=== PATIENT | male | born 1940 | race Caucasian/White ===

== ENCOUNTER → 2016-09-28 | Outpatient (CLI) | payer BC ==
[~2016-09-28] MED LIST: ACLI1AER3 INH; AFRINWC; ALBINS/ INH; ALBU0.08 INH; ALBUAER19 INH; AMIO200T PO; AMOX875T PO; APIX1TAB3 PO; ARFO15NE INH; ASPEC81 PO; ASPI81TA28 PO; BRVIN INH; CEPH500C PO; CHOL1TAB42 PO; CHOL200010 PO; DXY100 PO; ESCI10TA17 PO; ESCI5TAB PO; FEXO1TAB46 PO; FLM4 PO; FURO-85 PO; GFNSR600 PO; GLC/500 PO; GLIM1TAB2 PO; GLUCTAB18 PO; HYDR-5688 PO; LEVO75TA5 PO; MCRK20 PO; MGNO400 PO; MOME6000 NAE; MRLP17X PO; MULTTAB5 PO; NSNN50 NAE; OMEP20TA PO; OXGN; OXYC1TAB3 PO; PHEN-1042 PO; PLMINSR25 INH; POLY1POW2 PO; POTTAB2 PO; PRD20 PO; PRED-301 PO; PRED10TA PO; PRVHFAIN INH; SIMV80TA2 PO; SYN75 PO; TAMS0.4C38 PO
--- NOTE | 2016-09-28 15:55 | DIAGNOSTIC IMAGING REPORT ---
TWO VIEW CHEST CLINICAL HISTORY: Cough. Dyspnea. FINDINGS: PA and lateral chest radiographs are compared to study dated 12/09/2015 and correlated with chest CT dated 12/01/2015. The PA view is degraded by patient rotation. The heart is enlarged and there is atherosclerotic calcification of the thoracic aorta. The pulmonary vasculature is noncongested. Mild chronic interstitial thickening and scarring at the right lung base are similar to previous. There is a small right pleural effusion. The lungs and pleural spaces are otherwise clear. There is no pneumothorax. The skeletal structures are osteopenic. Degenerative change is noted throughout the thoracic spine. IMPRESSION: 1. Cardiomegaly without radiographic evidence of congestive failure. 2. A small right pleural effusion with chronic change at the right lung base is similar to previous. 3. There is no airspace consolidation typical for pneumonia. Electronically signed by: Fausto Donovan M.D. 09/28/2016 3:53 PM Dictated Date/Time: 09/28/2016 3:51 PM
== END | disposition home or self-care (01) ==
LOC: C.RAD 15:13
PROVIDERS: ATTEND Internal Medicine Pulmonary Disease
DX: R05 Cough (principal)

== ENCOUNTER 2016-09-29 14:11 | Inpatient (IN) | payer BC, OTHER ==
[2016-09-29] VITALS (11 sets, daily range): BP systolic 120–133; BP diastolic 51–70; PULSE 74–87; TEMP 36.5–37; O2SAT 94–99; Ht 182.9 cm; Wt 83.6 kg
[~2016-09-29] VITALS: Ht 182.9 cm; Wt 83.6 kg
[~2016-09-29 14:11] MED LIST changes: -ALBINS/ INH; -ARFO15NE INH; -ASPEC81 PO; -ASPI81TA28 PO; -CEPH500C PO; -CHOL200010 PO; -DXY100 PO; -ESCI10TA17 PO; -FEXO1TAB46 PO; -FLM4 PO; -FURO-85 PO; -GFNSR600 PO; -GLC/500 PO; -HYDR-5688 PO; -LEVO75TA5 PO; -MCRK20 PO; -MGNO400 PO; -MOME6000 NAE; -MULTTAB5 PO; -OMEP20TA PO; -OXGN; -POLY1POW2 PO; -POTTAB2 PO; -PRD20 PO; -PRED-301 PO; -PRVHFAIN INH; -SIMV80TA2 PO; -SYN75 PO
[2016-09-29 15:46] LABS: INR 1.1 (0.9-1.1); PROTHROMBIN TIME (PATIENT) 11.3 SECONDS (9.0-12.0)
[2016-09-29] MEDS ORDERED: ARFO15NE INH (16:00)
[2016-09-29] MEDS ORDERED: ALBINS/ INH (16:00)
[2016-09-29] MEDS ORDERED: CHOL200010 PO (16:00)
[2016-09-29] MEDS ORDERED: POLY1POW2 PO (16:00)
[2016-09-29] MEDS ORDERED: MOME6000 NAE (16:00)
[2016-09-29] MEDS ORDERED: PRVHFAIN INH (16:00)
[2016-09-29] MEDS ORDERED: MULTTAB5 PO (16:41)
[2016-09-29] MEDS ORDERED: FEXO1TAB46 PO (16:41)
[2016-09-29] MEDS ORDERED: GLC/500 PO (16:49)
[2016-09-29] MEDS ORDERED: OMEP20TA PO (16:53)
[2016-09-29] MEDS ORDERED: FURO-85 PO (17:02)
[2016-09-29] MEDS ORDERED: ONDANSETRON INJ 2 MG/ML 2 ML VIAL IV PRN (17:15)
[2016-09-29] MEDS ORDERED: POLYETHYLENE (MIRALAX) 17 GM PACK PO PRN (17:15)
[2016-09-29] MEDS ORDERED: ALBUTEROL 0.083% NEBU SOLN 3 ML VIAL INH PRN (17:15)
[2016-09-29] MEDS ORDERED: BUDESONIDE 0.25 MG/2 ML VIAL (PULMICORT) INH PRN (17:15)
[2016-09-29] MEDS ORDERED: ALBUTEROL HFA 8 GM INHALER INH PRN (17:15)
[2016-09-29] MEDS ORDERED: DEXTROSE 50% 50 ML SYR IV PRN (17:15)
[2016-09-29] MEDS ORDERED: GLUCOSE 40% GEL 15 GM TUBE PO PRN (17:15)
[2016-09-29] MEDS ORDERED: MAGNESIUM HYDROXIDE SUSP 30 ML UDC PO PRN (17:15)
[2016-09-29] MEDS ORDERED: GLUCAGON FOR INJ 1 MG VIAL SQ PRN (17:15)
[2016-09-29] MEDS ORDERED: FUROSEMIDE 20 MG TAB PO PRN (17:15)
[2016-09-29] MEDS ORDERED: ACETAMINOPHEN 325 MG TAB PO PRN (17:15)
[2016-09-29] MEDS ORDERED: FLUTICASONE PROPIONATE NA SPR 16 GM BTL NAE PRN (17:15)
[2016-09-29] MEDS ORDERED: GLUCOSE 10 TABS/TUBE PO PRN (17:15)
[2016-09-29] MEDS ORDERED: FEXOFENADINE HCL 180 MG TAB PO PRN (17:15)
[2016-09-29] MEDS ORDERED: SIMV80TA2 PO (17:32)
--- NOTE | 2016-09-29 18:50 | History and Physical ---
History & Physical Date & Time of Service: Sep 29, 2016 at 18:47 Chief Complaint: Abnormal Labs Primary Care Physician: Artis Gunderson M.D. History of Present Illness Source: patient, family 76 y/o M with PMH of COPD, DM, atrial fibrillation, renal colic here after he was advised to go to the ER by his Arabic Linguist's office after his hgb was found to be 6.4 from lab work they ordered this morning. He states that he has been feeling "weak and fuzzy" for several weeks now with increased tiredness. He also felt lightheaded on several occasions about the same time. He however denied any chest pain, palpitations, he does have SOB and has a baseline h/o COPD . He denies any N/V/abdominal pain/BRBPR/melena/ hematuria. He takes eliquis for atrial fibrillation and last dose was this morning. He had a colonoscopy about an year or more ago at which time he had 10 polyps removed. He also has a h/o kidney stones but denied any hematuria. He has had diarrhea for couple weeks which was non bloody and is now resolved. Has a h/o heartburn and uses omeprazole. Past Medical/Surgical History Medical Problems: (1) Bronchitis Status: Chronic (2) Diabetes Status: Chronic (3) Heart disease Status: Chronic (4) Heart murmur Status: Chronic (5) Pneumonia Status: Chronic Family History FHx: cancer FHx: heart disease FHx: lung disease Social History Smoking Status: Never Smoker Drug Use: none Marital Status: Occupational Status: retired Immunizations History of Influenza Vaccine: Yes Influenza Vaccine Date: Sep 01, 2013 History of Tetanus Vaccine?: uptd History of Pneumococcal: Yes Pneumococcal Date: Sep 02, 2012 History of Hepatitis B Vaccine: No Multi-Drug Resistant Organisms History of MDRO: No Allergies Coded Allergies: Quinolones (Verified Allergy, Severe, ANAPHYLAXIS, 01/01/16) LISTED UNDER MD ORDERS, PT. VERIFIED ANAPHYLAXIS Formoterol (Verified Allergy, Intermediate, RASH, 01/01/16) LISTED UNDER MD ORDERS, PT. VERIFIED RASH ALLERGY Sulfa Antibiotics (Verified Allergy, Intermediate, severe red rash, ) Moxifloxacin (Verified Allergy, Unknown, swelling, 01/01/16) Ofloxacin (Verified Allergy, Unknown, unknown, 01/01/16) Home Medications Scheduled Aclidinium [place] (Tudorza Pressair), 1 PUFF INH BID Apixaban (Eliquis), 5 MG PO BID Arformoterol Tartrate (Brovana), 15 MCG INH BID Cholecalciferol (Vitamin D), 2,000 INTER.UNIT PO DAILY Escitalopram Oxalate (Lexapro), 2.5 MG PO HS Glimepiride (Glimepiride), 1 MG PO QAM Glucosamine-Chondroitin (Osteo Bi-Flex Regular Str), 1 TAB PO BID Metformin Hcl (Glucophage), 1,000 MG PO BID Multiple Vitamins W/ Minerals (Centrum), 1 TABLET PO QAM Omeprazole (Omeprazole), 20 MG PO QAM Prednisone Tab (Prednisone), 10 MG PO QAM Simvastatin (Zocor), 80 MG PO HS Scheduled PRN Albuterol (Ventolin Hfa), 2 PUFFS INH QID PRN for Shortness of Breath Albuterol Sulf (Proventil 0.083% 2.5MG/3ML), 2.5 MG INH Q4H PRN for SOB/Wheezing Budesonide (Pulmicort Respules 0.25MG/2ML), 2 ML INH BID PRN for Shortness of Breath Fexofenadine Hcl (Marilee), 180 MG PO DAILY PRN for Allergy Symptoms Furosemide (Lasix), 20 MG PO BID PRN for Fluid Retention/Swelling Mometasone Furoate (Nasal) (Mometasone Furoate), 2 SPRAYS VERONICA DAILY PRN for Nasal Congestion Oxymetazoline Hcl (Afrin 0.05% Nasal [place]), 1 SPRAY NA BID PRN for Nasal Congestion Polyethylene Glycol 3350 (Bulk (Polyethylene Glycol 3350), 17 GM PO DAILY PRN for Constipation Review of Systems Constitutional: + weakness, No chills, No fever Eyes: No worsening of vision ENT: + hearing loss Respiratory: + shortness of breath, No cough, No sputum Cardiovascular: No chest pain, No palpitations Abdomen: + diarrhea, No GI bleeding, No nausea, No pain, No vomiting Genitourinary - Male: No dysuria, No hematuria Psychiatric: No depression symptoms Endocrine: + fatigue Physical Exam Vital Signs Date Time Temp Pulse Resp B/P Pulse Ox O2 Delivery O2 Flow Rate FiO2 09/29/16 18:19 36.8 79 18 121/60 98 Room Air 09/29/16 18:18 80 23 98 09/29/16 18:13 121/60 09/29/16 17:58 121/60 09/29/16 17:48 82 18 99 09/29/16 17:43 37.0 84 18 121/60 98 09/29/16 17:43 128/59 09/29/16 17:28 124/60 09/29/16 17:27 36.9 80 16 124/60 99 09/29/16 17:18 83 25 98 09/29/16 17:13 36.8 82 18 120/51 94 09/29/16 17:13 126/56 09/29/16 17:11 84 22 99 09/29/16 17:10 120/51 09/29/16 16:41 84 26 99 09/29/16 16:11 81 20 97 09/29/16 15:41 81 19 96 09/29/16 15:29 138/64 09/29/16 15:21 81 09/29/16 15:11 81 17 100 09/29/16 15:05 83 22 138/64 100 Room Air 09/29/16 15:05 100 Room Air 09/29/16 15:04 138/64 09/29/16 14:18 36.5 85 16 114/63 100 Room Air General Appearance: WD/WN, no apparent distress Head: normocephalic Eyes: normal inspection ENT: normal ENT inspection, hearing grossly normal Neck: supple Respiratory/Chest: chest non-tender, no respiratory distress, no accessory muscle use Cardiovascular: regular rate, rhythm Abdomen/GI: normal bowel sounds, non tender, soft Extremities/Musculoskelatal: + pedal edema Neurologic/Psych: alert, normal mood/affect, oriented x 3 Skin: + pallor Diagnostics Laboratory Results Results Past 24 Hours Test 09/29/16 15:16 Range/Units Prothrombin Time 11.3 9.0-12.0 SECONDS Prothromb Time International Ratio 1.1 0.9-1.1 Activated Partial Thromboplast Time 24.7 21.0-31.0 SECONDS Partial Thromboplastin Ratio 1.0 Troponin I 0.016 0-0.045 ng/ml EKG Normal sinus rhythm Nonspecific ST and T wave abnormality Abnormal ECG When compared with ECG of 02-JAN-2016 09:27, No significant change Impression Assessment and Plan 76 y/o M with PMH of COPD, DM, atrial fibrillation, renal colic here with an abnormal Hemoglobin of 6.4 Acute blood loss anemia: likely GI bleed Hgb at 6.1, last hgb 01/02 was 11.5 - Hemoccult positive - NPO - Protonix 40 mg BID to cover any upper GI bleeding - GI consult - Stop eliquis - Troponin was 0.0116 - PRBC transfusion 2 units - Monitor H&H - Lasix 20 mg BID PRN Atrial fibrillation: - Rate control medication was stopped by wheel alignment technician per patint - hold eliquis COPD: stable - Continue Ventolin q6h and prednisone 10 mg daily - Proventil, Brovana, Pulmicort PRN T2DM: - Stop Metformin and Glimepiride - ISS Hyperlipidemia: Zocor 80 mg full code DVT prophylaxis: SCDS Hold chemical AC Dispo; Tele, transfusion in progress Level of Care Telemetry Resuscitation Status FULL RESUSCITATION VTE Prophylaxis VTE Risk Assessment Done? Y/N: Yes Risk Level: Moderate Given or contraindicated: SCD's Reviewed: Pt Seen/Exam by Me, EMS, RN Notes, HO Notes, Prior Records, Labs, RAD , EKG History Resident Physician Supervision Note: I was present with Dr. lentz during the history and exam. I discussed the case with the resident and agree with the findings and plan as documented in the note. Any exceptions or clarifications are listed here: 76 y/o M with PMH of COPD, DM, atrial fibrillation, renal colic here with an abnormal Hemoglobin of 6.4 Documented By: Maxim Silver Constitutional: denies: chills Respiratory: negative: cough Cardiovascular: denies chest pain Gastrointestinal/Abdominal: negative: abdominal pain Genitourinary: negative discharge Musculoskeletal: negative: back pain Neurological/Psych: negative: anxiety Hematologic/Lymphatic: negative: anemia General Appearance: WD/WN, no apparent distress Eye Exam: bilateral eye normal inspection Ears, Nose, Throat: hearing grossly normal, pharynx normal Neck: non-tender, supple Respiratory: lungs clear, normal breath sounds Cardiovascular: regular rate, rhythm, no edema Gastrointestinal: normal bowel sounds, soft Extremities: normal inspection, no calf tenderness Neurologic/Psychiatric: alert, oriented x 3 Skin Characteristics: normal color Assessment/Plan 76 y/o M with PMH of COPD, DM, atrial fibrillation, renal colic here with an abnormal Hemoglobin of 6.4 Acute blood loss anemia: likely GI bleed Hgb at 6.1, last hgb 01/02 was 11.5 Hemoccult positive NPO start Protonix 40 mg BID to cover any upper GI bleeding GI consult hold eliquis Troponin was 0.0116 PRBC transfusion 2 units Monitor H&H Lasix 20 mg BID PRN Atrial fibrillation: Rate control medication was stopped by wheel alignment technician per patint hold eliquis COPD: chronic, stable Continue Ventolin q6h and prednisone 10 mg daily Proventil, Brovana, Pulmicort PRN T2DM: Stop Metformin and Glimepiride ISS Hyperlipidemia: Zocor 80 mg full code DVT prophylaxis: SCDs Dispo; Tele case discussed with Dr Lentz PGY 1 time spent 45 min
[2016-09-29 19:01] LABS: HEMATOCRIT 20.2 % (42-52)
[2016-09-29] MEDS: ARFORMOTEROL TART 15MCG/2ML VIAL INH SCH (19:33)
[2016-09-29] MEDS: ALBUTEROL 0.083% NEBU SOLN 3 ML VIAL INH SCH (19:34)
[2016-09-29] MEDS: PANTOprazole INJ 40 MG in SYRINGE 0 ML IV SCH (21:35)
[2016-09-29] MEDS: SODIUM CHLORIDE 0.9% 1000ML 1,000 ML IV SCH (21:36)
[2016-09-29] MEDS: SIMVASTATIN 80 MG TAB PO SCH (22:05)
[2016-09-29] MEDS: INSULIN ASPART 100 UNITS/ML 3 ML PEN SC SCH (22:05)
[2016-09-29] MEDS: ESCITALOPRAM OXALATE 10 MG TAB PO SCH (22:05)
--- NOTE | 2016-09-29 22:16 | EMERGENCY ROOM VISIT NOTE ---
History Report prepared by Triston: Mckayla Mota Under the Supervision of: Dr. Epi Choe M.D. First contact with patient: 14:45 Chief Complaint: ABNORMAL LABS Stated Complaint: ABNORMAL LABS History of Present Illness The patient is a 76 year old male who presents to the Emergency Room with complaints of worsening weakness. He had blood work ordered by Dr. Castellon's office this morning, and was called early this afternoon by Ana Barragan PA-C , and told he was highly anemic. The patient states he takes daily Eliquis for a history of atrial fibrillation. He last took the Eliquis this morning. He states he feels "fuzzy and weak". His reports he has been unsteady on his feet for the past few weeks. The patient denies any recent fevers or chest pain. He is slightly short of breath, but notes this is chronic due to his history of COPD and reports Ana Barragan started him on a Prednisone taper. He admits to some recent dark stools, but denies the stool being black. His states he had diarrhea about 2 weeks ago, but it has resolved. The patient also denies any headaches, nosebleeds, hematuria or rectal bleeding. 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 A total of 10 systems reviewed and were otherwise negative. Past Medical & Surgical Medical Problems: (1) Anemia (2) Bronchitis (3) Diabetes (4) Heart disease (5) Heart murmur (6) kidney colic, nish kiendy stones (7) Pneumonia Family History FHx: cancer FHx: heart disease FHx: lung disease Social History Smoking Status: Never Smoker Alcohol Use: occasionally Drug Use: none Marital Status: Housing Status: lives with significant other Occupation Status: retired Current/Historical Medications Scheduled Aclidinium [place] (Tudorza Pressair), 1 PUFF INH BID Apixaban (Eliquis), 5 MG PO BID Arformoterol Tartrate (Brovana), 15 MCG INH BID Cholecalciferol (Vitamin D), 2,000 INTER.UNIT PO DAILY Escitalopram Oxalate (Lexapro), 2.5 MG PO HS Glimepiride (Glimepiride), 1 MG PO QAM Glucosamine-Chondroitin (Osteo Bi-Flex Regular Str), 1 TAB PO BID Metformin Hcl (Glucophage), 1,000 MG PO BID Multiple Vitamins W/ Minerals (Centrum), 1 TABLET PO QAM Omeprazole (Omeprazole), 20 MG PO QAM Prednisone Tab (Prednisone), 10 MG PO QAM Simvastatin (Zocor), 80 MG PO HS Scheduled PRN Albuterol (Ventolin Hfa), 2 PUFFS INH QID PRN for Shortness of Breath Albuterol Sulf (Proventil 0.083% 2.5MG/3ML), 2.5 MG INH Q4H PRN for SOB/Wheezing Budesonide (Pulmicort Respules 0.25MG/2ML), 2 ML INH BID PRN for Shortness of Breath Fexofenadine Hcl (Marilee), 180 MG PO DAILY PRN for Allergy Symptoms Furosemide (Lasix), 20 MG PO BID PRN for Fluid Retention/Swelling Mometasone Furoate (Nasal) (Mometasone Furoate), 2 SPRAYS VERONICA DAILY PRN for Nasal Congestion Oxymetazoline Hcl (Afrin 0.05% Nasal [place]), 1 SPRAY NA BID PRN for Nasal Congestion Polyethylene Glycol 3350 (Bulk (Polyethylene Glycol 3350), 17 GM PO DAILY PRN for Constipation Allergies Coded Allergies: Quinolones (Verified Allergy, Severe, ANAPHYLAXIS, 01/01/16) LISTED UNDER MD ORDERS, PT. VERIFIED ANAPHYLAXIS Formoterol (Verified Allergy, Intermediate, RASH, 01/01/16) LISTED UNDER MD ORDERS, PT. VERIFIED RASH ALLERGY Sulfa Antibiotics (Verified Allergy, Intermediate, severe red rash, ) Moxifloxacin (Verified Allergy, Unknown, swelling, 01/01/16) Ofloxacin (Verified Allergy, Unknown, unknown, 01/01/16) Physical Exam Vital Signs Date Time Temp Pulse Resp B/P Pulse Ox O2 Delivery O2 Flow Rate FiO2 09/29/16 17:11 84 22 99 09/29/16 17:10 120/51 09/29/16 16:41 84 26 99 09/29/16 16:11 81 20 97 09/29/16 15:41 81 19 96 09/29/16 15:29 138/64 09/29/16 15:21 81 09/29/16 15:11 81 17 100 09/29/16 15:05 83 22 138/64 100 Room Air 09/29/16 15:05 100 Room Air 09/29/16 15:04 138/64 09/29/16 14:18 36.5 85 16 114/63 100 Room Air Physical Exam Constitutional: Vital signs reviewed. Eyes: Pupils are equal round reactive to light. Conjunctiva are noninjected. ENT: Pharynx is clear without erythema or exudate. Mucous membranes are moist. Neck supple without meningeal signs. Respiratory: Clear to auscultation bilaterally. Breath sounds are equal bilaterally. Cardiovascular: Regular rate and rhythm. No rubs or gallops. GI: Soft, nondistended and nontender. Bowel sounds are present. Rectal: Guaiac positive brown stool, no gross blood. Musculoskeletal: No peripheral edema. No lower extremity tenderness. No CVA tenderness. Integumentary: No cyanosis. Neurological: The patient is awake and alert. No focal deficits. Psychiatric: Normal affect. Medical Decision & Procedures Laboratory Results 09/29/16 15:16 Test 09/29/16 15:16 Prothrombin Time 11.3 SECONDS (9.0-12.0) Prothromb Time International Ratio 1.1 (0.9-1.1) Activated Partial Thromboplast Time 24.7 SECONDS (21.0-31.0) Partial Thromboplastin Ratio 1.0 Troponin I 0.016 ng/ml (0-0.045) Laboratory results as reviewed by me. Medications Administered Medications (Trade) Dose Ordered Sig/[facility] Route Start Time Stop Time Status Last Admin Dose Admin Sodium Chloride (Nss 1000ml) 1,000 ml @ 50 mls/hr Q20H IV 09/29/16 17:06 10/29/16 17:05 09/29/16 21:36 50 MLS/HR ECG Indication: weakness Rate (beats per minute): 80 Rhythm: sinus rhythm Findings: 1st degree AV block, no ectopy, other (Limited due to baseline artifact) ED Course 1447: The patient was evaluated in room B10. A complete history and physical exam was performed. 1617: I discussed the patients case with Dr. Silver, [facility] Hospitalist. The patient will be further evaluated. 1655: I reevaluated the patient. He states the hospitalist has already evaluated him. He has no current complaints and is waiting on blood to come up from the blood bank. Medical Decision This is a 76-year-old male who presents with generalized weakness and shortness of breath with severe anemia. I did perform a limited focused review of portions of the patient's old chart on the electronic medical record. The patient had blood work at 1100 this morning and his Hemoglobin was 6.4. A previous Hemoglobin from December 2015 was 11.5. I did evaluate the patient as noted above. The patient is presenting with generalized weakness and shortness of breath. He had a hemoglobin today which was 6.4. He is on a Eliquis for atrial fibrillation and is guaiac positive with brown stool no gross blood on examination. IV access was established. The patient was placed on a continuous rn cardiac. I did order and personally review the patient's 12-lead EKG as described above. I did order and review the patient's blood work as noted in the electronic medical record. He is severely anemic. I did obtain verbal and written consent for blood transfusion. I did order a transfusion of 2 units packed RBCs. I did discuss the case with the hospitalist and special education case manager. The patient was admitted to the hospital. Consults Time Called: 1613 Consulting Physician: Dr. Silver [facility] Hospitalist Returned Call: 1617 I discussed the patients case with Dr. Silver [facility] Hospitalist. The patient will be further evaluated. Impression Primary Impression: Acute GI bleeding Additional Impressions: Symptomatic anemia Anticoagulated Critical Care I have personally spent greater than 30 minutes of critical care time in the direct management of this patient. This includes bedside care, interpretation of diagnostic studies, and testing, discussion with consultants, patient, and family members, and other required patient management activities. This 30 minutes is in excess of all separately billable procedures. Scribe Attestation The scribe's documentation has been prepared under my direct and personally reviewed by me in its entirety. I confirm that the note above accurately reflects all work, treatment, procedures, and medical decision making performed by me. Departure Information Dispostion Being Evaluated By Hospitalist Referrals Artis Gunderson M.D. (PCP) Patient Instructions [facility] Problem Qualifiers
[2016-09-29] MEDS ORDERED: NURSING VERBAL MED ORDER ONE (23:45)
[2016-09-29] MEDS ORDERED: NovoLOG PER UNIT CHARGE SC STA (23:48)
[2016-09-30] VITALS (16 sets, daily range): BP systolic 104–150; BP diastolic 62–73; PULSE 56–77; TEMP 36.4–36.8; O2SAT 95–98
[2016-09-30] MEDS: ALBUTEROL 0.083% NEBU SOLN 3 ML VIAL INH SCH ×4 (01:47→19:48)
[2016-09-30 01:48] LABS: HEMATOCRIT 24.2 % (42-52)
[2016-09-30] MEDS: ARFORMOTEROL TART 15MCG/2ML VIAL INH SCH ×2 (07:29→19:48)
[2016-09-30] MEDS: PANTOprazole INJ 40 MG in SYRINGE 0 ML IV SCH ×2 (08:08→20:37)
[2016-09-30] MEDS: INSULIN ASPART 100 UNITS/ML 3 ML PEN SC SCH ×4 (08:10→20:48)
[2016-09-30 08:43] LABS: HEMATOCRIT 27.8 % (42-52)
[2016-09-30 09:27] LABS: BUN/CREATININE RATIO 16.8 (10-20); CALCIUM 8.3 mg/dl (8.5-10.1); POTASSIUM 3.6 mmol/L (3.5-5.1)
[2016-09-30] MEDS: SODIUM CHLORIDE 0.9% 1000ML 1,000 ML IV SCH ×2 (13:11→22:16)
--- NOTE | 2016-09-30 13:33 | GASTROINTESTINAL CONSULTATION ---
DATE OF CONSULTATION: 09/30/2016 DATE OF CONSULTATION: 09/30/2016. ATTENDING PHYSICIAN: Dr. Platt. CONSULTING PHYSICIAN: Dr. Brooke. REASON FOR CONSULTATION: Anemia and heme positive stool. HISTORY OF PRESENT ILLNESS: Mr. Gibson is a 76-year-old male who I have seen previously and performed an upper endoscopy on 05/07/2012 at which time he was noted to have gastritis, hiatal hernia, and nonobstructing Schatzki's ring which was disrupted with cold forceps. He did have biopsies performed at that time which showed mild nonspecific chronic active esophagitis as well as chronic gastritis but no evidence of H. pylori. He also underwent a colonoscopy on 07/29/2015, at which time he was noted to have 10 sessile polyps removed in the rectum, sigmoid colon, transverse colon, ascending colon and cecum as well as some nonbleeding internal hemorrhoids. Pathology from his colonoscopy showed multiple tubular adenomas and a serrated adenoma and he had no other findings. He presented to the Department of Emergency Medicine on 09/29/2016 after he was noted to have a low hemoglobin from outpatient laboratory studies at his surgical coder's office where he was noted to have a hemoglobin of 6.4. He was advised by his pulmonary doctor to present to the ER. Upon arrival to the ER, he did have heme positive stool noted and was transfused with 3 units of packed red blood cells with good response to today's level of H\T\H of 8.8 and 27.8 . The patient states that he is feeling much better. He has not noted any bright red blood per rectum or hematemesis, though he has had dark stools. His , who accompanies him to this hospitalization, states that he has had some diarrhea as well as some general abdominal pain in the midepigastric region over the last month or so for which he has taken some Pepto-Bismol and states that of course his stools have been black from that. The patient states that his epigastric pain has been mild, rated as 3-4/10 in intensity, intermittent, occurring 4-5 times per week, nonradiating with no alleviating or exacerbating factors. Since his arrival to the ER, he was placed on Protonix 40 mg IV b.i.d. As an outpatient it should be noted that he does take Eliquis therapy 5 mg p.o. b.i.d. He denies any further complaints at this time including fevers, chills, nausea, vomiting, hematemesis, melena, hematochezia, chest pain, palpitations, shortness of breath, cough, dysuria, hematuria, arthralgia, myalgias, numbness or tingling in his extremities, skin rash or recent weight loss. He states that overall he is feeling improved. PAST MEDICAL HISTORY: Includes bronchitis, diabetes, pneumonia, history of atrial fibrillation, COPD, colon polyps, gastritis, GERD. PAST SURGICAL HISTORY: None. ALLERGIES: QUINOLONES, FORMOTEROL, SULFA ANTIBIOTICS, AVELOX, OFLOXACIN. MEDICATIONS AT PRESENT: Include prednisone 10 mg p.o. q.a.m., Lexapro 2.5 mg p.o. at bedtime, Zocor 80 mg p.o. at bedtime, Protonix 40 mg IV b.i.d., Ventolin 2.5 mg via nebulizer q. 6 hours p.r.n., Brovana 15 mcg via nebulizer twice daily p.r.n., milk of magnesia 30 mL p.o. q. 12 p.r.n. constipation, Zofran 4 mg IV q. 6 p.r.n. nausea, MiraLax 17 grams p.o. daily p.r.n. constipation, Ventolin inhaler p.r.n., budesonide Respules via nebulizer b.i.d. p.r.n. shortness of breath, Marilee 8180 mg p.o. daily, Lasix 20 mg p.o. b.i.d. p.r.n. fluid retention. SOCIAL HISTORY: He is accompanied by his to this visit. No tobacco, alcohol or illicit drug use. FAMILY HISTORY: Negative for GI malignancy or inflammatory bowel disease. REVIEW OF SYSTEMS: Negative x12 system review other than pertinent positives listed in the HPI. PHYSICAL EXAMINATION: VITAL SIGNS: Today include a temp of 36.7, pulse 77, respirations 16, blood pressure 124/69, pulse ox 96% on room air. GENERAL EXAMINATION: He is awake, cooperative in no acute distress. HEAD: Normocephalic, atraumatic. EYES: Pupils equally round. Extraocular muscles are intact. EARS, NOSE, THROAT: External evaluation of ears and nose are normal. Oropharynx is clear. NECK: Soft and supple. There is no JVD or lymphadenopathy. CHEST: Clear to auscultation bilaterally. CARDIOVASCULAR SYSTEM: Regular rate and rhythm. ABDOMEN: Soft, nontender, nondistended. Positive bowel sounds. There is no hepatosplenomegaly or stigmata of chronic liver disease. EXTREMITIES: No clubbing, cyanosis, or edema. LABORATORY STUDIES: From today include an H\T\H of 8.8 and 27.8. His sodium is 143, potassium 3.6, chloride 109, bicarbonate 23, BUN 17, creatinine 1.0, blood glucose 165, calcium 8.3, total bilirubin 0.3, AST 7, ALT 22, alkaline phosphatase of 51. IMPRESSION: This is a 76-year-old male with acute blood loss anemia with heme positive stool. He is having no overt GI bleeding at this time and has had an appropriate response to 3 units of packed red blood cells in transfusion. PLAN: At the present time, Mr. Gibson does not wish to undergo an invasive test such as an EGD or colonoscopy. I informed him that this may delay his diagnosis, though he states that he would rather not unless it is absolutely necessary. I informed him that we will keep him on Protonix 40 mg IV b.i.d. I also told him that if he has any overt GI bleeding I would strongly recommend that he undergo both an EGD and colonoscopy for further evaluation of his symptoms though at present he would like to see if his numbers improve with conservative measures. I will follow his clinical course and make further recommendations as needed. Once again, thank you for allowing me to participate in the care of this patient. If you have any further questions, please do not hesitate in contacting me.
--- NOTE | 2016-09-30 16:39 | Family Medicine Progress Note ---
Progress Note Date of Service Sep 30, 2016. Subjective no concerns no rectal bleeding Constitutional: No fever Respiratory: No shortness of breath Cardiovascular: No chest pain Objective Physical Exam General Appearance: no apparent distress Respiratory/Chest: lungs clear, no respiratory distress Cardiovascular: regular rate, rhythm Neurologic/Psychiatric: alert, oriented x 3 Skin: warm/dry Assessment and Plan 76 y/o M with PMH of COPD, DM, atrial fibrillation, renal colic here with an abnormal Hemoglobin of 6.4 Acute blood loss anemia with Hemoccult positive: likely GI bleed last hgb 01/02 was 11.5 - Protonix 40 mg BID to cover any upper GI bleeding - Holding eliquis - s/p PRBC transfusion 2 units - GI consulted - input appreciated - Patient declining endoscopy at this time - to have clears. - Monitor H&H Atrial fibrillation: - Rate control medication was stopped by auger operator per patint - hold eliquis COPD: stable - Continue Ventolin q6h and prednisone 10 mg daily - Proventil, Brovana, Pulmicort PRN T2DM: - Holding Metformin and Glimepiride - ISS Hyperlipidemia: Zocor 80 mg full code DVT prophylaxis: SCDS Hold chemical AC
[2016-09-30] MEDS: ESCITALOPRAM OXALATE 10 MG TAB PO SCH (20:37)
[2016-09-30] MEDS: SIMVASTATIN 80 MG TAB PO SCH (20:37)
[2016-10-01] VITALS (13 sets, daily range): BP systolic 119–152; BP diastolic 67–81; PULSE 57–80; TEMP 36.6–36.7; O2SAT 94–97
[2016-10-01] MEDS: ALBUTEROL 0.083% NEBU SOLN 3 ML VIAL INH SCH ×4 (02:06→19:43)
[2016-10-01] MEDS: INSULIN ASPART 100 UNITS/ML 3 ML PEN SC SCH ×4 (07:00→22:14)
[2016-10-01] MEDS: ARFORMOTEROL TART 15MCG/2ML VIAL INH SCH ×2 (07:02→19:43)
[2016-10-01] MEDS: PANTOprazole INJ 40 MG in SYRINGE 0 ML IV SCH ×2 (07:46→22:12)
[2016-10-01] MEDS: SODIUM CHLORIDE 0.9% 1000ML 1,000 ML IV SCH (07:46)
[2016-10-01 09:25] LABS: BASO % 0.2 %; BASO ABS # 0.02 K/uL (0-0.2); COMPLETE YES; EOS % 1.4 %; HEMATOCRIT 29.3 % (42-52); IG% 0.7 %; LYMPH % 13.4 %; LYMPH ABS # 1.65 K/uL (1.2-3.4); MEAN CELL VOLUME 82.8 fL (80-100); MEAN CORPUSCULAR HGB CONC 31.4 g/dl (32-36); MEAN PLATELET VOLUME 9.8 fL (7.4-10.4); MONO % 8.7 %; NEUT % 75.6 %; PLATELET COUNT 238 K/uL (130-400); RED BLOOD COUNT 3.54 M/uL (4.7-6.1); WHITE BLOOD COUNT 12.29 K/uL (4.8-10.8)
[2016-10-01 10:04] LABS: CALCIUM 8.2 mg/dl (8.5-10.1); CREATININE 0.97 mg/dl (0.60-1.40); POTASSIUM 3.3 mmol/L (3.5-5.1)
--- NOTE | 2016-10-01 13:56 | PROGRESS NOTE ---
DATE: 10/01/2016 GASTROINTESTINAL PROGRESS NOTE SEX: Male. RACE: . I had the pleasure of seeing Maninder Gibson at his bedside today. He states that he is feeling better today. He denies any fevers, chills, nausea, vomiting, hematemesis, melena or hematochezia. His H\T\H this morning was stable at 9.2 and 29.3 and he has had no overt GI bleeding per the patient or nursing staff. He is tolerating p.o. intake at this time. He denies any further complaints. PHYSICAL EXAMINATION: VITAL SIGNS: Temp 36.6, pulse 60, respirations 16, blood pressure 119/70, pulse ox 95% on room air. GENERAL: He is alert, oriented x3, cooperative, chronic ill appearing, in no acute distress. ABDOMEN: Soft, nontender, nondistended. Positive bowel sounds. There is no hepatosplenomegaly or stigmata of chronic liver disease. EXTREMITIES: No clubbing, cyanosis, or edema. LABORATORY STUDIES: Include a white blood cell count of 12.29, hemoglobin 9.2, hematocrit 29.3 and a platelet count of 238. IMPRESSION: This is a 76-year-old male with acute blood loss anemia, heme positive stool, but no overt gastrointestinal bleeding at present with stable hemoglobin. PLAN: At the present time, I would recommend that the patient undergo an upper endoscopy to rule out upper GI bleeding. He has agreed to this. We will continue him on Protonix 40 mg IV b.i.d. We will keep him n.p.o. after midnight, perform an EGD tomorrow and make further recommendations at that time. Once again, thanks for allowing me to participate in the care of this patient. If you have any further questions, please do not hesitate in contacting me.
--- NOTE | 2016-10-01 16:46 | Progress Note ---
Subjective Date of Service: Oct 01, 2016. Subjective no new concerns Problem List Medical Problems: (1) Acute GI bleeding Status: Acute (2) Anticoagulated Status: Acute (3) Calculus of right kidney Status: Acute (4) Hydronephrosis with urinary obstruction due to renal calculus Status: Acute (5) Renal colic Status: Acute (6) Right flank pain Status: Acute (7) Right flank pain Status: Acute (8) Symptomatic anemia Status: Acute Review of Systems Constitutional: No fever Respiratory: No shortness of breath Cardiac: No chest pain Abdomen: No GI bleeding, No pain Objective Vital Signs Date Time Temp Pulse Resp B/P Pulse Ox O2 Delivery O2 Flow Rate FiO2 10/01/16 16:00 Room Air 10/01/16 14:59 36.7 72 19 127/73 97 Room Air 10/01/16 14:02 80 16 96 Room Air 10/01/16 12:30 36.6 76 20 152/81 97 Room Air 10/01/16 12:00 95 Room Air 10/01/16 08:00 95 Room Air 10/01/16 07:25 36.6 60 16 119/70 95 Room Air 10/01/16 07:03 77 16 96 Room Air 10/01/16 04:00 Room Air 10/01/16 03:33 36.6 63 16 131/67 95 Room Air 10/01/16 02:06 57 16 97 Room Air 09/30/16 23:59 Room Air 09/30/16 23:54 36.5 56 18 104/66 97 Room Air 09/30/16 20:00 Room Air 09/30/16 19:49 60 16 96 Room Air 09/30/16 19:40 36.5 60 18 123/73 98 Room Air Physical Exam General Appearance: no apparent distress Respiratory/Chest: lungs clear, no respiratory distress Cardiovascular: regular rate, rhythm Abdomen: normal bowel sounds, non tender, soft Neurologic/Psychiatric: alert, oriented x 3 Skin: warm/dry Laboratory Results Last 24 Hours Test 09/30/16 20:27 10/01/16 06:55 10/01/16 09:03 10/01/16 11:16 Bedside Glucose 235 mg/dl 128 mg/dl 198 mg/dl White Blood Count 12.29 K/uL Red Blood Count 3.54 M/uL Hemoglobin 9.2 g/dL Hematocrit 29.3 % Mean Corpuscular Volume 82.8 fL Mean Corpuscular Hemoglobin 26.0 pg Mean Corpuscular Hemoglobin Concent 31.4 g/dl Platelet Count 238 K/uL Mean Platelet Volume 9.8 fL Neutrophils (%) (Auto) 75.6 % Lymphocytes (%) (Auto) 13.4 % Monocytes (%) (Auto) 8.7 % Eosinophils (%) (Auto) 1.4 % Basophils (%) (Auto) 0.2 % Neutrophils # (Auto) 9.29 K/uL Lymphocytes # (Auto) 1.65 K/uL Monocytes # (Auto) 1.07 K/uL Eosinophils # (Auto) 0.17 K/uL Basophils # (Auto) 0.02 K/uL RDW Standard Deviation 48.3 fL RDW Coefficient of Variation 16.0 % Immature Granulocyte % (Auto) 0.7 % Immature Granulocyte # (Auto) 0.09 K/uL Sodium Level 143 mmol/L Potassium Level 3.3 mmol/L Chloride Level 109 mmol/L Carbon Dioxide Level 21 mmol/L Anion Gap 13.0 mmol/L Blood Urea Nitrogen 13 mg/dl Creatinine 0.97 mg/dl Est Creatinine Clear Calc Drug Dose 68.9 ml/min Estimated GFR () 86.3 Estimated GFR (Non- 74.5 BUN/Creatinine Ratio 13.0 Random Glucose 220 mg/dl Calcium Level 8.2 mg/dl Test 10/01/16 15:38 Bedside Glucose 254 mg/dl Assessment and Plan 76 y/o M with PMH of COPD, DM, atrial fibrillation, renal colic here with an abnormal Hemoglobin of 6.4 Acute blood loss anemia with Hemoccult positive: likely GI bleed last hgb 01/02 was 11.5 - Protonix 40 mg BID to cover any upper GI bleeding - Holding eliquis - s/p PRBC transfusion 2 units - GI consulted - input appreciated - for EGD in am - clear diet. - H&H stable P Atrial fibrillation: currently in sinus - Rate control medication was stopped by can maker per patint - hold eliquis COPD: stable - Continue Ventolin q6h and prednisone 10 mg daily - Proventil, Brovana, Pulmicort PRN T2DM: - Holding Metformin and Glimepiride - ISS Hyperlipidemia: Zocor 80 mg full code DVT prophylaxis: SCDS Hold chemical AC
[2016-10-01] MEDS: ESCITALOPRAM OXALATE 10 MG TAB PO SCH (22:13)
[2016-10-01] MEDS: SIMVASTATIN 80 MG TAB PO SCH (22:13)
[2016-10-02] VITALS (9 sets, daily range): BP systolic 115–144; BP diastolic 61–73; PULSE 65–74; TEMP 36.5–37.1; O2SAT 92–97
[2016-10-02] MEDS: ALBUTEROL 0.083% NEBU SOLN 3 ML VIAL INH SCH ×4 (02:13→19:12)
[2016-10-02] MEDS: SODIUM CHLORIDE 0.9% 1000ML 1,000 ML IV SCH (05:06)
[2016-10-02 06:28] LABS: BASO % 0.2 %; BASO ABS # 0.02 K/uL (0-0.2); COMPLETE YES; EOS % 1.9 %; HEMATOCRIT 28.8 % (42-52); IG% 0.6 %; LYMPH % 15.5 %; LYMPH ABS # 1.88 K/uL (1.2-3.4); MEAN CELL VOLUME 81.8 fL (80-100); MEAN CORPUSCULAR HEMOGLOBIN 26.4 pg (25-34); MEAN CORPUSCULAR HGB CONC 32.3 g/dl (32-36); MEAN PLATELET VOLUME 9.7 fL (7.4-10.4); NEUT % 70.8 %; PLATELET COUNT 228 K/uL (130-400); RED BLOOD COUNT 3.52 M/uL (4.7-6.1); WHITE BLOOD COUNT 12.16 K/uL (4.8-10.8)
[2016-10-02] MEDS: INSULIN ASPART 100 UNITS/ML 3 ML PEN SC SCH ×4 (07:00→20:46)
[2016-10-02] MEDS: ARFORMOTEROL TART 15MCG/2ML VIAL INH SCH ×2 (07:14→19:13)
[2016-10-02 07:48] LABS: BUN/CREATININE RATIO 11.1 (10-20); CALCIUM 7.8 mg/dl (8.5-10.1); CREATININE 0.83 mg/dl (0.60-1.40); POTASSIUM 3.5 mmol/L (3.5-5.1)
[2016-10-02] MEDS: PANTOprazole INJ 40 MG in SYRINGE 0 ML IV SCH ×2 (09:43→20:47)
--- NOTE | 2016-10-02 10:17 | Family Medicine Progress Note ---
Progress Note Date of Service Oct 02, 2016. Subjective Pt evaluation today including: conversation w/ patient, physical exam, chart review, lab review, review of studies, review of inpatient medication list Voiding: no voiding problems Mr Gibson has now had three units of PRBCs and feels much better after this. He is currently NPO awaiting EGD this morning. He denies any chest pain, dizziness or shortness of breath. He feels back to his usual self and looking forward to eating after the EGD. No BM since admission, denies nausea, vomiting , abdominal pain, constipation or diarrhea. All Other Systems: Reviewed and Negative Medications Current Inpatient Medications Medications (Trade) Dose Ordered Sig/Clair Route Start Time Stop Time Status Last Admin Dose Admin Sodium Chloride (Nss 1000ml) 1,000 ml @ 50 mls/hr Q20H IV 09/29/16 17:06 10/29/16 17:05 10/02/16 05:06 50 MLS/HR Acetaminophen (Tylenol Tab) 650 mg Q4H PRN PO 09/29/16 17:15 10/29/16 17:14 Magnesium Hydroxide (Milk Of Magnesia Susp) 30 ml Q12H PRN PO 09/29/16 17:15 10/29/16 17:14 Ondansetron HCl (Zofran Inj) 4 mg Q6H PRN IV 09/29/16 17:15 10/29/16 17:14 Polyethylene (Miralax Powder Packet) 17 gm DAILY PRN PO 09/29/16 17:15 10/29/16 17:14 Albuterol (Ventolin Hfa Inhaler) 2 puffs QID PRN INH 09/29/16 17:15 10/29/16 17:14 Arformoterol Tartrate (Brovana 15MCG/ 2ML Neb Soln) 15 mcg BIDR INH 09/29/16 20:00 10/29/16 20:59 10/02/16 07:14 15 MCG Budesonide (Pulmicort Respules 0.25MG/ 2ML Neb Soln) 0.5 mg BID PRN INH 09/29/16 17:15 10/29/16 17:14 Escitalopram Oxalate (Lexapro Tab) 2.5 mg HS PO 09/29/16 21:00 10/29/16 20:59 10/01/16 22:13 2.5 MG Fexofenadine HCl (Marilee Tab) 180 mg DAILY PRN PO 09/29/16 17:15 10/29/16 17:14 Furosemide (Lasix Tab) 20 mg BID17 PRN PO 09/29/16 17:15 10/29/16 17:14 Prednisone (PredniSONE TAB) 10 mg QAM PO 09/30/16 09:00 10/30/16 08:59 10/01/16 07:46 10 MG Simvastatin (Zocor Tab) 80 mg HS PO 09/29/16 21:00 10/29/16 20:59 10/01/16 22:13 80 MG Miscellaneous Information (Order Awaiting Action) 1 ea QS N/A 09/30/16 00:00 10/30/16 00:00 Fluticasone Propionate (Flonase Nasal Clay) 2 sprays DAILY PRN VERONICA 09/29/16 17:15 10/29/16 17:14 Insulin Aspart (novoLOG ASPART) SLIDING SCALE If C... ACHS SC 09/29/16 21:00 10/29/16 20:59 10/01/16 22:14 3 UNITS Glucose (Glucose 40% Gel) 15-30 GRAMS 15 GRAMS... UD PRN PO 09/29/16 17:15 10/29/16 17:14 Glucose (Glucose Chew Tab) 4-8 Tablets 4 Tabl... UD PRN PO 09/29/16 17:15 10/29/16 17:14 Dextrose (Dextrose 50% 50ML Syringe) 25-50ML OF 50% DW IV FOR... UD PRN IV 09/29/16 17:15 10/29/16 17:14 Glucagon 1 mg 1 mg UD PRN SQ 09/29/16 17:15 10/29/16 17:14 Pantoprazole Sodium/Syringe (Protonix Inj/ Syringe) 10 ml @ 5 mls/min DAILY@ IV 09/29/16 21:00 10/29/16 20:59 10/02/16 09:43 5 MLS/MIN Albuterol Sulfate (Ventolin 0.083% 2.5MG/3ML Neb) 2.5 mg Q6R INH 09/29/16 21:00 10/29/16 20:59 10/01/16 14:02 2.5 MG Objective Vital Signs Date Time Temp Pulse Resp B/P Pulse Ox O2 Delivery O2 Flow Rate FiO2 10/02/16 08:00 Room Air 10/02/16 07:14 73 16 92 Room Air 10/02/16 04:31 36.5 65 18 115/61 97 Room Air 10/02/16 04:00 Room Air 10/01/16 23:59 Room Air 10/01/16 23:26 36.7 60 18 130/71 97 Room Air 10/01/16 20:00 95 Room Air 10/01/16 19:44 61 16 94 Room Air 10/01/16 19:23 36.6 62 20 122/71 96 Room Air 10/01/16 16:00 Room Air 10/01/16 14:59 36.7 72 19 127/73 97 Room Air 10/01/16 14:02 80 16 96 Room Air 10/01/16 12:30 36.6 76 20 152/81 97 Room Air 10/01/16 12:00 95 Room Air Physical Exam General Appearance: WD/WN, no apparent distress Eyes: normal inspection, PERRL, EOMI ENT: normal ENT inspection (external), hearing grossly normal, pharynx normal Neck: supple, no JVD Respiratory/Chest: chest non-tender, lungs clear, normal breath sounds, no respiratory distress, no accessory muscle use Cardiovascular: regular rate, rhythm, no murmur Abdomen: normal bowel sounds, non tender, soft Laboratory Results 10/02/16 06:02 Red Blood Count 3.52, Mean Corpuscular Volume 81.8, Mean Corpuscular Hemoglobin 26.4, Mean Corpuscular Hemoglobin Concent 32.3, Mean Platelet Volume 9.7, Neutrophils (%) (Auto) 70.8, Lymphocytes (%) (Auto) 15.5, Monocytes (%) (Auto) 11.0, Eosinophils (%) (Auto) 1.9, Basophils (%) (Auto) 0.2, Neutrophils # (Auto ) 8.62, Lymphocytes # (Auto) 1.88, Monocytes # (Auto) 1.34, Eosinophils # (Auto ) 0.23, Basophils # (Auto) 0.02 10/02/16 06:02 Test 10/02/16 06:02 10/02/16 06:40 White Blood Count 12.16 K/uL (4.8-10.8) Red Blood Count 3.52 M/uL (4.7-6.1) Hemoglobin 9.3 g/dL (14.0-18.0) Hematocrit 28.8 % (42-52) Mean Corpuscular Volume 81.8 fL (80-100) Mean Corpuscular Hemoglobin 26.4 pg (25-34) Mean Corpuscular Hemoglobin Concent 32.3 g/dl (32-36) Platelet Count 228 K/uL (130-400) Mean Platelet Volume 9.7 fL (7.4-10.4) Neutrophils (%) (Auto) 70.8 % Lymphocytes (%) (Auto) 15.5 % Monocytes (%) (Auto) 11.0 % Eosinophils (%) (Auto) 1.9 % Basophils (%) (Auto) 0.2 % Neutrophils # (Auto) 8.62 K/uL (1.4-6.5) Lymphocytes # (Auto) 1.88 K/uL (1.2-3.4) Monocytes # (Auto) 1.34 K/uL (0.11-0.59) Eosinophils # (Auto) 0.23 K/uL (0-0.5) Basophils # (Auto) 0.02 K/uL (0-0.2) RDW Standard Deviation 47.2 fL (36.4-46.3) RDW Coefficient of Variation 15.9 % (11.5-14.5) Immature Granulocyte % (Auto) 0.6 % Immature Granulocyte # (Auto) 0.07 K/uL (0.00-0.02) Anion Gap 10.0 mmol/L (3-11) Est Creatinine Clear Calc Drug Dose 80.5 ml/min Estimated GFR () 97.7 Estimated GFR (Non- 84.3 BUN/Creatinine Ratio 11.1 (10-20) Calcium Level 7.8 mg/dl (8.5-10.1) Bedside Glucose 104 mg/dl (70-99) Assessment and Plan 76 y/o M with PMHx of COPD, DM, atrial fibrillation, nephrolithiasis, hypothyroidism, hyperlipidemia, sleep apnea admitted after lab work for chest tightness (though to be due to COPD exacerbation) showed Hgb 6.4. Acute blood loss anemia - Hemoccult positive: likely GI bleed. Last O/P hgb was 11.5 - s/p x3 PRBCs - Protonix 40 mg BID for cover UGI bleed - Holding eliquis - s/p PRBC transfusion 2 units - H&H stable - Awaiting EGD - Colonoscopy Jul 2015 - multiple polyps removed; multiple tubular adenomas and a serrated adenoma Paroxysmal Atrial Flutter: - 1 episode converted with amiodarone stopped by Dr Escudero in February 2016. Currently in sinus rhythm - hold eliquis due to GI bleed COPD: stable - Continue Ventolin q6h and prednisone 10 mg daily (chronic use) - Proventil, Brovana, Pulmicort PRN T2DM: - Holding Metformin and Glimepiride - ISS aim 140-180, correction 40, carb ratio 10:1 - 12 units 10/01. Hyperlipidemia: Zocor 80 mg Sleep apnea - non compliant with CPAP Hypothyroidism - Levothyroxine 100 mcg started while on amiodarone. Recent TSH 09/29/16 0.402. Will decrease to 75 mcg since he is no longer on amiodarone so suspect he will need decreasing doses. Code - Full VTE prophylaxis - chemical contraindicated due to suspected GI bleed. SCDs + TEDs Disposition - Continued inpatient stay due to awaiting EGD +/- colonoscopy Attending Attestation: Pt seen/examined, chart reviewed, care plan d/w PGY2 Dr. Tarik Lindquist. I agree w/ the pleitez components of his documentation with the following exceptions - none. No complaints during my visit. I saw him post-EGD and he tolerated clear liquids w/o difficulty. Has mild wheezing but this is at baseline. No sob. No BRBPR or melena. VSS, afebrile gen - NAD heart - RRR, s1, s2 lungs - very mild end-exp wheeze b/l; no rales; decreased bs throughout abd - soft, NT, ND, BS+ ext - no edema Hb 9.3 Cr 0.8 Na 146 A/P: 1. acute blood loss anemia; negative EGD today (ie no source for bleeding); thus - colonoscopy in AM; prep tonight 2. h/o a. fib - remains in NSR; anticoagulation stopped 2nd to #1. 3. GI bleeding - colonoscopy in AM. H/H stable suggesting bleed has stopped. 4. COPD - stable in room air. 5. T2DM - controlled. Jemma AUGUSTIN MD Resident Tracking Resident Involvement: Resident Care Provided Care Provided: Adult Hospital Medicine
[2016-10-02] MEDS ORDERED: EpHEDrine SULFATE INJ 50 MG/ML AMP IV PRN (15:15)
[2016-10-02] MEDS ORDERED: ATROPINE SULFATE 0.1 MG/ML 5ML SYR IV PRN (15:15)
--- NOTE | 2016-10-02 15:37 | GI REPORT ---
Procedure Date: 10/02/2016 3:10 PM Procedure: Upper GI endoscopy Indications: Acute post hemorrhagic anemia Medicines: Monitored Anesthesia Care Complications: No immediate complications. Estimated Blood Loss: Estimated blood loss: none. Procedure: Pre-Anesthesia Assessment: - Prior to the procedure, a History and Physical was performed, and patient medications and allergies were reviewed. The patient's tolerance of previous anesthesia was also reviewed. The risks and benefits of the procedure and the sedation options and risks were discussed with the patient. All questions were answered, and informed consent was obtained. Prior Anticoagulants: The patient has taken Eliquis (apixaban), last dose was 3 days prior to procedure. ASA Grade Assessment: IV - A patient with severe systemic disease that is a constant threat to life. After reviewing the risks and benefits, the patient was deemed in satisfactory condition to undergo the procedure. After obtaining informed consent, the endoscope was passed under direct vision. Throughout the procedure, the patient's blood pressure, pulse, and oxygen saturations were monitored continuously. The scope was introduced through the mouth, and advanced to the second part of duodenum. The upper GI endoscopy was accomplished without difficulty. The patient tolerated the procedure well. Findings: The esophagus was normal. A small hiatus hernia was present. The examined duodenum was normal. Impression: - Normal esophagus. - Small hiatus hernia. - Normal examined duodenum. - No specimens collected. Recommendation: - Resume previous diet. - Continue present medications. - [facility] patient [facility] care. Melquiades Brooke DO 10/02/2016 3:36:24 PM This report has been signed electronically. Note Initiated On: 10/02/2016 3:10 PM I attest to the content of the Intraoperative Record and orders documented therein, exceptions below
[2016-10-02] MEDS ORDERED: LIDOCAINE HCL 2% 2 ML VIAL (20MG/ML) ONE (15:42)
[2016-10-02] MEDS ORDERED: ETOMIDATE 2 MG/ML 20 ML VIAL IV ONE (15:42)
[2016-10-02] MEDS ORDERED: PROPOFOL IV EMULSION 10 MG/ML 20 ML VIAL IV ONE (15:42)
--- NOTE | 2016-10-02 15:57 | Anesthesiology Progress Note ---
Anesthesia Post Op Note Date & Time Oct 02, 2016 at 15:57 Vital Signs Pain Intensity: 0.0 Vital Signs Past 12 Hours Date Time Temp Pulse Resp B/P Pulse Ox O2 Delivery O2 Flow Rate FiO2 10/02/16 15:55 67 20 125/58 97 Room Air 10/02/16 15:37 71 20 138/62 96 Room Air 10/02/16 14:33 36.7 75 20 144/61 96 Room Air 10/02/16 14:15 74 16 94 Room Air 10/02/16 14:14 36.8 68 18 144/73 97 Room Air 0.0 10/02/16 12:00 Room Air 10/02/16 11:27 36.8 68 18 144/73 97 Room Air 10/02/16 08:00 Room Air 10/02/16 07:14 73 16 92 Room Air 10/02/16 04:31 36.5 65 18 115/61 97 Room Air 10/02/16 04:00 Room Air Notes Mental Status: alert / awake / arousable, participated in evaluation Pt Amnestic to Procedure: Yes Nausea / Vomiting: adequately controlled Pain: adequately controlled Airway Patency, RR, SpO2: stable & adequate BP & HR: stable & adequate Hydration State: stable & adequate Anesthetic Complications: no major complications apparent
[2016-10-02] MEDS: ESCITALOPRAM OXALATE 10 MG TAB PO SCH (19:16)
[2016-10-02] MEDS: SIMVASTATIN 80 MG TAB PO SCH (19:16)
[2016-10-02] MEDS ORDERED: LAVAGE SOLUTION 4000ML PO SCH (22:00)
[2016-10-02 22:41] LABS: HEMATOCRIT 31.9 % (42-52)
[2016-10-03] VITALS (13 sets, daily range): BP systolic 119–151; BP diastolic 58–80; PULSE 61–79; TEMP 36.6–37.1; O2SAT 91–98
[2016-10-03] MEDS: SODIUM CHLORIDE 0.9% 1000ML 1,000 ML IV SCH ×2 (01:04→20:43)
[2016-10-03] MEDS: ALBUTEROL 0.083% NEBU SOLN 3 ML VIAL INH SCH ×4 (02:15→20:14)
[2016-10-03] MEDS: LEVOTHYROXINE 75 MCG TAB PO SCH (05:20)
[2016-10-03] MEDS: ARFORMOTEROL TART 15MCG/2ML VIAL INH SCH ×2 (07:11→20:14)
[2016-10-03] MEDS: INSULIN ASPART 100 UNITS/ML 3 ML PEN SC SCH ×4 (07:35→20:42)
[2016-10-03] MEDS: PANTOprazole INJ 40 MG in SYRINGE 0 ML IV SCH ×2 (07:37→20:37)
[2016-10-03 07:50] LABS: BASO % 0.4 %; BASO ABS # 0.03 K/uL (0-0.2); COMPLETE YES; EOS % 3.8 %; HEMATOCRIT 30.6 % (42-52); IG% 0.8 %; LYMPH ABS # 1.24 K/uL (1.2-3.4); MEAN CELL VOLUME 83.4 fL (80-100); MEAN CORPUSCULAR HEMOGLOBIN 25.9 pg (25-34); MEAN PLATELET VOLUME 9.9 fL (7.4-10.4); MONO % 12.1 %; NEUT % 67.9 %; PLATELET COUNT 232 K/uL (130-400); RED BLOOD COUNT 3.67 M/uL (4.7-6.1); WHITE BLOOD COUNT 8.24 K/uL (4.8-10.8)
[2016-10-03 08:16] LABS: BUN/CREATININE RATIO 6.4 (10-20); CALCIUM 7.7 mg/dl (8.5-10.1); CREATININE 0.78 mg/dl (0.60-1.40); MAGNESIUM 2.3 mg/dl (1.8-2.4); POTASSIUM 3.1 mmol/L (3.5-5.1)
[2016-10-03 08:17] LABS: PHOSPHORUS 2.3 mg/dl (2.5-4.9)
[2016-10-03] MEDS ORDERED: ONDANSETRON INJ 2 MG/ML 2 ML VIAL ONE (12:59)
[2016-10-03] MEDS ORDERED: MIDAZOLAM HCL 1 MG/ML 2ML VIAL ONE (12:59)
--- NOTE | 2016-10-03 13:35 | GI REPORT ---
Procedure Date: 10/03/2016 1:02 PM Procedure: Colonoscopy Indications: Iron deficiency anemia secondary to chronic blood loss Medicines: Monitored Anesthesia Care Complications: No immediate complications. Estimated Blood Loss: Estimated blood loss: none. Procedure: Pre-Anesthesia Assessment: - Prior to the procedure, a History and Physical was performed, and patient medications and allergies were reviewed. The patient's tolerance of previous anesthesia was also reviewed. The risks and benefits of the procedure and the sedation options and risks were discussed with the patient. All questions were answered, and informed consent was obtained. Prior Anticoagulants: The patient has taken Eliquis (apixaban), last dose was 4 days prior to procedure. ASA Grade Assessment: III - A patient with severe systemic disease. After reviewing the risks and benefits, the patient was deemed in satisfactory condition to undergo the procedure. After I obtained informed consent, the scope was passed under direct vision. Throughout the procedure, the patient's blood pressure, pulse, and oxygen saturations were monitored continuously. The scope was introduced through the anus and advanced to the terminal ileum. The colonoscopy was performed without difficulty. The patient tolerated the procedure well. The quality of the bowel preparation was good. The terminal ileum, ileocecal valve, appendiceal orifice, and rectum were photographed. Findings: Multiple small-mouthed diverticula were found in the sigmoid colon. Non-bleeding internal hemorrhoids were found during retroflexion. The hemorrhoids were small. Impression: - Diverticulosis in the sigmoid colon. - Non-bleeding internal hemorrhoids. - No specimens collected. Recommendation: - [facility] to [facility] care. - Advance diet as tolerated. - Continue present medications. - No recommendation at this time regarding repeat colonoscopy due to age and no polyps on today's exam. Melquiades Brooke DO 10/03/2016 1:35:06 PM This report has been signed electronically. Note Initiated On: 10/03/2016 1:02 PM I attest to the content of the Intraoperative Record and orders documented therein, exceptions below
--- NOTE | 2016-10-03 13:55 | Anesthesiology Progress Note ---
Anesthesia Post Op Note Date & Time Oct 03, 2016 at 13:56 Vital Signs Pain Intensity: 0.0 Vital Signs Past 12 Hours Date Time Temp Pulse Resp B/P Pulse Ox O2 Delivery O2 Flow Rate FiO2 10/03/16 13:48 63 18 136/96 95 Room Air 0.0 10/03/16 13:33 65 18 123/60 94 Room Air 0.0 10/03/16 13:18 37.1 68 16 111/53 95 Room Air 0.0 10/03/16 12:36 37.1 66 20 148/73 94 Room Air 10/03/16 12:08 Room Air 10/03/16 11:35 36.9 67 18 138/75 94 Room Air 10/03/16 07:46 Room Air 10/03/16 07:38 37.1 72 18 124/66 91 Room Air 10/03/16 07:11 70 18 91 Room Air 10/03/16 04:00 Room Air 10/03/16 03:54 36.9 66 18 147/77 96 Room Air 10/03/16 02:15 72 18 94 Room Air Notes Mental Status: alert / awake / arousable, participated in evaluation Pt Amnestic to Procedure: Yes Nausea / Vomiting: adequately controlled Pain: adequately controlled Airway Patency, RR, SpO2: stable & adequate BP & HR: stable & adequate Hydration State: stable & adequate Anesthetic Complications: no major complications apparent
[2016-10-03] MEDS ORDERED: POTASSIUM PHOS 3 MMOL/1 ML INFUSION IV STA (17:20)
--- NOTE | 2016-10-03 17:23 | Family Medicine Progress Note ---
Progress Note Date of Service Oct 03, 2016. Subjective Pt evaluation today including: conversation w/ patient, physical exam, chart review, lab review, review of studies, review of inpatient medication list Voiding: no voiding problems Mr Gibson feels well. No current issues except he did not like the bowel prep. No chest pain or shortness of breath. BM with bowel prep without any back stool or GI bleeding. All Other Systems: Reviewed and Negative Medications Current Inpatient Medications Medications (Trade) Dose Ordered Sig/Clair Route Start Time Stop Time Status Last Admin Dose Admin Sodium Chloride (Nss 1000ml) 1,000 ml @ 50 mls/hr Q20H IV 09/29/16 17:06 10/29/16 17:05 10/03/16 01:04 50 MLS/HR Acetaminophen (Tylenol Tab) 650 mg Q4H PRN PO 09/29/16 17:15 10/29/16 17:14 10/02/16 17:25 650 MG Magnesium Hydroxide (Milk Of Magnesia Susp) 30 ml Q12H PRN PO 09/29/16 17:15 10/29/16 17:14 Ondansetron HCl (Zofran Inj) 4 mg Q6H PRN IV 09/29/16 17:15 10/29/16 17:14 Polyethylene (Miralax Powder Packet) 17 gm DAILY PRN PO 09/29/16 17:15 10/29/16 17:14 Albuterol (Ventolin Hfa Inhaler) 2 puffs QID PRN INH 09/29/16 17:15 10/29/16 17:14 Arformoterol Tartrate (Brovana 15MCG/ 2ML Neb Soln) 15 mcg BIDR INH 09/29/16 20:00 10/29/16 20:59 10/03/16 07:11 15 MCG Budesonide (Pulmicort Respules 0.25MG/ 2ML Neb Soln) 0.5 mg BID PRN INH 09/29/16 17:15 10/29/16 17:14 Fexofenadine HCl (Marilee Tab) 180 mg DAILY PRN PO 09/29/16 17:15 10/29/16 17:14 Furosemide (Lasix Tab) 20 mg BID17 PRN PO 09/29/16 17:15 10/29/16 17:14 Prednisone (PredniSONE TAB) 10 mg QAM PO 09/30/16 09:00 10/30/16 08:59 10/03/16 07:38 10 MG Simvastatin (Zocor Tab) 80 mg HS PO 09/29/16 21:00 10/29/16 20:59 10/02/16 19:16 80 MG Miscellaneous Information (Order Awaiting Action) 1 ea QS N/A 09/30/16 00:00 10/30/16 00:00 Fluticasone Propionate (Flonase Nasal [place]) 2 sprays DAILY PRN VERONICA 09/29/16 17:15 10/29/16 17:14 Insulin Aspart (novoLOG ASPART) SLIDING SCALE If C... ACHS SC 09/29/16 21:00 10/29/16 20:59 10/01/16 22:14 3 UNITS Glucose (Glucose 40% Gel) 15-30 GRAMS 15 GRAMS... UD PRN PO 09/29/16 17:15 10/29/16 17:14 Glucose (Glucose Chew Tab) 4-8 Tablets 4 Tabl... UD PRN PO 09/29/16 17:15 10/29/16 17:14 Dextrose (Dextrose 50% 50ML Syringe) 25-50ML OF 50% DW IV FOR... UD PRN IV 09/29/16 17:15 10/29/16 17:14 Glucagon 1 mg 1 mg UD PRN SQ 09/29/16 17:15 10/29/16 17:14 Pantoprazole Sodium/Syringe (Protonix Inj/ Syringe) 10 ml @ 5 mls/min DAILY@,21 IV 09/29/16 21:00 10/29/16 20:59 10/03/16 07:37 5 MLS/MIN Albuterol Sulfate (Ventolin 0.083% 2.5MG/3ML Neb) 2.5 mg Q6R INH 09/29/16 21:00 10/29/16 20:59 10/03/16 14:14 2.5 MG Escitalopram Oxalate (Lexapro Tab) 5 mg HS PO 10/03/16 21:00 11/02/16 20:59 Levothyroxine Sodium (Synthroid Tab) 75 mcg DAILYBB PO 10/03/16 06:00 11/02/16 05:59 Objective Vital Signs Date Time Temp Pulse Resp B/P Pulse Ox O2 Delivery O2 Flow Rate FiO2 10/03/16 15:42 Room Air 10/03/16 15:34 36.7 79 18 119/58 96 Room Air 10/03/16 14:18 36.6 65 18 128/70 98 10/03/16 14:14 64 18 94 Room Air 10/03/16 13:48 63 18 136/96 95 Room Air 0.0 10/03/16 13:33 65 18 123/60 94 Room Air 0.0 10/03/16 13:18 37.1 68 16 111/53 95 Room Air 0.0 10/03/16 12:36 37.1 66 20 148/73 94 Room Air 10/03/16 12:08 Room Air 10/03/16 11:35 36.9 67 18 138/75 94 Room Air 10/03/16 07:46 Room Air 10/03/16 07:38 37.1 72 18 124/66 91 Room Air 10/03/16 07:11 70 18 91 Room Air 10/03/16 04:00 Room Air 10/03/16 03:54 36.9 66 18 147/77 96 Room Air 10/03/16 02:15 72 18 94 Room Air 10/03/16 00:00 36.8 65 18 151/80 96 Room Air 10/03/16 00:00 Room Air 10/02/16 20:56 37.0 66 18 131/62 95 Room Air 0.0 10/02/16 20:00 Room Air 10/02/16 19:33 37.0 66 18 131/62 95 Room Air 10/02/16 19:13 71 16 93 Room Air Physical Exam General Appearance: WD/WN, no apparent distress Eyes: normal inspection, PERRL, EOMI Neck: supple, no JVD Respiratory/Chest: chest non-tender, lungs clear, normal breath sounds, no respiratory distress, no accessory muscle use Cardiovascular: regular rate, rhythm, no murmur Abdomen: normal bowel sounds, non tender, soft Extremities: no pedal edema, no calf tenderness Neurologic/Psychiatric: no motor/sensory deficits, alert, normal mood/affect, oriented x 3 Skin: normal color, warm/dry, no rash Laboratory Results 10/03/16 07:29 Red Blood Count 3.67, Mean Corpuscular Volume 83.4, Mean Corpuscular Hemoglobin 25.9, Mean Corpuscular Hemoglobin Concent 31.0, Mean Platelet Volume 9.9, Neutrophils (%) (Auto) 67.9, Lymphocytes (%) (Auto) 15.0, Monocytes (%) (Auto) 12.1, Eosinophils (%) (Auto) 3.8, Basophils (%) (Auto) 0.4, Neutrophils # (Auto ) 5.59, Lymphocytes # (Auto) 1.24, Monocytes # (Auto) 1.00, Eosinophils # (Auto ) 0.31, Basophils # (Auto) 0.03 10/03/16 07:29 Test 10/03/16 07:29 10/03/16 16:23 White Blood Count 8.24 K/uL (4.8-10.8) Red Blood Count 3.67 M/uL (4.7-6.1) Hemoglobin 9.5 g/dL (14.0-18.0) Hematocrit 30.6 % (42-52) Mean Corpuscular Volume 83.4 fL (80-100) Mean Corpuscular Hemoglobin 25.9 pg (25-34) Mean Corpuscular Hemoglobin Concent 31.0 g/dl (32-36) Platelet Count 232 K/uL (130-400) Mean Platelet Volume 9.9 fL (7.4-10.4) Neutrophils (%) (Auto) 67.9 % Lymphocytes (%) (Auto) 15.0 % Monocytes (%) (Auto) 12.1 % Eosinophils (%) (Auto) 3.8 % Basophils (%) (Auto) 0.4 % Neutrophils # (Auto) 5.59 K/uL (1.4-6.5) Lymphocytes # (Auto) 1.24 K/uL (1.2-3.4) Monocytes # (Auto) 1.00 K/uL (0.11-0.59) Eosinophils # (Auto) 0.31 K/uL (0-0.5) Basophils # (Auto) 0.03 K/uL (0-0.2) RDW Standard Deviation 48.3 fL (36.4-46.3) RDW Coefficient of Variation 15.8 % (11.5-14.5) Immature Granulocyte % (Auto) 0.8 % Immature Granulocyte # (Auto) 0.07 K/uL (0.00-0.02) Anion Gap 11.0 mmol/L (3-11) Est Creatinine Clear Calc Drug Dose 85.7 ml/min Estimated GFR () 100.2 Estimated GFR (Non- 86.5 BUN/Creatinine Ratio 6.4 (10-20) Calcium Level 7.7 mg/dl (8.5-10.1) Phosphorus Level 2.3 mg/dl (2.5-4.9) Magnesium Level 2.3 mg/dl (1.8-2.4) Bedside Glucose 257 mg/dl (70-99) Assessment and Plan 76 y/o M with PMHx of COPD, DM, atrial fibrillation, nephrolithiasis, hypothyroidism, hyperlipidemia, sleep apnea admitted after lab work for chest tightness (though to be due to COPD exacerbation) showed Hgb 6.4. Acute blood loss anemia - Hemoccult positive: likely GI bleed. Last O/P hgb was 11.5 - s/p x3 PRBCs - Protonix 40 mg BID for cover UGI bleed - Holding eliquis - H&H stable - EGD - small hiatal hernia otherwise normal - Colonoscopy: Multiple small mouthed diverticula in sigmoid, Small Non bleeding internal hemorrhoids - will advance diet tonight. aim home tomorrow. Paroxysmal Atrial Flutter: - 1 episode converted with amiodarone stopped by Dr Escudero in February 2016. Currently in sinus rhythm - hold eliquis due to GI bleed. Follow up with Dr Hwang as O/P will need earlier appointment COPD: stable - Continue Ventolin q6h and prednisone 10 mg daily (chronic use) - Proventil, Brovana, Pulmicort PRN T2DM: - Holding Metformin and Glimepiride - ISS aim 140-180, correction 40, carb ratio 10:1 - 12 units 10/01. Hyperlipidemia: Zocor 80 mg Sleep apnea - non compliant with CPAP Hypothyroidism - Levothyroxine 100 mcg started while on amiodarone. Recent TSH 09/29/16 0.402. Will decrease to 75 mcg since he is no longer on amiodarone so suspect he will need decreasing doses. Code - Full VTE prophylaxis - chemical contraindicated due to suspected GI bleed. SCDs + TEDs Disposition - Continued inpatient to advance diet and check H&H stable in morning. Aim home tomorrow. Resident Physician Supervision Note: I was present with PGY2 Dr. Tarik Lindquist during the history and exam. I discussed the case with the resident and agree with the findings and plan as documented in the note. Any exceptions or clarifications are listed here: none. No issues overnight. Tele stable. Underwent uneventful colonoscopy; had diverticulosis and hemorrhoids but otherwise no signs of bleeding. Feels good. Denies dyspnea. VSS gen - nad abd - soft, NT, ND, BS+, no HSM A/P: acute blood loss anemia in setting of chronic anticoagulation - anemia improved s/p PRBCs and stable H/H since with no evidence of recurrent bleeding. Agree with continuing to hold anticoagulation. Since no bleeding source was found could consider outpatient capsule endoscopy. Will need fe supplementation after discharge. Agree w/ watching overnight and if H/H stable and eating well can d/c home tomorrow. Documented By: Tarik Garcia MD Resident Tracking Resident Involvement: Resident Care Provided Care Provided: Adult Hospital Medicine
[2016-10-03] MEDS ORDERED: POTASSIUM PHOSPHATE INJ 15 MMOL in SODIUM CHLORIDE 0.9% 250ML 250 ML IV ONE (18:30)
[2016-10-03] MEDS: SIMVASTATIN 80 MG TAB PO SCH (20:38)
[2016-10-03] MEDS ORDERED: ESCITALOPRAM OXALATE 10 MG TAB PO SCH (21:00)
[2016-10-04] MEDS: ALBUTEROL 0.083% NEBU SOLN 3 ML VIAL INH SCH ×4 (01:45→19:08)
[2016-10-04 01:46] VITALS: PULSE 72; O2SAT 96
[2016-10-04] MEDS: LEVOTHYROXINE 75 MCG TAB PO SCH (06:57)
[2016-10-04 07:38] VITALS: BP 108/61; PULSE 64; TEMP 36.5; O2SAT 95
[2016-10-04 07:49] VITALS: PULSE 63; O2SAT 97
[2016-10-04] MEDS: ARFORMOTEROL TART 15MCG/2ML VIAL INH SCH ×2 (07:49→19:08)
[2016-10-04] MEDS: PANTOprazole INJ 40 MG in SYRINGE 0 ML IV SCH (08:02)
[2016-10-04 09:06] LABS: HEMATOCRIT 29.6 % (42-52)
--- NOTE | 2016-10-04 09:11 | PROGRESS NOTE ---
DATE: 10/04/2016 SEX: Male. RACE: . I had the pleasure of seeing Maninder Gibson at his bedside this morning. He was feeling much better today. He states that he has not had any overt GI bleeding. He denies any fevers, chills, nausea, vomiting, hematemesis, melena, hematochezia or other complaints. He states that he is eating well and states that he did not have a bowel movement overnight. He denies any further complaints. PHYSICAL EXAMINATION: VITAL SIGNS: Temp 36.5, pulse 63, respirations 16, blood pressure 108/61, pulse ox 97% on room air. GENERAL: He is awake, cooperative, chronic ill appearing, in no acute distress. HEAD: Normocephalic, atraumatic. EYES: Pupils equally round. Extraocular muscles are intact. ENT: External evaluation of ears and nose are normal. Oropharynx is clear. NECK: Soft and supple. CHEST: Clear to auscultation bilaterally. CARDIOVASCULAR SYSTEM: Regular rate and rhythm. ABDOMEN: Soft, nontender, nondistended. Positive bowel sounds. EXTREMITIES: No clubbing or cyanosis. There is slight edema of the right upper extremity in the hand. IMPRESSION: A 76-year-old male who presented with acute blood loss anemia, heme positive stool, who required transfusions of 3 units of packed red blood cells and has had an appropriate response status post EGD and colonoscopy with no source of gastrointestinal bleeding. PLAN: At the present time, I would recommend that the patient be continued on Protonix, so I would switch it to 40 mg p.o. daily at present. I would recommend that he be continued on MiraLax 17 grams p.o. daily p.r.n. constipation, resumption of the patient's anticoagulation will need to be determined by the primary care team, as well as cardiology, based on the patient's risk of thromboembolic event weighed against his risk of rebleeding. I will follow his clinical course and make further recommendations as needed. Once again, thanks for allowing me to participate in the care of this patient. If you have any further questions, please do not hesitate in contacting me.
[2016-10-04 09:50] LABS: BUN/CREATININE RATIO 7.7 (10-20); CALCIUM 7.5 mg/dl (8.5-10.1); CREATININE 0.95 mg/dl (0.60-1.40); PHOSPHORUS 1.9 mg/dl (2.5-4.9); POTASSIUM 3.2 mmol/L (3.5-5.1)
[2016-10-04] MEDS ORDERED: POTASSIUM PHOS 3 MMOL/1 ML INFUSION IV STA (09:52)
[2016-10-04] MEDS: INSULIN ASPART 100 UNITS/ML 3 ML PEN SC SCH ×3 (10:01→18:05)
[2016-10-04] MEDS ORDERED: POTASSIUM PHOSPHATE INJ 21 MMOL in SODIUM CHLORIDE 0.9% 500ML 500 ML IV SCH (10:30)
[2016-10-04] MEDS ORDERED: ESCI5TAB PO (10:36)
[2016-10-04] MEDS ORDERED: POTASSIUM CHLORIDE 10 MEQ TABCR PO ONE (13:30)
[2016-10-04] MEDS ORDERED: FUROSEMIDE INJ 20 MG in SYRINGE 0 ML IV ONE ×2 (14:00→16:15)
[2016-10-04 15:05] VITALS: BP 109/65; PULSE 66; TEMP 36.8; O2SAT 97
[2016-10-04] MEDS ORDERED: SYN75 PO (16:08)
[2016-10-04] MEDS ORDERED: FURO-85 PO (16:11)
[2016-10-04] MEDS ORDERED: POTTAB2 PO (16:18)
[2016-10-04] MEDS ORDERED: MCRK20 PO (16:18)
--- NOTE | 2016-10-04 16:29 | Discharge Instructions ---
Discharge Instructions Admission Reason for Admission: Anemia (Tarik Lindquist MD) Discharge Discharge Diagnosis / Problem: Anemia secondary to GI bleeding (Tarik Lindquist MD) Discharge Goals Goal(s): Improve disease control (Tarik Lindquist MD) Activity Recommendations Activity Limitations: resume your previous activity . (Tarik Lindquist MD) Instructions / Follow-Up Instructions / Follow-Up You were diagnosed with anemia secondary to a GI bleed (small amounts of blood were found on stool sample in ER). You were transfused with 3 units of blood and your anemia has been stable since then. You were evaluated by GI and underwent EGD and colonoscopy which did not show a cause for the bleeding. Your eliquis was stopped as this likely contributed towards you bleeding and you were in sinus rhythm throughout your admission (only one previous documented episode of atrial flutter with spontaneous conversion. Your total body was elevated on discharge therefore you should take your dose of Lasix twice a day until follow up with Dr Gunderson. You had a low phosphate level on the day of discharge so replacement tablets have been prescribed which you should take until lab results on 10/06/16. Please have you blood test as per script for hemoglobin, basic metabolic panel and phosphate level on 10/06/16 - these results will be sent to your PCP. Follow up with Dr. Gunderson on SundayOctober 11 at 10:30 am Follow up with Mitzi Leon PA-C and [facility] on SundayOctober 17 at 4:00 pm for discussion on restarting eliquis or whether to stay off of this. (Tarik Lindquist MD) Current Hospital Diet Patient's current hospital diet: AHA Diet (Heart Healthy), Diabetes Type 2 Diet (Tarik Lindquist MD) Discharge Diet Recommended Diet: AHA Diet (Heart Healthy), Diabetes Type 2 Diet (Tarik Lindquist MD) Pending Studies Studies pending at discharge: no (Tarik Lindquist MD) Laboratory Results Hemoglobin A1c Test 09/29/16 11:00 Range/Units Estimated Average Glucose 174 mg/dl Hemoglobin A1c 7.7 H 4.5-5.6 % (Tarik Lindquist MD) Medical Emergencies . Who to Call and When: Medical Emergencies: If at any time you feel your situation is an emergency, please call 911 immediately. . (Tarik Lindquist MD) Non-Emergent Contact Non-Emergency issues call your: Primary Care Provider . (Tarik Lindquist MD) . "Provider Documentation" section prepared by Tarik Lindquist. (Tarik Lindquist MD) Attending Attestation: Pt seen & examined with PGY2 Dr. Tarik Lindquist on the day of discharge and I agree with his discharge instructions as outlined. Tarik Garcia MD (Tarik Garcia MD) VTE Core Measure Inpt VTE Proph given/why not?: SCD's, Contraindicated (GI bleed) (Tarik Lindquist MD)
[2016-10-04 17:52] VITALS: BP 109/65; PULSE 66; TEMP 36.8; O2SAT 97
--- NOTE | 2016-10-04 18:10 | Discharge Summary ---
Discharge Summary Admission Date: Sep 29, 2016 at 17:11 Discharge Date: Oct 04, 2016 Discharge Disposition: Home Principal Diagnosis: Anemia secondary to GI bleed exacerbated by Eliquis Problems/Secondary Diagnoses: Hypokalemia Hypophosphatemia Immunizations: Have You Had Influenza Vaccine: Yes Influenza Vaccine Date: Sep 01, 2013 History of Tetanus Vaccine?: uptd History of Pneumococcal: Yes Pneumococcal Date: Sep 02, 2012 History of Hepatitis B Vaccine: No Procedures: EGD Colonoscopy Consultations: Gastroenterology (Dr Brooke) (Tarik Lindquist MD) Problems/Secondary Diagnoses: acute blood loss anemia, GI in origin, exact cause not found hypothyroidism COPD T2DM chronic prednisone dependency history of paroxysmal a. fib Procedures: PRBCs x 3 units (Tarik Garcia MD) Medication Reconciliation New Medications: Levothyroxine Sodium (Synthroid) 75 Mcg Tab 75 MCG PO DAILYBB for 30 Days, TAB Pot Phosphate Monobasic W/ Sod (Phospha 250 Neutral) 1 Tab Tab 1 TAB PO QID for 5 Days, TAB Take until lab test results on 10/06/16. Further dosing to be determined by your primary care provider. Changed Medications: Escitalopram Oxalate (Lexapro) 5 Mg Tab 5 MG PO HS for 30 Days, TAB (Changed from: 2.5 MG) Furosemide (Lasix) 20 Mg Tab 20 MG PO BID PRN for Fluid Retention/Swelling for 30 Days, #60 TAB (Medication details modified) Take twice a day for the next three days then as directed by your primary care doctor. Take @ 8:00am and 13:00 Continued Medications: Aclidinium [place] (Tudorza Pressair) 400 Mcg/Act Aer 1 PUFF INH BID Albuterol (Ventolin Hfa) 60 Puffs/5400 Mcg Aers 2 PUFFS INH QID PRN for Shortness of Breath Albuterol Sulf (Proventil 0.083% 2.5MG/3ML) 2.5 Mg/3 Ml Nebu 2.5 MG INH Q4H PRN for SOB/Wheezing, EA Arformoterol Tartrate (Brovana) 15 Mcg/2 Ml Neb 15 MCG INH BID, INHALER Budesonide (Pulmicort Respules 0.25MG/2ML) 0.25 Mg/2 Ml Nebu 2 ML INH BID PRN for Shortness of Breath, EA Cholecalciferol (Vitamin D) 2,000 Unit Cap 2000 INTER.UNIT PO DAILY Fexofenadine Hcl (Marilee) 180 Mg Tab 180 MG PO DAILY PRN for Allergy Symptoms, TAB Glimepiride (Glimepiride) 1 Mg Tab 1 MG PO QAM Glucosamine-Chondroitin (Osteo Bi-Flex Regular Str) 1 Tab Tab 1 TAB PO BID Metformin Hcl (Glucophage) 500 Mg Tab 1000 MG PO BID, TAB Mometasone Furoate (Nasal) (Mometasone Furoate) 50 Mcg/Act Spr 2 SPRAYS VERONICA DAILY PRN for Nasal Congestion Multiple Vitamins W/ Minerals (Centrum) 1 Tab Tab 1 TABLET PO QAM Omeprazole (Omeprazole) 20 Mg Tab 20 MG PO QAM Oxymetazoline Hcl (Afrin 0.05% Nasal [place]) 1 Btl [place] 1 SPRAY NA BID PRN for Nasal Congestion, BTL Polyethylene Glycol 3350 (Bulk (Polyethylene Glycol 3350) 1 Pow Pow 17 GM PO DAILY PRN for Constipation, GM Prednisone Tab (Prednisone) 10 Mg Tab 10 MG PO QAM, TAB Simvastatin (Zocor) 80 Mg Tab 80 MG PO HS, TAB Discontinued Medications: Apixaban (Eliquis) 5 Mg Tab 5 MG PO BID Discharge Exam Feels his feet and hands have become more swollen. No shortness of breath, chest or abdominal pain. Eating and drinking well. Keen to go home. Physical Exam: General Appearance: WD/WN, no apparent distress Respiratory/Chest: chest non-tender, lungs clear, normal breath sounds, no respiratory distress, no accessory muscle use Cardiovascular: regular rate, rhythm, no murmur Abdomen / GI: normal bowel sounds, non tender, soft Extremities: + pedal edema (2+ to mid shins) Neurologic/Psychiatric: alert, normal mood/affect, oriented x 3 Skin: normal color (no cyanosis), warm/dry, no rash (Tarik Lindquist MD) Hospital Course Mr Gibson was admitted from his PCP office due to lo Hgb. He was diagnosed with anemia secondary to a GI bleed (small amounts of blood were found on stool sample in ER). He received 3 units of blood and Hbg has been stable since then. He was seen by GI and underwent EGD and colonoscopy which did not show a cause for the bleeding. His eliquis was stopped (takes for x1 previous episode of atrial flutter that spontaneous converted) and has been in sinus rhythm throughout admission. Due to IV fluids and blood transfusion his total body weight increased during admission and he had some increased pitting edema in his extremities.He was given IV 40 mg lasix on day of discharge and recommended to double his usual dose of lasix to 20mg BID until follow up with Dr Gunderson. Low phosphate level on the day of discharge so replacement tablets have been prescribed recommended to take until repeat labs are done on 10/06/16. He is to have a repeat H&H, BMP and phophate on 10/06/16 - these results will be sent to his PCP. Total Time Spent: Less than 30 minutes This includes examination of the patient, discharge planning, medication reconciliation, and communication with other providers. (Tarik Lindquist MD) Resident Physician Supervision Note: I was present with PGY2 Dr. Tarik Lindquist during the discharge history and exam. I discussed the case with the resident and agree with the findings and plan as documented in this discharge summary Any exceptions or clarifications are listed here: none. 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 The patient had had melena stools prior to presentation. Following admission he received 3 units of PRBCs with no evidence of recurrent bleeding. Discharge hemoglobin was bout 9.5. He was seen in consult by Dr. Melquiades Brooke, [facility], and underwent EGD and colonoscopy without a specific etiology for his presumed acute blood loss anemia from GI bleeding. In light of the severity of the anemia and GI bleeding it was advised that he discontinue his eliquis. Discharge exam: gen - NAD neck - no JVD heart - RRR, s1, s2 lungs - CTA b/l abd - soft, NT, ND, BS+, no HSM ext - 1-2+ edema, pulses 2+ b/l He will need close follow-up with his PCP for CBC surveillance as well as GI follow-up. If he is discovered to have ongoing bleeding could consider outpatient capsule endoscopy. Lastly, he was advised to take lasix twice a day for 3 days to help with peripheral edema that developed in the setting of multiple PRBCs. Documented By: Tarik Garcia MD Total Time Spent: Greater than 30 minutes (Tarik Garcia MD) Discharge Instructions Please refer to the electronic Patient Visit Report (Discharge Instructions) for additional information. (Tarik Lindquist MD) Follow-Up Follow up with Dr. Gunderson on SundayOctober 11 at 10:30 am to assess fluid balance ?reduce lasix back down to once/day and manage electrolyte abnormalities. Follow up with Mitzi Leon PA-C and [facility] on SundayOctober 17 at 4:00 pm for discussion on restarting eliquis or whether to stay off of this. (Tarik Lindquist MD) Additional Copies To Artis Gunderson M.D.; Artis Hwang MD
[2016-10-04 18:52] LABS: BUN/CREATININE RATIO 10.5 (10-20); CALCIUM 8.1 mg/dl (8.5-10.1); CREATININE 1.1 mg/dl (0.60-1.40); PHOSPHORUS 2.8 mg/dl (2.5-4.9)
[2016-10-04 18:53] LABS: POTASSIUM 4.4 mmol/L (3.5-5.1)
[2016-10-04 19:08] VITALS: PULSE 65; O2SAT 95
[2016-10-05] MEDS ORDERED: PANTOprazole SOD 40 MG TAB PO SCH (08:00)
[2016-10-05] MEDS ORDERED: POTASSIUM CHLORIDE 20 MEQ TABCR PO SCH (08:00)
[2016-10-05] MEDS ORDERED: POT PHOSPHATE MONOBASIC W/ SOD TAB PO SCH (09:00)
[2016-12-07] MEDS ORDERED: PRED10TA PO (06:21)
[2016-12-16] MEDS ORDERED: PRED10TA PO ×2 (10:33→12:24)
[2016-12-16] MEDS ORDERED: ASPEC81 PO (10:33)
[2017-02-01] MEDS ORDERED: LEVO75TA5 PO (08:47)
[2017-02-01] MEDS ORDERED: ASPI81TA28 PO (08:47)
== END 2016-10-04 19:42 | disposition home or self-care (01) | DRG 811 ==
LOC: ENRESERVDT → ENRESERVTM → CANRESERV → C.EDB 14:13 → C.2T 17:11 → C.MS4W 10-03 20:25
PROVIDERS: ADMIT Family Medicine; ATTEND Internal Medicine
PROC: 0DJ08ZZ Inspection of Upper Intestinal Tract, Via Natural or Artificial Opening Endoscopic (ICD-10-PCS; principal; 2016-10-02 14:27)
PROC: 0DJD8ZZ Inspection of Lower Intestinal Tract, Via Natural or Artificial Opening Endoscopic (ICD-10-PCS; 2016-10-03)
DX: D62 Acute posthemorrhagic anemia (principal); K57.31 Diverticulosis of large intestine without perforation or abscess with bleeding; I48.92 Unspecified atrial flutter; I48.91 Unspecified atrial fibrillation; E11.9 Type 2 diabetes mellitus without complications; N20.0 Calculus of kidney; G47.30 Sleep apnea, unspecified; Z91.19 Patient's noncompliance with other medical treatment and regimen; E03.9 Hypothyroidism, unspecified; E78.5 Hyperlipidemia, unspecified; K21.9 Gastro-esophageal reflux disease without esophagitis; K44.9 Diaphragmatic hernia without obstruction or gangrene; K64.8 Other hemorrhoids; Z80.9 Family history of malignant neoplasm, unspecified; Z82.49 Family history of ischemic heart disease and other diseases of the circulatory system; J44.9 Chronic obstructive pulmonary disease, unspecified; C61 Malignant neoplasm of prostate; R06.00 Dyspnea, unspecified; R05 Cough; G47.19 Other hypersomnia

== ENCOUNTER → 2016-09-29 | Outpatient (CLI) | payer BC ==
[2016-09-29 12:48] LABS: MEAN CORPUSCULAR HEMOGLOBIN 25.6 pg (25-34); MEAN CORPUSCULAR HGB CONC 30.5 g/dl (32-36); MEAN PLATELET VOLUME 10.4 fL (7.4-10.4); PLATELET COUNT 258 K/uL (130-400); WHITE BLOOD COUNT 11.03 K/uL (4.8-10.8)
[2016-09-29 12:53] LABS: BLOOD UREA NITROGEN 16 mg/dl (7-18); BUN/CREATININE RATIO 16.3 (10-20); CALCIUM 9.1 mg/dl (8.5-10.1); CARBON DIOXIDE 23 mmol/L (21-32); CHLORIDE 108 mmol/L (98-107); GLUCOSE 271 mg/dl (70-99); POTASSIUM 3.5 mmol/L (3.5-5.1); SODIUM 143 mmol/L (136-145)
[2016-09-29 13:04] LABS: PROSTATE SPECIFIC ANTIGEN < 0.010 ng/ml (0.000-4.000); THYROID STIMULATING HORMONE 0.402 uIu/ml (0.300-4.500)
[2016-09-29 13:13] LABS: ESTIMATED AVERAGE GLUCOSE 174 mg/dl; HA1C FLAG Normal (Normal)
[2016-09-29 14:01] LABS: INFLUENZA A PCR Neg for Influ A (NEG); INFLUENZA B PCR Neg for Influ B (NEG)
== END | disposition home or self-care (01) ==
LOC: C.LAB 10:58
PROVIDERS: ATTEND Internal Medicine Pulmonary Disease
DX: E03.9 Hypothyroidism, unspecified (principal); E11.9 Type 2 diabetes mellitus without complications; C61 Malignant neoplasm of prostate; D64.9 Anemia, unspecified; R06.00 Dyspnea, unspecified; R05 Cough; G47.19 Other hypersomnia

== ENCOUNTER → 2016-10-06 | Outpatient (CLI) | payer BC ==
[~2016-10-06] MED LIST changes: +ALBINS/ INH; -ALBU0.08 INH; -ALBUAER19 INH; -AMIO200T PO; -AMOX875T PO; -APIX1TAB3 PO; +ARFO15NE INH; +ASPEC81 PO; +ASPI81TA28 PO; -BRVIN INH; +CEPH500C PO; +CHOL200010 PO; +DXY100 PO; +ESCI10TA17 PO; +FEXO1TAB46 PO; +FLM4 PO; +FURO-85 PO; +GFNSR600 PO; +GLC/500 PO; +HYDR-5688 PO; +LEVO75TA5 PO; +MGNO400 PO; +MOME6000 NAE; -MRLP17X PO; +MULTTAB5 PO; -NSNN50 NAE; +OMEP20TA PO; +OXGN; -OXYC1TAB3 PO; -PHEN-1042 PO; +POLY1POW2 PO; +POTTAB2 PO; +PRD20 PO; +PRED-301 PO; +PRVHFAIN INH; +SIMV80TA2 PO; +SYN75 PO; -TAMS0.4C38 PO
[2016-10-06 11:54] LABS: HEMATOCRIT 32.4 % (42-52)
[2016-10-06 12:21] LABS: BLOOD UREA NITROGEN 11 mg/dl (7-18); BUN/CREATININE RATIO 10.9 (10-20); CARBON DIOXIDE 25 mmol/L (21-32); CHLORIDE 107 mmol/L (98-107); GLUCOSE 136 mg/dl (70-99); POTASSIUM 3.8 mmol/L (3.5-5.1); SODIUM 143 mmol/L (136-145)
[2016-10-06 12:22] LABS: PHOSPHORUS 2.3 mg/dl (2.5-4.9)
== END | disposition home or self-care (01) ==
LOC: C.LAB 11:03
PROVIDERS: ATTEND Internal Medicine
DX: D64.9 Anemia, unspecified (principal); E87.6 Hypokalemia; E83.39 Other disorders of phosphorus metabolism

== ENCOUNTER → 2016-10-16 | Outpatient (CLI) | payer BC ==
[2016-10-16 14:42] LABS: BASO % 0.4 %; BASO ABS # 0.05 K/uL (0-0.2); EOS % 1.4 %; IG% 1.6 %; LYMPH % 17.2 %; LYMPH ABS # 2.39 K/uL (1.2-3.4); MEAN CELL VOLUME 81.2 fL (80-100); MEAN CORPUSCULAR HEMOGLOBIN 25.1 pg (25-34); MEAN CORPUSCULAR HGB CONC 30.9 g/dl (32-36); MEAN PLATELET VOLUME 10.1 fL (7.4-10.4); MONO % 9.5 %; NEUT % 69.9 %; PLATELET COUNT 488 K/uL (130-400); RED BLOOD COUNT 4.31 M/uL (4.7-6.1); WHITE BLOOD COUNT 13.86 K/uL (4.8-10.8)
[2016-10-16 15:13] LABS: FERRITIN 12.9 ng/ml (8.0-388.0)
[2016-10-16 15:24] LABS: COMPLETE YES; OVALOCYTES 1+; SCHISTOCYTES 1+
--- NOTE | 2016-10-20 11:16 | CODING QUERY MEDICAL NECESSITY ---
SUPPORTING DIAGNOSIS NEEDED A supporting diagnosis is required for the test/procedure performed on this patient in order for us to be reimbursed by the patient's insurance. Please provide a supporting diagnosis for the following test/procedure listed below next to the test name along with your signature. *If there is no additional diagnosis for this patient that would support the following test/procedure please document that below next to the test/procedure. Test(s)/Procedure(s) that require a supporting diagnosis: DOS 10/16 * Vitamin B12 DIAGNOSIS: * Folic Acid DIAGNOSIS: Provider Signature: Date: Thank you Yoko Elizalde Health Information Management Once completed, please kindly fax back to [phone] For questions please call [phone]
== END | disposition home or self-care (01) ==
LOC: C.LAB 12:42
PROVIDERS: ATTEND Internal Medicine
DX: K92.2 Gastrointestinal hemorrhage, unspecified (principal); D64.9 Anemia, unspecified

== ENCOUNTER → 2016-11-09 | Outpatient (CLI) | payer BC ==
[~2016-11-09] MED LIST changes: +AMOX875T PO; +MAGN400T6 PO; +NYSS5 PO
[2016-11-09 17:32] LABS: BASO % 0.3 %; BASO ABS # 0.04 K/uL (0-0.2); COMPLETE YES; EOS % 3.3 %; HEMATOCRIT 33.9 % (42-52); IG% 1.3 %; LYMPH % 16.8 %; MEAN CELL VOLUME 81.7 fL (80-100); MEAN CORPUSCULAR HEMOGLOBIN 24.8 pg (25-34); MEAN CORPUSCULAR HGB CONC 30.4 g/dl (32-36); MEAN PLATELET VOLUME 10.3 fL (7.4-10.4); NEUT % 70.3 %; PLATELET COUNT 257 K/uL (130-400); RED BLOOD COUNT 4.15 M/uL (4.7-6.1); WHITE BLOOD COUNT 11.88 K/uL (4.8-10.8)
== END | disposition home or self-care (01) ==
LOC: C.LABBFT 14:20
PROVIDERS: ATTEND Internal Medicine
DX: D64.9 Anemia, unspecified (principal)

== ENCOUNTER → 2016-11-30 | Outpatient (CLI) | payer BC ==
--- NOTE | 2016-12-01 06:55 | PAP/PSG TECHNICIAN REPORT ---
[facility] Business And Financial Counsel Polysomnogram Report Study name: None Report date: 12/01/2016 Study date: 11/30/2016 Referring Physician: Ana Arce PA-C, PA-C Name: ALAYNA GIBSON Interpreting Physician: Abner Pavon M.D. Date of : 1940 Business And Financial Counsel: Jared Gillis RPS. Sex: Male Age: 76 StudyType: PSG PAP Weight: 190 lbs Height: 76 years, Height 6' 0" BMI: 25.77 Medications: ALBUTEROL SULFATE, BROVANA, TUDORZA PRESSAIR, VENTOLIN HFA 108 (90) BASE, PREDISONE 10 MG, OXYGEN 1.5 LPM, ESCITALOPRAM OXALATE 10 MG, GLIMEPIRIDE 1 MG, METFORMIN HCL 500 MG, OMEPRAZOLE 20 MG, FUROSEMIDE 20 MG, SIMVASTATIN 80 MG, LEVOTHYROXINE SODIUM 75 MCG Patient History PATIENT HAD A SLEEP STUDY DONE IN 2010 AND WA POSITIVE FOR LEONARD. HE HAS BEEN WEARING CPAP SINCE THEN. HE IS BACK TODAY FOR AN UPDATE ON HIS PRESSURE. RM 5 Parameters Monitored NPSG: E1-M2, E2-M1, Fp1-M2, Fp2-M1, F3-M2, F4-M2, F4-M1, C3-M2, C4-M2, C4-M1, O1-M2, O2-M2, O2-M1, T3-M2, T4-M1, P3-M2, P4-M1, CHIN1, CHIN2, HR, EKG, Legs, PFLOW, SNOR, FLOW, CFLOW, Tidal Volume, THOR, ABDO, SpO2, PLTH, CPRESS, ETCO2 Wave, ETCO2, pH Sleep Architecture Sleep Stages Time at Lights Off 10:07:13 PM STAGES Time (min.) TST (%) Time at Lights On 5:30:43 AM Wake 160.5 -- Total Recording Time (TRT) 444.00 min. N1 22.5 8 Total Sleep Period (TSP) 385.5 min. N2 206.5 73 Total Sleep Time (TST) 283.0min. N3 22.5 8 Awake Time 161.0 min. REM 31.5 11 Wake after Sleep Onset 103.0 min. Sleep Efficiency (SE) 64 % Sleep Onset Latency (JONEL) 57.5 min. Number of Stage 1 Shifts None Awakenings 29 Stage Changes 103 Number of REM periods 7 REM 31.5 11 REM Latency 155.0 min. NREM 251.5 89 Body Position Analysis Supine Right Left Side Prone Vertical Total Sleep Time (min.) 443.5 0.0 0.0 0.00 0.0 0.0 Total Sleep Time (%) 100% 0% 0% 0 0% N/A% Total Sleep Time REM (min.) 31.5 0.0 0.0 None 0.0 0.0 Total Sleep Time NREM (min.) 251.5 0.0 0.0 None 0.0 0.0 Intermittent Wake (min.) 160.5 0.0 0.0 None 0.0 0.0 Total Sleep Period (%) 100% None None None None None Arousals Myoclonus (PLM) * Events Count Index Events Count Index Spontaneous 48 10 Events Awake (PLMW) 67 25.0 Respiratory 9 2.8 Events Asleep w/ Arousal (PLMA) 14 3.0 PLM 14 3 Events Asleep w/o Arousal (PLMS) 438 92.9 Snoring 3 1 Total Asleep 452 95.8 Total 74 16 Total 519 70 Respiratory Analysis * CA OA MA CH H RERA Total Count 0 11 0 0 22 8 33 Index 0.0 2.3 0.0 0 4.7 2 8.7 Mean Duration 0.0 21.4 0.0 0.00 19.2 16.9 19.3 Longest Duration 0.0 39.0 0.0 0.00 0.0 18.5 39.0 Respiratory Event Summary Total Supine ~Supine Right Left Prone REM NREM Apneas Count 11 11 N/A N/A N/A N/A 5 6 Index 2.3 2 N/A N/A N/A N/A 10 1 Hypopneas (4% Desat) Count 22 22 N/A N/A N/A N/A 4 18 Index 4.7 4.7 N/A N/A N/A N/A 7.6 4.3 Apneas & All Hypopneas Count 33 33 N/A N/A N/A N/A 9 24 Index 7.0 7 N/A N/A N/A N/A 17.1 5.7 Respiratory Events (Traveling Secretary+All Hyp+RERA) Count 33 41 N/A N/A N/A N/A 9 24 Index 8.7 9 N/A N/A N/A N/A 21.0 7.2 Respiratory Related Arousal Count 9 41 N/A N/A N/A N/A 3 10 Index 2.8 3 N/A N/A N/A N/A 6 2 Snoring Analysis Supine Right Left Prone REM NREM Total Snore duration 3.1 min Snores count 63 N/A N/A N/A 12 51 63 Snore mean duration 3.0 Sec Snores index 13 N/A N/A N/A 22.9 12.2 13.4 TST with snoring (%) 1.1% Desaturation Event Summary: Minimum %SpO2 Event Count Mean/Min/Max Duration(sec.) Desaturation Index % Time In Bed > 90 38 38.0 / 17.5 / 60.0 5.2 98.7 86 - 90 1 26.8 / 26.8 / 26.8 10.2 1.3 81 - 85 0 N/A 0.0 0.0 76 - 80 0 N/A 0.0 0.0 71 - 75 0 N/A 0.0 0.0 66 - 70 0 N/A 0.0 0.0 61 - 65 0 N/A 0.0 0.0 56 - 60 0 N/A 0.0 0.0 51 - 55 0 N/A 0.0 0.0 < 50 0 N/A 0.0 0.0 Total REM NREM Awake <50% 0.0 min. 0.0 min. 0.0 min. 0.0 min. 51 - 60% 0.0 min. 0.0 min. 0.0 min. 0.0 min. 61 - 70% 0.0 min. 0.0 min. 0.0 min. 0.0 min. 71 - 80% 0.0 min. 0.0 min. 0.0 min. 0.0 min. 81 - 90% 6.0 min. 0.9 min. 1.5 min. 3.6 min. 91 - 100% 437.5 min. 30.6 min. 250.0 min. 156.9 min. Average 93 94 93 93 Minimum SpO2 85 86 87 85 Desaturation Event Index 5.1 13.3 5.2 3.4 # Desat. Events below 89% 7 4 2 1 Time(%) with Saturation below 89% 0.4 0.1 0.0 0.3 Time(min.) with Saturation below 89% 1.7 0.3 0.2 1.1 Time (mins) REM (mins) NREM (mins) % of TST SpO2 Below 90% 10 4 N6 0.4 SpO2 Below 88% 3 0 0 0 Heart Rate Analysis Min (bpm) Max (bpm) Average (bpm) Awake 56 74 63 NREM 56 73 62 REM 59 69 64 Overall 56 73 62 Supplemental O2 Values Minimum O2 level: None Value Start Time End Time Business And Financial Counsel Comments Mr. Gibson slept in the supine position. PVC's noted. Leg movements noted. No bruxism noted. CPAP was initiated at +4 CMH2O and up-titrated to an level of +12 CMH2O. The patient brought in his own CPAP mask that was used during titration Mr. Gibson awoke to use the restroom 1 time during the night. Mr. Gibson stated I did not sleep as well as I do when I am in my own bed. The final report will be interpreted and signed by a sleep physician. The completed physician report will then be placed in the patient medical record. Therapy Event: Therapy (cm H20) 4 6 7 8 9 10 11 12 Total Time at Pressure (min.) 79.9 104.8 37.4 11.3 5.9 53.1 125.9 25.2 TST at Pressure (min.) 22.4 92.3 24.4 10.8 4.9 51.6 55.9 20.7 # Periods 1 1 1 1 1 1 1 1 Sleep Onset (min.) 57.5 0.0 0.0 0.0 0.0 0.0 0.0 0.0 REM Onset (min.) N/A N/A 27.8 0.0 0.0 0.0 N/A 12.7 Sleep Efficiency % 28 88 65 95 83 97 44 82 Wakefulness (%) 71.9 11.9 34.8 4.4 17.0 2.8 55.6 17.8 Wakefulness (min.) 57.5 12.5 13.0 0.5 1.0 1.5 70.0 4.5 NREM 1 (%) 5.0 4.3 6.7 0.0 0.0 6.6 4.0 11.9 NREM 1 (min.) 4.0 4.5 2.5 0.0 0.0 3.5 5.0 3.0 NREM 2 (%) 23.1 82.8 38.2 0.0 0.0 61.0 37.0 31.7 NREM 2 (min.) 18.4 86.8 14.3 0.0 0.0 32.4 46.6 8.0 NREM 3 (%) 0.0 1.0 0.0 0.0 0.0 29.2 3.4 6.9 NREM 3 (min.) 0.0 1.0 0.0 0.0 0.0 15.5 4.3 1.7 REM (%) 0.0 0.0 20.3 95.6 83.0 0.4 0.0 31.7 REM (min.) 0.0 0.0 7.6 10.8 4.9 0.2 0.0 8.0 # Arousals 8 21 13 1 1 14 10 6 Arousal Index 21.4 13.7 32.0 5.6 12.3 16.3 10.7 17.4 # Snore 7 4 11 6 0 19 10 6 Snore Index 18.7 2.6 27.1 33.3 0.0 22.1 10.7 17.4 AHI 2.7 3.3 7.4 22.2 24.6 8.1 6.4 14.5 AHI Supine 2.7 3.3 7.4 22.2 24.6 8.1 6.4 14.5 AHI Non-Supine N/A N/A N/A N/A N/A N/A N/A N/A NREM AHI 2.7 3.3 7.1 N/A N/A 8.2 6.4 14.1 REM AHI N/A N/A 7.9 22.2 24.6 0.0 N/A 15.0 RDI 2.7 3.3 12.3 22.2 36.9 12.8 7.5 14.5 # Obstructive 0 0 1 2 1 0 2 5 # Central Ap 0 0 0 0 0 0 0 0 # Mixed 0 0 0 0 0 0 0 0 # Hypopneas 1 5 2 2 1 7 4 0 RERAS 0 0 2 0 1 4 1 0 Total Respiratory Events 1 5 5 4 3 11 7 5 Time Below SpO2 89.00% (min.) 0.0 0.1 0.0 0.0 0.3 0.0 0.0 0.1 Mean NREM SpO2 (%) 93 93 93 N/A N/A 93 93 93 Mean REM SpO2 (%) N/A N/A 93 94 94 93 N/A 94 Mean Sleep SpO2 (%) 93 93 93 94 94 93 93 93 Min NREM SpO2 (%) 91 88 89 N/A N/A 90 91 87 Min REM SpO2 (%) N/A N/A 90 89 86 93 N/A 90 Position Supine (min.) 22.4 92.3 24.4 10.8 4.9 51.6 55.9 20.7 Position Non-supine (min.) 0.0 0.0 0.0 0.0 0.0 0.0 0.0 0.0 LM Index Sleep 139.1 179.4 100.9 61.1 49.2 25.6 26.8 60.8 LM Index NREM 139.1 179.4 92.9 N/A N/A 25.7 26.8 51.8 LM Index REM N/A N/A 118.5 61.1 49.2 0.0 N/A 75.0 Mean Heart Rate (bpm) 67 65 64 65 63 60 59 62 Min Heart Rate (bpm) 63 60 60 60 61 56 56 56
--- NOTE | 2016-12-01 16:20 | POLYSOMNOGRAPH REPORT ---
CLINICAL DATA: This 76-year-old male with BMI of 25.8 referred by Ana Arce PA-C, for an updated CPAP titration study. The patient had a sleep study done in 2010, positive for sleep apnea and has been wearing CPAP since. His pressure is unknown, but his last titration study showed that his CPAP pressure was 10 cm of water pressure. SLEEP ARCHITECTURE: Total sleep period was 385.5 minutes. Total sleep time was 283 minutes divided between 251.5 minutes of non-REM sleep and 31.5 minutes of REM sleep. Sleep onset latency was delayed at 57.5 minutes. REM latency was 155 minutes. Sleep efficiency was reduced at 64%. Wake after sleep onset was 103 minutes. Sleep consisted of stage N1 of 8%, N2 of 73%, N3 of 8%, REM 11%. AROUSAL DATA: 74 arousals were recorded for an index of 16 per hour, 48 were spontaneous arousals. PLM DATA: Markedly elevated limb movements during sleep were noted. There were 452 limb movements during sleep noted for an index of 95.8 per hour with arousal index of 3 per hour. RESPIRATORY DATA: The AHI was 7. There were 11 obstructive apneic episodes. The longest duration of apnea was 39 seconds. There were 22 hypopneic episodes. The mean duration of hypopnea was 19.2 seconds. OXIMETRY DATA: Mild nocturnal hypoxemia was seen. Oxygen fiorella was 86% during REM. The mean saturation was 93%. Time below 88% was 3 minutes. EKG: Heart ranged from 56-73 beats per minute. PVCs were noted. PRIVATE MORTGAGE BANKER SAFE'S COMMENTS: The patient slept supine. He brought his own CPAP mask which was utilized. He was started at 4 cm of water pressure and was titrated incrementally up to 12 cm of water pressure. His best AHI was achieved at 11 cm water pressure where he slept for 55.9 minutes with an AHI of 6.4. At 12 cm water pressure, he actually had an AHI of 14.5 over a period of 20.7 minutes. IMPRESSION: Obstructive sleep apnea/hypopnea improved with CPAP. The best water pressure setting appeared to be 11 cm of water pressure, although the patient did have snoring in spite of that pressure level which the crime lab technician attempted to correct with an increased CPAP pressure. However, he ran out of time and could not complete the total titration. RECOMMENDATIONS: The patient could be set at 11 cm of water pressure and followed with compliance and effectiveness data. Another option would be to try auto CPAP for 6 weeks with download of compliance and effectiveness data before setting a final fixed pressure. Clinical correlation is needed. MTDD
== END | disposition home or self-care (01) ==
LOC: C.NEUR 21:00
PROVIDERS: ATTEND Physician Assistant
DX: G47.30 Sleep apnea, unspecified (principal); J45.909 Unspecified asthma, uncomplicated; R10.9 Unspecified abdominal pain; T78.40XA Allergy, unspecified, initial encounter; X58.XXXA Exposure to other specified factors, initial encounter

== ENCOUNTER 2016-12-12 05:24 | Inpatient (IN) | payer BC, OTHER ==
[~2016-12-12] VITALS: Ht 182.9 cm; Wt 81.8 kg
[2016-12-12] VITALS (11 sets, daily range): BP systolic 107–138; BP diastolic 62–72; PULSE 76–98; TEMP 36.4–37.1; O2SAT 90–94; BMI 24.7
[~2016-12-12 05:24] MED LIST changes: -AMOX875T PO; -ASPEC81 PO; -ASPI81TA28 PO; -CEPH500C PO; -CHOL1TAB42 PO; -DXY100 PO; -ESCI10TA17 PO; -FLM4 PO; -GFNSR600 PO; -HYDR-5688 PO; -LEVO75TA5 PO; -MAGN400T6 PO; -MGNO400 PO; -NYSS5 PO; -OXGN; -PRD20 PO; -PRED-301 PO
[2016-12-12] MEDS ORDERED: METHYLPREDNISOLONE 125 MG VIAL IV STA (05:36)
--- NOTE | 2016-12-12 05:40 | EMERGENCY ROOM VISIT NOTE ---
History Report prepared by Triston: Bobby Carrasco Under the Supervision of: Dr. Heidi East D.O. First contact with patient: 05:25 Chief Complaint: SHORTNESS OF BREATH Stated Complaint: SHORT OF BREATH History of Present Illness The patient is a 76 year old male with a history of COPD who presents to the Emergency Room with complaints of worsening shortness of breath since last night. Per nursing staff, the patient has had several days of coughing that produces white sputum. His temperature was 100 at home. His chest feels heavy. The patient decided to come to the ED this morning because of his persistent symptoms. He was prescribed oxygen for his COPD but has not had it set up yet. The patient's wears oxygen and he tried using it but was still feeling short of breath. The patient also tried using his nebulizers and inhalers without relief. The patient has history of pneumonia years ago. He follows up with Dr. Gunderson. He smoked many years ago but does not believe that it is the primary cause of his COPD. Source of History: patient, nursing staff Onset: last night Position: other (respiratory) Quality: other (shortness of breath) Timing: worsening Associated Symptoms: + chest pain, + cough, + fevers Review of Systems See HPI for pertinent positives & negatives. A total of 10 systems reviewed and were otherwise negative. Past Medical & Surgical Medical Problems: (1) Anemia (2) Bronchitis (3) Diabetes (4) Heart disease (5) Heart murmur (6) kidney colic, nish kiendy stones (7) Pneumonia Family History FHx: cancer FHx: heart disease FHx: lung disease Social History Smoking Status: Never Smoker Alcohol Use: occasionally Drug Use: none Marital Status: Housing Status: lives with significant other Occupation Status: retired Current/Historical Medications Scheduled Aclidinium [place] (Tudorza Pressair), 1 PUFF INH BID Arformoterol Tartrate (Brovana), 15 MCG INH BID Cholecalciferol (Vitamin D), 5,000 UNIT PO DAILY Escitalopram (Lexapro), 10 MG PO DAILY Furosemide (Lasix), 20 MG PO DAILY Glimepiride (Glimepiride), 1 MG PO QAM Glucosamine-Chondroitin (Osteo Bi-Flex Regular Str), 1 TAB PO BID Levothyroxine Sodium (Synthroid), 75 MCG PO DAILYBB Metformin Hcl (Glucophage), 1,000 MG PO BID Mometasone Furoate (Nasal) (Mometasone Furoate), 2 SPRAYS VERONICA DAILY Multiple Vitamins W/ Minerals (Centrum), 1 TABLET PO QAM Omeprazole (Omeprazole), 20 MG PO QAM Oxygen (Oxygen), 1.5 LITER NA HS Prednisone (Prednisone), PO UD Prednisone Tab (Prednisone), 10 MG PO DAILY Simvastatin (Zocor), 80 MG PO HS Scheduled PRN Albuterol (Ventolin Hfa), 2 PUFFS INH QID PRN for Shortness of Breath Albuterol Sulf (Proventil 0.083% 2.5MG/3ML), 2.5 MG INH Q4H PRN for SOB/Wheezing Furosemide (Lasix), 20 MG PO DAILY PRN for FLUID Oxymetazoline Hcl (Afrin 0.05% Nasal [place]), 1 SPRAY NA BID PRN for Nasal Congestion Allergies Coded Allergies: Quinolones (Verified Allergy, Severe, ANAPHYLAXIS, 12/12/16) LISTED UNDER MD ORDERS, PT. VERIFIED ANAPHYLAXIS Formoterol (Verified Allergy, Intermediate, RASH, 12/12/16) LISTED UNDER MD ORDERS, PT. VERIFIED RASH ALLERGY Sulfa Antibiotics (Verified Allergy, Intermediate, severe red rash, ) Metoprolol (Verified Allergy, Unknown, RASH, 12/12/16) Moxifloxacin (Verified Allergy, Unknown, swelling, 12/12/16) Ofloxacin (Verified Allergy, Unknown, unknown, 12/12/16) Physical Exam Vital Signs Date Time Temp Pulse Resp B/P Pulse Ox O2 Delivery O2 Flow Rate FiO2 12/12/16 05:54 87 18 90 Room Air 12/12/16 05:42 Room Air 12/12/16 05:34 36.8 90 14 148/75 93 Room Air 12/12/16 05:34 87 12/12/16 05:34 93 Room Air Physical Exam HEENT: Head - normocephalic and atraumatic Pupils are equal, round, and reactive to light. Extraocular eye muscles are intact, and sclera are anicteric. Nose - moist nasal mucosa without discharge. Mouth - moist buccal mucosa. Oropharynx is nonerythematous and there is no tonsillar exudate or edema noted. Neck: Supple; no JVD, nuchal rigidity, cervical lymphadenopathy. Heart: Regular rate and rhythm. There is a normal S1 and S2 with a 3/6 systolic ejection murmur. Lungs: Diffuse inspiratory and expiratory wheezes. Abdomen: Soft, completely nontender, nondistended, with good bowel sounds. There are no palpable pulsatile masses or hepatosplenomegaly. There is no guarding, rigidity, or rebound noted. Extremities: No evidence of cyanosis, or clubbing. Trace pedal edema bilaterally. There are easily palpable peripheral pulses. Skin: hot and dry with good turgor and no rashes. Medical Decision & Procedures ER Provider Diagnostic Interpretation: X-ray results as stated below per interpretation by me. Chest One View Portable: Cardiomegaly. Chronic interstitial changes. Slight right-sided pleural effusion. Laboratory Results 12/12/16 05:44 Red Blood Count 4.14, Mean Corpuscular Volume 82.4, Mean Corpuscular Hemoglobin 25.1, Mean Corpuscular Hemoglobin Concent 30.5, Mean Platelet Volume 9.3, Neutrophils (%) (Auto) 69.2, Lymphocytes (%) (Auto) 12.1, Monocytes (%) (Auto) 13.0, Eosinophils (%) (Auto) 4.5, Basophils (%) (Auto) 0.5, Neutrophils # (Auto ) 5.90, Lymphocytes # (Auto) 1.03, Monocytes # (Auto) 1.11, Eosinophils # (Auto ) 0.38, Basophils # (Auto) 0.04 12/12/16 05:44 Test 12/12/16 05:44 12/12/16 05:59 White Blood Count 8.52 K/uL (4.8-10.8) Red Blood Count 4.14 M/uL (4.7-6.1) Hemoglobin 10.4 g/dL (14.0-18.0) Hematocrit 34.1 % (42-52) Mean Corpuscular Volume 82.4 fL (80-100) Mean Corpuscular Hemoglobin 25.1 pg (25-34) Mean Corpuscular Hemoglobin Concent 30.5 g/dl (32-36) Platelet Count 292 K/uL (130-400) Mean Platelet Volume 9.3 fL (7.4-10.4) Neutrophils (%) (Auto) 69.2 % Lymphocytes (%) (Auto) 12.1 % Monocytes (%) (Auto) 13.0 % Eosinophils (%) (Auto) 4.5 % Basophils (%) (Auto) 0.5 % Neutrophils # (Auto) 5.90 K/uL (1.4-6.5) Lymphocytes # (Auto) 1.03 K/uL (1.2-3.4) Monocytes # (Auto) 1.11 K/uL (0.11-0.59) Eosinophils # (Auto) 0.38 K/uL (0-0.5) Basophils # (Auto) 0.04 K/uL (0-0.2) RDW Standard Deviation 60.1 fL (36.4-46.3) RDW Coefficient of Variation 19.7 % (11.5-14.5) Immature Granulocyte % (Auto) 0.7 % Immature Granulocyte # (Auto) 0.06 K/uL (0.00-0.02) Prothrombin Time 10.8 SECONDS (9.0-12.0) Prothromb Time International Ratio 1.0 (0.9-1.1) Activated Partial Thromboplast Time 27.2 SECONDS (21.0-31.0) Partial Thromboplastin Ratio 1.0 Anion Gap 6.0 mmol/L (3-11) Est Creatinine Clear Calc Drug Dose 84.6 ml/min Estimated GFR () 99.7 Estimated GFR (Non- 86.0 BUN/Creatinine Ratio 12.1 (10-20) Calcium Level 9.0 mg/dl (8.5-10.1) Total Bilirubin 0.3 mg/dl (0.2-1) Aspartate Amino Transf (AST/SGOT) 11 U/L (15-37) Alanine Aminotransferase (ALT/SGPT) 24 U/L (12-78) Alkaline Phosphatase 56 U/L (45-117) Total Creatine Kinase 169 U/L (39-308) Creatine Kinase MB 2.1 ng/ml (0.5-3.6) Creatine Kinase MB Ratio 1.2 (0-3.0) Troponin I 0.047 ng/ml (0-0.045) Pro-B-Type Natriuretic Peptide 316 pg/ml (0-1800) Total Protein 6.8 gm/dl (6.4-8.2) Albumin 3.6 gm/dl (3.4-5.0) Globulin 3.2 gm/dl (2.5-4.0) Albumin/Globulin Ratio 1.1 (0.9-2) Bedside Lactic Acid Venous 2.25 mmol/L (0.90-1.70) Laboratory results per my review. Medications Administered Medications (Trade) Dose Ordered Sig/Clair Route Start Time Stop Time Status Last Admin Dose Admin Albuterol/ Ipratropium (Duoneb) 12 ml ONE ONCE INH 12/12/16 05:45 12/12/16 05:46 DC 12/12/16 05:53 12 ML Methylprednisolone Sodium Succinate (Solu-Medrol IV) 125 mg NOW STAT IV 12/12/16 05:36 12/12/16 05:37 DC 12/12/16 05:47 125 MG Procedure Medications administered include Solu-Medrol IV, DuoNeb INH. ECG Indication: SOB/dyspnea Rate (beats per minute): 87 Rhythm: normal sinus Findings: no acute ischemic change, no ectopy ED Course 0530: Past medical records reviewed. The patient was evaluated in room B6. A complete history and physical exam was performed. A septic protocol was performed. A twelve-lead EKG was obtained as described above. A portable chest x-ray was obtained. 0536: Solu-Medrol 125 mg IV. 0545: DuoNeb 12 ml INH -hour-long. 0630: Dr. Houser [facility] at change of shift. 0645: The patient is continuing his hour-long nebulizer treatment. I reviewed the laboratory studies, x-ray, and EKG with the patient. Medical Decision The patient is a 76 year old male who presents to the ED with shortness of breath. Differential diagnosis includes COPD exacerbation, pneumonia, bronchitis , CHF, cardiac ischemia. Laboratory interpretation: white count 8.2, hemoglobin 10.4 which is about baseline for him, normal renal function, glucose 138, coags normal, lactic acid 2.2, LFTs normal, troponin 0.047. The patient has been prescribed oxygen a couple weeks ago but has not yet had set up. He has developed a significant her doctor cough of white sputum, increasing shortness of breath, and chest tightness over the past 2-3 days. The patient could not tolerate the exertional. As of breath anymore and called 911. There is no leukocytosis or fever. There is no obvious focal infiltrate on chest x-ray. It seems that the patient is having an acute exacerbation of his COPD. Impression Primary Impression: COPD exacerbation Additional Impression: Chest tightness Scribe Attestation The scribe's documentation has been prepared under my direction and personally reviewed by me in its entirety. I confirm that the note above accurately reflects all work, treatment, procedures, and medical decision making performed by me. Departure Information Dispostion Being Evaluated By Hospitalist Referrals Artis Gunderson M.D. (PCP) Patient Instructions My [facility] Problem Qualifiers
[2016-12-12] MEDS ORDERED: ALBUT/IPRATROP 3MG/0.5MG NEB 3 ML VIAL INH ONE (05:45)
[2016-12-12 06:05] LABS: BASO % 0.5 %; BASO ABS # 0.04 K/uL (0-0.2); COMPLETE YES; EOS % 4.5 %; HEMATOCRIT 34.1 % (42-52); IG% 0.7 %; LYMPH % 12.1 %; LYMPH ABS # 1.03 K/uL (1.2-3.4); MEAN CELL VOLUME 82.4 fL (80-100); MEAN CORPUSCULAR HEMOGLOBIN 25.1 pg (25-34); MEAN CORPUSCULAR HGB CONC 30.5 g/dl (32-36); MEAN PLATELET VOLUME 9.3 fL (7.4-10.4); NEUT % 69.2 %; PLATELET COUNT 292 K/uL (130-400); RED BLOOD COUNT 4.14 M/uL (4.7-6.1); WHITE BLOOD COUNT 8.52 K/uL (4.8-10.8)
[2016-12-12] MEDS ORDERED: ESCI10TA17 PO (06:13)
[2016-12-12] MEDS ORDERED: FURO-85 PO (06:13)
[2016-12-12] MEDS ORDERED: MOME6000 NAE (06:16)
[2016-12-12 06:17] LABS: BUN/CREATININE RATIO 12.1 (10-20); CREATININE 0.79 mg/dl (0.60-1.40); POTASSIUM 3.8 mmol/L (3.5-5.1)
[2016-12-12] MEDS ORDERED: OXGN (06:18)
[2016-12-12] MEDS ORDERED: CHOL1TAB42 PO (06:18)
[2016-12-12] MEDS ORDERED: PRED10TA PO (06:21)
[2016-12-12 06:32] LABS: PROTHROMBIN TIME (PATIENT) 10.8 SECONDS (9.0-12.0)
[2016-12-12 06:34] LABS: ALB/GLOB RATIO 1.1 (0.9-2); CKMB/CK RATIO 1.2 (0-3.0)
--- NOTE | 2016-12-12 07:23 | DIAGNOSTIC IMAGING REPORT ---
CHEST ONE VIEW PORTABLE HISTORY: Short of breath. COMPARISON: Chest 09/28/2016. FINDINGS: Stable blunting of the right lateral costophrenic sulcus and bone loss within the right hemithorax. The heart remains borderline enlarged. The left lung is clear. No pneumothorax. Small scarlike density at the right lung base. No evidence for pulmonary edema. IMPRESSION: No significant change compared to the prior study. Stable blunting of the right lateral costophrenic sulcus and mild volume loss within the right hemithorax. Electronically signed by: Sandor Murdock M.D. 12/12/2016 7:21 AM Dictated Date/Time: 12/12/2016 7:20 AM
--- NOTE | 2016-12-12 07:39 | History and Physical ---
History & Physical Date & Time of Service: Dec 12, 2016 at 07:39 Chief Complaint: Short Of Breath Primary Care Physician: Artis Gunderson M.D. History of Present Illness Source: patient, family This is a 76 yo M with PMHx of COPD, environmental allergies, heart disease with HTN, hyperlipidemia, chronic diastolic CHF with EF >70% in 2015, aortic stenosis, hypothyroidism, depression who presents to the ED this morning with increased shortness of breath. Pt is here with his , Swathi. Pt reports his breathing seemed to worsen last evening but that this has been worsening for a few days now. He reports a feeling of heaviness in the chest, but denies acute pain. He reports a cough which is productive of white sputum. He has been using OTC decongestants for environmental allergies and pollen. He see's Constantine Noriega PA-C with pulmonary medicine, and was supposed to have supplemental O2 delivered to their home, however it has not been. He is supposed to wear 1.5 L at night per 's report. has her own O2 at home, so placed him on 1.5L last evening but did not improve his sx. The patient has been using his inhalers as directed, and then also used his albuterol inhaler for shortness of breath last night. He denies any fever, sweats, chills, or sick contacts. He reports occasional lightheadedness and dizziness when he stands up. In the ED a CXR was obtained showing stable blunting of the right lateral costophrenic sulcus and mild volume loss within the right hemithorax. EKG was reviewed and is without any ST wave depression or signs of ischemia. Trop-I is slightly increased at 0.047. There is no leukocytosis or left shift. POC lactic acid was 2.45. Hgb is 10.4, and PLT= 292 Past Medical/Surgical History Medical Problems: (1) Bronchitis Status: Chronic (2) Diabetes Status: Chronic (3) Heart disease Status: Chronic (4) Heart murmur Status: Chronic (5) Pneumonia Status: Chronic Family History FHx: cancer FHx: heart disease FHx: lung disease Social History Smoking Status: Former Smoker Smokeless Tobacco Use: No Alcohol Use: none Drug Use: none Marital Status: Housing status: lives with family Occupational Status: retired Immunizations History of Influenza Vaccine: Yes Influenza Vaccine Date: Sep 01, 2013 History of Tetanus Vaccine?: uptd History of Pneumococcal: Yes Pneumococcal Date: Sep 02, 2012 History of Hepatitis B Vaccine: No Multi-Drug Resistant Organisms History of MDRO: No Allergies Coded Allergies: Quinolones (Verified Allergy, Severe, ANAPHYLAXIS, 12/12/16) LISTED UNDER MD ORDERS, PT. VERIFIED ANAPHYLAXIS Formoterol (Verified Allergy, Intermediate, RASH, 12/12/16) LISTED UNDER MD ORDERS, PT. VERIFIED RASH ALLERGY Sulfa Antibiotics (Verified Allergy, Intermediate, severe red rash, ) Metoprolol (Verified Allergy, Unknown, RASH, 12/12/16) Moxifloxacin (Verified Allergy, Unknown, swelling, 12/12/16) Ofloxacin (Verified Allergy, Unknown, unknown, 12/12/16) Home Medications Scheduled Aclidinium [place] (Tudorza Pressair), 1 PUFF INH BID Arformoterol Tartrate (Brovana), 15 MCG INH BID Cholecalciferol (Vitamin D), 5,000 UNIT PO DAILY Escitalopram (Lexapro), 10 MG PO DAILY Furosemide (Lasix), 20 MG PO DAILY Glimepiride (Glimepiride), 1 MG PO QAM Glucosamine-Chondroitin (Osteo Bi-Flex Regular Str), 1 TAB PO BID Levothyroxine Sodium (Synthroid), 75 MCG PO DAILYBB Metformin Hcl (Glucophage), 1,000 MG PO BID Mometasone Furoate (Nasal) (Mometasone Furoate), 2 SPRAYS VERONICA DAILY Multiple Vitamins W/ Minerals (Centrum), 1 TABLET PO QAM Omeprazole (Omeprazole), 20 MG PO QAM Oxygen (Oxygen), 1.5 LITER NA HS Prednisone (Prednisone), PO UD Prednisone Tab (Prednisone), 10 MG PO DAILY Simvastatin (Zocor), 80 MG PO HS Scheduled PRN Albuterol (Ventolin Hfa), 2 PUFFS INH QID PRN for Shortness of Breath Albuterol Sulf (Proventil 0.083% 2.5MG/3ML), 2.5 MG INH Q4H PRN for SOB/Wheezing Furosemide (Lasix), 20 MG PO DAILY PRN for FLUID Oxymetazoline Hcl (Afrin 0.05% Nasal [place]), 1 SPRAY NA BID PRN for Nasal Congestion Review of Systems Constitutional: No chills, No fatigue, No fever, No weight loss Eyes: No diplopia, No redness ENT: No sore throat, No trouble swallowing Respiratory: + cough, + dyspnea at rest, + dyspnea on exertion, + shortness of breath, + sputum (white) Cardiovascular: No chest pain, No palpitations Abdomen: No constipation, No diarrhea, No nausea, No pain, No vomiting Musculoskeletal: No calf pain, No joint pain, No swelling Genitourinary - Male: No dysuria, No hematuria Neurologic: No balance problems (walks without assistance), No numbness/ tingling Endocrine: No fatigue Integumentary: No itch, No rash Allergic / Immunologic: + environmental allergies, + seasonal allergies Physical Exam Vital Signs Date Time Temp Pulse Resp B/P Pulse Ox O2 Delivery O2 Flow Rate FiO2 12/12/16 06:42 111 20 90/65 97 Nebulizer 12/12/16 05:54 87 18 90 Room Air 12/12/16 05:42 Room Air 12/12/16 05:34 36.8 90 14 148/75 93 Room Air 12/12/16 05:34 87 12/12/16 05:34 93 Room Air General Appearance: WD/WN, no apparent distress Head: normocephalic, atraumatic Eyes: PERRL, EOMI ENT: pharynx normal, + pertinent finding (hard of hearing) Neck: supple, + JVD (mild) Respiratory/Chest: chest non-tender, no respiratory distress, no accessory muscle use, + pertinent finding (on 2 L O2 via NC, + coarse breath sounds, + expiratory wheezing throughout, slightly diminished at the right base.) Cardiovascular: + tachycardia, + systolic murmur (+ trill, Grade IV/V) Abdomen/GI: normal bowel sounds, non tender, soft, no organomegaly Back: normal inspection Extremities/Musculoskelatal: no calf tenderness, no pedal edema, normal range of motion Neurologic/Psych: alert, normal mood/affect, oriented x 3 Skin: normal color, warm/dry Diagnostics Laboratory Results Results Past 24 Hours Test 12/12/16 05:31 12/12/16 05:44 12/12/16 05:59 Range/Units Creatine Kinase MB Ratio 1.2 0-3.0 White Blood Count 8.52 4.8-10.8 K/uL Red Blood Count 4.14 4.7-6.1 M/uL Hemoglobin 10.4 14.0-18.0 g/dL Hematocrit 34.1 42-52 % Mean Corpuscular Volume 82.4 80-100 fL Mean Corpuscular Hemoglobin 25.1 25-34 pg Mean Corpuscular Hemoglobin Concent 30.5 32-36 g/dl Platelet Count 292 130-400 K/uL Mean Platelet Volume 9.3 7.4-10.4 fL Neutrophils (%) (Auto) 69.2 % Lymphocytes (%) (Auto) 12.1 % Monocytes (%) (Auto) 13.0 % Eosinophils (%) (Auto) 4.5 % Basophils (%) (Auto) 0.5 % Neutrophils # (Auto) 5.90 1.4-6.5 K/uL Lymphocytes # (Auto) 1.03 1.2-3.4 K/uL Monocytes # (Auto) 1.11 0.11-0.59 K/uL Eosinophils # (Auto) 0.38 0-0.5 K/uL Basophils # (Auto) 0.04 0-0.2 K/uL RDW Standard Deviation 60.1 36.4-46.3 fL RDW Coefficient of Variation 19.7 11.5-14.5 % Immature Granulocyte % (Auto) 0.7 % Immature Granulocyte # (Auto) 0.06 0.00-0.02 K/uL Prothrombin Time 10.8 9.0-12.0 SECONDS Prothromb Time International Ratio 1.0 0.9-1.1 Activated Partial Thromboplast Time 27.2 21.0-31.0 SECONDS Partial Thromboplastin Ratio 1.0 Sodium Level 145 136-145 mmol/L Potassium Level 3.8 3.5-5.1 mmol/L Chloride Level 110 98-107 mmol/L Carbon Dioxide Level 29 21-32 mmol/L Anion Gap 6.0 3-11 mmol/L Blood Urea Nitrogen 10 7-18 mg/dl Creatinine 0.79 0.60-1.40 mg/dl Est Creatinine Clear Calc Drug Dose 84.6 ml/min Estimated GFR () 99.7 Estimated GFR (Non- 86.0 BUN/Creatinine Ratio 12.1 10-20 Random Glucose 138 70-99 mg/dl Calcium Level 9.0 8.5-10.1 mg/dl Total Bilirubin 0.3 0.2-1 mg/dl Aspartate Amino Transf (AST/SGOT) 11 15-37 U/L Alanine Aminotransferase (ALT/SGPT) 24 12-78 U/L Alkaline Phosphatase 56 45-117 U/L Total Creatine Kinase 169 39-308 U/L Creatine Kinase MB 2.1 0.5-3.6 ng/ml Troponin I 0.047 0-0.045 ng/ml Pro-B-Type Natriuretic Peptide 316 0-1800 pg/ml Total Protein 6.8 6.4-8.2 gm/dl Albumin 3.6 3.4-5.0 gm/dl Globulin 3.2 2.5-4.0 gm/dl Albumin/Globulin Ratio 1.1 0.9-2 Bedside Lactic Acid Venous 2.25 0.90-1.70 mmol/L Microbiology Results 12/12/16 Blood Culture, Received Pending 12/12/16 Blood Culture, Received Pending Diagnostic Radiology CHEST ONE VIEW PORTABLE HISTORY: Short of breath. COMPARISON: Chest 09/28/2016. FINDINGS: Stable blunting of the right lateral costophrenic sulcus and bone loss within the right hemithorax. The heart remains borderline enlarged. The left lung is clear. No pneumothorax. Small scarlike density at the right lung base. No evidence for pulmonary edema. IMPRESSION: No significant change compared to the prior study. Stable blunting of the right lateral costophrenic sulcus and mild volume loss within the right hemithorax. Electronically signed by: Sandor Murdock M.D. 12/12/2016 7:21 AM Dictated Date/Time: 12/12/2016 7:20 AM The status of this report is Signed. EKG Vent. rate 87 BPM [place] interval 184 ms QRS duration 72 ms QT/QTc 348/418 ms P-R-T axes * [address] wave inversions or signs of ischemia Impression Assessment and Plan This is a 76 yo M with PMHx of COPD, environmental allergies, heart disease with HTN, hyperlipidemia, chronic diastolic CHF with EF >70% in 2014, aortic stenosis, hypothyroidism, depression who presents to the ED this morning with increased shortness of breath. COPD exacerbation - Will admit to med/surg - Administered Solumedrol 125 in the ED, will continue on 40 mg Q8H for now and titrate down tomorrow. Hold home chronic prednisone 10 mg, can do a slow taper off this to wean once stable - Cont Duonebs QID and Q2H prn shortness of breath - Continue on home inhalers Tudorza and Brovana - Pt supposed to wear 1.5 L O2 via NC QHS - CXR reviewed showing blunting at the right costophrenic angle, volume loss in the right hemithorax, no acute pulmonary edema, no infiltrate - Follows with Constantine Noriega as an outpatient - will need f/u with him Elevated Troponin - Mild, only 0.046, will trend with CKMB x 2 more sets to rule out myocardial involvement - Likely demand ischemia with tachycardia secondary to worsening shortness of breath - EKG was reviewed and does not show ST wave inversions or signs of ischemia Chronic diastolic CHF - Last Echo obtained in 2014 showing left ventricular hypertrophy and EF >70%. - Continue on daily Lasix 20 mg for now. No pedal edema, but has mild JVD. Hypothyroidism - Cont levothyroxine 75 mcg daily Depression - Cont lexapro 10 mg daily Hyperlipidemia - Cont simvastatin 80 mg QHS DM - Hold glimepiride for now - ISS with accuchecks achs - Check HA1C DVT ppx: Teds, SCDs, lovenox 40 mg subq CODE STATUS: FULL CODE Disposition: From home, lives with , likely can discharge in 1-2 days pending response to steroids, PT/OT to eval Level of Care Med/Surg Advanced Directives Existing Advance Directive: No Existing Living Will: No Existing Power of [employer] School Principal: No Existing Health Care Proxy: No Resuscitation Status FULL RESUSCITATION VTE Prophylaxis VTE Risk Assessment Done? Y/N: Yes Risk Level: Low Given or contraindicated: Enoxaparin (Lovenox)SQ, T.E.D. Stockings, SCD's
[2016-12-12] MEDS ORDERED: ALBUTEROL 0.083% NEBU SOLN 3 ML VIAL INH PRN (08:00)
[2016-12-12] MEDS ORDERED: ACETAMINOPHEN 325 MG TAB PO PRN (08:00)
[2016-12-12] MEDS ORDERED: ONDANSETRON INJ 2 MG/ML 2 ML VIAL IV PRN (08:00)
[2016-12-12] MEDS ORDERED: GLUCAGON FOR INJ 1 MG VIAL SQ PRN (08:00)
[2016-12-12] MEDS ORDERED: OXYMETAZOLINE HCL 0.05% NA SPR 15 ML BTL PRN (08:00)
[2016-12-12] MEDS ORDERED: GLUCOSE 10 TABS/TUBE PO PRN (08:00)
[2016-12-12] MEDS ORDERED: NON-FORMULARY MEDICATION (Glucosamine-Chondroitin (Osteo Bi-Flex Regular Str) 1 TAB) PO SCH (09:00)
[2016-12-12] MEDS ORDERED: POLYETHYLENE (MIRALAX) 17 GM PACK PO PRN (09:30)
[2016-12-12] MEDS ORDERED: GLUCOSE 40% GEL 15 GM TUBE PO PRN (09:30)
[2016-12-12] MEDS ORDERED: DEXTROSE 50% 50 ML SYR IV PRN (09:30)
[2016-12-12] MEDS: CHOLECALCIFEROL 1000 INTER.UNIT TAB PO SCH (09:40)
[2016-12-12] MEDS: PANTOprazole SOD 40 MG TAB PO SCH (09:40)
[2016-12-12] MEDS: ESCITALOPRAM OXALATE 10 MG TAB PO SCH (09:40)
[2016-12-12] MEDS: FUROSEMIDE 20 MG TAB PO SCH (09:40)
[2016-12-12] MEDS: ENOXAPARIN 40 MG/0.4 ML SYR SQ SCH (09:41)
[2016-12-12] MEDS ORDERED: NURSING VERBAL MED ORDER ONE (12:45)
[2016-12-12] MEDS ORDERED: INSULIN ASPART 100 UNITS/ML 3 ML PEN SC SCH (13:00)
[2016-12-12] MEDS: METHYLPREDNISOLONE IV 40 MG in SYRINGE 0 ML IV SCH ×2 (14:32→22:29)
[2016-12-12] MEDS: ALBUT/IPRATROP 3MG/0.5MG NEB 3 ML VIAL INH SCH ×2 (15:55→19:41)
[2016-12-12] MEDS: INSULIN ASPART 100 UNITS/ML 3 ML PEN SC SCH ×2 (18:28→21:04)
--- NOTE | 2016-12-12 18:34 | Pulmonary Consultation ---
History General Date of Service: Dec 12, 2016. Stated Complaint: Copd Exacerbation 76-year-old male admitted to [facility] with a week worth of progressive SOB and white sputum which became significantly worse last night requiring ED evaluation. The patient also noted chest heaviness associated with his SOB which resolved after a nebulizer treatment. He denies: pleurisy, fever, chills , night sweats, weight loss, sinusitis, FITZGERALD or hemoptysis He has a PmHx significant for: Atrial fibrillation/flutter (diagnosed 03/2015), life threating GI while on Eliquis, DM type 2, obstructive sleep apnea (10cm H20 ), prostate cancer (diagnosed 09/1999 status post prostatectomy), ACOS, former tobacco use, h/o H. pylori infection, hyperlipidemia, anemia, rheumatic fever and chronic right sided pleural effusion. He is on chronic prednisone 10mg daily. Work-Up: EKG: NSR with 1st degree AV block H/H: 10/34 BUN/Cr: 10/0.79 Troponin I: 0.047-0.056 BNP: 316 CXR: stable when compared to 09/28/2016 Previous CTA 12/01/2015 CT abd 12/29/2015 Microbiology Hx: 1. BAL (12/26/13) Priscila Glabrata 2. Right Pleural Effusion (11/30/15) a. Cryptococcus Neoformans HPI The patient is a 76 year old male who presents to [facility] with complaints of Copd Exacerbation. The patient's primary care provider is Artis Gunderson M.D.. 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 pylori) infection prostate cancer Hydroureteronephrosis Hyperlipidemia Hypophosphatemia Hypothyroidism Internal hemorrhoids Kidney stone on left side emt intermediate current use of systemic steroids Nocturnal hypoxia Osteopenia S/P thoracentesis Sleep apnea TR (tricuspid regurgitation) ActiveProblems_10_twCiteListControlEnd PastMedicalHistory_10_ twCiteListControlStart History of closed fracture rheumatic fever syncope Pleural effusion, right Past Medical History: A Fib, arthritis, asthma, cancer - prostate, COPD, coronary artery disease, depression, diabetes, GERD, high cholesterol, hypothyroidism, kidney stones, myocardial infarction, other Past Surgical History: 1. Bronchoscopy 2. Cataract Surgery 3. Colonoscopy: 4. EGD: 5. Capsule Endoscopy: 6. Cystoscopy With Insertion Of Ureteral Stent 7. Prostate Surgery 8. Rotator Cuff Repair 9. Thoracentesis Past Surgical History: colonoscopy, lithotripsy, other Family History FHx: cancer FHx: heart disease FHx: lung disease 1. Family history of Skin Cancer 2. Family history of Ovarian Cancer 3. Denied: Family history of Colon Cancer 4. Family history of Heart Disease 5. Denied: Family history of Prostate Cancer 6. Family history of Stroke Syndrome Social History Alcohol Use (History) Denied: History of Drug Use Denied: History of Home Environment Domestic Violence Denied: History of Housing Without Smoke Detectors Marital History - Currently Retired From Work Uses Safety Equipment Seatbelts Hx Tobacco Use In Past Year?: No Smoking Status: Former Smoker Alcohol: never Drug Use: none Marital status: Housing status: lives with family Occupational Status: retired Immunizations History of Influenza Vaccine: Yes Influenza Vaccine Date: Sep 01, 2013 History of Tetanus Vaccine?: uptd History of Pneumococcal: Yes Pneumococcal Date: Sep 02, 2012 History of Hepatitis B Vaccine: No Date Of Other Immunizations: Sep 02, 2012 History of MDRO History of MDRO: No Allergies Coded Allergies: Quinolones (Verified Allergy, Severe, ANAPHYLAXIS, 12/12/16) LISTED UNDER MD ORDERS, PT. VERIFIED ANAPHYLAXIS Formoterol (Verified Allergy, Intermediate, RASH, 12/12/16) LISTED UNDER MD ORDERS, PT. VERIFIED RASH ALLERGY Metoprolol (Verified Allergy, Intermediate, RASH, 12/12/16) Sulfa Antibiotics (Verified Allergy, Intermediate, severe red rash, ) Moxifloxacin (Verified Allergy, Unknown, swelling, 12/12/16) Ofloxacin (Verified Allergy, Unknown, unknown, 12/12/16) Current Medications Reported Home Medications Medications Dose Route/Sig Max Daily Dose Days Date Category Dose Instructions Prednisone 10 Mg Tab PO UD 12/12/16 Reported TAKE 4 TABLETS DAILY FOR 2 DAYS,THEN 3 FOR 2,2 FOR 2,1 FOR 2 THEN DISCONTINUE Prednisone 10 Mg Tab 10 Mg PO DAILY 12/12/16 Reported Oxygen Gas 1.5 Liter NA HS 12/12/16 Reported Vitamin D (Cholecalciferol) 5,000 Unit Tab 5,000 Unit PO DAILY 12/12/16 Reported Mometasone Furoate (Mometasone Furoate (Nasal)) 50 Mcg/Act Spr 2 Sprays VERONICA DAILY 12/12/16 Reported Lasix (Furosemide) 20 Mg Tab 20 Mg PO DAILY PRN 12/12/16 Reported Lasix (Furosemide) 20 Mg Tab 20 Mg PO DAILY 12/12/16 Reported Lexapro (Escitalopram Oxalate) 10 Mg Tab 10 Mg PO DAILY 12/12/16 Reported Synthroid (Levothyroxine Sodium) 75 Mcg Tab 75 Mcg PO DAILYBB 30 10/04/16 Rx Brovana (Arformoterol Tartrate) 15 Mcg/2 Ml Neb 15 Mcg INH BID 09/29/16 Reported Ventolin Hfa (Albuterol) 60 Puffs/5400 Mcg Aers 2 Puffs INH QID PRN 09/29/16 Reported Proventil 0.083% 2.5MG/3ML (Albuterol Sulf) 2.5 Mg/3 Ml Nebu 2.5 Mg INH Q4H PRN 09/29/16 Reported Afrin 0.05% Nasal [place] (Oxymetazoline Hcl) 1 Btl [place] 1 [place] NA BID PRN 03/11/15 Reported Glimepiride 1 Mg Tab 1 Mg PO QAM 04/17/14 Reported Tudorza Pressair (Aclidinium [place]) 400 Mcg/Act Aer 1 Puff INH BID 12/26/13 Reported Osteo Bi-Flex Regular Str (Glucosamine-Chondroitin) 1 Tab Tab 1 Tab PO BID 12/26/13 Reported Zocor (Simvastatin) 80 Mg Tab 80 Mg PO HS 12/01/12 Reported Omeprazole 20 Mg Tab 20 Mg PO QAM 12/01/12 Reported Glucophage (Metformin Hcl) 500 Mg Tab 1,000 Mg PO BID 12/01/12 Reported Centrum (Multiple Vitamins W/ Minerals) 1 Tab Tab 1 Tablet PO QAM 12/01/12 Reported Physical Physical Exam Vital Signs: Date Time Temp Pulse Resp B/P Pulse Ox O2 Delivery O2 Flow Rate FiO2 12/12/16 15:55 89 18 91 Room Air 12/12/16 15:41 36.4 79 18 126/65 94 Nasal Cannula 1.0 12/12/16 10:35 91 Room Air 12/12/16 09:05 37.1 98 20 107/62 91 Room Air 120/63 12/12/16 08:42 102 18 137/59 91 12/12/16 08:00 91 Room Air 12/12/16 07:50 106 18 137/63 91 Room Air 12/12/16 07:10 89 Room Air 12/12/16 06:42 111 20 90/65 97 Nebulizer 12/12/16 05:54 87 18 90 Room Air 12/12/16 05:42 Room Air 12/12/16 05:34 36.8 90 14 148/75 93 Room Air 12/12/16 05:34 87 12/12/16 05:34 93 Room Air General Appearance: NO APPARENT DISTRESS Head: NORMOCEPHALIC, ATRAUMATIC Eyes: PERRLA, NO DISCHARGE, EOMI, SCLERAE NORMAL ENT: NORMAL EAR EXAM, NORMAL NASAL EXAM, NORMAL MOUTH EXAM, NORMAL THROAT EXAM , NORMAL DENTAL EXAM Neck: NORMAL RANGE OF MOTION, NO TENDERNESS, TRACHEA MIDLINE, NO STRIDOR Respiratory: other (rhochi with decreased breath sounds greatest in the right annel-thorax) Cardiovasular: REGULAR RATE/RHYTHM, NORMAL S1S2, NO M/G/R, NO MURMUR Abdomen: NON TENDER, NORMAL BOWEL SOUNDS, NO REBOUND, NO MASSES, NO GUARDING, NO ORGANOMEGALY, NORMAL RECTAL EXAM Genitourinary - Male: EXTERNAL GENITALIA NORMAL Back: NORMAL INSPECTION, NO MIDLINE TENDERNESS, NO CVA TENDERNESS, NO PARAVERTEBRAL TTP Upper Extremities: NO EDEMA, NO DEFORMITY, NORMAL ROM Lower Extremities: NO EDEMA, NO DEFORMITY, NORMAL ROM Pulses: carotid (R) (2+), carotid (L) (2+), posterior tibial (R), posterior tibial (L) (2+) Neuro: ALERT, ORIENTED x 3, NORMAL MOTOR EXAM, NORMAL SENSATION, NORMAL CEREBELLAR EXAM, NORMAL SPEECH Reflexes: biceps (R) (2+), bicpes (L) (2+), achilles (R) (1+), achilles (L) (1+ ) Babinski Testing: right (downgoing), left (downgoing) Psychiatric: NORMAL AFFECT, NO SUICIDAL IDEATION Diagnostics Labs Results Past 24 Hours Test 12/12/16 05:31 12/12/16 05:44 12/12/16 05:59 12/12/16 11:08 Range/Units Creatine Kinase MB Ratio 1.2 0-3.0 White Blood Count 8.52 4.8-10.8 K/uL Red Blood Count 4.14 4.7-6.1 M/uL Hemoglobin 10.4 14.0-18.0 g/dL Hematocrit 34.1 42-52 % Mean Corpuscular Volume 82.4 80-100 fL Mean Corpuscular Hemoglobin 25.1 25-34 pg Mean Corpuscular Hemoglobin Concent 30.5 32-36 g/dl Platelet Count 292 130-400 K/uL Mean Platelet Volume 9.3 7.4-10.4 fL Neutrophils (%) (Auto) 69.2 % Lymphocytes (%) (Auto) 12.1 % Monocytes (%) (Auto) 13.0 % Eosinophils (%) (Auto) 4.5 % Basophils (%) (Auto) 0.5 % Neutrophils # (Auto) 5.90 1.4-6.5 K/uL Lymphocytes # (Auto) 1.03 1.2-3.4 K/uL Monocytes # (Auto) 1.11 0.11-0.59 K/uL Eosinophils # (Auto) 0.38 0-0.5 K/uL Basophils # (Auto) 0.04 0-0.2 K/uL RDW Standard Deviation 60.1 36.4-46.3 fL RDW Coefficient of Variation 19.7 11.5-14.5 % Immature Granulocyte % (Auto) 0.7 % Immature Granulocyte # (Auto) 0.06 0.00-0.02 K/uL Prothrombin Time 10.8 9.0-12.0 SECONDS Prothromb Time International Ratio 1.0 0.9-1.1 Activated Partial Thromboplast Time 27.2 21.0-31.0 SECONDS Partial Thromboplastin Ratio 1.0 Sodium Level 145 136-145 mmol/L Potassium Level 3.8 3.5-5.1 mmol/L Chloride Level 110 98-107 mmol/L Carbon Dioxide Level 29 21-32 mmol/L Anion Gap 6.0 3-11 mmol/L Blood Urea Nitrogen 10 7-18 mg/dl Creatinine 0.79 0.60-1.40 mg/dl Est Creatinine Clear Calc Drug Dose 84.6 ml/min Estimated GFR () 99.7 Estimated GFR (Non- 86.0 BUN/Creatinine Ratio 12.1 10-20 Random Glucose 138 70-99 mg/dl Calcium Level 9.0 8.5-10.1 mg/dl Total Bilirubin 0.3 0.2-1 mg/dl Aspartate Amino Transf (AST/SGOT) 11 15-37 U/L Alanine Aminotransferase (ALT/SGPT) 24 12-78 U/L Alkaline Phosphatase 56 45-117 U/L Total Creatine Kinase 169 39-308 U/L Creatine Kinase MB 2.1 0.5-3.6 ng/ml Troponin I 0.047 0-0.045 ng/ml Pro-B-Type Natriuretic Peptide 316 0-1800 pg/ml Total Protein 6.8 6.4-8.2 gm/dl Albumin 3.6 3.4-5.0 gm/dl Globulin 3.2 2.5-4.0 gm/dl Albumin/Globulin Ratio 1.1 0.9-2 Bedside Lactic Acid Venous 2.25 0.90-1.70 mmol/L Bedside Glucose 355 70-99 mg/dl Test 12/12/16 12:00 12/12/16 12:19 12/12/16 16:23 Range/Units Creatine Kinase MB Ratio 0-3.0 Creatine Kinase MB 2.0 0.5-3.6 ng/ml Troponin I 0.056 0-0.045 ng/ml Bedside Glucose 328 70-99 mg/dl Microbiology Results 12/12/16 Blood Culture, Received Pending 12/12/16 Blood Culture, Received Pending Diagnostic Radiology CXR: stable when compared to 09/28/2016 EKG EKG: NSR with 1st degree AV block Impression Assessment and Plan 76 y/o male admitted for COPD exacerbation 1) COPD: Patient is noted to have COPD with steroid dependence with his last FEV1: 38% from PFT's 02/07/2012. I agree at this time with the IV steroids but we can hold the prednisone at this time. I also agree with continuing his Brovana and nebulizers. Suggest we hold off on Daliresp at this time and continue O2 support to maintain SaO2 > 88% or notable SOB. 2) Pleural Effusion: Patient had a right sided thoracentesis performed 2015 which grew out Cryptococcus Neoformans. 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 At this time I suggest we consult ID, send for Crypto antigen titers, obtain an HIV study and repeat a HRCT of the thorax as previous imaging show and collapse of the right lower lobe sub-segments with an associated loculated pleural effusion.
--- NOTE | 2016-12-12 19:33 | DIAGNOSTIC IMAGING REPORT ---
CT OF THE CHEST WITHOUT IV CONTRAST CLINICAL HISTORY: Loculated pleural effusion. COPD exacerbation. COMPARISON STUDY: Chest CT December 01, 2015 and chest radiograph performed earlier today. CT DOSE: 340.12 mGy.cm TECHNIQUE: Axial images of the chest were obtained without IV contrast. Images were reviewed in the axial, sagittal, and coronal planes. IV contrast was not administered for this examination. FINDINGS: No enlarged thoracic lymph nodes are present. The heart is moderately enlarged. There is no pericardial effusion. There is a small amount of mucus or debris within the trachea. Lungs are suboptimally assessed due to respiratory motion. A small right pleural effusion has decreased in size since exam of December 01, 2015. There is mild right lower lobe volume loss. Linear opacities favor atelectasis. There is no consolidation to suggest pneumonia. There is no pneumothorax. Bony thorax and upper abdomen are unremarkable. IMPRESSION: 1. Near complete resolution of the right pleural effusion since CT of December 01, 2015. 2. Mild right lower lobe volume loss. Linear opacities suggest atelectasis. No consolidation to suggest pneumonia. 3. Small amount of mucus within the trachea. 4. Moderate cardiomegaly. Electronically signed by: Cesar Faye M.D. 12/12/2016 7:30 PM Dictated Date/Time: 12/12/2016 7:25 PM
[2016-12-12] MEDS: ARFORMOTEROL TART 15MCG/2ML VIAL INH SCH (19:41)
[2016-12-12] MEDS: SIMVASTATIN 80 MG TAB PO SCH (21:03)
[2016-12-13] VITALS (13 sets, daily range): BP systolic 119–145; BP diastolic 60–76; PULSE 70–85; TEMP 36.4–36.8; O2SAT 90–96
[2016-12-13] MEDS: ALBUT/IPRATROP 3MG/0.5MG NEB 3 ML VIAL INH SCH ×5 (05:00→20:05)
[2016-12-13] MEDS: METHYLPREDNISOLONE IV 40 MG in SYRINGE 0 ML IV SCH ×2 (05:19→17:51)
[2016-12-13] MEDS: LEVOTHYROXINE 75 MCG TAB PO SCH (05:19)
[2016-12-13 05:35] LABS: COMPLETE YES; HEMATOCRIT 32.7 % (42-52); IG% 0.5 %; LYMPH % 9.2 %; LYMPH ABS # 1.01 K/uL (1.2-3.4); MEAN CELL VOLUME 81.1 fL (80-100); MEAN CORPUSCULAR HEMOGLOBIN 24.6 pg (25-34); MEAN CORPUSCULAR HGB CONC 30.3 g/dl (32-36); MEAN PLATELET VOLUME 9.5 fL (7.4-10.4); MONO % 6.1 %; NEUT % 84.2 %; PLATELET COUNT 282 K/uL (130-400); RED BLOOD COUNT 4.03 M/uL (4.7-6.1); WHITE BLOOD COUNT 11.02 K/uL (4.8-10.8)
--- NOTE | 2016-12-13 05:48 | Progress Note ---
Progress Note Date of Service Dec 13, 2016. Progress Note Phoned regarding single positive blood culture for gram positive cocci. Uncertain if chains or clusters Possible that with single positive culture, it is likely contaminant. Second blood culture is pending at this time. Will schedule for Vancomycin IV, though if second culture is negative this can likely be stopped. Will sign out to day team.
[2016-12-13] MEDS ORDERED: VANCOMYCIN INJ 2,000 MG in SODIUM CHLORIDE 0.9% 500ML 500 ML IV ONE (06:00)
[2016-12-13] MEDS ORDERED: VANCOMYCIN CONSULT ACTIVE PRN (06:00)
[2016-12-13 06:25] LABS: BUN/CREATININE RATIO 19.8 (10-20); CALCIUM 9.2 mg/dl (8.5-10.1); CREATININE 0.89 mg/dl (0.60-1.40); POTASSIUM 4.4 mmol/L (3.5-5.1)
[2016-12-13 06:26] LABS: ESTIMATED AVERAGE GLUCOSE 166 mg/dl; HA1C FLAG Normal (Normal)
[2016-12-13] MEDS: ARFORMOTEROL TART 15MCG/2ML VIAL INH SCH ×2 (07:22→20:00)
--- NOTE | 2016-12-13 08:07 | Hospitalist Progress Note ---
Hospitalist Progress Note Date of Service Dec 13, 2016. Subjective Pt evaluation today including: conversation w/ patient Pain: None PO Intake: Good Voiding: no voiding problems The patient was seen and examined this morning. Pt reports his breathing is a little better today. He had a coughing fit this morning which was rough, and reports bringing up more white sputum. He admits to still feeling the heaviness in his chest, but denies pain or radiation. He was up walking in the room today and does not feel as short of breath with exertion. Overnight he wore 1.5 L O2 via NC, currently is not wearing O2. He denies fever, sweats and chills. Constitutional: No chills, No fever, No sweats Eyes: No diplopia, No redness ENT: No nasal symptoms, No sore throat, No trouble swallowing Respiratory: + cough, + dyspnea on exertion, + sputum, + wheezing, No dyspnea at rest Cardiovascular: No chest pain, No orthopnea, No palpitations Abdomen: No constipation, No diarrhea, No nausea, No pain, No vomiting Musculoskeletal: No joint pain, No muscle pain, No swelling Neurologic: No balance problems, No weakness Endo: No fatigue Skin: No itch, No rash Objective Vital Signs Date Time Temp Pulse Resp B/P Pulse Ox O2 Delivery O2 Flow Rate FiO2 12/13/16 07:09 36.6 71 20 119/60 95 Nasal Cannula 2.0 12/13/16 05:00 73 20 94 Nasal Cannula 2.0 12/13/16 04:41 36.7 70 20 126/67 92 Nasal Cannula 2.0 12/13/16 04:00 Nasal Cannula 2.0 12/13/16 00:00 Nasal Cannula 2.0 12/12/16 23:25 36.6 76 18 116/63 94 3.0 12/12/16 20:00 91 Nasal Cannula 2.0 12/12/16 19:55 36.9 85 20 138/72 92 Nasal Cannula 2.0 12/12/16 19:41 92 20 91 Room Air 12/12/16 16:00 91 Nasal Cannula 2.0 12/12/16 15:55 89 18 91 Room Air 12/12/16 15:41 36.4 79 18 126/65 94 Nasal Cannula 1.0 12/12/16 10:35 91 Room Air 12/12/16 09:05 37.1 98 20 107/62 91 Room Air 120/63 12/12/16 08:42 102 18 137/59 91 12/12/16 08:00 91 Room Air Physical Exam Notes: General Appearance: WD/WN, no apparent distress Head: normocephalic, atraumatic Eyes: PERRL, EOMI ENT: pharynx normal, + pertinent finding (slightly hard of hearing) Neck: supple, + JVD (mild) Respiratory/Chest: chest non-tender, no respiratory distress, no accessory muscle use, + pertinent finding (on room air, + expiratory wheeze on the right, slightly diminished at the right base.) Cardiovascular: + tachycardia, + systolic murmur (+ thrill, Grade IV/V) Abdomen/GI: normal bowel sounds, non tender, soft, no organomegaly Back: normal inspection Extremities/Musculoskelatal: no calf tenderness, no pedal edema, normal range of motion Neurologic/Psych: alert, normal mood/affect, oriented x 3 Skin: normal color, warm/dry Laboratory Results Last 24 Hours Test 12/12/16 11:08 12/12/16 12:00 12/12/16 12:19 12/12/16 16:23 Bedside Glucose 355 mg/dl 328 mg/dl Creatine Kinase MB Ratio Creatine Kinase MB 2.0 ng/ml Troponin I 0.056 ng/ml Test 12/12/16 20:00 12/12/16 20:10 12/12/16 20:22 12/13/16 05:11 Creatine Kinase MB Ratio Creatine Kinase MB 2.6 ng/ml Troponin I 0.087 ng/ml Bedside Glucose 298 mg/dl White Blood Count 11.02 K/uL Red Blood Count 4.03 M/uL Hemoglobin 9.9 g/dL Hematocrit 32.7 % Mean Corpuscular Volume 81.1 fL Mean Corpuscular Hemoglobin 24.6 pg Mean Corpuscular Hemoglobin Concent 30.3 g/dl Platelet Count 282 K/uL Mean Platelet Volume 9.5 fL Neutrophils (%) (Auto) 84.2 % Lymphocytes (%) (Auto) 9.2 % Monocytes (%) (Auto) 6.1 % Eosinophils (%) (Auto) 0.0 % Basophils (%) (Auto) 0.0 % Neutrophils # (Auto) 9.28 K/uL Lymphocytes # (Auto) 1.01 K/uL Monocytes # (Auto) 0.67 K/uL Eosinophils # (Auto) 0.00 K/uL Basophils # (Auto) 0.00 K/uL RDW Standard Deviation 57.9 fL RDW Coefficient of Variation 19.3 % Immature Granulocyte % (Auto) 0.5 % Immature Granulocyte # (Auto) 0.06 K/uL Sodium Level 139 mmol/L Potassium Level 4.4 mmol/L Chloride Level 105 mmol/L Carbon Dioxide Level 27 mmol/L Anion Gap 7.0 mmol/L Blood Urea Nitrogen 18 mg/dl Creatinine 0.89 mg/dl Est Creatinine Clear Calc Drug Dose 75.1 ml/min Estimated GFR () 94.9 Estimated GFR (Non- 81.9 BUN/Creatinine Ratio 19.8 Random Glucose 245 mg/dl Estimated Average Glucose 166 mg/dl Hemoglobin A1c 7.4 % Calcium Level 9.2 mg/dl Immunoglobulin G 619.0 mg/dL Immunoglobulin A 116.0 mg/dL Immunoglobulin M 112.0 mg/dL Assessment and Plan This is a 76 yo M with PMHx of COPD, environmental allergies, heart disease with HTN, hyperlipidemia, chronic diastolic CHF with EF >70% in 2014, aortic stenosis, hypothyroidism, depression who presents to the ED this morning with increased shortness of breath. COPD exacerbation - Will decrease Solumedrol to 40 mg Q12H. - Hold home chronic prednisone 10 mg, can do a slow taper off this to wean once stable - Duonebs QID and Q2H prn shortness of breath - Continue on home inhalers Tudorza and Brovana - Pt supposed to wear 1.5 L O2 via NC QHS - CXR reviewed showing blunting at the right costophrenic angle, volume loss in the right hemithorax, no acute pulmonary edema, no infiltrate - Pulm on board- appreciate recs; hx of right sided thoracentesis performed 07/2016 which grew out Cryptococcus Neoformans. 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 - Continue Vanc for now - ID consulted and labs ordered; follow Crypto antigen titers, obtain an HIV study and repeat a HRCT of the thorax as previous imaging show and collapse of the right lower lobe sub-segments with an associated loculated pleural effusion. Elevated Troponin - Trop increased from 0.046 --> 0.087 on the third set, will ask cardiology to see with hx of diastolic CHF although he is uncompensated - Question if demand ischemia with tachycardia secondary to worsening shortness of breath - Will repeat EKG this morning - Repeat 2D echo Chronic diastolic CHF - Last Echo obtained in 2014 showing left ventricular hypertrophy and EF >70%. - will order repeat - Continue on daily Lasix 20 mg for now. No pedal edema, but has mild JVD. Hypothyroidism - Cont levothyroxine 75 mcg daily Depression - Cont lexapro 10 mg daily Hyperlipidemia - Cont simvastatin 80 mg QHS DM - Hold glimepiride for now - ISS with accuchecks achs - Check HA1C DVT ppx: Teds, SCDs, lovenox 40 mg subq CODE STATUS: FULL CODE Disposition: From home, lives with
[2016-12-13] MEDS: INSULIN ASPART 100 UNITS/ML 3 ML PEN SC SCH ×4 (08:56→21:04)
[2016-12-13] MEDS: CHOLECALCIFEROL 1000 INTER.UNIT TAB PO SCH (08:58)
[2016-12-13] MEDS: FUROSEMIDE 20 MG TAB PO SCH (08:58)
[2016-12-13] MEDS: ESCITALOPRAM OXALATE 10 MG TAB PO SCH (08:59)
[2016-12-13] MEDS: PANTOprazole SOD 40 MG TAB PO SCH (08:59)
[2016-12-13] MEDS: ENOXAPARIN 40 MG/0.4 ML SYR SQ SCH (09:01)
--- NOTE | 2016-12-13 10:24 | Medical Consult ---
Consultation Date of Consultation: Dec 13, 2016. Attending Physician: David Villatoro MD, PhD Reason for Consultation: + Crypto in pleural fluid History of Present Illness Patient is a 76-year-old male who presented to the emergency department with complaints of worsening shortness of breath the night prior to admission. The patient has had multiple days of coughing with white sputum production and low- grade fever at home. He states that he had been having some heaviness of his chest following coughing episodes. The patient does have history of COPD and has had thoracentesis and BAL in the past. Last year, the patient had thoracentesis completed at which time cryptococcus neoformans grew from the patient's pleural fluid. He does also have history of Priscila glabrata growing from pleural fluid as well. He does not remember receiving treatment at time , but has been relatively well since that time. He states that he otherwise has not been experiencing fever, sweats, chills, or night sweats at home up until his current episode. Since admission, the patient did have blood cultures drawn, and 1 blood culture is growing gram-positive cocci. The other blood culture is pending. The patient did also have a chest CT since admission. He is noted to have near complete resolution of his right pleural effusion since November of 2015. Mild right lower lobe volume loss and a linear opacities suggesting atelectasis was noted, and no consolidation to suggest pneumonia was seen on exam. The patient's white blood cell count today was 11.02. His creatinine was 0.89. The patient is also on chronic prednisone therapy due to his COPD. I did discuss this patient with Dr. Mendez and Dr. Zimmer. Past Medical/Surgical History Medical Problems: (1) Acute GI bleeding Status: Acute (2) Anticoagulated Status: Acute (3) Calculus of right kidney Status: Acute (4) Chest tightness Status: Acute (5) COPD exacerbation Status: Acute (6) Hydronephrosis with urinary obstruction due to renal calculus Status: Acute (7) Renal colic Status: Acute (8) Right flank pain Status: Acute (9) Right flank pain Status: Acute (10) Symptomatic anemia Status: Acute Medical Problems: (1) Anemia (2) Bronchitis (3) Diabetes (4) Heart disease (5) Heart murmur (6) kidney colic, nish kiendy stones (7) Pneumonia Family History FHx: cancer FHx: heart disease FHx: lung disease Noncontributory Social History Smoking Status: Former Smoker Smokeless Tobacco Use: No Alcohol Use: none Drug Use: none Marital Status: Housing Status: lives with significant other Occupation Status: retired Allergies Coded Allergies: Quinolones (Verified Allergy, Severe, ANAPHYLAXIS, 12/12/16) LISTED UNDER MD ORDERS, PT. VERIFIED ANAPHYLAXIS Formoterol (Verified Allergy, Intermediate, RASH, 12/12/16) LISTED UNDER MD ORDERS, PT. VERIFIED RASH ALLERGY Metoprolol (Verified Allergy, Intermediate, RASH, 12/12/16) Sulfa Antibiotics (Verified Allergy, Intermediate, severe red rash, ) Moxifloxacin (Verified Allergy, Unknown, swelling, 12/12/16) Ofloxacin (Verified Allergy, Unknown, unknown, 12/12/16) Home Medications Reported Home Medications Medications Dose Route/Sig Max Daily Dose Days Date Category Dose Instructions Prednisone 10 Mg Tab PO UD 12/12/16 Reported TAKE 4 TABLETS DAILY FOR 2 DAYS,THEN 3 FOR 2,2 FOR 2,1 FOR 2 THEN DISCONTINUE Prednisone 10 Mg Tab 10 Mg PO DAILY 12/12/16 Reported Oxygen Gas 1.5 Liter NA HS 12/12/16 Reported Vitamin D (Cholecalciferol) 5,000 Unit Tab 5,000 Unit PO DAILY 12/12/16 Reported Mometasone Furoate (Mometasone Furoate (Nasal)) 50 Mcg/Act Spr 2 Sprays VERONICA DAILY 12/12/16 Reported Lasix (Furosemide) 20 Mg Tab 20 Mg PO DAILY PRN 12/12/16 Reported Lasix (Furosemide) 20 Mg Tab 20 Mg PO DAILY 12/12/16 Reported Lexapro (Escitalopram Oxalate) 10 Mg Tab 10 Mg PO DAILY 12/12/16 Reported Synthroid (Levothyroxine Sodium) 75 Mcg Tab 75 Mcg PO DAILYBB 30 10/04/16 Rx Brovana (Arformoterol Tartrate) 15 Mcg/2 Ml Neb 15 Mcg INH BID 09/29/16 Reported Ventolin Hfa (Albuterol) 60 Puffs/5400 Mcg Aers 2 Puffs INH QID PRN 09/29/16 Reported Proventil 0.083% 2.5MG/3ML (Albuterol Sulf) 2.5 Mg/3 Ml Nebu 2.5 Mg INH Q4H PRN 09/29/16 Reported Afrin 0.05% Nasal [place] (Oxymetazoline Hcl) 1 Btl [place] 1 [place] NA BID PRN 03/11/15 Reported Glimepiride 1 Mg Tab 1 Mg PO QAM 04/17/14 Reported Tudorza Pressair (Aclidinium [place]) 400 Mcg/Act Aer 1 Puff INH BID 12/26/13 Reported Osteo Bi-Flex Regular Str (Glucosamine-Chondroitin) 1 Tab Tab 1 Tab PO BID 12/26/13 Reported Zocor (Simvastatin) 80 Mg Tab 80 Mg PO HS 12/01/12 Reported Omeprazole 20 Mg Tab 20 Mg PO QAM 12/01/12 Reported Glucophage (Metformin Hcl) 500 Mg Tab 1,000 Mg PO BID 12/01/12 Reported Centrum (Multiple Vitamins W/ Minerals) 1 Tab Tab 1 Tablet PO QAM 12/01/12 Reported Current Inpatient Medications Current Inpatient Medications Medications (Trade) Dose Ordered Sig/Clair Route Start Time Stop Time Status Last Admin Dose Admin Enoxaparin Sodium (Lovenox Inj) 40 mg QAM SQ 12/12/16 09:00 01/11/17 08:59 12/13/16 09:01 40 MG Acetaminophen (Tylenol Tab) 650 mg Q4H PRN PO 12/12/16 08:00 01/11/17 07:59 Polyethylene (Miralax Powder Packet) 17 gm DAILY PRN PO 12/12/16 09:30 01/11/17 09:29 Ondansetron HCl (Zofran Inj) 4 mg Q6H PRN IV 12/12/16 08:00 01/11/17 07:59 Insulin Aspart (novoLOG ASPART) SLIDING SCALE G... ACHS SC 12/12/16 11:00 01/11/17 10:59 Future hold 12/13/16 08:56 11 UNITS Glucose (Glucose Chew Tab) 4-8 Tablets 4 Tabl... UD PRN PO 12/12/16 08:00 01/11/17 07:59 Glucagon (Glucagon Inj) 1 mg UD PRN SQ 12/12/16 08:00 01/11/17 07:59 Albuterol Sulfate (Ventolin 0.083% 2.5MG/3ML Neb) 2.5 mg Q4H PRN INH 12/12/16 08:00 01/11/17 07:59 Arformoterol Tartrate (Brovana 15MCG/ 2ML Neb Soln) 15 mcg BIDR INH 12/12/16 09:00 01/11/17 08:59 12/13/16 07:22 15 MCG Escitalopram Oxalate (Lexapro Tab) 10 mg DAILY PO 12/12/16 09:00 01/11/17 08:59 12/13/16 08:59 10 MG Furosemide (Lasix Tab) 20 mg DAILY PO 12/12/16 09:00 01/11/17 08:59 12/13/16 08:58 20 MG Levothyroxine Sodium (Synthroid Tab) 75 mcg DAILYBB PO 12/13/16 06:30 01/12/17 06:59 12/13/16 05:19 75 MCG Oxymetazoline HCl (Afrin 0.05% Nasal [place]) 1 sprays BID PRN NA 12/12/16 08:00 01/11/17 07:59 Prednisone (PredniSONE TAB) 10 mg DAILY PO 12/12/16 09:00 01/11/17 08:59 12/13/16 08:59 10 MG Simvastatin (Zocor Tab) 80 mg HS PO 12/12/16 21:00 01/11/17 20:59 12/12/16 21:03 80 MG Pantoprazole Sodium (Protonix Tab) 40 mg QAM PO 12/12/16 09:00 01/11/17 08:59 12/13/16 08:59 40 MG Cholecalciferol (Vitamin D Tab) 5,000 inter.unit QAM PO 12/12/16 09:00 01/11/17 08:59 12/13/16 08:58 5,000 INTER.UNIT Albuterol/ Ipratropium (Duoneb) 3 ml QIDR INH 12/12/16 12:00 01/11/17 11:59 12/13/16 05:00 3 ML Glucose (Glucose 40% Gel) 15-30 GRAMS 15 GRAMS... UD PRN PO 12/12/16 09:30 01/11/17 09:29 Dextrose (Dextrose 50% 50ML Syringe) 25-50ML OF 50% DW IV FOR... UD PRN IV 12/12/16 09:30 01/11/17 09:29 Vancomycin HCl 1 ea 1 ea UD PRN N/A 12/13/16 06:00 01/12/17 05:59 Methylprednisolone Sodium Succinate/ Syringe (Solu-Medrol IV/ Syringe) 0.64 ml @ 1.5 mls/min Q12H IV 12/13/16 18:00 01/12/17 17:59 Review of Systems Constitutional: + fatigue, No chills, No fever, No sweats Eyes: No worsening of vision ENT: No hearing loss Respiratory: + cough, + dyspnea on exertion, + shortness of breath Cardiovascular: No chest pain Abdomen: + diarrhea (on and off- semi-chronic), No nausea, No pain Musculoskeletal: No joint pain Genitourinary - Male: No dysuria, No hematuria, No urinary frequency, No urinary urgency Integumentary: No itch, No rash Physical Exam Date Time Temp Pulse Resp B/P Pulse Ox O2 Delivery O2 Flow Rate FiO2 12/13/16 07:22 76 20 96 Nasal Cannula 2.0 12/13/16 07:09 36.6 71 20 119/60 95 Nasal Cannula 2.0 12/13/16 05:00 73 20 94 Nasal Cannula 2.0 12/13/16 04:41 36.7 70 20 126/67 92 Nasal Cannula 2.0 12/13/16 04:00 Nasal Cannula 2.0 12/13/16 00:00 Nasal Cannula 2.0 12/12/16 23:25 36.6 76 18 116/63 94 3.0 12/12/16 20:00 91 Nasal Cannula 2.0 12/12/16 19:55 36.9 85 20 138/72 92 Nasal Cannula 2.0 12/12/16 19:41 92 20 91 Room Air 12/12/16 16:00 91 Nasal Cannula 2.0 12/12/16 15:55 89 18 91 Room Air 12/12/16 15:41 36.4 79 18 126/65 94 Nasal Cannula 1.0 12/12/16 10:35 91 Room Air General Appearance: WD/WN, no apparent distress Head: normocephalic, atraumatic Eyes: normal inspection, sclerae normal ENT: hearing grossly normal Neck: supple, trachea midline Respiratory/Chest: chest non-tender, no respiratory distress, no accessory muscle use, + rhonchi (right lower lobe), + wheezing (mild throughout ) Cardiovascular: regular rate, rhythm Abdomen/GI: normal bowel sounds, non tender, soft Back: normal inspection Extremities/Musculoskelatal: normal inspection Neurologic/Psych: alert, normal mood/affect Skin: normal color, warm/dry, no rash Laboratory Results Item Value Date Time Blood Culture - Preliminary Resulted 12/12/16 0544 Blood Gram Positive Cocci Blood Culture Received 12/12/16 0542 Blood Pending Last 24 Hours Test 12/12/16 11:08 12/12/16 12:00 12/12/16 12:19 12/12/16 16:23 Bedside Glucose 355 mg/dl 328 mg/dl Creatine Kinase MB Ratio Creatine Kinase MB 2.0 ng/ml Troponin I 0.056 ng/ml Test 12/12/16 20:00 12/12/16 20:10 12/12/16 20:22 12/13/16 05:11 Creatine Kinase MB Ratio Creatine Kinase MB 2.6 ng/ml Troponin I 0.087 ng/ml Bedside Glucose 298 mg/dl White Blood Count 11.02 K/uL Red Blood Count 4.03 M/uL Hemoglobin 9.9 g/dL Hematocrit 32.7 % Mean Corpuscular Volume 81.1 fL Mean Corpuscular Hemoglobin 24.6 pg Mean Corpuscular Hemoglobin Concent 30.3 g/dl Platelet Count 282 K/uL Mean Platelet Volume 9.5 fL Neutrophils (%) (Auto) 84.2 % Lymphocytes (%) (Auto) 9.2 % Monocytes (%) (Auto) 6.1 % Eosinophils (%) (Auto) 0.0 % Basophils (%) (Auto) 0.0 % Neutrophils # (Auto) 9.28 K/uL Lymphocytes # (Auto) 1.01 K/uL Monocytes # (Auto) 0.67 K/uL Eosinophils # (Auto) 0.00 K/uL Basophils # (Auto) 0.00 K/uL RDW Standard Deviation 57.9 fL RDW Coefficient of Variation 19.3 % Immature Granulocyte % (Auto) 0.5 % Immature Granulocyte # (Auto) 0.06 K/uL Sodium Level 139 mmol/L Potassium Level 4.4 mmol/L Chloride Level 105 mmol/L Carbon Dioxide Level 27 mmol/L Anion Gap 7.0 mmol/L Blood Urea Nitrogen 18 mg/dl Creatinine 0.89 mg/dl Est Creatinine Clear Calc Drug Dose 75.1 ml/min Estimated GFR () 94.9 Estimated GFR (Non- 81.9 BUN/Creatinine Ratio 19.8 Random Glucose 245 mg/dl Estimated Average Glucose 166 mg/dl Hemoglobin A1c 7.4 % Calcium Level 9.2 mg/dl Immunoglobulin G 619.0 mg/dL Immunoglobulin A 116.0 mg/dL Immunoglobulin M 112.0 mg/dL Test 12/13/16 07:33 Bedside Glucose 257 mg/dl Assessment & Plan Patient with 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 He did previously have multiple thoracentesis/BAL from which he's grown Cryptococcus (11/2015) and Priscila Glabrata. I discussed this case with both Dr. Zimmer and Dr. Mendez. Will order Serum Cryptococcal Ag, fungal blood culture and HIV screen. Would recommend holding treatment/further invasive testing pending this test and treating his likely COPD flare otherwise. We will follow. PROVIDER ADDENDUM: Patient examined and reviewed with Ms. Lopez. Agree with above assessment.
--- NOTE | 2016-12-13 13:36 | CARDIOLOGY CONSULTATION ---
DATE OF CONSULTATION: 12/13/2016 REFERRING PHYSICIAN: Leah Vásquez PA-C. CHIEF COMPLAINT: Chest pain. HISTORY OF PRESENT ILLNESS: Mr. Maninder Gibson is a 76-year-old gentleman with a history of suspected coronary artery disease and atrial flutter who presented to [facility] on the 12 of December with symptoms of progressive worsening shortness of breath. The patient and his stated that over several days, his breathing had become worse and eventually he sought medical attention. The patient had tried standard remedies at home including use of his 's supplemental oxygen without notable relief. During this period of time and in the initial portion of his hospitalization, he did complain of some chest tightness or congestion as he described it. That appeared to improve with use of breathing treatments and coughing. At the time of the interview, the patient claims to be feeling well with an improvement in his breathing but still an element of dyspnea. He denies any chest discomfort currently. Generally speaking, the patient is an active individual, is able to perform routine activities around the house without limiting dyspnea. He denies symptoms of orthopnea. He is able to perform activities outside of the home, but occasionally is limited by dyspnea such as would occur with ambulating around grocery store. He is not currently using supplemental oxygen but was discovered on polysomnography to desaturate at night and is currently awaiting the arrival of supplemental oxygen for use at nighttime. PAST MEDICAL HISTORY: Significant for: 1. Atrial flutter. He had an episode in 2014, which resolved with use of amiodarone. He has not had a clinical recurrence. 2. Presumed coronary artery disease. The patient did have elevations in cardiac biomarkers at the time of his admission for atrial flutter, but subsequent stress echocardiography did not reveal any abnormalities and generally speaking, he does not have symptoms of chest discomfort. 3. Chronic obstructive pulmonary disease. 4. Diastolic dysfunction. 5. Reactive airway disease. 6. Nephrolithiasis. 7. Cataracts. 8. Chronic sinusitis. 9. Depression. 10. Diabetes mellitus. 11. Diverticulosis. 12. Esophageal reflux disease. 13. History of gastrointestinal hemorrhage of unclear source. The patient was on Eliquis at that time. 14. Hyperlipidemia. 15. Hypothyroidism. 16. Obstructive sleep apnea. PAST SURGICAL HISTORY: Significant for cataracts, cystoscopy, prostate surgery for prostate cancer, rotator cuff repair. FAMILY HISTORY: Significant for heart disease, but what does not sound like premature coronary disease. SOCIAL HISTORY: Includes the history of alcohol use but never tobacco abuse. OUTPATIENT MEDICATIONS: Included albuterol, Brovana, escitalopram, furosemide, glimepiride, metformin, omeprazole, prednisone, simvastatin. MEDICAL ALLERGIES: INCLUDE FORMOTEROL, METOPROLOL, MOXIFLOXACIN, OTHER QUINOLONES WELL SULFA ANTIBIOTICS. REVIEW OF SYSTEMS: A complete 10-system review of systems was performed and the pertinent positives are noted in the history of present illness, the remainder being negative. He states that generally speaking, he does not have chest pain. He has not had any significant reflux lately or difficulty with eating. He does have abdominal pain which waxes and wanes in severity, it may be related to coughing quite a bit. He has not had any hematemesis or melena. His bowel habits have remained stable. He states occasionally he will have swelling in his lower extremities but recently that has not been a problem. He has not noticed any significant edema. He has occasional dizziness when changing position from lying down or sitting to standing, which is transient in nature and not changed recently. He has not suffered a syncopal episode. He has not noticed any sense of palpitations. PHYSICAL EXAMINATION: GENERAL: He was alert and oriented. His mood and affect appeared normal. He answered all questions appropriately. CURRENT VITAL SIGNS: Include a blood pressure 129/66 with a pulse of 85. HEENT: Sclerae are anicteric. Pupils were equal, reactive to light and accommodation. Extraocular movements were intact. Palpation of submandibular region did not reveal any significant lymphadenopathy. The carotids are palpable bilaterally. I do not appreciate any bruits on auscultation. I did not appreciate any jugular venous distention. Thyroid is not enlarged. LUNGS: Auscultation of both lung art reveal distant breath sounds with poor excursion and some decreased breath sounds in the right base. He did have some expiratory wheezing on exam as well. He had normal respiratory effort however without the use of accessory muscles. CARDIAC: Revealed him to be in a regular rhythm. He had very soft systolic ejection murmur but S1, S2 were otherwise normal. The PMI was not markedly displaced on palpation. ABDOMEN: Protuberant but nontender on palpation. EXTREMITIES: He had palpable radial pulses bilaterally that were equal in intensity. I do not appreciate any cyanosis or clubbing. Evaluation of lower extremities did not reveal any significant peripheral edema. I did not appreciate any rashes on exam today. LABORATORY STUDIES: Obtained today include sodium 139, potassium of 4.4, BUN was 18, creatinine was 0.89. White count was 11.0, hemoglobin was 9.9, platelet count was 282. The patient underwent a CT scan of the chest yesterday which revealed right lower lobe volume loss but no evidence of pneumonia. Single view chest x-ray obtained at the time of admission, which revealed blunting of the right costophrenic angle and volume loss in the right hemithorax. I reviewed the source images of the patient's EKGs which revealed a sinus rhythm with occasional atrial ectopy and some minor nonspecific ST and T-wave changes, essentially unchanged from prior. Reviewed the patient's telemetry. I have reviewed his old stress echocardiogram report and last echocardiogram report, which is 2014. ASSESSMENT AND PLAN: 1. Elevated cardiac biomarkers: The elevation of the patient's biomarkers is quite small and given his degree of respiratory difficulty, likely with an element of hypoxia over the past several days, not entirely unfounded. I do not believe he has suffered recent acute coronary syndrome to explain his decompensation, nor was his chest pain consistent with acute coronary syndrome as it tended to improve with coughing and use of bronchodilators. There has been a suspicion that he harbors an element of fixed coronary artery disease, although his stress echocardiogram in 2015 was entirely normal. He does not generally endorse symptoms of chest discomfort with ambulation or activity. Currently, I think we can treat him conservatively and not perform any additional stress testing or certainly angiography. I think maintenance of good oxygenation, "stable hemoglobin" and potentially a daily aspirin would be all that is required. Aspirin use may be contraindicated, given his history of gastrointestinal hemorrhage on apixaban in the absence of a defined source for his bleeding. 2. Diastolic heart failure. The patient's N-terminal proBNP was normal at the time of admission, suggesting that his decompensation was not cardiac mediated. An echocardiogram has been ordered for today and dysfunction can be reassessed. In the past, he has had normal systolic function and once again, I doubt that this played a role in his current symptoms or recent decompensation. 3. Atrial flutter. The patient had an episode of atrial flutter 2 years ago. This is likely related to his underlying lung disease. He has not had a clinical recurrence and has not been anticoagulated due to a history of gastrointestinal hemorrhage. At this point, it would seem reasonable to omit any additional anticoagulation in the absence of a documented arrhythmia. At that time, he could be considered for more definitive therapy of atrial flutter such as catheter based treatment. FINAL RECOMMENDATIONS: 1. No additional cardiac testing. 2. Review currently ordered echocardiogram for any notable changes. 3. Consider daily low dose aspirin therapy for cardiac prophylaxis, provided this is not contraindicated due to his history of gastrointestinal hemorrhage.
--- NOTE | 2016-12-13 18:12 | ECHOCARDIOGRAM REPORT ---
*NOTICE TO RECEIVING LIBERTARIAN AGENCY This information is strictly Confidential and protected under [place] law. [place] law prohibits you from making any further disclosure of this information unless further disclosure is expressly permitted by the written consent of the person to whom it pertains or is authorized by law. A general authorization for the release of medical or other information is not sufficient for this purpose. Hospital accepts no responsibility if the information is made available to any other person, INCLUDING THE PATIENT. Interpretation Summary * Name: ALAYNA LATHAM Study Date: 12/13/2016 02:15 PM BP: 119/60 mmHg * Patient Location: [facility]\S\N280\S\1 HR: 74 * : 1940 (M/d/yyyy) Gender: Male Height: 72 in * Age: 76 yrs Ethnicity: CA Weight: 180 lb * Ordering Physician: Laquita Vásquez * Performed By: Danii Carlson RDCS * * Reason For Study: Congestive heart failure * BSA: 2.0 m2 * Normal biventricular systolic function. * Mild concentric left ventricular hypertrophy. * Left ventricular diastolic dysfunction. * Normal chamber dimensions. * Trace mitral,tricuspid, and aortic regurgitation. * Borderline aortic root dilatation. * Compared to an echo of 11/16/2014 there has been no significant interval change. * -- Conclusions -- * Aortic valve sclerosis moderate, without significant aortic valvular stenosis. Procedure Details * A complete two-dimensional transthoracic echocardiogram was performed (2D, M-mode, Doppler and color flow Doppler). * The study was technically limited. * The study was technically difficult. Left Ventricle * The left ventricle is normal in size. * There is mild concentric left ventricular hypertrophy. * Ejection Fraction = 65-70%. * Left ventricular systolic function is normal. * A full diastolic examination was done with clinical findings of Class I diastolic dysfunction. * The left ventricular wall motion is normal. Right Ventricle * The right ventricle is normal in size and function. Atria * The left atrial size is normal. * Right atrial size is normal. * No ASD detected; PFO is not assessed. Mitral Valve * There is mild mitral annular calcification. * There is no mitral valve stenosis. * There is trace mitral regurgitation. Tricuspid Valve * The tricuspid valve is not well visualized. * There is no tricuspid stenosis. * There is trace tricuspid regurgitation. * Right ventricular systolic pressure is normal. Aortic Valve * The aortic valve is not well visualized. * Aortic valve sclerosis moderate, without significant aortic valvular stenosis. * Trace aortic regurgitation. Pulmonic Valve * The pulmonic valve is not well visualized. * The pulmonary valve is inadequately visualized, but the Doppler data is adequate for interpretation. * There is no pulmonic valvular stenosis. * There is no significant pulmonary regurgitation. Great Vessels * Borderline aortic root dilatation. Pericardium/Pleural * There is no pericardial effusion. Great Vessels * Normal inferior vena cava diameter and respiratory variation suggests normal central venous pressure. MMode 2D Measurements and Calculations IVSd 1.2 cm LVIDd 4.6 cm LVIDs 2.9 cm LVPWd 1.2 cm IVS/LVPW 0.98 FS 35.7 % EDV(Teich) 95.9 ml ESV(Teich) 33.3 ml EF(Teich) 65.3 % EDV(cubed) 95.5 ml ESV(cubed) 25.4 ml EF(cubed) 73.4 % LV mass(C)d 196.9 grams LV mass(C)dI 96.6 grams/m\S\2 CO(Teich) 5.8 l/min CI(Teich) 2.8 l/min/m\S\2 SV(Teich) 62.6 ml SI(Teich) 30.7 ml/m\S\2 CO(cubed) 6.5 l/min CI(cubed) 3.2 l/min/m\S\2 SV(cubed) 70.1 ml SI(cubed) 34.4 ml/m\S\2 Ao root diam 4.0 cm Ao root area 12.6 cm\S\2 ACS 1.8 cm LA dimension 3.5 cm asc Aorta Diam 3.3 cm LA/Ao 0.86 LVAd ap4 28.0 cm\S\2 LVLd ap4 8.4 cm EDV(MOD-sp4) 78.8 ml LVAs ap4 12.9 cm\S\2 LVLs ap4 6.4 cm ESV(MOD-sp4) 23.1 ml EF(MOD-sp4) 70.7 % LVAd ap2 25.8 cm\S\2 LVLd ap2 8.4 cm EDV(MOD-sp2) 66.4 ml LVAs ap2 12.8 cm\S\2 LVLs ap2 6.5 cm ESV(MOD-sp2) 21.7 ml EF(MOD-sp2) 67.3 % CO(MOD-sp4) 5.1 l/min CI(MOD-sp4) 2.5 l/min/m\S\2 SV(MOD-sp4) 55.7 ml SI(MOD-sp4) 27.3 ml/m\S\2 CO(MOD-sp2) 4.1 l/min CI(MOD-sp2) 2.0 l/min/m\S\2 SV(MOD-sp2) 44.7 ml SI(MOD-sp2) 21.9 ml/m\S\2 Doppler Measurements and Calculations MV E max yadira 94.8 cm/sec MV A max yadira 100.8 cm/sec MV E/A 0.94 MV dec time 0.22 sec Ao V2 max 165.8 cm/sec Ao max PG 11.0 mmHg Ao max PG (full) 2.6 mmHg LV V1 max PG 8.3 mmHg LV V1 max 144.5 cm/sec MR max yadira 554.4 cm/sec MR max PG 122.9 mmHg MR mean yadira 377.3 cm/sec MR mean PG 74.0 mmHg MR VTI 116.9 cm PA V2 max 81.7 cm/sec PA max PG 2.7 mmHg PA acc slope 631.3 cm/sec\S\2 PA acc time 0.15 sec TR max yadira 146.0 cm/sec PA pr(Accel) 12.5 mmHg
--- NOTE | 2016-12-13 18:18 | Pharmacy Progress Note ---
Pharmacy Antibiotic Consult Date of Service: Dec 13, 2016. Pharmacy Dosing Scope Pharmacy is consulted to initiate vancomycin IV dosing therapy, order appropriate labs and adjust drug dose/frequency. Subjective The patient is a 76 year old male admitted on Dec 12, 2016 at 08:02 with possible sepsis, rt pleural effusion. Objective Height (Feet): 6 Height (Inches): 0.00 Weight (Kilograms): 81.900 Lab Results (24hrs): Laboratory Tests Test 12/13/16 05:11 BUN/Creatinine Ratio 19.8 Blood Urea Nitrogen 18 mg/dl Creatinine 0.89 mg/dl White Blood Count 11.02 K/uL Red Blood Count 4.03 M/uL Hemoglobin 9.9 g/dL Hematocrit 32.7 % Mean Corpuscular Volume 81.1 fL Mean Corpuscular Hemoglobin 24.6 pg Mean Corpuscular Hemoglobin Concent 30.3 g/dl Platelet Count 282 K/uL Mean Platelet Volume 9.5 fL Neutrophils (%) (Auto) 84.2 % Lymphocytes (%) (Auto) 9.2 % Monocytes (%) (Auto) 6.1 % Eosinophils (%) (Auto) 0.0 % Basophils (%) (Auto) 0.0 % Neutrophils # (Auto) 9.28 K/uL Lymphocytes # (Auto) 1.01 K/uL Monocytes # (Auto) 0.67 K/uL Eosinophils # (Auto) 0.00 K/uL Basophils # (Auto) 0.00 K/uL Micro Results: Gm pos cocci in one of 2 bc's, 2nd cx pending. Assessment & Plan Vancomycin: Loading dose: 2000 mg IV X 1 dose (~25mg/kg) then: 1200 mg IV every 12 hours. Goal peak level estimate: between 35 - 40 mcg/mL. Goal trough level estimate: between 15 - 20 mcg/mL. Trough level has been ordered for: 12/15 prior to 0600 dose. Pharmacy will continue to follow and will adjust dose/frequency as necessary. Thank you
--- NOTE | 2016-12-13 19:37 | PROGRESS NOTE ---
DATE: 12/13/2016 PROBLEM LIST: Includes: 1. COPD with exacerbation. 2. Small pleural effusion. 3. Dyspnea. SUBJECTIVE: The patient reports that his breathing still is pretty difficult. He states that he is having some increased cough and wheezing. States that his cough is more of a dry nonproductive cough. His voice is hoarse as well. He states that this all started prior to admission. He states that he is feeling a little bit better than he was when he first came into the hospital but he is still having some difficulty. He denies any painful respirations at this time. He denies any fever or chills, no night sweats. He denies any abdominal pain, no nausea or vomiting, no indigestion or heartburn. OBJECTIVE: GENERAL: The patient is a 76-year-old male lying in bed, very hoarse voice. Able to complete sentences without significant shortness of breath. Does not appear in any acute distress. He is alert and oriented x3. Mood is good. Affect is good. HEENT: Normocephalic, atraumatic. Pupils equal, round and reactive to light and accommodation. Extraocular movements are intact. [place] moist gingival and buccal mucosa. NECK: Supple. There is no mass. No adenopathy. No bruit. CHEST: The patient has expiratory wheeze bilaterally. He does have some coarse, almost rhonchorous breath sounds in the right lower lobe. CARDIOVASCULAR: Regular rate and rhythm. No murmurs, gallops or rubs. ABDOMEN: Soft, nontender. Bowel sounds are present. No guarding, rigidity or organomegaly. EXTREMITIES: No erythema or edema. NEUROLOGIC: Cranial nerves II-XII are intact. No focal deficit noted. LABORATORY DATA: Shows white count 11,000, H\T\H 9.9 and 32.7, platelet count 282,000. BUN 18, creatinine 0.89. HIV antigen negative. The patient does have a preliminary positive blood culture, 1 out of 2 showing gram-positive cocci. No sensitivities as of yet. CAT scan of his chest is showing improvement, although not complete resolution of right pleural effusion. Compared to CAT scan of 12/01/2015, it is showing some right lower lobe volume loss suggestive of atelectasis, small amount of mucus within the trachea. IMPRESSION: A 76-year-old male with severe chronic obstructive pulmonary disease which is chronic steroid dependent. At this time, he is having an exacerbation. At this point, awaiting on the blood culture results to come back before we change any antibiotic treatment. The patient currently is on vancomycin, and once cultures come back, we can refine treatment plan for him. Did discuss the case with Dr. 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 Dr. Mendez has contemplated doing thoracentesis to get a sample of the fluid to see if anything continues to grow out. At this point, he is to continue aggressive pulmonary toilet. He is to continue with steroid, continue vancomycin. We will continue to follow the patient through hospitalization. We will further discuss with Dr. Mendez regarding possible thoracentesis. I was able to perform bedside US of the thorax and saw no signs of pleural effusion. I suggest we perform out patient bronchoscopy with Tbbx. SELVIND
[2016-12-13] MEDS: VANCOMYCIN INJ 1,200 MG in SODIUM CHLORIDE 0.9% 250ML 250 ML IV SCH (19:45)
[2016-12-13] MEDS: SIMVASTATIN 80 MG TAB PO SCH (21:04)
[2016-12-13] MEDS ORDERED: BENZONATATE 100MG CAP PO ONE (22:26)
[2016-12-13] MEDS ORDERED: COUGH DROP (SUGAR FREE) LOZ 24 LOZ/1 BOX PO PRN (22:30)
[2016-12-13] MEDS ORDERED: NURSING VERBAL MED ORDER ONE (22:30)
[2016-12-14] VITALS (9 sets, daily range): BP systolic 120–154; BP diastolic 68–78; PULSE 68–80; TEMP 36.4–36.7; O2SAT 90–99; Ht 182.9 cm; Wt 81.8 kg
[2016-12-14] MEDS: ALBUT/IPRATROP 3MG/0.5MG NEB 3 ML VIAL INH SCH ×4 (04:04→19:13)
[2016-12-14] MEDS: VANCOMYCIN INJ 1,200 MG in SODIUM CHLORIDE 0.9% 250ML 250 ML IV SCH ×2 (05:29→17:26)
[2016-12-14] MEDS: METHYLPREDNISOLONE IV 40 MG in SYRINGE 0 ML IV SCH ×2 (05:32→17:26)
[2016-12-14] MEDS: LEVOTHYROXINE 75 MCG TAB PO SCH (05:32)
[2016-12-14 06:22] LABS: CALCIUM 8.9 mg/dl (8.5-10.1); CREATININE 0.78 mg/dl (0.60-1.40); POTASSIUM 4.2 mmol/L (3.5-5.1)
[2016-12-14 06:24] LABS: BASO % 0.1 %; BASO ABS # 0.01 K/uL (0-0.2); COMPLETE YES; HEMATOCRIT 29.7 % (42-52); IG% 0.3 %; LYMPH % 3.8 %; LYMPH ABS # 0.49 K/uL (1.2-3.4); MEAN CELL VOLUME 80.5 fL (80-100); MEAN CORPUSCULAR HEMOGLOBIN 25.2 pg (25-34); MEAN CORPUSCULAR HGB CONC 31.3 g/dl (32-36); MONO % 6.7 %; NEUT % 89.1 %; PLATELET COUNT 285 K/uL (130-400); RED BLOOD COUNT 3.69 M/uL (4.7-6.1); WHITE BLOOD COUNT 13.03 K/uL (4.8-10.8)
[2016-12-14] MEDS: ARFORMOTEROL TART 15MCG/2ML VIAL INH SCH ×2 (07:17→19:13)
--- NOTE | 2016-12-14 07:58 | Hospitalist Progress Note ---
Hospitalist Progress Note Date of Service Dec 14, 2016. Subjective Pt evaluation today including: conversation w/ patient Pain: None PO Intake: Good Voiding: no voiding problems The patient was seen and examined this morning. Pt reports doing well this morning. His is present at bedside. Breathing is same as yesterday, still has a cough which is nonproductive. He does not feel short of breath with exertion, and slept well overnight with 1.5 L O2 via NC. He denies any fevers, chills, sweats, chest tightness or chest pain. Plan for Dr. Mendez to see the patient today and discuss possible bronchoscopy/thoracentesis. All the and the patient's concerns and questions were answered. Additional Comments: 10 point review of systems reviewed and otherwise negative. Objective Vital Signs Date Time Temp Pulse Resp B/P Pulse Ox O2 Delivery O2 Flow Rate FiO2 12/14/16 07:17 36.4 70 18 129/78 93 Room Air 12/14/16 04:29 36.7 72 20 131/73 92 Room Air 12/14/16 04:04 74 16 90 Room Air 12/14/16 04:00 Room Air 12/14/16 00:00 Room Air 12/13/16 23:17 36.4 78 18 137/70 93 Room Air 12/13/16 20:05 78 16 94 Room Air 12/13/16 20:03 36.8 70 18 134/76 94 Room Air 12/13/16 20:00 Room Air 12/13/16 16:00 Room Air 12/13/16 15:48 75 91 12/13/16 15:41 78 16 94 Room Air 12/13/16 15:24 36.8 73 18 127/61 95 Room Air 12/13/16 12:00 Room Air 12/13/16 11:38 36.6 85 22 129/66 90 Room Air 12/13/16 10:45 74 16 93 Room Air 12/13/16 08:00 Room Air 95 Physical Exam General Appearance: WD/WN, no apparent distress, + pertinent finding Eyes: PERRL (abdominal), EOMI ENT: hearing grossly normal, pharynx normal Neck: supple, no JVD Respiratory/Chest: chest non-tender, + pertinent finding (on room air, expiratory wheezing throughout, prolonged expiratory phase. slightly diminished breath sounds at the right base. ) Cardiovascular: regular rate, rhythm, no murmur, + systolic murmur (+ thrill grade IV/V) Abdomen: normal bowel sounds, non tender, soft Extremities: non-tender, no pedal edema, no calf tenderness Neurologic/Psychiatric: alert, normal mood/affect, oriented x 3 Skin: normal color, warm/dry Laboratory Results Last 24 Hours Test 12/13/16 11:22 12/13/16 11:36 12/13/16 16:37 12/13/16 20:21 HIV (1&2) Ab and P24 Ag, 4th Gener NEG Bedside Glucose 306 mg/dl 301 mg/dl 267 mg/dl Test 12/14/16 05:28 12/14/16 07:37 White Blood Count 13.03 K/uL Red Blood Count 3.69 M/uL Hemoglobin 9.3 g/dL Hematocrit 29.7 % Mean Corpuscular Volume 80.5 fL Mean Corpuscular Hemoglobin 25.2 pg Mean Corpuscular Hemoglobin Concent 31.3 g/dl Platelet Count 285 K/uL Mean Platelet Volume 10.0 fL Neutrophils (%) (Auto) 89.1 % Lymphocytes (%) (Auto) 3.8 % Monocytes (%) (Auto) 6.7 % Eosinophils (%) (Auto) 0.0 % Basophils (%) (Auto) 0.1 % Neutrophils # (Auto) 11.62 K/uL Lymphocytes # (Auto) 0.49 K/uL Monocytes # (Auto) 0.87 K/uL Eosinophils # (Auto) 0.00 K/uL Basophils # (Auto) 0.01 K/uL RDW Standard Deviation 57.3 fL RDW Coefficient of Variation 19.3 % Immature Granulocyte % (Auto) 0.3 % Immature Granulocyte # (Auto) 0.04 K/uL Sodium Level 139 mmol/L Potassium Level 4.2 mmol/L Chloride Level 107 mmol/L Carbon Dioxide Level 27 mmol/L Anion Gap 5.0 mmol/L Blood Urea Nitrogen 21 mg/dl Creatinine 0.78 mg/dl Est Creatinine Clear Calc Drug Dose 85.7 ml/min Estimated GFR () 100.2 Estimated GFR (Non- 86.5 BUN/Creatinine Ratio 27.0 Random Glucose 271 mg/dl Calcium Level 8.9 mg/dl Bedside Glucose 276 mg/dl Assessment and Plan This is a 76 yo M with PMHx of COPD, environmental allergies, heart disease with HTN, hyperlipidemia, chronic diastolic CHF with EF >70% in 2014, aortic stenosis, hypothyroidism, depression who presents to the ED this morning with increased shortness of breath. COPD exacerbation - Pulm on board- appreciate recs; hx of right sided thoracentesis performed 07/2016 which grew out Cryptococcus Neoformans. 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 - Cryptococcocus is negative 12/14 - Will switch to oral prednisone 40 mg, titrate down by 5 mg every 3 days until down to chronic prednisone 10 mg. Plan was discussed with the DK Murphy. Plan to have Dr. Mendez the see the patient and discuss a thoracentesis and bronchoscopy. - Duonebs QID and Q2H prn shortness of breath - Continue on home inhalers Tudorza and Brovana - Pt supposed to wear 1.5 L O2 via NC QHS - a script is on the chart for discharge. - Continue Vanc for now, first set of blood culture is negative, second set drawn today. Will d/c vanc once second set neg. Elevated Troponin - Trop increased from 0.046 --> 0.087 on the third set- cardiology did not feel this was an acute ischemic event despite history of CHF, likely secondary to hypoxia - 2D echo Normal biventricular systolic function. * Mild concentric left ventricular hypertrophy. * Left ventricular diastolic dysfunction. * Normal chamber dimensions. * Trace mitral,tricuspid, and aortic regurgitation. * Borderline aortic root dilatation. * Compared to an echo of 11/16/2014 there has been no significant interval change. * -- Conclusions -- * Aortic valve sclerosis moderate, without significant aortic valvular stenosis Chronic diastolic CHF - Last Echo obtained in 2014 showing left ventricular hypertrophy and EF >70%. - will order repeat - Continue on daily Lasix 20 mg for now. No pedal edema, but has mild JVD. Hypothyroidism - Cont levothyroxine 75 mcg daily Depression - Cont lexapro 10 mg daily Hyperlipidemia - Cont simvastatin 80 mg QHS DM - Hold glimepiride for now - ISS with accuchecks achs - Check HA1C DVT ppx: Teds, SCDs, lovenox 40 mg subq CODE STATUS: FULL CODE Disposition: From home, lives with , discharge when medically stable
[2016-12-14] MEDS: ESCITALOPRAM OXALATE 10 MG TAB PO SCH (08:17)
[2016-12-14] MEDS: ENOXAPARIN 40 MG/0.4 ML SYR SQ SCH (08:17)
[2016-12-14] MEDS: PANTOprazole SOD 40 MG TAB PO SCH (08:17)
[2016-12-14] MEDS: CHOLECALCIFEROL 1000 INTER.UNIT TAB PO SCH (08:17)
[2016-12-14] MEDS: ASPIRIN 81 MG ECTAB PO SCH (08:18)
[2016-12-14] MEDS: BENZONATATE 100MG CAP PO SCH ×3 (08:18→21:03)
[2016-12-14] MEDS: FUROSEMIDE 20 MG TAB PO SCH (08:18)
[2016-12-14] MEDS: INSULIN ASPART 100 UNITS/ML 3 ML PEN SC SCH ×4 (08:23→21:08)
--- NOTE | 2016-12-14 10:32 | Infectious Disease Progress Nt ---
Progress Note Date of Service Dec 14, 2016. Subjective Pt evaluation today including: conversation w/ patient, physical exam, chart review, lab review, review of studies, conversation w/ home planning consultant salesperson (Dr. Mendez), review of inpatient medication list Patient continues to feel SOB this monring and is experiencing cough on and off. He denies N/V/D, fever, sweats or chills over night. Cryptococcal antigen was negative. Fungal smear is pending. Blood cultures growing GPC in 1/2 cultures pending identification. WBC count this morning was 13.03. I discussed patient with Dr. Mendez- he feels that he may try to aspirate patient's pleural effusion. All Other Systems: Reviewed and Negative Medications Current Inpatient Medications Medications (Trade) Dose Ordered Sig/[place] Route Start Time Stop Time Status Last Admin Dose Admin Enoxaparin Sodium (Lovenox Inj) 40 mg QAM SQ 12/12/16 09:00 01/11/17 08:59 12/14/16 08:17 40 MG Acetaminophen (Tylenol Tab) 650 mg Q4H PRN PO 12/12/16 08:00 01/11/17 07:59 Polyethylene (Miralax Powder Packet) 17 gm DAILY PRN PO 12/12/16 09:30 01/11/17 09:29 Ondansetron HCl (Zofran Inj) 4 mg Q6H PRN IV 12/12/16 08:00 01/11/17 07:59 Insulin Aspart (novoLOG ASPART) SLIDING SCALE G... ACHS SC 12/12/16 11:00 01/11/17 10:59 Future hold 12/14/16 08:23 8 UNITS Glucose (Glucose Chew Tab) 4-8 Tablets 4 Tabl... UD PRN PO 12/12/16 08:00 01/11/17 07:59 Glucagon (Glucagon Inj) 1 mg UD PRN SQ 12/12/16 08:00 01/11/17 07:59 Albuterol Sulfate (Ventolin 0.083% 2.5MG/3ML Neb) 2.5 mg Q4H PRN INH 12/12/16 08:00 01/11/17 07:59 Arformoterol Tartrate (Brovana 15MCG/ 2ML Neb Soln) 15 mcg BIDR INH 12/12/16 09:00 01/11/17 08:59 12/14/16 07:17 15 MCG Escitalopram Oxalate (Lexapro Tab) 10 mg DAILY PO 12/12/16 09:00 01/11/17 08:59 12/14/16 08:17 10 MG Furosemide (Lasix Tab) 20 mg DAILY PO 12/12/16 09:00 01/11/17 08:59 12/14/16 08:18 20 MG Levothyroxine Sodium (Synthroid Tab) 75 mcg DAILYBB PO 12/13/16 06:30 01/12/17 06:59 12/14/16 05:32 75 MCG Oxymetazoline HCl (Afrin 0.05% Nasal [place]) 1 sprays BID PRN NA 12/12/16 08:00 01/11/17 07:59 Simvastatin (Zocor Tab) 80 mg HS PO 12/12/16 21:00 01/11/17 20:59 12/13/16 21:04 80 MG Pantoprazole Sodium (Protonix Tab) 40 mg QAM PO 12/12/16 09:00 01/11/17 08:59 12/14/16 08:17 40 MG Cholecalciferol (Vitamin D Tab) 5,000 inter.unit QAM PO 12/12/16 09:00 01/11/17 08:59 12/14/16 08:17 5,000 INTER.UNIT Albuterol/ Ipratropium (Duoneb) 3 ml QIDR INH 12/12/16 12:00 01/11/17 11:59 12/14/16 04:04 3 ML Glucose (Glucose 40% Gel) 15-30 GRAMS 15 GRAMS... UD PRN PO 12/12/16 09:30 01/11/17 09:29 Dextrose (Dextrose 50% 50ML Syringe) 25-50ML OF 50% DW IV FOR... UD PRN IV 12/12/16 09:30 01/11/17 09:29 Vancomycin HCl 1 ea 1 ea UD PRN N/A 12/13/16 06:00 01/12/17 05:59 Methylprednisolone Sodium Succinate/ Syringe (Solu-Medrol IV/ Syringe) 0.64 ml @ 1.5 mls/min Q12H IV 12/13/16 18:00 01/12/17 17:59 12/14/16 05:32 1.5 MLS/MIN Aspirin 81 mg 81 mg QAM PO 12/14/16 09:00 01/13/17 08:59 12/14/16 08:18 81 MG Vancomycin HCl/ Sodium Chloride (Vancomycin Inj/ Nss 250ml) 274 ml @ 125 mls/hr Q12H IV 12/13/16 18:00 12/27/16 17:59 12/14/16 05:29 125 MLS/HR Menthol (Nice Margaret) 1 margaret PRN PRN PO 12/13/16 22:30 01/12/17 22:29 Benzonatate (Tessalon Perles Cap) 100 mg TID PO 12/14/16 09:00 01/13/17 08:59 12/14/16 08:18 100 MG Objective Vital Signs Date Time Temp Pulse Resp B/P Pulse Ox O2 Delivery O2 Flow Rate FiO2 12/14/16 08:00 Room Air 12/14/16 07:19 80 16 94 Room Air 12/14/16 07:17 36.4 70 18 129/78 93 Room Air 12/14/16 04:29 36.7 72 20 131/73 92 Room Air 12/14/16 04:04 74 16 90 Room Air 12/14/16 04:00 Room Air 12/14/16 00:00 Room Air 12/13/16 23:17 36.4 78 18 137/70 93 Room Air 12/13/16 20:05 78 16 94 Room Air 12/13/16 20:03 36.8 70 18 134/76 94 Room Air 12/13/16 20:00 Room Air 12/13/16 16:00 Room Air 12/13/16 15:48 75 91 12/13/16 15:41 78 16 94 Room Air 12/13/16 15:24 36.8 73 18 127/61 95 Room Air 12/13/16 12:00 Room Air 12/13/16 11:38 36.6 85 22 129/66 90 Room Air 12/13/16 10:45 74 16 93 Room Air Physical Exam General Appearance: WD/WN, no apparent distress Eyes: normal inspection, sclerae normal ENT: hearing grossly normal Neck: supple, trachea midline Respiratory/Chest: chest non-tender, + rhonchi (right lower lobe), + wheezing ( mild throughout lungs- slightly improved) Cardiovascular: regular rate, rhythm, no murmur Abdomen: normal bowel sounds, non tender, soft Neurologic/Psychiatric: alert, normal mood/affect Skin: normal color, warm/dry, no rash Laboratory Results Item Value Date Time Fungal Smear Received 12/13/16 1122 Blood Pending Cryptococcal Antigen - Final Complete 12/13/16 1122 Blood NO CRYPTOCOCCAL ANTIGEN DETECTED Blood Culture - Preliminary Resulted 12/12/16 0544 Blood Gram Positive Cocci Blood Culture Received 12/12/16 0542 Blood Pending Fungal Smear - Final Resulted 12/13/16 1122 Blood Blood Culture - Preliminary Resulted 12/12/16 0542 Blood NO GROWTH TO DATE. Blood Culture - Preliminary Resulted 12/12/16 0544 Blood Gram Positive Cocci Last 24 Hours Test 12/13/16 11:22 12/13/16 11:36 12/13/16 16:37 12/13/16 20:21 HIV (1&2) Ab and P24 Ag, 4th Gener NEG Bedside Glucose 306 mg/dl 301 mg/dl 267 mg/dl Test 12/14/16 05:28 12/14/16 07:37 12/14/16 09:49 White Blood Count 13.03 K/uL Red Blood Count 3.69 M/uL Hemoglobin 9.3 g/dL Hematocrit 29.7 % Mean Corpuscular Volume 80.5 fL Mean Corpuscular Hemoglobin 25.2 pg Mean Corpuscular Hemoglobin Concent 31.3 g/dl Platelet Count 285 K/uL Mean Platelet Volume 10.0 fL Neutrophils (%) (Auto) 89.1 % Lymphocytes (%) (Auto) 3.8 % Monocytes (%) (Auto) 6.7 % Eosinophils (%) (Auto) 0.0 % Basophils (%) (Auto) 0.1 % Neutrophils # (Auto) 11.62 K/uL Lymphocytes # (Auto) 0.49 K/uL Monocytes # (Auto) 0.87 K/uL Eosinophils # (Auto) 0.00 K/uL Basophils # (Auto) 0.01 K/uL RDW Standard Deviation 57.3 fL RDW Coefficient of Variation 19.3 % Immature Granulocyte % (Auto) 0.3 % Immature Granulocyte # (Auto) 0.04 K/uL Sodium Level 139 mmol/L Potassium Level 4.2 mmol/L Chloride Level 107 mmol/L Carbon Dioxide Level 27 mmol/L Anion Gap 5.0 mmol/L Blood Urea Nitrogen 21 mg/dl Creatinine 0.78 mg/dl Est Creatinine Clear Calc Drug Dose 85.7 ml/min Estimated GFR () 100.2 Estimated GFR (Non- 86.5 BUN/Creatinine Ratio 27.0 Random Glucose 271 mg/dl Calcium Level 8.9 mg/dl Bedside Glucose 276 mg/dl Assessment and Plan Patient with 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 He did previously have Cryptococcus (11/2015) and Priscila Glabrata grow from thoracentesis/BAL. Cryptococcal Ag was negative, therefore do not feel that this patient needs treatment currently for Cryptococcus from last year. HIV screen was negative. Continue supportive care for COPD exacerbation. Will also continue Vancomycin pending blood cultures. Likely GPC in 1/2 bottles in contaminant, but will repeat blood cultures as well. We will follow. PROVIDER ADDENDUM: Pt. reviewed with Ms. Lopez. Agree with above assessment.
--- NOTE | 2016-12-14 12:51 | PROGRESS NOTE ---
DATE: 12/14/2016 PROBLEM LIST: Includes: 1. COPD exacerbation. 2. Small pleural effusion. 3. Dyspnea. SUBJECTIVE: The patient reports that he is about the same or slightly better. He states that he is still coughing quite a bit. He still does have some wheezing. He does not feel as short of breath as he was previously. He and his state that he was out walking on the floor without difficulty. He has no chest discomfort at this time. No chest heaviness or tightness. He has no chest pain or painful respiration. No GI symptoms. No nausea or vomiting, no indigestion or heartburn. He is not having any difficulty with his bowels. No difficulty with voiding. No swelling in his extremities. OBJECTIVE: GENERAL: The patient is a 76-year-old male sitting at bedside, eating lunch when I evaluated him. He is alert and oriented x3. Mood is good. Affect is good. VITAL SIGNS: Temp is 36.7, pulse 68, respiration 18, blood pressure is 124/70, pulse ox 93% on room air. HEENT: Normocephalic, atraumatic. Pupils equal, round, react to light and accommodation. Extraocular movements are intact. [place] moist gingival and buccal mucosa. NECK: Supple. No mass. No adenopathy. No bruit. CHEST: Diminished. He does have expiratory wheeze. No rale or rhonchi noted. CARDIOVASCULAR: Regular rate and rhythm. No murmurs, gallops or rubs. ABDOMEN: Soft, nontender. No guarding, rigidity or organomegaly. EXTREMITIES: No erythema or edema. NEUROLOGIC: Cranial nerves II-XII intact. No focal deficit noted. LABORATORY DATA: Shows white count 13,000, H\T\H 9.3 and 29.7, platelet count 285,000. BUN 21, creatinine 0.78. Blood cultures, 1 of 2 positive. Cryptococcal antigen is negative. Fungal smear is negative to this point. No new imaging data. IMPRESSION: This is a 76-year-old male with chronic obstructive pulmonary disease, who presented with exacerbation. There was some question of possible cryptococcal infection from thoracentesis done in 2016. To this point, cryptococcal antigen has been negative. He did have 1 of 2 positive blood cultures. Infectious disease is following this and re-ordered repeat blood cultures to be done. At this point, the patient is stable, just slightly improving. He is on appropriate steroid and antibiotic at this time. Actually, depending on what the repeat blood cultures show, may need to or be able to consider discontinuing antibiotic. He is on aggressive pulmonary toilet. The patient may benefit from bronchoscopic evaluation with bronchoalveolar lavage. We will discuss this with Dr. Mendez in regard to repeating thoracentesis, I will leave that decision up to Dr. Mendez, and we will discuss with him. Otherwise, we will continue to follow through hospitalization. Patient reviewed and plan agreed with. MARIA DOLORES
[2016-12-14] MEDS: SIMVASTATIN 80 MG TAB PO SCH (21:03)
[2016-12-15] VITALS (11 sets, daily range): BP systolic 117–156; BP diastolic 68–103; PULSE 57–74; TEMP 36.6–37; O2SAT 91–100
[2016-12-15] MEDS: METHYLPREDNISOLONE IV 40 MG in SYRINGE 0 ML IV SCH ×2 (05:27→17:43)
[2016-12-15] MEDS: VANCOMYCIN INJ 1,200 MG in SODIUM CHLORIDE 0.9% 250ML 250 ML IV SCH ×2 (05:28→15:48)
[2016-12-15] MEDS: LEVOTHYROXINE 75 MCG TAB PO SCH (05:28)
[2016-12-15 05:30] LABS: BASO % 0.1 %; BASO ABS # 0.01 K/uL (0-0.2); COMPLETE YES; HEMATOCRIT 30.7 % (42-52); IG% 0.5 %; LYMPH % 5.7 %; LYMPH ABS # 0.74 K/uL (1.2-3.4); MEAN CORPUSCULAR HEMOGLOBIN 25.3 pg (25-34); MEAN CORPUSCULAR HGB CONC 31.3 g/dl (32-36); MEAN PLATELET VOLUME 9.5 fL (7.4-10.4); MONO % 7.8 %; NEUT % 85.9 %; PLATELET COUNT 280 K/uL (130-400); RED BLOOD COUNT 3.79 M/uL (4.7-6.1); WHITE BLOOD COUNT 13.03 K/uL (4.8-10.8)
[2016-12-15] MEDS ORDERED: VANCOMYCIN TROUGH SCH (05:30)
[2016-12-15 05:59] LABS: CREATININE 0.99 mg/dl (0.60-1.40)
[2016-12-15] MEDS: ALBUT/IPRATROP 3MG/0.5MG NEB 3 ML VIAL INH SCH ×4 (07:33→19:18)
[2016-12-15] MEDS: ARFORMOTEROL TART 15MCG/2ML VIAL INH SCH ×2 (07:33→19:17)
--- NOTE | 2016-12-15 07:52 | Hospitalist Progress Note ---
Hospitalist Progress Note Date of Service Dec 15, 2016. Subjective Pt evaluation today including: conversation w/ patient, conversation w/ family , physical exam, chart review, lab review, review of studies, conversation w/ technical marketing consultant Pain: none PO Intake: Good Voiding: no voiding problems The patient was seen and examined this morning. is present at bedside. Pt reports he "had a rough night last night", states had some similar chest heaviness. He was not wearing oxygen overnight last night. Pt reports he still has a dry cough, and that with exertion he still feels short of breath. The patient does report improvement in his breathing status. Constitutional: No chills, No fatigue, No fever, No sweats Eyes: No diplopia, No redness ENT: No dental problems, No sore throat, No trouble swallowing Respiratory: + cough, + dyspnea on exertion, No dyspnea at rest, No hemoptysis, No sputum Cardiovascular: No chest pain, No palpitations Abdomen: No constipation, No diarrhea, No nausea, No pain, No vomiting Musculoskeletal: No joint pain, No swelling Male : No dysuria Neurologic: No balance problems, No numbness/tingling, No weakness Psychiatric: No anxiety, No insomnia Endo: No fatigue Skin: No itch, No rash Objective Vital Signs Date Time Temp Pulse Resp B/P Pulse Ox O2 Delivery O2 Flow Rate FiO2 12/15/16 07:33 70 16 95 Room Air 12/15/16 07:10 36.7 65 20 135/82 91 12/15/16 04:00 Room Air 12/15/16 04:00 36.6 57 18 117/68 91 Room Air 12/15/16 00:10 36.7 59 18 131/78 94 Room Air 12/15/16 00:00 Room Air 12/14/16 20:10 Room Air 12/14/16 19:58 36.7 69 18 154/77 99 Room Air 12/14/16 19:14 70 16 95 Room Air 12/14/16 16:20 Room Air 12/14/16 15:12 36.6 76 18 120/68 94 Room Air 12/14/16 12:28 68 16 93 Room Air 12/14/16 12:00 Room Air 12/14/16 11:30 36.7 68 18 124/70 93 12/14/16 08:00 Room Air Physical Exam Notes: General Appearance: WD/WN, no apparent distress Eyes: PERRL, EOMI ENT: hearing grossly normal, pharynx normal Neck: supple, no JVD Respiratory/Chest: chest non-tender, + pertinent finding (on room air, expiratory wheezing at the end of breath sound, improved from yesterday, prolonged expiratory phase. slightly diminished breath sounds at the right base. ) Cardiovascular: regular rate, rhythm, no murmur, + systolic murmur (+ thrill grade IV/V) Abdomen: normal bowel sounds, non tender, soft Extremities: non-tender, no pedal edema, no calf tenderness Neurologic/Psychiatric: alert, normal mood/affect, oriented x 3 Skin: normal color, warm/dry Laboratory Results Last 24 Hours Test 12/14/16 11:23 12/14/16 11:41 12/14/16 16:19 12/14/16 20:13 Procalcitonin < 0.05 ng/ml Bedside Glucose 337 mg/dl 285 mg/dl 230 mg/dl Test 12/15/16 05:15 12/15/16 07:36 White Blood Count 13.03 K/uL Red Blood Count 3.79 M/uL Hemoglobin 9.6 g/dL Hematocrit 30.7 % Mean Corpuscular Volume 81.0 fL Mean Corpuscular Hemoglobin 25.3 pg Mean Corpuscular Hemoglobin Concent 31.3 g/dl Platelet Count 280 K/uL Mean Platelet Volume 9.5 fL Neutrophils (%) (Auto) 85.9 % Lymphocytes (%) (Auto) 5.7 % Monocytes (%) (Auto) 7.8 % Eosinophils (%) (Auto) 0.0 % Basophils (%) (Auto) 0.1 % Neutrophils # (Auto) 11.21 K/uL Lymphocytes # (Auto) 0.74 K/uL Monocytes # (Auto) 1.01 K/uL Eosinophils # (Auto) 0.00 K/uL Basophils # (Auto) 0.01 K/uL RDW Standard Deviation 57.7 fL RDW Coefficient of Variation 19.2 % Immature Granulocyte % (Auto) 0.5 % Immature Granulocyte # (Auto) 0.06 K/uL Creatinine 0.99 mg/dl Est Creatinine Clear Calc Drug Dose 67.5 ml/min Estimated GFR () 84.2 Estimated GFR (Non- 72.6 Vancomycin Level Trough 11.4 mcg/ml Bedside Glucose 253 mg/dl Assessment and Plan This is a 76 yo M with PMHx of COPD, environmental allergies, heart disease with HTN, hyperlipidemia, chronic diastolic CHF with EF >70% in 2014, aortic stenosis, hypothyroidism, depression who presents to the ED this morning with increased shortness of breath. COPD exacerbation - Pulm on board- appreciate recs; hx of right sided thoracentesis performed 07/2016 which grew out Cryptococcus Neoformans. 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 - Cryptococcocus is negative 12/14 - Give one last day of IV solumedrol tonight. Will switch to oral prednisone 40 mg tomorrow morning- titrate down by 5 mg every 3 days until down to chronic prednisone 10 mg. Plan was discussed with the Constantine Noriega PA-C. No plans for thoracentesis here. Dr. Mendez may consider outpatient bronch, but not needed inpatient. - Duonebs QID and Q2H prn shortness of breath - Continue on home inhalers Tudorza and Brovana - Pt supposed to wear 1.5 L O2 via NC QHS - a script is on the chart for discharge. - Continue Vanc for now, first set of blood culture is negative, second set drawn12/14 - await results. - Will d/c vanc once second set neg. Elevated Troponin - Trop increased from 0.046 --> 0.087 on the third set- cardiology did not feel this was an acute ischemic event despite history of CHF, likely secondary to hypoxia - 2D echo Normal biventricular systolic function. * Mild concentric left ventricular hypertrophy. * Left ventricular diastolic dysfunction. * Normal chamber dimensions. * Trace mitral,tricuspid, and aortic regurgitation. * Borderline aortic root dilatation. * Compared to an echo of 11/16/2014 there has been no significant interval change. * -- Conclusions -- * Aortic valve sclerosis moderate, without significant aortic valvular stenosis Chronic diastolic CHF - Last Echo obtained in 2014 showing left ventricular hypertrophy and EF >70%. - repeat as above - Continue on daily Lasix 20 mg for now. No pedal edema, but has mild JVD. Hypothyroidism - Cont levothyroxine 75 mcg daily Depression - Cont lexapro 10 mg daily Hyperlipidemia - Cont simvastatin 80 mg QHS DM - Hold glimepiride for now - ISS with accuchecks achs - Check HA1C DVT ppx: Teds, SCDs, lovenox 40 mg subq CODE STATUS: FULL CODE Disposition: From home, lives with , Move off tele today, likely discharge tomorrow after BCx results back
[2016-12-15] MEDS: INSULIN ASPART 100 UNITS/ML 3 ML PEN SC SCH ×4 (08:25→21:00)
[2016-12-15] MEDS: ESCITALOPRAM OXALATE 10 MG TAB PO SCH (08:26)
[2016-12-15] MEDS: CHOLECALCIFEROL 1000 INTER.UNIT TAB PO SCH (08:26)
[2016-12-15] MEDS: ASPIRIN 81 MG ECTAB PO SCH (08:26)
[2016-12-15] MEDS: PANTOprazole SOD 40 MG TAB PO SCH (08:27)
[2016-12-15] MEDS: FUROSEMIDE 20 MG TAB PO SCH (08:27)
[2016-12-15] MEDS: BENZONATATE 100MG CAP PO SCH ×3 (08:27→20:56)
[2016-12-15] MEDS: ENOXAPARIN 40 MG/0.4 ML SYR SQ SCH (08:27)
[2016-12-15] MEDS ORDERED: PHARMACY GLYCEMIC MGMT CONSULT PRN (12:00)
[2016-12-15] MEDS ORDERED: INSULIN GLARGINE SOLOSTAR 100 UNITS/ML 3 ML PEN SC ONE (12:30)
--- NOTE | 2016-12-15 12:30 | Pharmacy Progress Note ---
Pharmacy Antibiotic Prog Note Date of Service Dec 15, 2016. Subjective The patient is currently receiving Vancomycin 1,200mg (~15mg/kg) IV every 12 hours. The patient is currently on day # 3 of Vancomycin IV therapy. Objective Height (Feet): 6 Height (Inches): 0.00 Weight (Kilograms): 81.800 Levels: Item Value Date Time Vancomycin Level Trough 11.4 mcg/ml 12/15/16 0515 Micro Results: Item Value Date Time Blood Culture - Preliminary Resulted 12/12/16 0542 Blood NO GROWTH TO DATE. Blood Culture - Preliminary Resulted 12/12/16 0544 Blood Coag Neg Staph Not Lugd[place]ensis Cryptococcal Antigen - Final Complete 12/13/16 1122 Blood NO CRYPTOCOCCAL ANTIGEN DETECTED Fungal Smear - Final Resulted 12/13/16 1122 Blood Blood Culture Received 12/14/16 1020 Blood Pending Blood Culture Received 12/14/16 1033 Blood Pending Assessment & Plan 76yo male receiving IV Vancomycin for possible sepsis. Coag negative staph positive culture in 1 or 2 initial blood cultures. Likely contaminant per ID. Repeat blood cultures pending. May consider d/c vancomycin if repeat blood cultures negative. PLAN: May consider d/c vancomycin if repeat blood cultures negative. Until then , * Vancomycin trough level sub-therapeutic today at 11.4mcg/dl. Goal trough level is 15-20mcg/dl for bacteremia. * Based on calculated PK current dosing is adequate but likely we have not reached steady state with vancomycin. * Will continue current dosing but move up next dose to maintain therapeutic levels. * Continue Vancomycin 1,200mg IV Q12hrs but start next dose 10hrs after last dose and then continue Q12hrs dosing * Repeat/re-check vancomycin trough level 12/17/16 @ 0400 (prior to 4th dose of new dosing schedule) Pharmacy will continue to follow and will adjust dose/frequency as necessary. Thank you
--- NOTE | 2016-12-15 14:06 | Infectious Disease Progress Nt ---
Progress Note Date of Service Dec 15, 2016. Subjective Pt evaluation today including: conversation w/ patient, conversation w/ family (), physical exam, chart review, lab review, review of studies, review of inpatient medication list Patient's white blood cell count this morning was 13.03. His creatinine was stable at 0.99. Initial blood cultures are growing coag-negative staph in 1/2 bottles. Fungal cultures pending. Repeat blood cultures are also pending. Patient continues on IV vancomycin and is tolerating this well. He continues to have shortness of breath, dry cough, and wheezing. He has not had repeat chest x-ray. His is with him today. All Other Systems: Reviewed and Negative Medications Current Inpatient Medications Medications (Trade) Dose Ordered Sig/Clair Route Start Time Stop Time Status Last Admin Dose Admin Enoxaparin Sodium (Lovenox Inj) 40 mg QAM SQ 12/12/16 09:00 01/11/17 08:59 12/15/16 08:27 40 MG Acetaminophen (Tylenol Tab) 650 mg Q4H PRN PO 12/12/16 08:00 01/11/17 07:59 Polyethylene (Miralax Powder Packet) 17 gm DAILY PRN PO 12/12/16 09:30 01/11/17 09:29 Ondansetron HCl (Zofran Inj) 4 mg Q6H PRN IV 12/12/16 08:00 01/11/17 07:59 Insulin Aspart (novoLOG ASPART) SLIDING SCALE G... ACHS SC 12/12/16 11:00 01/11/17 10:59 Future hold 12/15/16 12:47 16 UNITS Glucose (Glucose Chew Tab) 4-8 Tablets 4 Tabl... UD PRN PO 12/12/16 08:00 01/11/17 07:59 Glucagon (Glucagon Inj) 1 mg UD PRN SQ 12/12/16 08:00 01/11/17 07:59 Albuterol Sulfate (Ventolin 0.083% 2.5MG/3ML Neb) 2.5 mg Q4H PRN INH 12/12/16 08:00 01/11/17 07:59 Arformoterol Tartrate (Brovana 15MCG/ 2ML Neb Soln) 15 mcg BIDR INH 4/25/17 09:00 01/11/17 08:59 12/15/16 07:33 15 MCG Escitalopram Oxalate (Lexapro Tab) 10 mg DAILY PO 12/12/16 09:00 01/11/17 08:59 12/15/16 08:26 10 MG Furosemide (Lasix Tab) 20 mg DAILY PO 12/12/16 09:00 01/11/17 08:59 12/15/16 08:27 20 MG Levothyroxine Sodium (Synthroid Tab) 75 mcg DAILYBB PO 12/13/16 06:30 01/12/17 06:59 12/15/16 05:28 75 MCG Oxymetazoline HCl (Afrin 0.05% Nasal [place]) 1 sprays BID PRN NA 12/12/16 08:00 01/11/17 07:59 Simvastatin (Zocor Tab) 80 mg HS PO 12/12/16 21:00 01/11/17 20:59 12/14/16 21:03 80 MG Pantoprazole Sodium (Protonix Tab) 40 mg QAM PO 12/12/16 09:00 01/11/17 08:59 12/15/16 08:27 40 MG Cholecalciferol (Vitamin D Tab) 5,000 inter.unit QAM PO 12/12/16 09:00 01/11/17 08:59 12/15/16 08:26 5,000 INTER.UNIT Albuterol/ Ipratropium (Duoneb) 3 ml QIDR INH 12/12/16 12:00 01/11/17 11:59 12/15/16 11:18 3 ML Glucose (Glucose 40% Gel) 15-30 GRAMS 15 GRAMS... UD PRN PO 12/12/16 09:30 01/11/17 09:29 Dextrose (Dextrose 50% 50ML Syringe) 25-50ML OF 50% DW IV FOR... UD PRN IV 12/12/16 09:30 01/11/17 09:29 Vancomycin HCl 1 ea 1 ea UD PRN N/A 12/13/16 06:00 01/12/17 05:59 Methylprednisolone Sodium Succinate/ Syringe (Solu-Medrol IV/ Syringe) 0.64 ml @ 1.5 mls/min Q12H IV 12/13/16 18:00 12/15/16 22:00 12/15/16 05:27 1.5 MLS/MIN Aspirin (Ecotrin Tab) 81 mg QAM PO 12/14/16 09:00 01/13/17 08:59 12/15/16 08:26 81 MG Menthol (Nice Margaret) 1 margaret PRN PRN PO 12/13/16 22:30 01/12/17 22:29 Benzonatate (Tessalon Perles Cap) 100 mg TID PO 12/14/16 09:00 01/13/17 08:59 12/15/16 13:16 100 MG Prednisone (PredniSONE TAB) 40 mg DAILY PO 12/16/16 09:00 01/15/17 08:59 Miscellaneous Information 1 ea 1 ea UD PRN N/A 12/15/16 12:00 01/14/17 11:59 Vancomycin HCl/ Sodium Chloride (Vancomycin Inj/ Nss 250ml) 274 ml @ 125 mls/hr Q12H IV 12/15/16 16:00 12/26/16 15:59 Insulin Aspart (novoLOG ASPART) SLIDING SCALE G... TODAY@0200 MN 12/16/16 02:00 12/16/16 02:01 Objective Vital Signs Date Time Temp Pulse Resp B/P Pulse Ox O2 Delivery O2 Flow Rate FiO2 12/15/16 11:34 37.0 74 16 127/72 100 12/15/16 11:18 70 16 95 Room Air 12/15/16 08:00 Room Air 12/15/16 07:33 70 16 95 Room Air 12/15/16 07:10 36.7 65 20 135/82 91 12/15/16 04:00 Room Air 12/15/16 04:00 36.6 57 18 117/68 91 Room Air 12/15/16 00:10 36.7 59 18 131/78 94 Room Air 12/15/16 00:00 Room Air 12/14/16 20:10 Room Air 12/14/16 19:58 36.7 69 18 154/77 99 Room Air 12/14/16 19:14 70 16 95 Room Air 12/14/16 16:20 Room Air 12/14/16 15:12 36.6 76 18 120/68 94 Room Air Physical Exam General Appearance: WD/WN, no apparent distress Eyes: normal inspection, sclerae normal ENT: hearing grossly normal Neck: supple, trachea midline Respiratory/Chest: no respiratory distress, no accessory muscle use, + wheezing (throughout bilateral lungs, worse on right especially right lower) Cardiovascular: regular rate, rhythm Abdomen: normal bowel sounds, non tender, soft Extremities: normal range of motion Neurologic/Psychiatric: alert, normal mood/affect Skin: normal color, warm/dry, no rash Laboratory Results RUN DATE: 12/14/16 [facility] LAB PAGE 1 RUN TIME: 1114 Specimen Inquiry PATIENT: ALAYNA LATHAM LOC: [facility] # : [id number] AGE/SX: 76/M ROOM: [facility] REG : 12/12/[address]: David Villatoro MD, PhD : 1940 BED: 1 DIS : STATUS: ADM IN TLOC: SPEC #: [id number] TOBIAS: 12/12/1644 STATUS: RES REQ #: [id number] RECD: 12/12/1659 [facility] DR: Heidi East D.O. SOURCE: BLOOD ENTR: 12/12/16-[address] [facility] [address]: Artis Gunderson M.D. [facility] [place]: ORDERED: BLOOD CULTURE Procedure Result Verified Site BLD CULT Preliminary 12/14/16-4972 Organism 1 COAG NEG STAPH NOT LUGDUNENSIS SENS NO SENSITIVITY TO FOLLOW One set of two positive. Isolation does not necessarily mean infection. No susceptibility tests performed. Contact microbiology laboratory [phone]) if further studies are indicated. Phoned Positive Blood Culture Gram Stain Report to FELIX CHAND on 12/13/16 At 0534 By [facility]. [facility] Item Value Date Time Blood Culture Received 12/14/16 1033 Blood Pending Blood Culture Received 12/14/16 1020 Blood Pending Fungal Smear - Final Resulted 12/13/16 1122 Blood Cryptococcal Antigen - Final Complete 12/13/16 1122 Blood NO CRYPTOCOCCAL ANTIGEN DETECTED Blood Culture - Preliminary Resulted 12/12/16 0544 Blood Coag Neg Staph Not Lugdunensis Blood Culture - Preliminary Resulted 12/12/16 0542 Blood NO GROWTH TO DATE. Last 24 Hours Test 12/14/16 16:19 12/14/16 20:13 12/15/16 05:15 12/15/16 07:36 Bedside Glucose 285 mg/dl 230 mg/dl 253 mg/dl White Blood Count 13.03 K/uL Red Blood Count 3.79 M/uL Hemoglobin 9.6 g/dL Hematocrit 30.7 % Mean Corpuscular Volume 81.0 fL Mean Corpuscular Hemoglobin 25.3 pg Mean Corpuscular Hemoglobin Concent 31.3 g/dl Platelet Count 280 K/uL Mean Platelet Volume 9.5 fL Neutrophils (%) (Auto) 85.9 % Lymphocytes (%) (Auto) 5.7 % Monocytes (%) (Auto) 7.8 % Eosinophils (%) (Auto) 0.0 % Basophils (%) (Auto) 0.1 % Neutrophils # (Auto) 11.21 K/uL Lymphocytes # (Auto) 0.74 K/uL Monocytes # (Auto) 1.01 K/uL Eosinophils # (Auto) 0.00 K/uL Basophils # (Auto) 0.01 K/uL RDW Standard Deviation 57.7 fL RDW Coefficient of Variation 19.2 % Immature Granulocyte % (Auto) 0.5 % Immature Granulocyte # (Auto) 0.06 K/uL Creatinine 0.99 mg/dl Est Creatinine Clear Calc Drug Dose 67.5 ml/min Estimated GFR () 84.2 Estimated GFR (Non- 72.6 Vancomycin Level Trough 11.4 mcg/ml Test 12/15/16 11:35 Bedside Glucose 329 mg/dl Assessment and Plan Patient with 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 He did previously have Cryptococcus (11/2015) and Priscila Glabrata grow from thoracentesis/BAL. Cryptococcal Ag was negative, therefore do not feel that this patient needs treatment currently for Cryptococcus from last year. HIV screen was negative. Continue supportive care for COPD exacerbation. Will also continue Vancomycin pending blood cultures. Feel that the coag-negative staph in 1/2 bottles on initial culture is likely contamination, but recommend continuing IV vancomycin pending repeat cultures. Once repeat cultures negative, likely this patient can be discontinued off of antibiotic therapy. PROVIDER ADDENDUM: Patient reviewed with Ms. Lopez. Agree with above assessment.
--- NOTE | 2016-12-15 14:32 | Pharmacy Progress Note ---
Glycemic Control Intl Consult Date of Service Dec 15, 2016. Scope Glycemic Pharmacist consulted by Dr Villatoro on 12/15/2016 for glycemic control and to write orders per [facility] inpatient glycemic control protocol Objective Weight (Kilograms): 81.800 Accuchecks BSG (last 24hrs): Test 12/14/16 16:19 12/14/16 20:13 12/15/16 07:36 12/15/16 11:35 Bedside Glucose 285 mg/dl (70-99) 230 mg/dl (70-99) 253 mg/dl (70-99) 329 mg/dl (70-99) Laboratory Data (last 24hrs) Test 12/15/16 05:15 Creatinine 0.99 mg/dl White Blood Count 13.03 K/uL Red Blood Count 3.79 M/uL Hemoglobin 9.6 g/dL Hematocrit 30.7 % Mean Corpuscular Volume 81.0 fL Mean Corpuscular Hemoglobin 25.3 pg Mean Corpuscular Hemoglobin Concent 31.3 g/dl Platelet Count 280 K/uL Mean Platelet Volume 9.5 fL Neutrophils (%) (Auto) 85.9 % Lymphocytes (%) (Auto) 5.7 % Monocytes (%) (Auto) 7.8 % Eosinophils (%) (Auto) 0.0 % Basophils (%) (Auto) 0.1 % Neutrophils # (Auto) 11.21 K/uL Lymphocytes # (Auto) 0.74 K/uL Monocytes # (Auto) 1.01 K/uL Eosinophils # (Auto) 0.00 K/uL Basophils # (Auto) 0.01 K/uL HbA1c Test 12/13/16 05:11 Hemoglobin A1c 7.4 % (4.5-5.6) H Recent Pertinent Medications Outpatient Anti-diabetic Regimen: * Glimepiride 1 mg po daily plus metformin 1000 mg PO BID The patient is currently receiving: * Correctional Insulin: Novolog Correction per scale ACHS Goal Range: Low 120 mg/dL - High 160 mg/dL Correction Factor: 20 mg/dL/unit * Prandial insulin: Per carb ratio of 1 unit per 8 grams CHO consumed Risk Factors for Insulin Resistance: * Steroids: methylprednisolone 40 mg IV z00soson since 12/13/2016; changing to prednisone 40 mg PO daily on 12/16/2016 * Infection: COPD exacerbation * Diet: type 2 heart healthy diet Assessment & Plan ASSESSMENT: * ADA & AACE recommend a goal blood sugar range 140-180 mg/dl for the majority of critically ill & non-critically ill patients. However, more stringent targets may be selected in individual cases. * Mr Gibson was admitted on 12/12/16 with a COPD exacerbation and was started on correctional insulin along with Solu-Medrol 40 mg IV q12 hours. The correctional insulin was tightened on 12/13/2016. HOWEVER, the patient's blood sugars have ranged from 253-329 while in the hospital. This is attributed to the Solu-Medrol. No basal insulin was given. The patient required 46 units of Novolog on 12/13 and 37 units on 12/14. * The patient's control as an outpatient was reasonable with an A1C of 7.4% therefore tighter blood sugar control is warranted. Since the patient's blood sugars have been elevated for so long, a one time dose of Lantus will be given and the need for additional Lantus will be evaluated tomorrow. The same correctional insulin will be continued due to the elevated blood sugars. The need for loosening the correctional factor and carbohydrate ratio will be evaluated at a later time. I know this will be necessary as steroids are tapered. PLAN FOR INPATIENT GLYCEMIC CONTROL: * Holding outpatient oral diabetes medications * Basal insulin with LANTUS 15 units x 1 * Correctional Insulin with NOVOLOG per scale ACHS * Goal Range: Low 140 mg/dL - High 180 mg/dL * Correction Factor: 20 mg/dL/unit * Nutritional / Prandial insulin per carb ratio of 1 unit per 8 grams CHO consumed * Please note that the plan above was derived based on current level of insulin resistance and hospital stress. These recommendations are appropriate for inpatient admission only. Plan of care upon discharge will need to be reassessed to avoid potential outpatient hypo/hyperglycemia. Thank you.
[2016-12-15] MEDS: SIMVASTATIN 80 MG TAB PO SCH (20:56)
[2016-12-16] VITALS (8 sets, daily range): BP systolic 122–134; BP diastolic 67–72; PULSE 58–84; TEMP 36.4–37; O2SAT 91–95
[2016-12-16] MEDS ORDERED: INSULIN ASPART 100 UNITS/ML 3 ML PEN SC SCH (02:00)
[2016-12-16] MEDS: VANCOMYCIN INJ 1,200 MG in SODIUM CHLORIDE 0.9% 250ML 250 ML IV SCH (04:06)
[2016-12-16] MEDS: LEVOTHYROXINE 75 MCG TAB PO SCH (06:27)
[2016-12-16] MEDS: FUROSEMIDE 20 MG TAB PO SCH (07:51)
[2016-12-16] MEDS: ASPIRIN 81 MG ECTAB PO SCH (07:51)
[2016-12-16] MEDS: ESCITALOPRAM OXALATE 10 MG TAB PO SCH (07:52)
[2016-12-16] MEDS: CHOLECALCIFEROL 1000 INTER.UNIT TAB PO SCH (07:52)
[2016-12-16] MEDS: BENZONATATE 100MG CAP PO SCH (07:52)
[2016-12-16] MEDS: PANTOprazole SOD 40 MG TAB PO SCH (07:52)
[2016-12-16] MEDS: ENOXAPARIN 40 MG/0.4 ML SYR SQ SCH (07:52)
[2016-12-16 07:54] LABS: CREATININE 0.88 mg/dl (0.60-1.40)
[2016-12-16] MEDS: ALBUT/IPRATROP 3MG/0.5MG NEB 3 ML VIAL INH SCH ×2 (08:02→11:20)
[2016-12-16] MEDS: ARFORMOTEROL TART 15MCG/2ML VIAL INH SCH (08:02)
[2016-12-16] MEDS: INSULIN ASPART 100 UNITS/ML 3 ML PEN SC SCH ×2 (08:52→12:15)
[2016-12-16] MEDS ORDERED: INSULIN HUMAN NPH SC SCH (10:30)
[2016-12-16] MEDS ORDERED: PRED10TA PO ×2 (10:33→12:24)
[2016-12-16] MEDS ORDERED: ASPEC81 PO (10:33)
--- NOTE | 2016-12-16 12:18 | Discharge Instructions ---
Discharge Instructions Date of Service Dec 16, 2016. Admission Reason for Admission: Copd Exacerbation Discharge Discharge Diagnosis / Problem: COPD exacerbation Discharge Goals Goal(s): Decrease discomfort, Improve function, Increase independence, Improve disease control, Improve nutritional status, Learn about illness, Diagnostic testing, Therapeutic intervention, Prevent Disease Progression, Specific goals Activity Recommendations Activity Limitations: resume your previous activity . Instructions / Follow-Up Instructions / Follow-Up you have COPD exacerbation we are give you oral prednisone 40 mg tomorrow morning- titrate down by 5 mg every 3 days until down to chronic prednisone 10 mg. you need to follow up with Dr. Mendez , he may consider outpatient bronch, you may have blood infection, and Blood culture positive, 1/2 tube, which is possible contamination you need to call pcp if have any questions of concerns, go to Ed if have fever - you need to follow up with your primary care physician in 1 week, - take medication as instructed, never overdose or any misuse, or take with alcohol, because misuse of medicine may cause organ damage or , call your primary care physician if have questions of medicaitons. - call your primary care physician OR go to local emergency room if has any fever/chill, chest pain, shortness of breathing, nausea/vomiting/abdominal pain , facial droop/slurry speech/local weakness, or if has any questions. - fall precaution - diet as instructed - you need to follow up with your subspecialist - you should understand that it is important to follow up the above instruction , and "not following the above instruction" may cause delayed or missed care of your medical conditions which may cause permanent organ damage and even . Current Hospital Diet Patient's current hospital diet: AHA Diet (Heart Healthy), Diabetes Type 2 Diet Discharge Diet Recommended Diet: Diabetes Type 2 Diet Procedures Procedures Performed: Echo Pending Studies Studies pending at discharge: no Laboratory Results Hemoglobin A1c Test 12/13/16 05:11 Range/Units Estimated Average Glucose 166 mg/dl Hemoglobin A1c 7.4 H 4.5-5.6 % Medical Emergencies . Who to Call and When: Medical Emergencies: If at any time you feel your situation is an emergency, please call 911 immediately. . Non-Emergent Contact Non-Emergency issues call your: Primary Care Provider, Anhydrous Ammonia Production Supervisor . . "Provider Documentation" section prepared by David Villatoro. . VTE Core Measure Inpt VTE Proph given/why not?: Enoxaparin (Lovenox)SQ, TMalinda. Luann, SCD's
--- NOTE | 2016-12-16 12:33 | Discharge Summary ---
Discharge Summary Date of Service Dec 16, 2016. 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 Immunizations: Have You Had Influenza Vaccine: Yes Influenza Vaccine Date: Sep 01, 2013 History of Tetanus Vaccine?: uptd History of Pneumococcal: Yes Pneumococcal Date: Sep 02, 2012 History of Hepatitis B Vaccine: No Procedures: Pulmonology consult Medication Reconciliation New Medications: Prednisone Tab (Prednisone) 10 Mg Tab 10 MG PO DAILY for 18 Days, #53 TAB 10mg/tab, 4 tab po daily for 3 days then 3 and half tab po daily for 3 days then 3 tab po daily for 3 days then 2 and half tab po daily for 3 days then 2 tab po daily for 3 days the 1 and hald tap po daily for 3 days the 1 tab po daily , Aspirin (Aspirin EC Low Dose) 81 Mg Ectab 81 MG PO QAM for 30 Days Continued Medications: Aclidinium [place] (Tudorza Pressair) 400 Mcg/Act Aer 1 PUFF INH BID Albuterol (Ventolin Hfa) 60 Puffs/5400 Mcg Aers 2 PUFFS INH QID PRN for Shortness of Breath Albuterol Sulf (Proventil 0.083% 2.5MG/3ML) 2.5 Mg/3 Ml Nebu 2.5 MG INH Q4H PRN for SOB/Wheezing, EA Arformoterol Tartrate (Brovana) 15 Mcg/2 Ml Neb 15 MCG INH BID, INHALER Cholecalciferol (Vitamin D) 5,000 Unit Tab 5000 UNIT PO DAILY Escitalopram (Lexapro) 10 Mg Tab 10 MG PO DAILY Furosemide (Lasix) 20 Mg Tab 20 MG PO DAILY, 5 Refills Furosemide (Lasix) 20 Mg Tab 20 MG PO DAILY PRN for FLUID, 3 Refills Glimepiride (Glimepiride) 1 Mg Tab 1 MG PO QAM Glucosamine-Chondroitin (Osteo Bi-Flex Regular Str) 1 Tab Tab 1 TAB PO BID Levothyroxine Sodium (Synthroid) 75 Mcg Tab 75 MCG PO DAILYBB for 30 Days, TAB Metformin Hcl (Glucophage) 500 Mg Tab 1000 MG PO BID, TAB Mometasone Furoate (Nasal) (Mometasone Furoate) 50 Mcg/Act Spr 2 SPRAYS VERONICA DAILY Multiple Vitamins W/ Minerals (Centrum) 1 Tab Tab 1 TABLET PO QAM Omeprazole (Omeprazole) 20 Mg Tab 20 MG PO QAM Oxygen (Oxygen) Gas 1.5 LITER NA HS Oxymetazoline Hcl (Afrin 0.05% Nasal [place]) 1 Btl [place] 1 SPRAY NA BID PRN for Nasal Congestion, BTL Prednisone Tab (Prednisone) 10 Mg Tab 10 MG PO DAILY Simvastatin (Zocor) 80 Mg Tab 80 MG PO HS, TAB Discharge Exam Doing well, up and walk, no difficulty breathing, failed two-step, he to home O2 when amputation and when sleep per recommend of cinema operator Review of Systems: Constitutional: No chills, No fatigue, No fever, No problem reported, No sweats, No weakness, No weight loss Eyes: No diplopia, No discharge, No eye pain, No problem reported, No redness, No worsening of vision ENT: No dental problems, No hearing loss, No nasal symptoms, No problem reported, No sore throat, No tinnitus, No trouble swallowing, No unusual epistaxis Respiratory: + cough, + wheezing (mild) Cardiovascular: No PND, No chest pain, No claudication, No edema, No orthopnea, No palpitations, No problem reported Abdomen: No GI bleeding, No constipation, No diarrhea, No nausea, No pain, No problem reported, No vomiting Musculoskeletal: No calf pain, No joint pain, No muscle pain, No problem reported, No swelling Genitourinary - Male: No dysuria, No hematuria, No impotence, No lesions, No penile discharge, No problem reported, No urinary frequency, No urinary hesitancy, No urinary incontinence, No urinary retention, No urinary urgency Neurologic: No balance problems, No memory loss, No numbness/tingling, No paralysis, No problem reported, No vertigo, No weakness Psychiatric: No anhedonism, No anxiety, No depression symptoms, No insomnia , No problem reported, No substance abuse Endocrine: No excessive thirst, No excessive urination, No fatigue, No problem reported Hematologic / Lymphatic: No abnormal bleeding/bruising, No clotting problems , No night sweats, No problem reported, No swollen lymph nodes Integumentary: No bleeding, No color change, No itch, No new/changing skin lesions, No problem reported, No rash Physical Exam: General Appearance: WD/WN, no apparent distress Eyes: normal inspection, PERRL ENT: normal ENT inspection, hearing grossly normal Neck: supple, no adenopathy, thyroid normal, no JVD Respiratory/Chest: chest non-tender, no respiratory distress, no accessory muscle use, + decreased breath sounds, + wheezing (occasional) Cardiovascular: regular rate, rhythm, no edema, no gallop, no JVD Abdomen / GI: normal bowel sounds, non tender, soft, no organomegaly, no pulsatile mass, normal rectal exam, occult blood negative Extremities: normal inspection, no calf tenderness, normal capillary refill , no pedal edema, normal range of motion Neurologic/Psychiatric: enrollment representative II-XII nml as tested, no motor/sensory deficits , alert, normal mood/affect, normal reflexes, oriented x 3 Skin: normal color, warm/dry, no rash Hospital Course 76 yo M admitted because of increased shortness of breath. COPD exacerbation - Pulm on board- appreciate recs; hx of right sided thoracentesis performed 07/2016 which grew out Cryptococcus Neoformans. 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 - Cryptococcocus is negative 12/14 switch to oral prednisone 40 mg tomorrow morning- titrate down by 5 mg every 3 days until down to chronic prednisone [address] Mendez may consider outpatient bronch, but not needed as inpatient. Two-step exercise shows patient need NC O2 2 LPM when ambulation and when sleep Blood culture positive, 1/2 tube, which is possible contamination - Continue Vanc for now, first set of blood culture is negative, second set drawn12/14,2 /2 tubes, and after 48 hours has no growth. - Will d/c vanc I told patient and , if has any signs of infection, such as fever and significant tired, need to call PCP Elevated Troponin cardiology did not feel this was an acute ischemic event despite history of CHF , likely secondary to hypoxia - 2D echo Normal biventricular systolic function. * Mild concentric left ventricular hypertrophy. * Left ventricular diastolic dysfunction. * Normal chamber dimensions. * Trace mitral,tricuspid, and aortic regurgitation. * Borderline aortic root dilatation. * Compared to an echo of 11/16/2014 there has been no significant interval change. * -- Conclusions -- * Aortic valve sclerosis moderate, without significant aortic valvular stenosis Chronic diastolic CHF Hypothyroidis Depression Hyperlipidemia The above condition stable continue current medication DM with blood glucose increased, likely from the Solu-Medrol/ steroid, will continue sliding scale pharmacy to management of blood glucose DVT ppx: Teds, SCDs, lovenox 40 mg subq CODE STATUS: FULL CODE Disposition: From home, lives with , Move off tele today, likely discharge after BCx results back in tomorrow Instructions / Follow-Up you have COPD exacerbation we are give you oral prednisone 40 mg tomorrow morning- titrate down by 5 mg every 3 days until down to chronic prednisone 10 mg. you need to follow up with Dr. Mendez , he may consider outpatient bronch, you may have blood infection, and Blood culture positive, 1/2 tube, which is possible contamination you need to call pcp if have any questions of concerns, go to Ed if have fever you need 2 LPM, of NC O2 when ambulation , and 2LPM when in sleep. - you need to follow up with your primary care physician in 1 week, - take medication as instructed, never overdose or any misuse, or take with alcohol, because misuse of medicine may cause organ damage or , call your primary care physician if have questions of medicaitons. - call your primary care physician OR go to local emergency room if has any fever/chill, chest pain, shortness of breathing, nausea/vomiting/abdominal pain , facial droop/slurry speech/local weakness, or if has any questions. - fall precaution - diet as instructed - you need to follow up with your subspecialist - you should understand that it is important to follow up the above instruction , and "not following the above instruction" may cause delayed or missed care of your medical conditions which may cause permanent organ damage and even . Total Time Spent: Greater than 30 minutes This includes examination of the patient, discharge planning, medication reconciliation, and communication with other providers. Discharge Instructions Please refer to the electronic Patient Visit Report (Discharge Instructions) for additional information. Additional Copies To Artis Gunderson M.D.; Epi Mendez MD
[2016-12-17] MEDS ORDERED: VANCOMYCIN TROUGH SCH (03:30)
[2017-02-01] MEDS ORDERED: LEVO75TA5 PO (08:47)
[2017-02-01] MEDS ORDERED: ASPI81TA28 PO (08:47)
[2017-06-17] MEDS ORDERED: LEVO75TA5 PO (05:45)
[2017-06-17] MEDS ORDERED: MAGN400T6 PO (05:46)
[2017-06-17] MEDS ORDERED: PRED10TA PO ×2 (05:51→05:55)
[2017-06-17] MEDS ORDERED: AMOX875T PO (05:58)
[2017-06-22] MEDS ORDERED: PRED10TA PO (16:41)
[2017-06-22] MEDS ORDERED: GFNSR600 PO (16:41)
[2017-06-22] MEDS ORDERED: NYSS5 PO (16:41)
== END 2016-12-16 12:47 | disposition home or self-care (01) | DRG 191 ==
LOC: ENRESERVDT → ENRESERVTM → EDBD 05:24 → C.EDB 05:25 → C.MS2W 08:02 → C.MED 13:52
PROVIDERS: ADMIT Hospitalist; ATTEND Hospitalist
DX: J44.1 Chronic obstructive pulmonary disease with (acute) exacerbation (principal); I24.8 Other forms of acute ischemic heart disease; I50.32 Chronic diastolic (congestive) heart failure; I11.0 Hypertensive heart disease with heart failure; E03.9 Hypothyroidism, unspecified; E78.5 Hyperlipidemia, unspecified; F32.9 Major depressive disorder, single episode, unspecified; E11.9 Type 2 diabetes mellitus without complications; Z79.52 Long term (current) use of systemic steroids; Z79.84 Long term (current) use of oral hypoglycemic drugs; Z79.899 Other long term (current) drug therapy

== ENCOUNTER → 2017-01-04 | Outpatient (CLI) | payer BC ==
[~2017-01-04] MED LIST changes: +AMOX875T PO; +ASPEC81 PO; +ASPI81TA28 PO; +CEPH500C PO; +CHOL1TAB42 PO; -CHOL200010 PO; +DXY100 PO; +ESCI10TA17 PO; -ESCI5TAB PO; -FEXO1TAB46 PO; +FLM4 PO; +GFNSR600 PO; +HYDR-5688 PO; +LEVO75TA5 PO; +MAGN400T6 PO; +MGNO400 PO; +NYSS5 PO; +OXGN; -PLMINSR25 INH; -POLY1POW2 PO; -POTTAB2 PO; +PRD20 PO; +PRED-301 PO
[2017-01-04 12:23] LABS: HEMATOCRIT 22.3 % (42-52)
== END | disposition home or self-care (01) ==
LOC: C.LABSPEC 11:33
PROVIDERS: ATTEND Physician Assistant Medical
DX: Z00.00 Encounter for general adult medical examination without abnormal findings (principal); D64.9 Anemia, unspecified; I95.1 Orthostatic hypotension

== ENCOUNTER → 2017-01-04 | Outpatient (CLI) | payer BC ==
[2017-01-04 13:17] LABS: HEMATOCRIT 23.6 % (42-52)
== END | disposition home or self-care (01) ==
LOC: C.LAB1850 12:43
PROVIDERS: ATTEND Physician Assistant Medical
DX: Z00.00 Encounter for general adult medical examination without abnormal findings (principal); D64.9 Anemia, unspecified

== ENCOUNTER → 2017-01-09 | Outpatient (CLI) | payer BC ==
[2017-01-09 12:59] LABS: ALB/GLOB RATIO 1.1 (0.9-2); ALKALINE PHOSPHATASE 59 U/L (45-117); ALT/SGPT 28 U/L (12-78); AST/SGOT 8 U/L (15-37); BLOOD UREA NITROGEN 12 mg/dl (7-18); CALCIUM 8.7 mg/dl (8.5-10.1); CARBON DIOXIDE 27 mmol/L (21-32); CHLORIDE 109 mmol/L (98-107); CREATININE 0.73 mg/dl (0.60-1.40); GLUCOSE 145 mg/dl (70-99); POTASSIUM 3.8 mmol/L (3.5-5.1); SODIUM 144 mmol/L (136-145)
[2017-01-09 13:30] LABS: BASO % 0.4 %; BASO ABS # 0.04 K/uL (0-0.2); COMPLETE YES; EOS % 2.3 %; HEMATOCRIT 30.5 % (42-52); IG% 1.6 %; LYMPH % 12.4 %; LYMPH ABS # 1.21 K/uL (1.2-3.4); MEAN CORPUSCULAR HEMOGLOBIN 25.9 pg (25-34); MEAN CORPUSCULAR HGB CONC 30.5 g/dl (32-36); MEAN PLATELET VOLUME 10.2 fL (7.4-10.4); MONO % 11.7 %; NEUT % 71.6 %; PLATELET COUNT 258 K/uL (130-400); RED BLOOD COUNT 3.59 M/uL (4.7-6.1); WHITE BLOOD COUNT 9.75 K/uL (4.8-10.8)
[2017-01-09 13:42] LABS: PARTIAL THROMBOPLASTIN RATIO 0.9; PROTHROMBIN TIME (PATIENT) 10.2 SECONDS (9.0-12.0)
== END | disposition home or self-care (01) ==
LOC: C.LAB 11:42
PROVIDERS: ATTEND Physician Assistant
DX: R05 Cough (principal)

== ENCOUNTER → 2017-01-19 | Outpatient (CLI) | payer BC, OTHER ==
[2017-01-19 16:05] LABS: BASO % 0.6 %; BASO ABS # 0.07 K/uL (0-0.2); EOS % 2.6 %; HEMATOCRIT 28.5 % (42-52); IG% 3.9 %; LYMPH % 11.8 %; LYMPH ABS # 1.27 K/uL (1.2-3.4); MEAN CELL VOLUME 84.3 fL (80-100); MEAN CORPUSCULAR HEMOGLOBIN 25.4 pg (25-34); MEAN PLATELET VOLUME 9.4 fL (7.4-10.4); NEUT % 66.1 %; PLATELET COUNT 369 K/uL (130-400); RED BLOOD COUNT 3.38 M/uL (4.7-6.1); WHITE BLOOD COUNT 10.79 K/uL (4.8-10.8)
[2017-01-19 16:25] LABS: TOTAL IRON BINDING CAPACITY 325 mcg/dl (250-450)
[2017-01-19 16:32] LABS: COMPLETE YES; HYPOCHROMIA PRESENT; MEAN CORPUSCULAR HGB CONC 30.2 g/dl (32-36); POLYCHROMASIA 1+
== END | disposition home or self-care (01) ==
LOC: C.LAB 15:41
PROVIDERS: ATTEND Physician Assistant
DX: J44.9 Chronic obstructive pulmonary disease, unspecified (principal)

== ENCOUNTER → 2017-03-12 | Outpatient (CLI) | payer BC ==
[~2017-03-12] MED LIST changes: -AMOX875T PO; -ASPEC81 PO; -MAGN400T6 PO; -NYSS5 PO
[2017-03-12 13:43] LABS: HEMATOCRIT 24.7 % (42-52); MEAN CELL VOLUME 81.5 fL (80-100); MEAN CORPUSCULAR HEMOGLOBIN 23.4 pg (25-34); MEAN CORPUSCULAR HGB CONC 28.7 g/dl (32-36); MEAN PLATELET VOLUME 9.8 fL (7.4-10.4); PLATELET COUNT 226 K/uL (130-400); RED BLOOD COUNT 3.03 M/uL (4.7-6.1); WHITE BLOOD COUNT 12.04 K/uL (4.8-10.8)
== END | disposition home or self-care (01) ==
LOC: C.LAB1850 12:14
PROVIDERS: ATTEND Internal Medicine Interventional Cardiology
DX: D64.9 Anemia, unspecified (principal)

== ENCOUNTER 2017-03-15 21:07 | Emergency (ER) | payer BC ==
[~2017-03-15] VITALS: Ht 182.9 cm; Wt 84.3 kg
[~2017-03-15 21:07] MED LIST changes: -CEPH500C PO; -DXY100 PO; -FLM4 PO; -GFNSR600 PO; -HYDR-5688 PO; -LEVO75TA5 PO; -MGNO400 PO; -PRD20 PO; -PRED-301 PO
[2017-03-15 21:19] VITALS: TEMP 36.4; Ht 182.9 cm; Wt 84.3 kg
[2017-03-15] MEDS ORDERED: MoRPHine SULFATE 4 MG/ML 1 ML CARP\\VIAL IV STA (22:00)
[2017-03-15] MEDS ORDERED: ONDANSETRON INJ 2 MG/ML 2 ML VIAL IV STA (22:00)
[2017-03-15 22:37] LABS: BASO % 0.2 %; BASO ABS # 0.03 K/uL (0-0.2); EOS % 0.2 %; HEMATOCRIT 32.3 % (42-52); LYMPH % 6.9 %; LYMPH ABS # 1.01 K/uL (1.2-3.4); MEAN CELL VOLUME 84.8 fL (80-100); MEAN CORPUSCULAR HEMOGLOBIN 24.9 pg (25-34); MEAN CORPUSCULAR HGB CONC 29.4 g/dl (32-36); MEAN PLATELET VOLUME 10.3 fL (7.4-10.4); MONO % 8.2 %; NEUT % 82.5 %; PLATELET COUNT 344 K/uL (130-400); RED BLOOD COUNT 3.81 M/uL (4.7-6.1)
[2017-03-15 22:55] LABS: BUN/CREATININE RATIO 14.3 (10-20); CALCIUM 9.1 mg/dl (8.5-10.1); CREATININE 1.2 mg/dl (0.60-1.40); POTASSIUM 4.4 mmol/L (3.5-5.1)
[2017-03-15 23:02] LABS: ANISOCYTOSIS PRESENT; COMPLETE YES; ECHINOCYTES 1+; POLYCHROMASIA 1+
--- NOTE | 2017-03-16 00:13 | EMERGENCY ROOM VISIT NOTE ---
History Report prepared by Triston: Ryan oCrtes Under the Supervision of: Dr. Trev Blanco D.O. First contact with patient: 21:54 Chief Complaint: FLANK PAIN Stated Complaint: PAIN IN LOWER BACK History of Present Illness The patient is a 77 year old male who presents to the Emergency Room with complaints of improving left flank pain beginning a few hours ago. He also complains of left sided abdominal pain. He rates his pain as a 7/10. The patient has a history of a known kidney stone. He denies any vomiting, or fevers. The patient notes that he is anemic and has been receiving blood transfusions. It is unknown from where he is losing the blood. He is unsure if he has had black or bloody stools. The patient's most recent blood transfusion was yesterday, and the previous was the day before that. Source of History: patient Onset: a few hours ago Position: other (left flank) Symptom Intensity: 7/10 Timing: other (improving) Associated Symptoms: + abdominal pain (left side), No fevers, No vomiting Review of Systems See HPI for pertinent positives and negatives. A total of ten systems were reviewed and were otherwise negative. Past Medical & Surgical Medical Problems: (1) Anemia (2) Bronchitis (3) Diabetes (4) Heart disease (5) Heart murmur (6) kidney colic, nish kiendy stones (7) Pneumonia Family History FHx: cancer FHx: heart disease FHx: lung disease Social History Smoking Status: Never Smoker Alcohol Use: occasionally Drug Use: none Marital Status: Housing Status: lives with significant other Occupation Status: retired Current/Historical Medications Scheduled Aclidinium [place] (Tudorza Pressair), 1 PUFF INH BID Arformoterol Tartrate (Brovana), 15 MCG INH BID Aspirin (Aspirin Ec), 81 MG PO DAILY Cholecalciferol (Vitamin D), 5,000 UNIT PO DAILY Escitalopram (Lexapro), 10 MG PO DAILY Glimepiride (Glimepiride), 1 MG PO QAM Glucosamine-Chondroitin (Osteo Bi-Flex Regular Str), 1 TAB PO BID Home O2 Therapy (Oxygen), 1.5 LITER NA HS Levothyroxine Sodium (Synthroid), 75 MCG PO DAILYBB Metformin Hcl (Glucophage), 1,000 MG PO BID Multiple Vitamins W/ Minerals (Centrum), 1 TABLET PO QAM Omeprazole (Omeprazole), 20 MG PO QAM Prednisone Tab (Prednisone), 10 MG PO DAILY Simvastatin (Zocor), 80 MG PO HS Scheduled PRN Albuterol (Ventolin Hfa), 2 PUFFS INH QID PRN for Shortness of Breath Albuterol Sulf (Proventil 0.083% 2.5MG/3ML), 2.5 MG INH Q4H PRN for SOB/Wheezing Furosemide (Lasix), 20 MG PO DAILY PRN for FLUID Mometasone Furoate (Nasal) (Mometasone Furoate), 2 SPRAYS VERONICA DAILY PRN for Nasal Congestion Oxymetazoline Hcl (Afrin 0.05% Nasal [place]), 1 SPRAY NA BID PRN for Nasal Congestion Allergies Coded Allergies: Quinolones (Verified Allergy, Severe, ANAPHYLAXIS, 03/14/17) LISTED UNDER MD ORDERS, PT. VERIFIED ANAPHYLAXIS Formoterol (Verified Allergy, Intermediate, RASH, 03/14/17) LISTED UNDER MD ORDERS, PT. VERIFIED RASH ALLERGY Metoprolol (Verified Allergy, Intermediate, RASH, 03/14/17) Sulfa Antibiotics (Verified Allergy, Intermediate, severe red rash, ) Moxifloxacin (Verified Allergy, Unknown, swelling, 03/14/17) Ofloxacin (Verified Allergy, Unknown, unknown, 03/14/17) Physical Exam Vital Signs Date Time Temp Pulse Resp B/P (MAP) Pulse Ox O2 Delivery O2 Flow Rate FiO2 03/16/17 00:07 72 14 96 03/16/17 00:01 121/63 03/15/17 23:52 75 17 95 03/15/17 23:37 77 15 95 03/15/17 23:34 131/62 03/15/17 23:24 71 03/15/17 23:20 73 18 120/65 97 Room Air 03/15/17 23:20 120/65 03/15/17 21:19 36.4 84 18 141/75 96 Room Air Physical Exam GENERAL: Awake, alert, well-appearing, in no distress HENT: Normocephalic, atraumatic. Oropharynx unremarkable. EYES: Normal conjunctiva. Sclera non-icteric. NECK: Supple. No nuchal rigidity. FROM. No JVD. RESPIRATORY: Clear to auscultation. CARDIAC: Regular rate, normal rhythm. Extremities warm and well perfused. Pulses equal. ABDOMEN: Soft, non-distended. No tenderness to palpation. No rebound or guarding. No masses. RECTAL: Deferred. MUSCULOSKELETAL: Chest examination reveals no tenderness. The back is symmetrical on inspection without obvious abnormality. Mild left CVA tenderness. No joint edema. LOWER EXTREMITIES: Calves are equal size bilaterally and non-tender. No edema. No discoloration. NEURO: Normal sensorium. No sensory or motor deficits noted. SKIN: No rash or jaundice noted. Medical Decision & Procedures ER Provider Diagnostic Interpretation: CT results per statrad and my review. CT ABDOMEN & PELVIS: Comparison: CT abdomen and pelvis 12/29/15. 9 x 6 cm obstructing calculus in the proximal left ureter causing mild left hydronephrosis. Punctate nonobstructing bilateral renal calculi. Left renal cyst. No evidence of bowel obstruction. Appendix is normal. No free air. Prostate is surgically absent. Slightly decreased trace right pleural effusion. Cardiomegaly. Laboratory Results 03/15/17 22:15 Red Blood Count 3.81, Mean Corpuscular Volume 84.8, Mean Corpuscular Hemoglobin 24.9, Mean Corpuscular Hemoglobin Concent 29.4, Mean Platelet Volume 10.3, Neutrophils (%) (Auto) 82.5, Lymphocytes (%) (Auto) 6.9, Monocytes (%) (Auto) 8.2, Eosinophils (%) (Auto) 0.2, Basophils (%) (Auto) 0.2, Neutrophils # (Auto) 12.14, Lymphocytes # (Auto) 1.01, Monocytes # (Auto) 1.20, Eosinophils # (Auto) 0.03, Basophils # (Auto) 0.03 03/15/17 22:15 Test 03/15/17 22:15 White Blood Count 14.70 K/uL (4.8-10.8) Red Blood Count 3.81 M/uL (4.7-6.1) Hemoglobin 9.5 g/dL (14.0-18.0) Hematocrit 32.3 % (42-52) Mean Corpuscular Volume 84.8 fL (80-100) Mean Corpuscular Hemoglobin 24.9 pg (25-34) Mean Corpuscular Hemoglobin Concent 29.4 g/dl (32-36) Platelet Count 344 K/uL (130-400) Mean Platelet Volume 10.3 fL (7.4-10.4) Neutrophils (%) (Auto) 82.5 % Lymphocytes (%) (Auto) 6.9 % Monocytes (%) (Auto) 8.2 % Eosinophils (%) (Auto) 0.2 % Basophils (%) (Auto) 0.2 % Neutrophils # (Auto) 12.14 K/uL (1.4-6.5) Lymphocytes # (Auto) 1.01 K/uL (1.2-3.4) Monocytes # (Auto) 1.20 K/uL (0.11-0.59) Eosinophils # (Auto) 0.03 K/uL (0-0.5) Basophils # (Auto) 0.03 K/uL (0-0.2) RDW Standard Deviation 61.0 fL (36.4-46.3) RDW Coefficient of Variation 20.6 % (11.5-14.5) Immature Granulocyte % (Auto) 2.0 % Immature Granulocyte # (Auto) 0.29 K/uL (0.00-0.02) Nucleated RBC Absolute Count (auto) 0.04 K/uL (0-0) Nucleated Red Blood Cells % 0.3 % Polychromasia 1+ Anisocytosis PRESENT Echinocytes 1+ Anion Gap 10.0 mmol/L (3-11) Est Creatinine Clear Calc Drug Dose 54.8 ml/min Estimated GFR () 66.3 Estimated GFR (Non- 57.2 BUN/Creatinine Ratio 14.3 (10-20) Calcium Level 9.1 mg/dl (8.5-10.1) Laboratory results reviewed by me Medications Administered Medications (Trade) Dose Ordered Sig/Clair Route Start Time Stop Time Status Last Admin Dose Admin Morphine Sulfate (MoRPHine SULFATE INJ) 4 mg NOW STAT IV 03/15/17 22:00 03/15/17 22:03 DC 03/15/17 22:27 4 MG Ondansetron HCl (Zofran Inj) 4 mg NOW STAT IV 03/15/17 22:00 03/15/17 22:03 DC 03/15/17 22:27 4 MG ED Course 2154: The patient was evaluated in room B12B. A complete history and physical exam was performed. 0: Ordered Zofran Inj 4 mg IV, Morphine Sulfate 4 mg IV. 0014: I reevaluated the patient. Discussed results and discharge instructions: he verbalized understanding and agreement. The patient is ready for discharge. Medical Decision Differential diagnosis: Etiologies such as renal colic, appendicitis, diverticulitis, mesenteric ischemia, aortic pathology, infections, inflammatory bowel disease, PUD, biliary pathology, UTI, as well as others were entertained. Repeat examination resting in no distress will place patient on pain medicine and antibiotics and have the patient follow up with urology this week. Impression Primary Impression: Ureterolithiasis Scribe Attestation The scribe's documentation has been prepared under my direction and personally reviewed by me in its entirety. I confirm that the note above accurately reflects all work, treatment, procedures, and medical decision making performed by me. Departure Information Dispostion Home / Self-Care Prescriptions Cephalexin Monohydrate (Keflex) 500 Mg Cap 500 MG PO QID, #28 CAP Prov: Trev Blanco, DO 03/16/17 Hydrocodone/Acetaminophen 5MG/325MG ([place] 5MG/325MG) Tab 1 TABLET PO Q6 Y for Pain for 5 Days, #14 TAB Prov: Trev Blanco, DO 03/16/17 Referrals Artis Gunderson M.D. (PCP) Kita Anne MD Patient Instructions Kidney Stones - [facility], My [facility]
[2017-03-16] MEDS ORDERED: HYDR-5688 PO (00:35)
[2017-03-16] MEDS ORDERED: CEPH500C PO (00:35)
[2017-03-16 01:09] VITALS: BP 122/66; PULSE 70; O2SAT 97
[2017-03-16 01:32] LABS: MANUAL MICROSCOPIC REQUIRED? NO; REVIEW REQ? NO; URINE APPEARANCE CLEAR (CLEAR); URINE BILIRUBIN NEG (NEG); URINE COLOR YELLOW; URINE EPITHELIAL CELL AUTO >30 /lpf (0-5); URINE NITRITE NEG (NEG); URINE SPECIFIC GRAVITY 1.028 (1.000-1.030); UROBILINOGEN NEG (NEG)
--- NOTE | 2017-03-16 06:53 | DIAGNOSTIC IMAGING REPORT ---
CT OF THE ABDOMEN AND PELVIS WITHOUT CONTRAST CLINICAL HISTORY: Lower back pain. Abdominal pain. COMPARISON STUDY: CT of the abdomen and pelvis December 29, 2015 and KUB February 15, 2016. TECHNIQUE: Axial images of the abdomen and pelvis were obtained without IV contrast. Images were reviewed in the axial, sagittal, and coronal planes. A dose lowering technique was utilized adhering to the principles of ALARA. FINDINGS: Note is made of a 1 x 0.8 cm proximal left ureteral calculus that results in moderate left hydronephrosis. There are additional punctate bilateral renal calculi. There are no additional ureteral calculi. A 1.6 cm left renal lesion is suboptimally assessed on this unenhanced exam but measures near water attenuation likely reflects a cyst. The prostate is surgically absent. There is no lymphadenopathy within the abdomen or the pelvis. A small right pleural effusion with pleural thickening is unchanged since exam of December 12, 2016. Cardiomegaly is unchanged. Evaluation of the abdomen and pelvis is suboptimal on this unenhanced exam. The liver, spleen, adrenal glands and pancreas are unremarkable. There is no evidence for a bowel obstruction. Fat-containing left inguinal hernia is present. IMPRESSION: 1. 1 x 0.8 cm proximal left ureteral calculus that results in moderate left hydronephrosis. 2. Punctate bilateral nephrolithiasis. Electronically signed by: Cesar Faye M.D. 03/16/2017 6:52 AM Dictated Date/Time: 03/16/2017 6:46 AM
== END 2017-03-16 01:10 | disposition home or self-care (01) ==
LOC: C.EDB 21:08
DX: N20.1 Calculus of ureter (principal); E11.9 Type 2 diabetes mellitus without complications; D64.9 Anemia, unspecified; I51.9 Heart disease, unspecified; Z87.442 Personal history of urinary calculi; Z79.82 Long term (current) use of aspirin; Z79.84 Long term (current) use of oral hypoglycemic drugs; Z79.899 Other long term (current) drug therapy; Z88.2 Allergy status to sulfonamides; Z88.8 Allergy status to other drugs, medicaments and biological substances; Z80.9 Family history of malignant neoplasm, unspecified; Z82.49 Family history of ischemic heart disease and other diseases of the circulatory system

== ENCOUNTER → 2017-03-19 | Day surgery (SDC) | payer BC ==
[~2017-03-19] VITALS: Ht 182.9 cm; Wt 81.8 kg
[~2017-03-19] MED LIST changes: +CEPH500C PO; +DXY100 PO; +EpHEDrine SULFATE 50MG/5ML SYR ONE; +FLM4 PO; +GFNSR600 PO; +HYDR-5688 PO; +LIDOCAINE HCL 2% 2 ML VIAL (20MG/ML) ONE; +MGNO400 PO; +PRD20 PO; +PRED-301 PO; +PROPOFOL IV EMULSION 10 MG/ML 20 ML VIAL IV ONE
[2017-03-19 12:12] VITALS: Ht 182.9 cm; Wt 81.8 kg
--- NOTE | 2017-03-19 12:28 | Endo History and Physical ---
History & Physical Date of Service: Mar 19, 2017. Chief Complaint: Anemia Referring Physician: Dr. Gunderson History of Present Illness 77 yo CM who presents for EGD and colonoscopy secondary to anemia. Past Medical History Atrial Fibrillation, Diabetes, Asthma, Gastrointestinal Disorder, Reflux, Cancer , High Cholesterol, Sleep Apnea, Heart Disease, Chronic Steroid Use Past Surgical History Hx Cardiac Surgery: No Hx Internal Defibrillator: No Hx Pacemaker: No Hx Abdominal Surgery: No Hx of Implantable Prosthesis: No Hx Post-Op Nausea and Vomiting: No Hx Cancer Surgery: Yes (PROSTATE CANCER) Hx Thoracic Surgery: No Hx Orthopedic: Yes (RIGHT SHOULDER) Hx Urinary Tract Surgery: No Family History None Social History Smoking Status: Former Smoker Hx Substance Use: No Hx Alcohol Use: No Allergies Coded Allergies: Quinolones (Verified Allergy, Severe, ANAPHYLAXIS, 03/19/17) LISTED UNDER MD ORDERS, PT. VERIFIED ANAPHYLAXIS Formoterol (Verified Allergy, Intermediate, RASH, 03/19/17) LISTED UNDER MD ORDERS, PT. VERIFIED RASH ALLERGY Metoprolol (Verified Allergy, Intermediate, RASH, 03/19/17) Sulfa Antibiotics (Verified Allergy, Intermediate, severe red rash, ) Moxifloxacin (Verified Allergy, Unknown, swelling, 03/19/17) Ofloxacin (Verified Allergy, Unknown, unknown, 03/19/17) Current Medications Reported Home Medications Medications Dose Route/Sig Max Daily Dose Days Date Category Keflex (Cephalexin Monohydrate) 500 Mg Cap 500 Mg PO QID 03/16/17 Rx Aspirin Ec (Aspirin) 81 Mg Tab 81 Mg PO DAILY 02/01/17 Reported Prednisone 10 Mg Tab 10 Mg PO DAILY 12/12/16 Reported Oxygen Gas 1.5 Liter NA HS 12/12/16 Reported Vitamin D (Cholecalciferol) 5,000 Unit Tab 5,000 Unit PO DAILY 12/12/16 Reported Mometasone Furoate (Mometasone Furoate (Nasal)) 50 Mcg/Act Spr 2 Sprays VERONICA DAILY PRN 12/12/16 Reported Lasix (Furosemide) 20 Mg Tab 20 Mg PO DAILY PRN 12/12/16 Reported Lexapro (Escitalopram Oxalate) 10 Mg Tab 10 Mg PO DAILY 12/12/16 Reported Synthroid (Levothyroxine Sodium) 75 Mcg Tab 75 Mcg PO DAILYBB 30 10/04/16 Rx Brovana (Arformoterol Tartrate) 15 Mcg/2 Ml Neb 15 Mcg INH BID 09/29/16 Reported Ventolin Hfa (Albuterol) 60 Puffs/5400 Mcg Aers 2 Puffs INH QID PRN 09/29/16 Reported Proventil 0.083% 2.5MG/3ML (Albuterol Sulf) 2.5 Mg/3 Ml Nebu 2.5 Mg INH Q4H PRN 09/29/16 Reported Afrin 0.05% Nasal [place] (Oxymetazoline Hcl) 1 Btl [place] 1 [place] NA BID PRN 03/11/15 Reported Glimepiride 1 Mg Tab 1 Mg PO QAM 04/17/14 Reported Tudorza Pressair (Aclidinium [place]) 400 Mcg/Act Aer 1 Puff INH BID 12/26/13 Reported Osteo Bi-Flex Regular Str (Glucosamine-Chondroitin) 1 Tab Tab 1 Tab PO BID 12/26/13 Reported Zocor (Simvastatin) 80 Mg Tab 80 Mg PO HS 12/01/12 Reported Omeprazole 20 Mg Tab 20 Mg PO QAM 12/01/12 Reported Glucophage (Metformin Hcl) 500 Mg Tab 1,000 Mg PO BID 12/01/12 Reported Centrum (Multiple Vitamins W/ Minerals) 1 Tab Tab 1 Tablet PO QAM 12/01/12 Reported Vital Signs Weight (Kilograms): 81.82 Height (Feet): 6 Date Time Temp Pulse Resp B/P (MAP) Pulse Ox O2 Delivery O2 Flow Rate FiO2 03/19/17 12:10 36.3 77 22 141/73 (95) 98 Room Air Physical Exam General Appearance: WD/WN, no apparent distress Respiratory/Chest: Auscultation: breath sounds normal Cardiovascular: Heart Auscultation: RRR Abdomen: Bowel Sounds: normal Inspection & Palpation: soft, non-distended, no tenderness, guarding & rebound Assessment and Plan Assessment: 77 yo CM who presents for EGD and colonoscopy secondary to anemia. Plan: Proceed with EGD and colonoscopy.
--- NOTE | 2017-03-19 13:16 | GI REPORT ---
Procedure Date: 03/19/2017 12:18 PM Procedure: Upper GI endoscopy Indications: Iron deficiency anemia Medicines: Monitored Anesthesia Care Complications: No immediate complications. Estimated Blood Loss: Estimated blood loss: none. Procedure: Pre-Anesthesia Assessment: - Prior to the procedure, a History and Physical was performed, and patient medications and allergies were reviewed. The patient's tolerance of previous anesthesia was also reviewed. The risks and benefits of the procedure and the sedation options and risks were discussed with the patient. All questions were answered, and informed consent was obtained. Prior Anticoagulants: The patient has taken aspirin, last dose was 1 day prior to procedure. ASA Grade Assessment: IV - A patient with severe systemic disease that is a constant threat to life. After reviewing the risks and benefits, the patient was deemed in satisfactory condition to undergo the procedure. After obtaining informed consent, the endoscope was passed under direct vision. Throughout the procedure, the patient's blood pressure, pulse, and oxygen saturations were monitored continuously. The scope was introduced through the mouth, and advanced to the second part of duodenum. The upper GI endoscopy was accomplished without difficulty. The patient tolerated the procedure well. Findings: The esophagus was normal. A small hiatus hernia was present. The examined duodenum was normal. Impression: - Normal esophagus. - Small hiatus hernia. - Normal examined duodenum. - No specimens collected. - No findings on this exam to explain patient's symptoms. Recommendation: - Resume previous diet. - Continue present medications. - Return to primary care physician as previously scheduled. Melquiades Brooke DO 03/19/2017 1:16:28 PM This report has been signed electronically. Note Initiated On: 03/19/2017 12:18 PM I attest to the content of the Intraoperative Record and orders documented therein, exceptions below
--- NOTE | 2017-03-19 13:18 | GI REPORT ---
Procedure Date: 03/19/2017 12:18 PM Procedure: Colonoscopy Indications: Iron deficiency anemia Medicines: Monitored Anesthesia Care Complications: No immediate complications. Estimated Blood Loss: Estimated blood loss: none. Procedure: Pre-Anesthesia Assessment: - Prior to the procedure, a History and Physical was performed, and patient medications and allergies were reviewed. The patient's tolerance of previous anesthesia was also reviewed. The risks and benefits of the procedure and the sedation options and risks were discussed with the patient. All questions were answered, and informed consent was obtained. Prior Anticoagulants: The patient has taken aspirin, last dose was 1 day prior to procedure. ASA Grade Assessment: IV - A patient with severe systemic disease that is a constant threat to life. After reviewing the risks and benefits, the patient was deemed in satisfactory condition to undergo the procedure. After I obtained informed consent, the scope was passed under direct vision. Throughout the procedure, the patient's blood pressure, pulse, and oxygen saturations were monitored continuously. The On-site loaner was introduced through the anus and advanced to the terminal ileum. The colonoscopy was performed without difficulty. The patient tolerated the procedure well. The quality of the bowel preparation was good. The terminal ileum, ileocecal valve, appendiceal orifice, and rectum were photographed. Findings: A 5 mm polyp was found in the transverse colon. The polyp was sessile. The polyp was removed with a hot snare. Resection and retrieval were complete. Multiple small-mouthed diverticula were found in the sigmoid colon. Non-bleeding internal hemorrhoids were found during retroflexion. The hemorrhoids were small. Impression: - One 5 mm polyp in the transverse colon, removed with a hot snare. Resected and retrieved. - Diverticulosis in the sigmoid colon. - Non-bleeding internal hemorrhoids. - No findings on this exam to explain patient's anemia. Recommendation: - Repeat colonoscopy for surveillance based on pathology results. - Return to primary care physician as previously scheduled. Melquiades Brooke, DO 03/19/2017 1:18:18 PM This report has been signed electronically. Note Initiated On: 03/19/2017 12:18 PM I attest to the content of the Intraoperative Record and orders documented therein, exceptions below
--- NOTE | 2017-03-19 13:19 | Discharge Instructions ---
Endoscopy Patient Instructions Date / Procedure(s) Performed Mar 19, 2017. Colonoscopy, EGD Allergy Information Coded Allergies: Quinolones (Verified Allergy, Severe, ANAPHYLAXIS, 03/19/17) LISTED UNDER MD ORDERS, PT. VERIFIED ANAPHYLAXIS Formoterol (Verified Allergy, Intermediate, RASH, 03/19/17) LISTED UNDER MD ORDERS, PT. VERIFIED RASH ALLERGY Metoprolol (Verified Allergy, Intermediate, RASH, 03/19/17) Sulfa Antibiotics (Verified Allergy, Intermediate, severe red rash, ) Moxifloxacin (Verified Allergy, Unknown, swelling, 03/19/17) Ofloxacin (Verified Allergy, Unknown, unknown, 03/19/17) Discharge Date / Findings Mar 19, 2017. EGD: Hiatal hernia Colonoscopy: Colon polyp, Diverticulosis, Internal hemorrhoids Medication Instructions Stopped Medication(s): ASPIRIN LAST DOSE 03/18/17 OK to resume all medications today as prescribed Reported Home Medications Medications Dose Route/Sig Max Daily Dose Days Date Category Keflex (Cephalexin Monohydrate) 500 Mg Cap 500 Mg PO QID 03/16/17 Rx Aspirin Ec (Aspirin) 81 Mg Tab 81 Mg PO DAILY 02/01/17 Reported Prednisone 10 Mg Tab 10 Mg PO DAILY 12/12/16 Reported Oxygen Gas 1.5 Liter NA HS 12/12/16 Reported Vitamin D (Cholecalciferol) 5,000 Unit Tab 5,000 Unit PO DAILY 12/12/16 Reported Mometasone Furoate (Mometasone Furoate (Nasal)) 50 Mcg/Act Spr 2 Sprays VERONICA DAILY PRN 12/12/16 Reported Lasix (Furosemide) 20 Mg Tab 20 Mg PO DAILY PRN 12/12/16 Reported Lexapro (Escitalopram Oxalate) 10 Mg Tab 10 Mg PO DAILY 12/12/16 Reported Synthroid (Levothyroxine Sodium) 75 Mcg Tab 75 Mcg PO DAILYBB 30 10/04/16 Rx Brovana (Arformoterol Tartrate) 15 Mcg/2 Ml Neb 15 Mcg INH BID 09/29/16 Reported Ventolin Hfa (Albuterol) 60 Puffs/5400 Mcg Aers 2 Puffs INH QID PRN 09/29/16 Reported Proventil 0.083% 2.5MG/3ML (Albuterol Sulf) 2.5 Mg/3 Ml Nebu 2.5 Mg INH Q4H PRN 09/29/16 Reported Afrin 0.05% Nasal [place] (Oxymetazoline Hcl) 1 Btl [place] 1 [place] NA BID PRN 03/11/15 Reported Glimepiride 1 Mg Tab 1 Mg PO QAM 04/17/14 Reported Tudorza Pressair (Aclidinium [place]) 400 Mcg/Act Aer 1 Puff INH BID 12/26/13 Reported Osteo Bi-Flex Regular Str (Glucosamine-Chondroitin) 1 Tab Tab 1 Tab PO BID 12/26/13 Reported Zocor (Simvastatin) 80 Mg Tab 80 Mg PO HS 12/01/12 Reported Omeprazole 20 Mg Tab 20 Mg PO QAM 12/01/12 Reported Glucophage (Metformin Hcl) 500 Mg Tab 1,000 Mg PO BID 12/01/12 Reported Centrum (Multiple Vitamins W/ Minerals) 1 Tab Tab 1 Tablet PO QAM 12/01/12 Reported Provider Instructions Activity Restrictions - No exercising or heavy lifting for 24 hours. - Do not drink alcohol the day of the procedure. - Do not drive a car or operate machinery until the day after the procedure. - Do not make any important decisions or sign important papers in 24 hours after the procedure. Following Day: - Return to full activity which may include returning to work/school. Diet Start your diet with liquids and light foods (jello, soup, juice, toast). Then eat your usual diet if not nauseated. Treatment For Common After Affects For mild abdominal pain, bloating, or excessive gas: - Rest - Eat lightly - Lie on right side Follow-Up Information Follow-up with DR. NAVA as scheduled Anesthesia Information What You Should Know You have had a procedure that required some medicine to reduce anxiety and discomfort. This treatment is called moderate sedation. After receiving the treatment, you may be sleepy, but you will be able to breathe on your own. The effects of the treatment may last for several hours. Follow these instructions along with Activity/Diet recommendations noted above: * Do NOT do anything where dizziness or clumsiness would be dangerous. * Rest quietly at home today, then you can be up and about tomorrow. * Have a responsible person stay with you the rest of today. * You may have had an I.V. today. If so, you may take the dressing off later today. Recommendations Call your doctor if: * Trouble breathing * Continuous vomiting for more than 24 hours * Temperature above 101 degrees * Severe abdominal pain or bloating * Pain not relieved by pain medicine ordered * There is increased drainage or redness from any incision * A large amount of rectal bleeding greater than 2-3 tablespoons. (If you had a polyp/s removed or have hemorrhoids, a small amount of blood - from the rectum is to be expected.) * You have any unanswered questions or concerns. IN THE EVENT OF A SERIOUS EMERGENCY, GO TO THE NEAREST EMERGENCY ROOM Your discharge instructions were prepared by provider Melquiades Brooke. Patient Instructions Signature Page Maninder Gibson Patient (or Guardian) Signature/Date: I have read and understand the instructions given to me by my caregivers. Caregiver/RN/Doctor Signature/Date: The above-named patient and/or guardian has received patient instructions on this date. + Original Patient Signature Page (only) stays with chart. Please make copy for patient.
[2017-03-19 13:46] VITALS: BP 142/72; PULSE 68; O2SAT 98
--- NOTE | 2017-03-19 13:47 | Anesthesiology Progress Note ---
Anesthesia Post Op Note Date & Time Mar 19, 2017 at 13:46 Vital Signs Pain Intensity: 0 Vital Signs Past 12 Hours Date Time Temp Pulse Resp B/P (MAP) Pulse Ox O2 Delivery O2 Flow Rate FiO2 03/19/17 13:23 78 25 122/66 (84) 98 Room Air 03/19/17 13:08 78 16 117/60 (79) 98 Room Air 03/19/17 12:10 36.3 77 22 141/73 (95) 98 Room Air Notes Mental Status: alert / awake / arousable, participated in evaluation Pt Amnestic to Procedure: Yes Nausea / Vomiting: adequately controlled Pain: adequately controlled Airway Patency, RR, SpO2: stable & adequate BP & HR: stable & adequate Hydration State: stable & adequate Anesthetic Complications: no major complications apparent
== END | disposition home or self-care (01) ==
LOC: C.GI 11:39
PROVIDERS: ATTEND Internal Medicine
DX: D50.9 Iron deficiency anemia, unspecified (principal); D12.3 Benign neoplasm of transverse colon; K57.30 Diverticulosis of large intestine without perforation or abscess without bleeding; K44.9 Diaphragmatic hernia without obstruction or gangrene; K64.8 Other hemorrhoids; I48.91 Unspecified atrial fibrillation; E11.9 Type 2 diabetes mellitus without complications; J44.9 Chronic obstructive pulmonary disease, unspecified; K21.9 Gastro-esophageal reflux disease without esophagitis; E78.00 Pure hypercholesterolemia, unspecified; G47.30 Sleep apnea, unspecified; Z79.52 Long term (current) use of systemic steroids; Z85.46 Personal history of malignant neoplasm of prostate; Z87.891 Personal history of nicotine dependence; Z79.82 Long term (current) use of aspirin; Z79.84 Long term (current) use of oral hypoglycemic drugs; Z95.0 Presence of cardiac pacemaker; E03.9 Hypothyroidism, unspecified

== ENCOUNTER → 2017-03-23 | Outpatient (CLI) | payer BC ==
[~2017-03-23] MED LIST changes: -EpHEDrine SULFATE 50MG/5ML SYR ONE; -LIDOCAINE HCL 2% 2 ML VIAL (20MG/ML) ONE; -PROPOFOL IV EMULSION 10 MG/ML 20 ML VIAL IV ONE
== END | disposition home or self-care (01) ==
LOC: C.LABSPEC 16:31
PROVIDERS: ATTEND Urology
DX: N20.0 Calculus of kidney (principal)

== ENCOUNTER → 2017-03-26 | Outpatient (CLI) | payer BC ==
[~2017-03-26] MED LIST changes: -HYDR-5688 PO
--- NOTE | 2017-03-26 13:50 | DIAGNOSTIC IMAGING REPORT ---
KUB CLINICAL HISTORY: N20.1 Ureteric [id number] COMPARISON STUDY: KUB dated 02/07/2016, CT scan dated 03/15/2017 FINDINGS: There is no pathologic bowel dilatation. No renal calculi are visualized. There are multiple surgical clips within the pelvis, likely secondary to a prior lymph node dissection. There is a 9 x 5 mm calcification projected over the left L4 transverse process. This is consistent with a proximal left ureteral calculus. IMPRESSION: 9 x 5 mm proximal left ureteral calculus at the L4 level Electronically signed by: Rodger Robison M.D. 03/26/2017 1:48 PM Dictated Date/Time: 03/26/2017 1:43 PM
== END | disposition home or self-care (01) ==
LOC: C.RAD 13:25
PROVIDERS: ATTEND Urology
DX: N20.1 Calculus of ureter (principal)

== ENCOUNTER → 2017-03-27 | Outpatient (CLI) | payer BC ==
[2017-03-27 12:40] LABS: INR 0.9 (0.9-1.1); PROTHROMBIN TIME (PATIENT) 10.1 SECONDS (9.0-12.0)
[2017-03-27 14:52] LABS: ALKALINE PHOSPHATASE 59 U/L (45-117); ALT/SGPT 23 U/L (12-78); AST/SGOT 11 U/L (15-37)
== END | disposition home or self-care (01) ==
LOC: C.LAB 09:50
PROVIDERS: ATTEND Urology
DX: N20.0 Calculus of kidney (principal)

== ENCOUNTER → 2017-03-28 | Outpatient (CLI) | payer BC ==
--- NOTE | 2017-03-28 12:18 | DIAGNOSTIC IMAGING REPORT ---
CHEST 2 VIEWS ROUTINE CLINICAL HISTORY: PNEUMONIA dyspnea COMPARISON STUDY: 12/12/2016 FINDINGS: Mild stable cardiomegaly. Stable blunting right lateral calcific angle. Lungs otherwise appear clear. IMPRESSION: Chronic change. No acute process. The above report was generated using voice recognition software. It may contain grammatical, syntax or spelling errors. Electronically signed by: Trae Lucas M.D. 03/28/2017 12:17 PM Dictated Date/Time: 03/28/2017 12:14 PM
== END | disposition home or self-care (01) ==
LOC: C.RAD1850 11:57
PROVIDERS: ATTEND Physician Assistant
DX: J18.9 Pneumonia, unspecified organism (principal)

== ENCOUNTER 2017-04-04 11:14 | Inpatient (IN) | payer BC, OTHER ==
[~2017-04-04] VITALS: Ht 182.9 cm; Wt 80.9 kg
[~2017-04-04 11:14] MED LIST changes: -DXY100 PO; -FLM4 PO; -GFNSR600 PO; -MGNO400 PO; -PRD20 PO; -PRED-301 PO
[2017-04-04] MEDS ORDERED: METHYLPREDNISOLONE 125 MG VIAL IV STA (11:38)
[2017-04-04] MEDS ORDERED: SODIUM CHLORIDE 0.9% 500ML 500 ML IV STA (11:38)
[2017-04-04] MEDS ORDERED: ALBUT/IPRATROP 3MG/0.5MG NEB 3 ML VIAL INH ONE (11:45)
--- NOTE | 2017-04-04 11:49 | EMERGENCY ROOM VISIT NOTE ---
History Report prepared by Triston: Megan Rosado Under the Supervision of: Dr. Chaka Houser M.D. First contact with patient: 11:29 Chief Complaint: SHORTNESS OF BREATH Stated Complaint: SOB,COUGHING Nursing Triage Summary: Cough, short of breath on exertion. Heavinesss in the chest. Pt being treated for pneumonia with no improvement. Had a fever last evening. History of Present Illness The patient is a 77 year old male who presents to the Emergency Room with complaints of worsening shortness of breath beginning 1 week ago. Exertion exacerbates his shortness of breath. The patient also has a cough and heaviness in his chest. The patient reports using an inhaler and that he has had 5 blood transfusions in the past. Source of History: patient Onset: 1 week ago Position: other (global) Quality: other (shortness of breath) Timing: worsening Associated Symptoms: + cough, + chest pain (heaviness in chest) Review of Systems See HPI for pertinent positives & negatives. A total of 10 systems reviewed and were otherwise negative. Past Medical & Surgical Medical Problems: (1) Acute on chronic diastolic (congestive) heart failure (2) Anemia (3) Bronchitis (4) Diabetes (5) Heart disease (6) Heart murmur (7) kidney colic, nish kiendy stones (8) Pneumonia Family History FHx: cancer FHx: heart disease FHx: lung disease Social History Smoking Status: Never Smoker Alcohol Use: occasionally Drug Use: none Marital Status: Housing Status: lives with significant other Occupation Status: retired Current/Historical Medications Scheduled Aclidinium Star (Tudorza Pressair), 1 PUFF INH BID Arformoterol Tartrate (Brovana), 15 MCG INH BID Aspirin (Aspirin Ec), 81 MG PO DAILY Cephalexin Monohydrate (Keflex), 500 MG PO QID Cholecalciferol (Vitamin D), 5,000 UNIT PO DAILY Escitalopram (Lexapro), 10 MG PO DAILY Glimepiride (Glimepiride), 1 MG PO QAM Glucosamine-Chondroitin (Osteo Bi-Flex Regular Str), 1 TAB PO BID Home O2 Therapy (Oxygen), 1.5 LITER NA HS Levothyroxine Sodium (Synthroid), 75 MCG PO DAILYBB Metformin Hcl (Glucophage), 1,000 MG PO BID Multiple Vitamins W/ Minerals (Centrum), 1 TABLET PO QAM Omeprazole (Omeprazole), 20 MG PO QAM Prednisone Tab (Prednisone), 10 MG PO DAILY Simvastatin (Zocor), 80 MG PO HS Scheduled PRN Albuterol (Ventolin Hfa), 2 PUFFS INH QID PRN for Shortness of Breath Albuterol Sulf (Proventil 0.083% 2.5MG/3ML), 2.5 MG INH Q4H PRN for SOB/Wheezing Furosemide (Lasix), 20 MG PO DAILY PRN for FLUID Mometasone Furoate (Nasal) (Mometasone Furoate), 2 SPRAYS VERONICA DAILY PRN for Nasal Congestion Oxymetazoline Hcl (Afrin 0.05% Nasal Robbins), 1 SPRAY NA BID PRN for Nasal Congestion Allergies Coded Allergies: Quinolones (Verified Allergy, Severe, ANAPHYLAXIS, 04/04/17) LISTED UNDER MD ORDERS, PT. VERIFIED ANAPHYLAXIS Formoterol (Verified Allergy, Intermediate, RASH, 04/04/17) LISTED UNDER MD ORDERS, PT. VERIFIED RASH ALLERGY Metoprolol (Verified Allergy, Intermediate, RASH, 04/04/17) Sulfa Antibiotics (Verified Allergy, Intermediate, severe red rash, ) Moxifloxacin (Verified Allergy, Unknown, swelling, 04/04/17) Ofloxacin (Verified Allergy, Unknown, unknown, 04/04/17) Physical Exam Vital Signs Date Time Temp Pulse Resp B/P (MAP) Pulse Ox O2 Delivery O2 Flow Rate FiO2 04/04/17 15:39 95 18 126/71 95 Nasal Cannula 2.0 04/04/17 14:29 94 Nasal Cannula 2.0 04/04/17 14:28 87 Room Air 04/04/17 14:11 89 04/04/17 14:11 101 16 125/63 94 Room Air 04/04/17 13:15 88 12 140/58 100 Nebulizer 8.0 04/04/17 12:27 67 14 98 Room Air 04/04/17 12:15 67 12 131/79 96 Room Air 04/04/17 12:14 96 Room Air 04/04/17 11:28 76 04/04/17 11:26 75 18 159/79 96 Room Air 04/04/17 11:19 94 Room Air 04/04/17 11:16 36.4 82 22 166/68 94 Room Air Physical Exam GENERAL: Patient is a healthy-appearing well-nourished male HEAD: Normocephalic atraumatic EYES: Ocular movements intact pupils equal and react to light OROPHARYNX mucous membranes are moist no exudates present no erythema or edema present NECK: Supple no nuchal rigidity CHEST: Good equal expansion LUNGS: Diffuse wheezing all lung art CARDIAC: Normal S1 and S2 ABDOMEN: Soft nontender no guarding BACK: No CVA tenderness EXTREMITIES: No pain upon palpation normal muscle strength in all groups no clubbing cyanosis or edema NEURO: Patient is following commands and answering questions appropriately. Alert and oriented x3 Cranial Nerves 2-12 grossly intact Medical Decision & Procedures ER Provider Diagnostic Interpretation: X-ray results as stated below per interpretation by me and the radiologist: CHEST ONE VIEW PORTABLE CLINICAL HISTORY: 77 years-old Male presenting with Pt c/o SOB. TECHNIQUE: Portable upright AP view of the chest was obtained. COMPARISON: 03/28/2017. FINDINGS: Atherosclerosis of aortic arch. Enlarged cardiac silhouette, unchanged. Minimal opacity at the right lung base with associated blunting of the lateral costophrenic angle. Osseous structures normal. Upper abdomen normal. IMPRESSION: 1. Stable appearance of minimal right basilar opacity, likely atelectasis or scarring, with associated small pleural effusion or pleural thickening. 2. Cardiomegaly. No south pulmonary edema. Electronically signed by: Timothy Barry M.D. 04/04/2017 12:44 PM Dictated Date/Time: 04/04/2017 12:42 PM Radiology results as stated below per my review and radiologist interpretation: (CHEST FOR PE) ANGIO WITH CT DOSE: 343.37 mGy.cm HISTORY: Chest pain dyspnea TECHNIQUE: Multiaxial CT images of the chest were performed following the intravenous administration of contrast to evaluate the pulmonary arteries. Maximal intensity projection images were also obtained. A dose lowering technique was utilized adhering to the principles of ALARA. COMPARISON STUDY: None. FINDINGS: There is a normal caliber thoracic aorta with no evidence for dissection. There is no evidence for pulmonary embolus. No pleural effusions. No pneumothorax. The liver and spleen are unremarkable. No mediastinal or hilar lymphadenopathy. The central airways are patent. The lungs are clear. Mild peribronchial thickening. Mild dependent basilar atelectasis. IMPRESSION: No evidence for pulmonary embolus. Mild dependent basilar atelectasis. Mild peribronchial thickening throughout both hemithoraces. Trace pleural fluid right base The above report was generated using voice recognition software. It may contain grammatical, syntax or spelling errors. Electronically signed by: Trae Lucas M.D. 04/04/2017 2:07 PM Dictated Date/Time: 04/04/2017 2:00 PM Laboratory Results 04/04/17 11:55 Red Blood Count 3.88, Mean Corpuscular Volume 86.9, Mean Corpuscular Hemoglobin 26.3, Mean Corpuscular Hemoglobin Concent 30.3, Mean Platelet Volume 9.9, Neutrophils (%) (Auto) 79.7, Lymphocytes (%) (Auto) 8.9, Monocytes (%) (Auto) 6.4, Eosinophils (%) (Auto) 0.3, Basophils (%) (Auto) 0.2, Neutrophils # (Auto) 10.36, Lymphocytes # (Auto) 1.16, Monocytes # (Auto) 0.83, Eosinophils # (Auto) 0.04, Basophils # (Auto) 0.02 Test 04/04/17 00:00 04/04/17 11:55 04/04/17 12:03 04/04/17 12:06 Urine Color YELLOW Urine Appearance CLEAR (CLEAR) Urine pH 5.0 (4.5-7.5) Urine Specific [place] > 1.045 (1.000-1.030) Urine Protein NEG (NEG) Urine Glucose (UA) 3+ (NEG) Urine Ketones 1+ (NEG) Urine Occult Blood 2+ (NEG) Urine Nitrite NEG (NEG) Urine Bilirubin NEG (NEG) Urine Urobilinogen NEG (NEG) Urine Leukocyte Esterase NEG (NEG) Urine WBC (Auto) 10-30 /hpf (0-5) Urine RBC (Auto) >30 /hpf (0-4) Urine Hyaline Casts (Auto) 1-5 /lpf (0-5) Urine Epithelial Cells (Auto) 5-10 /lpf (0-5) Urine Bacteria (Auto) NEG (NEG) White Blood Count 13.00 K/uL (4.8-10.8) Red Blood Count 3.88 M/uL (4.7-6.1) Hemoglobin 10.2 g/dL (14.0-18.0) Hematocrit 33.7 % (42-52) Mean Corpuscular Volume 86.9 fL (80-100) Mean Corpuscular Hemoglobin 26.3 pg (25-34) Mean Corpuscular Hemoglobin Concent 30.3 g/dl (32-36) Platelet Count 273 K/uL (130-400) Mean Platelet Volume 9.9 fL (7.4-10.4) Neutrophils (%) (Auto) 79.7 % Lymphocytes (%) (Auto) 8.9 % Monocytes (%) (Auto) 6.4 % Eosinophils (%) (Auto) 0.3 % Basophils (%) (Auto) 0.2 % Neutrophils # (Auto) 10.36 K/uL (1.4-6.5) Lymphocytes # (Auto) 1.16 K/uL (1.2-3.4) Monocytes # (Auto) 0.83 K/uL (0.11-0.59) Eosinophils # (Auto) 0.04 K/uL (0-0.5) Basophils # (Auto) 0.02 K/uL (0-0.2) RDW Standard Deviation 68.7 fL (36.4-46.3) RDW Coefficient of Variation 21.8 % (11.5-14.5) Immature Granulocyte % (Auto) 4.5 % Immature Granulocyte # (Auto) 0.59 K/uL (0.00-0.02) Nucleated RBC Absolute Count (auto) 0.04 K/uL (0-0) Nucleated Red Blood Cells % 0.3 % Polychromasia 1+ Anisocytosis PRESENT Total Bilirubin 0.3 mg/dl (0.2-1) Aspartate Amino Transf (AST/SGOT) 7 U/L (15-37) Alanine Aminotransferase (ALT/SGPT) 24 U/L (12-78) Alkaline Phosphatase 70 U/L (45-117) Total Protein 6.5 gm/dl (6.4-8.2) Albumin 3.1 gm/dl (3.4-5.0) Globulin 3.4 gm/dl (2.5-4.0) Albumin/Globulin Ratio 0.9 (0.9-2) Bedside D-Dimer > 450 ng/mlFEU (0-450) Bedside Hemoglobin 11.2 g/dl (14.0-18.0) Bedside Hematocrit 33 % (42-52) Bedside Sodium 139 mEq/L (135-144) Bedside Potassium 3.8 mEq/L (3.3-5.0) Bedside Chloride 102 mEq/L (101-112) Bedside Total CO2 24 mEq/l (24-31) Bedside Blood Urea Nitrogen 13 mg/dl (7-18) Bedside Creatinine 0.7 mg/dl (0.6-1.3) Bedside Glucose (other) 236 mg/dl (70-99) Bedside Ionized Calcium (Juan Carlos) 1.29 mmol/l (1.12-1.32) Test 04/04/17 12:18 Influenza Type A Antigen Neg for Influ A (NEG) Influenza Type B Antigen Neg for Influ B (NEG) Labs reviewed by ED physician. Medications Administered Medications (Trade) Dose Ordered Sig/Clair Route Start Time Stop Time Status Last Admin Dose Admin Methylprednisolone Sodium Succinate (Solu-Medrol IV) 60 mg NOW STAT IV 04/04/17 11:38 04/04/17 11:42 DC 04/04/17 12:13 60 MG Albuterol/ Ipratropium (Duoneb) 12 ml ONE ONCE INH 04/04/17 11:45 04/04/17 11:46 DC 04/04/17 12:26 12 ML Sodium Chloride 500 ml @ 999 mls/hr Q31M STAT IV 04/04/17 11:38 04/04/17 12:08 DC 04/04/17 12:13 999 MLS/HR Piperacillin Sod/ Tazobactam Sod (Zosyn Iv) 4.5 gm NOW STAT IV 04/04/17 14:12 04/04/17 14:17 DC 04/04/17 14:57 4.5 GM Doxycycline Hyclate 100 mg/ Dextrose 110 ml @ 50 mls/hr NOW STAT IV 04/04/17 14:12 04/04/17 16:23 DC 04/04/17 15:36 50 MLS/HR Vancomycin HCl (Vancomycin 1gm/ 270ml Nss) 1 gm NOW STAT IV 04/04/17 14:12 04/04/17 14:17 DC 04/04/17 15:36 1 GM ECG Indication: SOB/dyspnea Rate (beats per minute): 79 Rhythm: normal sinus Findings: no acute ischemic change, no ectopy ED Course 1144: Past medical records reviewed. The patient was evaluated in room C7. A complete history and physical examination was performed. 1138: Ordered Sodium Chloride 500 ml @ 999 mls/hr IV, Methylprednisolone Sodium Succinate 60 mg IV. 1145: Ordered Duoneb 12 ml INH. 1230: The patient's D-dimer is 563. 1412: Ordered Vancomycin HCl 1 gm IV, Doxycycline Hyclate 100 mg/Dextrose 110 ml @ 50 mls/hr IV, Zosyn Iv 4.5 gm IV. 1422: Upon reexamination the patient is resting. I discussed results and treatment plan with the patient. him verbalizes agreement and understanding. I spoke with Dr. Garcia from the [facility]. The patient will be evaluated for further management. Medical Decision Differential diagnosis: Etiologies such as infections, reactive airway disease, pneumonia, pneumothorax , COPD, CHF, cardiac ischemia, pulmonary embolism, musculoskeletal, gastrointestinal, as well as others were entertained. This is a 77-year-old male who presents emergency department complaining of upper respiratory like infection that has been ongoing for the past several days. Upon arrival to the emergency department the patient has recently finished a course of prednisone and antibiotics without improvement. He also does have an elevation in his white blood count cell count. For this reason the patient was pancultured inserted on antibiotics. He was given an hour-long breathing treatment as he is diffusely wheezing. I did discuss the case with the hospitalist service who agreed to admit the patient. Patient and are in agreement with the treatment plan. Medication Reconcilliation Current Medication List: was personally reviewed by me Blood Pressure Screening Patient's blood pressure: Elevated blood pressure Blood pressure disposition: Referred to PCP Consults Time Called: 1400 Consulting Physician: Dr. Garcia-[facility] Returned Call: [phone] Upon reexamination the patient is resting. I discussed results and treatment plan with the patient. him verbalizes agreement and understanding. I spoke with Dr. Garcia from the [facility]. The patient will be evaluated for further management. Impression Primary Impression: Bronchitis Scribe Attestation The scribe's documentation has been prepared under my direction and personally reviewed by me in its entirety. I confirm that the note above accurately reflects all work, treatment, procedures, and medical decision making performed by me. Departure Information Dispostion Being Evaluated By Hospitalist Referrals Artis Gunderson M.D. (PCP) Patient Instructions My [facility]
[2017-04-04 12:17] LABS: ISTAT CREATININE 0.7 mg/dl (0.6-1.3); ISTAT HEMOGLOBIN 11.2 g/dl (14.0-18.0); ISTAT IONIZED CALCIUM 1.29 mmol/l (1.12-1.32)
[2017-04-04 12:18] LABS: HEMATOCRIT 33.7 % (42-52); MEAN CELL VOLUME 86.9 fL (80-100); MEAN CORPUSCULAR HEMOGLOBIN 26.3 pg (25-34); MEAN CORPUSCULAR HGB CONC 30.3 g/dl (32-36); MEAN PLATELET VOLUME 9.9 fL (7.4-10.4); PLATELET COUNT 273 K/uL (130-400); RED BLOOD COUNT 3.88 M/uL (4.7-6.1)
[2017-04-04 12:27] VITALS: PULSE 67; O2SAT 98
[2017-04-04] MEDS ORDERED: OPTIRAY 320 IV PRN (12:30)
[2017-04-04 12:35] LABS: ANISOCYTOSIS PRESENT; BASO % 0.2 %; BASO ABS # 0.02 K/uL (0-0.2); COMPLETE YES; EOS % 0.3 %; IG% 4.5 %; LYMPH % 8.9 %; LYMPH ABS # 1.16 K/uL (1.2-3.4); MONO % 6.4 %; NEUT % 79.7 %; POLYCHROMASIA 1+
[2017-04-04 12:37] LABS: BUN/CREATININE RATIO 16.8 (10-20); CALCIUM 9.5 mg/dl (8.5-10.1); CREATININE 0.81 mg/dl (0.60-1.40); POTASSIUM 3.8 mmol/L (3.5-5.1)
[2017-04-04 12:39] LABS: ALB/GLOB RATIO 0.9 (0.9-2)
--- NOTE | 2017-04-04 12:46 | DIAGNOSTIC IMAGING REPORT ---
CHEST ONE VIEW PORTABLE CLINICAL HISTORY: 77 years-old Male presenting with Pt c/o SOB. TECHNIQUE: Portable upright AP view of the chest was obtained. COMPARISON: 03/28/2017. FINDINGS: Atherosclerosis of aortic arch. Enlarged cardiac silhouette, unchanged. Minimal opacity at the right lung base with associated blunting of the lateral costophrenic angle. Osseous structures normal. Upper abdomen normal. IMPRESSION: 1. Stable appearance of minimal right basilar opacity, likely atelectasis or scarring, with associated small pleural effusion or pleural thickening. 2. Cardiomegaly. No south pulmonary edema. Electronically signed by: Timothy Barry M.D. 04/04/2017 12:44 PM Dictated Date/Time: 04/04/2017 12:42 PM
--- NOTE | 2017-04-04 14:09 | DIAGNOSTIC IMAGING REPORT ---
(CHEST FOR PE) ANGIO WITH CT DOSE: 343.37 mGy.cm HISTORY: Chest pain dyspnea TECHNIQUE: Multiaxial CT images of the chest were performed following the intravenous administration of contrast to evaluate the pulmonary arteries. Maximal intensity projection images were also obtained. A dose lowering technique was utilized adhering to the principles of ALARA. COMPARISON STUDY: None. FINDINGS: There is a normal caliber thoracic aorta with no evidence for dissection. There is no evidence for pulmonary embolus. No pleural effusions. No pneumothorax. The liver and spleen are unremarkable. No mediastinal or hilar lymphadenopathy. The central airways are patent. The lungs are clear. Mild peribronchial thickening. Mild dependent basilar atelectasis. IMPRESSION: No evidence for pulmonary embolus. Mild dependent basilar atelectasis. Mild peribronchial thickening throughout both hemithoraces. Trace pleural fluid right base The above report was generated using voice recognition software. It may contain grammatical, syntax or spelling errors. Electronically signed by: Trae Lucas M.D. 04/04/2017 2:07 PM Dictated Date/Time: 04/04/2017 2:00 PM
[2017-04-04] MEDS ORDERED: DOXYCYCLINE IV 100 MG in DEXTROSE 5% 100ML 100 ML IV STA (14:12)
[2017-04-04] MEDS ORDERED: PIPERACILLIN/TAZOBACTAM 4.5 GM/100ML D5W IV STA (14:12)
[2017-04-04] MEDS ORDERED: VANCOMYCIN 1GM/270ML NSS IV STA (14:12)
--- NOTE | 2017-04-04 15:52 | Medical Student: [facility] ---
Med Student History & Physical Date & Time of Service: Apr 04, 2017 at 15:46 Chief Complaint: Sob,Coughing Primary Care Physician: Artis Gunderson M.D. History of Present Illness Source: patient, spouse Maninder Gibson is a 77 year old man with a history of COPD, Stage I diastolic heart failure, Type II DM presenting with cough and shortness of breath. He has been experiencing worsening shortness of breath over the past 1-2 weeks, as well as a cough that won't go away. The shortness of breath is worse when he "tries to do too much" and he sleeps propped up with 2 pillows at home. His cough is constant, but denies coughing anything up, no blood, nothing green yellow clear or brown. He also complains of a "heaviness" in his chest. EKG revealed only premature contractions but he denies palpitations. He was being seen at the Pulmonology office at the [facility], when they decided he appeared too ill, hadn't gotten better from his visit the week before, and they referred him to the ED. He denies headache, dizziness, chest pain, palpitations , abdominal pain, nausea, vomiting, numbness, tingling, weakness, or depressive symptoms. Past Medical/Surgical History Medical Problems: (1) Acute GI bleeding Status: Acute (2) Anticoagulated Status: Acute (3) Bronchitis Status: Acute (4) Calculus of right kidney Status: Acute (5) Chest tightness Status: Acute (6) Hydronephrosis with urinary obstruction due to renal calculus Status: Acute (7) Renal colic Status: Acute (8) Right flank pain Status: Acute (9) Right flank pain Status: Acute (10) Symptomatic anemia Status: Acute (11) Ureterolithiasis Status: Acute Family History Father: no pertinent history ( of "old age") Mother: heart disease, cancer, no pertinent history ( in 80s) Sibling(s): cancer Social History Smoking Status: Never Smoker Smokeless Tobacco Use: No Alcohol Use: none Drug Use: none Marital Status: Housing status: lives with family Occupational Status: retired Immunizations History of Influenza Vaccine: Yes Influenza Vaccine Date: Sep 01, 2013 History of Tetanus Vaccine?: uptd History of Pneumococcal: Yes Pneumococcal Date: Sep 02, 2012 History of Hepatitis B Vaccine: No Allergies Coded Allergies: Quinolones (Verified Allergy, Severe, ANAPHYLAXIS, 04/04/17) LISTED UNDER MD ORDERS, PT. VERIFIED ANAPHYLAXIS Formoterol (Verified Allergy, Intermediate, RASH, 04/04/17) LISTED UNDER MD ORDERS, PT. VERIFIED RASH ALLERGY Metoprolol (Verified Allergy, Intermediate, RASH, 04/04/17) Sulfa Antibiotics (Verified Allergy, Intermediate, severe red rash, ) Moxifloxacin (Verified Allergy, Unknown, swelling, 04/04/17) Ofloxacin (Verified Allergy, Unknown, unknown, 04/04/17) Medications Aclidinium [place] (Tudorza Pressair), 1 PUFF INH BID Albuterol (Ventolin Hfa), 2 PUFFS INH QID PRN for Shortness of Breath Albuterol Sulf (Proventil 0.083% 2.5MG/3ML), 2.5 MG INH Q4H PRN for SOB/Wheezing Arformoterol Tartrate (Brovana), 15 MCG INH BID Aspirin (Aspirin Ec), 81 MG PO DAILY Cephalexin Monohydrate (Keflex), 500 MG PO QID Cholecalciferol (Vitamin D), 5,000 UNIT PO DAILY Escitalopram (Lexapro), 10 MG PO DAILY Furosemide (Lasix), 20 MG PO DAILY PRN for FLUID Glimepiride (Glimepiride), 1 MG PO QAM Glucosamine-Chondroitin (Osteo Bi-Flex Regular Str), 1 TAB PO BID Home O2 Therapy (Oxygen), 1.5 LITER NA HS Levothyroxine Sodium (Synthroid), 75 MCG PO DAILYBB Metformin Hcl (Glucophage), 1,000 MG PO BID Mometasone Furoate (Nasal) (Mometasone Furoate), 2 SPRAYS VERONICA DAILY PRN for Nasal Congestion Multiple Vitamins W/ Minerals (Centrum), 1 TABLET PO QAM Omeprazole (Omeprazole), 20 MG PO QAM Oxymetazoline Hcl (Afrin 0.05% Nasal [place]), 1 SPRAY NA BID PRN for Nasal Congestion Prednisone Tab (Prednisone), 10 MG PO DAILY Simvastatin (Zocor), 80 MG PO HS Review of Systems Constitutional: + fever ("Doctors said I have a slight fever when I came in today"), No chills, No sweats Eyes: No worsening of vision, No problem reported ENT: + hearing loss (hearing aids), No problem reported Respiratory: + cough ("not coughing anything up"), + shortness of breath Cardiovascular: + problem reported ("heaviness throughout chest"), No chest pain, No palpitations Abdomen: + diarrhea, No pain, No nausea, No vomiting, No constipation, No GI bleeding, No problem reported Musculoskeletal: No joint pain, No muscle pain Genitourinary - Male: No hematuria, No dysuria Neurologic: No paralysis, No weakness, No numbness/tingling Psychiatric: No depression symptoms, No problem reported Hematologic / Lymphatic: No abnormal bleeding/bruising, No problem reported Integumentary: No rash, No itch Physical Exam Vital Signs (24 Hours) Date Time Temp Pulse Resp B/P (MAP) Pulse Ox O2 Delivery O2 Flow Rate FiO2 04/04/17 15:39 95 18 126/71 95 Nasal Cannula 2.0 04/04/17 14:29 94 Nasal Cannula 2.0 04/04/17 14:28 87 Room Air 04/04/17 14:11 89 04/04/17 14:11 101 16 125/63 94 Room Air 04/04/17 13:15 88 12 140/58 100 Nebulizer 8.0 04/04/17 12:27 67 14 98 Room Air 04/04/17 12:15 67 12 131/79 96 Room Air 04/04/17 12:14 96 Room Air 04/04/17 11:28 76 04/04/17 11:26 75 18 159/79 96 Room Air 04/04/17 11:19 94 Room Air 04/04/17 11:16 36.4 82 22 166/68 94 Room Air General Appearance: WD/WN, no apparent distress Head: normocephalic, atraumatic Eyes: normal inspection, PERRL, EOMI, sclerae normal ENT: normal ENT inspection, hearing grossly normal, pharynx normal, + pertinent finding (Chronic [place] of hearing: requires aids, eye lens implants) Neck: supple, no adenopathy, trachea midline, + JVD Respiratory/Chest: chest non-tender, no accessory muscle use, + wheezing, + pertinent finding (cough throughout entire exam) Cardiovascular: regular rate, rhythm, normal peripheral pulses, + JVD, + systolic murmur, + pertinent finding (bilateral lower extremity +1 pitting edema ) Abdomen/GI: normal bowel sounds, non tender, soft Genitourinary - Male: + pertinent finding (midline abdominal wall weakening) Extremities/Musculoskelatal: no calf tenderness, no pedal edema, normal range of motion 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, no motor/sensory deficits, alert, normal mood/affect, normal reflexes, oriented x 3 Skin: normal color, warm/dry, no rash Diagnostics Laboratory Results Results Past 24 Hours Test 04/04/17 11:55 04/04/17 12:03 04/04/17 12:06 04/04/17 12:18 Range/Units White Blood Count 13.00 4.8-10.8 K/uL Red Blood Count 3.88 4.7-6.1 M/uL Hemoglobin 10.2 14.0-18.0 g/dL Hematocrit 33.7 42-52 % Mean Corpuscular Volume 86.9 80-100 fL Mean Corpuscular Hemoglobin 26.3 25-34 pg Mean Corpuscular Hemoglobin Concent 30.3 32-36 g/dl Platelet Count 273 130-400 K/uL Mean Platelet Volume 9.9 7.4-10.4 fL Neutrophils (%) (Auto) 79.7 % Lymphocytes (%) (Auto) 8.9 % Monocytes (%) (Auto) 6.4 % Eosinophils (%) (Auto) 0.3 % Basophils (%) (Auto) 0.2 % Neutrophils # (Auto) 10.36 1.4-6.5 K/uL Lymphocytes # (Auto) 1.16 1.2-3.4 K/uL Monocytes # (Auto) 0.83 0.11-0.59 K/uL Eosinophils # (Auto) 0.04 0-0.5 K/uL Basophils # (Auto) 0.02 0-0.2 K/uL RDW Standard Deviation 68.7 36.4-46.3 fL RDW Coefficient of Variation 21.8 11.5-14.5 % Immature Granulocyte % (Auto) 4.5 % Immature Granulocyte # (Auto) 0.59 0.00-0.02 K/uL Nucleated RBC Absolute Count (auto) 0.04 0-0 K/uL Nucleated Red Blood Cells % 0.3 % Polychromasia 1+ Anisocytosis PRESENT Sodium Level 140 136-145 mmol/L Potassium Level 3.8 3.5-5.1 mmol/L Chloride Level 107 98-107 mmol/L Carbon Dioxide Level 27 21-32 mmol/L Anion Gap 6.0 17.0 16-25 mmol/L Blood Urea Nitrogen 14 7-18 mg/dl Creatinine 0.81 0.60-1.40 mg/dl Est Creatinine Clear Calc Drug Dose 81.2 ml/min Estimated GFR () 98.0 Estimated GFR (Non- 84.5 BUN/Creatinine Ratio 16.8 10-20 Random Glucose 225 70-99 mg/dl Calcium Level 9.5 8.5-10.1 mg/dl Total Bilirubin 0.3 0.2-1 mg/dl Aspartate Amino Transf (AST/SGOT) 7 15-37 U/L Alanine Aminotransferase (ALT/SGPT) 24 12-78 U/L Alkaline Phosphatase 70 45-117 U/L Total Protein 6.5 6.4-8.2 gm/dl Albumin 3.1 3.4-5.0 gm/dl Globulin 3.4 2.5-4.0 gm/dl Albumin/Globulin Ratio 0.9 0.9-2 Bedside D-Dimer > 450 0-450 ng/mlFEU Bedside Hemoglobin 11.2 14.0-18.0 g/dl Bedside Hematocrit 33 42-52 % Bedside Sodium 139 135-144 mEq/L Bedside Potassium 3.8 3.3-5.0 mEq/L Bedside Chloride 102 101-112 mEq/L Bedside Total CO2 24 24-31 mEq/l Bedside Blood Urea Nitrogen 13 7-18 mg/dl Bedside Creatinine 0.7 0.6-1.3 mg/dl Bedside Glucose (other) 236 70-99 mg/dl Bedside Ionized Calcium ([place]) 1.29 1.12-1.32 mmol/l Influenza Type A Antigen Neg for Influ A NEG Influenza Type B Antigen Neg for Influ B NEG Microbiology Results 04/04/17 Blood Culture, Received Pending 04/04/17 Blood Culture, Received Pending Diagnostic Radiology X-ray results as stated below per interpretation by me and the radiologist: CHEST ONE VIEW PORTABLE CLINICAL HISTORY: 77 years-old Male presenting with Pt c/o SOB. TECHNIQUE: Portable upright AP view of the chest was obtained. COMPARISON: 03/28/2017. FINDINGS: Atherosclerosis of aortic arch. Enlarged cardiac silhouette, unchanged. Minimal opacity at the right lung base with associated blunting of the lateral costophrenic angle. Osseous structures normal. Upper abdomen normal. IMPRESSION: 1. Stable appearance of minimal right basilar opacity, likely atelectasis or scarring, with associated small pleural effusion or pleural thickening. 2. Cardiomegaly. No south pulmonary edema. (CHEST FOR PE) ANGIO WITH CT DOSE: 343.37 mGy.cm HISTORY: Chest pain dyspnea TECHNIQUE: Multiaxial CT images of the chest were performed following the intravenous administration of contrast to evaluate the pulmonary arteries. Maximal intensity projection images were also obtained. A dose lowering technique was utilized adhering to the principles of ALARA. COMPARISON STUDY: None. FINDINGS: There is a normal caliber thoracic aorta with no evidence for dissection. There is no evidence for pulmonary embolus. No pleural effusions. No pneumothorax. The liver and spleen are unremarkable. No mediastinal or hilar lymphadenopathy. The central airways are patent. The lungs are clear. Mild peribronchial thickening. Mild dependent basilar atelectasis. IMPRESSION: No evidence for pulmonary embolus. Mild dependent basilar atelectasis. Mild peribronchial thickening throughout both hemithoraces. Trace pleural fluid right base EKG premature supraventricular contractions Impression Assessment and Plan Maninder Gibson is a 77 year old man with a history of COPD, Stage I diastolic heart failure, Type II DM presenting with cough and shortness of breath due to COPD exacerbation and possible acute on chronic diastolic heart failure 1. COPD exacerbation -Start IV solumedrol 40mg q6h -Duoneb q2h PRN for shortness of breath and wheezing -Mucinex -Pulmonary toilet -Incentive spirometry. -Continue most his home inhalers -Obtain sputum culture -Narrow antibiotics to doxycycline 100mg BID, as imaging did not reveal evidence of pneumonia 2. Possible acute on chronic diastolic CHF JVD was present about 2/3 up his neck, and he had bilateral lower extremity edema. Chest CT revealed some peribronchial findings, possibly explained by acute flare up of Diastolic CHF -Give one dose of Lasix 20mg IV, and re-check his status tomorrow morning -Check BMP -Diet: fluid and salt restriction 3. Type II DM: uncontrolled -Hold oral diabetic medications -Lantus 10 units BID -Novolog: correction factor of 30; carb ratio of 1:10. 4. History of Atrial Flutter: not currently present -Place on telemetry because of risk of exacerbation 5. Anemia: Iron deficiency and B12 deficiency -The Cause of his Iron deficiency anemia is unknown. EGD and colonoscopy performed earlier this summer were negative. Celiac testing was negative -He has been receiving [facility]: next one is scheduled for Sunday -B12 level was borderline low, plus CBC revelead anisocytosis. Will also supplement oral B12. -Recheck CBC in 48 hours 6. Left-sided Ureterolithiasis: Asymptomatic -9mm -Established with Urology 7. Hypothyroidism: stable; last TSH was normal in August 2016 -Continue Synthroid 75 mcg PO Daily 8. GERD -Pantoprazole 40 mg PO Daily 9. Hyperlipidemia -Pravistation 80 mg PO daily 10. Depression: stable -Lexapro 10 mg PO Daily Code Status: Full Resuscitation DVT Prophylaxis: Lovenox Level of Care Telemetry Resuscitation Status FULL RESUSCITATION DVT Prophylaxis enoxaparin (Lovenox) SQ Social Service Consult None Apply
[2017-04-04] MEDS ORDERED: ONDANSETRON INJ 2 MG/ML 2 ML VIAL IV PRN (17:00)
[2017-04-04] MEDS ORDERED: ACETAMINOPHEN 325 MG TAB PO PRN (17:00)
[2017-04-04] MEDS ORDERED: ALUMINUM/MAGNESIUM/SIMETH (MAALOX MAX) 30 ML UDC PO PRN (17:00)
[2017-04-04] MEDS ORDERED: POTASSIUM CHLORIDE 10 MEQ TABCR PO STA (17:07)
[2017-04-04] MEDS ORDERED: CYANOCOBALAMIN 500 MCG TAB (VIT B-12) PO ONE (17:13)
--- NOTE | 2017-04-04 17:14 | History and Physical ---
History & Physical Date & Time of Service: Apr 04, 2017 at 15:58 Chief Complaint: Sob,Coughing Primary Care Physician: Artis Gunderson M.D. History of Present Illness Source: patient 77yo male with history of COPD, T2DM, and prostate cancer who presented today from the pulmonary office with worsening dyspnea, chest heaviness, and nonproductive cough. Recently seen in the office about 1 week ago and was placed on antibiotics and steroids for the above symptoms. Despite such his symptoms have progressed over the last few days. No fevers or chills. Denies any significant weight gain but has noted some abdominal swelling as well as edema of his legs. Past Medical/Surgical History PMH: 1. prostate cancer - history of 2. COPD 3. T2DM 4. depression 5. chronic diastolic CHF 6. history of kidney stones 7. hypothyroidism 8. hyperlipidemia PSH: 1. prostatectomy - 2000 2. 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 VERIFIED ANAPHYLAXIS Formoterol (Verified Allergy, Intermediate, RASH, 04/04/17) LISTED UNDER MD ORDERS, PT. VERIFIED RASH ALLERGY Metoprolol (Verified Allergy, Intermediate, RASH, 04/04/17) Sulfa Antibiotics (Verified Allergy, Intermediate, severe red rash, ) Moxifloxacin (Verified Allergy, Unknown, swelling, 04/04/17) Ofloxacin (Verified Allergy, Unknown, unknown, 04/04/17) Home Medications Scheduled Aclidinium [place] (Tudorza Pressair), 1 PUFF INH BID Arformoterol Tartrate (Brovana), 15 MCG INH BID Aspirin (Aspirin Ec), 81 MG PO DAILY Cephalexin Monohydrate (Keflex), 500 MG PO QID Cholecalciferol (Vitamin D), 5,000 UNIT PO DAILY Escitalopram (Lexapro), 10 MG PO DAILY Glimepiride (Glimepiride), 1 MG PO QAM Glucosamine-Chondroitin (Osteo Bi-Flex Regular Str), 1 TAB PO BID Home O2 Therapy (Oxygen), 1.5 LITER NA HS Levothyroxine Sodium (Synthroid), 75 MCG PO DAILYBB Metformin Hcl (Glucophage), 1,000 MG PO BID Multiple Vitamins W/ Minerals (Centrum), 1 TABLET PO QAM Omeprazole (Omeprazole), 20 MG PO QAM Prednisone Tab (Prednisone), 10 MG PO DAILY Simvastatin (Zocor), 80 MG PO HS Scheduled PRN Albuterol (Ventolin Hfa), 2 PUFFS INH QID PRN for Shortness of Breath Albuterol Sulf (Proventil 0.083% 2.5MG/3ML), 2.5 MG INH Q4H PRN for SOB/Wheezing Furosemide (Lasix), 20 MG PO DAILY PRN for FLUID Mometasone Furoate (Nasal) (Mometasone Furoate), 2 SPRAYS VERONICA DAILY PRN for Nasal Congestion Oxymetazoline Hcl (Afrin 0.05% Nasal [place]), 1 SPRAY NA BID PRN for Nasal Congestion Review of Systems Constitutional: No fever, No chills, No sweats, No weight loss, No weakness, No fatigue Eyes: No worsening of vision ENT: No nasal symptoms, No sore throat, No trouble swallowing Respiratory: + cough, + wheezing, + shortness of breath, + dyspnea on exertion , No sputum, No hemoptysis Cardiovascular: + chest pain, + orthopnea, + edema, No PND Abdomen: No pain, No nausea, No vomiting, No diarrhea, No constipation, No GI bleeding Musculoskeletal: No joint pain, No muscle pain Genitourinary - Male: No hematuria, No dysuria Neurologic: No numbness/tingling Psychiatric: No depression symptoms Endocrine: No fatigue Hematologic / Lymphatic: No abnormal bleeding/bruising Integumentary: No rash Physical Exam Vital Signs Date Time Temp Pulse Resp B/P (MAP) Pulse Ox O2 Delivery O2 Flow Rate FiO2 04/04/17 15:39 95 18 126/71 95 Nasal Cannula 2.0 04/04/17 14:29 94 Nasal Cannula 2.0 04/04/17 14:28 87 Room Air 04/04/17 14:11 89 04/04/17 14:11 101 16 125/63 94 Room Air 04/04/17 13:15 88 12 140/58 100 Nebulizer 8.0 04/04/17 12:27 67 14 98 Room Air 04/04/17 12:15 67 12 131/79 96 Room Air 04/04/17 12:14 96 Room Air 04/04/17 11:28 76 04/04/17 11:26 75 18 159/79 96 Room Air 04/04/17 11:19 94 Room Air 04/04/17 11:16 36.4 82 22 166/68 94 Room Air General Appearance: WD/WN, no apparent distress Head: normocephalic, atraumatic Eyes: PERRL ENT: hearing grossly normal, TMs normal, pharynx normal Neck: no adenopathy, thyroid normal, + JVD (about 2/3 [address] up neck) Respiratory/Chest: no respiratory distress, no accessory muscle use, + rales (b /l bases worse on right), + wheezing (diffuse) Cardiovascular: regular rate, rhythm, no gallop, normal peripheral pulses, + systolic murmur (2/6 LLSB) Abdomen/GI: normal bowel sounds, non tender, soft, no organomegaly Back: normal inspection Extremities/Musculoskelatal: + pedal edema (1+ b/l) Neurologic/Psych: no motor/sensory deficits, alert, normal mood/affect, normal reflexes, oriented x 3 Skin: no rash Lymphatic: no adenopathy (cervical ) Diagnostics Laboratory Results Results Past 24 Hours Test 04/04/17 11:55 04/04/17 12:03 04/04/17 12:06 04/04/17 12:18 Range/Units White Blood Count 13.00 4.8-10.8 K/uL Red Blood Count 3.88 4.7-6.1 M/uL Hemoglobin 10.2 14.0-18.0 g/dL Hematocrit 33.7 42-52 % Mean Corpuscular Volume 86.9 80-100 fL Mean Corpuscular Hemoglobin 26.3 25-34 pg Mean Corpuscular Hemoglobin Concent 30.3 32-36 g/dl Platelet Count 273 130-400 K/uL Mean Platelet Volume 9.9 7.4-10.4 fL Neutrophils (%) (Auto) 79.7 % Lymphocytes (%) (Auto) 8.9 % Monocytes (%) (Auto) 6.4 % Eosinophils (%) (Auto) 0.3 % Basophils (%) (Auto) 0.2 % Neutrophils # (Auto) 10.36 1.4-6.5 K/uL Lymphocytes # (Auto) 1.16 1.2-3.4 K/uL Monocytes # (Auto) 0.83 0.11-0.59 K/uL Eosinophils # (Auto) 0.04 0-0.5 K/uL Basophils # (Auto) 0.02 0-0.2 K/uL RDW Standard Deviation 68.7 36.4-46.3 fL RDW Coefficient of Variation 21.8 11.5-14.5 % Immature Granulocyte % (Auto) 4.5 % Immature Granulocyte # (Auto) 0.59 0.00-0.02 K/uL Nucleated RBC Absolute Count (auto) 0.04 0-0 K/uL Nucleated Red Blood Cells % 0.3 % Polychromasia 1+ Anisocytosis PRESENT Sodium Level 140 136-145 mmol/L Potassium Level 3.8 3.5-5.1 mmol/L Chloride Level 107 98-107 mmol/L Carbon Dioxide Level 27 21-32 mmol/L Anion Gap 6.0 17.0 16-25 mmol/L Blood Urea Nitrogen 14 7-18 mg/dl Creatinine 0.81 0.60-1.40 mg/dl Est Creatinine Clear Calc Drug Dose 81.2 ml/min Estimated GFR () 98.0 Estimated GFR (Non- 84.5 BUN/Creatinine Ratio 16.8 10-20 Random Glucose 225 70-99 mg/dl Calcium Level 9.5 8.5-10.1 mg/dl Total Bilirubin 0.3 0.2-1 mg/dl Aspartate Amino Transf (AST/SGOT) 7 15-37 U/L Alanine Aminotransferase (ALT/SGPT) 24 12-78 U/L Alkaline Phosphatase 70 45-117 U/L Total Protein 6.5 6.4-8.2 gm/dl Albumin 3.1 3.4-5.0 gm/dl Globulin 3.4 2.5-4.0 gm/dl Albumin/Globulin Ratio 0.9 0.9-2 Bedside D-Dimer > 450 0-450 ng/mlFEU Bedside Hemoglobin 11.2 14.0-18.0 g/dl Bedside Hematocrit 33 42-52 % Bedside Sodium 139 135-144 mEq/L Bedside Potassium 3.8 3.3-5.0 mEq/L Bedside Chloride 102 101-112 mEq/L Bedside Total CO2 24 24-31 mEq/l Bedside Blood Urea Nitrogen 13 7-18 mg/dl Bedside Creatinine 0.7 0.6-1.3 mg/dl Bedside Glucose (other) 236 70-99 mg/dl Bedside Ionized Calcium ([place]) 1.29 1.12-1.32 mmol/l Influenza Type A Antigen Neg for Influ A NEG Influenza Type B Antigen Neg for Influ B NEG Microbiology Results 04/04/17 Blood Culture, Received Pending 04/04/17 Blood Culture, Received Pending Diagnostic Radiology CTA chest: IMPRESSION: No evidence for pulmonary embolus. Mild dependent basilar atelectasis. Mild peribronchial thickening throughout both hemithoraces. Trace pleural fluid right base. EKG my reading - NSR, large R waves V1 and V2, no ST changes; PACs Impression Assessment and Plan 77yo male with h/o COPD, T2DM, prior prostate cancer, and chronic diastolic CHF presenting with COPD exacerbation and possible acute/chronic diastolic CHF. 1. COPD with exacerbation - start IV solumedrol 40mg q6h. Nebs q6h. Mucinex, pulmonary toilet, incentive spirometry. Continue most of his home inhalers/ nebs. Send sputum culture if able. Recently received augmentin as an outpatient. Since imaging does not demonstrate a pneumonia process will use narrow spectrum antibiotics in the form of doxycycline 100mg BID. 2. possible acute/chronic diastolic CHF - he appears mildly volume overloaded based on his neck veins, peripheral edema, etc. Some of the peribronchial findings on CT could be pulmonary edema. Will give lasix 20mg IV x 1 and re- eval in AM. Check daily weights; fluid/salt restrict. 3. T2DM - uncontrolled - place on lantus 10 units BID + novolog with correction of 30 and carb ratio of 1:10. He likely will need adjustments given the steroid use. Hold oral agents. 4. DVT proph - lovenox 40mg daily. 5. hypothyroidism - continue synthroid; TSH in 2017 was normal. 6. anemia - appears to have combination of Fe Deficiency anemia and he is also borderline B12 deficient. [facility] and is due later this week for such. Will also supplement oral B12. Recheck CBC in 48 hours for stability. Cause of Fe deficiency is unknown - had negative EGD/colonoscopy just a few weeks ago by Dr. Brooke. Prior celiac panel was also normal. 7. GI proph - PPI. 8. hyperlipidemia - statin. 9. h/o a. flutter - per records - place on telemetry as he is at risk of paroxysmal a. flutter due to increased stress, etc. 10. left-sided kidney stone, 9mm - no symptoms at this time. Is already established with urology. PT consult updated full code level 1 Resuscitation Status FULL RESUSCITATION VTE Prophylaxis VTE Risk Assessment Done? Y/N: Yes Risk Level: Moderate Given or contraindicated: Enoxaparin (Lovenox)SQ Note total time about 70 minutes Additional Copies To Artis Gunderson M.D.
[2017-04-04 17:51] LABS: URINE APPEARANCE CLEAR (CLEAR); URINE BILIRUBIN NEG (NEG); URINE COLOR YELLOW; URINE NITRITE NEG (NEG); URINE SPECIFIC GRAVITY > 1.045 (1.000-1.030); UROBILINOGEN NEG (NEG)
[2017-04-04 17:54] LABS: MANUAL MICROSCOPIC REQUIRED? NO; REVIEW REQ? NO
[2017-04-04 18:14] VITALS: BP 149/71; PULSE 92; TEMP 36.5; O2SAT 94; Ht 182.9 cm; Wt 80.9 kg
[2017-04-04] MEDS ORDERED: GLUCOSE 10 TABS/TUBE PO PRN (19:30)
[2017-04-04] MEDS ORDERED: GLUCAGON FOR INJ 1 MG VIAL SQ PRN (19:30)
[2017-04-04] MEDS ORDERED: DEXTROSE 50% 50 ML SYR IV PRN (19:30)
[2017-04-04] MEDS ORDERED: FUROSEMIDE INJ 20 MG in SYRINGE 0 ML IV ONE (19:30)
[2017-04-04] MEDS ORDERED: GLUCOSE 40% GEL 15 GM TUBE PO PRN (19:30)
[2017-04-04 19:46] VITALS: BP 136/64; PULSE 83; TEMP 37; O2SAT 93
[2017-04-04] MEDS: MAGNESIUM OXIDE 400 MG TAB PO SCH (19:51)
[2017-04-04] MEDS: DOXYCYCLINE HYCLATE 100 MG CAP PO SCH (19:52)
[2017-04-04] MEDS: SIMVASTATIN 80 MG TAB PO SCH (19:53)
[2017-04-04] MEDS: GUAIFENESIN 600 MG TABCR PO SCH (19:53)
[2017-04-04] MEDS: ENOXAPARIN 40 MG/0.4 ML SYR SC SCH (19:54)
[2017-04-04 20:00] VITALS: O2SAT 94
[2017-04-04] MEDS: ALBUT/IPRATROP 3MG/0.5MG NEB 3 ML VIAL INH SCH (20:00)
[2017-04-04] MEDS ORDERED: COUGH DROP (SUGAR FREE) LOZ 24 LOZ/1 BOX ONE (20:21)
[2017-04-04] MEDS: METHYLPREDNISOLONE IV 40 MG in SYRINGE 0 ML IV SCH (20:37)
[2017-04-04] MEDS ORDERED: INSULIN GLARGINE SOLOSTAR 100 UNITS/ML 3 ML PEN SC SCH (21:00)
[2017-04-04] MEDS ORDERED: INSULIN ASPART 100 UNITS/ML 3 ML PEN SC SCH (21:00)
[2017-04-04] MEDS ORDERED: INSULIN IV INFUSION PROTOCOL SCH (22:54)
[2017-04-04] MEDS ORDERED: INSULIN PROTOCOL GOAL RANGE ONE (23:00)
[2017-04-04] MEDS ORDERED: MODERATE STRESS LEVEL ONE (23:00)
[2017-04-04] MEDS ORDERED: POTASSIUM CHLORIDE 10 MEQ TABCR PO ONE (23:15)
[2017-04-04] MEDS ORDERED: INSULIN HUMAN REGULAR IV BOLUS 2 UNIT in SYRINGE 0 ML IV SCH (23:15)
[2017-04-04 23:29] VITALS: BP 116/52; PULSE 77; TEMP 36.8; O2SAT 97
[2017-04-04] MEDS: INSULIN REGULAR 250 UNITS in SODIUM CHLORIDE 0.9% 250ML 250 ML IV SCH (23:50)
[2017-04-05] VITALS (13 sets, daily range): BP systolic 113–131; BP diastolic 62–75; PULSE 64–86; TEMP 36.4–36.8; O2SAT 91–98
[2017-04-05] MEDS: METHYLPREDNISOLONE IV 40 MG in SYRINGE 0 ML IV SCH ×4 (02:36→20:10)
[2017-04-05] MEDS: LEVOTHYROXINE 75 MCG TAB PO SCH (06:20)
[2017-04-05] MEDS: ALBUT/IPRATROP 3MG/0.5MG NEB 3 ML VIAL INH SCH ×4 (07:09→19:15)
[2017-04-05 07:25] LABS: CALCIUM 8.9 mg/dl (8.5-10.1); CREATININE 0.84 mg/dl (0.60-1.40); MAGNESIUM 2.1 mg/dl (1.8-2.4); POTASSIUM 4.2 mmol/L (3.5-5.1)
[2017-04-05] MEDS ORDERED: NURSING VERBAL MED ORDER ONE ×2 (07:45→14:15)
[2017-04-05] MEDS: INSULIN ASPART 100 UNITS/ML 3 ML PEN SC SCH ×4 (07:47→21:24)
[2017-04-05] MEDS: INSULIN REGULAR 250 UNITS in SODIUM CHLORIDE 0.9% 250ML 250 ML IV SCH (07:47)
[2017-04-05] MEDS: DOXYCYCLINE HYCLATE 100 MG CAP PO SCH ×2 (07:48→20:53)
[2017-04-05] MEDS: TRIAMCINOLONE ACET NASAL SPRAY 10.8ML BTL NAE SCH (07:49)
[2017-04-05] MEDS: ASPIRIN 81 MG ECTAB PO SCH (07:52)
[2017-04-05] MEDS: CHOLECALCIFEROL 1000 INTER.UNIT TAB PO SCH (07:52)
[2017-04-05] MEDS: CEROVITE ADV FORMULA TAB PO SCH (07:52)
[2017-04-05] MEDS: PANTOprazole SOD 40 MG TAB PO SCH (07:52)
[2017-04-05] MEDS: GUAIFENESIN 600 MG TABCR PO SCH ×2 (07:52→20:53)
[2017-04-05] MEDS: ESCITALOPRAM OXALATE 10 MG TAB PO SCH (07:52)
[2017-04-05] MEDS: MAGNESIUM OXIDE 400 MG TAB PO SCH (07:53)
[2017-04-05] MEDS: CYANOCOBALAMIN 500 MCG TAB (VIT B-12) PO SCH (07:53)
[2017-04-05] MEDS ORDERED: PHARMACY GLYCEMIC MGMT CONSULT PRN (14:40)
[2017-04-05] MEDS ORDERED: INSULIN GLARGINE SOLOSTAR 100 UNITS/ML 3 ML PEN SC SCH (15:00)
--- NOTE | 2017-04-05 15:06 | Progress Note ---
Subjective Date of Service: Apr 05, 2017. Subjective Pt evaluation today including: conversation w/ patient, conversation w/ family , physical exam, chart review, lab review, review of studies, conversation w/ integration consultant, review of inpatient medication list Nurse report has been on insulin drip for hyperglycemia, blood glucose has been ranging in around 200 Patient still getting Solu-Medrol Patient has no complaining, reported remote history of smoking, denied chest pain, report is feeling better Problem List Medical Problems: (1) Acute GI bleeding Status: Acute (2) Anticoagulated Status: Acute (3) Bronchitis Status: Acute (4) Calculus of right kidney Status: Acute (5) Chest tightness Status: Acute (6) Hydronephrosis with urinary obstruction due to renal calculus Status: Acute (7) Renal colic Status: Acute (8) Right flank pain Status: Acute (9) Right flank pain Status: Acute (10) Symptomatic anemia Status: Acute (11) Ureterolithiasis Status: Acute Review of Systems Constitutional: + fatigue, No fever, No chills, No sweats, No weight loss, No weakness, No problem reported Eyes: No worsening of vision, No eye pain, No redness, No discharge, No diplopia ENT: No hearing loss, No unusual epistaxis, No nasal symptoms, No sore throat, No tinnitus, No dental problems, No trouble swallowing Respiratory: + cough, No sputum, No wheezing, No shortness of breath, No dyspnea on exertion, No dyspnea at rest, No hemoptysis Cardiac: No chest pain, No orthopnea, No PND, No edema, No claudication, No palpitations Abdomen: No pain, No nausea, No vomiting, No diarrhea, No constipation Musculoskeletal: No joint pain, No muscle pain, No swelling, No calf pain Male : No dysuria, No urinary frequency, No incontinence, No nocturia more than once/night, No slowing stream, No hematuria Neurologic: No memory loss, No paralysis, No weakness, No numbness/tingling, No vertigo, No balance problems Psychiatric: No depression symptoms, No anhedonism, No anxiety, No insomnia, No substance abuse Heme: No abnormal bleeding/bruising, No clotting problems, No swollen lymph nodes, No night sweats Endo: No fatigue, No excessive thirst, No excessive urination Skin: No rash, No itch, No new/changing skin lesions, No color change, No bleeding Objective Vital Signs Date Time Temp Pulse Resp B/P (MAP) Pulse Ox O2 Delivery O2 Flow Rate FiO2 04/05/17 14:36 73 20 93 Room Air 04/05/17 12:29 91 04/05/17 12:00 Room Air 04/05/17 11:24 86 16 94 Room Air 04/05/17 11:10 36.8 78 18 130/72 (91) 93 Room Air 04/05/17 08:00 Room Air 04/05/17 07:18 36.4 64 18 121/71 (88) 98 2.0 04/05/17 07:09 67 16 93 Nasal Cannula 2.0 04/05/17 04:00 Nasal Cannula 2.0 04/05/17 03:35 36.6 65 20 119/69 (86) 97 Nasal Cannula 2.0 04/05/17 00:00 Nasal Cannula 2.0 04/04/17 23:29 36.8 77 16 116/52 (73) 97 Nasal Cannula 04/04/17 20:00 94 Room Air 04/04/17 19:46 37.0 83 20 136/64 (88) 93 Room Air 04/04/17 18:14 36.5 92 17 149/71 (97) 94 Room Air 04/04/17 18:14 94 Room Air 04/04/17 17:30 95 18 142/53 95 Nasal Cannula 2.0 04/04/17 15:39 95 18 126/71 95 Nasal Cannula 2.0 Physical Exam General Appearance: WD/WN, no apparent distress, + thin, + pertinent finding ( frail, possible older than age) Eyes: normal inspection, PERRL, EOMI, sclerae normal ENT: normal ENT inspection, hearing grossly normal, pharynx normal Neck: supple, no adenopathy, thyroid normal, no JVD, no carotid bruits, trachea midline Respiratory/Chest: chest non-tender, normal breath sounds, no respiratory distress, no accessory muscle use, + decreased breath sounds, + wheezing Cardiovascular: regular rate, rhythm, no edema, no gallop, no JVD, no murmur Abdomen: normal bowel sounds, non tender, soft, no organomegaly, no pulsatile mass Extremities: normal range of motion, non-tender, normal inspection, no pedal edema, no calf tenderness, normal capillary refill, pelvis stable 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, no motor/sensory deficits, alert, normal mood/affect, oriented x 3 Skin: normal color, warm/dry, no rash Lymphatic: no adenopathy Laboratory Results Last 24 Hours Test 04/04/17 18:12 04/04/17 22:10 04/05/17 00:43 04/05/17 02:14 Bedside Glucose 562 mg/dl 391 mg/dl 255 mg/dl 276 mg/dl Test 04/05/17 03:33 04/05/17 04:34 04/05/17 05:31 04/05/17 05:45 Bedside Glucose 187 mg/dl 188 mg/dl 193 mg/dl Sodium Level 141 mmol/L Potassium Level 4.2 mmol/L Chloride Level 108 mmol/L Carbon Dioxide Level 26 mmol/L Anion Gap 7.0 mmol/L Blood Urea Nitrogen 19 mg/dl Creatinine 0.84 mg/dl Est Creatinine Clear Calc Drug Dose 78.3 ml/min Estimated GFR () 96.5 Estimated GFR (Non- 83.3 BUN/Creatinine Ratio 22.0 Random Glucose 177 mg/dl Calcium Level 8.9 mg/dl Magnesium Level 2.1 mg/dl Test 04/05/17 06:26 04/05/17 07:35 04/05/17 08:38 04/05/17 09:42 Bedside Glucose 204 mg/dl 170 mg/dl 290 mg/dl 330 mg/dl Test 04/05/17 10:41 04/05/17 11:41 04/05/17 12:40 Bedside Glucose 281 mg/dl 199 mg/dl 280 mg/dl Assessment and Plan 77yo ma admitted on 04/04/2017 with COPD exacerbation and possible acute/ chronic diastolic CHF. h/o COPD, T2DM, prior prostate cancer, and chronic diastolic CHF very likely COPD with exacerbation Was remote history of smoking, and physical exam with obvious wheezing in bilateral lower lung And history of COPD exacerbation Continue IV solumedrol 40mg q6h. Nebs q6h. add nebulizer every 2 hours as needed Continue Mucinex, pulmonary toilet, incentive spirometry. Send sputum culture if able. Recently received augmentin as an outpatient. Chest CT study was done because of elevated d-dimer, there was no PE, no pulmonary edema, no pneumonia Continue doxy for now by mouth only, for bronchitis possible acute/chronic diastolic CHF, upon admission he appears mildly volume overloaded based on his neck veins, peripheral edema, etc. Some of the peribronchial findings on CT could be pulmonary edema. Today's physical exam does not consistent any fluid overload, no more Lasix. Check daily weights; fluid/salt restrict. 3. T2DM - uncontrolled - Has been on insulin drip , changed to Lantus plus insulin sliding scale, pharmacy hyperglycemic consult Hold oral agents. 5. hypothyroidism - continue synthroid; TSH in 2017 was normal. 6. anemia - appears to have combination of Fe Deficiency anemia and he is also borderline B12 deficient. [facility] and is due later this week for such. Will also supplement oral B12. Recheck CBC in 48 hours for stability. Cause of Fe deficiency is unknown - had negative EGD/colonoscopy just a few weeks ago by Dr. Brooke. Prior celiac panel was also normal. DVT proph - lovenox 40mg daily. GI proph - PPI. hyperlipidemia - statin. h/o a. flutter - per records - place on telemetry as he is at risk of paroxysmal a. flutter due to increased stress, etc. left-sided kidney stone, 9mm - no symptoms at this time. Is already established with urology. The above condition is stable PT consult full code level 1 Continued [facility] stay due to: multiple IV medications needed Discharge planning: home
[2017-04-05] MEDS ORDERED: INSULIN GLARGINE SOLOSTAR 100 UNITS/ML 3 ML PEN SC ONE (15:30)
--- NOTE | 2017-04-05 15:42 | Pharmacy Progress Note ---
Glycemic Control Intl Consult Date of Service Apr 05, 2017. Scope Glycemic Pharmacist consulted by Dr Villatoro on 04/05/17 for glycemic control and to write orders per [facility] inpatient glycemic control protocol Objective Weight (Kilograms): 78.900 Accuchecks BSG (last 24hrs): Test 04/04/17 18:12 04/04/17 22:10 04/05/17 00:43 04/05/17 02:14 Bedside Glucose 562 mg/dl (70-99) 391 mg/dl (70-99) 255 mg/dl (70-99) 276 mg/dl (70-99) Test 04/05/17 03:33 04/05/17 04:34 04/05/17 05:31 04/05/17 05:45 Bedside Glucose 187 mg/dl (70-99) 188 mg/dl (70-99) 193 mg/dl (70-99) Random Glucose 177 mg/dl (70-99) Test 04/05/17 06:26 04/05/17 07:35 04/05/17 08:38 04/05/17 09:42 Bedside Glucose 204 mg/dl (70-99) 170 mg/dl (70-99) 290 mg/dl (70-99) 330 mg/dl (70-99) Test 04/05/17 10:41 04/05/17 11:41 04/05/17 12:40 04/05/17 13:41 Bedside Glucose 281 mg/dl (70-99) 199 mg/dl (70-99) 280 mg/dl (70-99) 206 mg/dl (70-99) Test 04/05/17 14:43 Bedside Glucose 206 mg/dl (70-99) Laboratory Data (last 24hrs) Test 04/05/17 05:45 Anion Gap 7.0 mmol/L BUN/Creatinine Ratio 22.0 Blood Urea Nitrogen 19 mg/dl Creatinine 0.84 mg/dl Potassium Level 4.2 mmol/L Sodium Level 141 mmol/L Recent Pertinent Medications Outpatient Anti-diabetic Regimen: * Amaryl 1 mg daily * Metformin 1 gm BID * *Also on chronic prednisone 10 mg daily The patient is currently receiving: * Basal insulin: Lantus 14 units x 1 * Insulin drip at 4.2 units/hr Risk Factors for Insulin Resistance: * Steroids: Solu-medrol 40 mg IV q6h * Infection: COPD exacerbation * Diet: low sodium/ type 2 diabetes - consuming ~60 gm CHO w/ each meal Assessment & Plan ASSESSMENT: * 77 y/o male with type 2 diabetes, admitted with a COPD exacerbation and placed on ATC steroids which caused a significant elevation in BSGs * An insulin drip was initiated last night and BSGs have improved but patient is requiring ~100 units/day with the steroids (compared to zero insulin and only orals as an outpatient) * Only 14 units of Lantus was given and the nurse was instructed to shut off the insulin drip. I spoke with her and told her to continue the drip for at least 6 hours after the Lantus dose, especially since the patient is requiring such high drip rates. * Will plan to have the basal be ~40% of total daily dose since steroids mainly affect postprandial BSGs. Will also provide overnight accuchecks in case I have not provided enough Lantus. * ADA & AACE recommend a goal blood sugar range 140-180 mg/dl for the majority of critically ill & non-critically ill patients. However, more stringent targets may be selected in individual cases. Will utilize more stringent goal of 120-160 mg/dl based on patient age & comorbidities. Additionally, tighter glycemic control is warranted to facilitate wound/infection healing. PLAN FOR INPATIENT GLYCEMIC CONTROL: * Give additional 25 units of Lantus now, then 20 units BID starting tomorrow * d/c insulin drip 6 hours after 1st Lantus dose, or sooner as directed by calculator * Novolog ACHS + 00,04 * Goal 120-160 * CF 15 mg/dL/unit (NOT to be given when on insulin drip) * CR 1 unit per 5 gm CHO * Of note, it will be prudent to de-escalate insulin doses as soon as steroids are reduced to prevent hypoglycemia DISCHARGE RECOMMENDATIONS: * A1c is excellent for patient's age * Patient can continue on Amaryl and metformin if he is to remain on just his chronic prednisone dose Thank you.
[2017-04-05] MEDS ORDERED: DC IV INSULIN INFUSION ONE (20:30)
[2017-04-05] MEDS: ENOXAPARIN 40 MG/0.4 ML SYR SC SCH (20:52)
[2017-04-05] MEDS: SIMVASTATIN 80 MG TAB PO SCH (20:53)
[2017-04-06] VITALS (10 sets, daily range): BP systolic 122–152; BP diastolic 63–82; PULSE 64–79; TEMP 36.4–36.8; O2SAT 92–96
[2017-04-06] MEDS: INSULIN ASPART 100 UNITS/ML 3 ML PEN SC SCH ×6 (00:08→21:00)
[2017-04-06] MEDS: METHYLPREDNISOLONE IV 40 MG in SYRINGE 0 ML IV SCH ×3 (02:06→16:45)
[2017-04-06 04:21] LABS: URINE APPEARANCE CLOUDY (CLEAR); URINE BILIRUBIN NEG (NEG); URINE COLOR YELLOW; URINE EPITHELIAL CELL AUTO >30 /lpf (0-5); URINE NITRITE NEG (NEG); URINE PH 5.5 (4.5-7.5); URINE SPECIFIC GRAVITY 1.034 (1.000-1.030); UROBILINOGEN NEG (NEG)
[2017-04-06 04:22] LABS: MANUAL MICROSCOPIC REQUIRED? NO; REVIEW REQ? YES
[2017-04-06 04:51] LABS: URINE MUCUS PRESENT (NONE PRSENT)
[2017-04-06] MEDS ORDERED: LIDOCAINE HCL 2% JELLY 30 ML TUBE EXT ONE (04:53)
--- NOTE | 2017-04-06 05:23 | Progress Note ---
Progress Note Date of Service Apr 06, 2017. Progress Note minimal u/o, post void > 300cc, RN attempted straight cath and unable to pass, will trial flomax for potential BPH
[2017-04-06] MEDS ORDERED: DiphenhydrAMINE HCL 50 MG/ML VIAL IV PRN (05:30)
[2017-04-06] MEDS ORDERED: TAMSULOSIN HCL 0.4 MG CAP PO ONE (05:45)
[2017-04-06] MEDS: LEVOTHYROXINE 75 MCG TAB PO SCH (06:19)
[2017-04-06 07:13] LABS: BUN/CREATININE RATIO 27.1 (10-20); CREATININE 0.93 mg/dl (0.60-1.40); MAGNESIUM 2.3 mg/dl (1.8-2.4); POTASSIUM 4.4 mmol/L (3.5-5.1)
[2017-04-06] MEDS: ALBUT/IPRATROP 3MG/0.5MG NEB 3 ML VIAL INH SCH ×4 (07:41→20:01)
[2017-04-06] MEDS: PANTOprazole SOD 40 MG TAB PO SCH (07:57)
[2017-04-06] MEDS: CEROVITE ADV FORMULA TAB PO SCH (07:57)
[2017-04-06] MEDS: GUAIFENESIN 600 MG TABCR PO SCH ×2 (07:57→19:40)
[2017-04-06] MEDS: ASPIRIN 81 MG ECTAB PO SCH (07:57)
[2017-04-06] MEDS: CYANOCOBALAMIN 500 MCG TAB (VIT B-12) PO SCH (07:57)
[2017-04-06] MEDS: ESCITALOPRAM OXALATE 10 MG TAB PO SCH (07:57)
[2017-04-06] MEDS: CHOLECALCIFEROL 1000 INTER.UNIT TAB PO SCH (07:58)
[2017-04-06] MEDS: DOXYCYCLINE HYCLATE 100 MG CAP PO SCH ×2 (07:58→19:40)
[2017-04-06] MEDS: MAGNESIUM OXIDE 400 MG TAB PO SCH (07:58)
[2017-04-06] MEDS: TRIAMCINOLONE ACET NASAL SPRAY 10.8ML BTL NAE SCH (08:06)
[2017-04-06] MEDS ORDERED: INSULIN GLARGINE SOLOSTAR 100 UNITS/ML 3 ML PEN SC SCH (09:00)
[2017-04-06] MEDS ORDERED: INSULIN GLARGINE SOLOSTAR 100 UNITS/ML 3 ML PEN SC ONE (09:00)
--- NOTE | 2017-04-06 13:57 | Pharmacy Progress Note ---
Glycemic Control Progress Note Date of Service Apr 06, 2017. Scope Glycemic Pharmacist consulted for glycemic control to write orders per [facility] inpatient glycemic control protocol. Objective Accuchecks BSG (last 24hrs): Test 04/05/17 14:43 04/05/17 15:44 04/05/17 16:45 04/05/17 17:47 Bedside Glucose 206 mg/dl (70-99) 171 mg/dl (70-99) 194 mg/dl (70-99) 215 mg/dl (70-99) Test 04/05/17 18:40 04/05/17 19:37 04/05/17 21:19 04/06/17 00:06 Bedside Glucose 280 mg/dl (70-99) 254 mg/dl (70-99) 183 mg/dl (70-99) 271 mg/dl (70-99) Test 04/06/17 03:51 04/06/17 05:51 04/06/17 06:45 04/06/17 11:02 Bedside Glucose 210 mg/dl (70-99) 205 mg/dl (70-99) 273 mg/dl (70-99) Random Glucose 191 mg/dl (70-99) Recent Pertinent Medications The patient is currently receiving: * Basal insulin: Lantus 39 units yesterday and Lantus 30 units this morning. Yesterday, patient was receiving an insulin infusing with rates ranging from 4.2 units/hr to 6.9 units/hr when turned off * Correctional Insulin: Novolog Correction per scale ACHS Goal Range: Low 120 mg/dL - High 160 mg/dL Correction Factor: 15 mg/dL/unit * Prandial insulin: Per carb ratio of 1 unit per 5 grams CHO consumed Outpatient Anti-Diabetic Meds Amaryl 1 mg qAM + metformin 1000 mg PO BID Assessment & Plan ASSESSMENT: * See progress note from 04/05/2017 for more background info, in short: * Pt receiving SQ basal bolus insulin regimen for hyperglycemia secondary to baseline DM (outpatient regimen on hold),COPD exacerbation, and steroids ( received Solu-Medrol 40 mg IV q 6 x 2 days, today reduced to Solu-Medrol 40 mg IV q8 hours) * Patient is currently receiving an average of ? units of insulin per day * 39 units of basal insulin yesterday and already 30 units today * 23 units of prandial/correctional insulin yesterday and already 30 units today * BSGs ranging 183 - 273 mg/dl over the past 24hrs * Changes needed to insulin regimen: * AM Fasting BSG = 205 mg/dl. This is in slightly above goal range for patient based on inpatient targets and co-morbidities. Patient received a loading dose of 39 units of Lantus yesterday. Overnight, the patient received 12 extra units of Novolog so morning Lantus was increased by 10 units to 30 units. The patient is already receiving weight-based stress of 3 Lantus dosing. According to the fasting blood sugar this is not effective. * Post-prandial BSGs after the insulin drip was discontinued, have increased steadily. Morning fasting blood sugar was 205 mg/dL and this increased to 273 mg /dL with lunch. Correctional insulin is already tighter than weight-based stress of 3 and this does not appear to be effective. Steroids have been tapered down from every 6 hours to every 8 hours. Overnight accuchecks added to ensure adequate overnight coverage. * Total daily dose is currently unknown. Less than 24 hours of data is available with changing steroid dosing. * Additional notes / comments: The patient is currently receiving weight-based stress of 3 dosing for Lantus and even tighter control with Novolog. This is producing less than desirable blood sugars. After speaking with Dr Villatoro, he agreed that if the patient's blood sugars continue to rise, then it would be prudent to place the patient back on an insulin drip. This is out of concern for insulin stacking/continued Lantus presence whenever steroids are discontinued and also currently uncontrolled blood sugars. PLAN FOR INPATIENT GLYCEMIC CONTROL: * Continuing Lantus 20 units SQ BID * Continuing correction factor of 15 mg/dl/unit * Continuing carb ratio of 1 unit per 5 grams CHO consumed * Continuing goal range to Low 120 mg/dL - High 160 mg/dL RECOMMENDATIONS FOR DISCHARGE: * If patient discharged on home prednisone dose, it would be possible to return the patient to his home dose of insulin. * Please note that the plan above was derived based on current level of insulin resistance and hospital stress. These recommendations are appropriate for inpatient admission only. Plan of care upon discharge will need to be reassessed to avoid potential outpatient hypo/hyperglycemia. Thank you.
--- NOTE | 2017-04-06 16:10 | Progress Note ---
Subjective Date of Service: Apr 06, 2017. Subjective Pt evaluation today including: conversation w/ patient, conversation w/ family , physical exam, chart review, lab review, review of studies, review of inpatient medication list Sitting up in chair, no complaining, reported feeling much better, less cough and wheezing blood glucose getting better to Problem List Medical Problems: (1) Acute GI bleeding Status: Acute (2) Anticoagulated Status: Acute (3) Bronchitis Status: Acute (4) Calculus of right kidney Status: Acute (5) Chest tightness Status: Acute (6) Hydronephrosis with urinary obstruction due to renal calculus Status: Acute (7) Renal colic Status: Acute (8) Right flank pain Status: Acute (9) Right flank pain Status: Acute (10) Symptomatic anemia Status: Acute (11) Ureterolithiasis Status: Acute Review of Systems Constitutional: + weakness, + fatigue, No fever, No chills, No sweats, No weight loss, No problem reported Eyes: No worsening of vision, No eye pain, No redness, No discharge, No diplopia ENT: No hearing loss, No unusual epistaxis, No nasal symptoms, No sore throat, No tinnitus, No dental problems, No trouble swallowing Respiratory: + cough, No sputum, No wheezing, No shortness of breath, No dyspnea on exertion, No dyspnea at rest, No hemoptysis Cardiac: No chest pain, No orthopnea, No PND, No edema, No claudication, No palpitations Abdomen: No pain, No nausea, No vomiting, No diarrhea, No constipation Musculoskeletal: No joint pain, No muscle pain, No swelling, No calf pain Male : No dysuria, No urinary frequency, No incontinence, No nocturia more than once/night, No slowing stream, No hematuria Neurologic: No memory loss, No paralysis, No weakness, No numbness/tingling, No vertigo, No balance problems Psychiatric: No depression symptoms, No anhedonism, No anxiety, No insomnia, No substance abuse Heme: No abnormal bleeding/bruising, No clotting problems, No swollen lymph nodes, No night sweats Endo: No fatigue, No excessive thirst, No excessive urination Skin: No rash, No itch, No new/changing skin lesions, No color change, No bleeding Objective Vital Signs Date Time Temp Pulse Resp B/P (MAP) Pulse Ox O2 Delivery O2 Flow Rate FiO2 04/06/17 15:18 64 16 93 Room Air 04/06/17 12:00 Room Air 04/06/17 11:13 72 16 93 Room Air 04/06/17 10:51 36.5 65 18 128/69 (88) 92 Room Air 04/06/17 08:00 Room Air 04/06/17 07:42 69 16 93 Room Air 04/06/17 06:57 36.8 65 20 122/63 (82) 93 Room Air 04/06/17 04:00 Room Air 04/06/17 03:53 36.4 68 19 143/74 (97) 96 Room Air 04/05/17 23:59 Room Air 04/05/17 23:30 36.6 70 16 113/62 (79) 94 Room Air 04/05/17 20:00 94 Room Air 04/05/17 19:38 36.4 80 18 118/68 (85) 94 Room Air 04/05/17 19:15 75 16 95 Room Air 04/05/17 16:08 92 Room Air Physical Exam General Appearance: WD/WN, no apparent distress, + thin Eyes: normal inspection, PERRL, EOMI, sclerae normal ENT: normal ENT inspection, hearing grossly normal, pharynx normal Neck: supple, no adenopathy, thyroid normal, no JVD, no carotid bruits, trachea midline Respiratory/Chest: chest non-tender, normal breath sounds, no respiratory distress, no accessory muscle use, + decreased breath sounds Cardiovascular: regular rate, rhythm, no edema, no gallop, no JVD, no murmur Abdomen: normal bowel sounds, non tender, soft, no organomegaly, no pulsatile mass Extremities: normal range of motion, non-tender, normal inspection, no pedal edema, no calf tenderness, normal capillary refill, pelvis stable 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, no motor/sensory deficits, alert, normal mood/affect, oriented x 3 Skin: normal color, warm/dry, no rash Lymphatic: no adenopathy Laboratory Results Last 24 Hours Test 04/05/17 16:45 04/05/17 17:47 04/05/17 18:40 04/05/17 19:37 Bedside Glucose 194 mg/dl 215 mg/dl 280 mg/dl 254 mg/dl Test 04/05/17 21:19 04/06/17 00:06 04/06/17 03:51 04/06/17 05:51 Bedside Glucose 183 mg/dl 271 mg/dl 210 mg/dl Urine Color YELLOW Urine Appearance CLOUDY Urine pH 5.5 Urine Specific [place] 1.034 Urine Protein TRACE Urine Glucose (UA) 2+ Urine Ketones TRACE Urine Occult Blood 3+ Urine Nitrite NEG Urine Bilirubin NEG Urine Urobilinogen NEG Urine Leukocyte Esterase SMALL Urine WBC (Auto) >30 /hpf Urine RBC (Auto) >30 /hpf Urine Hyaline Casts (Auto) 5-10 /lpf Urine Epithelial Cells (Auto) >30 /lpf Urine Bacteria (Auto) NEG Urine Renal Epithelial Cells /lpf Urine Crystals CALCIUM OXALATE Urine Mucus PRESENT Sodium Level 139 mmol/L Potassium Level 4.4 mmol/L Chloride Level 108 mmol/L Carbon Dioxide Level 24 mmol/L Anion Gap 7.0 mmol/L Blood Urea Nitrogen 25 mg/dl Creatinine 0.93 mg/dl Est Creatinine Clear Calc Drug Dose 70.7 ml/min Estimated GFR () 90.2 Estimated GFR (Non- 77.8 BUN/Creatinine Ratio 27.1 Random Glucose 191 mg/dl Calcium Level 9.0 mg/dl Magnesium Level 2.3 mg/dl Prostate Specific Antigen 0.020 ng/ml Test 04/06/17 06:45 04/06/17 11:02 Bedside Glucose 205 mg/dl 273 mg/dl Assessment and Plan 77yo ma admitted on 04/04/2017 with COPD exacerbation and possible acute/ chronic diastolic CHF. h/o COPD, T2DM, prior prostate cancer, and chronic diastolic CHF likely COPD with exacerbation, stable and improving Was remote history of smoking, history of COPD exacerbation Taper IV solumedrol 40mg q6h. Nebs q6h to q8. add nebulizer every 2 hours as needed Continue Mucinex, pulmonary toilet, incentive spirometry. Recently received augmentin as an outpatient. Chest CT study was done because of elevated d-dimer, there was no PE, no pulmonary edema, no pneumonia Continue doxy for now by mouth only, for bronchitis possible acute/chronic diastolic CHF, upon admission he appears mildly volume overloaded based on his neck veins, peripheral edema, etc. Some of the peribronchial findings on CT could be pulmonary edema. Today's physical exam does not consistent any fluid overload, no more Lasix. Check daily weights; fluid/salt restrict. T2DM - uncontrolled - Had been on insulin drip , changed to Lantus plus insulin sliding scale, pharmacy hyperglycemic consult Hold oral agents. Blood glucose will getting better after taper down Solu- Medrol hypothyroidism - continue synthroid; TSH in 2017 was normal. anemia - appears to have combination of Fe Deficiency anemia and he is also borderline B12 deficient. Has been [facility] and is due later this week Possible just postpone the and transfusion and follow-up with oncologist Cause of Fe deficiency is unknown - had negative EGD/colonoscopy just a few weeks ago by Dr. Brooke. Prior celiac panel was also normal. Microscopic hematuria and possible UTI, hx of left-sided kidney stone, 9mm - no symptoms at this time. Is already established with urology. Patient is on doxycycline for the treatment possible COPD exacerbation for the treatment for 7 days, this need to be follow-up with PCP, urologist hyperlipidemia - statin. h/o a. flutter - per records - place on telemetry as he is at risk of paroxysmal a. flutter due to increased stress, etc. DVT proph - lovenox 40mg daily. GI proph - PPI. full code level 1 Continued [facility] stay due to: multiple IV medications needed Discharge planning: home
[2017-04-06] MEDS ORDERED: CEPHALEXIN MONOHYDRATE 250 MG CAP PO ONE (16:15)
[2017-04-06] MEDS ORDERED: CEPHALEXIN MONOHYDRATE 500 MG CAP PO SCH (17:00)
[2017-04-06] MEDS: TAMSULOSIN HCL 0.4 MG CAP PO SCH (19:40)
[2017-04-06] MEDS: SIMVASTATIN 80 MG TAB PO SCH (19:40)
[2017-04-06] MEDS: ENOXAPARIN 40 MG/0.4 ML SYR SC SCH (19:40)
[2017-04-06] MEDS ORDERED: INSULIN REGULAR IV ONE (21:00)
[2017-04-06] MEDS ORDERED: INSULIN IV INFUSION PROTOCOL STA (23:13)
[2017-04-06] MEDS ORDERED: INSULIN PROTOCOL GOAL RANGE ONE (23:15)
[2017-04-06] MEDS ORDERED: SEVERE STRESS LEVEL ONE (23:15)
[2017-04-07] VITALS (11 sets, daily range): BP systolic 122–147; BP diastolic 64–77; PULSE 62–82; TEMP 36.3–37; O2SAT 90–97
[2017-04-07] MEDS ORDERED: INSULIN HUMAN REGULAR IV BOLUS 3 UNIT in SYRINGE 0 ML IV SCH
[2017-04-07] MEDS ORDERED: INSULIN ASPART 100 UNITS/ML 3 ML PEN SC SCH
[2017-04-07] MEDS: INSULIN REGULAR 250 UNITS in SODIUM CHLORIDE 0.9% 250ML 250 ML IV SCH ×8 (00:11→23:32)
[2017-04-07] MEDS: METHYLPREDNISOLONE IV 40 MG in SYRINGE 0 ML IV SCH ×2 (00:12→07:43)
[2017-04-07 06:14] LABS: HEMATOCRIT 32.1 % (42-52); MEAN CELL VOLUME 85.6 fL (80-100); MEAN CORPUSCULAR HEMOGLOBIN 26.9 pg (25-34); MEAN CORPUSCULAR HGB CONC 31.5 g/dl (32-36); MEAN PLATELET VOLUME 10.3 fL (7.4-10.4); PLATELET COUNT 265 K/uL (130-400); RED BLOOD COUNT 3.75 M/uL (4.7-6.1); WHITE BLOOD COUNT 16.76 K/uL (4.8-10.8)
[2017-04-07] MEDS: LEVOTHYROXINE 75 MCG TAB PO SCH (06:27)
[2017-04-07 06:51] LABS: CREATININE 0.86 mg/dl (0.60-1.40)
[2017-04-07] MEDS: ALBUT/IPRATROP 3MG/0.5MG NEB 3 ML VIAL INH SCH ×3 (07:35→19:08)
[2017-04-07] MEDS: TRIAMCINOLONE ACET NASAL SPRAY 10.8ML BTL NAE SCH (07:43)
[2017-04-07] MEDS: MAGNESIUM OXIDE 400 MG TAB PO SCH (07:44)
[2017-04-07] MEDS: ESCITALOPRAM OXALATE 10 MG TAB PO SCH (07:44)
[2017-04-07] MEDS: ASPIRIN 81 MG ECTAB PO SCH (07:44)
[2017-04-07] MEDS: GUAIFENESIN 600 MG TABCR PO SCH ×2 (07:45→20:22)
[2017-04-07] MEDS: DOXYCYCLINE HYCLATE 100 MG CAP PO SCH ×2 (07:45→20:21)
[2017-04-07] MEDS: CYANOCOBALAMIN 500 MCG TAB (VIT B-12) PO SCH (07:45)
[2017-04-07] MEDS: CEROVITE ADV FORMULA TAB PO SCH (07:45)
[2017-04-07] MEDS: PANTOprazole SOD 40 MG TAB PO SCH (07:45)
[2017-04-07] MEDS: CHOLECALCIFEROL 1000 INTER.UNIT TAB PO SCH (07:46)
[2017-04-07] MEDS: INSULIN ASPART 100 UNITS/ML 3 ML PEN SC SCH ×4 (07:47→20:23)
--- NOTE | 2017-04-07 12:13 | Progress Note ---
Subjective Date of Service: Apr 07, 2017. Subjective Pt evaluation today including: conversation w/ patient, physical exam, chart review, lab review, review of studies, review of inpatient medication list Insulin drip was restarted last night because of poor controlled blood glucose This morning has been doing better Patient general condition is doing good, sitting up to chair, no complaining Report of sob is getting better Problem List Medical Problems: (1) Acute GI bleeding Status: Acute (2) Anticoagulated Status: Acute (3) Bronchitis Status: Acute (4) Calculus of right kidney Status: Acute (5) Chest tightness Status: Acute (6) Hydronephrosis with urinary obstruction due to renal calculus Status: Acute (7) Renal colic Status: Acute (8) Right flank pain Status: Acute (9) Right flank pain Status: Acute (10) Symptomatic anemia Status: Acute (11) Ureterolithiasis Status: Acute Review of Systems Constitutional: + fatigue, No fever, No chills, No sweats, No weight loss, No weakness, No problem reported Eyes: No worsening of vision, No eye pain, No redness, No discharge, No diplopia ENT: No hearing loss, No unusual epistaxis, No nasal symptoms, No sore throat, No tinnitus, No dental problems, No trouble swallowing Respiratory: + cough, + shortness of breath, No sputum, No wheezing, No dyspnea on exertion, No dyspnea at rest, No hemoptysis Cardiac: No chest pain, No orthopnea, No PND, No edema, No claudication, No palpitations Abdomen: No pain, No nausea, No vomiting, No diarrhea, No constipation Musculoskeletal: No joint pain, No muscle pain, No swelling, No calf pain Male : No dysuria, No urinary frequency, No incontinence, No nocturia more than once/night, No slowing stream, No hematuria Neurologic: No memory loss, No paralysis, No weakness, No numbness/tingling, No vertigo, No balance problems Psychiatric: No depression symptoms, No anhedonism, No anxiety, No insomnia, No substance abuse Heme: No abnormal bleeding/bruising, No clotting problems, No swollen lymph nodes, No night sweats Endo: No fatigue, No excessive thirst, No excessive urination Skin: No rash, No itch, No new/changing skin lesions, No color change, No bleeding Objective Vital Signs Date Time Temp Pulse Resp B/P (MAP) Pulse Ox O2 Delivery O2 Flow Rate FiO2 04/07/17 11:39 36.5 66 18 128/74 (92) 97 04/07/17 08:00 Room Air 04/07/17 07:37 37.0 69 18 130/77 (94) 95 04/07/17 07:35 78 16 95 Room Air 04/07/17 04:00 Room Air 04/07/17 03:53 36.3 62 18 147/77 (100) 97 Nasal Cannula 2.0 04/06/17 23:59 Room Air 04/06/17 23:49 36.4 74 20 152/81 (104) 94 Room Air 04/06/17 20:07 36.4 79 18 152/82 (105) 94 Room Air 04/06/17 20:01 78 16 93 Room Air 04/06/17 20:00 Room Air 04/06/17 16:00 Room Air 04/06/17 15:34 36.5 74 20 127/69 (88) 92 Room Air 04/06/17 15:18 64 16 93 Room Air Physical Exam General Appearance: WD/WN, no apparent distress, + thin, + pertinent finding ( conversational) Eyes: normal inspection, PERRL, EOMI, sclerae normal ENT: normal ENT inspection, hearing grossly normal, pharynx normal Neck: supple, no adenopathy, thyroid normal, no JVD, no carotid bruits, trachea midline Respiratory/Chest: chest non-tender, normal breath sounds, no respiratory distress, no accessory muscle use, + decreased breath sounds, + wheezing ( occasional) Cardiovascular: regular rate, rhythm, no edema, no gallop, no JVD, no murmur Abdomen: normal bowel sounds, non tender, soft, no organomegaly, no pulsatile mass Extremities: normal range of motion, non-tender, normal inspection, no pedal edema, no calf tenderness, normal capillary refill, pelvis stable Neurologic/Psychiatric: weight checker II-XII nml as tested, no motor/sensory deficits, alert, normal mood/affect, oriented x 3 Skin: normal color, warm/dry, no rash Lymphatic: no adenopathy Laboratory Results Last 24 Hours Test 04/06/17 16:29 04/06/17 20:30 04/06/17 21:57 04/06/17 23:32 Bedside Glucose 157 mg/dl 332 mg/dl 280 mg/dl 232 mg/dl Test 04/07/17 01:13 04/07/17 02:10 04/07/17 03:11 04/07/17 04:15 Bedside Glucose 190 mg/dl 168 mg/dl 139 mg/dl 141 mg/dl Test 04/07/17 05:10 04/07/17 05:52 04/07/17 06:15 04/07/17 07:17 Bedside Glucose 122 mg/dl 131 mg/dl 127 mg/dl White Blood Count 16.76 K/uL Red Blood Count 3.75 M/uL Hemoglobin 10.1 g/dL Hematocrit 32.1 % Mean Corpuscular Volume 85.6 fL Mean Corpuscular Hemoglobin 26.9 pg Mean Corpuscular Hemoglobin Concent 31.5 g/dl RDW Standard Deviation 70.2 fL RDW Coefficient of Variation 22.3 % Platelet Count 265 K/uL Mean Platelet Volume 10.3 fL Nucleated RBC Absolute Count (auto) 0.03 K/uL Nucleated Red Blood Cells % 0.2 % Creatinine 0.86 mg/dl Est Creatinine Clear Calc Drug Dose 76.5 ml/min Estimated GFR () 95.6 Estimated GFR (Non- 82.5 Test 04/07/17 08:18 04/07/17 08:19 04/07/17 09:19 04/07/17 10:15 Bedside Glucose 193 mg/dl 181 mg/dl 192 mg/dl 171 mg/dl Test 04/07/17 11:16 Bedside Glucose 160 mg/dl Assessment and Plan 77yo ma admitted on 04/04/2017 with COPD exacerbation and possible acute/ chronic diastolic CHF. h/o COPD, T2DM, prior prostate cancer, and chronic diastolic CHF COPD with exacerbation, stable and improving Was remote history of smoking, history of COPD exacerbation Continue Taper off IV solumedro, start oral prednisone 40 mg by mouth twice a day, Nebs q6h to q8., plus nebulizer every 2 hours as needed Continue Mucinex, pulmonary toilet, incentive spirometry. Recently received augmentin as an outpatient. Chest CT study was done because of elevated d-dimer, there was no PE, no pulmonary edema, no pneumonia Continue doxy for now by mouth only, for bronchitis possible acute/chronic diastolic CHF, upon admission he appears mildly volume overloaded based on his neck veins, peripheral edema, etc. Some of the peribronchial findings on CT could be pulmonary edema. physical exam continue does not consistent any fluid overload, no more Lasix. Check daily weights; fluid/salt restrict. T2DM - uncontrolled - is likely because of Solu-Medrol, Continue on insulin drip , Expecting to be better after taper off Solu-Medrol hypothyroidism - continue synthroid; TSH in 2017 was normal. anemia - appears to have combination of Fe Deficiency anemia and he is also borderline B12 deficient. [facility] and is due later this week Possible just postpone the and transfusion and follow-up with oncologist Cause of Fe deficiency is unknown - had negative EGD/colonoscopy just a few weeks ago by Dr. Brooke. Prior celiac panel was also normal. I advised patient to follow-up with PCP and specialist about this Microscopic hematuria and possible UTI, hx of left-sided kidney stone, 9mm - no symptoms at this time. Is already established with urology. Patient is on doxycycline for the treatment possible COPD exacerbation No new antibiotics except doxycycline, this need to be follow-up with PCP, urologist hyperlipidemia - statin. h/o a. flutter - per records - place on telemetry as he is at risk of paroxysmal a. flutter due to increased stress, etc. DVT proph - lovenox 40mg daily. GI proph - PPI. full code level 1 Transfer to med/surg possible discharge home tomorrow Continued [facility] stay due to: home environment unsafe for pt Discharge planning: home
--- NOTE | 2017-04-07 14:32 | Pharmacy Progress Note ---
Glycemic Control Progress Note Date of Service Apr 07, 2017. Scope Glycemic Pharmacist consulted for glycemic control to write orders per [facility] inpatient glycemic control protocol. Objective Accuchecks BSG (last 24hrs): Test 04/06/17 16:29 04/06/17 20:30 04/06/17 21:57 04/06/17 23:32 Bedside Glucose 157 mg/dl (70-99) 332 mg/dl (70-99) 280 mg/dl (70-99) 232 mg/dl (70-99) Test 04/07/17 01:13 04/07/17 02:10 04/07/17 03:11 04/07/17 04:15 Bedside Glucose 190 mg/dl (70-99) 168 mg/dl (70-99) 139 mg/dl (70-99) 141 mg/dl (70-99) Test 04/07/17 05:10 04/07/17 06:15 04/07/17 07:17 04/07/17 08:18 Bedside Glucose 122 mg/dl (70-99) 131 mg/dl (70-99) 127 mg/dl (70-99) 193 mg/dl (70-99) Test 04/07/17 08:19 04/07/17 09:19 04/07/17 10:15 04/07/17 11:16 Bedside Glucose 181 mg/dl (70-99) 192 mg/dl (70-99) 171 mg/dl (70-99) 160 mg/dl (70-99) Test 04/07/17 12:17 04/07/17 13:15 Bedside Glucose 216 mg/dl (70-99) 227 mg/dl (70-99) Recent Pertinent Medications The patient is currently receiving: * Insulin infusion with rates currently ranging around 2.1-2.4 units/hr Outpatient Anti-Diabetic Meds Amaryl 1 mg qPM and metformin 1000 mg PO BID Assessment & Plan ASSESSMENT: * See progress note from 04/05/2017 for more background info, in short: * Pt receiving SQ basal bolus insulin regimen for hyperglycemia secondary to baseline DM (outpatient regimen on hold),COPD exacerbation, and steroids ( received Solu-Medrol 40 mg IV q 6 x 2 days, today reduced to Solu-Medrol 40 mg IV q8 hours x 1 day now prednisone 40 mg q12) * Patient is currently receiving an average of 92 units of insulin per day * 50 units of basal * 42 units of bolus insulin including 7 units of IV insulin * BSGs ranging 127-332 mg/dl over the past 24hrs * Changes needed to insulin regimen: * AM Fasting BSG = 139 mg/dl. This is in slightly above goal range for patient based on inpatient targets and co-morbidities. The patient was re-started on the insulin infusion yesterday. The patient's blood sugars continued to rise throughout the day and was 332 mg/dL last night. Due to such high blood sugars the patient was placed back on the insulin infusion. Currently, the steroids have been decreased to oral prednisone. To create an easier transition, Lantus 15 units SQ BID will be started with insulin infusion. * Post-prandial BSGs are controlled with insulin infusion. * Total daily dose is currently unknown. Less than 24 hours of data available without insulin infusion. PLAN FOR INPATIENT GLYCEMIC CONTROL: * STARTING Lantus 15 units SQ BID * Continue insulin infusion currently while on Lantus subcutaneously, plan for transition to subcutaneous insulin tomorrow morning * Continuing goal range to Low 140 mg/dL - High 180 mg/dL RECOMMENDATIONS FOR DISCHARGE: * If patient discharged on home prednisone dose, it would be possible to return the patient to his home dose of insulin. * Please note that the plan above was derived based on current level of insulin resistance and hospital stress. These recommendations are appropriate for inpatient admission only. Plan of care upon discharge will need to be reassessed to avoid potential outpatient hypo/hyperglycemia. Thank you.
[2017-04-07] MEDS ORDERED: INSULIN GLARGINE SOLOSTAR 100 UNITS/ML 3 ML PEN SC SCH ×2 (18:00→20:00)
[2017-04-07] MEDS: SIMVASTATIN 80 MG TAB PO SCH (20:22)
[2017-04-07] MEDS: ENOXAPARIN 40 MG/0.4 ML SYR SC SCH (20:23)
[2017-04-07] MEDS: TAMSULOSIN HCL 0.4 MG CAP PO SCH (20:23)
[2017-04-08] VITALS (8 sets, daily range): BP systolic 127–150; BP diastolic 71–80; PULSE 64–80; TEMP 36.5–36.6; O2SAT 92–98
[2017-04-08] MEDS: INSULIN REGULAR 250 UNITS in SODIUM CHLORIDE 0.9% 250ML 250 ML IV SCH ×3 (01:15→10:20)
[2017-04-08] MEDS: LEVOTHYROXINE 75 MCG TAB PO SCH (06:19)
[2017-04-08] MEDS: ALBUT/IPRATROP 3MG/0.5MG NEB 3 ML VIAL INH SCH ×4 (07:39→19:01)
[2017-04-08] MEDS: ASPIRIN 81 MG ECTAB PO SCH (08:19)
[2017-04-08] MEDS: CYANOCOBALAMIN 500 MCG TAB (VIT B-12) PO SCH (08:19)
[2017-04-08] MEDS: CEROVITE ADV FORMULA TAB PO SCH (08:20)
[2017-04-08] MEDS: GUAIFENESIN 600 MG TABCR PO SCH ×2 (08:20→21:12)
[2017-04-08] MEDS: CHOLECALCIFEROL 1000 INTER.UNIT TAB PO SCH (08:20)
[2017-04-08] MEDS: PANTOprazole SOD 40 MG TAB PO SCH (08:20)
[2017-04-08] MEDS: ESCITALOPRAM OXALATE 10 MG TAB PO SCH (08:20)
[2017-04-08] MEDS: MAGNESIUM OXIDE 400 MG TAB PO SCH (08:21)
[2017-04-08] MEDS: DOXYCYCLINE HYCLATE 100 MG CAP PO SCH ×2 (08:21→21:12)
[2017-04-08] MEDS: INSULIN ASPART 100 UNITS/ML 3 ML PEN SC SCH ×4 (08:30→21:20)
[2017-04-08] MEDS: TRIAMCINOLONE ACET NASAL SPRAY 10.8ML BTL NAE SCH (08:31)
[2017-04-08] MEDS ORDERED: INSULIN GLARGINE SOLOSTAR 100 UNITS/ML 3 ML PEN SC ONE (09:00)
--- NOTE | 2017-04-08 12:35 | Progress Note ---
Subjective Date of Service: Apr 08, 2017. Subjective Pt evaluation today including: conversation w/ patient, conversation w/ family , physical exam, chart review, lab review, review of studies, review of inpatient medication list Voiding: no voiding problems Difficulty breathing is continue to be better and resolved, occasional cough, no wheezing, however blood glucose still significantly high, need insulin drip to control hyperglycemia Problem List Medical Problems: (1) Acute GI bleeding Status: Acute (2) Anticoagulated Status: Acute (3) Bronchitis Status: Acute (4) Calculus of right kidney Status: Acute (5) Chest tightness Status: Acute (6) Hydronephrosis with urinary obstruction due to renal calculus Status: Acute (7) Renal colic Status: Acute (8) Right flank pain Status: Acute (9) Right flank pain Status: Acute (10) Symptomatic anemia Status: Acute (11) Ureterolithiasis Status: Acute Review of Systems Constitutional: No fever, No chills, No sweats, No weight loss, No weakness, No fatigue, No problem reported Eyes: No worsening of vision, No eye pain, No redness, No discharge, No diplopia ENT: No hearing loss, No unusual epistaxis, No nasal symptoms, No sore throat, No tinnitus, No dental problems, No trouble swallowing Respiratory: No cough, No sputum, No wheezing, No shortness of breath, No dyspnea on exertion, No dyspnea at rest, No hemoptysis Cardiac: No chest pain, No orthopnea, No PND, No edema, No claudication, No palpitations Abdomen: No pain, No nausea, No vomiting, No diarrhea, No constipation Musculoskeletal: No joint pain, No muscle pain, No swelling, No calf pain Male : No dysuria, No urinary frequency, No incontinence, No nocturia more than once/night, No slowing stream, No hematuria Neurologic: No memory loss, No paralysis, No weakness, No numbness/tingling, No vertigo, No balance problems Psychiatric: No depression symptoms, No anhedonism, No anxiety, No insomnia, No substance abuse Heme: No abnormal bleeding/bruising, No clotting problems, No swollen lymph nodes, No night sweats Endo: No fatigue, No excessive thirst, No excessive urination Skin: No rash, No itch, No new/changing skin lesions, No color change, No bleeding Objective Vital Signs Date Time Temp Pulse Resp B/P (MAP) Pulse Ox O2 Delivery O2 Flow Rate FiO2 04/08/17 11:22 74 16 92 Room Air 04/08/17 08:00 Room Air 04/08/17 07:39 69 16 92 Room Air 04/08/17 07:17 36.5 73 18 127/73 (91) 96 Room Air 04/08/17 00:00 Room Air 04/07/17 23:26 36.7 74 20 122/64 (83) 95 Room Air 04/07/17 20:00 Room Air 04/07/17 19:09 75 18 91 Room Air 04/07/17 15:58 64 18 90 Room Air 04/07/17 15:18 36.4 67 18 131/72 (91) 94 Room Air 04/07/17 13:17 36.7 82 18 124/70 (88) 93 Room Air 04/07/17 13:15 Room Air 04/07/17 12:59 36.5 66 18 97 2.0 Physical Exam General Appearance: WD/WN, no apparent distress, + thin Eyes: normal inspection, PERRL, EOMI, sclerae normal ENT: normal ENT inspection, hearing grossly normal, pharynx normal Neck: supple, no adenopathy, thyroid normal, no JVD, no carotid bruits, trachea midline Respiratory/Chest: chest non-tender, lungs clear, normal breath sounds, no respiratory distress, no accessory muscle use, + decreased breath sounds, + wheezing (occasional in nish lower lungs) Cardiovascular: regular rate, rhythm, no gallop, no JVD, no murmur, + pertinent finding (1+ ankle edema bilateral lower extremity) Abdomen: normal bowel sounds, non tender, soft, no organomegaly, no pulsatile mass Extremities: normal range of motion, non-tender, normal inspection, no pedal edema, no calf tenderness, normal capillary refill, pelvis stable Neurologic/Psychiatric: wire stitcher II-XII nml as tested, no motor/sensory deficits, alert, normal mood/affect, oriented x 3 Skin: normal color, warm/dry, no rash Lymphatic: no adenopathy Laboratory Results Last 24 Hours Test 04/07/17 13:15 04/07/17 14:14 04/07/17 15:27 04/07/17 16:21 Bedside Glucose 227 mg/dl 244 mg/dl 222 mg/dl 230 mg/dl Test 04/07/17 17:18 04/07/17 18:23 04/07/17 19:22 04/07/17 20:19 Bedside Glucose 215 mg/dl 220 mg/dl 214 mg/dl 192 mg/dl Test 04/07/17 21:24 04/07/17 22:21 04/07/17 23:27 04/08/17 00:25 Bedside Glucose 178 mg/dl 141 mg/dl 120 mg/dl 93 mg/dl Test 04/08/17 00:58 04/08/17 01:12 04/08/17 02:11 04/08/17 03:14 Bedside Glucose 131 mg/dl 148 mg/dl 145 mg/dl 138 mg/dl Test 04/08/17 04:11 04/08/17 05:12 04/08/17 06:16 04/08/17 07:49 Bedside Glucose 150 mg/dl 141 mg/dl 146 mg/dl 146 mg/dl Test 04/08/17 10:12 04/08/17 11:14 04/08/17 12:09 04/08/17 12:12 Bedside Glucose 199 mg/dl 198 mg/dl 171 mg/dl Assessment and Plan 77yo ma admitted on 04/04/2017 with COPD exacerbation and possible acute/ chronic diastolic CHF, developed hyperglycemia from the use of steroid which required insulin drip h/o COPD, T2DM, prior prostate cancer, and chronic diastolic CHF COPD with exacerbation, stable and improving Was remote history of smoking, history of COPD exacerbation Continue Taper off IV solumedro, 2 days ago, has been on oral prednisone 40 mg by mouth twice a day, will taper to 20 mg by mouth twice a day today Nebs q6h to q8., plus nebulizer every 2 hours as needed Continue Mucinex, pulmonary toilet, incentive spirometry. Recently received augmentin as an outpatient. Chest CT study was done because of elevated d-dimer, there was no PE, no pulmonary edema, no pneumonia Continue doxy for now by mouth only, for bronchitis, today is 4 out of 7 days possible acute/chronic diastolic CHF, upon admission he appears mildly volume overloaded based on his neck veins, peripheral edema, etc. Some of the peribronchial findings on CT could be pulmonary edema. physical exam continue does not consistent any fluid overload, Check daily weights; fluid/salt restrict, fluid restrictions getting more important patient currently has 1+ pitting edema in the lower extremities T2DM - last A1c was 7.4 in September 2016 Now has hyperglycemia need insulin drip Hyperglycemia still poor controlled - is likely because of Solu-Medrol/ prednisone, Continue on insulin drip , Expecting to be better after taper off Solu-Medrol, and taper down prednisone Patient on metformin and glipizide at home, I restarted, and the same time check HbA1c, please follow-up his previous HbA1c was 7.4, patient should be in very good chance to controlled diabetic by using oral agents, probably does not need insulin upon discharge the near future hypothyroidism - continue synthroid; TSH in 2017 was normal. anemia - appears to have combination of Fe Deficiency anemia and he is also borderline B12 deficient. [facility] and is due later this week Possible just postpone the and transfusion and follow-up with oncologist Cause of Fe deficiency is unknown - had negative EGD/colonoscopy just a few weeks ago by Dr. Brooke. Prior celiac panel was also normal. I advised patient to follow-up with PCP and specialist about this Microscopic hematuria and possible UTI, hx of left-sided kidney stone, 9mm - no symptoms at this time. Is already established with urology. Patient is on doxycycline for the treatment possible COPD exacerbation No new antibiotics except doxycycline, this need to be follow-up with PCP, urologist hyperlipidemia - statin. h/o a. flutter - per records - place on telemetry as he is at risk of paroxysmal a. flutter due to increased stress, etc. DVT proph - lovenox 40mg daily. GI proph - PPI. full code level 1 possible discharge home tomorrow Continued [facility] stay due to: home environment unsafe for pt Discharge planning: home
--- NOTE | 2017-04-08 14:33 | Pharmacy Progress Note ---
Glycemic Control Progress Note Date of Service Apr 08, 2017. Scope Glycemic Pharmacist consulted for glycemic control to write orders per [facility] inpatient glycemic control protocol. Objective Accuchecks BSG (last 24hrs): Test 04/07/17 15:27 04/07/17 16:21 04/07/17 17:18 04/07/17 18:23 Bedside Glucose 222 mg/dl (70-99) 230 mg/dl (70-99) 215 mg/dl (70-99) 220 mg/dl (70-99) Test 04/07/17 19:22 04/07/17 20:19 04/07/17 21:24 04/07/17 22:21 Bedside Glucose 214 mg/dl (70-99) 192 mg/dl (70-99) 178 mg/dl (70-99) 141 mg/dl (70-99) Test 04/07/17 23:27 04/08/17 00:25 04/08/17 00:58 04/08/17 01:12 Bedside Glucose 120 mg/dl (70-99) 93 mg/dl (70-99) 131 mg/dl (70-99) 148 mg/dl (70-99) Test 04/08/17 02:11 04/08/17 03:14 04/08/17 04:11 04/08/17 05:12 Bedside Glucose 145 mg/dl (70-99) 138 mg/dl (70-99) 150 mg/dl (70-99) 141 mg/dl (70-99) Test 04/08/17 06:16 04/08/17 07:49 04/08/17 10:12 04/08/17 11:14 Bedside Glucose 146 mg/dl (70-99) 146 mg/dl (70-99) 199 mg/dl (70-99) 198 mg/dl (70-99) Test 04/08/17 12:09 Bedside Glucose 171 mg/dl (70-99) HbA1c: Test 04/08/17 12:12 Recent Pertinent Medications The patient is currently receiving: * Insulin infusion with rates currently ranging around 1.6-1.9 units/hr * Lantus 15 units last night and then 25 units this morning Outpatient Anti-Diabetic Meds Amaryl 1 mg qAM and metformin 1 gm PO BID Assessment & Plan ASSESSMENT: * See progress note from 04/05/2017 for more background info, in short: * Pt receiving SQ basal bolus insulin regimen for hyperglycemia secondary to baseline DM (outpatient regimen on hold),COPD exacerbation, and steroids ( received 4 days of IV steroids, now currently on prednisone 20 mg PO q12 hours) * Patient is currently receiving an average of ?? units of insulin per day * 15 units of basal yesterday and 25 units today * 24 units of bolus insulin * BSGs ranging 93-199 mg/dl over the past 24hrs * Changes needed to insulin regimen: * AM Fasting BSG = 146 mg/dl. This is within goal range for patient based on inpatient targets and co-morbidities. The patient was re-started on the insulin infusion two days ago. Since the patient was transitioned to oral steroids yesterday, the patient was prepped for transition with Lantus 15 units SQ yesterday. Patient given additional 25 units this morning for insulin infusion discontinuation. Sliding scale of Lantus ordered for this evening as steroids have been changed. * Post-prandial BSGs cannot be evaluated as insulin infusion discontinued today. * Total daily dose is currently unknown. Less than 24 hours of data available without insulin infusion. PLAN FOR INPATIENT GLYCEMIC CONTROL: * STARTING Lantus 10-15 units SQ BID (Lantus 10 units if blood sugar less than 140 mg/dL and Lantus 15 units if blood sugar 140 mg/dL or greater) * Novolog correctional insulin ACHS * Correction factor of 20 mg/dL/unit * Carbohydrate ratio of 1 unit for every 7 grams of carbohydrates consumed * Tighten goal range to Low 110 mg/dL - High 140 mg/dL RECOMMENDATIONS FOR DISCHARGE: * If patient discharged on home prednisone dose, it would be possible to return the patient to his home dose of insulin. Thank you.
[2017-04-08] MEDS: METFORMIN HCL 500 MG TAB PO SCH (17:34)
[2017-04-08] MEDS: SIMVASTATIN 80 MG TAB PO SCH (21:11)
[2017-04-08] MEDS: TAMSULOSIN HCL 0.4 MG CAP PO SCH (21:12)
[2017-04-08] MEDS: ENOXAPARIN 40 MG/0.4 ML SYR SC SCH (21:14)
[2017-04-08] MEDS: INSULIN GLARGINE SOLOSTAR 100 UNITS/ML 3 ML PEN SC SCH (21:19)
[2017-04-09] MEDS: INSULIN ASPART 100 UNITS/ML 3 ML PEN SC SCH ×3 (03:44→08:40)
[2017-04-09] MEDS: LEVOTHYROXINE 75 MCG TAB PO SCH (05:59)
[2017-04-09 07:09] VITALS: PULSE 74; O2SAT 96
[2017-04-09] MEDS: ALBUT/IPRATROP 3MG/0.5MG NEB 3 ML VIAL INH SCH ×2 (07:09→11:23)
[2017-04-09 07:18] VITALS: BP 123/71; PULSE 72; TEMP 36.5; O2SAT 97
[2017-04-09 07:28] LABS: ESTIMATED AVERAGE GLUCOSE 166 mg/dl; HA1C FLAG Normal (Normal)
[2017-04-09] MEDS ORDERED: NON-FORMULARY MEDICATION (Glimepiride 1 MG) PO SCH (08:00)
[2017-04-09] MEDS: ESCITALOPRAM OXALATE 10 MG TAB PO SCH (08:16)
[2017-04-09] MEDS: CEROVITE ADV FORMULA TAB PO SCH (08:16)
[2017-04-09] MEDS: CYANOCOBALAMIN 500 MCG TAB (VIT B-12) PO SCH (08:19)
[2017-04-09] MEDS: DOXYCYCLINE HYCLATE 100 MG CAP PO SCH (08:19)
[2017-04-09] MEDS: ASPIRIN 81 MG ECTAB PO SCH (08:19)
[2017-04-09] MEDS: GUAIFENESIN 600 MG TABCR PO SCH (08:19)
[2017-04-09] MEDS: PANTOprazole SOD 40 MG TAB PO SCH (08:19)
[2017-04-09] MEDS: CHOLECALCIFEROL 1000 INTER.UNIT TAB PO SCH (08:20)
[2017-04-09] MEDS: TRIAMCINOLONE ACET NASAL SPRAY 10.8ML BTL NAE SCH (08:20)
[2017-04-09] MEDS: MAGNESIUM OXIDE 400 MG TAB PO SCH (08:20)
[2017-04-09] MEDS: METFORMIN HCL 500 MG TAB PO SCH (08:20)
[2017-04-09 08:30] VITALS: O2SAT 97
[2017-04-09] MEDS: INSULIN GLARGINE SOLOSTAR 100 UNITS/ML 3 ML PEN SC SCH (08:41)
--- NOTE | 2017-04-09 08:54 | Hospitalist Progress Note ---
Hospitalist Progress Note Date of Service Apr 09, 2017. Objective Vital Signs Date Time Temp Pulse Resp B/P (MAP) Pulse Ox O2 Delivery O2 Flow Rate FiO2 04/09/17 07:18 36.5 72 18 123/71 (88) 97 Room Air 04/09/17 07:09 74 18 96 Room Air 04/08/17 23:50 36.6 64 20 150/80 (103) 98 Room Air 04/08/17 20:00 97 Room Air 2.0 04/08/17 19:01 68 18 97 Room Air 04/08/17 16:00 Room Air 04/08/17 15:24 36.5 80 18 138/71 (93) 96 Room Air 04/08/17 14:52 75 16 95 Room Air 04/08/17 11:22 74 16 92 Room Air Laboratory Results Last 24 Hours Test 04/08/17 10:12 04/08/17 11:14 04/08/17 12:09 04/08/17 12:12 Bedside Glucose 199 mg/dl 198 mg/dl 171 mg/dl Estimated Average Glucose 166 mg/dl Hemoglobin A1c 7.4 % Test 04/08/17 17:02 04/08/17 20:43 04/09/17 00:37 04/09/17 03:42 Bedside Glucose 235 mg/dl 192 mg/dl 97 mg/dl 135 mg/dl Test 04/09/17 07:19 Bedside Glucose 175 mg/dl Assessment and Plan 77yo ma admitted on 04/04/2017 with PMHx of COPD, DM II, hx of prostate cx, chronic diastolic CHF admitted with COPD exacerbation and possible acute/ chronic diastolic CHF, developed hyperglycemia from the use of steroid which required insulin drip COPD with exacerbation, stable and improving - Has been tapered from IV solumedrol to oral prednisone, Now down to prednisone 20 mg daily, continue taper - Continue supportive care with duonebs, O2, mucinex, flutter, incentive spirometry - On doxycycline PO for possible bronchitis day #5, continue for 7 day course. - Chest CTA was done because of elevated d-dimer, there was no PE, no pulmonary edema, no pneumonia Possible acute/chronic diastolic CHF - upon admission he appears mildly volume overloaded based on his neck veins, peripheral edema, etc. - Some of the peribronchial findings on CT could be pulmonary edema. - Appears euvolemic - Continue daily weights; fluid/salt restrict, strict I/Os T2DM - Hyperglycemia developed with steriods, required an insulin gtt, now transitioned off insulin gtt and on Lantus BID along with ISS. - Likely will not need insulin at time of d/c - Restarted on metformin 1000 mg BID, glimiperide cx by pharmacy as this is nonformulary, can resume upon discharge. - Hgb A1CX = 7.4 on 04/08 Hypothyroidism - continue synthroid 7 5mcg daily Anemia - appears to have combination of Fe Deficiency anemia and he is also borderline B12 deficient. - [facility] and is due later this week - Possible just postpone the and transfusion and follow-up with oncologist - Cause of Fe deficiency is unknown - had negative EGD/colonoscopy just a few weeks ago by Dr. Brooke. - Prior celiac panel was also normal. - Advised patient to follow-up with PCP and specialist about this Microscopic hematuria and possible UTI - hx of left-sided kidney stone, 9mm - no symptoms at this time. Is already established with urology. - Patient is on doxycycline for the treatment possible COPD exacerbation - No new antibiotics except doxycycline, this need to be follow-up with PCP, urologist Hyperlipidemia - cont statin therapy H/o a. flutter - per records - at time of admit was placed on telemetry as he is at risk of paroxysmal a. flutter due to increased stress, etc. - has been transferred off tele DVT proph - lovenox 40mg daily CODE STATUS: Full code level 1 Disposition: From home, lives with
--- NOTE | 2017-04-09 10:22 | Pharmacy Progress Note ---
Glycemic Control Progress Note Date of Service Apr 09, 2017. Scope Glycemic Pharmacist consulted for glycemic control to write orders per [facility] inpatient glycemic control protocol. Objective Accuchecks BSG (last 24hrs): Test 04/08/17 11:14 04/08/17 12:09 04/08/17 17:02 04/08/17 20:43 Bedside Glucose 198 mg/dl (70-99) 171 mg/dl (70-99) 235 mg/dl (70-99) 192 mg/dl (70-99) Test 04/09/17 00:37 04/09/17 03:42 04/09/17 07:19 Bedside Glucose 97 mg/dl (70-99) 135 mg/dl (70-99) 175 mg/dl (70-99) HbA1c: Test 04/08/17 12:12 Hemoglobin A1c 7.4 % (4.5-5.6) H Recent Pertinent Medications The patient is currently receiving: * Basal insulin: Lantus 15 units every 12 hours * Correctional Insulin: Novolog Correction per scale ACHS Goal Range: Low 110 mg/dL - High 140 mg/dL Correction Factor: 20 mg/dL/unit * Prandial insulin: Per carb ratio of 1 unit per 7 grams CHO consumed * Oral Agents: Metformin 1000 mg PO BIDM Outpatient Anti-Diabetic Meds Oral Agents Assessment & Plan ASSESSMENT: * See progress note from 04/05/17 for more background info, in short: * Pt receiving SQ basal bolus insulin regimen for hyperglycemia secondary to baseline DM (outpatient regimen on hold),stress/infection and steroids * Patient transitioned off insulin drip yesterday afternoon and BSGs have been relatively stable since * Fasting BSG this AM 175 mg/dL * Too early to tell if Lantus will need titrated further as this picture is complicated with a change from IV steroids to Prednisone PO today * Plan will be to continue current regimen and titrate basal/bolus insulin regimen based on BSG trend PLAN FOR INPATIENT GLYCEMIC CONTROL: * Oral Agents * Continue to hold outpatient oral diabetes medications. * Basal insulin * Lantus 15 units SQ BID * May continue per BSG trend versus scheduled dose * Bolus insulin * NovoLog per scale ACHS or Q6hrs while NPO * Goal Range: Low 110 mg/dL - High 140 mg/dL * Correction Factor: 20 mg/dL/unit * Nutritional / Prandial insulin per carb ratio of 1 unit per 7 grams CHO consumed RECOMMENDATIONS FOR DISCHARGE: * Continue home regimen unless steroids are tapered as outpatient * Please note that the plan above was derived based on current level of insulin resistance and hospital stress. These recommendations are appropriate for inpatient admission only. Plan of care upon discharge will need to be reassessed to avoid potential outpatient hypo/hyperglycemia. Thank you.
[2017-04-09] MEDS ORDERED: FLM4 PO (10:54)
[2017-04-09] MEDS ORDERED: PRED-301 PO (10:54)
[2017-04-09] MEDS ORDERED: DXY100 PO (10:54)
[2017-04-09] MEDS ORDERED: MGNO400 PO (10:54)
[2017-04-09] MEDS ORDERED: PRD20 PO (10:54)
[2017-04-09] MEDS ORDERED: GFNSR600 PO (10:54)
--- NOTE | 2017-04-09 11:05 | Discharge Instructions ---
Discharge Instructions Date of Service Apr 09, 2017. Admission Reason for Admission: Acute On Chronic Diastolic Heart Failure, Discharge Discharge Diagnosis / Problem: Acute on chronic CHF exacerbation, COPD exacerbation Discharge Goals Goal(s): Decrease discomfort, Improve function, Increase independence, Improve disease control Activity Recommendations Activity Limitations: resume your previous activity Lifting Limitations: no more than 25 pounds, gradually increase as tolerated Exercise/Sports Limitations: rest today, gradually increase as tolerated May Resume Sexual Activity: when tolerated Shower/Bathe: no limitations Driving or Machine Use: resume 1 day after discharge . Instructions / Follow-Up Instructions / Follow-Up You were admitted to [facility] with Acute CHF exacerbation and an acute COPD exacerbation. During your stay here you were treated with supportive care; oxygen, antibiotics , and intravenous steriods which have been tapered down to an oral steroid. Medications: - Take doxycycline x 3 more days, with the first dose tonight. This will complete a 7 day course to cover for infectious bronchitis - Continue taking Prednisone taper as follows for COPD exacerbation You have been given two prescriptions for prednisone - take the 20 mg tablets first, and then follow with the 5 mg tablets Take 20 mg twice daily x 5 more days (until 04/14) Then take 20 mg daily x 7 days ( until 04/20) Then take 15 mg daily (This is three (3) 5 mg tablets) x 7 days (until 04/28) Then take 10 mg daily ( This is two 5 mg tablets) x 5 days (until 05/04) Then take 7.5 mg daily thereafter as prescribed by Pulmonary medicine. - Continue taking mucinex x 3 more days Continue to use supplemental O2 as prescribed and CPAP at night. Specific CHF Instructions Call your Primary Care doctor if any of the following symptoms or problems start or get worse: * Shortness of breath or difficulty breathing * Wake up at night short of breath * Chest pain * Cough * Swelling of your hands, feet, or legs * More fatigued or tired with your normal activity * Palpitations - sudden fast heart beats WEIGHT * Weigh yourself every morning after using the bathroom. * Use the same scale. * Wear the same amount of clothing. * Write your weight down on a chart. * Call your Primary Care doctor if you gain more than 2-3 pounds in 1-2 days. Or if you gain more than 5 lbs in 1 week. MEDICATIONS * Use this discharge instruction sheet for medication instructions. * Take your medications at the time your doctor ordered. * Do not skip a dose of your medicines. * If you miss a dose of medicine, take it as soon as possible, but DO NOT DOUBLE A DOSE. * Read your medicine information when you get home. * Know all of the side effects of your medicine. If in doubt, ask your pharmacist * Call your Primary Care doctor's office if you have any side effects. * Be sure all of your doctors know what medicine and herbs you take (including cold, flu, and herbal medicine). Take the following with you to your follow-up doctor appointments: * Weight Chart * Medication List * List of questions Do not drink excessive alcohol, beer or wine. Current Hospital Diet Patient's current hospital diet: Low Sodium Diet (2gm Na), Diabetes Type 2 Diet Discharge Diet Recommended Diet: AHA Diet (Heart Healthy), Diabetes Type 2 Diet Pending Studies Studies pending at discharge: no Laboratory Results Hemoglobin A1c Test 04/08/17 12:12 Range/Units Estimated Average Glucose 166 mg/dl Hemoglobin A1c 7.4 H 4.5-5.6 % Medical Emergencies . Who to Call and When: Call 911 or go to the Emergency Room if: * If at any time you feel your situation is an emergency * You have tightness or pain in your chest that does not go away with rest or Nitroglycerin * You are very short of breath even with rest . Non-Emergent Contact Non-Emergency issues call your: Primary Care Provider Call Non-Emergent contact if: you have a fever, temperature is above 100.5, you have any medication questions Chest pain, shortness of breath, abdominal pain, worsening ability to breath, cough, wheeze, or if you have any other concerns regarding your health. . Past History Medical & Surgical History: (1) Acute on chronic diastolic (congestive) heart failure (2) COPD (chronic obstructive pulmonary disease) with acute bronchitis . "Provider Documentation" section prepared by Leah Vásquez. . VTE Core Measure Inpt VTE Proph given/why not?: Enoxaparin (Lovenox)SQ, T.E.Eneida. Luann, SCD's
[2017-04-09 11:08] VITALS: BP 123/71; TEMP 36.5; O2SAT 97
--- NOTE | 2017-04-09 11:09 | Discharge Summary ---
Discharge Summary Date of Service Apr 09, 2017. (Laquita Vásquez PA-C) Discharge Summary Admission Date: Apr 04, 2017 at 16:53 Discharge Date: Apr 09, 2017 Discharge Disposition: Home Principal Diagnosis: Acute on Chronic diastolic CHF, COPD exacerbation Problems/Secondary Diagnoses: COPD, DM II, hx of prostate cx, chronic diastolic CHF admitted with COPD exacerbation and possible acute/chronic diastolic CHF, developed hyperglycemia from the use of steroid which required insulin drip Immunizations: Have You Had Influenza Vaccine: Yes Influenza Vaccine Date: Sep 01, 2013 History of Tetanus Vaccine?: uptd History of Pneumococcal: Yes Pneumococcal Date: Sep 02, 2012 History of Hepatitis B Vaccine: No Procedures: CHEST ONE VIEW PORTABLE CLINICAL HISTORY: 77 years-old Male presenting with Pt c/o SOB. TECHNIQUE: Portable upright AP view of the chest was obtained. COMPARISON: 03/28/2017. FINDINGS: Atherosclerosis of aortic arch. Enlarged cardiac silhouette, unchanged. Minimal opacity at the right lung base with associated blunting of the lateral costophrenic angle. Osseous structures normal. Upper abdomen normal. IMPRESSION: 1. Stable appearance of minimal right basilar opacity, likely atelectasis or scarring, with associated small pleural effusion or pleural thickening. 2. Cardiomegaly. No south pulmonary edema. Electronically signed by: Timothy Barry M.D. 04/04/2017 12:44 PM Dictated Date/Time: 04/04/2017 12:42 PM The status of this report is Signed. (CHEST FOR PE) ANGIO WITH CT DOSE: 343.37 mGy.cm HISTORY: Chest pain dyspnea TECHNIQUE: Multiaxial CT images of the chest were performed following the intravenous administration of contrast to evaluate the pulmonary arteries. Maximal intensity projection images were also obtained. A dose lowering technique was utilized adhering to the principles of ALARA. COMPARISON STUDY: None. FINDINGS: There is a normal caliber thoracic aorta with no evidence for dissection. There is no evidence for pulmonary embolus. No pleural effusions. No pneumothorax. The liver and spleen are unremarkable. No mediastinal or hilar lymphadenopathy. The central airways are patent. The lungs are clear. Mild peribronchial thickening. Mild dependent basilar atelectasis. IMPRESSION: No evidence for pulmonary embolus. Mild dependent basilar atelectasis. Mild peribronchial thickening throughout both hemithoraces. Trace pleural fluid right base The above report was generated using voice recognition software. It may contain grammatical, syntax or spelling errors. Electronically signed by: Trae Lucas M.D. 04/04/2017 2:07 PM Dictated Date/Time: 04/04/2017 2:00 PM The status of this report is Signed. Consultations: None (Laquita Vásquez, DAYSI) Medication Reconciliation New Medications: Doxycycline Hyclate (Doxycycline Hyclate) 100 Mg Cap 100 MG PO BID for 3 Days, #5 CAP Take next dose this evening. Finish on 04/11 Guaifenesin Ext Rel (Mucinex Ext Rel) 600 Mg Tabcr 1200 MG PO Q12 for 3 Days, #5 DOSE Magnesium Oxide (Magnesium-Oxide) 400 Mg Tab 400 MG PO QAM for 30 Days, #30 TAB Prednisone (Prednisone) 20 Mg Tab 20 MG PO Q12 for 12 Days, #17 TAB Take 1 tab in AM and PM x 5 days. Then 1 tab in morning x 7 days Tamsulosin HCl (Tamsulosin HCl) 0.4 Mg Cap 0.4 MG PO HS for 30 Days, #30 CAP Changed Medications: Prednisone (Prednisone) 5 Mg Tab 5 MG PO DAILY for 14 Days, #40 TAB (Changed from: Prednisone Tab (Prednisone) 10 Mg Tab 10 Mg PO DAILY) Take 15 mg x 7 days, then 10 mg x 5 days, then 7.5 mg from thereafter. Continued Medications: Aclidinium [place] (Tudorza Pressair) 400 Mcg/Act Aer 1 PUFF INH BID Albuterol (Ventolin Hfa) 60 Puffs/5400 Mcg Aers 2 PUFFS INH QID PRN for Shortness of Breath Albuterol Sulf (Proventil 0.083% 2.5MG/3ML) 2.5 Mg/3 Ml Nebu 2.5 MG INH Q4H PRN for SOB/Wheezing, EA Arformoterol Tartrate (Brovana) 15 Mcg/2 Ml Neb 15 MCG INH BID, INHALER Aspirin (Aspirin Ec) 81 Mg Tab 81 MG PO DAILY Cholecalciferol (Vitamin D) 5,000 Unit Tab 5000 UNIT PO DAILY Escitalopram (Lexapro) 10 Mg Tab 10 MG PO DAILY Furosemide (Lasix) 20 Mg Tab 20 MG PO DAILY PRN for FLUID, 3 Refills Glimepiride (Glimepiride) 1 Mg Tab 1 MG PO QAM Glucosamine-Chondroitin (Osteo Bi-Flex Regular Str) 1 Tab Tab 1 TAB PO BID Home O2 Therapy (Oxygen) Gas 1.5 LITER NA HS Levothyroxine Sodium (Synthroid) 75 Mcg Tab 75 MCG PO DAILYBB for 30 Days, TAB Metformin Hcl (Glucophage) 500 Mg Tab 1000 MG PO BID, TAB Mometasone Furoate (Nasal) (Mometasone Furoate) 50 Mcg/Act Spr 2 SPRAYS VERONICA DAILY PRN for Nasal Congestion Multiple Vitamins W/ Minerals (Centrum) 1 Tab Tab 1 TABLET PO QAM Omeprazole (Omeprazole) 20 Mg Tab 20 MG PO QAM Oxymetazoline Hcl (Afrin 0.05% Nasal [place]) 1 Btl [place] 1 SPRAY NA BID PRN for Nasal Congestion, BTL Simvastatin (Zocor) 80 Mg Tab 80 MG PO HS, TAB Discontinued Medications: Cephalexin Monohydrate (Keflex) 500 Mg Cap 500 MG PO QID, #28 CAP Discharge Exam The patient was seen and examined this morning. Pt reports doing well today. His is present at bedside. Pt has been ambulating about the halls without difficulty or shortness of breath. He denies any wheeze or cough. He denies chest pain or shortness of breath at rest or on exertion. He is anticipating d/ c home today. ROS: Constitutional: No fever, sweats or chills Eyes: No diplopia, no worsening or blurred vision ENT: normal hearing, no trouble swallowing Respiratory: No cough, sputum, dyspnea at rest or on exertion Cardiovascular: No chest pain, tightness or palpitations Abdomen: No pain, nausea, vomiting, diarrhea or constipation Musculoskeletal: No joint pain, calf pain, swelling Neurologic: No weakness, numbness/tingling, or balance problems Psychiatric: No anxiety or depression Skin: No rash or itch Physical Exam: General: awake, alert, no apparent distress Head: Normocephalic, atraumatic ENT: PERRL, EOMI, no pharyngeal exudate, mucous membranes moist Chest: Faint crackles at the left base, otherwise clear throughout on room air, Cardiac: Regular rate and rhythm, no murmur, no JVD, normal peripheral pulses, good capillary refill Abdominal: NABS x 4 quadrants, soft, nontender to palpation, no rebound, guarding or tenderness Extremities: Normal inspection, +1 pitting peripheral edema of BLE, no erythema , calfs nontender to palpation Psych: Normal mood and affect Neuro: AAO x 3, strength intact bilaterally and related 5/5, no motor deficits, speech is clear, no peripheral sensory deficits (Laquita Vásquez PA-C) Hospital Course H&P per Tarik Garcia MD History of Present Illness Source: patient 77yo male with history of COPD, T2DM, and prostate cancer who presented today from the pulmonary office with worsening dyspnea, chest heaviness, and nonproductive cough. Recently seen in the office about 1 week ago and was placed on antibiotics and steroids for the above symptoms. Despite such his symptoms have progressed over the last few days. No fevers or chills. Denies any significant weight gain but has noted some abdominal swelling as well as edema of his legs. Physical Exam Vital Signs Date Time Temp Pulse Resp B/P (MAP) Pulse Ox O2 Delivery O2 Flow Rate FiO2 04/04/17 15:39 95 18 126/71 95 Nasal Cannula 2.0 04/04/17 14:29 94 Nasal Cannula 2.0 04/04/17 14:28 87 Room Air 04/04/17 14:11 89 04/04/17 14:11 101 16 125/63 94 Room Air 04/04/17 13:15 88 12 140/58 100 Nebulizer 8.0 04/04/17 12:27 67 14 98 Room Air 04/04/17 12:15 67 12 131/79 96 Room Air 04/04/17 12:14 96 Room Air 04/04/17 11:28 76 04/04/17 11:26 75 18 159/79 96 Room Air 04/04/17 11:19 94 Room Air 04/04/17 11:16 36.4 82 22 166/68 94 Room Air General Appearance: WD/WN, no apparent distress Head: normocephalic, atraumatic Eyes: PERRL ENT: hearing grossly normal, TMs normal, pharynx normal Neck: no adenopathy, thyroid normal, + JVD (about 2/[address] up neck) Respiratory/Chest: no respiratory distress, no accessory muscle use, + rales (b /l bases worse on right), + wheezing (diffuse) Cardiovascular: regular rate, rhythm, no gallop, normal peripheral pulses, + systolic murmur (2/6 LLSB) Abdomen/GI: normal bowel sounds, non tender, soft, no organomegaly Back: normal inspection Extremities/Musculoskelatal: + pedal edema (1+ b/l) Neurologic/Psych: no motor/sensory deficits, alert, normal mood/affect, normal reflexes, oriented x 3 Skin: no rash Lymphatic: no adenopathy (cervical ) Hospital course: 77yo ma admitted on 04/04/2017 with PMHx of COPD, DM II, hx of prostate cx, chronic diastolic CHF admitted with COPD exacerbation and possible acute/ chronic diastolic CHF, developed hyperglycemia from the use of steroid which required insulin drip COPD with exacerbation, stable and improving - Has been tapered from IV solumedrol to oral prednisone, Now down to prednisone 20 mg daily, continue slow taper, patient has been taking 7.5 mg as an outpatient per [facility] pulmonary [facility].He and his plan to take a month long trip to [place]. We will extend the taper over the next 4 weeks, with plans to make an appointment with Constantine Noriega upon their return. - Continue supportive care with duonebs, O2, mucinex, flutter, incentive spirometry - On doxycycline PO for possible bronchitis day #5, continue for 7 day course. - Chest CTA was done because of elevated d-dimer, there was no PE, no pulmonary edema, no pneumonia Possible acute/chronic diastolic CHF - upon admission he appears mildly volume overloaded based on his neck veins, peripheral edema, etc. - Some of the peribronchial findings on CT could be pulmonary edema. - Appears to have bilateral lower extremity pitting 1+ today, although the patient and his report this is better and back to his baseline - Continue daily weights; fluid/salt restrict, strict I/Os T2DM - Hyperglycemia developed with steriods, required an insulin gtt, now transitioned off insulin gtt and on Lantus BID along with ISS. Patient does not need insulin at the time of discharge, he has been resumed on his normal home regimen - Restarted on metformin 1000 mg BID, glimiperide cx by pharmacy as this is nonformulary, can resume upon discharge. - Hgb A1C = 7.4 on 04/08 Hypothyroidism - continue synthroid 7 5mcg daily Anemia - appears to have combination of Fe Deficiency anemia and he is also borderline B12 deficient. - [facility] and is due later this week- continue this appointment is already scheduled - Possible just postpone the and transfusion and follow-up with oncologist - Cause of Fe deficiency is unknown - had negative EGD/colonoscopy just a few weeks ago by Dr. Brooke. - Prior celiac panel was also normal. - Advised patient to follow-up with PCP and specialist about this Microscopic hematuria and possible UTI - hx of left-sided kidney stone, 9mm - no symptoms at this time. Is already established with urology. - Patient is on doxycycline for the treatment possible COPD exacerbation - No new antibiotics except doxycycline, this need to be follow-up with PCP, urologist Hyperlipidemia - cont statin therapy H/o a. flutter - per records - at time of admit was placed on telemetry as he is at risk of paroxysmal a. flutter due to increased stress, etc. - has been transferred off tele DVT proph - lovenox 40mg daily CODE STATUS: Full code level 1 Disposition: From home, lives with , discharge home today. Total Time Spent: Greater than 30 minutes This includes examination of the patient, discharge planning, medication reconciliation, and communication with other providers. (Laquita Vásquez, DAYSI) I agree with PA assessment and plan and have seen and examined pt myself Resting comfortably in bed VSS Labs reviewed CHF/COPD stable No worsening sob Stable for discharge home (Joseph Lewis, D.O.) Discharge Instructions Please refer to the electronic Patient Visit Report (Discharge Instructions) for additional information. (Laquita Vásquez PA-C) Follow-Up Follow-up Follow up with your Primary Care Provider within 1 week. Follow-up with pulmonology within 4 weeks, plans to schedule this appointment Follow-up with urology for microcytic hematuria within 2-4 weeks [facility] as already scheduled this week (Laquita Vásquez PA-C) Additional Copies To Artis Gunderson M.D.
[2017-04-09 11:23] VITALS: PULSE 74; O2SAT 96
== END 2017-04-09 12:00 | disposition home or self-care (01) | DRG 190 ==
LOC: C.EDB 11:15 → ENRESERV 16:49 → CANRESERV 16:49 → EDBEDREQSVC 16:51 → EDBEDREQTM 16:51 → C.2T 16:53 → ENRESERV 17:33 → C.4E 04-07 13:00
PROVIDERS: ADMIT Internal Medicine; ATTEND Hospitalist
DX: J44.1 Chronic obstructive pulmonary disease with (acute) exacerbation (principal); I50.33 Acute on chronic diastolic (congestive) heart failure; N39.0 Urinary tract infection, site not specified; Z79.82 Long term (current) use of aspirin; Z82.49 Family history of ischemic heart disease and other diseases of the circulatory system; Z85.46 Personal history of malignant neoplasm of prostate; F32.9 Major depressive disorder, single episode, unspecified; Z87.442 Personal history of urinary calculi; E03.9 Hypothyroidism, unspecified; E78.5 Hyperlipidemia, unspecified; Z82.3 Family history of stroke; Z87.891 Personal history of nicotine dependence; E10.65 Type 1 diabetes mellitus with hyperglycemia

== ENCOUNTER 2017-04-11 18:59 | Observation (INO) | payer BC ==
[~2017-04-11] VITALS: Ht 182.9 cm; Wt 78.4 kg
[2017-04-11] MEDS ORDERED: ALBUT/IPRATROP 3MG/0.5MG NEB 3 ML VIAL INH STA (19:23)
[2017-04-11] MEDS ORDERED: MAGNESIUM SULFATE 1GM / D5W 1 GM BAG IV STA (19:23)
--- NOTE | 2017-04-11 19:26 | EMERGENCY ROOM VISIT NOTE ---
History Report prepared by Triston: Martin Devlin Under the Supervision of: Dr. Danyel Morales M.D. First contact with patient: 19:05 Chief Complaint: ABNORMAL LABS Stated Complaint: ELEVATED WBC, POSSIBLE SEPSIS History of Present Illness The patient is a 77 year old white male with a past medical history of COPD and a prostatectomy who presents to the ED with a cc of a high white blood cell count beginning recently. Positive clear rhinorrhea, congestion, dry cough, and generalized weakness. Negative worsening shortness of breath, nausea, vomiting, or urinary symptoms. The patient was seen in the hospital 2 days ago for difficulty breathing. He was having an exacerbation of his COPD and a urinary tract infection. They placed him on 20 mg Prednisone twice a day, which is a higher dose than he takes chronically. Today, he was having a check up with [facility], when they noticed his high WBC count. He also switched his previous antibiotic to Amoxicillin. He then sent him here. He wears 2L of oxygen at night. Source of History: patient Onset: recently Position: other (global) Symptom Intensity: High at 26 Quality: other (WBC Count) Timing: constant Associated Symptoms: + cough (dry), + weakness (generalized), No SOB, No nausea, No vomiting, No urinary symptoms Note: Patient has clear rhinorrhea and congestion. Review of Systems See HPI for pertinent positives and negatives. A total of ten systems were reviewed and were otherwise negative. Past Medical & Surgical Medical Problems: (1) Acute on chronic diastolic (congestive) heart failure (2) Anemia (3) Bronchitis (4) Diabetes (5) Heart disease (6) Heart murmur (7) kidney colic, nish kiendy stones (8) Pneumonia (9) Weakness Family History FHx: cancer FHx: heart disease FHx: lung disease Social History Smoking Status: Never Smoker Smokeless Tobacco Use: No Alcohol Use: occasionally Drug Use: none Marital Status: Housing Status: lives with significant other Occupation Status: retired Current/Historical Medications Scheduled Aclidinium [place] (Tudorza Pressair), 1 PUFF INH BID Arformoterol Tartrate (Brovana), 15 MCG INH BID Cholecalciferol (Vitamin D), 5,000 UNIT PO DAILY Doxycycline Hyclate (Doxycycline Hyclate), 100 MG PO BID Escitalopram (Lexapro), 10 MG PO DAILY Glimepiride (Glimepiride), 1 MG PO QAM Glucosamine-Chondroitin (Osteo Bi-Flex Regular Str), 1 TAB PO BID Guaifenesin Ext Rel (Mucinex Ext Rel), 1,200 MG PO Q12 Home O2 Therapy (Oxygen), 2 LITER NA HS Levothyroxine Sodium (Synthroid), 75 MCG PO DAILYBB Magnesium Oxide (Magnesium-Oxide), 400 MG PO QAM Metformin Hcl (Glucophage), 1,000 MG PO BID Multiple Vitamins W/ Minerals (Centrum), 1 TABLET PO QAM Omeprazole (Omeprazole), 20 MG PO QAM Prednisone (Prednisone), 5 MG PO DAILY Prednisone (Prednisone), 20 MG PO Q12 Simvastatin (Zocor), 80 MG PO HS Scheduled PRN Albuterol (Ventolin Hfa), 2 PUFFS INH QID PRN for Shortness of Breath Albuterol Sulf (Proventil 0.083% 2.5MG/3ML), 2.5 MG INH Q4H PRN for SOB/Wheezing Furosemide (Lasix), 20 MG PO DAILY PRN for FLUID Mometasone Furoate (Nasal) (Mometasone Furoate), 2 SPRAYS VERONICA DAILY PRN for Nasal Congestion Oxymetazoline Hcl (Afrin 0.05% Nasal [place]), 1 SPRAY NA BID PRN for Nasal Congestion Allergies Coded Allergies: Quinolones (Verified Allergy, Severe, ANAPHYLAXIS, 04/04/17) LISTED UNDER MD ORDERS, PT. VERIFIED ANAPHYLAXIS Formoterol (Verified Allergy, Intermediate, RASH, 04/04/17) LISTED UNDER MD ORDERS, PT. VERIFIED RASH ALLERGY Metoprolol (Verified Allergy, Intermediate, RASH, 04/04/17) Sulfa Antibiotics (Verified Allergy, Intermediate, severe red rash, ) Moxifloxacin (Verified Allergy, Unknown, swelling, 04/04/17) Ofloxacin (Verified Allergy, Unknown, unknown, 04/04/17) Physical Exam Vital Signs Date Time Temp Pulse Resp B/P (MAP) Pulse Ox O2 Delivery O2 Flow Rate FiO2 04/11/17 21:30 93 20 154/75 97 Room Air 04/11/17 20:29 90 20 124/72 98 Room Air 04/11/17 20:08 92 04/11/17 19:02 36.3 108 24 121/69 99 Room Air Physical Exam GENERAL: Awake, alert, well-appearing, NAD, wearing hearing aids HENT: Normocephalic, atraumatic. EYES: Normal conjunctiva. Sclera non-icteric. NECK: Supple. No nuchal rigidity. FROM. RESPIRATORY: Sonorous breath sounds, mild crackles bilateral bases. Trace and expiratory wheezing to the left upper lobe. CARDIAC: RRR, no MRG ABDOMEN: Soft, NTND, BS+ MSK: No chest wall TTP, trace pretibial edema. NEURO: GCS 15, CN 2-12 intact, moves all 4s on command SKIN: No rash or jaundice noted. Medical Decision & Procedures ER Provider Diagnostic Interpretation: Radiology results as stated below per my review and radiologist interpretation: SINGLE VIEW CHEST CLINICAL HISTORY: Wheezing. COPD. FINDINGS: An AP, portable, upright chest radiograph is compared to study dated performed earlier the same day 04/11/2017 and correlated with chest CT dated 04/04/2017. The examination is degraded by portable technique and patient rotation. The heart is enlarged and there is atherosclerotic calcification of the thoracic aorta. The pulmonary vasculature is noncongested. Chronic interstitial thickening and scarring at the right lung base are similar to previous. There is a small right pleural effusion. The lungs and pleural spaces are otherwise clear. There is no pneumothorax. The skeletal structures are osteopenic. Degenerative change is noted throughout the thoracic spine. IMPRESSION: 1. Cardiomegaly without radiographic evidence of congestive failure. 2. No acute cardiopulmonary abnormality is identified. 3. A small right pleural effusion with chronic change at the right lung base is similar to previous. Electronically signed by: Fausto Donovan M.D. 04/11/2017 8:44 PM Dictated Date/Time: 04/11/2017 8:42 PM Laboratory Results 04/11/17 19:15 Red Blood Count 4.31, Mean Corpuscular Volume 87.0, Mean Corpuscular Hemoglobin 26.7, Mean Corpuscular Hemoglobin Concent 30.7, Mean Platelet Volume 11.1, Neutrophils (%) (Auto) 89.9, Lymphocytes (%) (Auto) 6.0, Monocytes (%) (Auto) 2.2, Eosinophils (%) (Auto) 0.0, Basophils (%) (Auto) 0.1, Neutrophils # (Auto) 20.82, Lymphocytes # (Auto) 1.39, Monocytes # (Auto) 0.52, Eosinophils # (Auto) 0.00, Basophils # (Auto) 0.02 04/11/17 19:15 Test 04/11/17 19:15 04/11/17 20:06 04/11/17 20:45 04/11/17 21:41 White Blood Count 23.16 K/uL (4.8-10.8) Red Blood Count 4.31 M/uL (4.7-6.1) Hemoglobin 11.5 g/dL (14.0-18.0) Hematocrit 37.5 % (42-52) Mean Corpuscular Volume 87.0 fL (80-100) Mean Corpuscular Hemoglobin 26.7 pg (25-34) Mean Corpuscular Hemoglobin Concent 30.7 g/dl (32-36) Platelet Count 332 K/uL (130-400) Mean Platelet Volume 11.1 fL (7.4-10.4) Neutrophils (%) (Auto) 89.9 % Lymphocytes (%) (Auto) 6.0 % Monocytes (%) (Auto) 2.2 % Eosinophils (%) (Auto) 0.0 % Basophils (%) (Auto) 0.1 % Neutrophils # (Auto) 20.82 K/uL (1.4-6.5) Lymphocytes # (Auto) 1.39 K/uL (1.2-3.4) Monocytes # (Auto) 0.52 K/uL (0.11-0.59) Eosinophils # (Auto) 0.00 K/uL (0-0.5) Basophils # (Auto) 0.02 K/uL (0-0.2) RDW Standard Deviation 70.7 fL (36.4-46.3) RDW Coefficient of Variation 21.9 % (11.5-14.5) Immature Granulocyte % (Auto) 1.8 % Immature Granulocyte # (Auto) 0.41 K/uL (0.00-0.02) Polychromasia 1+ Echinocytes 1+ Anion Gap 13.0 mmol/L (3-11) Est Creatinine Clear Calc Drug Dose 50.6 ml/min Estimated GFR () 60.1 Estimated GFR (Non- 51.9 BUN/Creatinine Ratio 20.8 (10-20) Calcium Level 9.0 mg/dl (8.5-10.1) Beta-Hydroxybutyric Acid 3.07 mg/dL (0.2-2.81) Procalcitonin 0.11 ng/ml (0-0.5) Venous Blood pH 7.46 (7.36-7.41) Venous Blood Partial Pressure CO2 27 mmHg (38.0-50.0) Venous Blood Partial Pressure O2 55 mmHg Venous Blood HCO3 19 mmol/L Venous Blood Oxygen Saturation 87.4 % Venous Blood Base Excess -4.1 mEq/L Urine Color YELLOW Urine Appearance CLEAR (CLEAR) Urine pH 5.0 (4.5-7.5) Urine Specific [place] 1.042 (1.000-1.030) Urine Protein NEG (NEG) Urine Glucose (UA) 3+ (NEG) Urine Ketones 1+ (NEG) Urine Occult Blood 2+ (NEG) Urine Nitrite NEG (NEG) Urine Bilirubin NEG (NEG) Urine Urobilinogen NEG (NEG) Urine Leukocyte Esterase NEG (NEG) Urine WBC (Auto) 10-30 /hpf (0-5) Urine RBC (Auto) 10-30 /hpf (0-4) Urine Hyaline Casts (Auto) 0 /lpf (0-5) Urine Epithelial Cells (Auto) 5-10 /lpf (0-5) Urine Bacteria (Auto) NEG (NEG) Urine Mucus PRESENT (NONE PRSENT) Bedside Glucose 385 mg/dl (70-99) Laboratory results reviewed by me Medications Administered Medications (Trade) Dose Ordered Sig/Clair Route Start Time Stop Time Status Last Admin Dose Admin Albuterol/ Ipratropium (Duoneb) 3 ml NOW STAT INH 04/11/17 19:23 04/11/17 19:26 DC 04/11/17 19:42 3 ML Magnesium Sulfate (Magnesium Sulfate) 1 gm NOW STAT IV 04/11/17 19:23 04/11/17 19:26 DC 04/11/17 19:42 1 GM Sodium Chloride 250 ml @ 999 mls/hr Q16M STAT IV 04/11/17 20:25 04/11/17 20:40 DC 04/11/17 20:25 999 MLS/HR Insulin Human Regular (novoLIN-R) 5 units ONE STAT SC 04/11/17 20:25 04/11/17 20:27 DC 04/11/17 20:36 5 UNITS Acetaminophen (Tylenol Tab) 1,000 mg NOW STAT PO 04/11/17 20:59 04/11/17 21:00 DC 04/11/17 21:11 1,000 MG Menthol (Nice Margaret) 1 margaret NOW STAT PO 04/11/17 20:59 04/11/17 21:00 DC 04/11/17 21:11 1 MARGARET ED Course 1904: The patient was evaluated in room C4. A complete history and physical exam was performed. 2125: I spoke with Dr. Mayra STACK, at this time. We discussed the patient's case. He will be evaluating the patient for further management and care. Medical Decision The patient is a 77 year old white male with a past medical history of COPD and a prostatectomy who presents to the ED with a cc of a high white blood cell count beginning recently. Positive clear rhinorrhea, congestion, dry cough, and generalized weakness. Negative worsening shortness of breath, nausea, vomiting, or urinary symptoms. Triage Nursing notes reviewed. The patient's presentation and history were concerning for reactive, infection, and leukemoid reaction. Patient was evaluated the bedside. Patient not complaining, shortness of breath however patient was wheezy so given Mg and nebs. Patient did have a fairly elevated leukocytosis of steroids were not given at this time. Patient noted to have elevated blood glucose same was given a small fluid bolus in addition to subcutaneous insulin. Patient anion gap 13 with a bicarbonate of 20. Pro-Harvey is normal and has a negative chest x-ray is probably less likely infection given that he does not have acute symptoms. Nevertheless given his hyperglycemia and acute change in his white blood cell count is spoke with the hospitalist who agreed that the patient would be admitted for further management and care. Medication Reconcilliation Current Medication List: was personally reviewed by me Blood Pressure Screening Patient's blood pressure: Normal blood pressure Blood pressure disposition: Did not require urgent referral Consults Time Called: [id number] Consulting Physician: Dr. Mayra STACK Returned Call: [phone] Discussed the patient's case. The patient will be evaluated for further treatment and disposition. Impression Primary Impression: Leukocytosis Additional Impression: Hyperglycemia Scribe Attestation The scribe's documentation has been prepared under my direction and personally reviewed by me in its entirety. I confirm that the note above accurately reflects all work, treatment, procedures, and medical decision making performed by me. Departure Information Dispostion Being Evaluated By Hospitalist Referrals No Doctor, Assigned (PCP) Patient Instructions My [facility] Problem Qualifiers Primary Impression: Leukocytosis Leukocytosis type: unspecified Qualified Codes: D72.829 - Elevated white blood cell count, unspecified
[2017-04-11 19:38] LABS: HEMATOCRIT 37.5 % (42-52); MEAN CORPUSCULAR HEMOGLOBIN 26.7 pg (25-34); MEAN CORPUSCULAR HGB CONC 30.7 g/dl (32-36); MEAN PLATELET VOLUME 11.1 fL (7.4-10.4); PLATELET COUNT 332 K/uL (130-400); RED BLOOD COUNT 4.31 M/uL (4.7-6.1); WHITE BLOOD COUNT 23.16 K/uL (4.8-10.8)
[2017-04-11 20:15] LABS: BUN/CREATININE RATIO 20.8 (10-20); CREATININE 1.3 mg/dl (0.60-1.40)
[2017-04-11 20:21] LABS: VEN BLD GAS O2 SATURATION 87.4 %; VEN BLOOD GAS BASE EXCESS -4.1 mEq/L
[2017-04-11 20:21] LABS: BASO % 0.1 %; BASO ABS # 0.02 K/uL (0-0.2); COMPLETE YES; ECHINOCYTES 1+; IG% 1.8 %; LYMPH ABS # 1.39 K/uL (1.2-3.4); MONO % 2.2 %; NEUT % 89.9 %; POLYCHROMASIA 1+
[2017-04-11] MEDS ORDERED: SODIUM CHLORIDE 0.9% 250ML 250 ML IV STA (20:25)
[2017-04-11] MEDS ORDERED: INSULIN HUMAN REGULAR SC STA (20:25)
[2017-04-11 20:32] LABS: BETA-HYDROXYBUTYRATE 3.07 mg/dL (0.2-2.81)
[2017-04-11] MEDS ORDERED: NovoLIN-R INSULIN PER UNIT CHARGE SQ STA (20:33)
[2017-04-11] MEDS ORDERED: NovoLIN-R INSULIN PER UNIT CHARGE ONE (20:34)
--- NOTE | 2017-04-11 20:45 | DIAGNOSTIC IMAGING REPORT ---
SINGLE VIEW CHEST CLINICAL HISTORY: Wheezing. COPD. FINDINGS: An AP, portable, upright chest radiograph is compared to study dated performed earlier the same day 04/11/2017 and correlated with chest CT dated 04/04/2017. The examination is degraded by portable technique and patient rotation. The heart is enlarged and there is atherosclerotic calcification of the thoracic aorta. The pulmonary vasculature is noncongested. Chronic interstitial thickening and scarring at the right lung base are similar to previous. There is a small right pleural effusion. The lungs and pleural spaces are otherwise clear. There is no pneumothorax. The skeletal structures are osteopenic. Degenerative change is noted throughout the thoracic spine. IMPRESSION: 1. Cardiomegaly without radiographic evidence of congestive failure. 2. No acute cardiopulmonary abnormality is identified. 3. A small right pleural effusion with chronic change at the right lung base is similar to previous. Electronically signed by: Fausto Donovan M.D. 04/11/2017 8:44 PM Dictated Date/Time: 04/11/2017 8:42 PM
[2017-04-11 20:57] LABS: MANUAL MICROSCOPIC REQUIRED? NO; REVIEW REQ? YES; URINE APPEARANCE CLEAR (CLEAR); URINE BILIRUBIN NEG (NEG); URINE COLOR YELLOW; URINE NITRITE NEG (NEG); URINE SPECIFIC GRAVITY 1.042 (1.000-1.030); UROBILINOGEN NEG (NEG); ZZUR CULT IF INDIC CLEAN CATCH YES
[2017-04-11] MEDS ORDERED: COUGH DROP (SUGAR FREE) LOZ 24 LOZ/1 BOX PO STA (20:59)
[2017-04-11] MEDS ORDERED: ACETAMINOPHEN 500 MG TAB PO STA (20:59)
[2017-04-11 21:06] LABS: URINE MUCUS PRESENT (NONE PRSENT)
--- NOTE | 2017-04-11 21:59 | History and Physical ---
History & Physical Date & Time of Service: Apr 11, 2017 at 21:42 Chief Complaint: Elevated Wbc, Possible Sepsis Primary Care Physician: Artis Gunderson M.D. History of Present Illness Source: patient, spouse Mr. Gibson presents today as a referral from Pulmonary office. Patient states that he has been feeling "fuzzy in the head" since being discharge from the hospital on 04/09 for COPD/CHF exacerbation. At the office, the patient was noted to have a leukocytosis of 23. He was then referred to the ED for further evaluation. The patient was admitted from 04/04 - 04/09 acute diastolic CHF exaccerbation and COPD exacerbation. Since being discharged on 04/09 - Since going home, he states that he gets lightheaded and dizzy with standing up. His vision is blurry. - states that he is weak and unstable at home since being discharged from the hospital. This has been worsening for the past 2 days. No falls at home As such brought him to Pulmonary office for evaluation. - The patient reports cough and shortness of breath lingering from his most recent admission but this is slowly improving. The cough is dry. Denies wheezing - The patient denies chest pain, palpitations, resting or exertional dyspnea, orthopnea, or lower extremity edema. - The patient denies fevers, chills, nightsweats. - The patient denies nausea, vomiting diarrhea or constipation. No pain or burning with urination. He reports having a normal appetite. Intake has been normal. In the ED he was found to have a BSG 483. He was started on gently on IV fluid rehydration. He was given 5 units of Regular Insulin s.c.. He was also given a Duoneb treatment. BSG was 288 this morning before breakfast. He did not check yesterday. Has been taking diabetes medications as directed. Past Medical/Surgical History CHF Type 2 Diabetes Mellitus COPD Hyperlipidemia Renal Stones, left side Medical Problems: (1) Bronchitis Status: Chronic (2) Diabetes Status: Chronic (3) Heart disease Status: Chronic (4) Heart murmur Status: Chronic (5) Pneumonia Status: Chronic Family History FHx: cancer FHx: heart disease FHx: lung disease Social History Smoking Status: Never Smoker Smokeless Tobacco Use: No Alcohol Use: none Drug Use: none Marital Status: Housing status: lives with family Occupational Status: retired Immunizations History of Influenza Vaccine: Yes Influenza Vaccine Date: Sep 01, 2013 History of Tetanus Vaccine?: uptd History of Pneumococcal: Yes Pneumococcal Date: Sep 02, 2012 History of Hepatitis B Vaccine: No Multi-Drug Resistant Organisms History of MDRO: No Allergies Coded Allergies: Quinolones (Verified Allergy, Severe, ANAPHYLAXIS, 04/04/17) LISTED UNDER MD ORDERS, PT. VERIFIED ANAPHYLAXIS Formoterol (Verified Allergy, Intermediate, RASH, 04/04/17) LISTED UNDER MD ORDERS, PT. VERIFIED RASH ALLERGY Metoprolol (Verified Allergy, Intermediate, RASH, 04/04/17) Sulfa Antibiotics (Verified Allergy, Intermediate, severe red rash, ) Moxifloxacin (Verified Allergy, Unknown, swelling, 04/04/17) Ofloxacin (Verified Allergy, Unknown, unknown, 04/04/17) Home Medications Scheduled Aclidinium [place] (Tudorza [place]), 1 PUFF INH BID Arformoterol Tartrate (Brovana), 15 MCG INH BID Cholecalciferol (Vitamin D), 5,000 UNIT PO DAILY Doxycycline Hyclate (Doxycycline Hyclate), 100 MG PO BID Escitalopram (Lexapro), 10 MG PO DAILY Glimepiride (Glimepiride), 1 MG PO QAM Glucosamine-Chondroitin (Osteo Bi-Flex Regular Str), 1 TAB PO BID Guaifenesin Ext Rel (Mucinex Ext Rel), 1,200 MG PO Q12 Home O2 Therapy (Oxygen), 2 LITER NA HS Levothyroxine Sodium (Synthroid), 75 MCG PO DAILYBB Magnesium Oxide (Magnesium-Oxide), 400 MG PO QAM Metformin Hcl (Glucophage), 1,000 MG PO BID Multiple Vitamins W/ Minerals (Centrum), 1 TABLET PO QAM Omeprazole (Omeprazole), 20 MG PO QAM Prednisone (Prednisone), 5 MG PO DAILY Prednisone (Prednisone), 20 MG PO Q12 Simvastatin (Zocor), 80 MG PO HS Scheduled PRN Albuterol (Ventolin Hfa), 2 PUFFS INH QID PRN for Shortness of Breath Albuterol Sulf (Proventil 0.083% 2.5MG/3ML), 2.5 MG INH Q4H PRN for SOB/Wheezing Furosemide (Lasix), 20 MG PO DAILY PRN for FLUID Mometasone Furoate (Nasal) (Mometasone Furoate), 2 SPRAYS VERONICA DAILY PRN for Nasal Congestion Oxymetazoline Hcl (Afrin 0.05% Nasal [place]), 1 SPRAY NA BID PRN for Nasal Congestion Review of Systems A 10 point review of systems was negative unless stated above. Physical Exam Vital Signs Date Time Temp Pulse Resp B/P (MAP) Pulse Ox O2 Delivery O2 Flow Rate FiO2 04/11/17 21:30 93 20 154/75 97 Room Air 04/11/17 20:29 90 20 124/72 98 Room Air 04/11/17 20:08 92 04/11/17 19:02 36.3 108 24 121/69 99 Room Air General Appearance: WD/WN, no apparent distress Head: normocephalic, atraumatic Eyes: normal inspection, EOMI ENT: hearing grossly normal, pharynx normal Neck: supple, no adenopathy Respiratory/Chest: lungs clear, no respiratory distress Cardiovascular: regular rate, rhythm, no gallop, no murmur Abdomen/GI: normal bowel sounds, non tender, soft Back: no CVA tenderness, no muscle spasm Extremities/Musculoskelatal: no calf tenderness, no pedal edema Neurologic/Psych: alert, normal mood/affect, oriented x 3 Skin: normal color, warm/dry, no rash Lymphatic: no adenopathy Diagnostics Laboratory Results Results Past 24 Hours Test 04/11/17 19:15 04/11/17 20:06 04/11/17 20:45 Range/Units White Blood Count 23.16 4.8-10.8 K/uL Red Blood Count 4.31 4.7-6.1 M/uL Hemoglobin 11.5 14.0-18.0 g/dL Hematocrit 37.5 42-52 % Mean Corpuscular Volume 87.0 80-100 fL Mean Corpuscular Hemoglobin 26.7 25-34 pg Mean Corpuscular Hemoglobin Concent 30.7 32-36 g/dl Platelet Count 332 130-400 K/uL Mean Platelet Volume 11.1 7.4-10.4 fL Neutrophils (%) (Auto) 89.9 % Lymphocytes (%) (Auto) 6.0 % Monocytes (%) (Auto) 2.2 % Eosinophils (%) (Auto) 0.0 % Basophils (%) (Auto) 0.1 % Neutrophils # (Auto) 20.82 1.4-6.5 K/uL Lymphocytes # (Auto) 1.39 1.2-3.4 K/uL Monocytes # (Auto) 0.52 0.11-0.59 K/uL Eosinophils # (Auto) 0.00 0-0.5 K/uL Basophils # (Auto) 0.02 0-0.2 K/uL RDW Standard Deviation 70.7 36.4-46.3 fL RDW Coefficient of Variation 21.9 11.5-14.5 % Immature Granulocyte % (Auto) 1.8 % Immature Granulocyte # (Auto) 0.41 0.00-0.02 K/uL Polychromasia 1+ Echinocytes 1+ Sodium Level 133 136-145 mmol/L Potassium Level 5.0 3.5-5.1 mmol/L Chloride Level 100 98-107 mmol/L Carbon Dioxide Level 20 21-32 mmol/L Anion Gap 13.0 3-11 mmol/L Blood Urea Nitrogen 27 7-18 mg/dl Creatinine 1.30 0.60-1.40 mg/dl Est Creatinine Clear Calc Drug Dose 50.6 ml/min Estimated GFR () 60.1 Estimated GFR (Non- 51.9 BUN/Creatinine Ratio 20.8 10-20 Random Glucose 483 70-99 mg/dl Calcium Level 9.0 8.5-10.1 mg/dl Beta-Hydroxybutyric Acid 3.07 0.2-2.81 mg/dL Procalcitonin 0.11 0-0.5 ng/ml Venous Blood pH 7.46 7.36-7.41 Venous Blood Partial Pressure CO2 27 38.0-50.0 mmHg Venous Blood Partial Pressure O2 55 mmHg Venous Blood HCO3 19 mmol/L Venous Blood Oxygen Saturation 87.4 % Venous Blood Base Excess -4.1 mEq/L Urine Color YELLOW Urine Appearance CLEAR CLEAR Urine pH 5.0 4.5-7.5 Urine Specific [place] 1.042 1.000-1.030 Urine Protein NEG NEG Urine Glucose (UA) 3+ NEG Urine Ketones 1+ NEG Urine Occult Blood 2+ NEG Urine Nitrite NEG NEG Urine Bilirubin NEG NEG Urine Urobilinogen NEG NEG Urine Leukocyte Esterase NEG NEG Urine WBC (Auto) 10-30 0-5 /hpf Urine RBC (Auto) 10-30 0-4 /hpf Urine Hyaline Casts (Auto) 0 0-5 /lpf Urine Epithelial Cells (Auto) 5-10 0-5 /lpf Urine Bacteria (Auto) NEG NEG Urine Mucus PRESENT NONE PRSENT Microbiology Results 04/11/17 Blood Culture, Received Pending 04/11/17 Blood Culture, Received Pending 04/11/17 Urine Culture, Received Pending Diagnostic Radiology SINGLE VIEW CHEST CLINICAL HISTORY: Wheezing. COPD. FINDINGS: An AP, portable, upright chest radiograph is compared to study dated performed earlier the same day 04/11/2017 and correlated with chest CT dated 04/04/2017. The examination is degraded by portable technique and patient rotation. The heart is enlarged and there is atherosclerotic calcification of the thoracic aorta. The pulmonary vasculature is noncongested. Chronic interstitial thickening and scarring at the right lung base are similar to previous. There is a small right pleural effusion. The lungs and pleural spaces are otherwise clear. There is no pneumothorax. The skeletal structures are osteopenic. Degenerative change is noted throughout the thoracic spine. IMPRESSION: 1. Cardiomegaly without radiographic evidence of congestive failure. 2. No acute cardiopulmonary abnormality is identified. 3. A small right pleural effusion with chronic change at the right lung base is similar to previous. Impression Assessment and Plan 77 year old male presenting malaise and weakness after recent discharge for COPD /CHF exacerbation. He is hyperglycemic in the ED, which I suspect is the cause of his symptoms. His labs point to him being slightly dehydrated with pre-renal PATRICK. His cardiopulmonary appears stable currently. Our plan for him is as follows: Hyperglycemia on background of type 2 Diabetes - 2/2 steroid burden - Home meds on hold - Patient notes he was taking 40 mg Dose decreased to 20 mg; patient given Pulmicort Respules to decrease systemic steroid burden Recommend rapid taper to chronic regimen of 10 mg daily - 5 units Regular insulin given in the ED - Cautious IV rehydration did not bring BSG down; patient started on insulin infusion with goal 140-180 - Patient is currently kept NPO until BSG within goal Acute Kidney Injury - Cr. 1.3; baseline 0.8-0.9 - BUN/Cr > 20 - Urine SG > 1.020 suggesting normal concentrating function and pre-renal etiology - Monitor BMP daily Chronic Diastolic CHF - Patient current euvolemic - Cautious rehydration for hyperglycemia above - Monitor daily weight, in/out, low sodium diet COPD - Stable - Continue Doxycycline course prescribed at discharge Procalcitonin is negative so I do not suspect new/worsening infection - Continue albuterol and Brovana - Pulmicort added to offset excessive systemic steroid use - 20 mg Prednisone; recommend rapid taper to home regimen given hyperglycemia Hypothyroidism - Continue Levothyroxine Iron Deficiency Anemia - As noted on previous discharge summary - Work-up done on previous admissino with no clear cause - Hb 11 today which is as good as it has been - Patient is apparently due for IV iron infusions this week Hyperlipidemia - Continue Simvastatin GERD - Continue Pantoprazole Depression - Continue Escitalopram DVT Prophylaxis - SCD Knee, SRIDHAR Hose - Heparin 5000 U s.c. TID Code Status - Level I Full Code Disposition - Med/Surg - OT and PT evaluations Attending Addendum: I have physically seen and examined this patient, have supervised the medical residents activities, and agree with the H&P as noted above with the following exceptions as noted. The patient presents to the ED with a lingering cough, shortness of breath since his previous admission. However, since discharge on April 09, he has developed lightheadedness and dizziness when standing up. The patient denies chest pain, palpitations, lower extremity swelling, sore throat, fevers, chills, sweats, nausea, vomiting, diarrhea or constipation, abdominal pain, pelvic pain, blood in urine or stool, dysuria, urinary frequency or urgency, headache, rash, abnormal bruising or bleeding, focal weakness, numbness or tingling in arms or legs, generalized arthralgias or myalgias, back or neck pain, night sweats. The review of systems is otherwise negative other than for that already noted above, and at least 10 systems have been reviewed. The patient is awake, well-developed and adequately nourished, alert and oriented 3, normocephalic and atraumatic, lying in bed and in no acute distress. HEENT--PERRL, EOMI, mucous membranes and oropharynx dry. Neck--supple, no JVD or bruits, thyroid normal, trachea midline, no adenopathy. Heart--normal S1 and S2, no extra beats, no murmurs, rubs or gallops. Lungs--clear bilaterally with good air movement, no respiratory distress, no accessory muscle use. Abdomen--normal bowel sounds and soft, nontender and nondistended, no hernias or masses, no organomegaly. Extremities--no cyanosis, clubbing or edema. There are good distal pulses b/l. Dermatologic--normal skin turgor, normal color, warm and dry, no abnormal lymph nodes, no rash. Neurologic--cranial nerves II through XII grossly intact. Rheumatologic--normal range of motion, nontender, muscles and joints. Psychiatric--normal affect. Assessment and Plan: 1. Hyperglycemia with diabetes mellitus aggravated by prednisone--patient be admitted to the medical floor. Decrease the prednisone from 40-20 mg today and then to 10 mg tomorrow and then DC. He was given 5 units of Regular Insulin in the ED. Hydrate with IV fluids, follow serial Accu-Cheks with NovoLog coverage per scale. 2. COPD--decrease prednisone as noted above. Continue albuterol and Brovana nebulizers. Add Pulmicort Respules 0.5 mg inhaled twice a day. Level of Care Med/Surg Advanced Directives Existing Advance Directive: No Existing Living Will: No Existing Power of Compressed Air Pile Driver Operator: No Resuscitation Status FULL RESUSCITATION VTE Prophylaxis VTE Risk Assessment Done? Y/N: Yes Risk Level: Moderate Given or contraindicated: Unfractionated heparin SQ
[2017-04-11] MEDS ORDERED: POLYETHYLENE (MIRALAX) 17 GM PACK PO PRN (22:15)
[2017-04-11] MEDS ORDERED: ALUMINUM/MAGNESIUM/SIMETH (MAALOX MAX) 30 ML UDC PO PRN (22:15)
[2017-04-11] MEDS ORDERED: FLUTICASONE PROPIONATE NA SPR 16 GM BTL NAE PRN (22:15)
[2017-04-11] MEDS ORDERED: ONDANSETRON INJ 2 MG/ML 2 ML VIAL IV PRN (22:15)
[2017-04-11] MEDS ORDERED: MAGNESIUM HYDROXIDE SUSP 30 ML UDC PO PRN (22:15)
[2017-04-11] MEDS ORDERED: ALBUTEROL HFA 8 GM INHALER INH PRN (22:15)
[2017-04-11] MEDS ORDERED: ACETAMINOPHEN 325 MG TAB PO PRN (22:15)
[2017-04-11] MEDS ORDERED: BUDESONIDE 0.5 MG/2 ML VIAL (PULMICORT) INH ONE (22:18)
[2017-04-11] MEDS ORDERED: SIMETHICONE 80 MG CHEW PO PRN (22:45)
[2017-04-11 23:09] VITALS: BP 113/65; PULSE 99; TEMP 36.6; O2SAT 98; BMI 23.4
[2017-04-11] MEDS: NSS + 20MEQ KCL 1000ML 1,000 ML IV SCH (23:48)
[2017-04-12] MEDS ORDERED: INSULIN ASPART 100 UNITS/ML 3 ML PEN SC STA (02:43)
[2017-04-12] MEDS ORDERED: INSULIN PROTOCOL GOAL RANGE ONE (04:15)
[2017-04-12] MEDS ORDERED: MODERATE STRESS LEVEL ONE (04:15)
[2017-04-12] MEDS ORDERED: INSULIN IV INFUSION PROTOCOL SCH (04:26)
[2017-04-12] MEDS ORDERED: INSULIN HUMAN REGULAR IV BOLUS 2 UNIT in SYRINGE 0 ML IV SCH (05:00)
[2017-04-12] MEDS: INSULIN REGULAR 250 UNITS in SODIUM CHLORIDE 0.9% 250ML 250 ML IV SCH ×4 (05:11→10:38)
[2017-04-12] MEDS: HEPARIN SOD 5000 UNIT/0.5 ML CARP SQ SCH ×3 (06:26→22:03)
[2017-04-12] MEDS: LEVOTHYROXINE 75 MCG TAB PO SCH (06:27)
[2017-04-12] MEDS ORDERED: INSULIN ASPART 100 UNITS/ML 3 ML PEN SC SCH ×2 (06:30→09:00)
[2017-04-12 06:36] LABS: HEMATOCRIT 33.5 % (42-52); MEAN CELL VOLUME 86.8 fL (80-100); MEAN CORPUSCULAR HEMOGLOBIN 26.2 pg (25-34); MEAN CORPUSCULAR HGB CONC 30.1 g/dl (32-36); MEAN PLATELET VOLUME 10.2 fL (7.4-10.4); PLATELET COUNT 272 K/uL (130-400); RED BLOOD COUNT 3.86 M/uL (4.7-6.1); WHITE BLOOD COUNT 17.29 K/uL (4.8-10.8)
[2017-04-12 07:00] VITALS: BP 120/75; PULSE 63; TEMP 36.4; O2SAT 95
[2017-04-12] MEDS: ARFORMOTEROL TART 15MCG/2ML VIAL INH SCH ×2 (07:08→19:33)
[2017-04-12] MEDS: BUDESONIDE 0.5 MG/2 ML VIAL (PULMICORT) INH SCH ×2 (07:08→19:33)
[2017-04-12 07:11] LABS: BUN/CREATININE RATIO 25.4 (10-20); CALCIUM 8.6 mg/dl (8.5-10.1); CREATININE 0.82 mg/dl (0.60-1.40); POTASSIUM 4.4 mmol/L (3.5-5.1)
[2017-04-12 07:13] VITALS: PULSE 63; O2SAT 98
[2017-04-12] MEDS: ESCITALOPRAM OXALATE 10 MG TAB PO SCH (08:28)
[2017-04-12] MEDS: CEROVITE ADV FORMULA TAB PO SCH (08:29)
[2017-04-12] MEDS: GUAIFENESIN 600 MG TABCR PO SCH ×2 (08:29→20:16)
[2017-04-12] MEDS: DOXYCYCLINE HYCLATE 100 MG CAP PO SCH ×2 (08:29→20:17)
[2017-04-12] MEDS: MAGNESIUM OXIDE 400 MG TAB PO SCH (08:30)
[2017-04-12] MEDS: CHOLECALCIFEROL 1000 INTER.UNIT TAB PO SCH (08:30)
[2017-04-12] MEDS: PANTOprazole SOD 40 MG TAB PO SCH (08:31)
[2017-04-12] MEDS ORDERED: PHARMACY GLYCEMIC MGMT CONSULT SCH (08:35)
[2017-04-12 08:59] LABS: CREATININE 0.84 mg/dl (0.60-1.40); MAGNESIUM 2.2 mg/dl (1.8-2.4); POTASSIUM 4.3 mmol/L (3.5-5.1)
[2017-04-12 09:00] LABS: PHOSPHORUS 2.4 mg/dl (2.5-4.9)
[2017-04-12] MEDS ORDERED: NON-FORMULARY MEDICATION (Glucosamine-Chondroitin (Osteo Bi-Flex Regular Str) 1 TAB) PO SCH (09:00)
[2017-04-12] MEDS ORDERED: INSULIN GLARGINE SOLOSTAR 100 UNITS/ML 3 ML PEN SC ONE (09:00)
--- NOTE | 2017-04-12 09:40 | Pharmacy Progress Note ---
Glycemic Control Intl Consult Date of Service Apr 12, 2017. Scope Glycemic Pharmacist consulted by Dr Jack on 04/12/17 for glycemic control and to write orders per [facility] inpatient glycemic control protocol Objective Weight (Kilograms): 78.400 Accuchecks BSG (last 24hrs): Test 04/11/17 19:15 04/11/17 21:41 04/12/17 02:27 04/12/17 04:03 Random Glucose 483 mg/dl (70-99) Bedside Glucose 385 mg/dl (70-99) 336 mg/dl (70-99) 341 mg/dl (70-99) Test 04/12/17 06:14 04/12/17 06:21 04/12/17 07:11 04/12/17 08:08 Bedside Glucose 244 mg/dl (70-99) 233 mg/dl (70-99) 220 mg/dl (70-99) Random Glucose 263 mg/dl (70-99) Test 04/12/17 08:20 Random Glucose 233 mg/dl (70-99) Laboratory Data (last 24hrs) Test 04/11/17 19:15 04/12/17 06:21 04/12/17 08:20 Anion Gap 13.0 mmol/L 6.0 mmol/L 7.0 mmol/L BUN/Creatinine Ratio 20.8 25.4 23.0 Blood Urea Nitrogen 27 mg/dl 21 mg/dl 19 mg/dl Creatinine 1.30 mg/dl 0.82 mg/dl 0.84 mg/dl Potassium Level 5.0 mmol/L 4.4 mmol/L 4.3 mmol/L Sodium Level 133 mmol/L 139 mmol/L 138 mmol/L White Blood Count 23.16 K/uL 17.29 K/uL Red Blood Count 4.31 M/uL Hemoglobin 11.5 g/dL Hematocrit 37.5 % Mean Corpuscular Volume 87.0 fL Mean Corpuscular Hemoglobin 26.7 pg Mean Corpuscular Hemoglobin Concent 30.7 g/dl Platelet Count 332 K/uL Mean Platelet Volume 11.1 fL Neutrophils (%) (Auto) 89.9 % Lymphocytes (%) (Auto) 6.0 % Monocytes (%) (Auto) 2.2 % Eosinophils (%) (Auto) 0.0 % Basophils (%) (Auto) 0.1 % Neutrophils # (Auto) 20.82 K/uL Lymphocytes # (Auto) 1.39 K/uL Monocytes # (Auto) 0.52 K/uL Eosinophils # (Auto) 0.00 K/uL Basophils # (Auto) 0.02 K/uL Recent Pertinent Medications Outpatient Anti-diabetic Regimen: * Metformin 1g PO BID; Glimepiride 1mg PO Daily * A1c = 7.4 % 04/08/17 The patient is currently receiving: IV insulin infusion Risk Factors for Insulin Resistance: * Steroids: Prednisone 20 mg PO Daily * Infection: Doxycycline 100mg PO BID * Diet: Type 2 DM Assessment & Plan ASSESSMENT: * 77 year old type 2 diabetic, decently controlled as outpatient on oral medications, readmitted for steroid induced hyperglycemia and COPD exacerbation , pt was just here earlier this week and discharged on PO Prednisone and Doxycycline, continuing this admission * NOTE: Pt having steroid induced hyperglycemia, would recommend discharging patient on either NPH insulin or dose of glipizide to give with PO steroids as outpatient to prevent readmission again for steroid induced hyperglycemia. * Patient placed on insulin drip at 0500 today, after speaking with Dr Jack, we would like to transition him to basal bolus at this time and reinitiate orals tomorrow. Pt starting diet today. * Will begin with a one time Lantus dose, then possibly a daily dose. Pt required daily Lantus last week, but was on IV steroids at that time. * ADA & AACE recommend a goal blood sugar range 140-180 mg/dl for the majority of critically ill & non-critically ill patients. However, more stringent targets may be selected in individual cases. For pt's A1c and control at home, will use 110-140mg/dl PLAN FOR INPATIENT GLYCEMIC CONTROL: * Holding outpatient oral diabetes medications * Resume Glimepiride and metformin tomorrow * Basal insulin with LANTUS 15 units SQ x1 today at 0900 then re-evaluate tomorrow to see if patient requires daily Lantus * Continue IV insulin infusion until 1500 today, then discontinue * Correctional Insulin with NOVOLOG per scale ACHS or Q6hrs while NPO and overnight at 0000 and 0400 tonight * Goal Range: Low 110 mg/dL - High 140 mg/dL * Correction Factor: 20 mg/dL/unit * Nutritional / Prandial insulin per carb ratio of 1 unit per 7 grams CHO consumed DISCHARGE RECOMMENDATIONS: * If patient goes home on prednisone again recommend either: * NPH - 8 units SQ daily with prednisone dose * Glipizide 10mg PO daily with prednisone dose * Please note that the plan above was derived based on current level of insulin resistance and hospital stress. These recommendations are appropriate for inpatient admission only. Plan of care upon discharge will need to be reassessed to avoid potential outpatient hypo/hyperglycemia. Thank you.
[2017-04-12] MEDS ORDERED: INSULIN REGULAR 250 UNITS in SODIUM CHLORIDE 0.9% 250ML 250 ML IV SCH (11:30)
[2017-04-12] MEDS: NSS + 20MEQ KCL 1000ML 1,000 ML IV SCH (12:34)
[2017-04-12] MEDS: INSULIN ASPART 100 UNITS/ML 3 ML PEN SC SCH ×3 (12:44→20:22)
[2017-04-12 13:02] VITALS: BMI 23.4
[2017-04-12 13:50] LABS: BUN/CREATININE RATIO 23.2 (10-20); CALCIUM 9.6 mg/dl (8.5-10.1); CREATININE 0.88 mg/dl (0.60-1.40); MAGNESIUM 2.2 mg/dl (1.8-2.4); PHOSPHORUS 2.7 mg/dl (2.5-4.9); POTASSIUM 4.2 mmol/L (3.5-5.1)
[2017-04-12 15:52] VITALS: BP 130/72; PULSE 76; TEMP 36.6; O2SAT 97
[2017-04-12 17:30] LABS: BUN/CREATININE RATIO 30.5 (10-20); CALCIUM 9.1 mg/dl (8.5-10.1); CREATININE 0.79 mg/dl (0.60-1.40); MAGNESIUM 2.1 mg/dl (1.8-2.4); PHOSPHORUS 2.7 mg/dl (2.5-4.9); POTASSIUM 4.6 mmol/L (3.5-5.1)
[2017-04-12] MEDS ORDERED: NURSING VERBAL MED ORDER ONE (18:00)
[2017-04-12 19:36] VITALS: PULSE 69; O2SAT 98
--- NOTE | 2017-04-12 20:43 | Hospitalist Progress Note ---
Hospitalist Progress Note Date of Service Apr 12, 2017. Subjective Pt evaluation today including: conversation w/ patient, physical exam patient feeling better Objective Vital Signs Date Time Temp Pulse Resp B/P (MAP) Pulse Ox O2 Delivery O2 Flow Rate FiO2 04/12/17 08:00 Room Air 04/12/17 07:13 63 18 98 Nasal Cannula 2.0 04/12/17 07:00 36.4 63 20 120/75 (90) 95 Nasal Cannula 04/11/17 23:09 36.6 99 20 113/65 98 Room Air 04/11/17 22:35 85 20 150/76 97 Room Air 04/11/17 21:30 93 20 154/75 97 Room Air 04/11/17 20:29 90 20 124/72 98 Room Air 04/11/17 20:08 92 04/11/17 19:02 36.3 108 24 121/69 99 Room Air Physical Exam General Appearance: no apparent distress Eyes: normal inspection ENT: hearing grossly normal Neck: supple, trachea midline Respiratory/Chest: lungs clear Cardiovascular: regular rate, rhythm Abdomen: normal bowel sounds Neurologic/Psychiatric: alert Laboratory Results Last 24 Hours Test 04/11/17 19:15 04/11/17 20:06 04/11/17 20:45 04/11/17 21:41 White Blood Count 23.16 K/uL Red Blood Count 4.31 M/uL Hemoglobin 11.5 g/dL Hematocrit 37.5 % Mean Corpuscular Volume 87.0 fL Mean Corpuscular Hemoglobin 26.7 pg Mean Corpuscular Hemoglobin Concent 30.7 g/dl Platelet Count 332 K/uL Mean Platelet Volume 11.1 fL Neutrophils (%) (Auto) 89.9 % Lymphocytes (%) (Auto) 6.0 % Monocytes (%) (Auto) 2.2 % Eosinophils (%) (Auto) 0.0 % Basophils (%) (Auto) 0.1 % Neutrophils # (Auto) 20.82 K/uL Lymphocytes # (Auto) 1.39 K/uL Monocytes # (Auto) 0.52 K/uL Eosinophils # (Auto) 0.00 K/uL Basophils # (Auto) 0.02 K/uL RDW Standard Deviation 70.7 fL RDW Coefficient of Variation 21.9 % Immature Granulocyte % (Auto) 1.8 % Immature Granulocyte # (Auto) 0.41 K/uL Polychromasia 1+ Echinocytes 1+ Sodium Level 133 mmol/L Potassium Level 5.0 mmol/L Chloride Level 100 mmol/L Carbon Dioxide Level 20 mmol/L Anion Gap 13.0 mmol/L Blood Urea Nitrogen 27 mg/dl Creatinine 1.30 mg/dl Est Creatinine Clear Calc Drug Dose 50.6 ml/min Estimated GFR () 60.1 Estimated GFR (Non- 51.9 BUN/Creatinine Ratio 20.8 Random Glucose 483 mg/dl Calcium Level 9.0 mg/dl Beta-Hydroxybutyric Acid 3.07 mg/dL Procalcitonin 0.11 ng/ml Venous Blood pH 7.46 Venous Blood Partial Pressure CO2 27 mmHg Venous Blood Partial Pressure O2 55 mmHg Venous Blood HCO3 19 mmol/L Venous Blood Oxygen Saturation 87.4 % Venous Blood Base Excess -4.1 mEq/L Urine Color YELLOW Urine Appearance CLEAR Urine pH 5.0 Urine Specific [place] 1.042 Urine Protein NEG Urine Glucose (UA) 3+ Urine Ketones 1+ Urine Occult Blood 2+ Urine Nitrite NEG Urine Bilirubin NEG Urine Urobilinogen NEG Urine Leukocyte Esterase NEG Urine WBC (Auto) 10-30 /hpf Urine RBC (Auto) 10-30 /hpf Urine Hyaline Casts (Auto) 0 /lpf Urine Epithelial Cells (Auto) 5-10 /lpf Urine Bacteria (Auto) NEG Urine Mucus PRESENT Bedside Glucose 385 mg/dl Test 04/12/17 02:27 04/12/17 04:03 04/12/17 06:14 04/12/17 06:21 Bedside Glucose 336 mg/dl 341 mg/dl 244 mg/dl White Blood Count 17.29 K/uL Red Blood Count 3.86 M/uL Hemoglobin 10.1 g/dL Hematocrit 33.5 % Mean Corpuscular Volume 86.8 fL Mean Corpuscular Hemoglobin 26.2 pg Mean Corpuscular Hemoglobin Concent 30.1 g/dl RDW Standard Deviation 70.0 fL RDW Coefficient of Variation 21.9 % Platelet Count 272 K/uL Mean Platelet Volume 10.2 fL Sodium Level 139 mmol/L Potassium Level 4.4 mmol/L Chloride Level 109 mmol/L Carbon Dioxide Level 24 mmol/L Anion Gap 6.0 mmol/L Blood Urea Nitrogen 21 mg/dl Creatinine 0.82 mg/dl Est Creatinine Clear Calc Drug Dose 80.2 ml/min Estimated GFR () 97.5 Estimated GFR (Non- 84.1 BUN/Creatinine Ratio 25.4 Random Glucose 263 mg/dl Calcium Level 8.6 mg/dl Test 04/12/17 07:11 04/12/17 08:08 04/12/17 08:20 04/12/17 10:33 Bedside Glucose 233 mg/dl 220 mg/dl 192 mg/dl Venous Blood pH 7.42 Sodium Level 138 mmol/L Potassium Level 4.3 mmol/L Chloride Level 106 mmol/L Carbon Dioxide Level 25 mmol/L Anion Gap 7.0 mmol/L Blood Urea Nitrogen 19 mg/dl Creatinine 0.84 mg/dl Est Creatinine Clear Calc Drug Dose 78.3 ml/min Estimated GFR () 96.5 Estimated GFR (Non- 83.3 BUN/Creatinine Ratio 23.0 Random Glucose 233 mg/dl Calcium Level 9.0 mg/dl Phosphorus Level 2.4 mg/dl Magnesium Level 2.2 mg/dl Test 04/12/17 11:19 04/12/17 13:08 04/12/17 14:33 Bedside Glucose 190 mg/dl 174 mg/dl Venous Blood pH 7.37 Sodium Level 138 mmol/L Potassium Level 4.2 mmol/L Chloride Level 105 mmol/L Carbon Dioxide Level 25 mmol/L Anion Gap 8.0 mmol/L Blood Urea Nitrogen 20 mg/dl Creatinine 0.88 mg/dl Est Creatinine Clear Calc Drug Dose 74.7 ml/min Estimated GFR () 94.7 Estimated GFR (Non- 81.7 BUN/Creatinine Ratio 23.2 Random Glucose 183 mg/dl Calcium Level 9.6 mg/dl Phosphorus Level 2.7 mg/dl Magnesium Level 2.2 mg/dl Assessment and Plan 77 year old male presenting malaise and weakness after recent discharge for COPD /CHF exacerbation. He is hyperglycemic in the ED, which I suspect is the cause of his symptoms. His labs point to him being slightly dehydrated with pre-renal PATRICK. His cardiopulmonary appears stable currently. Our plan for him is as follows: 1. Hyperglycemia on background of type 2 Diabetes - 2/2 steroid burden - Home meds on hold - Patient notes he was taking 40 mg Dose decreased to 20 mg; patient given Pulmicort Respules to decrease systemic steroid burden Recommend rapid taper to chronic regimen of 10 mg daily - 5 units Regular insulin given in the ED - Cautious IV rehydration did not bring BSG down; patient started on insulin infusion with goal 140-180 - Patient is currently kept NPO until BSG within goal Will ask pharmcy to manage 2. Acute Kidney Injury - Cr. 1.3; baseline 0.8-0.9 - BUN/Cr > 20 - Urine SG > 1.020 suggesting normal concentrating function and pre-renal etiology - Monitor BMP daily 3. Chronic Diastolic CHF - Patient current euvolemic - Cautious rehydration for hyperglycemia above - Monitor daily weight, in/out, low sodium diet 4. COPD - Stable - Continue Doxycycline course prescribed at discharge Procalcitonin is negative so I do not suspect new/worsening infection - Continue albuterol and Brovana - Pulmicort added to offset excessive systemic steroid use - 20 mg Prednisone; recommend rapid taper to home regimen given hyperglycemia 5. Hypothyroidism - Continue Levothyroxine 6. Iron Deficiency Anemia - As noted on previous discharge summary - Work-up done on previous admissino with no clear cause - Hb 11 today which is as good as it has been - Patient is apparently due for IV iron infusions this week 7. Hyperlipidemia - Continue Simvastatin 8. GERD - Continue Pantoprazole 9. Depression - Continue Escitalopram 10. DVT Prophylaxis - SCD Knee, SRIDHAR Hose - Heparin 5000 U s.c. TID 11. Code Status - Level I Full Code 12. Disposition - Med/Surg - OT and PT evaluations Level of Care Med/Surg Resuscitation Status FULL RESUSCITATION VTE Prophylaxis Given or contraindicated: Unfractionated heparin SQ Discharge planning: home
[2017-04-12] MEDS ORDERED: NON-FORMULARY MEDICATION (Home O2 Therapy (Oxygen) 2 LITER) SCH (21:00)
[2017-04-12] MEDS ORDERED: SIMVASTATIN 80 MG TAB PO SCH (21:00)
[2017-04-12 21:52] LABS: BUN/CREATININE RATIO 23.8 (10-20); CALCIUM 8.9 mg/dl (8.5-10.1); CREATININE 0.92 mg/dl (0.60-1.40); POTASSIUM 4.5 mmol/L (3.5-5.1)
[2017-04-12 23:18] VITALS: BP 126/70; PULSE 63; TEMP 36.5; O2SAT 98
[2017-04-13] MEDS: INSULIN ASPART 100 UNITS/ML 3 ML PEN SC SCH ×4 (00:12→12:39)
[2017-04-13 02:10] LABS: BUN/CREATININE RATIO 25.7 (10-20); CALCIUM 8.4 mg/dl (8.5-10.1); CREATININE 0.84 mg/dl (0.60-1.40); MAGNESIUM 1.9 mg/dl (1.8-2.4); PHOSPHORUS 3.1 mg/dl (2.5-4.9)
[2017-04-13 04:38] LABS: CALCIUM 8.3 mg/dl (8.5-10.1); CREATININE 0.88 mg/dl (0.60-1.40); PHOSPHORUS 3.2 mg/dl (2.5-4.9); POTASSIUM 4.1 mmol/L (3.5-5.1)
[2017-04-13] MEDS: LEVOTHYROXINE 75 MCG TAB PO SCH (05:48)
[2017-04-13] MEDS: HEPARIN SOD 5000 UNIT/0.5 ML CARP SQ SCH ×2 (05:52→14:00)
[2017-04-13 07:07] VITALS: BP 133/77; PULSE 65; TEMP 36.4; O2SAT 97
[2017-04-13] MEDS: BUDESONIDE 0.5 MG/2 ML VIAL (PULMICORT) INH SCH (07:17)
[2017-04-13] MEDS: ARFORMOTEROL TART 15MCG/2ML VIAL INH SCH (07:17)
[2017-04-13] MEDS ORDERED: METFORMIN HCL 500 MG TAB PO SCH (08:00)
[2017-04-13] MEDS: DOXYCYCLINE HYCLATE 100 MG CAP PO SCH (09:00)
[2017-04-13] MEDS: GUAIFENESIN 600 MG TABCR PO SCH (09:00)
[2017-04-13] MEDS: PANTOprazole SOD 40 MG TAB PO SCH (09:00)
[2017-04-13] MEDS ORDERED: GLIMEPIRIDE 2 MG TAB PO SCH (09:00)
[2017-04-13] MEDS: ESCITALOPRAM OXALATE 10 MG TAB PO SCH (09:00)
[2017-04-13] MEDS: CEROVITE ADV FORMULA TAB PO SCH (09:01)
[2017-04-13] MEDS: CHOLECALCIFEROL 1000 INTER.UNIT TAB PO SCH (09:02)
[2017-04-13] MEDS: MAGNESIUM OXIDE 400 MG TAB PO SCH (09:04)
[2017-04-13] MEDS ORDERED: INSULIN GLARGINE SOLOSTAR 100 UNITS/ML 3 ML PEN SC SCH ×2 (09:30→21:00)
--- NOTE | 2017-04-13 11:15 | Pharmacy Progress Note ---
Glycemic Control Progress Note Date of Service Apr 13, 2017. Scope Glycemic Pharmacist consulted for glycemic control to write orders per [facility] inpatient glycemic control protocol. Objective Accuchecks BSG (last 24hrs): Test 04/12/17 11:19 04/12/17 13:08 04/12/17 14:33 04/12/17 16:11 Bedside Glucose 190 mg/dl (70-99) 174 mg/dl (70-99) 183 mg/dl (70-99) Random Glucose 183 mg/dl (70-99) Test 04/12/17 16:45 04/12/17 19:44 04/12/17 21:24 04/13/17 00:02 Random Glucose 174 mg/dl (70-99) 145 mg/dl (70-99) Bedside Glucose 171 mg/dl (70-99) 153 mg/dl (70-99) Test 04/13/17 01:32 04/13/17 04:08 04/13/17 04:12 Random Glucose 138 mg/dl (70-99) 141 mg/dl (70-99) Bedside Glucose 139 mg/dl (70-99) Recent Pertinent Medications The patient is currently receiving: * Basal insulin: Lantus 15 units SQ x 1 on 8 am * Correctional Insulin: Novolog Correction per scale ACHS Goal Range: Low 110 mg/dL - High 140 mg/dL Correction Factor: 20 mg/dL/unit * Prandial insulin: Per carb ratio of 1 unit per 7 grams CHO consumed * Oral Agents: Metformin 1000 mg PO BID + Glimepiride 1 mg PO daily Outpatient Anti-Diabetic Meds Oral Agents * Metformin 1g PO BID; Glimepiride 1mg PO Daily Assessment & Plan ASSESSMENT: * See progress note from 04/12 for more background info, in short: * 77 year old T2DM readmitted for steroid induced hyperglycemia and COPD exacerbation, pt was just here earlier this week and discharged on PO Prednisone and Doxycycline, continuing this admission * NOTE: Pt having steroid induced hyperglycemia, would recommend discharging patient on either NPH insulin or dose of glipizide to give with PO steroids as outpatient to prevent readmission again for steroid induced hyperglycemia * Patient received 46 units of insulin yesterday plus IV insulin infusion @ 2 units/hr from 0500 to 1430 * 15 units of basal insulin * 31 units of prandial/correctional insulin * ~ 21 units for IV bolus and infusion * BSGs ranging 139 - 483 mg/dl over the past 24hrs * Changes needed to insulin regimen: * AM Fasting BSG = 139 mg/dl. This is in slightly above goal range for patient based on inpatient targets and co-morbidities. Patient was given a one time dose of Lantus on 04/12. Will start patient on scheduled dose of Lantus today. * Post-prandial BSGs are near goal range. Continue aggressive CF/CR for steroid induced hyperglycemia. PLAN FOR INPATIENT GLYCEMIC CONTROL: * Metformin 1g PO BID + Glimepiride 1 mg PO daily * Basal insulin * Lantus 10 units this am, then Lantus 12 units SQ BID * Bolus insulin * NovoLog per scale ACHS or Q6hrs while NPO * Add 0200 check with coverage * Goal Range: Low 110 mg/dL - High 140 mg/dL * Correction Factor: 20 mg/dL/unit * Nutritional / Prandial insulin per carb ratio of 1 unit per 7 grams CHO consumed DISCHARGE RECOMMENDATIONS: * If patient goes home on prednisone again recommend either: * NPH - 8 units SQ daily with prednisone dose * Glipizide 10mg PO daily with prednisone dose * Please note that the plan above was derived based on current level of insulin resistance and hospital stress. These recommendations are appropriate for inpatient admission only. Plan of care upon discharge will need to be reassessed to avoid potential outpatient hypo/hyperglycemia. Thank you.
[2017-04-13 12:49] VITALS: BP 133/77; PULSE 65; TEMP 36.4; O2SAT 97
--- NOTE | 2017-04-13 14:41 | Discharge Instructions ---
Discharge Instructions Date of Service Apr 13, 2017. Admission Reason for Admission: Hyperglycemia, Weakness Discharge Discharge Diagnosis / Problem: hyperglycemia, weakness Discharge Goals Goal(s): Improve function Activity Recommendations Activity Limitations: resume your previous activity . Instructions / Follow-Up Instructions / Follow-Up Primary care physician as directed when you return from trip to [place] Current Hospital Diet Patient's current hospital diet: Low Sodium Diet (2gm Na), Diabetes Type 2 Diet Discharge Diet Recommended Diet: Diabetes Type 2 Diet Fluid Restriction: None Pending Studies Studies pending at discharge: no Laboratory Results Hemoglobin A1c Test 04/08/17 12:12 Range/Units Estimated Average Glucose 166 mg/dl Hemoglobin A1c 7.4 H 4.5-5.6 % Medical Emergencies . Who to Call and When: Medical Emergencies: If at any time you feel your situation is an emergency, please call 911 immediately. . Non-Emergent Contact Non-Emergency issues call your: Primary Care Provider . . "Provider Documentation" section prepared by Andrea Escalera. . VTE Core Measure Inpt VTE Proph given/why not?: Unfractionated heparin SQ
[2017-04-13 14:42] VITALS: Ht 182.9 cm; Wt 78.4 kg
[2017-04-14] MEDS ORDERED: INSULIN ASPART 100 UNITS/ML 3 ML PEN SC SCH (02:00)
--- NOTE | 2017-04-16 02:30 | Discharge Summary ---
Discharge Summary Date of Service Apr 16, 2017. Discharge Summary Admission Date: Apr 11, 2017 at 22:08 Discharge Date: Apr 13, 2017 Discharge Disposition: Home Principal Diagnosis: dehydration secondary to hyperglycemia steroid induced Immunizations: Have You Had Influenza Vaccine: Yes Influenza Vaccine Date: Sep 01, 2013 History of Tetanus Vaccine?: uptd History of Pneumococcal: Yes Pneumococcal Date: Sep 02, 2012 History of Hepatitis B Vaccine: No Medication Reconciliation Continued Medications: Aclidinium [place] (Tudorza Pressair) 400 Mcg/Act Aer 1 PUFF INH BID Albuterol (Ventolin Hfa) 60 Puffs/5400 Mcg Aers 2 PUFFS INH QID PRN for Shortness of Breath Albuterol Sulf (Proventil 0.083% 2.5MG/3ML) 2.5 Mg/3 Ml Nebu 2.5 MG INH Q4H PRN for SOB/Wheezing, EA Arformoterol Tartrate (Brovana) 15 Mcg/2 Ml Neb 15 MCG INH BID, INHALER Cholecalciferol (Vitamin D) 5,000 Unit Tab 5000 UNIT PO DAILY Doxycycline Hyclate (Doxycycline Hyclate) 100 Mg Cap 100 MG PO BID for 3 Days, #5 CAP Take next dose this evening. Finish on 04/11 Escitalopram (Lexapro) 10 Mg Tab 10 MG PO DAILY Furosemide (Lasix) 20 Mg Tab 20 MG PO DAILY PRN for FLUID, 3 Refills Glimepiride (Glimepiride) 1 Mg Tab 1 MG PO QAM Glucosamine-Chondroitin (Osteo Bi-Flex Regular Str) 1 Tab Tab 1 TAB PO BID Guaifenesin Ext Rel (Mucinex Ext Rel) 600 Mg Tabcr 1200 MG PO Q12 for 3 Days, #5 DOSE Home O2 Therapy (Oxygen) Gas 2 LITER NA HS Levothyroxine Sodium (Synthroid) 75 Mcg Tab 75 MCG PO DAILYBB for 30 Days, TAB Magnesium Oxide (Magnesium-Oxide) 400 Mg Tab 400 MG PO QAM for 30 Days, #30 TAB Metformin Hcl (Glucophage) 500 Mg Tab 1000 MG PO BID, TAB Mometasone Furoate (Nasal) (Mometasone Furoate) 50 Mcg/Act Spr 2 SPRAYS VERONICA DAILY PRN for Nasal Congestion Multiple Vitamins W/ Minerals (Centrum) 1 Tab Tab 1 TABLET PO QAM Omeprazole (Omeprazole) 20 Mg Tab 20 MG PO QAM Oxymetazoline Hcl (Afrin 0.05% Nasal [place]) 1 Btl [place] 1 SPRAY NA BID PRN for Nasal Congestion, BTL Simvastatin (Zocor) 80 Mg Tab 80 MG PO HS, TAB Discontinued Medications: Prednisone (Prednisone) 5 Mg Tab 5 MG PO DAILY for 14 Days, #40 TAB Take 15 mg x 7 days, then 10 mg x 5 days, then 7.5 mg from thereafter. Prednisone (Prednisone) 20 Mg Tab 20 MG PO Q12 for 12 Days, #17 TAB Take 1 tab in AM and PM x 5 days. Then 1 tab in morning x 7 days Discharge Exam Patient with no complaints cardiac S1 and S2 regular rate and rhythm lungs are clear to auscultation Hospital Course 77 year old male presenting malaise and weakness after recent discharge for COPD /CHF exacerbation. He is hyperglycemic in the ED, which I suspect is the cause of his symptoms. His labs point to him being slightly dehydrated with pre-renal PATRICK. His cardiopulmonary appears stable currently. Our plan for him is as follows: 1. Hyperglycemia on background of type 2 Diabetes - 2/2 steroid burden - Home meds on hold - Patient notes he was taking 40 mg Dose decreased to 20 mg; patient given Pulmicort Respules to decrease systemic steroid burden Recommend rapid taper to chronic regimen of 10 mg daily - 5 units Regular insulin given in the ED - Cautious IV rehydration did not bring BSG down; patient started on insulin infusion with goal 140-180 - Patient is currently kept NPO until BSG within goal Will ask pharmcy to manage 2. Acute Kidney Injury - Cr. 1.3; baseline 0.8-0.9 - BUN/Cr > 20 - Urine SG > 1.020 suggesting normal concentrating function and pre-renal etiology - Monitor BMP daily 3. Chronic Diastolic CHF - Patient current euvolemic - Cautious rehydration for hyperglycemia above - Monitor daily weight, in/out, low sodium diet 4. COPD - Stable - Continue Doxycycline course prescribed at discharge Procalcitonin is negative so I do not suspect new/worsening infection - Continue albuterol and Brovana - Pulmicort added to offset excessive systemic steroid use - 20 mg Prednisone; recommend rapid taper to home regimen given hyperglycemia 5. Hypothyroidism - Continue Levothyroxine 6. Iron Deficiency Anemia - As noted on previous discharge summary - Work-up done on previous admissino with no clear cause - Hb 11 today which is as good as it has been - Patient is apparently due for IV iron infusions this week 7. Hyperlipidemia - Continue Simvastatin 8. GERD - Continue Pantoprazole 9. Depression - Continue Escitalopram 10. DVT Prophylaxis - SCD Knee, SRIDHAR Hose - Heparin 5000 U s.c. TID 11. Code Status - Level I Full Code 12. Disposition - Med/Surg - OT and PT evaluations Level of Care Med/Surg Resuscitation Status FULL RESUSCITATION VTE Prophylaxis Given or contraindicated: Unfractionated heparin SQ Total Time Spent: Greater than 30 minutes This includes examination of the patient, discharge planning, medication reconciliation, and communication with other providers. Discharge Instructions Please refer to the electronic Patient Visit Report (Discharge Instructions) for additional information. Follow-Up Primary care physician 1 week
== END 2017-04-13 15:19 | disposition home or self-care (01) ==
LOC: C.EDB 19:01 → C.MS2W 22:08 → ENRESERV 22:21
PROVIDERS: ADMIT Student in an Organized Health Care Education/Training Program; ATTEND Hospitalist
DX: D72.829 Elevated white blood cell count, unspecified (principal); E11.65 Type 2 diabetes mellitus with hyperglycemia; J44.9 Chronic obstructive pulmonary disease, unspecified; Z79.899 Other long term (current) drug therapy; R06.2 Wheezing; I51.7 Cardiomegaly; R42 Dizziness and giddiness; I51.9 Heart disease, unspecified; R53.83 Other fatigue

== ENCOUNTER → 2017-04-11 | Outpatient (CLI) | payer BC ==
[~2017-04-11] MED LIST changes: -CEPH500C PO; +DXY100 PO; +FLM4 PO; +GFNSR600 PO; +MGNO400 PO; +PRD20 PO; +PRED-301 PO; -PRED10TA PO
--- NOTE | 2017-04-11 15:33 | DIAGNOSTIC IMAGING REPORT ---
CHEST 2 VIEWS ROUTINE HISTORY: Fatigue. COMPARISON: Chest 04/04/2017. FINDINGS: Small right pleural effusion and right basilar density/atelectasis remain unchanged. The left lung is clear. The heart is normal in size. No pneumothorax. No evidence for pulmonary edema. IMPRESSION: No change in the small right pleural effusion and right basilar atelectasis. Electronically signed by: Sandor Murdock M.D. 04/11/2017 3:32 PM Dictated Date/Time: 04/11/2017 3:25 PM
[2017-04-11 15:42] LABS: HEMATOCRIT 37.7 % (42-52); MEAN CELL VOLUME 85.1 fL (80-100); MEAN CORPUSCULAR HEMOGLOBIN 26.6 pg (25-34); MEAN CORPUSCULAR HGB CONC 31.3 g/dl (32-36); MEAN PLATELET VOLUME 11.3 fL (7.4-10.4); PLATELET COUNT 310 K/uL (130-400); RED BLOOD COUNT 4.43 M/uL (4.7-6.1); WHITE BLOOD COUNT 26.09 K/uL (4.8-10.8)
[2017-04-11 16:14] LABS: ALKALINE PHOSPHATASE 84 U/L (45-117); ALT/SGPT 29 U/L (12-78); AST/SGOT 10 U/L (15-37); BLOOD UREA NITROGEN 30 mg/dl (7-18); BUN/CREATININE RATIO 26.9 (10-20); CARBON DIOXIDE 23 mmol/L (21-32); CHLORIDE 100 mmol/L (98-107); GLUCOSE 334 mg/dl (70-99); POTASSIUM 4.3 mmol/L (3.5-5.1); SODIUM 133 mmol/L (136-145); TOTAL IRON BINDING CAPACITY 337 mcg/dl (250-450)
[2017-04-11 16:25] LABS: BETA-HYDROXYBUTYRATE 2.76 mg/dL (0.2-2.81)
[2017-04-11 16:33] LABS: BASO % 0.1 %; BASO ABS # 0.02 K/uL (0-0.2); COMPLETE YES; ECHINOCYTES 1+; IG% 1.8 %; LYMPH % 6.1 %; LYMPH ABS # 1.59 K/uL (1.2-3.4); MONO % 2.4 %; NEUT % 89.6 %; POLYCHROMASIA 1+
== END | disposition home or self-care (01) ==
LOC: C.LAB1850 14:23
PROVIDERS: ATTEND Physician Assistant
DX: R53.83 Other fatigue (principal)

== ENCOUNTER → 2017-04-17 | Outpatient (CLI) | payer BC ==
[~2017-04-17] MED LIST changes: -ASPI81TA28 PO; -FLM4 PO; -PRD20 PO; -PRED-301 PO
[2017-04-17 17:42] LABS: HEMATOCRIT 38.3 % (42-52); MEAN CELL VOLUME 90.8 fL (80-100); MEAN CORPUSCULAR HGB CONC 29.8 g/dl (32-36); MEAN PLATELET VOLUME 11.1 fL (7.4-10.4); PLATELET COUNT 185 K/uL (130-400); RED BLOOD COUNT 4.22 M/uL (4.7-6.1); WHITE BLOOD COUNT 10.17 K/uL (4.8-10.8)
[2017-04-17 18:00] LABS: BLOOD UREA NITROGEN 15 mg/dl (7-18); GLUCOSE 316 mg/dl (70-99)
[2017-04-17 18:01] LABS: ALT/SGPT 38 U/L (12-78); AST/SGOT 17 U/L (15-37); BUN/CREATININE RATIO 12.4 (10-20); CALCIUM 9.8 mg/dl (8.5-10.1); CARBON DIOXIDE 23 mmol/L (21-32); CHLORIDE 108 mmol/L (98-107); SODIUM 140 mmol/L (136-145)
[2017-04-17 18:07] LABS: ALB/GLOB RATIO 0.9 (0.9-2); ALKALINE PHOSPHATASE 76 U/L (45-117); CHOLESTEROL 153 mg/dl (0-200); CHOLESTEROL/HDL RATIO 2.5; FERRITIN 151.4 ng/ml (8.0-388.0); HDL CHOLESTEROL 62 mg/dl; LDL CHOLESTEROL CALCULATED 45 mg/dl; TRIGLYCERIDES 229 mg/dl (0-150); VERY LOW DENSITY LIPOPROT CALC 46 mg/dl
[2017-04-17 18:12] LABS: ANISOCYTOSIS PRESENT; COMPLETE YES; ECHINOCYTES 1+; EOSINOPHIL % 1.8 %; LYMPH ABS # 0.45 K/uL (1.2-3.4); LYMPHOCYTE % 4.4 %; META ABS # 0.09 K/uL (0-0); METAMYELOCYTE % 0.9 %; MYELOCYTE % 0.9 %; NEUTROPHILS % 88.5 %; TEAR DROP CELLS 1+
[2017-04-17 18:15] LABS: BETA-HYDROXYBUTYRATE 1.63 mg/dL (0.2-2.81)
[2017-04-17 18:16] LABS: RATIO 29.2 mcg/mg (0-30.0)
--- NOTE | 2017-04-25 12:20 | CODING QUERY MEDICAL NECESSITY ---
CQSUPPORTING DIAGNOSIS NEEDED A supporting diagnosis is required for the test/procedure performed on this patient in order for us to be reimbursed by the patient's insurance. Please provide a supporting diagnosis for the following test/procedure listed below next to the test name along with your signature. *If there is no additional diagnosis for this patient that would support the following test/procedure please document that below next to the test/procedure. Test(s)/Procedure(s) that require a supporting diagnosis: DOS 04/17/17 FOLIC ACID TEST Provider Signature: Date: Thank you Lidia Bedoya Health Information Management Once completed, please kindly fax back to [phone] For questions please call [phone]
== END | disposition home or self-care (01) ==
LOC: C.LABBFT 11:29
PROVIDERS: ATTEND Physician Assistant Medical
DX: E11.9 Type 2 diabetes mellitus without complications (principal); D64.9 Anemia, unspecified

== ENCOUNTER → 2017-06-06 | Outpatient (CLI) | payer BC ==
[2017-06-06 12:19] LABS: BASO % 0.6 %; BASO ABS # 0.05 K/uL (0-0.2); COMPLETE YES; EOS % 7.6 %; HEMATOCRIT 32.2 % (42-52); IG% 1.4 %; LYMPH % 18.6 %; LYMPH ABS # 1.47 K/uL (1.2-3.4); MEAN CELL VOLUME 89.7 fL (80-100); MEAN CORPUSCULAR HEMOGLOBIN 27.6 pg (25-34); MEAN CORPUSCULAR HGB CONC 30.7 g/dl (32-36); MONO % 10.6 %; NEUT % 61.2 %; PLATELET COUNT 265 K/uL (130-400); RED BLOOD COUNT 3.59 M/uL (4.7-6.1); WHITE BLOOD COUNT 7.92 K/uL (4.8-10.8)
[2017-06-06 13:05] LABS: ESTIMATED AVERAGE GLUCOSE 180 mg/dl; HA1C FLAG Normal (Normal)
== END | disposition home or self-care (01) ==
LOC: C.LABBFT 09:30
PROVIDERS: ATTEND Physician Assistant Medical
DX: D64.9 Anemia, unspecified (principal); E11.9 Type 2 diabetes mellitus without complications

== ENCOUNTER → 2017-06-07 | Outpatient (CLI) | payer BC ==
--- NOTE | 2017-06-07 12:16 | DIAGNOSTIC IMAGING REPORT ---
CHEST 2 VIEWS ROUTINE CLINICAL HISTORY: J44.9 Chronic obstructive pulmonary [id number] COMPARISON STUDY: 04/11/2017 FINDINGS: The heart is mildly enlarged. There is mild aortic tortuosity. There is no failure. There is no focal pulmonary consolidation. There is stable blunting of the right lateral costophrenic angle. There is minimal stable right basilar atelectasis/scarring.[ IMPRESSION: 1. Mild cardiomegaly 2. Stable blunting of the right lateral costophrenic angle with stable right basilar atelectasis/scarring 3. No acute findings. Electronically signed by: Rodger Robison M.D. 06/07/2017 12:15 PM Dictated Date/Time: 06/07/2017 12:14 PM
== END | disposition home or self-care (01) ==
LOC: C.RAD1850 12:00
PROVIDERS: ATTEND Physician Assistant
DX: J44.9 Chronic obstructive pulmonary disease, unspecified (principal)

== ENCOUNTER → 2017-07-04 | Outpatient (CLI) | payer BC ==
[~2017-07-04] MED LIST changes: -DXY100 PO; +LEVO75TA5 PO; +MAGN400T6 PO; -MGNO400 PO; +NYSS5 PO; +PRED10TA PO; -SYN75 PO
--- NOTE | 2017-07-04 10:42 | DIAGNOSTIC IMAGING REPORT ---
CHEST 2 VIEWS ROUTINE CLINICAL HISTORY: Pneumonia. Cough. COMPARISON STUDY: Chest radiograph June 20, 2017. FINDINGS: Lung volumes are normal. A trace right pleural effusion with associated atelectasis is unchanged. This is likely chronic. There is no evidence of pulmonary edema. There is no consolidation to suggest pneumonia. Cardiomediastinal silhouette is normal. IMPRESSION: No change in appearance of the chest. Trace right pleural effusion which may be chronic. Bibasilar atelectasis. Electronically signed by: Cesar Faye M.D. 07/04/2017 10:40 AM Dictated Date/Time: 07/04/2017 10:39 AM
== END | disposition home or self-care (01) ==
LOC: C.RAD1850 10:14
PROVIDERS: ATTEND Physician Assistant
DX: J18.9 Pneumonia, unspecified organism (principal); J90 Pleural effusion, not elsewhere classified; J98.11 Atelectasis

== ENCOUNTER → 2017-10-24 | Outpatient (CLI) | payer BC ==
[~2017-10-24] MED LIST changes: -PRED10TA PO
[2017-10-25 08:52] LABS: HEMOGLOBIN A1C 8.7 % (4.5-5.6)
== END | disposition home or self-care (01) ==
LOC: C.LABBFT 15:26
PROVIDERS: ATTEND Internal Medicine
DX: E11.9 Type 2 diabetes mellitus without complications (principal); E03.9 Hypothyroidism, unspecified

== ENCOUNTER → 2017-10-30 | Outpatient (CLI) | payer BC ==
--- NOTE | 2017-10-30 12:00 | DIAGNOSTIC IMAGING REPORT ---
KUB CLINICAL HISTORY: Nephrolithiasis. FINDINGS: An AP supine abdominal radiograph is compared to study dated 03/26/2017 and correlated with abdominal CT dated 03/15/2017. There is a nonobstructed abdominal bowel gas pattern. Numerous surgical clips are seen in the pelvis. There is a 1.4 cm distal left ureteral stone. This has passed distally as compared to 03/26/2017. No additional calculi are clearly seen projecting over either kidney. The skeletal structures are osteopenic. Lumbosacral spondylosis is noted. IMPRESSION: 1. There is a 1.4 cm distal left ureteral calculus. This has progressed distally as compared to 03/26/2017. 2. No additional renal calculi are clearly identified. Electronically signed by: Fausto Donovan M.D. 10/30/2017 11:58 AM Dictated Date/Time: 10/30/2017 11:57 AM
== END | disposition home or self-care (01) ==
LOC: C.RAD 11:28
PROVIDERS: ATTEND Urology
DX: N20.0 Calculus of kidney (principal); N20.1 Calculus of ureter

== ENCOUNTER → 2017-11-01 | Outpatient (CLI) | payer BC ==
[~2017-11-01] MED LIST changes: +ASCA500 PO; +CYAN10005 PO; +FERR50TA3 PO; +FLUT0.15 NAE; +PRD/1 PO; +PRED10TA PO
== END | disposition home or self-care (01) ==
LOC: C.MAMM 07:58
PROVIDERS: ATTEND Internal Medicine
DX: Z51.81 Encounter for therapeutic drug level monitoring (principal); Z79.52 Long term (current) use of systemic steroids; M85.80 Other specified disorders of bone density and structure, unspecified site

== ENCOUNTER → 2017-11-15 | Day surgery (SDC) | payer BC ==
[2017-11-07 09:13] VITALS: BMI 24.0
--- NOTE | 2017-11-07 09:53 | PAT Medication Instructions ---
Service Date Nov 07, 2017. Current Home Medication List Aclidinium [place] (Tudorza Pressair), 1 PUFF INH BID Albuterol (Ventolin Hfa), 2 PUFFS INH QID PRN for Shortness of Breath Albuterol Sulf (Proventil 0.083% 2.5MG/3ML), 2.5 MG INH Q4H PRN for SOB/Wheezing Arformoterol Tartrate (Brovana), 15 MCG INH BID Ascorbic Acid (Vitamin C), Unknown Dose PO QAM Cholecalciferol (Vitamin D), 5,000 UNIT PO QAM Cyanocobalamin (Vitamin B-12), 1,000 MCG PO QAM Escitalopram (Lexapro), 10 MG PO QAM Ferrous Sulfate (Iron (Ferrous Sulfate)), Unknown Dose PO BID Fluticasone Propionate (Nasal) (Flonase Allergy Relief), 1 SPRAY VERONICA UD PRN for PRN Furosemide (Lasix), 20 MG PO DAILY PRN for FLUID Glimepiride (Glimepiride), 2 MG PO QAM Glucosamine-Chondroitin (Osteo Bi-Flex Regular Str), 1 TAB PO BID Home O2 Therapy (Oxygen), 2 LITER NA HS Levothyroxine Sodium (Levothyroxine Sodium), 75 MCG PO QAM Metformin Hcl (Glucophage), 1,000 MG PO BID Multiple Vitamins W/ Minerals (Centrum), 1 TABLET PO QAM Omeprazole (Omeprazole), 20 MG PO Q2D Prednisone (Prednisone), 10 MG PO QAM Prednisone (Prednisone), 1 DOSE PO UD Simvastatin (Zocor), 80 MG PO HS Medication Instructions For Your Scheduled Surgery - Continue as directed: Prednisone (Prednisone), 10 MG PO QAM Prednisone (Prednisone), 1 DOSE PO UD Omeprazole (Omeprazole), 20 MG PO Q2D - Hold the following medications starting 11/07/17: Glucosamine-Chondroitin (Osteo Bi-Flex Regular Str), 1 TAB PO BID - Hold the following medications the morning of surgery: Ascorbic Acid (Vitamin C), Unknown Dose PO QAM Cholecalciferol (Vitamin D), 5,000 UNIT PO QAM Cyanocobalamin (Vitamin B-12), 1,000 MCG PO QAM Ferrous Sulfate (Iron (Ferrous Sulfate)), Unknown Dose PO BID Furosemide (Lasix), 20 MG PO DAILY PRN for FLUID Glimepiride (Glimepiride), 2 MG PO QAM Metformin Hcl (Glucophage), 1,000 MG PO BID Multiple Vitamins W/ Minerals (Centrum), 1 TABLET PO QAM - Take the following medications the morning of surgery with a sip of water: Levothyroxine Sodium (Levothyroxine Sodium), 75 MCG PO QAM Escitalopram (Lexapro), 10 MG PO QAM Fluticasone Propionate (Nasal) (Flonase Allergy Relief), 1 SPRAY VERONICA UD PRN for PRN (if needed) Arformoterol Tartrate (Brovana), 15 MCG INH BID Aclidinium [place] (Tudorza Pressair), 1 PUFF INH BID Albuterol (Ventolin Hfa), 2 PUFFS INH QID PRN for Shortness of Breath (if needed ) Albuterol Sulf (Proventil 0.083% 2.5MG/3ML), 2.5 MG INH Q4H PRN for SOB/Wheezing (if needed) - Take the following medications as scheduled the night before surgery: Simvastatin (Zocor), 80 MG PO HS Metformin Hcl (Glucophage), 1,000 MG PO BID Home O2 Therapy (Oxygen), 2 LITER NA HS Furosemide (Lasix), 20 MG PO DAILY PRN for FLUID (if needed) Fluticasone Propionate (Nasal) (Flonase Allergy Relief), 1 SPRAY VERONICA UD PRN for PRN (if needed) Ferrous Sulfate (Iron (Ferrous Sulfate)), Unknown Dose PO BID Arformoterol Tartrate (Brovana), 15 MCG INH BID Aclidinium [place] (Tudorza Pressair), 1 PUFF INH BID Albuterol (Ventolin Hfa), 2 PUFFS INH QID PRN for Shortness of Breath (if needed ) Albuterol Sulf (Proventil 0.083% 2.5MG/3ML), 2.5 MG INH Q4H PRN for SOB/Wheezing (if needed) If you have any questions please call us at [phone] or [phone] or [phone]
[2017-11-07 10:21] LABS: BASO % 0.3 %; BASO ABS # 0.04 K/uL (0-0.2); EOS % 0.9 %; EOS ABS # 0.11 K/uL (0-0.5); HEMATOCRIT 34.3 % (42-52); HEMOGLOBIN 11.3 g/dL (14.0-18.0); IG# 0.49 K/uL (0.00-0.02); LYMPH % 17.3 %; LYMPH ABS # 2.01 K/uL (1.2-3.4); MEAN CELL VOLUME 88.2 fL (80-100); MEAN CORPUSCULAR HGB CONC 32.9 g/dl (32-36); MEAN PLATELET VOLUME 9.5 fL (7.4-10.4); MONO % 10.6 %; MONO ABS # 1.23 K/uL (0.11-0.59); NEUT % 66.7 %; NEUT ABS # 7.71 K/uL (1.4-6.5); PLATELET COUNT 277 K/uL (130-400); RED CELL DISTRIBUTION WIDTH CV 18.6 % (11.5-14.5); RED CELL DISTRIBUTION WIDTH SD 60.2 fL (36.4-46.3); WHITE BLOOD COUNT 11.59 K/uL (4.8-10.8)
[2017-11-07 11:49] LABS: CALCIUM 9.6 mg/dl (8.5-10.1); CREATININE 1.08 mg/dl (0.60-1.40); POTASSIUM 3.5 mmol/L (3.5-5.1)
[~2017-11-15] VITALS: Ht 182.9 cm; Wt 81.5 kg
[~2017-11-15] MED LIST changes: -AFRINWC; +ALBUT/IPRATROP 3MG/0.5MG NEB 3 ML VIAL INH ONE; +ATROPINE SULFATE 0.1 MG/ML 5ML SYR IV PRN; +CEFAZOLIN 2000MG IV PUSH 15 ML IV SCH; +Cysto-Conray II 17.2% 250ML BOTTLE ONE; +DEXAMETHASONE SOD INJ 4 MG/ML VIAL ONE; +EpHEDrine SULFATE INJ 50 MG/ML AMP IV PRN; +FENTANYL CITRATE INJ 50 MCG/1 ML 2 ML VIAL IV PRN; +FENTANYL CITRATE INJ 50 MCG/1 ML 2 ML VIAL ONE; -GFNSR600 PO; +HYDR-3419 PO; +HYDROCORTISONE SOD SUCCINATE 100 MG/2 ML VIAL ONE; +HYDROmorphone INJ 1 MG/ML SYR IV PRN; +LACTATED RINGER'S 1000ML 1,000 ML IV SCH; +LIDOCAINE HCL 2% 2 ML VIAL (20MG/ML) ONE; -MAGN400T6 PO; +MIDAZOLAM HCL 1 MG/ML 2ML VIAL ONE; -MOME6000 NAE; +NITR1CAP33 PO; -NYSS5 PO; +ONDANSETRON INJ 2 MG/ML 2 ML VIAL IV PRN; +ONDANSETRON INJ 2 MG/ML 2 ML VIAL ONE; +PHENYLEPHRINE 100MCG/ML 5ML SYR IV PRN; +PHENYLEPHRINE 100MCG/ML 5ML SYR ONE; +PROPOFOL IV EMULSION 10 MG/ML 20 ML VIAL IV ONE
[2017-11-15 08:14] VITALS: BP 147/72; PULSE 80; TEMP 36.6; O2SAT 95; Ht 182.9 cm; Wt 81.5 kg
--- NOTE | 2017-11-15 08:14 | DIAGNOSTIC IMAGING REPORT ---
KUB CLINICAL HISTORY: Nephrolithiasis. FINDINGS: 2 AP supine abdominal radiographs are compared to study dated 10/30/2017 and correlated with abdominal CT dated 03/15/2017. There is a nonobstructed abdominal bowel gas pattern. Numerous surgical clips are seen in the pelvis. There is unchanged position of a 1.5 cm distal left ureteral stone as compared to 10/30/2017. No additional calculi are clearly seen projecting over either kidney. The skeletal structures are osteopenic. Lumbosacral spondylosis is noted. IMPRESSION: 1. There is unchanged position of a 1.5 cm distal left ureteral calculus as compared to 10/30/2017. 2. No additional renal calculi are clearly identified. Electronically signed by: Fausto Donovan M.D. 11/15/2017 8:12 AM Dictated Date/Time: 11/15/2017 8:11 AM
[2017-11-15 09:26] VITALS: PULSE 76; O2SAT 93
--- NOTE | 2017-11-15 10:05 | History & Physical Bridge Note ---
H&P Re-Evaluation Bridge Note: I have examined the patient, reviewed the History & Physical and in the interval since the performance of the History & Physical I have noted the following changes of clinical significance: No changes noted
--- NOTE | 2017-11-15 11:58 | [facility] Post Operative Brief Note ---
Immediate Operative Summary Operative Date Nov 15, 2017. Pre-Operative Diagnosis Left Ureteric Stone Post-Operative Diagnosis Same Procedure(s) Performed Cystoscopy, Left Ureteroscopy, Laser Lithotripsy, Left Ureteral Stent Insertion Surgeon Dr. 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 Left Ureteral Stones for chemical analysis Drains 5 by 26 stent Anesthesia Type General Complication(s) none Disposition Disposition: Recovery Room / PACU
--- NOTE | 2017-11-15 12:11 | Discharge Instructions ---
Discharge Instructions Date of Service Nov 15, 2017. Visit Reason for Visit: Stones Discharge Discharge Diagnosis / Problem: post op l ureteroscopy and l stent Discharge Goals Goal(s): Decrease discomfort, Improve function, Increase independence, Improve disease control Activity Recommendations Activity Limitations: resume your previous activity Anesthesia . Post Anesthesia Instructions: If you have had General Anesthesia or IV Sedation: * Do not drive today. * Resume driving when surgeon permits. * Do not make important decisions or sign legal documents today. * Call surgeon for: 1. Temperature elevations greater than 101 degrees F. 2. Uncontrollable pain. 3. Excessive bleeding. 4. Persistent nausea and vomiting. 5. Medication intolerance (nausea, vomiting or rash). * For nausea and vomiting use only clear liquids such as: tea, soda, bouillon until nausea subsides, then gradually increase diet as tolerated. * If you have any concerns or questions, call your surgeon's office. If physician is unavailable and it is an emergency, call 911 or go to the nearest emergency room. . Diet Recommendations Recommended Home Diet: no limitations Procedures Procedures Performed: Cystoscopy, Left Ureteroscopy, Laser Lithotripsy, Left Ureteral Stent Insertion Pending Studies Studies pending at discharge: no Medical Emergencies . Who to Call and When: Medical Emergencies: If at any time you feel your situation is an emergency, please call 911 immediately. . Non-Emergent Contact Non-Emergency issues call your: Urologist Call Non-Emergent contact if: temperature is above 101 . . "Provider Documentation" section prepared by Isra Aleman. .
--- NOTE | 2017-11-15 12:40 | Anesthesiology Progress Note ---
Anesthesia Post Op Note Date & Time Nov 15, 2017 at 12:38 Vital Signs Pain Intensity: 0 Vital Signs Past 12 Hours Date Time Temp Pulse Resp B/P (MAP) Pulse Ox O2 Delivery O2 Flow Rate FiO2 11/15/17 12:30 75 18 141/66 93 Room Air 11/15/17 12:20 77 12 146/80 100 Oxymask 10 11/15/17 12:10 76 18 146/77 100 Oxymask 10 11/15/17 12:01 36.8 81 16 156/84 99 Oxymask 10 11/15/17 09:26 76 93 Room Air 11/15/17 08:14 36.6 80 20 147/72 (97) 95 Room Air Notes Mental Status: alert / awake / arousable, participated in evaluation Pt Amnestic to Procedure: Yes Nausea / Vomiting: adequately controlled Pain: adequately controlled Airway Patency, RR, SpO2: stable & adequate BP & HR: stable & adequate Hydration State: stable & adequate Anesthetic Complications: no major complications apparent Pt awake, doing well, no complaints. VSS. A small bruise on top of upper lip noted from the adhesives used to secure LMA. No laceration or skin tears noted. Pt denies any pain on the area. Explained to patient as of the cause of it. Pt understands and has no complaints.
[2017-11-15 12:45] VITALS: BP 137/66; PULSE 77; TEMP 37; O2SAT 91
[2017-11-15 13:15] VITALS: BP 136/63; PULSE 81; O2SAT 93
[2017-11-15 13:45] VITALS: BP 149/73; PULSE 87; TEMP 36.5; O2SAT 94
--- NOTE | 2017-11-15 14:02 | DIAGNOSTIC IMAGING REPORT ---
INTRAOPERATIVE RADIOGRAPHS CLINICAL HISTORY: Left-sided lithotripsy and stent placement procedure. Fluoroscopy time: 44 seconds. FINDINGS: 11 spot fluoroscopic views of the left abdomen from a lithotripsy and ureteral stent placement procedure are presented. Correlation is made with abdominal CT dated 03/15/2017. The initial image shows a radiodense calculus projecting over the left vesicoureteral junction. There is cannulation of the left ureter. There is moderate left-sided hydronephrosis identified. The final image shows the proximal end of a ureteral stent being deployed. This projects over the left renal pelvis. IMPRESSION: Intraoperative images from a left-sided lithotripsy and ureteral stent placement procedure as above. Electronically signed by: Fausto Donovan M.D. 11/15/2017 2:01 PM Dictated Date/Time: 11/15/2017 1:58 PM
--- NOTE | 2017-11-15 14:59 | OPERATIVE REPORT ---
DATE OF OPERATION: 11/15/2017 PREOPERATIVE DIAGNOSIS: Distal right ureteral stone. POSTOPERATIVE DIAGNOSIS: Same. PROCEDURE PERFORMED: Left ureteroscopy, laser lithotripsy and left stent placement. SURGEON: Dr. Isra Aleman. INDICATIONS: The patient is a 77-year-old male with a longstanding left ureteral stone that presents now for definitive treatment. DESCRIPTION OF THE PROCEDURE: The patient was taken to the cysto suite, had Venodyne stockings placed. He was given preoperative antibiotics and was given general anesthesia and placed in dorsal lithotomy position. He was prepped and draped in usual sterile fashion. A 22-Persian scope was passed per urethra. The patient does not have a prostate after having a radical prostatectomy. There is no significant stricture or bladder neck contracture. The left ureteral orifice was not erythematous. The stone could be seen in approximately 1-2 cm proximal to this. An attempt was made after a dual flex guidewire was passed beyond the stone into the renal pelvis under fluoroscopy to pass an ureteroscope, but there was a narrowing which precluded this. So, a 15 Persian 4 cm balloon was passed over the wire to dilate the stricture. The balloon was placed just at the distal aspect of the stone and inflated for 2 minutes to about 10 atmospheres which was enough to dilate that narrowed area. Once this was done, the balloon was deflated. The wire was left in place. The cystoscope was removed and the ureteroscope was replaced up to the stone. The stone was then fragmented into multiple pieces, the largest 5-6 pieces were removed with a 3-prong grasper into a cup. The 5-6 multiple fragments were flushed from where the stone was out of the ureter and then several of the larger fragments that were remaining were placed in the bladder. At the end of the procedure, there were many fragments in the bladder. There were 15-20 small fragments left in the ureter, but too small to wear that removing and that they would pass easily on their own when the stent was removed. There was no significant damage seen to the ureter, although there was some edema at where the stone was impacted. The wire was left in place. Fluoroscopy was done did not see any other visible fragments. A 5 Persian 26 cm stent was passed after some contrast was placed into the renal pelvis to confirm position of the wire. Once the proximal portion stent was in place, the wire was removed leaving the distal curve in the bladder. The bladder was emptied and the patient was transferred to the recovery room in stable condition. I attest to the content of the Intraoperative Record and any orders documented therein. Any exception s are noted below.
== END | disposition home or self-care (01) ==
LOC: C.ACU 07:03
PROVIDERS: ATTEND Urology
DX: N20.1 Calculus of ureter (principal); J44.9 Chronic obstructive pulmonary disease, unspecified; G47.33 Obstructive sleep apnea (adult) (pediatric); I48.92 Unspecified atrial flutter; I25.10 Atherosclerotic heart disease of native coronary artery without angina pectoris; I50.30 Unspecified diastolic (congestive) heart failure; E11.9 Type 2 diabetes mellitus without complications; K21.9 Gastro-esophageal reflux disease without esophagitis; E78.5 Hyperlipidemia, unspecified; M85.80 Other specified disorders of bone density and structure, unspecified site; Z85.46 Personal history of malignant neoplasm of prostate; J45.909 Unspecified asthma, uncomplicated; F32.9 Major depressive disorder, single episode, unspecified; Z79.899 Other long term (current) drug therapy; Z98.890 Other specified postprocedural states; Z80.8 Family history of malignant neoplasm of other organs or systems; Z82.49 Family history of ischemic heart disease and other diseases of the circulatory system; Z82.3 Family history of stroke; Z88.1 Allergy status to other antibiotic agents; Z88.2 Allergy status to sulfonamides; Z88.8 Allergy status to other drugs, medicaments and biological substances

== ENCOUNTER → 2017-11-21 | Outpatient (CLI) | payer BC ==
[~2017-11-21] MED LIST changes: -ALBUT/IPRATROP 3MG/0.5MG NEB 3 ML VIAL INH ONE; +ASCO500T16 PO; -ATROPINE SULFATE 0.1 MG/ML 5ML SYR IV PRN; -CEFAZOLIN 2000MG IV PUSH 15 ML IV SCH; +CHOL2000 PO; -Cysto-Conray II 17.2% 250ML BOTTLE ONE; -DEXAMETHASONE SOD INJ 4 MG/ML VIAL ONE; -EpHEDrine SULFATE INJ 50 MG/ML AMP IV PRN; -FENTANYL CITRATE INJ 50 MCG/1 ML 2 ML VIAL IV PRN; -FENTANYL CITRATE INJ 50 MCG/1 ML 2 ML VIAL ONE; +FERR1TAB62 PO; -HYDROCORTISONE SOD SUCCINATE 100 MG/2 ML VIAL ONE; -HYDROmorphone INJ 1 MG/ML SYR IV PRN; -LACTATED RINGER'S 1000ML 1,000 ML IV SCH; -LIDOCAINE HCL 2% 2 ML VIAL (20MG/ML) ONE; +MAGN400T6 PO; -MIDAZOLAM HCL 1 MG/ML 2ML VIAL ONE; -ONDANSETRON INJ 2 MG/ML 2 ML VIAL IV PRN; -ONDANSETRON INJ 2 MG/ML 2 ML VIAL ONE; -PHENYLEPHRINE 100MCG/ML 5ML SYR IV PRN; -PHENYLEPHRINE 100MCG/ML 5ML SYR ONE; -PRD/1 PO; -PROPOFOL IV EMULSION 10 MG/ML 20 ML VIAL IV ONE
[2017-11-21 17:24] LABS: BASO % 0.6 %; BASO ABS # 0.06 K/uL (0-0.2); EOS % 1.9 %; HEMATOCRIT 39.2 % (42-52); HEMOGLOBIN 12.6 g/dL (14.0-18.0); IG# 0.47 K/uL (0.00-0.02); LYMPH % 7.3 %; LYMPH ABS # 0.77 K/uL (1.2-3.4); MEAN CELL VOLUME 92.9 fL (80-100); MEAN CORPUSCULAR HEMOGLOBIN 29.9 pg (25-34); MEAN CORPUSCULAR HGB CONC 32.1 g/dl (32-36); MEAN PLATELET VOLUME 10.6 fL (7.4-10.4); MONO % 5.5 %; MONO ABS # 0.58 K/uL (0.11-0.59); NEUT % 80.2 %; NEUT ABS # 8.47 K/uL (1.4-6.5); PLATELET COUNT 240 K/uL (130-400); RED CELL DISTRIBUTION WIDTH CV 17.6 % (11.5-14.5); RED CELL DISTRIBUTION WIDTH SD 59.7 fL (36.4-46.3); WHITE BLOOD COUNT 10.55 K/uL (4.8-10.8)
--- NOTE | 2017-11-21 17:30 | DIAGNOSTIC IMAGING REPORT ---
CHEST 2 VIEWS ROUTINE HISTORY: K52.9 Chronic diarrhea of unknown origin [id number] COMPARISON: Chest 07/04/2017. FINDINGS: Cardiac silhouette is borderline enlarged. The left lung is clear. Stable volume loss within the right hemithorax and blunting of the right lateral costophrenic sulcus. This could be due to scarring or a trace right pleural effusion. Linear scarlike densities at the right lung base are again noted. No pneumothorax. No new focal lung consolidations. No evidence for pulmonary edema. IMPRESSION: No significant change compared to the prior study. No acute process. Chronic changes within the right hemithorax are again noted. Electronically signed by: Sandor Murdock M.D. 11/21/2017 5:29 PM Dictated Date/Time: 11/21/2017 5:25 PM
[2017-11-21 18:01] LABS: ALBUMIN 3.5 gm/dl (3.4-5.0); ALT/SGPT 33 U/L (12-78); BLOOD UREA NITROGEN 18 mg/dl (7-18); CALCIUM 9.6 mg/dl (8.5-10.1); CARBON DIOXIDE 27 mmol/L (21-32); GLUCOSE 294 mg/dl (70-99); POTASSIUM 4.1 mmol/L (3.5-5.1); SODIUM 137 mmol/L (136-145)
[2017-11-21 18:12] LABS: ALKALINE PHOSPHATASE 67 U/L (45-117); AST/SGOT 14 U/L (15-37); TOTAL PROTEIN 6.9 gm/dl (6.4-8.2)
== END | disposition home or self-care (01) ==
LOC: C.RAD1850 16:19
PROVIDERS: ATTEND Physician Assistant
DX: K52.9 Noninfective gastroenteritis and colitis, unspecified (principal); M85.80 Other specified disorders of bone density and structure, unspecified site

== ENCOUNTER 2017-11-22 15:52 | Observation (INO) | payer BC ==
[~2017-11-22] VITALS: Ht 182.9 cm; Wt 76.3 kg
[~2017-11-22 15:52] MED LIST changes: -ASCO500T16 PO; -CHOL2000 PO; -FERR1TAB62 PO; -MAGN400T6 PO
[2017-11-22] MEDS ORDERED: ASPIRIN 81 MG CHEW PO STA (16:19)
--- NOTE | 2017-11-22 16:42 | DIAGNOSTIC IMAGING REPORT ---
SINGLE VIEW CHEST CLINICAL HISTORY: Atypical chest pain. FINDINGS: An AP, portable, upright chest radiograph is compared to study dated 11/21/2017. Correlation is made with chest CT dated 04/04/2017. The examination is degraded by portable technique and patient rotation. The heart is enlarged and there is atherosclerotic calcification of the thoracic aorta. The pulmonary vasculature is noncongested. There is mild chronic elevation of right hemidiaphragm. A trace pleural effusion is identified. There is no airspace consolidation typical for pneumonia. No pneumothorax is seen. The skeletal structures are osteopenic. Degenerative change is noted in the shoulders and thoracic spine. IMPRESSION: 1. Cardiomegaly with no acute cardiopulmonary abnormality. 2. A trace right pleural effusion is again noted. Electronically signed by: Fausto Donovan M.D. 11/22/2017 4:41 PM Dictated Date/Time: 11/22/2017 4:40 PM
[2017-11-22 16:44] LABS: BASO % 0.4 %; BASO ABS # 0.04 K/uL (0-0.2); EOS % 1.6 %; EOS ABS # 0.17 K/uL (0-0.5); HEMATOCRIT 37.8 % (42-52); HEMOGLOBIN 12.5 g/dL (14.0-18.0); IG# 0.48 K/uL (0.00-0.02); LYMPH % 8.6 %; LYMPH ABS # 0.92 K/uL (1.2-3.4); MEAN CELL VOLUME 91.3 fL (80-100); MEAN CORPUSCULAR HEMOGLOBIN 30.2 pg (25-34); MEAN CORPUSCULAR HGB CONC 33.1 g/dl (32-36); MONO % 5.7 %; MONO ABS # 0.61 K/uL (0.11-0.59); NEUT % 79.2 %; NEUT ABS # 8.43 K/uL (1.4-6.5); NUCLEATED RED BLOOD CELL ABS 0.02 K/uL (0-0); PLATELET COUNT 241 K/uL (130-400); RED CELL DISTRIBUTION WIDTH CV 17.5 % (11.5-14.5); RED CELL DISTRIBUTION WIDTH SD 58.6 fL (36.4-46.3); WHITE BLOOD COUNT 10.65 K/uL (4.8-10.8)
[2017-11-22 17:09] LABS: BLOOD UREA NITROGEN 17 mg/dl (7-18); CALCIUM 9.6 mg/dl (8.5-10.1); CARBON DIOXIDE 22 mmol/L (21-32); CREATININE 1.23 mg/dl (0.60-1.40); GLUCOSE 303 mg/dl (70-99); POTASSIUM 4.4 mmol/L (3.5-5.1); SODIUM 135 mmol/L (136-145)
[2017-11-22] MEDS ORDERED: MAGN400T6 PO (17:11)
[2017-11-22] MEDS ORDERED: FERR1TAB62 PO (17:11)
[2017-11-22] MEDS ORDERED: ASCO500T16 PO (17:11)
[2017-11-22] MEDS ORDERED: CHOL2000 PO (17:11)
[2017-11-22 17:27] LABS: CKMB 3.1 ng/ml (0.5-3.6)
[2017-11-22] MEDS ORDERED: MAGNESIUM SULFATE 1GM / D5W 1 GM BAG IV STA (17:30)
[2017-11-22 17:47] VITALS: O2SAT 95; BMI 23.9
[2017-11-22] MEDS ORDERED: FLUTICASONE PROPIONATE NA SPR 16 GM BTL NAE PRN (18:45)
[2017-11-22] MEDS ORDERED: FUROSEMIDE 20 MG TAB PO PRN (18:45)
[2017-11-22] MEDS ORDERED: ACETAMINOPHEN 325 MG TAB PO PRN (18:45)
[2017-11-22] MEDS ORDERED: POLYETHYLENE (MIRALAX) 17 GM PACK PO PRN (18:45)
--- NOTE | 2017-11-22 19:25 | History and Physical ---
History & Physical Date & Time of Service: Nov 22, 2017 at 18:16 Chief Complaint: Abnormal Diagnostic Tests, Sent By [facility] Primary Care Physician: Artis Gunderson M.D. History of Present Illness Over the weekend, Mr. Gibson developed cough, wheeze and diarrhea. The diarrhea has improved however the cough is about the same and he is wheezing especially in the morning and at night. No sputum production. No fever, aches or chills. No chest pain, but he does feel heaviness in chest. It came on while he was sitting at the table and went away on its own. A nebulizer generally takes this pressure away which it did this morning. He went to Constantine Noriega's office and had an EKG which showed EKG changes so he was sent to the ED. He does not particularly feel sob or chest heaviness with exertion except when he is bending over. He feels like if he relaxed, he would just fall over when bending. he had a stone removed with Dr. Aleman. He did take some antibiotics for a week since the surgery. He checks his blood sugar in the morning which has been 115-150 ROS Constitutional: no chills, aches, sweats or fever Respiratory: no sob,cough, sputum, or wheezing Cardiac:see HPI GI: see HPI : no dysuria or hesitancy Extremities: no joint pain or weakness Skin: no rash All other systems reviewed and negative Pmhx: COPD, a. fib with no anticoagulation, DM II, Past Medical/Surgical History Medical Problems: (1) Acute asthmatic bronchitis (2) Acute GI bleeding (3) Acute on chronic diastolic (congestive) heart failure (4) Anemia (5) Anticoagulated (6) Atrial flutter (7) Bronchitis (8) Bronchitis (9) Calculus of right kidney (10) Chest tightness (11) COPD (chronic obstructive pulmonary disease) with acute bronchitis (12) COPD exacerbation (13) COPD exacerbation (14) COPD exacerbation (15) Diabetes (16) Fall (17) Heart disease (18) Heart murmur (19) Hydronephrosis with urinary obstruction due to renal calculus (20) Hyperglycemia (21) kidney colic, nish kiendy stones (22) Kidney stone (23) Laceration of upper arm, right, without mention of complication (24) Leukocytosis (25) Oral candidiasis (26) Pleural effusion (27) Pneumonia (28) Renal colic (29) Respiratory failure (30) Respiratory failure (31) Respiratory failure (32) Right flank pain (33) Right flank pain (34) Right rotator cuff tear (35) Scalp laceration (36) Scalp laceration (37) Symptomatic anemia (38) Ureterolithiasis (39) Weakness Family History FHx: cancer FHx: heart disease FHx: lung disease non contributory Social History Smoking Status: Former Smoker (quit 50 years ago) Smokeless Tobacco Use: No Alcohol Use: none Drug Use: none Marital Status: Housing status: lives with significant other 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 VERIFIED ANAPHYLAXIS Formoterol (Verified Allergy, Intermediate, RASH, 11/22/17) LISTED UNDER MD ORDERS, PT. VERIFIED RASH ALLERGY Metoprolol (Verified Allergy, Intermediate, RASH, 11/22/17) Sulfa Antibiotics (Verified Allergy, Intermediate, severe red rash, 11/22/17 ) Moxifloxacin (Verified Allergy, Unknown, throat swelling, 11/22/17) Ofloxacin (Verified Allergy, Unknown, SWELLING AROUND FACE, 11/22/17) Home Medications Scheduled Aclidinium [place] (Tudorza Pressair), 1 PUFF INH DAILY Arformoterol Tartrate (Brovana), 15 MCG INH BID Ascorbic Acid (Ascorbic Acid), 500 MG PO TIDM Cholecalciferol (Vitamin D3), 1 CAP PO DAILY Cyanocobalamin (Vitamin B-12), 1,000 MCG PO QAM Escitalopram (Lexapro), 10 MG PO QAM Ferrous Sulfate (Ferrous Sulfate), 1 TAB PO TIDM Glimepiride (Glimepiride), 2 MG PO QAM Glucosamine-Chondroitin (Osteo Bi-Flex Regular Str), 1 TAB PO BID Home O2 Therapy (Oxygen), 2 LITER NA HS Levothyroxine Sodium (Levothyroxine Sodium), 75 MCG PO QAM Magnesium Oxide (Mag-Ox), 400 MG PO BID Metformin Hcl (Glucophage), 1,000 MG PO BID Multiple Vitamins W/ Minerals (Centrum), 1 TABLET PO QAM Omeprazole (Omeprazole), 20 MG PO Q2D Prednisone (Prednisone), 10 MG PO QAM Simvastatin (Zocor), 80 MG PO HS Scheduled PRN Albuterol (Ventolin Hfa), 2 PUFFS INH QID PRN for Shortness of Breath Albuterol Sulf (Proventil 0.083% 2.5MG/3ML), 2.5 MG INH Q4H PRN for SOB/Wheezing Fluticasone Propionate (Nasal) (Flonase Allergy Relief), 1 SPRAY VERONICA UD PRN for PRN Furosemide (Lasix), 20 MG PO DAILY PRN for FLUID Physical Exam Vital Signs Date Time Temp Pulse Resp B/P (MAP) Pulse Ox O2 Delivery O2 Flow Rate FiO2 11/22/17 17:52 77 20 134/59 95 Room Air 11/22/17 17:47 95 Room Air 11/22/17 16:35 87 11/22/17 16:09 36.3 89 18 116/67 95 Room Air General: no distress Eyes: normal inspection, PERLL Respiratory: chest non tender, left expiratory wheezes throughout lung art, right side diminished, no respiratory distress, no accessory muscle use Cardiac: regular rate and rhythm, no rub or gallop, no murmur, no edema, no jvd GI/: active bowel sounds, no abd pain or tenderness, soft, non distended Extremities: normal range of motion, normal strength, non tender Neuro/Psych: alert and oriented x 3, normal mood and affect Skin: normal color, dry Diagnostics Laboratory Results Results Past 24 Hours Test 11/22/17 16:35 Range/Units White Blood Count 10.65 4.8-10.8 K/uL Red Blood Count 4.14 4.7-6.1 M/uL Hemoglobin 12.5 14.0-18.0 g/dL Hematocrit 37.8 42-52 % Mean Corpuscular Volume 91.3 80-100 fL Mean Corpuscular Hemoglobin 30.2 25-34 pg Mean Corpuscular Hemoglobin Concent 33.1 32-36 g/dl Platelet Count 241 130-400 K/uL Mean Platelet Volume 10.0 7.4-10.4 fL Neutrophils (%) (Auto) 79.2 % Lymphocytes (%) (Auto) 8.6 % Monocytes (%) (Auto) 5.7 % Eosinophils (%) (Auto) 1.6 % Basophils (%) (Auto) 0.4 % Neutrophils # (Auto) 8.43 1.4-6.5 K/uL Lymphocytes # (Auto) 0.92 1.2-3.4 K/uL Monocytes # (Auto) 0.61 0.11-0.59 K/uL Eosinophils # (Auto) 0.17 0-0.5 K/uL Basophils # (Auto) 0.04 0-0.2 K/uL RDW Standard Deviation 58.6 36.4-46.3 fL RDW Coefficient of Variation 17.5 11.5-14.5 % Immature Granulocyte % (Auto) 4.5 % Immature Granulocyte # (Auto) 0.48 0.00-0.02 K/uL Nucleated RBC Absolute Count (auto) 0.02 0-0 K/uL Nucleated Red Blood Cells % 0.2 % Sodium Level 135 136-145 mmol/L Potassium Level 4.4 3.5-5.1 mmol/L Chloride Level 101 98-107 mmol/L Carbon Dioxide Level 22 21-32 mmol/L Anion Gap 12.0 3-11 mmol/L Blood Urea Nitrogen 17 7-18 mg/dl Creatinine 1.23 0.60-1.40 mg/dl Est Creatinine Clear Calc Drug Dose 53.5 ml/min Estimated GFR () 64.3 Estimated GFR (Non- 55.5 BUN/Creatinine Ratio 14.1 10-20 Random Glucose 303 70-99 mg/dl Calcium Level 9.6 8.5-10.1 mg/dl Magnesium Level 1.4 1.8-2.4 mg/dl Total Creatine Kinase 94 39-308 U/L Creatine Kinase MB 3.1 0.5-3.6 ng/ml Creatine Kinase MB Ratio 3.3 0-3.0 Troponin I < 0.015 0-0.045 ng/ml Beta-Hydroxybutyric Acid 2.78 0.2-2.81 mg/dL Diagnostic Radiology [~ rep ct add3]] SINGLE VIEW CHEST CLINICAL HISTORY: Atypical chest pain. FINDINGS: An AP, portable, upright chest radiograph is compared to study dated 11/21/2017. Correlation is made with chest CT dated 04/04/2017. The examination is degraded by portable technique and patient rotation. The heart is enlarged and there is atherosclerotic calcification of the thoracic aorta. The pulmonary vasculature is noncongested. There is mild chronic elevation of right hemidiaphragm. A trace pleural effusion is identified. There is no airspace consolidation typical for pneumonia. No pneumothorax is seen. The skeletal structures are osteopenic. Degenerative change is noted in the shoulders and thoracic spine. IMPRESSION: 1. Cardiomegaly with no acute cardiopulmonary abnormality. 2. A trace right pleural effusion is again noted. Electronically signed by: Fausto Donovan M.D. EKG ST elevations in leads II and AVF without reciprocal depression, NSR Impression Assessment and Plan Mr. Gibson is a 77 year old man here with EKG changes EKG changes - admit obs tele - patient has questionable st elevations in his inferior leads without reciprocal depression - cannot rule out inferior [place]. Per discussion with ED doc , Dr. Hwang evaluated and did not feel the patient needed to be taken to lab coordinator at this time. Will ask nightshift to check next trop and if it trends upward to contact cards for re-eval of need for intervention - trend troponins - initial troponin wnl - echo - consult cardiology DMII - consult pharmacy - patient does not take insulin, will hold po DMII meds and start lantus and sliding scale to be managed by pharmacy - A1c - bsgs AC & HS COPD exacerbation - start prednisone taper - 40 mg today and tomorrow and then can titrate down - Duoneb - continue home inhalers - patient wears 2L NC chronically Hypomagnesemia - 1.4 - replaced with 2g IV - repeat lab am DNR Heparin subq, scds Resident Physician Supervision Note: I was present with Elder Braga PLUMBING MANAGER during the history and exam. I discussed the case with the PLUMBING MANAGER and agree with the findings and plan as documented in the note. Any exceptions or clarifications are listed here: 77 y/o M DM II, COPD - presenting with SOB, chest heaviness - initial EKG could not R/O an inferior [place] - pt was evaluated by cardio on arrival OE AAO x 3 S1,2 R CTAB NT, ND No CCE P: CP - full dose anticoagulation - cardio to follow, ASA, statin, Bblocker as tolerated COPD - no current evidence of exacerbation DMII - SS Documented By: Cooper Kedem Advanced Directives Existing Advance Directive: No Existing Living Will: No Existing Power of Sql Report Analyst: No Existing Health Care Proxy: No Resuscitation Status DNR VTE Prophylaxis Will order VTE Prophylaxis: Yes
[2017-11-22] MEDS ORDERED: PHARMACY GLYCEMIC MGMT CONSULT PRN (19:55)
[2017-11-22] MEDS ORDERED: MoRPHine SULFATE 2 MG/ML CARP IV PRN (20:00)
[2017-11-22] MEDS ORDERED: NITROGLYCERIN 0.4 MG SL PER TAB CHARGE SL PRN (20:00)
[2017-11-22] MEDS ORDERED: GLUCOSE 10 TABS/TUBE PO PRN (20:15)
[2017-11-22] MEDS ORDERED: DEXTROSE 50% 50 ML SYR IV PRN (20:15)
[2017-11-22] MEDS ORDERED: GLUCOSE 40% GEL 15 GM TUBE PO PRN (20:15)
[2017-11-22] MEDS ORDERED: GLUCAGON FOR INJ 1 MG VIAL SQ PRN (20:15)
[2017-11-22] MEDS ORDERED: INSULIN HUMAN REGULAR PER UNIT 8 UNITS in SYRINGE 7.92 ML IV ONE (20:30)
[2017-11-22 20:46] VITALS: BP 129/69; PULSE 84; TEMP 36.5; O2SAT 95
[2017-11-22] MEDS ORDERED: HEPARIN SOD 5000 UNIT/0.5 ML CARP SQ SCH (21:00)
[2017-11-22] MEDS ORDERED: INSULIN GLARGINE SOLOSTAR 100 UNITS/ML 3 ML PEN SC SCH (21:00)
[2017-11-22] MEDS ORDERED: NON-FORMULARY MEDICATION (Home O2 Therapy (Oxygen) 2 LITER) SCH (21:00)
[2017-11-22] MEDS: ARFORMOTEROL TART 15MCG/2ML VIAL INH SCH (21:00)
[2017-11-22] MEDS ORDERED: SIMVASTATIN 80 MG TAB PO SCH (21:00)
[2017-11-22] MEDS: ALBUT/IPRATROP 3MG/0.5MG NEB 3 ML VIAL INH SCH (21:03)
[2017-11-22] MEDS ORDERED: MAGNESIUM SULFATE 1GM / D5W 1 GM in PREMIXED IN D5W 100 ML IV SCH (21:30)
[2017-11-22] MEDS ORDERED: ENOXAPARIN 80 MG/0.8 ML SYR SQ ONE (21:30)
[2017-11-22] MEDS ORDERED: IV FLUIDS COMPLETED PRN (21:45)
[2017-11-22] MEDS: MAGNESIUM OXIDE 400 MG TAB PO SCH (21:57)
[2017-11-22] MEDS: INSULIN ASPART 100 UNITS/ML 3 ML PEN SC SCH (22:01)
--- NOTE | 2017-11-22 22:24 | EMERGENCY ROOM VISIT NOTE ---
History Report prepared by Triston: Yahir Paz Under the Supervision of: Dr. Mathew Kendall D.O. First contact with patient: 16:04 Chief Complaint: ABNORMAL DIAGNOSTIC TESTING Stated Complaint: ABNORMAL DIAGNOSTIC TESTS, SENT BY [facility] History of Present Illness The patient is a 77 year old male with a history of COPD, diabetes, hyperlipidemia, and atrial fibrillation who presents to the Emergency Room with complaints of persistent fatigue over the past few days. The patient has been noted to be sleeping all the time over the past few days. Per the patient's , the patient was seen at his family doctor's office prior to arrival today, and was told that his magnesium was "off", and that he had an abnormal EKG, so he was sent here for evaluation. The patient states that he has not felt well the past few days, with intermittent chest tightness and shortness of breath. He notes that he does get some similar chest tightness due to his COPD. The patient says that exertion sometimes brings on the chest tightness. He notes that he has had some diarrhea over the past few days. He denies any arm or jaw pain, abdominal pain, new cough, fevers, nausea, vomiting, or pain or burning with urination. Per the patient's , the patient just had a stent placed for a kidney stone removal. He does not have a notable smoking history. Source of History: patient, spouse/significant other Onset: Past few days Position: other (global) Symptom Intensity: sleeping all day Quality: other (fatigue) Timing: other (persistent) Associated Symptoms: + SOB, + diarrhea, No fevers, No cough, No nausea, No vomiting, No abdominal pain, No urinary symptoms Note: Associated symptoms: Chest tightness intermittently. Denies arm or jaw pain. Review of Systems See HPI for pertinent positives & negatives. A total of 10 systems reviewed and were otherwise negative. Past Medical & Surgical Medical Problems: (1) Acute electrocardiogram changes (2) Acute on chronic diastolic (congestive) heart failure (3) Anemia (4) Bronchitis (5) Diabetes (6) Heart disease (7) Heart murmur (8) kidney colic, nish kiendy stones (9) Oral candidiasis (10) Pneumonia (11) Weakness Family History FHx: cancer FHx: heart disease FHx: lung disease Social History Smoking Status: Former Smoker Alcohol Use: occasionally Drug Use: none Marital Status: Housing Status: lives with significant other Occupation Status: retired Current/Historical Medications Scheduled Aclidinium Mallory (Tudorza Pressair), 1 PUFF INH DAILY Arformoterol Tartrate (Brovana), 15 MCG INH BID Ascorbic Acid (Ascorbic Acid), 500 MG PO TIDM Cholecalciferol (Vitamin D3), 1 CAP PO DAILY Cyanocobalamin (Vitamin B-12), 1,000 MCG PO QAM Escitalopram (Lexapro), 10 MG PO QAM Ferrous Sulfate (Ferrous Sulfate), 1 TAB PO TIDM Glimepiride (Glimepiride), 2 MG PO QAM Glucosamine-Chondroitin (Osteo Bi-Flex Regular Str), 1 TAB PO BID Home O2 Therapy (Oxygen), 2 LITER NA HS Levothyroxine Sodium (Levothyroxine Sodium), 75 MCG PO QAM Magnesium Oxide (Mag-Ox), 400 MG PO BID Metformin Hcl (Glucophage), 1,000 MG PO BID Multiple Vitamins W/ Minerals (Centrum), 1 TABLET PO QAM Omeprazole (Omeprazole), 20 MG PO Q2D Prednisone (Prednisone), 10 MG PO QAM Simvastatin (Zocor), 80 MG PO HS Scheduled PRN Albuterol (Ventolin Hfa), 2 PUFFS INH QID PRN for Shortness of Breath Albuterol Sulf (Proventil 0.083% 2.5MG/3ML), 2.5 MG INH Q4H PRN for SOB/Wheezing Fluticasone Propionate (Nasal) (Flonase Allergy Relief), 1 SPRAY VERONICA UD PRN for PRN Furosemide (Lasix), 20 MG PO DAILY PRN for FLUID Allergies Coded Allergies: Quinolones (Verified Allergy, Severe, ANAPHYLAXIS, 11/22/17) LISTED UNDER MD ORDERS, PT. VERIFIED ANAPHYLAXIS Formoterol (Verified Allergy, Intermediate, RASH, 11/22/17) LISTED UNDER MD ORDERS, PT. VERIFIED RASH ALLERGY Metoprolol (Verified Allergy, Intermediate, RASH, 11/22/17) Sulfa Antibiotics (Verified Allergy, Intermediate, severe red rash, 11/22/17 ) Moxifloxacin (Verified Allergy, Unknown, throat swelling, 11/22/17) Ofloxacin (Verified Allergy, Unknown, SWELLING AROUND FACE, 11/22/17) Physical Exam Vital Signs Date Time Temp Pulse Resp B/P (MAP) Pulse Ox O2 Delivery O2 Flow Rate FiO2 11/22/17 17:52 77 20 134/59 95 Room Air 11/22/17 17:47 95 Room Air 11/22/17 16:35 87 11/22/17 16:09 36.3 89 18 116/67 95 Room Air Physical Exam GENERAL: Sitting up in bed, alert, well appearing, well nourished, no distress, non-toxic EYE EXAM: normal conjunctiva. OROPHARYNX: no exudate, no erythema, lips, buccal mucosa, and tongue normal and mucous membranes are moist NECK: supple, no nuchal rigidity, no adenopathy, non-tender LUNGS: Clear to auscultation. Normal chest wall mechanics HEART: systolic ejection murmur, S1 normal and S2 normal ABDOMEN: abdomen soft, non-tender, normo-active bowel sounds, no masses, no rebound or guarding. BACK: Back is symmetrical on inspection and there is no deformity, no midline tenderness, no CVA tenderness. SKIN: no rashes and no bruising UPPER EXTREMITIES: upper extremities are grossly normal. LOWER EXTREMITIES: calves are equal bilaterally. NEURO EXAM: Normal sensorium, cranial nerves II-XII grossly intact, normal speech, no gross weakness of arms, no gross weakness of legs. Medical Decision & Procedures ER Provider Diagnostic Interpretation: X-ray results as stated below per my review and the radiologist's interpretation : SINGLE VIEW CHEST CLINICAL HISTORY: Atypical chest pain. FINDINGS: An AP, portable, upright chest radiograph is compared to study dated 11/21/2017. Correlation is made with chest CT dated 04/04/2017. The examination is degraded by portable technique and patient rotation. The heart is enlarged and there is atherosclerotic calcification of the thoracic aorta. The pulmonary vasculature is noncongested. There is mild chronic elevation of right hemidiaphragm. A trace pleural effusion is identified. There is no airspace consolidation typical for pneumonia. No pneumothorax is seen. The skeletal structures are osteopenic. Degenerative change is noted in the shoulders and thoracic spine. IMPRESSION: 1. Cardiomegaly with no acute cardiopulmonary abnormality. 2. A trace right pleural effusion is again noted. Electronically signed by: Fausto Donovan M.D. 11/22/2017 4:41 PM Dictated Date/Time: 11/22/2017 4:40 PM Laboratory Results 11/22/17 16:35 Red Blood Count 4.14, Mean Corpuscular Volume 91.3, Mean Corpuscular Hemoglobin 30.2, Mean Corpuscular Hemoglobin Concent 33.1, Mean Platelet Volume 10.0, Neutrophils (%) (Auto) 79.2, Lymphocytes (%) (Auto) 8.6, Monocytes (%) (Auto) 5.7, Eosinophils (%) (Auto) 1.6, Basophils (%) (Auto) 0.4, Neutrophils # (Auto) 8.43, Lymphocytes # (Auto) 0.92, Monocytes # (Auto) 0.61, Eosinophils # (Auto) 0.17, Basophils # (Auto) 0.04 11/22/17 16:35 Test 11/22/17 16:35 White Blood Count 10.65 K/uL (4.8-10.8) Red Blood Count 4.14 M/uL (4.7-6.1) Hemoglobin 12.5 g/dL (14.0-18.0) Hematocrit 37.8 % (42-52) Mean Corpuscular Volume 91.3 fL (80-100) Mean Corpuscular Hemoglobin 30.2 pg (25-34) Mean Corpuscular Hemoglobin Concent 33.1 g/dl (32-36) Platelet Count 241 K/uL (130-400) Mean Platelet Volume 10.0 fL (7.4-10.4) Neutrophils (%) (Auto) 79.2 % Lymphocytes (%) (Auto) 8.6 % Monocytes (%) (Auto) 5.7 % Eosinophils (%) (Auto) 1.6 % Basophils (%) (Auto) 0.4 % Neutrophils # (Auto) 8.43 K/uL (1.4-6.5) Lymphocytes # (Auto) 0.92 K/uL (1.2-3.4) Monocytes # (Auto) 0.61 K/uL (0.11-0.59) Eosinophils # (Auto) 0.17 K/uL (0-0.5) Basophils # (Auto) 0.04 K/uL (0-0.2) RDW Standard Deviation 58.6 fL (36.4-46.3) RDW Coefficient of Variation 17.5 % (11.5-14.5) Immature Granulocyte % (Auto) 4.5 % Immature Granulocyte # (Auto) 0.48 K/uL (0.00-0.02) Nucleated RBC Absolute Count (auto) 0.02 K/uL (0-0) Nucleated Red Blood Cells % 0.2 % Prothrombin Time 10.5 SECONDS (9.0-12.0) Prothromb Time International Ratio 1.0 (0.9-1.1) Anion Gap 12.0 mmol/L (3-11) Est Creatinine Clear Calc Drug Dose 53.5 ml/min Estimated GFR () 64.3 Estimated GFR (Non- 55.5 BUN/Creatinine Ratio 14.1 (10-20) Calcium Level 9.6 mg/dl (8.5-10.1) Magnesium Level 1.4 mg/dl (1.8-2.4) Total Creatine Kinase 94 U/L (39-308) Creatine Kinase MB 3.1 ng/ml (0.5-3.6) Creatine Kinase MB Ratio 3.3 (0-3.0) Beta-Hydroxybutyric Acid 2.78 mg/dL (0.2-2.81) Laboratory results per my review. Medications Administered Medications (Trade) Dose Ordered Sig/Clair Route Start Time Stop Time Status Last Admin Dose Admin Aspirin (Aspirin Chew) 324 mg NOW STAT PO 11/22/17 16:19 11/22/17 16:20 DC 11/22/17 16:27 324 MG Magnesium Sulfate (Magnesium Sulfate) 1 gm NOW STAT IV 11/22/17 17:30 11/22/17 17:31 DC 11/22/17 17:49 1 GM ECG Per My Interpretation Indication: SOB/dyspnea Rate (beats per minute): 85 Rhythm: sinus rhythm Findings: ST depression (high lateral), T-wave inversion (high lateral), other (ST segment elevations in lead 3 and AVL ) Comparison ECG Date: changes are new compared to 06/17/17 ED Course ED COURSE: Vital signs were reviewed and showed normal vitals. The patients medical record was reviewed The above diagnostic studies were performed and reviewed. ED treatments and interventions as stated above. 1613: The patient was evaluated in room B11B. A complete history and physical examination was performed. 1619: Aspirin Chew 324 mg PO. 1644: I discussed the patient with Dr. Hwang - [facility]. 1646: I reevaluated the patient and he has no chest pain or shortness of breath. 1707: Upon reevaluation, the patient is resting, and Dr. Hwang is at bedside. Dr. Hwang says don't call STEMI alert but to bring her in.I discussed my findings with the patient and he understands and agrees with the treatment plan. Based on the patients age, coexisting illnesses, exam and lab findings the decision to treat as an inpatient was made. The patient remained stable while under my care. The patient will be evaluated for further management. 1730: Magnesium Sulfate 1 gm IV. 1758: I reviewed the patient's case with Mare STACK. She will evaluate the patient for further management. 1800: I reevaluated and updated the patient. Medical Decision Differential diagnoses includes but is not limited to acute coronary syndrome, myocardial infarction, pericarditis, pulmonary embolus, aortic dissection, pneumonia, pneumothorax, musculoskeletal, shingles, esophageal. Patient is a 77-year-old male who presents the ER referred in by pulmonology for shortness of breath and chest pain which is present intermittently with exertion. CBC along with BMP was unremarkable. Troponin was negative. BSG was elevated. Chest x-ray was unremarkable. EKG did show slightly new ST segment elevations in the inferior leads with depressions in the high lateral. This was reviewed by Dr. Hwang from interventional cardiology shortly after presentation. Patient had absolutely no chest pain or shortness of breath. Aspirin was given. Decision was made at this time to observe him overnight for an internal medicine. Discussed the patient with internal medicine and updated the family at bedside. Medication Reconcilliation Current Medication List: was personally reviewed by me Blood Pressure Screening Patient's blood pressure: Normal blood pressure Consults Time Called: 1640 Consulting Physician: Dr. Jaiden STACK cardiology Returned Call: 1644 I discussed the patient with Dr. Jaiden STACK cardiology. Additional Consults: Time Called: 1755 Consulted Physician: Mare STACK Returned Call: 1758 Additional Comments: I reviewed the patient's case with Mare STACK. She will evaluate the patient for further management. Impression Primary Impression: Acute electrocardiogram changes Additional Impression: Exertional chest pain Scribe Attestation The scribe's documentation has been prepared under my direction and personally reviewed by me in its entirety. I confirm that the note above accurately reflects all work, treatment, procedures, and medical decision making performed by me. Departure Information Dispostion Being Evaluated By Hospitalist Referrals Artis Gunderson M.D. (PCP) Patient Instructions My [facility] Problem Qualifiers
[2017-11-22 23:45] VITALS: BP 122/69; PULSE 76; TEMP 36.6; O2SAT 95
[2017-11-23] VITALS (7 sets, daily range): BP systolic 100–131; BP diastolic 61–72; PULSE 66–81; TEMP 36.4; O2SAT 96–98; Ht 182.9 cm; Wt 76.3 kg
[2017-11-23 03:54] LABS: HEMATOCRIT 34.6 % (42-52); HEMOGLOBIN 11.4 g/dL (14.0-18.0); MEAN CELL VOLUME 91.1 fL (80-100); MEAN CORPUSCULAR HGB CONC 32.9 g/dl (32-36); MEAN PLATELET VOLUME 9.9 fL (7.4-10.4); PLATELET COUNT 214 K/uL (130-400); RED CELL DISTRIBUTION WIDTH CV 17.1 % (11.5-14.5); RED CELL DISTRIBUTION WIDTH SD 56.9 fL (36.4-46.3); WHITE BLOOD COUNT 9.92 K/uL (4.8-10.8)
[2017-11-23 04:19] LABS: CALCIUM 8.9 mg/dl (8.5-10.1); CREATININE 1.14 mg/dl (0.60-1.40); POTASSIUM 4.3 mmol/L (3.5-5.1)
[2017-11-23] MEDS: INSULIN ASPART 100 UNITS/ML 3 ML PEN SC SCH ×4 (04:30→12:31)
[2017-11-23] MEDS ORDERED: LEVOTHYROXINE 75 MCG TAB PO SCH (06:00)
[2017-11-23] MEDS: ALBUT/IPRATROP 3MG/0.5MG NEB 3 ML VIAL INH SCH ×3 (07:05→14:12)
[2017-11-23] MEDS: ARFORMOTEROL TART 15MCG/2ML VIAL INH SCH (07:05)
[2017-11-23] MEDS ORDERED: INSULIN HUMAN NPH SC SCH (07:30)
[2017-11-23] MEDS: ASCORBIC ACID 500 MG TAB PO SCH ×2 (08:38→12:29)
[2017-11-23] MEDS: FERROUS SULFATE 325 MG TAB PO SCH ×2 (08:39→12:29)
[2017-11-23] MEDS: MAGNESIUM OXIDE 400 MG TAB PO SCH (08:39)
[2017-11-23] MEDS ORDERED: CYANOCOBALAMIN 500 MCG TAB (VIT B-12) PO SCH (09:00)
[2017-11-23] MEDS ORDERED: INSULIN GLARGINE SOLOSTAR 100 UNITS/ML 3 ML PEN SC SCH (09:00)
[2017-11-23] MEDS ORDERED: ESCITALOPRAM OXALATE 10 MG TAB PO SCH (09:00)
[2017-11-23] MEDS ORDERED: ENOXAPARIN 80 MG/0.8 ML SYR SQ SCH (09:00)
[2017-11-23] MEDS ORDERED: CEROVITE ADV FORMULA TAB PO SCH (09:00)
[2017-11-23] MEDS ORDERED: CHOLECALCIFEROL 1000 INTER.UNIT TAB PO SCH (09:00)
[2017-11-23] MEDS ORDERED: PANTOprazole SOD 40 MG TAB PO SCH (09:00)
--- NOTE | 2017-11-23 14:51 | Pharmacy Progress Note ---
Glycemic Control Intl Consult Date of Service Nov 23, 2017. Scope Glycemic Pharmacist consulted by Dr Braga on 11/22/17 for glycemic control and to write orders per [facility] inpatient glycemic control protocol Objective Weight (Kilograms): 76.300 Accuchecks BSG (last 24hrs): Test 11/22/17 16:35 11/22/17 21:13 11/23/17 00:02 11/23/17 03:40 Random Glucose 303 mg/dl (70-99) 143 mg/dl (70-99) Bedside Glucose 318 mg/dl (70-99) 78 mg/dl (70-99) Test 11/23/17 04:14 11/23/17 06:33 11/23/17 11:40 Bedside Glucose 169 mg/dl (70-99) 208 mg/dl (70-99) 172 mg/dl (70-99) Laboratory Data (last 24hrs) Test 11/22/17 16:35 11/23/17 03:40 Anion Gap 12.0 mmol/L 6.0 mmol/L BUN/Creatinine Ratio 14.1 16.3 Blood Urea Nitrogen 17 mg/dl 19 mg/dl Creatinine 1.23 mg/dl 1.14 mg/dl Hemoglobin A1c 9.0 % Potassium Level 4.4 mmol/L 4.3 mmol/L Sodium Level 135 mmol/L 137 mmol/L White Blood Count 10.65 K/uL 9.92 K/uL Red Blood Count 4.14 M/uL Hemoglobin 12.5 g/dL Hematocrit 37.8 % Mean Corpuscular Volume 91.3 fL Mean Corpuscular Hemoglobin 30.2 pg Mean Corpuscular Hemoglobin Concent 33.1 g/dl Platelet Count 241 K/uL Mean Platelet Volume 10.0 fL Neutrophils (%) (Auto) 79.2 % Lymphocytes (%) (Auto) 8.6 % Monocytes (%) (Auto) 5.7 % Eosinophils (%) (Auto) 1.6 % Basophils (%) (Auto) 0.4 % Neutrophils # (Auto) 8.43 K/uL Lymphocytes # (Auto) 0.92 K/uL Monocytes # (Auto) 0.61 K/uL Eosinophils # (Auto) 0.17 K/uL Basophils # (Auto) 0.04 K/uL HbA1c Test 11/22/17 16:35 Hemoglobin A1c 9.0 % (4.5-5.6) H Recent Pertinent Medications Outpatient Anti-diabetic Regimen: * glimepiride 2 mg PO qAM + metformin 1 gm PO BID * A1c = 9.2 % 11/22/17 The patient is currently receiving: * Basal insulin: Lantus 20 units x 1 * Correctional Insulin: Novolog Correction per scale ACHS Goal Range: Low 110 mg/dL - High 140 mg/dL Correction Factor: 15 mg/dL/unit * Prandial insulin: Per carb ratio of 1 unit per 5 grams CHO consumed Risk Factors for Insulin Resistance: * Steroids: prednisone 40 mg po daily starting last night * Diet: type 2 diet Assessment & Plan ASSESSMENT: * Mr Gibson is a 77 y/o M with a PMH of COPD, Afib on warfarin, and poorly controlled type 2 diabetes who is admitted with EKG changes and COPD exacerbation. Blood sugar on admission was 303 mg/dL and the patient received 8 units IV and 20 units of Lantus. Blood sugars were then 318-79-169 and fasting this morning was 208 mg/dL. The patient has been on chronic prednisone with an HbA1C increasing since the fall. * For this morning, considered the use of NPH for patient since he is on chronic prednisone. Unsure if patient would need Lantus on top of NPH but started. For NPH gave 0.4 units/kg for prednisone 40 mg. For Lantus will start with weight-based stress of 2 with low threshold to reduce. for Novolog, started with tight coverage since NPH was not started until today. Loosened with lunch due to downwards trend. * Pt is maintained on oral antidiabetic agents as an outpatient * Oral agents are not recommended for inpatient use d/t drug interactions, changing PO intake, and difficulty titrating for acute hyper/hypoglycemia. ADA recommends re-initiating outpatient oral agents 1-2 days prior to discharge if/ when appropriate if they were held on admission. * Will hold oral agents for admission and utilize SQ basal bolus insulin regimen which is the recommended regimen for inpatient glycemic control. * Will initiate weight based insulin dosing for insulin dory patient and titrate based on BSG trends. PLAN FOR INPATIENT GLYCEMIC CONTROL: * Holding outpatient oral diabetes medications * Basal insulin with LANTUS 15 units SQ BID PLUS NPH 30 units daily * Correctional Insulin with NOVOLOG / REGULAR per scale ACHS or Q6hrs while NPO * Goal Range: Low 110 mg/dL - High 140 mg/dL * Correction Factor: 20 mg/dL/unit * Nutritional / Prandial insulin per carb ratio of 1 unit per 6 grams CHO consumed * Please note that the plan above was derived based on current level of insulin resistance and hospital stress. These recommendations are appropriate for inpatient admission only. Plan of care upon discharge will need to be reassessed to avoid potential outpatient hypo/hyperglycemia. Thank you.
--- NOTE | 2017-11-23 15:56 | ECHOCARDIOGRAM REPORT ---
*NOTICE TO RECEIVING LIBERTARIAN AGENCY This information is strictly Confidential and protected under [place] law. [place] law prohibits you from making any further disclosure of this information unless further disclosure is expressly permitted by the written consent of the person to whom it pertains or is authorized by law. A general authorization for the release of medical or other information is not sufficient for this purpose. Hospital accepts no responsibility if the information is made available to any other person, INCLUDING THE PATIENT. Interpretation Summary * Name: ALAYNA LATHAM Study Date: 11/23/2017 06:28 AM BP: 131/72 mmHg * Patient Location: C.2T\S\E222\S\1 HR: 65 * : 1940 (M/d/yyyy) Gender: Male Height: 72 in * Age: 77 yrs Ethnicity: CA Weight: 176 lb * Ordering Physician: Mare Braga * Referring Physician: Constantine Noriega PA-C * Performed By: Tracy Noriega RCS * * Reason For Study: EKG CHANGES * BSA: 2.0 m2 * -- Conclusions -- * 1. Normal LV size, mild concentric LVH. * 2. Normal LV systolic function. LVEF 60-65%. No regional wall motion abnormalities. * 3. Grade II diastolic dysfunction. * 4. Normal RV size and function. * 5. Systolic anterior motion of mitral valve. No significant dynamic outflow gradient. * 6. Mild to moderate eccentric mitral regurgitation. * 7. Aortic valve sclerosis without stenosis. * 8. Dilated IVC. Est RA 15 mmHg. * 9. Compared with prior study on 12/13/2016: GLADYS better appreciated. Mitral regurgitation now mild to moderate. Procedure Details * A complete two-dimensional transthoracic echocardiogram was performed (2D, M-mode, Doppler and color flow Doppler). Left Ventricle * The left ventricle is grossly normal size. * There is mild concentric left ventricular hypertrophy. * Ejection Fraction = 60-65%. * No regional wall motion abnormalities noted. Right Ventricle * The right ventricle is grossly normal size. * The right ventricular systolic function is normal as assessed by tricuspid annular plane systolic excursion (TAPSE) (normal >1.5 cm). Atria * The left atrium is mildly dilated. * The right atrium is mildly dilated. * No ASD detected; PFO is not assessed. Mitral Valve * The mitral valve is grossly normal. * There is mild mitral annular calcification. * There is systolic anterior motion of the mitral valve. * There is no mitral valve stenosis. * There is mild to moderate mitral regurgitation. * The mitral regurgitant jet is eccentrically directed. Tricuspid Valve * There is trace tricuspid regurgitation. Aortic Valve * Aortic valve sclerosis moderate, without significant aortic valvular stenosis. * No hemodynamically significant valvular aortic stenosis. * There is no significant aortic regurgitation. Pulmonic Valve * The pulmonary valve is inadequately visualized, but the Doppler data is adequate for interpretation. * Pulmonic stenosis is absent. * There is no significant pulmonary regurgitation. Great Vessels * The aortic root and proximal ascending aorta are normal sized. Pericardium/Pleural * There is no pericardial effusion. Great Vessels * Dilated inferior vena cava with reduced collapsability with sniff indicates an elevated right atrial pressure of 15 mmHg Left Ventricular Diastolic Function * Diastolic dysfunction, Grade II (pseudonormalization pattern). MMode 2D Measurements and Calculations IVSd 1.6 cm IVSs 2.1 cm LVIDd 4.8 cm LVIDs 2.8 cm LVPWd 1.4 cm LVPWs 2.1 cm IVS/LVPW 1.2 FS 42.7 % EDV(Teich) 107.9 ml ESV(Teich) 28.4 ml EF(Teich) 73.7 % EDV(cubed) 111.2 ml ESV(cubed) 20.9 ml EF(cubed) 81.2 % % IVS thick 29.8 % % LVPW thick 49.1 % LV mass(C)d 309.8 grams LV mass(C)dI 153.6 grams/m\S\2 LV mass(C)s 264.6 grams LV mass(C)sI 131.1 grams/m\S\2 SV(Teich) 79.5 ml SI(Teich) 39.4 ml/m\S\2 SV(cubed) 90.2 ml SI(cubed) 44.7 ml/m\S\2 Ao root diam 3.3 cm Ao root area 8.5 cm\S\2 ACS 1.8 cm LA dimension 4.8 cm LA/Ao 1.5 LVOT diam 2.0 cm LVOT area 3.1 cm\S\2 LVAd ap4 27.5 cm\S\2 LVLd ap4 6.8 cm EDV(MOD-sp4) 89.7 ml EDV(sp4-el) 93.9 ml LVAs ap4 18.1 cm\S\2 LVLs ap4 6.1 cm ESV(MOD-sp4) 45.3 ml ESV(sp4-el) 45.1 ml EF(MOD-sp4) 49.6 % EF(sp4-el) 52.0 % LVAd ap2 27.2 cm\S\2 LVLd ap2 7.4 cm EDV(MOD-sp2) 81.9 ml EDV(sp2-el) 84.2 ml LVAs ap2 16.9 cm\S\2 LVLs ap2 5.8 cm ESV(MOD-sp2) 39.0 ml ESV(sp2-el) 41.4 ml EF(MOD-sp2) 52.4 % EF(sp2-el) 50.8 % LVLd %diff 8.5 % EDV(MOD-bp) 85.8 ml LVLs %diff -5.01 % ESV(MOD-bp) 42.1 ml EF(MOD-bp) 51.0 % SV(MOD-sp4) 44.5 ml SI(MOD-sp4) 22.0 ml/m\S\2 SV(MOD-sp2) 42.9 ml SI(MOD-sp2) 21.3 ml/m\S\2 SV(MOD-bp) 43.7 ml SI(MOD-bp) 21.7 ml/m\S\2 SV(sp4-el) 48.8 ml SI(sp4-el) 24.2 ml/m\S\2 SV(sp2-el) 42.8 ml SI(sp2-el) 21.2 ml/m\S\2 Doppler Measurements and Calculations MV E max yadira 77.1 cm/sec MV A max yadira 51.2 cm/sec MV E/A 1.5 MV P1/2t max yadira 82.0 cm/sec MV P1/2t 64.4 msec MVA(P1/2t) 3.4 cm\S\2 MV dec slope 372.7 cm/sec\S\2 MV dec time 0.27 sec Ao V2 max 107.7 cm/sec Ao max PG 4.6 mmHg Ao max PG (full) 0.55 mmHg STEFANIE(V,A) 2.9 cm\S\2 STEFANIE(V,D) 2.9 cm\S\2 LV V1 max PG 4.1 mmHg LV V1 max 101.2 cm/sec MR max yadira 509.5 cm/sec MR max PG 103.8 mmHg PA V2 max 101.8 cm/sec PA max PG 4.1 mmHg
--- NOTE | 2017-11-23 16:00 | Discharge Instructions ---
Discharge Instructions Date of Service Nov 23, 2017. Admission Reason for Admission: Acute Electrocardiogram Changes Discharge Discharge Diagnosis / Problem: EKG changes, non-ischemic Discharge Goals Goal(s): Decrease discomfort, Improve function Activity Recommendations Activity Limitations: resume your previous activity . Instructions / Follow-Up Instructions / Follow-Up Medications: no changes On admission you had some subtle EKG changes, troponin negative x 3 sets, echocardiogram normal can be discharged FOLLOW UP - no need for immediate follow up, keep previous appointment with PCP Current Hospital Diet Patient's current hospital diet: AHA Diet (Heart Healthy), Diabetes Type 2 Diet Discharge Diet Recommended Diet: AHA Diet (Heart Healthy), Diabetes Type 2 Diet Pending Studies Studies pending at discharge: no Laboratory Results Hemoglobin A1c Test 11/22/17 16:35 Range/Units Estimated Average Glucose 212 mg/dl Hemoglobin A1c 9.0 H 4.5-5.6 % Medical Emergencies . Who to Call and When: Medical Emergencies: If at any time you feel your situation is an emergency, please call 911 immediately. . Non-Emergent Contact Non-Emergency issues call your: Primary Care Provider Call Non-Emergent contact if: you have any medication questions . . "Provider Documentation" section prepared by Gregory Chowdary. . [place] Drug Monitoring Program Search Results: no issues identified
--- NOTE | 2017-11-23 23:53 | CARDIOLOGY CONSULTATION ---
DATE OF CONSULTATION: 11/23/2017 CONSULTATION REQUESTED BY: Dr. Chowdary. CONSULTATION REQUESTED FOR: EKG changes, chest tightness. HISTORY OF PRESENT ILLNESS: Mr. Gibson is a 77-year-old man well known to me from the outpatient setting, who was admitted from the Emergency Department after being referred by his health information technician in the setting of EKG changes. The patient has had issues with recurrent COPD exacerbations as of late. He was seen in followup earlier in the day where endorsed some mild chest tightness in association with his typical COPD symptoms. EKG showed subtle inferior ST elevations and the patient was sent to the ED. Upon arrival, the patient denied any chest pain. Reported some mild cough and some mild shortness of breath but did not feel these were significantly different than what he had been experiencing over the last several weeks. Interventional cardiology was contacted. EKG was reviewed. EKGs appeared most consistent with early repolarization. In the setting of no active chest pain, no indication for urgent cardiac catheterization was seen. He was admitted to telemetry. Telemetry was unremarkable overnight. Today, the patient is chest pain free, feeling at his baseline. Repeat EKG showed significant changes; however, those changes were thought to be due to limb lead reversal. Troponins were trended and were negative. PAST MEDICAL HISTORY: 1. Paroxysmal atrial fibrillation. 2. Chronic diastolic heart failure. 3. Persistent anemia. 4. COPD/obstructive sleep apnea. 5. Hypertension. 6. Hyperlipidemia. 7. Type 2 diabetes. 8. Arthritis. 9. Nephrolithiasis. 10. GERD. 11. Diverticulosis. 12. Hiatal hernia. 13. Prostate cancer. SOCIAL HISTORY: Was a prior smoker. Is retired. Denies any alcohol or illicit drugs. FAMILY HISTORY: Noncontributory based on the patient's age and own medical problems. HOME MEDICATIONS: Include albuterol, Brovana, Tudorza, Ventolin, budesonide, prednisone, Afrin, Nasonex, escitalopram, glimepiride, metformin, omeprazole, furosemide, simvastatin, levothyroxine and vitamin D. ALLERGIES: INCLUDE SULFA, AVELOX, BIAXIN, FORMOTEROL, METOPROLOL SUCCINATE AND QUINOLONES. PHYSICAL EXAMINATION: VITAL SIGNS: Temperature 36.4, pulse 74, blood pressure 100/61, satting 96% on room air. GENERAL: The patient appears comfortable, in no acute distress. HEENT: Sclerae anicteric. Oropharynx is clear. Mucous members are moist. NECK: Supple with no lymphadenopathy. LUNGS: Clear to auscultation bilaterally. CARDIAC: Regular rate and rhythm with no appreciable murmurs. ABDOMEN: Soft, nontender, nondistended, with positive bowel sounds. EXTREMITIES: Warm with no significant lower extremity edema. SKIN: Show no rashes or lesions. NEUROLOGIC: Nonfocal. DATA: Laboratory studies as discussed in HPI. Chest x-ray showed cardiomegaly with no acute cardiopulmonary process. IMPRESSION AND PLAN: 1. Chronic obstructive pulmonary disease. 2. Abnormal EKG. 3. Diastolic heart failure. 4. History of paroxysmal atrial fibrillation. 5. History of anemia. Mr. Gibson was admitted in the setting abnormal EKG and questionable chest tightness. Symptoms seemed to have been relatively mild and the patient felt they were most consistent with his prior COPD. Denies any active chest pain currently. Reviewed EKGs and feel that inferior ST change is most consistent with early repolarization. Subsequent EKG this morning showed significant changes but these seemed to be more likely due to limb lead reversal. In the setting of negative cardiac enzymes and echocardiogram from today which showed preserved LV function, suspicion for ACS is low and I did not feel additional risk stratification is warranted. Would continue on his home cardiac regimen changes. He can follow up as scheduled with cardiology as an outpatient and feel that he is safe for discharge later today. These findings discussed with Dr. Chowdary. Thank you for consultation.
--- NOTE | 2017-11-25 09:24 | Discharge Summary ---
Discharge Summary Date of Service Nov 23, 2017. Discharge Summary Admission Date: Nov 22, 2017 at 18:54 Discharge Date: Nov 23, 2017 Discharge Disposition: Home Principal Diagnosis: Chest pain Problems/Secondary Diagnoses: EKG changes, questionable ST elevations DM type II, poorly controlled Hypomagnesemia Immunizations: Have You Had Influenza Vaccine: Yes Influenza Vaccine Date: May 20, 2017 History of Tetanus Vaccine?: uptd History of Pneumococcal: Yes Pneumococcal Date: Sep 02, 2012 History of Hepatitis B Vaccine: No Procedures: none Consultations: Cardiology Medication Reconciliation Continued Medications: Aclidinium [place] (Tudorza Pressair) 400 Mcg/Act Aer 1 PUFF INH DAILY Albuterol (Ventolin Hfa) 60 Puffs/5400 Mcg Aers 2 PUFFS INH QID PRN for Shortness of Breath Albuterol Sulf (Proventil 0.083% 2.5MG/3ML) 2.5 Mg/3 Ml Nebu 2.5 MG INH Q4H PRN for SOB/Wheezing, EA Arformoterol Tartrate (Brovana) 15 Mcg/2 Ml Neb 15 MCG INH BID, INHALER Ascorbic Acid (Ascorbic Acid) 500 Mg Tab 500 MG PO TIDM, TAB Cholecalciferol (Vitamin D3) 2,000 Unit Cap 1 CAP PO DAILY, CAP Cyanocobalamin (Vitamin B-12) 1,000 Mcg Tab 1000 MCG PO QAM, TAB Escitalopram (Lexapro) 10 Mg Tab 10 MG PO QAM Ferrous Sulfate (Ferrous Sulfate) 325 Mg Tab 1 TAB PO TIDM Fluticasone Propionate (Nasal) (Flonase Allergy Relief) 50 Mcg/Act Spr 1 SPRAY VERONICA UD PRN for PRN Furosemide (Lasix) 20 Mg Tab 20 MG PO DAILY PRN for FLUID, 3 Refills Glimepiride (Glimepiride) 1 Mg Tab 2 MG PO QAM Glucosamine-Chondroitin (Osteo Bi-Flex Regular Str) 1 Tab Tab 1 TAB PO BID Home O2 Therapy (Oxygen) Gas 2 LITER NA HS Levothyroxine Sodium (Levothyroxine Sodium) 75 Mcg Tab 75 MCG PO QAM, TAB Magnesium Oxide (Mag-Ox) 400 Mg Tab 400 MG PO BID, TAB Metformin Hcl (Glucophage) 500 Mg Tab 1000 MG PO BID, TAB Multiple Vitamins W/ Minerals (Centrum) 1 Tab Tab 1 TABLET PO QAM Omeprazole (Omeprazole) 20 Mg Tab 20 MG PO Q2D TYPICALLY TAKES IN AM Prednisone (Prednisone) 10 Mg Tab 10 MG PO QAM, TAB Simvastatin (Zocor) 80 Mg Tab 80 MG PO HS, TAB Discharge Exam Patient feeling well, no chest pain, breathing well. Eating well, asking to go home. Review of Systems: Constitutional: No fever, No chills, No sweats, No weight loss, No weakness , No fatigue, No problem reported Eyes: No worsening of vision, No eye pain, No redness, No discharge, No diplopia, No problem reported ENT: No hearing loss, No unusual epistaxis, No nasal symptoms, No sore throat, No tinnitus, No dental problems, No trouble swallowing, No problem reported Respiratory: No cough, No sputum, No wheezing, No shortness of breath, No dyspnea on exertion, No dyspnea at rest, No hemoptysis, No problem reported Cardiovascular: No chest pain, No orthopnea, No PND, No edema, No claudication, No palpitations, No problem reported Abdomen: No pain, No nausea, No vomiting, No diarrhea, No constipation, No GI bleeding, No problem reported Musculoskeletal: No joint pain, No muscle pain, No swelling, No calf pain, No problem reported Genitourinary - Male: No hematuria, No dysuria, No urinary frequency, No urinary urgency Neurologic: No memory loss, No paralysis, No weakness, No numbness/tingling , No vertigo, No balance problems, No problem reported Psychiatric: No depression symptoms, No anhedonism, No anxiety, No insomnia , No substance abuse, No problem reported Endocrine: No fatigue, No excessive thirst, No excessive urination, No problem reported Hematologic / Lymphatic: No abnormal bleeding/bruising, No clotting problems , No swollen lymph nodes, No night sweats, No problem reported Integumentary: No rash, No itch, No new/changing skin lesions, No color change, No bleeding, No problem reported Physical Exam: General Appearance: WD/WN, no apparent distress Eyes: normal inspection, EOMI, sclerae normal ENT: normal ENT inspection, hearing grossly normal, pharynx normal Neck: supple, no adenopathy, no JVD, trachea midline Respiratory/Chest: chest non-tender, lungs clear, normal breath sounds, no respiratory distress, no accessory muscle use Cardiovascular: regular rate, rhythm, no edema, no gallop, no JVD, no murmur , normal peripheral pulses Abdomen / GI: normal bowel sounds, non tender, soft, no organomegaly Extremities: normal inspection, no calf tenderness, normal capillary refill , no pedal edema, normal range of motion, pelvis stable 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 Gibson is a 77 year old man here with EKG changes EKG changes - admit obs tele - EKG changes due to lead placement - trend troponins - negative x 3 sets - echo: normal - consult cardiology: cleared to go home DMII - resume home meds on discharge - A1c = 9.0, should discuss with PCP - bsgs AC & HS Hypomagnesemia - 1.4 - replaced with 2g IV on admission DNR Heparin subq, scds Total Time Spent: Less than 30 minutes This includes examination of the patient, discharge planning, medication reconciliation, and communication with other providers. Discharge Instructions Please refer to the electronic Patient Visit Report (Discharge Instructions) for additional information. Additional Copies To Artis Gunderson M.D.
== END 2017-11-23 16:45 | disposition home or self-care (01) ==
LOC: C.EDB 15:54 → C.2T 18:54 → ENRESERV 19:07
PROVIDERS: ADMIT Internal Medicine; ATTEND Internal Medicine
DX: R07.9 Chest pain, unspecified (principal); R94.31 Abnormal electrocardiogram [ECG] [EKG]; E11.9 Type 2 diabetes mellitus without complications; E83.42 Hypomagnesemia; I48.0 Paroxysmal atrial fibrillation; I11.0 Hypertensive heart disease with heart failure; I50.32 Chronic diastolic (congestive) heart failure; J44.9 Chronic obstructive pulmonary disease, unspecified; G47.33 Obstructive sleep apnea (adult) (pediatric); E78.5 Hyperlipidemia, unspecified; K21.9 Gastro-esophageal reflux disease without esophagitis; K57.30 Diverticulosis of large intestine without perforation or abscess without bleeding; M19.90 Unspecified osteoarthritis, unspecified site; Z66 Do not resuscitate; Z79.52 Long term (current) use of systemic steroids; Z87.442 Personal history of urinary calculi; Z85.46 Personal history of malignant neoplasm of prostate; Z88.2 Allergy status to sulfonamides; Z99.81 Dependence on supplemental oxygen; Z87.891 Personal history of nicotine dependence; Z82.49 Family history of ischemic heart disease and other diseases of the circulatory system; Z82.5 Family history of asthma and other chronic lower respiratory diseases

== ENCOUNTER → 2017-11-30 | Outpatient (CLI) | payer BC ==
[~2017-11-30] MED LIST changes: -ALBINS/ INH; +ALBINS/ NEB; -ARFO15NE INH; +ARFO15NE NEB; -ASCA500 PO; +ASCO500T16 PO; -CHOL1TAB42 PO; +CHOL2000 PO; +DOXY100C76 PO; +FERR1TAB62 PO; -FERR50TA3 PO; -HYDR-3419 PO; +MAGN400T6 PO; +METF-384 PO; -NITR1CAP33 PO; +PRED50TA PO
== END | disposition home or self-care (01) ==
LOC: C.LABBFT 14:33
PROVIDERS: ATTEND Physician Assistant Medical
DX: E83.42 Hypomagnesemia (principal)

== ENCOUNTER 2017-12-04 19:20 | Emergency (ER) | payer BC ==
[~2017-12-04] VITALS: Ht 182.9 cm; Wt 81.0 kg
[~2017-12-04 19:20] MED LIST changes: -DOXY100C76 PO; -METF-384 PO; -PRED50TA PO
[2017-12-04 19:34] VITALS: TEMP 36.5; Ht 182.9 cm; Wt 81.0 kg
[2017-12-04] MEDS ORDERED: ALBUT/IPRATROP 3MG/0.5MG NEB 3 ML VIAL INH STA ×2 (19:54→20:50)
[2017-12-04] MEDS ORDERED: METHYLPREDNISOLONE 125 MG VIAL IV STA (19:54)
[2017-12-04 20:04] LABS: BASO % 0.4 %; BASO ABS # 0.04 K/uL (0-0.2); EOS % 6.8 %; EOS ABS # 0.71 K/uL (0-0.5); HEMATOCRIT 37.7 % (42-52); HEMOGLOBIN 12.4 g/dL (14.0-18.0); IG# 0.36 K/uL (0.00-0.02); LYMPH % 15.9 %; LYMPH ABS # 1.65 K/uL (1.2-3.4); MEAN CELL VOLUME 94.3 fL (80-100); MEAN CORPUSCULAR HGB CONC 32.9 g/dl (32-36); MEAN PLATELET VOLUME 10.4 fL (7.4-10.4); MONO % 8.1 %; MONO ABS # 0.84 K/uL (0.11-0.59); NEUT % 65.3 %; NEUT ABS # 6.77 K/uL (1.4-6.5); PLATELET COUNT 188 K/uL (130-400); RED CELL DISTRIBUTION WIDTH CV 16.6 % (11.5-14.5); RED CELL DISTRIBUTION WIDTH SD 57.1 fL (36.4-46.3); WHITE BLOOD COUNT 10.37 K/uL (4.8-10.8)
[2017-12-04 20:12] VITALS: O2SAT 98
--- NOTE | 2017-12-04 20:19 | EMERGENCY ROOM VISIT NOTE ---
History Report prepared by Triston: Abiel Pepe Under the Supervision of: Dr. Abner Floyd M.D. First contact with patient: 19:46 Chief Complaint: RESPIRATORY PROBLEMS Stated Complaint: TROUBLE BREATHING Nursing Triage Summary: c/o resp difficulty all day with a cough. wears oxygen at hs 2 litres. History of Present Illness The patient is a 77 year old male who presents to the Emergency Room with complaints of constant shortness of breath beginning a couple of days ago. The patient states he has a history of COPD, and he has experienced shortness of breath before. He reports he used his nebulizer at home, and it gave him mild relief. The patient notes he is also experiencing mild chest pressure and a dry cough.. He states he has been hospitalized for his COPD before, and he does not know if he is there yet. The patient reports he is experiencing a decreased appetite and upset stomach. Pt denies LOC, headache, fevers, chills, diaphoresis , visual changes, neck pain, nausea, vomiting, back pain, melena, hematochezia, urinary symptoms, numbness, weakness, lymphadenopathy, rash, swelling to the legs, being around anyone sick, or other complaints. Review of EMR states the patient was admitted on the evening of the and discharged on the for chest pain and ECG changes. Echo was normal, lab were unremarkable, and cardiology consult cleared the patient for discharge. He also had hypomagnesium that was treated with magnesium. Source of History: patient Onset: a couple of days Quality: other (SOB) Timing: constant Modifying Factors (Relieving): other (nebulizer) Associated Symptoms: + cough (dry), + chest pain (mild pressure) Note: Associated symptoms: decreased appetite, upset stomach Review of Systems See HPI for pertinent positives and negatives. A total of ten systems were reviewed and were otherwise negative. Past Medical & Surgical Medical Problems: (1) Acute electrocardiogram changes (2) Acute on chronic diastolic (congestive) heart failure (3) Anemia (4) Bronchitis (5) Diabetes (6) Heart disease (7) Heart murmur (8) kidney colic, nish kiendy stones (9) Oral candidiasis (10) Pneumonia (11) Weakness Family History FHx: cancer FHx: heart disease FHx: lung disease Social History Smoking Status: Never Smoker Alcohol Use: occasionally Drug Use: none Marital Status: Housing Status: lives with significant other Occupation Status: retired Current/Historical Medications Scheduled Aclidinium [place] (Tudorza Pressair), 1 PUFF INH DAILY Arformoterol Tartrate (Brovana), 15 MCG NEB BID Ascorbic Acid (Ascorbic Acid), 500 MG PO TIDM Cholecalciferol (Vitamin D3), 2,000 INTER.UNIT PO DAILY Cyanocobalamin (Vitamin B-12), 1,000 MCG PO QAM Doxycycline Monohydrate (Monodox), 100 MG PO BID Escitalopram (Lexapro), 10 MG PO QAM Ferrous Sulfate (Ferrous Sulfate), 325 MG PO TIDM Glimepiride (Glimepiride), 2 MG PO QAM Glucosamine-Chondroitin (Osteo Bi-Flex Regular Str), 1 TAB PO BID Home O2 Therapy (Oxygen), 2 LITER NA HS Levothyroxine Sodium (Levothyroxine Sodium), 75 MCG PO QAM Magnesium Oxide (Mag-Ox), 400 MG PO BID Metformin Hcl (Glucophage), 1,000 MG PO BID Multiple Vitamins W/ Minerals (Centrum), 1 TABLET PO QAM Omeprazole (Omeprazole), 20 MG PO Q2D Prednisone (Prednisone), 10 MG PO QAM Prednisone (Prednisone), 50 MG PO DAILY Simvastatin (Zocor), 80 MG PO HS Scheduled PRN Albuterol (Ventolin Hfa), 2 PUFFS INH QID PRN for Shortness of Breath Albuterol Sulf (Proventil 0.083% 2.5MG/3ML), 2.5 MG NEB Q4H PRN for SOB/Wheezing Fluticasone Propionate (Nasal) (Flonase Allergy Relief), 2 SPRAYS VERONICA DAILY PRN for Allergy Symptoms Furosemide (Lasix), 20 MG PO DAILY PRN for Fluid Retention Allergies Coded Allergies: Quinolones (Verified Allergy, Severe, ANAPHYLAXIS, 11/22/17) LISTED UNDER MD ORDERS, PT. VERIFIED ANAPHYLAXIS Formoterol (Verified Allergy, Intermediate, RASH, 11/22/17) LISTED UNDER MD ORDERS, PT. VERIFIED RASH ALLERGY Metoprolol (Verified Allergy, Intermediate, RASH, 11/22/17) Sulfa Antibiotics (Verified Allergy, Intermediate, severe red rash, 11/22/17 ) Moxifloxacin (Verified Allergy, Unknown, throat swelling, 11/22/17) Ofloxacin (Verified Allergy, Unknown, SWELLING AROUND FACE, 11/22/17) Physical Exam Vital Signs Date Time Temp Pulse Resp B/P (MAP) Pulse Ox O2 Delivery O2 Flow Rate FiO2 12/05/17 00:40 85 18 137/64 94 12/04/17 23:21 88 18 132/62 93 Room Air 12/04/17 22:06 93 Room Air 12/04/17 21:31 86 12/04/17 21:15 89 18 142/64 95 Room Air 12/04/17 20:12 98 Room Air 12/04/17 20:12 98 Room Air 12/04/17 19:47 85 22 133/71 98 Room Air 12/04/17 19:34 36.5 96 22 112/58 96 Room Air Physical Exam GENERAL: Awake, alert, well-appearing, in no distress HENT: Normocephalic, atraumatic. Oropharynx unremarkable. EYES: Normal conjunctiva. Sclera non-icteric. NECK: Supple. No nuchal rigidity. FROM. No masses. RESPIRATORY: Mild wheezes, right more than left. No rales. Slightly increased respiratory effort. Coarse upper airway sounds. CARDIAC: Normal rate. Normal rhythm. No murmurs. No rubs. Extremities warm and well perfused. Pulses equal. No JVD. GI: Soft, non-distended. No tenderness to palpation. No rebound or guarding. No masses. RECTAL: Deferred. MUSCULOSKELETAL: Atraumatic. Chest examination reveals no tenderness. The back is symmetrical on inspection without obvious abnormality. There is no CVA tenderness to palpation. No joint edema. LOWER EXTREMITIES: Calves are equal size bilaterally and non-tender. 1+ bilateral edema but it is stable. No discoloration. NEURO: Normal sensorium. No sensory or motor deficits noted. SKIN: No rash or jaundice noted. Medical Decision & Procedures ER Provider Diagnostic Interpretation: X-ray: Per my interpretation, radiologist review. CHEST ONE VIEW PORTABLE CLINICAL HISTORY: Shortness of breath. Respiratory distress COMPARISON STUDY: 11/22/2017 FINDINGS: The heart remains enlarged. There is no failure. There is no focal pulmonary consolidation. There is persistent blunting of the right lateral costophrenic angle.[ IMPRESSION: 1. Persistent blunting of the right lateral costophrenic angle suggesting a small effusion 2. Stable mild cardiomegaly 3. No evidence of failure. No evidence of acute parenchymal consolidation Electronically signed by: Rodger Robison M.D. 12/04/2017 8:22 PM Dictated Date/Time: 12/04/2017 8:21 PM Laboratory Results 12/04/17 19:50 Red Blood Count 4.00, Mean Corpuscular Volume 94.3, Mean Corpuscular Hemoglobin 31.0, Mean Corpuscular Hemoglobin Concent 32.9, Mean Platelet Volume 10.4, Neutrophils (%) (Auto) 65.3, Lymphocytes (%) (Auto) 15.9, Monocytes (%) (Auto) 8.1, Eosinophils (%) (Auto) 6.8, Basophils (%) (Auto) 0.4, Neutrophils # (Auto) 6.77, Lymphocytes # (Auto) 1.65, Monocytes # (Auto) 0.84, Eosinophils # (Auto) 0.71, Basophils # (Auto) 0.04 12/04/17 19:50 Test 12/04/17 19:50 12/04/17 21:42 White Blood Count 10.37 K/uL (4.8-10.8) Red Blood Count 4.00 M/uL (4.7-6.1) Hemoglobin 12.4 g/dL (14.0-18.0) Hematocrit 37.7 % (42-52) Mean Corpuscular Volume 94.3 fL (80-100) Mean Corpuscular Hemoglobin 31.0 pg (25-34) Mean Corpuscular Hemoglobin Concent 32.9 g/dl (32-36) Platelet Count 188 K/uL (130-400) Mean Platelet Volume 10.4 fL (7.4-10.4) Neutrophils (%) (Auto) 65.3 % Lymphocytes (%) (Auto) 15.9 % Monocytes (%) (Auto) 8.1 % Eosinophils (%) (Auto) 6.8 % Basophils (%) (Auto) 0.4 % Neutrophils # (Auto) 6.77 K/uL (1.4-6.5) Lymphocytes # (Auto) 1.65 K/uL (1.2-3.4) Monocytes # (Auto) 0.84 K/uL (0.11-0.59) Eosinophils # (Auto) 0.71 K/uL (0-0.5) Basophils # (Auto) 0.04 K/uL (0-0.2) RDW Standard Deviation 57.1 fL (36.4-46.3) RDW Coefficient of Variation 16.6 % (11.5-14.5) Immature Granulocyte % (Auto) 3.5 % Immature Granulocyte # (Auto) 0.36 K/uL (0.00-0.02) Anion Gap 6.0 mmol/L (3-11) Est Creatinine Clear Calc Drug Dose 48.0 ml/min Estimated GFR () 56.5 Estimated GFR (Non- 48.7 BUN/Creatinine Ratio 10.3 (10-20) Calcium Level 9.5 mg/dl (8.5-10.1) Total Bilirubin 0.3 mg/dl (0.2-1) Aspartate Amino Transf (AST/SGOT) 13 U/L (15-37) Alanine Aminotransferase (ALT/SGPT) 35 U/L (12-78) Alkaline Phosphatase 64 U/L (45-117) Total Creatine Kinase 130 U/L (39-308) Creatine Kinase MB 2.9 ng/ml (0.5-3.6) Creatine Kinase MB Ratio 2.2 (0-3.0) Pro-B-Type Natriuretic Peptide 202 pg/ml (0-1800) Total Protein 6.7 gm/dl (6.4-8.2) Albumin 3.1 gm/dl (3.4-5.0) Globulin 3.6 gm/dl (2.5-4.0) Albumin/Globulin Ratio 0.9 (0.9-2) Troponin I 0.035 ng/ml (0-0.045) Laboratory results reviewed by me Medications Administered Medications (Trade) Dose Ordered Sig/Clair Route Start Time Stop Time Status Last Admin Dose Admin Albuterol/ Ipratropium (Duoneb) 3 ml NOW STAT INH 12/04/17 19:54 12/04/17 19:57 DC 12/04/17 20:12 3 ML Methylprednisolone Sodium Succinate (Solu-Medrol IV) 125 mg NOW STAT IV 12/04/17 19:54 12/04/17 19:57 DC 12/04/17 20:12 125 MG Albuterol/ Ipratropium (Duoneb) 3 ml NOW STAT INH 12/04/17 20:50 12/04/17 20:51 DC 12/04/17 21:16 3 ML Prednisone (PredniSONE TAB) 60 mg NOW STAT PO 12/04/17 23:59 12/05/17 00:02 DC 12/05/17 00:33 60 MG ECG Per My Interpretation Indication: SOB/dyspnea Rate (beats per minute): 88 Rhythm: normal sinus Findings: no acute ischemic change, no ectopy, other (Right axis deviation, normal intervals) ED Course 1951: The patient was evaluated in room C12B. A complete history and physical exam was performed. 1953: Ordered Solu-Medrol IV 125mg IV, Duoneb 3ml INH 2048: I reevaluated the patient. He is feeling better. 2049: Ordered Duoneb 3 ml INH 2313: I reevaluated the patient. He is feeling better and waiting for his troponin. 2358: Ordered Prednisone 60mg PO 0000: Ordered Vibramycin Cap 200mg PO 0006: I reevaluated the patient. Discussed results and discharge instructions: he verbalized understanding and agreement. The patient is ready for discharge. Medical Decision Prior records/ancillary studies reviewed. Triage Nursing notes reviewed and agree them. Additional history obtained from the family. The patient's history was concerning for shortness of breath. Differential diagnosis: Etiologies such as pneumonia, COPD, reactive airway disease, CHF, cardiac ischemia, pulmonary embolism, pneumothorax, musculoskeletal, infections, gastrointestinal, as well as others were entertained. Physical examination: As above. Wheezing noted. ER treatment provided: DuoNeb 2 IV Solu-Medrol On reassessment the patient felt significant better. Ambulatory pulse ox revealed no hypoxia. Diagnostic interpretation by me: The electrocardiogram was negative for pathologic change. The labs revealed an unremarkable CBC. Chemistry panel unremarkable. Cardiac markers negative 2. Patient has had symptoms all day therefore additional enzymes were felt to be unnecessary given the timeframe. Imaging studies: Chest x-ray as above. The patient has a history of COPD. After the nebulizers and steroids he feels significantly better. His states that he seems back to normal. I discussed different treatment options with the patient and he wishes to go home. He will follow-up closely with his primary pulmonology clinic. The patient notes that he occasionally will be prescribed an antibiotic if his breathing worsens. I did discuss treatment with doxycycline. I did offer to start this now. The patient and would like to wait and see how he progresses with the steroids and bronchodilators as he has had a big improvement at this point. He will follow-up closely. By the evaluation outlined above other emergent etiologies such as those listed in the differential, as well as others, were deemed relatively unlikely. The patient was educated about the findings as listed above. All questions were answered and the patient was pleased with the treatment. Return instructions were outlined and the patient was discharged in stable condition. The patient was referred to Dr. Castellon's office for follow-up for a recheck of the current condition. Medication Reconcilliation Current Medication List: was personally reviewed by me Blood Pressure Screening Patient's blood pressure: Normal blood pressure Blood pressure disposition: Did not require urgent referral Impression Primary Impression: Shortness of breath Additional Impression: COPD exacerbation Scribe Attestation The scribe's documentation has been prepared under my direction and personally reviewed by me in its entirety. I confirm that the note above accurately reflects all work, treatment, procedures, and medical decision making performed by me. Departure Information Dispostion Home / Self-Care Prescriptions Doxycycline Monohydrate (Monodox) 100 Mg Cap 100 MG PO BID for 10 Days, #20 CAP Prov: Abner Floyd MD 12/05/17 Prednisone (Prednisone) 50 Mg Tab 50 MG PO DAILY for 4 Days, #4 TAB Prov: Abner Floyd MD 12/05/17 Referrals Artis Gunderson M.D. (PCP) Forms HOME CARE DOCUMENTATION FORM, IMPORTANT VISIT INFORMATION, WORK / SCHOOL INSTRUCTIONS Patient Instructions My [facility] Additional Instructions If breathing worsens or fevers develop fill the prescription for doxycycline and take as noted below. Doxycycline 100mg: Take one pill twice daily for 10 days for your infection. Take with food, but avoid dairy. Avoid prolonged sun exposure since this medication makes you temporarily more susceptible to sunburns. All antibiotics can cause diarrhea. If this occurs and you feel worse or it does not resolve in 1-2 days follow up with your doctor or return to the Emergency Department as this could be signs of serious underlying problems. Any medication can cause an allergic reaction, stop the pills immediately and return to the ER for rash, hives, breathing difficulties, or swelling. Prednisone 50 mg: Once daily until the prescription is finished. Acetaminophen(Tylenol) may be used for fever or pain. Use 1000mg every six hours as needed. Avoid using more than 4000mg in a 24 hour period. Use your nebulizer 4 times a day as needed for your breathing. Continue other current medications. Rest and drink plenty of fluids. Avoid strenuous activity until your symptoms resolve and your breathing returns to normal. Return to the ER for chest pain, difficulty breathing, persistent fevers, vomiting, worsening of your condition, or as needed. Follow up with your pulmonology office tomorrow for a recheck of the current condition. Problem Qualifiers
[2017-12-04 20:23] LABS: ALBUMIN 3.1 gm/dl (3.4-5.0); CALCIUM 9.5 mg/dl (8.5-10.1); CREATININE 1.37 mg/dl (0.60-1.40); POTASSIUM 4.4 mmol/L (3.5-5.1)
--- NOTE | 2017-12-04 20:24 | DIAGNOSTIC IMAGING REPORT ---
CHEST ONE VIEW PORTABLE CLINICAL HISTORY: Shortness of breath. Respiratory distress COMPARISON STUDY: 11/22/2017 FINDINGS: The heart remains enlarged. There is no failure. There is no focal pulmonary consolidation. There is persistent blunting of the right lateral costophrenic angle.[ IMPRESSION: 1. Persistent blunting of the right lateral costophrenic angle suggesting a small effusion 2. Stable mild cardiomegaly 3. No evidence of failure. No evidence of acute parenchymal consolidation Electronically signed by: Rodger Robison M.D. 12/04/2017 8:22 PM Dictated Date/Time: 12/04/2017 8:21 PM
[2017-12-04 20:28] LABS: CKMB 2.9 ng/ml (0.5-3.6); TOTAL PROTEIN 6.7 gm/dl (6.4-8.2)
[2017-12-05] MEDS ORDERED: DOXYCYCLINE HYCLATE 100 MG CAP PO ONE
[2017-12-05] MEDS ORDERED: DOXY100C76 PO (00:10)
[2017-12-05] MEDS ORDERED: PRED50TA PO (00:10)
[2017-12-05 00:40] VITALS: BP 137/64; PULSE 85; O2SAT 94
== END 2017-12-05 00:41 | disposition home or self-care (01) ==
LOC: C.EDB 19:22 → C.EDC 12-05 00:41
DX: J44.1 Chronic obstructive pulmonary disease with (acute) exacerbation (principal); I50.33 Acute on chronic diastolic (congestive) heart failure; E11.9 Type 2 diabetes mellitus without complications; Z79.84 Long term (current) use of oral hypoglycemic drugs; D64.9 Anemia, unspecified; I51.9 Heart disease, unspecified; R01.1 Cardiac murmur, unspecified; Z99.81 Dependence on supplemental oxygen; Z88.3 Allergy status to other anti-infective agents; Z88.8 Allergy status to other drugs, medicaments and biological substances; Z88.2 Allergy status to sulfonamides; Z88.1 Allergy status to other antibiotic agents

== ENCOUNTER 2017-12-13 20:34 | Observation (INO) | payer BC ==
[~2017-12-13] VITALS: Ht 182.9 cm; Wt 79.2 kg
[~2017-12-13 20:34] MED LIST changes: +DOXY100C76 PO
[2017-12-13] MEDS ORDERED: SODIUM CHLORIDE 0.9% 500ML 500 ML IV STA ×2 (21:02→22:50)
[2017-12-13] MEDS ORDERED: ONDANSETRON INJ 2 MG/ML 2 ML VIAL IV STA (21:02)
--- NOTE | 2017-12-13 21:06 | EMERGENCY ROOM VISIT NOTE ---
History Report prepared by Triston: Tyrese Sol Under the Supervision of: Dr. Danyel Morales M.D. First contact with patient: 20:46 Chief Complaint: ABDOMINAL PAIN Stated Complaint: SEVERE STOMACH PAIN, HEADACHE, DIZZINESS Nursing Triage Summary: Patient reports mid abdominal pain with nausea, weakness, and diarrhea for the past few days. History of Present Illness The patient is a 77 year old white male with a past medical history of heart disease, DM, and kidney stone lithotripsy who presents to the ED with a cc of intermittent abdominal pain beginning 5 days ago. He describes the pain as a pressure. The patient states that his abdominal pain has been more persistent the last couple of days. He reports he took Pepto Bismol for his symptoms, which he reports relieved his symptoms for an hour. Positive nausea, diarrhea, dizzy, lightheaded, intermittent chest pressure, weakness. Negative vomiting, blood in stool, falling, injury, urinary symptoms, hematuria, sick contact, abnormal foods, stream or well water use, being in the diggs. The patient reports his last bowel movement was this morning, which he reports was normal. Source of History: patient Onset: 5 days ago Position: abdomen Quality: pressure Timing: intermittent Modifying Factors (Relieving): other (Pepto Bismol) Associated Symptoms: + chest pain, + nausea, + diarrhea, + weakness, No melena, No hematochezia, No urinary symptoms Note: Associated symptoms: dizziness, lightheaded Review of Systems See HPI for pertinent positives and negatives. A total of ten systems were reviewed and were otherwise negative. Past Medical & Surgical Medical Problems: (1) Abdominal pain (2) Acute electrocardiogram changes (3) Acute on chronic diastolic (congestive) heart failure (4) Anemia (5) Bronchitis (6) Diabetes (7) Elevated lactic acid level (8) Heart disease (9) Heart murmur (10) kidney colic, nish kiendy stones (11) Oral candidiasis (12) Pneumonia (13) Weakness Family History FHx: cancer FHx: heart disease FHx: lung disease Social History Smoking Status: Never Smoker Alcohol Use: occasionally Drug Use: none Marital Status: Housing Status: lives with significant other Occupation Status: retired Current/Historical Medications Scheduled Aclidinium [place] (Tudorza Pressair), 1 PUFF INH DAILY Arformoterol Tartrate (Brovana), 15 MCG NEB BID Ascorbic Acid (Ascorbic Acid), 500 MG PO DAILY Cholecalciferol (Vitamin D3), 2,000 INTER.UNIT PO DAILY Cyanocobalamin (Vitamin B-12), 1,000 MCG PO QAM Doxycycline Monohydrate (Monodox), 100 MG PO BID Escitalopram (Lexapro), 10 MG PO QAM Ferrous Sulfate (Ferrous Sulfate), 650 MG PO BIDM Glimepiride (Glimepiride), 2 MG PO QAM Glucosamine-Chondroitin (Osteo Bi-Flex Regular Str), 1 TAB PO BID Home O2 Therapy (Oxygen), 2 LITER NA HS Levothyroxine Sodium (Levothyroxine Sodium), 75 MCG PO Q2D Levothyroxine Sodium (Levothyroxine Sodium), 37.5 MCG PO Q2D Magnesium Oxide (Mag-Ox), 400 MG PO BID Metformin Hcl (Glucophage), 1,000 MG PO BID Multiple Vitamins W/ Minerals (Centrum), 1 TABLET PO QAM Omeprazole (Omeprazole), 20 MG PO Q2D Prednisone (Prednisone), 10 MG PO QAM Simvastatin (Zocor), 80 MG PO HS Scheduled PRN Albuterol (Ventolin Hfa), 2 PUFFS INH QID PRN for Shortness of Breath Albuterol Sulf (Proventil 0.083% 2.5MG/3ML), 2.5 MG NEB Q4H PRN for SOB/Wheezing Fluticasone Propionate (Nasal) (Flonase Allergy Relief), 2 SPRAYS VERONICA DAILY PRN for Allergy Symptoms Furosemide (Lasix), 20 MG PO DAILY PRN for Fluid Retention Allergies Coded Allergies: Quinolones (Verified Allergy, Severe, ANAPHYLAXIS, 12/13/17) LISTED UNDER MD ORDERS, PT. VERIFIED ANAPHYLAXIS Formoterol (Verified Allergy, Intermediate, RASH, 12/13/17) LISTED UNDER MD ORDERS, PT. VERIFIED RASH ALLERGY Metoprolol (Verified Allergy, Intermediate, RASH, 12/13/17) Sulfa Antibiotics (Verified Allergy, Intermediate, severe red rash, ) Moxifloxacin (Verified Allergy, Unknown, throat swelling, 12/13/17) Ofloxacin (Verified Allergy, Unknown, SWELLING AROUND FACE, 12/13/17) Physical Exam Vital Signs Date Time Temp Pulse Resp B/P (MAP) Pulse Ox O2 Delivery O2 Flow Rate FiO2 12/13/17 23:01 83 18 115/67 97 Room Air 12/13/17 20:37 36.8 101 18 117/51 95 Room Air Physical Exam GENERAL: Awake, alert, well-appearing, NAD HENT: Normocephalic, atraumatic. EYES: Normal conjunctiva. Sclera non-icteric. PERRL. No anisocoria. NECK: Supple. No nuchal rigidity. FROM. RESPIRATORY: CTAB, no rhonchi, wheezing, crackles CARDIAC: RRR, no MRG ABDOMEN: Soft, mild distension, BS+, no guarding or rebound, mild suprapubic discomfort. MSK: No chest wall TTP, no LE edema NEURO: GCS 15, CN 2-12 intact, moves all 4s on command SKIN: No rash or jaundice noted. Medical Decision & Procedures ER Provider Diagnostic Interpretation: Radiology results as stated below per my review and radiologist interpretation: KUB CLINICAL HISTORY: ABDOMINAL PAIN/GI pain COMPARISON STUDY: 10/30/2017 FINDINGS: The soft tissues, psoas shadows, renal outlines and intestinal gas pattern appear normal. There is no evidence for bowel obstruction. No abnormal abdominal calcifications are seen. Multiple surgical clips in the low pelvis. IMPRESSION: Normal study. The above report was generated using voice recognition software. It may contain grammatical, syntax or spelling errors. Electronically signed by: Trae Lucas M.D. 12/13/2017 9:44 PM Dictated Date/Time: 12/13/2017 9:44 PM ] ABD/PELVIS NO IV OR ORAL CONT CT DOSE: 461.99 mGy.cm HISTORY: Pain. Nausea. ab pain, elevated LA TECHNIQUE: Multiaxial CT images of the abdomen and pelvis were performed without contrast. A dose lowering technique was utilized adhering to the principles of ALARA. COMPARISON STUDY: 03/15/2017 FINDINGS: Mild bibasilar atelectasis. Trace pleural fluid right base. Configuration of liver spleen and pancreas are unremarkable. Several small renal calcifications considered nonobstructing. Bladder is midline. Patient is status post prostatectomy. The bowel pattern is considered nonobstructive. The appendix is normal. IMPRESSION: 1. Trace pleural fluid right base with mild right basilar atelectasis. 2. Several nonobstructing renal calcifications. 3. Examination of the abdomen and pelvis is otherwise negative post prostatectomy. The above report was generated using voice recognition software. It may contain grammatical, syntax or spelling errors. Electronically signed by: Trae Lucas M.D. 12/13/2017 10:54 PM Dictated Date/Time: 12/13/2017 10:52 PM Laboratory Results 12/13/17 21:00 Red Blood Count 3.94, Mean Corpuscular Volume 93.4, Mean Corpuscular Hemoglobin 32.0, Mean Corpuscular Hemoglobin Concent 34.2, Mean Platelet Volume 9.9, Neutrophils (%) (Auto) 74.0, Lymphocytes (%) (Auto) 13.2, Monocytes (%) (Auto) 7.1, Eosinophils (%) (Auto) 0.8, Basophils (%) (Auto) 0.3, Neutrophils # (Auto) 7.65, Lymphocytes # (Auto) 1.36, Monocytes # (Auto) 0.73, Eosinophils # (Auto) 0.08, Basophils # (Auto) 0.03 12/13/17 21:00 Test 12/13/17 21:00 12/13/17 21:15 12/13/17 23:22 White Blood Count 10.32 K/uL (4.8-10.8) Red Blood Count 3.94 M/uL (4.7-6.1) Hemoglobin 12.6 g/dL (14.0-18.0) Hematocrit 36.8 % (42-52) Mean Corpuscular Volume 93.4 fL (80-100) Mean Corpuscular Hemoglobin 32.0 pg (25-34) Mean Corpuscular Hemoglobin Concent 34.2 g/dl (32-36) Platelet Count 225 K/uL (130-400) Mean Platelet Volume 9.9 fL (7.4-10.4) Neutrophils (%) (Auto) 74.0 % Lymphocytes (%) (Auto) 13.2 % Monocytes (%) (Auto) 7.1 % Eosinophils (%) (Auto) 0.8 % Basophils (%) (Auto) 0.3 % Neutrophils # (Auto) 7.65 K/uL (1.4-6.5) Lymphocytes # (Auto) 1.36 K/uL (1.2-3.4) Monocytes # (Auto) 0.73 K/uL (0.11-0.59) Eosinophils # (Auto) 0.08 K/uL (0-0.5) Basophils # (Auto) 0.03 K/uL (0-0.2) RDW Standard Deviation 52.8 fL (36.4-46.3) RDW Coefficient of Variation 15.7 % (11.5-14.5) Immature Granulocyte % (Auto) 4.6 % Immature Granulocyte # (Auto) 0.47 K/uL (0.00-0.02) Anion Gap 9.0 mmol/L (3-11) Est Creatinine Clear Calc Drug Dose 36.5 ml/min Estimated GFR () 40.6 Estimated GFR (Non- 35.0 BUN/Creatinine Ratio 9.1 (10-20) Calcium Level 9.3 mg/dl (8.5-10.1) Total Bilirubin 0.4 mg/dl (0.2-1) Direct Bilirubin 0.1 mg/dl (0-0.2) Aspartate Amino Transf (AST/SGOT) 10 U/L (15-37) Alanine Aminotransferase (ALT/SGPT) 28 U/L (12-78) Alkaline Phosphatase 72 U/L (45-117) Total Protein 6.6 gm/dl (6.4-8.2) Albumin 3.0 gm/dl (3.4-5.0) Lipase 183 U/L (73-393) Urine Color YELLOW Urine Appearance CLEAR (CLEAR) Urine pH 5.5 (4.5-7.5) Urine Specific Mobile 1.028 (1.000-1.030) Urine Protein NEG (NEG) Urine Glucose (UA) 3+ (NEG) Urine Ketones 1+ (NEG) Urine Occult Blood 3+ (NEG) Urine Nitrite NEG (NEG) Urine Bilirubin NEG (NEG) Urine Urobilinogen NEG (NEG) Urine Leukocyte Esterase NEG (NEG) Urine WBC (Auto) 1-5 /hpf (0-5) Urine RBC (Auto) >30 /hpf (0-4) Urine Hyaline Casts (Auto) 1-5 /lpf (0-5) Urine Epithelial Cells (Auto) 5-10 /lpf (0-5) Urine Bacteria (Auto) NEG (NEG) Bedside Lactic Acid Venous 4.05 mmol/L (0.90-1.70) Laboratory results reviewed by me Medications Administered Medications (Trade) Dose Ordered Sig/Clair Route Start Time Stop Time Status Last Admin Dose Admin Ondansetron HCl (Zofran Inj) 4 mg NOW STAT IV 12/13/17 21:02 12/13/17 21:04 DC 12/13/17 21:19 4 MG Fentanyl Citrate (Fentanyl Inj) 25 mcg NOW ONCE IV 12/13/17 21:15 12/13/17 21:16 DC 12/13/17 21:20 25 MCG Sodium Chloride 500 ml @ 500 mls/hr Q1H STAT IV 12/13/17 21:02 12/13/17 22:01 DC 12/13/17 21:21 500 MLS/HR Miscellaneous Medication (Gi Cocktail) 24 ml ONE STAT PO 12/13/17 22:50 12/13/17 22:51 DC 12/13/17 22:50 24 ML Famotidine (Pepcid Tab) 20 mg NOW ONCE PO 12/13/17 23:00 12/13/17 23:01 DC 12/13/17 22:56 20 MG Sodium Chloride 500 ml @ 999 mls/hr Q31M STAT IV 12/13/17 22:50 12/13/17 23:20 DC 12/13/17 22:59 999 MLS/HR Al Hydroxide/Mg Hydroxide (Maalox Susp) 30 ml STK-MED ONCE .ROUTE 12/13/17 22:55 12/13/17 22:56 DC 12/13/17 22:56 30 ML Lidocaine HCl (Viscous Lidocaine 2% Soln) 20 ml STK-MED ONCE .ROUTE 12/13/17 22:55 12/13/17 22:56 DC 12/13/17 22:56 20 ML ECG Per My Interpretation Indication: weakness Rate (beats per minute): 90 Rhythm: normal sinus Findings: T-wave inversion (AVL), other (Normal intervals, Normal axis) Comparison ECG Date: 12/05/17 Change: T wave is old ED Course 2057: The patient was evaluated in room B05. A complete history and physical exam was performed. 2318: I reevaluated the patient and he is feeling better. He will do a PO challenge. 8: I discussed the patient's case with Dr. Avendano, [facility] Hospitalist. He understands the patient's condition and agrees to accept the patient. The patient will be further evaluated. Medical Decision Nursing notes reviewed. Ancillary studies and prior records reviewed. The patient is a 77 year old white male with a past medical history of heart disease, DM, and kidney stone lithotripsy who presents to the ED with a cc of intermittent abdominal pain beginning 5 days ago. The patient's presentation and history were concerning for etiologies such as appendicitis, diverticulitis, PUD, biliary pathology, UTI, pancreatitis, obstruction, mesenteric ischemia, aortic pathology, infections, inflammatory bowel disease, renal colic, as well as others were entertained. Patient was seen and evaluated at the bedside. Patient did complain of some abdominal discomfort. He states that this began approximately 5 days prior. He states it is intermittent in nature but it has become more persistent. Patient denies any chest pains or shortness of breath. Patient denies other infectious symptoms. Patient has had a recent bowel movement without blood. Patient denies any urinary symptoms. On exam the patient does not show signs of peritonitis discomfort. Patient did have blood work completed along with an EKG, troponin, chest x-ray. Patient was also given IV fluids initially 500 cc given the patient's prior history of CHF. Patient's blood work showed a normal white blood cell count 10,000. Mild anemia with hemoglobin of 12. Patient's kidney function showed a mild change with a creatinine 1.8. Patient chronically has had better creatinine. Patient also did have a lactate that was greater than 4. Patient was given additional IV fluids medications. A CT noncontrast of the abdomen pelvis was completed. This did show kidney stones. This is likely consistent with the patient's urine after the patient was given a second round of medications he was raised the patient was feeling improved. Patient's lactate was repleted. It was still elevated greater than 4. The patient does take metformin. The patient's bicarb was normal. Given that the patient's lactate has not significantly improved even with 1 L of fluid I did discuss the case with the on-call hospitalist who agreed to further evaluate and treat the patient. Cannot r/o ischemic bowel at this time given non-con study. Also less likely infectious given neg CT, normal WBC, and improved exam. The patient's abdominal exam has improved and the patient currently denies pain. Medication Reconcilliation Current Medication List: was personally reviewed by me Blood Pressure Screening Patient's blood pressure: Normal blood pressure Consults Time Called: [id number] Consulting Physician: Dr. Avendano, [facility] Hospitalist Returned Call: [phone] I discussed the patient's case with Dr. Avendano [facility] Hospitalist. He understands the patient's condition and agrees to accept the patient. The patient will be further evaluated. Impression Primary Impression: Elevated lactic acid level Additional Impressions: PATRICK (acute kidney injury) Anemia Scribe Attestation The scribe's documentation has been prepared under my direction and personally reviewed by me in its entirety. I confirm that the note above accurately reflects all work, treatment, procedures, and medical decision making performed by me. Departure Information Dispostion Being Evaluated By Hospitalist Referrals Artis Gunderson M.D. (PCP) Patient Instructions My [facility] Problem Qualifiers Additional Impressions: Anemia Anemia type: unspecified type Qualified Codes: D64.9 - Anemia, unspecified
[2017-12-13] MEDS ORDERED: FENTANYL CITRATE INJ 50 MCG/1 ML 2 ML VIAL IV ONE (21:15)
[2017-12-13 21:19] LABS: BASO % 0.3 %; EOS % 0.8 %; HEMATOCRIT 36.8 % (42-52); HEMOGLOBIN 12.6 g/dL (14.0-18.0); LYMPH % 13.2 %; LYMPH ABS # 1.36 K/uL (1.2-3.4); MEAN CELL VOLUME 93.4 fL (80-100); MEAN CORPUSCULAR HGB CONC 34.2 g/dl (32-36); MEAN PLATELET VOLUME 9.9 fL (7.4-10.4); MONO % 7.1 %; NEUT ABS # 7.65 K/uL (1.4-6.5); PLATELET COUNT 225 K/uL (130-400); RED CELL DISTRIBUTION WIDTH CV 15.7 % (11.5-14.5); RED CELL DISTRIBUTION WIDTH SD 52.8 fL (36.4-46.3); WHITE BLOOD COUNT 10.32 K/uL (4.8-10.8)
[2017-12-13 21:20] LABS: BASO ABS # 0.03 K/uL (0-0.2); EOS ABS # 0.08 K/uL (0-0.5); IG# 0.47 K/uL (0.00-0.02); MONO ABS # 0.73 K/uL (0.11-0.59)
[2017-12-13] MEDS ORDERED: LEVO75TA5 PO (21:23)
[2017-12-13 21:36] LABS: CALCIUM 9.3 mg/dl (8.5-10.1); CREATININE 1.8 mg/dl (0.60-1.40); POTASSIUM 4.6 mmol/L (3.5-5.1)
[2017-12-13 21:39] LABS: TOTAL PROTEIN 6.6 gm/dl (6.4-8.2)
--- NOTE | 2017-12-13 21:46 | DIAGNOSTIC IMAGING REPORT ---
KUB CLINICAL HISTORY: ABDOMINAL PAIN/GI pain COMPARISON STUDY: 10/30/2017 FINDINGS: The soft tissues, psoas shadows, renal outlines and intestinal gas pattern appear normal. There is no evidence for bowel obstruction. No abnormal abdominal calcifications are seen. Multiple surgical clips in the low pelvis. IMPRESSION: Normal study. The above report was generated using voice recognition software. It may contain grammatical, syntax or spelling errors. Electronically signed by: Trae Lucas M.D. 12/13/2017 9:44 PM Dictated Date/Time: 12/13/2017 9:44 PM
[2017-12-13] MEDS ORDERED: GI COCKTAIL PO STA (22:50)
[2017-12-13] MEDS ORDERED: LIDOCAINE HCL 2% VISC SOLN 20 ML UDC ONE (22:55)
[2017-12-13] MEDS ORDERED: ALUMINUM/MAGNESIUM SUSP 30 ML UDC ONE (22:55)
--- NOTE | 2017-12-13 22:56 | DIAGNOSTIC IMAGING REPORT ---
ABD/PELVIS NO IV OR ORAL CONT CT DOSE: 461.99 mGy.cm HISTORY: Pain. Nausea. ab pain, elevated LA TECHNIQUE: Multiaxial CT images of the abdomen and pelvis were performed without contrast. A dose lowering technique was utilized adhering to the principles of ALARA. COMPARISON STUDY: 03/15/2017 FINDINGS: Mild bibasilar atelectasis. Trace pleural fluid right base. Configuration of liver spleen and pancreas are unremarkable. Several small renal calcifications considered nonobstructing. Bladder is midline. Patient is status post prostatectomy. The bowel pattern is considered nonobstructive. The appendix is normal. IMPRESSION: 1. Trace pleural fluid right base with mild right basilar atelectasis. 2. Several nonobstructing renal calcifications. 3. Examination of the abdomen and pelvis is otherwise negative post prostatectomy. The above report was generated using voice recognition software. It may contain grammatical, syntax or spelling errors. Electronically signed by: Trae Lucas M.D. 12/13/2017 10:54 PM Dictated Date/Time: 12/13/2017 10:52 PM
[2017-12-13] MEDS ORDERED: FAMOTIDINE 20 MG TAB PO ONE (23:00)
[2017-12-14] MEDS ORDERED: POLYETHYLENE (MIRALAX) 17 GM PACK PO PRN (01:30)
[2017-12-14] MEDS ORDERED: ALBUTEROL 0.083% NEBU SOLN 3 ML VIAL INH PRN (01:30)
[2017-12-14] MEDS ORDERED: ONDANSETRON INJ 2 MG/ML 2 ML VIAL IV PRN (01:30)
[2017-12-14] MEDS ORDERED: ALUMINUM/MAGNESIUM/SIMETH (MAALOX MAX) 30 ML UDC PO PRN (01:30)
[2017-12-14] MEDS ORDERED: ALBUTEROL HFA 8 GM INHALER INH PRN (01:30)
[2017-12-14] MEDS ORDERED: MAGNESIUM HYDROXIDE SUSP 30 ML UDC PO PRN (01:30)
[2017-12-14] MEDS ORDERED: ACETAMINOPHEN 325 MG TAB PO PRN (01:30)
--- NOTE | 2017-12-14 02:03 | History and Physical ---
History & Physical Date & Time of Service: Dec 14, 2017 at 01:00 Chief Complaint: Severe Stomach Pain, Headache, Dizziness Primary Care Physician: Artis Gunderson M.D. History of Present Illness Source: patient, hospital records 77 yo male w/ PMHX of Heart disease, COPD on 2 L at night, CPAP, Afib (not on anticoagulation) DM on Metformin, Glimepiride, and kidney stones s/p laser lithotripsy a month ago( [facility]). Patient presents with intermittent abdominal discomfort x 1 week, pain can last hours, feels like gassy bloating . feels better when eating frequently. + Nausea, No fevers,chills. He previously had diarrhea but resolved 2 days ago. He denies urinary symptoms. He had kidney stone removed 1 month ago. No back or flank pain. No chest pain, SOB, cough at baseline. Past Medical/Surgical History Medical Problems: (1) Acute asthmatic bronchitis (2) Acute electrocardiogram changes (3) Acute GI bleeding (4) Acute on chronic diastolic (congestive) heart failure (5) Anemia (6) Anticoagulated (7) Atrial flutter (8) Bronchitis (9) Bronchitis (10) Calculus of right kidney (11) Chest tightness (12) COPD (chronic obstructive pulmonary disease) with acute bronchitis (13) COPD exacerbation (14) COPD exacerbation (15) COPD exacerbation (16) Diabetes (17) Exertional chest pain (18) Fall (19) Heart disease (20) Heart murmur (21) Hydronephrosis with urinary obstruction due to renal calculus (22) Hyperglycemia (23) kidney colic, nish kiendy stones (24) Kidney stone (25) Laceration of upper arm, right, without mention of complication (26) Leukocytosis (27) Oral candidiasis (28) Pleural effusion (29) Pneumonia (30) Renal colic (31) Respiratory failure (32) Respiratory failure (33) Respiratory failure (34) Right flank pain (35) Right flank pain (36) Right rotator cuff tear (37) Scalp laceration (38) Scalp laceration (39) Shortness of breath (40) Shortness of breath (41) Symptomatic anemia (42) Ureterolithiasis (43) Weakness Family History FHx: cancer FHx: heart disease FHx: lung disease Cancer Heart disease Social History Smoking Status: Former Smoker Alcohol Use: none Drug Use: none Marital Status: Housing status: lives with significant other Occupational Status: retired Immunizations History of Influenza Vaccine: Yes Influenza Vaccine Date: May 20, 2017 History of Tetanus Vaccine?: uptd History of Pneumococcal: Yes Pneumococcal Date: Sep 02, 2012 History of Hepatitis B Vaccine: No Allergies Coded Allergies: Quinolones (Verified Allergy, Severe, ANAPHYLAXIS, 12/13/17) LISTED UNDER MD ORDERS, PT. VERIFIED ANAPHYLAXIS Formoterol (Verified Allergy, Intermediate, RASH, 12/13/17) LISTED UNDER MD ORDERS, PT. VERIFIED RASH ALLERGY Metoprolol (Verified Allergy, Intermediate, RASH, 12/13/17) Sulfa Antibiotics (Verified Allergy, Intermediate, severe red rash, ) Moxifloxacin (Verified Allergy, Unknown, throat swelling, 12/13/17) Ofloxacin (Verified Allergy, Unknown, SWELLING AROUND FACE, 12/13/17) Home Medications Scheduled Aclidinium [place] (Tudorza Pressair), 1 PUFF INH DAILY Arformoterol Tartrate (Brovana), 15 MCG NEB BID Ascorbic Acid (Ascorbic Acid), 500 MG PO DAILY Cholecalciferol (Vitamin D3), 2,000 INTER.UNIT PO DAILY Cyanocobalamin (Vitamin B-12), 1,000 MCG PO QAM Doxycycline Monohydrate (Monodox), 100 MG PO BID Escitalopram (Lexapro), 10 MG PO QAM Ferrous Sulfate (Ferrous Sulfate), 650 MG PO BIDM Glimepiride (Glimepiride), 2 MG PO QAM Glucosamine-Chondroitin (Osteo Bi-Flex Regular Str), 1 TAB PO BID Home O2 Therapy (Oxygen), 2 LITER NA HS Levothyroxine Sodium (Levothyroxine Sodium), 75 MCG PO Q2D Levothyroxine Sodium (Levothyroxine Sodium), 37.5 MCG PO Q2D Magnesium Oxide (Mag-Ox), 400 MG PO BID Metformin Hcl (Glucophage), 1,000 MG PO BID Multiple Vitamins W/ Minerals (Centrum), 1 TABLET PO QAM Omeprazole (Omeprazole), 20 MG PO Q2D Prednisone (Prednisone), 10 MG PO QAM Simvastatin (Zocor), 80 MG PO HS Scheduled PRN Albuterol (Ventolin Hfa), 2 PUFFS INH QID PRN for Shortness of Breath Albuterol Sulf (Proventil 0.083% 2.5MG/3ML), 2.5 MG NEB Q4H PRN for SOB/Wheezing Fluticasone Propionate (Nasal) (Flonase Allergy Relief), 2 SPRAYS VERONICA DAILY PRN for Allergy Symptoms Furosemide (Lasix), 20 MG PO DAILY PRN for Fluid Retention Review of Systems Constitutional: No fever, No chills Respiratory: + cough (at baseline), + shortness of breath (at baseline), No sputum Cardiovascular: No chest pain, No palpitations Abdomen: + pain (non-specific), + nausea, No vomiting Musculoskeletal: No swelling, No calf pain Genitourinary - Male: No hematuria, No dysuria, No urinary frequency Integumentary: No rash Physical Exam Vital Signs Date Time Temp Pulse Resp B/P (MAP) Pulse Ox O2 Delivery O2 Flow Rate FiO2 12/13/17 23:01 83 18 115/67 97 Room Air 12/13/17 20:37 36.8 101 18 117/51 95 Room Air GENERAL: alert, well appearing, no distress, EYE EXAM: normal conjunctiva, PERRL and EOM's grossly intact OROPHARYNX: no exudate, no erythema, lips, buccal mucosa, and tongue normal and mucous membranes are moist NECK: supple, no nuchal rigidity, no adenopathy, non-tender LUNGS: Clear to auscultation. Normal chest wall mechanics HEART: no murmurs, S1 normal and S2 normal ABDOMEN: abdomen, distended, non-specific generalized tenderness to palpation normo-active bowel sounds, no masses, no rebound or guarding. BACK: Back is symmetrical on inspection and there is no deformity UPPER EXTREMITIES: upper extremities are grossly normal. LOWER EXTREMITIES: No pitting edema. NEURO EXAM: Normal sensorium, cranial nerves II-XII grossly intact, normal speech, no gross weakness of arms, no gross weakness of legs. Diagnostics Laboratory Results Results Past 24 Hours Test 12/13/17 21:00 12/13/17 21:09 12/13/17 21:15 12/13/17 23:22 Range/Units White Blood Count 10.32 4.8-10.8 K/uL Red Blood Count 3.94 4.7-6.1 M/uL Hemoglobin 12.6 14.0-18.0 g/dL Hematocrit 36.8 42-52 % Mean Corpuscular Volume 93.4 80-100 fL Mean Corpuscular Hemoglobin 32.0 25-34 pg Mean Corpuscular Hemoglobin Concent 34.2 32-36 g/dl Platelet Count 225 130-400 K/uL Mean Platelet Volume 9.9 7.4-10.4 fL Neutrophils (%) (Auto) 74.0 % Lymphocytes (%) (Auto) 13.2 % Monocytes (%) (Auto) 7.1 % Eosinophils (%) (Auto) 0.8 % Basophils (%) (Auto) 0.3 % Neutrophils # (Auto) 7.65 1.4-6.5 K/uL Lymphocytes # (Auto) 1.36 1.2-3.4 K/uL Monocytes # (Auto) 0.73 0.11-0.59 K/uL Eosinophils # (Auto) 0.08 0-0.5 K/uL Basophils # (Auto) 0.03 0-0.2 K/uL RDW Standard Deviation 52.8 36.4-46.3 fL RDW Coefficient of Variation 15.7 11.5-14.5 % Immature Granulocyte % (Auto) 4.6 % Immature Granulocyte # (Auto) 0.47 0.00-0.02 K/uL Sodium Level 138 136-145 mmol/L Potassium Level 4.6 3.5-5.1 mmol/L Chloride Level 106 98-107 mmol/L Carbon Dioxide Level 24 21-32 mmol/L Anion Gap 9.0 3-11 mmol/L Blood Urea Nitrogen 16 7-18 mg/dl Creatinine 1.80 0.60-1.40 mg/dl Est Creatinine Clear Calc Drug Dose 36.5 ml/min Estimated GFR () 40.6 Estimated GFR (Non- 35.0 BUN/Creatinine Ratio 9.1 10-20 Random Glucose 164 70-99 mg/dl Calcium Level 9.3 8.5-10.1 mg/dl Total Bilirubin 0.4 0.2-1 mg/dl Direct Bilirubin 0.1 0-0.2 mg/dl Aspartate Amino Transf (AST/SGOT) 10 15-37 U/L Alanine Aminotransferase (ALT/SGPT) 28 12-78 U/L Alkaline Phosphatase 72 45-117 U/L Total Protein 6.6 6.4-8.2 gm/dl Albumin 3.0 3.4-5.0 gm/dl Lipase 183 73-393 U/L Bedside Lactic Acid Venous 4.61 4.05 0.90-1.70 mmol/L Urine Color YELLOW Urine Appearance CLEAR CLEAR Urine pH 5.5 4.5-7.5 Urine Specific [place] 1.028 1.000-1.030 Urine Protein NEG NEG Urine Glucose (UA) 3+ NEG Urine Ketones 1+ NEG Urine Occult Blood 3+ NEG Urine Nitrite NEG NEG Urine Bilirubin NEG NEG Urine Urobilinogen NEG NEG Urine Leukocyte Esterase NEG NEG Urine WBC (Auto) 1-5 0-5 /hpf Urine RBC (Auto) >30 0-4 /hpf Urine Hyaline Casts (Auto) 1-5 0-5 /lpf Urine Epithelial Cells (Auto) 5-10 0-5 /lpf Urine Bacteria (Auto) NEG NEG Impression Assessment and Plan 77 yo male w/ PMHX of Diastolic CHF, CAD, COPD on 2 L at night, CPAP, Afib (not on anticoagulation) DM on Metformin, Glimepiride, and kidney stones s/p laser lithotripsy presenting with abdominal discomfort, nausea admitted with PATRICK, lactic acidosis Abdominal Pain, Nausea -improved from arrival s/p Zofran, Pepcid in ED -ddx: ischemic bowel, ileus, gastritis, PUD, GERD, IBS, medication induced ( Doxycycline) -Given elevated Lactate, Ischemic bowel cannot be ruled out -CT Abdomen without contrast negative , no contrast used due to PATRICK -Consult GI -Diet: Full liquid diet -IV NS -D/C Doxycycline for possible contribution to abdominal discomfort ( started outpatient for possible COPD exacerbation) Elevated Lactate - ddx Metformin induced ( recently changed to extended release) , elevated lactate 11/2016 vs ischemic bowel which could explain abdominal pain, sepsis unlikely given normal vitals, lack of leukocytosis , exam findings F/u amylase, repeat lactate GI consult as above to evaluate for ischemic bowel Hold Metformin IV fluids as above PATRICK - baseline 1.0-1.3 - Cr 1.8 on arrival - likely prerenal, -possibly due to recent diarrhea -IV NS as above -Follow Cr -holf Lasix Paroxysmal Afib, heart disease, Diastolic CHF, HLD - normal sinus on arrival - stable - no rate control or anticoagulation - c/w statin - hold diuretics for PATRICK Depression -c/w lexapro COPD stable, on home oxygen 2 L at night c/w prednisone 10 daily c/w albuterol inh, prn albuterol nebs 2 L oxygen at night DM stable HOLD Metformin for likely contribution to elevated lactate Glimepiride held insulin sliding scale DVT PPx: Lovenox Code: Full Resident Physician Supervision Note: I was present with Dr. Matthews during the history and exam. I discussed the case with the resident and agree with the findings and plan as documented in the note. Any exceptions or clarifications are listed here: 77 y/o M Hx COPD, chronic diastolic CHF, Afib (not on anticoagulation), DM II, renal calculi - lithotripsy 1 month ago. Patient presents with intermittent abdominal discomfort x 1 week. States that the pain became severe today. Denies nausea, vomiting, diarrhea, constipation - denies fevers. Initial labs are notable for a lactic acid of 4.8 and PATRICK. No acute abnormalities are seen on CT. OE AAO x 3 S1,2 R CTA Distended - moderate diffuse tenderness - BS + No CCE No deficits P: Abd pain - may be ischemic vs ileus - lactic is elevated, however, this may be due to Metformin as he was recently placed on a long-acting formulation. Ileus is also in the differential due to DM. We will keep him on a liquid diet and consult GI. Lactic will be trended - we have no clear source of infection at present. An amylase is pending. PATRICK - Lasix held - IVF - monitor volume status due to CHF history. No evidence of ACS or COPD exacerbation on admission - rhythm is sinus. Documented By: Cooper Avendano Resuscitation Status VTE Prophylaxis Will order VTE Prophylaxis: Yes Note Total Time: Critical Care 30 - 74 minutes Resident Tracking Resident Involvement: Resident Care Provided Care Provided: Adult Hospital Medicine
[2017-12-14 02:55] VITALS: BP 135/75; PULSE 87; TEMP 36.4; Ht 182.9 cm; Wt 79.2 kg
[2017-12-14] MEDS ORDERED: GLUCOSE 10 TABS/TUBE PO PRN (03:15)
[2017-12-14] MEDS ORDERED: GLUCOSE 40% GEL 15 GM TUBE PO PRN (03:15)
[2017-12-14] MEDS ORDERED: DEXTROSE 50% 50 ML SYR IV PRN (03:15)
[2017-12-14] MEDS ORDERED: GLUCAGON FOR INJ 1 MG VIAL SQ PRN (03:15)
[2017-12-14] MEDS: SODIUM CHLORIDE 0.9% 1000ML 1,000 ML IV SCH ×2 (03:23→13:29)
[2017-12-14] MEDS ORDERED: IV FLUIDS COMPLETED PRN (04:30)
[2017-12-14] MEDS ORDERED: ENOXAPARIN 40 MG/0.4 ML SYR SQ SCH (06:00)
[2017-12-14] MEDS ORDERED: LEVOTHYROXINE 75 MCG TAB PO SCH (06:30)
[2017-12-14 07:12] VITALS: PULSE 75; O2SAT 96
[2017-12-14 07:13] LABS: BASO % 0.2 %; BASO ABS # 0.02 K/uL (0-0.2); EOS % 4.4 %; EOS ABS # 0.37 K/uL (0-0.5); HEMATOCRIT 32.4 % (42-52); HEMOGLOBIN 10.6 g/dL (14.0-18.0); IG# 0.39 K/uL (0.00-0.02); LYMPH % 19.1 %; MEAN CELL VOLUME 94.2 fL (80-100); MEAN CORPUSCULAR HEMOGLOBIN 30.8 pg (25-34); MEAN CORPUSCULAR HGB CONC 32.7 g/dl (32-36); MEAN PLATELET VOLUME 9.7 fL (7.4-10.4); MONO % 11.3 %; MONO ABS # 0.95 K/uL (0.11-0.59); NEUT % 60.3 %; NEUT ABS # 5.05 K/uL (1.4-6.5); PLATELET COUNT 170 K/uL (130-400); RED CELL DISTRIBUTION WIDTH CV 15.9 % (11.5-14.5); RED CELL DISTRIBUTION WIDTH SD 54.3 fL (36.4-46.3); WHITE BLOOD COUNT 8.38 K/uL (4.8-10.8)
[2017-12-14 07:30] VITALS: BP 108/66; PULSE 66; TEMP 36.4; O2SAT 99
[2017-12-14 07:54] LABS: ALBUMIN 2.5 gm/dl (3.4-5.0); CALCIUM 8.7 mg/dl (8.5-10.1); CREATININE 1.09 mg/dl (0.60-1.40)
[2017-12-14 07:59] LABS: TOTAL PROTEIN 5.4 gm/dl (6.4-8.2)
[2017-12-14] MEDS ORDERED: ARFORMOTEROL TART 15MCG/2ML VIAL INH SCH (08:00)
[2017-12-14] MEDS ORDERED: ASCORBIC ACID 500 MG TAB PO SCH (09:00)
[2017-12-14] MEDS ORDERED: ESCITALOPRAM OXALATE 10 MG TAB PO SCH (09:00)
[2017-12-14] MEDS: INSULIN ASPART 100 UNITS/ML 3 ML PEN SC SCH ×2 (09:03→12:04)
--- NOTE | 2017-12-14 09:57 | Gastrointestinal Consultation ---
Gastrointestinal Consultation Date of Consultation: Dec 14, 2017 Attending Physician: Dr. Matthews Consulting Physician: Gissel Perera PA-C Reason for Consultation: Abdominal pain, elevated lactic acid History of Present Illness Patient is a 77 year old male with a past medical history of heart disease, COPD on 2L at night, LEONARD, A fib, type 2 diabetes mellitus, and nephrolithiasis for which he recently had a lithotripsy with stent placement and subsequent removal. He presented to the hospital with intermittent abdominal discomfort for 1 week. He reports to me that the best way to describe the pain would be to call it a "pressure." He rates it as a 5/10. He denies bowel irregularities with the exception of 1 episode of diarrhea this morning. He denies vomiting. He denies heartburn, acid reflux, or rectal bleeding. He denies a history of GI issues in the past. He appears to have had an EGD in 2011 that indicated gastritis, a hiatal hernia, & a Schatzki ring. He reports a history of colonoscopies in the past but cannot recall his last one. Per the chart, it appears this was done in February 2017 and a polyp was removed, however the sample was reviewed by pathology and was subsequently deemed as partially digested food. He reports that all colonoscopies have all been unremarkable. He denies family history of GI abnormalities. He had a CT scan on admission that did not indicate any acute findings. There were several nonobstructing kidney stones but it was otherwise unremarkable. He has recently been admitted for EKG changes. Cardiology felt that this was likely due to early repolarization. His lactic acid was elevated to 2.8. He is currently being rehydrated. CBC and CMP with liver panel is unremarkable. He offers no further complaints with the exception that his abdomen is distended. Past Medical/Surgical History Medical Problems: (1) Acute GI bleeding Status: Acute (2) Anticoagulated Status: Acute (3) Calculus of right kidney Status: Acute (4) Chest tightness Status: Acute (5) Hydronephrosis with urinary obstruction due to renal calculus Status: Acute (6) Hyperglycemia Status: Acute (7) Leukocytosis Status: Acute (8) Renal colic Status: Acute (9) Right flank pain Status: Acute (10) Right flank pain Status: Acute (11) Shortness of breath Status: Acute (12) Symptomatic anemia Status: Acute (13) Ureterolithiasis Status: Acute Past Medical History: heart disease, COPD, LEONARD, A fib, DM2, nephrolithiasis Past Surgical History: colonoscopy, EGD, lithotripsy with stent placement Family History FHx: cancer FHx: heart disease FHx: lung disease Social History Smoking Status: Former Smoker Alcohol Use: occasionally Drug Use: none Marital Status: Housing Status: lives with significant other Occupation Status: retired Allergies Coded Allergies: Quinolones (Verified Allergy, Severe, ANAPHYLAXIS, 12/13/17) LISTED UNDER MD ORDERS, PT. VERIFIED ANAPHYLAXIS Formoterol (Verified Allergy, Intermediate, RASH, 12/13/17) LISTED UNDER MD ORDERS, PT. VERIFIED RASH ALLERGY Metoprolol (Verified Allergy, Intermediate, RASH, 12/13/17) Sulfa Antibiotics (Verified Allergy, Intermediate, severe red rash, ) Moxifloxacin (Verified Allergy, Unknown, throat swelling, 12/13/17) Ofloxacin (Verified Allergy, Unknown, SWELLING AROUND FACE, 12/13/17) Current Medications Home Meds and Scripts Medications Dose Route/Sig Max Daily Dose Days Date Category Levothyroxine Sodium 75 Mcg Tab 37.5 Mcg PO Q2D 90 12/13/17 Reported Monodox (Doxycycline Monohydrate) 100 Mg Cap 100 Mg PO BID 10 12/05/17 Rx Ascorbic Acid 500 Mg Tab 500 Mg PO DAILY 11/22/17 Reported Ferrous Sulfate 325 Mg Tab 650 Mg PO BIDM 11/22/17 Reported Vitamin D3 (Cholecalciferol) 2,000 Unit Cap 2,000 Inter.unit PO DAILY 11/22/17 Reported Mag-Ox (Magnesium Oxide) 400 Mg Tab 400 Mg PO BID 11/22/17 Reported Vitamin B-12 (Cyanocobalamin) 1,000 Mcg Tab 1,000 Mcg PO QAM 11/07/17 Reported Prednisone 10 Mg Tab 10 Mg PO QAM 11/07/17 Reported Flonase Allergy Relief (Fluticasone Propionate (Nasal)) 50 Mcg/Act Spr 2 Sprays VERONICA DAILY PRN 11/07/17 Reported Levothyroxine Sodium 75 Mcg Tab 75 Mcg PO Q2D 06/17/17 Reported Oxygen Gas 2 Liter NA HS 12/12/16 Reported Lasix (Furosemide) 20 Mg Tab 20 Mg PO DAILY PRN 12/12/16 Reported Lexapro (Escitalopram Oxalate) 10 Mg Tab 10 Mg PO QAM 12/12/16 Reported Brovana (Arformoterol Tartrate) 15 Mcg/2 Ml Neb 15 Mcg NEB BID 09/29/16 Reported Ventolin Hfa (Albuterol) 60 Puffs/5400 Mcg Aers 2 Puffs INH QID PRN 09/29/16 Reported Proventil 0.083% 2.5MG/3ML (Albuterol Sulf) 2.5 Mg/3 Ml Nebu 2.5 Mg NEB Q4H PRN 09/29/16 Reported Glimepiride 1 Mg Tab 2 Mg PO QAM 04/17/14 Reported Tudorza Pressair (Aclidinium [place]) 400 Mcg/Act Aer 1 Puff INH DAILY 12/26/13 Reported Osteo Bi-Flex Regular Str (Glucosamine-Chondroitin) 1 Tab Tab 1 Tab PO BID 12/26/13 Reported Zocor (Simvastatin) 80 Mg Tab 80 Mg PO HS 12/01/12 Reported Omeprazole 20 Mg Tab 20 Mg PO Q2D 12/01/12 Reported Glucophage (Metformin Hcl) 500 Mg Tab 1,000 Mg PO BID 12/01/12 Reported Centrum (Multiple Vitamins W/ Minerals) 1 Tab Tab 1 Tablet PO QAM 12/01/12 Reported Review of Systems Constitutional: No fever, No chills, No sweats, No fatigue Eyes: No problem reported ENT: No hearing loss Respiratory: + shortness of breath, + dyspnea on exertion, No cough Cardiac: No chest pain Abdomen: + pain (pressure that is improving), + problem reported (abdominal distention) Musculoskeletal: No joint pain Neuro: No problem reported Psych: No problem reported Heme: No problem reported Endo: No fatigue Skin: No rash, No itch Physical Exam Date Time Temp Pulse Resp B/P (MAP) Pulse Ox O2 Delivery O2 Flow Rate FiO2 12/14/17 07:30 36.4 66 18 108/66 (80) 99 Room Air 12/14/17 07:12 75 16 96 Room Air 12/14/17 02:55 36.4 87 12 135/75 Room Air 12/14/17 02:16 77 16 129/75 96 Room Air 12/13/17 23:01 83 18 115/67 97 Room Air 12/13/17 20:37 36.8 101 18 117/51 95 Room Air General Appearance: WD/WN, no apparent distress Eyes: normal inspection, PERRL ENT: hearing grossly normal Respiratory/Chest: chest non-tender, + decreased breath sounds, + wheezing Cardiovascular: regular rate, rhythm Abdomen: normal bowel sounds, non tender, + pertinent finding (abdominal distention) Extremities: non-tender Neurologic/Psych: alert, oriented x 3 Skin: normal color Laboratory Results Last 24 Hours Test 12/13/17 21:00 12/13/17 21:09 12/13/17 21:15 12/13/17 23:22 White Blood Count 10.32 K/uL Red Blood Count 3.94 M/uL Hemoglobin 12.6 g/dL Hematocrit 36.8 % Mean Corpuscular Volume 93.4 fL Mean Corpuscular Hemoglobin 32.0 pg Mean Corpuscular Hemoglobin Concent 34.2 g/dl Platelet Count 225 K/uL Mean Platelet Volume 9.9 fL Neutrophils (%) (Auto) 74.0 % Lymphocytes (%) (Auto) 13.2 % Monocytes (%) (Auto) 7.1 % Eosinophils (%) (Auto) 0.8 % Basophils (%) (Auto) 0.3 % Neutrophils # (Auto) 7.65 K/uL Lymphocytes # (Auto) 1.36 K/uL Monocytes # (Auto) 0.73 K/uL Eosinophils # (Auto) 0.08 K/uL Basophils # (Auto) 0.03 K/uL RDW Standard Deviation 52.8 fL RDW Coefficient of Variation 15.7 % Immature Granulocyte % (Auto) 4.6 % Immature Granulocyte # (Auto) 0.47 K/uL Sodium Level 138 mmol/L Potassium Level 4.6 mmol/L Chloride Level 106 mmol/L Carbon Dioxide Level 24 mmol/L Anion Gap 9.0 mmol/L Blood Urea Nitrogen 16 mg/dl Creatinine 1.80 mg/dl Est Creatinine Clear Calc Drug Dose 36.5 ml/min Estimated GFR () 40.6 Estimated GFR (Non- 35.0 BUN/Creatinine Ratio 9.1 Random Glucose 164 mg/dl Calcium Level 9.3 mg/dl Total Bilirubin 0.4 mg/dl Direct Bilirubin 0.1 mg/dl Aspartate Amino Transf (AST/SGOT) 10 U/L Alanine Aminotransferase (ALT/SGPT) 28 U/L Alkaline Phosphatase 72 U/L Total Protein 6.6 gm/dl Albumin 3.0 gm/dl Lipase 183 U/L Bedside Lactic Acid Venous 4.61 mmol/L 4.05 mmol/L Urine Color YELLOW Urine Appearance CLEAR Urine pH 5.5 Urine Specific [place] 1.028 Urine Protein NEG Urine Glucose (UA) 3+ Urine Ketones 1+ Urine Occult Blood 3+ Urine Nitrite NEG Urine Bilirubin NEG Urine Urobilinogen NEG Urine Leukocyte Esterase NEG Urine WBC (Auto) 1-5 /hpf Urine RBC (Auto) >30 /hpf Urine Hyaline Casts (Auto) 1-5 /lpf Urine Epithelial Cells (Auto) 5-10 /lpf Urine Bacteria (Auto) NEG Test 12/14/17 07:02 12/14/17 07:06 12/14/17 09:24 White Blood Count 8.38 K/uL Red Blood Count 3.44 M/uL Hemoglobin 10.6 g/dL Hematocrit 32.4 % Mean Corpuscular Volume 94.2 fL Mean Corpuscular Hemoglobin 30.8 pg Mean Corpuscular Hemoglobin Concent 32.7 g/dl Platelet Count 170 K/uL Mean Platelet Volume 9.7 fL Neutrophils (%) (Auto) 60.3 % Lymphocytes (%) (Auto) 19.1 % Monocytes (%) (Auto) 11.3 % Eosinophils (%) (Auto) 4.4 % Basophils (%) (Auto) 0.2 % Neutrophils # (Auto) 5.05 K/uL Lymphocytes # (Auto) 1.60 K/uL Monocytes # (Auto) 0.95 K/uL Eosinophils # (Auto) 0.37 K/uL Basophils # (Auto) 0.02 K/uL RDW Standard Deviation 54.3 fL RDW Coefficient of Variation 15.9 % Immature Granulocyte % (Auto) 4.7 % Immature Granulocyte # (Auto) 0.39 K/uL Sodium Level 138 mmol/L Potassium Level 4.0 mmol/L Chloride Level 108 mmol/L Carbon Dioxide Level 25 mmol/L Anion Gap 5.0 mmol/L Blood Urea Nitrogen 14 mg/dl Creatinine 1.09 mg/dl Est Creatinine Clear Calc Drug Dose 60.3 ml/min Estimated GFR () 74.4 Estimated GFR (Non- 64.2 BUN/Creatinine Ratio 13.0 Random Glucose 166 mg/dl Calcium Level 8.7 mg/dl Total Bilirubin 0.5 mg/dl Aspartate Amino Transf (AST/SGOT) 8 U/L Alanine Aminotransferase (ALT/SGPT) 23 U/L Alkaline Phosphatase 55 U/L Total Protein 5.4 gm/dl Albumin 2.5 gm/dl Globulin 2.9 gm/dl Albumin/Globulin Ratio 0.9 Amylase Level 64 U/L Lipase 251 U/L Lactic Acid Level 2.7 mmol/L Impression Patient is a 77 year old male with abdominal pressure and an elevated lactic acid. CT imaging has been unremarkable. Plan 1) Repeat lactic acid as patient has been rehydrated. Would consider also checking a troponin given his recent admissions/evaluations for abnormal EKG changes. 2) Add Protonix 40 mg daily. 3) Abdominal xray today for further evaluation of abdominal distention. 4) Supportive care per primary team. Thank you for allowing us to participate in the care of this patient. If you should have any further questions or concerns, do not hesitate to contact us. Agree with OSMEL Perez as above Patient was discharged prior to my evaluation.
--- NOTE | 2017-12-14 10:55 | DIAGNOSTIC IMAGING REPORT ---
PA CHEST RADIOGRAPH AND UPRIGHT AND SUPINE AP RADIOGRAPHS OF THE ABDOMEN CLINICAL HISTORY: Abdominal pain and abdominal distention. COMPARISON STUDY: Chest radiograph December 04, [address] of the abdomen and pelvis December 03, 2017. FINDINGS: Lung volumes are normal. Blunting of the right costophrenic angle is unchanged. There is no evidence for pulmonary edema. Cardiomegaly is unchanged. There is no consolidation to suggest pneumonia. There is no evidence for free air. The bowel gas pattern is normal. There are surgical clips from prostatectomy. IMPRESSION: 1. No free air or evidence of bowel obstruction. 2. No acute cardiopulmonary findings. Electronically signed by: Cesar Faye M.D. 12/14/2017 10:53 AM Dictated Date/Time: 12/14/2017 10:51 AM
[2017-12-14] MEDS ORDERED: PANTOprazole INJ 40 MG in SYRINGE 0 ML IV SCH (11:00)
[2017-12-14] MEDS ORDERED: METF-384 PO (14:36)
--- NOTE | 2017-12-14 14:42 | Discharge Instructions ---
Discharge Instructions Date of Service Dec 14, 2017. Admission Reason for Admission: Abdominal Pain, Elevated Lactic Acid Level Discharge Discharge Diagnosis / Problem: lactic acidosis and abdominal pain Discharge Goals Goal(s): Decrease discomfort Activity Recommendations Activity Limitations: resume your previous activity . Instructions / Follow-Up Instructions / Follow-Up Mr. Arthur kang were admitted for abdominal pain. You were found to have a high lactate level and also dehydrated. We gave you some fluids and lactate level improved. We took pictures of your abdomen which were reassuring. Our GI doctors also saw you and given your improvement were reassured. We believe your abdominal pain could have been from the doxycycline antibiotic you were taking for your COPD as it is known to cause problems with your gut. Please stop taking doxycycline. We also believe your lactate level could have been high from the change in your metformin to extended release tablets. We have switched you back to the regular metformin and sent a prescription to the [facility] [place] -Stop taking metformin extended release tablets -Take regular not extended release metformin 1000mg twice a day (prescription sent to [facility] at [facility] [place] -Please stop taking Doxycycline antibiotic recently prescribed to you -Please take your remaining home medications as prescribed and specified in your discharge instructions -Please follow up with your doctor/primary care doctor on Sunday -Please go to your doctor or the nearest ED or call 911 if you are having worsening abdominal pain, nausea, vomiting, chest pain, shortness of breath, or dizziness. Current Hospital Diet Patient's current hospital diet: Full Liquid Diet Discharge Diet Recommended Diet: Diabetes Type 2 Diet Pending Studies Studies pending at discharge: no Laboratory Results Hemoglobin A1c Test 11/22/17 16:35 Range/Units Estimated Average Glucose 212 mg/dl Hemoglobin A1c 9.0 H 4.5-5.6 % Medical Emergencies . Who to Call and When: Medical Emergencies: If at any time you feel your situation is an emergency, please call 911 immediately. . Non-Emergent Contact Non-Emergency issues call your: Primary Care Provider Call Non-Emergent contact if: temperature is above 101, your pain is worsening . . "Provider Documentation" section prepared by Delano Jimenez. .
[2017-12-14 15:10] VITALS: BP 108/66; PULSE 66; TEMP 36.4; O2SAT 99
--- NOTE | 2017-12-14 16:34 | Discharge Summary ---
Discharge Summary Date of Service Dec 14, 2017. Discharge Summary Admission Date: Dec 14, 2017 at 01:43 Discharge Date: Dec 14, 2017 Discharge Disposition: Home Principal Diagnosis: abdominal pain Problems/Secondary Diagnoses: elevated lactate PATRICK PAF CAD Diastolic CHF HLD COPD DM Depression Immunizations: Have You Had Influenza Vaccine: Yes Influenza Vaccine Date: May 20, 2017 History of Tetanus Vaccine?: uptd History of Pneumococcal: Yes Pneumococcal Date: Sep 02, 2012 History of Hepatitis B Vaccine: No Procedures: ABD/PELVIS NO IV OR ORAL CONT CT DOSE: 461.99 mGy.cm HISTORY: Pain. Nausea. ab pain, elevated LA TECHNIQUE: Multiaxial CT images of the abdomen and pelvis were performed without contrast. A dose lowering technique was utilized adhering to the principles of ALARA. COMPARISON STUDY: 03/15/2017 FINDINGS: Mild bibasilar atelectasis. Trace pleural fluid right base. Configuration of liver spleen and pancreas are unremarkable. Several small renal calcifications considered nonobstructing. Bladder is midline. Patient is status post prostatectomy. The bowel pattern is considered nonobstructive. The appendix is normal. IMPRESSION: 1. Trace pleural fluid right base with mild right basilar atelectasis. 2. Several nonobstructing renal calcifications. 3. Examination of the abdomen and pelvis is otherwise negative post prostatectomy. PA CHEST RADIOGRAPH AND UPRIGHT AND SUPINE AP RADIOGRAPHS OF THE ABDOMEN CLINICAL HISTORY: Abdominal pain and abdominal distention. COMPARISON STUDY: Chest radiograph December 04, [address] of the abdomen and pelvis December 03, 2017. FINDINGS: Lung volumes are normal. Blunting of the right costophrenic angle is unchanged. There is no evidence for pulmonary edema. Cardiomegaly is unchanged. There is no consolidation to suggest pneumonia. There is no evidence for free air. The bowel gas pattern is normal. There are surgical clips from prostatectomy. IMPRESSION: 1. No free air or evidence of bowel obstruction. 2. No acute cardiopulmonary findings. KUB CLINICAL HISTORY: ABDOMINAL PAIN/GI pain COMPARISON STUDY: 10/30/2017 FINDINGS: The soft tissues, psoas shadows, renal outlines and intestinal gas pattern appear normal. There is no evidence for bowel obstruction. No abnormal abdominal calcifications are seen. Multiple surgical clips in the low pelvis. IMPRESSION: Normal study. Consultations: GI Medication Reconciliation New Medications: Metformin Hcl (Glucophage) 1,000 Mg Tab 1000 MG PO BID for 30 Days, #60 TAB Continued Medications: Aclidinium [place] (Tudorza Pressair) 400 Mcg/Act Aer 1 PUFF INH DAILY Albuterol (Ventolin Hfa) 60 Puffs/5400 Mcg Aers 2 PUFFS INH QID PRN for Shortness of Breath Albuterol Sulf (Proventil 0.083% 2.5MG/3ML) 2.5 Mg/3 Ml Nebu 2.5 MG NEB Q4H PRN for SOB/Wheezing, EA Arformoterol Tartrate (Brovana) 15 Mcg/2 Ml Neb 15 MCG NEB BID, INHALER Ascorbic Acid (Ascorbic Acid) 500 Mg Tab 500 MG PO DAILY, TAB Cholecalciferol (Vitamin D3) 2,000 Unit Cap 2000 INTER.UNIT PO DAILY, CAP Cyanocobalamin (Vitamin B-12) 1,000 Mcg Tab 1000 MCG PO QAM, TAB Escitalopram (Lexapro) 10 Mg Tab 10 MG PO QAM Ferrous Sulfate (Ferrous Sulfate) 325 Mg Tab 650 MG PO BIDM Fluticasone Propionate (Nasal) (Flonase Allergy Relief) 50 Mcg/Act Spr 2 SPRAYS VERONICA DAILY PRN for Allergy Symptoms Furosemide (Lasix) 20 Mg Tab 20 MG PO DAILY PRN for Fluid Retention Glimepiride (Glimepiride) 1 Mg Tab 2 MG PO QAM Glucosamine-Chondroitin (Osteo Bi-Flex Regular Str) 1 Tab Tab 1 TAB PO BID Home O2 Therapy (Oxygen) Gas 2 LITER NA HS Levothyroxine Sodium (Levothyroxine Sodium) 75 Mcg Tab 75 MCG PO Q2D, TAB Levothyroxine Sodium (Levothyroxine Sodium) 75 Mcg Tab 37.5 MCG PO Q2D for 90 Days, TAB 3 Refills Magnesium Oxide (Mag-Ox) 400 Mg Tab 400 MG PO BID, TAB Multiple Vitamins W/ Minerals (Centrum) 1 Tab Tab 1 TABLET PO QAM Omeprazole (Omeprazole) 20 Mg Tab 20 MG PO Q2D Prednisone (Prednisone) 10 Mg Tab 10 MG PO QAM, TAB Simvastatin (Zocor) 80 Mg Tab 80 MG PO HS, TAB Discontinued Medications: Doxycycline Monohydrate (Monodox) 100 Mg Cap 100 MG PO BID for 10 Days, #20 CAP Metformin Hcl (Glucophage) 500 Mg Tab 1000 MG PO BID, TAB Discharge Exam Review of Systems: Constitutional: No fever Respiratory: + shortness of breath (chronic at baseline in the setting of COPD) Cardiovascular: No chest pain Abdomen: + problem reported (bloating this AM reported improved in the PM), No pain (improved), No nausea, No vomiting Genitourinary - Female: No dysuria Physical Exam: General Appearance: no apparent distress Eyes: normal inspection Neck: supple Respiratory/Chest: lungs clear, normal breath sounds Cardiovascular: regular rate, rhythm, no murmur Abdomen / GI: normal bowel sounds, non tender, soft, + distended, + pertinent finding (tympanic) Extremities: no calf tenderness, no pedal edema Neurologic/Psychiatric: alert Skin: warm/dry Hospital Course 77 yo male with hx of Diastolic CHF, CAD, COPD on 2L O2 at night, CPAP, Afib ( not on anticoagulation), DM (on Metformin, Glimepiride), and kidney stones s/p laser lithotripsy presented with abdominal pain, nausea and bloating. Found to be in PATRICK with elevated lactate of 4.6 which improved to 2.7 following rehydration which lowered Cr from 1.8 to 1.09 (baseline) as well. GI consulted and imaging including abdominal CT reassuring. No concern for abnormal bowel gas pattern, free air or bowel obstruction, as well as any acute cardiopulmonary etiology. Troponin negative and EKG reassuring. Lactate elevated with normal WBC likely in the setting of recent switch to extended release metformin which was dced and abdominal pain likely in the setting of recent antibiotic use (pt was on doxycycline day 9 on admission) vs. IBS. Abdominal pain and bloating improved prior to discharge. Abdominal Pain, Nausea - likely medication induced (on doxycycline day 9 for COPD exacerbation) vs. IBS. No concern for SBO or ischemic colitis at this time -improved s/p Zofran, Pepcid in ED; IVF -Lactate 4.6 downtrended to 2.7; no WBC elevation -CT Abdomen without contrast negative, no contrast used due to PATRICK -Consult GI - imaging reassuring - ordered repeat XR chest and abdomen which was reassuring: nl bowel gas pattern, no free air or bowel obstruction; no acute cardiopulmonary abnormality - ordered troponin - negative 0.031 Elevated Lactate likely extended release Metformin induced (recently changed) - improved - Sepsis unlikely given normal vitals, lack of leukocytosis and exam findings - imaging reassuring - no ischemic colitis - discharged with metformin non-extended release PATRICK - baseline 1.0-1.3 - Cr 1.8 on arrival improved to 1.09 s/p IVF - Held lasix - restarted on discharge Paroxysmal Afib, heart disease, Diastolic CHF, HLD - normal sinus, stable - no rate control or anticoagulation - Continued simvastatin 80mg - Held Lasix for PATRICK - restarted on discharge Depression - Continued lexapro COPD - stable, on home oxygen 2 L at night - Continued prednisone 10mg daily - Continued albuterol inh, prn albuterol nebs - Continued 2 L oxygen at night DM - stable - Held Metformin ER as likely contributed to elevated lactate --> witched to metformin non-ER on discharge - Held Glimepiride restarted on discharge - Received insulin sliding scale DVT PPx: Lovenox Code: Full Total Time Spent: Less than 30 minutes This includes examination of the patient, discharge planning, medication reconciliation, and communication with other providers. Discharge Instructions Please refer to the electronic Patient Visit Report (Discharge Instructions) for additional information. Additional Copies To Artis Gunderson M.D. Assessment/Plan Resident Physician Supervision Note: I was present with Dr. Jimenez during the history and exam. I discussed the case with the resident and agree with the findings and plan as documented in the note. Any exceptions or clarifications are listed here: Patient reports complete resolution of presenting symptoms and stable appetite and bowel movements at time of discharge. Would agree with discontinuation of abx therapy at this time, resumption of previous metformin regimen and daily omeprazole therapy as previously prescribed. Else as noted above.
[2017-12-14] MEDS ORDERED: SIMVASTATIN 80 MG TAB PO SCH (21:00)
[2017-12-15] MEDS ORDERED: LEVOTHYROXINE 75 MCG TAB PO SCH (06:30)
== END 2017-12-14 15:40 | disposition home or self-care (01) ==
LOC: C.EDB 20:35 → C.MS2W 12-14 01:43 → ENRESERV 12-14 02:15
PROVIDERS: ADMIT Internal Medicine; ATTEND Family Medicine
DX: R10.9 Unspecified abdominal pain (principal); R74.0 Nonspecific elevation of levels of transaminase and lactic acid dehydrogenase [LDH]; N17.9 Acute kidney failure, unspecified; I48.0 Paroxysmal atrial fibrillation; I25.10 Atherosclerotic heart disease of native coronary artery without angina pectoris; D64.9 Anemia, unspecified; I50.33 Acute on chronic diastolic (congestive) heart failure; E11.9 Type 2 diabetes mellitus without complications; E78.5 Hyperlipidemia, unspecified; F32.9 Major depressive disorder, single episode, unspecified; J44.9 Chronic obstructive pulmonary disease, unspecified; Z87.01 Personal history of pneumonia (recurrent); Z82.49 Family history of ischemic heart disease and other diseases of the circulatory system; Z79.84 Long term (current) use of oral hypoglycemic drugs; Z99.81 Dependence on supplemental oxygen; Z79.899 Other long term (current) drug therapy; Z88.1 Allergy status to other antibiotic agents; Z88.2 Allergy status to sulfonamides; Z88.8 Allergy status to other drugs, medicaments and biological substances; Z90.79 Acquired absence of other genital organ(s); Z87.442 Personal history of urinary calculi; Z87.891 Personal history of nicotine dependence

== ENCOUNTER → 2018-03-14 | Outpatient (CLI) | payer BC ==
[~2018-03-14] MED LIST changes: -DOXY100C76 PO; -GLC/500 PO
--- NOTE | 2018-03-14 11:31 | DIAGNOSTIC IMAGING REPORT ---
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 COMPARISON STUDY: 02/18/2018 FINDINGS: Nonobstructive bowel pattern. Vague calcification overlying the tip of the right lateral transverse process of L3. This is unchanged from the prior study. Bilateral nephrocalcinosis also unchanged. Stable postoperative changes low soft tissue pelvic region. IMPRESSION: 1. Stable bilateral nephrocalcinosis. 2. Vague calcification overlying the right transverse process of L3 again potentially related to a mid ureteral calculus. 3. No change from the prior study. The above report was generated using voice recognition software. It may contain grammatical, syntax or spelling errors. Electronically signed by: Trae Lucas M.D. 03/14/2018 11:29 AM Dictated Date/Time: 03/14/2018 11:28 AM
[2018-03-14 12:12] LABS: HEMATOCRIT 35.8 % (42-52); HEMOGLOBIN 11.9 g/dL (14.0-18.0); MEAN CELL VOLUME 98.6 fL (80-100); MEAN CORPUSCULAR HEMOGLOBIN 32.8 pg (25-34); MEAN CORPUSCULAR HGB CONC 33.2 g/dl (32-36); MEAN PLATELET VOLUME 10.3 fL (7.4-10.4); PLATELET COUNT 246 K/uL (130-400); RED CELL DISTRIBUTION WIDTH SD 50.2 fL (36.4-46.3); WHITE BLOOD COUNT 8.79 K/uL (4.8-10.8)
[2018-03-14 12:24] LABS: PTT PATIENT 25.2 SECONDS (21.0-31.0)
[2018-03-14 12:28] LABS: BLOOD UREA NITROGEN 18 mg/dl (7-18); CALCIUM 9.2 mg/dl (8.5-10.1); CARBON DIOXIDE 25 mmol/L (21-32); CREATININE 1.22 mg/dl (0.60-1.40); GLUCOSE 269 mg/dl (70-99); POTASSIUM 3.8 mmol/L (3.5-5.1); SODIUM 137 mmol/L (136-145)
[2018-03-14 12:29] LABS: HEMOGLOBIN A1C 9.5 % (4.5-5.6)
== END | disposition home or self-care (01) ==
LOC: C.LAB 10:58
PROVIDERS: ATTEND Urology
DX: E11.9 Type 2 diabetes mellitus without complications (principal); I48.92 Unspecified atrial flutter; D50.9 Iron deficiency anemia, unspecified; N20.1 Calculus of ureter

== ENCOUNTER → 2018-03-15 | Outpatient (CLI) | payer BC | END | disposition home or self-care (01) | LOC: C.LABBFT 09:35 | PROVIDERS: ATTEND Physician Assistant Medical | DX: C61 Malignant neoplasm of prostate (principal); R53.83 Other fatigue ==

== ENCOUNTER 2018-09-20 16:47 | Inpatient (IN) ==
[2018-09-20] MEDS ORDERED: ACETAMINOPHEN 325 MG TAB PO PRN (17:14)
[2018-09-20] MEDS ORDERED: ONDANSETRON INJ 2 MG/ML 2 ML VIAL IV PRN (17:14)
[2018-09-20] MEDS ORDERED: CARBOHYDRATES FOR HYPOGLYCEMIA PO PRN (17:14)
[2018-09-20] MEDS ORDERED: GLUCOSE 40% GEL 15 GM TUBE PO PRN (17:14)
[2018-09-20] MEDS ORDERED: DEXTROSE 50% 50 ML SYRINGE IV PRN (17:14)
[2018-09-20] MEDS ORDERED: GLUCOSE 10 TABS/TUBE PO PRN (17:14)
[2018-09-20] MEDS ORDERED: GLUCAGON FOR INJ 1 MG VIAL SQ PRN (17:14)
--- NOTE | 2018-09-20 18:00 | History & Physical Report ---
Date of Service September 20, 2018 Assessment & Plan (1) COPD (chronic obstructive pulmonary disease) with acute bronchitis: - Admit to [facility] - Acute exacerbation: This is likely in relation to recent decrease in prednisone from 10 mg to 5 mg. Patient may need an extended prednisone taper after acute exacerbation has improved. -We will treat with Solu-Medrol 60 mg IV q8h, duo nebs q4h and q2h prn, Mucinex , Tessalon Perles, sputum culture, cough syrup -Check flu swab, pt had flu vaccine this season. -CXR 2 view ordered -Check EKG -Consult pulmonology - Follows with Constantine Noriega as an outpatient. -Start on Doxycycline -Afebrile currently -Check CBC for leukocytosis, follow am labs. -Continue Tudorza inh, Brovana inh as per [facility] meds. -Cont fluconazole for chronic immunosuppresant therapy with chronic steriods and inhalers. -PT/OT consults (2) Diastolic CHF: - Chronic - Euvolemic upon admission - Last Echo completed in May 2018 with preserved EF, grade 1 diastolic dysfuction - Continue lasix 20 mg PO daily prn (3) HTN (hypertension): -Blood pressure stable -continue antihypertensives as per [facility] meds. -Continue lasix PO 20 mg daily prn for edema, currently pts lower extremities have 1+ pitting but are normal per pt and his . Monitor volume status during admission with diastolic CHF as above. (4) HLD (hyperlipidemia): - Cont statin therapy (5) Diabetes: - ISS with accuchecks achs -Lantus 12u BID while on IV steroids - Last A1C = 9.2 in Jun 2018, no need to recheck at this time. - Hold metformin and glimepiride (6) Hx of prostatic malignancy: - Stable (7) Anemia: - Iron deficiency anemia, continue iron supplementation (8) GERD (gastroesophageal reflux disease): (9) Hypothyroidism: - Continue levothyroxine with alternating doses as per [facility] meds. (10) Depression: (11) Anxiety: - Stable, continue lexapro (12) DVT prophylaxis: - Teds, scds, lovenox subq History of Present Illness Primary Care Provider: Artis Gunderson MD This is a 78 yo M with PMHx of COPD, chronic bronchitis, on chronic steroids, DM II, HTN, HLD, GERD, hypothyroidism, history of prostate cancer, iron deficiency anemia, nocturnal hypoxia on 2 L HS Pt presents as a direct admission from the pulmonary clinic where he was seen by Constantine Noriega PA-C. Patient has been experiencing progressive shortness of breath over the last week. The patient is unable to walk more than ~20 feet without becoming SOB. He is not dyspneic at rest. He had his prednisone reduced from 10 mg to 5 mg daily about 1 week ago and since that timeframe his SOB has worsened. Patient admits to needing to do an extra nebulizer treatment in the middle the night for the past 4 days, where he routinely uses nebulizer only q4h while awake. Patient admits to mostly dry cough with mild white to clear sputum production. Patient denies fever, chills or sweats. He denies any known sick contacts. His is present with him at bedside who helps support the history. At the pulmonology clinic the patient was administered a nebulizer treatment, Solu-Medrol IM injection, and had an EKG done which was fairly unremarkable. Allergies Allergy/AdvReac Type Severity Reaction Status Date / Time Quinolones Allergy Severe ANAPHYLAXIS Verified 08/19/18 09:50 formoterol Allergy Intermediate RASH Verified 08/19/18 09:50 metoprolol Allergy Intermediate RASH Verified 08/19/18 09:50 Sulfa (Sulfonamide Allergy Intermediate severe red Verified 08/19/18 09:50 Antibiotics) rash moxifloxacin Allergy Unknown throat Verified 08/19/18 09:50 swelling ofloxacin Allergy Unknown SWELLING Verified 08/19/18 09:50 AROUND FACE Home Medications Home Medications Medication Instructions Recorded Confirmed Type aclidinium bromide [Tudorza 1 puff INHALATION DAILY 08/03/18 09/20/18 History Pressair] albuterol sulfate [Ventolin HFA] 2 puff INHALATION QID PRN 08/03/18 09/20/18 History arformoterol [Brovana] 15 mcg INHALATION Q12H 08/03/18 09/20/18 History ascorbic acid (vitamin C) 500 mg PO TID 08/03/18 09/20/18 History cholecalciferol (vitamin D3) 2,000 unit PO DAILY 08/03/18 09/20/18 History codeine-guaifenesin [Cheratussin 5 ml PO Q4H PRN 08/03/18 09/20/18 History AC] cyanocobalamin (vitamin B-12) 1,000 mcg PO DAILY 08/03/18 09/20/18 History escitalopram oxalate 10 mg PO QAM 08/03/18 09/20/18 History ferrous sulfate [iron] 2 tab PO BID 08/03/18 09/20/18 History furosemide 20 mg PO DAILY PRN 08/03/18 09/20/18 History glimepiride 4 mg PO QAM 08/03/18 09/20/18 History glucosamine-chondroitin [Osteo 1 tab PO BID 08/03/18 09/20/18 History Bi-Flex] levothyroxine 37.5 mcg PO Q2D 08/03/18 09/20/18 History levothyroxine 75 mcg PO Q2D 08/03/18 09/20/18 History magnesium oxide 400 mg PO BID 08/03/18 09/20/18 History metformin 1,000 mg PO BID 08/03/18 09/20/18 History ogxpobtc-rlh-BN-lycopen-lutein 1 tab PO DAILY 08/03/18 09/20/18 History [Centrum Silver] prednisone 5 mg PO QAM 08/03/18 09/20/18 History simvastatin 80 mg PO HS 08/03/18 09/20/18 History fluconazole 100 mg PO QAM 08/16/18 09/20/18 History Past Med/Surg History Medical History Diastolic CHF Anxiety Depression Hypothyroidism GERD (gastroesophageal reflux disease) DVT prophylaxis Hx of prostatic malignancy HLD (hyperlipidemia) HTN (hypertension) COPD (chronic obstructive pulmonary disease) with acute bronchitis (Acute ) Diabetes (Chronic) Anemia Anemia (Acute) Atrial flutter (Acute) COPD (chronic obstructive pulmonary disease) (Acute) Heart disease (Acute) IRREGULAR RHYTHYM Hx of fall (Acute) Hyperlipidemia (Acute) Hypothyroidism (Acute) Kidney stones (Acute) Orbital fracture (Acute) HX OF LT eye from fall Pleural effusion (Acute) HX OF Prostate CA (Acute) Type 2 diabetes mellitus (Acute) Mild HOCM (hypertrophic obstructive cardiomyopathy) Surgical History H/O arthroscopy of shoulder (Acute) RT shoulder H/O cystoscopy (Acute) H/O tooth extraction (Acute) History of prostatectomy (Acute) Hx of colonoscopy Hx of esophagogastroduodenoscopy Social History Current Living Situation: Spouse Other Information That Helps Us Care for You: No Feels Safe at Home: Yes Safety Concerns: Feels Safe At This Time Smoking Status: Former smoker Do You Dip or Chew Tobacco: No Smoking End Date: 1962 Hx Alcohol Use: No Hx Substance Use: No Beliefs That Will Affect Care: None Preferred Language: Israeli Communication Ability: Effective Psychology Fellow Required: No Review of Systems Constitutional: No fever, sweats or chills Eyes: No diplopia, no worsening or blurred vision ENT: normal hearing, no trouble swallowing Respiratory: See HPI Cardiovascular: No chest pain, tightness or palpitations Abdomen: No pain, nausea, vomiting, diarrhea or constipation Musculoskeletal: No joint pain, calf pain, + chronic swelling of BLE, R >L Neurologic: No weakness, numbness/tingling, or balance problems Psychiatric:+ depression stable Skin: No rash or itch Physical Exam 2 Vital Signs (Past 24 Hours): Last Vital Signs Temp 36.6 C 09/20/18 17:16 Pulse 81 09/20/18 17:16 Resp 20 09/20/18 17:16 BP 138/67 09/20/18 17:16 Pulse Ox 95 09/20/18 17:16 Physical Exam: General: awake, alert, no apparent distress Head: Normocephalic, atraumatic ENT: PERRL, EOMI, no pharyngeal exudate, mucous membranes moist Chest: + Audible wheeze, on room air, + loud wheezes with expiration throughout , + crackles at bases, +tight breath sounds Cardiac: Regular rate and rhythm, no murmur, no JVD, normal peripheral pulses, good capillary refill Abdominal: NABS x 4 quadrants, soft, nontender to palpation, no rebound, guarding or tenderness Extremities: Normal inspection, 1+ peripheral edema with R worse than L, no erythema, calfs nontender to palpation Psych: Normal mood and affect Neuro: AAO x 3, strength intact bilaterally and related 5/5, no motor deficits, speech is clear, no peripheral sensory deficits Code Status & VTE Plan Code Status Full code - pt does not want heroic measures. Supervising Physician Co-Signing Physician Notes Patient seen and examined, chart reviewed, case discussed with EDUARDO Vásquez and I agree with her assessment and plan as documented above. Briefly, patient is an 78yo male with history of COPD presenting with 4-5 days of progressive SOB /SLOAN. Patient seen in pulmonary clinic today and found to be diffusely wheezing. He was administered Steroids and nebs and sent for direct admission. On exam he is afebrile, hemodynamically stable, stable respiratory status with adequate oxygenation on NC Diffusely wheezing with diminished air entry Exam otherwise unremarkable Labs and images reviewed. Assessment/Plan: Admit to medical floor. Continue steroids, nebs, doxycycline Insulin with ISS while on steroids Remainder of plan as above
[2018-09-20] MEDS ORDERED: FUROSEMIDE 20 MG TAB PO PRN (18:06)
[2018-09-20] MEDS ORDERED: AZITHROMYCIN 500 MG/255 ML BAG IV ONE (18:07)
[2018-09-20] MEDS ORDERED: PHARMACY GLYCEMIC MGMT CONSULT STA (18:31)
--- NOTE | 2018-09-20 18:59 | XRay Report ---
XR chest 2V routine CLINICAL HISTORY: COPD exacerbation, r/o infectious process dyspnea COMPARISON STUDY: 08/14/2018 FINDINGS: The bones soft tissues and hemidiaphragms are normal. The cardiomediastinal silhouette is n ormal. The lungs demonstrate potential minimal infiltrate left base. The pulmonary vasculature is nor mal. Mild emphysematous change. IMPRESSION: Minimal infiltrate left base.. Mild emphysematous change. The above report was generated using voice recognition software. It may contain grammatical, syntax or spelling errors. Electronically signed by: Trae Lucas M.D. 09/20/2018 6:58 PM
[2018-09-20] MEDS ORDERED: AZITHROMYCIN 500 MG in DEXTROSE 5% 250 ML IV SCH (20:00)
[2018-09-20] MEDS: ARFORMOTEROL TART 15MCG/2ML VIAL INH SCH (20:18)
[2018-09-20] MEDS: ALBUT/IPRATROP 3MG/0.5MG NEB 3 ML VIAL NEB SCH ×2 (20:18→23:14)
[2018-09-20 20:22] LABS: Prothrombin Time 10.3 Seconds (9.0-12.0)
[2018-09-20 20:23] LABS: Hemoglobin 12.7 g/dL (14.0-18.0); Mean Corpuscular Hgb Conc 32.6 g/dL (32-36); Mean Corpuscular Volume 99.5 fL (80-100); Mean Platelet Volume 10.2 fL (7.4-10.4); Platelet Count 262 K/uL (130-400); RDW Coefficient of Variation 13.1 % (11.5-14.5); RDW Standard Deviation 47.5 fL (36.4-46.3); Red Blood Count 3.92 M/uL (4.7-6.1); White Blood Count 10.53 K/uL (4.8-10.8)
[2018-09-20] MEDS: FERROUS SULFATE 325 MG TAB PO SCH (20:51)
[2018-09-20 20:53] LABS: Creatinine Clr Calc Pharmacy 39.2 ml/min; Est GFR (African American) 44.8; Est GFR (Non-African American) 38.6
[2018-09-20] MEDS: MAGNESIUM OXIDE 400 MG TAB PO SCH (20:53)
[2018-09-20] MEDS: guaiFENesin 600 MG TABCR PO SCH (20:54)
[2018-09-20] MEDS: BENZONATATE 100 MG CAPSULE PO SCH (20:56)
[2018-09-20] MEDS: SIMVASTATIN 80 MG TAB PO SCH (20:57)
[2018-09-20] MEDS: ASCORBIC ACID 500 MG TAB PO SCH (20:57)
[2018-09-20] MEDS ORDERED: NON-FORMULARY MEDICATION (Glucosamine-Chondroitin [Osteo Bi-Flex] 1 TAB) PO SCH (21:00)
[2018-09-20] MEDS ORDERED: LANTUS PER UNIT CHARGE SQ SCH (21:30)
[2018-09-20] MEDS: INSULIN ASPART 100 UNITS/ML 3 ML PEN SC SCH (21:55)
[2018-09-20] MEDS: DOXYCYCLINE HYCLATE 100 MG in DEXTROSE 5% 100 ML IV SCH (22:28)
[2018-09-20] MEDS: PATIENT'S HEIGHT AND/OR WEIGHT NEEDED SCH ×2 (22:45→22:58)
[2018-09-20] MEDS: methylPREDNISolone 60 MG in SYRINGE 0 ML IV SCH (23:06)
[2018-09-21] MEDS ORDERED: PHARMACY GLYCEMIC MGMT CONSULT PRN (00:26)
[2018-09-21] MEDS: INSULIN ASPART 100 UNITS/ML 3 ML PEN SC SCH ×6 (00:34→20:48)
[2018-09-21] MEDS: ALBUT/IPRATROP 3MG/0.5MG NEB 3 ML VIAL NEB SCH ×6 (04:08→23:32)
[2018-09-21] MEDS: methylPREDNISolone 60 MG in SYRINGE 0 ML IV SCH (05:37)
[2018-09-21] MEDS: LEVOTHYROXINE SODIUM 75 MCG TABLET PO SCH (05:37)
[2018-09-21 06:13] LABS: Hematocrit (blood only) 34.5 % (42-52); Hemoglobin 11.3 g/dL (14.0-18.0); Mean Corpuscular Hgb Conc 32.8 g/dL (32-36); Mean Corpuscular Volume 96.9 fL (80-100); Mean Platelet Volume 10.2 fL (7.4-10.4); Platelet Count 227 K/uL (130-400); RDW Standard Deviation 45.5 fL (36.4-46.3); Red Blood Count 3.56 M/uL (4.7-6.1)
[2018-09-21 06:53] LABS: Albumin Level 2.9 gm/dl (3.4-5.0); BUN Creatinine Ratio 21.4 (10-20); Calcium 8.9 mg/dl (8.5-10.1); Creatinine Clr Calc Pharmacy 54.3 ml/min; Est GFR (African American) 66.5; Est GFR (Non-African American) 57.3; Potassium 4.4 mmol/L (3.5-5.1)
[2018-09-21 06:55] LABS: Albumin Globulin Ratio 0.8 (0.9-2); Bilirubin,Total 0.3 mg/dl (0.2-1); Globulin 3.7 gm/dl (2.5-4.0); Total Protein 6.6 gm/dl (6.4-8.2)
[2018-09-21] MEDS: ARFORMOTEROL TART 15MCG/2ML VIAL INH SCH ×2 (07:31→20:09)
[2018-09-21] MEDS: BENZONATATE 100 MG CAPSULE PO SCH ×3 (07:58→20:44)
[2018-09-21] MEDS: FLUCONAZOLE 100 MG TAB PO SCH (07:58)
[2018-09-21] MEDS: ESCITALOPRAM OXALATE 10 MG TAB PO SCH (07:59)
[2018-09-21] MEDS: CHOLECALCIFEROL 1,000 UNITS TAB PO SCH (07:59)
[2018-09-21] MEDS: CEROVITE ADV FORMULA TAB PO SCH (07:59)
[2018-09-21] MEDS: ASCORBIC ACID 500 MG TAB PO SCH ×3 (08:00→20:46)
[2018-09-21] MEDS: MAGNESIUM OXIDE 400 MG TAB PO SCH ×2 (08:00→20:44)
[2018-09-21] MEDS: guaiFENesin 600 MG TABCR PO SCH ×2 (08:00→20:46)
[2018-09-21] MEDS: CYANOCOBALAMIN 500 MCG TABLET (VITAMIN B-12) PO SCH (08:00)
[2018-09-21] MEDS: FERROUS SULFATE 325 MG TAB PO SCH ×2 (08:01→20:44)
[2018-09-21] MEDS: ENOXAPARIN INJ 40 MG/0.4 ML SYR SQ SCH (08:03)
[2018-09-21] MEDS: GUAIFENESIN/CODEINE 100MG/10MG 5ML UDC PO PRN (08:08)
[2018-09-21] MEDS ORDERED: INSULIN GLARGINE SOLOSTAR 100 UNITS/ML 3 ML PEN SC SCH ×3 (09:00→21:00)
[2018-09-21] MEDS ORDERED: predniSONE 5 MG TAB PO SCH (09:00)
[2018-09-21] MEDS ORDERED: ERGOCALCIFEROL 50,000 UNITS CAP PO SCH (09:00)
--- NOTE | 2018-09-21 09:20 | Pharmacy Report ---
Glycemic Control Consultation - Date of Service September 21, 2018 - Scope Scope: Glycemic Pharmacist consulted for glycemic control and to write orders per [facility] inpatient glycemic control protocol - Objective Weight: 78.5 kg Accstaceyecks BSG (last 24hrs): 09/20/18 09/20/18 09/21/18 17:26 20:28 00:07 Glucose POC Glucose 219 H 347 H 303 H 09/21/18 09/21/18 09/21/18 04:16 05:27 07:52 Glucose 234 H POC Glucose 234 H 313 H 09/21/18 07:54 Glucose POC Glucose 248 H Laboratory Data (last 24hrs): 09/20/18 09/21/18 20:03 05:27 Potassium 4.4 Carbon Dioxide 26 Anion Gap 8.0 Creatinine 1.65 H 1.19 D Est Cr Clr Drug Dosing 39.2 54.3 HbA1c: 9.2% on 07/13/18 {outdated- reordered with AM labs} - Recent Pertinent Medications Outpatient Anti-diabetic Regimen: * Glimepiride 4mg PO QAM * Metformin 1,000mg PO BIDM Risk Factors for Insulin Resistance: * Steroids * Diet - Assessment & Plan Assessment & Plan: ASSESSMENT: * 78yo T2DM male with unknown degree of outpatient control. Most recent A1c was slightly above target range at 9.2% but is outdated. * Pt is maintained on oral antidiabetic agents as an outpatient * Oral agents are not recommended for inpatient use d/t drug interactions, changing PO intake, and difficulty titrating for acute hyper/hypoglycemia. ADA recommends re-initiating outpatient oral agents 1-2 days prior to discharge if/ when appropriate if they were held on admission. * Will hold oral agents for admission and utilize SQ basal bolus insulin regimen which is the recommended regimen for inpatient glycemic control. * Will initiate HIGH STRESS weight based insulin dosing for steroid induced hyperglycemia and titrate based on BSG trends. PLAN FOR INPATIENT GLYCEMIC CONTROL: weight and stress of 3 SQ basal bolus insulin dosing. taper with each step down in steroid dosing. * Holding outpatient oral diabetes medications * Basal insulin * Lantus 20 units SQ BID * Bolus insulin * NovoLog per scale ACHS or Q6hrs while NPO * Goal Range: Low 110 mg/dL - High 160 mg/dL * Correction Factor: 20 mg/dL/unit * Nutritional / Prandial insulin per carb ratio of 1 unit per 7 grams CHO consumed * Please note that the plan above was derived based on current level of insulin resistance and hospital stress. These recommendations are appropriate for inpatient admission only. Plan of care upon discharge will need to be reassessed to avoid potential outpatient hypo/hyperglycemia. Thank you.
[2018-09-21] MEDS: DOXYCYCLINE HYCLATE 100 MG in DEXTROSE 5% 100 ML IV SCH ×2 (09:37→20:36)
[2018-09-21] MEDS: PATIENT'S HEIGHT AND/OR WEIGHT NEEDED SCH (09:43)
--- NOTE | 2018-09-21 11:21 | Consultation Report ---
DATE OF CONSULTATION: 09/21/2018 PULMONARY CONSULTATION TIME: 9:45 a.m. REPORT OF CONSULTATION: The patient was seen in room 401. He is an 78-year-old male with a history of COPD for 10 or more years. He has had fairly frequent exacerbations. He states he has been admitted to the hospital other times with his breathing. He did have outpatient bronchoscopy done 06/12/2018 for removal of secretions. The patient was noted to have an exacerbation, treated as an outpatient on 07/24/2018. He began with a worsening of his shortness of breath about 4 days prior to admission. He had increased cough. There was very little sputum. He felt much more congested in the chest. He states wheezes could be heard across the room. He saw Constantine Noriega PA-C in the office on 09/20/2018. He was very tight and a decision was made to refer him for admission. The patient denies chills, fevers or sweats. He denies chest pains. Today, he states he feels much better than he did yesterday. In addition to the COPD, the patient has obstructive sleep apnea. He wears nasal CPAP at a pressure of 11. CPAP apparently was not ordered for him last night. The patient has very minimal history of smoking. He states he quit smoking about age 20 and he had smoked for maybe 5 years. He was in the [place] where he may have had some asbestos exposure. 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 PAST SURGICAL HISTORY: 1. Cataract surgery. 2. Prostate surgery for cancer. 3. Rotator cuff surgery. 4. Cystoscopy done 08/19/2018 because of a bladder stone. PAST MEDICAL HISTORY: 1. Sinusitis. 2. Atrial fib/flutter. 3. Nephrolithiasis. 4. Prostate CA. 5. Diastolic CHF. 6. LEONARD. 7. Diabetes. 8. Hypertension. 9. Hypothyroidism. 10. Hyperlipidemia. 11. Reflux. 12. Anemia. 13. Anxiety. 14. Depression. 15. Right pleural effusion, 2016. FAMILY HISTORY: Both parents in their 80s. Mother had heart disease. He did not know exactly what his father had. ALLERGIES: 1. QUINOLONES. 2. SULFA. 3. FORMOTEROL. 4. METOPROLOL. REVIEW OF SYSTEMS: The patient states his energy level is a little low. He states he generally sleeps well with his CPAP and he states he is compliant. He denies heartburn. He states he has some degree of chronic soft bowel movements which is believed to be secondary to metformin. He has some degree of chronic lower extremity edema. The patient was not overall the best historian, however. The remainder of the review of systems is negative. Ten systems reviewed. MEDICATIONS AT HOME: 1. Tudorza. 2. Ventolin HFA p.r.n. 3. Brovana q. 12. 4. Ascorbic acid. 5. Vitamin D3. 6. Guaifenesin with codeine. 7. B12. 8. Escitalopram 10 mg daily. 9. Ferrous sulfate 2 tabs b.i.d. 10. Fluconazole. 11. Furosemide. 12. Glimepiride 4 mg daily. 13. Osteo Bi-Flex. 14. Levothyroxine. 15. Magnesium oxide b.i.d. 16. Metformin 1000 mg b.i.d. 17. Prednisone baseline 5 mg daily. 18. Simvastatin 80 mg daily. PHYSICAL EXAMINATION: GENERAL: The patient is a pleasant 78-year-old male who was cooperative, alert and oriented. He was in no distress. Weight is 78.5 kilograms with a BMI of 23.5. HEENT: Eye exam shows implants bilaterally. Nares were clear. Mouth exam shows an absence of teeth. NECK: Palpation of the neck reveals no lymph nodes or masses. CHEST: Showing somewhat diminished excursion. Heart rate 76 per minute. Rhythm was regular. Blood pressure 136/72. LUNGS: Respiratory rate was 20. Breath sounds were decreased. Wheezes were heard on expiration with marked prolongation to the expiratory phase of respiration. Saturation is 94% on 2 liters. ABDOMEN: Soft. Bowel sounds were very active. There was no tenderness to palpation or definite mass. EXTREMITIES: Reveals +1 edema bilaterally. There was no cyanosis or clubbing. LABORATORY DATA: White count is 11.2. Hemoglobin 11.3. Platelets 227,000. INR was 1.0. Electrolytes show sodium 137, potassium 4.4, chloride 103, bicarbonate 26. BUN is 26 with a creatinine of 1.19. Creatinine yesterday was 1.65. Blood sugar today was as high as 313. Flu test was negative. Chest x-ray showed small area of streak-like density at the left lung base that I suspect is atelectasis. I do not think this represents pneumonia. Emphysematous changes were noted. EKG shows a sinus rhythm with a first-degree heart block. The T waves are inverted across the precordium V1 through V5. There is a right bundle-branch block. There has been a change in the T waves compared with prior EKG done 08/14/2018. The [place] interval has prolonged on the current EKG compared with the prior as well. Echocardiogram that had previously been done on 06/06/2018 showed left ventricular hypertrophy with normal left ventricular systolic function and grade 1 diastolic function. IMPRESSION: 1. Chronic obstructive pulmonary disease with exacerbation. 2. Small left basilar density, likely representing atelectasis. 3. Abnormal EKG, which is changed compared with 08/14/2018. COMMENTS AND RECOMMENDATIONS: 1. Would decrease the methylprednisolone dose in light of the clinical improvement as well as the markedly elevated blood sugars. Would switch to 40 mg IV q. 12 hours. 2. The patient wears CPAP at home with a pressure of 11. I suggested to him that his family bring in his machine or otherwise we would order CPAP. 3. Agree with the DuoNeb treatments as currently ordered. 4. Defer to the hospitalist as to whether any repeat EKG or other cardiac evaluation should be done in light of the change of the morphology of the chest leads.
--- NOTE | 2018-09-21 14:21 | Hospitalist Progress Note ---
Date of Service September 21, 2018 Assessment & Plan (1) COPD (chronic obstructive pulmonary disease) with acute bronchitis: (2) Diastolic CHF: (3) HTN (hypertension): (4) HLD (hyperlipidemia): (5) Diabetes: (6) Hx of prostatic malignancy: (7) Anemia: (8) GERD (gastroesophageal reflux disease): (9) Hypothyroidism: (10) Depression: (11) Anxiety: (12) DVT prophylaxis: 78 yo M with PMHx of COPD, chronic bronchitis, on chronic steroids, DM II , HTN, HLD, GERD, hypothyroidism, history of prostate cancer, iron deficiency anemia, nocturnal hypoxia on 2 L HS Direct admission from from the pulmonary clinic where he was seen by Constantine Noriega PA-C. COPD exacerbation A little improving, Has been on nebulizer treatment, antibiotic, Pulmonology input appreciated decreased Solu-Medrol, cont duo nebs q4h and q2h prn, cont Mucinex, Tessalon Perles, sputum culture, cough syrup Abnormal EKG with T wave inversion, which is new, check cardiac enzyme troponin x1 set more, check repeat EKG, Diastolic CHF: chronic, euvolemic upon admission, Last Echo completed in May 2018 with preserved EF, grade 1 diastolic dysfuction, Continue lasix 20 mg PO daily prn Hypertension dyslipidemia, anemia, GERD, depression, stable continue current medication, Hypoglycemic with uncontrolled diabetes type 2, blood glucose worse because of steroid use, continue Lantus, pharmacy adjust for the dose of insulin Continue current care, H&P reviewed DVT prophylaxis ordered Subjective Reports still has significant wheezing, however have some cough, nonproductive, no lower extremity edema, Review of Systems Constitutional: Positive weakness, or fatigue Respiratory: wheezing, or dyspnea on exertion, cough, nonproductive Cardiac: No chest pain, No orthopnea, No PND, No claudication, No palpitations , Abdomen: No pain, No nausea, No vomiting, No diarrhea, No constipation, No GI bleeding Musculoskeletal: No joint pain, No muscle pain, No swelling, No calf pain, No problem reported : No dysuria, No urinary frequency, No incontinence, No hematuria Neurologic: No paralysis, No weakness, No numbness/tingling, No vertigo, No balance problems Psychiatric: No depression symptoms, No anhedonism, No anxiety, No insomnia, No substance abuse Heme: No abnormal bleeding/bruising, No clotting problems, No swollen lymph nodes, No night sweats Skin: No rash, No itch, No new/changing skin lesions, No color change, No bleeding Physical Exam 2 Vital Signs (Past 24 Hours): Last Vital Signs Temp 36.4 C L 09/21/18 07:43 Pulse 85 09/21/18 10:55 Resp 16 09/21/18 10:55 BP 136/72 09/21/18 07:43 Pulse Ox 97 09/21/18 10:55 Physical Exam: General Appearance: WD/WN, no apparent distress, Eyes: normal inspection, PERRL, EOMI, sclerae normal ENT: normal ENT inspection, hearing grossly normal, pharynx normal Neck: supple, no adenopathy, thyroid normal, no JVD, no carotid bruits, trachea midline Respiratory/Chest: chest non-tender, decreased breath sounds, no respiratory distress, no accessory muscle use, breath sounds, rales, has diffuse wheezing Cardiovascular: regular rate, rhythm, no JVD, no murmur Abdomen: normal bowel sounds, non tender, soft, no organomegaly, Extremities: normal range of motion, non-tender, normal inspection, no pedal edema, no calf tenderness, normal capillary refill , pelvis stable, joint has no limited range of motion, capillary refill is normal, no cyanosis clubbing Neurologic/Psychiatric: 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
[2018-09-21] MEDS: methylPREDNISolone 40 MG in SYRINGE 0 ML IV SCH (17:30)
[2018-09-21] MEDS ORDERED: AZITHROMYCIN 250 MG in DEXTROSE 5% 250 ML IV SCH (20:00)
[2018-09-21] MEDS: SIMVASTATIN 80 MG TAB PO SCH (20:46)
[2018-09-22] MEDS: INSULIN ASPART 100 UNITS/ML 3 ML PEN SC SCH ×6 (00:20→20:23)
[2018-09-22] MEDS: ALBUT/IPRATROP 3MG/0.5MG NEB 3 ML VIAL NEB SCH ×6 (03:23→23:30)
[2018-09-22] MEDS: methylPREDNISolone 40 MG in SYRINGE 0 ML IV SCH ×2 (05:18→17:41)
[2018-09-22 06:21] LABS: Hematocrit (blood only) 34.4 % (42-52); Hemoglobin 11.3 g/dL (14.0-18.0); Mean Corpuscular Hgb Conc 32.8 g/dL (32-36); Mean Corpuscular Volume 97.2 fL (80-100); Mean Platelet Volume 10.2 fL (7.4-10.4); Platelet Count 253 K/uL (130-400); RDW Standard Deviation 45.7 fL (36.4-46.3); Red Blood Count 3.54 M/uL (4.7-6.1); White Blood Count 15.05 K/uL (4.8-10.8)
[2018-09-22] MEDS ORDERED: LEVOTHYROXINE SODIUM 75 MCG TABLET PO SCH (06:30)
[2018-09-22 06:51] LABS: Albumin Level 2.9 gm/dl (3.4-5.0); Calcium 8.9 mg/dl (8.5-10.1); Est GFR (African American) 76.4; Potassium 4.2 mmol/L (3.5-5.1)
[2018-09-22 06:54] LABS: Albumin Globulin Ratio 0.9 (0.9-2); Bilirubin,Total 0.2 mg/dl (0.2-1); Globulin 3.3 gm/dl (2.5-4.0); Total Protein 6.2 gm/dl (6.4-8.2)
[2018-09-22] MEDS: ARFORMOTEROL TART 15MCG/2ML VIAL INH SCH ×2 (07:33→19:09)
[2018-09-22] MEDS ORDERED: INSULIN GLARGINE SOLOSTAR 100 UNITS/ML 3 ML PEN SC ONE (08:30)
[2018-09-22] MEDS: ENOXAPARIN INJ 40 MG/0.4 ML SYR SQ SCH (08:58)
[2018-09-22] MEDS: BENZONATATE 100 MG CAPSULE PO SCH ×3 (08:59→20:18)
[2018-09-22] MEDS: ASCORBIC ACID 500 MG TAB PO SCH ×3 (08:59→20:18)
[2018-09-22] MEDS: DOXYCYCLINE HYCLATE 100 MG in DEXTROSE 5% 100 ML IV SCH (09:00)
[2018-09-22] MEDS: GUAIFENESIN/CODEINE 100MG/10MG 5ML UDC PO PRN ×2 (09:05→12:53)
[2018-09-22] MEDS: MAGNESIUM OXIDE 400 MG TAB PO SCH ×2 (09:06→20:19)
[2018-09-22] MEDS: FLUCONAZOLE 100 MG TAB PO SCH (09:06)
[2018-09-22] MEDS: CHOLECALCIFEROL 1,000 UNITS TAB PO SCH (09:06)
[2018-09-22] MEDS: FERROUS SULFATE 325 MG TAB PO SCH ×2 (09:06→20:18)
[2018-09-22] MEDS: CYANOCOBALAMIN 500 MCG TABLET (VITAMIN B-12) PO SCH (09:06)
[2018-09-22] MEDS: guaiFENesin 600 MG TABCR PO SCH ×2 (09:06→20:19)
[2018-09-22] MEDS: CEROVITE ADV FORMULA TAB PO SCH (09:06)
[2018-09-22] MEDS: ESCITALOPRAM OXALATE 10 MG TAB PO SCH (09:06)
--- NOTE | 2018-09-22 09:54 | Hospitalist Progress Note ---
Date of Service September 22, 2018 Assessment & Plan (1) COPD (chronic obstructive pulmonary disease) with acute bronchitis: (2) Diastolic CHF: (3) HTN (hypertension): (4) HLD (hyperlipidemia): (5) Diabetes: (6) Hx of prostatic malignancy: (7) Anemia: (8) GERD (gastroesophageal reflux disease): (9) Hypothyroidism: (10) Depression: (11) Anxiety: (12) DVT prophylaxis: 78 yo M with PMHx of COPD, chronic bronchitis, on chronic steroids, DM II , HTN, HLD, GERD, hypothyroidism, history of prostate cancer, iron deficiency anemia, nocturnal hypoxia on 2 L HS Direct admission from from the pulmonary clinic where he was seen by Constantine Noriega PA-C. COPD exacerbation, Slowly improving, Has been on nebulizer treatment, antibiotic, Pulmonology input appreciated decreased Solu-Medrol, cont duo nebs q4h and q2h prn, cont Mucinex, Tessalon Perles, sputum culture, cough syrup I will continue Solu-Medrol the same dose for 1 day more because still wheezing, I will change IV doxycycline to p.o. I feel needed totally 7 days to be good enough, Today's number 3 out of 7 days Abnormal EKG with T wave inversion, which is new, checked cardiac enzyme troponin x1 set Which was negative, checked repeat EKG Seems T wave inversion is better, Diastolic CHF: chronic, euvolemic upon admission, Last Echo completed in May 2018 with preserved EF, grade 1 diastolic dysfuction, lasix 20 mg PO daily prn , At home, I do not feel patient needed Lasix for now because he has no difficult breathing no crackle no lower extremity edema Hypertension dyslipidemia, anemia, GERD, depression, stable continue current medication, Hypoglycemic with uncontrolled diabetes type 2, blood glucose worse because of steroid use, continue Lantus, pharmacy adjust for the dose of insulin Continue current care, H&P reviewed DVT prophylaxis ordered Possible discharge home with oral tapering dose of prednisone, and oral doxycycline in 1-2 days Subjective Reports wheezing is better,no cough, no lower extremity edema, Review of Systems Constitutional: Positive weakness, or fatigue Respiratory: wheezing, or dyspnea on exertion, nonproductive Cardiac: No chest pain, No orthopnea, No PND, No claudication, No palpitations , Abdomen: No pain, No nausea, No vomiting, No diarrhea, Musculoskeletal: No joint pain, No muscle pain, No swelling, No calf pain, No problem reported : No dysuria, No urinary frequency, No incontinence, Neurologic: No paralysis, No weakness, No numbness/tingling, No vertigo, No balance problems Psychiatric: No depression symptoms, No anhedonism, No anxiety, Heme: No abnormal bleeding/bruising, No clotting problems, Skin: No rash, No itch, No new/changing skin lesions, No color change, No bleeding Physical Exam 2 Vital Signs (Past 24 Hours): Last Vital Signs Temp 36.4 C L 09/22/18 07:00 Pulse 71 09/22/18 07:36 Resp 20 09/22/18 07:36 BP 101/61 09/22/18 07:36 Pulse Ox 100 09/22/18 07:36 Physical Exam: General Appearance: WD/WN, no apparent distress, Eyes: normal inspection, PERRL, EOMI, sclerae normal ENT: normal ENT inspection, hearing grossly normal, pharynx normal Neck: supple, no adenopathy, thyroid normal, no JVD, no carotid bruits, trachea midline Respiratory/Chest: chest non-tender, decreased breath sounds, no respiratory distress, Some wheezing in the left anterior lung, no wheezing in the back of the lungs, no accessory muscle use, breath sounds, rales, Cardiovascular: regular rate, rhythm, no JVD, no murmur Abdomen: normal bowel sounds, non tender, soft, no organomegaly, Extremities: normal range of motion, non-tender, normal inspection, no pedal edema, no calf tenderness, normal capillary refill , pelvis stable, joint has no limited range of motion, capillary refill is normal, no cyanosis clubbing Neurologic/Psychiatric: second facing baster II-XII nml as tested, no motor/sensory deficits, alert, normal mood/affect, oriented x 3 Skin: normal color, warm/dry, no rash Lymphatic: no adenopathy Results & Data Laboratory Results Laboratory Results - last 24 hr 09/21/18 09/21/18 09/21/18 11:19 14:45 16:46 WBC RBC Hgb Hct MCV MCH MCHC RDW Std Deviation RDW Coeff of Ruddy Plt Count MPV Sodium Potassium Chloride Carbon Dioxide Anion Gap BUN Creatinine Est Cr Clr Drug Dosing Est GFR ( Amer) Est GFR (Non-Af Amer) BUN/Creatinine Ratio Glucose POC Glucose 274 H 262 H Calcium Total Bilirubin AST ALT Alkaline Phosphatase Troponin I 0.018 Total Protein Albumin Globulin Albumin/Globulin Ratio 09/21/18 09/21/18 09/22/18 19:58 23:58 04:25 WBC RBC Hgb Hct MCV MCH MCHC RDW Std Deviation RDW Coeff of Ruddy Plt Count MPV Sodium Potassium Chloride Carbon Dioxide Anion Gap BUN Creatinine Est Cr Clr Drug Dosing Est GFR ( Amer) Est GFR (Non-Af Amer) BUN/Creatinine Ratio Glucose POC Glucose 330 H 264 H 217 H Calcium Total Bilirubin AST ALT Alkaline Phosphatase Troponin I Total Protein Albumin Globulin Albumin/Globulin Ratio 09/22/18 09/22/18 09/22/18 05:54 05:54 08:20 WBC 15.05 H RBC 3.54 L Hgb 11.3 L Hct 34.4 L MCV 97.2 MCH 31.9 MCHC 32.8 RDW Std Deviation 45.7 RDW Coeff of Ruddy 13.0 Plt Count 253 MPV 10.2 Sodium 139 Potassium 4.2 Chloride 106 Carbon Dioxide 25 Anion Gap 8.0 BUN 27 H Creatinine 1.06 Est Cr Clr Drug Dosing 61.0 Est GFR ( Amer) 76.4 Est GFR (Non-Af Amer) 66.0 BUN/Creatinine Ratio 25.0 H Glucose 198 H POC Glucose 222 H Calcium 8.9 Total Bilirubin 0.2 AST 9 L ALT 23 Alkaline Phosphatase 51 Troponin I Total Protein 6.2 L Albumin 2.9 L Globulin 3.3 Albumin/Globulin Ratio 0.9
--- NOTE | 2018-09-22 16:54 | Progress Note ---
DATE: 09/22/2018 PULMONARY PROGRESS NOTE TIME: 3:40 p.m. SUBJECTIVE: The patient is feeling much better. He is significantly less short of breath. His cough is much improved. His was present during this evaluation. She acknowledges that he is much better. OBJECTIVE: GENERAL: The patient was comfortable. He was up walking around without difficulty. VITAL SIGNS: Temperature is 36.6. CARDIAC: Rate is 78. Rhythm is regular. Blood pressure 135/72. LUNGS: Auscultation of the lung art revealed mild scattered rhonchi. The aeration is much improved compared with yesterday. Respiratory rate 16, saturation on room air 97%. EXTREMITIES: Showed no cyanosis, clubbing or edema. LABORATORY DATA: White count today is up to 15.05. This is likely related to steroids. Hemoglobin 11.3. Platelets 253,000. Electrolytes today are normal. BUN is 27 with creatinine 1.06. Blood sugar this morning was as high as 298. IMPRESSION: 1. Chronic obstructive pulmonary disease exacerbation. 2. Left basilar infiltrate, likely representing mild atelectasis. 3. Obstructive sleep apnea. COMMENTS AND RECOMMENDATIONS: The patient is doing very well. His breathing is significantly improved. We would change to p.o. prednisone. If he continues to improve as such, he may well be able to be discharged tomorrow with a tapering dose of prednisone. His blood sugars are elevated and will need a close followup.
[2018-09-22] MEDS: DOXYCYCLINE HYCLATE 100 MG CAP PO SCH (20:17)
[2018-09-22] MEDS: SIMVASTATIN 80 MG TAB PO SCH (20:20)
[2018-09-22] MEDS ORDERED: INSULIN GLARGINE SOLOSTAR 100 UNITS/ML 3 ML PEN SC SCH (21:00)
[2018-09-23] MEDS: INSULIN ASPART 100 UNITS/ML 3 ML PEN SC SCH ×4 (00:10→13:01)
[2018-09-23] MEDS: ALBUT/IPRATROP 3MG/0.5MG NEB 3 ML VIAL NEB SCH ×4 (04:49→15:08)
[2018-09-23] MEDS: methylPREDNISolone 40 MG in SYRINGE 0 ML IV SCH (05:46)
[2018-09-23] MEDS: LEVOTHYROXINE SODIUM 75 MCG TABLET PO SCH (05:48)
[2018-09-23 05:49] LABS: Hematocrit (blood only) 34.3 % (42-52); Hemoglobin 11.5 g/dL (14.0-18.0); Mean Corpuscular Hgb Conc 33.5 g/dL (32-36); Mean Corpuscular Volume 97.7 fL (80-100); Mean Platelet Volume 10.1 fL (7.4-10.4); Platelet Count 242 K/uL (130-400); RDW Standard Deviation 46.1 fL (36.4-46.3); Red Blood Count 3.51 M/uL (4.7-6.1); White Blood Count 13.88 K/uL (4.8-10.8)
[2018-09-23 06:22] LABS: Albumin Level 2.9 gm/dl (3.4-5.0); BUN Creatinine Ratio 27.4 (10-20); Calcium 8.7 mg/dl (8.5-10.1); Est GFR (African American) 64.5; Est GFR (Non-African American) 55.6; Potassium 4.3 mmol/L (3.5-5.1)
[2018-09-23 06:25] LABS: Albumin Globulin Ratio 0.9 (0.9-2); Bilirubin,Total 0.2 mg/dl (0.2-1); Globulin 3.3 gm/dl (2.5-4.0); Total Protein 6.2 gm/dl (6.4-8.2)
[2018-09-23] MEDS: ARFORMOTEROL TART 15MCG/2ML VIAL INH SCH (06:59)
[2018-09-23 07:05] LABS: Estimated Average Glucose 223 mg/dl
[2018-09-23] MEDS: CHOLECALCIFEROL 1,000 UNITS TAB PO SCH (08:50)
[2018-09-23] MEDS: CEROVITE ADV FORMULA TAB PO SCH (08:50)
[2018-09-23] MEDS: ESCITALOPRAM OXALATE 10 MG TAB PO SCH (08:50)
[2018-09-23] MEDS: guaiFENesin 600 MG TABCR PO SCH (08:51)
[2018-09-23] MEDS: ASCORBIC ACID 500 MG TAB PO SCH ×2 (08:51→16:33)
[2018-09-23] MEDS: FLUCONAZOLE 100 MG TAB PO SCH (08:51)
[2018-09-23] MEDS: CYANOCOBALAMIN 500 MCG TABLET (VITAMIN B-12) PO SCH (08:51)
[2018-09-23] MEDS: MAGNESIUM OXIDE 400 MG TAB PO SCH (08:51)
[2018-09-23] MEDS: DOXYCYCLINE HYCLATE 100 MG CAP PO SCH (08:51)
[2018-09-23] MEDS: BENZONATATE 100 MG CAPSULE PO SCH ×2 (08:52→16:33)
[2018-09-23] MEDS: ENOXAPARIN INJ 40 MG/0.4 ML SYR SQ SCH (08:52)
[2018-09-23] MEDS: FERROUS SULFATE 325 MG TAB PO SCH (08:52)
[2018-09-23] MEDS ORDERED: INSULIN GLARGINE SOLOSTAR 100 UNITS/ML 3 ML PEN SC SCH (09:00)
--- NOTE | 2018-09-23 09:11 | Hospitalist Progress Note ---
Date of Service September 23, 2018 Assessment & Plan (1) COPD (chronic obstructive pulmonary disease) with acute bronchitis: - Acute exacerbation: ( pt has had a recent decrease in prednisone from 10 mg to 5 mg). -We will treat with Steroid taper, duo nebs q4h and q2h prn, Mucinex, Tessalon Perles, sputum culture, cough syrup -Checked flu negative, pt had flu vaccine this season. 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 -Cont fluconazole for chronic immunosuppresant therapy with chronic steriods and inhalers. (2) Diastolic CHF: - Chronic, Euvolemic - Last Echo completed in May 2018 with preserved EF, grade 1 diastolic dysfuction - Continue lasix 20 mg PO daily prn (3) HTN (hypertension): -Blood pressure stable -continue antihypertensives as per [employer] meds. -Continue lasix PO 20 mg daily prn for edema, currently pts lower extremities have 1+ pitting but are normal per pt and his . Monitor volume status (4) HLD (hyperlipidemia): - Cont statin therapy (5) Diabetes: - ISS with accuchecks achs -Lantus 12u BID while on IV steroids - Last A1C = 9.2 in Jun 2018, no need to recheck at this time. - Hold metformin and glimepiride (6) Hx of prostatic malignancy: - Stable (7) Anemia: - Iron deficiency anemia, continue iron supplementation (8) GERD (gastroesophageal reflux disease): (9) Hypothyroidism: - Continue levothyroxine with alternating doses as per [employer] CHAIRPERSON meds. (10) Depression: (11) Anxiety: - Stable, continue lexapro (12) DVT prophylaxis: 78 yo M with PMHx of COPD, chronic bronchitis, on chronic steroids, DM II , HTN, HLD, GERD, hypothyroidism, history of prostate cancer, iron deficiency anemia, nocturnal hypoxia on 2 L HS Direct admission from from the pulmonary clinic where he was seen by Constantine Noriega PA-C. COPD exacerbation, Slowly improving, Has been on nebulizer treatment, antibiotic, cont duo nebs q4h and q2h prn, cont Mucinex, Tessalon Perles, sputum culture, cough syrup I will continue Solu-Medrol the same dose for 1 day more because still wheezing, I will change IV doxycycline to p.o. I feel needed totally 7 days to be good enough,last dose 09/27 DVT prophylaxis ordered Physical Exam 2 Vital Signs (Past 24 Hours): Last Vital Signs Temp 36.3 C L 09/23/18 07:48 Pulse 72 09/23/18 07:48 Resp 18 09/23/18 07:48 BP 132/68 09/23/18 07:48 Pulse Ox 98 09/23/18 07:48
--- NOTE | 2018-09-23 15:27 | Discharge Summary ---
Date of Service September 23, 2018 Admission HPI Per Admitting Provider This is a 78 yo M with PMHx of COPD, chronic bronchitis, on chronic steroids, DM II, HTN, HLD, GERD, hypothyroidism, history of prostate cancer, iron deficiency anemia, nocturnal hypoxia on 2 L HS Pt presents as a direct admission from the pulmonary clinic where he was seen by Constantine Noriega PA-C. Patient has been experiencing progressive shortness of breath over the last week. The patient is unable to walk more than ~20 feet without becoming SOB. He is not dyspneic at rest. He had his prednisone reduced from 10 mg to 5 mg daily about 1 week ago and since that timeframe his SOB has worsened. Patient admits to needing to do an extra nebulizer treatment in the middle the night for the past 4 days, where he routinely uses nebulizer only q4h while awake. Patient admits to mostly dry cough with mild white to clear sputum production. Patient denies fever, chills or sweats. He denies any known sick contacts. His is present with him at bedside who helps support the history. At the pulmonology clinic the patient was administered a nebulizer treatment, Solu-Medrol IM injection, and had an EKG done which was fairly unremarkable. Principal Diagnosis COPD exacerbation Acute kidney failure, treated and resolved Discharge Exam The patient appeared well nourished and normally developed. Vital signs as documented. He is slightly tachypneic Head exam is unremarkable. normocephalic, atraumatic Neck is without jugular venous distension, thyromegaly, or lymphademopathy Lungs are decreased breath sounds throughout with some end expiratory wheezes which are scant Cardiac exam reveals Rhythm is regular. First and second heart sounds normal. Abdominal exam reveals normal bowel sounds, no masses, no organomegaly Extremities are mildly edematous and both pedal pulses are present Neurologic exam is A&Ox3, no focal deficits, strength is equal bilateral Psychologically seems neither anxious or depressed Skin is warm Dry without bruises or lesions Discharge Data Allergies Allergy/AdvReac Type Severity Reaction Status Date / Time Quinolones Allergy Severe ANAPHYLAXIS Verified 08/19/18 09:50 formoterol Allergy Intermediate RASH Verified 08/19/18 09:50 metoprolol Allergy Intermediate RASH Verified 08/19/18 09:50 Sulfa (Sulfonamide Allergy Intermediate severe red Verified 08/19/18 09:50 Antibiotics) rash moxifloxacin Allergy Unknown throat Verified 08/19/18 09:50 swelling ofloxacin Allergy Unknown SWELLING Verified 08/19/18 09:50 AROUND FACE Consultations 09/20/18 17:15 Consult Pulmonology Routine Hospital Course (1) COPD (chronic obstructive pulmonary disease) with acute bronchitis: - Acute exacerbation: ( pt has had a recent decrease in prednisone from 10 mg to 5 mg). -We will treat with oral steroids starting at 50 mg a day look towards the outpatient pulmonary providers to begin his taper, leobardoo nebs qidr and q2h prn, Kelvin Benson, -Checked flu negative, pt had flu vaccine this season. -Started on Doxycycline will complete additional 4 days -Continue Tudorza inh, Brovana inh as per [employer] meds. -Cont fluconazole for chronic immunosuppresant therapy with chronic steriods and inhalers. (2) Diastolic CHF: - Chronic, Euvolemic - Last Echo completed in May 2018 with preserved EF, grade 1 diastolic dysfuction - Continue lasix 20 mg PO daily prn Acute kidney failure, treated and resolved (3) HTN (hypertension): -Blood pressure stable -continue antihypertensives as per [employer] meds. -Continue lasix PO 20 mg daily prn for edema, currently pts lower extremities have 1+ pitting but are normal per pt and his . Monitor volume status (4) HLD (hyperlipidemia): -We will hold statin therapy while on voriconazole (5) Diabetes: -Will resume his usual home metformin and glimepiride plus a carbohydrate conscious diet (6) Hx of prostatic malignancy: - Stable (7) Anemia: - Iron deficiency anemia, continue iron supplementation (8) GERD (gastroesophageal reflux disease): (9) Hypothyroidism: - Continue levothyroxine with alternating doses as per [employer] meds. (10) Depression: (11) Anxiety: - Stable, continue lexapro (12) DVT prophylaxis: 78 yo M with PMHx of COPD, chronic bronchitis, on chronic steroids, DM II , HTN, HLD, GERD, hypothyroidism, history of prostate cancer, iron deficiency anemia, nocturnal hypoxia on 2 L HS Direct admission from from the pulmonary clinic where he was seen by Constantine Noriega PA-C. Total Time Total Time Spent Total Time Spent (In Minutes): greater than 30 minutes were required to prepare discharge Discharge Plan Discharge Items Patient Disposition: Home - Home Health Services Reason For Visit: COPD EXACERBATION Discharge Diagnosis: copd exacerbation Discharge Goals: Decrease discomfort and Improve disease control Activity: Resume your previous activity Activity Comment: slowly increase activity Non-emergency contact: Primary Care Provider and Terminal Clerk Call non-emergency contact if: you have any medication questions Follow-up/Referrals: Brijesh Noriega PA-C [Physician Press Loader] - 10/03/18 3:15 pm (Please, follow up at [facility] Pulmonology Office with Constantine Noriega PA-C on October 03 at 3:15 pm. *This office is located in [address] of [facility] [employer] [facility] - big building next to this [facility]. If you need to change this appointment, call the office at [phone].) Howard Gunderson MD [Primary Care Provider] - 10/01/18 11:00 am (Please, follow up at Dr. Gunderson's office with his evaluation assistant, Haylie Feliz PA-C , on SundayOctober 01 at 11:00 am. *If you need to change this appointment, call their office at [phone].) Diet: Carb Consistent or DM2 Addtl Provider Instructions: please rest and increase activity slowly Prescriptions: New doxycycline hyclate 100 mg Capsule 100 mg PO BID@0800,1999 Qty: 7 RF: 0 ipratropium-albuterol 0.5 mg-3 mg(2.5 mg base)/3 mL Solution For Nebulization 3 ml NEB .qidr Qty: 90 RF: 0 benzonatate [Tessalon Perles] 100 mg Capsule 100 mg PO TID Qty: 12 RF: 0 prednisone 10 mg tablet 10 mg PO UD Qty: 100 RF: 4 Continue fluconazole 100 mg Tablet 100 mg PO QAM RF: 0 simvastatin 80 mg tablet 80 mg PO HS RF: 0 arformoterol [Brovana] 15 mcg/2 mL Solution For Nebulization 15 mcg INHALATION Q12H RF: 0 khyytbik-gzf-KA-lycopen-lutein [Centrum Silver] 0.4-300-250 mg-mcg-mcg Tablet 1 tab PO DAILY RF: 0 aclidinium bromide [Tudorza Pressair] 400 mcg/actuation Aerosol Powdr Breath Activated 1 puff Inhalation DAILY RF: 0 codeine-guaifenesin [Cheratussin AC] 10-100 mg/5 mL Liquid 5 ml PO Q4H PRN (Reason: Cough) RF: 0 albuterol sulfate [Ventolin HFA] 90 mcg/actuation Hfa Aerosol Inhaler 2 puff Inhalation QID PRN (Reason: Shortness Of Breath) RF: 0 glucosamine-chondroitin [Osteo Bi-Flex] 250-200 mg Tablet 1 tab PO BID RF: 0 furosemide 20 mg Tablet 20 mg PO DAILY PRN (Reason: Fluid Retention) RF: 0 glimepiride 2 mg Tablet 4 mg PO QAM RF: 0 ferrous sulfate [iron] 325 mg (65 mg iron) Tablet 2 tab PO BID RF: 0 ascorbic acid (vitamin C) 500 mg Tablet 500 mg PO TID RF: 0 cyanocobalamin (vitamin B-12) 1,000 mcg Tablet 1,000 mcg PO DAILY RF: 0 cholecalciferol (vitamin D3) 2,000 unit Tablet 2,000 unit PO DAILY RF: 0 magnesium oxide 400 mg magnesium Tablet 400 mg PO BID RF: 0 metformin 1,000 mg Tablet 1,000 mg PO BID RF: 0 escitalopram oxalate 10 mg tablet 10 mg PO QAM RF: 0 levothyroxine 75 mcg Tablet 75 mcg PO Q2D RF: 0 levothyroxine 75 mcg Tablet 37.5 mcg PO Q2D RF: 0 Discontinued prednisone 10 mg tablet 5 mg PO QAM RF: 0 Stand-Alone Forms: [facility] Discharge Orders: Discharge Order (Routine); Ordered 09/23/18 Ordered By: Epi Giles Admission Data Admit Date/Time: 09/20/18 16:48 Attending Provider: Epi Giles Admit Provider: Fina Luke Primary Care Provider: Howard Gunderson Other Providers: Arnav Roberson ; Fina Luke ; David Villatoro Service: Medical
[2018-09-24] MEDS ORDERED: INSULIN ASPART 100 UNITS/ML 3 ML PEN SC SCH
== END 2018-09-23 17:15 | disposition home or self-care (01) | DRG 191 ==
LOC: 4E 16:48 → SUATTDRO 16:48

== ENCOUNTER 2018-09-30 14:48 | Inpatient (IN) ==
[2018-09-30 15:31] LABS: Hematocrit (blood only) 43.4 % (42-52); Hemoglobin 14.3 g/dL (14.0-18.0); Mean Corpuscular Hgb Conc 32.9 g/dL (32-36); Mean Corpuscular Volume 97.1 fL (80-100); Mean Platelet Volume 11.3 fL (7.4-10.4); Platelet Count 311 K/uL (130-400); RDW Standard Deviation 46.3 fL (36.4-46.3); Red Blood Count 4.47 M/uL (4.7-6.1); White Blood Count 15.96 K/uL (4.8-10.8)
[2018-09-30 15:51] LABS: Albumin Globulin Ratio 0.9 (0.9-2); Albumin Level 3.1 gm/dl (3.4-5.0); BUN Creatinine Ratio 19.3 (10-20); Bilirubin,Total 0.4 mg/dl (0.2-1); Calcium 9.4 mg/dl (8.5-10.1); Creatinine Clr Calc Pharmacy 36.3 ml/min; Est GFR (African American) 40.8; Est GFR (Non-African American) 35.2; Globulin 3.5 gm/dl (2.5-4.0); Potassium 4.9 mmol/L (3.5-5.1); Total Protein 6.6 gm/dl (6.4-8.2)
[2018-09-30 15:53] LABS: Basophils % (auto) 0.6 %; Eosinophils # (auto) 0.01 K/uL (0-0.5); Eosinophils % (auto) 0.1 %; Immature Granulocytes # (auto) 0.94 K/uL (0.00-0.02); Immature Granulocytes % (auto) 5.9 %; Lymphocytes # (auto) 0.95 K/uL (1.2-3.4); Monocytes # (auto) 0.33 K/uL (0.11-0.59); Monocytes % (auto) 2.1 %; Neutrophils # (auto) 13.63 K/uL (1.4-6.5); Neutrophils % (auto) 85.3 %
--- NOTE | 2018-09-30 15:54 | XRay Report ---
XR chest 1V portable CLINICAL HISTORY: Chest Pain COMPARISON STUDY: Chest radiograph September 20, 2018. FINDINGS: There is no pneumothorax or pleural effusion. Mild cardiomegaly is unchanged. There is no e vidence for pulmonary edema or pneumonia. Slight blunting of the right costophrenic angle is likely c hronic. Linear right basilar opacity favors atelectasis or scarring. IMPRESSION: No acute cardiopulmonary findings. Electronically signed by: Cesar Faye M.D. 09/30/2018 3:53 PM
[2018-09-30 15:56] LABS: Troponin I 0.098 ng/ml (0-0.045)
[2018-09-30] MEDS ORDERED: NovoLIN-R INSULIN PER UNIT CHARGE IV STA (16:00)
[2018-09-30] MEDS ORDERED: SODIUM CHLORIDE 0.9% 1000ML 1,000 ML IV SCH ×2 (16:00→22:45)
[2018-09-30 16:04] LABS: Beta-Hydroxybutyrate 5.4 mg/dl (0.2-2.81)
[2018-09-30] MEDS ORDERED: dilTIAZem HCl 5 MG/ML 5 ML VIAL IV STA ×2 (16:35→17:22)
--- NOTE | 2018-09-30 16:36 | Emergency Department Note ---
Entered by Woody Forbes acting as a scribe for Mohit Charles DO History of Present Illness General Chief Complaint: Chest Pain Time Seen by Provider: 09/30/18 15:01 Source: patient Limitations: no limitations History of Present Illness Provider Complaint: chest pain Onset (ago): hour(s) (15) Time: 12:00 Duration: intermittent Maximum Pain Intensity: 5 Quality: + heaviness Associated symptoms: + nausea and + vomiting The patient is an 78 year old male who presents to the Emergency Room with complaints of intermittent chest pain over the past 15 hours. The patient states that he first felt a "heaviness" in his chest yesterday at 1200. This pain does intermittently radiate into the right arm as well. He denies any diaphoresis, but does note some associated shortness of breath. The symptoms are worsened with standing. The patient adds that he did feel nauseous and vomited yesterday prior to the chest pain onsetting. He adds that his sugar was 599 yesterday as he has been taking 50 mg of Prednisone daily secondary to chronic COPD. The patient was admitted to the hospital 1 week ago for a COPD exacerbation. Home Medications Home Medications Medication Instructions Recorded Confirmed Type aclidinium bromide [Tudorza 1 puff INHALATION DAILY 08/03/18 09/30/18 History Pressair] albuterol sulfate [Ventolin HFA] 2 puff INHALATION QID PRN 08/03/18 09/30/18 History arformoterol [Brovana] 15 mcg INHALATION Q12H 08/03/18 09/30/18 History ascorbic acid (vitamin C) 500 mg PO TID 08/03/18 09/30/18 History cholecalciferol (vitamin D3) 2,000 unit PO DAILY 08/03/18 09/30/18 History codeine-guaifenesin [Cheratussin 5 ml PO Q4H PRN 08/03/18 09/30/18 History AC] cyanocobalamin (vitamin B-12) 1,000 mcg PO DAILY 08/03/18 09/30/18 History escitalopram oxalate 10 mg PO QAM 08/03/18 09/30/18 History ferrous sulfate [iron] 2 tab PO BID 08/03/18 09/30/18 History furosemide 20 mg PO DAILY PRN 08/03/18 09/30/18 History glimepiride 4 mg PO QAM 08/03/18 09/30/18 History glucosamine-chondroitin [Osteo 1 tab PO BID 08/03/18 09/30/18 History Bi-Flex] levothyroxine 37.5 mcg PO Q2D 08/03/18 09/30/18 History levothyroxine 75 mcg PO Q2D 08/03/18 09/30/18 History magnesium oxide 400 mg PO BID 08/03/18 09/30/18 History metformin 1,000 mg PO BID 08/03/18 09/30/18 History ytdqohle-hoq-PN-lycopen-lutein 1 tab PO DAILY 08/03/18 09/30/18 History [Centrum Silver] simvastatin 80 mg PO HS 08/03/18 09/30/18 History benzonatate [Tessalon Perles] 100 mg PO TID #12 cap 09/23/18 09/30/18 Rx doxycycline hyclate 100 mg PO BID@0800,2000 #7 cap 09/23/18 09/30/18 Rx fluconazole 100 mg PO QAM #30 tab 09/23/18 09/30/18 Rx ipratropium-albuterol 3 ml NEB .qidr #90 ml 09/23/18 09/30/18 Rx prednisone 40 mg PO DAILY 09/30/18 09/30/18 History Allergies Allergy/AdvReac Type Severity Reaction Status Date / Time Quinolones Allergy Severe ANAPHYLAXIS Verified 08/19/18 09:50 formoterol Allergy Intermediate RASH Verified 08/19/18 09:50 metoprolol Allergy Intermediate RASH Verified 08/19/18 09:50 Sulfa (Sulfonamide Allergy Intermediate severe red Verified 08/19/18 09:50 Antibiotics) rash moxifloxacin Allergy Unknown throat Verified 08/19/18 09:50 swelling ofloxacin Allergy Unknown SWELLING Verified 08/19/18 09:50 AROUND FACE Past Med/Surg History Medical History Diastolic CHF Anxiety Depression Hypothyroidism GERD (gastroesophageal reflux disease) DVT prophylaxis Hx of prostatic malignancy HLD (hyperlipidemia) HTN (hypertension) COPD (chronic obstructive pulmonary disease) with acute bronchitis (Acute ) Diabetes (Chronic) Anemia Anemia (Acute) Atrial flutter (Acute) COPD (chronic obstructive pulmonary disease) (Acute) Heart disease (Acute) IRREGULAR RHYTHYM Hx of fall (Acute) Hyperlipidemia (Acute) Hypothyroidism (Acute) Kidney stones (Acute) Orbital fracture (Acute) HX OF LT eye from fall Pleural effusion (Acute) HX OF Prostate CA (Acute) Type 2 diabetes mellitus (Acute) Mild HOCM (hypertrophic obstructive cardiomyopathy) Surgical History H/O arthroscopy of shoulder (Acute) RT shoulder H/O cystoscopy (Acute) H/O tooth extraction (Acute) History of prostatectomy (Acute) Hx of colonoscopy Hx of esophagogastroduodenoscopy Social History Current Living Situation: Spouse Feels Safe at Home: Yes Smoking Status: Former smoker Second Hand Exposure: No Hx Alcohol Use: No Hx Substance Use: No Beliefs That Will Affect Care: None Preferred Language: Persian Review of Systems See HPI for pertinent positives & negatives. and A total of 10 systems reviewed and were otherwise negative Physical Exam Vital Signs Vital Signs - 24 hr 09/30/18 14:48 09/30/18 14:53 09/30/18 14:58 Temperature 36.7 C Temperature Source Oral Sepsis Recent Fever Within 48 Hours No Sepsis New/Unexplained Change in Mental Status No Sepsis Action Taken by Nursing No Action Required Pulse Rate 151 H 153 H Pulse Rate [Apical] Pulse Rhythm Respiratory Rate 22 20 Respiratory Effort / Characteristics Respiratory Depth Normal Respiratory Pattern Blood Pressure 141/70 H 141/70 H Blood Pressure [Left Arm] Blood Pressure Mean 93 93 Blood Pressure Mean [Left Arm] Blood Pressure Position [Left Arm] Pulse Oximetry 100 97 100 Oxygen Delivery Method Room Air Room Air 09/30/18 15:28 09/30/18 16:37 09/30/18 17:02 Temperature Temperature Source Sepsis Recent Fever Within 48 Hours Sepsis New/Unexplained Change in Mental Status Sepsis Action Taken by Nursing Pulse Rate 151 H 153 H 157 H Pulse Rate [Apical] Pulse Rhythm Regular Respiratory Rate 22 22 32 H Respiratory Effort / Characteristics Respiratory Depth Respiratory Pattern Blood Pressure 109/83 105/77 Blood Pressure [Left Arm] Blood Pressure Mean 91 86 Blood Pressure Mean [Left Arm] Blood Pressure Position [Left Arm] Pulse Oximetry 100 96 95 Oxygen Delivery Method Room Air 09/30/18 17:15 09/30/18 17:30 09/30/18 17:42 Temperature Temperature Source Sepsis Recent Fever Within 48 Hours Sepsis New/Unexplained Change in Mental Status Sepsis Action Taken by Nursing Pulse Rate 159 H 160 H 159 H Pulse Rate [Apical] Pulse Rhythm Respiratory Rate 15 17 17 Respiratory Effort / Characteristics Respiratory Depth Respiratory Pattern Blood Pressure 111/69 105/65 93/74 L Blood Pressure [Left Arm] Blood Pressure Mean 83 78 80 Blood Pressure Mean [Left Arm] Blood Pressure Position [Left Arm] Pulse Oximetry 95 95 96 Oxygen Delivery Method 09/30/18 17:45 09/30/18 17:50 09/30/18 17:56 Temperature Temperature Source Sepsis Recent Fever Within 48 Hours Sepsis New/Unexplained Change in Mental Status Sepsis Action Taken by Nursing Pulse Rate 160 H 160 H 135 H Pulse Rate [Apical] Pulse Rhythm Respiratory Rate 20 12 10 L Respiratory Effort / Characteristics Respiratory Depth Respiratory Pattern Blood Pressure 95/60 L 99/62 L 88/60 L Blood Pressure [Left Arm] Blood Pressure Mean 71 74 69 Blood Pressure Mean [Left Arm] Blood Pressure Position [Left Arm] Pulse Oximetry 95 95 95 Oxygen Delivery Method 09/30/18 18:00 09/30/18 18:05 09/30/18 18:10 Temperature Temperature Source Sepsis Recent Fever Within 48 Hours Sepsis New/Unexplained Change in Mental Status Sepsis Action Taken by Nursing Pulse Rate 160 H 159 H 159 H Pulse Rate [Apical] Pulse Rhythm Respiratory Rate 32 H 20 14 Respiratory Effort / Characteristics Respiratory Depth Respiratory Pattern Blood Pressure 88/62 L 106/63 82/63 L Blood Pressure [Left Arm] Blood Pressure Mean 70 77 69 Blood Pressure Mean [Left Arm] Blood Pressure Position [Left Arm] Pulse Oximetry 95 95 96 Oxygen Delivery Method 09/30/18 18:15 09/30/18 18:20 09/30/18 18:25 Temperature Temperature Source Sepsis Recent Fever Within 48 Hours Sepsis New/Unexplained Change in Mental Status Sepsis Action Taken by Nursing Pulse Rate 159 H 158 H 158 H Pulse Rate [Apical] Pulse Rhythm Respiratory Rate 13 15 15 Respiratory Effort / Characteristics Respiratory Depth Respiratory Pattern Blood Pressure 108/63 87/65 L 105/64 Blood Pressure [Left Arm] Blood Pressure Mean 78 72 77 Blood Pressure Mean [Left Arm] Blood Pressure Position [Left Arm] Pulse Oximetry 95 95 95 Oxygen Delivery Method 09/30/18 18:30 09/30/18 18:35 09/30/18 18:40 Temperature Temperature Source Sepsis Recent Fever Within 48 Hours Sepsis New/Unexplained Change in Mental Status Sepsis Action Taken by Nursing Pulse Rate 158 H 157 H 157 H Pulse Rate [Apical] Pulse Rhythm Respiratory Rate 20 20 14 Respiratory Effort / Characteristics Respiratory Depth Respiratory Pattern Blood Pressure 97/66 L 91/61 L 98/58 L Blood Pressure [Left Arm] Blood Pressure Mean 76 71 71 Blood Pressure Mean [Left Arm] Blood Pressure Position [Left Arm] Pulse Oximetry 96 95 96 Oxygen Delivery Method 09/30/18 18:50 09/30/18 18:55 09/30/18 19:00 Temperature Temperature Source Sepsis Recent Fever Within 48 Hours Sepsis New/Unexplained Change in Mental Status Sepsis Action Taken by Nursing Pulse Rate Pulse Rate [Apical] 157 H 157 H 156 H Pulse Rhythm Respiratory Rate 18 18 18 Respiratory Effort / Characteristics Non-Labored Spontaneous Non-Labored Spontaneous Non-Labored Spontaneous Respiratory Depth Normal Normal Normal Respiratory Pattern Regular Regular Regular Blood Pressure Blood Pressure [Left Arm] 107/53 L 90/64 L 103/70 Blood Pressure Mean Blood Pressure Mean [Left Arm] 71 72 81 Blood Pressure Position [Left Arm] Lying Lying Lying Pulse Oximetry 94 94 94 Oxygen Delivery Method Room Air Room Air Room Air 09/30/18 19:05 09/30/18 19:10 09/30/18 19:15 Temperature Temperature Source Sepsis Recent Fever Within 48 Hours Sepsis New/Unexplained Change in Mental Status Sepsis Action Taken by Nursing Pulse Rate Pulse Rate [Apical] 155 H 157 H 156 H Pulse Rhythm Respiratory Rate 18 18 18 Respiratory Effort / Characteristics Non-Labored Spontaneous Non-Labored Spontaneous Non-Labored Spontaneous Respiratory Depth Normal Normal Normal Respiratory Pattern Regular Regular Regular Blood Pressure Blood Pressure [Left Arm] 109/66 102/56 L 101/72 Blood Pressure Mean Blood Pressure Mean [Left Arm] 80 71 81 Blood Pressure Position [Left Arm] Lying Lying Lying Pulse Oximetry 94 94 95 Oxygen Delivery Method Room Air Room Air Room Air 09/30/18 19:20 09/30/18 19:25 09/30/18 19:52 Temperature Temperature Source Sepsis Recent Fever Within 48 Hours Sepsis New/Unexplained Change in Mental Status Sepsis Action Taken by Nursing Pulse Rate Pulse Rate [Apical] 155 H 157 H 154 H Pulse Rhythm Respiratory Rate 18 18 21 Respiratory Effort / Characteristics Non-Labored Spontaneous Non-Labored Spontaneous Respiratory Depth Normal Normal Respiratory Pattern Regular Regular Blood Pressure Blood Pressure [Left Arm] 105/65 95/63 L 112/74 Blood Pressure Mean Blood Pressure Mean [Left Arm] 78 73 86 Blood Pressure Position [Left Arm] Lying Lying Pulse Oximetry 95 94 96 Oxygen Delivery Method Room Air Room Air 09/30/18 20:01 09/30/18 20:10 09/30/18 20:20 Temperature Temperature Source Sepsis Recent Fever Within 48 Hours Sepsis New/Unexplained Change in Mental Status Sepsis Action Taken by Nursing Pulse Rate Pulse Rate [Apical] 156 H 157 H 157 H Pulse Rhythm Respiratory Rate 18 18 18 Respiratory Effort / Characteristics Non-Labored Spontaneous Non-Labored Spontaneous Non-Labored Spontaneous Respiratory Depth Normal Normal Normal Respiratory Pattern Regular Regular Regular Blood Pressure Blood Pressure [Left Arm] 99/63 L 89/70 L 103/68 Blood Pressure Mean Blood Pressure Mean [Left Arm] 75 76 79 Blood Pressure Position [Left Arm] Pulse Oximetry 95 94 92 Oxygen Delivery Method Room Air Room Air Room Air 09/30/18 20:30 Temperature Temperature Source Sepsis Recent Fever Within 48 Hours Sepsis New/Unexplained Change in Mental Status Sepsis Action Taken by Nursing Pulse Rate Pulse Rate [Apical] 157 H Pulse Rhythm Respiratory Rate 18 Respiratory Effort / Characteristics Respiratory Depth Normal Respiratory Pattern Blood Pressure Blood Pressure [Left Arm] 111/70 Blood Pressure Mean Blood Pressure Mean [Left Arm] 83 Blood Pressure Position [Left Arm] Pulse Oximetry 95 Oxygen Delivery Method Room Air GENERAL: Patient is awake alert in no acute distress patient is resting comfortably and showing no signs of anxiety EYES: The conjunctivae are clear. The pupils are round and reactive. EARS, NOSE, MOUTH AND THROAT: The nose is without any evidence of any deformity. Mucous membranes are moist tongue is midline NECK: The neck is nontender and supple. RESPIRATORY: Normal respirations were noted. There were diminished breath sounds noted throughout. No tachypnea or conversational dyspnea was noted. CARDIOVASCULAR: Regular rhythm with tachycardic rate was appreciated. There is no definite murmur. GASTROINTESTINAL: The abdomen is soft. Bowel sounds are present in all quadrants. Abdomen is nontender MUSCULOSKELETAL/EXTREMITIES: There is no evidence of gross deformity full range of motion is noted in the hips and shoulders SKIN: There is no obvious evidence of any rash. Trace pedal edema was noted bilaterally. NEUROLOGIC: Patient is awake alert and oriented x3. Course Past medical records reviewed. The patient was evaluated in room C10, and a complete history and physical examination were performed. 1814: The resident physician reviewed the patient's case with Dr. Beckman - [facility]. She will evaluate the patient for further management. 1857: Dr. Beckman informed me that she would like me to order a CT of the chest. Administered Medications Diltiazem HCl 125 mg/ Dextrose 125 mls @ 2.5 mls/hr IV .Q24H MQIUEL; Protocol Stop: 10/30/18 18:14 Last Titration: 09/30/18 20:33 Dose: 10 mg/hr, 10 mls/hr Titration: 09/30/18 20:00 Dose: 5 mg/hr, 5 mls/hr Admin: 09/30/18 18:39 Dose: 2.5 mg/hr, 2.5 mls/hr Ioversol (Optiray 320 100ml) 90 ml IV ONCE PRN PRN Reason: Interaction Checking Stop: 10/04/18 19:49 Last Admin: 09/30/18 19:50 Dose: 90 ml Discontinued Medications Diltiazem HCl (Cardizem) 10 mg IV NOW STA Stop: 09/30/18 16:36 Last Admin: 09/30/18 16:41 Dose: 10 mg Diltiazem HCl (Cardizem) 10 mg IV NOW STA Stop: 09/30/18 17:23 Last Admin: 09/30/18 17:40 Dose: 10 mg Sodium Chloride (Nss 1000ml) 1,000 mls @ 999 mls/hr IV .Q1H1M MIQUEL Stop: 09/30/18 17:00 Last Infusion: 09/30/18 17:51 Dose: 0 mls/hr Admin: 09/30/18 16:38 Dose: 999 mls/hr Sodium Chloride (Nss 1000ml) 500 mls @ 999 mls/hr IV .Q31M ONE Stop: 09/30/18 18:14 Last Infusion: 09/30/18 18:18 Dose: 0 mls/hr Admin: 09/30/18 17:50 Dose: 999 mls/hr Sodium Chloride (Nss 1000ml) 500 mls @ 999 mls/hr IV .Q31M ONE Stop: 09/30/18 18:46 Last Infusion: 09/30/18 19:18 Dose: 0 mls/hr Admin: 09/30/18 18:39 Dose: 999 mls/hr Insulin Human Regular (Novolin R U-100 Per Unit) 4 units IV NOW STA Stop: 09/30/18 16:01 Last Admin: 09/30/18 16:39 Dose: 4 units Medical Decision Making Differential Diagnosis + fracture of rib, + pneumothorax, + stable angina, + unstable angina pectoris, + atypical chest pain, + st elevation myocardial infarction, + costochondritis, + chest pain, + biliary colic, + cardiac ischemia, + myocarditis, + pericarditis , + costochondritis, + pleurisy, + aortic dissection, + pulmonary embolism, + pneumonia, + musculoskeletal, + infections, + cholecystitis, + pancreatitis and + esophageal rupture Medical Records Attestation: I reviewed the patient's medical records. Home Medications Current Medication List: was personally reviewed by me Laboratory Data Attestation: I reviewed the patient's lab results. Result diagrams: 09/30/18 15:05 09/30/18 15:05 Lab Results 09/30/18 09/30/18 09/30/18 Range/Units 15:05 15:05 15:15 WBC 15.96 H (4.8-10.8) K/uL RBC 4.47 L (4.7-6.1) M/uL Hgb 14.3 (14.0-18.0) g/dL Hct 43.4 (42-52) % MCV 97.1 (80-100) fL MCH 32.0 (25-34) pg MCHC 32.9 (32-36) g/dL RDW Std Deviation 46.3 (36.4-46.3) fL RDW Coeff of Ruddy 13.0 (11.5-14.5) % Plt Count 311 (130-400) K/uL MPV 11.3 H (7.4-10.4) fL Immature Gran % (Auto) 5.9 % Neut % (Auto) 85.3 % Lymph % (Auto) 6.0 % Webster % (Auto) 2.1 % Eos % (Auto) 0.1 % Baso % (Auto) 0.6 % Immature Gran # (Auto) 0.94 H (0.00-0.02) K/uL Neut # (Auto) 13.63 H (1.4-6.5) K/uL Lymph # (Auto) 0.95 L (1.2-3.4) K/uL Webster # (Auto) 0.33 (0.11-0.59) K/uL Eos # (Auto) 0.01 (0-0.5) K/uL Baso # (Auto) 0.10 (0-0.2) K/uL VBG pH (7.36-7.41) VBG pCO2 (38-50) mmHg VBG pO2 mmHg VBG HCO3 mmol/L VBG O2 Saturation % VBG Base Excess mEq/L Barometric Pressure mm/Hg Sodium 133 L (136-145) mmol/L Potassium 4.9 (3.5-5.1) mmol/L Chloride 96 L (98-107) mmol/L Carbon Dioxide 22 (21-32) mmol/L Anion Gap 14.0 H (3-11) BUN 34 H (7-18) mg/dl Creatinine 1.78 H (0.6-1.4) mg/dl Est Cr Clr Drug Dosing 36.3 ml/min Est GFR ( Amer) 40.8 Est GFR (Non-Af Amer) 35.2 BUN/Creatinine Ratio 19.3 (10-20) Glucose 474 H* (70-99) mg/dl POC Glucose (70-99) Calcium 9.4 (8.5-10.1) mg/dl Total Bilirubin 0.4 (0.2-1) mg/dl AST 10 L (15-37) U/L ALT 32 (12-78) U/L Alkaline Phosphatase 71 (45-117) U/L POC Troponin I 0.10 H (0-0.045) ng/ml Troponin I 0.098 H* (0-0.045) ng/ml Total Protein 6.6 (6.4-8.2) gm/dl Albumin 3.1 L (3.4-5.0) gm/dl Globulin 3.5 (2.5-4.0) gm/dl Albumin/Globulin Ratio 0.9 (0.9-2) Lipase 257 (73-393) U/L Beta-Hydroxybutyric Acd 5.40 H (0.2-2.81) mg/dl Urine Color Urine Appearance (Clear) Urine pH (4.5-7.5) Ur Specific Atwood (1.000-1.030) Urine Protein (Negative) Urine Glucose (UA) (Negative) Urine Ketones (Negative) Urine Blood (Negative) Urine Nitrite (Negative) Urine Bilirubin (Negative) Urine Urobilinogen (Negative) Ur Leukocyte Esterase (Negative) 09/30/18 09/30/18 09/30/18 Range/Units 16:23 18:36 18:37 WBC (4.8-10.8) K/uL RBC (4.7-6.1) M/uL Hgb (14.0-18.0) g/dL Hct (42-52) % MCV (80-100) fL MCH (25-34) pg MCHC (32-36) g/dL RDW Std Deviation (36.4-46.3) fL RDW Coeff of Ruddy (11.5-14.5) % Plt Count (130-400) K/uL MPV (7.4-10.4) fL Immature Gran % (Auto) % Neut % (Auto) % Lymph % (Auto) % Webster % (Auto) % Eos % (Auto) % Baso % (Auto) % Immature Gran # (Auto) (0.00-0.02) K/uL Neut # (Auto) (1.4-6.5) K/uL Lymph # (Auto) (1.2-3.4) K/uL Webster # (Auto) (0.11-0.59) K/uL Eos # (Auto) (0-0.5) K/uL Baso # (Auto) (0-0.2) K/uL VBG pH 7.45 H (7.36-7.41) VBG pCO2 29 L (38-50) mmHg VBG pO2 45 mmHg VBG HCO3 19 mmol/L VBG O2 Saturation 81.6 % VBG Base Excess -3.3 mEq/L Barometric Pressure 736.9 mm/Hg Sodium (136-145) mmol/L Potassium (3.5-5.1) mmol/L Chloride (98-107) mmol/L Carbon Dioxide (21-32) mmol/L Anion Gap (3-11) BUN (7-18) mg/dl Creatinine (0.6-1.4) mg/dl Est Cr Clr Drug Dosing ml/min Est GFR ( Amer) Est GFR (Non-Af Amer) BUN/Creatinine Ratio (10-20) Glucose (70-99) mg/dl POC Glucose 354 H* 353 H* (70-99) Calcium (8.5-10.1) mg/dl Total Bilirubin (0.2-1) mg/dl AST (15-37) U/L ALT (12-78) U/L Alkaline Phosphatase (45-117) U/L POC Troponin I (0-0.045) ng/ml Troponin I (0-0.045) ng/ml Total Protein (6.4-8.2) gm/dl Albumin (3.4-5.0) gm/dl Globulin (2.5-4.0) gm/dl Albumin/Globulin Ratio (0.9-2) Lipase (73-393) U/L Beta-Hydroxybutyric Acd (0.2-2.81) mg/dl Urine Color Urine Appearance (Clear) Urine pH (4.5-7.5) Ur Specific Atwood (1.000-1.030) Urine Protein (Negative) Urine Glucose (UA) (Negative) Urine Ketones (Negative) Urine Blood (Negative) Urine Nitrite (Negative) Urine Bilirubin (Negative) Urine Urobilinogen (Negative) Ur Leukocyte Esterase (Negative) 09/30/18 Range/Units 19:32 WBC (4.8-10.8) K/uL RBC (4.7-6.1) M/uL Hgb (14.0-18.0) g/dL Hct (42-52) % MCV (80-100) fL MCH (25-34) pg MCHC (32-36) g/dL RDW Std Deviation (36.4-46.3) fL RDW Coeff of Ruddy (11.5-14.5) % Plt Count (130-400) K/uL MPV (7.4-10.4) fL Immature Gran % (Auto) % Neut % (Auto) % Lymph % (Auto) % Webster % (Auto) % Eos % (Auto) % Baso % (Auto) % Immature Gran # (Auto) (0.00-0.02) K/uL Neut # (Auto) (1.4-6.5) K/uL Lymph # (Auto) (1.2-3.4) K/uL Webster # (Auto) (0.11-0.59) K/uL Eos # (Auto) (0-0.5) K/uL Baso # (Auto) (0-0.2) K/uL VBG pH (7.36-7.41) VBG pCO2 (38-50) mmHg VBG pO2 mmHg VBG HCO3 mmol/L VBG O2 Saturation % VBG Base Excess mEq/L Barometric Pressure mm/Hg Sodium (136-145) mmol/L Potassium (3.5-5.1) mmol/L Chloride (98-107) mmol/L Carbon Dioxide (21-32) mmol/L Anion Gap (3-11) BUN (7-18) mg/dl Creatinine (0.6-1.4) mg/dl Est Cr Clr Drug Dosing ml/min Est GFR ( Amer) Est GFR (Non-Af Amer) BUN/Creatinine Ratio (10-20) Glucose (70-99) mg/dl POC Glucose (70-99) Calcium (8.5-10.1) mg/dl Total Bilirubin (0.2-1) mg/dl AST (15-37) U/L ALT (12-78) U/L Alkaline Phosphatase (45-117) U/L POC Troponin I (0-0.045) ng/ml Troponin I (0-0.045) ng/ml Total Protein (6.4-8.2) gm/dl Albumin (3.4-5.0) gm/dl Globulin (2.5-4.0) gm/dl Albumin/Globulin Ratio (0.9-2) Lipase (73-393) U/L Beta-Hydroxybutyric Acd (0.2-2.81) mg/dl Urine Color Yellow Urine Appearance Clear (Clear) Urine pH 5.0 (4.5-7.5) Ur Specific Atwood 1.034 H (1.000-1.030) Urine Protein Negative (Negative) Urine Glucose (UA) 3+ H (Negative) Urine Ketones Trace H (Negative) Urine Blood Negative (Negative) Urine Nitrite Negative (Negative) Urine Bilirubin Negative (Negative) Urine Urobilinogen Negative (Negative) Ur Leukocyte Esterase Negative (Negative) Imaging Data Chest x-ray: Attestation: I personally reviewed and interpreted this imaging study as follows: Radiologist's impression: XR chest 1V portable CLINICAL HISTORY: Chest Pain COMPARISON STUDY: Chest radiograph September 20, 2018. FINDINGS: There is no pneumothorax or pleural effusion. Mild cardiomegaly is unchanged. There is no evidence for pulmonary edema or pneumonia. Slight blunting of the right costophrenic angle is likely chronic. Linear right basilar opacity favors atelectasis or scarring. IMPRESSION: No acute cardiopulmonary findings. Electronically signed by: Cesar Faye M.D. 09/30/2018 3:53 PM ECG Data Attestation: I personally reviewed and interpreted this ECG as follows: Indication: chest pain Rate (beats per minute): 153 Rhythm: sinus tachycardia Findings: + RBBB; no ectopy Comparison ECG Date: from (09/21/2018) Change: no significant change Blood Pressure Blood Pressure Findings: Low blood pressure Blood Pressure Disposition: further management by hospitalist MDM Narrative The patient is an 78-year-old male who presented to the emergency department for an evaluation of chest pain. The patient was found to have significant tachycardia. He has a history of atrial fibrillation. This was felt to be consistent with rapid A. fib and he was treated with IV fluids and IV Cardizem. I discussed the patient's laboratory and radiographic studies with him. He started to have episodes of hypotension so a Cardizem drip was placed. The patient's symptoms slowly improved. I discussed his case with the on-call [facility] hospitalist. They have agreed to evaluate the patient in the emergency department for further management and disposition. CT the chest was also obtained. There is no signs of pulmonary embolus. The patient was also found to have signs of hyperglycemia. He was treated with IV fluids for this. He also received IV insulin. Impression & Plan Chest pain, Atrial fibrillation, Hyperglycemia, Elevated troponin Critical Care Time I have personally spent greater than 60 minutes of critical care time in the direct management of this patient. This includes bedside care, interpretation of diagnostic studies, and testing, discussion with consultants, patient, and family members, and other required patient management activities. This 60 minutes is in excess of all separately billable procedures. Critical Care Time: Yes Total Critical Care Time: 60 Discharge Plan Visit Data Chief Complaint: Chest Pain ED Provider: Mohit Charles ED Midlevel Provider: Igor Richardson Discharge Problem: Chest pain, Atrial fibrillation, Hyperglycemia, Elevated troponin Patient Disposition: Being Evaluated by Hospitalist Forms Stand Alone Forms: Call Back Authorization, My [facility] [place] [employer] Prescriptions Prescriptions: No Action simvastatin 80 mg tablet 80 mg PO HS RF: 0 arformoterol [Brovana] 15 mcg/2 mL Solution For Nebulization 15 mcg INHALATION Q12H RF: 0 phvjalzu-cdq-UH-lycopen-lutein [Centrum Silver] 0.4-300-250 mg-mcg-mcg Tablet 1 tab PO DAILY RF: 0 aclidinium bromide [Tudorza Pressair] 400 mcg/actuation Aerosol Powdr Breath Activated 1 puff Inhalation DAILY RF: 0 codeine-guaifenesin [Cheratussin AC] 10-100 mg/5 mL Liquid 5 ml PO Q4H PRN (Reason: Cough) RF: 0 albuterol sulfate [Ventolin HFA] 90 mcg/actuation Hfa Aerosol Inhaler 2 puff Inhalation QID PRN (Reason: Shortness Of Breath) RF: 0 glucosamine-chondroitin [Osteo Bi-Flex] 250-200 mg Tablet 1 tab PO BID RF: 0 furosemide 20 mg Tablet 20 mg PO DAILY PRN (Reason: Fluid Retention) RF: 0 glimepiride 2 mg Tablet 4 mg PO QAM RF: 0 ferrous sulfate [iron] 325 mg (65 mg iron) Tablet 2 tab PO BID RF: 0 ascorbic acid (vitamin C) 500 mg Tablet 500 mg PO TID RF: 0 cyanocobalamin (vitamin B-12) 1,000 mcg Tablet 1,000 mcg PO DAILY RF: 0 cholecalciferol (vitamin D3) 2,000 unit Tablet 2,000 unit PO DAILY RF: 0 magnesium oxide 400 mg magnesium Tablet 400 mg PO BID RF: 0 metformin 1,000 mg Tablet 1,000 mg PO BID RF: 0 escitalopram oxalate 10 mg tablet 10 mg PO QAM RF: 0 levothyroxine 75 mcg Tablet 75 mcg PO Q2D RF: 0 levothyroxine 75 mcg Tablet 37.5 mcg PO Q2D RF: 0 doxycycline hyclate 100 mg Capsule 100 mg PO BID@0800,2000 Qty: 7 RF: 0 ipratropium-albuterol 0.5 mg-3 mg(2.5 mg base)/3 mL Solution For Nebulization 3 ml NEB .qidr Qty: 90 RF: 0 benzonatate [Tessalon Perles] 100 mg Capsule 100 mg PO TID Qty: 12 RF: 0 fluconazole 100 mg Tablet 100 mg PO QAM Qty: 30 RF: 0 prednisone 10 mg tablet 40 mg PO DAILY RF: 0 Referrals Referrals: Howard Gunderson MD [Primary Care Provider] - The scribe's documentation has been prepared under my direction and personally reviewed by me in its entirety. I confirm that the note above accurately reflects all work, treatment, procedures, and medical decision making performed by me.
[2018-09-30 16:55] LABS: Base Excess VBG -3.3 mEq/L; Oxygen Saturation VBG 81.6 %; pH VBG 7.45 (7.36-7.41)
[2018-09-30] MEDS ORDERED: SODIUM CHLORIDE 0.9% 1000ML 500 ML IV ONE ×2 (17:44→18:16)
[2018-09-30] MEDS ORDERED: dilTIAZem HCl 125 MG in DEXTROSE 5% 100 ML IV SCH (18:15)
[2018-09-30] MEDS ORDERED: IOVERSOL 100ml IV PRN (19:50)
[2018-09-30 19:59] LABS: Appearance Urine Clear (Clear); Bilirubin Urine Negative (Negative); Blood Urine Negative (Negative); Color Urine Yellow; Glucose Urine UA 3+ (Negative); Ketones Urine Trace (Negative); Leukocyte Esterase Urine Negative (Negative); Nitrite Urine Negative (Negative); Protein Urine Negative (Negative); Specific Gravity Urine 1.034 (1.000-1.030); Urobilinogen Urine Negative (Negative)
--- NOTE | 2018-09-30 20:01 | CT Scan Report ---
CT ANGIOGRAM OF THE CHEST CLINICAL HISTORY: Atypical chest pain. COMPARISON STUDY: Chest x-ray dated 09/30/2018. Chest CT scans dated 04/04/2017 and 10/10/2013. TECHNIQUE: Following the IV administration of 90 cc of Optiray 320, CT angiogram of the chest was per formed from the upper abdomen to the thoracic inlet utilizing the pulmonary embolus protocol. Images are reviewed in the axial, sagittal, and coronal planes. 3-D MIPS images are created and assessed. IV contrast was administered without complication. A dose lowering technique was utilized adhering to the principles of ALARA. The examination is degraded by motion artifact. CT DOSE: 401.23 mGy.cm FINDINGS: Thyroid: Imaged portions of the thyroid gland are normal in size and attenuation. Thoracic aorta: There is mild atherosclerotic calcification of the thoracic aorta, which is normal in caliber and demonstrates standard 3-vessel arch anatomy. No dissection is seen. Pulmonary vasculature: The pulmonary trunk is normal in caliber. There are no filling defects identif ied in main, lobar, or proximal segmental pulmonary branches to suggest pulmonary embolus. Evaluation of the peripheral branches is degraded by motion artifact. Heart: The heart is enlarged and without pericardial effusion. The coronary arteries are densely calc ified. There is also calcification of the mitral annulus. Lungs and pleural spaces: Evaluation of the lung parenchyma is degraded by motion artifact. The trach ea and central airways are clear. There is trace right pleural effusion with associated atelectasis. Minimal fluid is noted along the right major fissure. Foci of scarring/atelectasis in the lower lobes are similar to previous. Mild diffuse peribronchial thickening is noted, greatest in the upper lobes . Mediastinum: There is no mediastinal lymphadenopathy. Magda: Clear. Axillae: There is no axillary lymphadenopathy. Upper abdomen: Partially visualized upper abdominal viscera is within normal limits. Skeletal structures: The skeletal structures are osteopenic. Mild degenerative changes noted in the s houlders and thoracic spine. Chronic posttraumatic deformity is suggested in the body of the sternum. No lytic or blastic bony lesions are seen. IMPRESSION: 1. There is no evidence of pulmonary embolus in the main, lobar, or proximal segmental pulmonary juanita bridger. 2. Cardiomegaly. 3. A trace right pleural effusion is similar to previous, as are foci of bibasilar scarring/atelectas is. 4. No airspace consolidation is seen typical for pneumonia. 5. Mild diffuse peribronchial thickening suggests reactive air disease. Clinical correlation will be required. 6. Additional findings as above. Electronically signed by: Fausto Donovan M.D. 09/30/2018 8:00 PM
[2018-09-30] MEDS ORDERED: GLUCAGON FOR INJ 1 MG VIAL SQ PRN (22:24)
[2018-09-30] MEDS ORDERED: GUAIFENESIN/CODEINE 100MG/10MG 5ML UDC PO PRN (22:24)
[2018-09-30] MEDS ORDERED: ALBUTEROL HFA 8 GM INHALER INH PRN (22:24)
[2018-09-30] MEDS ORDERED: DEXTROSE 50% 50 ML SYRINGE IV PRN (22:24)
[2018-09-30] MEDS ORDERED: GLUCOSE 10 TABS/TUBE PO PRN (22:24)
[2018-09-30] MEDS ORDERED: GLUCOSE 40% GEL 15 GM TUBE PO PRN (22:24)
[2018-09-30] MEDS ORDERED: CARBOHYDRATES FOR HYPOGLYCEMIA PO PRN (22:24)
[2018-09-30] MEDS ORDERED: AMIODARONE IV BOLUS / DRIP IV STA (22:24)
[2018-09-30] MEDS ORDERED: AMIODARONE / D5W 150 MG/100 ML BAG IV STA (22:33)
[2018-09-30] MEDS ORDERED: AMIODARONE / D5W 360 MG/200 ML BAG IV SCH (22:45)
[2018-09-30] MEDS: ARFORMOTEROL TART 15MCG/2ML VIAL INH SCH (23:08)
[2018-09-30] MEDS: ALBUT/IPRATROP 3MG/0.5MG NEB 3 ML VIAL NEB SCH (23:08)
[2018-09-30 23:42] LABS: Magnesium 1.9 mg/dl (1.8-2.4); Phosphorus 3.4 mg/dl (2.5-4.9); Troponin I 0.676 ng/ml (0-0.045)
[2018-09-30] MEDS: INSULIN GLARGINE SOLOSTAR 100 UNITS/ML 3 ML PEN SC SCH (23:48)
[2018-09-30] MEDS: INSULIN ASPART 100 UNITS/ML 3 ML PEN SC SCH (23:50)
[2018-09-30 23:55] LABS: T4 Free Thyroxine 1.17 ng/dl (0.8-1.6)
[2018-09-30] MEDS: ASCORBIC ACID 500 MG TAB PO SCH (23:56)
[2018-09-30] MEDS: BENZONATATE 100 MG CAPSULE PO SCH (23:56)
[2018-10-01] MEDS ORDERED: HEPARIN IV BOLUS 6,000 UNITS in SYRINGE 0 ML IV ONE
[2018-10-01 00:38] LABS: INR 1.1 (0.9-1.1); Partial Thromboplastin Time 25.4 Seconds (21.0-31.0); Prothrombin Time 10.9 Seconds (9.0-12.0)
[2018-10-01] MEDS: HEPARIN STANDARD DEXTROSE 25,000 UNITS/500 ML IV SCH ×2 (00:57→22:44)
--- NOTE | 2018-10-01 02:17 | History & Physical Report ---
Date of Service September 30, 2018 Assessment & Plan (1) Atrial fibrillation: Patient with history of arrhythmia, presently not on any rate controlling medication or anticoagulation. ZU=953 and BP 90's on Diltiazem gtt of 10. Elevated troponin at 0.098 -Admit to PCU -Check electrolytes -Check TSH -DC Diltiazem gtt -Amiodarone gtt for rate control, goal Hr <110 -Heparin gtt -Cardiology consultation - appreciate assistance with this case (2) Elevated troponin: Patient with episode of CP prior to admission that lasted >24 hours. Presently CP free. Troponin elevated at 0.098. ?if patient had a true ischemic event vs rate related demand ischemia. Patient reports occasional chest tightness with exertion. He was seen by Cardiology 11/[address] changes that were thought to be secondary to early repolarization. Lipid panel fairly normal 07/13/18. AIC=9.4 on 09/22/18 -Trend troponin -Cardiolgy consult as above -Heparin gtt for AF (3) Diabetes: Patient with DM II on insulin therapy. Reports poor control lately as he has been on higher doses of steroids for COPD exacerbation. Last AIC=9.4 on 09/22 -Lantus 15u BID -ISS, CF=30, CR=10 -Adjust as needed for target blood sugar 80 - 140 -CC diet as tolerated (4) COPD (chronic obstructive pulmonary disease) with acute bronchitis: Stable. No wheezing noted on exam -Continue Duoneb PRN -Continue Albuterol PRN -Continue Arformoterol -Tessalon Perles -Continue Prednisone 40mg po daily (5) Hypothyroidism: TSH=0.184, T4=1.17 -Continue Synthroid (6) Anxiety: Continue Escitalopram History of Present Illness Chief Complaint: chest pain Primary Care Provider: Artis Gunedrson MD Mr. Gibson is as pleasant 78yo male with history of AF, HTN, HLP, DM, COPD, GERD, diastolic CHF presenting with left sided chest discomfort. Pain started AM around 06:00 - left sided with radiation down the left arm. Described as pressure, 6/10 in severity. Pain lasted all day yesterday and into the morning today. Also with nausea and vomiting. Denies diaphoresis. Denies syncope. Patient states that pain resolved when he arrived to the ER. Also reports that blood sugars at home have been 350-400 since his discharge from the hospital. He was treated inpatient with Prednisone 50mg po daily for a COPD exacerbation and discharged home on Prednisone 40mg po daily. No additional complaints. On arrival to the ER he was found to be tachycardic at 157 BPM with relative hypotension 90/54. EKG suggestive of atrial flutter. He was administered Diltiazem 10mg IV x 2 doses and started on a Diltiazem gtt with minimal improvement in HR. When I saw him his HR was 158, SPB 89. Patient asymptomatic with no complaints. No CP at present. ER Courese: Diltiazem 10mg IV x 2, then gtt, Insulin 4u, NSS x 1500mL Allergies Allergy/AdvReac Type Severity Reaction Status Date / Time Quinolones Allergy Severe ANAPHYLAXIS Verified 09/30/18 22:45 formoterol Allergy Intermediate RASH Verified 09/30/18 22:45 metoprolol Allergy Intermediate RASH Verified 09/30/18 22:45 Sulfa (Sulfonamide Allergy Intermediate severe red Verified 09/30/18 22:45 Antibiotics) rash moxifloxacin Allergy Unknown throat Verified 09/30/18 22:45 swelling ofloxacin Allergy Unknown SWELLING Verified 09/30/18 22:45 AROUND FACE Home Medications Home Medications Medication Instructions Recorded Confirmed Type aclidinium bromide [Tudorza 1 puff INHALATION DAILY 08/03/18 09/30/18 History Pressair] albuterol sulfate [Ventolin HFA] 2 puff INHALATION QID PRN 08/03/18 09/30/18 History arformoterol [Brovana] 15 mcg INHALATION Q12H 08/03/18 09/30/18 History ascorbic acid (vitamin C) 500 mg PO TID 08/03/18 09/30/18 History cholecalciferol (vitamin D3) 2,000 unit PO DAILY 08/03/18 09/30/18 History codeine-guaifenesin [Cheratussin 5 ml PO Q4H PRN 08/03/18 09/30/18 History AC] cyanocobalamin (vitamin B-12) 1,000 mcg PO DAILY 08/03/18 09/30/18 History escitalopram oxalate 10 mg PO QAM 08/03/18 09/30/18 History ferrous sulfate [iron] 2 tab PO BID 08/03/18 09/30/18 History furosemide 20 mg PO DAILY PRN 08/03/18 09/30/18 History glimepiride 4 mg PO QAM 08/03/18 09/30/18 History glucosamine-chondroitin [Osteo 1 tab PO BID 08/03/18 09/30/18 History Bi-Flex] levothyroxine 37.5 mcg PO Q2D 08/03/18 09/30/18 History levothyroxine 75 mcg PO Q2D 08/03/18 09/30/18 History magnesium oxide 400 mg PO BID 08/03/18 09/30/18 History metformin 1,000 mg PO BID 08/03/18 09/30/18 History mbhzjiwh-wgy-DG-lycopen-lutein 1 tab PO DAILY 08/03/18 09/30/18 History [Centrum Silver] simvastatin 80 mg PO HS 08/03/18 09/30/18 History benzonatate [Tessalon Perles] 100 mg PO TID #12 cap 09/23/18 09/30/18 Rx doxycycline hyclate 100 mg PO BID@0800,2000 #7 cap 09/23/18 09/30/18 Rx fluconazole 100 mg PO QAM #30 tab 09/23/18 09/30/18 Rx ipratropium-albuterol 3 ml NEB .qidr #90 ml 09/23/18 09/30/18 Rx prednisone 40 mg PO DAILY 09/30/18 09/30/18 History Past Med/Surg History Medical History Diastolic CHF Anxiety Depression Hypothyroidism GERD (gastroesophageal reflux disease) DVT prophylaxis Hx of prostatic malignancy HLD (hyperlipidemia) HTN (hypertension) COPD (chronic obstructive pulmonary disease) with acute bronchitis (Acute ) Diabetes (Chronic) Anemia Anemia (Acute) Atrial flutter (Acute) COPD (chronic obstructive pulmonary disease) (Acute) Heart disease (Acute) IRREGULAR RHYTHYM Hx of fall (Acute) Hyperlipidemia (Acute) Hypothyroidism (Acute) Kidney stones (Acute) Orbital fracture (Acute) HX OF LT eye from fall Pleural effusion (Acute) HX OF Prostate CA (Acute) Type 2 diabetes mellitus (Acute) Mild HOCM (hypertrophic obstructive cardiomyopathy) Surgical History H/O arthroscopy of shoulder (Acute) RT shoulder H/O cystoscopy (Acute) H/O tooth extraction (Acute) History of prostatectomy (Acute) Hx of colonoscopy Hx of esophagogastroduodenoscopy Family History Other Cancer Social History Current Living Situation: Spouse Feels Safe at Home: Yes Safety Concerns: Feels Safe At This Time Smoking Status: Former smoker Do You Dip or Chew Tobacco: No Hx Alcohol Use: No Hx Substance Use: No Beliefs That Will Affect Care: None Preferred Language: Lithuanian Communication Ability: Effective Review of Systems +Palpitations +Dizziness with standing Physical Exam 2 Vital Signs (Past 24 Hours): Last Vital Signs Temp 36.5 C 09/30/18 22:25 Pulse 84 09/30/18 23:11 Resp 16 09/30/18 23:11 BP 103/79 09/30/18 22:25 Pulse Ox 97 09/30/18 23:11 Physical Exam: General: patient resting comfortably, NAD, non-toxic in appearance, AA&O x 4 Skin: warm, dry, intact, no rashes or lesions HEENT: NC/AT, PERRL, EOMI, anicteric sclera, conjunctiva without injection, external ear normal to inspection and nontender, nares patent, moist mucus membranes, dentition intact, no oropharyngeal lesions, neck supple, trachea midline, no LAD, no thyromegaly, no JVD Heart: +S1/S2, irregular, tachycardic, no m/r/g Lungs: equal air entry bilaterally, no rales/rhonchi/wheezes Abd: +BS, soft, NT/ND, no masses/organomegaly/ascites Ext: warm, 2+ pulses in UE/LE bilaterally, no clubbing/cyanosis or edema Neuro: nonfocal, patient AA&O x 4, speech intact, no facial droop, moving all extremities on command with equal strength 5/5 Results & Data Laboratory Results Lab Results 09/30/18 09/30/18 09/30/18 Range/Units 15:05 15:05 15:15 WBC 15.96 H (4.8-10.8) K/uL RBC 4.47 L (4.7-6.1) M/uL Hgb 14.3 (14.0-18.0) g/dL Hct 43.4 (42-52) % MCV 97.1 (80-100) fL MCH 32.0 (25-34) pg MCHC 32.9 (32-36) g/dL RDW Std Deviation 46.3 (36.4-46.3) fL RDW Coeff of Ruddy 13.0 (11.5-14.5) % Plt Count 311 (130-400) K/uL MPV 11.3 H (7.4-10.4) fL Immature Gran % (Auto) 5.9 % Neut % (Auto) 85.3 % Lymph % (Auto) 6.0 % [place] % (Auto) 2.1 % Eos % (Auto) 0.1 % Baso % (Auto) 0.6 % Immature Gran # (Auto) 0.94 H (0.00-0.02) K/uL Neut # (Auto) 13.63 H (1.4-6.5) K/uL Lymph # (Auto) 0.95 L (1.2-3.4) K/uL [place] # (Auto) 0.33 (0.11-0.59) K/uL Eos # (Auto) 0.01 (0-0.5) K/uL Baso # (Auto) 0.10 (0-0.2) K/uL PT (9.0-12.0) Seconds INR (0.9-1.1) APTT (21.0-31.0) Seconds PTT Ratio VBG pH (7.36-7.41) VBG pCO2 (38-50) mmHg VBG pO2 mmHg VBG HCO3 mmol/L VBG O2 Saturation % VBG Base Excess mEq/L Barometric Pressure mm/Hg Sodium 133 L (136-145) mmol/L Potassium 4.9 (3.5-5.1) mmol/L Chloride 96 L (98-107) mmol/L Carbon Dioxide 22 (21-32) mmol/L Anion Gap 14.0 H (3-11) BUN 34 H (7-18) mg/dl Creatinine 1.78 H (0.6-1.4) mg/dl Est Cr Clr Drug Dosing 36.3 ml/min Est GFR ( Amer) 40.8 Est GFR (Non-Af Amer) 35.2 BUN/Creatinine Ratio 19.3 (10-20) Glucose 474 H* (70-99) mg/dl POC Glucose (70-99) Calcium 9.4 (8.5-10.1) mg/dl Phosphorus (2.5-4.9) mg/dl Magnesium (1.8-2.4) mg/dl Total Bilirubin 0.4 (0.2-1) mg/dl AST 10 L (15-37) U/L ALT 32 (12-78) U/L Alkaline Phosphatase 71 (45-117) U/L POC Troponin I 0.10 H (0-0.045) ng/ml Troponin I 0.098 H* (0-0.045) ng/ml Total Protein 6.6 (6.4-8.2) gm/dl Albumin 3.1 L (3.4-5.0) gm/dl Globulin 3.5 (2.5-4.0) gm/dl Albumin/Globulin Ratio 0.9 (0.9-2) Lipase 257 (73-393) U/L Beta-Hydroxybutyric Acd 5.40 H (0.2-2.81) mg/dl TSH (0.300-4.500) uIu/ml Free T4 (0.8-1.6) ng/dl Urine Color Urine Appearance (Clear) Urine pH (4.5-7.5) Ur Specific [place] (1.000-1.030) Urine Protein (Negative) Urine Glucose (UA) (Negative) Urine Ketones (Negative) Urine Blood (Negative) Urine Nitrite (Negative) Urine Bilirubin (Negative) Urine Urobilinogen (Negative) Ur Leukocyte Esterase (Negative) 09/30/18 09/30/18 09/30/18 Range/Units 16:23 18:36 18:37 WBC (4.8-10.8) K/uL RBC (4.7-6.1) M/uL Hgb (14.0-18.0) g/dL Hct (42-52) % MCV (80-100) fL MCH (25-34) pg MCHC (32-36) g/dL RDW Std Deviation (36.4-46.3) fL RDW Coeff of Ruddy (11.5-14.5) % Plt Count (130-400) K/uL MPV (7.4-10.4) fL Immature Gran % (Auto) % Neut % (Auto) % Lymph % (Auto) % [place] % (Auto) % Eos % (Auto) % Baso % (Auto) % Immature Gran # (Auto) (0.00-0.02) K/uL Neut # (Auto) (1.4-6.5) K/uL Lymph # (Auto) (1.2-3.4) K/uL [place]asper # (Auto) (0.11-0.59) K/uL Eos # (Auto) (0-0.5) K/uL Baso # (Auto) (0-0.2) K/uL PT (9.0-12.0) Seconds INR (0.9-1.1) APTT (21.0-31.0) Seconds PTT Ratio VBG pH 7.45 H (7.36-7.41) VBG pCO2 29 L (38-50) mmHg VBG pO2 45 mmHg VBG HCO3 19 mmol/L VBG O2 Saturation 81.6 % VBG Base Excess -3.3 mEq/L Barometric Pressure 736.9 mm/Hg Sodium (136-145) mmol/L Potassium (3.5-5.1) mmol/L Chloride (98-107) mmol/L Carbon Dioxide (21-32) mmol/L Anion Gap (3-11) BUN (7-18) mg/dl Creatinine (0.6-1.4) mg/dl Est Cr Clr Drug Dosing ml/min Est GFR ( Amer) Est GFR (Non-Af Amer) BUN/Creatinine Ratio (10-20) Glucose (70-99) mg/dl POC Glucose 354 H* 353 H* (70-99) Calcium (8.5-10.1) mg/dl Phosphorus (2.5-4.9) mg/dl Magnesium (1.8-2.4) mg/dl Total Bilirubin (0.2-1) mg/dl AST (15-37) U/L ALT (12-78) U/L Alkaline Phosphatase (45-117) U/L POC Troponin I (0-0.045) ng/ml Troponin I (0-0.045) ng/ml Total Protein (6.4-8.2) gm/dl Albumin (3.4-5.0) gm/dl Globulin (2.5-4.0) gm/dl Albumin/Globulin Ratio (0.9-2) Lipase (73-393) U/L Beta-Hydroxybutyric Acd (0.2-2.81) mg/dl TSH (0.300-4.500) uIu/ml Free T4 (0.8-1.6) ng/dl Urine Color Urine Appearance (Clear) Urine pH (4.5-7.5) Ur Specific [place] (1.000-1.030) Urine Protein (Negative) Urine Glucose (UA) (Negative) Urine Ketones (Negative) Urine Blood (Negative) Urine Nitrite (Negative) Urine Bilirubin (Negative) Urine Urobilinogen (Negative) Ur Leukocyte Esterase (Negative) 09/30/18 09/30/18 09/30/18 Range/Units 19:32 22:25 22:49 WBC (4.8-10.8) K/uL RBC (4.7-6.1) M/uL Hgb (14.0-18.0) g/dL Hct (42-52) % MCV (80-100) fL MCH (25-34) pg MCHC (32-36) g/dL RDW Std Deviation (36.4-46.3) fL RDW Coeff of Ruddy (11.5-14.5) % Plt Count (130-400) K/uL MPV (7.4-10.4) fL Immature Gran % (Auto) % Neut % (Auto) % Lymph % (Auto) % [place] % (Auto) % Eos % (Auto) % Baso % (Auto) % Immature Gran # (Auto) (0.00-0.02) K/uL Neut # (Auto) (1.4-6.5) K/uL Lymph # (Auto) (1.2-3.4) K/uL [place] # (Auto) (0.11-0.59) K/uL Eos # (Auto) (0-0.5) K/uL Baso # (Auto) (0-0.2) K/uL PT (9.0-12.0) Seconds INR (0.9-1.1) APTT (21.0-31.0) Seconds PTT Ratio VBG pH (7.36-7.41) VBG pCO2 (38-50) mmHg VBG pO2 mmHg VBG HCO3 mmol/L VBG O2 Saturation % VBG Base Excess mEq/L Barometric Pressure mm/Hg Sodium (136-145) mmol/L Potassium (3.5-5.1) mmol/L Chloride (98-107) mmol/L Carbon Dioxide (21-32) mmol/L Anion Gap (3-11) BUN (7-18) mg/dl Creatinine (0.6-1.4) mg/dl Est Cr Clr Drug Dosing ml/min Est GFR ( Amer) Est GFR (Non-Af Amer) BUN/Creatinine Ratio (10-20) Glucose (70-99) mg/dl POC Glucose 348 H (70-99) Calcium (8.5-10.1) mg/dl Phosphorus 3.4 (2.5-4.9) mg/dl Magnesium 1.9 (1.8-2.4) mg/dl Total Bilirubin (0.2-1) mg/dl AST (15-37) U/L ALT (12-78) U/L Alkaline Phosphatase (45-117) U/L POC Troponin I (0-0.045) ng/ml Troponin I 0.676 H* (0-0.045) ng/ml Total Protein (6.4-8.2) gm/dl Albumin (3.4-5.0) gm/dl Globulin (2.5-4.0) gm/dl Albumin/Globulin Ratio (0.9-2) Lipase (73-393) U/L Beta-Hydroxybutyric Acd (0.2-2.81) mg/dl TSH 0.185 L (0.300-4.500) uIu/ml Free T4 1.17 (0.8-1.6) ng/dl Urine Color Yellow Urine Appearance Clear (Clear) Urine pH 5.0 (4.5-7.5) Ur Specific [place] 1.034 H (1.000-1.030) Urine Protein Negative (Negative) Urine Glucose (UA) 3+ H (Negative) Urine Ketones Trace H (Negative) Urine Blood Negative (Negative) Urine Nitrite Negative (Negative) Urine Bilirubin Negative (Negative) Urine Urobilinogen Negative (Negative) Ur Leukocyte Esterase Negative (Negative) 10/01/18 Range/Units 00:13 WBC (4.8-10.8) K/uL RBC (4.7-6.1) M/uL Hgb (14.0-18.0) g/dL Hct (42-52) % MCV (80-100) fL MCH (25-34) pg MCHC (32-36) g/dL RDW Std Deviation (36.4-46.3) fL RDW Coeff of Ruddy (11.5-14.5) % Plt Count (130-400) K/uL MPV (7.4-10.4) fL Immature Gran % (Auto) % Neut % (Auto) % Lymph % (Auto) % [place] % (Auto) % Eos % (Auto) % Baso % (Auto) % Immature Gran # (Auto) (0.00-0.02) K/uL Neut # (Auto) (1.4-6.5) K/uL Lymph # (Auto) (1.2-3.4) K/uL [place] # (Auto) (0.11-0.59) K/uL Eos # (Auto) (0-0.5) K/uL Baso # (Auto) (0-0.2) K/uL PT 10.9 (9.0-12.0) Seconds INR 1.1 (0.9-1.1) APTT 25.4 (21.0-31.0) Seconds PTT Ratio 1.0 VBG pH (7.36-7.41) VBG pCO2 (38-50) mmHg VBG pO2 mmHg VBG HCO3 mmol/L VBG O2 Saturation % VBG Base Excess mEq/L Barometric Pressure mm/Hg Sodium (136-145) mmol/L Potassium (3.5-5.1) mmol/L Chloride (98-107) mmol/L Carbon Dioxide (21-32) mmol/L Anion Gap (3-11) BUN (7-18) mg/dl Creatinine (0.6-1.4) mg/dl Est Cr Clr Drug Dosing ml/min Est GFR ( Amer) Est GFR (Non-Af Amer) BUN/Creatinine Ratio (10-20) Glucose (70-99) mg/dl POC Glucose (70-99) Calcium (8.5-10.1) mg/dl Phosphorus (2.5-4.9) mg/dl Magnesium (1.8-2.4) mg/dl Total Bilirubin (0.2-1) mg/dl AST (15-37) U/L ALT (12-78) U/L Alkaline Phosphatase (45-117) U/L POC Troponin I (0-0.045) ng/ml Troponin I (0-0.045) ng/ml Total Protein (6.4-8.2) gm/dl Albumin (3.4-5.0) gm/dl Globulin (2.5-4.0) gm/dl Albumin/Globulin Ratio (0.9-2) Lipase (73-393) U/L Beta-Hydroxybutyric Acd (0.2-2.81) mg/dl TSH (0.300-4.500) uIu/ml Free T4 (0.8-1.6) ng/dl Urine Color Urine Appearance (Clear) Urine pH (4.5-7.5) Ur Specific [place] (1.000-1.030) Urine Protein (Negative) Urine Glucose (UA) (Negative) Urine Ketones (Negative) Urine Blood (Negative) Urine Nitrite (Negative) Urine Bilirubin (Negative) Urine Urobilinogen (Negative) Ur Leukocyte Esterase (Negative) Diagnostic Findings XR chest 1V portable CLINICAL HISTORY: Chest Pain COMPARISON STUDY: Chest radiograph September 20, 2018. FINDINGS: There is no pneumothorax or pleural effusion. Mild cardiomegaly is unchanged. There is no evidence for pulmonary edema or pneumonia. Slight blunting of the right costophrenic angle is likely chronic. Linear right basilar opacity favors atelectasis or scarring. IMPRESSION: No acute cardiopulmonary findings. Electronically signed by: Cesar Faye M.D. 09/30/2018 3:[address] ANGIOGRAM OF THE CHEST CLINICAL HISTORY: Atypical chest pain. COMPARISON STUDY: Chest x-ray dated 09/30/2018. Chest CT scans dated 04/04/2017 and 10/10/2013. TECHNIQUE: Following the IV administration of 90 cc of Optiray 320, CT angiogram of the chest was performed from the upper abdomen to the thoracic inlet utilizing the pulmonary embolus protocol. Images are reviewed in the axial , sagittal, and coronal planes. 3-D MIPS images are created and assessed. IV contrast was administered without complication. A dose lowering technique was utilized adhering to the principles of ALARA. The examination is degraded by motion artifact. CT DOSE: 401.23 mGy.cm FINDINGS: Thyroid: Imaged portions of the thyroid gland are normal in size and attenuation. Thoracic aorta: There is mild atherosclerotic calcification of the thoracic aorta, which is normal in caliber and demonstrates standard 3-vessel arch anatomy. No dissection is seen. Pulmonary vasculature: The pulmonary trunk is normal in caliber. There are no filling defects identified in main, lobar, or proximal segmental pulmonary branches to suggest pulmonary embolus. Evaluation of the peripheral branches is degraded by motion artifact. Heart: The heart is enlarged and without pericardial effusion. The coronary arteries are densely calcified. There is also calcification of the mitral annulus. Lungs and pleural spaces: Evaluation of the lung parenchyma is degraded by motion artifact. The trachea and central airways are clear. There is trace right pleural effusion with associated atelectasis. Minimal fluid is noted along the right major fissure. Foci of scarring/atelectasis in the lower lobes are similar to previous. Mild diffuse peribronchial thickening is noted, greatest in the upper lobes. Mediastinum: There is no mediastinal lymphadenopathy. Magda: Clear. Axillae: There is no axillary lymphadenopathy. Upper abdomen: Partially visualized upper abdominal viscera is within normal limits. Skeletal structures: The skeletal structures are osteopenic. Mild degenerative changes noted in the shoulders and thoracic spine. Chronic posttraumatic deformity is suggested in the body of the sternum. No lytic or blastic bony lesions are seen. IMPRESSION: 1. There is no evidence of pulmonary embolus in the main, lobar, or proximal segmental pulmonary arteries. 2. Cardiomegaly. 3. A trace right pleural effusion is similar to previous, as are foci of bibasilar scarring/atelectasis. 4. No airspace consolidation is seen typical for pneumonia. 5. Mild diffuse peribronchial thickening suggests reactive air disease. Clinical correlation will be required. 6. Additional findings as above. Electronically signed by: Fausto Donovan M.D. 09/30/2018 8:00 PM Dictated: 09/30/181950 Transcribed: 09/30/181950 ECG Additional Comments: Aflutter with 2:1 AV block, 153bpm, RBBB, Left posterior fascicular block Code Status & VTE Plan Code Status FULL Critical Care Time Critical Care Time: No _ (1) Atrial fibrillation Atrial fibrillation type: unspecified Qualified Code(s): I48.91 - Unspecified atrial fibrillation (2) Diabetes Diabetes mellitus type: type 2 Diabetes mellitus predatory animal exterminator insulin use: with predatory animal exterminator use Diabetes mellitus complication status: without complication Qualified Code(s): E11.9 - Type 2 diabetes mellitus without complications; Z79.4 - senior care (current) use of insulin
[2018-10-01] MEDS ORDERED: AMIODARONE / D5W 360 MG/200 ML BAG IV SCH (04:45)
[2018-10-01] MEDS: LEVOTHYROXINE SODIUM 75 MCG TABLET PO SCH (04:57)
[2018-10-01] MEDS ORDERED: LEVOTHYROXINE SODIUM 75 MCG TABLET PO SCH (06:30)
[2018-10-01] MEDS: ALBUT/IPRATROP 3MG/0.5MG NEB 3 ML VIAL NEB SCH ×4 (06:51→19:36)
[2018-10-01] MEDS: ARFORMOTEROL TART 15MCG/2ML VIAL INH SCH ×2 (06:51→19:37)
[2018-10-01 07:33] LABS: Basophils # (auto) 0.01 K/uL (0-0.2); Basophils % (auto) 0.1 %; Eosinophils # (auto) 0.07 K/uL (0-0.5); Eosinophils % (auto) 0.5 %; Hemoglobin 11.4 g/dL (14.0-18.0); Immature Granulocytes # (auto) 0.47 K/uL (0.00-0.02); Immature Granulocytes % (auto) 3.1 %; Lymphocytes # (auto) 2.29 K/uL (1.2-3.4); Lymphocytes % (auto) 14.9 %; Mean Corpuscular Hgb Conc 33.5 g/dL (32-36); Mean Corpuscular Volume 95.2 fL (80-100); Mean Platelet Volume 10.4 fL (7.4-10.4); Monocytes # (auto) 1.32 K/uL (0.11-0.59); Monocytes % (auto) 8.6 %; Neutrophils # (auto) 11.21 K/uL (1.4-6.5); Neutrophils % (auto) 72.8 %; Platelet Count 218 K/uL (130-400); RDW Standard Deviation 45.3 fL (36.4-46.3); Red Blood Count 3.57 M/uL (4.7-6.1); White Blood Count 15.37 K/uL (4.8-10.8)
[2018-10-01 07:38] LABS: BUN Creatinine Ratio 21.1 (10-20); Calcium 7.7 mg/dl (8.5-10.1); Creatinine Clr Calc Pharmacy 55.3 ml/min; Est GFR (African American) 67.8; Est GFR (Non-African American) 58.5; Potassium 3.4 mmol/L (3.5-5.1)
[2018-10-01 07:39] LABS: Partial Thromboplastin Ratio 5.6
[2018-10-01 07:45] LABS: Troponin I 0.681 ng/ml (0-0.045)
[2018-10-01] MEDS: ESCITALOPRAM OXALATE 10 MG TAB PO SCH (07:59)
[2018-10-01] MEDS: FERROUS SULFATE 325 MG TAB PO SCH ×2 (07:59→20:26)
[2018-10-01] MEDS: CHOLECALCIFEROL 1,000 UNITS TAB PO SCH (07:59)
[2018-10-01] MEDS: MAGNESIUM OXIDE 400 MG TAB PO SCH ×2 (07:59→20:26)
[2018-10-01] MEDS: predniSONE 20 MG TAB PO SCH (07:59)
[2018-10-01] MEDS: BENZONATATE 100 MG CAPSULE PO SCH ×3 (08:00→20:26)
[2018-10-01] MEDS: ASCORBIC ACID 500 MG TAB PO SCH ×3 (08:00→20:27)
[2018-10-01] MEDS: CYANOCOBALAMIN 500 MCG TABLET (VITAMIN B-12) PO SCH (08:00)
[2018-10-01] MEDS: INSULIN ASPART 100 UNITS/ML 3 ML PEN SC SCH ×4 (08:03→20:29)
[2018-10-01] MEDS: INSULIN GLARGINE SOLOSTAR 100 UNITS/ML 3 ML PEN SC SCH ×2 (08:09→20:28)
[2018-10-01 08:17] LABS: Partial Thromboplastin Time 145.9 Seconds (21.0-31.0)
[2018-10-01] MEDS ORDERED: POTASSIUM CHLORIDE / WTR 10 MEQ/100 ML PLCT IV ONE (09:15)
--- NOTE | 2018-10-01 10:16 | Cardiology Consultation ---
Addendum entered and electronically signed by Timothy Christie MD 10/01/18 15:59: Addendum (Blank) Addendum October 01, 2018 15:57 Addendum: Will not be cardioverted tomorrow, will hold MADISON and resume diet for now. Original Note: Date of Consultation October 01, 2018 Assessment & Plan (1) Atrial fibrillation: Mr. Gibson is an 78yo M with a PMHx of Afib/Aflutter off anticoagulation 2/2 anemia, HTN, DM (last A1C 9.4 on 09/22/2018), COPD, and diastolic CHF who presented to the ED with one day of L sided chest pressure 6/10 in intensity with a 'heavy' quality which persisted for one day and who was foudn to be in 2: 1 aflutter with mildly increased troponins on admission. Chest Pain with mildly elevated troponins - Currently asymptomatic - Troponins .098, .676, .681 - Suspect 2/2 aflutter with RVR with demand ischemia - ECG shows Aflutter with 2:1 block and RBBB. 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 - Had had his aflutter tx with diltiazem, metoprolol, and amiodarone in the past. [place] Metoprolol was stopped in 2014 after he developed a unilateral truncal macular rash which resolved after stopping the medication, although no urticaria or pruritis was noted. - Anticoagulation with Apixaban/ASA was stopped in the setting of anemia with Hgb 6.8 requiring transfusion with negative Gi workup including EGD, colonoscopy and capsule endoscopy. Hgb has been stable >11 for the last year. - Last ECHO 05/2018: LVEF 55-60%, mod asymetrical LVH, grade I diastolic dysfunction, mild dynamic outflow obstruction - TSH 0.85, recommend decreasing synthroid replacement; overreplation may contribute to his tachyarrythmia. - Continue heparin gtt - Stop amiodarone drip, restart diltiazem drip with 20mg loading dose - NPO after midnight, MADISON tomorrow - Consider cardioversion depending on above - May be an ablation candidate in the future, discussion pending seeing how he dose with medical tx. Would also be concerned about amiodarone use given his preexisting lung disease. (2) Elevated troponin: (3) Diabetes: Supervising Physician Co-Signing Physician Notes DR. ESPINOZA ADDENDUM Patient seen and examined. Agree with assessment and plan as outlined above by Dr. Christie. Patient well-known to me from outpatient setting. He has a history of paroxysmal atrial flutter without recurrent episodes of the last several years. Previously unable to tolerate anticoagulation due to slow presumed GI bleed with profound anemia. No clear source of GI bleeding identified. Has severe lung disease followed by pulmonary closely. Readmitted with 1-2 days of chest pain found to be in atrial flutter with RVR to heart rate to the 150s. Chest pain/palpitations resolved with attempts at rate control in the ED. Since that time is been asymptomatic. Initially started on diltiazem, transition to amiodarone. Currently tolerating anticoagulant with heparin. Discussed options for management with patient. For now we will plan on continued attempts at rate control with AV maría agents. Suspect rate control will be difficult but okay with some degree of RVR as long as remains asymptomatic. Discussed with Dr. Sorenson and will plan for atrial flutter ablation with him on . History of Present Illness Reason for Consultation: Aflutter with RVR Requesting Physician: Fina Thomas Attending Physician: Carley Parker History of Present Illness Mr. Gibson is an 78yo M who presented to the ED with one day of L sided chest pressure 6/10 in intensity with a 'heavy' quality which persisted for one day and resolved after gettign to the ED. He endorses a recent COPD exacerbation tx for 1 week with oral prednisone, and endorses increased shortness of breath with his chest pain which has improved/resolved to normal baseline today. He felt mildly lightheaded/dizzy last night, denies lightheadedness/dizziness today. No syncope. No diaphoresis. Endorses palpitations and a racing heart yesterday, none today. Cannot tell when he is in aflutter/afib. Has been treated with a variety of medications in the past, does not remember the details off the top of his head. Knows he was on Eliquis for a few weeks but this was stopped in the setting of anemia and easy bruising. he had a colonoscopy which did not show any source of the bleeding and he was treated with IV iron intermittently. prior to this episode he notes he has had some episodes of chest pain caused by going up flights of stairs. Reports he has some chest pressure and shortness of breath which lasts for 1/2 day to a day but then goes away. No sweating with these episodes, is not sure the time frame over which they have been occuring/ worsening but notices is more the last few months. FHx: History of CAD, 'small heart attack', and cancer of unknown type in his mother. Denies history of medical illness in his father. Social: no tobacco use. no EtoH use. No recreational drug use. Lives with his in [place]. No fevers/chills. No abdominal pain, no n/v/d/c. All Scripts chart Review: Had had his aflutter tx with diltiazem, metoprolol, and amiodarone in the past. [place] was [place] in [place] Metoprolol was stopped in 2014 after he developed a unilateral truncal macular rash which resolved after stopping the medication, although no urticaria or pruritis was noted. He has been anemic in the past and was seen in [facility] for worsening fatigue awith Hgb down to 6.8 and requiring transfusion. Negative EGD, colonoscopy and capsule endoscopy at the time by GI. Eliquis and aspirin were stopped as a result. Hgb has been stable >11 for the last year. ECHO 05/2018: LVEF 55-60%, mod asymetrical LVH, grade I diastolic dysfunction, mild dynamic outflow obstruction Allergies Allergy/AdvReac Type Severity Reaction Status Date / Time Quinolones Allergy Severe ANAPHYLAXIS Verified 09/30/18 22:45 formoterol Allergy Intermediate RASH Verified 09/30/18 22:45 metoprolol Allergy Intermediate RASH Verified 09/30/18 22:45 Sulfa (Sulfonamide Allergy Intermediate severe red Verified 09/30/18 22:45 Antibiotics) rash moxifloxacin Allergy Unknown throat Verified 09/30/18 22:45 swelling ofloxacin Allergy Unknown SWELLING Verified 09/30/18 22:45 AROUND FACE Home Medications Home Medications Medication Instructions Recorded Confirmed Type aclidinium bromide [Tudorza 1 puff INHALATION DAILY 08/03/18 09/30/18 History Pressair] albuterol sulfate [Ventolin HFA] 2 puff INHALATION QID PRN 08/03/18 09/30/18 History arformoterol [Brovana] 15 mcg INHALATION Q12H 08/03/18 09/30/18 History ascorbic acid (vitamin C) 500 mg PO TID 08/03/18 09/30/18 History cholecalciferol (vitamin D3) 2,000 unit PO DAILY 08/03/18 09/30/18 History codeine-guaifenesin [Cheratussin 5 ml PO Q4H PRN 08/03/18 09/30/18 History AC] cyanocobalamin (vitamin B-12) 1,000 mcg PO DAILY 08/03/18 09/30/18 History escitalopram oxalate 10 mg PO QAM 08/03/18 09/30/18 History ferrous sulfate [iron] 2 tab PO BID 08/03/18 09/30/18 History furosemide 20 mg PO DAILY PRN 08/03/18 09/30/18 History glimepiride 4 mg PO QAM 08/03/18 09/30/18 History glucosamine-chondroitin [Osteo 1 tab PO BID 08/03/18 09/30/18 History Bi-Flex] levothyroxine 37.5 mcg PO Q2D 08/03/18 09/30/18 History levothyroxine 75 mcg PO Q2D 08/03/18 09/30/18 History magnesium oxide 400 mg PO BID 08/03/18 09/30/18 History metformin 1,000 mg PO BID 08/03/18 09/30/18 History pokrtncg-vda-FX-lycopen-lutein 1 tab PO DAILY 08/03/18 09/30/18 History [Centrum Silver] simvastatin 80 mg PO HS 08/03/18 09/30/18 History benzonatate [Tessalon Perles] 100 mg PO TID #12 cap 09/23/18 09/30/18 Rx doxycycline hyclate 100 mg PO BID@0800,2000 #7 cap 09/23/18 09/30/18 Rx fluconazole 100 mg PO QAM #30 tab 09/23/18 09/30/18 Rx ipratropium-albuterol 3 ml NEB .qidr #90 ml 09/23/18 09/30/18 Rx prednisone 40 mg PO DAILY 09/30/18 09/30/18 History Patient History Medical History Diastolic CHF Anxiety Depression Hypothyroidism GERD (gastroesophageal reflux disease) DVT prophylaxis Hx of prostatic malignancy HLD (hyperlipidemia) HTN (hypertension) COPD (chronic obstructive pulmonary disease) with acute bronchitis (Acute ) Diabetes (Chronic) Anemia Anemia (Acute) Atrial flutter (Acute) COPD (chronic obstructive pulmonary disease) (Acute) Heart disease (Acute) IRREGULAR RHYTHYM Hx of fall (Acute) Hyperlipidemia (Acute) Hypothyroidism (Acute) Kidney stones (Acute) Orbital fracture (Acute) HX OF LT eye from fall Pleural effusion (Acute) HX OF Prostate CA (Acute) Type 2 diabetes mellitus (Acute) Mild HOCM (hypertrophic obstructive cardiomyopathy) Surgical History H/O arthroscopy of shoulder (Acute) RT shoulder H/O cystoscopy (Acute) H/O tooth extraction (Acute) History of prostatectomy (Acute) Hx of colonoscopy Hx of esophagogastroduodenoscopy Social History marital status: Current Living Situation: Spouse Feels Safe at Home: Yes Safety Concerns: Feels Safe At This Time Smoking Status: Former smoker Do You Dip or Chew Tobacco: No Hx Alcohol Use: No Hx Substance Use: No Beliefs That Will Affect Care: None Communication Ability: Effective Review of Systems See HPI Physical Exam 2 Vital Signs (Past 24 Hours): Last Vital Signs Temp 36.7 C 10/01/18 07:10 Pulse 97 H 10/01/18 07:10 Resp 18 10/01/18 07:10 BP 123/61 10/01/18 07:10 Pulse Ox 97 10/01/18 07:10 Physical Exam: General: A&Ox3. NAD. Cooperative. HEENT: Atraumatic, normocephalic. Pulm: CTAB A&P. -wheezes, -rales, -rhonchi. Moderate air movement. Symmetrical chest rise. No increase work of breathing. No respiratory distress. Cardiac: Tachycardic, regular -mrg. Radial pulses intact and symmetrical. No JVD. 1+ lower extremity edema to the mid calf bilaterally. Abdominal: Nontender, nondistended, soft. BS present. Results & Data Laboratory Results 10/01/18 10/01/18 10/01/18 Range/Units 09:06 07:49 06:57 WBC (4.8-10.8) K/uL RBC (4.7-6.1) M/uL Hgb (14.0-18.0) g/dL Hct (42-52) % MCV (80-100) fL MCH (25-34) pg MCHC (32-36) g/dL RDW Std Deviation (36.4-46.3) fL RDW Coeff of Ruddy (11.5-14.5) % Plt Count (130-400) K/uL MPV (7.4-10.4) fL Immature Gran % (Auto) % Neut % (Auto) % Lymph % (Auto) % [place] % (Auto) % Eos % (Auto) % Baso % (Auto) % Immature Gran # (Auto) (0.00-0.02) K/uL Neut # (Auto) (1.4-6.5) K/uL Lymph # (Auto) (1.2-3.4) K/uL [place] # (Auto) (0.11-0.59) K/uL Eos # (Auto) (0-0.5) K/uL Baso # (Auto) (0-0.2) K/uL PT (9.0-12.0) Seconds INR (0.9-1.1) APTT 79.0 H* (21.0-31.0) Seconds PTT Ratio 3.0 VBG pH (7.36-7.41) VBG pCO2 (38-50) mmHg VBG pO2 mmHg VBG HCO3 mmol/L VBG O2 Saturation % VBG Base Excess mEq/L Barometric Pressure mm/Hg Sodium (136-145) mmol/L Potassium (3.5-5.1) mmol/L Chloride (98-107) mmol/L Carbon Dioxide (21-32) mmol/L Anion Gap (3-11) BUN (7-18) mg/dl Creatinine (0.6-1.4) mg/dl Est Cr Clr Drug Dosing ml/min Est GFR ( Amer) Est GFR (Non-Af Amer) BUN/Creatinine Ratio (10-20) Glucose (70-99) mg/dl POC Glucose 98 (70-99) Calcium (8.5-10.1) mg/dl Phosphorus (2.5-4.9) mg/dl Magnesium 2.0 (1.8-2.4) mg/dl Total Bilirubin (0.2-1) mg/dl AST (15-37) U/L ALT (12-78) U/L Alkaline Phosphatase (45-117) U/L POC Troponin I (0-0.045) ng/ml Troponin I (0-0.045) ng/ml Total Protein (6.4-8.2) gm/dl Albumin (3.4-5.0) gm/dl Globulin (2.5-4.0) gm/dl Albumin/Globulin Ratio (0.9-2) Lipase (73-393) U/L Beta-Hydroxybutyric Acd (0.2-2.81) mg/dl TSH (0.300-4.500) uIu/ml Free T4 (0.8-1.6) ng/dl Urine Color Urine Appearance (Clear) Urine pH (4.5-7.5) Ur Specific [place] (1.000-1.030) Urine Protein (Negative) Urine Glucose (UA) (Negative) Urine Ketones (Negative) Urine Blood (Negative) Urine Nitrite (Negative) Urine Bilirubin (Negative) Urine Urobilinogen (Negative) Ur Leukocyte Esterase (Negative) 10/01/18 10/01/18 10/01/18 Range/Units 06:57 06:57 06:57 WBC 15.37 H (4.8-10.8) K/uL RBC 3.57 L (4.7-6.1) M/uL Hgb 11.4 L (14.0-18.0) g/dL Hct 34.0 L (42-52) % MCV 95.2 (80-100) fL MCH 31.9 (25-34) pg MCHC 33.5 (32-36) g/dL RDW Std Deviation 45.3 (36.4-46.3) fL RDW Coeff of Ruddy 13.0 (11.5-14.5) % Plt Count 218 (130-400) K/uL MPV 10.4 (7.4-10.4) fL Immature Gran % (Auto) 3.1 % Neut % (Auto) 72.8 % Lymph % (Auto) 14.9 % [place] % (Auto) 8.6 % Eos % (Auto) 0.5 % Baso % (Auto) 0.1 % Immature Gran # (Auto) 0.47 H (0.00-0.02) K/uL Neut # (Auto) 11.21 H (1.4-6.5) K/uL Lymph # (Auto) 2.29 (1.2-3.4) K/uL [place] # (Auto) 1.32 H (0.11-0.59) K/uL Eos # (Auto) 0.07 (0-0.5) K/uL Baso # (Auto) 0.01 (0-0.2) K/uL PT (9.0-12.0) Seconds INR (0.9-1.1) APTT 145.9 H* (21.0-31.0) Seconds PTT Ratio 5.6 VBG pH (7.36-7.41) VBG pCO2 (38-50) mmHg VBG pO2 mmHg VBG HCO3 mmol/L VBG O2 Saturation % VBG Base Excess mEq/L Barometric Pressure mm/Hg Sodium 137 (136-145) mmol/L Potassium 3.4 L D (3.5-5.1) mmol/L Chloride 106 (98-107) mmol/L Carbon Dioxide 23 (21-32) mmol/L Anion Gap 8.0 (3-11) BUN 25 H (7-18) mg/dl Creatinine 1.17 D (0.6-1.4) mg/dl Est Cr Clr Drug Dosing 55.3 ml/min Est GFR ( Amer) 67.8 Est GFR (Non-Af Amer) 58.5 BUN/Creatinine Ratio 21.1 H (10-20) Glucose 124 H (70-99) mg/dl POC Glucose (70-99) Calcium 7.7 L D (8.5-10.1) mg/dl Phosphorus (2.5-4.9) mg/dl Magnesium (1.8-2.4) mg/dl Total Bilirubin (0.2-1) mg/dl AST (15-37) U/L ALT (12-78) U/L Alkaline Phosphatase (45-117) U/L POC Troponin I (0-0.045) ng/ml Troponin I 0.681 H* (0-0.045) ng/ml Total Protein (6.4-8.2) gm/dl Albumin (3.4-5.0) gm/dl Globulin (2.5-4.0) gm/dl Albumin/Globulin Ratio (0.9-2) Lipase (73-393) U/L Beta-Hydroxybutyric Acd (0.2-2.81) mg/dl TSH (0.300-4.500) uIu/ml Free T4 (0.8-1.6) ng/dl Urine Color Urine Appearance (Clear) Urine pH (4.5-7.5) Ur Specific [place] (1.000-1.030) Urine Protein (Negative) Urine Glucose (UA) (Negative) Urine Ketones (Negative) Urine Blood (Negative) Urine Nitrite (Negative) Urine Bilirubin (Negative) Urine Urobilinogen (Negative) Ur Leukocyte Esterase (Negative) 10/01/18 10/01/18 09/30/18 Range/Units 04:54 00:13 22:49 WBC (4.8-10.8) K/uL RBC (4.7-6.1) M/uL Hgb (14.0-18.0) g/dL Hct (42-52) % MCV (80-100) fL MCH (25-34) pg MCHC (32-36) g/dL RDW Std Deviation (36.4-46.3) fL RDW Coeff of Ruddy (11.5-14.5) % Plt Count (130-400) K/uL MPV (7.4-10.4) fL Immature Gran % (Auto) % Neut % (Auto) % Lymph % (Auto) % [place] % (Auto) % Eos % (Auto) % Baso % (Auto) % Immature Gran # (Auto) (0.00-0.02) K/uL Neut # (Auto) (1.4-6.5) K/uL Lymph # (Auto) (1.2-3.4) K/uL [place] # (Auto) (0.11-0.59) K/uL Eos # (Auto) (0-0.5) K/uL Baso # (Auto) (0-0.2) K/uL PT 10.9 (9.0-12.0) Seconds INR 1.1 (0.9-1.1) APTT 25.4 (21.0-31.0) Seconds PTT Ratio 1.0 VBG pH (7.36-7.41) VBG pCO2 (38-50) mmHg VBG pO2 mmHg VBG HCO3 mmol/L VBG O2 Saturation % VBG Base Excess mEq/L Barometric Pressure mm/Hg Sodium (136-145) mmol/L Potassium (3.5-5.1) mmol/L Chloride (98-107) mmol/L Carbon Dioxide (21-32) mmol/L Anion Gap (3-11) BUN (7-18) mg/dl Creatinine (0.6-1.4) mg/dl Est Cr Clr Drug Dosing ml/min Est GFR ( Amer) Est GFR (Non-Af Amer) BUN/Creatinine Ratio (10-20) Glucose (70-99) mg/dl POC Glucose 154 H (70-99) Calcium (8.5-10.1) mg/dl Phosphorus 3.4 (2.5-4.9) mg/dl Magnesium 1.9 (1.8-2.4) mg/dl Total Bilirubin (0.2-1) mg/dl AST (15-37) U/L ALT (12-78) U/L Alkaline Phosphatase (45-117) U/L POC Troponin I (0-0.045) ng/ml Troponin I 0.676 H* (0-0.045) ng/ml Total Protein (6.4-8.2) gm/dl Albumin (3.4-5.0) gm/dl Globulin (2.5-4.0) gm/dl Albumin/Globulin Ratio (0.9-2) Lipase (73-393) U/L Beta-Hydroxybutyric Acd (0.2-2.81) mg/dl TSH 0.185 L (0.300-4.500) uIu/ml Free T4 1.17 (0.8-1.6) ng/dl Urine Color Urine Appearance (Clear) Urine pH (4.5-7.5) Ur Specific [place] (1.000-1.030) Urine Protein (Negative) Urine Glucose (UA) (Negative) Urine Ketones (Negative) Urine Blood (Negative) Urine Nitrite (Negative) Urine Bilirubin (Negative) Urine Urobilinogen (Negative) Ur Leukocyte Esterase (Negative) 09/30/18 09/30/18 09/30/18 Range/Units 22:25 19:32 18:37 WBC (4.8-10.8) K/uL RBC (4.7-6.1) M/uL Hgb (14.0-18.0) g/dL Hct (42-52) % MCV (80-100) fL MCH (25-34) pg MCHC (32-36) g/dL RDW Std Deviation (36.4-46.3) fL RDW Coeff of Ruddy (11.5-14.5) % Plt Count (130-400) K/uL MPV (7.4-10.4) fL Immature Gran % (Auto) % Neut % (Auto) % Lymph % (Auto) % [place] % (Auto) % Eos % (Auto) % Baso % (Auto) % Immature Gran # (Auto) (0.00-0.02) K/uL Neut # (Auto) (1.4-6.5) K/uL Lymph # (Auto) (1.2-3.4) K/uL [place] # (Auto) (0.11-0.59) K/uL Eos # (Auto) (0-0.5) K/uL Baso # (Auto) (0-0.2) K/uL PT (9.0-12.0) Seconds INR (0.9-1.1) APTT (21.0-31.0) Seconds PTT Ratio VBG pH (7.36-7.41) VBG pCO2 (38-50) mmHg VBG pO2 mmHg VBG HCO3 mmol/L VBG O2 Saturation % VBG Base Excess mEq/L Barometric Pressure mm/Hg Sodium (136-145) mmol/L Potassium (3.5-5.1) mmol/L Chloride (98-107) mmol/L Carbon Dioxide (21-32) mmol/L Anion Gap (3-11) BUN (7-18) mg/dl Creatinine (0.6-1.4) mg/dl Est Cr Clr Drug Dosing ml/min Est GFR ( Amer) Est GFR (Non-Af Amer) BUN/Creatinine Ratio (10-20) Glucose (70-99) mg/dl POC Glucose 348 H 353 H* (70-99) Calcium (8.5-10.1) mg/dl Phosphorus (2.5-4.9) mg/dl Magnesium (1.8-2.4) mg/dl Total Bilirubin (0.2-1) mg/dl AST (15-37) U/L ALT (12-78) U/L Alkaline Phosphatase (45-117) U/L POC Troponin I (0-0.045) ng/ml Troponin I (0-0.045) ng/ml Total Protein (6.4-8.2) gm/dl Albumin (3.4-5.0) gm/dl Globulin (2.5-4.0) gm/dl Albumin/Globulin Ratio (0.9-2) Lipase (73-393) U/L Beta-Hydroxybutyric Acd (0.2-2.81) mg/dl TSH (0.300-4.500) uIu/ml Free T4 (0.8-1.6) ng/dl Urine Color Yellow Urine Appearance Clear (Clear) Urine pH 5.0 (4.5-7.5) Ur Specific [place] 1.034 H (1.000-1.030) Urine Protein Negative (Negative) Urine Glucose (UA) 3+ H (Negative) Urine Ketones Trace H (Negative) Urine Blood Negative (Negative) Urine Nitrite Negative (Negative) Urine Bilirubin Negative (Negative) Urine Urobilinogen Negative (Negative) Ur Leukocyte Esterase Negative (Negative) 09/30/18 09/30/18 09/30/18 Range/Units 18:36 16:23 15:15 WBC (4.8-10.8) K/uL RBC (4.7-6.1) M/uL Hgb (14.0-18.0) g/dL Hct (42-52) % MCV (80-100) fL MCH (25-34) pg MCHC (32-36) g/dL RDW Std Deviation (36.4-46.3) fL RDW Coeff of Ruddy (11.5-14.5) % Plt Count (130-400) K/uL MPV (7.4-10.4) fL Immature Gran % (Auto) % Neut % (Auto) % Lymph % (Auto) % [place] % (Auto) % Eos % (Auto) % Baso % (Auto) % Immature Gran # (Auto) (0.00-0.02) K/uL Neut # (Auto) (1.4-6.5) K/uL Lymph # (Auto) (1.2-3.4) K/uL [place] # (Auto) (0.11-0.59) K/uL Eos # (Auto) (0-0.5) K/uL Baso # (Auto) (0-0.2) K/uL PT (9.0-12.0) Seconds INR (0.9-1.1) APTT (21.0-31.0) Seconds PTT Ratio VBG pH 7.45 H (7.36-7.41) VBG pCO2 29 L (38-50) mmHg VBG pO2 45 mmHg VBG HCO3 19 mmol/L VBG O2 Saturation 81.6 % VBG Base Excess -3.3 mEq/L Barometric Pressure 736.9 mm/Hg Sodium (136-145) mmol/L Potassium (3.5-5.1) mmol/L Chloride (98-107) mmol/L Carbon Dioxide (21-32) mmol/L Anion Gap (3-11) BUN (7-18) mg/dl Creatinine (0.6-1.4) mg/dl Est Cr Clr Drug Dosing ml/min Est GFR ( Amer) Est GFR (Non-Af Amer) BUN/Creatinine Ratio (10-20) Glucose (70-99) mg/dl POC Glucose 354 H* (70-99) Calcium (8.5-10.1) mg/dl Phosphorus (2.5-4.9) mg/dl Magnesium (1.8-2.4) mg/dl Total Bilirubin (0.2-1) mg/dl AST (15-37) U/L ALT (12-78) U/L Alkaline Phosphatase (45-117) U/L POC Troponin I 0.10 H (0-0.045) ng/ml Troponin I (0-0.045) ng/ml Total Protein (6.4-8.2) gm/dl Albumin (3.4-5.0) gm/dl Globulin (2.5-4.0) gm/dl Albumin/Globulin Ratio (0.9-2) Lipase (73-393) U/L Beta-Hydroxybutyric Acd (0.2-2.81) mg/dl TSH (0.300-4.500) uIu/ml Free T4 (0.8-1.6) ng/dl Urine Color Urine Appearance (Clear) Urine pH (4.5-7.5) Ur Specific [place] (1.000-1.030) Urine Protein (Negative) Urine Glucose (UA) (Negative) Urine Ketones (Negative) Urine Blood (Negative) Urine Nitrite (Negative) Urine Bilirubin (Negative) Urine Urobilinogen (Negative) Ur Leukocyte Esterase (Negative) 09/30/18 09/30/18 Range/Units 15:05 15:05 WBC 15.96 H (4.8-10.8) K/uL RBC 4.47 L (4.7-6.1) M/uL Hgb 14.3 (14.0-18.0) g/dL Hct 43.4 (42-52) % MCV 97.1 (80-100) fL MCH 32.0 (25-34) pg MCHC 32.9 (32-36) g/dL RDW Std Deviation 46.3 (36.4-46.3) fL RDW Coeff of Ruddy 13.0 (11.5-14.5) % Plt Count 311 (130-400) K/uL MPV 11.3 H (7.4-10.4) fL Immature Gran % (Auto) 5.9 % Neut % (Auto) 85.3 % Lymph % (Auto) 6.0 % [place] % (Auto) 2.1 % Eos % (Auto) 0.1 % Baso % (Auto) 0.6 % Immature Gran # (Auto) 0.94 H (0.00-0.02) K/uL Neut # (Auto) 13.63 H (1.4-6.5) K/uL Lymph # (Auto) 0.95 L (1.2-3.4) K/uL [place] # (Auto) 0.33 (0.11-0.59) K/uL Eos # (Auto) 0.01 (0-0.5) K/uL Baso # (Auto) 0.10 (0-0.2) K/uL PT (9.0-12.0) Seconds INR (0.9-1.1) APTT (21.0-31.0) Seconds PTT Ratio VBG pH (7.36-7.41) VBG pCO2 (38-50) mmHg VBG pO2 mmHg VBG HCO3 mmol/L VBG O2 Saturation % VBG Base Excess mEq/L Barometric Pressure mm/Hg Sodium 133 L (136-145) mmol/L Potassium 4.9 (3.5-5.1) mmol/L Chloride 96 L (98-107) mmol/L Carbon Dioxide 22 (21-32) mmol/L Anion Gap 14.0 H (3-11) BUN 34 H (7-18) mg/dl Creatinine 1.78 H (0.6-1.4) mg/dl Est Cr Clr Drug Dosing 36.3 ml/min Est GFR ( Amer) 40.8 Est GFR (Non-Af Amer) 35.2 BUN/Creatinine Ratio 19.3 (10-20) Glucose 474 H* (70-99) mg/dl POC Glucose (70-99) Calcium 9.4 (8.5-10.1) mg/dl Phosphorus (2.5-4.9) mg/dl Magnesium (1.8-2.4) mg/dl Total Bilirubin 0.4 (0.2-1) mg/dl AST 10 L (15-37) U/L ALT 32 (12-78) U/L Alkaline Phosphatase 71 (45-117) U/L POC Troponin I (0-0.045) ng/ml Troponin I 0.098 H* (0-0.045) ng/ml Total Protein 6.6 (6.4-8.2) gm/dl Albumin 3.1 L (3.4-5.0) gm/dl Globulin 3.5 (2.5-4.0) gm/dl Albumin/Globulin Ratio 0.9 (0.9-2) Lipase 257 (73-393) U/L Beta-Hydroxybutyric Acd 5.40 H (0.2-2.81) mg/dl TSH (0.300-4.500) uIu/ml Free T4 (0.8-1.6) ng/dl Urine Color Urine Appearance (Clear) Urine pH (4.5-7.5) Ur Specific [place] (1.000-1.030) Urine Protein (Negative) Urine Glucose (UA) (Negative) Urine Ketones (Negative) Urine Blood (Negative) Urine Nitrite (Negative) Urine Bilirubin (Negative) Urine Urobilinogen (Negative) Ur Leukocyte Esterase (Negative) Medications Administered Current Inpatient Medications Albuterol (Duoneb) 3 ml NEB QIDR [facility] Stop: 10/30/18 22:44 Last Admin: 10/01/18 06:51 Dose: 3 ml Albuterol (Ventolin Hfa) 2 puffs INH QID PRN PRN Reason: Shortness Of Breath Stop: 10/30/18 22:23 Arformoterol Tartrate (Brovana Neb) 15 mcg INH BIDR [facility] Stop: 10/30/18 22:44 Last Admin: 10/01/18 06:51 Dose: Not Given Ascorbic Acid (Vitamin C) 500 mg PO TID [facility] Stop: 10/30/18 22:23 Last Admin: 10/01/18 08:00 Dose: 500 mg Benzonatate (Tessalon Perle) 100 mg PO TID [facility] Stop: 10/30/18 22:23 Last Admin: 10/01/18 08:00 Dose: 100 mg Cyanocobalamin (Vitamin B-12) 1,000 mcg PO DAILY [facility] Stop: 10/31/18 08:59 Last Admin: 10/01/18 08:00 Dose: 1,000 mcg Dextrose (Dextrose 50%) 25 - 50 ml IV UD PRN; Protocol PRN Reason: Hypoglycemia Protocol Stop: 10/30/18 22:23 Escitalopram Oxalate (Lexapro) 10 mg PO QAM [facility] Stop: 10/31/18 08:59 Last Admin: 10/01/18 07:59 Dose: 10 mg Ferrous Sulfate (Feosol) 325 mg PO BIDR [facility] Stop: 10/31/18 07:59 Last Admin: 10/01/18 07:59 Dose: 325 mg Glucagon (Glucagen) 1 mg SQ UD PRN; Protocol PRN Reason: Hypoglycemia Protocol Stop: 10/30/18 22:23 Glucose (Glucose 40%) 15 - 30 gm PO UD PRN; Protocol PRN Reason: Hypoglycemia Protocol Stop: 10/30/18 22:23 Glucose (Dex4 Glucose) 4 - 8 tabs PO UD PRN; Protocol PRN Reason: Hypoglycemia Protocol Stop: 10/30/18 22:23 Guaifenesin/Codeine Phosphate (Robitussin-Ac Sugar Free) 5 ml PO Q4H PRN PRN Reason: Cough Stop: 10/30/18 22:23 Amiodarone HCl/Dextrose (Nexterone / D5w) 360 mg in 200 mls @ 16.667 mls/hr IV .Q12H [facility] Stop: 10/31/18 04:44 Last Infusion: 10/01/18 07:11 Dose: 0.5 mg/min, 16.7 mls/hr Heparin Sodium/Dextrose (Heparin Sodium/Dextrose) 25,000 units in 500 mls @ 23 mls/hr IV .Q0M [facility]; Protocol Stop: 10/30/18 23:48 Last Titration: 10/01/18 09:53 Dose: 1,150 units/hr, 23 mls/hr Insulin Aspart (Novolog Flexpen) 0 units SC ACHS [facility] Stop: 10/30/18 22:59 Last Admin: 10/01/18 08:03 Dose: 6 units Insulin Glargine (Lantus Solostar Pen) 15 units SC BID [facility] Stop: 10/30/18 22:59 Last Admin: 10/01/18 08:09 Dose: 15 units Levothyroxine Sodium (Synthroid) 37.5 mcg PO Q2D@0630 [facility] Stop: 10/31/18 06:29 Last Admin: 10/01/18 05:12 Dose: 37.5 mcg Levothyroxine Sodium (Synthroid) 75 mcg PO Q2D@0630 [facility] Stop: 11/01/18 06:29 Magnesium Oxide (Mag-Ox) 400 mg PO BID [facility] Stop: 10/31/18 08:59 Last Admin: 10/01/18 07:59 Dose: 400 mg Miscellaneous (Order Awaiting Action) 1 ea N/A QS [facility] Stop: 10/30/18 22:44 Last Admin: 10/01/18 08:06 Dose: Not Given Miscellaneous (Carbohydrates For Hypoglycemia) 15 - 30 gm PO UD PRN PRN Reason: Hypoglycemia Treatment Stop: 10/30/18 22:23 Prednisone (Prednisone) 40 mg PO DAILY [facility] Stop: 10/31/18 08:59 Last Admin: 10/01/18 07:59 Dose: 40 mg Vitamin D (Vitamin D3) 2,000 units PO DAILY [facility] Stop: 10/31/18 08:59 Last Admin: 10/01/18 07:59 Dose: 2,000 units Resident Activity Tracking Resident Involvement: Resident Care Provided Care Provided: Adult Hospital Medicine _ (1) Diabetes Chronic kidney disease stage: Diabetes mellitus complication detail: Diabetes mellitus complication status: without complication Diabetes mellitus long chain beamer insulin use: with long chain beamer use Diabetes mellitus macular edema: Diabetes mellitus type: type 2 Diabetic retinopathy severity: Laterality: Proliferative retinopathy type: Qualified Code(s): E11.9 - Type 2 diabetes mellitus without complications; Z79.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
[2018-10-01] MEDS ORDERED: dilTIAZem HCl 5 MG/ML 5 ML VIAL IV ONE (13:30)
[2018-10-01] MEDS: dilTIAZem HCl 125 MG in DEXTROSE 5% 100 ML IV SCH ×2 (14:10→22:44)
--- NOTE | 2018-10-01 14:37 | Family Medicine Progress Note ---
Date of Service October 01, 2018 Assessment & Plan (1) Atrial fibrillation: 78yo M with a PMHx of Afib/Aflutter (not on any rate controlling med or anticoagulation), HTN, DM, COPD, and diastolic CHF presents with two days of L sided chest discomfort found to be in AF with mildly increased troponins on admission. 1) Afib/Aflutter with RVR -CHADS2-VASC 7.2% -restart dilt drip with 20 mg loading dose from amiodarone drip - HR was well controlled in 80-90s on tele overnight, increased to 140's since this morning - H/o aflutter tx with diltiazem, metoprolol, and amiodarone in the past. Amio was stopped in 2015 while in [place]. Metoprolol was stopped in 2014 after he developed a unilateral truncal macular rash which resolved after stopping the medication - In past -- Anticoagulation with Apixaban/ASA was stopped in the setting of anemia with Hgb 6.8 requiring transfusion with negative GI workup including EGD , colonoscopy and capsule endoscopy. Hgb has been stable >11 for the last year. - Last ECHO 05/2018: LVEF 55-60%, mod asymetrical LVH, grade I diastolic dysfunction, mild dynamic outflow obstruction - TSH 0.185, synthroid reduced to 75 mcg/day - Continue heparin drip - NPO after midnight, MADISON tomorrow - To consider cardioversion if still not controlled 2) Chest Pain with elevated troponins - Currently asymptomatic - Troponins .098, .676, .681 - Suspect 2/2 aflutter with RVR with demand ischemia vs. true ischemic event - ECG shows Aflutter with 2:1 block and RBBB. 3) DM II -Reports poor control lately as he has been on higher doses of steroids for COPD exacerbation. Last AIC=9.4 on 09/22/18 -Lantus 15u BID -ISS. Adjust as needed for target blood sugar 80 - 140 4) COPD -Stable. Lungs CTAB -Continue Duoneb PRN, Albuterol PRN -Continue Arformoterol -Tessalon Perles -Continue Prednisone 40mg po daily 5) Hypothyroidism: -TSH- 0.185 -Continue Synthroid 75 mcg 6) Anxiety -Cont Escitalopram FULL DVT Prophylaxis: Herparin Dispo: Tele. MADISON tomorrow Supervising Physician Co-Signing Physician Notes Resident Physician Supervision Note: I independently interviewed and examined the patient and verified the pleitez history and physical, reviewed labs and image studies, discussed the case with the resident Dr. Cordova and agree with the findings and care plan. Subjective 78 y/o M found in bed this AM in NAD. Pt reports no CP, SOB, feelings of palpitations since admission. No issues voiding. Able to ambulate. Pt made NPO. Pt has no other acute concerns or complaints. Review of Systems All systems reviewed & are unremarkable except as noted in HPI & below Physical Exam 2 Vital Signs (Past 24 Hours): Last Vital Signs Temp 36.4 C L 10/01/18 11:38 Pulse 143 H 10/01/18 11:38 Resp 18 10/01/18 11:38 BP 116/66 10/01/18 11:38 Pulse Ox 97 10/01/18 11:38 Constitutional: WD/WN, vitals as above Eyes: PERRL, conjunctivae normal, anicteric sclerae ENMT: external ear and nose normal, oropharynx normal Respiratory: normal respiratory effort, lungs clear to auscultation some crackling auscultated b/l Cardiovascular: irregularly irregular Gastrointestinal (Abdomen): normal bowel sounds, soft, nontender, no hepatosplenomegaly Skin: no rashes, warm and dry Psychiatric: A+Ox3, euthymic affect Results & Data Laboratory Results Laboratory Results - last 24 hr 09/30/18 09/30/18 09/30/18 15:05 15:05 15:15 WBC 15.96 H RBC 4.47 L Hgb 14.3 Hct 43.4 MCV 97.1 MCH 32.0 MCHC 32.9 RDW Std Deviation 46.3 RDW Coeff of Ruddy 13.0 Plt Count 311 MPV 11.3 H Immature Gran % (Auto) 5.9 Neut % (Auto) 85.3 Lymph % (Auto) 6.0 Swain % (Auto) 2.1 Eos % (Auto) 0.1 Baso % (Auto) 0.6 Immature Gran # (Auto) 0.94 H Neut # (Auto) 13.63 H Lymph # (Auto) 0.95 L Swain # (Auto) 0.33 Eos # (Auto) 0.01 Baso # (Auto) 0.10 PT INR APTT PTT Ratio VBG pH VBG pCO2 VBG pO2 VBG HCO3 VBG O2 Saturation VBG Base Excess Barometric Pressure Sodium 133 L Potassium 4.9 Chloride 96 L Carbon Dioxide 22 Anion Gap 14.0 H BUN 34 H Creatinine 1.78 H Est Cr Clr Drug Dosing 36.3 Est GFR ( Amer) 40.8 Est GFR (Non-Af Amer) 35.2 BUN/Creatinine Ratio 19.3 Glucose 474 H* POC Glucose Calcium 9.4 Phosphorus Magnesium Total Bilirubin 0.4 AST 10 L ALT 32 Alkaline Phosphatase 71 POC Troponin I 0.10 H Troponin I 0.098 H* Total Protein 6.6 Albumin 3.1 L Globulin 3.5 Albumin/Globulin Ratio 0.9 Lipase 257 Beta-Hydroxybutyric Acd 5.40 H TSH Free T4 Urine Color Urine Appearance Urine pH Ur Specific Baldwin Urine Protein Urine Glucose (UA) Urine Ketones Urine Blood Urine Nitrite Urine Bilirubin Urine Urobilinogen Ur Leukocyte Esterase 09/30/18 09/30/18 09/30/18 16:23 18:36 18:37 WBC RBC Hgb Hct MCV MCH MCHC RDW Std Deviation RDW Coeff of Ruddy Plt Count MPV Immature Gran % (Auto) Neut % (Auto) Lymph % (Auto) Swain % (Auto) Eos % (Auto) Baso % (Auto) Immature Gran # (Auto) Neut # (Auto) Lymph # (Auto) Swain # (Auto) Eos # (Auto) Baso # (Auto) PT INR APTT PTT Ratio VBG pH 7.45 H VBG pCO2 29 L VBG pO2 45 VBG HCO3 19 VBG O2 Saturation 81.6 VBG Base Excess -3.3 Barometric Pressure 736.9 Sodium Potassium Chloride Carbon Dioxide Anion Gap BUN Creatinine Est Cr Clr Drug Dosing Est GFR ( Amer) Est GFR (Non-Af Amer) BUN/Creatinine Ratio Glucose POC Glucose 354 H* 353 H* Calcium Phosphorus Magnesium Total Bilirubin AST ALT Alkaline Phosphatase POC Troponin I Troponin I Total Protein Albumin Globulin Albumin/Globulin Ratio Lipase Beta-Hydroxybutyric Acd TSH Free T4 Urine Color Urine Appearance Urine pH Ur Specific Baldwin Urine Protein Urine Glucose (UA) Urine Ketones Urine Blood Urine Nitrite Urine Bilirubin Urine Urobilinogen Ur Leukocyte Esterase 09/30/18 09/30/18 09/30/18 19:32 22:25 22:49 WBC RBC Hgb Hct MCV MCH MCHC RDW Std Deviation RDW Coeff of Ruddy Plt Count MPV Immature Gran % (Auto) Neut % (Auto) Lymph % (Auto) Swain % (Auto) Eos % (Auto) Baso % (Auto) Immature Gran # (Auto) Neut # (Auto) Lymph # (Auto) Swain # (Auto) Eos # (Auto) Baso # (Auto) PT INR APTT PTT Ratio VBG pH VBG pCO2 VBG pO2 VBG HCO3 VBG O2 Saturation VBG Base Excess Barometric Pressure Sodium Potassium Chloride Carbon Dioxide Anion Gap BUN Creatinine Est Cr Clr Drug Dosing Est GFR ( Amer) Est GFR (Non-Af Amer) BUN/Creatinine Ratio Glucose POC Glucose 348 H Calcium Phosphorus 3.4 Magnesium 1.9 Total Bilirubin AST ALT Alkaline Phosphatase POC Troponin I Troponin I 0.676 H* Total Protein Albumin Globulin Albumin/Globulin Ratio Lipase Beta-Hydroxybutyric Acd TSH 0.185 L Free T4 1.17 Urine Color Yellow Urine Appearance Clear Urine pH 5.0 Ur Specific Baldwin 1.034 H Urine Protein Negative Urine Glucose (UA) 3+ H Urine Ketones Trace H Urine Blood Negative Urine Nitrite Negative Urine Bilirubin Negative Urine Urobilinogen Negative Ur Leukocyte Esterase Negative 10/01/18 10/01/18 10/01/18 00:13 04:54 06:57 WBC 15.37 H RBC 3.57 L Hgb 11.4 L Hct 34.0 L MCV 95.2 MCH 31.9 MCHC 33.5 RDW Std Deviation 45.3 RDW Coeff of Ruddy 13.0 Plt Count 218 MPV 10.4 Immature Gran % (Auto) 3.1 Neut % (Auto) 72.8 Lymph % (Auto) 14.9 Swain % (Auto) 8.6 Eos % (Auto) 0.5 Baso % (Auto) 0.1 Immature Gran # (Auto) 0.47 H Neut # (Auto) 11.21 H Lymph # (Auto) 2.29 Swain # (Auto) 1.32 H Eos # (Auto) 0.07 Baso # (Auto) 0.01 PT 10.9 INR 1.1 APTT 25.4 PTT Ratio 1.0 VBG pH VBG pCO2 VBG pO2 VBG HCO3 VBG O2 Saturation VBG Base Excess Barometric Pressure Sodium Potassium Chloride Carbon Dioxide Anion Gap BUN Creatinine Est Cr Clr Drug Dosing Est GFR ( Amer) Est GFR (Non-Af Amer) BUN/Creatinine Ratio Glucose POC Glucose 154 H Calcium Phosphorus Magnesium Total Bilirubin AST ALT Alkaline Phosphatase POC Troponin I Troponin I Total Protein Albumin Globulin Albumin/Globulin Ratio Lipase Beta-Hydroxybutyric Acd TSH Free T4 Urine Color Urine Appearance Urine pH Ur Specific Baldwin Urine Protein Urine Glucose (UA) Urine Ketones Urine Blood Urine Nitrite Urine Bilirubin Urine Urobilinogen Ur Leukocyte Esterase 10/01/18 10/01/18 10/01/18 06:57 06:57 06:57 WBC RBC Hgb Hct MCV MCH MCHC RDW Std Deviation RDW Coeff of Ruddy Plt Count MPV Immature Gran % (Auto) Neut % (Auto) Lymph % (Auto) Swain % (Auto) Eos % (Auto) Baso % (Auto) Immature Gran # (Auto) Neut # (Auto) Lymph # (Auto) Swain # (Auto) Eos # (Auto) Baso # (Auto) PT INR APTT 145.9 H* PTT Ratio 5.6 VBG pH VBG pCO2 VBG pO2 VBG HCO3 VBG O2 Saturation VBG Base Excess Barometric Pressure Sodium 137 Potassium 3.4 L D Chloride 106 Carbon Dioxide 23 Anion Gap 8.0 BUN 25 H Creatinine 1.17 D Est Cr Clr Drug Dosing 55.3 Est GFR ( Amer) 67.8 Est GFR (Non-Af Amer) 58.5 BUN/Creatinine Ratio 21.1 H Glucose 124 H POC Glucose Calcium 7.7 L D Phosphorus Magnesium 2.0 Total Bilirubin AST ALT Alkaline Phosphatase POC Troponin I Troponin I 0.681 H* Total Protein Albumin Globulin Albumin/Globulin Ratio Lipase Beta-Hydroxybutyric Acd TSH Free T4 Urine Color Urine Appearance Urine pH Ur Specific Baldwin Urine Protein Urine Glucose (UA) Urine Ketones Urine Blood Urine Nitrite Urine Bilirubin Urine Urobilinogen Ur Leukocyte Esterase 10/01/18 10/01/18 10/01/18 07:49 09:06 10:54 WBC RBC Hgb Hct MCV MCH MCHC RDW Std Deviation RDW Coeff of Ruddy Plt Count MPV Immature Gran % (Auto) Neut % (Auto) Lymph % (Auto) Swain % (Auto) Eos % (Auto) Baso % (Auto) Immature Gran # (Auto) Neut # (Auto) Lymph # (Auto) Swain # (Auto) Eos # (Auto) Baso # (Auto) PT INR APTT 79.0 H* PTT Ratio 3.0 VBG pH VBG pCO2 VBG pO2 VBG HCO3 VBG O2 Saturation VBG Base Excess Barometric Pressure Sodium Potassium Chloride Carbon Dioxide Anion Gap BUN Creatinine Est Cr Clr Drug Dosing Est GFR ( Amer) Est GFR (Non-Af Amer) BUN/Creatinine Ratio Glucose POC Glucose 98 110 H Calcium Phosphorus Magnesium Total Bilirubin AST ALT Alkaline Phosphatase POC Troponin I Troponin I Total Protein Albumin Globulin Albumin/Globulin Ratio Lipase Beta-Hydroxybutyric Acd TSH Free T4 Urine Color Urine Appearance Urine pH Ur Specific Baldwin Urine Protein Urine Glucose (UA) Urine Ketones Urine Blood Urine Nitrite Urine Bilirubin Urine Urobilinogen Ur Leukocyte Esterase Medications Administered Current Inpatient Medications Albuterol (Duoneb) 3 ml NEB QIDR [facility] Stop: 10/30/18 22:44 Last Admin: 10/01/18 11:04 Dose: 3 ml Albuterol (Ventolin Hfa) 2 puffs INH QID PRN PRN Reason: Shortness Of Breath Stop: 10/30/18 22:23 Arformoterol Tartrate (Brovana Neb) 15 mcg INH BIDR [facility] Stop: 10/30/18 22:44 Last Admin: 10/01/18 06:51 Dose: Not Given Ascorbic Acid (Vitamin C) 500 mg PO TID [facility] Stop: 10/30/18 22:23 Last Admin: 10/01/18 13:13 Dose: 500 mg Benzonatate (Tessalon Perle) 100 mg PO TID [facility] Stop: 10/30/18 22:23 Last Admin: 10/01/18 13:13 Dose: 100 mg Cyanocobalamin (Vitamin B-12) 1,000 mcg PO DAILY [facility] Stop: 10/31/18 08:59 Last Admin: 10/01/18 08:00 Dose: 1,000 mcg Dextrose (Dextrose 50%) 25 - 50 ml IV UD PRN; Protocol PRN Reason: Hypoglycemia Protocol Stop: 10/30/18 22:23 Escitalopram Oxalate (Lexapro) 10 mg PO QAM [facility] Stop: 10/31/18 08:59 Last Admin: 10/01/18 07:59 Dose: 10 mg Ferrous Sulfate (Feosol) 325 mg PO BIDR [facility] Stop: 10/31/18 07:59 Last Admin: 10/01/18 07:59 Dose: 325 mg Glucagon (Glucagen) 1 mg SQ UD PRN; Protocol PRN Reason: Hypoglycemia Protocol Stop: 10/30/18 22:23 Glucose (Glucose 40%) 15 - 30 gm PO UD PRN; Protocol PRN Reason: Hypoglycemia Protocol Stop: 10/30/18 22:23 Glucose (Dex4 Glucose) 4 - 8 tabs PO UD PRN; Protocol PRN Reason: Hypoglycemia Protocol Stop: 10/30/18 22:23 Guaifenesin/Codeine Phosphate (Robitussin-Ac Sugar Free) 5 ml PO Q4H PRN PRN Reason: Cough Stop: 10/30/18 22:23 Heparin Sodium/Dextrose (Heparin Sodium/Dextrose) 25,000 units in 500 mls @ 23 mls/hr IV .Q0M [facility]; Protocol Stop: 10/30/18 23:48 Last Titration: 10/01/18 09:53 Dose: 1,150 units/hr, 23 mls/hr Diltiazem HCl 125 mg/ Dextrose 125 mls @ 5 mls/hr IV .Q24H [facility]; Protocol Stop: 10/31/18 13:29 Last Admin: 10/01/18 14:10 Dose: 5 mg/hr, 5 mls/hr Insulin Aspart (Novolog Flexpen) 0 units SC ACHS [facility] Stop: 10/30/18 22:59 Last Admin: 10/01/18 13:12 Dose: 6 units Insulin Glargine (Lantus Solostar Pen) 15 units SC BID [facility] Stop: 10/30/18 22:59 Last Admin: 10/01/18 08:09 Dose: 15 units Levothyroxine Sodium (Synthroid) 37.5 mcg PO Q2D@0630 [facility] Stop: 10/31/18 06:29 Last Admin: 10/01/18 05:12 Dose: 37.5 mcg Levothyroxine Sodium (Synthroid) 75 mcg PO Q2D@0630 [facility] Stop: 11/01/18 06:29 Magnesium Oxide (Mag-Ox) 400 mg PO BID [facility] Stop: 10/31/18 08:59 Last Admin: 10/01/18 07:59 Dose: 400 mg Miscellaneous (Order Awaiting Action) 1 ea N/A QS [facility] Stop: 10/30/18 22:44 Last Admin: 10/01/18 08:06 Dose: Not Given Miscellaneous (Carbohydrates For Hypoglycemia) 15 - 30 gm PO UD PRN PRN Reason: Hypoglycemia Treatment Stop: 10/30/18 22:23 Prednisone (Prednisone) 40 mg PO DAILY [facility] Stop: 10/31/18 08:59 Last Admin: 10/01/18 07:59 Dose: 40 mg Vitamin D (Vitamin D3) 2,000 units PO DAILY [facility] Stop: 10/31/18 08:59 Last Admin: 10/01/18 07:59 Dose: 2,000 units Resident Activity Tracking Resident Involvement: Resident Care Provided Care Provided: [facility] _ (1) Atrial fibrillation Atrial fibrillation type: unspecified Qualified Code(s): I48.91 - Unspecified atrial fibrillation
[2018-10-01 16:19] LABS: Partial Thromboplastin Ratio 2.2
[2018-10-01 16:21] LABS: Partial Thromboplastin Time 57.5 Seconds (21.0-31.0)
[2018-10-02 06:22] LABS: Basophils # (auto) 0.03 K/uL (0-0.2); Basophils % (auto) 0.2 %; Eosinophils # (auto) 0.05 K/uL (0-0.5); Eosinophils % (auto) 0.3 %; Hematocrit (blood only) 34.4 % (42-52); Hemoglobin 11.5 g/dL (14.0-18.0); Immature Granulocytes # (auto) 0.41 K/uL (0.00-0.02); Immature Granulocytes % (auto) 2.8 %; Lymphocytes % (auto) 17.2 %; Mean Corpuscular Hgb Conc 33.4 g/dL (32-36); Mean Corpuscular Volume 96.1 fL (80-100); Mean Platelet Volume 10.8 fL (7.4-10.4); Monocytes # (auto) 1.06 K/uL (0.11-0.59); Monocytes % (auto) 7.3 %; Neutrophils # (auto) 10.47 K/uL (1.4-6.5); Neutrophils % (auto) 72.2 %; Platelet Count 218 K/uL (130-400); RDW Coefficient of Variation 13.1 % (11.5-14.5); RDW Standard Deviation 45.9 fL (36.4-46.3); Red Blood Count 3.58 M/uL (4.7-6.1); White Blood Count 14.52 K/uL (4.8-10.8)
[2018-10-02] MEDS: LEVOTHYROXINE SODIUM 75 MCG TABLET PO SCH (06:35)
[2018-10-02 06:45] LABS: Partial Thromboplastin Ratio 2.7
[2018-10-02 06:47] LABS: Partial Thromboplastin Time 69.6 Seconds (21.0-31.0)
[2018-10-02 07:03] LABS: Albumin Level 2.4 gm/dl (3.4-5.0); BUN Creatinine Ratio 22.9 (10-20); Calcium 8.1 mg/dl (8.5-10.1); Creatinine Clr Calc Pharmacy 56.2 ml/min; Est GFR (African American) 69.3; Est GFR (Non-African American) 59.8; Potassium 3.7 mmol/L (3.5-5.1)
[2018-10-02] MEDS: ARFORMOTEROL TART 15MCG/2ML VIAL INH SCH ×2 (07:10→19:11)
[2018-10-02] MEDS: ALBUT/IPRATROP 3MG/0.5MG NEB 3 ML VIAL NEB SCH (07:10)
[2018-10-02 07:15] LABS: Albumin Globulin Ratio 0.8 (0.9-2); Bilirubin,Total 0.3 mg/dl (0.2-1); Globulin 2.9 gm/dl (2.5-4.0); Total Protein 5.3 gm/dl (6.4-8.2)
[2018-10-02] MEDS: CHOLECALCIFEROL 1,000 UNITS TAB PO SCH (07:34)
[2018-10-02] MEDS: ASCORBIC ACID 500 MG TAB PO SCH ×3 (07:35→20:35)
[2018-10-02] MEDS: predniSONE 20 MG TAB PO SCH (07:35)
[2018-10-02] MEDS: ESCITALOPRAM OXALATE 10 MG TAB PO SCH (07:35)
[2018-10-02] MEDS: CYANOCOBALAMIN 500 MCG TABLET (VITAMIN B-12) PO SCH (07:35)
[2018-10-02] MEDS: BENZONATATE 100 MG CAPSULE PO SCH ×3 (07:36→20:34)
[2018-10-02] MEDS: MAGNESIUM OXIDE 400 MG TAB PO SCH ×2 (07:36→20:32)
[2018-10-02] MEDS: FERROUS SULFATE 325 MG TAB PO SCH ×2 (07:37→20:32)
[2018-10-02] MEDS: INSULIN ASPART 100 UNITS/ML 3 ML PEN SC SCH ×4 (08:18→20:34)
[2018-10-02] MEDS: INSULIN GLARGINE SOLOSTAR 100 UNITS/ML 3 ML PEN SC SCH ×2 (08:23→20:32)
--- NOTE | 2018-10-02 08:28 | Cardiology Progress Note ---
Date of Service October 02, 2018 Assessment & Plan (1) Atrial fibrillation: Mr. Gibson is an 78yo M with a PMHx of Aflutter off anticoagulation 2/2 anemia, HTN, DM (last A1C 9.4 on 09/22/2018), COPD, and diastolic CHF who presented to the ED with one day of L sided chest pressure 6/10 in intensity with a 'heavy' quality which persisted for one day and who was found to be in 2: 1 aflutter with mildly increased troponins on admission. Chest Pain with mildly elevated troponins - Currently asymptomatic - Troponins .098, .676, .681 - Suspect 2/2 aflutter with RVR with demand ischemia - Initial ECG showed Aflutter with 2:1 block and RBBB. Aflutter with RVR with CHADS2-VASC 8.5% - On admit was initially tx with diltiazem 10mg x2 --> dilt gtt with conversion to amiodarone drip. Heart rate/rhythm was not well controlled while on amio drip and was converted back to diltiazem drip. His duration of flutter is also unknown, would not resume any rhythm control or cardioversion prior to M[place]ISON. - Had had his aflutter tx with diltiazem, metoprolol, and amiodarone in the past. Amio was stopped in 2015 while in [place]. Metoprolol was stopped in 2014 after he developed a unilateral truncal macular rash which resolved after stopping the medication, although no urticaria or pruritis was noted. - Anticoagulation with Apixaban/ASA was stopped in the setting of anemia with Hgb 6.8 requiring transfusion with negative Gi workup including EGD, colonoscopy and capsule endoscopy. Hgb has been stable >11 for the last year. - Last ECHO 05/2018: LVEF 55-60%, mod asymetrical LVH, grade I diastolic dysfunction, mild dynamic outflow obstruction - TSH 0.85, synthroid decreased by primary team - Continue heparin gtt - Heart rate 60's-80's on tele overnight on diltiazem drip. One episode of bradycardia to 37bpm, normalizing after titration down to 5mg/hr. In flutter with variable block overnight. Continue diltiazem gtt. - Clinically improved and feels well today, feels no heavyness in his chest and 85% back to his normal baseline. - No M[place]ISON/cardioversion today, planning both for tomorrow 10/03. NPO after midnight tonight. - May be an ablation candidate in the future, discussion pending seeing how he dose with medical tx. Would also be concerned about amiodarone use given his preexisting lung disease. Supervising Physician Co-Signing Physician Notes Agree with assessment and plan as outlined by Dr. Christie. Remains in Aflutter today, improved rate control with variable conduction. Remains asymptomatic. Plan to continue rate control with diltiazem, and anticoagulation with heparin infusion. Dr. Sorenson to do Aflutter ablation tomorrow. Subjective Mr gibson reports that he feels better today than yesterday. No chest pressure , chest pain, or heaviness at all in the last day. Reports his breathing feels better, improved from yesterday and about 85% his normal healthy baseline. Denies syncope, presyncope, palpitations, lightheadedness, dizziness, sweating overnight. On tele he was in flutter mostly 60-80's overnight, had one drop to 37bpm and did not notice any symptoms with this low HR. Eating breakfast this morning, no abdominal pain, no nausea/vomiting/diarrhea/constipation. No questions or concerns this AM. Review of Systems See HPI Physical Exam 2 Vital Signs (Past 24 Hours): Last Vital Signs Temp 36.6 C 10/02/18 07:05 Pulse 56 L 10/02/18 07:22 Resp 18 10/02/18 07:22 BP 102/63 10/02/18 07:05 Pulse Ox 98 10/02/18 07:22 Physical Exam: General: A&Ox3. NAD. Cooperative. HEENT: Atraumatic, normocephalic. Pulm: CTAB A&P. -wheezes, -rales, -rhonchi. Moderate air movement. Symmetrical chest rise. No increase work of breathing. No respiratory distress. Cardiac: RRR, -mrg. Radial pulses intact and symmetrical. No JVD. 1+ lower extremity edema to the mid calf bilaterally. Resident Activity Tracking Resident Involvement: Resident Care Provided Care Provided: [facility] Medicine _ (1) Atrial fibrillation Atrial fibrillation type: unspecified Qualified Code(s): I48.91 - Unspecified atrial fibrillation
[2018-10-02] MEDS ORDERED: ALBUT/IPRATROP 3MG/0.5MG NEB 3 ML VIAL NEB PRN (10:45)
--- NOTE | 2018-10-02 11:06 | Family Medicine Progress Note ---
Date of Service October 02, 2018 Assessment & Plan (1) Atrial flutter: Atrial fibrillation: 78yo M with a PMHx of Afib/Aflutter (not on any rate controlling med or anticoagulation), HTN, DM, COPD, and diastolic CHF presents with two days of L sided chest discomfort found to be in AF with mildly increased troponins on admission. 1) Afib/Aflutter with RVR -CHADS2-VASC 7.2% -cont dilt drip for rate control - HR was well controlled in 60-70s on tele overnight - H/o aflutter tx with diltiazem, metoprolol, and amiodarone in the past. Amio was stopped in 2015 while in NSR. Metoprolol was stopped in 2014 after he developed a unilateral truncal macular rash which resolved after stopping the medication - In past -- Anticoagulation with Apixaban/ASA was stopped in the setting of anemia with Hgb 6.8 requiring transfusion with negative GI workup including EGD , colonoscopy and capsule endoscopy. Hgb has been stable >11 for the last year. - Last ECHO 05/2018: LVEF 55-60%, mod asymetrical LVH, grade I diastolic dysfunction, mild dynamic outflow obstruction - TSH 0.185, synthroid reduced to 75 mcg/day - Continue heparin drip - Dr. Sorenson to do Aflutter ablation tomorrow 2) Chest Pain with elevated troponins - Currently asymptomatic - Troponins .098, .676, .681 - Suspect 2/ aflutter with RVR with demand ischemia vs. true ischemic event - ECG shows Aflutter with 2:1 block and RBBB. 3) DM II -Reports poor control lately as he has been on higher doses of steroids for COPD exacerbation. Last AIC=9.4 on 09/22/18 -Lantus 15u BID -ISS. Adjust as needed for target blood sugar 80 - 140 4) COPD -Stable. Lungs CTAB -Continue Duoneb PRN, Albuterol PRN -Continue Arformoterol -Tessalon Perles -Continue Prednisone 40mg po daily 5) Hypothyroidism: -TSH- 0.185 -Continue Synthroid 75 mcg 6) Anxiety -Cont Escitalopram FULL DVT Prophylaxis: Heparin Dispo: Tele. Ablation tomorrow. Supervising Physician Co-Signing Physician Notes Resident Physician Supervision Note: I independently interviewed and examined the patient and verified the pleitez history and physical, reviewed labs and image studies, discussed the case with the resident Dr. Cordova and agree with the findings and care plan. Subjective 78 y/o M found in bed this AM in NAD. Pt reports no CP, SOB, feelings of palpitations since admission. No issues voiding. Able to ambulate. Pt tolerating PO intake. Tele overnight showed rate in 60s-70s in flutter. Pt has no other acute concerns or complaints. Physical Exam 2 Vital Signs (Past 24 Hours): Last Vital Signs Temp 36.6 C 10/02/18 07:05 Pulse 56 L 10/02/18 07:22 Resp 18 10/02/18 07:22 BP 102/63 10/02/18 07:05 Pulse Ox 98 10/02/18 07:22 Constitutional: WD/WN, vitals as above Eyes: PERRL, conjunctivae normal, anicteric sclerae ENMT: external ear and nose normal, oropharynx normal Respiratory: normal respiratory effort, lungs clear to auscultation Cardiovascular: irregularly irregular Gastrointestinal (Abdomen): normal bowel sounds, soft, nontender, no hepatosplenomegaly Skin: no rashes, warm and dry Psychiatric: A+Ox3, euthymic affect Results & Data Laboratory Results Laboratory Results - last 24 hr 10/01/18 10/01/18 10/01/18 10:54 14:49 15:48 WBC RBC Hgb Hct MCV MCH MCHC RDW Std Deviation RDW Coeff of Ruddy Plt Count MPV Immature Gran % (Auto) Neut % (Auto) Lymph % (Auto) [place] % (Auto) Eos % (Auto) Baso % (Auto) Immature Gran # (Auto) Neut # (Auto) Lymph # (Auto) [place] # (Auto) Eos # (Auto) Baso # (Auto) APTT 57.5 H* PTT Ratio 2.2 Sodium Potassium Chloride Carbon Dioxide Anion Gap BUN Creatinine Est Cr Clr Drug Dosing Est GFR ( Amer) Est GFR (Non-Af Amer) BUN/Creatinine Ratio Glucose POC Glucose 110 H Calcium Total Bilirubin AST ALT Alkaline Phosphatase Troponin I 0.400 H* Total Protein Albumin Globulin Albumin/Globulin Ratio 10/01/18 10/01/18 10/02/18 16:13 20:28 05:58 WBC 14.52 H RBC 3.58 L Hgb 11.5 L Hct 34.4 L MCV 96.1 MCH 32.1 MCHC 33.4 RDW Std Deviation 45.9 RDW Coeff of Ruddy 13.1 Plt Count 218 MPV 10.8 H Immature Gran % (Auto) 2.8 Neut % (Auto) 72.2 Lymph % (Auto) 17.2 [place] % (Auto) 7.3 Eos % (Auto) 0.3 Baso % (Auto) 0.2 Immature Gran # (Auto) 0.41 H Neut # (Auto) 10.47 H Lymph # (Auto) 2.50 [place] # (Auto) 1.06 H Eos # (Auto) 0.05 Baso # (Auto) 0.03 APTT PTT Ratio Sodium Potassium Chloride Carbon Dioxide Anion Gap BUN Creatinine Est Cr Clr Drug Dosing Est GFR ( Amer) Est GFR (Non-Af Amer) BUN/Creatinine Ratio Glucose POC Glucose 283 H 186 H Calcium Total Bilirubin AST ALT Alkaline Phosphatase Troponin I Total Protein Albumin Globulin Albumin/Globulin Ratio 10/02/18 10/02/18 10/02/18 05:58 05:58 07:16 WBC RBC Hgb Hct MCV MCH MCHC RDW Std Deviation RDW Coeff of Ruddy Plt Count MPV Immature Gran % (Auto) Neut % (Auto) Lymph % (Auto) [place] % (Auto) Eos % (Auto) Baso % (Auto) Immature Gran # (Auto) Neut # (Auto) Lymph # (Auto) [place] # (Auto) Eos # (Auto) Baso # (Auto) APTT 69.6 H* PTT Ratio 2.7 Sodium 138 Potassium 3.7 Chloride 107 Carbon Dioxide 25 Anion Gap 6.0 BUN 26 H Creatinine 1.15 Est Cr Clr Drug Dosing 56.2 Est GFR ( Amer) 69.3 Est GFR (Non-Af Amer) 59.8 BUN/Creatinine Ratio 22.9 H Glucose 123 H POC Glucose 119 H Calcium 8.1 L Total Bilirubin 0.3 AST 12 L ALT 27 Alkaline Phosphatase 48 Troponin I Total Protein 5.3 L Albumin 2.4 L Globulin 2.9 Albumin/Globulin Ratio 0.8 L Medications Administered Current Inpatient Medications Albuterol (Ventolin Hfa) 2 puffs INH QID PRN PRN Reason: Shortness Of Breath Stop: 10/30/18 22:23 Albuterol (Duoneb) 3 ml NEB QIDR PRN PRN Reason: Shortness Of Breath Or Wheezing Stop: 10/30/18 22:44 Arformoterol Tartrate (Brovana Neb) 15 mcg INH BIDR [facility] Stop: 10/30/18 22:44 Last Admin: 10/02/18 07:10 Dose: 15 mcg Ascorbic Acid (Vitamin C) 500 mg PO TID [facility] Stop: 10/30/18 22:23 Last Admin: 10/02/18 07:35 Dose: 500 mg Benzonatate (Tessalon Perle) 100 mg PO TID [facility] Stop: 10/30/18 22:23 Last Admin: 10/02/18 07:36 Dose: 100 mg Cyanocobalamin (Vitamin B-12) 1,000 mcg PO DAILY [facility] Stop: 10/31/18 08:59 Last Admin: 10/02/18 07:35 Dose: 1,000 mcg Dextrose (Dextrose 50%) 25 - 50 ml IV UD PRN; Protocol PRN Reason: Hypoglycemia Protocol Stop: 10/30/18 22:23 Escitalopram Oxalate (Lexapro) 10 mg PO QAM [facility] Stop: 10/31/18 08:59 Last Admin: 10/02/18 07:35 Dose: 10 mg Ferrous Sulfate (Feosol) 325 mg PO BIDR [facility] Stop: 10/31/18 07:59 Last Admin: 10/02/18 07:37 Dose: 325 mg Glucagon (Glucagen) 1 mg SQ UD PRN; Protocol PRN Reason: Hypoglycemia Protocol Stop: 10/30/18 22:23 Glucose (Glucose 40%) 15 - 30 gm PO UD PRN; Protocol PRN Reason: Hypoglycemia Protocol Stop: 10/30/18 22:23 Glucose (Dex4 Glucose) 4 - 8 tabs PO UD PRN; Protocol PRN Reason: Hypoglycemia Protocol Stop: 10/30/18 22:23 Guaifenesin/Codeine Phosphate (Robitussin-Ac Sugar Free) 5 ml PO Q4H PRN PRN Reason: Cough Stop: 10/30/18 22:23 Diltiazem HCl 125 mg/ Dextrose 125 mls @ 5 mls/hr IV .Q24H [facility]; Protocol Stop: 10/31/18 13:29 Last Titration: 10/02/18 07:05 Dose: 5 mg/hr, 5 mls/hr Heparin Sodium/Dextrose (Heparin Sodium/Dextrose) 25,000 units in 500 mls @ 23 mls/hr IV .[id number] [facility]; Protocol Stop: 10/03/18 10:48 Insulin Aspart (Novolog Flexpen) 0 units SC ACHS [facility] Stop: 10/30/18 22:59 Last Admin: 10/02/18 08:18 Dose: 6 units Insulin Glargine (Lantus Solostar Pen) 15 units SC BID [facility] Stop: 10/30/18 22:59 Last Admin: 10/02/18 08:23 Dose: 15 units Levothyroxine Sodium (Synthroid) 75 mcg PO Q2D@0630 [facility] Stop: 11/01/18 06:29 Last Admin: 10/02/18 06:35 Dose: 75 mcg Magnesium Oxide (Mag-Ox) 400 mg PO BID [facility] Stop: 10/31/18 08:59 Last Admin: 10/02/18 07:36 Dose: 400 mg Miscellaneous (Order Awaiting Action) 1 ea N/A QS [facility] Stop: 10/30/18 22:44 Last Admin: 10/02/18 07:36 Dose: Not Given Miscellaneous (Carbohydrates For Hypoglycemia) 15 - 30 gm PO UD PRN PRN Reason: Hypoglycemia Treatment Stop: 10/30/18 22:23 Prednisone (Prednisone) 40 mg PO DAILY [facility] Stop: 10/31/18 08:59 Last Admin: 10/02/18 07:35 Dose: 40 mg Vitamin D (Vitamin D3) 2,000 units PO DAILY [facility] Stop: 10/31/18 08:59 Last Admin: 10/02/18 07:34 Dose: 2,000 units Resident Activity Tracking Resident Involvement: Resident Care Provided Care Provided: Adult Hospital Medicine
[2018-10-02] MEDS ORDERED: HEPARIN 25000 UNIT/500 ML D5W IV ONE (11:09)
[2018-10-02] MEDS: HEPARIN SODIUM/DEXTROSE 25,000 UNITS/500 ML BAG IV SCH (11:12)
[2018-10-02] MEDS: dilTIAZem HCl 125 MG in DEXTROSE 5% 100 ML IV SCH (17:23)
[2018-10-03] MEDS: ARFORMOTEROL TART 15MCG/2ML VIAL INH SCH ×2 (07:10→19:14)
[2018-10-03 07:16] LABS: Basophils # (auto) 0.02 K/uL (0-0.2); Basophils % (auto) 0.1 %; Eosinophils # (auto) 0.08 K/uL (0-0.5); Eosinophils % (auto) 0.6 %; Hematocrit (blood only) 34.1 % (42-52); Hemoglobin 11.3 g/dL (14.0-18.0); Immature Granulocytes # (auto) 0.52 K/uL (0.00-0.02); Immature Granulocytes % (auto) 3.7 %; Lymphocytes % (auto) 16.4 %; Mean Corpuscular Hgb Conc 33.1 g/dL (32-36); Mean Corpuscular Volume 96.6 fL (80-100); Mean Platelet Volume 10.9 fL (7.4-10.4); Monocytes # (auto) 1.21 K/uL (0.11-0.59); Monocytes % (auto) 8.6 %; Neutrophils # (auto) 9.93 K/uL (1.4-6.5); Neutrophils % (auto) 70.6 %; Platelet Count 203 K/uL (130-400); RDW Coefficient of Variation 13.3 % (11.5-14.5); RDW Standard Deviation 45.8 fL (36.4-46.3); Red Blood Count 3.53 M/uL (4.7-6.1); White Blood Count 14.06 K/uL (4.8-10.8)
[2018-10-03 07:35] LABS: Partial Thromboplastin Ratio 2.6
[2018-10-03 07:38] LABS: Partial Thromboplastin Time 66.5 Seconds (21.0-31.0)
[2018-10-03 07:52] LABS: BUN Creatinine Ratio 21.7 (10-20); Creatinine Clr Calc Pharmacy 59.9 ml/min; Est GFR (African American) 74.7; Est GFR (Non-African American) 64.5; Potassium 3.7 mmol/L (3.5-5.1)
--- NOTE | 2018-10-03 07:56 | Cardiology Progress Note ---
Date of Service October 03, 2018 Assessment & Plan (1) Atrial fibrillation: Mr. Gibson is an 78yo M with a PMHx of Aflutter off anticoagulation 2/2 anemia, HTN, DM (last A1C 9.4 on 09/22/2018), COPD, and diastolic CHF who presented to the ED with one day of L sided chest pressure 6/10 in intensity with a 'heavy' quality which persisted for one day and who was found to be in 2: 1 aflutter with mildly increased troponins on admission. Aflutter with RVR with CHADS2-VASC 8.5% (Converted spontaneously to NSR 10/03/18) - On admit was initially tx with diltiazem 10mg x2 --> dilt gtt with conversion to amiodarone drip. Heart rate/rhythm was not well controlled while on amio drip and was converted back to diltiazem drip with good rate control. - Had had his aflutter tx with diltiazem, metoprolol, and amiodarone in the past. Amio was stopped in 2015 while in nsr. Metoprolol was stopped in 2014 after he developed a unilateral truncal macular rash which resolved after stopping the medication, although no urticaria or pruritis was noted. - Anticoagulation with Apixaban/ASA was stopped in the setting of anemia with Hgb 6.8 requiring transfusion with negative GI workup including EGD, colonoscopy and capsule endoscopy. Hgb has been stable >11 for the last year. - Last ECHO 05/2018: LVEF 55-60%, mod asymetrical LVH, grade I diastolic dysfunction, mild dynamic outflow obstruction - TSH 0.85, synthroid decreased by primary team - Heart rate 60's-80's on tele overnight on diltiazem drip. Converted to nsr spontaneosly ~0500 this morning, dilt rate decreased to 0 and has maintained a rate of ~70-80bmp. Clinically asymptomatic with no chest pain or palpitations, breathing improved at 85-90% back to normal baseline per pt. - No role to MADISON given above - Underwent ablation therapy today. Recommend anticoagulation with Xarelto 20mg daily for one month then december d/c Chest Pain with mildly elevated troponins (Resolved) - Currently asymptomatic - Troponins .098, .676, .681 - Suspect 2/2 aflutter with RVR with demand ischemia - Initial ECG showed Aflutter with 2:1 block and RBBB. Subjective Per Tele: Spontaneously converted into normal sinus rhythm this morning ~0500. 50s-80s overnight, 60's on tele this morning. Slept poorly last night, is a little tired this morning. Denies any chest pain, chest pressure, palpitations, lightheadedness, dizziness , syncope, presyncope. Feels his shortness of breath continues to improve and is 85-90% back to his normal healthy baseline. Is not aware that his rhythm converted to nsr this morning, did not notice a change. Denies weakness, confusion, numbness, tingling, vision change, diplopia, visual flashers, hearing change. Has an appetite, but has not eating anything as was NPO in anticipation of MADISON/ cardioversion. Curious to what the plan is to prevent the rhythm from coming back, no other questions or concerns at this time. Review of Systems See HPI Physical Exam 2 Vital Signs (Past 24 Hours): Last Vital Signs Temp 35.4 C L 10/03/18 04:22 Pulse 83 10/03/18 07:49 Resp 18 10/03/18 07:49 BP 106/71 10/03/18 04:22 Pulse Ox 99 10/03/18 07:49 Physical Exam: General: A&Ox3. NAD. Cooperative. HEENT: Atraumatic, normocephalic. Pulm: CTAB A&P. -wheezes, -rales, -rhonchi. On CPAP at visit this morning. Moderate air movement. Symmetrical chest rise. No increase work of breathing. No respiratory distress. Cardiac: RRR, -mrg. Radial pulses intact and symmetrical. No JVD. 1+ lower extremity edema to the mid calf bilaterally. Neuro: Facial strength and sensation intact in all distributions and without asymmetry PERLAA, EoM intact, no nystagmus, acuity grossly intact Bicepts, Patellar DTR 1-2+ & symmetrical. No ankle clonus. Sensation to soft touch intact in fingertips and toes without deficit/asymmetry Finger flexion/extension/metal mixer, elbow flexion/extension, shoulder flexion/ extension, knee flexion/extension, ankle plantar/dorsiflexion intact with 5/5 strength and symmetrical. Results & Data Laboratory Results 10/03/18 10/03/18 10/03/18 Range/Units 07:32 06:28 06:28 WBC 14.06 H (4.8-10.8) K/uL RBC 3.53 L (4.7-6.1) M/uL Hgb 11.3 L (14.0-18.0) g/dL Hct 34.1 L (42-52) % MCV 96.6 (80-100) fL MCH 32.0 (25-34) pg MCHC 33.1 (32-36) g/dL RDW Std Deviation 45.8 (36.4-46.3) fL RDW Coeff of Ruddy 13.3 (11.5-14.5) % Plt Count 203 (130-400) K/uL MPV 10.9 H (7.4-10.4) fL Immature Gran % (Auto) 3.7 % Neut % (Auto) 70.6 % Lymph % (Auto) 16.4 % [place] % (Auto) 8.6 % Eos % (Auto) 0.6 % Baso % (Auto) 0.1 % Immature Gran # (Auto) 0.52 H (0.00-0.02) K/uL Neut # (Auto) 9.93 H (1.4-6.5) K/uL Lymph # (Auto) 2.30 (1.2-3.4) K/uL [place] # (Auto) 1.21 H (0.11-0.59) K/uL Eos # (Auto) 0.08 (0-0.5) K/uL Baso # (Auto) 0.02 (0-0.2) K/uL APTT (21.0-31.0) Seconds PTT Ratio Sodium 140 (136-145) mmol/L Potassium 3.7 (3.5-5.1) mmol/L Chloride 109 H (98-107) mmol/L Carbon Dioxide 26 (21-32) mmol/L Anion Gap 5.0 (3-11) BUN 23 H (7-18) mg/dl Creatinine 1.08 (0.6-1.4) mg/dl Est Cr Clr Drug Dosing 59.9 ml/min Est GFR ( Amer) 74.7 Est GFR (Non-Af Amer) 64.5 BUN/Creatinine Ratio 21.7 H (10-20) Glucose 73 (70-99) mg/dl POC Glucose 84 (70-99) Calcium 8.0 L (8.5-10.1) mg/dl 10/03/18 10/02/18 10/02/18 Range/Units 06:28 20:31 16:16 WBC (4.8-10.8) K/uL RBC (4.7-6.1) M/uL Hgb (14.0-18.0) g/dL Hct (42-52) % MCV (80-100) fL MCH (25-34) pg MCHC (32-36) g/dL RDW Std Deviation (36.4-46.3) fL RDW Coeff of Ruddy (11.5-14.5) % Plt Count (130-400) K/uL MPV (7.4-10.4) fL Immature Gran % (Auto) % Neut % (Auto) % Lymph % (Auto) % [place] % (Auto) % Eos % (Auto) % Baso % (Auto) % Immature Gran # (Auto) (0.00-0.02) K/uL Neut # (Auto) (1.4-6.5) K/uL Lymph # (Auto) (1.2-3.4) K/uL [place] # (Auto) (0.11-0.59) K/uL Eos # (Auto) (0-0.5) K/uL Baso # (Auto) (0-0.2) K/uL APTT 66.5 H* (21.0-31.0) Seconds PTT Ratio 2.6 Sodium (136-145) mmol/L Potassium (3.5-5.1) mmol/L Chloride (98-107) mmol/L Carbon Dioxide (21-32) mmol/L Anion Gap (3-11) BUN (7-18) mg/dl Creatinine (0.6-1.4) mg/dl Est Cr Clr Drug Dosing ml/min Est GFR ( Amer) Est GFR (Non-Af Amer) BUN/Creatinine Ratio (10-20) Glucose (70-99) mg/dl POC Glucose 206 H 250 H (70-99) Calcium (8.5-10.1) mg/dl 10/02/18 Range/Units 11:24 WBC (4.8-10.8) K/uL RBC (4.7-6.1) M/uL Hgb (14.0-18.0) g/dL Hct (42-52) % MCV (80-100) fL MCH (25-34) pg MCHC (32-36) g/dL RDW Std Deviation (36.4-46.3) fL RDW Coeff of Ruddy (11.5-14.5) % Plt Count (130-400) K/uL MPV (7.4-10.4) fL Immature Gran % (Auto) % Neut % (Auto) % Lymph % (Auto) % [place] % (Auto) % Eos % (Auto) % Baso % (Auto) % Immature Gran # (Auto) (0.00-0.02) K/uL Neut # (Auto) (1.4-6.5) K/uL Lymph # (Auto) (1.2-3.4) K/uL [place] # (Auto) (0.11-0.59) K/uL Eos # (Auto) (0-0.5) K/uL Baso # (Auto) (0-0.2) K/uL APTT (21.0-31.0) Seconds PTT Ratio Sodium (136-145) mmol/L Potassium (3.5-5.1) mmol/L Chloride (98-107) mmol/L Carbon Dioxide (21-32) mmol/L Anion Gap (3-11) BUN (7-18) mg/dl Creatinine (0.6-1.4) mg/dl Est Cr Clr Drug Dosing ml/min Est GFR ( Amer) Est GFR (Non-Af Amer) BUN/Creatinine Ratio (10-20) Glucose (70-99) mg/dl POC Glucose 255 H (70-99) Calcium (8.5-10.1) mg/dl Medications Administered Current Inpatient Medications Albuterol (Ventolin Hfa) 2 puffs INH QID PRN PRN Reason: Shortness Of Breath Stop: 10/30/18 22:23 Albuterol (Duoneb) 3 ml NEB QIDR PRN PRN Reason: Shortness Of Breath Or Wheezing Stop: 10/30/18 22:44 Arformoterol Tartrate (Brovana Neb) 15 mcg INH BIDR [facility] Stop: 10/30/18 22:44 Last Admin: 10/03/18 07:10 Dose: 15 mcg Ascorbic Acid (Vitamin C) 500 mg PO TID [facility] Stop: 10/30/18 22:23 Last Admin: 10/02/18 20:35 Dose: 500 mg Benzonatate (Tessalon Perle) 100 mg PO TID [facility] Stop: 10/30/18 22:23 Last Admin: 10/02/18 20:34 Dose: 100 mg Cyanocobalamin (Vitamin B-12) 1,000 mcg PO DAILY [facility] Stop: 10/31/18 08:59 Last Admin: 10/02/18 07:35 Dose: 1,000 mcg Dextrose (Dextrose 50%) 25 - 50 ml IV UD PRN; Protocol PRN Reason: Hypoglycemia Protocol Stop: 10/30/18 22:23 Escitalopram Oxalate (Lexapro) 10 mg PO QAM [facility] Stop: 10/31/18 08:59 Last Admin: 10/02/18 07:35 Dose: 10 mg Ferrous Sulfate (Feosol) 325 mg PO BIDR [facility] Stop: 10/31/18 07:59 Last Admin: 10/02/18 20:32 Dose: 325 mg Glucagon (Glucagen) 1 mg SQ UD PRN; Protocol PRN Reason: Hypoglycemia Protocol Stop: 10/30/18 22:23 Glucose (Glucose 40%) 15 - 30 gm PO UD PRN; Protocol PRN Reason: Hypoglycemia Protocol Stop: 10/30/18 22:23 Glucose (Dex4 Glucose) 4 - 8 tabs PO UD PRN; Protocol PRN Reason: Hypoglycemia Protocol Stop: 10/30/18 22:23 Guaifenesin/Codeine Phosphate (Robitussin-Ac Sugar Free) 5 ml PO Q4H PRN PRN Reason: Cough Stop: 10/30/18 22:23 Diltiazem HCl 125 mg/ Dextrose 125 mls @ 0 mls/hr IV .Q0M [facility]; Protocol Stop: 10/31/18 13:29 Last Titration: 10/03/18 07:16 Dose: 0 mls/hr Heparin Sodium/Dextrose (Heparin Sodium/Dextrose) 25,000 units in 500 mls @ 23 mls/hr IV .[id number] [facility]; Protocol Stop: 10/03/18 10:48 Last Titration: 10/03/18 07:16 Dose: 23 mls/hr Insulin Aspart (Novolog Flexpen) 0 units SC ACHS [facility] Stop: 10/30/18 22:59 Last Admin: 10/02/18 20:34 Dose: 5 units Insulin Glargine (Lantus Solostar Pen) 15 units SC BID [facility] Stop: 10/30/18 22:59 Last Admin: 10/02/18 20:32 Dose: 15 units Levothyroxine Sodium (Synthroid) 75 mcg PO Q2D@0630 [facility] Stop: 11/01/18 06:29 Last Admin: 10/02/18 06:35 Dose: 75 mcg Magnesium Oxide (Mag-Ox) 400 mg PO BID [facility] Stop: 10/31/18 08:59 Last Admin: 10/02/18 20:32 Dose: 400 mg Miscellaneous (Order Awaiting Action) 1 ea N/A QS [facility] Stop: 10/30/18 22:44 Last Admin: 10/02/18 23:46 Dose: Not Given Miscellaneous (Carbohydrates For Hypoglycemia) 15 - 30 gm PO UD PRN PRN Reason: Hypoglycemia Treatment Stop: 10/30/18 22:23 Prednisone (Prednisone) 40 mg PO DAILY [facility] Stop: 10/31/18 08:59 Last Admin: 10/02/18 07:35 Dose: 40 mg Vitamin D (Vitamin D3) 2,000 units PO DAILY [facility] Stop: 10/31/18 08:59 Last Admin: 10/02/18 07:34 Dose: 2,000 units Resident Activity Tracking Resident Involvement: Resident Care Provided Care Provided: [facility] Medicine _ (1) Atrial fibrillation Atrial fibrillation type: unspecified Qualified Code(s): I48.91 - Unspecified atrial fibrillation
--- NOTE | 2018-10-03 08:57 | Pre Anesthesia Assessment ---
Date of Service October 03, 2018 Pre Sedation Assessment Vital Signs Temp Pulse Pulse Resp BP Pulse Ox 10/03/18 08:20 36.3 C L 69 18 127/74 99 10/03/18 07:49 83 18 99 10/03/18 04:22 35.4 C L 83 18 106/71 99 10/03/18 00:15 36.8 C 83 18 103/54 L 99 10/02/18 19:23 36.4 C L 74 18 127/76 98 10/02/18 19:12 81 14 96 10/02/18 16:52 80 10/02/18 15:20 36.4 C L 85 18 110/68 97 10/02/18 11:47 36.3 C L 74 18 108/65 96 Cardiovascular + tachycardic Respiratory + respiratory effort normal Pre-Sedation Airway Assessment Smoking Status: Former smoker Hx Sleep Apnea: No Hx Difficult Intubation: No Short, Thick Neck: No Thyromental Distance: > or= 3.5 Finger Breadths Oral Cavity: + WNL Mallampati Class: III ASA: ASA3 Procedure Planning Contraindications for Sedation: none Current Medications Reviewed: Yes Notes The planned sedation has been discussed with the patient. Informed Consent was obtained. I have identified the patient, determined the appropriateness of sedation and have assessed the patient immediately prior to the procedure. All medicine(s) and interventions are by my order.
[2018-10-03] MEDS ORDERED: LIDOCAINE HCL 1% 20 ML VIAL ONE (09:03)
[2018-10-03] MEDS ORDERED: fentaNYL citrate 100 MCG/2 ML VIAL ONE ×2 (09:21→10:32)
[2018-10-03] MEDS ORDERED: MIDAZOLAM HCL 5 MG/ML 1 ML VIAL ONE ×2 (09:22→10:32)
[2018-10-03] MEDS ORDERED: HEPARIN SOD (PORCINE) 1000 UNIT/ML 10 ML VIAL ONE (09:41)
[2018-10-03] MEDS ORDERED: ACETAMINOPHEN 325 MG TAB PO PRN (11:10)
--- NOTE | 2018-10-03 11:14 | Post Operative Brief Note ---
Cardiology Brief Post Op Date of Surgery October 03, 2018 Pre & Post Diagnosis Operation Date: 10/03/18 10:00 <No data on this case meets the specified criteria> Procedure Complete electrophysiologic testing. Arrhythmia induction with burst atrial pacing Ablation of typical right atrial flutter producing bidirectional block through the caval tricuspid isthmus Vessel Operator Artis Sorenson MD Auditing Manager None Estimated Blood Loss 10 Findings Consistent with Post-Op Diagnosis Complications none Disposition Accompanied Patient To Recovery: No Disposition: PCU Overlapping Procedure I was immediately available: during the entire case.
[2018-10-03] MEDS: INSULIN ASPART 100 UNITS/ML 3 ML PEN SC SCH ×4 (11:59→20:37)
--- NOTE | 2018-10-03 12:42 | Pre Anesthesia Assessment ---
Date of Service October 03, 2018 Pre Sedation Assessment Vital Signs Temp Pulse Pulse Resp BP Pulse Ox 10/03/18 08:20 36.3 C L 69 18 127/74 99 10/03/18 08:00 60 10/03/18 07:49 83 18 99 10/03/18 04:22 35.4 C L 83 18 106/71 99 10/03/18 00:15 36.8 C 83 18 103/54 L 99 10/02/18 19:23 36.4 C L 74 18 127/76 98 10/02/18 19:12 81 14 96 10/02/18 16:52 80 10/02/18 15:20 36.4 C L 85 18 110/68 97 Cardiovascular + regular rate Respiratory + respiratory effort normal Pre-Sedation Airway Assessment Smoking Status: Former smoker Hx Sleep Apnea: No Hx Difficult Intubation: No Short, Thick Neck: No Thyromental Distance: > or= 3.5 Finger Breadths Oral Cavity: + WNL Mallampati Class: III ASA: ASA3 Procedure Planning Contraindications for Sedation: none Current Medications Reviewed: Yes Notes The planned sedation has been discussed with the patient. Informed Consent was obtained. I have identified the patient, determined the appropriateness of sedation and have assessed the patient immediately prior to the procedure. All medicine(s) and interventions are by my order.
[2018-10-03] MEDS: INSULIN GLARGINE SOLOSTAR 100 UNITS/ML 3 ML PEN SC SCH ×2 (13:15→20:36)
[2018-10-03] MEDS: HEPARIN SODIUM/DEXTROSE 25,000 UNITS/500 ML BAG IV SCH (13:16)
--- NOTE | 2018-10-03 14:14 | Family Medicine Progress Note ---
Date of Service October 03, 2018 Assessment & Plan (1) Atrial flutter: 78yo M with a PMHx of Afib/Aflutter (not on any rate controlling med or anticoagulation), HTN, DM, COPD, and diastolic CHF presents with two days of L sided chest discomfort found to be in AF with mildly increased troponins on admission. 1) Afib/Aflutter with RVR - - Underwent ablation therapy today 10/03/[address] Sorenson -CHADS2-VASC 7.2% - H/o aflutter tx with diltiazem, metoprolol, and amiodarone in the past. Amio was stopped in 2015 while in NSR. Metoprolol was stopped in 2014 after he developed a unilateral truncal macular rash which resolved after stopping the medication - In past -- Anticoagulation with Apixaban/ASA was stopped in the setting of anemia with Hgb 6.8 requiring transfusion with negative GI workup including EGD , colonoscopy and capsule endoscopy. Hgb has been stable >11 for the last year. - Last ECHO 05/2018: LVEF 55-60%, mod asymetrical LVH, grade I diastolic dysfunction, mild dynamic outflow obstruction - TSH 0.185, synthroid reduced to 75 mcg/day -Converted to NSR this morning, dilt gtt d/c -Heparin d/c. Anticoagulation with Xarelto 20mg daily for one month then december d/c -plan for d/c tomorrow 2) Chest Pain with elevated troponins - Currently asymptomatic - Troponins .098, .676, .681 - Suspect 2/2 aflutter with RVR with demand ischemia vs. true ischemic event - ECG showed Aflutter with 2:1 block and RBBB. Now NSR 3) DM II -Reports poor control lately as he has been on higher doses of steroids for COPD exacerbation. Last AIC=9.4 on 09/22/18 -Lantus 15u BID -ISS. Adjust as needed for target blood sugar 80 - 140 4) COPD -Stable. Lungs CTAB -Continue Duoneb PRN, Albuterol PRN -Continue Arformoterol -Tessalon Perles -Continue Prednisone 40mg po daily 5) Hypothyroidism: -TSH- 0.185 -Continue Synthroid 75 mcg 6) Anxiety -Cont Escitalopram FULL DVT Prophylaxis: xarelto Dispo: Tele. Home tomorrow Supervising Physician Co-Signing Physician Notes Resident Physician Supervision Note: I independently interviewed and examined the patient and verified the pleitez history and physical, reviewed labs and image studies, discussed the case with the resident Dr. Cordova and agree with the findings and care plan. Subjective 78 y/o M found in bed this AM in NAD. No acute overnight events. Per tele, broke out of a flutter into nsr around 5 am. Pt reports no CP, SOB, feelings of palpitations since admission. No issues voiding. Able to ambulate. Pt tolerating PO intake. Pt has no other acute concerns or complaints. Physical Exam 2 Vital Signs (Past 24 Hours): Last Vital Signs Temp 36.3 C L 10/03/18 08:20 Pulse 68 10/03/18 13:25 Resp 18 10/03/18 13:25 BP 118/65 10/03/18 13:25 Pulse Ox 96 10/03/18 13:25 Constitutional: WD/WN, vitals as above Eyes: PERRL, conjunctivae normal, anicteric sclerae ENMT: external ear and nose normal, oropharynx normal Respiratory: normal respiratory effort, lungs clear to auscultation Cardiovascular: RRR, no murmur, no edema Gastrointestinal (Abdomen): normal bowel sounds, soft, nontender, no hepatosplenomegaly Skin: no rashes, warm and dry Psychiatric: A+Ox3, euthymic affect Results & Data Laboratory Results Laboratory Results - last 24 hr 10/02/18 10/02/18 10/03/18 16:16 20:31 06:28 WBC RBC Hgb Hct MCV MCH MCHC RDW Std Deviation RDW Coeff of Ruddy Plt Count MPV Immature Gran % (Auto) Neut % (Auto) Lymph % (Auto) Rooks % (Auto) Eos % (Auto) Baso % (Auto) Immature Gran # (Auto) Neut # (Auto) Lymph # (Auto) Rooks # (Auto) Eos # (Auto) Baso # (Auto) APTT 66.5 H* PTT Ratio 2.6 Sodium Potassium Chloride Carbon Dioxide Anion Gap BUN Creatinine Est Cr Clr Drug Dosing Est GFR ( Amer) Est GFR (Non-Af Amer) BUN/Creatinine Ratio Glucose POC Glucose 250 H 206 H Calcium 10/03/18 10/03/18 10/03/18 06:28 06:28 07:32 WBC 14.06 H RBC 3.53 L Hgb 11.3 L Hct 34.1 L MCV 96.6 MCH 32.0 MCHC 33.1 RDW Std Deviation 45.8 RDW Coeff of Ruddy 13.3 Plt Count 203 MPV 10.9 H Immature Gran % (Auto) 3.7 Neut % (Auto) 70.6 Lymph % (Auto) 16.4 Rooks % (Auto) 8.6 Eos % (Auto) 0.6 Baso % (Auto) 0.1 Immature Gran # (Auto) 0.52 H Neut # (Auto) 9.93 H Lymph # (Auto) 2.30 Rooks # (Auto) 1.21 H Eos # (Auto) 0.08 Baso # (Auto) 0.02 APTT PTT Ratio Sodium 140 Potassium 3.7 Chloride 109 H Carbon Dioxide 26 Anion Gap 5.0 BUN 23 H Creatinine 1.08 Est Cr Clr Drug Dosing 59.9 Est GFR ( Amer) 74.7 Est GFR (Non-Af Amer) 64.5 BUN/Creatinine Ratio 21.7 H Glucose 73 POC Glucose 84 Calcium 8.0 L 10/03/18 12:51 WBC RBC Hgb Hct MCV MCH MCHC RDW Std Deviation RDW Coeff of Ruddy Plt Count MPV Immature Gran % (Auto) Neut % (Auto) Lymph % (Auto) Rooks % (Auto) Eos % (Auto) Baso % (Auto) Immature Gran # (Auto) Neut # (Auto) Lymph # (Auto) Rooks # (Auto) Eos # (Auto) Baso # (Auto) APTT PTT Ratio Sodium Potassium Chloride Carbon Dioxide Anion Gap BUN Creatinine Est Cr Clr Drug Dosing Est GFR ( Amer) Est GFR (Non-Af Amer) BUN/Creatinine Ratio Glucose POC Glucose 94 Calcium Medications Administered Current Inpatient Medications Acetaminophen (Tylenol) 650 mg PO Q4H PRN PRN Reason: Pain Stop: 11/02/18 11:09 Albuterol (Ventolin Hfa) 2 puffs INH QID PRN PRN Reason: Shortness Of Breath Stop: 10/30/18 22:23 Albuterol (Duoneb) 3 ml NEB QIDR PRN PRN Reason: Shortness Of Breath Or Wheezing Stop: 10/30/18 22:44 Arformoterol Tartrate (Brovana Neb) 15 mcg INH BIDR MIQUEL Stop: 10/30/18 22:44 Last Admin: 10/03/18 07:10 Dose: 15 mcg Ascorbic Acid (Vitamin C) 500 mg PO TID MIQUEL Stop: 10/30/18 22:23 Last Admin: 10/02/18 20:35 Dose: 500 mg Benzonatate (Tessalon Perle) 100 mg PO TID PENDING SALE TO [facility] Stop: 10/30/18 22:23 Last Admin: 10/02/18 20:34 Dose: 100 mg Cyanocobalamin (Vitamin B-12) 1,000 mcg PO DAILY MIQUEL Stop: 10/31/18 08:59 Last Admin: 10/02/18 07:35 Dose: 1,000 mcg Dextrose (Dextrose 50%) 25 - 50 ml IV UD PRN; Protocol PRN Reason: Hypoglycemia Protocol Stop: 10/30/18 22:23 Escitalopram Oxalate (Lexapro) 10 mg PO QAM MIQUEL Stop: 10/31/18 08:59 Last Admin: 10/02/18 07:35 Dose: 10 mg Ferrous Sulfate (Feosol) 325 mg PO BIDR [facility]ENDING S[facility] TO [facility] Stop: 10/31/18 07:59 Last Admin: 10/02/18 20:32 Dose: 325 mg Glucagon (Glucagen) 1 mg SQ UD PRN; Protocol PRN Reason: Hypoglycemia Protocol Stop: 10/30/18 22:23 Glucose (Glucose 40%) 15 - 30 gm PO UD PRN; Protocol PRN Reason: Hypoglycemia Protocol Stop: 10/30/18 22:23 Glucose (Dex4 Glucose) 4 - 8 tabs PO UD PRN; Protocol PRN Reason: Hypoglycemia Protocol Stop: 10/30/18 22:23 Guaifenesin/Codeine Phosphate (Robitussin-Ac Sugar Free) 5 ml PO Q4H PRN PRN Reason: Cough Stop: 10/30/18 22:23 Insulin Aspart (Novolog Flexpen) 0 units SC ACHS [facility]END[facility] S[facility] TO [facility] Stop: 10/30/18 22:59 Last Admin: 10/03/18 13:16 Dose: Not Given Insulin Glargine (Lantus Solostar Pen) 15 units SC BID PENDING SALE TO [facility] Stop: 10/30/18 22:59 Last Admin: 10/03/18 13:15 Dose: Not Given Levothyroxine Sodium (Synthroid) 75 mcg PO Q2D@0630 PENDING SALE TO [facility] Stop: 11/01/18 06:29 Last Admin: 10/02/18 06:35 Dose: 75 mcg Magnesium Oxide (Mag-Ox) 400 mg PO BID MIQUEL Stop: 10/31/18 08:59 Last Admin: 10/02/18 20:32 Dose: 400 mg Miscellaneous (Order Awaiting Action) 1 ea N/A QS PEND[facility] S[facility] TO [facility] Stop: 10/30/18 22:44 Last Admin: 10/02/18 23:46 Dose: Not Given Miscellaneous (Carbohydrates For Hypoglycemia) 15 - 30 gm PO UD PRN PRN Reason: Hypoglycemia Treatment Stop: 10/30/18 22:23 Prednisone (Prednisone) 40 mg PO DAILY MIQUEL Stop: 10/31/18 08:59 Last Admin: 10/02/18 07:35 Dose: 40 mg Rivaroxaban (Xarelto) 20 mg PO QPM PENDING SALE TO [facility] Stop: 11/02/18 20:59 Vitamin D (Vitamin D3) 2,000 units PO DAILY MIQUEL Stop: 10/31/18 08:59 Last Admin: 10/02/18 07:34 Dose: 2,000 units Resident Activity Tracking Resident Involvement: Resident Care Provided Care Provided: Adult Hospital Medicine
[2018-10-03] MEDS: BENZONATATE 100 MG CAPSULE PO SCH ×3 (15:09→20:36)
[2018-10-03] MEDS: CHOLECALCIFEROL 1,000 UNITS TAB PO SCH (15:11)
[2018-10-03] MEDS: MAGNESIUM OXIDE 400 MG TAB PO SCH ×2 (15:11→20:36)
[2018-10-03] MEDS: FERROUS SULFATE 325 MG TAB PO SCH ×2 (15:11→20:35)
[2018-10-03] MEDS: CYANOCOBALAMIN 500 MCG TABLET (VITAMIN B-12) PO SCH (15:12)
[2018-10-03] MEDS: ASCORBIC ACID 500 MG TAB PO SCH ×3 (15:12→20:36)
[2018-10-03] MEDS: predniSONE 20 MG TAB PO SCH (15:12)
[2018-10-03] MEDS: ESCITALOPRAM OXALATE 10 MG TAB PO SCH (15:12)
--- NOTE | 2018-10-03 16:10 | Cardiology Progress Note ---
Date of Service October 03, 2018 Assessment & Plan (1) Atrial fibrillation: Patient underwent an ablation for right atrial flutter today. He had converted to a sinus rhythm prior to the procedure. A standard ablation for isthmus dependent right atrial flutter was performed with production of bidirectional block through the caval tricuspid isthmus. There were no immediate complications. Subsequent to the procedure the patient did have forceful coughing episode and developed some bleeding at the access site. Currently there is no evidence of hematoma or bleeding. He will remain flat with right leg straight for an extended period of time. If there is no additional bleeding the patient is ambulatory I would agree with discharge tomorrow. The patient will be started on Xarelto tonight if there is no evidence of bleeding at that time. He should continue on Xarelto 20 milligrams every evening for period of 3-4 weeks. He should follow-up in the Cardiology Clinic around that time for discussion regarding the need for any ongoing anticoagulation. He does not need to be discharged on any rate- controlling medication. He should refrain from heavy lifting more than 10 pounds for strenuous activity for period of 5-7 days. Otherwise no restrictions. Subjective The patient is feeling well this morning. He states that his breathing was stable and in no sense of palpitation. He was ambulatory around his room. Physical Exam 2 Vital Signs (Past 24 Hours): Last Vital Signs Temp 36.3 C L 10/03/18 15:05 Pulse 70 10/03/18 15:05 Resp 18 10/03/18 15:05 BP 121/71 10/03/18 15:05 Pulse Ox 94 10/03/18 15:05 Physical Exam: The right groin site is free of bleeding. There is no evidence of hematoma. _ (1) Atrial fibrillation Atrial fibrillation type: unspecified Qualified Code(s): I48.91 - Unspecified atrial fibrillation
--- NOTE | 2018-10-03 20:46 | Procedure Note ---
Procedure Note Date of Service October 03, 2018
[2018-10-03] MEDS ORDERED: RIVAROXABAN 20 MG TAB PO SCH (21:00)
[2018-10-04 05:44] LABS: Basophils # (auto) 0.01 K/uL (0-0.2); Basophils % (auto) 0.1 %; Hematocrit (blood only) 34.6 % (42-52); Hemoglobin 11.3 g/dL (14.0-18.0); Immature Granulocytes # (auto) 0.24 K/uL (0.00-0.02); Immature Granulocytes % (auto) 1.8 %; Lymphocytes # (auto) 0.76 K/uL (1.2-3.4); Lymphocytes % (auto) 5.6 %; Mean Corpuscular Hgb Conc 32.7 g/dL (32-36); Mean Corpuscular Volume 96.9 fL (80-100); Mean Platelet Volume 10.5 fL (7.4-10.4); Monocytes # (auto) 0.82 K/uL (0.11-0.59); Monocytes % (auto) 6.1 %; Neutrophils # (auto) 11.64 K/uL (1.4-6.5); Neutrophils % (auto) 86.4 %; Platelet Count 198 K/uL (130-400); RDW Coefficient of Variation 13.6 % (11.5-14.5); RDW Standard Deviation 48.2 fL (36.4-46.3); Red Blood Count 3.57 M/uL (4.7-6.1); White Blood Count 13.47 K/uL (4.8-10.8)
[2018-10-04] MEDS: LEVOTHYROXINE SODIUM 75 MCG TABLET PO SCH (06:22)
[2018-10-04 06:24] LABS: Albumin Globulin Ratio 0.8 (0.9-2); Albumin Level 2.5 gm/dl (3.4-5.0); Bilirubin,Total 0.4 mg/dl (0.2-1); Calcium 8.1 mg/dl (8.5-10.1); Creatinine Clr Calc Pharmacy 49.7 ml/min; Est GFR (African American) 59.7; Est GFR (Non-African American) 51.5; Potassium 4.8 mmol/L (3.5-5.1); Total Protein 5.5 gm/dl (6.4-8.2)
[2018-10-04] MEDS: ARFORMOTEROL TART 15MCG/2ML VIAL INH SCH (07:07)
[2018-10-04] MEDS: ASCORBIC ACID 500 MG TAB PO SCH (07:58)
[2018-10-04] MEDS: FERROUS SULFATE 325 MG TAB PO SCH (07:58)
[2018-10-04] MEDS: MAGNESIUM OXIDE 400 MG TAB PO SCH (07:59)
[2018-10-04] MEDS: INSULIN ASPART 100 UNITS/ML 3 ML PEN SC SCH ×2 (08:00→12:15)
[2018-10-04] MEDS: INSULIN GLARGINE SOLOSTAR 100 UNITS/ML 3 ML PEN SC SCH (08:01)
[2018-10-04] MEDS: BENZONATATE 100 MG CAPSULE PO SCH (08:02)
[2018-10-04] MEDS: predniSONE 20 MG TAB PO SCH (08:36)
[2018-10-04] MEDS: CHOLECALCIFEROL 1,000 UNITS TAB PO SCH (08:37)
[2018-10-04] MEDS: ESCITALOPRAM OXALATE 10 MG TAB PO SCH (08:37)
[2018-10-04] MEDS: CYANOCOBALAMIN 500 MCG TABLET (VITAMIN B-12) PO SCH (08:37)
--- NOTE | 2018-10-04 09:49 | Cardiology Progress Note ---
Date of Service October 04, 2018 Assessment & Plan (1) Atrial fibrillation: Mr. Gibson is an 78yo M with a PMHx of Aflutter off anticoagulation 2/2 anemia, HTN, DM (last A1C 9.4 on 09/22/2018), COPD, and diastolic CHF who presented to the ED with one day of L sided chest pressure 6/10 in intensity with a 'heavy' quality which persisted for one day and who was found to be in 2: 1 aflutter with mildly increased troponins on admission. Aflutter with RVR with CHADS2-VASC 8.5% (Converted spontaneously to NSR 10/03/18) - On admit was initially tx with diltiazem 10mg x2 --> dilt gtt with conversion to amiodarone drip. Heart rate/rhythm was not well controlled while on amio drip and was converted back to diltiazem drip with good rate control. - Had had his aflutter tx with diltiazem, metoprolol, and amiodarone in the past. Amio was stopped in 2015 while in nsr. Metoprolol was stopped in 2014 after he developed a unilateral truncal macular rash which resolved after stopping the medication, although no urticaria or pruritis was noted. - Anticoagulation with Apixaban/ASA was stopped in the setting of anemia with Hgb 6.8 requiring transfusion with negative GI workup including EGD, colonoscopy and capsule endoscopy. Hgb has been stable >11 for the last year. - Last ECHO 05/2018: LVEF 55-60%, mod asymetrical LVH, grade I diastolic dysfunction, mild dynamic outflow obstruction - TSH 0.85, synthroid decreased by primary team - Heart rate 70's-80's on tele overnight in nsr. S/p ablation therapy. Continue Xarelto 20mg qHS for 3-4 weeks, followup with cardiology clinic in 3-4 weeks. Does not need rate or rhythm control agents on d/c. Chest Pain with mildly elevated troponins (Resolved) - Currently asymptomatic - Troponins .098, .676, .681 - Suspect 2/2 aflutter with RVR with demand ischemia - Initial ECG showed Aflutter with 2:1 block and RBBB. Subjective Mr. Gibson feels well today. Reports he feels >90% back to normal. No chest pain, chest pressure, difficulty breathing, shortness of breath, palpitations, syncope, presyncope, nausea, vomiting, diarrhea, constipation, nosebleed, brusing, melena, BRBPR, rash, skin changes, vision changes. He has a good appetite and is eating well this morning. No questions or concerns. Review of Systems See HPI Physical Exam 2 Vital Signs (Past 24 Hours): Last Vital Signs Temp 36.4 C L 10/04/18 08:00 Pulse 74 10/04/18 08:00 Resp 18 10/04/18 08:00 BP 132/74 10/04/18 08:00 Pulse Ox 99 10/04/18 08:00 Physical Exam: General: A&Ox3. NAD. Cooperative. HEENT: Atraumatic, normocephalic. Pulm: CTAB A&P. -wheezes, -rales, -rhonchi. On CPAP at visit this morning. Moderate air movement. Symmetrical chest rise. No increase work of breathing. No respiratory distress. Cardiac: RRR, -mrg. Radial pulses intact and symmetrical. No JVD. trace lower extremity edema to the jones. Resident Activity Tracking Resident Involvement: Resident Care Provided Care Provided: [facility] _ (1) Atrial fibrillation Atrial fibrillation type: unspecified Qualified Code(s): I48.91 - Unspecified atrial fibrillation
--- NOTE | 2018-10-04 11:14 | Discharge Summary ---
Date of Service October 04, 2018 Admission HPI Per Admitting Provider Mr. Gibson is as pleasant 78yo male with history of AF, HTN, HLP, DM, COPD, GERD, diastolic CHF presenting with left sided chest discomfort. Pain started AM around 06:00 - left sided with radiation down the left arm. Described as pressure, 6/10 in severity. Pain lasted all day yesterday and into the morning today. Also with nausea and vomiting. Denies diaphoresis. Denies syncope. Patient states that pain resolved when he arrived to the ER. Also reports that blood sugars at home have been 350-400 since his discharge from the hospital. He was treated inpatient with Prednisone 50mg po daily for a COPD exacerbation and discharged home on Prednisone 40mg po daily. No additional complaints. On arrival to the ER he was found to be tachycardic at 157 BPM with relative hypotension 90/54. EKG suggestive of atrial flutter. He was administered Diltiazem 10mg IV x 2 doses and started on a Diltiazem gtt with minimal improvement in HR. When I saw him his HR was 158, SPB 89. Patient asymptomatic with no complaints. No CP at present. ER Courese: Diltiazem 10mg IV x 2, then gtt, Insulin 4u, NSS x 1500mL Principal Diagnosis a flutter Discharge Exam Constitutional WD/WN, vitals as above Eyes PERRL, conjunctivae normal, anicteric sclerae ENMT external ear and nose normal, oropharynx normal Respiratory normal respiratory effort, lungs clear to auscultation Cardiovascular RRR, no murmur, no edema Gastrointestinal (Abdomen) normal bowel sounds, soft, nontender, no hepatosplenomegaly Skin no rashes, warm and dry Psychiatric A+Ox3, euthymic affect Discharge Data Allergies Allergy/AdvReac Type Severity Reaction Status Date / Time Quinolones Allergy Severe ANAPHYLAXIS Verified 09/30/18 22:45 formoterol Allergy Intermediate RASH Verified 09/30/18 22:45 metoprolol Allergy Intermediate RASH Verified 09/30/18 22:45 Sulfa (Sulfonamide Allergy Intermediate severe red Verified 09/30/18 22:45 Antibiotics) rash moxifloxacin Allergy Unknown throat Verified 09/30/18 22:45 swelling ofloxacin Allergy Unknown SWELLING Verified 09/30/18 22:45 AROUND FACE Consultations 09/30/18 20:31 ED Decision to Admit Stat 09/30/18 22:24 Consult Cardiology Routine Procedures Performed Operation Date: 10/03/18 10:00 Actual Procedures p EPS + Ablation for SVT Flutter(Not Applicable) - Howard Sorenson MD s LA Pacing (Add-On) - Howard Sorenson MD s 3D Mapping (Carto) - Howard Sorenson MD Ordered Studies 09/30/18 18:58 CT angio chest PE protocol Stat Hospital Course (1) Atrial flutter: 78yo M with a PMHx of Afib/Aflutter (not on any rate controlling med or anticoagulation), HTN, DM, COPD, and diastolic CHF presented to [facility] on 10/01 with two days of L sided chest discomfort with left arm radiation. Also reported that blood sugars at home have been 350-400 since his discharge from the hospital recentley prior, was treated inpatient with Prednisone 50mg po daily for a COPD exacerbation and discharged home on Prednisone 40mg po daily. On arrival to the ER he was found to be tachycardic at 157 BPM with relative hypotension 90/54. EKG showed Aflutter with 2:1 block and RBBB. He was administered Diltiazem 10mg IV x 2 doses and started on a Diltiazem gtt with minimal improvement in HR. Also found to have mildly increased troponins on admission. Pt has a h/o aflutter tx with diltiazem, metoprolol, and amiodarone in the past. Amio was stopped in 2015 while in NSR. Metoprolol was stopped in 2014 after he developed a unilateral truncal macular rash which resolved after stopping the medication. Additionally in past, anticoagulation with Apixaban/ ASA was stopped in the setting of anemia with Hgb 6.8 requiring transfusion with negative GI workup including EGD, colonoscopy and capsule endoscopy. Hgb has been stable >11 for the last year and was stable here. Last ECHO 05/2018: LVEF 55-60%, mod asymetrical LVH, grade I diastolic dysfunction, mild dynamic outflow obstruction. The following is the medical management during pt's stay here. For pt's ?Afib/Aflutter with RVR , a CHADS2-VASC 7.2% was calculated. Dilt drip for rate control was continued and pt was not rate controlled for 1-2 days, and eventually an ablation was done 10/[address] Sorenson. Pt has been in NSR since. For pt's elevated troponins, chest pain was resolved/asymptomatic after arrival into ER. Troponins were as followed: .098, .676, .681. We suspected this was 2/ 2 aflutter with RVR with demand ischemia. TSH here was 0.185, and synthroid was reduced to 75 mcg/day. Plan for pt is to continue anticoagulation with Xarelto 20mg daily for one month then december d/c. Pt does not need to be on any rate control medications. Pt's DM2 was managed with Lantus 15u BID and ISS, adjusted as needed for target blood sugar 80 - 140. Poor control lately likely 2/2 higher doses of steroids for COPD exacerbation. Last AIC=9.4 on 09/22/18. Pt's COPD was stable. Lungs CTAB throughout stay. Pt was continued on Duoneb PRN, Albuterol PRN, Arformoterol, Tessalon Perles, and Prednisone 40mg po daily. Pt Hypothyroidism managed with Synthroid 75 mcg. TSH was 0.185 here. Pt's Anxiety managed with Escitalopram. DVT Prophylaxis with heparin drip initially, then xarelto. At time of d/c, pt has no other acute concerns or complaints. Total Time Total Time Spent Total Time Spent (In Minutes): 30 min Discharge Plan Discharge Items Patient Disposition: Home - Home Health Services Reason For Visit: CHEST PAIN,AF Discharge Diagnosis: Atrial Flutter with RVR - s/p Ablation Discharge Goals: Decrease discomfort Activity: Resume your previous activity Non-emergency contact: Primary Care Provider and Outpatient Physical Therapist Call non-emergency contact if: you have any medication questions and your symptoms worsen Follow-up/Referrals: Concha Marques PA-C [Physician Distillation Operator] - 10/11/18 3:00 pm (follow up appointment at your primary care physicians office with the physician assistant accounting manager) Diet: Carb Consistent or DM2 and Heart Healthy Addtl Provider Instructions: You were admitted for A flutter seen on EKG on admission. Your high troponins ( heart injury marker) were likely secondary to increased demand of your heart beating faster. Please follow the below instructions on discharge: -Continue your anticoagulant Xarelto 20mg for 3-4 weeks -You do not need any rate or rhythm control agents -Follow-up with cardiology clinic in 3-4 weeks Prescriptions: New rivaroxaban [Xarelto] 20 mg Tablet 20 mg PO QPM Qty: 30 RF: 0 Continue simvastatin 80 mg tablet 80 mg PO HS RF: 0 arformoterol [Brovana] 15 mcg/2 mL Solution For Nebulization 15 mcg INHALATION Q12H RF: 0 sdxyjozl-ijw-AP-lycopen-lutein [Centrum Silver] 0.4-300-250 mg-mcg-mcg Tablet 1 tab PO DAILY RF: 0 aclidinium bromide [Tudorza Pressair] 400 mcg/actuation Aerosol Powdr Breath Activated 1 puff Inhalation DAILY RF: 0 codeine-guaifenesin [Cheratussin AC] 10-100 mg/5 mL Liquid 5 ml PO Q4H PRN (Reason: Cough) RF: 0 albuterol sulfate [Ventolin HFA] 90 mcg/actuation Hfa Aerosol Inhaler 2 puff Inhalation QID PRN (Reason: Shortness Of Breath) RF: 0 glucosamine-chondroitin [Osteo Bi-Flex] 250-200 mg Tablet 1 tab PO BID RF: 0 furosemide 20 mg Tablet 20 mg PO DAILY PRN (Reason: Fluid Retention) RF: 0 glimepiride 2 mg Tablet 4 mg PO QAM RF: 0 ferrous sulfate [iron] 325 mg (65 mg iron) Tablet 2 tab PO BID RF: 0 ascorbic acid (vitamin C) 500 mg Tablet 500 mg PO TID RF: 0 cyanocobalamin (vitamin B-12) 1,000 mcg Tablet 1,000 mcg PO DAILY RF: 0 cholecalciferol (vitamin D3) 2,000 unit Tablet 2,000 unit PO DAILY RF: 0 magnesium oxide 400 mg magnesium Tablet 400 mg PO BID RF: 0 metformin 1,000 mg Tablet 1,000 mg PO BID RF: 0 escitalopram oxalate 10 mg tablet 10 mg PO QAM RF: 0 levothyroxine 75 mcg Tablet 75 mcg PO Q2D RF: 0 levothyroxine 75 mcg Tablet 37.5 mcg PO Q2D RF: 0 doxycycline hyclate 100 mg Capsule 100 mg PO BID@0800,2000 Qty: 7 RF: 0 ipratropium-albuterol 0.5 mg-3 mg(2.5 mg base)/3 mL Solution For Nebulization 3 ml NEB .qidr Qty: 90 RF: 0 benzonatate [Tessalon Perles] 100 mg Capsule 100 mg PO TID Qty: 12 RF: 0 fluconazole 100 mg Tablet 100 mg PO QAM Qty: 30 RF: 0 prednisone 10 mg tablet 40 mg PO DAILY RF: 0 Stand-Alone Forms: [facility] Discharge Orders: Discharge Order (Routine); Ordered 10/04/18 Ordered By: Live Cordova Admission Data Admit Date/Time: 09/30/18 21:11 Attending Provider: Carley Parker Admit Provider: Fina Luke Primary Care Provider: Howard Gunderson Other Providers: Fina Luke ; Bert oHyos ; Igor Jewell ; Mohit Perez ; Isra Vaz ; Dillon Yates Jr ; Yunier Rivero ; Lillian Henderson ; Mitzi Nix ; Howard Hwang ; Howard Sorenson ; Brijesh Carver ; Raleigh Pineda ; Abner England ; Kita Beltran ; Lori Rivrea ; Home,Nursing Agency Service: Telemetry Other Interventions: Discharge Summary Assessment (RN) Last Done: 10/04/18 11:25 DC Date/Time DO NOT enter until pt leaves facility: 10/04/18 12:38 Supervising Physician Co-Signing Physician Notes Resident Physician Supervision Note: I independently interviewed and examined the patient and verified the pleitez history and physical, reviewed labs and image studies, discussed the case with the resident Dr. Cordova and agree with the findings and care plan. Time spent in discharge 35 min Resident Activity Tracking Resident Involvement: Resident Care Provided Care Provided: Adult Hospital Medicine
--- NOTE | 2018-10-07 08:49 | Operative Report ---
Post Operative Report Pre & Post Diagnosis Operation Date: 10/03/18 10:00 <No data on this case meets the specified criteria> Procedure Operation Date: 10/03/18 10:00 Actual Procedures p EPS + Ablation for SVT Flutter(Not Applicable) - Howard Sorenson MD s LA Pacing (Add-On) - Howard Sorenson MD s 3D Mapping (Carto) - Howard Sorenson MD Surgeon Artis Sorenson MD Ambulance Paramedic None Estimated Blood Loss 10 I attest to the content of the Intraoperative Record and any orders documented therein. Any exceptions are noted below.
== END 2018-10-04 12:38 | disposition home health service (06) | DRG 274 ==
LOC: EDSEX → ED 14:48 → SUATTDRO 21:11 → 2S 21:11

== ENCOUNTER 2019-03-29 16:32 | Inpatient (IN) ==
[2019-03-29] MEDS ORDERED: NITROGLYCERIN SL 0.4 MG/TAB TAB SL STA (16:45)
[2019-03-29 16:54] LABS: Basophils # (auto) 0.06 K/uL (0-0.2); Basophils % (auto) 0.4 %; Eosinophils # (auto) 0.37 K/uL (0-0.5); Eosinophils % (auto) 2.3 %; Hematocrit (blood only) 37.8 % (42-52); Hemoglobin 12.9 g/dL (14.0-18.0); Immature Granulocytes # (auto) 0.61 K/uL (0.00-0.02); Immature Granulocytes % (auto) 3.7 %; Lymphocytes # (auto) 4.38 K/uL (1.2-3.4); Lymphocytes % (auto) 26.9 %; Mean Corpuscular Hgb Conc 34.1 g/dL (32-36); Mean Corpuscular Volume 92.4 fL (80-100); Mean Platelet Volume 10.3 fL (7.4-10.4); Monocytes # (auto) 1.57 K/uL (0.11-0.59); Monocytes % (auto) 9.6 %; Neutrophils # (auto) 9.29 K/uL (1.4-6.5); Neutrophils % (auto) 57.1 %; Platelet Count 261 K/uL (130-400); RDW Coefficient of Variation 14.4 % (11.5-14.5); Red Blood Count 4.09 M/uL (4.7-6.1); White Blood Count 16.28 K/uL (4.8-10.8)
[2019-03-29 17:06] LABS: Prothrombin Time 10.3 Seconds (9.0-12.0)
[2019-03-29 17:21] LABS: Albumin Globulin Ratio 0.9 (0.9-2); Albumin Level 2.8 gm/dl (3.4-5.0); Bilirubin,Total 0.4 mg/dl (0.2-1); Calcium 8.8 mg/dl (8.5-10.1); Creatinine Clr Calc Pharmacy 47.9 ml/min; Est GFR (African American) 58.2; Est GFR (Non-African American) 50.2; Globulin 3.1 gm/dl (2.5-4.0); Potassium 3.8 mmol/L (3.5-5.1); Total Protein 5.9 gm/dl (6.4-8.2); Troponin I 0.037 ng/ml (0-0.045)
--- NOTE | 2019-03-29 17:27 | XRay Report ---
SINGLE VIEW CHEST CLINICAL HISTORY: Atypical chest pain. FINDINGS: 2 AP, portable, upright chest radiographs are compared to study dated 03/26/2019 and correlat ed with chest CT dated 09/30/2018. The examination is degraded by portable technique and patient rotat ion. The heart is enlarged and there is atherosclerotic calcification of the thoracic aorta. The pul monary vasculature is noncongested. Emphysema and chronic interstitial thickening are similar to prev ious. There is mild chronic elevation of the right hemidiaphragm with associated atelectasis. A trace right pleural effusion is again noted. No airspace consolidation is seen typical for pneumonia. No p neumothorax is seen. The skeletal structures are osteopenic. The bony thorax is grossly intact. IMPRESSION: Cardiomegaly and emphysema with no acute cardiopulmonary abnormality. Electronically signed by: Fausto Donovan M.D. 03/29/2019 5:26 PM
[2019-03-29 17:36] LABS: Beta-Hydroxybutyrate 3.22 mg/dl (0.2-2.81)
--- NOTE | 2019-03-29 18:06 | Emergency Department Note ---
Entered by Alba Brar acting as a scribe for Christiano Sequeira M.D. History of Present Illness General Chief complaint: Chest Pain Stated complaint: CHEST TIGHTNESS Source: patient History of Present Illness Onset (ago): day(s) 1 Location: chest Radiation: abdomen Pain Consistency: + intermittent Maximum Pain Intensity: 4 Current Pain Intensity: 4 Quality: + other (pressure) Exacerbated By: + movement Associated symptoms: + shortness of breath; no nausea/vomiting The patient is a 79 year old male who presents to the Emergency Room with complaints of intermittent chest pain that started yesterday afternoon. He descr ibes the pain as pressure in the center of his chest which slightly radiates down to the abdomen, and rated it as a 4. He also reports shortness of breath and swelling in both feet. He states that the chest pain is exacerbated with movement. The patient recently went on vacation where he experienced a similar episode and was hospitalized for 8 days. Upon arrival today, he was given Nitroglycerin, which improved some pain. He has a past medical history of a heart ablation for an atrial flutter and COPD. He is currently on blood thinner medication. The patient reports only eating half a bowl of cereal today, but denies any nausea or vomiting. Home Medications Home Medications Medication Instructions Recorded Confirmed Type Brovana 15 mcg INHALATION Q12H 08/03/18 03/29/19 History Centrum Silver 1 tab PO QAM 08/03/18 03/29/19 History Tudorza Pressair 1 puff INHALATION QAM 08/03/18 03/29/19 History cholecalciferol (vitamin D3) 2,000 unit PO HS 08/03/18 03/29/19 History cyanocobalamin (vitamin B-12) 1,000 mcg PO QAM 08/03/18 03/29/19 History glucosamine-chondroitin [Osteo 1 tab PO BID 08/03/18 03/29/19 History Bi-Flex] simvastatin 80 mg PO HS 08/03/18 03/29/19 History prednisone 10 mg PO QAM 09/30/18 03/29/19 History rivaroxaban [Xarelto] 20 mg PO QPM #30 tab 10/04/18 03/29/19 Rx metformin 1,000 mg tablet 1,000 mg PO BID #180 tab 02/24/19 03/29/19 Rx albuterol sulfate HFA 90 2 puffs INH Q4H PRN gm 02/27/19 03/29/19 History mcg/actuation aerosol inhaler ferrous sulfate 325 mg (65 mg 325 mg PO BID tab 02/27/19 03/29/19 History iron) tablet fluticasone propionate 50 2 sprays INTNAS QAM 02/27/19 03/29/19 History mcg/actuation nasal spray,suspension furosemide 20 mg tablet 20 mg PO BID 02/27/19 03/29/19 History levothyroxine 75 mcg tablet 75 mcg PO Q OTHER DAY tab 02/27/19 03/29/19 History magnesium 250 mg tablet 250 mg PO BID tab 02/27/19 03/29/19 History pantoprazole 40 mg tablet,delayed 40 mg PO QAM 02/27/19 03/29/19 History release glimepiride 3 mg PO QAM 03/05/19 03/29/19 History levothyroxine 37.5 mcg PO Q OTHER DAY 03/05/19 03/29/19 History escitalopram 10 mg tablet 10 mg PO QAM tab 03/20/19 03/29/19 History amoxicillin-pot clavulanate 1 tab PO .BID X 10DAYS 03/29/19 03/29/19 History Allergies Allergy/AdvReac Type Severity Reaction Status Date / Time moxifloxacin Allergy Severe throat Verified 03/29/19 17:54 swelling ofloxacin Allergy Severe SWELLING Verified 03/29/19 17:54 AROUND FACE Quinolones Allergy Severe ANAPHYLAXIS Verified 03/29/19 17:55 formoterol Allergy Intermediate RASH Verified 03/29/19 17:55 metoprolol Allergy Intermediate RASH Verified 03/29/19 17:55 Sulfa (Sulfonamide Allergy Intermediate severe red Verified 03/29/19 17:55 Antibiotics) rash sulfer Allergy Intermediate Rash Uncoded 03/29/19 17:55 Past Med/Surg History Medical History Diastolic CHF (Chronic) Anxiety Depression (Chronic) Hypothyroidism GERD (gastroesophageal reflux disease) (Chronic) Hx of prostatic malignancy HLD (hyperlipidemia) HTN (hypertension) COPD (chronic obstructive pulmonary disease) with acute bronchitis (Chronic 09/02/13) Diabetes (Chronic) Anemia Atrial flutter (Acute) on xarelto Heart disease (Acute) IRREGULAR RHYTHYM Kidney stones (Acute) Pleural effusion (Acute) HX OF Chronic steroid use Mild HOCM (hypertrophic obstructive cardiomyopathy) On anticoagulant therapy xarelto daily On home oxygen therapy 2L N/C at hs Surgical History H/O cystoscopy (Acute) "History of Cystoscopy With Insertion Of Ureteral Stent" on CCD H/O tooth extraction (Acute) History of prostatectomy (Acute) History of bronchoscopy History of cardiac radiofrequency ablation History of repair of right rotator cuff Hx of colonoscopy Hx of esophagogastroduodenoscopy Family History Sister Ovarian cancer Mother Skin cancer Other No family history of adverse response to anesthesia Social History Preferred Language: Romansh Communication Ability: Effective 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 and A total of 10 systems reviewed and were otherwise negative Physical Exam Vital Signs Vital Signs - 24 hr 03/29/19 16:40 03/29/19 16:48 03/29/19 16:55 Temperature 36.5 C Temperature Source Oral Sepsis Recent Fever Within 48 Hours No Sepsis New/Unexplained Change in Mental Status No Sepsis Action Taken by Nursing No Action Required Pulse Rate 115 H 105 H Pulse Rate from SpO2 Sensor 107 H Respiratory Rate 18 18 Blood Pressure 111/62 128/60 Blood Pressure [Right Arm] Blood Pressure Mean 78 82 Blood Pressure Mean [Right Arm] Pulse Oximetry 95 95 95 Oxygen Delivery Method Room Air Room Air 03/29/19 17:00 03/29/19 17:05 03/29/19 17:15 Temperature Temperature Source Sepsis Recent Fever Within 48 Hours Sepsis New/Unexplained Change in Mental Status Sepsis Action Taken by Nursing Pulse Rate 105 H 106 H 103 H Pulse Rate from SpO2 Sensor 105 H 107 H 102 H Respiratory Rate 20 20 18 Blood Pressure 103/59 L 85/50 L 113/54 L Blood Pressure [Right Arm] 93/51 L Blood Pressure Mean 73 61 73 Blood Pressure Mean [Right Arm] 65 Pulse Oximetry 95 94 93 Oxygen Delivery Method 03/29/19 17:20 03/29/19 17:30 03/29/19 17:35 Temperature Temperature Source Sepsis Recent Fever Within 48 Hours Sepsis New/Unexplained Change in Mental Status Sepsis Action Taken by Nursing Pulse Rate 105 H 99 H 100 H Pulse Rate from SpO2 Sensor 105 H 99 H 100 H Respiratory Rate 18 24 19 Blood Pressure 96/63 L 132/66 104/57 L Blood Pressure [Right Arm] Blood Pressure Mean 74 88 72 Blood Pressure Mean [Right Arm] Pulse Oximetry 95 95 96 Oxygen Delivery Method 03/29/19 17:45 03/29/19 17:50 Temperature Temperature Source Sepsis Recent Fever Within 48 Hours Sepsis New/Unexplained Change in Mental Status Sepsis Action Taken by Nursing Pulse Rate 98 H 99 H Pulse Rate from SpO2 Sensor 98 H 99 H Respiratory Rate 18 18 Blood Pressure 122/55 L 128/54 L Blood Pressure [Right Arm] Blood Pressure Mean 77 78 Blood Pressure Mean [Right Arm] Pulse Oximetry 95 96 Oxygen Delivery Method GENERAL: Awake, alert, weak-appearing HENT: Normocephalic, atraumatic. EYES: Normal conjunctiva. Sclera non-icteric. NECK: Supple. No nuchal rigidity. RESPIRATORY: Diminished lung bases. Clear to auscultation otherwise. No wheezes. CARDIAC: Normal rate. Normal rhythm. Extremities warm and well perfused. GI: Soft, non-distended. No tenderness to palpation. No rebound or guarding. No masses. RECTAL: Deferred. MUSCULOSKELETAL: Atraumatic. Chest examination reveals no tenderness. LOWER EXTREMITIES: Trace pedal edema. Calves are equal size bilaterally and non- tender. NEURO: Normal sensorium. No sensory or motor deficits noted. No facial droop. SKIN: Warm and dry. No rash or jaundice noted. Course 1635: Past medical records reviewed. The patient was evaluated in room B07. A complete history and physical exam was performed. 1730: Upon reevaluation, I discussed findings and results with the patient and his . The patient verbalized agreement of the treatment plan. [facility] The patient will be evaluated for further management and care. Administered Medications Discontinued Medications Nitroglycerin (Nitrostat) 0.4 mg SL NOW STA Stop: 03/29/19 16:46 Last Admin: 03/29/19 16:54 Dose: 0.4 mg Documented by: [id number] Medical Decision Making Differential Diagnosis Differential diagnosis includes: cardiac ischemia, aortic dissection, pulmonary embolism, pneumonia, pneumothorax, musculoskeletal infections, pericarditis, myocarditis, esophageal rupture, gastrointestinal, as well as others were ent ertained. Medical Records Attestation: I reviewed the patient's medical records. Home Medications Current Medication List: was personally reviewed by me Laboratory Data Attestation: I reviewed the patient's lab results. Result diagrams: 03/29/19 16:46 03/29/19 16:46 Lab Results 03/29/19 03/29/19 03/29/19 Range/Units 16:46 16:46 16:46 WBC 16.28 H (4.8-10.8) K/uL RBC 4.09 L (4.7-6.1) M/uL Hgb 12.9 L (14.0-18.0) g/dL Hct 37.8 L (42-52) % MCV 92.4 (80-100) fL MCH 31.5 (25-34) pg MCHC 34.1 (32-36) g/dL RDW Std Deviation 49.0 H (36.4-46.3) fL RDW Coeff of Ruddy 14.4 (11.5-14.5) % Plt Count 261 (130-400) K/uL MPV 10.3 (7.4-10.4) fL Immature Gran % (Auto) 3.7 % Neut % (Auto) 57.1 % Lymph % (Auto) 26.9 % [place] % (Auto) 9.6 % Eos % (Auto) 2.3 % Baso % (Auto) 0.4 % Immature Gran # (Auto) 0.61 H (0.00-0.02) K/uL Neut # (Auto) 9.29 H (1.4-6.5) K/uL Lymph # (Auto) 4.38 H (1.2-3.4) K/uL [place] # (Auto) 1.57 H (0.11-0.59) K/uL Eos # (Auto) 0.37 (0-0.5) K/uL Baso # (Auto) 0.06 (0-0.2) K/uL PT 10.3 (9.0-12.0) Seconds INR 1.0 (0.9-1.1) Sodium 137 (136-145) mmol/L Potassium 3.8 (3.5-5.1) mmol/L Chloride 101 (98-107) mmol/L Carbon Dioxide 24 (21-32) mmol/L Anion Gap 12.0 H (3-11) BUN 20 H (7-18) mg/dl Creatinine 1.32 (0.6-1.4) mg/dl Est Cr Clr Drug Dosing 47.9 ml/min Est GFR ( Amer) 58.2 Est GFR (Non-Af Amer) 50.2 BUN/Creatinine Ratio 15.0 (10-20) Glucose 316 H* (70-99) mg/dl Calcium 8.8 (8.5-10.1) mg/dl Total Bilirubin 0.4 (0.2-1) mg/dl AST 16 (15-37) U/L ALT 39 (12-78) U/L Alkaline Phosphatase 84 (45-117) U/L POC Troponin I (0-0.045) ng/ml Troponin I 0.037 (0-0.045) ng/ml NT-Pro-B Natriuret Pep (0-1800) pg/ml Total Protein 5.9 L (6.4-8.2) gm/dl Albumin 2.8 L (3.4-5.0) gm/dl Globulin 3.1 (2.5-4.0) gm/dl Albumin/Globulin Ratio 0.9 (0.9-2) Lipase 311 (73-393) U/L Beta-Hydroxybutyric Acd 3.22 H (0.2-2.81) mg/dl 03/29/19 03/29/19 Range/Units 16:46 16:49 WBC (4.8-10.8) K/uL RBC (4.7-6.1) M/uL Hgb (14.0-18.0) g/dL Hct (42-52) % MCV (80-100) fL MCH (25-34) pg MCHC (32-36) g/dL RDW Std Deviation (36.4-46.3) fL RDW Coeff of Ruddy (11.5-14.5) % Plt Count (130-400) K/uL MPV (7.4-10.4) fL Immature Gran % (Auto) % Neut % (Auto) % Lymph % (Auto) % [place] % (Auto) % Eos % (Auto) % Baso % (Auto) % Immature Gran # (Auto) (0.00-0.02) K/uL Neut # (Auto) (1.4-6.5) K/uL Lymph # (Auto) (1.2-3.4) K/uL [place] # (Auto) (0.11-0.59) K/uL Eos # (Auto) (0-0.5) K/uL Baso # (Auto) (0-0.2) K/uL PT (9.0-12.0) Seconds INR (0.9-1.1) Sodium (136-145) mmol/L Potassium (3.5-5.1) mmol/L Chloride (98-107) mmol/L Carbon Dioxide (21-32) mmol/L Anion Gap (3-11) BUN (7-18) mg/dl Creatinine (0.6-1.4) mg/dl Est Cr Clr Drug Dosing ml/min Est GFR ( Amer) Est GFR (Non-Af Amer) BUN/Creatinine Ratio (10-20) Glucose (70-99) mg/dl Calcium (8.5-10.1) mg/dl Total Bilirubin (0.2-1) mg/dl AST (15-37) U/L ALT (12-78) U/L Alkaline Phosphatase (45-117) U/L POC Troponin I 0.07 H (0-0.045) ng/ml Troponin I (0-0.045) ng/ml NT-Pro-B Natriuret Pep 251 (0-1800) pg/ml Total Protein (6.4-8.2) gm/dl Albumin (3.4-5.0) gm/dl Globulin (2.5-4.0) gm/dl Albumin/Globulin Ratio (0.9-2) Lipase (73-393) U/L Beta-Hydroxybutyric Acd (0.2-2.81) mg/dl Imaging Data Radiologist's Impression: Radiology results as stated below per my review and the radiologist's interpretation: SINGLE VIEW CHEST CLINICAL HISTORY: Atypical chest pain. FINDINGS: 2 AP, portable, upright chest radiographs are compared to study dated 03/26/2019 and correlated with chest CT dated 09/30/2018. The examination is degraded by portable technique and patient rotation. The heart is enlarged and there is atherosclerotic calcification of the thoracic aorta. The pulmonary vasculature is noncongested. Emphysema and chronic interstitial thickening are similar to previous. There is mild chronic elevation of the right hemidiaphragm with associated atelectasis. A trace right pleural effusion is again noted. No airspace consolidation is seen typical for pneumonia. No pneumothorax is seen. The skeletal structures are osteopenic. The bony thorax is grossly intact. IMPRESSION: Cardiomegaly and emphysema with no acute cardiopulmonary abnormality. Electronically signed by: Fausto Donovan M.D. 03/29/2019 5:26 PM ECG Data Attestation: I personally reviewed and interpreted this ECG as follows: Indication: chest pain Rate (beats per minute): 113 Rhythm: sinus tachycardia Findings: + PAC and + RBBB; no ST elevation Blood Pressure Blood Pressure Findings: Elevated blood pressure Blood Pressure Disposition: further management by hospitalist ASHA Elias Patient is a 79-year-old gentleman with a past medical history including COPD, CHF, atrial flutter, GERD, hypertension, and diabetes currently on Xarelto presenting today complaining of chest pain described as a pressure starting yesterday. Pain worsened this morning. Mid to lower sternal. No trauma reported. Feels may be a little bit short of breath. Doubt this represents dissection. Benign abdomen. No radiation to the arm, back, or extremities reported. Had a hospitalization here in September as well as in [place] in January. Denies significant fluid overload signs at this time. EKG in comparison to previous shows right bundle branch block with shift and access with out clear evidence of STEMI; does have some history of inferior repolarization changes.. Patient describes pain as 4 out of 10. Improved with nitro and given an additional dose of nitro here. Given a dose of aspirin for EMS. Doubt PE with the Xarelto usage. No evidence of hepatitis or pancreatitis. Initial troponin slightly detectable. From previous evaluations have detectable troponins at that point was thought to be in the setting of demand ischemia with atrial flutter rvr. Given his ongoing pain for almost 24 hours would expect with south STEMI or occlusion to have a significant higher value, but do have some concerns regarding possible non-occlusive disease causing symptoms. Patient's pain still ongoing though improving. Benign abdomen today and urinalysis from 2 days ago with obvious evidence of infection. Patient has leukocytosis but appears somewhat chronic in comparison to previous values. No significant wheezing on exam and recently saw pulmonary 3 days ago. Doubt this is COPD exacerbation or pneumonia. With his age and risk factors do feel that further evaluation as an inpatient is warranted. Discussed with the pain medicines he is in agreement. The hospitalist was contacted. Impression & Plan Chest pain Discharge Plan Visit Data Chief Complaint: Chest Pain Stated Complaint: CHEST TIGHTNESS ED Provider: Christiano Sequeira Discharge Problem: Chest pain Forms Stand Alone Forms: My [facility] [address] Prescriptions Prescriptions: No Action metformin 1,000 mg tablet 1,000 mg PO BID Qty: 180 RF: 3 albuterol sulfate 90 mcg/actuation HFA aerosol inhaler 2 puffs INH Q4H PRN (Reason: Shortness Of Breath) RF: 0 fluticasone propionate 50 mcg/actuation spray,suspension 2 sprays INTNAS QAM RF: 0 pantoprazole 40 mg tablet,delayed release (DR/EC) 40 mg PO QAM RF: 0 magnesium 250 mg tablet 250 mg PO BID RF: 0 escitalopram oxalate 10 mg tablet 10 mg PO QAM RF: 0 levothyroxine 75 mcg Tablet 37.5 mcg PO Q OTHER DAY RF: 0 glimepiride 2 mg tablet 3 mg PO QAM RF: 0 amoxicillin-pot clavulanate 875-125 mg tablet 1 tab PO .BID X 10DAYS RF: 0 simvastatin 80 mg tablet 80 mg PO HS RF: 0 Brovana 15 mcg/2 mL Solution For Nebulization 15 mcg INHALATION Q12H RF: 0 Centrum Silver 0.4-300-250 mg-mcg-mcg Tablet 1 tab PO QAM RF: 0 Tudorza Pressair 400 mcg/actuation Aerosol Powdr Breath Activated 1 puff Inhalation QAM RF: 0 glucosamine-chondroitin [Osteo Bi-Flex] 250-200 mg Tablet 1 tab PO BID RF: 0 cyanocobalamin (vitamin B-12) 1,000 mcg Tablet 1,000 mcg PO QAM RF: 0 cholecalciferol (vitamin D3) 2,000 unit Tablet 2,000 unit PO HS RF: 0 furosemide 20 mg tablet 20 mg PO BID RF: 0 levothyroxine 75 mcg tablet 75 mcg PO Q OTHER DAY RF: 0 ferrous sulfate [iron] 325 mg (65 mg iron) tablet 325 mg PO BID RF: 0 prednisone 10 mg tablet 10 mg PO QAM RF: 0 Xarelto 20 mg Tablet 20 mg PO QPM Qty: 30 RF: 0 Discharge Problem: Chest pain Qualifiers: Chest pain type: unspecified Qualified Code(s): R07.9 - Chest pain, unspecified The scribe's documentation has been prepared under my direction and personally reviewed by me in its entirety. I confirm that the note above accurately reflects all work, treatment, procedures, and medical decision making performed by me.
--- NOTE | 2019-03-29 19:02 | History & Physical Report ---
Date of Service March 29, 2019 Assessment & Plan (1) Sepsis: Sepsis with lactic acidosis most likely due to hospital-acquired pneumonia as empiric diagnosis. -Elevated lactate to 4, procalcitonin 0.24, leukocytosis of 16.28 -Admits to PCU on telemetry -Vital signs every 4 hours -IV fluid hydration with normal saline at 80 cc/h -Started Zosyn and Linezolid to cover for probable hospital-acquired pneumonia -De-escalate antibiotics if patient response and when blood cultures sensitivity available -DVT prophylaxis patient is on Xarelto -Full code Present on Admission?: Yes (2) Healthcare associated bacterial pneumonia: As the above follow-up sputum cultures. Present on Admission?: Yes (3) Chest pain: Patient presented with chest pain due to tachycardia and myocardial strain associated with severe sepsis and pneumonia -Troponins every 6 hours and trend down -EKG every 6 hours -Continue telemetry -Nitroglycerin 0.4 mg SL PRN's sublingually for chest pain -Consulted cardiology who will follow up with pt in am. -ASA 81 mg Daily, -Started Atenolol 12.5 mg BID and titrate up for rate control. Pt has severe COPD and rash with metoprolol. -Benadryl 25 mg IV 30 min before Atenolol to control reported allergic reaction -rash with metoprolol(per pt) -Aspirin 325 given in the ER -F/u TTE result -Continue home medicine furosemide 20 mg tablets twice daily -Pt has rash associated with beta blockers -tachycardia due to the sepsis, treating underlining cause Present on Admission?: Yes (4) Hyperglycemia: Metformin and glyburide on hold while patient is in the hospital to prevent hypoglycemia and worsening kidney function. -Sliding scale insulin moderate scale -Accu-Cheks before meals and at bedtime -A1c pending Present on Admission?: Yes (5) Elevated troponin: As the above Present on Admission?: Yes (6) Diastolic CHF: Pt appears to be euvolemic and BNP is 251. -Strict in and out -Daily weight -Low-sodium diet Present on Admission?: Yes (7) Anxiety: Stable, hold escitalopram for now while pt is on Linezolid Present on Admission?: Yes (8) Depression: as the above Present on Admission?: Yes (9) Hypothyroidism: TSH 1.240, continue home dose of levothyroxine. Present on Admission?: Yes (10) GERD (gastroesophageal reflux disease): Hold pantoprazole due to kidney insufficiency and patient switched to famotidine renally dosed Present on Admission?: Yes (11) COPD (chronic obstructive pulmonary disease) with acute bronchitis: Patient particularly does not have shortness of breath at this time. -Continue home medicine albuterol sulfate HFA 92 puffs every 4 hours as needed -Brovana 15 MCG every 12 hours inhalation -Fluticasone propionate 50 MCG's nasal suspension 2 sprays -Tudorza 1 puff inhalation every morning. Present on Admission?: Yes History of Present Illness Chief Complaint: Chest pain Primary Care Provider: Artis Gunderson MD 79 years old patient is 79 years old male with past medical history coronary artery disease, COPD emphysema, hyperlipidemia, hypertension, prostate malignancy, GERD, hypothyroidism, anxiety, depression, diastolic congestive heart failure atrial fibrillation on Xarelto, diabetes mellitus type 2, anemia presents to the emergency room with a complaint of chest pain and chest tightness that started today approximately 2 to 3 hours ago. Patient was at rest when chest pain started and he was not doing in particular any activity. The chest pain was located middle of his chest and it was radiating to his left arm. Patient said that he felt his heart is racing. Patient states cardiac ablation of typical right atrial isthmus dependent flutter, electrical anatomical mapping using roving catheter, arrhythmia induction with burst atrial pacing September 2018. The procedure was done by Dr. Artis Sorenson. Patient has frequent visits to the hospital she has frequent visits to the hospital and the most recent one was on March 26. In the past 90 days patient was discharged from [facility] on February 01, 2019 where he was seen for acute exacerbation of diastolic congestive heart failure, COPD exacerbation, elevated troponins, anemia. Patient denies headache fever chills chest pain at the present time shortness of breath abdominal pain urgency frequency hemoptysis hematuria or changes in his bowel, nausea vomiting. Labs were reviewed were reviewed cell count 16.28 with a left shift hemoglobin 12.9 hematocrit 37.8 platelets 261, troponin 0 0.07 elevated, urine cloudy with elevated specific gravity and glycosuria trace ketones. Negative for urine nitrates and leukocyte esterase. White blood cell count in urine normal. Chest x-rays cardiomegaly emphysema with no acute cardiopulmonary abnormalities. 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 The case was discussed and patient is admitted for observation on telemetry to rule out acute coronary syndrome and to determine the reason for mild leukocytosis and tachycardia. Allergies Allergy/AdvReac Type Severity Reaction Status Date / Time moxifloxacin Allergy Severe throat Verified 03/29/19 17:54 swelling ofloxacin Allergy Severe SWELLING Verified 03/29/19 17:54 AROUND FACE Quinolones Allergy Severe ANAPHYLAXIS Verified 03/29/19 17:55 formoterol Allergy Intermediate RASH Verified 03/29/19 17:55 metoprolol Allergy Intermediate RASH Verified 03/29/19 17:55 Sulfa (Sulfonamide Allergy Intermediate severe red Verified 03/29/19 17:55 Antibiotics) rash Home Medications Home Medications Medication Instructions Recorded Confirmed Type Brovana 15 mcg INHALATION Q12H 08/03/18 03/29/19 History Centrum Silver 1 tab PO QAM 08/03/18 03/29/19 History Tudorza Pressair 1 puff INHALATION QAM 08/03/18 03/29/19 History cholecalciferol (vitamin D3) 2,000 unit PO HS 08/03/18 03/29/19 History cyanocobalamin (vitamin B-12) 1,000 mcg PO QAM 08/03/18 03/29/19 History glucosamine-chondroitin [Osteo 1 tab PO BID 08/03/18 03/29/19 History Bi-Flex] simvastatin 80 mg PO HS 08/03/18 03/29/19 History prednisone 10 mg PO QAM 09/30/18 03/29/19 History rivaroxaban [Xarelto] 20 mg PO QPM #30 tab 10/04/18 03/29/19 Rx metformin 1,000 mg tablet 1,000 mg PO BID #180 tab 02/24/19 03/29/19 Rx albuterol sulfate HFA 90 2 puffs INH Q4H PRN gm 02/27/19 03/29/19 History mcg/actuation aerosol inhaler ferrous sulfate 325 mg (65 mg 325 mg PO BID tab 02/27/19 03/29/19 History iron) tablet fluticasone propionate 50 2 sprays INTNAS QAM 02/27/19 03/29/19 History mcg/actuation nasal spray,suspension furosemide 20 mg tablet 20 mg PO BID 02/27/19 03/29/19 History levothyroxine 75 mcg tablet 75 mcg PO Q OTHER DAY tab 02/27/19 03/29/19 History magnesium 250 mg tablet 250 mg PO BID tab 02/27/19 03/29/19 History pantoprazole 40 mg tablet,delayed 40 mg PO QAM 02/27/19 03/29/19 History release glimepiride 3 mg PO QAM 03/05/19 03/29/19 History levothyroxine 37.5 mcg PO Q OTHER DAY 03/05/19 03/29/19 History escitalopram 10 mg tablet 10 mg PO QAM tab 03/20/19 03/29/19 History amoxicillin-pot clavulanate 1 tab PO .BID X 10DAYS 03/29/19 03/29/19 History Past Med/Surg History Medical History Diastolic CHF (Chronic) Anxiety Depression (Chronic) Hypothyroidism GERD (gastroesophageal reflux disease) (Chronic) Hx of prostatic malignancy HLD (hyperlipidemia) HTN (hypertension) COPD (chronic obstructive pulmonary disease) with acute bronchitis (Chronic 09/02/13) Diabetes (Chronic) Anemia Atrial flutter (Acute) on xarelto Heart disease (Acute) IRREGULAR RHYTHYM Kidney stones (Acute) Pleural effusion (Acute) HX OF Chronic steroid use Mild HOCM (hypertrophic obstructive cardiomyopathy) On anticoagulant therapy xarelto daily On home oxygen therapy 2L N/C at hs Surgical History H/O cystoscopy (Acute) "History of Cystoscopy With Insertion Of Ureteral Stent" on CCD H/O tooth extraction (Acute) History of prostatectomy (Acute) History of bronchoscopy History of cardiac radiofrequency ablation History of repair of right rotator cuff Hx of colonoscopy Hx of esophagogastroduodenoscopy Family History Sister Ovarian cancer Mother Skin cancer Other No family history of adverse response to anesthesia Social History Preferred Language: Greek Communication Ability: Effective Instructional Media Services Technician Required: No Beliefs That Will Affect Care: None marital status: Current Living Situation: Spouse Other Information That Helps Us Care for You: No Feels Safe at Home: Yes Smoking Status: Never smoker Second Hand Exposure: No ; Hx Alcohol Use: No Hx Substance Use: No Review of Systems Review of Systems: All systems reviewed & are unremarkable except as noted in HPI & below Respiratory: + cough Cardiovascular: + chest pain at rest and + radiating jaw, neck or arm pain Physical Exam Constitutional: WD/WN, vitals as above well developed and + frail appearing Eyes: PERRL, conjunctivae normal, anicteric sclerae ENMT: external ear and nose normal, oropharynx normal Neck: trachea midline, no thyromegaly Respiratory: + hyperresonance to percussion and + prolonged expiratory phase Cardiovascular: Rate/Rhythm: regular rate and + tachycardic Heart Sounds: normal S1, normal S2 and + murmur Palpation: + palpable S3 Vessels: + bounding carotid pulses Chest (Breasts): normal inspection/palpation of breasts Gastrointestinal (Abdomen): normal bowel sounds, soft, nontender, no hepatosplenomegaly Musculoskeletal: no cyanosis or clubbing, extremities motor strength 5/5 Skin: no rashes, warm and dry Neurologic: patellar DTR's 2+ bilat, sensation intact Psychiatric: A+Ox3, euthymic affect Lymphatic: no cervical or axillary lymphadenopathy Results & Data Vital Signs (Past 12 Hours) Vital Signs Temp Pulse Resp BP BP Pulse Ox 03/29/19 17:50 99 H 18 128/54 L 96 03/29/19 17:45 98 H 18 122/55 L 95 03/29/19 17:35 100 H 19 104/57 L 96 03/29/19 17:30 99 H 24 132/66 95 03/29/19 17:20 105 H 18 96/63 L 95 03/29/19 17:15 103 H 18 113/54 L 93/51 L 93 03/29/19 17:05 106 H 20 85/50 L 94 03/29/19 17:00 105 H 20 103/59 L 95 03/29/19 16:55 105 H 18 128/60 95 03/29/19 16:48 95 03/29/19 16:40 36.5 C 115 H 18 111/62 95 Code Status & VTE Plan Code Status Full code VTE Prophylaxis Plan VTE Prophylaxis will be ordered: Yes PG Care Time/CCT Total # of Minutes Spent Total Time Spent with Patient: Total time spent is greater than 50% in coordination of care (as documented) at patient's floor/unit and/or counseling patient: (1) Chest pain Chest pain type: unspecified Qualified Code(s): R07.9 - Chest pain, unspecified
[2019-03-29] MEDS ORDERED: ZOLPIDEM TARTRATE 5 MG TAB PO PRN (19:28)
[2019-03-29] MEDS ORDERED: ACETAMINOPHEN 325 MG TAB PO PRN (19:28)
[2019-03-29] MEDS ORDERED: POLYETHYLENE (MIRALAX) 17 GM PACK PO PRN (19:28)
[2019-03-29] MEDS ORDERED: ALBUTEROL HFA 8 GM INHALER INH PRN (19:28)
[2019-03-29] MEDS ORDERED: NITROGLYCERIN SL 0.4 MG/TAB TAB SL PRN (19:28)
[2019-03-29] MEDS ORDERED: PIPERACILL/TAZOBAC CONSULT ACTIVE PRN (19:41)
[2019-03-29] MEDS ORDERED: GLUCOSE 10 TABS/TUBE PO PRN ×2 (19:51→19:57)
[2019-03-29] MEDS ORDERED: DEXTROSE 50% 50 ML SYRINGE IV PRN ×2 (19:51→19:57)
[2019-03-29] MEDS ORDERED: GLUCAGON FOR INJ 1 MG VIAL SQ PRN ×2 (19:51→19:57)
[2019-03-29] MEDS ORDERED: GLUCOSE 40% GEL 15 GM TUBE PO PRN ×2 (19:51→19:57)
[2019-03-29] MEDS ORDERED: CARBOHYDRATES FOR HYPOGLYCEMIA PO PRN ×2 (19:51→19:57)
[2019-03-29] MEDS ORDERED: DC ALL PREVIOUSLY ORDERED DIABETES MEDS ONE (19:57)
[2019-03-29] MEDS ORDERED: PIPERACILLIN/TAZOBACTAM 3.375 GM in DEXTROSE 5% 100 ML IV ONE (20:00)
[2019-03-29] MEDS ORDERED: LINEZOLID 600 MG/300 ML D5W IV SCH (20:15)
[2019-03-29 20:38] LABS: Basophils # (auto) 0.05 K/uL (0-0.2); Basophils % (auto) 0.3 %; Eosinophils # (auto) 0.49 K/uL (0-0.5); Eosinophils % (auto) 3.3 %; Hemoglobin 12.6 g/dL (14.0-18.0); Immature Granulocytes # (auto) 0.61 K/uL (0.00-0.02); Immature Granulocytes % (auto) 4.1 %; Lymphocytes # (auto) 4.44 K/uL (1.2-3.4); Lymphocytes % (auto) 29.6 %; Mean Corpuscular Hgb Conc 34.1 g/dL (32-36); Mean Corpuscular Volume 92.7 fL (80-100); Mean Platelet Volume 10.3 fL (7.4-10.4); Monocytes # (auto) 1.39 K/uL (0.11-0.59); Monocytes % (auto) 9.3 %; Neutrophils # (auto) 8.02 K/uL (1.4-6.5); Neutrophils % (auto) 53.4 %; Platelet Count 247 K/uL (130-400); RDW Coefficient of Variation 14.5 % (11.5-14.5); RDW Standard Deviation 49.2 fL (36.4-46.3); Red Blood Count 3.99 M/uL (4.7-6.1)
[2019-03-29] MEDS: SODIUM CHLORIDE 0.9% 1000ML 1,000 ML IV SCH (20:55)
[2019-03-29] MEDS ORDERED: INSULIN ASPART 100 UNITS/ML 3 ML PEN SC SCH (21:00)
[2019-03-29] MEDS ORDERED: NON-FORMULARY MEDICATION (Glucosamine-Chondroitin [Osteo Bi-Flex] 1 TAB) PO SCH (21:00)
[2019-03-29] MEDS ORDERED: ATENOLOL 25 MG TABLET PO STA (21:14)
[2019-03-29] MEDS ORDERED: DiphenhydrAMINE HCL 50 MG/ML VIAL IV PRN (21:15)
[2019-03-29] MEDS: ARFORMOTEROL TART 15MCG/2ML VIAL INH SCH (21:27)
[2019-03-29] MEDS: RIVAROXABAN 20 MG TAB PO SCH (21:39)
[2019-03-29] MEDS: FUROSEMIDE 20 MG TAB PO SCH (21:39)
[2019-03-29] MEDS: SIMVASTATIN 80 MG TAB PO SCH (21:40)
[2019-03-29] MEDS: LINEZOLID 600 MG/300 ML BAG IV SCH (21:41)
[2019-03-29] MEDS: MAGNESIUM OXIDE 400 MG TAB PO SCH (21:41)
[2019-03-29] MEDS: CHOLECALCIFEROL 1,000 UNITS TAB PO SCH (21:41)
[2019-03-30] MEDS: PIPERACILLIN/TAZOBACTAM 3.375 GM in DEXTROSE 5% 100 ML IV SCH ×3 (03:41→19:13)
[2019-03-30] MEDS: LEVOTHYROXINE SODIUM 75 MCG TABLET PO SCH (06:01)
[2019-03-30 06:30] LABS: Hematocrit (blood only) 36.5 % (42-52); Mean Corpuscular Hgb Conc 32.9 g/dL (32-36); Mean Corpuscular Volume 93.1 fL (80-100); Mean Platelet Volume 10.4 fL (7.4-10.4); Platelet Count 208 K/uL (130-400); RDW Coefficient of Variation 14.6 % (11.5-14.5); RDW Standard Deviation 49.4 fL (36.4-46.3); Red Blood Count 3.92 M/uL (4.7-6.1); White Blood Count 11.08 K/uL (4.8-10.8)
[2019-03-30 06:53] LABS: Basophils # (auto) 0.06 K/uL (0-0.2); Basophils % (auto) 0.5 %; Eosinophils # (auto) 0.83 K/uL (0-0.5); Eosinophils % (auto) 7.5 %; Immature Granulocytes # (auto) 0.61 K/uL (0.00-0.02); Immature Granulocytes % (auto) 5.5 %; Lymphocytes # (auto) 2.92 K/uL (1.2-3.4); Lymphocytes % (auto) 26.4 %; Monocytes # (auto) 1.08 K/uL (0.11-0.59); Monocytes % (auto) 9.7 %; Neutrophils # (auto) 5.58 K/uL (1.4-6.5); Neutrophils % (auto) 50.4 %
[2019-03-30 06:59] LABS: Albumin Level 2.7 gm/dl (3.4-5.0); BUN Creatinine Ratio 15.6 (10-20); Calcium 8.3 mg/dl (8.5-10.1); Creatinine Clr Calc Pharmacy 53.7 ml/min; Est GFR (African American) 68.8; Est GFR (Non-African American) 59.4; Potassium 4.1 mmol/L (3.5-5.1)
[2019-03-30 07:02] LABS: Albumin Globulin Ratio 0.9 (0.9-2); Bilirubin,Total 0.4 mg/dl (0.2-1); Globulin 3.1 gm/dl (2.5-4.0); Total Protein 5.8 gm/dl (6.4-8.2)
[2019-03-30] MEDS: ARFORMOTEROL TART 15MCG/2ML VIAL INH SCH ×2 (07:03→19:28)
[2019-03-30] MEDS: LINEZOLID 600 MG/300 ML BAG IV SCH ×2 (08:04→20:00)
[2019-03-30] MEDS: CEROVITE ADV FORMULA TAB PO SCH (08:06)
[2019-03-30] MEDS: FERROUS SULFATE 325 MG TAB PO SCH ×2 (08:06→16:54)
[2019-03-30] MEDS: CYANOCOBALAMIN 500 MCG TABLET (VITAMIN B-12) PO SCH (08:06)
[2019-03-30] MEDS: ATENOLOL 25 MG TABLET PO SCH ×2 (08:07→19:58)
[2019-03-30] MEDS: MAGNESIUM OXIDE 400 MG TAB PO SCH ×2 (08:07→19:58)
[2019-03-30] MEDS: FUROSEMIDE 20 MG TAB PO SCH (08:07)
[2019-03-30] MEDS: predniSONE 10 MG TABLET PO SCH (08:07)
[2019-03-30] MEDS: FLUTICASONE PROPIONATE NA SPR 16 GM BTL NAE SCH (08:08)
[2019-03-30] MEDS: ESCITALOPRAM OXALATE 10 MG TAB PO SCH (08:08)
[2019-03-30] MEDS: INSULIN ASPART 100 UNITS/ML 3 ML PEN SC SCH ×4 (08:10→21:37)
[2019-03-30] MEDS: SODIUM CHLORIDE 0.9% 1000ML 1,000 ML IV SCH (08:13)
--- NOTE | 2019-03-30 09:21 | Family Medicine Progress Note ---
Date of Service March 30, 2019 Assessment & Plan (1) Chest pain: 79yo male with history of AF, HTN, HLD, DM, COPD/asbestosis, GERD, diastolic CHF who presented to ED with worsening fatigue/weakness and dyspnea on exertion. H/o recent weight loss (20lbs in last several months) and chronic/wo rsening fatigue. Review of most recent medical records shows: [facility]AN [facility] January 2019: -CT chest with small b/l pleural eff, and multiple pulmonary nodules up to 7mm, repeat rec in 3-6 mo. He was treated for COPD exacerbation with IV steroids, then PO steroid taper. -A1C was 10.3. Hyperglycemia noted, 400s. -TTE done and showed mild conc LVH, EF 65%, LA mild dilated. Very small pericardial effusion. -mild troponin elev to 0.1 thought to be 2/2 demand ischemia. -Anemia - FOBT was +, hgb 10.6 on discharge - received IV Fe transfusions, and given PO. Not deficient in B12 or folic acid. -thought to also have acute/chronic HFpEF - treated with IV lasix. No supplemental O2 needed. - also seen by PCP for TCM and then Pulmonology last week - concern for worsening anorexia/weakness and fatigue. Discussion was had to pursue PET CT imaging to look for occult malignancy to explain the anorexia and weakness. #Fatigue -very likely a multifactorial syndrome involving chronic disease (acute on chronic cardiopulmonary disease, see below) combined with deconditioning/m alnutrition as evidenced by his decreasing activity/poor appetite and concurrent anorexia -there is also concern for constipation/overflow diarrhea (see below) - in the setting of possible HCAP (see below) Plan: -address acute issues (see below) -PT/OT #Dyspnea on exertion in the setting of possible septic picture - + leukocytosis on admission/ lac 4.0 / and SLOAN - treating empirically for HCAP given recent hospital admission in [facility] ([facility]) - has remained afebrile here, and per no fevers x 1 week [employer]. - however Procal is negative. - was actually on a course of abx upon admission, as well as prednisone for COPD flare - which may very well explain the leukocytosis - continue Zosyn/Zyvox (03/30 Day 2) pending blood cultures and CT Chest - if both negative, reasonable to DC abx. - * to resume escitalopram once linezolid DCd - add tessalon perles for cough - ok to DC pending subjective response #Dyspnea on exertion in the setting of elevated troponin - 0.037 -> 0.056 -> 0.048 with stable EKG and repeat TTE here shows stable HFpEF - unlikely cardiac cause - AFIB with no acute issues as below #Dyspnea on exertion in setting of vague lower abdominal pain / decreased PO - colonoscopy Sep 2016 showed diverticulosis and nonbleeding hemorrhoids. EGD Sep 2016 showed normal esophagus and small hital hernia. - h/o kidney stones/renal colic - CT a/p pending - constipation remains on the differential given clinical picture of overflow diarrhea. CT as above. - add Boost #Deconditioning - acute issues as above. - PT/OT ordered - may require rehab #Anorexia - unknown etiology however will rule out possible cancer diagnosis with chest/abdomen CT (pt does have h/o prostate ca, s/p prostatectomy) - dietary/physical conditioning as above FEN/GI: heart healthy/T2DM, nutrition supplement (Boost) DVT ppx: on xarelto QPM CODE STATUS: FULL - although pt states he would only like "one shot" at cardiac resuscitation and intubation, which seems to mean he would not want prolonged resuscitative efforts. He says knows his wishes. DISPO: tele Other ongoing medical problems: COPD -continue inhalers - continue home 10mg prednisone dosing - apparently takes this everyday acc to outpatient records. AFIB - cont home atenolol BID - on xarelto HLD - cont home simvastatin 80mg HFpEF - cont home lasix BID once fluids completed. - apparently intolerant of metoprolol, follows with [facility]. Anemia - baseline appears to be 11-13, is at baseline. - cont home Fe T2DM - ISS, hold home metformin Hypothyroidism - no acute issues - TSH 1.24 on 10Aug. - cont home levothyroxine Depression - escitalopram HELD while on linezolid as is contraindicated due to HIGH risk of serotonin syndrome. Supervising Physician Co-Signing Physician Notes I personally examined the patient and verified all pleitez points of history and exam, discussed case, and agree with decision making with Dr Ryan. Feeling better than last night. Ate better than he has in quite a while. Long and extensive decline, including being weak and tired all the time, not eating and drinking well. Intermittent lower abdominal pain (suprapubic but crampy and dull in nature, coming on without any clear provoking factors, alleviated either with time or with medication such as Kaopectate) diarrhea which he describes as mush, fevers last week, but he was on an outpatient course of antibiotics and steroids and has not had a fever in about a week. Sleeping 16+ hours a day and feeling tired and weak with even getting around the house. Intermittent nausea and vomiting. A weight loss of approximately 20 pounds. Vitals noted, in general he is awake and alert pleasant no distress. HEENT normocephalic atraumatic mucous membranes moist. Breathing unlabored no acce ssory muscle use good effort. Skin shows no rashes no pallor or icterus. No focal neurologic deficits. Failure to thrive/weakness/overall decline -Seems most likely to be multifactorial -Pulmonary headset things in motion to evaluate for an occult malignancy, given his age and weight loss this is reasonableCTs to evaluate for any tell tell signs of malignancy -Most likely is a combination of dehydration, deconditioning, chronic constipation (with diarrhea being overflow), reduced oral intake due to all of the above compounding the problem with acute malnutrition/weight loss. -Seems most likely that what got him feeling so much better overnight with the IV fluids more so than the antibiotics--he does not show any focal signs or symptoms of infection now, he had a fever a week ago but none since, his leukocytosis could easily be explained by his steroid use, his procalcitonin is reassuringly low. We will follow blood cultures for 48 hours, and get chest CT to evaluate for any occult pneumonia. Otherwise will stop antibiotics by tomorrow if nothing is grown on cultures and if his CT does not show any infiltrate. Discussed that given that his hospital stay in [place] was for CHF, and that the balance between wet and dry can sometimes be quite difficult, it would be no surprise that part of this would be dehydration. Gently hydrate, but obviously try not to precipitate a recurrent CHF exacerbation. PT/OT eval and treat. Discussed that he will definitely need ongoing therapy, whether inpatient or at home. -Suspect main current factors making him weak/failure to thrive are: -Dehydration -Acute malnutrition/poor oral intake that may at least in part relate back to bowel issues (presumed constipation with overflow diarrhea) as well as from poor oral intake from deconditioning -Deconditioning (related to recent hospitalizations and infections) Otherwise as above Time in the room approximately 12:50 PM, time out of the room approximately 1:30 PM. Subjective No acute events overnight, fluids/IV abx running. Pt states he is "breathing better" today - chest tightness is resolved. Also denies productive cough (although is having dry cough in the room), cp, dysuria, hematuria, melena/hematochezia, or paresthesias. ++ intermittent lower abdominal pain a/w "mushy" "diarrhea" from time to time. Denies flank or groin pain. Per nursing he is ambulating well. Discussed plan at length with , daughter and friend at bedside. Review of Systems Review of Systems: All systems reviewed & are unremarkable except as noted in HPI & below Physical Exam Physical Exam: Vitals noted and within normal limits GENERAL: Awake, alert to person, place, and time, nontoxic-appearing, in no distress. +hard of hearing - his right ear is better. HENT: Normocephalic, atraumatic. Mucus membranes appear moist. EYES: Normal conjunctiva. Sclera non-icteric. EOMI. NECK: Supple. Full range of motion. No JVD. RESPIRATORY: Clear to auscultation. Normal work of breathing. CARDIAC: Regular rate, normal rhythm. Extremities warm and well perfused, 2+ radial pulses bilaterally; 2+ posterior tibialis pulses bilaterally. ABDOMEN: Soft, non-distended. No tenderness to palpation in all four quadrants. No rebound or guarding. No masses. Bowel sounds are normal. LOWER EXTREMITIES: Inspection of calves reveal equal size bilaterally. They are non-tender. No edema. No discoloration. NEURO: No gross focal motor deficits noted. Sensation in tact. CN II-XII grossly in tact. Strength 4/5 in RLE, 5/5 in LLE. SKIN: Rash not present. No jaundice noted. Significant lesions not present. No skin ulcerations. + onychomycosis PSYCH: Appropriate mood and affect. Cooperative. Exam as done by Bryanna Ryan MD, [employer] Coordinator. Results & Data Vital Signs (Past 12 Hours) Vital Signs Temp Pulse Pulse Resp BP BP Pulse Ox 03/30/19 07:45 36.4 C L 83 22 127/77 98 03/30/19 07:03 72 14 95 03/30/19 04:36 36.7 C 77 18 111/63 96 03/29/19 23:37 37.0 C 83 19 133/74 98 03/29/19 21:29 89 18 96 Laboratory Results 03/30/19 03/30/19 03/30/19 Range/Units 11:24 10:00 07:15 WBC (4.8-10.8) K/uL RBC (4.7-6.1) M/uL Hgb (14.0-18.0) g/dL Hct (42-52) % MCV (80-100) fL MCH (25-34) pg MCHC (32-36) g/dL RDW Std Deviation (36.4-46.3) fL RDW Coeff of Ruddy (11.5-14.5) % Plt Count (130-400) K/uL MPV (7.4-10.4) fL Immature Gran % (Auto) % Neut % (Auto) % Lymph % (Auto) % Foard % (Auto) % Eos % (Auto) % Baso % (Auto) % Immature Gran # (Auto) (0.00-0.02) K/uL Neut # (Auto) (1.4-6.5) K/uL Lymph # (Auto) (1.2-3.4) K/uL Foard # (Auto) (0.11-0.59) K/uL Eos # (Auto) (0-0.5) K/uL Baso # (Auto) (0-0.2) K/uL PT (9.0-12.0) Seconds INR (0.9-1.1) Sodium (136-145) mmol/L Potassium (3.5-5.1) mmol/L Chloride (98-107) mmol/L Carbon Dioxide (21-32) mmol/L Anion Gap (3-11) BUN (7-18) mg/dl Creatinine (0.6-1.4) mg/dl Est Cr Clr Drug Dosing ml/min Est GFR ( Amer) Est GFR (Non-Af Amer) BUN/Creatinine Ratio (10-20) Glucose (70-99) mg/dl POC Glucose 258 H 186 H (70-99) Estimat Average Glucose Hemoglobin A1c Lactate (0.4-2.0) mmol/L Calcium (8.5-10.1) mg/dl Total Bilirubin (0.2-1) mg/dl AST (15-37) U/L ALT (12-78) U/L Alkaline Phosphatase (45-117) U/L POC Troponin I (0-0.045) ng/ml Troponin I (0-0.045) ng/ml NT-Pro-B Natriuret Pep (0-1800) pg/ml Total Protein (6.4-8.2) gm/dl Albumin (3.4-5.0) gm/dl Globulin (2.5-4.0) gm/dl Albumin/Globulin Ratio (0.9-2) Triglycerides (0-150) mg/dl Cholesterol (0-200) mg/dl LDL Cholesterol, Calc mg/dl VLDL Cholesterol, Calc mg/dl HDL Cholesterol mg/dl Cholesterol/HDL Ratio Lipase (73-393) U/L Beta-Hydroxybutyric Acd (0.2-2.81) mg/dl Procalcitonin (0-0.5) ng/ml TSH (0.300-4.500) uIu/ml Nasal Screen MRSA (PCR) (Negative) Influenza Type A (PCR) Neg for Influ A (Neg) Influenza Type B (PCR) Neg for Influ B (Neg) 03/30/19 03/30/19 03/30/19 Range/Units 06:15 06:15 06:15 WBC (4.8-10.8) K/uL RBC (4.7-6.1) M/uL Hgb (14.0-18.0) g/dL Hct (42-52) % MCV (80-100) fL MCH (25-34) pg MCHC (32-36) g/dL RDW Std Deviation (36.4-46.3) fL RDW Coeff of Ruddy (11.5-14.5) % Plt Count (130-400) K/uL MPV (7.4-10.4) fL Immature Gran % (Auto) % Neut % (Auto) % Lymph % (Auto) % Foard % (Auto) % Eos % (Auto) % Baso % (Auto) % Immature Gran # (Auto) (0.00-0.02) K/uL Neut # (Auto) (1.4-6.5) K/uL Lymph # (Auto) (1.2-3.4) K/uL Foard # (Auto) (0.11-0.59) K/uL Eos # (Auto) (0-0.5) K/uL Baso # (Auto) (0-0.2) K/uL PT (9.0-12.0) Seconds INR (0.9-1.1) Sodium (136-145) mmol/L Potassium (3.5-5.1) mmol/L Chloride (98-107) mmol/L Carbon Dioxide (21-32) mmol/L Anion Gap (3-11) BUN (7-18) mg/dl Creatinine (0.6-1.4) mg/dl Est Cr Clr Drug Dosing ml/min Est GFR ( Amer) Est GFR (Non-Af Amer) BUN/Creatinine Ratio (10-20) Glucose (70-99) mg/dl POC Glucose (70-99) Estimat Average Glucose Pending Hemoglobin A1c Pending Lactate 3.2 H* (0.4-2.0) mmol/L Calcium (8.5-10.1) mg/dl Total Bilirubin (0.2-1) mg/dl AST (15-37) U/L ALT (12-78) U/L Alkaline Phosphatase (45-117) U/L POC Troponin I (0-0.045) ng/ml Troponin I 0.048 H* (0-0.045) ng/ml NT-Pro-B Natriuret Pep (0-1800) pg/ml Total Protein (6.4-8.2) gm/dl Albumin (3.4-5.0) gm/dl Globulin (2.5-4.0) gm/dl Albumin/Globulin Ratio (0.9-2) Triglycerides (0-150) mg/dl Cholesterol (0-200) mg/dl LDL Cholesterol, Calc mg/dl VLDL Cholesterol, Calc mg/dl HDL Cholesterol mg/dl Cholesterol/HDL Ratio Lipase (73-393) U/L Beta-Hydroxybutyric Acd (0.2-2.81) mg/dl Procalcitonin (0-0.5) ng/ml TSH (0.300-4.500) uIu/ml Nasal Screen MRSA (PCR) (Negative) Influenza Type A (PCR) (Neg) Influenza Type B (PCR) (Neg) 03/30/19 03/30/19 03/30/19 Range/Units 06:15 06:15 01:32 WBC 11.08 H (4.8-10.8) K/uL RBC 3.92 L (4.7-6.1) M/uL Hgb 12.0 L (14.0-18.0) g/dL Hct 36.5 L (42-52) % MCV 93.1 (80-100) fL MCH 30.6 (25-34) pg MCHC 32.9 (32-36) g/dL RDW Std Deviation 49.4 H (36.4-46.3) fL RDW Coeff of Ruddy 14.6 H (11.5-14.5) % Plt Count 208 (130-400) K/uL MPV 10.4 (7.4-10.4) fL Immature Gran % (Auto) 5.5 % Neut % (Auto) 50.4 % Lymph % (Auto) 26.4 % Foard % (Auto) 9.7 % Eos % (Auto) 7.5 % Baso % (Auto) 0.5 % Immature Gran # (Auto) 0.61 H (0.00-0.02) K/uL Neut # (Auto) 5.58 (1.4-6.5) K/uL Lymph # (Auto) 2.92 (1.2-3.4) K/uL Foard # (Auto) 1.08 H (0.11-0.59) K/uL Eos # (Auto) 0.83 H (0-0.5) K/uL Baso # (Auto) 0.06 (0-0.2) K/uL PT (9.0-12.0) Seconds INR (0.9-1.1) Sodium 139 (136-145) mmol/L Potassium 4.1 (3.5-5.1) mmol/L Chloride 103 (98-107) mmol/L Carbon Dioxide 27 (21-32) mmol/L Anion Gap 8.0 (3-11) BUN 18 (7-18) mg/dl Creatinine 1.15 (0.6-1.4) mg/dl Est Cr Clr Drug Dosing 53.7 ml/min Est GFR ( Amer) 68.8 Est GFR (Non-Af Amer) 59.4 BUN/Creatinine Ratio 15.6 (10-20) Glucose 188 H (70-99) mg/dl POC Glucose (70-99) Estimat Average Glucose Hemoglobin A1c Lactate (0.4-2.0) mmol/L Calcium 8.3 L (8.5-10.1) mg/dl Total Bilirubin 0.4 (0.2-1) mg/dl AST 15 (15-37) U/L ALT 35 (12-78) U/L Alkaline Phosphatase 77 (45-117) U/L POC Troponin I (0-0.045) ng/ml Troponin I 0.056 H* (0-0.045) ng/ml NT-Pro-B Natriuret Pep (0-1800) pg/ml Total Protein 5.8 L (6.4-8.2) gm/dl Albumin 2.7 L (3.4-5.0) gm/dl Globulin 3.1 (2.5-4.0) gm/dl Albumin/Globulin Ratio 0.9 (0.9-2) Triglycerides 358 H (0-150) mg/dl Cholesterol 130 (0-200) mg/dl LDL Cholesterol, Calc 14 mg/dl VLDL Cholesterol, Calc 72 mg/dl HDL Cholesterol 44 mg/dl Cholesterol/HDL Ratio 3 Lipase (73-393) U/L Beta-Hydroxybutyric Acd (0.2-2.81) mg/dl Procalcitonin (0-0.5) ng/ml TSH (0.300-4.500) uIu/ml Nasal Screen MRSA (PCR) (Negative) Influenza Type A (PCR) (Neg) Influenza Type B (PCR) (Neg) 03/30/19 03/29/19 03/29/19 Range/Units 00:14 21:50 21:08 WBC (4.8-10.8) K/uL RBC (4.7-6.1) M/uL Hgb (14.0-18.0) g/dL Hct (42-52) % MCV (80-100) fL MCH (25-34) pg MCHC (32-36) g/dL RDW Std Deviation (36.4-46.3) fL RDW Coeff of Ruddy (11.5-14.5) % Plt Count (130-400) K/uL MPV (7.4-10.4) fL Immature Gran % (Auto) % Neut % (Auto) % Lymph % (Auto) % Foard % (Auto) % Eos % (Auto) % Baso % (Auto) % Immature Gran # (Auto) (0.00-0.02) K/uL Neut # (Auto) (1.4-6.5) K/uL Lymph # (Auto) (1.2-3.4) K/uL Foard # (Auto) (0.11-0.59) K/uL Eos # (Auto) (0-0.5) K/uL Baso # (Auto) (0-0.2) K/uL PT (9.0-12.0) Seconds INR (0.9-1.1) Sodium (136-145) mmol/L Potassium (3.5-5.1) mmol/L Chloride (98-107) mmol/L Carbon Dioxide (21-32) mmol/L Anion Gap (3-11) BUN (7-18) mg/dl Creatinine (0.6-1.4) mg/dl Est Cr Clr Drug Dosing ml/min Est GFR ( Amer) Est GFR (Non-Af Amer) BUN/Creatinine Ratio (10-20) Glucose (70-99) mg/dl POC Glucose 236 H 310 H* (70-99) Estimat Average Glucose Hemoglobin A1c Lactate (0.4-2.0) mmol/L Calcium (8.5-10.1) mg/dl Total Bilirubin (0.2-1) mg/dl AST (15-37) U/L ALT (12-78) U/L Alkaline Phosphatase (45-117) U/L POC Troponin I (0-0.045) ng/ml Troponin I (0-0.045) ng/ml NT-Pro-B Natriuret Pep (0-1800) pg/ml Total Protein (6.4-8.2) gm/dl Albumin (3.4-5.0) gm/dl Globulin (2.5-4.0) gm/dl Albumin/Globulin Ratio (0.9-2) Triglycerides (0-150) mg/dl Cholesterol (0-200) mg/dl LDL Cholesterol, Calc mg/dl VLDL Cholesterol, Calc mg/dl HDL Cholesterol mg/dl Cholesterol/HDL Ratio Lipase (73-393) U/L Beta-Hydroxybutyric Acd (0.2-2.81) mg/dl Procalcitonin (0-0.5) ng/ml TSH (0.300-4.500) uIu/ml Nasal Screen MRSA (PCR) Negative (Negative) Influenza Type A (PCR) (Neg) Influenza Type B (PCR) (Neg) 03/29/19 03/29/19 03/29/19 Range/Units 20:36 20:20 20:20 WBC 15.00 H (4.8-10.8) K/uL RBC 3.99 L (4.7-6.1) M/uL Hgb 12.6 L (14.0-18.0) g/dL Hct 37.0 L (42-52) % MCV 92.7 (80-100) fL MCH 31.6 (25-34) pg MCHC 34.1 (32-36) g/dL RDW Std Deviation 49.2 H (36.4-46.3) fL RDW Coeff of Ruddy 14.5 (11.5-14.5) % Plt Count 247 (130-400) K/uL MPV 10.3 (7.4-10.4) fL Immature Gran % (Auto) 4.1 % Neut % (Auto) 53.4 % Lymph % (Auto) 29.6 % Foard % (Auto) 9.3 % Eos % (Auto) 3.3 % Baso % (Auto) 0.3 % Immature Gran # (Auto) 0.61 H (0.00-0.02) K/uL Neut # (Auto) 8.02 H (1.4-6.5) K/uL Lymph # (Auto) 4.44 H (1.2-3.4) K/uL Foard # (Auto) 1.39 H (0.11-0.59) K/uL Eos # (Auto) 0.49 (0-0.5) K/uL Baso # (Auto) 0.05 (0-0.2) K/uL PT (9.0-12.0) Seconds INR (0.9-1.1) Sodium (136-145) mmol/L Potassium (3.5-5.1) mmol/L Chloride (98-107) mmol/L Carbon Dioxide (21-32) mmol/L Anion Gap (3-11) BUN (7-18) mg/dl Creatinine (0.6-1.4) mg/dl Est Cr Clr Drug Dosing ml/min Est GFR ( Amer) Est GFR (Non-Af Amer) BUN/Creatinine Ratio (10-20) Glucose (70-99) mg/dl POC Glucose (70-99) Estimat Average Glucose Hemoglobin A1c Lactate 3.4 H* (0.4-2.0) mmol/L Calcium (8.5-10.1) mg/dl Total Bilirubin (0.2-1) mg/dl AST (15-37) U/L ALT (12-78) U/L Alkaline Phosphatase (45-117) U/L POC Troponin I (0-0.045) ng/ml Troponin I 0.037 (0-0.045) ng/ml NT-Pro-B Natriuret Pep (0-1800) pg/ml Total Protein (6.4-8.2) gm/dl Albumin (3.4-5.0) gm/dl Globulin (2.5-4.0) gm/dl Albumin/Globulin Ratio (0.9-2) Triglycerides (0-150) mg/dl Cholesterol (0-200) mg/dl LDL Cholesterol, Calc mg/dl VLDL Cholesterol, Calc mg/dl HDL Cholesterol mg/dl Cholesterol/HDL Ratio Lipase (73-393) U/L Beta-Hydroxybutyric Acd (0.2-2.81) mg/dl Procalcitonin (0-0.5) ng/ml TSH (0.300-4.500) uIu/ml Nasal Screen MRSA (PCR) (Negative) Influenza Type A (PCR) (Neg) Influenza Type B (PCR) (Neg) 03/29/19 03/29/19 03/29/19 Range/Units 19:05 19:05 16:49 WBC (4.8-10.8) K/uL RBC (4.7-6.1) M/uL Hgb (14.0-18.0) g/dL Hct (42-52) % MCV (80-100) fL MCH (25-34) pg MCHC (32-36) g/dL RDW Std Deviation (36.4-46.3) fL RDW Coeff of Ruddy (11.5-14.5) % Plt Count (130-400) K/uL MPV (7.4-10.4) fL Immature Gran % (Auto) % Neut % (Auto) % Lymph % (Auto) % Foard % (Auto) % Eos % (Auto) % Baso % (Auto) % Immature Gran # (Auto) (0.00-0.02) K/uL Neut # (Auto) (1.4-6.5) K/uL Lymph # (Auto) (1.2-3.4) K/uL Foard # (Auto) (0.11-0.59) K/uL Eos # (Auto) (0-0.5) K/uL Baso # (Auto) (0-0.2) K/uL PT (9.0-12.0) Seconds INR (0.9-1.1) Sodium (136-145) mmol/L Potassium (3.5-5.1) mmol/L Chloride (98-107) mmol/L Carbon Dioxide (21-32) mmol/L Anion Gap (3-11) BUN (7-18) mg/dl Creatinine (0.6-1.4) mg/dl Est Cr Clr Drug Dosing ml/min Est GFR ( Amer) Est GFR (Non-Af Amer) BUN/Creatinine Ratio (10-20) Glucose (70-99) mg/dl POC Glucose (70-99) Estimat Average Glucose Hemoglobin A1c Lactate 4.0 H* (0.4-2.0) mmol/L Calcium (8.5-10.1) mg/dl Total Bilirubin (0.2-1) mg/dl AST (15-37) U/L ALT (12-78) U/L Alkaline Phosphatase (45-117) U/L POC Troponin I 0.07 H (0-0.045) ng/ml Troponin I (0-0.045) ng/ml NT-Pro-B Natriuret Pep (0-1800) pg/ml Total Protein (6.4-8.2) gm/dl Albumin (3.4-5.0) gm/dl Globulin (2.5-4.0) gm/dl Albumin/Globulin Ratio (0.9-2) Triglycerides (0-150) mg/dl Cholesterol (0-200) mg/dl LDL Cholesterol, Calc mg/dl VLDL Cholesterol, Calc mg/dl HDL Cholesterol mg/dl Cholesterol/HDL Ratio Lipase (73-393) U/L Beta-Hydroxybutyric Acd (0.2-2.81) mg/dl Procalcitonin 0.24 (0-0.5) ng/ml TSH (0.300-4.500) uIu/ml Nasal Screen MRSA (PCR) (Negative) Influenza Type A (PCR) (Neg) Influenza Type B (PCR) (Neg) 03/29/19 03/29/19 03/29/19 Range/Units 16:46 16:46 16:46 WBC (4.8-10.8) K/uL RBC (4.7-6.1) M/uL Hgb (14.0-18.0) g/dL Hct (42-52) % MCV (80-100) fL MCH (25-34) pg MCHC (32-36) g/dL RDW Std Deviation (36.4-46.3) fL RDW Coeff of Ruddy (11.5-14.5) % Plt Count (130-400) K/uL MPV (7.4-10.4) fL Immature Gran % (Auto) % Neut % (Auto) % Lymph % (Auto) % Foard % (Auto) % Eos % (Auto) % Baso % (Auto) % Immature Gran # (Auto) (0.00-0.02) K/uL Neut # (Auto) (1.4-6.5) K/uL Lymph # (Auto) (1.2-3.4) K/uL Foard # (Auto) (0.11-0.59) K/uL Eos # (Auto) (0-0.5) K/uL Baso # (Auto) (0-0.2) K/uL PT 10.3 (9.0-12.0) Seconds INR 1.0 (0.9-1.1) Sodium (136-145) mmol/L Potassium (3.5-5.1) mmol/L Chloride (98-107) mmol/L Carbon Dioxide (21-32) mmol/L Anion Gap (3-11) BUN (7-18) mg/dl Creatinine (0.6-1.4) mg/dl Est Cr Clr Drug Dosing ml/min Est GFR ( Amer) Est GFR (Non-Af Amer) BUN/Creatinine Ratio (10-20) Glucose (70-99) mg/dl POC Glucose (70-99) Estimat Average Glucose Hemoglobin A1c Lactate (0.4-2.0) mmol/L Calcium (8.5-10.1) mg/dl Total Bilirubin (0.2-1) mg/dl AST (15-37) U/L ALT (12-78) U/L Alkaline Phosphatase (45-117) U/L POC Troponin I (0-0.045) ng/ml Troponin I (0-0.045) ng/ml NT-Pro-B Natriuret Pep 251 (0-1800) pg/ml Total Protein (6.4-8.2) gm/dl Albumin (3.4-5.0) gm/dl Globulin (2.5-4.0) gm/dl Albumin/Globulin Ratio (0.9-2) Triglycerides (0-150) mg/dl Cholesterol (0-200) mg/dl LDL Cholesterol, Calc mg/dl VLDL Cholesterol, Calc mg/dl HDL Cholesterol mg/dl Cholesterol/HDL Ratio Lipase (73-393) U/L Beta-Hydroxybutyric Acd (0.2-2.81) mg/dl Procalcitonin (0-0.5) ng/ml TSH 1.240 (0.300-4.500) uIu/ml Nasal Screen MRSA (PCR) (Negative) Influenza Type A (PCR) (Neg) Influenza Type B (PCR) (Neg) 03/29/19 03/29/19 Range/Units 16:46 16:46 WBC 16.28 H (4.8-10.8) K/uL RBC 4.09 L (4.7-6.1) M/uL Hgb 12.9 L (14.0-18.0) g/dL Hct 37.8 L (42-52) % MCV 92.4 (80-100) fL MCH 31.5 (25-34) pg MCHC 34.1 (32-36) g/dL RDW Std Deviation 49.0 H (36.4-46.3) fL RDW Coeff of Ruddy 14.4 (11.5-14.5) % Plt Count 261 (130-400) K/uL MPV 10.3 (7.4-10.4) fL Immature Gran % (Auto) 3.7 % Neut % (Auto) 57.1 % Lymph % (Auto) 26.9 % Foard % (Auto) 9.6 % Eos % (Auto) 2.3 % Baso % (Auto) 0.4 % Immature Gran # (Auto) 0.61 H (0.00-0.02) K/uL Neut # (Auto) 9.29 H (1.4-6.5) K/uL Lymph # (Auto) 4.38 H (1.2-3.4) K/uL Foard # (Auto) 1.57 H (0.11-0.59) K/uL Eos # (Auto) 0.37 (0-0.5) K/uL Baso # (Auto) 0.06 (0-0.2) K/uL PT (9.0-12.0) Seconds INR (0.9-1.1) Sodium 137 (136-145) mmol/L Potassium 3.8 (3.5-5.1) mmol/L Chloride 101 (98-107) mmol/L Carbon Dioxide 24 (21-32) mmol/L Anion Gap 12.0 H (3-11) BUN 20 H (7-18) mg/dl Creatinine 1.32 (0.6-1.4) mg/dl Est Cr Clr Drug Dosing 47.9 ml/min Est GFR ( Amer) 58.2 Est GFR (Non-Af Amer) 50.2 BUN/Creatinine Ratio 15.0 (10-20) Glucose 316 H* (70-99) mg/dl POC Glucose (70-99) Estimat Average Glucose Hemoglobin A1c Lactate (0.4-2.0) mmol/L Calcium 8.8 (8.5-10.1) mg/dl Total Bilirubin 0.4 (0.2-1) mg/dl AST 16 (15-37) U/L ALT 39 (12-78) U/L Alkaline Phosphatase 84 (45-117) U/L POC Troponin I (0-0.045) ng/ml Troponin I 0.037 (0-0.045) ng/ml NT-Pro-B Natriuret Pep (0-1800) pg/ml Total Protein 5.9 L (6.4-8.2) gm/dl Albumin 2.8 L (3.4-5.0) gm/dl Globulin 3.1 (2.5-4.0) gm/dl Albumin/Globulin Ratio 0.9 (0.9-2) Triglycerides (0-150) mg/dl Cholesterol (0-200) mg/dl LDL Cholesterol, Calc mg/dl VLDL Cholesterol, Calc mg/dl HDL Cholesterol mg/dl Cholesterol/HDL Ratio Lipase 311 (73-393) U/L Beta-Hydroxybutyric Acd 3.22 H (0.2-2.81) mg/dl Procalcitonin (0-0.5) ng/ml TSH (0.300-4.500) uIu/ml Nasal Screen MRSA (PCR) (Negative) Influenza Type A (PCR) (Neg) Influenza Type B (PCR) (Neg) Medications Administered Current Inpatient Medications Acetaminophen (Tylenol) 650 mg PO Q4H PRN PRN Reason: Pain or Fever Stop: 04/28/19 19:27 Albuterol (Ventolin Hfa) 2 puffs INH Q4H PRN PRN Reason: Shortness Of Breath Stop: 04/28/19 19:27 Arformoterol Tartrate (Brovana Neb) 15 mcg INH Q12R MIQUEL Stop: 04/28/19 19:59 Last Admin: 03/30/19 07:03 Dose: 15 mcg Documented by: Atenolol (Tenormin) 12.5 mg PO BID MIQUEL Stop: 04/29/19 08:59 Last Admin: 03/30/19 08:07 Dose: 12.5 mg Documented by: Benzonatate (Tessalon Perle) 100 mg PO TID [facility]QUEL Stop: 04/29/19 13:59 Last Admin: 03/30/19 12:48 Dose: Not Given Documented by: Cyanocobalamin (Vitamin B-12) 1,000 mcg PO QAM [facility] Stop: 04/29/19 08:59 Last Admin: 03/30/19 08:06 Dose: 1,000 mcg Documented by: Dextrose (Dextrose 50%) 25 - 50 ml IV UD PRN; Protocol PRN Reason: Hypoglycemia Protocol Stop: 04/28/19 19:50 Diphenhydramine HCl (Benadryl) 25 mg IV Q6H PRN PRN Reason: Allergic Reaction Stop: 04/28/19 21:14 Escitalopram Oxalate (Lexapro Tab) 10 mg PO QAM [facility] Stop: 04/29/19 08:59 Last Admin: 03/30/19 08:08 Dose: 10 mg Documented by: Ferrous Sulfate (Feosol) 325 mg PO BIDM [facility] Stop: 04/29/19 07:59 Last Admin: 03/30/19 08:06 Dose: 325 mg Documented by: Fluticasone Propionate (Flonase) 2 sprays VERONICA QAM [facility] Stop: 04/29/19 08:59 Last Admin: 03/30/19 08:08 Dose: Not Given Documented by: Furosemide (Lasix) 20 mg PO BID17 [facility] Stop: 04/28/19 20:59 Last Admin: 03/30/19 08:07 Dose: 20 mg Documented by: Glucagon (Glucagen) 1 mg SQ UD PRN; Protocol PRN Reason: Hypoglycemia Protocol Stop: 04/28/19 19:50 Glucose (Glucose 40%) 15 - 30 gm PO UD PRN; Protocol PRN Reason: Hypoglycemia Protocol Stop: 04/28/19 19:50 Glucose (Dex4 Glucose) 4 - 8 tabs PO UD PRN; Protocol PRN Reason: Hypoglycemia Protocol Stop: 04/28/19 19:50 Sodium Chloride (Nss 1000ml) 1,000 mls @ 80 mls/hr IV .[id number] [facility] Stop: 03/30/19 18:00 Last Admin: 03/30/19 08:13 Dose: 80 mls/hr Documented by: Piperacillin Sod/Tazobactam (Sod 3.375 gm/ Dextrose) 115 mls @ 28.75 mls/hr IV Q8H [facility]; Protocol Stop: 04/01/19 03:59 Last Admin: 03/30/19 11:27 Dose: 28.8 mls/hr Documented by: Linezolid (Zyvox) 600 mg in 300 mls @ 200 mls/hr IV Q12 [facility] Stop: 03/31/19 20:59 Last Infusion: 03/30/19 09:44 Dose: Infused Documented by: Insulin Aspart (Novolog Flexpen) 0 units SC ACHS [facility] Stop: 04/29/19 07:29 Last Admin: 03/30/19 11:56 Dose: 5 units Documented by: Levothyroxine Sodium (Synthroid) 37.5 mcg PO Q2D@0630 [facility] Stop: 04/29/19 06:29 Last Admin: 03/30/19 06:01 Dose: 37.5 mcg Documented by: Levothyroxine Sodium (Synthroid) 75 mcg PO Q2D@0630 [facility] Stop: 04/30/19 06:29 Magnesium Oxide (Mag-Ox) 400 mg PO BID [facility] Stop: 04/28/19 20:59 Last Admin: 03/30/19 08:07 Dose: 400 mg Documented by: Miscellaneous (Order Awaiting Action) 1 ea N/A QS [facility] Stop: 04/28/19 20:29 Last Admin: 03/30/19 08:08 Dose: Not Given Documented by: Miscellaneous (Carbohydrates For Hypoglycemia) 15 - 30 gm PO UD PRN PRN Reason: Hypoglycemia Treatment Stop: 04/28/19 19:50 Miscellaneous Information (Consult) 1 ea N/A UD PRN PRN Reason: Consult Stop: 04/28/19 19:40 Multivitamins/Minerals (Multivitamin W/ Minerals Tab) [facility]: 04/29/19 08:59 Last Admin: 03/30/19 08:06 Dose: 1 tab Documented by: Nitroglycerin (Nitrostat) 0.4 mg SL UD PRN PRN Reason: Chest Pain Stop: 04/28/19 19:27 Polyethylene Glycol (Miralax Powder Packet) 17 gm PO DAILY PRN PRN Reason: Constipation Stop: 04/28/19 19:27 Prednisone (Prednisone) 10 mg PO QAM [facility] Stop: 04/29/19 08:59 Last Admin: 03/30/19 08:07 Dose: 10 mg Documented by: Rivaroxaban (Xarelto) 20 mg PO QPM [facility] Stop: 04/28/19 20:59 Last Admin: 03/29/19 21:39 Dose: 20 mg Documented by: Simvastatin (Zocor) 80 mg PO [facility] Stop: 04/28/19 20:59 Last Admin: 03/29/19 21:40 Dose: 80 mg Documented by: Vitamin D (Vitamin D3) 2,000 units PO [facility] Stop: 04/28/19 20:59 Last Admin: 03/29/19 21:41 Dose: 2,000 units Documented by: Zolpidem Tartrate (Ambien) 5 mg PO HS PRN PRN Reason: Sleep Stop: 04/28/19 19:27 PG Care Time/CCT Total # of Minutes Spent Total Time Spent with Patient: Total time spent is greater than 50% in coordination of care (as documented) at patient's floor/unit and/or counseling patient: Prolonged Care Time Prolonged Care Time: Yes Total Prolonged Care Time: 40 Resident Activity Tracking Resident Involvement: Resident Care Provided Care Provided: Adult Hospital Medicine Critical Care Time Prolonged Care Time Prolonged Care Time: Yes Total Prolonged Care Time: 40 time in 1250p, time out 130p (1) Chest pain Chest pain type: unspecified Qualified Code(s): R07.9 - Chest pain, unspecified
[2019-03-30 10:46] LABS: Influenza A virus by PCR Neg for Influ A (Neg); Influenza B virus by PCR Neg for Influ B (Neg)
[2019-03-30] MEDS: BENZONATATE 100 MG CAPSULE PO SCH ×2 (12:48→19:57)
[2019-03-30] MEDS ORDERED: IOVERSOL 100ml IV PRN (16:39)
--- NOTE | 2019-03-30 16:57 | CT Scan Report ---
CT chest w con CLINICAL HISTORY: 79 years-old Male presenting with weakness, leukocytosis. ?occult pneumonia, ?nodu l. TECHNIQUE: Multidetector CT imaging of the chest was performed after the administration of intravenou s contrast. IV contrast: 94 mL of Optiray 320. One or more dose lowering techniques were used consist ent with the principles of ALARA (as low as reasonably achievable), including automatic exposure cont rol, mA or kV adjustment to individual patient size, and/or use of iterative reconstruction. COMPARISON: CTA chest from 09/30/2018. CT DOSE (mGy.cm): The estimated cumulative dose is 821.96 mGy.cm. FINDINGS: [employer] Tester topogram: Surgical clips in the pelvis likely indicate a history of prostatectomy. Soft tissues: Normal thyroid and thoracic inlet. No axillary, supraclavicular, mediastinal, or hilar lymphadenopathy. Atherosclerosis of the aorta. Multichamber enlargement of the heart. Coronary artery and aortic valve calcification. Trace right pleural effusion. Hepatic steatosis. Lungs and airways: No pneumothorax. Mild bronchial wall thickening in the lower lobes right greater t melendez left. Dependent consolidation in the right lower lobe as well as bandlike opacities likely atelec tasis and/or scarring. Pulmonary arteries are not significantly enlarged relative to adjacent bronchi . No interlobular septal thickening. No focal nodule. Musculoskeletal: Degenerative changes of the spine. IMPRESSION: 1. Chronic trace right pleural effusion with right basilar atelectasis and/or scarring. No convincin g evidence of acute intrathoracic pathology. 2. Bronchial wall thickening consistent with bronchitis, which is also chronic. Electronically signed by: Timothy Barry M.D. 03/30/2019 4:55 PM
--- NOTE | 2019-03-30 17:09 | CT Scan Report ---
CT abd pelvis oral and IV con CLINICAL HISTORY: 79 years-old Male presenting with abdominal pain, anorexia. TECHNIQUE: Multidetector CT of the abdomen and pelvis was performed after the administration of oral and intravenous contrast. IV contrast: 94 mL of Optiray 320. One or more dose lowering techniques wer e used consistent with the principles of ALARA (as low as reasonably achievable), including automatic exposure control, mA or kV adjustment to individual patient size, and/or use of iterative reconstruc tion. COMPARISON: 08/14/2018. CT DOSE (mGy.cm): The estimated cumulative dose is 821.96. FINDINGS: Paper Pattern Folder topogram: Surgical clips in the pelvis likely indicate a history of prostatectomy. Lung bases: Multichamber enlargement of the heart. Coronary artery, aortic valve, and mitral annular calcification. Trace right pleural effusion and/or pleural thickening. Unchanged bandlike and depende nt consolidation in the right lower lobe consistent with scarring. Bronchial wall thickening evident. Paucity of vasculature may indicate emphysema or obliterative bronchiolitis. Liver: Normal morphology. Density suggestive of hepatic steatosis. No focal lesion. Patent hepatic va sculature. Biliary: No intrahepatic or extrahepatic biliary ductal dilatation. Normal gallbladder. Pancreas: Normal. Spleen: Normal. Adrenal glands: Normal. Kidneys and ureters: Several lesions likely representing cysts though some too small to characterize. No nephrolithiasis or hydronephrosis. Mild perinephric fat infiltration, which is fairly symmetric. Ureters nondistended. Bladder: Normal. Pelvic organs: Postsurgical changes of prostatectomy. Bowel: Normal appendix. No bowel obstruction. Peritoneal cavity: No free fluid or intraperitoneal gas. Lymph nodes: No enlarged lymph nodes in the abdomen or pelvis. Vasculature: Atherosclerosis of the normal caliber abdominal aorta. IVC patent. Abdominal wall: Fat-containing left inguinal hernia. Postsurgical changes of the lower abdominal wall . Musculoskeletal: Degenerative changes of the spine. IMPRESSION: 1. No acute intra-abdominal pathology. 2. Post surgical changes of prostatectomy. 3. Suspected hepatic steatosis. 4. Chronic scarring and pleural thickening and/or trace fluid at the right lung base. 5. Bronchial wall thickening is chronic indicative of a nonspecific bronchitis, possibly smoking-rel ated. 6. Paucity of vasculature at the left lung base could indicate underlying emphysema or obliterative bronchiolitis. Electronically signed by: Timothy Barry M.D. 03/30/2019 5:08 PM
[2019-03-30] MEDS ORDERED: INSULIN HUMAN REGULAR IV BOLUS 5 UNITS in SYRINGE 0 ML IV STA (19:10)
[2019-03-30] MEDS: POLYETHYLENE (MIRALAX) 17 GM PACK PO SCH (19:13)
[2019-03-30] MEDS: SIMVASTATIN 80 MG TAB PO SCH (19:58)
[2019-03-30] MEDS: RIVAROXABAN 20 MG TAB PO SCH (19:58)
[2019-03-30] MEDS: CHOLECALCIFEROL 1,000 UNITS TAB PO SCH (19:59)
[2019-03-31] MEDS: INSULIN ASPART 100 UNITS/ML 3 ML PEN SC SCH ×6 (00:49→20:41)
[2019-03-31] MEDS: PIPERACILLIN/TAZOBACTAM 3.375 GM in DEXTROSE 5% 100 ML IV SCH (04:00)
[2019-03-31] MEDS ORDERED: LEVOTHYROXINE SODIUM 75 MCG TABLET PO SCH (06:30)
[2019-03-31 06:36] LABS: Estimated Average Glucose 237 mg/dl; Hemoglobin A1C 9.9 % (4.5-5.6)
[2019-03-31 06:59] LABS: Basophils # (auto) 0.04 K/uL (0-0.2); Basophils % (auto) 0.4 %; Eosinophils # (auto) 0.46 K/uL (0-0.5); Eosinophils % (auto) 4.4 %; Hemoglobin 11.3 g/dL (14.0-18.0); Immature Granulocytes # (auto) 0.42 K/uL (0.00-0.02); Lymphocytes # (auto) 2.88 K/uL (1.2-3.4); Lymphocytes % (auto) 27.7 %; Mean Corpuscular Hgb Conc 33.2 g/dL (32-36); Mean Corpuscular Volume 92.9 fL (80-100); Mean Platelet Volume 10.6 fL (7.4-10.4); Monocytes # (auto) 1.19 K/uL (0.11-0.59); Monocytes % (auto) 11.4 %; Neutrophils # (auto) 5.42 K/uL (1.4-6.5); Neutrophils % (auto) 52.1 %; Platelet Count 198 K/uL (130-400); RDW Coefficient of Variation 14.5 % (11.5-14.5); RDW Standard Deviation 48.9 fL (36.4-46.3); Red Blood Count 3.66 M/uL (4.7-6.1); White Blood Count 10.41 K/uL (4.8-10.8)
[2019-03-31] MEDS: ARFORMOTEROL TART 15MCG/2ML VIAL INH SCH ×2 (07:03→19:12)
[2019-03-31 07:35] LABS: Albumin Level 2.5 gm/dl (3.4-5.0); BUN Creatinine Ratio 12.5 (10-20); Calcium 8.4 mg/dl (8.5-10.1); Creatinine Clr Calc Pharmacy 49.2 ml/min; Est GFR (African American) 61.6; Est GFR (Non-African American) 53.1; Potassium 3.7 mmol/L (3.5-5.1)
[2019-03-31 07:37] LABS: Albumin Globulin Ratio 0.8 (0.9-2); Bilirubin,Total 0.5 mg/dl (0.2-1); Globulin 3.1 gm/dl (2.5-4.0); Total Protein 5.6 gm/dl (6.4-8.2)
[2019-03-31] MEDS: MAGNESIUM OXIDE 400 MG TAB PO SCH ×2 (08:15→20:33)
[2019-03-31] MEDS: FERROUS SULFATE 325 MG TAB PO SCH ×2 (08:16→17:14)
[2019-03-31] MEDS: BENZONATATE 100 MG CAPSULE PO SCH ×3 (08:16→20:33)
[2019-03-31] MEDS: FLUTICASONE PROPIONATE NA SPR 16 GM BTL NAE SCH (08:19)
[2019-03-31] MEDS: predniSONE 10 MG TABLET PO SCH (08:19)
[2019-03-31] MEDS: CYANOCOBALAMIN 500 MCG TABLET (VITAMIN B-12) PO SCH (08:19)
[2019-03-31] MEDS: CEROVITE ADV FORMULA TAB PO SCH (08:20)
[2019-03-31] MEDS: POLYETHYLENE (MIRALAX) 17 GM PACK PO SCH (08:21)
[2019-03-31] MEDS: ATENOLOL 25 MG TABLET PO SCH ×2 (11:51→20:37)
[2019-03-31] MEDS: ESCITALOPRAM OXALATE 10 MG TAB PO SCH (11:56)
[2019-03-31] MEDS: FUROSEMIDE 20 MG TAB PO SCH (17:14)
--- NOTE | 2019-03-31 17:47 | Family Medicine Progress Note ---
Date of Service March 31, 2019 Assessment & Plan (1) Chest pain: 79yo male with history of AF, HTN, HLD, DM, COPD/asbestosis, GERD, diastolic CHF who presented to ED with worsening fatigue/weakness and dyspnea on exertion. H/o recent weight loss (20lbs in last several months) and chronic/wo rsening fatigue. Review of most recent medical records shows: Recent hospital admission in [facility] for weakness and SLOAN in January 2019: -CT chest with small b/l pleural eff, and multiple pulmonary nodules up to 7mm, repeat rec in 3-6 mo. He was treated for COPD exacerbation with IV steroids, then PO steroid taper. -A1C was 10.3. Hyperglycemia noted, 400s. -TTE done and showed mild conc LVH, EF 65%, LA mild dilated. Very small pericardial effusion. -mild troponin elev to 0.1 thought to be 2/2 demand ischemia. -Anemia - FOBT was +, hgb 10.6 on discharge - received IV Fe transfusions, and given PO. Not deficient in B12 or folic acid. -thought to also have acute/chronic HFpEF - treated with IV lasix. No supplemental O2 needed. - also seen by PCP for TCM and then Pulmonology last week - concern for worsening anorexia/weakness and fatigue. Discussion was had to pursue PET CT imaging to look for occult malignancy to explain the anorexia and weakness. Fatigue Appears to be a multifactorial syndrome involving chronic deconditioning from his cardiopulmonary disease and lack of proper nutrition Dyspnea on exertion in the setting of possible septic picture leukocytosis on admission/ lac 4.0 / and SLOAN -was treated empirically for HCAP given recent hospital admission in January (in [facility] see above) has remained afebrile here, and per no fevers x 1 week prior to admission Procal is negative. was actually on a course of abx upon admission, as well as prednisone for COPD f lare - which may very well explain the leukocytosis CT chest negative - Discontinued Zosyn/Zyvox Resumed lexapro Cough is much improved Elevated Troponin - 0.037 -> 0.056 -> 0.048 with stable EKG and repeat TTE here shows stable HFpEF - unlikely cardiac cause possibly secondary to dehydration - AFIB with no acute issues as below Abdominal Pain, Poor Appetite - colonoscopy Sep 2016 showed diverticulosis and nonbleeding hemorrhoids. EGD Sep 2016 showed normal esophagus and small hiatal hernia. - h/o kidney stones/renal colic - CT a/p normal - constipation remains on the differential given clinical picture of overflow diarrhea. CT as above. - add Boost Deconditioning and Anorexia Secondary to recent hospitalizations and decreased PO intake patient is very weak and will likely need to rehab at inpatient facility No evidence of neoplasia on Chest and a/p CT FEN/GI: heart healthy/T2DM, nutrition supplement (Boost) DVT ppx: on xarelto QPM CODE STATUS: FULL - although pt states he would only like "one shot" at cardiac resuscitation and intubation, which seems to mean he would not want prolonged resuscitative efforts. He says knows his wishes. DISPO: tele Other ongoing medical problems: COPD -continue inhalers - continue home 10mg prednisone dosing - apparently takes this everyday acc to o utpatient records. AFIB - cont home atenolol BID - on xarelto HLD - cont home simvastatin 80mg HFpEF - cont home lasix BID once fluids completed. - apparently intolerant of metoprolol, follows with [facility]. Anemia - baseline appears to be 11-13, is at baseline. - cont home Fe T2DM - ISS, hold home metformin Hypothyroidism - no acute issues - TSH 1.24 on 10Aug. - cont home levothyroxine Depression - escitalopram HELD while on linezolid as is contraindicated due to HIGH risk of serotonin syndrome. Supervising Physician Co-Signing Physician Notes ATTENDING NOTE I saw the patient with the resident physician and confirmed pleitez portions of the history and exam. I agree with the impression and plan as noted above. The patient tells us he is feeling better - he feels a little stronger today and reports ambulating in the [place] way. He denies chest pain, shortness of breath. He remains hemodynamically stable and afebrile. Cultures continue to be negative.; while lactic acid elevated, procalcitonin normal and no evidence of infection. Suspect mild leukocytosis could be secondary to prednisone. PLAN 1) Discontinue antibiotics. 2) Move to medical floor 3) PT/OT 4) TSH and Free T4 - it looks as if his Synthroid dose was changed in September. 5) Will need case management to look at placement options, and this will be based in part on PT/OT input. Subjective Patient tells me he is feeling much better. Says he has been drinking more and he has more of an appetite. No other complaints at this time. Review of Systems Review of Systems: All systems reviewed & are unremarkable except as noted in HPI & below Physical Exam Physical Exam: Constitutional: Patient 79-year-old man appears stated age resting comfortably in the bed, no acute distress Eyes: Anicteric sclera extraocular muscle motions intact bilaterally Respiratory: Chest expansion is symmetric, no wheezes rhonchi rales, breath sounds vesicular in all lung art Cardiovascular: Patient is bradycardic but in sinus rhythm, S1-S2 normal no murmurs rubs skips or gallops Abdomen: Abdomen soft nontender no masses detected, no organomegaly Skin: No new skin lesions detected Results & Data Vital Signs (Past 12 Hours) Vital Signs Temp Pulse Pulse Resp BP BP Pulse Ox 03/31/19 16:43 54 L 03/31/19 15:47 36.7 C 64 21 111/66 95 03/31/19 12:28 36.5 C 62 20 100/63 96 03/31/19 08:00 54 L 03/31/19 07:04 36.6 C 58 L 19 96/60 L 94 03/31/19 07:03 57 L 16 95 PG Care Time/CCT Total # of Minutes Spent Total Time Spent with Patient: Total time spent is greater than 50% in coordination of care (as documented) at patient's floor/unit and/or counseling patient: Resident Activity Tracking Resident Involvement: Resident Care Provided Care Provided: Adult Hospital Medicine (1) Chest pain Chest pain type: unspecified Qualified Code(s): R07.9 - Chest pain, unspecified
[2019-03-31 18:42] LABS: T4 Free Thyroxine 1.14 ng/dl (0.8-1.6)
[2019-03-31] MEDS: SIMVASTATIN 80 MG TAB PO SCH (20:34)
[2019-03-31] MEDS: CHOLECALCIFEROL 1,000 UNITS TAB PO SCH (20:34)
[2019-03-31] MEDS: RIVAROXABAN 20 MG TAB PO SCH (20:34)
[2019-04-01] MEDS: LEVOTHYROXINE SODIUM 75 MCG TABLET PO SCH (06:04)
[2019-04-01] MEDS: ARFORMOTEROL TART 15MCG/2ML VIAL INH SCH (07:37)
[2019-04-01 07:41] LABS: Basophils # (auto) 0.03 K/uL (0-0.2); Basophils % (auto) 0.3 %; Eosinophils # (auto) 0.37 K/uL (0-0.5); Eosinophils % (auto) 3.2 %; Hematocrit (blood only) 33.9 % (42-52); Hemoglobin 11.5 g/dL (14.0-18.0); Immature Granulocytes # (auto) 0.47 K/uL (0.00-0.02); Lymphocytes # (auto) 3.43 K/uL (1.2-3.4); Lymphocytes % (auto) 29.3 %; Mean Corpuscular Hgb Conc 33.9 g/dL (32-36); Mean Corpuscular Volume 92.6 fL (80-100); Mean Platelet Volume 10.1 fL (7.4-10.4); Monocytes # (auto) 1.35 K/uL (0.11-0.59); Monocytes % (auto) 11.5 %; Neutrophils # (auto) 6.06 K/uL (1.4-6.5); Neutrophils % (auto) 51.7 %; Platelet Count 219 K/uL (130-400); RDW Coefficient of Variation 14.9 % (11.5-14.5); RDW Standard Deviation 50.2 fL (36.4-46.3); Red Blood Count 3.66 M/uL (4.7-6.1); White Blood Count 11.71 K/uL (4.8-10.8)
[2019-04-01 08:13] LABS: Albumin Level 2.6 gm/dl (3.4-5.0); BUN Creatinine Ratio 16.2 (10-20); Calcium 8.6 mg/dl (8.5-10.1); Creatinine Clr Calc Pharmacy 52.6 ml/min; Est GFR (African American) 67.4; Est GFR (Non-African American) 58.1; Potassium 3.9 mmol/L (3.5-5.1)
[2019-04-01 08:16] LABS: Albumin Globulin Ratio 0.8 (0.9-2); Bilirubin,Total 0.3 mg/dl (0.2-1); Globulin 3.2 gm/dl (2.5-4.0); Total Protein 5.8 gm/dl (6.4-8.2)
[2019-04-01] MEDS: BENZONATATE 100 MG CAPSULE PO SCH (08:18)
[2019-04-01] MEDS: CYANOCOBALAMIN 500 MCG TABLET (VITAMIN B-12) PO SCH (08:18)
[2019-04-01] MEDS: MAGNESIUM OXIDE 400 MG TAB PO SCH (08:18)
[2019-04-01] MEDS: ATENOLOL 25 MG TABLET PO SCH (08:18)
[2019-04-01] MEDS: FERROUS SULFATE 325 MG TAB PO SCH (08:19)
[2019-04-01] MEDS: ESCITALOPRAM OXALATE 10 MG TAB PO SCH (08:19)
[2019-04-01] MEDS: predniSONE 10 MG TABLET PO SCH (08:19)
[2019-04-01] MEDS: FUROSEMIDE 20 MG TAB PO SCH (08:19)
[2019-04-01] MEDS: FLUTICASONE PROPIONATE NA SPR 16 GM BTL NAE SCH (08:19)
[2019-04-01] MEDS: CEROVITE ADV FORMULA TAB PO SCH (08:19)
[2019-04-01] MEDS: POLYETHYLENE (MIRALAX) 17 GM PACK PO SCH (08:20)
[2019-04-01] MEDS: INSULIN ASPART 100 UNITS/ML 3 ML PEN SC SCH ×2 (09:19→12:59)
--- NOTE | 2019-04-01 21:22 | Discharge Summary ---
Date of Service April 01, 2019 Admission HPI Per Admitting Provider 79 years old patient is 79 years old male with past medical history coronary artery disease, COPD emphysema, hyperlipidemia, hypertension, prostate malignancy, GERD, hypothyroidism, anxiety, depression, diastolic congestive heart failure atrial fibrillation on Xarelto, diabetes mellitus type 2, anemia presents to the emergency room with a complaint of chest pain and chest tightness that started today approximately 2 to 3 hours ago. Patient was at rest when chest pain started and he was not doing in particular any activity. The chest pain was located middle of his chest and it was radiating to his left arm. Patient said that he felt his heart is racing. Patient states cardiac ablation of typical right atrial isthmus dependent flutter, electrical anatomical mapping using roving catheter, arrhythmia induction with burst atrial pacing September 2018. The procedure was done by Dr. Artis Sorenson. Patient has frequent visits to the hospital she has frequent visits to the hospital and the most recent one was on March 26. In the past 90 days patient was [facility], [facility] where he was seen for acute exacerbation of diastolic congestive heart failure, COPD exacerbation, elevated troponins, anemia. Patient denies headache fever chills chest pain at the present time shortness of breath abdominal pain urgency frequency hemoptysis hematuria or changes in his bowel, nausea vomiting. Labs were reviewed were reviewed cell count 16.28 with a left shift hemoglobin 12.9 hematocrit 37.8 platelets 261, troponin 0 0.07 elevated, urine cloudy with elevated specific gravity and glycosuria trace ketones. Negative for urine nitrates and leukocyte esterase. White blood cell count in urine normal. Chest x-rays cardiomegaly emphysema with no acute cardiopulmonary abnormalities. 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 The case was discussed and patient is admitted for observation on telemetry to rule out acute coronary syndrome and to determine the reason for mild leukocytosis and tachycardia. Admission Exam Per Admitting Provider Constitutional: WD/WN, vitals as above well developed and + frail appearing Eyes: PERRL, conjunctivae normal, anicteric sclerae ENMT: external ear and nose normal, oropharynx normal Neck: trachea midline, no thyromegaly Respiratory: + hyperresonance to percussion and + prolonged expiratory phase Cardiovascular: Rate/Rhythm: regular rate and + tachycardic Heart Sounds: normal S1, normal S2 and + murmur Palpation: + palpable S3 Vessels: + bounding carotid pulses Chest (Breasts): normal inspection/palpation of breasts Gastrointestinal (Abdomen): normal bowel sounds, soft, nontender, no hepatosplenomegaly Musculoskeletal: no cyanosis or clubbing, extremities motor strength 5/5 Skin: no rashes, warm and dry Neurologic: patellar DTR's 2+ bilat, sensation intact Psychiatric: A+Ox3, euthymic affect Lymphatic: no cervical or axillary lymphadenopathy Principal Diagnosis Failure to thrive Discharge Exam Constitutional: Patient 79-year-old man appears stated age resting comfortably in the bed, no acute distress Eyes: Anicteric sclera extraocular muscle motions intact bilaterally Respiratory: Chest expansion is symmetric, no wheezes rhonchi rales, breath sounds vesicular in all lung art Cardiovascular: Patient is bradycardic but in sinus rhythm, S1-S2 normal no murmurs rubs skips or gallops Abdomen: Abdomen soft nontender no masses detected, no organomegaly Skin: No new skin lesions detected Discharge Data Allergies Allergy/AdvReac Type Severity Reaction Status Date / Time moxifloxacin Allergy Severe throat Verified 03/29/19 17:54 swelling ofloxacin Allergy Severe SWELLING Verified 03/29/19 17:54 AROUND FACE Quinolones Allergy Severe ANAPHYLAXIS Verified 03/29/19 17:55 formoterol Allergy Intermediate RASH Verified 03/29/19 17:55 metoprolol Allergy Intermediate RASH Verified 03/29/19 17:55 Sulfa (Sulfonamide Allergy Intermediate severe red Verified 03/29/19 17:55 Antibiotics) rash Consultations 03/29/19 17:39 ED Decision to Admit Stat 03/30/19 14:41 Consult Case Management - Discharge Planning Routine Ordered Studies 03/30/19 13:37 CT abd pelvis oral and IV con Routine 03/30/19 14:53 CT chest w con Routine Hospital Course (1) Chest pain: 79yo male with history of AF, HTN, HLD, DM, COPD/asbestosis, GERD, diastolic CHF who presented to ED with worsening fatigue/weakness and dyspnea on exertion. H/o recent weight loss (20lbs in last several months) and chronic/worsening fatigue. Review of most recent medical records shows: Recent hospital admission in [place] for weakness and SLOAN in January 2019: -CT chest with small b/l pleural eff, and multiple pulmonary nodules up to 7mm, repeat rec in 3-6 mo. He was treated for COPD exacerbation with IV steroids, then PO steroid taper. -A1C was 10.3. Hyperglycemia noted, 400s. -TTE done and showed mild conc LVH, EF 65%, LA mild dilated. Very small pericardial effusion. -mild troponin elev to 0.1 thought to be 2/2 demand ischemia. -Anemia - FOBT was +, hgb 10.6 on discharge - received IV Fe transfusions, and given PO. Not deficient in B12 or folic acid. -thought to also have acute/chronic HFpEF - treated with IV lasix. No supplemental O2 needed. - also seen by PCP for TCM and then Pulmonology last week - concern for worsening anorexia/weakness and fatigue. Discussion was had to pursue PET CT imaging to look for occult malignancy to explain the anorexia and weakness. Fatigue Appears to be a multifactorial syndrome involving chronic deconditioning from his cardiopulmonary disease and lack of proper nutrition, will need intensive rehabilitation, declined inpatient therapy, sent patient home with outpatient PT/OT. Encouraged to eat better, educated patient on necessary caloric intake and getting enough to eat and drink. Dyspnea on exertion in the setting of possible septic picture leukocytosis on admission/ lac 4.0 / and SLOAN -was treated empirically for HCAP given recent hospital admission in January (in [facility] see above) has remained afebrile here, and per no fevers x 1 week prior to admission Procal is negative. was actually on a course of abx upon admission, as well as prednisone for COPD flare - which may very well explain the leukocytosis CT chest negative - Discontinued Zosyn/Zyvox Resumed lexapro Cough is much improved Elevated Troponin - 0.037 -> 0.056 -> 0.048 with stable EKG and repeat TTE here shows stable HFpEF - unlikely cardiac cause possibly secondary to dehydration - AFIB with no acute issues as below rate controlled and on xarelto Abdominal Pain, Poor Appetite - colonoscopy Sep 2016 showed diverticulosis and nonbleeding hemorrhoids. EGD Sep 2016 showed normal esophagus and small hiatal hernia. - h/o kidney stones/renal colic - CT a/p normal - Encouraging Boost Deconditioning and Anorexia Secondary to recent hospitalizations and decreased PO intake patient is very weak and will likely need to rehab at inpatient facility No evidence of neoplasia on Chest and a/p CT COPD No change to outpatient regime, respiratory status stable throughout admission AFIB Atenolol and xarelto, no changes to home regime HLD - cont home simvastatin 80mg HFpEF - cont home lasix BID - apparently intolerant of metoprolol, follows with [facility]. Anemia - baseline appears to be 11-13, is at baseline. - cont home Fe T2DM Held metformin while inpatient, was on sliding scale resume home metformin Hypothyroidism - no acute issues - TSH 1.24 on 10Aug. - cont home levothyroxine Depression - escitalopram HELD while on linezolid as is contraindicated due to HIGH risk of serotonin syndrome, restarted when antibiotics were stopped Total Time Total Time Spent Total Time Spent (In Minutes): 30 Discharge Plan Discharge Items Patient Disposition: Home - Self-Care Reason For Visit: CHEST PAIN Discharge Diagnosis: Weakness/Failure to Thrive Discharge Goals: Improve function and Improve nutritional status Activity: Resume your previous activity Non-emergency contact: Primary Care Provider Call non-emergency contact if: your symptoms worsen and you have a fever Follow-up/Referrals: Howard Gunderson MD [Primary Care Provider] - 04/04/19 3:00 pm (Please, follow up at Dr. Gunderson's office with his assistant paralegal, Concha Marques PA-C, on SundayApril 04 at 3:00 pm. *If you need to change this appointment, call their office at [phone].) Diet: Carb Consistent or DM2 Addtl Provider Instructions: Mr. Gibson, after having you here at [facility] for your progressive weakness and weight loss we feel you are well enough to go home. You have been evaluated with CT imaging of your chest and abdomen which revealed no abnormalities. Your bloodwork was good, we did not see any acute processes. We do not believe you have an infection of any kind. It is our recommendation you continue to work with your primary care provider to increase your oral intake and prevent further weight loss and weakening. We are sending you home with physical therapy and occupational therapy to help you get stronger and able to accomplish all of your activities of daily living. Prescriptions: Continued metformin 1,000 mg tablet 1,000 mg PO BID Qty: 180 RF: 3 albuterol sulfate 90 mcg/actuation HFA aerosol inhaler 2 puffs INH Q4H PRN (Reason: Shortness Of Breath) RF: 0 fluticasone propionate 50 mcg/actuation spray,suspension 2 sprays INTNAS QAM RF: 0 pantoprazole 40 mg tablet,delayed release (DR/EC) 40 mg PO QAM RF: 0 magnesium 250 mg tablet 250 mg PO BID RF: 0 escitalopram oxalate 10 mg tablet 10 mg PO QAM RF: 0 levothyroxine 75 mcg Tablet 37.5 mcg PO Q OTHER DAY RF: 0 glimepiride 2 mg tablet 3 mg PO QAM RF: 0 simvastatin 80 mg tablet 80 mg PO HS RF: 0 Brovana 15 mcg/2 mL Solution For Nebulization 15 mcg INHALATION Q12H RF: 0 Centrum Silver 0.4-300-250 mg-mcg-mcg Tablet 1 tab PO QAM RF: 0 Tudorza Pressair 400 mcg/actuation Aerosol Powdr Breath Activated 1 puff Inhalation QAM RF: 0 glucosamine-chondroitin [Osteo Bi-Flex] 250-200 mg Tablet 1 tab PO BID RF: 0 cyanocobalamin (vitamin B-12) 1,000 mcg Tablet 1,000 mcg PO QAM RF: 0 cholecalciferol (vitamin D3) 2,000 unit Tablet 2,000 unit PO HS RF: 0 furosemide 20 mg tablet 20 mg PO BID RF: 0 levothyroxine 75 mcg tablet 75 mcg PO Q OTHER DAY RF: 0 ferrous sulfate [iron] 325 mg (65 mg iron) tablet 325 mg PO BID RF: 0 prednisone 10 mg tablet 10 mg PO QAM RF: 0 Xarelto 20 mg Tablet 20 mg PO QPM Qty: 30 RF: 0 Discontinued amoxicillin-pot clavulanate 875-125 mg tablet 1 tab PO .BID X 10DAYS RF: 0 Stand-Alone Forms: [facility]/Other Patient Handouts: Sepsis Dc Discharge Orders: Discharge Order (Routine); Ordered 04/01/19 Ordered By: Jaylan Can Admission Data Admit Date/Time: 03/29/19 20:29 Attending Provider: Benson Cavazos Admit Provider: Kena Shirley Primary Care Provider: Howard Gunderson Other Providers: Kena Shirley Service: Medical Other Interventions: Discharge Summary Assessment (RN) Last Done: 04/01/19 12:36 DC Date/Time DO NOT enter until pt leaves facility: 04/01/19 13:19 Supervising Physician Co-Signing Physician Notes ATTENDING NOTE I saw the patient with the resident physician and confirmed pleitez portions of the history and exam. I agree with the impression and plan as noted above. Physical therapy and occupational notes are reviewed; he looks to be well to return home with outpatient services. He lives with his and has appropriate support at home. The patient feels well enough to return home today. Outpatient follow-up has been arranged. Resident Activity Tracking Resident Involvement: Resident Care Provided Care Provided: Adult [facility]
--- NOTE | 2019-04-02 17:46 | Coding Query ---
CONGESTIVE HEART FAILURE To Promote full compliance with coding requirements relating to patient care, physician participation is requested in all cases of cup setter lockstitch uncertainty. Please assist us with the following questions. A diagnosis of Congestive Heart Failure is documented in the patient's medical record. To accurately code this diagnosis and to compare patient severity, we ask that you specify the type of heart failure by placing an X within the parenthesis (x). SYSTOLIC HEART FAILURE ( ) Acute ( ) Chronic ( ) Acute on Chronic ( ) Rheumatic ( X) Unknown DIASTOLIC HEART FAILURE ( ) Acute ( ) Chronic ( ) Acute on Chronic ( ) Rheumatic ( X) Unknown COMBINED SYSTOLIC AND DIASTOLIC HEART FAILURE ( ) Acute ( ) Chronic ( ) Acute on Chronic ( ) Rheumatic X( ) Unknown Was the CHF Present On Admission? Please check the appropriate box: ( ) Present on Admission (X ) Not Present On Admission ( ) Clinically undetermined Patient has noted history of congestive heart failure in his chart. When I reviewed his most recent echocardiogram he preserved left ventricular function and no evidence of diastolic dysfunction. He may at some point had a rate related failure secondary to his atrial fibrillation, and this was listed and/or coded his congestive heart failure. He did not have signs or symptoms of congestive heart failure upon this admission, nor can I determine answers the above questions based on the available information. Thank you Benja WHITTEN
--- NOTE | 2019-04-02 17:50 | Coding Query ---
CODING QUERY To promote full compliance with coding requirements relating to patient care, provider participation is requested in all cases of remote inpatient coder uncertainty. Please assist us with the question(s) below: Coding Question(s): 79 Year old admitted with fatigue, chest pain and weakness. History emphysema/COPD. SLOAN. DS, progress notes also mention possible septic picture with possible pneumonia. Please document, if known or suspected the diagnosis/reason for admission. Thank you !! Benja Gan [facility] Physician's Response(s): No specific etiology was identified for the patient's symptoms. Outpatient work-up will continue. There is no evidence of infection or pneumonia upon investigation. Please let me know if you need further. Principal Diagnosis: "that condition established after study, to be chiefly responsible for occasioning the admission of the patient to the hospital for care." Co-Existing Principal Diagnosis: "when two or more diagnoses equally meet the criteria for principal diagnosis as determined by the circumstances of admission, diagnostic work up, and/or therapy provided, and the Alphabetic Index, Tabular List, or another coding guideline does not provide sequencing direction, any one of the diagnoses may be sequenced first." "When the physician has documented what appears to be a current diagnosis in the body of the record, but has not included the diagnosis in the final diagnostic statement, the physician should be asked whether the diagnosis should be added." (Source Coding [facility] 2 QTR90. p3-4) MARIA DOLORES
== END 2019-04-01 13:19 | disposition home or self-care (01) | DRG 309 ==
LOC: 2S 16:32 → ED 16:32 → 2S 19:15 → SUATTDRO 20:29 → 3W 03-31 14:15

== ENCOUNTER 2019-04-02 19:36 | Observation (INO) ==
[2019-04-02] MEDS ORDERED: ALBUT/IPRATROP 3MG/0.5MG NEB 3 ML VIAL NEB ONE (20:02)
[2019-04-02] MEDS ORDERED: methylPREDNISolone 60 MG in SYRINGE 1 ML IV STA (20:02)
[2019-04-02] MEDS ORDERED: SODIUM CHLORIDE 0.9% 500 ML IV SCH (20:15)
[2019-04-02 20:19] LABS: Hematocrit (blood only) 36.1 % (42-52); Hemoglobin 12.1 g/dL (14.0-18.0); Mean Corpuscular Hgb Conc 33.5 g/dL (32-36); Mean Corpuscular Volume 92.8 fL (80-100); Mean Platelet Volume 10.6 fL (7.4-10.4); Platelet Count 277 K/uL (130-400); RDW Coefficient of Variation 15.1 % (11.5-14.5); RDW Standard Deviation 50.8 fL (36.4-46.3); Red Blood Count 3.89 M/uL (4.7-6.1); White Blood Count 17.66 K/uL (4.8-10.8)
[2019-04-02 20:27] LABS: Albumin Level 3.4 gm/dl (3.4-5.0); Calcium 9.1 mg/dl (8.5-10.1); Creatinine Clr Calc Pharmacy 43.9 ml/min; Est GFR (African American) 53.8; Est GFR (Non-African American) 46.4; Potassium 3.9 mmol/L (3.5-5.1)
[2019-04-02 20:35] LABS: Bilirubin,Total 0.3 mg/dl (0.2-1); Creatine Kinase MB 3.2 ng/ml (0.5-3.6); Globulin 3.5 gm/dl (2.5-4.0); Total Protein 6.9 gm/dl (6.4-8.2); Troponin I 0.051 ng/ml (0-0.045)
[2019-04-02] MEDS ORDERED: SODIUM CHLORIDE 0.9% 1000ML 500 ML IV ONE (20:38)
[2019-04-02 20:55] LABS: Basophils # (auto) 0.06 K/uL (0-0.2); Basophils % (auto) 0.3 %; Eosinophils % (auto) 1.7 %; Immature Granulocytes # (auto) 0.52 K/uL (0.00-0.02); Immature Granulocytes % (auto) 2.9 %; Lymphocytes # (auto) 5.01 K/uL (1.2-3.4); Lymphocytes % (auto) 28.4 %; Monocytes # (auto) 1.74 K/uL (0.11-0.59); Monocytes % (auto) 9.9 %; Neutrophils # (auto) 10.03 K/uL (1.4-6.5); Neutrophils % (auto) 56.8 %
--- NOTE | 2019-04-02 21:02 | XRay Report ---
SINGLE VIEW CHEST CLINICAL HISTORY: Atypical chest pain. FINDINGS: 2 AP, portable, upright chest radiographs are compared to study dated 03/29/2019 and correla michelle with chest CT dated 03/30/2019. The examination is degraded by portable technique and patient rota tion. The heart is enlarged and there is atherosclerotic calcification of the thoracic aorta. The pu lmonary vasculature is noncongested. Emphysema and chronic interstitial thickening are similar to pre vious. There is mild chronic elevation of the right hemidiaphragm with associated atelectasis. A trac e right pleural effusion is again noted. No airspace consolidation is seen typical for pneumonia. No pneumothorax is seen. The skeletal structures are osteopenic. The bony thorax is grossly intact. IMPRESSION: Cardiomegaly and emphysema with no acute cardiopulmonary abnormality. There has been no s ignificant change from recent prior studies. Electronically signed by: Fausto Donovan M.D. 04/02/2019 9:01 PM
--- NOTE | 2019-04-02 21:58 | History & Physical Report ---
Date of Service April 02, 2019 Assessment & Plan (1) Shortness of breath: Patient with acute onset SOB this afternoon, cough/wheezing, mild relief with bronchodilators. He is breathing comfortably at present, no respiratory distress, adequate oxygenation on 2L. Diffuse inspiratory and expiratory wheezing on exam with prolonged expiratory phase favor COPD exacerbation. Patient also with mild bibasilar crackles and edema, less likely secondary to CHF. Afebrile, no infiltrate on CXR. -Admit to medical floor -Check BNP -DuoNeb q 4 hours -Albuterol q 2 hours PRN -Solumedrol 30mg IV TID -Supplemental O2 as needed to maintain saturations 92% Present on Admission?: Yes (2) Elevated troponin: Patient with elevated troponin during last hospital stay, remains elevated. He had brief chest discomfort this afternoon, now resolved. EKG is unchanged from prior. -repeat troponin in 8 hours to document trend -continue to monitor Present on Admission?: Yes (3) Diastolic CHF: Patient does not appear to be in acute exacerbation of CHF at present. -Continue Lasix 20mg po BID -BNP as above -Continue to monitor I/O, weights Present on Admission?: Yes (4) Depression: Chronic. Well controlled -Continue escitalopram 10mg po daily Present on Admission?: Yes (5) Hypothyroidism: Chronic -Continue Synthroid regimen, 75mcg and 37.5mcg QOD Present on Admission?: Yes (6) GERD (gastroesophageal reflux disease): Chronic. Well controlled -Continue PO protonix Present on Admission?: Yes (7) HLD (hyperlipidemia): Chronic -Continue Simvastatin Present on Admission?: Yes (8) HTN (hypertension): Blood pressure stable at present -Continue to monitor Present on Admission?: Yes (9) Anemia: Stable, normochromic/normocytic. No active bleeding -Continue FESO4 -CBC in AM Present on Admission?: Yes (10) Diabetes: Blood sugar elevated at present. HgAIC=9.9 on 03/30/19 -Hold PO agents -Lantus 8u BID, ISS -May need to increase as patient is on IV steroids Present on Admission?: Yes (11) Elevated lipase: Patient with no complaint of abdominal discomfort. No epigastric pain on palpation. Do not suspect acute pancreatitis at this time. -Repeat lipase in AM Present on Admission?: Yes (12) Atrial fibrillation: Presently in sinus rhythm with 1st degree block, bifascicular block, rate of 91 -Xarelto anticoagulation -Continnue to monitor Present on Admission?: Yes (13) Leukocytosis: Patient with elevated WBC noted during hospitalization in January. WBC to day=17.66 with elevation in bands, neutrophils, lympocytes and monocytes. ?etiology - infectious vs steroid effect vs malignancy -Peripheral smear review pending -Discussed having PET-CT to scan for occult malignancy - stated that this was ordered by his PCP but they are not sure if it will be covered by insurance F/E/N - Heplock. Monitor electrolytes and replete as needed, continue PO mag nesium. Hold additional vitamins and supplements, AHA/CC diet as tolerated Ppx - Patient on Xarelto for AF Code - DNR per discussion with patient Dispo - Observation to medical floor History of Present Illness Chief Complaint: SOB Primary Care Provider: Artis Gunderson MD Mr. Gibson is a pleasant 79yo C male with multiple medical comorbidities, multiple recent hospitalizations most recently at [facility] from 03/29 - 04/01 with complaint of chest pain and fatigue. Patient with mild elevation in troponin thought to be secondary to demand ischemia. He was discharged home yesterday. He did well overnight and felt well in the morning. Around 14:00 he developed worsening SOB, wheeze and bandlike chest tightness as well as some nausea and non-bloody/non-bilious emesis. His checked his oxygenation at that time and said it was 95%. He used his nebulizer and took his rescue inhaler at home with mild relief in his SOB. Presently he feels improved after receiving a neb treatment in the ER. His CP has resolved. He does report some mildly increased LE edema and weight gain as well. ER Course: Solumedrol, Albuterol, NSS Allergies Allergy/AdvReac Type Severity Reaction Status Date / Time moxifloxacin Allergy Severe throat Verified 03/29/19 17:54 swelling ofloxacin Allergy Severe SWELLING Verified 03/29/19 17:54 AROUND FACE Quinolones Allergy Severe ANAPHYLAXIS Verified 03/29/19 17:55 formoterol Allergy Intermediate RASH Verified 03/29/19 17:55 metoprolol Allergy Intermediate RASH Verified 03/29/19 17:55 Sulfa (Sulfonamide Allergy Intermediate severe red Verified 03/29/19 17:55 Antibiotics) rash Home Medications Home Medications Medication Instructions Recorded Confirmed Type Brovana 15 mcg INHALATION Q12H 08/03/18 04/02/19 History Centrum Silver 1 tab PO QAM 08/03/18 04/02/19 History Tudorza Pressair 1 puff INHALATION QAM 08/03/18 04/02/19 History cholecalciferol (vitamin D3) 2,000 unit PO HS 08/03/18 04/02/19 History cyanocobalamin (vitamin B-12) 1,000 mcg PO QAM 08/03/18 04/02/19 History glucosamine-chondroitin [Osteo 1 tab PO BID 08/03/18 04/02/19 History Bi-Flex] simvastatin 80 mg PO HS 08/03/18 04/02/19 History prednisone 10 mg PO QAM 09/30/18 04/02/19 History Xarelto 20 mg PO QPM #30 tab 10/04/18 04/02/19 Rx metformin 1,000 mg tablet 1,000 mg PO BID #180 tab 02/24/19 04/02/19 Rx albuterol sulfate HFA 90 2 puffs INH Q4H PRN gm 02/27/19 04/02/19 History mcg/actuation aerosol inhaler ferrous sulfate 325 mg (65 mg 325 mg PO BID tab 02/27/19 04/02/19 History iron) tablet fluticasone propionate 50 2 sprays INTRANASAL QAM 02/27/19 04/02/19 History mcg/actuation nasal spray,suspension furosemide 20 mg tablet 20 mg PO BID 02/27/19 04/02/19 History levothyroxine 75 mcg tablet 75 mcg PO Q2D tab 02/27/19 04/02/19 History magnesium 250 mg tablet 250 mg PO BID tab 02/27/19 04/02/19 History pantoprazole 40 mg tablet,delayed 40 mg PO QAM 02/27/19 04/02/19 History release glimepiride 3.5 mg PO QAM 03/05/19 04/02/19 History levothyroxine 37.5 mcg PO Q2D 03/05/19 04/02/19 History escitalopram oxalate 10 mg PO QAM 04/02/19 04/02/19 History Past Med/Surg History Social History Preferred Language: Togolese Communication Ability: Effective Relationship Specialist Required: No Beliefs That Will Affect Care: None marital status: Current Living Situation: Spouse Feels Safe at Home: Yes Smoking Status: Former smoker Second Hand Exposure: No ; Hx Alcohol Use: No Hx Substance Use: No Review of Systems Review of Systems: All systems reviewed & are unremarkable except as noted in HPI & below Physical Exam Physical Exam: General: patient resting comfortably, NAD, non-toxic in appearance, AA&O x 3, no respiratory distress Skin: warm, dry, intact, no rashes or lesions HEENT: NC/AT, PERRL, EOMI, anicteric sclera, conjunctiva without injection, external ear normal to inspection and nontender, nares patent, moist mucus membranes, dentition intact, no oropharyngeal lesions, neck supple, trachea midline, no LAD, no thyromegaly, no JVD Heart: +S1/S2, regular, no m/r/g Lungs: equal air entry bilaterally, diffuse inspiratory and expiratory wheezing with prolonged expiratory phase, +crackles at bilateral bases Abd: +BS, soft, NT/ND, no masses/organomegaly/ascites Ext: warm, 2+ pulses in UE/LE bilaterally, no clubbing/cyanosis, 1+ pitting edema of bilateral LE Neuro: nonfocal, patient AA&O x 4, speech intact, no facial droop, moving all extremities on command with equal strength 5/5 Results & Data Vital Signs (Past 12 Hours) Vital Signs Temp Pulse Pulse Resp BP BP Pulse Ox 04/02/19 21:10 84 23 140/61 100 04/02/19 20:16 84 22 96 04/02/19 19:55 96 04/02/19 19:48 36.9 C 87 24 126/75 96 Laboratory Results Lab Results 04/02/19 04/02/19 Range/Units 19:45 19:45 WBC 17.66 H (4.8-10.8) K/uL RBC 3.89 L (4.7-6.1) M/uL Hgb 12.1 L (14.0-18.0) g/dL Hct 36.1 L (42-52) % MCV 92.8 (80-100) fL MCH 31.1 (25-34) pg MCHC 33.5 (32-36) g/dL RDW Std Deviation 50.8 H (36.4-46.3) fL RDW Coeff of Ruddy 15.1 H (11.5-14.5) % Plt Count 277 (130-400) K/uL MPV 10.6 H (7.4-10.4) fL Immature Gran % (Auto) 2.9 % Neut % (Auto) 56.8 % Lymph % (Auto) 28.4 % Lawrence % (Auto) 9.9 % Eos % (Auto) 1.7 % Baso % (Auto) 0.3 % Immature Gran # (Auto) 0.52 H (0.00-0.02) K/uL Neut # (Auto) 10.03 H (1.4-6.5) K/uL Lymph # (Auto) 5.01 H (1.2-3.4) K/uL Lawrence # (Auto) 1.74 H (0.11-0.59) K/uL Eos # (Auto) 0.30 (0-0.5) K/uL Baso # (Auto) 0.06 (0-0.2) K/uL Sodium 138 (136-145) mmol/L Potassium 3.9 (3.5-5.1) mmol/L Chloride 104 (98-107) mmol/L Carbon Dioxide 22 (21-32) mmol/L Anion Gap 12.0 H (3-11) BUN 20 H (7-18) mg/dl Creatinine 1.41 H (0.6-1.4) mg/dl Est Cr Clr Drug Dosing 43.9 ml/min Est GFR ( Amer) 53.8 Est GFR (Non-Af Amer) 46.4 BUN/Creatinine Ratio 14.0 (10-20) Glucose 256 H (70-99) mg/dl Calcium 9.1 (8.5-10.1) mg/dl Total Bilirubin 0.3 (0.2-1) mg/dl AST 12 L (15-37) U/L ALT 38 (12-78) U/L Alkaline Phosphatase 89 (45-117) U/L Total Creatine Kinase 109 (39-308) U/L CK-MB (CK-2) 3.2 (0.5-3.6) ng/ml CK/CKMB % Calc 2.9 (0-3.0) Troponin I 0.051 H* (0-0.045) ng/ml Total Protein 6.9 (6.4-8.2) gm/dl Albumin 3.4 (3.4-5.0) gm/dl Globulin 3.5 (2.5-4.0) gm/dl Albumin/Globulin Ratio 1.0 (0.9-2) Lipase 436 H (73-393) U/L Diagnostic Findings SINGLE VIEW CHEST CLINICAL HISTORY: Atypical chest pain. FINDINGS: 2 AP, portable, upright chest radiographs are compared to study dated 03/29/2019 and correlated with chest CT dated 03/30/2019. The examination is deg raded by portable technique and patient rotation. The heart is enlarged and there is atherosclerotic calcification of the thoracic aorta. The pulmonary vasculature is noncongested. Emphysema and chronic interstitial thickening are similar to previous. There is mild chronic elevation of the right hemidiaphragm with associated atelectasis. A trace right pleural effusion is again noted. No airspace consolidation is seen typical for pneumonia. No pneumothorax is seen. The skeletal structures are osteopenic. The bony thorax is grossly intact. IMPRESSION: Cardiomegaly and emphysema with no acute cardiopulmonary abnormality. There has been no significant change from recent prior studies. Electronically signed by: Fausto Donovan M.D. 04/02/2019 9:01 PM Dictated: 04/02/192058 Transcribed: 04/02/192058 ECG Additional Comments: The study shows sinus rhythm with 1st degree AV block, FI=909, DLV=762, RUb=557, Bifascicular block unchanged from prior Code Status & VTE Plan Code Status DNR/DNI per discussion with patient VTE Prophylaxis Plan VTE Prophylaxis will be ordered: Yes PG Care Time/CCT Total # of Minutes Spent Total Time Spent with Patient: Total time spent is greater than 50% in coordination of care (as documented) at patient's floor/unit and/or counseling patient: (1) Diastolic CHF Heart failure chronicity: chronic Qualified Code(s): I50.32 - Chronic diastolic (congestive) heart failure (2) Depression Depression Type: unspecified Qualified Code(s): F32.9 - Major depressive disorder, single episode, unspecified (3) Hypothyroidism Hypothyroidism type: unspecified Qualified Code(s): E03.9 - Hypothyroidism, unspecified (4) GERD (gastroesophageal reflux disease) Esophagitis presence: esophagitis presence not specified Qualified Code(s): K21.9 - Gastro-esophageal reflux disease without esophagitis (5) HLD (hyperlipidemia) Hyperlipidemia type: unspecified Qualified Code(s): E78.5 - Hyperlipidemia, unspecified (6) HTN (hypertension) Hypertension type: essential hypertension Qualified Code(s): I10 - Essential (primary) hypertension (7) Anemia Anemia type: unspecified type Qualified Code(s): D64.9 - Anemia, unspecified (8) Diabetes Diabetes mellitus type: type 2 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
[2019-04-02] MEDS ORDERED: ALBUTEROL 0.5% NEB SOLN 2.5 MG/0.5 ML VIAL NEB PRN (22:43)
[2019-04-02] MEDS ORDERED: INSULIN GLARGINE SOLOSTAR 100 UNITS/ML 3 ML PEN SC SCH (22:43)
[2019-04-02] MEDS ORDERED: CARBOHYDRATES FOR HYPOGLYCEMIA PO PRN (22:43)
[2019-04-02] MEDS ORDERED: GLUCAGON FOR INJ 1 MG VIAL SQ PRN (22:43)
[2019-04-02] MEDS ORDERED: DEXTROSE 50% 50 ML SYRINGE IV PRN (22:43)
[2019-04-02] MEDS ORDERED: GLUCOSE 40% GEL 15 GM TUBE PO PRN (22:43)
[2019-04-02] MEDS ORDERED: GLUCOSE 10 TABS/TUBE PO PRN (22:43)
[2019-04-02] MEDS: ALBUT/IPRATROP 3MG/0.5MG NEB 3 ML VIAL NEB SCH (23:18)
[2019-04-02 23:27] LABS: Magnesium 2.3 mg/dl (1.8-2.4); Phosphorus 3.3 mg/dl (2.5-4.9)
[2019-04-02] MEDS: INSULIN ASPART 100 UNITS/ML 3 ML PEN SC SCH (23:45)
[2019-04-02] MEDS: MAGNESIUM OXIDE 400 MG TAB PO SCH (23:48)
--- NOTE | 2019-04-03 01:53 | Emergency Department Note ---
Entered by Michel Gonzalez acting as a scribe for Chaka Houser MD History of Present Illness General Chief complaint: Shortness of Breath/Dyspnea Time Seen by Provider: 04/02/19 19:37 Source: family () and other (nurse) History of Present Illness Onset (ago): day(s) (this morning) Location: chest Pain Consistency: + constant Quality: + other (SOB) Associated symptoms: + other (Positive for a dry cough, intermittent abdominal pain, and an episode of vomiting. Negative for CP and fever.) The patient is an 79 year old male who presents to the emergency department with complaints of constant SOB beginning this morning. Per nurse, the patient was in the emergency department yesterday for similar symptoms. She states that the patient received a DuoNeb en route to the emergency department. Per , the patient has also had a dry cough, intermittent abdominal pain, and an episode of vomiting. She notes that the patient has not had a fever and CP. She reports that the patient has a history of COPD and is on 2L of oxygen at home. Home Medications Home Medications Medication Instructions Recorded Confirmed Type Brovana 15 mcg INHALATION Q12H 08/03/18 04/02/19 History Centrum Silver 1 tab PO QAM 08/03/18 04/02/19 History Tudorza Pressair 1 puff INHALATION QAM 08/03/18 04/02/19 History cholecalciferol (vitamin D3) 2,000 unit PO HS 08/03/18 04/02/19 History cyanocobalamin (vitamin B-12) 1,000 mcg PO QAM 08/03/18 04/02/19 History glucosamine-chondroitin [Osteo 1 tab PO BID 08/03/18 04/02/19 History Bi-Flex] simvastatin 80 mg PO HS 08/03/18 04/02/19 History prednisone 10 mg PO QAM 09/30/18 04/02/19 History Xarelto 20 mg PO QPM #30 tab 10/04/18 04/02/19 Rx metformin 1,000 mg tablet 1,000 mg PO BID #180 tab 02/24/19 04/02/19 Rx albuterol sulfate HFA 90 2 puffs INH Q4H PRN gm 02/27/19 04/02/19 History mcg/actuation aerosol inhaler ferrous sulfate 325 mg (65 mg 325 mg PO BID tab 02/27/19 04/02/19 History iron) tablet fluticasone propionate 50 2 sprays INTRANASAL QAM 02/27/19 04/02/19 History mcg/actuation nasal spray,suspension furosemide 20 mg tablet 20 mg PO BID 02/27/19 04/02/19 History levothyroxine 75 mcg tablet 75 mcg PO Q2D tab 02/27/19 04/02/19 History magnesium 250 mg tablet 250 mg PO BID tab 02/27/19 04/02/19 History pantoprazole 40 mg tablet,delayed 40 mg PO QAM 02/27/19 04/02/19 History release glimepiride 3.5 mg PO QAM 03/05/19 04/02/19 History levothyroxine 37.5 mcg PO Q2D 03/05/19 04/02/19 History escitalopram oxalate 10 mg PO QAM 04/02/19 04/02/19 History Allergies Allergy/AdvReac Type Severity Reaction Status Date / Time moxifloxacin Allergy Severe throat Verified 03/29/19 17:54 swelling ofloxacin Allergy Severe SWELLING Verified 03/29/19 17:54 AROUND FACE Quinolones Allergy Severe ANAPHYLAXIS Verified 03/29/19 17:55 formoterol Allergy Intermediate RASH Verified 03/29/19 17:55 metoprolol Allergy Intermediate RASH Verified 03/29/19 17:55 Sulfa (Sulfonamide Allergy Intermediate severe red Verified 03/29/19 17:55 Antibiotics) rash Past Med/Surg History Social History Preferred Language: Albanian Communication Ability: Effective Window Shade Ring Sewer Required: No Beliefs That Will Affect Care: None marital status: Current Living Situation: Spouse Feels Safe at Home: Yes Smoking Status: Former smoker Second Hand Exposure: No ; Hx Alcohol Use: No Hx Substance Use: No Review of Systems See HPI for pertinent positives & negatives. and A total of 10 systems reviewed and were otherwise negative Physical Exam Vital Signs Vital Signs - 24 hr 04/02/19 19:48 04/02/19 19:55 04/02/19 20:16 Temperature 36.9 C Temperature Source Oral Sepsis Recent Fever Within 48 Hours No Sepsis New/Unexplained Change in Mental Status No Sepsis Action Taken by Nursing No Action Required Pulse Rate 87 Pulse Rate [Right Apical] 84 Pulse Rhythm Regular Pulse Rhythm [Right Apical] Respiratory Rate 24 22 Respiratory Effort / Characteristics Spontaneous Non-Labored Spontaneous Respiratory Pattern Regular Blood Pressure 126/75 Blood Pressure [Right Arm] Blood Pressure Mean 92 Blood Pressure Mean [Right Arm] Pulse Oximetry 96 96 96 Oxygen Delivery Method Nasal Cannula Nasal Cannula Nasal Cannula Oxygen Flow Rate 2 2 2 04/02/19 21:10 Temperature Temperature Source Sepsis Recent Fever Within 48 Hours Sepsis New/Unexplained Change in Mental Status Sepsis Action Taken by Nursing Pulse Rate Pulse Rate [Right Apical] 84 Pulse Rhythm Pulse Rhythm [Right Apical] Regular Respiratory Rate 23 Respiratory Effort / Characteristics Respiratory Pattern Blood Pressure Blood Pressure [Right Arm] 140/61 Blood Pressure Mean Blood Pressure Mean [Right Arm] 87 Pulse Oximetry 100 Oxygen Delivery Method Room Air Oxygen Flow Rate GENERAL: Awake, alert, well-appearing, in no acute distress HENT: Normocephalic, atraumatic. Oropharynx unremarkable. EYES: Normal conjunctiva. Sclera non-icteric. NECK: Supple. No nuchal rigidity. FROM. No JVD. RESPIRATORY: Bilaterally wheezing throughout all lung art. CARDIAC: Regular rate, normal rhythm. Extremities warm and well perfused. Pulses equal. ABDOMEN: Soft, non-distended. No tenderness to palpation. No rebound or guarding. No masses. RECTAL: Deferred. MUSCULOSKELETAL: Chest examination reveals no tenderness. The back is symmetrical on inspection without obvious abnormality. There is no CVA tenderness to palpation. No joint edema. LOWER EXTREMITIES: Calves are equal size bilaterally and non-tender. No edema. No discoloration. NEURO: Normal sensorium. No sensory or motor deficits noted. SKIN: No rash or jaundice noted. Course 1944: The patient was evaluated in room C6. A complete history and physical exam was performed. 2055: Upon reevaluation, the patient is stable. I discussed the findings and the treatment plan with the patient. He expresses agreement and understanding. I [place] [facility] [place]. The patient will be evaluated for further management. Consultations Consultation #1: I reviewed the patient's case with Dr. Luke - [place], [facility] She will evaluate the patient for further management. Time: 20:56 Administered Medications Albuterol (Duoneb) 3 ml NEB Q4R MIQUEL Stop: 05/03/19 00:00 Last Admin: 04/02/19 23:18 Dose: 3 ml Documented by: [id number] Insulin Aspart (Novolog Flexpen) 0 units SC ACHS MIQUEL Stop: 05/02/19 22:59 Last Admin: 04/02/19 23:45 Dose: 7 units Documented by: [id number] Cosigned by: [id number] Insulin Glargine (Lantus Solostar Pen) 8 units SC BID MIQUEL Stop: 05/02/19 22:42 Last Admin: 04/02/19 23:45 Dose: 8 units Documented by: [id number] Cosigned by: [id number] Magnesium Oxide (Mag-Ox) 400 mg PO BID MIQUEL Stop: 05/02/19 22:59 Last Admin: 04/02/19 23:48 Dose: 400 mg Documented by: [id number] Discontinued Medications Albuterol (Duoneb) 12 ml NEB ONE ONE Stop: 04/02/19 20:03 Last Admin: 04/02/19 20:13 Dose: 12 ml Documented by: [id number] Sodium Chloride (Nss) 500 mls @ 999 mls/hr IV .Q31M MIQUEL Stop: 04/02/19 20:45 Last Infusion: 04/02/19 21:09 Dose: 0 mls/hr Documented by: [id number] Admin: 04/02/19 20:10 Dose: 999 mls/hr Documented by: [id number] Methylprednisolone 60 mg/ (Syringe) 1.96 mls @ 1.5 mls/min IV NOW STA Stop: 04/02/19 20:03 Last Admin: 04/02/19 20:10 Dose: Not Given Documented by: [id number] Sodium Chloride (Nss 1000ml) 500 mls @ 999 mls/hr IV .Q31M ONE Stop: 04/02/19 21:08 Last Infusion: 04/02/19 21:50 Dose: 0 mls/hr Documented by: [id number] Admin: 04/02/19 21:09 Dose: 999 mls/hr Documented by: [id number] Methylprednisolone (Solumedrol) Confirm Administered Dose 80 mg .ROUTE .STK-MED ONE Stop: 04/02/19 20:09 Last Admin: 04/02/19 20:10 Dose: 60 mg Documented by: [id number] Medical Decision Making Differential Diagnosis Differential diagnosis: Etiologies such as infections, reactive airway disease, COPD, pneumonia, pleural effusion, pulmonary edema, ARDS, pneumothorax, CHF, cardiac ischemia, cardiac tamponade, dysrhythmia, anemia, pulmonary embolism, musculoskeletal, gastrointestinal process, as well as others were entertained. Medical Records Attestation: I reviewed the patient's medical records. Home Medications Current Medication List: was personally reviewed by me Laboratory Data Attestation: I reviewed the patient's lab results. Result diagrams: 04/02/19 19:45 04/02/19 19:45 Lab Results 04/02/19 04/02/19 Range/Units 19:45 19:45 WBC 17.66 H (4.8-10.8) K/uL RBC 3.89 L (4.7-6.1) M/uL Hgb 12.1 L (14.0-18.0) g/dL Hct 36.1 L (42-52) % MCV 92.8 (80-100) fL MCH 31.1 (25-34) pg MCHC 33.5 (32-36) g/dL RDW Std Deviation 50.8 H (36.4-46.3) fL RDW Coeff of Ruddy 15.1 H (11.5-14.5) % Plt Count 277 (130-400) K/uL MPV 10.6 H (7.4-10.4) fL Immature Gran % (Auto) 2.9 % Neut % (Auto) 56.8 % Lymph % (Auto) 28.4 % Mora % (Auto) 9.9 % Eos % (Auto) 1.7 % Baso % (Auto) 0.3 % Immature Gran # (Auto) 0.52 H (0.00-0.02) K/uL Neut # (Auto) 10.03 H (1.4-6.5) K/uL Lymph # (Auto) 5.01 H (1.2-3.4) K/uL Mora # (Auto) 1.74 H (0.11-0.59) K/uL Eos # (Auto) 0.30 (0-0.5) K/uL Baso # (Auto) 0.06 (0-0.2) K/uL Sodium 138 (136-145) mmol/L Potassium 3.9 (3.5-5.1) mmol/L Chloride 104 (98-107) mmol/L Carbon Dioxide 22 (21-32) mmol/L Anion Gap 12.0 H (3-11) BUN 20 H (7-18) mg/dl Creatinine 1.41 H (0.6-1.4) mg/dl Est Cr Clr Drug Dosing 43.9 ml/min Est GFR ( Amer) 53.8 Est GFR (Non-Af Amer) 46.4 BUN/Creatinine Ratio 14.0 (10-20) Glucose 256 H (70-99) mg/dl Calcium 9.1 (8.5-10.1) mg/dl Phosphorus 3.3 (2.5-4.9) mg/dl Magnesium 2.3 (1.8-2.4) mg/dl Total Bilirubin 0.3 (0.2-1) mg/dl AST 12 L (15-37) U/L ALT 38 (12-78) U/L Alkaline Phosphatase 89 (45-117) U/L Total Creatine Kinase 109 (39-308) U/L CK-MB (CK-2) 3.2 (0.5-3.6) ng/ml CK/CKMB % Calc 2.9 (0-3.0) Troponin I 0.051 H* (0-0.045) ng/ml NT-Pro-B Natriuret Pep 368 (0-1800) pg/ml Total Protein 6.9 (6.4-8.2) gm/dl Albumin 3.4 (3.4-5.0) gm/dl Globulin 3.5 (2.5-4.0) gm/dl Albumin/Globulin Ratio 1.0 (0.9-2) Lipase 436 H (73-393) U/L Imaging Data Radiologist's Impression: Radiology results as stated below per my review and the radiologist's interpretation: SINGLE VIEW CHEST FINDINGS: 2 AP, portable, upright chest radiographs are compared to study dated 03/29/2019 and correlated with chest CT dated 03/30/2019. The examination is degraded by portable technique and patient rotation. The heart is enlarged and there is atherosclerotic calcification of the thoracic aorta. The pulmonary vasculature is noncongested. Emphysema and chronic interstitial thickening are similar to previous. There is mild chronic elevation of the right hemidiaphragm with associated atelectasis. A trace right pleural effusion is again noted. No airspace consolidation is seen typical for pneumonia. No pneumothorax is seen. The skeletal structures are osteopenic. The bony thorax is grossly intact. IMPRESSION: Cardiomegaly and emphysema with no acute cardiopulmonary abnormality. There has been no significant change from recent prior studies. Electronically signed by: Fausto Donovan M.D. 04/02/2019 9:01 PM ECG Data Attestation: I personally reviewed and interpreted this ECG as follows: Indication: SOB/dyspnea Rate (beats per minute): 85 Rhythm: sinus rhythm Findings: + 1st degree AV block and + RBBB; no ST depression and no ST elevation Additional Comments: Bifascicular block noted. Blood Pressure Blood Pressure Findings: Elevated blood pressure Blood Pressure Disposition: further management by hospitalist MDM Narrative This is an 79-year-old male who presents emergency department complaining of shortness of breath. Patient is wheezing on physical examination. He was given a DuoNeb breathing treatment. His troponin is slightly elevated compared to his previous. Because of this I did discuss his case with the hospitalist service who agreed to admit the patient. Patient and are in agreement with the treatment plan. He does have a slight elevation in his white blood cell count 17,000 however is afebrile here. Impression & Plan COPD (chronic obstructive pulmonary disease) with acute bronchitis, Heart disease, HTN (hypertension), Elevated troponin Discharge Plan Visit Data *Final* Discharge Date/Time: 04/02/19 22:23 Chief Complaint: Shortness of Breath/Dyspnea ED Provider: Chaka Houser Discharge Problem: COPD (chronic obstructive pulmonary disease) with acute bronchitis, Heart disease, HTN (hypertension), Elevated troponin Patient Disposition: Admitted As Inpatient Discharge Instructions Interventions: ED Discharge Assessment Last Done: 04/02/19 22:23 The scribe's documentation has been prepared under my direction and personally reviewed by me in its entirety. I confirm that the note above accurately reflects all work, treatment, procedures, and medical decision making performed by me.
[2019-04-03] MEDS ORDERED: Nursing to Pharmacy Communication ONE (02:30)
[2019-04-03] MEDS ORDERED: INSULIN ASPART 100 UNITS/ML 3 ML PEN SC ONE ×2 (03:00→09:15)
[2019-04-03] MEDS: methylPREDNISolone 30 MG in SYRINGE 0 ML IV SCH ×3 (03:07→21:04)
[2019-04-03] MEDS: ALBUT/IPRATROP 3MG/0.5MG NEB 3 ML VIAL NEB SCH ×6 (03:29→23:11)
[2019-04-03] MEDS: LEVOTHYROXINE SODIUM 75 MCG TABLET PO SCH (05:40)
[2019-04-03 06:31] LABS: Basophils # (auto) 0.01 K/uL (0-0.2); Basophils % (auto) 0.1 %; Echinocytes 1+; Eosinophils # (auto) 0.01 K/uL (0-0.5); Eosinophils % (auto) 0.1 %; Hematocrit (blood only) 33.6 % (42-52); Hemoglobin 11.1 g/dL (14.0-18.0); Immature Granulocytes # (auto) 0.34 K/uL (0.00-0.02); Immature Granulocytes % (auto) 2.7 %; Lymphocytes % (auto) 9.4 %; Mean Corpuscular Volume 93.1 fL (80-100); Mean Platelet Volume 10.3 fL (7.4-10.4); Monocytes # (auto) 0.29 K/uL (0.11-0.59); Monocytes % (auto) 2.3 %; Neutrophils # (auto) 10.91 K/uL (1.4-6.5); Neutrophils % (auto) 85.4 %; Platelet Count 244 K/uL (130-400); RDW Coefficient of Variation 15.2 % (11.5-14.5); RDW Standard Deviation 51.5 fL (36.4-46.3); Red Blood Count 3.61 M/uL (4.7-6.1); White Blood Count 12.76 K/uL (4.8-10.8)
[2019-04-03 08:01] LABS: BUN Creatinine Ratio 14.1 (10-20); Calcium 8.5 mg/dl (8.5-10.1); Creatinine Clr Calc Pharmacy 49.3 ml/min; Est GFR (African American) 59.9; Est GFR (Non-African American) 51.7; Troponin I 0.035 ng/ml (0-0.045)
[2019-04-03] MEDS: PANTOprazole 40 MG TAB PO SCH (08:01)
[2019-04-03] MEDS: FUROSEMIDE 20 MG TAB PO SCH ×2 (08:01→17:58)
[2019-04-03] MEDS: FLUTICASONE PROPIONATE NA SPR 16 GM BTL SCH (08:01)
[2019-04-03] MEDS: FERROUS SULFATE 325 MG TAB PO SCH ×2 (08:01→21:05)
[2019-04-03] MEDS: MAGNESIUM OXIDE 400 MG TAB PO SCH ×2 (08:01→21:08)
[2019-04-03] MEDS: ESCITALOPRAM OXALATE 20 MG TAB PO SCH (08:01)
[2019-04-03 08:24] LABS: Beta-Hydroxybutyrate 1.75 mg/dl (0.2-2.81)
[2019-04-03] MEDS: INSULIN ASPART 100 UNITS/ML 3 ML PEN SC SCH ×4 (08:26→21:11)
[2019-04-03] MEDS ORDERED: INSULIN GLARGINE SOLOSTAR 100 UNITS/ML 3 ML PEN SC SCH ×2 (09:00→21:00)
[2019-04-03] MEDS ORDERED: PHARMACY GLYCEMIC MGMT CONSULT PRN (09:03)
[2019-04-03] MEDS ORDERED: MODERATE STRESS LEVEL ONE (09:03)
[2019-04-03] MEDS ORDERED: INSULIN REGULAR 250 UNITS in SODIUM CHLORIDE 0.9% 247.5 ML IV SCH (09:15)
[2019-04-03] MEDS ORDERED: INSULIN HUMAN REGULAR PER UNIT 8 UNITS in SYRINGE 7.92 ML IV ONE (09:30)
[2019-04-03] MEDS ORDERED: INSULIN GLARGINE SOLOSTAR 100 UNITS/ML 3 ML PEN SC ONE (09:45)
[2019-04-03] MEDS ORDERED: INSULIN ASPART 100 UNITS/ML 3 ML PEN SC SCH (11:30)
--- NOTE | 2019-04-03 15:15 | Pharmacy Report ---
Glycemic Control Consultation - Date of Service April 03, 2019 - Scope Scope: Glycemic Pharmacist consulted by Dr Cordova on 04/03/19 for glycemic control and to write orders per [facility] inpatient glycemic control protocol - Objective Weight: 79.6 kg Accuchecks BSG (last 24hrs): 04/02/19 04/02/19 04/02/19 19:45 23:34 23:35 Glucose 256 H POC Glucose 368 H* 347 H* 04/03/19 04/03/19 04/03/19 02:10 02:11 05:37 Glucose Cancelled POC Glucose 337 H* 363 H* 04/03/19 04/03/19 04/03/19 07:11 07:56 11:34 Glucose 327 H* POC Glucose 303 H* 278 H 04/03/19 12:14 Glucose POC Glucose 215 H Laboratory Data (last 24hrs): 04/02/19 04/03/19 04/03/19 19:45 05:37 07:11 Potassium 3.9 Cancelled 5.0 D Carbon Dioxide 22 Cancelled 22 Anion Gap 12.0 H Cancelled 9.0 Creatinine 1.41 H Cancelled 1.29 Est Cr Clr Drug Dosing 43.9 Cancelled 49.3 Beta-Hydroxybutyric Acd 1.75 - Recent Pertinent Medications Outpatient Anti-diabetic Regimen: * metformin 1 gm PO BID plus glimepiride 3.5 mg daily * A1c = 9.9 % 03/30/19 The patient is currently receiving: * Basal insulin: Lantus 13 units every 12 hours * Correctional Insulin: Novolog Correction per scale ACHS Goal Range: Low 110 mg/dL - High 140 mg/dL Correction Factor: 25 mg/dL/unit * Prandial insulin: Per carb ratio of 1 unit per 7 grams CHO consumed * Oral Agents: Risk Factors for Insulin Resistance: * Steroids: Solu-Medrol 60 mg IV x 1 then Solu-Medrol 30 mg IV q8 hours * Diet: T2 DM - Assessment & Plan Assessment & Plan: ASSESSMENT: * Mr Gibson is an 79 y/o M with a PMH of poorly controlled T2DM who presents with shortness of breath. He was start on IV steroids in the emergency room; these were continued on admission. The patient's blood sugars were over 300 mg/dL since steroids started in ED. Fasting this morning was 303 mg/dL. * Pharmacy consulted for glycemic management after breakfast insulin given. Since patient was >300 mg/dL consistently for 12 hours, consideration for insulin infusion. However, weight-based stress of three insulin had not been attempted. Provided IV bolus (0.1 units/kg) + Novolog 6 units (adjustment for desired CF of 15 and CR of 5) + Lantus 10 units (to make weight-based stress of 3 this morning). After two hours, the patient's blood sugar had trended down slightly. At lunchtime blood sugar was down approximately 100 points. * Lantus 20 units SQ BID will be started tonight (weight-based stress of 3). Will continue with slightly tighter than weight-based stress of 3 Novolog parameters. Overnight checks to establish how much basal insulin is lacking for patient. Slightly looser CF/CR for overnight. * Pt is maintained on oral antidiabetic agents as an outpatient * Oral agents are not recommended for inpatient use d/t drug interactions, changing PO intake, and difficulty titrating for acute hyper/hypoglycemia. ADA recommends re-initiating outpatient oral agents 1-2 days prior to dis charge if/when appropriate if they were held on admission. * Will hold oral agents for admission and utilize SQ basal bolus insulin regimen which is the recommended regimen for inpatient glycemic control. * Will initiate weight based insulin dosing for insulin dory patient and titrate based on BSG trends. PLAN FOR INPATIENT GLYCEMIC CONTROL: * Holding outpatient oral diabetes medications * Basal insulin * Lantus 20 units SQ BID * Bolus insulin * NovoLog per scale ACHS or Q6hrs while NPO * Goal Range: Low 110 mg/dL - High 140 mg/dL * Correction Factor: 15 mg/dL/unit * Nutritional / Prandial insulin per carb ratio of 1 unit per 5 grams CHO consumed * Please note that the plan above was derived based on current level of insulin resistance and hospital stress. These recommendations are appropriate for inpatient admission only. Plan of care upon discharge will need to be reassessed to avoid potential outpatient hypo/hyperglycemia. Thank you.
[2019-04-03] MEDS: RIVAROXABAN 20 MG TAB PO SCH (17:30)
--- NOTE | 2019-04-03 17:59 | Family Medicine Progress Note ---
Date of Service April 03, 2019 Assessment & Plan (1) Shortness of breath: 79 y/o M with extensive PMH presents after episode of SOB, wheezing, and bandlike chest pressure along with N/V after doing outside work. This is his second admission this week for same issue. SOB -relief with bronchodilators. Breathing comfortably at present, no respiratory distress, adequate oxygenation on RA -Diffuse inspiratory and expiratory wheezing on exam with prolonged expiratory phase favor COPD exacerbation. Less likely secondary to CHF- BNP normal -no infiltrate on CXR -DuoNeb q 4 hours -Albuterol q 2 hours PRN -Solumedrol 30mg IV TID. Will transition to PO -Supplemental O2 as needed to maintain saturations 92% Elevated troponin Patient with elevated troponin during last hospital stay, remains mildly elevated He had brief chest discomfort [employer], now resolved EKG is unchanged from prior. Repeat trop downtrended and normal Cardiology consulted, as this is 2nd admission and was not worked up 1st time. ?Stress test Diastolic CHF Patient does not appear to be in acute exacerbation of CHF at present. Continue Lasix 20mg po BID BNP normal Continue to monitor I/O, weights Depression Chronic. Well controlled Continue escitalopram 10mg po daily Hypothyroidism Chronic Continue Synthroid regimen, 75mcg and 37.5mcg QOD GERD Chronic. Well controlled Continue PO protonix HLD Chronic. Continue Simvastatin Anemia Stable, normochromic/normocytic. No active bleeding. Cont trend Continue FESO4 Diabetes HgAIC=9.9 on 03/30/19 Appreciate glycemic consult management Atrial fibrillation Cont Xarelto anticoagulation FEN/GI : AHA/CC diet DVT Prophylaxis - Xarelto for AF DNR/DNI Dispo : MedSurg, pending Cards eval Supervising Physician Co-Signing Physician Notes I saw the patient the resident physician and confirmed pleitez portion of the history and physical exam. Agree with the impression and plan as noted above. The patient was discharged earlier this week from the hospital. He felt well upon discharge and reviewing the transitional care note there is no issues identified. The patient was moving his camper into the [facility] and as he put his awning up he developed some pressure in the center of his chest. He really does not mention any shortness of breath at this point more so a pressure/tightness in his chest. He got back in the truck and was driven back to his home in [place], at which time he tells me that his became concerned and called the ambulance. In the emergency department he was noted to have bilateral wheezing and was treated as a COPD exacerbation. Today upon my examination, his lungs are clear and he is satting well on room oxygen. Impression Shortness of breath, perhaps some element of a COPD exacerbation Chest tightness with a minimally elevated troponin Atrial fibrillation, on anticoagulation By history, weight loss and a general decline over the past weeks to months, which is currently undergoing outpatient work-up. Plan He recovered almost to quick for this to be a COPD exacerbation Given his description of tightness -in the setting of exertion -we will discuss with cardiology His rate seems well controlled, so I do not think were looking at a rate related symptoms/failure Subjective 79 yo M found in bed this AM in NAD. No reported overnight events. Notes breathing much improved. Denies SOB, CP, SLOAN, N/V. No other acute concerns or complaints. Review of Systems Review of Systems: All systems reviewed & are unremarkable except as noted in HPI & below Physical Exam Constitutional: WD/WN, vitals as above Eyes: PERRL, conjunctivae normal, anicteric sclerae Respiratory: normal respiratory effort, lungs clear to auscultation Cardiovascular: RRR, no murmur, no edema Gastrointestinal (Abdomen): normal bowel sounds, soft, nontender, no hepatosplenomegaly Skin: no rashes, warm and dry Psychiatric: A+Ox3, euthymic affect Results & Data Vital Signs (Past 12 Hours) Vital Signs Temp Pulse Resp BP Pulse Ox 04/03/19 15:36 36.5 C 73 18 106/58 L 99 04/03/19 15:17 75 18 97 04/03/19 11:26 66 16 95 04/03/19 07:43 36.4 C L 79 18 107/61 99 04/03/19 06:50 76 16 98 Laboratory Results Laboratory Results - last 24 hr 04/02/19 04/02/19 04/02/19 19:45 19:45 23:34 WBC 17.66 H RBC 3.89 L Hgb 12.1 L Hct 36.1 L MCV 92.8 MCH 31.1 MCHC 33.5 RDW Std Deviation 50.8 H RDW Coeff of Ruddy 15.1 H Plt Count 277 MPV 10.6 H Immature Gran % (Auto) 2.9 Neut % (Auto) 56.8 Lymph % (Auto) 28.4 [place] % (Auto) 9.9 Eos % (Auto) 1.7 Baso % (Auto) 0.3 Immature Gran # (Auto) 0.52 H Neut # (Auto) 10.03 H Lymph # (Auto) 5.01 H [place] # (Auto) 1.74 H Eos # (Auto) 0.30 Baso # (Auto) 0.06 Blood Smear Review Echinocytes Sodium 138 Potassium 3.9 Chloride 104 Carbon Dioxide 22 Anion Gap 12.0 H BUN 20 H Creatinine 1.41 H Est Cr Clr Drug Dosing 43.9 Est GFR ( Amer) 53.8 Est GFR (Non-Af Amer) 46.4 BUN/Creatinine Ratio 14.0 Glucose 256 H POC Glucose 368 H* Calcium 9.1 Phosphorus 3.3 Magnesium 2.3 Total Bilirubin 0.3 AST 12 L ALT 38 Alkaline Phosphatase 89 Total Creatine Kinase 109 CK-MB (CK-2) 3.2 CK/CKMB % Calc 2.9 Troponin I 0.051 H* NT-Pro-B Natriuret Pep 368 Total Protein 6.9 Albumin 3.4 Globulin 3.5 Albumin/Globulin Ratio 1.0 Lipase 436 H Beta-Hydroxybutyric Acd 04/02/19 04/03/19 04/03/19 23:35 02:10 02:11 WBC RBC Hgb Hct MCV MCH MCHC RDW Std Deviation RDW Coeff of Ruddy Plt Count MPV Immature Gran % (Auto) Neut % (Auto) Lymph % (Auto) [place] % (Auto) Eos % (Auto) Baso % (Auto) Immature Gran # (Auto) Neut # (Auto) Lymph # (Auto) [place] # (Auto) Eos # (Auto) Baso # (Auto) Blood Smear Review Echinocytes Sodium Potassium Chloride Carbon Dioxide Anion Gap BUN Creatinine Est Cr Clr Drug Dosing Est GFR ( Amer) Est GFR (Non-Af Amer) BUN/Creatinine Ratio Glucose POC Glucose 347 H* 337 H* 363 H* Calcium Phosphorus Magnesium Total Bilirubin AST ALT Alkaline Phosphatase Total Creatine Kinase CK-MB (CK-2) CK/CKMB % Calc Troponin I NT-Pro-B Natriuret Pep Total Protein Albumin Globulin Albumin/Globulin Ratio Lipase Beta-Hydroxybutyric Acd 04/03/19 04/03/19 04/03/19 05:37 05:37 07:11 WBC 12.76 H RBC 3.61 L Hgb 11.1 L Hct 33.6 L MCV 93.1 MCH 30.7 MCHC 33.0 RDW Std Deviation 51.5 H RDW Coeff of Ruddy 15.2 H Plt Count 244 MPV 10.3 Immature Gran % (Auto) 2.7 Neut % (Auto) 85.4 Lymph % (Auto) 9.4 [place] % (Auto) 2.3 Eos % (Auto) 0.1 Baso % (Auto) 0.1 Immature Gran # (Auto) 0.34 H Neut # (Auto) 10.91 H Lymph # (Auto) 1.20 [place] # (Auto) 0.29 Eos # (Auto) 0.01 Baso # (Auto) 0.01 Blood Smear Review Echinocytes 1+ Sodium Cancelled 138 Potassium Cancelled 5.0 D Chloride Cancelled 108 H Carbon Dioxide Cancelled 22 Anion Gap Cancelled 9.0 BUN Cancelled 18 Creatinine Cancelled 1.29 Est Cr Clr Drug Dosing Cancelled 49.3 Est GFR ( Amer) Cancelled 59.9 Est GFR (Non-Af Amer) Cancelled 51.7 BUN/Creatinine Ratio Cancelled 14.1 Glucose Cancelled 327 H* POC Glucose Calcium Cancelled 8.5 Phosphorus Magnesium Total Bilirubin AST ALT Alkaline Phosphatase Total Creatine Kinase CK-MB (CK-2) CK/CKMB % Calc Troponin I Cancelled 0.035 NT-Pro-B Natriuret Pep Total Protein Albumin Globulin Albumin/Globulin Ratio Lipase Cancelled 151 Beta-Hydroxybutyric Acd 1.75 04/03/19 04/03/19 04/03/19 07:56 11:34 12:14 WBC RBC Hgb Hct MCV MCH MCHC RDW Std Deviation RDW Coeff of Ruddy Plt Count MPV Immature Gran % (Auto) Neut % (Auto) Lymph % (Auto) [place] % (Auto) Eos % (Auto) Baso % (Auto) Immature Gran # (Auto) Neut # (Auto) Lymph # (Auto) [place] # (Auto) Eos # (Auto) Baso # (Auto) Blood Smear Review Echinocytes Sodium Potassium Chloride Carbon Dioxide Anion Gap BUN Creatinine Est Cr Clr Drug Dosing Est GFR ( Amer) Est GFR (Non-Af Amer) BUN/Creatinine Ratio Glucose POC Glucose 303 H* 278 H 215 H Calcium Phosphorus Magnesium Total Bilirubin AST ALT Alkaline Phosphatase Total Creatine Kinase CK-MB (CK-2) CK/CKMB % Calc Troponin I NT-Pro-B Natriuret Pep Total Protein Albumin Globulin Albumin/Globulin Ratio Lipase Beta-Hydroxybutyric Acd 04/03/19 17:08 WBC RBC Hgb Hct MCV MCH MCHC RDW Std Deviation RDW Coeff of Ruddy Plt Count MPV Immature Gran % (Auto) Neut % (Auto) Lymph % (Auto) [place] % (Auto) Eos % (Auto) Baso % (Auto) Immature Gran # (Auto) Neut # (Auto) Lymph # (Auto) [place] # (Auto) Eos # (Auto) Baso # (Auto) Blood Smear Review Echinocytes Sodium Potassium Chloride Carbon Dioxide Anion Gap BUN Creatinine Est Cr Clr Drug Dosing Est GFR ( Amer) Est GFR (Non-Af Amer) BUN/Creatinine Ratio Glucose POC Glucose 162 H Calcium Phosphorus Magnesium Total Bilirubin AST ALT Alkaline Phosphatase Total Creatine Kinase CK-MB (CK-2) CK/CKMB % Calc Troponin I NT-Pro-B Natriuret Pep Total Protein Albumin Globulin Albumin/Globulin Ratio Lipase Beta-Hydroxybutyric Acd Medications Administered Current Inpatient Medications Albuterol (Duoneb) 3 ml NEB Q4R [facility] Stop: 05/03/19 00:00 Last Admin: 04/03/19 15:16 Dose: 3 ml Documented by: Albuterol (Ventolin 0.5% 2.5mg/0.5ml) 2.5 mg NEB Q2H PRN PRN Reason: SOB/Wheeze Stop: 05/02/19 22:42 Dextrose (Dextrose 50%) 25 - 50 ml IV UD PRN; Protocol PRN Reason: Hypoglycemia Protocol Stop: 05/02/19 22:42 Escitalopram Oxalate (Lexapro Tab) 10 mg PO QAM [facility]EL Stop: 05/03/19 08:59 Last Admin: 04/03/19 08:01 Dose: 10 mg Documented by: Ferrous Sulfate (Feosol) 325 mg PO BID [facility]QUEL Stop: 05/03/19 08:59 Last Admin: 04/03/19 08:01 Dose: 325 mg Documented by: Fluticasone Propionate (Flonase) 2 sprays NA QAM [facility] Stop: 05/03/19 08:59 Last Admin: 04/03/19 08:01 Dose: 2 sprays Documented by: Furosemide (Lasix) 20 mg PO [id number] [facility] Stop: 05/03/19 08:59 Last Admin: 04/03/19 08:01 Dose: 20 mg Documented by: Glucagon (Glucagen) 1 mg SQ UD PRN; Protocol PRN Reason: Hypoglycemia Protocol Stop: 05/02/19 22:42 Glucose (Glucose 40%) 15 - 30 gm PO UD PRN; Protocol PRN Reason: Hypoglycemia Protocol Stop: 05/02/19 22:42 Glucose (Dex4 Glucose) 4 - 8 tabs PO UD PRN; Protocol PRN Reason: Hypoglycemia Protocol Stop: 05/02/19 22:42 Methylprednisolone 30 mg/ (Syringe) 0.48 mls @ 1.5 mls/min IV Q8H [facility] Stop: 05/03/19 03:59 Last Admin: 04/03/19 12:27 Dose: 1.5 mls/min Documented by: Insulin Aspart (Novolog Flexpen) 0 units SC ACHS [facility] Stop: 05/02/19 22:59 Last Admin: 04/03/19 12:27 Dose: 20 units Documented by: Insulin Aspart (Novolog Flexpen) 0 units SC 0000,[id number] [facility] Stop: 04/04/19 04:01 Insulin Glargine (Lantus Solostar Pen) 20 units SC BID [facility] Stop: 05/03/19 20:59 Levothyroxine Sodium (Synthroid) 75 mcg PO Q48H [facility] Stop: 05/04/19 06:29 Levothyroxine Sodium (Synthroid) 37.5 mcg PO Q48H [facility] Stop: 05/03/19 06:29 Last Admin: 04/03/19 05:40 Dose: 37.5 mcg Documented by: Magnesium Oxide (Mag-Ox) 400 mg PO BID [facility]QU[facility] Stop: 05/02/19 22:59 Last Admin: 04/03/19 08:01 Dose: 400 mg Documented by: Miscellaneous (Carbohydrates For Hypoglycemia) 15 - 30 gm PO UD PRN PRN Reason: Hypoglycemia Treatment Stop: 05/02/19 22:42 Miscellaneous Information (Consult Glycemic Management Pharmacy) 1 ea N/A UD PRN PRN Reason: Consult Stop: 05/03/19 09:02 Pantoprazole Sodium (Protonix) 40 mg PO QAM [facility] Stop: 05/03/19 08:59 Last Admin: 04/03/19 08:01 Dose: 40 mg Documented by: Rivaroxaban (Xarelto) 20 mg PO QDD [facility] Stop: 05/03/19 16:29 Last Admin: 04/03/19 17:30 Dose: 20 mg Documented by: Simvastatin (Zocor) 80 mg PO HS [facility] Stop: 05/03/19 20:59 PG Care Time/CCT Total # of Minutes Spent Total Time Spent with Patient: Total time spent is greater than 50% in coordination of care (as documented) at patient's floor/unit and/or counseling patient: Resident Activity Tracking Resident Involvement: Resident Care Provided Care Provided: Adult Hospital Medicine
--- NOTE | 2019-04-03 18:33 | Cardiology Consultation ---
Date of Consultation April 03, 2019 Assessment & Plan (1) Chest pain: Etiology uncertain. Could be related to LVOT obstruction which has been noted in the past. This also could be transient and therefore may not be seen on every echo imaging. Most recent echo did demonstrate systolic anterior motion of the mitral leaflet. Recommend low-dose metoprolol 25 mg twice daily. We discussed the fact that although it is listed as an allergy, he and his both agree that he is not allergic to this medication. Monitor while initiating this medication to ensure no issues. Troponin has been elevated the past. With several hours worth of pain, would expect that if he was having acute coronary syndrome that his troponin would be more elevated. Holding off on ischemic evaluation at this time but could consider in the future if necessary. (2) Elevated troponin: He has had elevated troponins for the most part dating back to September of 2018. Troponin has remained less than 1. During this presentation is troponin was 0.051 which is only slightly above considered normal range and has since trended down. Plan as above. (3) Left ventricular outflow tract obstruction: Obstruction can be dynamic. He was outside in humid weather. Remain hydrated. Low-dose beta-morales recommended and initiated. This can cause chest discomfort and also shortness of breath, understanding that he does have C OPD as well. (4) Mitral regurgitation: Non severe eccentric mitral regurgitation noted on most recent echo. Can be monitored over time. Likely related to his systolic anterior motion of the mitral leaflet. (5) Atrial flutter: Status post ablation. Sinus rhythm noted on presenting ECG. Followed by Dr. Hwang. (6) Chronic diastolic CHF (congestive heart failure): He appears euvolemic. No changes recommended at this time. Could consider decreasing diuretic therapy if not attempted in the past to see if it helps increased preload in decrease LVOT obstruction, given his worsening chest discomfort prompting this hospitalization. Continue to follow with Dr. Hwang. Disposition: Dr. Hwang, his primary relay worker, will resume his cardiology care tomorrow. He was notified of patient's presentation and plan. 60 minutes spent, greater than 50% time was not counseling patient according care. Thank you for allowing me to participate in the care of your patient. Please call for any other questions or concerns. Sincerely, Mitch Rivero M.D. History of Present Illness Reason for Consultation: Chest pain and elevated troponin Requesting Physician: Dr. Cordova Attending Physician: Fina Luke DO History of Present Illness Mr. Gibson is a very pleasant 79-year-old gentleman with a history significant for paroxysmal atrial flutter status post atrial flutter ablation in September of 2018, chronic diastolic CHF, dynamic LVOT obstruction, hypertension, dyslipidemia, type 2 diabetes, COPD, obstructive sleep apnea, and anemia. His primary relay worker is Dr. Hwang. He was last seen by Dr. Hwang on 03/13/2019 and there was consideration for starting beta-morales or calcium channel morales due to dynamic LVOT obstruction noted on previous echocardiogram. He has been experiencing chronic chest pressure for many years intermittently without specific trigger. Symptoms can last anywhere from a few minutes to several hours. He was hospitalized within the past week with COPD exacerbation including low-grade fever. He was discharged on 04/01/2019. During that hospital stay, he did have mildly elevated troponin levels, which were reportedly thought to be due to demand ischemia from COPD exacerbation. Yesterday while riding in a truck from [place], he developed substernal/left-sided chest pressure that did not radiate. There was accompanied shortness of breath and later mild diaphoresis as noted by his . Symptoms started at approximately 2:00 p.m. and approximately at 5:00 p.m. he developed nausea and vomiting. Shortly after this, his called 911. He was given aspirin and nitroglycerin x3. He believes that his chest discomfort eventually resolved 30 minutes later. He currently is chest pain-free. Yesterday's episode was more severe than typical for his chest discomfort. His stated that he was violently coughing which she believes prompted his nausea and vomiting but his initial symptom was the chest discomfort. He currently feels well. He denies syncope, near-syncope, palpitations, new edema, melena, hematochezia, hematuria, or other bleeding. He has chronic right lower extremity edema which he believes it is at his baseline. He denies leg pain. He reports having a low-grade fever last hospitalization but none since. He has been having issues with balance at times but no syncope. He denies actual dizziness. When reviewing his allergies, he and his both stated that he is not allergic to metoprolol. We did discuss several other names for metoprolol. He reports having a cardiac catheterization 20-30 years ago at [facility] and was told that he had no CAD at that time. Review of systems: As above. Review of systems otherwise negative/unremarkable. Social history: No significant smoking. No alcohol. No drugs. He lives at home with his . His is present at the bedside. Four children. Grandchildren. Family history: Mother had CAD. Allergies Allergy/AdvReac Type Severity Reaction Status Date / Time moxifloxacin Allergy Severe throat Verified 03/29/19 17:54 swelling ofloxacin Allergy Severe SWELLING Verified 03/29/19 17:54 AROUND FACE Quinolones Allergy Severe ANAPHYLAXIS Verified 03/29/19 17:55 formoterol Allergy Intermediate RASH Verified 03/29/19 17:55 metoprolol Allergy Intermediate RASH Verified 03/29/19 17:55 Sulfa (Sulfonamide Allergy Intermediate severe red Verified 03/29/19 17:55 Antibiotics) rash Home Medications Home Medications Medication Instructions Recorded Confirmed Type Brovana 15 mcg INHALATION Q12H 08/03/18 04/02/19 History Centrum Silver 1 tab PO QAM 08/03/18 04/02/19 History Tudorza Pressair 1 puff INHALATION QAM 08/03/18 04/02/19 History cholecalciferol (vitamin D3) 2,000 unit PO HS 08/03/18 04/02/19 History cyanocobalamin (vitamin B-12) 1,000 mcg PO QAM 08/03/18 04/02/19 History glucosamine-chondroitin [Osteo 1 tab PO BID 08/03/18 04/02/19 History Bi-Flex] simvastatin 80 mg PO HS 08/03/18 04/02/19 History prednisone 10 mg PO QAM 09/30/18 04/02/19 History Xarelto 20 mg PO QPM #30 tab 10/04/18 04/02/19 Rx metformin 1,000 mg tablet 1,000 mg PO BID #180 tab 02/24/19 04/02/19 Rx albuterol sulfate HFA 90 2 puffs INH Q4H PRN gm 02/27/19 04/02/19 History mcg/actuation aerosol inhaler ferrous sulfate 325 mg (65 mg 325 mg PO BID tab 02/27/19 04/02/19 History iron) tablet fluticasone propionate 50 2 sprays INTRANASAL QAM 02/27/19 04/02/19 History mcg/actuation nasal spray,suspension furosemide 20 mg tablet 20 mg PO BID 02/27/19 04/02/19 History levothyroxine 75 mcg tablet 75 mcg PO Q2D tab 02/27/19 04/02/19 History magnesium 250 mg tablet 250 mg PO BID tab 02/27/19 04/02/19 History pantoprazole 40 mg tablet,delayed 40 mg PO QAM 02/27/19 04/02/19 History release glimepiride 3.5 mg PO QAM 03/05/19 04/02/19 History levothyroxine 37.5 mcg PO Q2D 03/05/19 04/02/19 History escitalopram oxalate 10 mg PO QAM 04/02/19 04/02/19 History Patient History Medical History Diastolic CHF (Chronic) Anxiety Depression (Chronic) Hypothyroidism GERD (gastroesophageal reflux disease) (Chronic) Hx of prostatic malignancy HLD (hyperlipidemia) HTN (hypertension) (Acute) COPD (chronic obstructive pulmonary disease) with acute bronchitis (Chronic 09/02/13) Diabetes (Chronic) Anemia Heart disease (Acute) IRREGULAR RHYTHYM Atrial flutter (Acute) on xarelto Kidney stones (Acute) Pleural effusion (Acute) HX OF Chronic steroid use Mild HOCM (hypertrophic obstructive cardiomyopathy) On anticoagulant therapy xarelto daily On home oxygen therapy 2L N/C at hs Social History Preferred Language: Cymro Communication Ability: Effective Marker Shipments Required: No Beliefs That Will Affect Care: None marital status: Current Living Situation: Spouse Feels Safe at Home: Yes Smoking Status: Former smoker Second Hand Exposure: No ; Hx Alcohol Use: No Hx Substance Use: No Physical Exam Physical Exam: Gen.: No acute distress. Alert and oriented. HEENT: Anicteric sclera. Neck: No JVD. No bruits. Normal carotid upstrokes bilaterally. Cardiac: PMI was nondisplaced. No ventricular heave. Regular. Normal S1-S2. 2/6 systolic murmur best heard at the apex. No rubs, or gallops. Pulmonary: Decreased breath sounds bilaterally but otherwise clear to auscultation bilaterally without wheezes, rales, or rhonchi. Abdomen: Soft, nontender, nondistended, with normoactive bowel sounds. No bruits noted. Extremities: 2+ radial pulses bilaterally. 2+ posterior tibialis pulses bilaterally. Trace right lower extremity edema (reported as chronic). No cyanosis. No palpable cords. Psychiatric: Affect appears appropriate. Results & Data Vital Signs (Past 12 Hours) Vital Signs Temp Pulse Resp BP Pulse Ox 04/03/19 15:36 36.5 C 73 18 106/58 L 99 04/03/19 15:17 75 18 97 04/03/19 11:26 66 16 95 04/03/19 07:43 36.4 C L 79 18 107/61 99 04/03/19 06:50 76 16 98 Laboratory Results Laboratory Results - last 24 hr 04/02/19 04/02/19 04/02/19 19:45 19:45 23:34 WBC 17.66 H RBC 3.89 L Hgb 12.1 L Hct 36.1 L MCV 92.8 MCH 31.1 MCHC 33.5 RDW Std Deviation 50.8 H RDW Coeff of Ruddy 15.1 H Plt Count 277 MPV 10.6 H Immature Gran % (Auto) 2.9 Neut % (Auto) 56.8 Lymph % (Auto) 28.4 Bradley % (Auto) 9.9 Eos % (Auto) 1.7 Baso % (Auto) 0.3 Immature Gran # (Auto) 0.52 H Neut # (Auto) 10.03 H Lymph # (Auto) 5.01 H Bradley # (Auto) 1.74 H Eos # (Auto) 0.30 Baso # (Auto) 0.06 Blood Smear Review Echinocytes Sodium 138 Potassium 3.9 Chloride 104 Carbon Dioxide 22 Anion Gap 12.0 H BUN 20 H Creatinine 1.41 H Est Cr Clr Drug Dosing 43.9 Est GFR ( Amer) 53.8 Est GFR (Non-Af Amer) 46.4 BUN/Creatinine Ratio 14.0 Glucose 256 H POC Glucose 368 H* Calcium 9.1 Phosphorus 3.3 Magnesium 2.3 Total Bilirubin 0.3 AST 12 L ALT 38 Alkaline Phosphatase 89 Total Creatine Kinase 109 CK-MB (CK-2) 3.2 CK/CKMB % Calc 2.9 Troponin I 0.051 H* NT-Pro-B Natriuret Pep 368 Total Protein 6.9 Albumin 3.4 Globulin 3.5 Albumin/Globulin Ratio 1.0 Lipase 436 H Beta-Hydroxybutyric Acd 04/02/19 04/03/19 04/03/19 23:35 02:10 02:11 WBC RBC Hgb Hct MCV MCH MCHC RDW Std Deviation RDW Coeff of Ruddy Plt Count MPV Immature Gran % (Auto) Neut % (Auto) Lymph % (Auto) Bradley % (Auto) Eos % (Auto) Baso % (Auto) Immature Gran # (Auto) Neut # (Auto) Lymph # (Auto) Bradley # (Auto) Eos # (Auto) Baso # (Auto) Blood Smear Review Echinocytes Sodium Potassium Chloride Carbon Dioxide Anion Gap BUN Creatinine Est Cr Clr Drug Dosing Est GFR ( Amer) Est GFR (Non-Af Amer) BUN/Creatinine Ratio Glucose POC Glucose 347 H* 337 H* 363 H* Calcium Phosphorus Magnesium Total Bilirubin AST ALT Alkaline Phosphatase Total Creatine Kinase CK-MB (CK-2) CK/CKMB % Calc Troponin I NT-Pro-B Natriuret Pep Total Protein Albumin Globulin Albumin/Globulin Ratio Lipase Beta-Hydroxybutyric Acd 04/03/19 04/03/19 04/03/19 05:37 05:37 07:11 WBC 12.76 H RBC 3.61 L Hgb 11.1 L Hct 33.6 L MCV 93.1 MCH 30.7 MCHC 33.0 RDW Std Deviation 51.5 H RDW Coeff of Ruddy 15.2 H Plt Count 244 MPV 10.3 Immature Gran % (Auto) 2.7 Neut % (Auto) 85.4 Lymph % (Auto) 9.4 Bradley % (Auto) 2.3 Eos % (Auto) 0.1 Baso % (Auto) 0.1 Immature Gran # (Auto) 0.34 H Neut # (Auto) 10.91 H Lymph # (Auto) 1.20 Bradley # (Auto) 0.29 Eos # (Auto) 0.01 Baso # (Auto) 0.01 Blood Smear Review Echinocytes 1+ Sodium Cancelled 138 Potassium Cancelled 5.0 D Chloride Cancelled 108 H Carbon Dioxide Cancelled 22 Anion Gap Cancelled 9.0 BUN Cancelled 18 Creatinine Cancelled 1.29 Est Cr Clr Drug Dosing Cancelled 49.3 Est GFR ( Amer) Cancelled 59.9 Est GFR (Non-Af Amer) Cancelled 51.7 BUN/Creatinine Ratio Cancelled 14.1 Glucose Cancelled 327 H* POC Glucose Calcium Cancelled 8.5 Phosphorus Magnesium Total Bilirubin AST ALT Alkaline Phosphatase Total Creatine Kinase CK-MB (CK-2) CK/CKMB % Calc Troponin I Cancelled 0.035 NT-Pro-B Natriuret Pep Total Protein Albumin Globulin Albumin/Globulin Ratio Lipase Cancelled 151 Beta-Hydroxybutyric Acd 1.75 04/03/19 04/03/19 04/03/19 07:56 11:34 12:14 WBC RBC Hgb Hct MCV MCH MCHC RDW Std Deviation RDW Coeff of Ruddy Plt Count MPV Immature Gran % (Auto) Neut % (Auto) Lymph % (Auto) Bradley % (Auto) Eos % (Auto) Baso % (Auto) Immature Gran # (Auto) Neut # (Auto) Lymph # (Auto) Bradley # (Auto) Eos # (Auto) Baso # (Auto) Blood Smear Review Echinocytes Sodium Potassium Chloride Carbon Dioxide Anion Gap BUN Creatinine Est Cr Clr Drug Dosing Est GFR ( Amer) Est GFR (Non-Af Amer) BUN/Creatinine Ratio Glucose POC Glucose 303 H* 278 H 215 H Calcium Phosphorus Magnesium Total Bilirubin AST ALT Alkaline Phosphatase Total Creatine Kinase CK-MB (CK-2) CK/CKMB % Calc Troponin I NT-Pro-B Natriuret Pep Total Protein Albumin Globulin Albumin/Globulin Ratio Lipase Beta-Hydroxybutyric Acd 04/03/19 17:08 WBC RBC Hgb Hct MCV MCH MCHC RDW Std Deviation RDW Coeff of Ruddy Plt Count MPV Immature Gran % (Auto) Neut % (Auto) Lymph % (Auto) Bradley % (Auto) Eos % (Auto) Baso % (Auto) Immature Gran # (Auto) Neut # (Auto) Lymph # (Auto) Bradley # (Auto) Eos # (Auto) Baso # (Auto) Blood Smear Review Echinocytes Sodium Potassium Chloride Carbon Dioxide Anion Gap BUN Creatinine Est Cr Clr Drug Dosing Est GFR ( Amer) Est GFR (Non-Af Amer) BUN/Creatinine Ratio Glucose POC Glucose 162 H Calcium Phosphorus Magnesium Total Bilirubin AST ALT Alkaline Phosphatase Total Creatine Kinase CK-MB (CK-2) CK/CKMB % Calc Troponin I NT-Pro-B Natriuret Pep Total Protein Albumin Globulin Albumin/Globulin Ratio Lipase Beta-Hydroxybutyric Acd Diagnostic Findings ECG personally reviewed: ECG 04/02/2019: Sinus rhythm with first-degree AV block at 85 bpm. RBBB. LAFB. Echo from 03/30/2019 personally reviewed: Normal LV systolic function. There is systolic anterior motion of the mitral leaflet without clear significant LVOT obstruction based on provided images. There was eccentric mitral regurgitation that did not appear to be severe, possibly moderate. CTA chest 03/30/2019: Chronic trace right pleural effusion. No acute intrathoracic pathology per Radiology. Bronchial wall thickening consistent with chronic bronchitis. Medications Administered Current Inpatient Medications Albuterol (Duoneb) 3 ml NEB Q4R [facility] Stop: 05/03/19 00:00 Last Admin: 04/03/19 15:16 Dose: 3 ml Documented by: Albuterol (Ventolin 0.5% 2.5mg/0.5ml) 2.5 mg NEB Q2H PRN PRN Reason: SOB/Wheeze Stop: 05/02/19 22:42 Dextrose (Dextrose 50%) 25 - 50 ml IV UD PRN; Protocol PRN Reason: Hypoglycemia Protocol Stop: 05/02/19 22:42 Escitalopram Oxalate (Lexapro Tab) 10 mg PO QAM [facility] Stop: 05/03/19 08:59 Last Admin: 04/03/19 08:01 Dose: 10 mg Documented by: Ferrous Sulfate (Feosol) 325 mg PO BID [facility] Stop: 05/03/19 08:59 Last Admin: 04/03/19 08:01 Dose: 325 mg Documented by: Fluticasone Propionate (Flonase) 2 sprays NA QAM [facility] Stop: 05/03/19 08:59 Last Admin: 04/03/19 08:01 Dose: 2 sprays Documented by: Furosemide (Lasix) 20 mg PO BID17 [facility] Stop: 05/03/19 08:59 Last Admin: 04/03/19 17:58 Dose: 20 mg Documented by: Glucagon (Glucagen) 1 mg SQ UD PRN; Protocol PRN Reason: Hypoglycemia Protocol Stop: 05/02/19 22:42 Glucose (Glucose 40%) 15 - 30 gm PO UD PRN; Protocol PRN Reason: Hypoglycemia Protocol Stop: 05/02/19 22:42 Glucose (Dex4 Glucose) 4 - 8 tabs PO UD PRN; Protocol PRN Reason: Hypoglycemia Protocol Stop: 05/02/19 22:42 Methylprednisolone 30 mg/ (Syringe) 0.48 mls @ 1.5 mls/min IV Q8H [facility] Stop: 05/03/19 03:59 Last Admin: 04/03/19 12:27 Dose: 1.5 mls/min Documented by: Insulin Aspart (Novolog Flexpen) 0 units SC ACHS [facility] Stop: 05/02/19 22:59 Last Admin: 04/03/19 17:59 Dose: 11 units Documented by: Insulin Aspart (Novolog Flexpen) 0 units SC 0000,0400 [facility] Stop: 04/04/19 04:01 Insulin Glargine (Lantus Solostar Pen) 20 units SC BID [facility] Stop: 05/03/19 20:59 Levothyroxine Sodium (Synthroid) 75 mcg PO Q48H [facility] Stop: 05/04/19 06:29 Levothyroxine Sodium (Synthroid) 37.5 mcg PO Q48H [facility] Stop: 05/03/19 06:29 Last Admin: 04/03/19 05:40 Dose: 37.5 mcg Documented by: Magnesium Oxide (Mag-Ox) 400 mg PO BID [facility] Stop: 05/02/19 22:59 Last Admin: 04/03/19 08:01 Dose: 400 mg Documented by: Metoprolol Tartrate (Lopressor) 25 mg PO BID [facility] Stop: 05/03/19 20:59 Miscellaneous (Carbohydrates For Hypoglycemia) 15 - 30 gm PO UD PRN PRN Reason: Hypoglycemia Treatment Stop: 05/02/19 22:42 Miscellaneous Information (Consult Glycemic Management Pharmacy) 1 ea N/A UD PRN PRN Reason: Consult Stop: 05/03/19 09:02 Pantoprazole Sodium (Protonix) 40 mg PO QAM [facility] Stop: 05/03/19 08:59 Last Admin: 04/03/19 08:01 Dose: 40 mg Documented by: Rivaroxaban (Xarelto) 20 mg PO QDD [facility] Stop: 05/03/19 16:29 Last Admin: 04/03/19 17:30 Dose: 20 mg Documented by: Simvastatin (Zocor) 80 mg PO HS [facility] Stop: 05/03/19 20:59 PG Care Time/CCT Total # of Minutes Spent Total Time Spent with Patient: Total time spent is greater than 50% in coordination of care (as documented) at patient's floor/unit and/or counseling patient: (1) Chest pain Chest pain type: unspecified Qualified Code(s): R07.9 - Chest pain, unspecified
[2019-04-03] MEDS: INSULIN GLARGINE SOLOSTAR 100 UNITS/ML 3 ML PEN SC SCH (21:06)
[2019-04-03] MEDS: METOPROLOL TARTRATE 25 MG TAB PO SCH (21:07)
[2019-04-03] MEDS: SIMVASTATIN 80 MG TAB PO SCH (21:09)
[2019-04-04] MEDS: INSULIN ASPART 100 UNITS/ML 3 ML PEN SC SCH ×6 (00:17→20:28)
[2019-04-04] MEDS: ALBUT/IPRATROP 3MG/0.5MG NEB 3 ML VIAL NEB SCH ×6 (03:25→23:21)
[2019-04-04] MEDS: methylPREDNISolone 30 MG in SYRINGE 0 ML IV SCH (04:11)
[2019-04-04] MEDS ORDERED: LEVOTHYROXINE SODIUM 75 MCG TABLET PO SCH (06:30)
[2019-04-04 07:19] LABS: Basophils # (auto) 0.01 K/uL (0-0.2); Basophils % (auto) 0.1 %; Hematocrit (blood only) 31.1 % (42-52); Hemoglobin 10.2 g/dL (14.0-18.0); Immature Granulocytes # (auto) 0.16 K/uL (0.00-0.02); Immature Granulocytes % (auto) 1.2 %; Lymphocytes # (auto) 1.09 K/uL (1.2-3.4); Lymphocytes % (auto) 8.4 %; Mean Corpuscular Hgb Conc 32.8 g/dL (32-36); Mean Corpuscular Volume 93.7 fL (80-100); Mean Platelet Volume 10.3 fL (7.4-10.4); Monocytes # (auto) 0.51 K/uL (0.11-0.59); Monocytes % (auto) 3.9 %; Neutrophils # (auto) 11.15 K/uL (1.4-6.5); Neutrophils % (auto) 86.4 %; Platelet Count 231 K/uL (130-400); RDW Coefficient of Variation 15.5 % (11.5-14.5); RDW Standard Deviation 52.4 fL (36.4-46.3); Red Blood Count 3.32 M/uL (4.7-6.1); White Blood Count 12.92 K/uL (4.8-10.8)
[2019-04-04 07:50] LABS: BUN Creatinine Ratio 19.2 (10-20); Calcium 8.6 mg/dl (8.5-10.1); Est GFR (African American) 65.3; Est GFR (Non-African American) 56.4; Potassium 4.6 mmol/L (3.5-5.1)
[2019-04-04] MEDS ORDERED: INSULIN GLARGINE SOLOSTAR 100 UNITS/ML 3 ML PEN SC SCH (09:00)
[2019-04-04] MEDS: FLUTICASONE PROPIONATE NA SPR 16 GM BTL SCH (09:22)
[2019-04-04] MEDS: FERROUS SULFATE 325 MG TAB PO SCH ×2 (09:22→20:28)
[2019-04-04] MEDS: PANTOprazole 40 MG TAB PO SCH (09:24)
[2019-04-04] MEDS: ESCITALOPRAM OXALATE 20 MG TAB PO SCH (09:24)
[2019-04-04] MEDS: FUROSEMIDE 20 MG TAB PO SCH ×2 (09:24→16:44)
[2019-04-04] MEDS: MAGNESIUM OXIDE 400 MG TAB PO SCH ×2 (09:24→20:27)
[2019-04-04] MEDS: predniSONE 20 MG TAB PO SCH ×2 (09:24→20:27)
--- NOTE | 2019-04-04 10:49 | Cardiology Progress Note ---
Date of Service April 04, 2019 Assessment & Plan (1) Chest pain: 2. COPD 3. Paroxysmal atrial flutter post ablation 4. Mild dynamic LV outflow tract obstruction on last echo 5. Chronic diastolic heart failure 6. Persistent anemia 7. Type 2 diabetes Patient chest pain-free since admission. Reported wheezing on admission has resolved. On exam well-perfused with no signs of heart failure. No systolic murmur appreciated today Minimal troponin elevation. Second troponin pending Suspicion that presenting chest pain secondary to ACS relatively low. With patient's risk factors though reasonable to obtain stress test at some point. Feel this can be done as an outpatient assuming troponin flat. Agree with initiation of low-dose metoprolol. Continue Xarelto. Continue maintenance twice daily diuretic. We will arrange for outpatient stress test with close cardiology follow-up. Subjective Feeling well today. Breathing difficulty resolved. No chest pain overnight. No other new complaints. Wants to go home. Review of Systems Review of Systems: All systems reviewed & are unremarkable except as noted in HPI & below Physical Exam Physical Exam: General: Comfortable, no acute distress HEENT: Sclerae anicteric, mucous membranes moist Lungs: Clear to auscultation, prolonged expiratory, no rales Cardiac: Regular rate and rhythm, no murmurs. No JVD. Abdomen: Soft, nontender, nondistended, positive bowel sounds. Extremities: Warm, well perfused, no edema. 2+ radial pulses Skin: No rashes or lesions. Neuro: Nonfocal Psych: Alert oriented Results & Data Vital Signs (Past 12 Hours) Vital Signs Temp Pulse Resp BP Pulse Ox 04/04/19 07:21 76 16 98 04/04/19 07:18 36.4 C L 73 18 108/63 98 04/04/19 03:25 77 16 98 04/03/19 23:15 79 16 98 04/03/19 23:02 36.7 C 84 19 114/54 L 97 PG Care Time/CCT Total # of Minutes Spent Total Time Spent with Patient: Total time spent is greater than 50% in coordination of care (as documented) at patient's floor/unit and/or counseling patient: (1) Chest pain Chest pain type: unspecified Qualified Code(s): R07.9 - Chest pain, unspecified
[2019-04-04] MEDS: METOPROLOL TARTRATE 25 MG TAB PO SCH ×2 (11:02→20:27)
[2019-04-04] MEDS ORDERED: INSULIN HUMAN REGULAR PER UNIT 8 UNITS in SYRINGE 7.92 ML IV ONE (12:45)
--- NOTE | 2019-04-04 14:30 | Pharmacy Report ---
Glycemic Control Progress Note - Date of Service April 04, 2019 - Scope Glycemic Pharmacist consulted for glycemic control to write orders per [facility] inpatient glycemic control protocol. - Objective Accuchecks BSG(last 24 hours):: 04/03/19 04/03/19 04/04/19 17:08 20:13 00:11 Glucose POC Glucose 162 H 291 H 233 H 04/04/19 04/04/19 04/04/19 04:08 06:37 07:57 Glucose 273 H POC Glucose 241 H 263 H 04/04/19 04/04/19 12:15 12:16 Glucose POC Glucose 316 H* 302 H* - Recent Pertinent Medications The patient is currently receiving: * Basal insulin: Lantus 20 units every 12 hours * Correctional Insulin: Novolog Correction per scale ACHS Goal Range: Low 110 mg/dL - High 140 mg/dL Correction Factor: 15 mg/dL/unit * Prandial insulin: Per carb ratio of 1 unit per 5 grams CHO consumed - Outpatient Anti-Diabetic Meds METFORMIN 1 GM PO BID PLUS GLIMEPIRIDE 3.5 MG DAILY - Assessment & Plan ASSESSMENT: * See progress note from 04/03/19 for more background info, in short: * Pt receiving SQ basal bolus insulin regimen for hyperglycemia secondary to baseline DM (outpatient regimen on hold),stress/infection, and on Solu-Medrol 30 mg IV q8 hours. * Patient is currently receiving an average of 110 units of insulin per day * 43 units of basal insulin * 67 units of prandial/correctional insulin * BSGs ranging 162 - 303 mg/dl over the past 24hrs * Changes needed to insulin regimen: * AM Fasting BSG = 273 mg/dl. This is above goal range for patient based on inpatient targets and co-morbidities. The patient received an extra 10 units of Novolog overnight so ordered 30 units of Lantus today then 20 un its at bedtime. * Post-prandial BSGs trended downwards yesterday. Tightened at breakfast to CF of 12 and CR of 4 since patient trended upwards from dinner to bedtime. Blood sugar over 300 mg/dL at lunch. Nursing administered 12 units of Novolog instead of the 21 units per the calculator. Ordered IV insulin bolus plus another check at 1500. * Total daily dose = ? units. TBD once IV steroids cut. PLAN FOR INPATIENT GLYCEMIC CONTROL: * Continuing Lantus 20 units SQ BID * TIGHTENING correction factor to 12 mg/dl/unit * TIGHTENING carb ratio to 1 unit per 4 grams CHO consumed * Continuing goal range of Low 110 mg/dL - High 140 mg/dL RECOMMENDATIONS FOR DISCHARGE: * TBD once IV steroids are discontinued. * Please note that the plan above was derived based on current level of insulin resistance and hospital stress. These recommendations are appropriate for inpatient admission only. Plan of care upon discharge will need to be reassessed to avoid potential outpatient hypo/hyperglycemia. Thank you.
--- NOTE | 2019-04-04 15:13 | Family Medicine Progress Note ---
Date of Service April 04, 2019 Assessment & Plan (1) Shortness of breath: 79 y/o M with extensive PMH presents after episode of SOB, wheezing, and bandlike chest pressure along with N/V after doing outside work. This is his second admission this week for same issue. SOB -relief with bronchodilators. Breathing comfortably at present, no respiratory distress, adequate oxygenation on RA -Diffuse inspiratory and expiratory wheezing on exam with prolonged expiratory phase favor COPD exacerbation. Less likely secondary to CHF- BNP normal -no infiltrate on CXR -DuoNeb q 4 hours -Albuterol q 2 hours PRN -DC'd Solumedrol 30mg IV TID. 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 Repeat trop downtrended and normal Cardiology: Could be possible related to LVOT obstruction or just transient. Unlikely to be acute coronary syndrome given that his troponin would be more elevated. Start on low-dose metoprolol 25 mg twice daily. Will arrange for outpatient stress test with close cardiology follow-up. Diastolic CHF Patient does not appear to be in acute exacerbation of CHF at present. Continue Lasix 20mg po BID BNP normal Continue to monitor I/O, weights Depression Chronic. Well controlled Continue escitalopram 10mg po daily Hypothyroidism Chronic Continue Synthroid regimen, 75mcg and 37.5mcg QOD GERD Chronic. Well controlled Continue PO protonix HLD Chronic. Continue Simvastatin Anemia Stable, normochromic/normocytic. No active bleeding. Cont trend Continue FESO4 Diabetes HgAIC=9.9 on 03/30/19 Appreciate glycemic consult management Atrial fibrillation Cont Xarelto anticoagulation FEN/GI : AHA/CC diet DVT Prophylaxis - Xarelto for AF DNR/DNI Dispo : [facility], pending Cards eval Supervising Physician Co-Signing Physician Notes Patient seen and examined with PGY-2 Dr. Cordova. Agree with history, exam findings, assessment and plan of care as outlined with the following updates/corrections. In brief, Mr. 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 He has been chest pain free since admission. Also seen by cardiology. At this point, thought process is that this may be LVOT obstruction. He was started on metoprolol 25mg BID. His heart rates and BPs have been holding up well at this point. He is being treated for a COPD exacerbation as well as he was wheezing on admission. Will continue to treat as mild COPD exacerbation. Instead of a pred taper, could likely just use a burst given his quick turn around with just one dose of steroids. Dipso: monitoring HR and BP at this point with initiation of beta morales. If no issues over night, anticipate discharge home tomorrow. Subjective 79 yo M found in bed this AM in NAD. No reported overnight events. Breathing continues to be good, no issues. Denies SOB, CP, SLOAN, N/V. No other acute concerns or complaints. Pt desires to go home, agreeable to tomorrow d/c. Review of Systems Review of Systems: All systems reviewed & are unremarkable except as noted in HPI & below Physical Exam Constitutional: WD/WN, vitals as above Eyes: PERRL, conjunctivae normal, anicteric sclerae Respiratory: normal respiratory effort, lungs clear to auscultation Cardiovascular: RRR, no murmur, no edema Gastrointestinal (Abdomen): normal bowel sounds, soft, nontender, no hepatosplenomegaly Skin: no rashes, warm and dry Psychiatric: A+Ox3, euthymic affect Lymphatic: mild LE edema, chronic Results & Data Vital Signs (Past 12 Hours) Vital Signs Temp Pulse Resp BP Pulse Ox 04/04/19 15:11 73 18 97 04/04/19 11:23 71 18 98 04/04/19 07:21 76 16 98 04/04/19 07:18 36.4 C L 73 18 108/63 98 04/04/19 03:25 77 16 98 Laboratory Results Laboratory Results - last 24 hr 04/03/19 04/03/19 04/04/19 17:08 20:13 00:11 WBC RBC Hgb Hct MCV MCH MCHC RDW Std Deviation RDW Coeff of Ruddy Plt Count MPV Immature Gran % (Auto) Neut % (Auto) Lymph % (Auto) [place] % (Auto) Eos % (Auto) Baso % (Auto) Immature Gran # (Auto) Neut # (Auto) Lymph # (Auto) [place] # (Auto) Eos # (Auto) Baso # (Auto) Sodium Potassium Chloride Carbon Dioxide Anion Gap BUN Creatinine Est Cr Clr Drug Dosing Est GFR ( Amer) Est GFR (Non-Af Amer) BUN/Creatinine Ratio Glucose POC Glucose 162 H 291 H 233 H Calcium 04/04/19 04/04/19 04/04/19 04:08 06:37 06:37 WBC 12.92 H RBC 3.32 L Hgb 10.2 L Hct 31.1 L MCV 93.7 MCH 30.7 MCHC 32.8 RDW Std Deviation 52.4 H RDW Coeff of Ruddy 15.5 H Plt Count 231 MPV 10.3 Immature Gran % (Auto) 1.2 Neut % (Auto) 86.4 Lymph % (Auto) 8.4 [place] % (Auto) 3.9 Eos % (Auto) 0.0 Baso % (Auto) 0.1 Immature Gran # (Auto) 0.16 H Neut # (Auto) 11.15 H Lymph # (Auto) 1.09 L [place] # (Auto) 0.51 Eos # (Auto) 0.00 Baso # (Auto) 0.01 Sodium 138 Potassium 4.6 Chloride 106 Carbon Dioxide 25 Anion Gap 7.0 BUN 23 H Creatinine 1.20 Est Cr Clr Drug Dosing 53.0 Est GFR ( Amer) 65.3 Est GFR (Non-Af Amer) 56.4 BUN/Creatinine Ratio 19.2 Glucose 273 H POC Glucose 241 H Calcium 8.6 04/04/19 04/04/19 04/04/19 07:57 12:15 12:16 WBC RBC Hgb Hct MCV MCH MCHC RDW Std Deviation RDW Coeff of Ruddy Plt Count MPV Immature Gran % (Auto) Neut % (Auto) Lymph % (Auto) [place] % (Auto) Eos % (Auto) Baso % (Auto) Immature Gran # (Auto) Neut # (Auto) Lymph # (Auto) [place] # (Auto) Eos # (Auto) Baso # (Auto) Sodium Potassium Chloride Carbon Dioxide Anion Gap BUN Creatinine Est Cr Clr Drug Dosing Est GFR ( Amer) Est GFR (Non-Af Amer) BUN/Creatinine Ratio Glucose POC Glucose 263 H 316 H* 302 H* Calcium 04/04/19 15:00 WBC RBC Hgb Hct MCV MCH MCHC RDW Std Deviation RDW Coeff of Ruddy Plt Count MPV Immature Gran % (Auto) Neut % (Auto) Lymph % (Auto) [place] % (Auto) Eos % (Auto) Baso % (Auto) Immature Gran # (Auto) Neut # (Auto) Lymph # (Auto) [place] # (Auto) Eos # (Auto) Baso # (Auto) Sodium Potassium Chloride Carbon Dioxide Anion Gap BUN Creatinine Est Cr Clr Drug Dosing Est GFR ( Amer) Est GFR (Non-Af Amer) BUN/Creatinine Ratio Glucose POC Glucose 102 H Calcium Medications Administered Current Inpatient Medications Albuterol (Duoneb) 3 ml NEB Q4R [facility] Stop: 05/03/19 00:00 Last Admin: 04/04/19 15:10 Dose: 3 ml Documented by: Albuterol (Ventolin 0.5% 2.5mg/0.5ml) 2.5 mg NEB Q2H PRN PRN Reason: SOB/Wheeze Stop: 05/02/19 22:42 Dextrose (Dextrose 50%) 25 - 50 ml IV UD PRN; Protocol PRN Reason: Hypoglycemia Protocol Stop: 05/02/19 22:42 Diphenhydramine HCl (Benadryl Capsule) 25 mg PO ONE PRN PRN Reason: Rash Stop: 05/03/19 20:31 Escitalopram Oxalate (Lexapro Tab) 10 mg PO QAM [facility] Stop: 05/03/19 08:59 Last Admin: 04/04/19 09:24 Dose: 10 mg Documented by: Ferrous Sulfate (Feosol) 325 mg PO BID [facility] Stop: 05/03/19 08:59 Last Admin: 04/04/19 09:22 Dose: 325 mg Documented by: Fluticasone Propionate (Flonase) 2 sprays NA QAM [facility] Stop: 05/03/19 08:59 Last Admin: 04/04/19 09:22 Dose: 2 sprays Documented by: Furosemide (Lasix) 20 mg PO BID17 [facility] Stop: 05/03/19 08:59 Last Admin: 04/04/19 09:24 Dose: 20 mg Documented by: Glucagon (Glucagen) 1 mg SQ UD PRN; Protocol PRN Reason: Hypoglycemia Protocol Stop: 05/02/19 22:42 Glucose (Glucose 40%) 15 - 30 gm PO UD PRN; Protocol PRN Reason: Hypoglycemia Protocol Stop: 05/02/19 22:42 Glucose (Dex4 Glucose) 4 - 8 tabs PO UD PRN; Protocol PRN Reason: Hypoglycemia Protocol Stop: 05/02/19 22:42 Insulin Aspart (Novolog Flexpen) 0 units SC ACHS [facility] Stop: 05/02/19 22:59 Last Admin: 04/04/19 13:03 Dose: 27 units Documented by: Insulin Glargine (Lantus Solostar Pen) 20 units SC BID [facility] Stop: 05/03/19 20:59 Last Admin: 04/03/19 21:06 Dose: 20 units Documented by: Levothyroxine Sodium (Synthroid) 75 mcg PO Q48H [facility] Stop: 05/04/19 06:29 Last Admin: 04/04/19 06:15 Dose: 75 mcg Documented by: Levothyroxine Sodium (Synthroid) 37.5 mcg PO Q48H [facility] Stop: 05/03/19 06:29 Last Admin: 04/03/19 05:40 Dose: 37.5 mcg Documented by: Magnesium Oxide (Mag-Ox) 400 mg PO BID [facility] Stop: 05/02/19 22:59 Last Admin: 04/04/19 09:24 Dose: 400 mg Documented by: Metoprolol Tartrate (Lopressor) 25 mg PO BID [facility] Stop: 05/03/19 20:59 Last Admin: 04/04/19 11:02 Dose: 25 mg Documented by: Miscellaneous (Carbohydrates For Hypoglycemia) 15 - 30 gm PO UD PRN PRN Reason: Hypoglycemia Treatment Stop: 05/02/19 22:42 Miscellaneous Information (Consult Glycemic Management Pharmacy) 1 ea N/A UD PRN PRN Reason: Consult Stop: 05/03/19 09:02 Pantoprazole Sodium (Protonix) 40 mg PO QAM [facility] Stop: 05/03/19 08:59 Last Admin: 04/04/19 09:24 Dose: 40 mg Documented by: Prednisone (Prednisone) 40 mg PO BID [facility] Stop: 05/04/19 08:59 Last Admin: 04/04/19 09:24 Dose: 40 mg Documented by: Rivaroxaban (Xarelto) 20 mg PO QDD [facility] Stop: 05/03/19 16:29 Last Admin: 04/03/19 17:30 Dose: 20 mg Documented by: Simvastatin (Zocor) 80 mg PO HS [facility] Stop: 05/03/19 20:59 Last Admin: 04/03/19 21:09 Dose: 80 mg Documented by: PG Care Time/CCT Total # of Minutes Spent Total Time Spent with Patient: Total time spent is greater than 50% in coordination of care (as documented) at patient's floor/unit and/or counseling patient: Resident Activity Tracking Resident Involvement: Resident Care Provided Care Provided: Adult Hospital Medicine
[2019-04-04] MEDS: RIVAROXABAN 20 MG TAB PO SCH (16:43)
[2019-04-04] MEDS ORDERED: ONDANSETRON 4 MG TAB PO PRN (17:47)
[2019-04-04] MEDS ORDERED: ONDANSETRON INJ 2 MG/ML 2 ML VIAL ONE (18:01)
[2019-04-04] MEDS ORDERED: Nursing to Pharmacy Communication ONE (18:18)
[2019-04-04] MEDS ORDERED: ONDANSETRON INJ 2 MG/ML 2 ML VIAL IV PRN (18:22)
[2019-04-04] MEDS: SIMVASTATIN 80 MG TAB PO SCH (20:27)
[2019-04-04] MEDS: INSULIN GLARGINE SOLOSTAR 100 UNITS/ML 3 ML PEN SC SCH (20:28)
[2019-04-05] MEDS: ALBUT/IPRATROP 3MG/0.5MG NEB 3 ML VIAL NEB SCH ×4 (03:40→15:35)
[2019-04-05 06:39] LABS: Basophils # (auto) 0.01 K/uL (0-0.2); Basophils % (auto) 0.1 %; Hematocrit (blood only) 32.3 % (42-52); Hemoglobin 10.4 g/dL (14.0-18.0); Immature Granulocytes # (auto) 0.13 K/uL (0.00-0.02); Immature Granulocytes % (auto) 1.1 %; Lymphocytes # (auto) 1.17 K/uL (1.2-3.4); Lymphocytes % (auto) 9.7 %; Mean Corpuscular Hgb Conc 32.2 g/dL (32-36); Mean Corpuscular Volume 94.7 fL (80-100); Mean Platelet Volume 10.6 fL (7.4-10.4); Monocytes # (auto) 0.71 K/uL (0.11-0.59); Monocytes % (auto) 5.9 %; Neutrophils % (auto) 83.2 %; Nucleated RBC # (auto) 0.06 K/uL (0-0); Nucleated RBC % (auto) 0.5 %; Platelet Count 235 K/uL (130-400); RDW Coefficient of Variation 15.6 % (11.5-14.5); RDW Standard Deviation 54.3 fL (36.4-46.3); Red Blood Count 3.41 M/uL (4.7-6.1); White Blood Count 12.12 K/uL (4.8-10.8)
[2019-04-05] MEDS: LEVOTHYROXINE SODIUM 75 MCG TABLET PO SCH (07:00)
[2019-04-05 07:20] LABS: BUN Creatinine Ratio 27.2 (10-20); Calcium 8.4 mg/dl (8.5-10.1); Creatinine Clr Calc Pharmacy 48.7 ml/min; Est GFR (African American) 59.9; Est GFR (Non-African American) 51.7; Potassium 4.8 mmol/L (3.5-5.1)
[2019-04-05 07:30] LABS: Beta-Hydroxybutyrate 1.79 mg/dl (0.2-2.81)
[2019-04-05] MEDS ORDERED: INSULIN HUMAN NPH SC SCH (08:00)
[2019-04-05] MEDS ORDERED: predniSONE 20 MG TAB PO SCH (08:00)
[2019-04-05] MEDS: MAGNESIUM OXIDE 400 MG TAB PO SCH (09:09)
[2019-04-05] MEDS: PANTOprazole 40 MG TAB PO SCH (09:09)
[2019-04-05] MEDS: FUROSEMIDE 20 MG TAB PO SCH (09:09)
[2019-04-05] MEDS: ESCITALOPRAM OXALATE 20 MG TAB PO SCH (09:10)
[2019-04-05] MEDS: FERROUS SULFATE 325 MG TAB PO SCH (09:10)
[2019-04-05] MEDS: FLUTICASONE PROPIONATE NA SPR 16 GM BTL SCH (09:10)
[2019-04-05] MEDS: INSULIN ASPART 100 UNITS/ML 3 ML PEN SC SCH ×2 (09:14→13:00)
[2019-04-05] MEDS: METOPROLOL TARTRATE 25 MG TAB PO SCH (09:29)
--- NOTE | 2019-04-05 12:39 | Pharmacy Report ---
Pharmacy Glycemic Short Note 2 - Date of Service April 05, 2019 - Glycemic Short BSG Results (Last 24 hours): 04/04/19 04/04/19 04/04/19 15:00 17:02 20:05 Glucose POC Glucose 102 H 73 162 H 04/05/19 04/05/19 04/05/19 06:05 07:35 12:15 Glucose 305 H* POC Glucose 300 H 378 H* OUTPATIENT ANTIDIABETIC REGIMEN: * Metformin 1,000mg PO BIDM * Glimepiride Daily * A1c = 9.9% on 03/30/19 ASSESSMENT: * 79yo T2DM male with sub-adequate degree of outpatient control per A1c. Goal A1c likely closer to 8% based on age/co-morbidities. * Poor glycemic control compounded by steroids. Started at Solumedrol 30mg IV Q8hrs and tapered down to prednisone 40mg PO BIDM * AM fasting BSGs have been severely elevated which continues into pre-lunch. Dinner and HS BSGs closer to goal range after repeated SQ & IV insulin doses. * Pt experienced significant N/V when BSG was 73mg/dl yesterday prior to dinner. Will not give IV insulin bolus today for severe hyperglycemia to prevent large BSG swing and induce nausea. * NPH insulin is used to counteract the hyperglycemic effect of prednisone. The rationale for this approach is that the pharmacodynamics profile of NPH, with a peak effect of 4-8hrs and duration of action of 12-16hrs, mirrors the pharmacodynamics of prednisone. NPH should be dosed at the same time that prednisone is given * The dose of NPH given is dependent on the steroid dose given * For doses of prednisone 40mg/day or above NPH dose should be 0.4 units/kg * NPH dosing above is given in addition to patients basal insulin needs * Typically, patients will also need rapid-acting insulin with meals PLAN FOR INPATIENT GLYCEMIC CONTROL: * Hold outpatient oral diabetes medications * Basal insulin * Lantus 14 units SQ HS * Steroid induced hyperglycemia * NPH 30 units SQ BIDM- to be given with prednisone; hold if prednisone held. * Bolus insulin * NovoLog per scale ACHS or Q6hrs while NPO * Goal Range: Low 110 mg/dL - High 160 mg/dL * Correction Factor: 25 mg/dL/unit * Nutritional / Prandial insulin per carb ratio of 1 unit per 5 grams CHO consumed
--- NOTE | 2019-04-05 13:25 | Discharge Summary ---
Date of Service April 05, 2019 Admission HPI Per Admitting Provider Mr. Gibson is a pleasant 79yo C male with multiple medical comorbidities, multiple recent hospitalizations most recently at [facility] from 03/29 - 04/01 with complaint of chest pain and fatigue. Patient with mild elevation in troponin thought to be secondary to demand ischemia. He was discharged home yesterday. He did well overnight and felt well in the morning. Around 14:00 he developed worsening SOB, wheeze and bandlike chest tightness as well as some nausea and non-bloody/non-bilious emesis. His checked his oxygenation at that time and said it was 95%. He used his nebulizer and took his rescue inhaler at home with mild relief in his SOB. Presently he feels improved after receiving a neb treatment in the ER. His CP has resolved. He does report some mildly increased LE edema and weight gain as well. ER Course: Solumedrol, Albuterol, NSS Principal Diagnosis mild copd exacerbation Discharge Exam Constitutional WD/WN, vitals as above Eyes PERRL, conjunctivae normal, anicteric sclerae Respiratory normal respiratory effort, lungs clear to auscultation Cardiovascular RRR, no murmur, no edema Gastrointestinal (Abdomen) normal bowel sounds, soft, nontender, no hepatosplenomegaly Skin no rashes, warm and dry Psychiatric A+Ox3, euthymic affect Lymphatic mild LE edema, chronic Discharge Data Allergies Allergy/AdvReac Type Severity Reaction Status Date / Time moxifloxacin Allergy Severe throat Verified 03/29/19 17:54 swelling ofloxacin Allergy Severe SWELLING Verified 03/29/19 17:54 AROUND FACE Quinolones Allergy Severe ANAPHYLAXIS Verified 03/29/19 17:55 formoterol Allergy Intermediate RASH Verified 03/29/19 17:55 Sulfa (Sulfonamide Allergy Intermediate severe red Verified 03/29/19 17:55 Antibiotics) rash Consultations 04/02/19 20:41 ED Decision to Admit Stat 04/03/19 16:01 Consult Cardiology Routine Hospital Course (1) Shortness of breath: 79 y/o M with extensive PMH presents after episode of SOB, wheezing, and bandlike chest pressure along with N/V after doing outside work. This is his second admission this week for same issue. The following is the medical management during his stay here: SOB -pt had relief with bronchodilators and had a short turnaround to where he was breathing comfortably at present, no respiratory distress, adequate oxygenation on RA -Diffuse inspiratory and expiratory wheezing on exam with prolonged expiratory phase favor COPD exacerbation and we tx as such. Less likely secondary to CHF- BNP normal -no infiltrate on CXR -we cont DuoNeb q 4 hours and Albuterol q 2 hours PRN -Initially on Solumedrol 30mg IV TID, then started on Prednisone PO 40 mg BID. Discharged home with 3 more days of 40mg prednisone daily then he will decrease back to his chronic 10mg prednisone. 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 Unlikely to be acute coronary syndrome given that his troponin would be more elevated. Start on low-dose metoprolol 25 mg BID. Recommend outpatient stress test with close cardiology follow-up. Diastolic CHF Patient did not appear to be in acute exacerbation of CHF Continue Lasix 20mg po BID BNP normal Depression Chronic. Well controlled Continue escitalopram 10mg po daily Hypothyroidism Chronic Continue Synthroid regimen, 75mcg and 37.5mcg QOD GERD Chronic. Well controlled Continue PO protonix HLD Chronic. Continue Simvastatin Anemia Stable, normochromic/normocytic. No active bleeding. Cont trend Continue FESO4 Diabetes HgAIC=9.9 on 03/30/19 BSG elevated here, likely secondary to steroids and holding metformin + glimepiride Resume home metformin and glimepiride on discharge with expectations that sugars may be a bit high while he is on this short course of prednisone 40mg before he decreases down to his chronic 10mg prednisone dosage. Atrial fibrillation Cont Xarelto anticoagulation At time of d/c, pt did not have any other acute concerns or complaints. Total Time Total Time Spent Total Time Spent (In Minutes): 35 Discharge Plan Discharge Items Patient Disposition: Home - Self-Care Reason For Visit: COPD Discharge Diagnosis: copd exacerbation, chest pressure Discharge Goals: Decrease discomfort, Improve disease control and Therapeutic intervention Activity: Per 'Additional Instructions' section Non-emergency contact: Primary Care Provider Call non-emergency contact if: you have any medication questions, your symptoms worsen and your pain is not controlled Follow-up/Referrals: Howard Gunderson MD [Primary Care Provider] - Diet: Carb Consistent or DM2 Addtl Provider Instructions: You were admitted with concerns of shortness of breath, wheezing, and a chest pressure. You were treated as having a COPD exacerbation, which is what brought you in previously earlier in the week. However, because this was your second admission for similar complaints, we obtained a cardiology consult. They thought that your chest symptoms could possibly be due to a LVOT (left ventricular outflow obstruction) or that it could have just been transient. This was unlikely to be acute coronary syndrome given that your heart enzyme markers were not significantly elevated. Please follow the below instructions on discharge: -You will continue a oral steroid burst as follows: 40 mg for 3 days. Then after these 3 days resume your normal prednisone 10 mg every morning -You will continue a new medication for your heart that we started here: metoprolol 25 mg twice daily. -Cardiology will arrange for an outpatient stress test to be done in the future. If you do not hear from them call -Please see your PCP within one week of discharge -If you have similar symptoms that persist/worsen, then please come back in Prescriptions: New metoprolol tartrate 25 mg tablet 25 mg PO BID Qty: 60 RF: 0 prednisone 10 mg tablet 10 mg PO DAILY Qty: 12 RF: 0 Continued metformin 1,000 mg tablet 1,000 mg PO BID Qty: 180 RF: 3 albuterol sulfate 90 mcg/actuation HFA aerosol inhaler 2 puffs INH Q4H PRN (Reason: Shortness Of Breath) RF: 0 fluticasone propionate 50 mcg/actuation spray,suspension 2 sprays intranasal QAM RF: 0 pantoprazole 40 mg tablet,delayed release (DR/EC) 40 mg PO QAM RF: 0 magnesium 250 mg tablet 250 mg PO BID RF: 0 levothyroxine 75 mcg Tablet 37.5 mcg PO Q2D RF: 0 glimepiride 2 mg tablet 3.5 mg PO QAM RF: 0 simvastatin 80 mg tablet 80 mg PO HS RF: 0 Brovana 15 mcg/2 mL Solution For Nebulization 15 mcg INHALATION Q12H RF: 0 Centrum Silver 0.4-300-250 mg-mcg-mcg Tablet 1 tab PO QAM RF: 0 Tudorza Pressair 400 mcg/actuation Aerosol Powdr Breath Activated 1 puff Inhalation QAM RF: 0 glucosamine-chondroitin [Osteo Bi-Flex] 250-200 mg Tablet 1 tab PO BID RF: 0 cyanocobalamin (vitamin B-12) 1,000 mcg Tablet 1,000 mcg PO QAM RF: 0 cholecalciferol (vitamin D3) 2,000 unit Tablet 2,000 unit PO HS RF: 0 furosemide 20 mg tablet 20 mg PO BID RF: 0 levothyroxine 75 mcg tablet 75 mcg PO Q2D RF: 0 ferrous sulfate [iron] 325 mg (65 mg iron) tablet 325 mg PO BID RF: 0 prednisone 10 mg tablet 10 mg PO QAM RF: 0 Xarelto 20 mg Tablet 20 mg PO QPM Qty: 30 RF: 0 escitalopram oxalate 20 mg tablet 10 mg PO QAM RF: 0 Stand-Alone Forms: [facility] Discharge Orders: Discharge Order (Routine); Ordered 04/05/19 Ordered By: Live Cordova Admission Data Admit Date/Time: 04/02/19 21:49 Attending Provider: Glenny Sheriff Admit Provider: Fina Luke Primary Care Provider: Howard Gunderson Other Providers: Fina Luke ; Howard Sorenson Service: Medical Other Interventions: Discharge Summary Assessment (RN) Last Done: 04/05/19 15:11 DC Date/Time DO NOT enter until pt leaves facility: 04/05/19 15:50 Supervising Physician Co-Signing Physician Notes Patient seen and examined with PGY-2 Dr. Cordova. Agree with history, exam findings, assessment and plan of care as outlined with the following updates/corrections. In brief, Mr. 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 He has been chest pain free since admission. Also seen by cardiology. At this point, thought process is that this may be LVOT obstruction. He was started on metoprolol 25mg BID. His heart rates and BPs have been holding up well at this point. He is being treated for a COPD exacerbation as well as he was wheezing on admission. Will continue to treat as mild COPD exacerbation. He will take 40mg prednisone for 3 more days then decrease down to his chronic prednisone 10mg dosage. Suggest outpatient stress test and cardiology follow up. His blood sugars have been elevated during his hospital stay due to the fact that his metformin and glimperide were held and he was on high dose steroids. Suspect that his sugars will improve once the higher dose steroid burs is complete and he resumes his home metformin and glimeride. He should follow up with his PCP within 1 week of hospital discharge. I personally spent 35 minutes discharge planning and coordinating care for this patient. Resident Activity Tracking Resident Involvement: Resident Care Provided Care Provided: Adult Hospital Medicine
[2019-04-05] MEDS ORDERED: INSULIN GLARGINE SOLOSTAR 100 UNITS/ML 3 ML PEN SC SCH (21:00)
== END 2019-04-05 15:50 | disposition home or self-care (01) ==
LOC: ED 19:36 → 4W 19:36 → SUATTDRO 21:49 → 4W 22:23

== ENCOUNTER 2019-09-23 04:48 | Inpatient (IN) ==
[2019-09-23] MEDS ORDERED: ACETAMINOPHEN 1,000 MG/100 ML VIAL IV STA (05:16)
[2019-09-23] MEDS ORDERED: SODIUM CHLORIDE 0.9% 1000ML 1,000 ML IV ONE ×2 (05:16→06:29)
[2019-09-23] MEDS ORDERED: LEVALBUTEROL HCL 1.25 MG/3 ML NEB NEB STA (05:17)
[2019-09-23 05:18] LABS: Basophils # (auto) 0.02 K/uL (0-0.2); Basophils % (auto) 0.1 %; Eosinophils # (auto) 0.14 K/uL (0-0.5); Eosinophils % (auto) 0.9 %; Hemoglobin 11.9 g/dL (14.0-18.0); Immature Granulocytes # (auto) 0.37 K/uL (0.00-0.02); Immature Granulocytes % (auto) 2.4 %; Lymphocytes # (auto) 4.94 K/uL (1.2-3.4); Lymphocytes % (auto) 32.3 %; Mean Corpuscular Hemoglobin 30.2 pg (25-34); Mean Corpuscular Hgb Conc 33.1 g/dL (32-36); Mean Corpuscular Volume 91.4 fL (80-100); Mean Platelet Volume 10.3 fL (7.4-10.4); Monocytes # (auto) 1.42 K/uL (0.11-0.59); Monocytes % (auto) 9.3 %; Neutrophils # (auto) 8.41 K/uL (1.4-6.5); Platelet Count 244 K/uL (130-400); RDW Coefficient of Variation 13.4 % (11.5-14.5); RDW Standard Deviation 44.8 fL (36.4-46.3); Red Blood Count 3.94 M/uL (4.7-6.1)
[2019-09-23 05:33] LABS: INR 1.1 (0.9-1.1); Partial Thromboplastin Ratio 1.1; Partial Thromboplastin Time 29.9 Seconds (21.0-31.0); Prothrombin Time 11.4 Seconds (9.0-12.0)
[2019-09-23 05:59] LABS: Influenza A virus by PCR Neg for Influ A (Neg); Influenza B virus by PCR Neg for Influ B (Neg)
[2019-09-23] MEDS ORDERED: PIPERACILL/TAZOBAC CONSULT ACTIVE PRN (06:01)
[2019-09-23] MEDS ORDERED: PIPERACILLIN/TAZOBACTAM 4.5 GM/120 ML BAG IV ONE (06:01)
[2019-09-23] MEDS ORDERED: DAPTOmycin 475 MG in SYRINGE 0 ML IV ONE (06:01)
[2019-09-23 06:12] LABS: Albumin Globulin Ratio 0.8 (0.9-2); Bilirubin,Total 0.4 mg/dl (0.2-1); Calcium 8.9 mg/dl (8.5-10.1); Creatinine Clr Calc Pharmacy 51.7 ml/min; Est GFR (African American) 63.4; Est GFR (Non-African American) 54.7; Globulin 3.7 gm/dl (2.5-4.0); Magnesium 1.7 mg/dl (1.8-2.4); Potassium 3.6 mmol/L (3.5-5.1); Total Protein 6.7 gm/dl (6.4-8.2); Troponin I 0.03 ng/ml (0-0.045)
[2019-09-23 06:38] LABS: Creatine Kinase MB 1.4 ng/ml (0.5-3.6)
--- NOTE | 2019-09-23 06:42 | XRay Report ---
XR chest 1V portable CLINICAL HISTORY: SEPSIS COMPARISON STUDY: Chest CT March 30, 2019. Chest radiograph May 02, 2019. FINDINGS: Lung volumes are normal. Lungs are clear. There is no pneumothorax or pleural effusion. Car diomegaly is again noted. Mediastinal contours are normal. There is no evidence for pulmonary edema. Patient is rotated. IMPRESSION: No acute cardiopulmonary findings. No significant change in appearance of the chest. ACT 112: Negative or not required by law. Electronically signed by: Cesar Faye M.D. 09/23/2019 6:41 AM
--- NOTE | 2019-09-23 07:33 | History & Physical Report ---
Date of Service September 23, 2019 Assessment & Plan (1) Sepsis: Admit to PCU on telemetry Vital signs every 4 hours Procalcitonin is elevated to 0.19 Started empirically Zosyn in the ER and added ceftriaxone Repeated lactic acid 2.9--> 2 Follow-up blood culture and urine culture Continue gentle IV fluid hydration We will do CT of the abdomen since chest x-rays and urine are not convincing of infection. Patient is conditional code DO NOT INTUBATE with other resuscitative measures approved. DVT prophylaxis SCDs and teds Present on Admission?: Yes (2) Chronic diastolic CHF (congestive heart failure): Appears to be stable at this time. Continue home medicine furosemide 20 mg p.o. as needed, magnesium oxide 500 mg p.o. twice daily, metoprolol tartrate 25 mg p.o. daily, levothyroxine 120 mg p.o. every morning, simvastatin 40 mg p.o. nightly. Present on Admission?: Yes (3) Obstructive sleep apnea: Continue CPAP Present on Admission?: Yes (4) Depression: Stable, continue home medicine escitalopram 10 mg p.o. every morning, vitamin B12 500 MCG's p.o. daily, amitriptyline 10 mg p.o. daily Centrum Silver 1 tablet p.o. every morning. Present on Admission?: Yes (5) Hypothyroidism: Continue levothyroxine 75 MCG's p.o. every other day Present on Admission?: Yes (6) GERD (gastroesophageal reflux disease): Continue omeprazole 40 mg p.o. daily (7) HLD (hyperlipidemia): Continue simvastatin 80 mg p.o. nightly Present on Admission?: Yes (8) HTN (hypertension): Continue home medicine as listed above. Stable. Present on Admission?: Yes (9) COPD (chronic obstructive pulmonary disease) with acute bronchitis: Stable, continue prednisone 10 mg p.o. daily, fluticasone 100 MCG's, chloride 62.5 Lawson 25 MCG's powder blister, albuterol sulfate 90 MCG's 2 puffs every 4 hours as needed Present on Admission?: Yes (10) Diabetes mellitus type 2 in nonobese: Glycemic control per pharmacy. Hold home hypoglycemic agents due to possible development of hypoglycemia and need to preserve kidney from side effects of contrast if patient needs radiological studies and when concomitantly continued hypoglycemic agents. Hemoglobin A1c pending. Accu-Cheks AC at bedtime. Present on Admission?: Yes History of Present Illness Chief Complaint: Generalized weakness Primary Care Provider: Artis Gunderson MD The patient is a 79 years old male with past medical history of A. fib/atrial flutter on Xarelto, hypertension, COPD end-stage, prior prostate cancer, diastolic CHF, diabetes mellitus type 2, was brought by his stating that patient was disoriented last night and exhibited generalized weakness when he woke up from the bed trying to reach to bathroom. Per his patient did not fall and he sat on the floor and then they called the ambulance. Patient denies fever, chills, chest pain, shortness of breath, abdominal pain, frequency, urgency. Labs are reviewed: WBC is 15.3, hemoglobin 11.9, hematocrit 36.0, platelets 244, PT 11.4, INR 1.1, APTT 29.9, lactate 2.9--> 2, magnesium 1.7 replenished, AST 15, ALT 23, alkaline phosphatase 92, CK-MB 1.4, troponin 0.03, procalcitonin 0.19, urine cloudy, trace ketones and then with negative leukocyte esterase and negative WBCs negative nitrates. Flu A&B negative. Chest x-ray is shows that lungs are clear and there is no pneumothorax or pleural effusion. Cardiomegaly is again noted. Mediastinal contours are normal. No acute cardiopulmonary finding. No significant change in appearance of the chest. Blood cultures pending x2 and urine culture. Decision was made to admit patient to PCU on telemetry for further observation of sepsis with infection of unknown origin. Allergies Allergy/AdvReac Type Severity Reaction Status Date / Time moxifloxacin Allergy Severe throat Verified 09/23/19 05:07 swelling ofloxacin Allergy Severe SWELLING Verified 09/23/19 05:07 AROUND FACE Quinolones Allergy Severe ANAPHYLAXIS Verified 09/23/19 05:07 formoterol Allergy Intermediate RASH Verified 09/23/19 05:07 Sulfa (Sulfonamide Allergy Intermediate severe red Verified 09/23/19 05:07 Antibiotics) rash Home Medications Home Medications Medication Instructions Recorded Confirmed Type Centrum Silver 1 tab PO QAM 08/03/18 09/23/19 History metformin 1,000 mg tablet 1,000 mg PO BID #180 tab 02/24/19 09/23/19 Rx albuterol sulfate 90 mcg/actuation 2 puffs INH Q4H PRN gm 02/27/19 09/23/19 History aerosol inhaler levothyroxine 37.5 mcg PO Q2D 03/05/19 09/23/19 History prednisone 10 mg PO DAILY #12 tab 04/05/19 09/23/19 Rx cyanocobalamin (vitamin B-12) 500 mcg PO DAILY 05/02/19 09/23/19 History [Vitamin B-12] furosemide [Lasix] 20 mg PO DAILY PRN 05/02/19 09/23/19 History rivaroxaban 20 mg tablet 20 mg PO QPM #90 tab 05/06/19 09/23/19 Rx glimepiride 2 mg tablet 3 mg PO QAM tab 05/07/19 09/23/19 History magnesium oxide 500 mg tablet 500 mg PO BID tab 05/07/19 09/23/19 History metoprolol tartrate 25 mg tablet 25 mg PO DAILY #60 tab 05/13/19 09/23/19 Rx blood sugar diagnostic #100 ea 05/20/19 09/03/19 Rx lancets #100 ea 05/20/19 09/03/19 Rx amitriptyline 10 mg tablet 10 mg PO DAILY #30 tab 08/11/19 09/23/19 Rx omeprazole 40 mg capsule,delayed 40 mg PO DAILY #30 cap 08/11/19 09/23/19 Rx release levothyroxine 75 mcg tablet 75 mcg PO Q2D 30 Days #20 tab 08/15/19 09/23/19 Rx escitalopram oxalate 20 mg tablet 10 mg PO QAM tab 09/16/19 09/23/19 History simvastatin 80 mg tablet 40 mg PO HS tab 09/16/19 09/23/19 History Past Med/Surg History Medical History Anemia Anxiety Atrial flutter (Acute) on xarelto Chronic diastolic CHF (congestive heart failure) Chronic steroid use COPD (chronic obstructive pulmonary disease) with acute bronchitis (Chronic 09/02/13) Depression (Chronic) Diabetes (Chronic) Diastolic CHF (Chronic) GERD (gastroesophageal reflux disease) (Chronic) Heart disease (Acute) IRREGULAR RHYTHYM HLD (hyperlipidemia) HTN (hypertension) (Acute) Hx of prostatic malignancy Hypothyroidism Iron deficiency anemia (Acute) Kidney stones (Acute) 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 current use of systemic steroids (Acute) Mild HOCM (hypertrophic obstructive cardiomyopathy) Nephrolithiasis (Acute) Obstructive sleep apnea (Acute) On anticoagulant therapy xarelto daily On home oxygen therapy 2L N/C at hs Organic impotence (Acute) Pericardial effusion (Acute) Pleural effusion (Acute) HX OF Prostate cancer (Acute) Shortness of breath Steroid-induced osteopenia (Acute) Surgical History H/O cystoscopy (Acute) "History of Cystoscopy With Insertion Of Ureteral Stent" on CCD H/O tooth extraction (Acute) History of bronchoscopy History of cardiac radiofrequency ablation History of prostatectomy (Acute) History of repair of right rotator cuff Hx of colonoscopy Hx of esophagogastroduodenoscopy Family History Sister Ovarian cancer Mother Skin cancer Myocardial infarction Grandfather Myocardial infarction Other No family history of adverse response to anesthesia Social History Preferred Language: Bangladeshi Communication Ability: Effective Digital Sales Assistant Required: No Beliefs That Will Affect Care: None marital status: Current Living Situation: Spouse Other Information That Helps Us Care for You: No Feels Safe at Home: Yes Safety Concerns: Feels Safe At This Time Smoking Status: Former smoker Do You Dip or Chew Tobacco: No ; Second Hand Exposure: No ; Tobacco Cessation Education Requested by Patient: No Hx Alcohol Use: No Hx Substance Use: No Review of Systems Review of Systems: All systems reviewed & are unremarkable except as noted in HPI & below Physical Exam Constitutional: WD/WN, vitals as above well developed and + ill appearing Eyes: PERRL, conjunctivae normal, anicteric sclerae ENMT: Ears: + hearing impairment Neck: trachea midline, no thyromegaly Respiratory: normal respiratory effort, lungs clear to auscultation Auscultation: + wheezes Cardiovascular: Rate/Rhythm: + irregularly irregular Heart Sounds: normal S1, normal S2 and + murmur Gastrointestinal (Abdomen): normal bowel sounds, soft, nontender, no hepatosplenomegaly Musculoskeletal: no cyanosis or clubbing, extremities motor strength 5/5 Skin: no rashes, warm and dry Neurologic: patellar DTR's 2+ bilat, sensation intact Psychiatric: A+Ox3, euthymic affect Lymphatic: no cervical or axillary lymphadenopathy Results & Data Vital Signs (Past 12 Hours) Vital Signs Temp Pulse Pulse Resp BP BP Pulse Ox 09/23/19 07:03 37.4 C 111 H 24 137/67 96 09/23/19 06:01 105 H 20 141/71 H 96 09/23/19 05:30 96 H 22 156/80 H 96 09/23/19 05:29 98 H 18 95 09/23/19 05:12 96 09/23/19 05:01 96 09/23/19 04:53 37.3 C 102 H 22 146/72 H 95 Code Status & VTE Plan Code Status Conditional code DO NOT INTUBATE VTE Prophylaxis Plan VTE Prophylaxis will be ordered: Yes PG Care Time/CCT Total # of Minutes Spent Total Time Spent with Patient: Total time spent is greater than 50% in coordination of care (as documented) at patient's floor/unit and/or counseling patient: Coding Level of Care Code 52079 Initial Inpt Care Lvl 3 Diagnoses Sepsis A41.9 Chronic diastolic CHF (congestive heart failure) I50.32 Obstructive sleep apnea G47.33 Depression F32.9 Depression Type: unspecified Hypothyroidism E03.9 Hypothyroidism type: unspecified GERD (gastroesophageal reflux disease) K21.9 Esophagitis presence: esophagitis presence not specified HLD (hyperlipidemia) E78.5 Hyperlipidemia type: unspecified HTN (hypertension) I10 Hypertension type: unspecified COPD (chronic obstructive pulmonary disease) with acute bronchitis J44.0; J20.9 Diabetes mellitus type 2 in nonobese E11.9 (1) Depression Depression Type: unspecified Qualified Code(s): F32.9 - Major depressive disorder, single episode, unspecified (2) Hypothyroidism Hypothyroidism type: unspecified Qualified Code(s): E03.9 - Hypothyroidism, unspecified (3) GERD (gastroesophageal reflux disease) Esophagitis presence: esophagitis presence not specified Qualified Code(s): K21.9 - Gastro-esophageal reflux disease without esophagitis (4) HLD (hyperlipidemia) Hyperlipidemia type: unspecified Qualified Code(s): E78.5 - Hyperlipidemia, unspecified (5) HTN (hypertension) Hypertension type: unspecified Qualified Code(s): I10 - Essential (primary) hypertension
[2019-09-23] MEDS ORDERED: ALUMINUM/MAGNESIUM SUSP 30 ML UDC PO PRN (07:58)
[2019-09-23] MEDS ORDERED: CARBOHYDRATES FOR HYPOGLYCEMIA PO PRN (07:58)
[2019-09-23] MEDS ORDERED: ALBUTEROL HFA 8 GM INHALER INH PRN (07:58)
[2019-09-23] MEDS ORDERED: POLYETHYLENE (MIRALAX) 17 GM PACK PO PRN (07:58)
[2019-09-23] MEDS ORDERED: GLUCAGON FOR INJ 1 MG VIAL SQ PRN (07:58)
[2019-09-23] MEDS ORDERED: GLUCOSE 10 TABS/TUBE PO PRN (07:58)
[2019-09-23] MEDS ORDERED: ACETAMINOPHEN 325 MG TAB PO PRN (07:58)
[2019-09-23] MEDS ORDERED: MAGNESIUM HYDROXIDE SUSP 30 ML UDC PO PRN (07:58)
[2019-09-23] MEDS ORDERED: GLUCOSE 40% GEL 15 GM TUBE PO PRN (07:58)
[2019-09-23] MEDS ORDERED: FUROSEMIDE 20 MG TAB PO PRN (07:58)
[2019-09-23] MEDS ORDERED: DEXTROSE 50% 50 ML SYRINGE IV PRN (07:58)
[2019-09-23] MEDS ORDERED: ONDANSETRON INJ 2 MG/ML 2 ML VIAL IV PRN (07:58)
[2019-09-23] MEDS ORDERED: PHARMACY GLYCEMIC MGMT CONSULT PRN (08:41)
[2019-09-23] MEDS: NSS + 20MEQ KCL 20 MEQ/1,000 ML BAG IV SCH ×2 (08:48→08:51)
[2019-09-23] MEDS: predniSONE 10 MG TABLET PO SCH (08:49)
[2019-09-23] MEDS: PANTOprazole 40 MG TAB PO SCH (08:49)
[2019-09-23] MEDS: ESCITALOPRAM OXALATE 10 MG TAB PO SCH (08:49)
[2019-09-23] MEDS: AMITRIPTYLINE HCL 10 MG TAB PO SCH (08:49)
[2019-09-23] MEDS: CYANOCOBALAMIN 500 MCG TABLET (VITAMIN B-12) PO SCH (08:49)
[2019-09-23] MEDS: CEROVITE ADV FORMULA TAB PO SCH (08:50)
[2019-09-23] MEDS: MAGNESIUM OXIDE 400 MG TAB PO SCH ×2 (08:50→20:40)
[2019-09-23] MEDS: METOPROLOL TARTRATE 25 MG TAB PO SCH (08:50)
[2019-09-23] MEDS ORDERED: GLIMEPIRIDE 2 MG TAB PO SCH (09:00)
[2019-09-23] MEDS ORDERED: INSULIN GLARGINE SOLOSTAR 100 UNITS/ML 3 ML PEN SC ONE ×3 (09:00→21:00)
[2019-09-23] MEDS ORDERED: MAGNESIUM SULFATE / D5W 1 GM/100 ML BAG IV ONE (09:15)
[2019-09-23] MEDS: FLUTICASONE FUROATE 100MCG 14 PUFFS/INHALER INH SCH (09:50)
[2019-09-23] MEDS: LEVOTHYROXINE SODIUM 75 MCG TABLET PO SCH (09:50)
[2019-09-23] MEDS: UMECLIDINIUM/VILANTEROL 62.5/25MCG 7 PUFFS/INHALER INH SCH (09:50)
[2019-09-23] MEDS: INSULIN ASPART 100 UNITS/ML 3 ML PEN SC SCH ×4 (09:52→20:39)
[2019-09-23] MEDS ORDERED: PIPERACILLIN/TAZOBACTAM 3.375 GM in DEXTROSE 5% 100 ML IV SCH (12:00)
--- NOTE | 2019-09-23 12:18 | Electrocardiogram Report ---
Test Reason : Blood Pressure : / mmHG Vent. Rate : 100 BPM Atrial Rate : 100 BPM P-R Int : 202 ms QRS Dur : 134 ms QT Int : 390 ms P-R-T Axes : 072 -87 061 degrees QTc Int : 503 ms Normal sinus rhythm Right bundle branch block Left anterior fascicular block Bifascicular block Abnormal ECG When compared with ECG of 02-MAY-2019 20:17, No significant change was found Confirmed by Mohit Perez ([id number]) on 09/23/2019 12:18:16 PM Referred By: REFERRED SELF Confirmed By:Mohit Perez
--- NOTE | 2019-09-23 12:39 | Electrocardiogram Report ---
Test Reason : Blood Pressure : / mmHG Vent. Rate : 095 BPM Atrial Rate : 095 BPM P-R Int : 218 ms QRS Dur : 140 ms QT Int : 410 ms P-R-T Axes : 087 -75 054 degrees QTc Int : 515 ms Sinus rhythm with 1st degree A-V block with Premature atrial complexes Right bundle branch block Left anterior fascicular block Bifascicular block Abnormal ECG When compared with ECG of 23-SEP-2019 04:56, (unconfirmed) Premature atrial complexes are now Present Confirmed by Mohit Perez ([id number]) on 09/23/2019 12:39:12 PM Referred By: REFERRED SELF Confirmed By:Mohit Perez
--- NOTE | 2019-09-23 14:31 | Pharmacy Report ---
Glycemic Control Consultation - Date of Service September 23, 2019 - Scope Scope: Glycemic Pharmacist consulted by Dr Shirley on 09/23/19 for glycemic control and to write orders per [facility] inpatient glycemic control protocol - Objective Weight: 82.1 kg Accuchecks BSG (last 24hrs): 09/23/19 09/23/19 05:08 11:22 Glucose 228 H POC Glucose 269 H Laboratory Data (last 24hrs): 09/23/19 05:08 Potassium 3.6 Carbon Dioxide 24 Anion Gap 11.0 Creatinine 1.23 Est Cr Clr Drug Dosing 51.7 - Recent Pertinent Medications Outpatient Anti-diabetic Regimen: * glimepiride 3 mg QAM, metformin 1000 mg BID * A1c = pending Risk Factors for Insulin Resistance: * Steroids: prednisone 10 mg * Infection: zosyn * Pressors: * IVF: * Recent Surgery * Diet: T2DM * Mechanical Ventilation: - Assessment & Plan Assessment & Plan: ASSESSMENT: * Patient presenting with weakness, cough, confusion, started on antibiotics empirically * History of type 2 diabetes, on oral medications at home, current A1c pending but 9.9% in March of 2019 * Patient's BSG elevated on admission 228, is on home dose of prednisone 10 mg. Will start dosing with weight based stress of 2 and titrate up as needed. * Novolog parameters started with weight based stress of 2, tightened at lunch f or elevated prandial BSG PLAN FOR INPATIENT GLYCEMIC CONTROL: * Holding outpatient oral diabetes medications * Basal insulin * Lantus 14 units this AM * Scale for PM * 8 units BSG <140 * 14 units BSG 140-180 * 20 units BSG >180 * Bolus insulin * NovoLog per scale ACHS or Q6hrs while NPO * Goal Range: Low 110mg/dL - High 150 mg/dL * Correction Factor: 25 mg/dL/unit * Nutritional / Prandial insulin per carb ratio of 1 unit per 9 grams CHO consumed * Please note that the plan above was derived based on current level of insulin resistance and hospital stress. These recommendations are appropriate for inpatient admission only. Plan of care upon discharge will need to be reassessed to avoid potential outpatient hypo/hyperglycemia. Thank you.
[2019-09-23] MEDS ORDERED: cefTRIAXone SODIUM 2,000 MG in DEXTROSE 5% 50 ML IV SCH (18:00)
[2019-09-23] MEDS: PIPERACILLIN/TAZOBACTAM 3.375 GM in DEXTROSE 5% 100 ML IV SCH (20:38)
[2019-09-23] MEDS: SIMVASTATIN 40 MG TAB PO SCH (20:39)
[2019-09-23] MEDS: RIVAROXABAN 20 MG TAB PO SCH (20:40)
--- NOTE | 2019-09-23 20:47 | CT Scan Report ---
CT SCAN OF THE ABDOMEN AND PELVIS WITHOUT IV CONTRAST CLINICAL HISTORY: Sepsis. Prostate cancer. COMPARISON STUDY: Abdominal CT dated 03/30/2019. TECHNIQUE: CT scan of the abdomen and pelvis is performed from the lung bases to the proximal femora. Images are reviewed in the axial, sagittal, and coronal planes. IV contrast was not administered for this examination as per the front clinician. Note that the examination was performed in significantl y suboptimal fashion without oral and IV contrast. The examination is degraded by motion artifact, as well as by streak artifact from the arms which could not be related above the abdomen. A dose loweri ng technique was utilized adhering to the principles of ALARA. CT DOSE: 1316.93 mGycm FINDINGS: Lung bases: The heart is mildly enlarged and without pericardial effusion. There are coronary artery calcifications. A small hiatal hernia is noted. There are trace pleural effusions with bibasilar scar ring/atelectasis. Liver: The unenhanced liver is normal in size, contour, and attenuation. There is no intrahepatic nish iary ductal dilatation. Gallbladder: Unremarkable. Spleen: Normal in size and attenuation. Pancreas: The unenhanced pancreas is moderately atrophic and grossly unremarkable. Adrenal glands: Unremarkable. Kidneys: The unenhanced kidneys demonstrate cortical atrophy and are without hydronephrosis. There is a punctate nonobstructing right renal calculus. No left renal calculi are identified. A 2.1 cm cyst is noted in the left kidney. Abdominal vasculature: The abdominal aorta is normal in course and caliber noting moderate atheroscle rotic calcification. Bowel: There is no bowel obstruction. Mild fecal retention is noted in the colon. The appendix is we ll-visualized and normal. Peritoneum: There is no intraperitoneal free air. Trace free fluid is noted in the pelvis. There is a fat-containing umbilical hernia. A midline surgical scar is noted in the pelvis. Lymphadenopathy: None. Pelvic viscera: The prostate gland is surgically absent. The bladder wall is mildly thickened and tra beculated indicating chronic outlet obstruction. There is a small fat-containing left inguinal hernia . Skeletal structures: The skeletal structures are osteopenic. Mild to moderate lumbosacral spondylosis is observed. No lytic or blastic lesions are seen. IMPRESSION: 1. Suboptimal examination without oral and IV contrast. The examination is also degraded by streak an d motion artifact. 2. There are no acute infectious or inflammatory findings in the abdomen or pelvis. 3. Trace nonspecific free fluid is seen in the pelvis. 4. There is a punctate nonobstructing right renal calculus. 5. Cardiomegaly and trace pleural effusions. 6. Additional findings as above. ACT 112: Negative or not required by law. Electronically signed by: Fausto Donovan M.D. 09/23/2019 8:46 PM
--- NOTE | 2019-09-23 23:48 | Emergency Department Note ---
Entered by Michel Gonzalez acting as a scribe for History of Present Illness General Chief complaint: Weakness Stated complaint: WEAKNESS/FEVER/VOMITING Time Seen by Provider: 09/23/19 05:11 Source: patient and other (nurse) Limitations: other (confusion) History of Present Illness Onset (ago): day(s) (a few days ago) Pain Consistency: + constant Quality: + other (weakness) Associated symptoms: + other (Positive for a cough, fever, and confusion. Negative for abdominal pain.) The patient is an 79 year old male who presents to the emergency department with complaints of constant weakness beginning a few days ago. Per nurse, the patient has been weak and had a cough for the last few days. She states that the patient was increasingly weak this morning when he was walking to the bathroom, and she notes that the patients had to help him to the ground at that time. She r eports that the patient had a fever per EMS, and she states that he has been confused. The patient denies any abdominal pain. He notes that he wears oxygen at home. HPI limited secondary to confusion. Home Medications Home Medications Medication Instructions Recorded Confirmed Type Centrum Silver 1 tab PO QAM 08/03/18 09/23/19 History metformin 1,000 mg tablet 1,000 mg PO BID #180 tab 02/24/19 09/23/19 Rx albuterol sulfate 90 mcg/actuation 2 puffs INH Q4H PRN gm 02/27/19 09/23/19 History aerosol inhaler levothyroxine 37.5 mcg PO Q2D 03/05/19 09/23/19 History prednisone 10 mg PO DAILY #12 tab 04/05/19 09/23/19 Rx cyanocobalamin (vitamin B-12) 500 mcg PO DAILY 05/02/19 09/23/19 History [Vitamin B-12] furosemide [Lasix] 20 mg PO DAILY PRN 05/02/19 09/23/19 History rivaroxaban 20 mg tablet 20 mg PO QPM #90 tab 05/06/19 09/23/19 Rx glimepiride 2 mg tablet 3 mg PO QAM tab 05/07/19 09/23/19 History magnesium oxide 500 mg tablet 500 mg PO BID tab 05/07/19 09/23/19 History metoprolol tartrate 25 mg tablet 25 mg PO DAILY #60 tab 05/13/19 09/23/19 Rx blood sugar diagnostic #100 ea 05/20/19 09/03/19 Rx lancets #100 ea 05/20/19 09/03/19 Rx amitriptyline 10 mg tablet 10 mg PO DAILY #30 tab 08/11/19 09/23/19 Rx omeprazole 40 mg capsule,delayed 40 mg PO DAILY #30 cap 08/11/19 09/23/19 Rx release levothyroxine 75 mcg tablet 75 mcg PO Q2D 30 Days #20 tab 08/15/19 09/23/19 Rx escitalopram oxalate 20 mg tablet 10 mg PO QAM tab 09/16/19 09/23/19 History simvastatin 80 mg tablet 40 mg PO HS tab 09/16/19 09/23/19 History Allergies Allergy/AdvReac Type Severity Reaction Status Date / Time moxifloxacin Allergy Severe throat Verified 09/23/19 05:07 swelling ofloxacin Allergy Severe SWELLING Verified 09/23/19 05:07 AROUND FACE Quinolones Allergy Severe ANAPHYLAXIS Verified 09/23/19 05:07 formoterol Allergy Intermediate RASH Verified 09/23/19 05:07 Sulfa (Sulfonamide Allergy Intermediate severe red Verified 09/23/19 05:07 Antibiotics) rash Past Med/Surg History Medical History Anemia Anxiety Atrial flutter (Acute) on xarelto Chronic diastolic CHF (congestive heart failure) Chronic steroid use COPD (chronic obstructive pulmonary disease) with acute bronchitis (Chronic 09/02/13) Depression (Chronic) Diabetes (Chronic) Diastolic CHF (Chronic) GERD (gastroesophageal reflux disease) (Chronic) Heart disease (Acute) IRREGULAR RHYTHYM HLD (hyperlipidemia) HTN (hypertension) (Acute) Hx of prostatic malignancy Hypothyroidism Iron deficiency anemia (Acute) Kidney stones (Acute) Left ventricular outflow tract obstruction 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 current use of systemic steroids (Acute) Mild HOCM (hypertrophic obstructive cardiomyopathy) Nephrolithiasis (Acute) Obstructive sleep apnea (Acute) On anticoagulant therapy xarelto daily On home oxygen therapy 2L N/C at hs Organic impotence (Acute) Pericardial effusion (Acute) Pleural effusion (Acute) HX OF Prostate cancer (Acute) Shortness of breath Steroid-induced osteopenia (Acute) Surgical History H/O cystoscopy (Acute) "History of Cystoscopy With Insertion Of Ureteral Stent" on CCD H/O tooth extraction (Acute) History of bronchoscopy History of cardiac radiofrequency ablation History of prostatectomy (Acute) History of repair of right rotator cuff Hx of colonoscopy Hx of esophagogastroduodenoscopy Family History Sister Ovarian cancer Mother Skin cancer Myocardial infarction Grandfather Myocardial infarction Other No family history of adverse response to anesthesia Social History Preferred Language: Kyr[place]z Communication Ability: Effective Lens Gauger Required: No Beliefs That Will Affect Care: None marital status: Current Living Situation: Spouse Other Information That Helps Us Care for You: No Feels Safe at Home: Yes Safety Concerns: Feels Safe At This Time Smoking Status: Former smoker Do You Dip or Chew Tobacco: No ; Second Hand Exposure: No ; Tobacco Cessation Education Requested by Patient: No Hx Alcohol Use: No Hx Substance Use: No Review of Systems ROS limited secondary to confusion. Physical Exam Vital Signs Vital Signs - 24 hr 09/23/19 04:53 09/23/19 05:01 09/23/19 05:12 Temperature 37.3 C Temperature Source Oral Pulse Rate 102 H Pulse Rate [Right Radial] Respiratory Rate 22 Respiratory Effort / Characteristics Non-Labored Spontaneous Respiratory Depth Normal Blood Pressure 146/72 H Blood Pressure [Right Arm] Blood Pressure Mean 96 Blood Pressure Mean [Right Arm] Pulse Oximetry 95 96 96 Oxygen Delivery Method Nasal Cannula Nasal Cannula Nasal Cannula Oxygen Flow Rate 2 2 2 Sepsis Recent Fever Within 48 Hours Yes Sepsis Action Taken by Nursing Physician Notified 09/23/19 05:29 09/23/19 05:30 09/23/19 06:01 Temperature Temperature Source Pulse Rate Pulse Rate [Right Radial] 98 H 96 H 105 H Respiratory Rate 18 22 20 Respiratory Effort / Characteristics Non-Labored Spontaneous Non-Labored Spontaneous Respiratory Depth Normal Blood Pressure Blood Pressure [Right Arm] 156/80 H 141/71 H Blood Pressure Mean Blood Pressure Mean [Right Arm] 105 94 Pulse Oximetry 95 96 96 Oxygen Delivery Method Nasal Cannula Nebulizer Nasal Cannula Oxygen Flow Rate 2 2 Sepsis Recent Fever Within 48 Hours Sepsis Action Taken by Nursing 09/23/19 07:03 Temperature 37.4 C Temperature Source Oral Pulse Rate Pulse Rate [Right Radial] 111 H Respiratory Rate 24 Respiratory Effort / Characteristics Respiratory Depth Blood Pressure Blood Pressure [Right Arm] 137/67 Blood Pressure Mean Blood Pressure Mean [Right Arm] 90 Pulse Oximetry 96 Oxygen Delivery Method Nasal Cannula Oxygen Flow Rate 2 Sepsis Recent Fever Within 48 Hours Sepsis Action Taken by Nursing GENERAL: Awake, alert, well-appearing, in no acute distress, does not know why he is here. HENT: Normocephalic, atraumatic. Oropharynx unremarkable. EYES: Normal conjunctiva. Sclera non-icteric. NECK: Supple. No nuchal rigidity. FROM. No JVD. RESPIRATORY: Clear to auscultation. CARDIAC: Regular rate, normal rhythm. Extremities warm and well perfused. Pulses equal. ABDOMEN: Soft, non-distended. No tenderness to palpation. No rebound or guarding. No masses. RECTAL: Deferred. MUSCULOSKELETAL: Chest examination reveals no tenderness. The back is symmetrica l on inspection without obvious abnormality. There is no CVA tenderness to palpation. No joint edema. LOWER EXTREMITIES: Calves are equal size bilaterally and non-tender. No edema. No discoloration. NEURO: Normal sensorium. No sensory or motor deficits noted. SKIN: No rash or jaundice noted. Course Course 0513: The patient was evaluated in room B7. A complete history and physical exam was performed. 07: Upon reevaluation, the patient is stable. I discussed the findings and the treatment plan with the patient. He expresses agreement and understanding. I spoke with Dr. Shirley of the [facility] Hospitalist Service. The patient will be evaluated for further management. Consultations Consultation #1: I reviewed the patient's case with Dr. Shirley - Hospitalist, [facility]. She will evaluate the patient for further management. Time: 07:06 Administered Medications Amitriptyline HCl (Elavil) 10 mg PO DAILY [facility] Stop: 10/23/19 08:59 Last Admin: 09/23/19 08:49 Dose: 10 mg Documented by: [id number] Cyanocobalamin (Vitamin B-12) 500 mcg PO DAILY [facility] Stop: 10/23/19 08:59 Last Admin: 09/23/19 08:49 Dose: 500 mcg Documented by: [id number] Escitalopram Oxalate (Lexapro Tab) 10 mg PO QAM [facility] Stop: 10/23/19 08:59 Last Admin: 09/23/19 08:49 Dose: 10 mg Documented by: [id number] Fluticasone Furoate (Arnuity Ellipta 100mcg) 1 puffs INH DAILY [facility] Stop: 10/23/19 08:59 Last Admin: 09/23/19 09:50 Dose: 1 puffs Documented by: [id number] Furosemide (Lasix) 20 mg PO DAILY PRN PRN Reason: Fluid Retention Stop: 10/23/19 07:57 Last Admin: 09/23/19 08:49 Dose: 20 mg Documented by: [id number] Potassium Chloride/Sodium Chloride (Normal Saline W/20 Meq Kcl) 20 meq in 1,000 mls @ 80 mls/hr IV .[id number] [facility] Stop: 10/23/19 08:29 Last Admin: 09/23/19 08:51 Dose: 80 mls/hr Documented by: [id number] Infusion: 09/23/19 08:51 Dose: 80 mls/hr Documented by: [id number] Admin: 09/23/19 08:48 Dose: 80 mls/hr Documented by: [id number] Piperacillin Sod/Tazobactam (Sod 3.375 gm/ Dextrose) 115 mls @ 28.75 mls/hr IV Q8H [facility]; Protocol Stop: 09/25/19 19:59 Last Admin: 09/23/19 20:38 Dose: 28.8 mls/hr Documented by: [id number] Insulin Aspart (Novolog Flexpen) 0 units SC ACHS [facility] Stop: 10/23/19 08:29 Last Admin: 09/23/19 20:39 Dose: 4 units Documented by: [id number] Cosigned by: [id number] Admin: 09/23/19 17:07 Dose: 11 units Documented by: [id number] Cosigned by: [id number] Admin: 09/23/19 12:20 Dose: 9 units Documented by: [id number] Cosigned by: [id number] Admin: 09/23/19 09:52 Dose: 3 units Documented by: [id number] Cosigned by: [id number] Levothyroxine Sodium (Synthroid) 37.5 mcg PO Q2D@0630 [facility] Stop: 10/23/19 06:29 Last Admin: 09/23/19 09:50 Dose: 37.5 mcg Documented by: [id number] Magnesium Oxide (Mag-Ox) 400 mg PO BID [facility] Stop: 10/23/19 08:59 Last Admin: 09/23/19 20:40 Dose: 400 mg Documented by: [id number] Admin: 09/23/19 08:50 Dose: 400 mg Documented by: [id number] Metoprolol Tartrate (Lopressor) 25 mg PO DAILY [facility] Stop: 10/23/19 08:59 Last Admin: 09/23/19 08:50 Dose: 25 mg Documented by: [id number] Multivitamins/Minerals (Multivitamin W/ Minerals Tab) 1 tab PO QAM [facility] Stop: 10/23/19 08:59 Last Admin: 09/23/19 08:50 Dose: 1 tab Documented by: [id number] Pantoprazole Sodium (Protonix) 40 mg PO DAILY [facility] Stop: 10/23/19 08:59 Last Admin: 09/23/19 08:49 Dose: 40 mg Documented by: [id number] Prednisone (Prednisone) 10 mg PO DAILY [facility] Stop: 10/23/19 08:59 Last Admin: 09/23/19 08:49 Dose: 10 mg Documented by: [id number] Rivaroxaban (Xarelto) 20 mg PO QPM [facility] Stop: 10/23/19 20:59 Last Admin: 09/23/19 20:40 Dose: 20 mg Documented by: [id number] Simvastatin (Zocor) 40 mg PO HS [facility] Stop: 10/23/19 20:59 Last Admin: 09/23/19 20:39 Dose: 40 mg Documented by: [id number] Umeclidinium/Vilanterol (Anoro Ellipta 62.5/25 Mcg Inh) 1 puffs INH DAILY [facility] Stop: 10/23/19 08:59 Last Admin: 09/23/19 09:50 Dose: 1 puffs Documented by: [id number] Discontinued Medications Sodium Chloride (Nss 1000ml) 1,000 mls @ 999 mls/hr IV .Q1H1M ONE Stop: 09/23/19 06:16 Last Infusion: 09/23/19 06:20 Dose: 0 mls/hr Documented by: [id number] Admin: 09/23/19 05:20 Dose: 999 mls/hr Documented by: [id number] Acetaminophen (Ofirmev) 1,000 mg in 100 mls @ 400 mls/hr IV NOW STA Stop: 09/23/19 05:30 Last Infusion: 09/23/19 05:37 Dose: 0 mls/hr Documented by: [id number] Admin: 09/23/19 05:22 Dose: 400 mls/hr Documented by: [id number] Piperacillin Sod/Tazobactam Sod (Zosyn) 4.5 gm in 120 mls @ 240 mls/hr IV NOW ONE Stop: 09/23/19 06:30 Last Infusion: 09/23/19 06:38 Dose: 0 mls/hr Documented by: [id number] Admin: 09/23/19 06:08 Dose: 240 mls/hr Documented by: [id number] Daptomycin 475 mg/ Syringe 9.5 mls @ 4.75 mls/min IV NOW ONE; Protocol Stop: 09/23/19 06:02 Last Admin: 09/23/19 06:40 Dose: 4.75 mls/min Documented by: [id number] Sodium Chloride (Nss 1000ml) 1,000 mls @ 999 mls/hr IV .Q1H1M ONE Stop: 09/23/19 07:29 Last Infusion: 09/23/19 07:38 Dose: 0 mls/hr Documented by: [id number] Admin: 09/23/19 06:41 Dose: 999 mls/hr Documented by: [id number] Piperacillin Sod/Tazobactam (Sod 3.375 gm/ Dextrose) 115 mls @ 28.75 mls/hr IV Q8H [facility]; Protocol Stop: 09/25/19 11:59 Last Infusion: 09/23/19 16:22 Dose: 0 mls/hr Documented by: [id number] Admin: 09/23/19 12:22 Dose: 28.8 mls/hr Documented by: [id number] Magnesium Sulfate/Dextrose (Magnesium Sulfate / D5w) 1 gm in 100 mls @ 100 mls/hr IV ONE ONE Stop: 09/23/19 10:14 Last Infusion: 09/23/19 10:54 Dose: 0 mls/hr Documented by: [id number] Admin: 09/23/19 09:46 Dose: 100 mls/hr Documented by: [id number] Ceftriaxone Sodium 2,000 mg/ (Dextrose) 70 mls @ 100 mls/hr IV Q24H [facility]; Protocol Stop: 10/03/19 17:59 Last Infusion: 09/23/19 18:18 Dose: 0 mls/hr Documented by: [id number] Admin: 09/23/19 17:45 Dose: 100 mls/hr Documented by: [id number] Insulin Glargine (Lantus Solostar Pen) 14 units SC QAM [facility] Stop: 09/23/19 09:01 Last Admin: 09/23/19 09:48 Dose: 14 units Documented by: [id number] Cosigned by: [id number] Insulin Glargine (Lantus Solostar Pen) 0 units SC HS ONE; Protocol Stop: 09/23/19 21:01 Last Admin: 09/23/19 20:39 Dose: 20 units Documented by: [id number] Cosigned by: [id number] Levalbuterol HCl (Xopenex 1.25mg/3ml Neb) 1.25 mg NEB NOW STA Stop: 09/23/19 05:18 Last Admin: 09/23/19 05:27 Dose: 1.25 mg Documented by: [id number] Medical Decision Making Differential Diagnosis Differential Diagnosis includes but is not limited to dehydration, stroke, anemia, hypoglycemia, hyponatremia, hypernatremia, urinary tract infection, pneumonia, bronchitis, sepsis, gastroenteritis, additional abdominal pathology, metabolic abnormalities and infections. Medical Records Attestation: I reviewed the patient's medical records. Home Medications Current Medication List: was personally reviewed by me Laboratory Data Attestation: I reviewed the patient's lab results. Result diagrams: 09/23/19 05:08 09/23/19 05:08 Lab Results 09/23/19 09/23/19 09/23/19 Range/Units 05:00 05:08 05:08 WBC 15.30 H (4.8-10.8) K/uL RBC 3.94 L (4.7-6.1) M/uL Hgb 11.9 L (14.0-18.0) g/dL Hct 36.0 L (42-52) % MCV 91.4 (80-100) fL MCH 30.2 (25-34) pg MCHC 33.1 (32-36) g/dL RDW Std Deviation 44.8 (36.4-46.3) fL RDW Coeff of Ruddy 13.4 (11.5-14.5) % Plt Count 244 (130-400) K/uL MPV 10.3 (7.4-10.4) fL Immature Gran % (Auto) 2.4 % Neut % (Auto) 55.0 % Lymph % (Auto) 32.3 % Holt % (Auto) 9.3 % Eos % (Auto) 0.9 % Baso % (Auto) 0.1 % Immature Gran # (Auto) 0.37 H (0.00-0.02) K/uL Neut # (Auto) 8.41 H (1.4-6.5) K/uL Lymph # (Auto) 4.94 H (1.2-3.4) K/uL Holt # (Auto) 1.42 H (0.11-0.59) K/uL Eos # (Auto) 0.14 (0-0.5) K/uL Baso # (Auto) 0.02 (0-0.2) K/uL PT 11.4 (9.0-12.0) Seconds INR 1.1 (0.9-1.1) APTT 29.9 (21.0-31.0) Seconds PTT Ratio 1.1 Sodium (136-145) mmol/L Potassium (3.5-5.1) mmol/L Chloride (98-107) mmol/L Carbon Dioxide (21-32) mmol/L Anion Gap (3-11) BUN (7-18) mg/dl Creatinine (0.6-1.4) mg/dl Est Cr Clr Drug Dosing ml/min Est GFR ( Amer) Est GFR (Non-Af Amer) BUN/Creatinine Ratio (10-20) Glucose (70-99) mg/dl Lactate (0.4-2.0) mmol/L Calcium (8.5-10.1) mg/dl Magnesium (1.8-2.4) mg/dl Total Bilirubin (0.2-1) mg/dl AST (15-37) U/L ALT (12-78) U/L Alkaline Phosphatase (45-117) U/L Total Creatine Kinase (39-308) U/L CK-MB (CK-2) (0.5-3.6) ng/ml CK/CKMB % Calc (0-3.0) Troponin I (0-0.045) ng/ml Total Protein (6.4-8.2) gm/dl Albumin (3.4-5.0) gm/dl Globulin (2.5-4.0) gm/dl Albumin/Globulin Ratio (0.9-2) Procalcitonin (0-0.5) ng/ml Specimen Hemolysis Influenza Type A (PCR) Neg for Influ A (Neg) Influenza Type B (PCR) Neg for Influ B (Neg) 09/23/19 09/23/19 09/23/19 Range/Units 05:08 05:08 05:08 WBC (4.8-10.8) K/uL RBC (4.7-6.1) M/uL Hgb (14.0-18.0) g/dL Hct (42-52) % MCV (80-100) fL MCH (25-34) pg MCHC (32-36) g/dL RDW Std Deviation (36.4-46.3) fL RDW Coeff of Ruddy (11.5-14.5) % Plt Count (130-400) K/uL MPV (7.4-10.4) fL Immature Gran % (Auto) % Neut % (Auto) % Lymph % (Auto) % Holt % (Auto) % Eos % (Auto) % Baso % (Auto) % Immature Gran # (Auto) (0.00-0.02) K/uL Neut # (Auto) (1.4-6.5) K/uL Lymph # (Auto) (1.2-3.4) K/uL Holt # (Auto) (0.11-0.59) K/uL Eos # (Auto) (0-0.5) K/uL Baso # (Auto) (0-0.2) K/uL PT (9.0-12.0) Seconds INR (0.9-1.1) APTT (21.0-31.0) Seconds PTT Ratio Sodium 136 (136-145) mmol/L Potassium 3.6 (3.5-5.1) mmol/L Chloride 101 (98-107) mmol/L Carbon Dioxide 24 (21-32) mmol/L Anion Gap 11.0 (3-11) BUN 21 H (7-18) mg/dl Creatinine 1.23 (0.6-1.4) mg/dl Est Cr Clr Drug Dosing 51.7 ml/min Est GFR ( Amer) 63.4 Est GFR (Non-Af Amer) 54.7 BUN/Creatinine Ratio 17.0 (10-20) Glucose 228 H (70-99) mg/dl Lactate 2.9 H* (0.4-2.0) mmol/L Calcium 8.9 (8.5-10.1) mg/dl Magnesium 1.7 L (1.8-2.4) mg/dl Total Bilirubin 0.4 (0.2-1) mg/dl AST 15 (15-37) U/L ALT 23 (12-78) U/L Alkaline Phosphatase 92 (45-117) U/L Total Creatine Kinase 69 (39-308) U/L CK-MB (CK-2) 1.4 (0.5-3.6) ng/ml CK/CKMB % Calc 2.0 (0-3.0) Troponin I 0.030 (0-0.045) ng/ml Total Protein 6.7 (6.4-8.2) gm/dl Albumin 3.0 L (3.4-5.0) gm/dl Globulin 3.7 (2.5-4.0) gm/dl Albumin/Globulin Ratio 0.8 L (0.9-2) Procalcitonin 0.19 (0-0.5) ng/ml Specimen Hemolysis Influenza Type A (PCR) (Neg) Influenza Type B (PCR) (Neg) 09/23/19 Range/Units 07:03 WBC (4.8-10.8) K/uL RBC (4.7-6.1) M/uL Hgb (14.0-18.0) g/dL Hct (42-52) % MCV (80-100) fL MCH (25-34) pg MCHC (32-36) g/dL RDW Std Deviation (36.4-46.3) fL RDW Coeff of Ruddy (11.5-14.5) % Plt Count (130-400) K/uL MPV (7.4-10.4) fL Immature Gran % (Auto) % Neut % (Auto) % Lymph % (Auto) % Holt % (Auto) % Eos % (Auto) % Baso % (Auto) % Immature Gran # (Auto) (0.00-0.02) K/uL Neut # (Auto) (1.4-6.5) K/uL Lymph # (Auto) (1.2-3.4) K/uL Holt # (Auto) (0.11-0.59) K/uL Eos # (Auto) (0-0.5) K/uL Baso # (Auto) (0-0.2) K/uL PT (9.0-12.0) Seconds INR (0.9-1.1) APTT (21.0-31.0) Seconds PTT Ratio Sodium (136-145) mmol/L Potassium (3.5-5.1) mmol/L Chloride (98-107) mmol/L Carbon Dioxide (21-32) mmol/L Anion Gap (3-11) BUN (7-18) mg/dl Creatinine (0.6-1.4) mg/dl Est Cr Clr Drug Dosing ml/min Est GFR ( Amer) Est GFR (Non-Af Amer) BUN/Creatinine Ratio (10-20) Glucose (70-99) mg/dl Lactate 2.0 (0.4-2.0) mmol/L Calcium (8.5-10.1) mg/dl Magnesium (1.8-2.4) mg/dl Total Bilirubin (0.2-1) mg/dl AST (15-37) U/L ALT (12-78) U/L Alkaline Phosphatase (45-117) U/L Total Creatine Kinase (39-308) U/L CK-MB (CK-2) (0.5-3.6) ng/ml CK/CKMB % Calc (0-3.0) Troponin I (0-0.045) ng/ml Total Protein (6.4-8.2) gm/dl Albumin (3.4-5.0) gm/dl Globulin (2.5-4.0) gm/dl Albumin/Globulin Ratio (0.9-2) Procalcitonin (0-0.5) ng/ml Specimen Hemolysis Influenza Type A (PCR) (Neg) Influenza Type B (PCR) (Neg) Imaging Data Attestation: I personally reviewed and interpreted this imaging study as follows: My Impression: CHEST X-RAY: No evidence of pneumonia, congestion, or pneumothorax. ECG Data Attestation: I personally reviewed and interpreted this ECG as follows: Indication: + weakness Rate (beats per minute): 100 Rhythm: + normal sinus ECG Intervals/blocks: + Right Bundle branch block ECG [place]: + Normal ECG ST segments: no ST depression and no ST elevation Additional Comments: QTC 503. Blood Pressure Blood Pressure Findings: Elevated blood pressure Blood Pressure Disposition: elevated BP felt to be situational MDM Narrative This is an 79-year-old male who presents emergency department complaining of weakness. The patient is running a fever at home. He does have an elevation his white blood cell count 15,000 here. He was pancultured and started on broad-spectrum antibiotics. I did discuss the case with hospitalist service who did agree to admit the patient. Patient was in agreement with the treatment plan Impression & Plan Fever, Weakness Discharge Plan Visit Data *Final* Discharge Date/Time: 09/23/19 07:45 Chief Complaint: Weakness Stated Complaint: WEAKNESS/FEVER/VOMITING ED Provider: Chaka Houser Discharge Problem: Fever, Weakness Patient Disposition: Admitted As Inpatient Discharge Instructions Interventions: ED Discharge Assessment Last Done: 09/23/19 07:45 Discharge Problem: Fever Qualifiers: Fever type: unspecified Qualified Code(s): R50.9 - Fever, unspecified The scribe's documentation has been prepared under my direction and personally reviewed by me in its entirety. I confirm that the note above accurately reflects all work, treatment, procedures, and medical decision making performed by me.
[2019-09-24] MEDS: INSULIN ASPART 100 UNITS/ML 3 ML PEN SC SCH ×6 (00:09→21:23)
[2019-09-24] MEDS: PIPERACILLIN/TAZOBACTAM 3.375 GM in DEXTROSE 5% 100 ML IV SCH ×3 (03:20→21:19)
[2019-09-24 03:23] LABS: Appearance Urine Clear (Clear); Bacteria Urine Automated Negative (Negative); Bilirubin Urine Negative (Negative); Blood Urine Trace (Negative); Cast Urine Automated 0 /lpf (0-5); Color Urine Yellow; Epithelial Cell Urine Auto 0-5 /lpf (0-5); Glucose Urine UA 2+ (Negative); Ketones Urine Negative (Negative); Leukocyte Esterase Urine 2+ (Negative); Nitrite Urine Negative (Negative); Protein Urine Trace (Negative); RBC Urine Automated 0-4 /hpf (0-4); Specific Gravity Urine 1.013 (1.000-1.030); Urobilinogen Urine Negative (Negative); WBC Urine Automated >30 /hpf (0-5)
[2019-09-24] MEDS: LEVOTHYROXINE SODIUM 75 MCG TABLET PO SCH (05:58)
[2019-09-24 05:59] LABS: Basophils # (auto) 0.03 K/uL (0-0.2); Basophils % (auto) 0.2 %; Eosinophils # (auto) 0.13 K/uL (0-0.5); Hematocrit (blood only) 35.9 % (42-52); Hemoglobin 11.6 g/dL (14.0-18.0); Immature Granulocytes # (auto) 0.22 K/uL (0.00-0.02); Immature Granulocytes % (auto) 1.8 %; Lymphocytes # (auto) 3.82 K/uL (1.2-3.4); Lymphocytes % (auto) 30.6 %; Mean Corpuscular Hemoglobin 29.9 pg (25-34); Mean Corpuscular Hgb Conc 32.3 g/dL (32-36); Mean Corpuscular Volume 92.5 fL (80-100); Mean Platelet Volume 10.2 fL (7.4-10.4); Monocytes # (auto) 1.16 K/uL (0.11-0.59); Monocytes % (auto) 9.3 %; Neutrophils # (auto) 7.11 K/uL (1.4-6.5); Neutrophils % (auto) 57.1 %; Platelet Count 230 K/uL (130-400); RDW Standard Deviation 46.3 fL (36.4-46.3); Red Blood Count 3.88 M/uL (4.7-6.1); White Blood Count 12.47 K/uL (4.8-10.8)
[2019-09-24 06:29] LABS: Estimated Average Glucose 275 mg/dl; Hemoglobin A1C 11.2 % (4.5-5.6)
[2019-09-24 06:43] LABS: Albumin Globulin Ratio 0.6 (0.9-2); Albumin Level 2.5 gm/dl (3.4-5.0); BUN Creatinine Ratio 14.1 (10-20); Bilirubin,Total 0.3 mg/dl (0.2-1); Calcium 8.4 mg/dl (8.5-10.1); Creatinine Clr Calc Pharmacy 48.9 ml/min; Est GFR (African American) 59.3; Est GFR (Non-African American) 51.2; Globulin 3.9 gm/dl (2.5-4.0); Total Protein 6.4 gm/dl (6.4-8.2)
--- NOTE | 2019-09-24 07:26 | Hospitalist Progress Note ---
Date of Service September 24, 2019 Assessment & Plan (1) Sepsis: Continue admit to PCU on telemetry. Vital signs every 4 hours. Procalcitonin is elevated to 0.19 Started empirically Zosyn in the ER and added ceftriaxone. 1/2 blood was positive for gram positive cocci in clusters. Repeat blood cultures Continue coverage with Zosyn empirically Follow-up already submitted cultures and positive culture for specificity. Repeated lactic acid 2.9--> 2 Follow-up urine culture Leukocytosis trending down Continue gentle IV fluid hydration We will do CT of the abdomen since chest x-rays and urine are not convincing of infection. Patient is conditional code DO NOT INTUBATE with other resuscitative measures approved. DVT prophylaxis SCDs and teds (2) Chronic diastolic CHF (congestive heart failure): Appears to be stable at this time. Continue home medicine furosemide 20 mg p.o. as needed, magnesium oxide 500 mg p.o. twice daily, metoprolol tartrate 25 mg p.o. daily, levothyroxine 120 mg p.o. every morning, simvastatin 40 mg p.o. nightly. (3) Obstructive sleep apnea: Continue CPAP (4) Depression: Stable, continue home medicine escitalopram 10 mg p.o. every morning, vitamin B12 500 MCG's p.o. daily, amitriptyline 10 mg p.o. daily Centrum Silver 1 tablet p.o. every morning. (5) Hypothyroidism: Continue levothyroxine 75 MCG's p.o. every other day (6) GERD (gastroesophageal reflux disease): Continue omeprazole 40 mg p.o. daily (7) HLD (hyperlipidemia): Continue simvastatin 80 mg p.o. nightly (8) HTN (hypertension): Continue home medicine as listed above. Stable. (9) COPD (chronic obstructive pulmonary disease) with acute bronchitis: Stable, continue prednisone 10 mg p.o. daily, fluticasone 100 MCG's, chloride 62.5 Lawson 25 MCG's powder blister, albuterol sulfate 90 MCG's 2 puffs every 4 hours as needed (10) Diabetes mellitus type 2 in nonobese: Glycemic control per pharmacy. Hold home hypoglycemic agents due to possible development of hypoglycemia and need to preserve kidney from side effects of contrast if patient needs radiological studies and when concomitantly continued hypoglycemic agents. Hemoglobin A1c 11.2, needs tighter glycemic control. Accu-Cheks AC at bedtime. Subjective Patient seen and examined at the bedside. No acute event overnight. He is afebrile. Patient is sitting up in the bed. He feels comfortable. Unfortunately 1 of 2 blood culture came back positive for gram-positive cocci in clusters. Patient states he feels much better. He denies fever, chills, chest pain, shortness of breath, abdominal pain, frequency, urgency. Review of Systems Review of Systems: All systems reviewed & are unremarkable except as noted in HPI & below Physical Exam Constitutional: WD/WN, vitals as above well developed and + ill appearing Eyes: PERRL, conjunctivae normal, anicteric sclerae ENMT: Ears: + hearing impairment Neck: trachea midline, no thyromegaly Respiratory: normal respiratory effort, lungs clear to auscultation Auscultation: + wheezes Cardiovascular: Rate/Rhythm: + irregularly irregular Heart Sounds: normal S1, normal S2 and + murmur Gastrointestinal (Abdomen): normal bowel sounds, soft, nontender, no hepatosplenomegaly Musculoskeletal: no cyanosis or clubbing, extremities motor strength 5/5 Skin: no rashes, warm and dry Neurologic: patellar DTR's 2+ bilat, sensation intact Psychiatric: A+Ox3, euthymic affect Lymphatic: no cervical or axillary lymphadenopathy Results & Data ([facility]) Vital Signs (Past 12 Hours) Vital Signs Temp Pulse Pulse Resp BP Pulse Ox 09/24/19 06:59 36.8 C 80 18 124/66 93 09/24/19 04:00 36.8 C 78 18 118/66 92 09/24/19 00:00 76 09/23/19 23:10 36.7 C 74 18 107/62 91 PG Care Time/CCT Total # of Minutes Spent Total Time Spent with Patient: Total time spent is greater than 50% in coordination of care (as documented) at patient's floor/unit and/or counseling patient: Coding Level of Care Code 80132 Subseq Hosp Care Lvl 3 Diagnoses Sepsis A41.9 Chronic diastolic CHF (congestive heart failure) I50.32 Obstructive sleep apnea G47.33 Depression F32.9 Depression Type: unspecified Hypothyroidism E03.9 Hypothyroidism type: unspecified GERD (gastroesophageal reflux disease) K21.9 Esophagitis presence: esophagitis presence not specified HLD (hyperlipidemia) E78.5 Hyperlipidemia type: unspecified HTN (hypertension) I10 Hypertension type: unspecified COPD (chronic obstructive pulmonary disease) with acute bronchitis J44.0; J20.9 Diabetes mellitus type 2 in nonobese E11.9 (1) Depression Depression Type: unspecified Qualified Code(s): F32.9 - Major depressive disorder, single episode, unspecified (2) HLD (hyperlipidemia) Hyperlipidemia type: unspecified Qualified Code(s): E78.5 - Hyperlipidemia, unspecified (3) Hypothyroidism Hypothyroidism type: unspecified Qualified Code(s): E03.9 - Hypothyroidism, unspecified (4) GERD (gastroesophageal reflux disease) Esophagitis presence: esophagitis presence not specified Qualified Code(s): K21.9 - Gastro-esophageal reflux disease without esophagitis (5) HTN (hypertension) Hypertension type: unspecified Qualified Code(s): I10 - Essential (primary) hypertension
[2019-09-24 07:48] LABS: Potassium 3.5 mmol/L (3.5-5.1)
[2019-09-24 07:52] LABS: Magnesium 2.2 mg/dl (1.8-2.4)
[2019-09-24] MEDS: NSS + 20MEQ KCL 20 MEQ/1,000 ML BAG IV SCH ×3 (08:41→21:25)
[2019-09-24] MEDS: FLUTICASONE FUROATE 100MCG 14 PUFFS/INHALER INH SCH (08:43)
[2019-09-24] MEDS: INSULIN GLARGINE SOLOSTAR 100 UNITS/ML 3 ML PEN SC SCH ×2 (08:44→21:21)
[2019-09-24] MEDS: UMECLIDINIUM/VILANTEROL 62.5/25MCG 7 PUFFS/INHALER INH SCH ×2 (08:44→08:48)
[2019-09-24] MEDS: METOPROLOL TARTRATE 25 MG TAB PO SCH (08:48)
[2019-09-24] MEDS: ESCITALOPRAM OXALATE 10 MG TAB PO SCH (08:48)
[2019-09-24] MEDS: CEROVITE ADV FORMULA TAB PO SCH (08:49)
[2019-09-24] MEDS: MAGNESIUM OXIDE 400 MG TAB PO SCH ×2 (08:49→21:22)
[2019-09-24] MEDS: predniSONE 10 MG TABLET PO SCH (08:49)
[2019-09-24] MEDS: PANTOprazole 40 MG TAB PO SCH (08:49)
[2019-09-24] MEDS: CYANOCOBALAMIN 500 MCG TABLET (VITAMIN B-12) PO SCH (08:49)
[2019-09-24] MEDS: AMITRIPTYLINE HCL 10 MG TAB PO SCH (08:49)
--- NOTE | 2019-09-24 14:52 | Pharmacy Report ---
Pharmacy Glycemic Short Note 2 - Date of Service September 24, 2019 - Glycemic Short BSG Results (Last 24 hours): 09/23/19 09/23/19 09/23/19 16:18 16:18 20:26 Glucose POC Glucose 318 H* 291 H 233 H 09/24/19 09/24/19 09/24/19 00:08 00:28 03:58 Glucose POC Glucose 159 H 170 H 105 H 09/24/19 09/24/19 09/24/19 05:26 07:35 12:10 Glucose 103 H POC Glucose 113 H 215 H OUTPATIENT ANTIDIABETIC REGIMEN: * glimepiride 3 mg qAM, metformin 1000 BID * A1c 11.2% 09/24/18 ASSESSMENT: * Mr. Knight BSGs were consistently in the 200s yesterday on arrival,with recent prednisone use. Fasting this morning within range (113) with 34 units of basal insulin, will continue scale for a maximum total basal dose of 34 units, however, uncertain if this will trend down further therefore will adjust scale * Lunch BSG elevated again, therefore tightened CF/CR with lunch, will monitor for additional changes needed * Continues on empiric zosyn, 1/ blood cultures with GPC in clusters (poss. contaminant) PLAN FOR INPATIENT GLYCEMIC CONTROL: * Hold outpatient oral diabetes medications * Basal insulin * Lantus 14 units this AM * Scale for PM * 10 units BSG <140 * 14 units BSG 140-225 * 20 units BSG >225 * Bolus insulin * NovoLog per scale ACHS or Q6hrs while NPO * Goal Range: Low 110 mg/dL - High 150 mg/dL * Correction Factor: 20 mg/dL/unit * Nutritional / Prandial insulin per carb ratio of 1 unit per 8 grams CHO consumed PLAN FOR DISCHARGE: * Most recent A1c 11.2%, this is above goal of <8%. Per conversation with community educator, patient is open to adding once-daily insulin into his outpatient regimen. Would recommend at this time starting with 16 units of insulin glargine (lantus or similar) QAM and titrating up with outpatient provider based on fasting results/ prednisone continuation.
[2019-09-24] MEDS: RIVAROXABAN 20 MG TAB PO SCH (21:25)
[2019-09-24] MEDS: SIMVASTATIN 40 MG TAB PO SCH (21:25)
[2019-09-25] MEDS: PIPERACILLIN/TAZOBACTAM 3.375 GM in DEXTROSE 5% 100 ML IV SCH ×2 (03:30→12:11)
[2019-09-25] MEDS: LEVOTHYROXINE SODIUM 75 MCG TABLET PO SCH (05:51)
[2019-09-25 05:59] LABS: Basophils # (auto) 0.02 K/uL (0-0.2); Basophils % (auto) 0.2 %; Eosinophils # (auto) 0.11 K/uL (0-0.5); Eosinophils % (auto) 1.1 %; Hematocrit (blood only) 32.7 % (42-52); Hemoglobin 10.6 g/dL (14.0-18.0); Immature Granulocytes # (auto) 0.23 K/uL (0.00-0.02); Immature Granulocytes % (auto) 2.2 %; Lymphocytes # (auto) 3.86 K/uL (1.2-3.4); Lymphocytes % (auto) 37.7 %; Mean Corpuscular Hemoglobin 29.9 pg (25-34); Mean Corpuscular Hgb Conc 32.4 g/dL (32-36); Mean Corpuscular Volume 92.4 fL (80-100); Mean Platelet Volume 9.9 fL (7.4-10.4); Monocytes # (auto) 1.12 K/uL (0.11-0.59); Monocytes % (auto) 10.9 %; Neutrophils # (auto) 4.91 K/uL (1.4-6.5); Neutrophils % (auto) 47.9 %; Platelet Count 220 K/uL (130-400); RDW Coefficient of Variation 14.1 % (11.5-14.5); RDW Standard Deviation 47.8 fL (36.4-46.3); Red Blood Count 3.54 M/uL (4.7-6.1); White Blood Count 10.25 K/uL (4.8-10.8)
[2019-09-25 06:37] LABS: Albumin Level 2.4 gm/dl (3.4-5.0); BUN Creatinine Ratio 14.9 (10-20); Calcium 8.6 mg/dl (8.5-10.1); Creatinine Clr Calc Pharmacy 56.8 ml/min; Est GFR (Non-African American) 61.3; Potassium 3.8 mmol/L (3.5-5.1)
[2019-09-25 06:40] LABS: Albumin Globulin Ratio 0.6 (0.9-2); Bilirubin,Total 0.3 mg/dl (0.2-1); Globulin 3.7 gm/dl (2.5-4.0); Total Protein 6.1 gm/dl (6.4-8.2)
[2019-09-25] MEDS: INSULIN ASPART 100 UNITS/ML 3 ML PEN SC SCH ×4 (08:37→20:38)
[2019-09-25] MEDS: ESCITALOPRAM OXALATE 10 MG TAB PO SCH (08:38)
[2019-09-25] MEDS: AMITRIPTYLINE HCL 10 MG TAB PO SCH (08:39)
[2019-09-25] MEDS: MAGNESIUM OXIDE 400 MG TAB PO SCH ×2 (08:39→20:35)
[2019-09-25] MEDS: predniSONE 10 MG TABLET PO SCH (08:39)
[2019-09-25] MEDS: METOPROLOL TARTRATE 25 MG TAB PO SCH (08:39)
[2019-09-25] MEDS: CEROVITE ADV FORMULA TAB PO SCH (08:39)
[2019-09-25] MEDS: PANTOprazole 40 MG TAB PO SCH (08:39)
[2019-09-25] MEDS: FLUTICASONE FUROATE 100MCG 14 PUFFS/INHALER INH SCH (08:40)
[2019-09-25] MEDS: CYANOCOBALAMIN 500 MCG TABLET (VITAMIN B-12) PO SCH (08:40)
[2019-09-25] MEDS: INSULIN GLARGINE SOLOSTAR 100 UNITS/ML 3 ML PEN SC SCH ×2 (08:41→20:39)
--- NOTE | 2019-09-25 14:19 | Hospitalist Progress Note ---
Date of Service September 25, 2019 Assessment & Plan (1) Sepsis: VSS, stable for transfer to floor Procalcitonin is elevated to 0.19 Started empirically Zosyn in the ER, will transition to ceftriaxone 1/2 blood was positive for gram positive cocci in clusters--coag neg staph with no sensitivities to follow Repeat blood cultures pending Repeated lactic acid 2.9--> 2 UA noted for + leuk est, neg nitrites with essentially neg cx on prelim Leukocytosis WNL Tolerating PO, will d/c IVF CTAP neg for infection Pt had AMS on admission that resolved s/p abx. There is no clear sign of infection at this point. Initial blood cx 1/2 positive with repeat pending. No clear source of infection, but pt with elevated WBC on admission that is now WNL. Will order Lyme testing (2) Chronic diastolic CHF (congestive heart failure): Appears to be stable at this time. Continue home medicine furosemide 20 mg p.o. as needed, magnesium oxide 500 mg p.o. twice daily, metoprolol tartrate 25 mg p.o. daily, levothyroxine 120 mg p.o. every morning, simvastatin 40 mg p.o. nightly. (3) Obstructive sleep apnea: Continue CPAP (4) Depression: Stable, continue home medicine escitalopram 10 mg p.o. every morning, vitamin B12 500 MCG's p.o. daily, amitriptyline 10 mg p.o. daily Centrum Silver 1 tablet p.o. every morning. (5) Hypothyroidism: Continue levothyroxine 75 MCG's p.o. every other day (6) GERD (gastroesophageal reflux disease): Continue omeprazole 40 mg p.o. daily (7) HLD (hyperlipidemia): Continue simvastatin 80 mg p.o. nightly (8) HTN (hypertension): Continue home medicine as listed above. Stable. (9) COPD (chronic obstructive pulmonary disease) with acute bronchitis: Stable, continue prednisone 10 mg p.o. daily, fluticasone 100 MCG's, chloride 62.5 Lawson 25 MCG's powder blister, albuterol sulfate 90 MCG's 2 puffs every 4 hours as needed (10) Diabetes mellitus type 2 in nonobese: Glycemic control per pharmacy. Hemoglobin A1c 11.2 Addition of lantus 16units QAM SSI PRN Subjective Pt feels much improved. His is present and states that he has not been confused since starting abx. 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 Tolerating PO without issue. Pt denies fever, SOB, chest pain, abd pain, n/v/c/d, LE pain or swelling. Review of Systems Review of Systems: Pertinent positives and negatives reviewed in HPI--all others negative Physical Exam Constitutional: WD/WN, vitals as above Eyes: normal visual art by confrontation and + anicteric sclerae Neck: normal visual inspection and trachea midline Respiratory: normal respiratory effort, lungs clear to auscultation Cardiovascular: Rate/Rhythm: regular rate and regular rhythm Gastrointestinal (Abdomen): Inspection/Auscultation: abdomen not distended Percussion/Palpation: abdomen soft; abdomen nontender Musculoskeletal: Head/Neck/Chest: normocephalic and head atraumatic negative for edema, peripheral pulses intact Skin: no rashes, warm and dry Neurologic: awake; not confused Speech / Cognition: normal speech Psychiatric: A+Ox3, euthymic affect Results & Data ([facility]) Vital Signs (Past 12 Hours) Vital Signs Temp Pulse Pulse Resp BP Pulse Ox 09/25/19 11:30 36.5 C 84 18 132/68 96 09/25/19 07:57 36.7 C 76 16 142/71 H 98 09/25/19 07:21 75 09/25/19 03:33 36.4 C L 71 16 138/70 95 PG Care Time/CCT Total # of Minutes Spent Total Time Spent with Patient: Total time spent is greater than 50% in coordin ation of care (as documented) at patient's floor/unit and/or counseling patient: Coding Level of Care Code 74211 Subseq Hosp Care Lvl 3 Diagnoses Sepsis A41.9 Chronic diastolic CHF (congestive heart failure) I50.32 Obstructive sleep apnea G47.33 Depression F32.9 Depression Type: unspecified Hypothyroidism E03.9 Hypothyroidism type: unspecified GERD (gastroesophageal reflux disease) K21.9 Esophagitis presence: esophagitis presence not specified HLD (hyperlipidemia) E78.5 Hyperlipidemia type: unspecified HTN (hypertension) I10 Hypertension type: unspecified COPD (chronic obstructive pulmonary disease) with acute bronchitis J44.0; J20.9 Diabetes mellitus type 2 in nonobese E11.9 (1) Depression Depression Type: unspecified Qualified Code(s): F32.9 - Major depressive disorder, single episode, unspecified (2) Hypothyroidism Hypothyroidism type: unspecified Qualified Code(s): E03.9 - Hypothyroidism, unspecified (3) GERD (gastroesophageal reflux disease) Esophagitis presence: esophagitis presence not specified Qualified Code(s): K21.9 - Gastro-esophageal reflux disease without esophagitis (4) HLD (hyperlipidemia) Hyperlipidemia type: unspecified Qualified Code(s): E78.5 - Hyperlipidemia, unspecified (5) HTN (hypertension) Hypertension type: unspecified Qualified Code(s): I10 - Essential (primary) hypertension
[2019-09-25] MEDS: NSS + 20MEQ KCL 20 MEQ/1,000 ML BAG IV SCH (15:54)
[2019-09-25 16:19] LABS: Lyme Ab IgG w/WB Rflx Negative (Negative); Lyme Ab IgM w/WB Rflx Negative (Negative)
[2019-09-25] MEDS ORDERED: cefTRIAXone SODIUM 2,000 MG in DEXTROSE 5% 50 ML IV SCH (20:00)
[2019-09-25] MEDS: RIVAROXABAN 20 MG TAB PO SCH (20:35)
[2019-09-25] MEDS: SIMVASTATIN 40 MG TAB PO SCH (20:35)
[2019-09-26 05:50] LABS: Basophils # (auto) 0.02 K/uL (0-0.2); Basophils % (auto) 0.2 %; Eosinophils # (auto) 0.14 K/uL (0-0.5); Eosinophils % (auto) 1.3 %; Hematocrit (blood only) 33.6 % (42-52); Immature Granulocytes # (auto) 0.22 K/uL (0.00-0.02); Immature Granulocytes % (auto) 2.1 %; Lymphocytes # (auto) 4.69 K/uL (1.2-3.4); Lymphocytes % (auto) 44.2 %; Mean Corpuscular Hemoglobin 30.1 pg (25-34); Mean Corpuscular Hgb Conc 32.7 g/dL (32-36); Mean Corpuscular Volume 91.8 fL (80-100); Mean Platelet Volume 9.7 fL (7.4-10.4); Monocytes # (auto) 1.15 K/uL (0.11-0.59); Monocytes % (auto) 10.8 %; Neutrophils % (auto) 41.4 %; Platelet Count 247 K/uL (130-400); Red Blood Count 3.66 M/uL (4.7-6.1); White Blood Count 10.62 K/uL (4.8-10.8)
[2019-09-26] MEDS: LEVOTHYROXINE SODIUM 75 MCG TABLET PO SCH (06:00)
[2019-09-26 06:27] LABS: Albumin Level 2.5 gm/dl (3.4-5.0); BUN Creatinine Ratio 19.7 (10-20); Calcium 8.9 mg/dl (8.5-10.1); Creatinine Clr Calc Pharmacy 61.7 ml/min; Est GFR (African American) 78.6; Est GFR (Non-African American) 67.8; Potassium 3.7 mmol/L (3.5-5.1)
[2019-09-26 06:30] LABS: Albumin Globulin Ratio 0.6 (0.9-2); Bilirubin,Total 0.2 mg/dl (0.2-1); Globulin 3.9 gm/dl (2.5-4.0); Total Protein 6.4 gm/dl (6.4-8.2)
[2019-09-26] MEDS ORDERED: INSULIN GLARGINE SOLOSTAR 100 UNITS/ML 3 ML PEN SC SCH ×2 (09:00→09:45)
[2019-09-26] MEDS: INSULIN ASPART 100 UNITS/ML 3 ML PEN SC SCH ×2 (09:38→12:39)
[2019-09-26] MEDS: UMECLIDINIUM/VILANTEROL 62.5/25MCG 7 PUFFS/INHALER INH SCH (09:43)
--- NOTE | 2019-09-26 09:43 | Pharmacy Report ---
Pharmacy Glycemic Short Note 2 - Date of Service September 26, 2019 - Glycemic Short BSG Results (Last 24 hours): 09/25/19 09/25/19 09/25/19 11:10 16:19 20:31 Glucose POC Glucose 244 H 187 H 195 H 09/26/19 09/26/19 05:36 07:56 Glucose 88 POC Glucose 91 OUTPATIENT ANTIDIABETIC REGIMEN: * glimepiride 3 mg qAM, metformin 1000 BID * A1c 11.2% 09/24/18 ASSESSMENT: 09/26/19 * Patient is currently receiving an average of 62 units of insulin per day * 34 units of basal insulin * 28 units of prandial/correctional insulin * BSGs ranging 88-244mg/dl over the past 24hrs * AM Fasting BSG = 88mg/dl therefore Basal insulin needs to all be moved to AM dosing and slightly reduced * Post-prandial BSGs are elevated/BSGs rise throughout the day therefore Tighten CR slightly 09/24/19 * Mr. Knight BSGs were consistently in the 200s yesterday on arrival,with recent prednisone use. Fasting this morning within range (113) with 34 units of basal insulin, will continue scale for a maximum total basal dose of 34 units, however, uncertain if this will trend down further therefore will adjust scale * Lunch BSG elevated again, therefore tightened CF/CR with lunch, will monitor for additional changes needed * Continues on empiric zosyn, 1/4 blood cultures with GPC in clusters (poss. contaminant) PLAN FOR INPATIENT GLYCEMIC CONTROL: * Hold outpatient oral diabetes medications * Basal insulin - move total daily dose to AM * Lantus 30 units SQ Daily * Bolus insulin * NovoLog per scale ACHS or Q6hrs while NPO * Goal Range: Low 110 mg/dL - High 150 mg/dL * Correction Factor: 20 mg/dL/unit * TIGHTEN: Nutritional / Prandial insulin per carb ratio of 1 unit per 7 grams CHO consumed PLAN FOR DISCHARGE: * Most recent A1c 11.2%, this is above goal of <8%. Per conversation with telehealth nurse educator, patient is open to adding once-daily insulin into his outpatient regimen. Would recommend at this time starting with 30 units of insulin glargine (lantus or similar) QAM and titrating up with outpatient provider based on fasting results/ prednisone continuation.
[2019-09-26] MEDS: FLUTICASONE FUROATE 100MCG 14 PUFFS/INHALER INH SCH (09:44)
[2019-09-26] MEDS: ESCITALOPRAM OXALATE 10 MG TAB PO SCH (09:44)
[2019-09-26] MEDS: AMITRIPTYLINE HCL 10 MG TAB PO SCH (09:44)
[2019-09-26] MEDS: CEROVITE ADV FORMULA TAB PO SCH (09:45)
[2019-09-26] MEDS: METOPROLOL TARTRATE 25 MG TAB PO SCH (09:45)
[2019-09-26] MEDS: MAGNESIUM OXIDE 400 MG TAB PO SCH (09:45)
[2019-09-26] MEDS: PANTOprazole 40 MG TAB PO SCH (09:46)
[2019-09-26] MEDS: CYANOCOBALAMIN 500 MCG TABLET (VITAMIN B-12) PO SCH (09:46)
[2019-09-26] MEDS: predniSONE 10 MG TABLET PO SCH (09:46)
--- NOTE | 2019-09-26 13:00 | Discharge Summary ---
Date of Service September 26, 2019 Admission HPI Per Admitting Provider The patient is a 79 years old male with past medical history of A. fib/atrial flutter on Xarelto, hypertension, COPD end-stage, prior prostate cancer, diastolic CHF, diabetes mellitus type 2, was brought by his stating that patient was disoriented last night and exhibited generalized weakness when he woke up from the bed trying to reach to bathroom. Per his patient did not fall and he sat on the floor and then they called the ambulance. Patient denies fever, chills, chest pain, shortness of breath, abdominal pain, frequency, urgency. Labs are reviewed: WBC is 15.3, hemoglobin 11.9, hematocrit 36.0, platelets 244, PT 11.4, INR 1.1, APTT 29.9, lactate 2.9--> 2, magnesium 1.7 replenished, AST 15, ALT 23, alkaline phosphatase 92, CK-MB 1.4, troponin 0.03, procalcitonin 0.19, urine cloudy, trace ketones and then with negative leukocyte esterase and negative WBCs negative nitrates. Flu A&B negative. Chest x-ray is shows that lungs are clear and there is no pneumothorax or pleural effusion. Ca rdiomegaly is again noted. Mediastinal contours are normal. No acute cardiopulmonary finding. No significant change in appearance of the chest. Blood cultures pending x2 and urine culture. Decision was made to admit patient to PCU on telemetry for further observation of sepsis with infection of unknown origin. Principal Diagnosis Pt continues to feel much improved. No further confusion or other AMS. Tolerating PO without issue. is present and states pt continues to be interacting at his usual. Pt denies fever, SOB, chest pain, abd pain, n/v/c/d, LE pain or swelling. Discharge Exam Constitutional WD/WN, vitals as above Eyes normal visual art by confrontation and + anicteric sclerae Neck normal visual inspection and trachea midline Respiratory normal respiratory effort, lungs clear to auscultation Cardiovascular Rate/Rhythm: regular rate and regular rhythm Gastrointestinal (Abdomen) Inspection/Auscultation: abdomen not distended Percussion/Palpation: abdomen soft; abdomen nontender Musculoskeletal Head/Neck/Chest: normocephalic and head atraumatic neg LE edema Skin no rashes, warm and dry Neurologic awake; not confused Speech / Cognition: normal speech Psychiatric A+Ox3, euthymic affect Discharge Data Allergies Allergy/AdvReac Type Severity Reaction Status Date / Time moxifloxacin Allergy Severe throat Verified 09/23/19 05:07 swelling ofloxacin Allergy Severe SWELLING Verified 09/23/19 05:07 AROUND FACE Quinolones Allergy Severe ANAPHYLAXIS Verified 09/23/19 05:07 formoterol Allergy Intermediate RASH Verified 09/23/19 05:07 Sulfa (Sulfonamide Allergy Intermediate severe red Verified 09/23/19 05:07 Antibiotics) rash Consultations 09/23/19 07:03 ED Decision to Admit Stat Ordered Studies 09/23/19 17:42 CT abd pelvis wo con Stat Hospital Course (1) Sepsis: Sepsis with metabolic encephalopathy Procalcitonin is elevated to 0.19 Started empirically Zosyn in the ER, d/c'd on 09/25 and no fevers, AMS, or change in WBC 1/2 blood was positive for gram positive cocci in clusters--coag neg staph with no sensitivities to follow Repeat blood cultures neg on prelim Lactic acid 2.9--> 2.0 s/p admission UA noted for + leuk est, neg nitrites with essentially neg cx on prelim CTAP neg for infection Pt had AMS on admission that resolved s/p abx. There is no clear sign of infection at this point. Initial blood cx 1/2 positive with repeat pending. No clear source of infection, but pt with elevated WBC on admission that is now WNL. Lyme neg No meningeal sx to suggest need for LP No diarrheal sx Will complete a 7 day course of abx with keflex as outpt given clear improvement with abx despite no clear source of infection (2) Chronic diastolic CHF (congestive heart failure): Appears to be stable at this time. Continue home medicine furosemide 20 mg p.o. as needed, magnesium oxide 500 mg p.o. twice daily, metoprolol tartrate 25 mg p.o. daily, levothyroxine 120 mg p.o. every morning, simvastatin 40 mg p.o. nightly. (3) Obstructive sleep apnea: Continue CPAP (4) Depression: Stable, continue home medicine escitalopram 10 mg p.o. every morning, vitamin B12 500 MCG's p.o. daily, amitriptyline 10 mg p.o. daily Centrum Silver 1 tablet p.o. every morning. (5) Hypothyroidism: Continue levothyroxine 75 MCG's p.o. every other day (6) GERD (gastroesophageal reflux disease): Continue omeprazole 40 mg p.o. daily (7) HLD (hyperlipidemia): Continue simvastatin 80 mg p.o. nightly (8) HTN (hypertension): Continue home medicine as listed above. Stable. (9) COPD (chronic obstructive pulmonary disease) with acute bronchitis: Stable, continue prednisone 10 mg p.o. daily, fluticasone 100 MCG's, chloride 62.5 Lawson 25 MCG's powder blister, albuterol sulfate 90 MCG's 2 puffs every 4 hours as needed (10) Diabetes mellitus type 2 in nonobese: Glycemic control per pharmacy. Hemoglobin A1c 11.2 Addition of lantus 16units QAM SSI PRN Total Time Total Time Spent Total Time Spent (In Minutes): >30 Total Time Includes: Examination of the Patient, Discharge Planning, Medication Reconciliation and Other Discharge Plan Discharge Items Patient Disposition: Home - Self-Care Reason For Visit: SEPSIS Discharge Diagnosis: Sepsis, unknown source Activity: Resume your previous activity Non-emergency contact: Primary Care Provider Call non-emergency contact if: you have any medication questions and your symptoms worsen Follow-up/Referrals: Howard Gunderson MD [Primary Care Provider] - 10/01/19 11:00 am (Please call [phone] if you are unable to keep this appointment. Your appointment will be with Haylie in the [place] [facility]. ) Diet: Carb Consistent or DM2 Addtl Attending Provider Instructions: You should check your blood sugars daily before breakfast to monitor the change in your diabetic medications. Your insulin dose may need adjusted, especially if you are feeling lightheaded or otherwise unwell. If that happens, you should check your blood sugars at that time. Be sure to bring your blood sugar journals to your appointments with your PCP. Pending Studies at Discharge: Yes Studies:: Final blood cultures (second set) Stand-Alone Forms: [employer], Smoking Cessation Medications and DC Order Prescriptions: New Lantus Solostar U-100 Insulin 100 unit/mL (3 mL) Insulin Pen 30 unit SC DAILY Qty: 15 RF: 1 cephalexin [Keflex] 500 mg capsule 500 mg PO Q8H 5 Days Qty: 15 RF: 0 Continued metformin 1,000 mg tablet 1,000 mg PO BID Qty: 180 RF: 3 Xarelto 20 mg tablet 20 mg PO QPM Qty: 90 RF: 1 (DME) Contour Test Strips strip See Dose Instructions .ROUTE .MEDSUPPLY Qty: 100 RF: 5 (DME) lancets [Microlet Lancet] misc See Dose Instructions .ROUTE .MEDSUPPLY Qty: 100 RF: 3 omeprazole 40 mg capsule,delayed release(DR/EC) 40 mg PO DAILY Qty: 30 RF: 2 amitriptyline 10 mg tablet 10 mg PO DAILY Qty: 30 RF: 5 levothyroxine 75 mcg tablet 75 mcg PO Q2D 30 Days Qty: 20 RF: 5 magnesium oxide 500 mg tablet 500 mg PO BID RF: 0 metoprolol tartrate 25 mg tablet 25 mg PO DAILY Qty: 60 RF: 0 [id number] [Trelegy Ellipta] 100-62.5-25 mcg blister with device 0 ea inhalation UD RF: 0 albuterol sulfate 90 mcg/actuation HFA aerosol inhaler 2 puffs INH Q4H PRN (Reason: Shortness Of Breath) RF: 0 levothyroxine 75 mcg Tablet 37.5 mcg PO Q2D RF: 0 Centrum Silver 0.4-300-250 mg-mcg-mcg Tablet 1 tab PO QAM RF: 0 simvastatin 80 mg tablet 40 mg PO HS RF: 0 prednisone 10 mg tablet 10 mg PO DAILY Qty: 12 RF: 0 escitalopram oxalate 20 mg tablet 10 mg PO QAM RF: 0 cyanocobalamin (vitamin B-12) [Vitamin B-12] 500 mcg Tablet 500 mcg PO DAILY RF: 0 furosemide [Lasix] 20 mg tablet 20 mg PO DAILY PRN (Reason: Fluid Retention) RF: 0 Discontinued glimepiride 2 mg tablet 3 mg PO QAM RF: 0 Discharge Orders: Discharge Order (Routine); Ordered 09/26/19 Ordered By: Ana Beckman Admission Data Admit Date/Time: 09/23/19 07:32 Attending Provider: Ana Beckman Admit Provider: Kena Shirley Primary Care Provider: Howard Gunderson Other Providers: Kena Shirley Other Interventions: Discharge Summary Assessment (RN) Last Done: 09/26/19 12:44 DC Date/Time DO NOT enter until pt leaves facility: 09/26/19 13:45 Coding Level of Care Code D/C Day Management >30 mins Diagnoses Sepsis A41.9 Chronic diastolic CHF (congestive heart failure) I50.32 Obstructive sleep apnea G47.33 Depression F32.9 Depression Type: unspecified Hypothyroidism E03.9 Hypothyroidism type: unspecified GERD (gastroesophageal reflux disease) K21.9 Esophagitis presence: esophagitis presence not specified HLD (hyperlipidemia) E78.5 Hyperlipidemia type: unspecified HTN (hypertension) I10 Hypertension type: unspecified COPD (chronic obstructive pulmonary disease) with acute bronchitis J44.0; J20.9 Diabetes mellitus type 2 in nonobese E11.9
== END 2019-09-26 13:45 | disposition home health service (06) | DRG 871 ==
LOC: ED 04:48 → SUATTDRO 07:32 → 2S 07:32 → 4W 09-25 17:37

== ENCOUNTER 2020-03-27 20:16 | Inpatient (IN) ==
--- NOTE | 2020-03-27 20:38 | Emergency Department Note ---
Impression & Plan Pneumonia, Atrial fibrillation with rapid ventricular response, Elevated troponin I level ED Provider Note NAME: ALAYNA LATHAM AGE: 80 SEX: M : 1940 ARRIVES VIA: Ambulance INFORMANT: Patient, prehospital personnel ED PROVIDER(S): Mohit Charles DO CHIEF COMPLAINT: Shortness of breath HPI: The patient is an 80-year-old male who presented to the emergency department for an evaluation of difficulty breathing. He states that over the last 2 to 3 days he is been having slowly worsening shortness of breath. His symptoms became much worse over the last 24 hours. He complains of a slight cough which is nonproductive. He is also noticed difficulty breathing and shortness of breath with exertion. He denies having any lower extremity swelling. He has no abdominal pain. He denies having any chest pain. The patient took medication for fever prior to arrival. His family began concerned became concerned when he started having worsening shortness of breath and 911 was called. The patient has not been seen by his primary care physician for the symptoms. The patient received a small fluid bolus prior to arrival. He was found to be in rapid atrial fibrillation and had grunting respirations. He was placed on BiPAP prior to arrival. Oxygen saturations were reportedly always greater than 90. The patient states his symptoms are significantly improved. ROS: See above HPI for pertinent positives & negatives. A total of 10 systems reviewed and were otherwise negative. PAST MEDICAL HISTORY: See Below PAST SURGICAL HISTORY: See Below FAMILY HISTORY: See Below SOCIAL HISTORY: See Below HOME MEDICATIONS: See Below ALLERGIES: See Below VITALS: See Below PHYSICAL EXAMINATION: GENERAL: The patient is awake and alert. He is somewhat anxious appearing. EYES: The conjunctivae are clear. The pupils are round and reactive. EARS, NOSE, MOUTH AND THROAT: The nose is without any evidence of any deformity. NECK: The neck is nontender and supple. RESPIRATORY: Shallow respirations were noted. There were diminished breath sounds in the right lung field. There were rales in the left lung. There is significant tachypnea and conversational dyspnea CARDIOVASCULAR: Tachycardic rate was noted. Irregular rhythm was noted to auscultation. No definite murmur was noted however the heart rate was very high and it was difficult to auscultate for murmur. GASTROINTESTINAL: The abdomen is soft. Abdomen is nontender. MUSCULOSKELETAL/EXTREMITIES: There is no evidence of gross deformity full range of motion is noted in the hips and shoulders. SKIN: Skin is warm and dry. There is pedal edema bilaterally. NEUROLOGIC: Patient is awake alert and oriented x3. MEDICAL DECISION MAKING: The patient is an 80-year-old male who presented to the emergency department via ALS for an evaluation of difficulty breathing and fever. The patient presented to the emergency department with a history and physical exam that I thought was consistent with pneumonia. Chest x-ray. Consistent with infiltrate in the right lung field. The patient was treated with IV antibiotics in the emergency department. He was also found to have A. fib with RVR. His blood pressure was tenuous at times. He did have a beta-morales ordered however he was unable to receive this because his blood pressure did drop. The patient was further treated with IV fluids. He was reevaluated multiple times. His pulse overall did improve. His blood pressure also improved. Given the patient's cardiac history we were very cautious with IV hydration. I discussed the patient's laboratory and radiographic studies with him and his significant other. I also discussed his case with the on-call [facility] hospitalist. They have agreed to evaluate the patient in the emergency department for further management and disposition. Triage Nursing notes reviewed. Prior medical records reviewed Vital Signs: reviewed and remarkable for fever, tachycardia, transient hypotension. Differential diagnosis: Viral syndrome, otitis, pharyngitis, pneumonia, influenza, meningitis, urinary tract infection, sepsis, bacteremia, as well as other pathologies. ER treatment provided: See below Diagnostics interpreted by me: ECG: EKG was obtained in the emergency department. My interpretation is atrial fibrillation at 157 bpm. A partial right bundle branch block was suggested. Diffuse ST segment abnormalities were noted. This was compared to a tracing from January 202019. Sinus mechanism has been replaced with atrial fibrillation with rapid ventricular response. Cardiac Monitoring: An order was placed for continuous cardiac monitoring. The monitor shows a rate of 125 with atrial fibrillation rhythm. Laboratory studies: As stated above and show below. Imaging studies: See below Consultation(s): 223: I discussed this case with Dr. Muller. He will evaluate the patient in the emergency department for further management and disposition. 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 (Acute) Mild HOCM (hypertrophic obstructive cardiomyopathy) Nephrolithiasis (Acute) Obstructive sleep apnea (Acute) On anticoagulant therapy xarelto daily On home oxygen therapy 2L N/C at hs Organic impotence (Acute) Pericardial effusion (Acute) Pleural effusion (Acute) HX OF Prostate cancer (Acute) Steroid-induced osteopenia (Acute) Surgical History H/O cystoscopy (Acute) "History of Cystoscopy With Insertion Of Ureteral Stent" on CCD H/O tooth extraction (Acute) History of bronchoscopy History of cardiac radiofrequency ablation History of prostatectomy (Acute) History of repair of right rotator cuff Hx of colonoscopy Hx of esophagogastroduodenoscopy Family History Sister Ovarian cancer Mother Skin cancer Myocardial infarction Grandfather Myocardial infarction Other No family history of adverse response to anesthesia Stroke Denies family history of Prostate cancer Breast cancer Colorectal cancer Social History Smoking Status: Former smoker Second Hand Exposure: No; Hx Alcohol Use: No Hx Substance Use: No Preferred Language: Tamazight Communication Ability: Effective Visual Impairment: No Limitations Hearing Ability: Use of Hearing Aid Rn Teacher Required: No Beliefs That Will Affect Care: None marital status: Current Living Situation: Spouse current occupational status: retired Feels Safe at Home: Yes Safety Concerns: Feels Safe At This Time Childhood Exposure to Second-Hand Smoke: No caffeine: Yes during the past year weight has: remained stable Dental Care, Regularly: No Physical Activity Frequency: Does not Exercise Seatbelt Use: always Sunscreen Use: No Allergies Allergies Allergy/AdvReac Type Severity Reaction Status Date / Time moxifloxacin Allergy Severe throat Verified 03/27/20 22:55 swelling ofloxacin Allergy Severe SWELLING Verified 03/27/20 22:55 AROUND FACE Quinolones Allergy Severe ANAPHYLAXIS Verified 03/27/20 22:55 formoterol Allergy Intermediate RASH Verified 03/27/20 22:56 Sulfa (Sulfonamide Allergy Intermediate severe red Verified 03/27/20 22:56 Antibiotics) rash Home Meds Home Medications Medication Instructions Recorded Confirmed cyanocobalamin (vitamin B-12) 500 mcg PO DAILY 05/02/19 03/27/20 [Vitamin B-12] magnesium oxide 500 mg tablet 500 mg PO BID tab 05/07/19 03/27/20 glucosamine-chondroitin 250 mg-200 1 tab PO BID 02/11/20 03/27/20 mg tablet levothyroxine 37.5 mcg PO Q2D 03/27/20 03/27/20 levothyroxine 75 mcg PO Q2D 03/27/20 03/27/20 multivitamin with minerals 1 tab PO DAILY 03/27/20 03/27/20 [Multiple Vitamin-Minerals] Previous Rx's Medication Instructions Recorded metformin 1,000 mg tablet 1,000 mg PO BID #180 tab 02/24/19 prednisone 10 mg PO DAILY #12 tab 04/05/19 escitalopram oxalate 10 mg tablet 10 mg PO QAM #90 tab 11/18/19 rivaroxaban 20 mg tablet 20 mg PO QPM #90 tab 11/20/19 albuterol sulfate 2.5 mg INH Q4H PRN #360 ml 11/25/19 albuterol sulfate 90 mcg/actuation 2 puffs INH Q4H PRN #8.5 gm 02/11/20 aerosol inhaler glimepiride 2 mg tablet 2 mg PO DAILY #90 tab 02/11/20 omeprazole 40 mg capsule,delayed 40 mg PO DAILY #90 cap 02/11/20 release insulin glargine 100 unit/mL (3 45 units SC DAILY #15 ml 02/13/20 mL) subcutaneous pen furosemide 20 mg tablet 20 mg PO BID #180 tab 02/23/20 simvastatin 80 mg tablet 40 mg PO HS #90 tab 03/03/20 Results & Data (ED) Vital Signs Vital Signs - 24 hr 03/27/20 20:22 03/27/20 20:24 03/27/20 20:28 Pulse Rate 175 H 182 H 174 H Pulse Rate [Apical] Pulse Rate from SpO2 Sensor 139 H 148 H Pulse Rhythm Irregular Respiratory Rate 16 Respiratory Effort / Characteristics Respiratory Depth Respiratory Pattern Blood Pressure 129/76 129/76 Blood Pressure Mean 93 94 Blood Pressure Position Lying Pulse Oximetry 98 97 97 Oxygen Delivery Method CPAP Oxygen Flow Rate Fraction of Inspired Oxygen 30 Sepsis Recent Fever Within 48 Hours Yes Sepsis New/Unexplained Change in Mental Status N/A Sepsis Action Taken by Nursing No Action Required 03/27/20 20:30 03/27/20 20:41 03/27/20 20:50 Pulse Rate 177 H 183 H 155 H Pulse Rate [Apical] Pulse Rate from SpO2 Sensor 138 H 146 H Pulse Rhythm Respiratory Rate Respiratory Effort / Characteristics Respiratory Depth Respiratory Pattern Blood Pressure Blood Pressure Mean Blood Pressure Position Pulse Oximetry 96 95 Oxygen Delivery Method Oxygen Flow Rate Fraction of Inspired Oxygen Sepsis Recent Fever Within 48 Hours Sepsis New/Unexplained Change in Mental Status Sepsis Action Taken by Nursing 03/27/20 20:54 03/27/20 21:00 03/27/20 21:01 Pulse Rate 174 H 169 H 166 H Pulse Rate [Apical] Pulse Rate from SpO2 Sensor 166 H 171 H 165 H Pulse Rhythm Respiratory Rate 22 Respiratory Effort / Characteristics Non-Labored Spontaneous Respiratory Depth Normal Respiratory Pattern Regular Blood Pressure 93/74 L 114/86 Blood Pressure Mean 83 88 Blood Pressure Position Pulse Oximetry 93 95 94 Oxygen Delivery Method Oxygen Flow Rate Fraction of Inspired Oxygen 30 Sepsis Recent Fever Within 48 Hours Sepsis New/Unexplained Change in Mental Status Sepsis Action Taken by Nursing 03/27/20 21:08 03/27/20 21:11 03/27/20 21:15 Pulse Rate 160 H 154 H 166 H Pulse Rate [Apical] Pulse Rate from SpO2 Sensor 143 H 147 H Pulse Rhythm Irregular Respiratory Rate 16 Respiratory Effort / Characteristics Respiratory Depth Respiratory Pattern Blood Pressure 114/88 Blood Pressure Mean 97 Blood Pressure Position Pulse Oximetry 95 95 95 Oxygen Delivery Method Nasal Cannula Oxygen Flow Rate 2 Fraction of Inspired Oxygen Sepsis Recent Fever Within 48 Hours Sepsis New/Unexplained Change in Mental Status Sepsis Action Taken by Nursing 03/27/20 21:20 03/27/20 21:30 03/27/20 21:41 Pulse Rate 170 H 170 H 145 H Pulse Rate [Apical] Pulse Rate from SpO2 Sensor 146 H 137 H 144 H Pulse Rhythm Respiratory Rate Respiratory Effort / Characteristics Respiratory Depth Respiratory Pattern Blood Pressure 106/77 Blood Pressure Mean 86 Blood Pressure Position Pulse Oximetry 95 95 95 Oxygen Delivery Method Oxygen Flow Rate Fraction of Inspired Oxygen Sepsis Recent Fever Within 48 Hours Sepsis New/Unexplained Change in Mental Status Sepsis Action Taken by Nursing 03/27/20 21:45 03/27/20 21:50 03/27/20 22:00 Pulse Rate 145 H 166 H 153 H Pulse Rate [Apical] Pulse Rate from SpO2 Sensor 133 H 133 H 134 H Pulse Rhythm Respiratory Rate Respiratory Effort / Characteristics Respiratory Depth Respiratory Pattern Blood Pressure 136/76 Blood Pressure Mean 81 Blood Pressure Position Pulse Oximetry 95 96 97 Oxygen Delivery Method Oxygen Flow Rate Fraction of Inspired Oxygen Sepsis Recent Fever Within 48 Hours Sepsis New/Unexplained Change in Mental Status Sepsis Action Taken by Nursing 03/27/20 22:01 03/27/20 22:10 03/27/20 22:15 Pulse Rate 157 H 167 H 156 H Pulse Rate [Apical] Pulse Rate from SpO2 Sensor 149 H 142 H 124 H Pulse Rhythm Respiratory Rate Respiratory Effort / Characteristics Respiratory Depth Respiratory Pattern Blood Pressure 117/90 Blood Pressure Mean 96 Blood Pressure Position Pulse Oximetry 96 91 94 Oxygen Delivery Method Oxygen Flow Rate Fraction of Inspired Oxygen Sepsis Recent Fever Within 48 Hours Sepsis New/Unexplained Change in Mental Status Sepsis Action Taken by Nursing 03/27/20 22:20 03/27/20 22:21 03/27/20 22:23 Pulse Rate 147 H 150 H 142 H Pulse Rate [Apical] Pulse Rate from SpO2 Sensor 125 H 128 H 118 H Pulse Rhythm Respiratory Rate Respiratory Effort / Characteristics Respiratory Depth Respiratory Pattern Blood Pressure 110/47 L Blood Pressure Mean 56 Blood Pressure Position Pulse Oximetry 96 95 96 Oxygen Delivery Method Oxygen Flow Rate Fraction of Inspired Oxygen Sepsis Recent Fever Within 48 Hours Sepsis New/Unexplained Change in Mental Status Sepsis Action Taken by Nursing 03/27/20 22:30 03/27/20 22:35 03/27/20 22:40 Pulse Rate 146 H 155 H Pulse Rate [Apical] 156 H Pulse Rate from SpO2 Sensor 124 H 112 H Pulse Rhythm Respiratory Rate 20 Respiratory Effort / Characteristics Non-Labored Spontaneous Respiratory Depth Respiratory Pattern Blood Pressure 117/67 Blood Pressure Mean 75 Blood Pressure Position Pulse Oximetry 96 95 99 Oxygen Delivery Method Nasal Cannula Oxygen Flow Rate 2 Fraction of Inspired Oxygen Sepsis Recent Fever Within 48 Hours Sepsis New/Unexplained Change in Mental Status Sepsis Action Taken by Nursing 03/27/20 22:45 03/27/20 22:51 03/27/20 23:01 Pulse Rate 163 H 164 H 167 H Pulse Rate [Apical] Pulse Rate from SpO2 Sensor 120 H 128 H Pulse Rhythm Respiratory Rate 24 Respiratory Effort / Characteristics Respiratory Depth Respiratory Pattern Blood Pressure 128/76 107/85 Blood Pressure Mean 95 102 Blood Pressure Position Pulse Oximetry 96 97 95 Oxygen Delivery Method Oxygen Flow Rate Fraction of Inspired Oxygen Sepsis Recent Fever Within 48 Hours Sepsis New/Unexplained Change in Mental Status Sepsis Action Taken by Nursing 03/27/20 23:15 03/27/20 23:30 03/27/20 23:31 Pulse Rate 147 H 138 H 160 H Pulse Rate [Apical] Pulse Rate from SpO2 Sensor Pulse Rhythm Respiratory Rate 20 20 22 Respiratory Effort / Characteristics Respiratory Depth Respiratory Pattern Blood Pressure 95/71 L 104/76 Blood Pressure Mean 89 82 Blood Pressure Position Pulse Oximetry 96 95 96 Oxygen Delivery Method Oxygen Flow Rate Fraction of Inspired Oxygen Sepsis Recent Fever Within 48 Hours Sepsis New/Unexplained Change in Mental Status Sepsis Action Taken by [facility] Medications Current Medication List: was personally reviewed by me Laboratory Data Attestation: I reviewed the patient's lab results. Result diagrams: 03/28/20 02:06 03/28/20 02:06 Lab Results 03/27/20 03/27/20 03/27/20 Range/Units 20:35 20:35 20:35 WBC 17.54 H (4.8-10.8) K/uL RBC 4.30 L (4.7-6.1) M/uL Hgb 12.7 L (14.0-18.0) g/dL Hct 39.9 L (42-52) % MCV 92.8 (80-100) fL MCH 29.5 (25-34) pg MCHC 31.8 L (32-36) g/dL RDW Std Deviation 51.7 H (36.4-46.3) fL RDW Coeff of Ruddy 15.3 H (11.5-14.5) % Plt Count 249 (130-400) K/uL MPV 10.3 (7.4-10.4) fL Neutrophils % (Manual) 59.9 % Lymphocytes % (Manual) 33.9 % Monocytes % (Manual) 3.5 % Eosinophils % (Manual) 0.9 % Basophils % (Manual) 0.9 % Myelocytes % (Man) 0.9 % Neutrophils # (Manual) 10.51 H (1.4-6.5) K/uL Total Absolute Neuts 10.51 H (1.4-6.5) K/uL Lymphocytes # (Manual) 5.95 H (1.2-3.4) K/uL Total Abs Lymphocytes 5.95 H (1.2-3.4) K/uL Monocytes # (Manual) 0.61 H (0.11-0.59) K/uL Eosinophils # (Manual) 0.16 (0-0.5) K/uL Basophils # (Manual) 0.16 (0-0.2) K/uL Myelocytes # (Manual) 0.16 H (0-0) K/uL RBC Morphology Unremarkable ESR 20 H (0-14) mm/hr PT 11.6 (9.0-12.0) Seconds INR 1.1 (0.9-1.1) APTT 29.4 (21.0-31.0) Seconds PTT Ratio 1.1 VBG pH (7.36-7.41) VBG pCO2 (38-50) mmHg VBG pO2 mmHg VBG HCO3 mmol/L VBG O2 Saturation % VBG Base Excess mEq/L Barometric Pressure mm/Hg Sodium (136-145) mmol/L Potassium (3.5-5.1) mmol/L Chloride (98-107) mmol/L Carbon Dioxide (21-32) mmol/L Anion Gap (3-11) BUN (7-18) mg/dl Creatinine (0.6-1.4) mg/dl Est Cr Clr Drug Dosing ml/min Est GFR ( Amer) Est GFR (Non-Af Amer) BUN/Creatinine Ratio (10-20) Glucose (70-99) mg/dl Lactate (0.4-2.0) mmol/L Calcium (8.5-10.1) mg/dl Magnesium (1.8-2.4) mg/dl Total Bilirubin (0.2-1) mg/dl AST (15-37) U/L ALT (12-78) U/L Alkaline Phosphatase (45-117) U/L Troponin I (0-0.045) ng/ml C-Reactive Protein (0-0.29) mg/dl NT-Pro-B Natriuret Pep (0-1800) pg/ml Total Protein (6.4-8.2) gm/dl Albumin (3.4-5.0) gm/dl Globulin (2.5-4.0) gm/dl Albumin/Globulin Ratio (0.9-2) Procalcitonin (0-0.5) ng/ml COVID-19 Eval Order COVID-19 PCR (Negative) 03/27/20 03/27/20 03/27/20 Range/Units 20:35 20:35 20:35 WBC (4.8-10.8) K/uL RBC (4.7-6.1) M/uL Hgb (14.0-18.0) g/dL Hct (42-52) % MCV (80-100) fL MCH (25-34) pg MCHC (32-36) g/dL RDW Std Deviation (36.4-46.3) fL RDW Coeff of Ruddy (11.5-14.5) % Plt Count (130-400) K/uL MPV (7.4-10.4) fL Neutrophils % (Manual) % Lymphocytes % (Manual) % Monocytes % (Manual) % Eosinophils % (Manual) % Basophils % (Manual) % Myelocytes % (Man) % Neutrophils # (Manual) (1.4-6.5) K/uL Total Absolute Neuts (1.4-6.5) K/uL Lymphocytes # (Manual) (1.2-3.4) K/uL Total Abs Lymphocytes (1.2-3.4) K/uL Monocytes # (Manual) (0.11-0.59) K/uL Eosinophils # (Manual) (0-0.5) K/uL Basophils # (Manual) (0-0.2) K/uL Myelocytes # (Manual) (0-0) K/uL RBC Morphology ESR (0-14) mm/hr PT (9.0-12.0) Seconds INR (0.9-1.1) APTT (21.0-31.0) Seconds PTT Ratio VBG pH (7.36-7.41) VBG pCO2 (38-50) mmHg VBG pO2 mmHg VBG HCO3 mmol/L VBG O2 Saturation % VBG Base Excess mEq/L Barometric Pressure mm/Hg Sodium 139 (136-145) mmol/L Potassium 4.1 (3.5-5.1) mmol/L Chloride 111 H (98-107) mmol/L Carbon Dioxide 22 (21-32) mmol/L Anion Gap 6.0 (3-11) BUN 24 H (7-18) mg/dl Creatinine 1.44 H (0.6-1.4) mg/dl Est Cr Clr Drug Dosing 46.9 ml/min Est GFR ( Amer) 52.0 Est GFR (Non-Af Amer) 44.9 BUN/Creatinine Ratio 16.5 (10-20) Glucose 190 H (70-99) mg/dl Lactate 3.4 H* (0.4-2.0) mmol/L Calcium 8.8 (8.5-10.1) mg/dl Magnesium 1.7 L (1.8-2.4) mg/dl Total Bilirubin 0.5 (0.2-1) mg/dl AST 16 (15-37) U/L ALT 28 (12-78) U/L Alkaline Phosphatase 60 (45-117) U/L Troponin I 0.199 H* (0-0.045) ng/ml C-Reactive Protein 2.96 H (0-0.29) mg/dl NT-Pro-B Natriuret Pep 4275 H (0-1800) pg/ml Total Protein 6.5 (6.4-8.2) gm/dl Albumin 3.0 L (3.4-5.0) gm/dl Globulin 3.5 (2.5-4.0) gm/dl Albumin/Globulin Ratio 0.9 (0.9-2) Procalcitonin 0.13 (0-0.5) ng/ml COVID-19 Eval Order COVID-19 PCR (Negative) 03/27/20 03/27/20 03/27/20 Range/Units 20:35 21:04 21:04 WBC (4.8-10.8) K/uL RBC (4.7-6.1) M/uL Hgb (14.0-18.0) g/dL Hct (42-52) % MCV (80-100) fL MCH (25-34) pg MCHC (32-36) g/dL RDW Std Deviation (36.4-46.3) fL RDW Coeff of Ruddy (11.5-14.5) % Plt Count (130-400) K/uL MPV (7.4-10.4) fL Neutrophils % (Manual) % Lymphocytes % (Manual) % Monocytes % (Manual) % Eosinophils % (Manual) % Basophils % (Manual) % Myelocytes % (Man) % Neutrophils # (Manual) (1.4-6.5) K/uL Total Absolute Neuts (1.4-6.5) K/uL Lymphocytes # (Manual) (1.2-3.4) K/uL Total Abs Lymphocytes (1.2-3.4) K/uL Monocytes # (Manual) (0.11-0.59) K/uL Eosinophils # (Manual) (0-0.5) K/uL Basophils # (Manual) (0-0.2) K/uL Myelocytes # (Manual) (0-0) K/uL RBC Morphology ESR (0-14) mm/hr PT (9.0-12.0) Seconds INR (0.9-1.1) APTT (21.0-31.0) Seconds PTT Ratio VBG pH 7.45 H (7.36-7.41) VBG pCO2 32 L (38-50) mmHg VBG pO2 58 mmHg VBG HCO3 22 mmol/L VBG O2 Saturation 87.8 % VBG Base Excess -1.4 mEq/L Barometric Pressure 735.2 mm/Hg Sodium (136-145) mmol/L Potassium (3.5-5.1) mmol/L Chloride (98-107) mmol/L Carbon Dioxide (21-32) mmol/L Anion Gap (3-11) BUN (7-18) mg/dl Creatinine (0.6-1.4) mg/dl Est Cr Clr Drug Dosing ml/min Est GFR ( Amer) Est GFR (Non-Af Amer) BUN/Creatinine Ratio (10-20) Glucose (70-99) mg/dl Lactate (0.4-2.0) mmol/L Calcium (8.5-10.1) mg/dl Magnesium (1.8-2.4) mg/dl Total Bilirubin (0.2-1) mg/dl AST (15-37) U/L ALT (12-78) U/L Alkaline Phosphatase (45-117) U/L Troponin I (0-0.045) ng/ml C-Reactive Protein (0-0.29) mg/dl NT-Pro-B Natriuret Pep (0-1800) pg/ml Total Protein (6.4-8.2) gm/dl Albumin (3.4-5.0) gm/dl Globulin (2.5-4.0) gm/dl Albumin/Globulin Ratio (0.9-2) Procalcitonin (0-0.5) ng/ml COVID-19 Eval Order Covid19 Done at [facility] COVID-19 PCR NEGATIVE (Negative) 03/27/20 Range/Units 22:41 WBC (4.8-10.8) K/uL RBC (4.7-6.1) M/uL Hgb (14.0-18.0) g/dL Hct (42-52) % MCV (80-100) fL MCH (25-34) pg MCHC (32-36) g/dL RDW Std Deviation (36.4-46.3) fL RDW Coeff of Ruddy (11.5-14.5) % Plt Count (130-400) K/uL MPV (7.4-10.4) fL Neutrophils % (Manual) % Lymphocytes % (Manual) % Monocytes % (Manual) % Eosinophils % (Manual) % Basophils % (Manual) % Myelocytes % (Man) % Neutrophils # (Manual) (1.4-6.5) K/uL Total Absolute Neuts (1.4-6.5) K/uL Lymphocytes # (Manual) (1.2-3.4) K/uL Total Abs Lymphocytes (1.2-3.4) K/uL Monocytes # (Manual) (0.11-0.59) K/uL Eosinophils # (Manual) (0-0.5) K/uL Basophils # (Manual) (0-0.2) K/uL Myelocytes # (Manual) (0-0) K/uL RBC Morphology ESR (0-14) mm/hr PT (9.0-12.0) Seconds INR (0.9-1.1) APTT (21.0-31.0) Seconds PTT Ratio VBG pH (7.36-7.41) VBG pCO2 (38-50) mmHg VBG pO2 mmHg VBG HCO3 mmol/L VBG O2 Saturation % VBG Base Excess mEq/L Barometric Pressure mm/Hg Sodium (136-145) mmol/L Potassium (3.5-5.1) mmol/L Chloride (98-107) mmol/L Carbon Dioxide (21-32) mmol/L Anion Gap (3-11) BUN (7-18) mg/dl Creatinine (0.6-1.4) mg/dl Est Cr Clr Drug Dosing ml/min Est GFR ( Amer) Est GFR (Non-Af Amer) BUN/Creatinine Ratio (10-20) Glucose (70-99) mg/dl Lactate 2.4 H* (0.4-2.0) mmol/L Calcium (8.5-10.1) mg/dl Magnesium (1.8-2.4) mg/dl Total Bilirubin (0.2-1) mg/dl AST (15-37) U/L ALT (12-78) U/L Alkaline Phosphatase (45-117) U/L Troponin I (0-0.045) ng/ml C-Reactive Protein (0-0.29) mg/dl NT-Pro-B Natriuret Pep (0-1800) pg/ml Total Protein (6.4-8.2) gm/dl Albumin (3.4-5.0) gm/dl Globulin (2.5-4.0) gm/dl Albumin/Globulin Ratio (0.9-2) Procalcitonin (0-0.5) ng/ml COVID-19 Eval Order COVID-19 PCR (Negative) Administered Medications Acetaminophen (Tylenol) 650 mg PO Q4H PRN PRN Reason: Pain or Fever Stop: 04/27/20 00:23 Last Admin: 03/28/20 12:48 Dose: 650 mg Documented by: [id number] Cyanocobalamin (Vitamin B-12) 500 mcg PO DAILY [facility] Stop: 04/27/20 08:59 Last Admin: 03/28/20 10:07 Dose: Not Given Documented by: [id number] Escitalopram Oxalate (Lexapro Tab) 10 mg PO QAM [facility] Stop: 04/27/20 08:59 Last Admin: 03/28/20 10:06 Dose: Not Given Documented by: [id number] Piperacillin Sod/Tazobactam (Sod 3.375 gm/ Dextrose) 115 mls @ 28.75 mls/hr IV Q8H [facility]; Protocol Stop: 04/04/20 01:59 Last Admin: 03/28/20 17:30 Dose: 28.8 mls/hr Documented by: [id number] Infusion: 03/28/20 14:46 Dose: 0 mls/hr Documented by: [id number] Admin: 03/28/20 10:38 Dose: 28.8 mls/hr Documented by: [id number] Infusion: 03/28/20 07:22 Dose: 0 mls/hr Documented by: [id number] Admin: 03/28/20 01:10 Dose: 28.8 mls/hr Documented by: [id number] Diltiazem HCl 125 mg/ Dextrose 125 mls @ 15 mls/hr IV .Q8H20M [facility]QUEL; Protocol Stop: 04/27/20 09:59 Last Titration: 03/28/20 12:15 Dose: 15 mg/hr, 15 mls/hr Documented by: [id number] Cosigned by: [id number] Titration: 03/28/20 11:15 Dose: 10 mg/hr, 10 mls/hr Documented by: [id number] Cosigned by: [id number] Admin: 03/28/20 10:17 Dose: 5 mg/hr, 5 mls/hr Documented by: [id number] Cosigned by: [id number] Methylprednisolone 60 mg/ (Syringe) 0.96 mls @ 1.5 mls/min IV Q8H [facility] Stop: 04/27/20 11:59 Last Admin: 03/28/20 12:10 Dose: 1.5 mls/min Documented by: [id number] Amiodarone HCl/Dextrose (Nexterone / D5w) 360 mg in 200 mls @ 33.333 mls/hr IV 1200 ONE Stop: 03/28/20 17:59 Last Admin: 03/28/20 12:09 Dose: 33.3 mls/hr Documented by: [id number] Cosigned by: [id number] Insulin Aspart (Novolog Flexpen) 0 units SC ACHS [facility] Stop: 04/27/20 07:29 Last Admin: 03/28/20 17:21 Dose: 9 units Documented by: [id number] Cosigned by: [id number] Admin: 03/28/20 12:54 Dose: 4 units Documented by: [id number] Cosigned by: [id number] Admin: 03/28/20 09:56 Dose: 3 units Documented by: [id number] Cosigned by: [id number] Insulin Glargine (Lantus Solostar Pen) 23 units SC BID MIQUEL Stop: 04/27/20 08:59 Last Admin: 03/28/20 09:58 Dose: 23 units Documented by: [id number] Cosigned by: [id number] Ipratropium [place] (Atrovent 0.02% 0.5mg/2.5ml) 0.5 mg NEB Q8R [facility] Stop: 04/27/20 14:59 Last Admin: 03/28/20 15:36 Dose: 0.5 mg Documented by: [id number] Admin: 03/28/20 11:49 Dose: 0.5 mg Documented by: [id number] Levothyroxine Sodium (Synthroid) 37.5 mcg PO Q2D [facility] Stop: 04/27/20 06:29 Last Admin: 03/28/20 07:22 Dose: Not Given Documented by: [id number] Magnesium Oxide (Mag-Ox) 400 mg PO BID [facility] Stop: 04/26/20 22:44 Last Admin: 03/28/20 10:06 Dose: Not Given Documented by: [id number] Admin: 03/27/20 22:59 Dose: Not Given Documented by: [id number] Pantoprazole Sodium (Protonix) 40 mg PO DAILY [facility] Stop: 04/27/20 08:59 Last Admin: 03/28/20 10:07 Dose: Not Given Documented by: [id number] Discontinued Medications Amiodarone HCl (Cordarone Iv Bolus & Drip) 1 ea IV NOW [facility]; Protocol Stop: 03/28/20 11:40 Last Admin: 03/28/20 12:44 Dose: Not Given Documented by: [id number] Digoxin (Lanoxin) 0.25 mcg IV NOW STA Stop: 03/27/20 22:43 Last Admin: 03/27/20 22:59 Dose: Not Given Documented by: [id number] Digoxin (Lanoxin) 250 mcg IV NOW STA Stop: 03/27/20 22:54 Last Admin: 03/27/20 22:54 Dose: 250 mcg Documented by: [id number] Diltiazem HCl (Cardizem) 15 mg IV NOW STA Stop: 03/28/20 09:39 Last Admin: 03/28/20 10:17 Dose: 15 mg Documented by: [id number] Cosigned by: [id number] Piperacillin Sod/Tazobactam Sod (Zosyn) 4.5 gm in 120 mls @ 240 mls/hr IV NOW ONE Stop: 03/27/20 21:17 Last Infusion: 03/27/20 21:25 Dose: 0 mls/hr Documented by: [id number] Admin: 03/27/20 20:54 Dose: 240 mls/hr Documented by: [id number] Sodium Chloride (Nss 1000ml) 1,000 mls @ 999 mls/hr IV .Q1H1M ONE Stop: 03/27/20 21:50 Last Infusion: 03/27/20 22:13 Dose: 0 mls/hr Documented by: [id number] Admin: 03/27/20 21:07 Dose: 999 mls/hr Documented by: [id number] Sodium Chloride (Nss 1000ml) 1,000 mls @ 999 mls/hr IV .Q1H1M ONE Stop: 03/27/20 22:23 Last Infusion: 03/27/20 23:14 Dose: 0 mls/hr Documented by: [id number] Admin: 03/27/20 22:12 Dose: 999 mls/hr Documented by: [id number] Albumin Human (Albumin 25%) 50 mls @ 50 mls/hr IV Q1H MIQUEL Stop: 03/28/20 00:44 Last Infusion: 03/28/20 00:46 Dose: 0 mls/hr Documented by: [id number] Admin: 03/27/20 23:28 Dose: 50 mls/hr Documented by: [id number] Infusion: 03/27/20 23:28 Dose: 50 mls/hr Documented by: [id number] Admin: 03/27/20 22:53 Dose: 50 mls/hr Documented by: [id number] Magnesium Sulfate/Dextrose (Magnesium Sulfate / D5w) 1 gm in 100 mls @ 100 mls/hr IV Q1H MIQUEL Stop: 03/28/20 00:38 Last Infusion: 03/28/20 00:46 Dose: 0 mls/hr Documented by: [id number] Admin: 03/27/20 23:47 Dose: 100 mls/hr Documented by: [id number] Infusion: 03/27/20 23:47 Dose: 100 mls/hr Documented by: [id number] Admin: 03/27/20 22:48 Dose: 100 mls/hr Documented by: [id number] Magnesium Sulfate/Dextrose (Magnesium Sulfate / D5w) 1 gm in 100 mls @ 50 mls/hr IV Q2H MIQUEL Stop: 03/28/20 02:39 Last Admin: 03/28/20 00:46 Dose: Not Given Documented by: [id number] Admin: 03/27/20 23:05 Dose: Not Given Documented by: [id number] Potassium Chloride/Sodium Chloride (Normal Saline W/20 Meq Kcl) 20 meq in 1,000 mls @ 80 mls/hr IV .[id number] MIQUEL Stop: 04/27/20 00:23 Last Infusion: 03/28/20 10:35 Dose: 0 mls/hr Documented by: [id number] Admin: 03/28/20 01:10 Dose: 80 mls/hr Documented by: [id number] Sodium Chloride (Nss 1000ml) 1,000 mls @ 80 mls/hr IV .[id number] MIQUEL Stop: 04/27/20 09:14 Last Infusion: 03/28/20 13:35 Dose: 0 mls/hr Documented by: [id number] Admin: 03/28/20 10:27 Dose: 80 mls/hr Documented by: [id number] Amiodarone HCl/Dextrose (Nexterone / D5w) 150 mg in 100 mls @ 600 mls/hr IV 1142 STA Stop: 03/28/20 11:51 Last Infusion: 03/28/20 12:31 Dose: 0 mls/hr Documented by: [id number] Cosigned by: [id number] Admin: 03/28/20 12:10 Dose: 600 mls/hr Documented by: [id number] Cosigned by: [id number] Ioversol (Optiray 320 125ml) 118 ml IV ONCE ONE Stop: 03/27/20 23:43 Last Admin: 03/27/20 23:42 Dose: 1 ml Documented by: [id number] Labetalol HCl (Normodyne) 10 mg IV NOW STA Stop: 03/27/20 22:15 Last Admin: 03/27/20 22:34 Dose: Not Given Documented by: [id number] Levalbuterol HCl (Xopenex 1.25mg/0.5ml Neb) 1.25 mg NEB NOW STA Stop: 03/27/20 22:26 Last Admin: 03/27/20 22:32 Dose: 1.25 mg Documented by: [id number] Metoprolol Tartrate (Lopressor) 2.5 mg IV NOW STA Stop: 03/28/20 01:22 Last Admin: 03/28/20 01:54 Dose: Not Given Documented by: [id number] Metoprolol Tartrate (Lopressor) Confirm Administered Dose 5 mg IV .STK-MED ONE Stop: 03/28/20 01:25 Last Increment: 03/28/20 01:26 Dose: 2.5 mg Documented by: [id number] Metoprolol Tartrate (Lopressor) 2.5 mg IV NOW STA Stop: 03/28/20 01:53 Last Admin: 03/28/20 01:55 Dose: 2.5 mg Documented by: [id number] Metoprolol Tartrate (Lopressor) 2.5 mg IV ONE ONE Stop: 03/28/20 02:53 Last Admin: 03/28/20 03:07 Dose: 2.5 mg Documented by: [id number] Metoprolol Tartrate (Lopressor) 2.5 mg IV NOW STA Stop: 03/28/20 07:28 Last Admin: 03/28/20 07:47 Dose: 2.5 mg Documented by: [id number] Prednisone (Prednisone) 10 mg PO DAILY MIQUEL Stop: 04/27/20 08:59 Last Admin: 03/28/20 10:06 Dose: Not Given Documented by: [id number] Imaging Data Attestation: I personally reviewed and interpreted this imaging study as follows : My Impression: 1 view chest x-ray was obtained in the emergency department. There was increased interstitial prominence on the right lung field. There was atelectasis at the left base. This was compared to a previous chest x-ray from January 202019. The interstitial prominence in the right lung field appears increased compared to previous chest x-ray. Prescription Drug Monitoring [place] Drug Monitoring Program reviewed and no issues identified Prescription Drug Findings: The patient does Blood Pressure Blood Pressure Findings: Normal blood pressure Discharge Plan Visit Data *Final* Discharge Date/Time: 03/28/20 00:11 Chief Complaint: Shortness of Breath/Dyspnea Stated Complaint: sob ED Provider: Mohit Charles Discharge Problem: Pneumonia, Atrial fibrillation with rapid ventricular response, Elevated troponin I level Patient Disposition: Admitted As Inpatient Condition: Good Discharge Instructions Interventions: ED Discharge Assessment Last Done: 03/28/20 00:11 Discharge Problem: Pneumonia Qualifiers: Pneumonia type: due to unspecified organism Laterality: right Lung location: lower lobe of lung Qualified Code(s): J18.9 - Pneumonia, unspecified organism
[2020-03-27 20:47] LABS: Hematocrit (blood only) 39.9 % (42-52); Hemoglobin 12.7 g/dL (14.0-18.0); Mean Corpuscular Hemoglobin 29.5 pg (25-34); Mean Corpuscular Hgb Conc 31.8 g/dL (32-36); Mean Corpuscular Volume 92.8 fL (80-100); Mean Platelet Volume 10.3 fL (7.4-10.4); Platelet Count 249 K/uL (130-400); RDW Coefficient of Variation 15.3 % (11.5-14.5); RDW Standard Deviation 51.7 fL (36.4-46.3); White Blood Count 17.54 K/uL (4.8-10.8)
[2020-03-27 20:48] LABS: Base Excess VBG -1.4 mEq/L; Oxygen Saturation VBG 87.8 %; pH VBG 7.45 (7.36-7.41)
[2020-03-27] MEDS ORDERED: PIPERACILL/TAZOBAC CONSULT ACTIVE PRN (20:48)
[2020-03-27] MEDS ORDERED: PIPERACILLIN/TAZOBACTAM 4.5 GM/120 ML BAG IV ONE (20:48)
[2020-03-27] MEDS ORDERED: SODIUM CHLORIDE 0.9% 1000ML 1,000 ML IV ONE ×2 (20:50→21:23)
[2020-03-27 21:01] LABS: INR 1.1 (0.9-1.1); Partial Thromboplastin Ratio 1.1; Partial Thromboplastin Time 29.4 Seconds (21.0-31.0); Prothrombin Time 11.6 Seconds (9.0-12.0)
--- NOTE | 2020-03-27 21:08 | History & Physical Report ---
Date of Service March 27, 2020 Assessment & Plan (1) SDAT (senile dementia of Alzheimer's type): Mr. Gibson is an 80yo M who presented to the ED for difficulty breathing and progressive shortness of breath. He was found to be in afib with RVR and borderline hypotension, but asymptomatic while in the ED. Leukocytosis ?CAP - Leukocytosis to 17.54 Lactate 3.4, repeat reflex pending Magnesium 1.7 - CXR rotated, hazy opacities in RML - CT with PE protocol pending - Procal 0.13 COVID negative - Received empiric zosyn - MRSA nare pending - Continue empiric Zosyn Afib w/ RVR - Continue rivaroxaban 20mg daily - Digoxin .25mcg IV x1 with slight improvement - Hypoalbumin, albumin x2 + NSS - Dilt deferred 2/2 concern of intravascular depletion and induction of hypotension - Will admit to telemetry. Pt tachy with borderline pressures but asymptomatic. If he becomes symptomatic or hypotensive may proceed with cardioversion. Pretreat with fentanyl 50mcg/versed 2mg and sync cardiovert at 120-200J if needed. - Cards consulted - Mg repleted - Optimize electrolytes - BMP daily Elevated troponin 0.199, suspect demand EKG afib RVR BNP elevated 4275 - TTE pending, last echo EF 60% - Trend q6h Chronic diastolic CHF (congestive heart failure): - Lasix 20mg daily held for ?volume depletion - Echo 11/2017: normal LV size, mi concentric LVH, Grade II diastolic dysfunction, normal RV size & function, LVEF 60-65%. Type 2 DM - Hold [employer]GRAM TRAIN[employer] glimepiride, glargine 45 sq daily, metformin - Glargine 23U BID, SSI GOAL 100-140, CF 20, Ratio 1:10 - BSG AC/HS - BMP daily Obstructive sleep apnea: - Continue CPAP Depression: - Continue [employer] Lexapro 10mg qAM Hypothyroidism - Synthroid 75mcg QoD GERD - Convert omeprazole to protonix 40mg PO daily HLD - Continue simvastatin 80mg daily HTN - Hypotensive at admit, held antihypertensives COPD (chronic obstructive pulmonary disease) with acute bronchitis: - Stable - Continue Fluticasone/Vilanterol inhaler Dispo: Med tele FENGI: NPO in case of cardioversion. Pt anticoagulated at baseline Code Status: Conditional, no intubation but OK with shock/meds/CPR (2) Poorly controlled diabetes mellitus: (3) Diabetes mellitus type 2 in nonobese: (4) Coronary arteriosclerosis: (5) Iron deficiency anemia: (6) Chronic diastolic CHF (congestive heart failure): (7) Mitral regurgitation: (8) Left ventricular outflow tract obstruction: (9) Chronic obstructive pulmonary disease: History of Present Illness Chief Complaint: Mr. Gibson is an 80yo M who presented to the ED for difficulty breathing and progressive shortness of breath. His shortness of breath developed and has been worsening for 2-3 days, and acutely worsened in the last 24 hours. His shortness of breath is worsened with exertion, slightly improved with rest. Denies chest pain/chest pressure. He has no leg swelling. No syncope/presyncope. On admission to the ED he was showing signs of respiratory distress and was found to be in Afib RVR with rate of ~165. He received CPAP and fluid boluses with mild improvement, but continued to be tachycardic. At time of assessment he is not symptomatic, reports he feels better than when he came in. Denies chest pain, chest pressure, and shortness of breath. He is not lightheaded or dizzy. He endorses intermittent dizziness/chest pain in the last week, but which is not associated with exercise and he is not sure of any exacerbating or remitting factors. Denies palpitations. Medical Hx: Reviewed Surgical Hx: Reviewed Medications: Reviewed, last took AM prior to admit Social: Denies tobacco, alcohol, and recreational drug use. Code Status: Conditional code, do not intubate Primary Care Provider: Artis Gunderson MD Allergies Allergy/AdvReac Type Severity Reaction Status Date / Time moxifloxacin Allergy Severe throat Verified 03/27/20 22:55 swelling ofloxacin Allergy Severe SWELLING Verified 03/27/20 22:55 AROUND FACE Quinolones Allergy Severe ANAPHYLAXIS Verified 03/27/20 22:55 formoterol Allergy Intermediate RASH Verified 03/27/20 22:56 Sulfa (Sulfonamide Allergy Intermediate severe red Verified 03/27/20 22:56 Antibiotics) rash Home Medications Home Medications Medication Instructions Recorded Confirmed Type metformin 1,000 mg tablet 1,000 mg PO BID #180 tab 02/24/19 03/27/20 Rx prednisone 10 mg PO DAILY #12 tab 04/05/19 03/27/20 Rx cyanocobalamin (vitamin B-12) 500 mcg PO DAILY 05/02/19 03/27/20 History [Vitamin B-12] magnesium oxide 500 mg tablet 500 mg PO BID tab 05/07/19 03/27/20 History escitalopram oxalate 10 mg tablet 10 mg PO QAM #90 tab 11/18/19 03/27/20 Rx rivaroxaban 20 mg tablet 20 mg PO QPM #90 tab 11/20/19 03/27/20 Rx albuterol sulfate 2.5 mg INH Q4H PRN #360 ml 11/25/19 03/27/20 Rx albuterol sulfate 90 mcg/actuation 2 puffs INH Q4H PRN #8.5 gm 02/11/20 03/27/20 Rx aerosol inhaler glimepiride 2 mg tablet 2 mg PO DAILY #90 tab 02/11/20 03/27/20 Rx glucosamine-chondroitin 250 mg-200 1 tab PO BID 02/11/20 03/27/20 History mg tablet omeprazole 40 mg capsule,delayed 40 mg PO DAILY #90 cap 02/11/20 03/27/20 Rx release insulin glargine 100 unit/mL (3 45 units SC DAILY #15 ml 02/13/20 03/27/20 Rx mL) subcutaneous pen furosemide 20 mg tablet 20 mg PO BID #180 tab 02/23/20 03/27/20 Rx simvastatin 80 mg tablet 40 mg PO HS #90 tab 03/03/20 03/27/20 Rx levothyroxine 37.5 mcg PO Q2D 03/27/20 03/27/20 History levothyroxine 75 mcg PO Q2D 03/27/20 03/27/20 History multivitamin with minerals 1 tab PO DAILY 03/27/20 03/27/20 History [Multiple Vitamin-Minerals] Past Med/Surg History Medical History Anxiety Atrial flutter (Acute) on xarelto Chronic diastolic CHF (congestive heart failure) (Acute) Chronic steroid use Depression (Chronic) GERD (gastroesophageal reflux disease) (Chronic) Heart disease (Acute) IRREGULAR RHYTHYM HLD (hyperlipidemia) HTN (hypertension) (Acute) Hypothyroidism Iron deficiency anemia (Acute) Kidney stones (Acute) 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 (Acute) Mild HOCM (hypertrophic obstructive cardiomyopathy) Nephrolithiasis (Acute) Obstructive sleep apnea (Acute) On anticoagulant therapy xarelto daily On home oxygen therapy 2L N/C at hs Organic impotence (Acute) Pericardial effusion (Acute) Pleural effusion (Acute) HX OF Prostate cancer (Acute) Steroid-induced osteopenia (Acute) Surgical History H/O cystoscopy (Acute) "History of Cystoscopy With Insertion Of Ureteral Stent" on CCD H/O tooth extraction (Acute) History of bronchoscopy History of cardiac radiofrequency ablation History of prostatectomy (Acute) History of repair of right rotator cuff Hx of colonoscopy Hx of esophagogastroduodenoscopy Family History Sister Ovarian cancer Mother Skin cancer Myocardial infarction Grandfather Myocardial infarction Other No family history of adverse response to anesthesia Stroke Denies family history of Prostate cancer Breast cancer Colorectal cancer Social History Smoking Status: Former smoker Second Hand Exposure: No; Hx Alcohol Use: No Hx Substance Use: No Preferred Language: [place] Communication Ability: Effective Visual Impairment: No Limitations Hearing Ability: Use of Hearing Aid Process Stripper Required: No Beliefs That Will Affect Care: None marital status: Current Living Situation: Spouse current occupational status: retired Feels Safe at Home: Yes Safety Concerns: Feels Safe At This Time Childhood Exposure to Second-Hand Smoke: No caffeine: Yes during the past year weight has: remained stable Dental Care, Regularly: No Physical Activity Frequency: Does not Exercise Seatbelt Use: always Sunscreen Use: No Review of Systems Review of Systems: Constitutional: Denies fever, chills Eyes: Denies vision change ENT: Denies congestion/cold like sx Cardiovascular: See HPI Respiratory: See HPI Gastrointestinal: Denies abdominal pain, nausea, vomiting. Endorses abd distension Genitourinary: Denies pain with urination Musculoskeletal: Endorses fatigue and falls, denies focal weakness. Endorses glboal weakness. Denies myalgias/arthralgias at time of assessment. Integumentary:Denies rash, lesions, bruising Neurological: Denies headache, numbness, tingling, focal weakness, syncope, presycnope Physical Exam Physical Exam: General: A&O to name and place. NAD. Cooperative. HEENT: Atraumatic, normocephalic. Pulm: CTAB A&P. -wheezes, -rales, -rhonchi. Symmetrical chest rise. No increase work of breathing. No respiratory distress. Cardiac: tachycardic, irregular. Radial pulses intact and symmetrical. Abdominal: Distended, with typani to percussion. NT. Extremities: Warm, pedal edema bilaterally. Pt pulses intact. Sensation to soft touch intact in hallux bilaterally. Results & Data Results & Data ([facility]) Vital Signs (Past 12 Hours) Vital Signs Pulse Resp BP Pulse Ox 03/27/20 20:54 164 H 22 98 03/27/20 20:22 175 H 16 129/76 98 Critical Care Time Critical Care Time: Yes Total Critical Care Time: 45 Supervising Physician Co-Signing Physician Notes Attending addendum: I have physically seen this patient, have supervised the medical residents activities, and agree with the H&P unless as otherwise noted. Assessment and Plan: Atrial fibrillation with RVR/elevated troponin/chronic diastolic CHF- Continue Xarelto 20 mg p.o. daily.' Troponin elevated at 0.199, presumed secondary to increased heart rate. Patient had persistently elevated heart rate while in the ED in the 140-160 range and systolic blood pressure remained in the mid 90s to low 100s. Patient was given digoxin 0.25 mg IV x1. Albumin 25 g IV x2 Received 2 L of normal saline. Given mag sulfate 2 g IV. Heart rate did begin to decrease to the 120s, and systolic blood pressure did slowly increase to the high 100s to low 110s. Patient will be admitted to the telemetry unit, and as blood pressure continues to improve, will give doses of IV Lopressor to improve rate control. The patient will be admitted to telemetry for serial cardiac enzymes, serial EKG's, cardiac rhythm monitoring and a 2-D echocardiogram with Dopplers. Consult cardiology Diabetes mellitus- Hold glimepiride and metformin. Adjust glargine as noted. Placed on Accu-Cheks before meals and at bedtime with NovoLog coverage per scale. Obstructive sleep apnea- Continue CPAP at at bedtime GERD- Hold omeprazole. And place on Protonix 40 mg p.o. daily. Remaining orders and notations as noted. Total critical care time while patient was in the emergency department was 45 mi juan j Resident Activity Tracking Resident Involvement: Resident Care Provided Care Provided: [facility]
[2020-03-27 21:14] LABS: BUN Creatinine Ratio 16.5 (10-20); C Reactive Protein 2.96 mg/dl (0-0.29); Calcium 8.8 mg/dl (8.5-10.1); Creatinine Clr Calc Pharmacy 46.9 ml/min; Est GFR (Non-African American) 44.9; Magnesium 1.7 mg/dl (1.8-2.4); Potassium 4.1 mmol/L (3.5-5.1)
[2020-03-27 21:22] LABS: Albumin Globulin Ratio 0.9 (0.9-2); Bilirubin,Total 0.5 mg/dl (0.2-1); Globulin 3.5 gm/dl (2.5-4.0); Total Protein 6.5 gm/dl (6.4-8.2); Troponin I 0.199 ng/ml (0-0.045)
[2020-03-27 22:04] LABS: ALC (manual) 5.95 K/uL (1.2-3.4); ANC (manual) 10.51 K/uL (1.4-6.5); Basophils # (manual) 0.16 K/uL (0-0.2); Basophils % (manual) 0.9 %; Eosinophils # (manual) 0.16 K/uL (0-0.5); Eosinophils % (manual) 0.9 %; Lymphocytes # (manual) 5.95 K/uL (1.2-3.4); Lymphocytes % (manual) 33.9 %; Monocytes # (manual) 0.61 K/uL (0.11-0.59); Monocytes % (manual) 3.5 %; Myelocytes # (manual) 0.16 K/uL (0-0); Myelocytes % (manual) 0.9 %; Neutrophils # (manual) 10.51 K/uL (1.4-6.5); Neutrophils % (manual) 59.9 %; RBC Morphology Unremarkable
[2020-03-27] MEDS ORDERED: LABETALOL HCL IV 5 MG/ML 20ML IV STA (22:14)
[2020-03-27] MEDS ORDERED: LEVALBUTEROL 1.25MG/0.5ML NEB NEB STA (22:25)
[2020-03-27] MEDS: DIGOXIN 500 MCG/2 ML AMP IV STA ×2 (22:48→22:59)
[2020-03-27] MEDS: MAGNESIUM SULFATE / D5W 1 GM/100 ML BAG IV SCH ×3 (22:48→23:47)
[2020-03-27] MEDS: ALBUMIN 25% 50 ML IV SCH ×2 (22:53→23:28)
[2020-03-27] MEDS ORDERED: DIGOXIN 500 MCG/2 ML AMP IV STA (22:53)
[2020-03-27] MEDS: MAGNESIUM OXIDE 400 MG TAB PO SCH (22:59)
[2020-03-27] MEDS ORDERED: OPTIRAY 320 125ml IV ONE (23:42)
[2020-03-28] MEDS ORDERED: CARBOHYDRATES FOR HYPOGLYCEMIA PO PRN (00:24)
[2020-03-28] MEDS ORDERED: GLUCOSE 40% GEL 15 GM TUBE PO PRN (00:24)
[2020-03-28] MEDS ORDERED: NSS + 20MEQ KCL 20 MEQ/1,000 ML BAG IV SCH (00:24)
[2020-03-28] MEDS ORDERED: ACETAMINOPHEN 325 MG TAB PO PRN (00:24)
[2020-03-28] MEDS ORDERED: GLUCAGON FOR INJ 1 MG VIAL SQ PRN (00:24)
[2020-03-28] MEDS ORDERED: DEXTROSE 50% 50 ML SYRINGE IV PRN (00:24)
[2020-03-28] MEDS ORDERED: GLUCOSE 10 TABS/TUBE PO PRN (00:24)
[2020-03-28] MEDS ORDERED: POLYETHYLENE (MIRALAX) 17 GM PACK PO PRN (00:24)
[2020-03-28] MEDS: MAGNESIUM SULFATE / D5W 1 GM/100 ML BAG IV SCH (00:46)
[2020-03-28] MEDS: PIPERACILLIN/TAZOBACTAM 3.375 GM in DEXTROSE 5% 100 ML IV SCH ×3 (01:10→17:30)
[2020-03-28] MEDS ORDERED: METOPROLOL TARTRATE 1 MG/ML VIAL IV STA ×3 (01:21→07:27)
[2020-03-28] MEDS ORDERED: METOPROLOL TARTRATE 1 MG/ML VIAL IV ONE ×2 (01:24→02:52)
[2020-03-28 02:23] LABS: Basophils # (auto) 0.02 K/uL (0-0.2); Basophils % (auto) 0.2 %; Eosinophils # (auto) 0.01 K/uL (0-0.5); Eosinophils % (auto) 0.1 %; Hematocrit (blood only) 36.1 % (42-52); Hemoglobin 11.5 g/dL (14.0-18.0); Immature Granulocytes # (auto) 0.25 K/uL (0.00-0.02); Immature Granulocytes % (auto) 1.9 %; Lymphocytes # (auto) 4.25 K/uL (1.2-3.4); Mean Corpuscular Hemoglobin 29.2 pg (25-34); Mean Corpuscular Hgb Conc 31.9 g/dL (32-36); Mean Corpuscular Volume 91.6 fL (80-100); Mean Platelet Volume 10.4 fL (7.4-10.4); Monocytes # (auto) 1.05 K/uL (0.11-0.59); Monocytes % (auto) 7.9 %; Neutrophils # (auto) 7.69 K/uL (1.4-6.5); Neutrophils % (auto) 57.9 %; Platelet Count 199 K/uL (130-400); RDW Coefficient of Variation 15.3 % (11.5-14.5); RDW Standard Deviation 51.6 fL (36.4-46.3); Red Blood Count 3.94 M/uL (4.7-6.1); White Blood Count 13.27 K/uL (4.8-10.8)
[2020-03-28 02:46] LABS: BUN Creatinine Ratio 18.3 (10-20); Calcium 7.7 mg/dl (8.5-10.1); Creatinine Clr Calc Pharmacy 48.8 ml/min; Est GFR (Non-African American) 51.8; Potassium 4.8 mmol/L (3.5-5.1)
--- NOTE | 2020-03-28 06:08 | XRay Report ---
XR chest 1V portable CLINICAL HISTORY: SEPSIS dyspnea COMPARISON STUDY: 01/21/2020 FINDINGS: Moderate stable cardiomegaly. Interval interstitial infiltrates the right upper as well as left lung base. Trace pleural reactive change right base. IMPRESSION: Bilateral parenchymal infiltrates. Stable cardiomegaly. ACT 112: Negative or not required by law. The above report was generated using voice recognition software. It may contain grammatical, syntax or spelling errors. Electronically signed by: Trae Lucas M.D. 03/28/2020 6:07 AM
--- NOTE | 2020-03-28 07:00 | CT Scan Report ---
CT angio chest PE protocol CT DOSE: 740.11 mGy.cm HISTORY: Dyspnea PE TECHNIQUE: Multiaxial CT images of the chest were performed following the intravenous administration of contrast to evaluate the pulmonary arteries. Maximal intensity projection images were also obtaine d. A dose lowering technique was utilized adhering to the principles of ALARA. COMPARISON STUDY: 09/30/2018 FINDINGS: Moderate atherosclerotic changes thoracic aorta. Pulmonary vasculature enhances appropriately. No significant filling defects. Small bilateral pleural effusions. Infiltrative change right lower lobe as well as right pulmonary ap ex. Small amount of debris within the thoracic esophagus. Several reactive mediastinal and/or subcarinal nodes. IMPRESSION: 1. No evidence for pulmonary embolus. 2. Small bilateral pleural effusions. 3. Multifocal right hemithoracic infiltrative change. ACT 112: Negative or not required by law. The above report was generated using voice recognition software. It may contain grammatical, syntax or spelling errors. Electronically signed by: Trae Lucas M.D. 03/28/2020 6:59 AM
[2020-03-28] MEDS: LEVOTHYROXINE SODIUM 25 MCG TABLET PO SCH (07:22)
--- NOTE | 2020-03-28 08:40 | Hospitalist Progress Note ---
Date of Service March 28, 2020 Assessment & Plan (1) SDAT (senile dementia of Alzheimer's type): Mr. Gibson is a 80 yo male with h/o atrial fibrillation, congestive heart failure, diabetes, who was admitted on 03/27/2020 for pneumonia and a-fib with RVR. He was started on IV Zosyn for PNA and started on Diltiazem with continued Xarelto for a-fib w/ RVR. Community-Acquired Pneumonia - Leukocytosis to 17.54 Lactate 3.4 --> 2.4 - CXR rotated, hazy opacities in RML - CT-PE negative for PE -MRSA nare negative - scaterred rhonchi on exam likely due to acute mucus plugging after starting abx - Continue Zosyn and follow Blood Cx - Aspiration precautions: minced/moist diet per ST recommendations Afib w/ RVR - likely to initially be physiologic tachycardia in response to acute illness that converted to Afib w RVR - Continue rivaroxaban 20mg daily - Continues to be tachycardic with increased work of breathing despite max dose of Diltiazem, per Cardiology recommendations - Continue Diltiazem gtt - Add Amiodarone gtt to assist with rate control and respiratory status - Optimize electrolytes - BMP daily COPD exacerbation on Chronic COPD - increased bilateral expiratory wheezes and work of breathing since admission likely secondary to acute respiratory infection - Methylprednisolone 60 mg IV Q8H - Ipratropium nebs Q8H - unable to have duo nebs at this time due to tachycardia - VBG ordered - Hold home inhaler and prednisone for now Urinary Retention - 2 x straight cath with residual abdominal distention - possible BPH - aldana placed today Elevated troponin, resolving 0.199 --> .127, suspect secondary to demand ischemia EKG afib RVR Chronic diastolic CHF (congestive heart failure): - Lasix 20mg daily held for volume depletion BNP elevated 4275 but no JVD, bilateral crackles, LE edema on exam - CXR/Chest CT more consistent with PNA - Echo 11/2017: normal LV size, mi concentric LVH, Grade II diastolic dysfunction, normal RV size & function, LVEF 60-65%. - Continue to monitor respiratory status and serial physical exams for signs of CHF exacerbation Type 2 DM - Hold [employer] glimepiride, glargine 45 sq daily, metformin - Glargine 23U BID, SSI GOAL 100-140, CF 20, Ratio 1:10 - BSG AC/HS - BMP daily as stated above Obstructive sleep apnea: - Continue CPAP Depression: - Continue Lexapro 10mg qAM Hypothyroidism - Continue Synthroid 75mcg QoD GERD - Convert home omeprazole to Protonix 40mg PO daily HLD - Continue simvastatin 80mg daily HTN - Hypotensive at admit, held antihypertensives FENGI: Diabetic/Heart Healthy, minced/moist per aspiration precautions DVT ppx: home dose Xarelto 20 mg daily Code Status: DNI, but OK with shock/meds/CPR Dispo: Med tele (2) Poorly controlled diabetes mellitus: (3) Diabetes mellitus type 2 in nonobese: (4) Coronary arteriosclerosis: (5) Iron deficiency anemia: (6) Chronic diastolic CHF (congestive heart failure): (7) Mitral regurgitation: (8) Left ventricular outflow tract obstruction: (9) Chronic obstructive pulmonary disease: Admission and Anticipated Discharge Date Admission Date: March 27, 2020 Supervising Physician Co-Signing Physician Notes I personally examined the patient and verified all pleitez points of history and exam, discussed case, and agree with decision making with Dr Ceja. initially seen - feeling more sob. after nebs/steroids, better rate control - revisited - tired, but less sob again vitals noted laying in bed quite fatigued appearing heent nc at mmm lungs scattered rhonchi (mucous sounding) no real symmetry to it even though findings were in both lungs - not symmetrically so. more quiet/limitd air entry base L. reasonably good air entry everywhere else acute hypoxic respiratory failure present on admission - related to severe CAP and subsequent fallout - considered streamlining abx coverage down from zosyn - but with tenuous course through the day, appears to fit more in the risk category where benefit would be had from this level of coverage. MRSA nares negative - no need for MRSA coverage. speech due to concern of aspiration pneumonia instead of severe CAP (and zosyn would cover this well too). concern on worsening also related to COPD exac (see below) vs diastolic CHF (fortunately seems to not be the case, despite his rather rapid rates) afib/RVR - exam not c/w pulmonary edema. RVR likely started as compensatory tachy related to pneumonia/hypoxia that then worsened. rates were not close to controlled on dilt gtt even at 15/hr --> added amio (more to augment rate control than really trying for rhythm, although already anticoagulated so safe if this were to occur) COPD - worsening dyspnea w lung findings seemed most c/w COPD exac/mucous plugging in the face of the severe CAP. nebs, steroids, supportive care elevated troponin - demand ischemia from all of above. fortunately suprisingly mild given the overall situation Subjective Mr. Gibson is a 80 yo male with h/o atrial fibrillation, congestive heart fail ure, diabetes, who was admitted on 03/27/2020 for pneumonia and a-fib with RVR. He was started on IV Zosyn for PNA and started on Diltiazem with continued Xarelto for a-fib w/ RVR. No acute events overnight. Has continued to be tachycardic from 110s-140s and is now running more normo-hypertensive. Had suprapubic fullness/pain --> bladder scan with straight cath x1 - 600cc UOP. Aspirated some of his breakfast per nursing. This morning the patient reported shortness of breath but denied fever/chills, chest pain, palpitations, abdominal pain/fullness. Review of Systems Constitutional: as per Subjective / HPI Respiratory: as per Subjective / HPI; no cough Cardiovascular: as per Subjective / HPI Gastrointestinal: as per Subjective / HPI Genitourinary: + as per Subjective / HPI and + difficulty urinating Physical Exam Constitutional: + ill appearing fatigued, mild distress Eyes: PERRL, conjunctivae normal, anicteric sclerae Neck: trachea midline, no thyromegaly normal visual inspection Respiratory: expiratory wheezes bilaterally, scattered rhonchi bilaterally, crackles in middle/base right lung Cardiovascular: Vessels: no JVD irregularly irregular rhythm, tachycardic, no murmurs Gastrointestinal (Abdomen): Inspection/Auscultation: + abdomen distended and normal bowel sounds (x4) Percussion/Palpation: abdomen nontender and no abdominal mass Skin: no rashes, warm and dry Psychiatric: A+Ox3, euthymic affect Lymphatic: no cervical lymphadenopathy Results & Data Results & Data ([facility]) Vital Signs (Past 12 Hours) Vital Signs Temp Pulse Pulse Resp BP BP Pulse Ox 03/28/20 08:01 37.3 C 110 H 22 150/103 H 96 03/28/20 08:00 165 H 03/28/20 07:47 165 H 150/103 H 03/28/20 03:25 36.6 C 103 H 18 103/67 95 03/28/20 03:07 132 H 111/77 03/28/20 01:55 125 H 119/92 03/28/20 01:26 134 H 116/74 03/28/20 00:35 36.8 C 132 H 24 146/80 H 94 03/28/20 00:11 37.1 C 143 H 24 137/86 95 03/28/20 00:00 134 H 21 145/108 H 96 03/27/20 23:46 148 H 24 121/95 93 03/27/20 23:31 160 H 22 104/76 96 03/27/20 23:30 138 H 20 95 03/27/20 23:15 147 H 20 95/71 L 96 03/27/20 23:01 167 H 24 107/85 95 03/27/20 22:51 164 H 97 03/27/20 22:45 163 H 128/76 96 03/27/20 22:40 155 H 99 03/27/20 22:35 156 H 20 95 03/27/20 22:30 146 H 117/67 96 03/27/20 22:23 142 H 110/47 L 96 03/27/20 22:21 150 H 95 03/27/20 22:20 147 H 96 03/27/20 22:15 156 H 94 03/27/20 22:10 167 H 91 03/27/20 22:01 157 H 117/90 96 03/27/20 22:00 153 H 97 03/27/20 21:50 166 H 96 03/27/20 21:45 145 H 136/76 95 03/27/20 21:41 145 H 95 03/27/20 21:30 170 H 106/77 95 03/27/20 21:20 170 H 95 03/27/20 21:15 166 H 114/88 95 03/27/20 21:11 154 H 95 03/27/20 21:08 160 H 16 95 03/27/20 21:01 166 H 114/86 94 03/27/20 21:00 169 H 95 03/27/20 20:54 174 H 22 93/74 L 93 03/27/20 20:50 155 H 95 03/27/20 20:41 183 H CBC w Diff Results Results CBC w Diff: RBC 3.94 M/uL (4.7-6.1) L 03/28/20 WBC 13.27 K/uL (4.8-10.8) H 03/28/20 Hgb 11.5 g/dL (14.0-18.0) L 03/28/20 Hct 36.1 % (42-52) L 03/28/20 MCV 91.6 fL (80-100) 03/28/20 MCH 29.2 pg (25-34) 03/28/20 MCHC 31.9 g/dL (32-36) L 03/28/20 RDW Standard Deviation 51.6 fL (36.4-46.3) H 03/28/20 RDW Coefficient of Variation 15.3 % (11.5-14.5) H 03/28/20 Plt Count 199 K/uL (130-400) 03/28/20 MPV 10.4 fL (7.4-10.4) 03/28/20 Nucleated Red Blood Cells % (auto) 0.5 % 04/05/19 Nucleated RBC Absolute Count (auto) 0.06 K/uL (0-0) H 04/05/19 Neutrophils (%) (Auto) 57.9 % 03/28/20 Lymphocytes (%) (Auto) 32.0 % 03/28/20 Monocytes # (Auto) 1.05 K/uL (0.11-0.59) H 03/28/20 Eosinophils # (Auto) 0.01 K/uL (0-0.5) 03/28/20 Immature Granulocyte % (Auto) 1.9 % 03/28/20 Neutrophils # (Auto) 7.69 K/uL (1.4-6.5) H 03/28/20 Lymphocytes # (Auto) 4.25 K/uL (1.2-3.4) H 03/28/20 Monocytes # (Auto) 1.05 K/uL (0.11-0.59) H 03/28/20 Eosinophils # (Auto) 0.01 K/uL (0-0.5) 03/28/20 Basophils # (Auto) 0.02 K/uL (0-0.2) 03/28/20 Immature Granulocyte # (Auto) 0.25 K/uL (0.00-0.02) H 03/28/20 ANC 10.51 K/uL (1.4-6.5) H 03/27/20 ALC 5.95 K/uL (1.2-3.4) H 03/27/20 Neutrophils % (Manual) 59.9 % 03/27/20 Band Neutrophils % Cancelled 08/03/18 Lymphocytes % (Manual) 33.9 % 03/27/20 Reactive Lymphocytes % (Manual) Cancelled 08/03/18 Large Granular Lymphocytes Cancelled 08/03/18 Monocytes % (Manual) 3.5 % 03/27/20 Eosinophils % (Manual) 0.9 % 03/27/20 Basophils % (Manual) 0.9 % 03/27/20 Metamyelocytes % (manual) Cancelled 08/03/18 Myelocytes % (Manual) 0.9 % 03/27/20 Promyelocytes % (Manual) Cancelled 08/03/18 Blast Cells % (Manual) Cancelled 08/03/18 Prolymphocyte % Cancelled 08/03/18 Plasma Cells % (manual) Cancelled 08/03/18 Nucleated Red Blood Cells % Cancelled 08/03/18 Other Cells % Cancelled 08/03/18 Neutrophils # (Manual) 10.51 K/uL (1.4-6.5) H 03/27/20 Band Neutrophils # Cancelled 08/03/18 Lymphocytes # (Manual) 5.95 K/uL (1.2-3.4) H 03/27/20 Reactive Lymphocytes # Cancelled 08/03/18 Absolute Large Granular Lymphocytes Cancelled 08/03/18 Monocytes # (Manual) 0.61 K/uL (0.11-0.59) H 03/27/20 Eosinophils # (Manual) 0.16 K/uL (0-0.5) 03/27/20 Basophils # (Manual) 0.16 K/uL (0-0.2) 03/27/20 Metamyelocytes # (Manual) Cancelled 08/03/18 Myelocytes # (Manual) 0.16 K/uL (0-0) H 03/27/20 Promyelocytes # (Manual) Cancelled 08/03/18 Blast Cells # (Manual) Cancelled 08/03/18 Prolymphocyte # Cancelled 08/03/18 Plasma Cells # (manual) Cancelled 08/03/18 Other Cells # Cancelled 08/03/18 Nucleated RBC Absolute Count (manu) Cancelled 08/03/18 Hyposegmented Neutrophils Cancelled 08/03/18 Hypogranular Neutrophils Cancelled 08/03/18 Hypersegmented Neutrophils Cancelled 08/03/18 Smudge Cells Cancelled 08/03/18 Hypogranular Platelets Cancelled 08/03/18 Giant Platelets Cancelled 08/03/18 Platelet Satelliting Cancelled 08/03/18 Clumped Platelets Cancelled 08/03/18 Red Blood Cell Morphology Unremarkable 03/27/20 Polychromasia Cancelled 08/03/18 Hypochromasia Cancelled 08/03/18 Poikilocytosis Cancelled 08/03/18 Basophilic Stippling Cancelled 08/03/18 Echinocytes 1+ 04/03/19 Anisocytosis Cancelled 08/03/18 Microcytosis Cancelled 08/03/18 Macrocytosis Cancelled 08/03/18 Spherocytes Cancelled 08/03/18 Pappenheimer Bodies Cancelled 08/03/18 Sickle Cells Cancelled 08/03/18 Target Cells Cancelled 08/03/18 Tear Drop Cells Cancelled 08/03/18 Ovalocytes Cancelled 08/03/18 Stomatocytes Cancelled 08/03/18 [employer] Bodies Cancelled 08/03/18 Toxic Granulation Cancelled 08/03/18 Toxic Vacuolation Cancelled 08/03/18 Dohle Bodies Cancelled 08/03/18 Acanthocytes Cancelled 08/03/18 Eddie Rods Cancelled 08/03/18 Rouleau Cancelled 08/03/18 Schistocytes Cancelled 08/03/18 Sezary Cell Cancelled 08/03/18 Hairy Cells Cancelled 08/03/18 RBC Agglutinates Cancelled 08/03/18 Red Cell Morphology Comment Cancelled 08/03/18 Chemistry (BMP) Results BMP Results: Sodium 140 mmol/L (136-145) 03/28/20 Potassium 4.8 mmol/L (3.5-5.1) 03/28/20 Chloride 113 mmol/L (98-107) H 03/28/20 BUN 23 mg/dl (7-18) H 03/28/20 Creatinine 1.28 mg/dl (0.6-1.4) 03/28/20 Glucose 279 mg/dl (70-99) H 03/28/20 LFT Results Results Liver Function Test Results: ALT 28 U/L (12-78) 03/27/20 AST 16 U/L (15-37) 03/27/20 Alkaline Phosphatase 60 U/L (45-117) 03/27/20 Total Protein 6.5 gm/dl (6.4-8.2) 03/27/20 Albumin 3.0 gm/dl (3.4-5.0) L 03/27/20 Total Bilirubin 0.5 mg/dl (0.2-1) 03/27/20 Coag Studies Results Coagulation Results: PT 11.6 Seconds (9.0-12.0) 03/27/20 PTT 29.4 Seconds (21.0-31.0) 03/27/20 INR 1.1 (0.9-1.1) 03/27/20 Resident Activity Tracking Resident Involvement: Resident Care Provided Care Provided: Adult Hospital Medicine
[2020-03-28] MEDS ORDERED: predniSONE 10 MG TABLET PO SCH (09:00)
[2020-03-28] MEDS ORDERED: SODIUM CHLORIDE 0.9% 1000ML 1,000 ML IV SCH (09:15)
[2020-03-28] MEDS ORDERED: Nursing to Pharmacy Communication SCH (09:15)
--- NOTE | 2020-03-28 09:20 | Cardiology Consultation ---
Date of Consultation March 28, 2020 Assessment & Plan (1) Atrial fibrillation with rapid ventricular response: patient has a history of atrial flutter for which he underwent catheter based therapy in 2019. Current rhythm appears more consistent with an atrial fibrillation. Patients with atrial flutter known to have a significant incidence of atrial fibrillation given his comorbidities with moderate LVH in the severely dilated left atrium he is certainly at risk for atrial fibrillation . Fortunately, he has been on systemic anticoagulation. some of his symptoms of dyspnea leading up to admission could have been related to atrial fibrillation. the relationship between his pulmonary process and atrial fibrillation is unclear. Also, the chronicity of his atrial fibrillation is unclear. I think the immediate issue is rate control. There was some hesitation to use diltiazem or larger doses of metoprolol in the emergency room over concerns of hypotension. However, his hemodynamics would likely improve with better rate control. His pressure seems quite good currently and I would advocate initiation of diltiazem infusion. In the setting of known diastolic heart failure and LVH reduced ventricular rates will improve hemodynamics and help to avoid any additional pulmonary vascular congestion. He does have an element of conduction disease at baseline manifest both by a known first-degree AV block, left anterior fascicular block and generally right bundle branch block. We will need to monitor his heart rate and conduction closely with AV maría blocking agents. He should continue systemic anticoagulation in the absence of any new contraindication. He does have a history of iron deficiency anemia, but current hemoglobin level appears adequate and he is not known to have active bleeding From any defined source. (2) Elevated troponin I level: he has mildly elevated biomarkers in the setting of rapid ventricular rates. He is felt to have coronary disease involving the PDA based on abnormal perfusion imaging in May of last year. He is not endorsing symptoms of chest discomfort and I do not believe he suffers from an acute coronary syndrome. In this setting, improvement of his ventricular rate, maintaining good oxygenation and normal blood pressures will help reduce any additional ischemia from presumed supply demand mismatch. History of Present Illness Reason for Consultation: Atrial fibrillation Requesting Physician: Pratik Attending Physician: Mathew Jaramillo DO History of Present Illness patient is an 80-year-old gentleman with a complex medical history to include diastolic heart failure, atrial flutter, COPD, dynamic LV outflow obstruction, hyperlipidemia and diabetes who was brought to the hospital for symptoms of worsening dyspnea. The patient was able to provide some limited history but appears to be a poor historian. He felt that the indication for hospitalization was dizziness. He states that he has an element of chronic dizziness and did report episodes of syncope recently. He could not recall any specific details surrounding these events. also reports episodes of falling, but again could not provide specific details. He did endorse symptoms of breathing difficulty that he feels have been present for approximately 1 week. He did not endorse any symptoms of fevers or chills. He did report coughing. He did not report any difficulty with eating or choking. He did not report symptoms of chest discomfort other than a very fleeting sensation earlier this morning. He has not been aware of any rapid heartbeats or palpitations. He did not report wheezing at home. He has not reported fluid retention or edema. He lives with his . He seems to be very sedentary. He continued to report feeling "puny". However he could not characterize this further. At the time of presentation the patient was noted to have abnormalities on x- ray and CT scan consistent with a primary pulmonary process. Additionally he was in atrial fibrillation with rapid ventricular rate. Allergies Allergy/AdvReac Type Severity Reaction Status Date / Time moxifloxacin Allergy Severe throat Verified 03/27/20 22:55 swelling ofloxacin Allergy Severe SWELLING Verified 03/27/20 22:55 AROUND FACE Quinolones Allergy Severe ANAPHYLAXIS Verified 03/27/20 22:55 formoterol Allergy Intermediate RASH Verified 03/27/20 22:56 Sulfa (Sulfonamide Allergy Intermediate severe red Verified 03/27/20 22:56 Antibiotics) rash Home Medications Home Medications Medication Instructions Recorded Confirmed Type metformin 1,000 mg tablet 1,000 mg PO BID #180 tab 02/24/19 03/27/20 Rx prednisone 10 mg PO DAILY #12 tab 04/05/19 03/27/20 Rx cyanocobalamin (vitamin B-12) 500 mcg PO DAILY 05/02/19 03/27/20 History [Vitamin B-12] magnesium oxide 500 mg tablet 500 mg PO BID tab 05/07/19 03/27/20 History escitalopram oxalate 10 mg tablet 10 mg PO QAM #90 tab 11/18/19 03/27/20 Rx rivaroxaban 20 mg tablet 20 mg PO QPM #90 tab 11/20/19 03/27/20 Rx albuterol sulfate 2.5 mg INH Q4H PRN #360 ml 11/25/19 03/27/20 Rx albuterol sulfate 90 mcg/actuation 2 puffs INH Q4H PRN #8.5 gm 02/11/20 03/27/20 Rx aerosol inhaler glimepiride 2 mg tablet 2 mg PO DAILY #90 tab 02/11/20 03/27/20 Rx glucosamine-chondroitin 250 mg-200 1 tab PO BID 02/11/20 03/27/20 History mg tablet omeprazole 40 mg capsule,delayed 40 mg PO DAILY #90 cap 02/11/20 03/27/20 Rx release insulin glargine 100 unit/mL (3 45 units SC DAILY #15 ml 02/13/20 03/27/20 Rx mL) subcutaneous pen furosemide 20 mg tablet 20 mg PO BID #180 tab 02/23/20 03/27/20 Rx simvastatin 80 mg tablet 40 mg PO HS #90 tab 03/03/20 03/27/20 Rx levothyroxine 37.5 mcg PO Q2D 03/27/20 03/27/20 History levothyroxine 75 mcg PO Q2D 03/27/20 03/27/20 History multivitamin with minerals 1 tab PO DAILY 03/27/20 03/27/20 History [Multiple Vitamin-Minerals] Patient History Medical History Anxiety Atrial flutter (Acute) on xarelto Chronic diastolic CHF (congestive heart failure) (Acute) Chronic steroid use Depression (Chronic) GERD (gastroesophageal reflux disease) (Chronic) Heart disease (Acute) IRREGULAR RHYTHYM HLD (hyperlipidemia) HTN (hypertension) (Acute) Hypothyroidism Iron deficiency anemia (Acute) Kidney stones (Acute) Left ventricular outflow tract obstruction FDC current use of systemic steroids (Acute) Mild HOCM (hypertrophic obstructive cardiomyopathy) Nephrolithiasis (Acute) Obstructive sleep apnea (Acute) On anticoagulant therapy xarelto daily On home oxygen therapy 2L N/C at hs Organic impotence (Acute) Pericardial effusion (Acute) Pleural effusion (Acute) HX OF Prostate cancer (Acute) Steroid-induced osteopenia (Acute) Surgical History H/O cystoscopy (Acute) "History of Cystoscopy With Insertion Of Ureteral Stent" on CCD H/O tooth extraction (Acute) History of bronchoscopy History of cardiac radiofrequency ablation History of prostatectomy (Acute) History of repair of right rotator cuff Hx of colonoscopy Hx of esophagogastroduodenoscopy Family History Sister Ovarian cancer Mother Skin cancer Myocardial infarction Grandfather Myocardial infarction Other No family history of adverse response to anesthesia Stroke Denies family history of Prostate cancer Breast cancer Colorectal cancer Social History Smoking Status: Former smoker Second Hand Exposure: No; Hx Alcohol Use: No Hx Substance Use: No Preferred Language: Danish Communication Ability: Effective Visual Impairment: No Limitations Hearing Ability: Use of Hearing Aid Attendance Secretary Required: No Beliefs That Will Affect Care: None marital status: Current Living Situation: Spouse current occupational status: retired Feels Safe at Home: Yes Safety Concerns: Feels Safe At This Time Childhood Exposure to Second-Hand Smoke: No caffeine: Yes during the past year weight has: remained stable Dental Care, Regularly: No Physical Activity Frequency: Does not Exercise Seatbelt Use: always Sunscreen Use: No Review of Systems Review of Systems: All systems reviewed & are unremarkable except as noted in HPI & below Physical Exam Physical Exam: The patient is alert And was oriented to person and place. He answered questions appropriately but pheresis syncope. HEENT: Pupils are equal and reactive to light and accommodation. Extraocular movements are intact. The sclerae are anicteric. Neuro: Cranial nerves intact Neck: Patient's neck is supple. He has palpable carotid pulses bilaterally without bruits on auscultation. There is no evidence of jugular venous distention. The thyroid is not enlarged. Lungs: Expiratory wheezing noted. Crackles multiple lung art. Normal respiratory effort. No use of accessory muscles. Cardiac: Heart demonstrates an irregular rate and rhythm. Normal S1 and S2. No murmurs on examination. Pulses: The patient has palpable radial pulses bilaterally that are equal in intensity Extremities: There was no evidence of hypoperfusion. There is no cyanosis or clubbing. There is Trace edema. Skin: I did not appreciate any rashes on examination today. Results & Data ([facility]) Vital Signs (Past 12 Hours) Vital Signs Temp Pulse Pulse Resp BP BP Pulse Ox 03/28/20 08:01 37.3 C 110 H 22 150/103 H 96 03/28/20 08:00 165 H 03/28/20 07:47 165 H 150/103 H 03/28/20 03:25 36.6 C 103 H 18 103/67 95 03/28/20 03:07 132 H 111/77 03/28/20 01:55 125 H 119/92 03/28/20 01:26 134 H 116/74 03/28/20 00:35 36.8 C 132 H 24 146/80 H 94 03/28/20 00:11 37.1 C 143 H 24 137/86 95 03/28/20 00:00 134 H 21 145/108 H 96 03/27/20 23:46 148 H 24 121/95 93 03/27/20 23:31 160 H 22 104/76 96 03/27/20 23:30 138 H 20 95 03/27/20 23:15 147 H 20 95/71 L 96 03/27/20 23:01 167 H 24 107/85 95 03/27/20 22:51 164 H 97 03/27/20 22:45 163 H 128/76 96 03/27/20 22:40 155 H 99 03/27/20 22:35 156 H 20 95 03/27/20 22:30 146 H 117/67 96 03/27/20 22:23 142 H 110/47 L 96 03/27/20 22:21 150 H 95 03/27/20 22:20 147 H 96 03/27/20 22:15 156 H 94 03/27/20 22:10 167 H 91 03/27/20 22:01 157 H 117/90 96 03/27/20 22:00 153 H 97 03/27/20 21:50 166 H 96 03/27/20 21:45 145 H 136/76 95 03/27/20 21:41 145 H 95 03/27/20 21:30 170 H 106/77 95 03/27/20 21:20 170 H 95 Laboratory Results Abnormal Lab Results 03/27/20 03/27/20 03/27/20 20:35 20:35 20:35 WBC 17.54 H RBC 4.30 L Hgb 12.7 L Hct 39.9 L MCV 92.8 MCH 29.5 MCHC 31.8 L RDW Std Deviation 51.7 H RDW Coeff of Ruddy 15.3 H Plt Count 249 MPV 10.3 Immature Gran % (Auto) Neut % (Auto) Lymph % (Auto) [place] % (Auto) Eos % (Auto) Baso % (Auto) Neut # (Auto) Lymph # (Auto) [place] # (Auto) Eos # (Auto) Baso # (Auto) Immature Gran # (Auto) Neutrophils % (Manual) 59.9 Lymphocytes % (Manual) 33.9 Monocytes % (Manual) 3.5 Eosinophils % (Manual) 0.9 Basophils % (Manual) 0.9 Myelocytes % (Man) 0.9 Neutrophils # (Manual) 10.51 H Total Absolute Neuts 10.51 H Lymphocytes # (Manual) 5.95 H Total Abs Lymphocytes 5.95 H Monocytes # (Manual) 0.61 H Eosinophils # (Manual) 0.16 Basophils # (Manual) 0.16 Myelocytes # (Manual) 0.16 H RBC Morphology Unremarkable ESR 20 H PT 11.6 INR 1.1 APTT 29.4 PTT Ratio 1.1 VBG pH VBG pCO2 VBG pO2 VBG HCO3 VBG O2 Saturation VBG Base Excess Barometric Pressure Sodium Potassium Chloride Carbon Dioxide Anion Gap BUN Creatinine Est Cr Clr Drug Dosing Est GFR ( Amer) Est GFR (Non-Af Amer) BUN/Creatinine Ratio Glucose POC Glucose Lactate Calcium Phosphorus Magnesium Total Bilirubin AST ALT Alkaline Phosphatase Troponin I C-Reactive Protein NT-Pro-B Natriuret Pep Total Protein Albumin Globulin Albumin/Globulin Ratio Procalcitonin Nasal Screen MRSA (PCR) COVID-19 Eval Order COVID-19 PCR 03/27/20 03/27/20 03/27/20 20:35 20:35 20:35 WBC RBC Hgb Hct MCV MCH MCHC RDW Std Deviation RDW Coeff of Ruddy Plt Count MPV Immature Gran % (Auto) Neut % (Auto) Lymph % (Auto) [place] % (Auto) Eos % (Auto) Baso % (Auto) Neut # (Auto) Lymph # (Auto) [place] # (Auto) Eos # (Auto) Baso # (Auto) Immature Gran # (Auto) Neutrophils % (Manual) Lymphocytes % (Manual) Monocytes % (Manual) Eosinophils % (Manual) Basophils % (Manual) Myelocytes % (Man) Neutrophils # (Manual) Total Absolute Neuts Lymphocytes # (Manual) Total Abs Lymphocytes Monocytes # (Manual) Eosinophils # (Manual) Basophils # (Manual) Myelocytes # (Manual) RBC Morphology ESR PT INR APTT PTT Ratio VBG pH VBG pCO2 VBG pO2 VBG HCO3 VBG O2 Saturation VBG Base Excess Barometric Pressure Sodium 139 Potassium 4.1 Chloride 111 H Carbon Dioxide 22 Anion Gap 6.0 BUN 24 H Creatinine 1.44 H Est Cr Clr Drug Dosing 46.9 Est GFR ( Amer) 52.0 Est GFR (Non-Af Amer) 44.9 BUN/Creatinine Ratio 16.5 Glucose 190 H POC Glucose Lactate 3.4 H* Calcium 8.8 Phosphorus Magnesium 1.7 L Total Bilirubin 0.5 AST 16 ALT 28 Alkaline Phosphatase 60 Troponin I 0.199 H* C-Reactive Protein 2.96 H NT-Pro-B Natriuret Pep 4275 H Total Protein 6.5 Albumin 3.0 L Globulin 3.5 Albumin/Globulin Ratio 0.9 Procalcitonin 0.13 Nasal Screen MRSA (PCR) COVID-19 Eval Order COVID-19 PCR 03/27/20 03/27/20 03/27/20 20:35 21:04 21:04 WBC RBC Hgb Hct MCV MCH MCHC RDW Std Deviation RDW Coeff of Ruddy Plt Count MPV Immature Gran % (Auto) Neut % (Auto) Lymph % (Auto) [place] % (Auto) Eos % (Auto) Baso % (Auto) Neut # (Auto) Lymph # (Auto) [place] # (Auto) Eos # (Auto) Baso # (Auto) Immature Gran # (Auto) Neutrophils % (Manual) Lymphocytes % (Manual) Monocytes % (Manual) Eosinophils % (Manual) Basophils % (Manual) Myelocytes % (Man) Neutrophils # (Manual) Total Absolute Neuts Lymphocytes # (Manual) Total Abs Lymphocytes Monocytes # (Manual) Eosinophils # (Manual) Basophils # (Manual) Myelocytes # (Manual) RBC Morphology ESR PT INR APTT PTT Ratio VBG pH 7.45 H VBG pCO2 32 L VBG pO2 58 VBG HCO3 22 VBG O2 Saturation 87.8 VBG Base Excess -1.4 Barometric Pressure 735.2 Sodium Potassium Chloride Carbon Dioxide Anion Gap BUN Creatinine Est Cr Clr Drug Dosing Est GFR ( Amer) Est GFR (Non-Af Amer) BUN/Creatinine Ratio Glucose POC Glucose Lactate Calcium Phosphorus Magnesium Total Bilirubin AST ALT Alkaline Phosphatase Troponin I C-Reactive Protein NT-Pro-B Natriuret Pep Total Protein Albumin Globulin Albumin/Globulin Ratio Procalcitonin Nasal Screen MRSA (PCR) COVID-19 Eval Order Covid19 Done at [facility] COVID-19 PCR NEGATIVE 03/27/20 03/28/20 03/28/20 22:41 00:55 02:06 WBC 13.27 H RBC 3.94 L Hgb 11.5 L Hct 36.1 L MCV 91.6 MCH 29.2 MCHC 31.9 L RDW Std Deviation 51.6 H RDW Coeff of Ruddy 15.3 H Plt Count 199 MPV 10.4 Immature Gran % (Auto) 1.9 Neut % (Auto) 57.9 Lymph % (Auto) 32.0 [place] % (Auto) 7.9 Eos % (Auto) 0.1 Baso % (Auto) 0.2 Neut # (Auto) 7.69 H Lymph # (Auto) 4.25 H [place] # (Auto) 1.05 H Eos # (Auto) 0.01 Baso # (Auto) 0.02 Immature Gran # (Auto) 0.25 H Neutrophils % (Manual) Lymphocytes % (Manual) Monocytes % (Manual) Eosinophils % (Manual) Basophils % (Manual) Myelocytes % (Man) Neutrophils # (Manual) Total Absolute Neuts Lymphocytes # (Manual) Total Abs Lymphocytes Monocytes # (Manual) Eosinophils # (Manual) Basophils # (Manual) Myelocytes # (Manual) RBC Morphology ESR PT INR APTT PTT Ratio VBG pH VBG pCO2 VBG pO2 VBG HCO3 VBG O2 Saturation VBG Base Excess Barometric Pressure Sodium Potassium Chloride Carbon Dioxide Anion Gap BUN Creatinine Est Cr Clr Drug Dosing Est GFR ( Amer) Est GFR (Non-Af Amer) BUN/Creatinine Ratio Glucose POC Glucose Lactate 2.4 H* Calcium Phosphorus Magnesium Total Bilirubin AST ALT Alkaline Phosphatase Troponin I C-Reactive Protein NT-Pro-B Natriuret Pep Total Protein Albumin Globulin Albumin/Globulin Ratio Procalcitonin Nasal Screen MRSA (PCR) Negative COVID-19 Eval Order COVID-19 PCR 03/28/20 03/28/20 03/28/20 02:06 02:06 07:25 WBC RBC Hgb Hct MCV MCH MCHC RDW Std Deviation RDW Coeff of Ruddy Plt Count MPV Immature Gran % (Auto) Neut % (Auto) Lymph % (Auto) [place] % (Auto) Eos % (Auto) Baso % (Auto) Neut # (Auto) Lymph # (Auto) [place] # (Auto) Eos # (Auto) Baso # (Auto) Immature Gran # (Auto) Neutrophils % (Manual) Lymphocytes % (Manual) Monocytes % (Manual) Eosinophils % (Manual) Basophils % (Manual) Myelocytes % (Man) Neutrophils # (Manual) Total Absolute Neuts Lymphocytes # (Manual) Total Abs Lymphocytes Monocytes # (Manual) Eosinophils # (Manual) Basophils # (Manual) Myelocytes # (Manual) RBC Morphology ESR PT INR APTT PTT Ratio VBG pH VBG pCO2 VBG pO2 VBG HCO3 VBG O2 Saturation VBG Base Excess Barometric Pressure Sodium 140 Potassium 4.8 D Chloride 113 H Carbon Dioxide 21 Anion Gap 6.0 BUN 23 H Creatinine 1.28 Est Cr Clr Drug Dosing 48.8 Est GFR ( Amer) 60.0 Est GFR (Non-Af Amer) 51.8 BUN/Creatinine Ratio 18.3 Glucose 279 H POC Glucose 200 H Lactate Calcium 7.7 L Phosphorus 3.0 Magnesium Total Bilirubin AST ALT Alkaline Phosphatase Troponin I 0.136 H* C-Reactive Protein NT-Pro-B Natriuret Pep Total Protein Albumin Globulin Albumin/Globulin Ratio Procalcitonin Nasal Screen MRSA (PCR) COVID-19 Eval Order COVID-19 PCR 03/28/20 08:07 WBC RBC Hgb Hct MCV MCH MCHC RDW Std Deviation RDW Coeff of Ruddy Plt Count MPV Immature Gran % (Auto) Neut % (Auto) Lymph % (Auto) [place] % (Auto) Eos % (Auto) Baso % (Auto) Neut # (Auto) Lymph # (Auto) [place] # (Auto) Eos # (Auto) Baso # (Auto) Immature Gran # (Auto) Neutrophils % (Manual) Lymphocytes % (Manual) Monocytes % (Manual) Eosinophils % (Manual) Basophils % (Manual) Myelocytes % (Man) Neutrophils # (Manual) Total Absolute Neuts Lymphocytes # (Manual) Total Abs Lymphocytes Monocytes # (Manual) Eosinophils # (Manual) Basophils # (Manual) Myelocytes # (Manual) RBC Morphology ESR PT INR APTT PTT Ratio VBG pH VBG pCO2 VBG pO2 VBG HCO3 VBG O2 Saturation VBG Base Excess Barometric Pressure Sodium Potassium Chloride Carbon Dioxide Anion Gap BUN Creatinine Est Cr Clr Drug Dosing Est GFR ( Amer) Est GFR (Non-Af Amer) BUN/Creatinine Ratio Glucose POC Glucose Lactate Calcium Phosphorus Magnesium Total Bilirubin AST ALT Alkaline Phosphatase Troponin I 0.127 H* C-Reactive Protein NT-Pro-B Natriuret Pep Total Protein Albumin Globulin Albumin/Globulin Ratio Procalcitonin Nasal Screen MRSA (PCR) COVID-19 Eval Order COVID-19 PCR Diagnostic Findings chest x-ray as well as CTA at the time of admission suggestive of multi lobar pneumonia echocardiogram performed 03/30/2019 revealed overall preserved LV systolic function moderate concentric LVH. Severe left atrial dilation. Mild mitral r egurgitation. Very slight dynamic outflow tract gradient with a sigmoid septum. Lexiscan perfusion study performed 05/27/2019: Ischemia noted in the PDA distribution with moderate myocardium at risk ECG Additional Comments: EKG obtained at the time admission revealed atrial fibrillation and rapid ventricular response. incomplete right bundle branch block and left anterior fascicular block PG Care Time/CCT Total # of Minutes Spent Total Time Spent with Patient: Total time spent is greater than 50% in coordination of care (as documented) at patient's floor/unit and/or counseling patient: Coding Level of Care Code 46284 Initial Inpt Care Lvl 3 Diagnoses Atrial fibrillation with rapid ventricular response I48.91 Elevated troponin I level R79.89
[2020-03-28] MEDS ORDERED: STAT IV Infusion **Titration per Protocol STA ×2 (09:38→11:39)
[2020-03-28] MEDS ORDERED: dilTIAZem HCl 5 MG/ML 5 ML VIAL IV STA (09:38)
[2020-03-28] MEDS: INSULIN ASPART 100 UNITS/ML 3 ML PEN SC SCH ×4 (09:56→21:39)
[2020-03-28] MEDS: INSULIN GLARGINE SOLOSTAR 100 UNITS/ML 3 ML PEN SC SCH ×2 (09:58→21:39)
[2020-03-28] MEDS: MAGNESIUM OXIDE 400 MG TAB PO SCH ×2 (10:06→21:39)
[2020-03-28] MEDS: ESCITALOPRAM OXALATE 10 MG TAB PO SCH (10:06)
[2020-03-28] MEDS: CYANOCOBALAMIN 500 MCG TABLET (VITAMIN B-12) PO SCH (10:07)
[2020-03-28] MEDS: PANTOprazole 40 MG TAB PO SCH (10:07)
[2020-03-28] MEDS: dilTIAZem HCL 125 MG in DEXTROSE 5% 100 ML IV SCH ×2 (10:17→18:27)
--- NOTE | 2020-03-28 11:00 | Electrocardiogram Report ---
Test Reason : Blood Pressure : / mmHG Vent. Rate : 157 BPM Atrial Rate : 159 BPM P-R Int : 000 ms QRS Dur : 116 ms QT Int : 304 ms P-R-T Axes : 000 270 049 degrees QTc Int : 491 ms Poor data quality, interpretation may be adversely affected Atrial fibrillation with rapid ventricular response Incomplete right bundle branch block Left axis deviation Nonspecific ST abnormality Abnormal ECG When compared with ECG of 21-JAN-2020 17:38, Atrial fibrillation has replaced Sinus rhythm Vent. rate has increased BY 75 BPM Nonspecific T wave abnormality, worse in Anterior leads Nonspecific T wave abnormality no longer evident in Lateral leads Confirmed by Artis Sorenson ([id number]) on 03/28/2020 10:59:57 AM Referred By: REFERRED SELF Confirmed By:Michael Sorenson
[2020-03-28] MEDS ORDERED: 0.2 MICRON FILTER SET 1 EA IV ONE (11:39)
[2020-03-28] MEDS ORDERED: AMIODARONE IV BOLUS & DRIP IV STA (11:39)
[2020-03-28] MEDS ORDERED: AMIODARONE / D5W 150 MG/100 ML BAG IV STA (11:42)
[2020-03-28] MEDS: IPRATROPIUM BROMIDE NEB SOLN 0.02% 2.5 ML VIAL NEB SCH ×3 (11:49→23:10)
[2020-03-28] MEDS ORDERED: AMIODARONE / D5W 360 MG/200 ML BAG IV ONE (12:00)
[2020-03-28] MEDS: methylPREDNISolone 60 MG in SYRINGE 0 ML IV SCH ×2 (12:10→20:14)
[2020-03-28 12:22] LABS: Appearance Urine Clear (Clear); Bacteria Urine Automated Negative (Negative); Bilirubin Urine Negative (Negative); Blood Urine Negative (Negative); Color Urine Dark Yellow; Epithelial Cell Urine Auto 0-5 /lpf (0-5); Glucose Urine UA Negative (Negative); Ketones Urine Negative (Negative); Leukocyte Esterase Urine Negative (Negative); Nitrite Urine Negative (Negative); Protein Urine 1+ (Negative); RBC Urine Automated 0-4 /hpf (0-4); Specific Gravity Urine > 1.045 (1.000-1.030); Urobilinogen Urine Negative (Negative)
[2020-03-28 13:56] LABS: Base Excess VBG -1.3 mEq/L; Oxygen Saturation VBG 92.5 %; pH VBG 7.46 (7.36-7.41)
--- NOTE | 2020-03-28 16:37 | Billing Data ---
Date of Service March 28, 2020 Coding Level of Care Code 29992 Subseq Hosp Care Lvl 3
[2020-03-28] MEDS: AMIODARONE / D5W 360 MG/200 ML BAG IV SCH (18:10)
[2020-03-28] MEDS: RIVAROXABAN 20 MG TAB PO SCH (21:38)
[2020-03-28] MEDS: SIMVASTATIN 40 MG TAB PO SCH (21:39)
[2020-03-29] MEDS: PIPERACILLIN/TAZOBACTAM 3.375 GM in DEXTROSE 5% 100 ML IV SCH ×3 (01:25→18:16)
[2020-03-29] MEDS: dilTIAZem HCL 125 MG in DEXTROSE 5% 100 ML IV SCH (01:25)
--- NOTE | 2020-03-29 01:52 | Billing Data ---
Date of Service March 29, 2020 Coding Level of Care Code Critical Care 1st - mins
[2020-03-29] MEDS: methylPREDNISolone 60 MG in SYRINGE 0 ML IV SCH ×3 (04:02→20:42)
[2020-03-29] MEDS: AMIODARONE / D5W 360 MG/200 ML BAG IV SCH ×2 (05:22→16:13)
[2020-03-29 06:54] LABS: Hematocrit (blood only) 35.7 % (42-52); Hemoglobin 11.4 g/dL (14.0-18.0); Immature Granulocytes # (auto) 0.11 K/uL (0.00-0.02); Lymphocytes # (auto) 2.87 K/uL (1.2-3.4); Lymphocytes % (auto) 26.1 %; Mean Corpuscular Hemoglobin 29.2 pg (25-34); Mean Corpuscular Hgb Conc 31.9 g/dL (32-36); Mean Corpuscular Volume 91.5 fL (80-100); Mean Platelet Volume 10.5 fL (7.4-10.4); Monocytes # (auto) 0.37 K/uL (0.11-0.59); Monocytes % (auto) 3.4 %; Neutrophils # (auto) 7.64 K/uL (1.4-6.5); Neutrophils % (auto) 69.5 %; Platelet Count 179 K/uL (130-400); RDW Coefficient of Variation 15.4 % (11.5-14.5); RDW Standard Deviation 51.1 fL (36.4-46.3); White Blood Count 10.99 K/uL (4.8-10.8)
[2020-03-29 07:05] LABS: INR 1.4 (0.9-1.1)
[2020-03-29] MEDS: IPRATROPIUM BROMIDE NEB SOLN 0.02% 2.5 ML VIAL NEB SCH ×3 (07:05→23:35)
[2020-03-29 07:07] LABS: Estimated Average Glucose 206 mg/dl; Hemoglobin A1C 8.8 % (4.5-5.6)
[2020-03-29 07:29] LABS: Albumin Level 2.9 gm/dl (3.4-5.0); BUN Creatinine Ratio 16.8 (10-20); Bilirubin Direct 0.2 mg/dl (0-0.2); Bilirubin,Total 0.6 mg/dl (0.2-1); Calcium 8.4 mg/dl (8.5-10.1); Creatinine Clr Calc Pharmacy 42.8 ml/min; Est GFR (African American) 51.2; Est GFR (Non-African American) 44.2; Magnesium 2.5 mg/dl (1.8-2.4); Potassium 4.3 mmol/L (3.5-5.1); Total Protein 6.3 gm/dl (6.4-8.2)
[2020-03-29 07:46] LABS: Beta-Hydroxybutyrate 10.65 mg/dl (0.2-2.81)
[2020-03-29] MEDS ORDERED: PHARMACY GLYCEMIC MGMT CONSULT PRN (07:54)
[2020-03-29] MEDS ORDERED: SODIUM CHLORIDE 0.9% 500 ML IV SCH (08:00)
--- NOTE | 2020-03-29 08:11 | Hospitalist Progress Note ---
Date of Service March 29, 2020 Assessment & Plan (1) SDAT (senile dementia of Alzheimer's type): Mr. Gibson is a 80 yo male with h/o atrial fibrillation, congestive heart failure, diabetes, who was admitted on 03/27/2020 for pneumonia and a-fib with RVR. He was started on IV Zosyn for PNA and started on Diltiazem/Amiodarone drips with continued Xarelto for a-fib w/ RVR. Developed COPD exacerbation after admission and was started on ipratropium nebs and IV Solumedrol. Community-Acquired Pneumonia - Leukocytosis to 17.54 Lactate 3.4 --> 2.4 - CXR rotated, hazy opacities in RML - CT-PE negative for PE - MRSA nare negative - scaterred rhonchi on exam likely due to acute mucus plugging after starting abx - Continue Zosyn and follow Blood Cx - Aspiration precautions: minced/moist diet per ST recommendations Afib w/ RVR - likely to initially be physiologic tachycardia in response to acute illness that converted to Afib w RVR - Continue rivaroxaban 20mg daily - Greatly improved with HR of 80-100 and improved respiratory status - Wean off of Diltiazem - PRN Lopressor 5 mg IV for HR>120 bpm - Continue Amiodarone gtt to assist with rate control and respiratory status - Optimize electrolytes - BMP daily COPD exacerbation on Chronic COPD - increased bilateral expiratory wheezes and work of breathing since admission likely secondary to acute respiratory infection - patient has improved respiratory status and no wheezes on exam - Decrease Methylprednisolone to 60 mg IV BID - Continue Ipratropium nebs Q8H - unable to have duo nebs at this time due to tachycardia - Hold home inhaler and prednisone for now Chronic diastolic CHF (congestive heart failure): - Lasix 20mg daily held for volume depletion BNP elevated 4275 but no JVD, bilateral crackles, LE edema on exam - CXR/Chest CT more consistent with PNA - Echo 11/2017: normal LV size, mi concentric LVH, Grade II diastolic dysfunction, normal RV size & function, LVEF 60-65%. - Continue to monitor respiratory status and serial physical exams for signs of CHF exacerbation Abdominal Distension: - secondary to fecal impaction vs pulmonary hyperinflation - KUB showed ileus with partial small bowel obstruction - NPO for now - BM x1, formed but not hard, this afternoon - Miralax PRN for constipation Type 2 DM - worsening hyperglycemia, most likely secondary to IV steroids - beta-hydroxybutyrate ordered - insulin gtt started today per pharmacy recommendations - Hold [employer] glimepiride, glargine 45 sq daily, metformin while inpatient - Glargine 30U BID, SSI GOAL 100-140, CF 20, Ratio 1:10 - BSG AC/HS - BMP daily as stated above Elevated troponin, resolving 0.199 --> .127, suspect secondary to demand ischemia EKG afib RVR Urinary Retention, resolved - s/p aldana placement on 03/28 - possible secondary to BPH Obstructive sleep apnea: - Continue CPAP Depression: - Continue Lexapro 10mg qAM Hypothyroidism - Continue Synthroid 75mcg daily GERD - Continue Protonix 40mg PO daily while inpatient HLD - Continue simvastatin 80mg daily HTN - Hypotensive at admit, held antihypertensives FENGI: Diabetic/Heart Healthy, minced/moist per aspiration precautions DVT ppx: home dose Xarelto 20 mg daily Code Status: DNI, but OK with shock/meds/CPR Dispo: Med tele (2) Poorly controlled diabetes mellitus: (3) Diabetes mellitus type 2 in nonobese: (4) Coronary arteriosclerosis: (5) Iron deficiency anemia: (6) Chronic diastolic CHF (congestive heart failure): (7) Mitral regurgitation: (8) Left ventricular outflow tract obstruction: (9) Chronic obstructive pulmonary disease: Admission and Anticipated Discharge Date Admission Date: March 27, 2020 Supervising Physician Co-Signing Physician Notes Attending attestation Pt seen and examined in concert with Dr. Ceja. In agreement with the documented findings as noted in the resident documentation with any exceptions or additions as noted here. On examination, S1/S2 IRR/IRR, no MCG. CTAB though mildly decreased. Abd NT/ND BS+ve with palpable tension/distension. Intermittent constipation with abd distention on KUB - NPO for now, re-assess in AM AF w/ RVR, elevated trop and chronic diastolic CHF - cardiology consultation - tapering dilt drip with PRN lopressor IV. Continue amiodarone drip. COPD exacerbation - taper solumedrol to 60mg q12. Monitor and consider transition to PO in AM Else see resident documentation as noted. Subjective No acute events overnight. HR much improved since Amiodarone gtt added; 80s-100s for ~18 hours. Continues to sat well on 4L NC with no shortness of breath. Appropriate UOP with aldana in place. Denies fever/chills, chest pain, abdominal pain. Following minced/moist diet with no aspiration events. BMx1 yesterday - soft and brown. Review of Systems Constitutional: as per Subjective / HPI Respiratory: as per Subjective / HPI Cardiovascular: as per Subjective / HPI Gastrointestinal: as per Subjective / HPI Physical Exam Constitutional: WD/WN, vitals as above no acute distress Eyes: PERRL, conjunctivae normal, anicteric sclerae Neck: normal visual inspection Respiratory: normal respiratory effort; no labored breathing Auscultation: + rhonchi (scattered throughout lung art) Cardiovascular: Heart Sounds: no murmur Vessels: no JVD Extremities: no edema normal rate, irregular rhythm Gastrointestinal (Abdomen): Inspection/Auscultation: + abdomen distended and normal bowel sounds Percussion/Palpation: abdomen nontender and no guarding Musculoskeletal: no cyanosis or clubbing, extremities motor strength 5/5 Skin: no rashes, warm and dry Psychiatric: A+Ox3, euthymic affect Results & Data Results & Data ([facility]) Vital Signs (Past 12 Hours) Vital Signs Temp Pulse Pulse Resp BP Pulse Ox 03/29/20 07:58 36.3 C L 104 H 20 118/68 96 03/29/20 07:25 70 03/29/20 07:05 61 16 96 03/29/20 03:33 36.5 C 80 18 104/66 95 03/29/20 00:35 36.4 C L 86 18 113/71 93 03/28/20 23:37 66 03/28/20 23:10 81 18 94 CBC w Diff Results Results CBC w Diff: RBC 3.66 M/uL (4.7-6.1) L 03/30/20 WBC 11.48 K/uL (4.8-10.8) H 03/30/20 Hgb 10.8 g/dL (14.0-18.0) L 03/30/20 Hct 32.8 % (42-52) L 03/30/20 MCV 89.6 fL (80-100) 03/30/20 MCH 29.5 pg (25-34) 03/30/20 MCHC 32.9 g/dL (32-36) 03/30/20 RDW Standard Deviation 50.0 fL (36.4-46.3) H 03/30/20 RDW Coefficient of Variation 15.3 % (11.5-14.5) H 03/30/20 Plt Count 189 K/uL (130-400) 03/30/20 MPV 10.5 fL (7.4-10.4) H 03/30/20 Nucleated Red Blood Cells % (auto) 0.5 % 04/05/19 Nucleated RBC Absolute Count (auto) 0.06 K/uL (0-0) H 04/05/19 Neutrophils (%) (Auto) 69.6 % 03/30/20 Lymphocytes (%) (Auto) 24.3 % 03/30/20 Monocytes # (Auto) 0.66 K/uL (0.11-0.59) H 03/30/20 Eosinophils # (Auto) 0.00 K/uL (0-0.5) 03/30/20 Immature Granulocyte % (Auto) 0.4 % 03/30/20 Neutrophils # (Auto) 7.98 K/uL (1.4-6.5) H 03/30/20 Lymphocytes # (Auto) 2.79 K/uL (1.2-3.4) 03/30/20 Monocytes # (Auto) 0.66 K/uL (0.11-0.59) H 03/30/20 Eosinophils # (Auto) 0.00 K/uL (0-0.5) 03/30/20 Basophils # (Auto) 0.00 K/uL (0-0.2) 03/30/20 Immature Granulocyte # (Auto) 0.05 K/uL (0.00-0.02) H 03/30/20 ANC 10.51 K/uL (1.4-6.5) H 03/27/20 ALC 5.95 K/uL (1.2-3.4) H 03/27/20 Neutrophils % (Manual) 59.9 % 03/27/20 Band Neutrophils % Cancelled 08/03/18 Lymphocytes % (Manual) 33.9 % 03/27/20 Reactive Lymphocytes % (Manual) Cancelled 08/03/18 Large Granular Lymphocytes Cancelled 08/03/18 Monocytes % (Manual) 3.5 % 03/27/20 Eosinophils % (Manual) 0.9 % 03/27/20 Basophils % (Manual) 0.9 % 03/27/20 Metamyelocytes % (manual) Cancelled 08/03/18 Myelocytes % (Manual) 0.9 % 03/27/20 Promyelocytes % (Manual) Cancelled 08/03/18 Blast Cells % (Manual) Cancelled 08/03/18 Prolymphocyte % Cancelled 08/03/18 Plasma Cells % (manual) Cancelled 08/03/18 Nucleated Red Blood Cells % Cancelled 08/03/18 Other Cells % Cancelled 08/03/18 Neutrophils # (Manual) 10.51 K/uL (1.4-6.5) H 03/27/20 Band Neutrophils # Cancelled 08/03/18 Lymphocytes # (Manual) 5.95 K/uL (1.2-3.4) H 03/27/20 Reactive Lymphocytes # Cancelled 08/03/18 Absolute Large Granular Lymphocytes Cancelled 08/03/18 Monocytes # (Manual) 0.61 K/uL (0.11-0.59) H 03/27/20 Eosinophils # (Manual) 0.16 K/uL (0-0.5) 03/27/20 Basophils # (Manual) 0.16 K/uL (0-0.2) 03/27/20 Metamyelocytes # (Manual) Cancelled 08/03/18 Myelocytes # (Manual) 0.16 K/uL (0-0) H 03/27/20 Promyelocytes # (Manual) Cancelled 08/03/18 Blast Cells # (Manual) Cancelled 08/03/18 Prolymphocyte # Cancelled 08/03/18 Plasma Cells # (manual) Cancelled 08/03/18 Other Cells # Cancelled 08/03/18 Nucleated RBC Absolute Count (manu) Cancelled 08/03/18 Hyposegmented Neutrophils Cancelled 08/03/18 Hypogranular Neutrophils Cancelled 08/03/18 Hypersegmented Neutrophils Cancelled 08/03/18 Smudge Cells Cancelled 08/03/18 Hypogranular Platelets Cancelled 08/03/18 Giant Platelets Cancelled 08/03/18 Platelet Satelliting Cancelled 08/03/18 Clumped Platelets Cancelled 08/03/18 Red Blood Cell Morphology Unremarkable 03/27/20 Polychromasia Cancelled 08/03/18 Hypochromasia Cancelled 08/03/18 Poikilocytosis Cancelled 08/03/18 Basophilic Stippling Cancelled 08/03/18 Echinocytes 1+ 04/03/19 Anisocytosis Cancelled 08/03/18 Microcytosis Cancelled 08/03/18 Macrocytosis Cancelled 08/03/18 Spherocytes Cancelled 08/03/18 Pappenheimer Bodies Cancelled 08/03/18 Sickle Cells Cancelled 08/03/18 Target Cells Cancelled 08/03/18 Tear Drop Cells Cancelled 08/03/18 Ovalocytes Cancelled 08/03/18 Stomatocytes Cancelled 08/03/18 Rousseau-Faith Bodies Cancelled 08/03/18 Toxic Granulation Cancelled 08/03/18 Toxic Vacuolation Cancelled 08/03/18 Dohle Bodies Cancelled 08/03/18 Acanthocytes Cancelled 08/03/18 Eddie Rods Cancelled 08/03/18 Rouleau Cancelled 08/03/18 Schistocytes Cancelled 08/03/18 Sezary Cell Cancelled 08/03/18 Hairy Cells Cancelled 08/03/18 RBC Agglutinates Cancelled 08/03/18 Red Cell Morphology Comment Cancelled 08/03/18 Chemistry (BMP) Results BMP Results: Sodium 138 mmol/L (136-145) 03/30/20 Potassium 3.8 mmol/L (3.5-5.1) 03/30/20 Chloride 107 mmol/L (98-107) 03/30/20 BUN 31 mg/dl (7-18) H 03/30/20 Creatinine 1.32 mg/dl (0.6-1.4) 03/30/20 Glucose 104 mg/dl (70-99) H 03/30/20 Coag Studies Results Coagulation Results: PT 15.0 Seconds (9.0-12.0) H 03/29/20 PTT 29.4 Seconds (21.0-31.0) 03/27/20 INR 1.4 (0.9-1.1) H 03/29/20 Resident Activity Tracking Resident Involvement: Resident Care Provided Care Provided: [facility] Medicine
[2020-03-29] MEDS: ESCITALOPRAM OXALATE 10 MG TAB PO SCH (08:45)
[2020-03-29] MEDS: PANTOprazole 40 MG TAB PO SCH (08:45)
[2020-03-29] MEDS: MAGNESIUM OXIDE 400 MG TAB PO SCH ×2 (08:45→20:42)
[2020-03-29] MEDS: LEVOTHYROXINE SODIUM 75 MCG TABLET PO SCH (08:45)
[2020-03-29] MEDS: CYANOCOBALAMIN 500 MCG TABLET (VITAMIN B-12) PO SCH (08:45)
[2020-03-29] MEDS: INSULIN ASPART 100 UNITS/ML 3 ML PEN SC SCH ×5 (08:46→20:40)
[2020-03-29] MEDS: INSULIN GLARGINE SOLOSTAR 100 UNITS/ML 3 ML PEN SC SCH ×2 (08:47→20:42)
--- NOTE | 2020-03-29 09:44 | Pharmacy Report ---
Glycemic Control Consultation - Date of Service March 29, 2020 - Scope Scope: Glycemic Pharmacist consulted for glycemic control and to write orders per [facility] inpatient glycemic control protocol. - Objective Weight: 90.4 kg Accuchecks BSG (last 24hrs): 03/28/20 03/28/20 03/28/20 11:38 16:46 20:27 Glucose POC Glucose 212 H 260 H 295 H 03/29/20 03/29/20 06:41 07:44 Glucose 323 H* POC Glucose 325 H* Laboratory Data (last 24hrs): 03/29/20 06:41 Potassium 4.3 Carbon Dioxide 23 Anion Gap 9.0 Creatinine 1.46 H Est Cr Clr Drug Dosing 42.8 Beta-Hydroxybutyric Acd 10.65 H HbA1c: Hemoglobin A1c 8.8 % (4.5-5.6) H 03/28/20 02:06 - Recent Pertinent Medications Outpatient Anti-diabetic Regimen: * Lantus 45 units daily, glimepiride 2 mg daily, metformin 1 gm bid * A1c = 8.8 % 03/28/20 The patient is currently receiving: * Basal insulin: Lantus 23 units every 12 hours * Correctional Insulin: Novolog Correction per scale ACHS Goal Range: Low 100 mg/dL - High 140 mg/dL Correction Factor: 20 mg/dL/unit * Prandial insulin: Per carb ratio of 1 unit per 10 grams CHO consumed Risk Factors for Insulin Resistance: * Steroids: solm 60 q 8 hrs * Infection: zosyn * Diet: t2dm - Assessment & Plan Assessment & Plan: ASSESSMENT: * 80 year old admitted with possible community acquired pneumonia/COPD exacerbation and afib * Started on steroids on admission and BSGs trending up. Pharmacy consulted this AM as BSGs >300 mg/dL * Plan to increase basal insulin by ~30% and tighten CF/CR to stress of 3 dosing. Do have some data for glycemic management from other admissions to assist with adjustments PLAN FOR INPATIENT GLYCEMIC CONTROL: * Basal insulin * Lantus 30 units BID * Bolus insulin * NovoLog per scale ACHS or Q6hrs while NPO * Goal Range: Low 100 mg/dL - High 140 mg/dL * Correction Factor: 15 mg/dL/unit * Nutritional / Prandial insulin per carb ratio of 1 unit per 6 grams CHO consumed PLAN FOR DISCHARGE: * A1C on admission is 8.8%. Goal <8%. Improved since last A1C 01/15/20 at 11.1% * Appears Lantus was added to patient's regimen in September this year and outpatient provider has been titrating up dosing. * Sulfonylureas such as glimepiride may cause more profound hypoglycemic effects in the elderly population. Would recommend careful titration and close monitoring with agent on discharge. * Improvement seen with A1c, would recommend continuation of home diabetic agents on discharge as long as renal function continues to improve. * Please note that the plan above was derived based on current level of insulin resistance and hospital stress. These recommendations are appropriate for inpatient admission only. Plan of care upon discharge will need to be reassessed to avoid potential outpatient hypo/hyperglycemia. Thank you.
[2020-03-29] MEDS ORDERED: METOPROLOL TARTRATE 1 MG/ML VIAL IV PRN (12:19)
[2020-03-29] MEDS ORDERED: INSULIN REGULAR 250 UNITS in SODIUM CHLORIDE 0.9% 247.5 ML IV SCH (12:30)
[2020-03-29] MEDS ORDERED: INSULIN HUMAN REGULAR IV BOLUS 2 UNITS in SYRINGE 0 ML IV ONE (12:30)
--- NOTE | 2020-03-29 12:46 | XRay Report ---
KUB HISTORY: abdominal distension COMPARISON: KUB 07/09/2014. Abdomen and pelvis CT 08/14/2018. FINDINGS: Mildly dilated gas-filled loop of small bowel within the right lower quadrant. This measure s up to 4 cm in diameter. Remaining loops of bowel are normal in caliber. Prior prostatectomy. No re nal calculi. No ureteral calculi. No pneumoperitoneum or pneumatosis. IMPRESSION: A single mildly dilated gas-filled loop of small bowel to the right lower quadrant. This could be due to an ileus or partial small bowel obstruction. ACT 112: Negative or not required by law. Electronically signed by: Sandor Murdock M.D. 03/29/2020 12:45 PM
[2020-03-29] MEDS ORDERED: STAT IV Infusion **Titration per Protocol STA (15:17)
[2020-03-29] MEDS ORDERED: dilTIAZem HCL 125 MG in DEXTROSE 5% 100 ML IV SCH (15:30)
[2020-03-29] MEDS: SIMVASTATIN 40 MG TAB PO SCH (20:42)
[2020-03-29] MEDS: RIVAROXABAN 20 MG TAB PO SCH (20:42)
[2020-03-30] MEDS: PIPERACILLIN/TAZOBACTAM 3.375 GM in DEXTROSE 5% 100 ML IV SCH ×2 (01:37→09:09)
[2020-03-30] MEDS: AMIODARONE / D5W 360 MG/200 ML BAG IV SCH ×2 (04:10→15:42)
[2020-03-30] MEDS: LEVOTHYROXINE SODIUM 25 MCG TABLET PO SCH (05:40)
[2020-03-30] MEDS: IPRATROPIUM BROMIDE NEB SOLN 0.02% 2.5 ML VIAL NEB SCH ×3 (06:44→23:07)
[2020-03-30 07:44] LABS: Hematocrit (blood only) 32.8 % (42-52); Hemoglobin 10.8 g/dL (14.0-18.0); Immature Granulocytes # (auto) 0.05 K/uL (0.00-0.02); Immature Granulocytes % (auto) 0.4 %; Lymphocytes # (auto) 2.79 K/uL (1.2-3.4); Lymphocytes % (auto) 24.3 %; Mean Corpuscular Hemoglobin 29.5 pg (25-34); Mean Corpuscular Hgb Conc 32.9 g/dL (32-36); Mean Corpuscular Volume 89.6 fL (80-100); Mean Platelet Volume 10.5 fL (7.4-10.4); Monocytes # (auto) 0.66 K/uL (0.11-0.59); Monocytes % (auto) 5.7 %; Neutrophils # (auto) 7.98 K/uL (1.4-6.5); Neutrophils % (auto) 69.6 %; Platelet Count 189 K/uL (130-400); RDW Coefficient of Variation 15.3 % (11.5-14.5); Red Blood Count 3.66 M/uL (4.7-6.1); White Blood Count 11.48 K/uL (4.8-10.8)
[2020-03-30 08:12] LABS: BUN Creatinine Ratio 23.4 (10-20); Calcium 8.1 mg/dl (8.5-10.1); Creatinine Clr Calc Pharmacy 47.4 ml/min; Est GFR (African American) 57.8; Est GFR (Non-African American) 49.9; Magnesium 2.7 mg/dl (1.8-2.4); Potassium 3.8 mmol/L (3.5-5.1)
[2020-03-30] MEDS: INSULIN ASPART 100 UNITS/ML 3 ML PEN SC SCH ×3 (08:54→20:37)
[2020-03-30] MEDS: ESCITALOPRAM OXALATE 10 MG TAB PO SCH (08:59)
[2020-03-30] MEDS: PANTOprazole 40 MG TAB PO SCH (09:00)
[2020-03-30] MEDS: MAGNESIUM OXIDE 400 MG TAB PO SCH (09:00)
[2020-03-30] MEDS ORDERED: INSULIN GLARGINE SOLOSTAR 100 UNITS/ML 3 ML PEN SC SCH ×2 (09:00)
[2020-03-30] MEDS: CYANOCOBALAMIN 500 MCG TABLET (VITAMIN B-12) PO SCH (09:00)
[2020-03-30] MEDS: methylPREDNISolone 60 MG in SYRINGE 0 ML IV SCH (09:10)
--- NOTE | 2020-03-30 09:11 | Pharmacy Report ---
Pharmacy Glycemic Short Note 2 - Date of Service March 30, 2020 - Glycemic Short BSG Results (Last 24 hours): 03/29/20 03/29/20 03/29/20 11:37 14:31 15:30 Glucose POC Glucose 365 H* 370 H* 363 H* 03/29/20 03/29/20 03/29/20 16:30 17:30 18:28 Glucose POC Glucose 267 H 258 H 217 H 03/29/20 03/29/20 03/29/20 19:21 21:28 23:35 Glucose POC Glucose 197 H 182 H 139 H 03/30/20 03/30/20 03/30/20 01:21 04:35 07:22 Glucose 104 H POC Glucose 127 H 135 H 03/30/20 07:29 Glucose POC Glucose 118 H ASSESSMENT: 03/30: * Patient received total of 87 units of insulin yesterday in addition to insulin gtt. Insulin gtt running at 3 units/hr. Total daily insulin yesterday closer to ~120 units * Patient became NPO at dinner time yesterday due to concern for SBO / continues NPO status this morning. Insulin gtt rate stable at 3 units over past ~12 hrs. Plan to d/c gtt this AM. Plan to continue with Lantus 30 units this AM and add scale for HS based on BSG * Start correctional insulin at lunch time PLAN FOR INPATIENT GLYCEMIC CONTROL: * Basal insulin * Lantus 30 unit this AM * Lantus 30-40 units HS based upon BSG - see emar for more details * Bolus insulin * NovoLog per scale ACHS or Q6hrs while NPO * Goal Range: Low 110 mg/dL - High 160 mg/dL * Correction Factor: 15 mg/dL/unit * Nutritional / Prandial insulin per carb ratio of 1 unit per 5 grams CHO consumed PLAN FOR DISCHARGE: * A1C on admission is 8.8%. Goal <8%. Improved since last A1C 01/15/20 at 11.1% * Appears Lantus was added to patient's regimen in September this year and outpatient provider has been titrating up dosing. * Sulfonylureas such as glimepiride may cause more profound hypoglycemic effects in the elderly population. Would recommend careful titration and close monitoring with agent on discharge. * Improvement seen with A1c, would recommend continuation of home diabetic agents on discharge as long as renal function continues to improve.
[2020-03-30] MEDS ORDERED: SODIUM CHLORIDE 0.9% 500 ML IV SCH (09:15)
[2020-03-30] MEDS ORDERED: INSULIN ASPART 100 UNITS/ML 3 ML PEN SC SCH (12:00)
--- NOTE | 2020-03-30 13:29 | Hospitalist Progress Note ---
Date of Service March 30, 2020 Assessment & Plan (1) SDAT (senile dementia of Alzheimer's type): Mr. Gibson is a 80 yo male with h/o atrial fibrillation, congestive heart failure, diabetes, who was admitted on 03/27/2020 for pneumonia and a-fib with RVR. He was started on IV Zosyn for PNA and started on Diltiazem/Amiodarone drips with continued Xarelto for a-fib w/ RVR. Developed COPD exacerbation after admission and was started on ipratropium nebs and IV Solumedrol. Community-Acquired Pneumonia - Leukocytosis improving with IV Zoysn - MRSA nare negative - pulmonary exam improving - Transition to PO abx: start Augmentin PO x7 days, first dose tomorrow - Aspiration precautions: minced/moist diet per ST recommendations Afib w/ RVR - likely to initially be physiologic tachycardia in response to acute illness that converted to Afib w RVR - Continue rivaroxaban 20mg daily - Greatly improved with HR 60s-70s and improved respiratory status - PRN Lopressor 5 mg IV for HR>120 bpm - Transition to PO Amiodarone 300 mg BID per Cardiology recommendations - re-start home dose Lasix 20 mg PO daily per Cardiology recommendations - Optimize electrolytes - BMP daily COPD exacerbation on Chronic COPD - increased bilateral expiratory wheezes and work of breathing since admission likely secondary to acute respiratory infection - patient has improved respiratory status and continues to have no wheezes on exam - transition to Prednisone PO 12-day taper starting tomorrow: 60 mg PO x4 days, 40 mg PO x4 days, 20 mg PO x4 days - Continue Ipratropium nebs Q8H - Continue to wean supplemental oxygen as tolerated, currently doing well at 2L NC. - Hold home inhaler and prednisone for now Chronic diastolic CHF (congestive heart failure): - Lasix 20mg daily held for volume depletion BNP elevated 4275 but no JVD, bilateral crackles, LE edema on exam - CXR/Chest CT more consistent with PNA - Echo 11/2017: normal LV size, mi concentric LVH, Grade II diastolic dysfunction, normal RV size & function, LVEF 60-65%. - Continue to monitor respiratory status and serial physical exams for signs of CHF exacerbation Abdominal Distension: - secondary to fecal impaction vs pulmonary hyperinflation - KUB showed ileus with partial small bowel obstruction - doing well with no abdominal pain and decreased distension on exam - advance back to minced/moist diet, per aspiration precautions - repeat KUB today - Miralax PRN for constipation Type 2 DM - improved glucose to low 100s with insulin gtt - Per pharmacy recommendations: d/c insulin drip - Hold [employer] glimepiride, glargine 45 sq daily, metformin while inpatient - Glargine 30U QHS, SSI GOAL 110-160 - BSG AC/HS - BMP daily as stated above Elevated troponin, resolving 0.199 --> .127, suspect secondary to demand ischemia EKG afib RVR Urinary Retention, resolved - s/p aldana placement on 03/28 with adequate UOP - possible secondary to BPH Obstructive sleep apnea: - Continue CPAP Depression: - Continue Lexapro 10mg qAM Hypothyroidism - Continue Synthroid 75mcg daily GERD - Continue Protonix 40mg PO daily while inpatient HLD - Continue simvastatin 80mg daily HTN - Hypotensive at admit, held antihypertensives FENGI: Diabetic/Heart Healthy, minced/moist per aspiration precautions DVT ppx: home dose Xarelto 20 mg daily Code Status: DNI, but OK with shock/meds/CPR Dispo: Med tele, for now plan is for patient to be discharged home when stable off of Amio gtt - his assists with some ADLs and all iADLs (2) Poorly controlled diabetes mellitus: (3) Diabetes mellitus type 2 in nonobese: (4) Coronary arteriosclerosis: (5) Iron deficiency anemia: (6) Chronic diastolic CHF (congestive heart failure): (7) Mitral regurgitation: (8) Left ventricular outflow tract obstruction: (9) Chronic obstructive pulmonary disease: Admission and Anticipated Discharge Date Admission Date: March 27, 2020 Supervising Physician Co-Signing Physician Notes Attending attestation Pt seen and examined in concert with Dr. Ceja. In agreement with the documented findings as noted in the resident documentation with any exceptions or additions as noted here. Improved abdominal distention subjectively with no diminished appetite or nausea and regular, brown bowel movement. On examination, S1/S2 IRR/IRR, no MCG. CTAB though mildly decreased. Abd NT/ND BS+ve with improved tension/distension. Intermittent constipation with abd distention on KUB - improved - repeat KUB, restart diet AF w/ RVR, elevated trop and chronic diastolic CHF - cardiology consultation - no further need for lopressor IV. Continue amiodarone drip until rec'd by cardio COPD exacerbation - transition to PO prednisone with taper, monitor respiratory change and encourage neb use DMII - transition to basal/bolus and monitor glucose Else see resident documentation as noted. Subjective No acute events overnight. HR continues to be stable - 60s to 70s - without need for PRN Lopressor. Continues to sat well with no shortness of breath - now down to 2L NC. Appropriate UOP with aldana in place. Denies fever/chills, chest pain, abdominal pain. NPO. BMx1 yesterday - soft and brown. Review of Systems Constitutional: as per Subjective / HPI Respiratory: as per Subjective / HPI Cardiovascular: as per Subjective / HPI; no palpitations Gastrointestinal: as per Subjective / HPI Physical Exam Constitutional: WD/WN, vitals as above no acute distress Eyes: PERRL, conjunctivae normal, anicteric sclerae Neck: trachea midline, no thyromegaly normal visual inspection Respiratory: normal respiratory effort; no labored breathing Auscultation: + rhonchi (scattered throughout lung art - less audible and improved) Cardiovascular: Heart Sounds: no murmur Vessels: no JVD Extremities: no edema Gastrointestinal (Abdomen): Inspection/Auscultation: + abdomen distended and normal bowel sounds Percussion/Palpation: abdomen nontender and no guarding Musculoskeletal: no cyanosis or clubbing, extremities motor strength 5/5 Skin: no rashes, warm and dry Psychiatric: A+Ox3, euthymic affect Lymphatic: no cervical lymphadenopathy Results & Data Results & Data ([facility]) Vital Signs (Past 12 Hours) Vital Signs Temp Pulse Pulse Resp BP BP Pulse Ox 03/30/20 11:16 36.4 C L 68 19 122/78 98 03/30/20 08:00 65 03/30/20 07:53 36.7 C 64 19 122/77 98 03/30/20 06:44 68 20 98 03/30/20 03:25 36.4 C L 69 20 119/77 97 Laboratory Results Magnesium 2.7 CBC Results Results Complete Blood Count Results: RBC 3.66 M/uL (4.7-6.1) L 03/30/20 WBC 11.48 K/uL (4.8-10.8) H 03/30/20 Hgb 10.8 g/dL (14.0-18.0) L 03/30/20 Hct 32.8 % (42-52) L 03/30/20 Plt Count 189 K/uL (130-400) 03/30/20 Chemistry ([facility]) Results [facility] Results: Sodium 138 mmol/L (136-145) 03/30/20 Potassium 3.8 mmol/L (3.5-5.1) 03/30/20 Chloride 107 mmol/L (98-107) 03/30/20 BUN 31 mg/dl (7-18) H 03/30/20 Creatinine 1.32 mg/dl (0.6-1.4) 03/30/20 Glucose 104 mg/dl (70-99) H 03/30/20
--- NOTE | 2020-03-30 16:41 | XRay Report ---
KUB CLINICAL HISTORY: trend ileus/partial SBO COMPARISON STUDY: CT of the abdomen and pelvis September 23, 2019. KUB March 29, 2020. FINDINGS: Pelvic surgical clips are noted. Small bowel dilatation shown on exam of March 29, 2020 at result. There is no evidence for a bowel obstruction on this examination. Small bilateral pleural ef fusions are incidentally noted. IMPRESSION: Interval resolution of small bowel dilatation. No evidence for a bowel obstruction on th is exam. ACT 112: Negative or not required by law. Electronically signed by: Cesar Faye M.D. 03/30/2020 4:40 PM
[2020-03-30] MEDS: AMOXICILLIN/CLAVULANATE 875 MG TAB PO SCH (16:43)
--- NOTE | 2020-03-30 17:32 | Cardiology Progress Note ---
Date of Service March 30, 2020 Assessment & Plan (1) Atrial fibrillation: --post aflutter ablation 09/2018. On chronic anticoagulation with Xarelto 2. Community acquired PNA 3. Minimally elevated troponin 4. COPD/obstructive sleep apnea 5. Chronic Anemia 6. Hypertension 7. Type 2 diabetes 8. Dementia/Frailty Patient converted to sinus rhythm overnight. Unclear how much AF with RVR contributed to presenting symptoms. Reasonable to continue rhythm control for at least the short term. Well perfused with minimal congestion on exam today. -- can stop IV amio and transition to PO amio 200mg daily -- continue xarelto -- can resume PO lasix Will follow Admission and Anticipated Discharge Date Admission Date: March 27, 2020 Subjective Breathing improved from admission. Denies chest pain or palpitation. Converted to sinus rhythm last night. Sinus today in 70s. Review of Systems Review of Systems: All systems reviewed & are unremarkable except as noted in HPI & below Physical Exam Physical Exam: General: Comfortable, no acute distress, frail Eyes: Sclerae anicteric Neck: No JVD. Lungs: No crackles. Minimal wheezing. Decreased minimally at bases. Prolonged expiratory Cardiac: Regular rate and rhythm, no murmurs Abdomen: Soft, nontender Neuro/Psych: Alert oriented, hard of hearing Extremities/Vascular: -- 2+ radial bilaterally -- Trace edema Results & Data ([facility]) Vital Signs (Past 12 Hours) Vital Signs Temp Pulse Pulse Resp BP BP Pulse Ox 03/30/20 15:59 97.3 F L 71 18 118/67 97 03/30/20 14:51 84 18 96 03/30/20 11:16 97.5 F L 68 19 122/78 98 03/30/20 08:00 65 03/30/20 07:53 98.1 F 64 19 122/77 98 03/30/20 06:44 68 20 98 PG Care Time/CCT Total # of Minutes Spent Total Time Spent with Patient: Total time spent is greater than 50% in coordination of care (as documented) at patient's floor/unit and/or counseling patient: Coding Level of Care Code 07033 Subseq Hosp Care Lvl 3 Diagnoses Atrial fibrillation I48.91 Atrial fibrillation type: unspecified (1) Atrial fibrillation Atrial fibrillation type: unspecified Qualified Code(s): I48.91 - Unspecified atrial fibrillation
[2020-03-30] MEDS: FUROSEMIDE 20 MG TAB PO SCH (18:40)
[2020-03-30] MEDS: AMIODARONE 200 MG TAB PO SCH (18:41)
[2020-03-30] MEDS: SIMVASTATIN 40 MG TAB PO SCH (20:37)
[2020-03-30] MEDS: RIVAROXABAN 20 MG TAB PO SCH (20:37)
[2020-03-30] MEDS: INSULIN GLARGINE SOLOSTAR 100 UNITS/ML 3 ML PEN SC SCH (20:38)
[2020-03-31] MEDS ORDERED: INSULIN ASPART 100 UNITS/ML 3 ML PEN SC SCH
[2020-03-31] MEDS: LEVOTHYROXINE SODIUM 75 MCG TABLET PO SCH (05:56)
[2020-03-31] MEDS: IPRATROPIUM BROMIDE NEB SOLN 0.02% 2.5 ML VIAL NEB SCH (07:05)
[2020-03-31 07:48] LABS: Hematocrit (blood only) 34.7 % (42-52); Hemoglobin 10.6 g/dL (14.0-18.0); Immature Granulocytes # (auto) 0.04 K/uL (0.00-0.02); Immature Granulocytes % (auto) 0.4 %; Lymphocytes # (auto) 2.21 K/uL (1.2-3.4); Lymphocytes % (auto) 22.8 %; Mean Corpuscular Hemoglobin 27.8 pg (25-34); Mean Corpuscular Hgb Conc 30.5 g/dL (32-36); Mean Corpuscular Volume 91.1 fL (80-100); Mean Platelet Volume 10.7 fL (7.4-10.4); Monocytes # (auto) 0.99 K/uL (0.11-0.59); Monocytes % (auto) 10.2 %; Neutrophils # (auto) 6.47 K/uL (1.4-6.5); Neutrophils % (auto) 66.6 %; Platelet Count 207 K/uL (130-400); RDW Coefficient of Variation 15.4 % (11.5-14.5); Red Blood Count 3.81 M/uL (4.7-6.1); White Blood Count 9.71 K/uL (4.8-10.8)
--- NOTE | 2020-03-31 07:52 | Hospitalist Progress Note ---
Date of Service March 31, 2020 Assessment & Plan (1) SDAT (senile dementia of Alzheimer's type): Mr. Gibson is a 80 yo male with h/o atrial fibrillation, congestive heart failure, diabetes, who was admitted on 03/27/2020 for pneumonia and a-fib with RVR. He was started on IV Zosyn for PNA and started on Diltiazem/Amiodarone drips with continued Xarelto for a-fib w/ RVR. Developed COPD exacerbation after admission and was started on ipratropium nebs and IV Solumedrol. Community-Acquired Pneumonia - MRSA nare negative - pulmonary exam improving - Continue Augmentin PO x7 days, first dose yesterday - Aspiration precautions: minced/moist diet per ST recommendations Afib w/ RVR - likely to initially be physiologic tachycardia in response to acute illness that converted to Afib w RVR - Continue rivaroxaban 20mg daily - Greatly improved with HR 60s-70s, converted to NSR for ~36 hours now, and improved respiratory status - PRN Lopressor 5 mg IV for HR>120 bpm - Continue PO Amiodarone 300 mg BID per Cardiology recommendations - re-start home dose Lasix 20 mg PO daily per Cardiology recommendations - Optimize electrolytes - BMP daily COPD exacerbation on Chronic COPD - increased bilateral expiratory wheezes and work of breathing since admission likely secondary to acute respiratory infection - patient has improved respiratory status and continues to have no wheezes on exam - transition to Prednisone PO 12-day taper starting tomorrow: 60 mg PO x4 days, 40 mg PO x4 days, 20 mg PO x4 days - Continue Ipratropium nebs Q8H - Continue to wean supplemental oxygen as tolerated, currently doing well at 2L NC. - Hold home inhaler and prednisone for now Chronic diastolic CHF (congestive heart failure): - Lasix 20mg daily re-started with first dose yesterday, per Cardiology recommendations BNP elevated 4275 but no JVD, bilateral crackles, LE edema on exam - CXR/Chest CT more consistent with PNA - Echo 11/2017: normal LV size, mi concentric LVH, Grade II diastolic dysfun ction, normal RV size & function, LVEF 60-65%. - Continue to monitor respiratory status and serial physical exams for signs of CHF exacerbation Abdominal Distension, resolved: - secondary to fecal impaction vs pulmonary hyperinflation - KUB showed ileus with partial small bowel obstruction - doing well with no abdominal pain and decreased distension on exam - advance back to minced/moist diet, per aspiration precautions - repeat KUB showed resolved distension - Miralax PRN for constipation Type 2 DM - improved glucose to low 100s with insulin gtt - Per pharmacy recommendations: d/c insulin drip - Hold [employer] glimepiride, glargine 45 sq daily, metformin while inpatient - Glargine 30U QHS, SSI GOAL 110-160 - BSG AC/HS - BMP daily as stated above Elevated troponin, resolving 0.199 --> .127, suspect secondary to demand ischemia EKG afib RVR Urinary Retention, resolved - s/p aldana placement on 03/28 with adequate UOP - possible secondary to BPH Obstructive sleep apnea: - Continue CPAP Depression: - Continue Lexapro 10mg qAM Hypothyroidism - Continue Synthroid 75mcg daily GERD - Continue Protonix 40mg PO daily while inpatient HLD - Continue simvastatin 80mg daily HTN - Hypotensive at admit, held antihypertensives FENGI: Diabetic/Heart Healthy, minced/moist per aspiration precautions DVT ppx: home dose Xarelto 20 mg daily Code Status: DNI, but OK with shock/meds/CPR Dispo: Med tele, for now plan is for patient to be discharged home as his assists with some ADLs and all iADLs, CM consulted and 2-step ordered (2) Poorly controlled diabetes mellitus: (3) Diabetes mellitus type 2 in nonobese: (4) Coronary arteriosclerosis: (5) Iron deficiency anemia: (6) Chronic diastolic CHF (congestive heart failure): (7) Mitral regurgitation: (8) Left ventricular outflow tract obstruction: (9) Chronic obstructive pulmonary disease: Admission and Anticipated Discharge Date Admission Date: March 27, 2020 Subjective No acute events overnight. No PRN Lopressor required for almost 2 days. Cloudy u rine with decreased urine output out of aldana per nursing. BMx1 yesterday. Vital signs stable with pulse 60s-70s. Review of Systems Constitutional: as per Subjective / HPI Respiratory: as per Subjective / HPI Cardiovascular: as per Subjective / HPI; no palpitations Gastrointestinal: as per Subjective / HPI Genitourinary: + as per Subjective / HPI and + difficulty urinating Physical Exam Constitutional: WD/WN, vitals as above no acute distress Eyes: PERRL, conjunctivae normal, anicteric sclerae Neck: trachea midline, no thyromegaly normal visual inspection Respiratory: normal respiratory effort; no labored breathing Auscultation: + rhonchi (scattered throughout lung art - less audible and improved) Cardiovascular: Heart Sounds: no murmur Vessels: no JVD Extremities: no edema Gastrointestinal (Abdomen): Inspection/Auscultation: + abdomen distended and normal bowel sounds Percussion/Palpation: abdomen nontender and no guarding Musculoskeletal: no cyanosis or clubbing, extremities motor strength 5/5 Skin: no rashes, warm and dry Psychiatric: A+Ox3, euthymic affect Lymphatic: no cervical lymphadenopathy Results & Data Results & Data ([facility]) Vital Signs (Past 12 Hours) Vital Signs Temp Pulse Pulse Resp BP BP Pulse Ox 03/31/20 07:12 36.4 C L 64 18 131/88 100 03/31/20 07:06 86 16 98 03/31/20 03:35 36.4 C L 62 16 130/72 98 03/31/20 00:00 62 03/30/20 23:48 36.2 C L 66 18 130/76 98 03/30/20 23:07 64 16 97 03/30/20 19:48 36.3 C L 66 18 125/74 97
[2020-03-31 08:19] LABS: BUN Creatinine Ratio 26.4 (10-20); Calcium 7.9 mg/dl (8.5-10.1); Creatinine Clr Calc Pharmacy 47.4 ml/min; Est GFR (African American) 57.8; Est GFR (Non-African American) 49.9; Magnesium 2.8 mg/dl (1.8-2.4); Potassium 4.1 mmol/L (3.5-5.1)
[2020-03-31] MEDS: CYANOCOBALAMIN 500 MCG TABLET (VITAMIN B-12) PO SCH (08:38)
[2020-03-31] MEDS: AMOXICILLIN/CLAVULANATE 875 MG TAB PO SCH (08:38)
[2020-03-31] MEDS: AMIODARONE 200 MG TAB PO SCH (08:38)
[2020-03-31] MEDS: FUROSEMIDE 20 MG TAB PO SCH (08:39)
[2020-03-31] MEDS: PANTOprazole 40 MG TAB PO SCH (08:39)
[2020-03-31] MEDS: ESCITALOPRAM OXALATE 10 MG TAB PO SCH (08:39)
[2020-03-31] MEDS: INSULIN GLARGINE SOLOSTAR 100 UNITS/ML 3 ML PEN SC SCH (08:40)
[2020-03-31] MEDS: INSULIN ASPART 100 UNITS/ML 3 ML PEN SC SCH ×2 (08:41→12:10)
--- NOTE | 2020-03-31 08:48 | Cardiology Progress Note ---
Date of Service March 31, 2020 Assessment & Plan (1) Atrial fibrillation: --post aflutter ablation 09/2018. On chronic anticoagulation with Xarelto 2. Community acquired PNA 3. Minimally elevated troponin 4. COPD/obstructive sleep apnea 5. Chronic Anemia 6. Hypertension 7. Type 2 diabetes 8. Dementia/Frailty Remains in sinus rhythm Breathing improved Well perfused with mild congestion on exam today --Continue amiodarone 200 mg daily. -- continue xarelto --Continue home p.o. Lasix Follow-up with me in 2 weeks post discharge. Admission and Anticipated Discharge Date Admission Date: March 27, 2020 Subjective No complaints this morning. States breathing easier. Denies any chest pain. No palpitations. Telemetry reviewedremains in sinus rhythm. Review of Systems Review of Systems: All systems reviewed & are unremarkable except as noted in HPI & below Physical Exam Physical Exam: General: Comfortable, no acute distress, frail Eyes: Sclerae anicteric Neck: No JVD. Lungs: No crackles. Minimal wheezing. Decreased minimally at bases. Prolonged expiratory, rare rhonchi Cardiac: Regular rate and rhythm, no murmurs Abdomen: Soft, nontender Neuro/Psych: Alert oriented, hard of hearing Extremities/Vascular: -- 2+ radial bilaterally -- Trace to 1+ bilateral edema Results & Data ([facility]) Vital Signs (Past 12 Hours) Vital Signs Temp Pulse Pulse Resp BP BP Pulse Ox 03/31/20 07:30 59 L 03/31/20 07:12 97.5 F L 64 18 131/88 100 03/31/20 07:06 86 16 98 03/31/20 03:35 97.5 F L 62 16 130/72 98 03/31/20 00:00 62 03/30/20 23:48 97.2 F L 66 18 130/76 98 03/30/20 23:07 64 16 97 PG Care Time/CCT Total # of Minutes Spent Total Time Spent with Patient: Total time spent is greater than 50% in coordination of care (as documented) at patient's floor/unit and/or counseling patient: Coding Level of Care Code 56496 Subseq Hosp Care Lvl 2 Diagnoses Atrial fibrillation I48.91 Atrial fibrillation type: unspecified (1) Atrial fibrillation Atrial fibrillation type: unspecified Qualified Code(s): I48.91 - Unspecified atrial fibrillation
[2020-03-31] MEDS ORDERED: predniSONE 20 MG TAB PO SCH (09:00)
[2020-03-31] MEDS ORDERED: MAGNESIUM OXIDE 400 MG TAB PO SCH (09:00)
--- NOTE | 2020-03-31 17:27 | Discharge Summary ---
Date of Service March 31, 2020 Admission HPI Per Admitting Provider Chief Complaint: Mr. Gibson is an 80yo M who presented to the ED for difficulty breathing and progressive shortness of breath. His shortness of breath developed and has been worsening for 2-3 days, and acutely worsened in the last 24 hours. His shortness of breath is worsened with exertion, slightly improved with rest. Denies chest pain/chest pressure. He has no leg swelling. No syncope/presyncope. On admission to the ED he was showing signs of respiratory distress and was found to be in Afib RVR with rate of ~165. He received CPAP and fluid boluses with mild improvement, but continued to be tachycardic. At time of assessment he is not symptomatic, reports he feels better than when he came in. Denies chest pain, chest pressure, and shortness of breath. He is not lightheaded or dizzy. He endorses intermittent dizziness/chest pain in the last week, but which is not associated with exercise and he is not sure of any exacerbating or remitting factors. Denies palpitations. Admission Exam Per Admitting Provider General: A&O to name and place. NAD. Cooperative. HEENT: Atraumatic, normocephalic. Pulm: CTAB A&P. -wheezes, -rales, -rhonchi. Symmetrical chest rise. No increase work of breathing. No respiratory distress. Cardiac: tachycardic, irregular. Radial pulses intact and symmetrical. Abdominal: Distended, with typani to percussion. NT. Extremities: Warm, pedal edema bilaterally. Pt pulses intact. Sensation to soft touch intact in hallux bilaterally. Principal Diagnosis Pneumonia A-fib with RVR COPD Exacerbation Discharge Exam Constitutional: WD/WN, vitals as above no acute distress Eyes: PERRL, conjunctivae normal, anicteric sclerae Neck: trachea midline, no thyromegaly normal visual inspection Respiratory: normal respiratory effort; no labored breathing Auscultation: + rhonchi (scattered throughout lung art - less audible and improved) Cardiovascular: Heart Sounds: no murmur Vessels: no JVD Extremities: non- pitting edema to ankles bilaterally Gastrointestinal (Abdomen): Inspection/Auscultation: mild abdominal distension and normal bowel sounds Percussion/Palpation: abdomen nontender and no guarding Musculoskeletal: no cyanosis or clubbing, extremities motor strength 5/5 Skin: ecchymosis on right forearm - stable, skin is warm with no other rashes Psychiatric: A+Ox3, euthymic affect Lymphatic: no cervical lymphadenopathy Discharge Data Allergies Allergy/AdvReac Type Severity Reaction Status Date / Time moxifloxacin Allergy Severe throat Verified 03/27/20 22:55 swelling ofloxacin Allergy Severe SWELLING Verified 03/27/20 22:55 AROUND FACE Quinolones Allergy Severe ANAPHYLAXIS Verified 03/27/20 22:55 formoterol Allergy Intermediate RASH Verified 03/27/20 22:56 Sulfa (Sulfonamide Allergy Intermediate severe red Verified 03/27/20 22:56 Antibiotics) rash Consultations 03/27/20 21:52 ED Decision to Admit Stat 03/28/20 08:46 Consult Cardiology Routine 03/31/20 07:57 Consult Case Management - Discharge Planning Stat Ordered Studies 03/27/20 23:11 CT angio chest PE protocol Urgent Hospital Course (1) Pneumonia: Mr. Gibson is a 80 yo male with h/o atrial fibrillation, congestive heart failure, diabetes, who was admitted on 03/27/2020 for pneumonia and a-fib with RVR. He was started on IV Zosyn for PNA, which was transitioned to Augmentin 875/125 PO BID x7 days starting on 03/30. He was started on Diltiazem/Amiodarone drips with continued Xarelto for a-fib w/ RVR; the Diltiazem drip was discontinued on 03/29 and he did well with converted rhythm to NSR and [id number]. The Amiodarone drip was transitioned to Amiodarone 200 mg PO daily starting on 03/30. He also developed COPD exacerbation after admission and was started on ipratropium nebs and IV Solumedrol; he was transitioned to Prednisone 12-day taper (60 mg, 40 mg, 20 mg) starting on 03/30. He was discharged in fair, stable condition on 03/31/2020 and will continue Augmentin, Amiodarone and Prednisone taper at home. His will continue to help with all iADLs at home. He will follow up with his Lagging Machine Operator for a-fib follow-up and will follow up with his PCP. (2) Atrial fibrillation with rapid ventricular response: (3) Chronic obstructive pulmonary disease: Total Time Total Time Spent Total Time Spent (In Minutes): 30 minutes Total Time Includes: Examination of the Patient, Discharge Planning and Medication Reconciliation Discharge Plan Discharge Items Patient Disposition: Home - Self-Care Reason For Visit: SOB, RVR Discharge Diagnosis: Atrial Fibrillation Pneumonia COPD Exacerbation, resolving Condition on Discharge: Fair Activity: Per Instructions section Non-emergency contact: Primary Care Provider and Lagging Machine Operator Call non-emergency contact if: you have any medication questions, your symptoms worsen, you have a fever and your temperature is above 101 Follow-up/Referrals: Howard Gunderson MD [Primary Care Provider] - 04/07/20 11:00 am (DR ESPINOZA APT IS Sunday TA 09:30 AM) Diet: Carb Consistent or DM2, Heart Healthy and Other - See Diet Comment Diet Comment: minced, moist foods, avoid tough solid foods such as meat/chicken Addtl Attending Provider Instructions: You were admitted to [facility] on 03/28/2020 for pneumonia, atrial fibrillation with rapid ventricular response, and a COPD exacerbation. You were initially having a hard time breathing, and you had a very fast heart rate. You were started on IV Antibiotics for your pneumonia (Zosyn IV), which was then transitioned to oral antibiotics (Augmentin). You should continue taking the Augmentin twice a day for a total of 7 days. You were also treated with to IV medications for your atrial fibrillation, and you were then transitioned to an oral medication called Amiodarone, per Cardiology re commendations. You should continue to take the Amiodarone 200 mg oral medication once a day for your atrial fibrillation, and you should follow up with Dr. Espinoza, your blade sharpener. You were also started on IV Steroids and nebulized inhalers for your COPD exacerbation, and you were transitioned to an oral steroid, called Prednisone. You should continue to take Prednisone for a total of 12 days. You should take 60 mg (3 pills) per day for 3 more days, then 40 mg (2 pills) per day for 4 days, and finally 20 mg (1 pill) per day for 4 days. You are being discharged to your home on 03/31/2020 in a much improved condition. Pending Studies at Discharge: No Stand-Alone Forms: [facility], Smoking Cessation Medications and DC Order Prescriptions: New amiodarone 200 mg Tablet 200 mg PO QAM 30 Days Qty: 30 RF: 0 amoxicillin-pot clavulanate [Augmentin] 875-125 mg Tablet 1 tab PO BIDM 7 Days Qty: 14 RF: 0 prednisone 20 mg tablet 20 mg PO DAILY 11 Days Qty: 11 RF: 0 prednisone 20 mg tablet 20 mg PO DAILY Qty: 20 RF: 0 amiodarone 200 mg tablet 200 mg PO DAILY Qty: 30 RF: 0 amoxicillin-pot clavulanate [Augmentin] 875-125 mg tablet 1 tab PO BID Qty: 14 RF: 0 Continued metformin 1,000 mg tablet 1,000 mg PO BID Qty: 180 RF: 3 escitalopram oxalate 10 mg tablet 10 mg PO QAM Qty: 90 RF: 1 Xarelto 20 mg tablet 20 mg PO QPM Qty: 90 RF: 3 albuterol sulfate 2.5 mg /3 mL (0.083 %) solution for nebulization 2.5 mg INH Q4H PRN (Reason: shortness of breath or wheezing) Qty: 360 RF: 5 [id number] [Trelegy Ellipta] 100-62.5-25 mcg blister with device 1 inh inhalation DAILY RF: 0 furosemide [Lasix] 20 mg tablet 20 mg PO BID Qty: 180 RF: 3 simvastatin 80 mg tablet 40 mg PO HS Qty: 90 RF: 3 magnesium oxide 500 mg tablet 500 mg PO BID RF: 0 glucosamine-chondroitin 250-200 mg tablet 1 tab PO BID RF: 0 albuterol sulfate 90 mcg/actuation HFA aerosol inhaler 2 puffs INH Q4H PRN (Reason: Shortness Of Breath) Qty: 8.5 RF: 11 omeprazole 40 mg capsule,delayed release(DR/EC) 40 mg PO DAILY Qty: 90 RF: 3 glimepiride 2 mg tablet 2 mg PO DAILY Qty: 90 RF: 3 Lantus Solostar U-100 Insulin 100 unit/mL (3 mL) insulin pen 45 units SC DAILY Qty: 15 RF: 5 multivitamin with minerals [Multiple Vitamin-Minerals] Tablet 1 tab PO DAILY RF: 0 levothyroxine 75 mcg tablet 75 mcg PO Q2D RF: 0 levothyroxine 75 mcg Tablet 37.5 mcg PO Q2D RF: 0 prednisone 10 mg tablet 10 mg PO DAILY Qty: 12 RF: 0 cyanocobalamin (vitamin B-12) [Vitamin B-12] 500 mcg Tablet 500 mcg PO DAILY RF: 0 Discharge Orders: Discharge Order (Routine); Ordered 03/31/20 Ordered By: Daivd Hoff/Other Patient Handouts: Managing Type 2 Diabetes Admission Data Admit Date/Time: 03/27/20 23:44 Attending Provider: Howard Rock Admit Provider: Timothy Christie Primary Care Provider: Howard Gunderson Other Providers: Smooth Nunez ; Howard Sorenson Other Interventions: Discharge Summary Assessment (RN) Last Done: 03/31/20 13:10 Supervising Physician Co-Signing Physician Notes Attending attestation Pt seen and examined in concert with Dr. Ceja. In agreement with the documented findings as noted in the resident documentation with any exceptions or additions as noted here. Improved abdominal distention subjectively with no diminished appetite or nausea and regular, brown bowel movement. On examination, S1/S2 IRR/IRR, no MCG. CTAB though mildly decreased. Abd NT/ND BS+ve with improved tension/distension. Intermittent constipation with abd distention on KUB - resolved - continue minced, moist diet on discharge AF w/ RVR, elevated trop and chronic diastolic CHF - cardiology consultation - continue PO amiodarone, follow up with cardiology COPD exacerbation - complete PO prednisone taper, monitor respiratory change and encourage neb use DMII - tolerating basal/bolus and monitor glucose Else see resident documentation as noted. Greater than 30 minutes of attending time were spent preparing and completing the discharge of this patient. Resident Activity Tracking Resident Involvement: Resident Care Provided Care Provided: Adult Hospital Medicine
== END 2020-03-31 14:12 | disposition home or self-care (01) | DRG 190 ==
LOC: ED 20:16 → 2S 23:44 → SUATTDRO 23:44 → 2S 03-28 00:11

== ENCOUNTER 2020-05-03 10:43 | Observation (INO) ==
--- NOTE | 2020-05-03 10:59 | Emergency Department Note ---
History of Present Illness General Chief Complaint: Abdominal Pain Stated Complaint: abd pain Time Seen by Provider: 05/03/20 10:46 Source: patient Mode of arrival: ambulatory Limitations: no limitations History of Present Illness Provider Complaint: abdominal pain This is a 80-year-old male who presents to the ED with a chief complaint of abdominal pain for the past 2 days. He states that it comes and goes. It is a crampy type pain. He states that he currently does not have a but having earlier today. He reports a little diarrhea but no nausea or vomiting. He has not had any fevers. Denies any shortness of breath or chest pains. When he points the pain, he points to the general abdominal region from the epigastric area to the suprapubic area. He has no other complaints at this time. He has a history of A. fib and is on rivaroxaban. Home Medications Home Medications Medication Instructions Recorded Confirmed Type metformin 1,000 mg tablet 1,000 mg PO BID #180 tab 02/24/19 05/03/20 Rx cyanocobalamin (vitamin B-12) 500 mcg PO DAILY 05/02/19 05/03/20 History [Vitamin B-12] magnesium oxide 500 mg tablet 500 mg PO BID tab 05/07/19 05/03/20 History escitalopram oxalate 10 mg tablet 10 mg PO QAM #90 tab 11/18/19 05/03/20 Rx rivaroxaban 20 mg tablet 20 mg PO QPM #90 tab 11/20/19 05/03/20 Rx albuterol sulfate 2.5 mg INH Q4H PRN #360 ml 11/25/19 05/03/20 Rx albuterol sulfate 90 mcg/actuation 2 puffs INH Q4H PRN #8.5 gm 02/11/20 05/03/20 Rx aerosol inhaler glimepiride 2 mg tablet 2 mg PO DAILY #90 tab 02/11/20 05/03/20 Rx simvastatin 80 mg tablet 40 mg PO HS #90 tab 03/03/20 05/03/20 Rx levothyroxine 37.5 mcg PO Q2D 03/27/20 05/03/20 History multivitamin with minerals 1 tab PO DAILY 03/27/20 05/03/20 History [Multiple Vitamin-Minerals] amiodarone 200 mg tablet 200 mg PO QAM 90 Days #90 tab 04/08/20 05/03/20 Rx furosemide 20 mg tablet See Rx Instructions .ROUTE 04/08/20 05/03/20 Rx .COMPLEX #90 tab omeprazole 40 mg capsule,delayed 40 mg PO DAILY #90 cap 04/21/20 05/03/20 Rx release Lantus Solostar U-100 Insulin 60 units SC DAILY 05/03/20 05/03/20 History Lift Chair #1 ea 05/03/20 Rx Lift Chair #1 ea 05/03/20 Rx ascorbic acid (vitamin C) [Vitamin 500 mg PO DAILY 05/03/20 05/03/20 History C] ferrous sulfate [iron] 325 mg PO QID 05/03/20 05/03/20 History prednisone 40 mg PO DAILY 05/03/20 05/03/20 History Allergies Allergy/AdvReac Type Severity Reaction Status Date / Time moxifloxacin Allergy Severe throat Verified 05/03/20 11:16 swelling ofloxacin Allergy Severe SWELLING Verified 05/03/20 11:16 AROUND FACE Quinolones Allergy Severe ANAPHYLAXIS Verified 05/03/20 11:16 formoterol Allergy Intermediate RASH Verified 05/03/20 11:16 Sulfa (Sulfonamide Allergy Intermediate severe red Verified 05/03/20 11:16 Antibiotics) rash Past Med/Surg History Medical History Anxiety Atrial fibrillation with rapid ventricular response Atrial flutter on xarelto Chronic diastolic CHF (congestive heart failure) Chronic steroid use Depression GERD (gastroesophageal reflux disease) Heart disease IRREGULAR RHYTHYM HLD (hyperlipidemia) HTN (hypertension) Hypothyroidism Iron deficiency anemia Kidney stones Left ventricular outflow tract obstruction 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 Mild HOCM (hypertrophic obstructive cardiomyopathy) Nephrolithiasis Obstructive sleep apnea On anticoagulant therapy xarelto daily On home oxygen therapy 2L N/C at hs Organic impotence Pericardial effusion Pleural effusion HX OF Prostate cancer Steroid-induced osteopenia Surgical History H/O cystoscopy "History of Cystoscopy With Insertion Of Ureteral Stent" on CCD H/O tooth extraction History of bronchoscopy History of cardiac radiofrequency ablation History of prostatectomy History of repair of right rotator cuff Hx of colonoscopy Hx of esophagogastroduodenoscopy Family History Sister Ovarian cancer Mother Skin cancer Myocardial infarction Grandfather Myocardial infarction Other No family history of adverse response to anesthesia Stroke Denies family history of Prostate cancer Breast cancer Colorectal cancer Social History Smoking Status: Never smoker Second Hand Exposure: No; Hx Alcohol Use: No Hx Substance Use: No Preferred Language: [place] Communication Ability: Effective Visual Impairment: No Limitations Hearing Ability: 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 Beliefs That Will Affect Care: None marital status: Current Living Situation: Spouse current occupational status: retired Feels Safe at Home: Yes Childhood Exposure to Second-Hand Smoke: No caffeine: Yes during the past year weight has: remained stable Dental Care, Regularly: No Physical Activity Frequency: Does not Exercise Seatbelt Use: always Sunscreen Use: No Review of Systems A total of 10 systems reviewed and were otherwise negative Physical Exam Vital Signs: Vital Signs - 24 hr 05/03/20 10:52 05/03/20 10:53 05/03/20 11:01 Temperature 37.3 C Temperature Source Oral Pulse Rate 83 80 Pulse Rate from Sp O2 Sensor 78 Respiratory Rate 18 14 Respiratory Depth Normal Blood Pressure 140/70 130/64 Blood Pressure Randi n 93 73 Pulse Oximetry 96 96 96 Oxygen Delivery Me thod Room Air Room Air Room Air Sepsis Recent Feve r Within 48 Hours No Sepsis New/Unexpla ined Change in Men vida Status N/A Sepsis Action Take n by Nursing No Action Required 05/03/20 11:30 05/03/20 12:00 05/03/20 12:01 Temperature Temperature Source Pulse Rate 80 78 80 Pulse Rate from Sp O2 Sensor 81 79 78 Respiratory Rate 17 19 16 Respiratory Depth Blood Pressure 135/69 145/67 H Blood Pressure Randi n 107 93 Pulse Oximetry 95 95 94 Oxygen Delivery Me thod Room Air Room Air Sepsis Recent Feve r Within 48 Hours Sepsis New/Unexpla ined Change in Men vida Status Sepsis Action Take n by Nursing 05/03/20 12:30 05/03/20 13:00 05/03/20 13:30 Temperature Temperature Source Pulse Rate 79 81 78 Pulse Rate from Sp O2 Sensor 78 81 78 Respiratory Rate 16 19 22 Respiratory Depth Blood Pressure 138/79 130/68 138/70 Blood Pressure Randi n 95 86 91 Pulse Oximetry 95 95 98 Oxygen Delivery Me thod Room Air Room Air Room Air Sepsis Recent Feve r Within 48 Hours Sepsis New/Unexpla ined Change in Men vida Status Sepsis Action Take n by Nursing 05/03/20 14:05 Temperature Temperature Source Pulse Rate 78 Pulse Rate from Sp O2 Sensor 78 Respiratory Rate 17 Respiratory Depth Blood Pressure 148/78 H Blood Pressure Randi n 99 Pulse Oximetry 97 Oxygen Delivery Me thod Room Air Sepsis Recent Feve r Within 48 Hours Sepsis New/Unexpla ined Change in Men vida Status Sepsis Action Take n by Nursing Physical Exam: CONSTITUTIONAL/VITAL SIGNS: Reviewed / noted above. GENERAL: Non-toxic in appearance. INTEGUMENTARY: Warm, dry, and [place]. HEAD: Normocephalic. EYES: without scleral icterus or trauma. ENT/OROPHARYNX: clear and moist. LYMPHADENOPATHY/NECK: Is supple without lymphadenopathy or meningismus. RESPIRATORY: Lungs clear and equal. CARDIOVASCULAR: Regular rate and rhythm. GI/ABDOMEN: Soft and mildly tender in left lower quadrant. No organomegaly or pulsatile mass. No rebound or guarding. Normal bowel sounds. EXTREMITIES: Warm and well perfused. BACK: No CVA tenderness. NEUROLOGICAL: Intact without focal deficits. PSYCHIATRIC: normal affect. MUSCULOSKELETAL: Normally developed with good muscle tone. TRIAGE NURSING DOCUMENTATION REVIEWED. Course Administered Medications Discontinued Medications Sodium Chloride (Nss) 500 mls @ 999 mls/hr IV .Q31M MIQUEL Stop: 05/03/20 11:30 Last Infusion: 05/03/20 12:13 Dose: 0 mls/hr Documented by: [id number] Admin: 05/03/20 11:18 Dose: 999 mls/hr Documented by: [id number] Ioversol (Ioversol 100ml) 94 ml IV ONCE ONE Stop: 05/03/20 13:56 Last Admin: 05/03/20 13:56 Dose: 94 ml Documented by: [id number] Medical Decision Making Differential Diagnosis Differential considered: pancreatitis, hepatitis, acute cholecystitis, AAA, UTI, pyelonephritis, kidney stones, appendicitis, diverticulitis, shingles, bowel obstruction, mesenteric ischemia, intussusception,hernia, testicular torsion. Medical Records Attestation: I reviewed the patient's medical records. Home Medications Current Medication List: was personally reviewed by me Laboratory Data Attestation: I reviewed the patient's lab results. Result diagrams: 05/03/20 10:55 05/03/20 10:55 Lab Results 05/03/20 05/03/20 05/03/20 Range/Units 10:55 10:55 10:55 WBC 15.67 H (4.8-10.8) K/uL RBC 4.61 L (4.7-6.1) M/uL Hgb 14.1 (14.0-18.0) g/dL Hct 42.3 (42-52) % MCV 91.8 (80-100) fL MCH 30.6 (25-34) pg MCHC 33.3 (32-36) g/dL RDW Std Deviation 50.0 H (36.4-46.3) fL RDW Coeff of Ruddy 15.0 H (11.5-14.5) % Plt Count 212 (130-400) K/uL MPV 10.0 (7.4-10.4) fL Absolute Nucleated RBC 0.02 H (0-0) K/uL Nucleated RBC % (auto) 0.1 % Neutrophils % (Manual) 40.0 % Lymphocytes % (Manual) 11.3 % Monocytes % (Manual) 5.2 % Eosinophils % (Manual) 0.9 % Myelocytes % (Man) 2.6 % Neutrophils # (Manual) 6.27 (1.4-6.5) K/uL Total Absolute Neuts 6.27 (1.4-6.5) K/uL Lymphocytes # (Manual) 1.77 (1.2-3.4) K/uL Total Abs Lymphocytes 8.04 H (1.2-3.4) K/uL Monocytes # (Manual) 0.81 H (0.11-0.59) K/uL Eosinophils # (Manual) 0.14 (0-0.5) K/uL Myelocytes # (Manual) 0.41 H (0-0) K/uL Large Granular Lymphs 40.0 % # Lrg Granular Lymphs 6.27 K/uL Blood Smear Review Sodium 138 (136-145) mmol/L Potassium (3.5-5.1) mmol/L Chloride 102 (98-107) mmol/L Carbon Dioxide 30 (21-32) mmol/L Anion Gap 6.0 (3-11) BUN 22 H (7-18) mg/dl Creatinine 1.21 (0.6-1.4) mg/dl Est Cr Clr Drug Dosing 51.7 ml/min Est GFR ( Amer) 64.2 Est GFR (Non-Af Amer) 55.4 BUN/Creatinine Ratio 17.8 (10-20) Glucose 178 H (70-99) mg/dl Lactate 2.1 H* (0.4-2.0) mmol/L Calcium 9.6 (8.5-10.1) mg/dl Total Bilirubin 0.6 (0.2-1) mg/dl AST (15-37) U/L ALT 24 (12-78) U/L Alkaline Phosphatase 69 (45-117) U/L Troponin I 0.116 H* (0-0.045) ng/ml Total Protein 6.5 (6.4-8.2) gm/dl Albumin 2.9 L (3.4-5.0) gm/dl Globulin 3.6 (2.5-4.0) gm/dl Albumin/Globulin Ratio 0.8 L (0.9-2) Lipase 170 (73-393) U/L Imaging Data Radiologist's Impression: XR chest 1V portable CLINICAL HISTORY: Pain, radiating to the abdomen COMPARISON STUDY: 820 FINDINGS: The heart is enlarged. There is no focal pulmonary consolidation. There is stable basilar interstitial thickening. The right midlung zone airspace opacity has resolved. There is no failure. There is chronic blunting of the right lateral costophrenic angle. There is no pneumoperitoneum IMPRESSION: 1. Cardiomegaly and mild chronic basilar interstitial thickening 2. No evidence of lobar consolidation CT scan of the abdomen and pelvis:IMPRESSION: 1. There are no acute infectious or inflammatory findings in the abdomen or pelvis. 2. Cardiomegaly and trace right pleural effusion. This is unchanged from previous. 3. Additional findings as above. ECG Data Attestation: I personally reviewed and interpreted this ECG as follows: Indication: abdominal pain Rate (beats per minute): 83 Rhythm: sinus rhythm Findings: + 1st degree AV block and + RBBB; no PVC and no ST elevation MDM Narrative The patient presents with some abdominal pain that is intermittent. Details listed above. His physical exam reveals that he has a mild tenderness in the left lower quadrant. He states that he is not having the abdominal pain right now. He describes it as a crampy intermittent pain. He has had a little diarrhea. His bowel sounds are slightly hyperactive on exam. He is in no distress. His vital signs are stable. A twelve-lead EKG shows a sinus rhythm at a rate of 83 with a first-degree AV block and right bundle branch block. No acute injury. The patient's white blood cell count is slightly elevated 15.6. Troponin is elevated at 0.116. Lactic acid is 2.1. Abdominal CT was negative for acute process. The patient will be seen by the hospitalist for further inpatient evaluation and care for his elevated troponin and symptoms. Impression & Plan Abdominal pain, acute, epigastric, Elevated troponin Discharge Plan Visit Data Chief Complaint: Abdominal Pain Stated Complaint: abd pain ED Provider: Chaka Martínez Discharge Problem: Abdominal pain, acute, epigastric, Elevated troponin Patient Disposition: Being Evaluated by Hospitalist Forms Stand Alone Forms: [facility] Prescriptions Prescriptions: No Action metformin 1,000 mg tablet 1,000 mg PO BID Qty: 180 RF: 3 escitalopram oxalate 10 mg tablet 10 mg PO QAM Qty: 90 RF: 1 Xarelto 20 mg tablet 20 mg PO QPM Qty: 90 RF: 3 albuterol sulfate 2.5 mg /3 mL (0.083 %) solution for nebulization 2.5 mg INH Q4H PRN (Reason: shortness of breath or wheezing) Qty: 360 RF: 5 [id number] [Trelegy Ellipta] 100-62.5-25 mcg blister with device 1 inh inhalation DAILY RF: 0 simvastatin 80 mg tablet 40 mg PO HS Qty: 90 RF: 3 omeprazole 40 mg capsule,delayed release(DR/EC) 40 mg PO DAILY Qty: 90 RF: 3 (DME) Lift Chair Misc See Rx Instructions .ROUTE .MEDSUPPLY Qty: 1 RF: 0 (DME) Lift Chair Misc See Rx Instructions .ROUTE .MEDSUPPLY Qty: 1 RF: 0 magnesium oxide 500 mg tablet 500 mg PO BID RF: 0 albuterol sulfate 90 mcg/actuation HFA aerosol inhaler 2 puffs INH Q4H PRN (Reason: Shortness Of Breath) Qty: 8.5 RF: 11 glimepiride 2 mg tablet 2 mg PO DAILY Qty: 90 RF: 3 amiodarone 200 mg tablet 200 mg PO QAM 90 Days Qty: 90 RF: 3 furosemide 20 mg tablet See Rx Instructions .ROUTE .COMPLEX Qty: 90 RF: 3 multivitamin with minerals [Multiple Vitamin-Minerals] Tablet 1 tab PO DAILY RF: 0 levothyroxine 75 mcg Tablet 37.5 mcg PO Q2D RF: 0 cyanocobalamin (vitamin B-12) [Vitamin B-12] 500 mcg Tablet 500 mcg PO DAILY RF: 0 ascorbic acid (vitamin C) [Vitamin C] 500 mg Tablet 500 mg PO DAILY RF: 0 ferrous sulfate [iron] 325 mg (65 mg iron) Tablet 325 mg PO QID RF: 0 prednisone 10 mg tablet 40 mg PO DAILY RF: 0 Lantus Solostar U-100 Insulin 100 unit/mL (3 mL) insulin pen 60 units SC DAILY RF: 0 Referrals Referrals: Howard Gunderson MD [Primary Care Provider] -
[2020-05-03] MEDS ORDERED: SODIUM CHLORIDE 0.9% 500 ML IV SCH (11:00)
[2020-05-03 11:08] LABS: Hematocrit (blood only) 42.3 % (42-52); Hemoglobin 14.1 g/dL (14.0-18.0); Mean Corpuscular Hemoglobin 30.6 pg (25-34); Mean Corpuscular Hgb Conc 33.3 g/dL (32-36); Mean Corpuscular Volume 91.8 fL (80-100); Nucleated RBC # (auto) 0.02 K/uL (0-0); Nucleated RBC % (auto) 0.1 %; Platelet Count 212 K/uL (130-400); Red Blood Count 4.61 M/uL (4.7-6.1); White Blood Count 15.67 K/uL (4.8-10.8)
[2020-05-03 11:31] LABS: Albumin Level 2.9 gm/dl (3.4-5.0); BUN Creatinine Ratio 17.8 (10-20); Calcium 9.6 mg/dl (8.5-10.1); Creatinine Clr Calc Pharmacy 51.7 ml/min; Est GFR (African American) 64.2; Est GFR (Non-African American) 55.4
[2020-05-03 11:46] LABS: Albumin Globulin Ratio 0.8 (0.9-2); Bilirubin,Total 0.6 mg/dl (0.2-1); Globulin 3.6 gm/dl (2.5-4.0); Total Protein 6.5 gm/dl (6.4-8.2); Troponin I 0.116 ng/ml (0-0.045)
[2020-05-03 11:47] LABS: ALC (manual) 8.04 K/uL (1.2-3.4); ANC (manual) 6.27 K/uL (1.4-6.5); Eosinophils # (manual) 0.14 K/uL (0-0.5); Eosinophils % (manual) 0.9 %; Large Granular Lymph # (manua 6.27 K/uL; Lymphocytes # (manual) 1.77 K/uL (1.2-3.4); Lymphocytes % (manual) 11.3 %; Monocytes # (manual) 0.81 K/uL (0.11-0.59); Monocytes % (manual) 5.2 %; Myelocytes # (manual) 0.41 K/uL (0-0); Myelocytes % (manual) 2.6 %; Neutrophils # (manual) 6.27 K/uL (1.4-6.5)
--- NOTE | 2020-05-03 12:15 | XRay Report ---
XR chest 1V portable CLINICAL HISTORY: Pain, radiating to the abdomen COMPARISON STUDY: 820 FINDINGS: The heart is enlarged. There is no focal pulmonary consolidation. There is stable basilar i nterstitial thickening. The right midlung zone airspace opacity has resolved. There is no failure. Th ere is chronic blunting of the right lateral costophrenic angle. There is no pneumoperitoneum IMPRESSION: 1. Cardiomegaly and mild chronic basilar interstitial thickening 2. No evidence of lobar consolidation ACT 112: Negative or not required by law. Electronically signed by: Rodger Robison M.D. 05/03/2020 11:51 AM
--- NOTE | 2020-05-03 12:27 | Electrocardiogram Report ---
Test Reason : Blood Pressure : / mmHG Vent. Rate : 083 BPM Atrial Rate : 083 BPM P-R Int : 220 ms QRS Dur : 134 ms QT Int : 444 ms P-R-T Axes : 077 -88 046 degrees QTc Int : 521 ms Sinus rhythm with 1st degree A-V block Right bundle branch block Left anterior fascicular block Bifascicular block Abnormal ECG When compared with ECG of 23-APR-2020 12:35, Premature atrial complexes are no longer Present Confirmed by Mohit Perez ([id number]) on 05/03/2020 12:27:01 PM Referred By: [email or web address] Confirmed By:Mohit Perez
--- NOTE | 2020-05-03 13:31 | History & Physical Report ---
Date of Service May 03, 2020 Assessment & Plan (1) Generalized weakness: Suspect multifactorial related to CAD (?angina/ACS), atrial fibrillation episodes, COPD, recent PNA, ?dehydrated with glucosuria (recent steroid use), recent diagnosis suspected GCA ?PMR, malnutrition. TSH with AM labs Stop lasix, gentle IV hydration overnight. (2) Leukocytosis: Suspect secondary to recent increase in her steroid dosing due to suspected GCA. UA pending for infection. Chest x-ray negative for pneumonia. Monitor CBC with a.m. labs. (3) Elevated troponin: In setting of recent chest pains relieved with nitroglycerin and prior positive myocardial perfusion scan Unclear if represents ACS vs. atrial fibrillation with RVR episodes - aspirin 324 mg p.o. stat, nitroglycerin 0.4 mg SL for chest pain. No heparin drip due to unclear diagnosis and Xarelto taken last night. Monitor on telemetry. TTE. Consult cardiology. (4) Paroxysmal atrial fibrillation: Continue anticoagulation with Xarelto -consider switching to Eliquis for coronary artery disease as below. Rhythm control with amiodarone 200 mg p.o. daily. (5) Coronary artery disease: Suspected based on prior myocardial perfusion scan. 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 Continue simvastatin 40 mg p.o. at bedtime Consider addition of metoprolol succinate if recommended per cardiology in setting of bifascicular block. (6) Bifascicular block: No syncopal episodes to warrant pacemaker insertion. Monitor on telemetry for high degree AV block. (7) Chronic diastolic heart failure: No current acute exacerbation of this. Currently appears dry. Discontinue Lasix as above - recently increased at outpatient cardiology appointment due to leg edema and shortness of breath with elevated JVD. Consider metoprolol succinate as above. (8) Diabetes mellitus type 2 in nonobese: HbA1C 8.8 in March, will repeat with a.m. labs. Discontinue Lantus and glimepiride. Consult pharmacy for glycemic control with prednisone taper. (9) Temporal arteritis: Recent diagnosis of this. Currrently on steroid taper started 04/23. Will continue this although no headache at the present time. (10) Iron deficiency anemia: No current anemia. Will decrease ferrous sulfate to once daily to assist with constipation. (11) [facility] current use of systemic steroids: Currently on prednisone taper as above. (12) Obstructive sleep apnea: 2L oxygen at night (13) Hypothyroidism: Repeat TSH due to generalized weakness and lethargy. Continue levothyroxine 37.5/75 mcg p.o. every other day (14) GERD (gastroesophageal reflux disease): Switch omeprazole for pantoprazole as per hospital formulary. (15) Oropharyngeal dysphagia: Suspect secondary to dementia. Consult SLT. 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 Monitor for delirium during admission. (17) Depression: Continue Lexapro 10 mg p.o. every morning (18) History of prostate cancer: Status post surgery, no radiation or chemotherapy. (19) History of urinary tract obstruction: Prior history of heart catheter insertion on last admission. ? Secondary to constipation on last occasion. Bladder scan every shift. Call provider if > 400ml. (20) Chronic obstructive pulmonary disease: No recent PFTs. Chronic bronchitis noted on previous CTs - no emphysematous changes. 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 daily. Continue Trelegy Ellipta or hospital formulary equivalent. No acute exacerbation. (21) DVT prophylaxis: Continue Xarelto 20 mg p.o. daily Admission and Anticipated Discharge Date Admission Date: May 03, 2020 History of Present Illness Chief Complaint: Generalized weakness, chest/abdominal pain Primary Care Provider: Artis Gunderson MD Maninder Gibson is an 80-year-old male who presents to the ER with generalized weakness and abdominal/chest pain. Chest/epigastric pain occurred this morning while having a shower. Unable to give me a full history of this but points the pain was from his chest down to epigastric area. Not related to food. More severe than prior pains he has had over the last 1 to 2 weeks which is been relieved with nitroglycerin. No associated nausea, vomiting, diaphoresis. He was home by himself and made it back to his bed but called his as he felt he needed ambulance into the hospital. Current pain severity 0/10. Associated palpitations last night although his is a pulse oximetry and his heart rate was normal at that time. On review of previous hospitalizations he has had multiple similar presentations with fatigue, generalized weakness, chest/abdominal pain and poor appetite over the last 1-2 years. His does note his short-term memory has become worse over this time period. On prior occasions he has been diagnosed with a GI bleed requiring blood/iron transfusions, diastolic congestive heart failure, PNA, COPD exacerbation and atrial flutter with rapid ventricular rates. He had a prior myocardial perfusion scan in May 2019 suggestive of inferior ischemia however follow-up with cardiology given patient comorbidities and lack of symptoms at current activity levels recommended avoiding further invasive testing at that time. He was most recently admitted from March 27-2019 due to pneumonia, atrial fibrillation with rapid ventricular rate and COPD exacerbation with a similar troponin rise. Outpatient notes suggestive no significant improvement in his breathing despite steroids prescribed for his COPD. His lasix dosing was increased due to concerns about weight gain, leg swelling and worsening shortness of breath. He also developed a right sided headache and was placed back on a steroid taper on April 23 due to concerns for GCA. Since his last discharge he has become slowly progressively more weak. Now requiring a cane to walk as unstable. Appetite is poor. Because stomach hurts so much he will snack all day as this appears to help him for short amount of time. Sometimes burning sensation in his chest although this is different to his more exertional chest pain he experienced today. He notes he chokes on water when not using a straw. No significant change in his bowel movements. Regarding his generalized weakness. His reports not lateralizing, no significant change since his CT scan, no change in speech/hearing/vision. Allergies Allergy/AdvReac Type Severity Reaction Status Date / Time moxifloxacin Allergy Severe throat Verified 05/03/20 11:16 swelling ofloxacin Allergy Severe SWELLING Verified 05/03/20 11:16 AROUND FACE Quinolones Allergy Severe ANAPHYLAXIS Verified 05/03/20 11:16 formoterol Allergy Intermediate RASH Verified 05/03/20 11:16 Sulfa (Sulfonamide Allergy Intermediate severe red Verified 05/03/20 11:16 Antibiotics) rash Home Medications Home Medications Medication Instructions Recorded Confirmed Type metformin 1,000 mg tablet 1,000 mg PO BID #180 tab 02/24/19 05/03/20 Rx cyanocobalamin (vitamin B-12) 500 mcg PO DAILY 05/02/19 05/03/20 History [Vitamin B-12] magnesium oxide 500 mg tablet 500 mg PO BID tab 05/07/19 05/03/20 History escitalopram oxalate 10 mg tablet 10 mg PO QAM #90 tab 11/18/19 05/03/20 Rx rivaroxaban 20 mg tablet 20 mg PO QPM #90 tab 11/20/19 05/03/20 Rx albuterol sulfate 2.5 mg INH Q4H PRN #360 ml 11/25/19 05/03/20 Rx albuterol sulfate 90 mcg/actuation 2 puffs INH Q4H PRN #8.5 gm 02/11/20 05/03/20 Rx aerosol inhaler glimepiride 2 mg tablet 2 mg PO DAILY #90 tab 02/11/20 05/03/20 Rx simvastatin 80 mg tablet 40 mg PO HS #90 tab 03/03/20 05/03/20 Rx levothyroxine 37.5 mcg PO Q2D 03/27/20 05/03/20 History multivitamin with minerals 1 tab PO DAILY 03/27/20 05/03/20 History [Multiple Vitamin-Minerals] amiodarone 200 mg tablet 200 mg PO QAM 90 Days #90 tab 04/08/20 05/03/20 Rx furosemide 20 mg tablet See Rx Instructions .ROUTE 04/08/20 05/03/20 Rx .COMPLEX #90 tab omeprazole 40 mg capsule,delayed 40 mg PO DAILY #90 cap 04/21/20 05/03/20 Rx release Lantus Solostar U-100 Insulin 60 units SC DAILY 05/03/20 05/03/20 History Lift Chair #1 ea 05/03/20 Rx Lift Chair #1 ea 05/03/20 Rx ascorbic acid (vitamin C) [Vitamin 500 mg PO DAILY 05/03/20 05/03/20 History C] ferrous sulfate [iron] 325 mg PO QID 05/03/20 05/03/20 History levothyroxine 75 mcg PO Q2D 05/03/20 05/03/20 History prednisone 40 mg PO DAILY 05/03/20 05/03/20 History Past Med/Surg History Medical History Anxiety Atrial fibrillation with rapid ventricular response Atrial flutter on xarelto Chronic diastolic CHF (congestive heart failure) Chronic steroid use Depression GERD (gastroesophageal reflux disease) Heart disease IRREGULAR RHYTHYM HLD (hyperlipidemia) HTN (hypertension) Hypothyroidism Iron deficiency anemia Kidney stones Left ventricular outflow tract obstruction [facility] current use of systemic steroids Mild HOCM (hypertrophic obstructive cardiomyopathy) Nephrolithiasis Obstructive sleep apnea On anticoagulant therapy xarelto daily On home oxygen therapy 2L N/C at hs Organic impotence Pericardial effusion Pleural effusion HX OF Prostate cancer Steroid-induced osteopenia Surgical History H/O cystoscopy "History of Cystoscopy With Insertion Of Ureteral Stent" on CCD H/O tooth extraction History of bronchoscopy History of cardiac radiofrequency ablation History of prostatectomy History of repair of right rotator cuff Hx of colonoscopy Hx of esophagogastroduodenoscopy Family History Sister Ovarian cancer Mother Skin cancer Myocardial infarction Grandfather Myocardial infarction Other No family history of adverse response to anesthesia Stroke Denies family history of Prostate cancer Breast cancer Colorectal cancer Social History Smoking Status: Never smoker Second Hand Exposure: No; Hx Alcohol Use: No Hx Substance Use: No Preferred Language: Divehi Communication Ability: Effective Visual Impairment: No Limitations Hearing Ability: Use of Hearing Aid Medical Office Asst Required: No Beliefs That Will Affect Care: None marital status: Current Living Situation: Spouse current occupational status: retired Other Information That Helps Us Care for You: No Feels Safe at Home: Yes Safety Concerns: Feels Safe At This Time Childhood Exposure to Second-Hand Smoke: No caffeine: Yes during the past year weight has: remained stable Dental Care, Regularly: No Physical Activity Frequency: Does not Exercise Seatbelt Use: always Sunscreen Use: No Review of Systems Review of Systems: All systems reviewed & are unremarkable except as noted in HPI & below Lightheadedness/dizziness no worse in last 2 weeks. 5 times in last 2 years complete syncopal event. Not happened in last 2 weeks. Physical Exam Constitutional: well developed and + frail appearing; + not well nourished and no acute distress Eyes: PERRL, conjunctivae normal, anicteric sclerae ENMT: Ears: no external ear abnormality Nose: no external nose abnormality Mouth: + dry oral mucous membranes Neck: trachea midline, no thyromegaly Respiratory: + uses accessory muscles, + cough (Occasional) and able to speak in complete sentences; no respiratory distress and no retractions Auscultation: + diminished lung sounds (Throughout) and + crackles (Bibasal); no rales, no rhonchi and no wheezes Cardiovascular: Rate/Rhythm: regular rate and regular rhythm (Occasional skipped beats) Heart Sounds: + murmur ([place] systolic) Extremities: normal capillary refill and + pedal edema (Trace ankles bilaterally equal); no calf tenderness Gastrointestinal (Abdomen): Inspection/Auscultation: + abdomen distended and normal bowel sounds Percussion/Palpation: + abdomen tender (Generalized on palpation only) and abdomen soft; no guarding and abdomen not rigid Skin: no rashes, warm and dry (No areas of cellulitis) Neurologic: moves all extremities and awake; no focal motor deficits (No lateralizing) and not confused Motor/Sensory: no tremor, normal movement, no pronator drift and no sensory deficit Coordination: normal [id number] test Psychiatric: Orientation: alert and oriented x 3 Affect: + flat affect Genitourinary: no CVA tenderness Results & Data Results & Data ([facility]) Vital Signs (Past 12 Hours) Vital Signs Temp Pulse Resp BP Pulse Ox 05/03/20 12:30 79 16 138/79 95 05/03/20 12:01 80 16 94 05/03/20 12:00 78 19 145/67 H 95 05/03/20 11:30 80 17 135/69 95 05/03/20 11:01 80 14 130/64 96 05/03/20 10:53 37.3 C 83 18 140/70 96 05/03/20 10:[address] SCAN OF THE ABDOMEN AND PELVIS WITH IV CONTRAST IMPRESSION: 1. There are no acute infectious or inflammatory findings in the abdomen or pelvis. 2. Cardiomegaly and trace right pleural effusion. This is unchanged from previous. 3. Additional findings as above. XR chest 1V portable IMPRESSION: 1. Cardiomegaly and mild chronic basilar interstitial thickening 2. No evidence of lobar consolidation ECG Indication: chest pain Rate (beats per minute): 83 Rhythm: normal sinus Findings: + 1st degree AV block, + LAFB and + RBBB Comparison ECG Date: from (April 23, 2020) Change: the following changes noted (PACs no longer present) Code Status & VTE Plan Code Status DNR/DNI VTE Prophylaxis Plan VTE Prophylaxis will be ordered: Yes PG Care Time/CCT Total # of Minutes Spent Total Time Spent with Patient: Total time spent is greater than 50% in coordination of care (as documented) at patient's floor/unit and/or counseling patient: Coding Level of Care Code 50364 OBS Care - Level 3 Diagnoses Generalized weakness R53.1 Leukocytosis D72.829 Elevated troponin R79.89 Paroxysmal atrial fibrillation I48.0 Coronary artery disease I25.10 Bifascicular block I45.2 Chronic diastolic heart failure I50.32 Diabetes mellitus type 2 in nonobese E11.9 Temporal arteritis M31.6 Iron deficiency anemia D50.9 [facility] current use of systemic steroids Z79.52 Obstructive sleep apnea G47.33 Hypothyroidism E03.9 Hypothyroidism type: unspecified GERD (gastroesophageal reflux disease) K21.9 Esophagitis presence: esophagitis presence not specified Oropharyngeal dysphagia R13.12 SDAT (senile dementia of Alzheimer's type) G30.1; F02.80 Depression F32.9 Depression Type: unspecified History of prostate cancer Z85.46 History of urinary tract obstruction Z87.448 Chronic obstructive pulmonary disease J44.9 DVT prophylaxis Z29.9 (1) Depression Depression Type: unspecified Qualified Code(s): F32.9 - Major depressive disorder, single episode, unspecified (2) Hypothyroidism Hypothyroidism type: unspecified Qualified Code(s): E03.9 - Hypothyroidism, unspecified (3) GERD (gastroesophageal reflux disease) Esophagitis presence: esophagitis presence not specified Qualified Code(s): K21.9 - Gastro-esophageal reflux disease without esophagitis
[2020-05-03] MEDS ORDERED: IOVERSOL 100ml IV ONE (13:55)
--- NOTE | 2020-05-03 14:12 | CT Scan Report ---
CT SCAN OF THE ABDOMEN AND PELVIS WITH IV CONTRAST CLINICAL HISTORY: Left lower quadrant abdominal pain. COMPARISON STUDY: Abdominal CT dated 09/23/2019. TECHNIQUE: Following the IV administration of 94 cc of Optiray 320, CT scan of the abdomen and pelvi s is performed from the lung bases to the proximal femora. Images are reviewed in the axial, sagittal , and coronal planes. IV contrast was administered without complication. A dose lowering technique wa s utilized adhering to the principles of ALARA. The examination is degraded by streak artifact from t he right arm which could not be elevated above the abdomen. CT DOSE: 896.95 mGy.cm FINDINGS: Lung bases: The heart is enlarged and without pericardial effusion. The coronary arteries are densely calcified. A small hiatal hernia is noted. There is a trace right pleural effusion with bibasilar sc arring/atelectasis. Liver: The contrast-enhanced liver is normal in size, contour, and attenuation. There is no intrahepa tic biliary ductal dilatation. The hepatic veins and portal veins are patent. Gallbladder: Unremarkable. Spleen: Normal in size and attenuation. Pancreas: Unremarkable. Adrenal glands: Unremarkable. Kidneys: The contrast enhanced kidneys demonstrate cortical atrophy and are without hydronephrosis. T he kidneys enhance symmetrically. A 2.2 cm cyst is noted in the left. Abdominal vasculature: The abdominal aorta is normal in course and caliber noting moderate atheroscle rotic calcification. Bowel: There is no bowel obstruction. The appendix is well-visualized and normal. Peritoneum: There is no intraperitoneal free air or abdominal ascites. There is a fat-containing umbi lical hernia. A midline surgical scar is seen in the pelvis. Lymphadenopathy: None. Pelvic viscera: The prostate gland is surgically absent. Numerous surgical clips are scattered throug hout the pelvis. The bladder is distended but otherwise normal in appearance. There are small bilater al fat-containing inguinal hernias, left larger than right. Skeletal structures: The skeletal structures are osteopenic. No lytic or blastic lesions are seen. IMPRESSION: 1. There are no acute infectious or inflammatory findings in the abdomen or pelvis. 2. Cardiomegaly and trace right pleural effusion. This is unchanged from previous. 3. Additional findings as above. ACT 112: Negative or not required by law. Electronically signed by: Fausto Donovan M.D. 05/03/2020 2:11 PM
[2020-05-03] MEDS ORDERED: ASPIRIN CHEW 324 MG PO STA (14:46)
[2020-05-03] MEDS ORDERED: ALBUTEROL 0.083% NEBU SOLN 3 ML VIAL INH PRN (15:48)
[2020-05-03] MEDS ORDERED: ACETAMINOPHEN 325 MG TAB PO PRN (15:48)
[2020-05-03] MEDS ORDERED: NITROGLYCERIN SL 0.4 MG/TAB TAB SL PRN (15:48)
[2020-05-03] MEDS ORDERED: PHARMACY GLYCEMIC MGMT CONSULT PRN (15:57)
[2020-05-03] MEDS: LEVOTHYROXINE SODIUM 25 MCG TABLET PO SCH (17:42)
[2020-05-03] MEDS: INSULIN ASPART 100 UNITS/ML 3 ML PEN SC SCH ×2 (17:43→21:11)
[2020-05-03] MEDS: predniSONE 20 MG TAB PO SCH (18:25)
[2020-05-03] MEDS ORDERED: INSULIN GLARGINE SOLOSTAR 100 UNITS/ML 3 ML PEN SC ONE (21:00)
[2020-05-03] MEDS: SIMVASTATIN 40 MG TAB PO SCH (21:08)
[2020-05-03] MEDS: MAGNESIUM OXIDE 400 MG TAB PO SCH (21:08)
[2020-05-03] MEDS: RIVAROXABAN 20 MG TAB PO SCH (21:08)
[2020-05-03 22:44] LABS: Appearance Urine Clear (Clear); Bacteria Urine Automated Negative (Negative); Bilirubin Urine Negative (Negative); Blood Urine Trace (Negative); Cast Urine Automated 0 /lpf (0-5); Color Urine Yellow; Glucose Urine UA Negative (Negative); Ketones Urine Negative (Negative); Leukocyte Esterase Urine Negative (Negative); Nitrite Urine Negative (Negative); Protein Urine Negative (Negative); RBC Urine Automated 0-4 /hpf (0-4); Specific Gravity Urine 1.041 (1.000-1.030); Urobilinogen Urine Negative (Negative); pH Urine 7.5 (4.5-7.5)
[2020-05-04] MEDS ORDERED: SODIUM CHLORIDE 0.9% 1000ML 1,000 ML IV SCH (00:15)
[2020-05-04] MEDS ORDERED: LEVOTHYROXINE SODIUM 75 MCG TABLET PO SCH (06:30)
[2020-05-04 06:35] LABS: Hematocrit (blood only) 40.6 % (42-52); Hemoglobin 13.2 g/dL (14.0-18.0); Mean Corpuscular Hgb Conc 32.5 g/dL (32-36); Mean Corpuscular Volume 92.3 fL (80-100); Mean Platelet Volume 10.7 fL (7.4-10.4); Platelet Count 213 K/uL (130-400); RDW Coefficient of Variation 15.1 % (11.5-14.5); RDW Standard Deviation 50.9 fL (36.4-46.3); White Blood Count 13.95 K/uL (4.8-10.8)
[2020-05-04 07:01] LABS: Estimated Average Glucose 194 mg/dl; Hemoglobin A1C 8.4 % (4.5-5.6)
[2020-05-04 07:06] LABS: Basophils # (auto) 0.02 K/uL (0-0.2); Basophils % (auto) 0.1 %; Immature Granulocytes # (auto) 0.82 K/uL (0.00-0.02); Immature Granulocytes % (auto) 5.9 %; Lymphocytes # (auto) 4.26 K/uL (1.2-3.4); Lymphocytes % (auto) 30.5 %; Monocytes # (auto) 0.62 K/uL (0.11-0.59); Monocytes % (auto) 4.4 %; Neutrophils # (auto) 8.23 K/uL (1.4-6.5); Neutrophils % (auto) 59.1 %; RBC Morphology Unremarkable
[2020-05-04 07:15] LABS: Albumin Level 2.5 gm/dl (3.4-5.0); BUN Creatinine Ratio 18.2 (10-20); Calcium 9.2 mg/dl (8.5-10.1); Creatinine Clr Calc Pharmacy 55.3 ml/min; Est GFR (African American) 69.8; Est GFR (Non-African American) 60.2; Potassium 4.7 mmol/L (3.5-5.1)
[2020-05-04 07:16] LABS: Albumin Globulin Ratio 0.7 (0.9-2); Bilirubin,Total 0.3 mg/dl (0.2-1); Globulin 3.6 gm/dl (2.5-4.0); Thyroid Stimulating Hormone 0.496 uIu/ml (0.300-4.500); Total Protein 6.1 gm/dl (6.4-8.2); Troponin I 0.042 ng/ml (0-0.045)
[2020-05-04] MEDS: ESCITALOPRAM OXALATE 10 MG TAB PO SCH (08:13)
[2020-05-04] MEDS: NovoLIN-N (NPH) PER UNIT CHARGE SQ SCH (08:13)
[2020-05-04] MEDS: ASCORBIC ACID 500 MG TAB PO SCH (08:13)
[2020-05-04] MEDS: MULTIVITAMIN TAB PO SCH (08:13)
[2020-05-04] MEDS: CYANOCOBALAMIN 500 MCG TABLET (VITAMIN B-12) PO SCH (08:14)
[2020-05-04] MEDS: PANTOprazole 40 MG TAB PO SCH (08:14)
[2020-05-04] MEDS: MAGNESIUM OXIDE 400 MG TAB PO SCH ×2 (08:14→20:50)
[2020-05-04] MEDS: FERROUS SULFATE 325 MG TAB PO SCH (08:14)
[2020-05-04] MEDS: UMECLIDINIUM BROMIDE 62.5MCG/BLISTER 7 PUFFS/INHALER INH SCH (08:15)
[2020-05-04] MEDS: predniSONE 20 MG TAB PO SCH (08:16)
[2020-05-04] MEDS: FLUTICASONE/VILANTEROL 100/25MCG 14 PUFFS/INHALER INH SCH (08:16)
[2020-05-04] MEDS: AMIODARONE 200 MG TAB PO SCH (08:16)
[2020-05-04] MEDS: INSULIN ASPART 100 UNITS/ML 3 ML PEN SC SCH ×4 (08:17→20:53)
[2020-05-04] MEDS ORDERED: NON-FORMULARY MEDICATION (Fluticasone-Umeclidin-Vilanter [Trelegy Ellipta] 1 PUFFS) inhalation SCH (09:00)
[2020-05-04] MEDS ORDERED: FUROSEMIDE 40 MG TAB PO SCH ×2 (09:00)
[2020-05-04] MEDS ORDERED: predniSONE 10 MG TABLET PO SCH (09:00)
--- NOTE | 2020-05-04 09:54 | Cardiology Consultation ---
Date of Consultation May 04, 2020 Assessment & Plan (1) Elevated troponin: Mr. Gibson is an 80 yo male with complex history who presented to [facility] on 05/03 with several episodes of substernal, non-radiating chest pain during the last month since discharge on 03/31. Elevated Troponin Suspect due to demand ischemia in the setting of CAD with positive stress test in 05/2019, along with decreased PO intake over the last month. Given the patient's extensive comorbidities and overall frail physical state, in the setting of short-lived chest pain episodes that resolve with nitro within 10 minutes, recommend conservative management with medication optimization, rather than heart catheterization, at this time. - No heart catheterization at this time - Recommend starting Imdur 30 mg ER PO QAM for angina prophylaxis, to be continued after discharge - Continue Simvastatin 40 mg PO daily - Do not recommend BB at this time, given delayed AV conduction on EKG (bifascicular block) - Do not recommend stress test at this time, as this would be unlikely to affect decision for acute intervention as mentioned above - Continue to maintain close follow-up with Cardiology as outpatient Chronic Diastolic Heart Failure Patient mildly dry on exam with history of decreased PO intake. Initial TTE read normal, formal read later today. - Agree with holding Lasix at this time - Would monitor volume status closely on exam - Given that patient is currently close to euvolemic, current weight of 84.1kg is likely his baseline weight - Agree with daily weight checks, strict I/Os, heart-healthy diet while hospitalized - Recommend daily weight checks after discharge as well. Also recommend salt restricted diet as outpatient. Patient has dementia and is physically limited at home; patient's needs to be amenable to this management plan - Recommend PRN Lasix 20 mg after discharge, to be used only if patient is >2- 3kg above current baseline weight Generalized Weakness Agree that the patient's increased weakness and fatigue is multifactorial in nature, with decreased PO intake playing a significant role in this. Given that symptoms have been progressive since starting Amiodarone, possibility that Amiodarone is playing a role as well. Of note, TSH, LFTs WNLs and CXR without signs of interstitial lung disease, although these changes would be unlikely to develop after only 1 month of Amiodarone treatment. Given that the patient's atrial fibrillation has been well-controlled since starting Amiodarone, do not recommend changes in this medication at this time. - Encourage PO intake while in the hospital, and after discharge Atrial Fibrillation - controlled with Amiodarone, no changes as mentioned above - recommend continuing Xarelto 20 mg PO daily Bifascicular Block - Relatively new, first appeared on 04/23. - No associated symptoms of syncope or near-syncope per patient - Do not recommend acute intervention i.e. permanent pacemaker placement at this time, due to reasons mentioned above Remainder of management per primary team. Thank you for this interesting consult. 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 Agree with assessment and plan as outlined by Dr. Ceja. Mr. Gibson is well known to me from the outpatient setting and prior hospitalizations. Since his last admission has been maintained on amiodarone in sinus rhythm and lasix 20mg daily. Readmitted with episode of chest/epigastric pain and generalized fatigue. Mild troponin elevation on admission now downtrending. No ECG changes. Echo shows preserved LV function. On exam drowsy, frail, well perfused but dry. Sinus rhythm without new murmurs. Etiology of patients symptoms not completely clear. Likely some contribution from hypovolemia on maintenance diuretic. Some suspicion for ACS. Feel unlikely revascularization would change overall prognosis but we did talk about catheterization to evaluate for CAD where PCI could potentially improve symptoms. At this time still in favor of continued medical management. Plan to add long acting nitrate. Continue amiodarone for now. Continue Xarelto. PRN lasix for weight gain. History of Present Illness Reason for Consultation: elevated troponin, chest pain Requesting Physician: Tarik Lindquist MD Attending Physician: Mathew Jaramillo DO History of Present Illness Mr. Gibson is an 80 yo male with complex h/o CAD, Atrial flutter s/p ablation in 10/2018, atrial fibrillation (on Amiodarone 200 mg PO daily and Xarelto 20 mg PO daily), Chronic Diastolic Heart Failure, COPD, LEONARD, GCA (on Pred taper), HTN, HLD, T2DM, and Dementia, who was admitted to [facility] on 05/03 for generalized weakness, chest pain and elevated Troponin to 0.116. Patient was previously hospitalized here from 03/27-03/31 for PNA, A-fib w/ RVR, demand ischemia with elevated Troponin, and COPD exacerbation. Converted to NSR with Amio gtt and discharged on Amiodarone. Since discharge, the patient reports increasing generalized weakness and fatigue, with more unstable gait - he reports progressively decreased PO intake as well. Also reports several episodes of substernal, non-radiating moderate chest pain and epigastric pain that occur together; have occurred once per week and last 5-10 minutes - resolve after Nitro x1. Most recent episode of chest pain was on morning of admission, when patient was showering. This episode was similar in character to the previous episodes but resolved within 10 minutes without Nitro. Patient denies associated syncope, near-syncope, diaphoresis, dizziness, palpitations, N/V. When asked why patient decided to come in after this particular episode, the patient said he was unsure - of note the patient is not a maximally reliable historian, secondary to chronic dementia. Denies current chest pain, palpitations, shortness of breath, abdominal pain, leg swelling. Recently seen by Cardiology (Bert CLARK) on 04/08 - Lasix 20 mg PO BID changed to 40 mg PO daily at that time. No other medication changes at that time. Positive family history of heart disease in patient's mother. No family history of arrhythmias. Lives in a one-floor home with his . Two steps to get two the front door that the patient reports is not currently an issue. Proficient in all ADLs but no iADLs at this time. Patient's able to take care of him. Denies smoking/alcohol/drug use. Allergies Allergy/AdvReac Type Severity Reaction Status Date / Time moxifloxacin Allergy Severe throat Verified 05/03/20 11:16 swelling ofloxacin Allergy Severe SWELLING Verified 05/03/20 11:16 AROUND FACE Quinolones Allergy Severe ANAPHYLAXIS Verified 05/03/20 11:16 formoterol Allergy Intermediate RASH Verified 05/03/20 11:16 Sulfa (Sulfonamide Allergy Intermediate severe red Verified 05/03/20 11:16 Antibiotics) rash Home Medications Home Medications Medication Instructions Recorded Confirmed Type metformin 1,000 mg tablet 1,000 mg PO BID #180 tab 02/24/19 05/03/20 Rx cyanocobalamin (vitamin B-12) 500 mcg PO DAILY 05/02/19 05/03/20 History [Vitamin B-12] magnesium oxide 500 mg tablet 500 mg PO BID tab 05/07/19 05/03/20 History escitalopram oxalate 10 mg tablet 10 mg PO QAM #90 tab 11/18/19 05/03/20 Rx rivaroxaban 20 mg tablet 20 mg PO QPM #90 tab 11/20/19 05/03/20 Rx albuterol sulfate 2.5 mg INH Q4H PRN #360 ml 11/25/19 05/03/20 Rx albuterol sulfate 90 mcg/actuation 2 puffs INH Q4H PRN #8.5 gm 02/11/20 05/03/20 Rx aerosol inhaler glimepiride 2 mg tablet 2 mg PO DAILY #90 tab 02/11/20 05/03/20 Rx simvastatin 80 mg tablet 40 mg PO HS #90 tab 03/03/20 05/03/20 Rx levothyroxine 37.5 mcg PO Q2D 03/27/20 05/03/20 History multivitamin with minerals 1 tab PO DAILY 03/27/20 05/03/20 History [Multiple Vitamin-Minerals] amiodarone 200 mg tablet 200 mg PO QAM 90 Days #90 tab 04/08/20 05/03/20 Rx furosemide 20 mg tablet See Rx Instructions .ROUTE 04/08/20 05/03/20 Rx .COMPLEX #90 tab omeprazole 40 mg capsule,delayed 40 mg PO DAILY #90 cap 04/21/20 05/03/20 Rx release Lantus Solostar U-100 Insulin 60 units SC DAILY 05/03/20 05/03/20 History Lift Chair #1 ea 05/03/20 Rx Lift Chair #1 ea 05/03/20 Rx ascorbic acid (vitamin C) [Vitamin 500 mg PO DAILY 05/03/20 05/03/20 History C] ferrous sulfate [iron] 325 mg PO QID 05/03/20 05/03/20 History levothyroxine 75 mcg PO Q2D 05/03/20 05/03/20 History prednisone 40 mg PO DAILY 05/03/20 05/03/20 History Patient History Medical History Anxiety Atrial fibrillation with rapid ventricular response Atrial flutter on xarelto Chronic diastolic CHF (congestive heart failure) Chronic steroid use Depression GERD (gastroesophageal reflux disease) Heart disease IRREGULAR RHYTHYM HLD (hyperlipidemia) HTN (hypertension) Hypothyroidism Iron deficiency anemia Kidney stones Left ventricular outflow tract 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 Mild HOCM (hypertrophic obstructive cardiomyopathy) Nephrolithiasis Obstructive sleep apnea On anticoagulant therapy xarelto daily On home oxygen therapy 2L N/C at hs Organic impotence Pericardial effusion Pleural effusion HX OF Prostate cancer Steroid-induced osteopenia Surgical History H/O cystoscopy "History of Cystoscopy With Insertion Of Ureteral Stent" on CCD H/O tooth extraction History of bronchoscopy History of cardiac radiofrequency ablation History of prostatectomy History of repair of right rotator cuff Hx of colonoscopy Hx of esophagogastroduodenoscopy Family History Sister Ovarian cancer Mother Skin cancer Myocardial infarction Grandfather Myocardial infarction Other No family history of adverse response to anesthesia Stroke Denies family history of Prostate cancer Breast cancer Colorectal cancer Social History Smoking Status: Never smoker Second Hand Exposure: No; Hx Alcohol Use: No Hx Substance Use: No Preferred Language: [place] Communication Ability: Effective Visual Impairment: No Limitations Hearing Ability: Use of Hearing Aid Electronics Warfare Technician Required: No Beliefs That Will Affect Care: None marital status: Current Living Situation: Spouse current occupational status: retired Other Information That Helps Us Care for You: No Feels Safe at Home: Yes Safety Concerns: Feels Safe At This Time Childhood Exposure to Second-Hand Smoke: No caffeine: Yes during the past year weight has: remained stable Dental Care, Regularly: No Physical Activity Frequency: Does not Exercise Seatbelt Use: always Sunscreen Use: No Review of Systems Constitutional: no fever and no chills Eyes: no worsening vision Respiratory: no cough and no dyspnea Cardiovascular: no chest pain, no palpitations and no edema Gastrointestinal: no abdominal pain, no nausea and no vomiting Genitourinary: no dysuria Neurologic: no syncope and no headache(s) Physical Exam Constitutional: Appears fatigued but easily arousable to voice, hard of hearing Eyes: PERRL, conjunctivae normal, anicteric sclerae Neck: trachea midline, no thyromegaly Respiratory: normal respiratory effort, lungs clear to auscultation Cardiovascular: RRR, no murmur, no edema Gastrointestinal (Abdomen): normal bowel sounds, soft, nontender, no hepatosplenomegaly Skin: no rashes, warm and dry Psychiatric: A+Ox3, euthymic affect Lymphatic: no cervical lymphadenopathy Results & Data ([facility]) Vital Signs (Past 12 Hours) Vital Signs Temp Pulse Pulse Resp BP BP Pulse Ox 05/04/20 07:36 36.6 C 85 19 119/73 96 05/04/20 03:56 36.4 C L 81 19 122/71 95 05/03/20 23:30 81 05/03/20 23:26 37.1 C 86 20 117/59 L 94 Resident Activity Tracking Resident Involvement: Resident Care Provided Care Provided: Adult Hospital Medicine
--- NOTE | 2020-05-04 11:35 | XCELERA ---
[id number]
--- NOTE | 2020-05-04 11:54 | Pharmacy Report ---
Pharmacy Glycemic Short Note 2 - Date of Service May 04, 2020 - Glycemic Short BSG Results (Last 24 hours): 05/03/20 05/03/20 05/04/20 16:38 20:14 05:31 Glucose 204 H POC Glucose 125 H 142 H 05/04/20 07:29 Glucose POC Glucose 240 H OUTPATIENT ANTIDIABETIC REGIMEN: * Lantus 45-60 units daily * Glimepiride 2mg daily * Metformin 1gm PO BID * A1c 8.4% 05/04/20 ASSESSMENT: * Type 2 diabetic admitted for generalized weakness, chest pain, r/o ACS * Patient has been taking prednisone for possible temporal arteritis and this has likely led to worsened glycemic control * Will continue home Lantus dose in the PM, however will add AM NPH dose to coincide with AM prednisone administration * Will utilize Novolog doses based upon "severe" stress level and weight as has been required in the past while receiving steroid therapy PLAN FOR INPATIENT GLYCEMIC CONTROL: * Hold outpatient oral diabetes medications (metformin, glimepiride) * Basal insulin * NPH 20 units Q AM (~0.25 units/kg) with Prednisone 40mg * Lantus 50 units SQ Q HS * Bolus insulin * NovoLog per scale ACHS and at 0200 * Goal Range: Low 110 mg/dL - High 140 mg/dL * Correction Factor: 15 mg/dL/unit * Nutritional / Prandial insulin per carb ratio of 1 unit per 5 grams CHO consumed PLAN FOR DISCHARGE: * to be determined, will ultimately depend upon steroid regimen used on discharge
--- NOTE | 2020-05-04 18:24 | Hospitalist Progress Note ---
Date of Service May 04, 2020 Assessment & Plan (1) Generalized weakness: Suspect multifactorial related to CAD (?angina/ACS), atrial fibrillation episodes, COPD, recent PNA, ?dehydrated with glucosuria (recent steroid use), recent diagnosis suspected GCA ?PMR, malnutrition. --deconditioning also possibly playing a significant role --improving --continue supportive care --PT/OT eval and treat (2) Leukocytosis: Suspect secondary to recent increase in her steroid dosing due to suspected GCA. - no overt s/s infection - follow clinically (3) Elevated troponin: known CAD - highly likely demand ischemia. likely relates to overall acute on chronic comborbidities - noted to have a positive troponin fairly often. agree add imdur. follow. -was nominal trop elevation and very low risk for acute arrhythmia - ok for transfer to medical. (4) Paroxysmal atrial fibrillation: rate controlled, anticoagulated. (5) Coronary artery disease: see above. imdur. supportive care. (6) Bifascicular block: No syncopal episodes to warrant pacemaker insertion. holding beta morales due to this (7) Chronic diastolic heart failure: No current acute exacerbation of this. dehydrated appearance at time of admission. (8) Diabetes mellitus type 2 in nonobese: pharmacy glycemic consult (9) Temporal arteritis: Recent diagnosis of this. Currrently on steroid taper started 04/23. Will continue this although no headache at the present time. (10) Iron deficiency anemia: No current anemia. Will decrease ferrous sulfate to once daily to assist with constipation. 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 (12) Obstructive sleep apnea: 2L oxygen at night (13) Hypothyroidism: TSH ok (14) GERD (gastroesophageal reflux disease): PPI (15) Oropharyngeal dysphagia: speech eval and treat (16) SDAT (senile dementia of Alzheimer's type): Orientated x3. Monitor for delirium during admission. (17) Depression: Continue Lexapro 10 mg p.o. every morning (18) History of prostate cancer: Status post surgery, no radiation or chemotherapy. (19) History of urinary tract obstruction: Prior history of heart catheter insertion on last admission. ? Secondary to constipation on last occasion. Bladder scan every shift. Call provider if > 400ml. (20) Chronic obstructive pulmonary disease: No recent PFTs. Chronic bronchitis noted on previous CTs - no emphysematous changes. 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 daily. Continue Trelegy Ellipta or hospital formulary equivalent. No acute exacerbation. (21) DVT prophylaxis: Continue Xarelto 20 mg p.o. daily (22) Discharge planning issues: stable for transfer to medical PT/OT eval and treat depending on PT/OT input, home vs SNF vs rehab - but medically overall appearing more stable. Admission and Anticipated Discharge Date Admission Date: May 03, 2020 Subjective feeling somewhat better. no specific complaints. cardiology input noted and appreciated. eating dinner and doing well. nursing notes he walked reasonably well w PT earlier. Review of Systems Review of Systems: All systems reviewed & are unremarkable except as noted in HPI & below Physical Exam Physical Exam: gen awake and pleasant nad heent nc at mmm breathing unlabored no accessory muscles good effort skin no rashes no pallor or icterus neuro no focal deficits Results & Data Results & Data ([facility]) Vital Signs (Past 12 Hours) Vital Signs Temp Pulse Pulse Resp BP BP Pulse Ox 05/04/20 16:00 72 05/04/20 15:10 97.9 F 75 20 134/66 96 05/04/20 11:22 97.5 F L 69 18 94/55 L 97 05/04/20 08:00 79 05/04/20 07:36 97.9 F 85 19 119/73 96 PG Care Time/CCT Total # of Minutes Spent Total Time Spent with Patient: Total time spent is greater than 50% in coordination of care (as documented) at patient's floor/unit and/or counseling patient: Coding Level of Care Code 78350 Subseq Obs Care Lvl 3 Diagnoses Generalized weakness R53.1 Leukocytosis D72.829 Elevated troponin R79.89 Paroxysmal atrial fibrillation I48.0 Coronary artery disease I25.10 Bifascicular block I45.2 Chronic diastolic heart failure I50.32 Diabetes mellitus type 2 in nonobese E11.9 Temporal arteritis M31.6 Iron deficiency anemia D50.9 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 Z79.52 Obstructive sleep apnea G47.33 Hypothyroidism E03.9 Hypothyroidism type: unspecified GERD (gastroesophageal reflux disease) K21.9 Esophagitis presence: esophagitis presence not specified Oropharyngeal dysphagia R13.12 SDAT (senile dementia of Alzheimer's type) G30.1; F02.80 Depression F32.9 Depression Type: unspecified History of prostate cancer Z85.46 History of urinary tract obstruction Z87.448 Chronic obstructive pulmonary disease J44.9 DVT prophylaxis Z29.9 Discharge planning issues Z02.9 (1) Hypothyroidism Hypothyroidism type: unspecified Qualified Code(s): E03.9 - Hypothyroidism, unspecified (2) GERD (gastroesophageal reflux disease) Esophagitis presence: esophagitis presence not specified Qualified Code(s): K21.9 - Gastro-esophageal reflux disease without esophagitis (3) Depression Depression Type: unspecified Qualified Code(s): F32.9 - Major depressive disorder, single episode, unspecified
[2020-05-04] MEDS: RIVAROXABAN 20 MG TAB PO SCH (20:54)
[2020-05-04] MEDS: SIMVASTATIN 40 MG TAB PO SCH (20:54)
[2020-05-04] MEDS ORDERED: INSULIN GLARGINE SOLOSTAR 100 UNITS/ML 3 ML PEN SC SCH (21:00)
[2020-05-05] MEDS ORDERED: INSULIN ASPART 100 UNITS/ML 3 ML PEN SC ONE (02:00)
[2020-05-05] MEDS: LEVOTHYROXINE SODIUM 25 MCG TABLET PO SCH (05:47)
[2020-05-05 06:49] LABS: Basophils # (auto) 0.01 K/uL (0-0.2); Basophils % (auto) 0.1 %; Eosinophils # (auto) 0.04 K/uL (0-0.5); Eosinophils % (auto) 0.3 %; Hematocrit (blood only) 38.4 % (42-52); Hemoglobin 12.5 g/dL (14.0-18.0); Immature Granulocytes # (auto) 0.46 K/uL (0.00-0.02); Immature Granulocytes % (auto) 3.8 %; Lymphocytes # (auto) 4.39 K/uL (1.2-3.4); Mean Corpuscular Hemoglobin 29.9 pg (25-34); Mean Corpuscular Hgb Conc 32.6 g/dL (32-36); Mean Corpuscular Volume 91.9 fL (80-100); Mean Platelet Volume 10.7 fL (7.4-10.4); Monocytes # (auto) 1.43 K/uL (0.11-0.59); Monocytes % (auto) 11.7 %; Neutrophils # (auto) 5.87 K/uL (1.4-6.5); Neutrophils % (auto) 48.1 %; Platelet Count 199 K/uL (130-400); RDW Standard Deviation 50.1 fL (36.4-46.3); Red Blood Count 4.18 M/uL (4.7-6.1)
[2020-05-05 07:24] LABS: BUN Creatinine Ratio 21.8 (10-20); Calcium 8.7 mg/dl (8.5-10.1); Est GFR (African American) 55.8; Est GFR (Non-African American) 48.1; Potassium 3.6 mmol/L (3.5-5.1)
[2020-05-05] MEDS: AMIODARONE 200 MG TAB PO SCH (08:19)
[2020-05-05] MEDS: FLUTICASONE/VILANTEROL 100/25MCG 14 PUFFS/INHALER INH SCH (08:19)
[2020-05-05] MEDS: predniSONE 20 MG TAB PO SCH (08:19)
[2020-05-05] MEDS: UMECLIDINIUM BROMIDE 62.5MCG/BLISTER 7 PUFFS/INHALER INH SCH (08:20)
[2020-05-05] MEDS: PANTOprazole 40 MG TAB PO SCH (08:20)
[2020-05-05] MEDS: ASCORBIC ACID 500 MG TAB PO SCH (08:20)
[2020-05-05] MEDS: MAGNESIUM OXIDE 400 MG TAB PO SCH (08:20)
[2020-05-05] MEDS: ESCITALOPRAM OXALATE 10 MG TAB PO SCH (08:20)
[2020-05-05] MEDS: CYANOCOBALAMIN 500 MCG TABLET (VITAMIN B-12) PO SCH (08:20)
[2020-05-05] MEDS: FERROUS SULFATE 325 MG TAB PO SCH (08:20)
[2020-05-05] MEDS: MULTIVITAMIN TAB PO SCH (08:20)
[2020-05-05] MEDS: INSULIN ASPART 100 UNITS/ML 3 ML PEN SC SCH ×2 (08:21→12:40)
[2020-05-05] MEDS: NovoLIN-N (NPH) PER UNIT CHARGE SQ SCH (08:21)
--- NOTE | 2020-05-05 12:07 | Pharmacy Report ---
Pharmacy Glycemic Short Note 2 - Date of Service May 05, 2020 - Glycemic Short BSG Results (Last 24 hours): OUTPATIENT ANTIDIABETIC REGIMEN: * Lantus 45-60 units daily * Glimepiride 2mg daily * Metformin 1gm PO BID * A1c 8.4% 05/04/20 ASSESSMENT: 05/05: * BSGs very uncontrolled yesterday: [phone]? mg/dL * Received 123 units of insulin yesterday: 70 units basal + 53 units bolus * Fasting BSG was 119 mg/dL this AM - controlled * Lunchtime BSG was 202 mg/dL: * Continues on Prednisone 40 mg PO qAM * Will tighten CF/CR with lunch to account for steroid induced hyperglycemia which most often increases post-prandial BSGs * If Dinner BSG is elevated, will increase NPH dose tomorrow morning 05/04: * Type 2 diabetic admitted for generalized weakness, chest pain, r/o ACS * Patient has been taking prednisone for possible temporal arteritis and this has likely led to worsened glycemic control * Will continue home Lantus dose in the PM, however will add AM NPH dose to coincide with AM prednisone administration * Will utilize Novolog doses based upon "severe" stress level and weight as has been required in the past while receiving steroid therapy PLAN FOR INPATIENT GLYCEMIC CONTROL: * Hold outpatient oral diabetes medications (metformin, glimepiride) * Basal insulin * NPH 20 units Q AM (~0.25 units/kg) with Prednisone 40mg * Lantus 50 units SQ Q HS * Bolus insulin - tightened CF/CR * NovoLog per scale ACHS and at 0200 * Goal Range: Low 110 mg/dL - High 140 mg/dL * Correction Factor: 12 mg/dL/unit * Nutritional / Prandial insulin per carb ratio of 1 unit per 4 grams CHO consumed PLAN FOR DISCHARGE: * to be determined, will ultimately depend upon steroid regimen used on discharge
[2020-05-05] MEDS ORDERED: GLUCOSE 40% GEL 15 GM TUBE PO PRN (12:15)
[2020-05-05] MEDS ORDERED: GLUCOSE 10 TABS/TUBE PO PRN (12:15)
[2020-05-05] MEDS ORDERED: DEXTROSE 50% 50 ML SYRINGE IV PRN (12:15)
[2020-05-05] MEDS ORDERED: GLUCAGON FOR INJ 1 MG VIAL IM PRN (12:15)
[2020-05-05] MEDS ORDERED: CARBOHYDRATES FOR HYPOGLYCEMIA PO PRN (12:15)
--- NOTE | 2020-05-05 12:50 | Discharge Summary ---
Date of Service May 05, 2020 Admission HPI Per Admitting Provider Maninder Gibson is an 80-year-old male who presents to the ER with generalized weakness and abdominal/chest pain. Chest/epigastric pain occurred this morning while having a shower. Unable to give me a full history of this but points the pain was from his chest down to epigastric area. Not related to food. More severe than prior pains he has had over the last 1 to 2 weeks which is been relieved with nitroglycerin. No associated nausea, vomiting, diaphoresis. He was home by himself and made it back to his bed but called his as he felt he needed ambulance into the hospital. Current pain severity 0/10. Associated palpitations last night although his is a pulse oximetry and his heart rate was normal at that time. On review of previous hospitalizations he has had multiple similar presentations with fatigue, generalized weakness, chest/abdominal pain and poor appetite over the last 1-2 years. His does note his short-term memory has become worse over this time period. On prior occasions he has been diagnosed with a GI bleed requiring blood/iron transfusions, diastolic congestive heart failure, PNA, COPD exacerbation and atrial flutter with rapid ventricular rates. He had a prior myocardial perfusion scan in May 2019 suggestive of inferior ischemia however follow-up with cardiology given patient comorbidities and lack of symptoms at current activity levels recommended avoiding further invasive testing at that time. He was most recently admitted from March 27-2019 due to pneumonia, atrial fibrillation with rapid ventricular rate and COPD exacerbation with a similar troponin rise. Outpatient notes suggestive no significant improvement in his breathing despite steroids prescribed for his COPD. His lasix dosing was increased due to concerns about weight gain, leg swelling and worsening shortness of breath. He also developed a right sided headache and was placed back on a steroid taper on April 23 due to concerns for GCA. Since his last discharge he has become slowly progressively more weak. Now requiring a cane to walk as unstable. Appetite is poor. Because stomach hurts so much he will snack all day as this appears to help him for short amount of time. Sometimes burning sensation in his chest although this is different to his more exertional chest pain he experienced today. He notes he chokes on water when not using a straw. No significant change in his bowel movements. Regarding his generalized weakness. His reports not lateralizing, no significant change since his CT scan, no change in speech/hearing/vision. Admission Exam Per Admitting Provider Constitutional: well developed and + frail appearing; + not well nourished and no acute distress Eyes: PERRL, conjunctivae normal, anicteric sclerae ENMT: Ears: no external ear abnormality Nose: no external nose abnormality Mouth: + dry oral mucous membranes Neck: trachea midline, no thyromegaly Respiratory: + uses accessory muscles, + cough (Occasional) and able to speak in complete sentences; no respiratory distress and no retractions Auscultation: + diminished lung sounds (Throughout) and + crackles (Bibasal); no rales, no rhonchi and no wheezes Cardiovascular: Rate/Rhythm: regular rate and regular rhythm (Occasional skipped beats) Heart Sounds: + murmur ([place] systolic) Extremities: normal capillary refill and + pedal edema (Trace ankles bilaterally equal); no calf tenderness Gastrointestinal (Abdomen): Inspection/Auscultation: + abdomen distended and normal bowel sounds Percussion/Palpation: + abdomen tender (Generalized on palpation only) and abdomen soft; no guarding and abdomen not rigid Skin: no rashes, warm and dry (No areas of cellulitis) Neurologic: moves all extremities and awake; no focal motor deficits (No lateralizing) and not confused Motor/Sensory: no tremor, normal movement, no pronator drift and no sensory deficit Coordination: normal [id number]-[id number] test Psychiatric: Orientation: alert and oriented x 3 Affect: + flat affect Genitourinary: no CVA tenderness Principal Diagnosis weakness Discharge Exam GENERAL: No acute distress. Well developed. Vital signs reviewed as above. A/O x3. HENT: Moist mucous membranes. RESPIRATORY: Clear to auscultation bilaterally. No wheezing, rales, or rhonchi. CARDIOVASCULAR: Regular rate and rhythm. 2/6 NELLY. ABDOMEN: Soft, non-tender and non-distended. No palpable masses. Normal bowel so unds. EXTREMITIES: No edema. Non-tender. NEUROLOGIC: No focal neurological deficits. CN II-XII grossly intact, but not individually tested. PSYCHIATRIC: Cooperative. Appropriate mood and affect. Discharge Data Allergies Allergy/AdvReac Type Severity Reaction Status Date / Time moxifloxacin Allergy Severe throat Verified 05/03/20 11:16 swelling ofloxacin Allergy Severe SWELLING Verified 05/03/20 11:16 AROUND FACE Quinolones Allergy Severe ANAPHYLAXIS Verified 05/03/20 11:16 formoterol Allergy Intermediate RASH Verified 05/03/20 11:16 Sulfa (Sulfonamide Allergy Intermediate severe red Verified 05/03/20 11:16 Antibiotics) rash Consultations 05/03/20 15:48 Consult Cardiology Routine 05/04/20 18:06 Consult Case Management - Discharge Planning Routine Ordered Studies 05/03/20 10:52 CT abd pelvis IV con only Stat Hospital Course (1) Elevated troponin: Mr. Gibson is an 80 yo male with complex history who presented to [facility] on 05/03 with several episodes of substernal, non-radiating chest pain during the last month since discharge on 03/31. Generalized weakness - Suspect multifactorial related to CAD (?angina/ACS), atrial fibrillation episodes, COPD, recent PNA, ?dehydrated with glucosuria (recent steroid use), recent diagnosis suspected GCA ?PMR, malnutrition. - Deconditioning also possibly playing a significant role - Improving - Continued supportive care - PT/OT evaluation and treated - PT recommended d/c home with and for services with home therapy -- Case management was consulted to assist with this discharge planning Leukocytosis - Suspect secondary to recent increase in his steroid dosing due to suspected GCA - No overt s/s infection - Followed clinically Elevated troponin - Highly likely demand ischemia - Likely relates to overall acute on chronic comborbidities -- noted to have a positive troponin fairly often. - Cardiology was consulted during the stay and recommended starting Imdur 30mg qAM. Due to hypotensive episodes, will hold on starting Imdur at this time. - Advised patient to f/u with PCP after d/c for further BP management and evaluation Paroxysmal atrial fibrillation - Rate controlled, anticoagulated. Bifascicular block - No syncopal episodes to warrant pacemaker insertion. - holding beta morales due to this Chronic diastolic heart failure - No current acute exacerbation of this - Dehydrated appearance at time of admission. - Recommended increasing fluid intake for adequate hydration Diabetes mellitus type 2 in nonobese - Monitored during admission with pharmacy glycemic consult Temporal arteritis - Recent diagnosis of this. - Currently on steroid taper started 04/23. - Will continue this although no headache at the present time. Iron deficiency anemia - No current anemia. - Decreased ferrous sulfate to once daily to assist with constipation. residential current use of systemic steroids - Continued prednisone taper as above. Obstructive sleep apnea - Continued 2L oxygen at night Hypothyroidism - TSH ok GERD (gastroesophageal reflux disease) - Continue with PPI Oropharyngeal dysphagia - Pt received speech eval SDAT (senile dementia of Alzheimer's type) - Orientated x3. - Monitored for delirium during admission. Depression - Continued Lexapro 10 mg p.o. every morning History of prostate cancer - Status post surgery, no radiation or chemotherapy. History of urinary tract obstruction - Prior history of urinary catheter insertion on last admission. ? Secondary to constipation on last occasion. - Bladder scanned every shift. Chronic obstructive pulmonary disease - No recent PFTs. Chronic bronchitis noted on previous CTs - no emphysematous changes. - Previously noted to have end-stage COPD on chronic prednisone 10 mg p.o. daily. - Continue Trelegy Ellipta or hospital formulary equivalent. - No acute exacerbation. DVT prophylaxis - Continued Xarelto 20 mg p.o. daily (2) Chronic diastolic heart failure: (3) Generalized weakness: (4) Paroxysmal atrial fibrillation: (5) Coronary artery disease: (6) Bifascicular block: (7) Oropharyngeal dysphagia: (8) SDAT (senile dementia of Alzheimer's type): (9) Chronic obstructive pulmonary disease: (10) DVT prophylaxis: (11) Temporal arteritis: (12) Poorly controlled diabetes mellitus: (13) Obstructive sleep apnea: (14) Atrial flutter: Total Time Total Time Spent Total Time Spent (In Minutes): <30 Discharge Plan Discharge Items Patient Disposition: Home - Home Health Services Reason For Visit: CHEST PAIN, R/O MN Discharge Diagnosis: Weakness Activity: Per Instructions section Non-emergency contact: Primary Care Provider Call non-emergency contact if: you have any medication questions, your symptoms worsen, your pain is not controlled and your pain is worsening Follow-up/Referrals: Howard Gunderson MD [Primary Care Provider] - 05/10/20 9:00 am (You have an appt with [facility] SundayMay 10 at 9am. Please arrive 15 minutes prior to your appt time. It is important that you keep this appt, if it does not fit your schedule, please call [phone] to reschedule.) Diet: Heart Healthy Addtl Attending Provider Instructions: Maninder Gibson, It was our pleasure caring for you at [facility] from 05/03/20 to 05/05/20. Your course is described below: Generalized weakness - We suspect that this is related to multiple aspects of your medical history. - Your weakness improved and you were evaluated by physical therapy and occupational therapy. - It was recommended that you be discharged home with therapy services as well. Try to participate in them as much as possible. Remember, keep moving like we discussed today. - As we discussed with you today, it is HIGHLY RECOMMENDED that you increase your fluid intake for adequate hydration - We recommend that you try to drink 3 of the [facility] cups daily (at least 60-70 ounces of fluid a day). It is okay for you to drink your ice tea. -Please also followup with your primary care doctor within the next week after discharge so they can make sure your weakness continues to improve. Elevated troponin - Your history includes coronary artery disease - Your troponin (a heart enzyme) was elevated but did not go up too high and came back down to normal - You were seen by cardiology - Starting a new medication, Imdur, was discussed but due to your low blood pressures we are not going to start you on this new medication at this time - You can follow up with your primary care doctor for blood pressure management and to determine when that medication recommended by cardiology can be started. Constipation -We decreased your home iron supplements so that you took it only ONE time a day (instead of 4 times a day like you were doing at home) in the hospital to help with your constipation. We recommend that you continue to do that at home (stay hydrated as well!) and follow-up with your primary care doctor to make sure that your hemoglobin levels remain stable. Pending Studies at Discharge: No Stand-Alone Forms: [facility] [email or web address], Smoking Cessation Medications and DC Order Prescriptions: New ferrous sulfate 325 mg (65 mg iron) Tablet,Delayed Release (Dr/Ec) 325 mg PO DAILY 30 Days Qty: 30 RF: 0 Continued metformin 1,000 mg tablet 1,000 mg PO BID Qty: 180 RF: 3 escitalopram oxalate 10 mg tablet 10 mg PO QAM Qty: 90 RF: 1 Xarelto 20 mg tablet 20 mg PO QPM Qty: 90 RF: 3 albuterol sulfate 2.5 mg /3 mL (0.083 %) solution for nebulization 2.5 mg INH Q4H PRN (Reason: shortness of breath or wheezing) Qty: 360 RF: 5 izkytyhybpa-wcuhrrspn-pztymclg [Trelegy Ellipta] 100-62.5-25 mcg blister with device 1 inh inhalation DAILY RF: 0 simvastatin 80 mg tablet 40 mg PO HS Qty: 90 RF: 3 omeprazole 40 mg capsule,delayed release(DR/EC) 40 mg PO DAILY Qty: 90 RF: 3 (DME) Lift Chair Misc See Rx Instructions .ROUTE .MEDSUPPLY Qty: 1 RF: 0 (DME) Lift Chair Misc See Rx Instructions .ROUTE .MEDSUPPLY Qty: 1 RF: 0 magnesium oxide 500 mg tablet 500 mg PO BID RF: 0 albuterol sulfate 90 mcg/actuation HFA aerosol inhaler 2 puffs INH Q4H PRN (Reason: Shortness Of Breath) Qty: 8.5 RF: 11 glimepiride 2 mg tablet 2 mg PO DAILY Qty: 90 RF: 3 amiodarone 200 mg tablet 200 mg PO QAM 90 Days Qty: 90 RF: 3 furosemide 20 mg tablet See Rx Instructions .ROUTE .COMPLEX Qty: 90 RF: 3 multivitamin with minerals [Multiple Vitamin-Minerals] Tablet 1 tab PO DAILY RF: 0 levothyroxine 75 mcg Tablet 37.5 mcg PO Q2D RF: 0 cyanocobalamin (vitamin B-12) [Vitamin B-12] 500 mcg Tablet 500 mcg PO DAILY RF: 0 ascorbic acid (vitamin C) [Vitamin C] 500 mg Tablet 500 mg PO DAILY RF: 0 prednisone 10 mg tablet 40 mg PO DAILY RF: 0 Lantus Solostar U-100 Insulin 100 unit/mL (3 mL) insulin pen 60 units SC DAILY RF: 0 levothyroxine 75 mcg tablet 75 mcg PO Q2D RF: 0 Discontinued ferrous sulfate [iron] 325 mg (65 mg iron) Tablet 325 mg PO QID RF: 0 Discharge Orders: Discharge Order (Routine); Ordered 05/05/20 Ordered By: Ayana Hoff/Other Patient Handouts: Managing Type 2 Diabetes Admission Data Admit Date/Time: 05/03/20 14:56 Attending Provider: Mathew Jaramillo Admit Provider: Tarik Lindquist Primary Care Provider: Howard Gunderson Other Providers: Tarik Lindquist ; Mohit Perez Other Interventions: Discharge Summary Assessment (RN) Last Done: 05/05/20 14:30 Supervising Physician Co-Signing Physician Notes I personally examined the patient and verified all pleitez points of history and exam, discussed case, and agree with decision making with Dr Heredia. feeling better family present discussed plans OK for home vitals noted nad heent nc at mmm breathing unlabored no accessory muscles good effort skin no rashes no pallor or icterus nonspecific weakness/deconditioning - stable for home, outpt PT otherwise as above
--- NOTE | 2020-05-05 17:54 | Billing Data ---
Date of Service May 05, 2020 Coding Level of Care Code 71428 OBS Care - Discharge
[2020-05-07] MEDS ORDERED: predniSONE 10 MG TABLET PO SCH (09:00)
== END 2020-05-05 15:33 | disposition home health service (06) ==
LOC: ED 10:43 → 2E 10:43 → SUATTDRO 14:56 → 2E 15:27 → 2N 05-04 18:41

== ENCOUNTER 2020-06-01 12:03 | Inpatient (IN) ==
[2020-06-01] MEDS ORDERED: IOVERSOL 100ml IV ONE (12:30)
--- NOTE | 2020-06-01 12:31 | Emergency Department Note ---
Impression & Plan Multiple fractures of rib involving four or more ribs, Fall, Abrasion of scalp ED Provider Note Provider: Christiano Sequeira MD DATE OF SERVICE:06/01/2020 CHIEF COMPLAINT: Fall HISTORY OF PRESENT ILLNESS: Patient is a 80-year-old gentleman with a history of paroxysmal atrial flutter/fibrillation on Xarelto, hypertension, GERD, hypothyroidism, prostate cancer presenting here today via ambulance from home. Patient states overnight last night he was getting out of his bed to go to the bathroom he believes and fell. Is unable to give significant details but thinks it may have been around 1 AM. Patient states he fell onto his right side on the floor. Patient states he did have his cane with him. Patient states he was able to with the assistance of a chair get up and get back to bed. States his heard the bang but they rested this morning until coming here for further evaluation. Patient states took some Tylenol earlier which is helped with some pain which he is experiencing in the right posterior shoulder and around the right side of his chest. Patient denies pain in his right elbow forearm or wrist. Patient states he did strike his head is a small abrasion to his head but denies any significant headache or visual change. Denies neck pain at this point or left-sided chest pain or left upper extremity injury. Denies abdominal pain, right flank pain, or pelvic pain. Denies injury to the lower extremities. Patient states he is unsure how he fell. Pain is worse with a deep breath. later arrives and states that she thinks his pain may have gotten stuck re ceived use the bathroom and gone to the kitchen was on his way back when he fell. She states called the ambulance as his pain was fairly severe earlier otherwise she states it was not it would not be here. REVIEW OF SYSTEMS: A total of 10 review of systems was obtained and negative except as stated above in the HPI. PAST MEDICAL HISTORY: As noted above MEDICATIONS: Reviewed home medication list SOCIAL HISTORY: Lives at home with PHYSICAL EXAM: GENERAL: alert and oriented in no acute distress on stretcher Head: normocephalic with a very small abrasion on the occiput without any gaping wound or foreign body appreciated. No crepitus or depression grossly appreciated. No active bleeding. EYES: No injection, discharge or icterus. PERRL NECK: Trachea midline. Supple. No posterior midline tenderness ENT: Mucous membranes pink and moist. LUNGS: Airway patent. No retractions. Breath sounds clear with good air entry bilaterally. HEART: Regular rate and rhythm. Some mild right-sided chest wall tenderness into the right upper thoracic back. ABDOMEN: Soft and non-tender, without guarding or rebound. BACK: No bilateral flank tenderness. Right upper thoracic back tenderness. SKIN: Acyanotic, warm, dry. EXTREMITIES: Without swelling, tenderness or deformity except for a few small contusions overlying the right forearm less than 2 cm each without open laceration. There is no significant tenderness of the right elbow, forearm, wrist, or hand. NEUROLOGICAL: No focal deficits. No aphasia. No facial droop or slurred speech. Normal strength and tone in the extremities. EK bpm sinus rhythm with first-degree AV block. Right bundle branch and left anterior fascicular block noted. No acute ST segment elevation noted. In comparison to previous from May 03 of this year no significant change. CONTINUOUS CARDIAC MONITORING: was ordered and showed a heart rate of 68 bpm in sinus rhythm with first-degree AV block GCS 15 Patient's laboratory studies and imaging reviewed. Differential includes Fracture, dislocation, contusion, intra-abdominal, pneumothorax, intrathoracic, intracranial, neurologic, compartment syndrome, rhabdomyolysis, as well as other pathologies. IMPRESSION/MEDICAL DECISION MAKING: Patient presents after a fall last night of unclear etiology. Was able to get up off the floor presenting in a delayed manner this morning complained predominantly of right-sided chest and upper back pain. Concern for possible rib fracture given the distribution. Bilateral lung sounds and doubt pneumothorax. Small abrasion of the occiput the head without need for closure. X-ray the shoulder was obtained but no significant tenderness in the right upper extremity otherwise completely overlying the right elbow forearm or wrist. Do not believe any additional imaging down the arm. CT the head, cervical spine, thoracic and lumbar spine, chest, and abdomen pelvis were obtained to look for occult traumatic injury especially in light of his anticoagulated status. Small abrasion on top of the head does not require closure. Basic labs and EKG are obtained as well as he is unable to give a real reason for the fall last night although is likely mechanical as he was in the dark with his cane. Laboratory studies show a slight leukocytosis fairly similar to recent values as well as slight anemia not that far off recent values. Normal platelet count. Renal function appears stable. Small detectable but not abnormal troponin less than previous noted. No significant electrolyte abnormality. No transaminitis. Shoulder x-ray without evidence of bony injury to the shoulder although multiple rib fractures are appreciated on the plain film. CT the head and cervical spine without acute traumatic injury noted. CT of the thoracic and lumbar spine without acute fracture. CT the abdomen pelvis with acute intra- abdominal injury noted. CT of the chest unfortunately showed right ribs 3 through 6 fracture with a tiny right hemothorax. No pneumothorax identified. No traumatic thoracic aortic injury noted. Patient still with some pain given Tylenol and Toradol here. Discussed with patient and . Recommend given his pain issues further observation here in the hospital. The hospitalist was contacted. DIAGNOSIS: Fall, right third through sixth rib fractures DISPOSITION: Hospitalist will evaluate Patient and for agreeable with this plan. 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 Mild HOCM (hypertrophic obstructive cardiomyopathy) Nephrolithiasis Obstructive sleep apnea On anticoagulant therapy xarelto daily On home oxygen therapy 2L N/C at hs Organic impotence Pericardial effusion Pleural effusion HX OF Prostate cancer Steroid-induced osteopenia Surgical History H/O cystoscopy "History of Cystoscopy With Insertion Of Ureteral Stent" on CCD H/O tooth extraction History of bronchoscopy History of cardiac radiofrequency ablation History of prostatectomy History of repair of right rotator cuff Hx of colonoscopy Hx of esophagogastroduodenoscopy Family History Sister Ovarian cancer Mother Skin cancer Myocardial infarction Grandfather Myocardial infarction Other No family history of adverse response to anesthesia Stroke Denies family history of Prostate cancer Breast cancer Colorectal cancer Social History Smoking Status: Never smoker Second Hand Exposure: No; Hx Alcohol Use: No Hx Substance Use: No Preferred Language: Indian Communication Ability: Effective Visual Impairment: No Limitations Hearing Ability: Use of Hearing Aid Spinning Frame Tender Required: No Beliefs That Will Affect Care: None marital status: Current Living Situation: Spouse current occupational status: retired Feels Safe at Home: Yes Childhood Exposure to Second-Hand Smoke: No caffeine: Yes during the past year weight has: remained stable Dental Care, Regularly: No Physical Activity Frequency: Does not Exercise Seatbelt Use: always Sunscreen Use: No Assistive Devices: Walker Allergies Allergies Allergy/AdvReac Type Severity Reaction Status Date / Time moxifloxacin Allergy Severe throat Verified 06/01/20 14:05 swelling ofloxacin Allergy Severe SWELLING Verified 06/01/20 14:05 AROUND FACE Quinolones Allergy Severe ANAPHYLAXIS Verified 06/01/20 14:05 formoterol Allergy Intermediate RASH Verified 06/01/20 14:05 Sulfa (Sulfonamide Allergy Intermediate severe red Verified 06/01/20 14:05 Antibiotics) rash Home Meds Home Medications Medication Instructions Recorded Confirmed cyanocobalamin (vitamin B-12) 500 mcg PO HS 05/02/19 06/01/20 [Vitamin B-12] magnesium oxide 500 mg tablet 500 mg PO BID tab 05/07/19 06/01/20 multivitamin with minerals 1 tab PO QAM 03/27/20 06/01/20 [Multiple Vitamin-Minerals] ascorbic acid (vitamin C) [Vitamin 500 mg PO QAM 05/03/20 06/01/20 C] furosemide 20 mg tablet See Rx Instructions PO DAILY 05/06/20 06/01/20 levothyroxine 75 mcg capsule See Rx Instructions PO DAILY 05/06/20 06/01/20 insulin glargine 100 unit/mL (3 45 unit SC QAM ml 05/18/20 06/01/20 mL) subcutaneous pen prednisone 10 mg tablet 10 mg PO QAM tab 05/18/20 06/01/20 Xarelto 20 mg PO HS 06/01/20 06/01/20 ferrous sulfate 325 mg PO HS 06/01/20 06/01/20 glimepiride 2 mg PO QAM 06/01/20 06/01/20 omeprazole 40 mg PO QAM 06/01/20 06/01/20 Previous Rx's Medication Instructions Recorded albuterol sulfate 2.5 mg INH Q4H PRN #360 ml 11/25/19 albuterol sulfate 90 mcg/actuation 2 puffs INH Q4H PRN #8.5 gm 02/11/20 aerosol inhaler simvastatin 80 mg tablet 40 mg PO HS #90 tab 03/03/20 amiodarone 200 mg tablet 200 mg PO QAM 90 Days #90 tab 04/08/20 Lift Chair #1 ea 05/03/20 Lift Chair #1 ea 05/03/20 escitalopram oxalate 20 mg tablet 20 mg PO QAM #90 tab 05/13/20 metformin 1,000 mg tablet 1,000 mg PO BID #180 tab 05/21/20 Results & Data (ED) Vital Signs Vital Signs - 24 hr 06/01/20 12:26 06/01/20 13:08 06/01/20 14:03 Temperature 36.6 C Temperature Source Oral Pulse Rate 73 Pulse Rate [Apical] 70 Pulse Rhythm [Apical] Pulse Strength [Apical] Respiratory Rate 20 20 Respiratory Effort / Characteristics Non-Labored Spontaneous Non-Labored Spontaneous Respiratory Depth Normal Normal Respiratory Pattern Regular Regular Blood Pressure 141/70 H Blood Pressure [Right Arm] 119/70 Blood Pressure Mean 93 Blood Pressure Mean [Right Arm] 86 Blood Pressure Position [Right Arm] Pulse Oximetry 96 95 96 Oxygen Delivery Method Room Air Room Air Room Air Sepsis Recent Fever Within 48 Hours No Sepsis New/Unexplained Change in Mental Status N/A Sepsis Action Taken by Nursing No Action Required 06/01/20 16:00 Temperature Temperature Source Pulse Rate Pulse Rate [Apical] 70 Pulse Rhythm [Apical] Regular Pulse Strength [Apical] Normal Respiratory Rate 20 Respiratory Effort / Characteristics Non-Labored Respiratory Depth Normal Respiratory Pattern Regular Blood Pressure Blood Pressure [Right Arm] 125/67 Blood Pressure Mean Blood Pressure Mean [Right Arm] 86 Blood Pressure Position [Right Arm] Lying Pulse Oximetry 96 Oxygen Delivery Method Room Air Sepsis Recent Fever Within 48 Hours Sepsis New/Unexplained Change in Mental Status Sepsis Action Taken by Nursing Laboratory Data Result diagrams: 06/01/20 12:45 06/01/20 12:45 Lab Results 06/01/20 06/01/20 06/01/20 Range/Units 12:45 12:45 12:45 WBC 13.46 H (4.8-10.8) K/uL RBC 3.94 L (4.7-6.1) M/uL Hgb 11.7 L (14.0-18.0) g/dL Hct 36.3 L (42-52) % MCV 92.1 (80-100) fL MCH 29.7 (25-34) pg MCHC 32.2 (32-36) g/dL RDW Std Deviation 50.3 H (36.4-46.3) fL RDW Coeff of Ruddy 14.8 H (11.5-14.5) % Plt Count 249 (130-400) K/uL MPV 9.6 (7.4-10.4) fL Immature Gran % (Auto) 3.0 % Neut % (Auto) 50.0 % Lymph % (Auto) 33.8 % Mckenzie % (Auto) 12.8 % Eos % (Auto) 0.3 % Baso % (Auto) 0.1 % Neut # (Auto) 6.73 H (1.4-6.5) K/uL Lymph # (Auto) 4.55 H (1.2-3.4) K/uL Mckenzie # (Auto) 1.72 H (0.11-0.59) K/uL Eos # (Auto) 0.04 (0-0.5) K/uL Baso # (Auto) 0.02 (0-0.2) K/uL Immature Gran # (Auto) 0.40 H (0.00-0.02) K/uL PT 15.1 H (9.0-12.0) Seconds INR 1.5 H (0.9-1.1) Sodium 137 (136-145) mmol/L Potassium 4.0 (3.5-5.1) mmol/L Chloride 102 (98-107) mmol/L Carbon Dioxide 28 (21-32) mmol/L Anion Gap 7.0 (3-11) BUN 23 H (7-18) mg/dl Creatinine 1.31 (0.6-1.4) mg/dl Est Cr Clr Drug Dosing 47.7 ml/min Est GFR ( Amer) 58.4 Est GFR (Non-Af Amer) 50.3 BUN/Creatinine Ratio 17.8 (10-20) Glucose 156 H (70-99) mg/dl Calcium 9.4 (8.5-10.1) mg/dl Total Bilirubin 0.5 (0.2-1) mg/dl AST 12 L (15-37) U/L ALT 19 (12-78) U/L Alkaline Phosphatase 59 (45-117) U/L Total Creatine Kinase 149 (39-308) U/L Troponin I 0.030 (0-0.045) ng/ml Total Protein 6.5 (6.4-8.2) gm/dl Albumin 3.0 L (3.4-5.0) gm/dl Globulin 3.5 (2.5-4.0) gm/dl Albumin/Globulin Ratio 0.9 (0.9-2) Urine Color Urine Appearance (Clear) Urine pH (4.5-7.5) Ur Specific Beaver (1.000-1.030) Urine Protein (Negative) Urine Glucose (UA) (Negative) Urine Ketones (Negative) Urine Blood (Negative) Urine Nitrite (Negative) Urine Bilirubin (Negative) Urine Urobilinogen (Negative) Ur Leukocyte Esterase (Negative) Urine RBC (0-4) /hpf Urine WBC (0-5) /hpf Ur Epithelial Cells (0-5) /lpf Urine Bacteria (Negative) Urine Mucus (None Prsent) 06/01/20 Range/Units 15:59 WBC (4.8-10.8) K/uL RBC (4.7-6.1) M/uL Hgb (14.0-18.0) g/dL Hct (42-52) % MCV (80-100) fL MCH (25-34) pg MCHC (32-36) g/dL RDW Std Deviation (36.4-46.3) fL RDW Coeff of Ruddy (11.5-14.5) % Plt Count (130-400) K/uL MPV (7.4-10.4) fL Immature Gran % (Auto) % Neut % (Auto) % Lymph % (Auto) % Mckenzie % (Auto) % Eos % (Auto) % Baso % (Auto) % Neut # (Auto) (1.4-6.5) K/uL Lymph # (Auto) (1.2-3.4) K/uL Mckenzie # (Auto) (0.11-0.59) K/uL Eos # (Auto) (0-0.5) K/uL Baso # (Auto) (0-0.2) K/uL Immature Gran # (Auto) (0.00-0.02) K/uL PT (9.0-12.0) Seconds INR (0.9-1.1) Sodium (136-145) mmol/L Potassium (3.5-5.1) mmol/L Chloride (98-107) mmol/L Carbon Dioxide (21-32) mmol/L Anion Gap (3-11) BUN (7-18) mg/dl Creatinine (0.6-1.4) mg/dl Est Cr Clr Drug Dosing ml/min Est GFR ( Amer) Est GFR (Non-Af Amer) BUN/Creatinine Ratio (10-20) Glucose (70-99) mg/dl Calcium (8.5-10.1) mg/dl Total Bilirubin (0.2-1) mg/dl AST (15-37) U/L ALT (12-78) U/L Alkaline Phosphatase (45-117) U/L Total Creatine Kinase (39-308) U/L Troponin I (0-0.045) ng/ml Total Protein (6.4-8.2) gm/dl Albumin (3.4-5.0) gm/dl Globulin (2.5-4.0) gm/dl Albumin/Globulin Ratio (0.9-2) Urine Color Belen Urine Appearance Turbid A (Clear) Urine pH >= 9.0 H (4.5-7.5) Ur Specific Beaver <= 1.005 (1.000-1.030) Urine Protein 2+ H (Negative) Urine Glucose (UA) Negative (Negative) Urine Ketones Trace H (Negative) Urine Blood 3+ H (Negative) Urine Nitrite Positive A (Negative) Urine Bilirubin Negative (Negative) Urine Urobilinogen Negative (Negative) Ur Leukocyte Esterase 3+ H (Negative) Urine RBC >30 H (0-4) /hpf Urine WBC >30 H (0-5) /hpf Ur Epithelial Cells 10-20 H (0-5) /lpf Urine Bacteria 3+ H (Negative) Urine Mucus Present A (None Prsent) Administered Medications Discontinued Medications Acetaminophen (Acetaminophen 500 Mg Tab) 1,000 mg PO NOW STA Stop: 06/01/20 15:44 Last Admin: 06/01/20 16:17 Dose: 1,000 mg Documented by: [id number] Fentanyl Citrate (Fentanyl Citrate 100 Mcg/2 Ml Vial) 25 mcg IV NOW STA Stop: 06/01/20 12:53 Last Admin: 06/01/20 13:06 Dose: 25 mcg Documented by: [id number] Fentanyl Citrate (Fentanyl Citrate 100 Mcg/2 Ml Vial) 50 mcg IV NOW STA Stop: 06/01/20 15:05 Last Admin: 06/01/20 15:14 Dose: 50 mcg Documented by: [id number] Ioversol (Ioversol 100ml) 93 ml IV ONCE ONE Stop: 06/01/20 12:31 Last Admin: 06/01/20 12:30 Dose: 93 ml Documented by: [id number] Ketorolac Tromethamine (Ketorolac Tromethamine 15 Mg/Ml Vial) 10 mg IV NOW ONE Stop: 06/01/20 15:44 Last Admin: 06/01/20 16:17 Dose: 10 mg Documented by: [id number] Discharge Plan Visit Data Chief Complaint: Fall Stated Complaint: Fall last night with r sided pain ED Provider: Christiano Sequeira Discharge Problem: Multiple fractures of rib involving four or more ribs, Fall, Abrasion of scalp Patient Disposition: Being Evaluated by Hospitalist Forms Stand Alone Forms: [facility] Prescriptions Prescriptions: No Action albuterol sulfate 2.5 mg /3 mL (0.083 %) solution for nebulization 2.5 mg INH Q4H PRN (Reason: shortness of breath or wheezing) Qty: 360 RF: 5 [id number] [Trelegy Ellipta] 100-62.5-25 mcg blister with device 1 inh inhalation QAM RF: 0 simvastatin 80 mg tablet 40 mg PO HS Qty: 90 RF: 3 (DME) Lift Chair Misc See Rx Instructions .ROUTE .MEDSUPPLY Qty: 1 RF: 0 (DME) Lift Chair Misc See Rx Instructions .ROUTE .MEDSUPPLY Qty: 1 RF: 0 metformin 1,000 mg tablet 1,000 mg PO BID Qty: 180 RF: 3 magnesium oxide 500 mg tablet 500 mg PO BID RF: 0 albuterol sulfate 90 mcg/actuation HFA aerosol inhaler 2 puffs INH Q4H PRN (Reason: Shortness Of Breath) Qty: 8.5 RF: 11 amiodarone 200 mg tablet 200 mg PO QAM 90 Days Qty: 90 RF: 3 escitalopram oxalate 20 mg tablet 20 mg PO QAM Qty: 90 RF: 3 levothyroxine 75 mcg capsule See Rx Instructions PO DAILY RF: 0 furosemide 20 mg tablet See Rx Instructions PO DAILY RF: 0 multivitamin with minerals [Multiple Vitamin-Minerals] Tablet 1 tab PO QAM RF: 0 omeprazole 40 mg capsule,delayed release(DR/EC) 40 mg PO QAM RF: 0 glimepiride 2 mg tablet 2 mg PO QAM RF: 0 ferrous sulfate 325 mg (65 mg iron) tablet,delayed release (DR/EC) 325 mg PO HS RF: 0 Xarelto 20 mg tablet 20 mg PO HS RF: 0 cyanocobalamin (vitamin B-12) [Vitamin B-12] 500 mcg Tablet 500 mcg PO HS RF: 0 ascorbic acid (vitamin C) [Vitamin C] 500 mg Tablet 500 mg PO QAM RF: 0 prednisone 10 mg tablet 10 mg PO QAM RF: 0 Lantus Solostar U-100 Insulin 100 unit/mL (3 mL) insulin pen 45 unit SC QAM RF: 0 Referrals Referrals: Howard Gunderson MD [Primary Care Provider] - Discharge Problem: Fall Qualifiers: Encounter type: initial encounter Qualified Code(s): W19.XXXA - Unspecified f all, initial encounter Abrasion of scalp Qualifiers: Encounter type: initial encounter Qualified Code(s): S00.01XA - Abrasion of scalp, initial encounter
[2020-06-01] MEDS ORDERED: fentaNYL citrate 100 MCG/2 ML VIAL IV STA ×2 (12:52→15:04)
[2020-06-01 12:53] LABS: Basophils # (auto) 0.02 K/uL (0-0.2); Basophils % (auto) 0.1 %; Eosinophils # (auto) 0.04 K/uL (0-0.5); Eosinophils % (auto) 0.3 %; Hematocrit (blood only) 36.3 % (42-52); Hemoglobin 11.7 g/dL (14.0-18.0); Lymphocytes # (auto) 4.55 K/uL (1.2-3.4); Lymphocytes % (auto) 33.8 %; Mean Corpuscular Hemoglobin 29.7 pg (25-34); Mean Corpuscular Hgb Conc 32.2 g/dL (32-36); Mean Corpuscular Volume 92.1 fL (80-100); Mean Platelet Volume 9.6 fL (7.4-10.4); Monocytes # (auto) 1.72 K/uL (0.11-0.59); Monocytes % (auto) 12.8 %; Neutrophils # (auto) 6.73 K/uL (1.4-6.5); Platelet Count 249 K/uL (130-400); RDW Coefficient of Variation 14.8 % (11.5-14.5); RDW Standard Deviation 50.3 fL (36.4-46.3); Red Blood Count 3.94 M/uL (4.7-6.1); White Blood Count 13.46 K/uL (4.8-10.8)
[2020-06-01 13:10] LABS: BUN Creatinine Ratio 17.8 (10-20); Calcium 9.4 mg/dl (8.5-10.1); Creatinine Clr Calc Pharmacy 47.7 ml/min; Est GFR (African American) 58.4; Est GFR (Non-African American) 50.3
[2020-06-01 13:11] LABS: INR 1.5 (0.9-1.1); Prothrombin Time 15.1 Seconds (9.0-12.0)
[2020-06-01 13:16] LABS: Albumin Globulin Ratio 0.9 (0.9-2); Bilirubin,Total 0.5 mg/dl (0.2-1); Globulin 3.5 gm/dl (2.5-4.0); Total Protein 6.5 gm/dl (6.4-8.2); Troponin I 0.03 ng/ml (0-0.045)
--- NOTE | 2020-06-01 14:10 | XRay Report ---
XR shoulder RT min 2V routine CLINICAL HISTORY: fall COMPARISON: None FINDINGS: There is elevation of the right humeral head. Alignment of the right shoulder is otherwise anatomic. No evidence for dislocation. There is no acute fracture. There is no osseous lesion. There is moderate osteoarthritis of the right acromioclavicular and clavicular humeral joint. Osteophytes along the acromium are noted. Note is made of multiple acute displaced right-sided rib fractures. The re are fractures of the right fourth, fifth and sixth ribs. Small right pleural effusion is partially imaged. No pneumothorax is shown on this exam. IMPRESSION: 1. No acute fracture or dislocation within the right shoulder. 2. Acute fractures of the right fourth through sixth ribs. Right pleural effusion. No pneumothorax wi thin visualized portions of the right chest. 3. Moderate osteoarthritis of the right shoulder. ACT 112: Negative or not required by law. Electronically signed by: Cesar Faye M.D. 06/01/2020 2:08 PM
--- NOTE | 2020-06-01 14:24 | Electrocardiogram Report ---
Test Reason : Blood Pressure : / mmHG Vent. Rate : 071 BPM Atrial Rate : 071 BPM P-R Int : 228 ms QRS Dur : 144 ms QT Int : 480 ms P-R-T Axes : 000 -81 058 degrees QTc Int : 521 ms Sinus rhythm with 1st degree A-V block Right bundle branch block Left anterior fascicular block Bifascicular block Abnormal ECG When compared with ECG of 03-MAY-2020 10:47, No significant change was found Confirmed by Mohit Perez ([id number]) on 06/01/2020 2:23:41 PM Referred By: REFERRED SELF Confirmed By:Mohit Perez
--- NOTE | 2020-06-01 15:08 | CT Scan Report ---
CT OF THE CERVICAL SPINE CLINICAL HISTORY: Neck pain status post trauma COMPARISON STUDY: 12/01/2013 CT DOSE: TECHNIQUE: CT scan of the cervical spine was performed from the skull base to the thoracic inlet. Eloisa ges are reviewed in the axial, sagittal, and coronal planes. IV contrast was not administered for thi s examination. A dose lowering technique was utilized adhering to the principles of ALARA. FINDINGS: The visualized portions of the lung apices reveal no evidence of pneumothorax. The prevertebral soft tissues are normal. No fractures or subluxations are visualized. There are multilevel degenerative changes IMPRESSION: No evidence of acute fracture or traumatic subluxation. ACT 112: Negative or not required by law. Electronically signed by: Rodger Robison M.D. 06/01/2020 3:06 PM
--- NOTE | 2020-06-01 15:09 | CT Scan Report ---
CT OF THE HEAD WITHOUT CONTRAST CLINICAL HISTORY: fall on ronaldoAssemblage, jaron head COMPARISON STUDY: Head CT April 23, 2020. MRI of the brain May 28, 2020. TECHNIQUE: Helical axial images of the head were obtained without IV contrast. Automated exposure con trol was utilized for the study. A dose lowering technique was utilized adhering to the principles o f ALARA. FINDINGS: No acute intracranial hemorrhage, midline shift or mass effect is present. Mild atrophy is noted. The appearance of the brain is unchanged. The ventricular system is unremarkable. The basilar cisterns are patent. No extra-axial collections are present. There are no findings to suggest acute d ural sinus thrombosis or acute territorial infarct. No significant calvarial abnormalities are presen t. Visualized portions of the sinuses and mastoid air cells are clear. IMPRESSION: 1. No acute intracranial findings. 2. No calvarial fracture. ACT 112: Negative or not required by law. Electronically signed by: Cesar Faye M.D. 06/01/2020 3:07 PM
--- NOTE | 2020-06-01 15:14 | CT Scan Report ---
CT abd pelvis IV con only CLINICAL HISTORY: Abdominal pain status post trauma COMPARISON STUDY: 05/03/2020 TECHNIQUE: Patient was scanned in a dynamic helical fashion during intravenous administration of 93 c c of Optiray 320 A dose lowering technique was utilized adhering to the principles of ALARA. CT DOSE: FINDINGS: Lower chest: The visualized portions of the lung bases reveal no evidence of pneumothorax. There are basilar atelectatic changes. Liver: The contrast-enhanced liver is normal in size, contour, and attenuation. There is no intrahepa tic biliary ductal dilatation. The hepatic veins and portal veins are patent. Gallbladder: Unremarkable. Spleen: Normal in size and attenuation. Pancreas: Unremarkable. Adrenal glands: Unremarkable. Laterally Kidneys: There is a punctate nonobstructing lower pole right renal calculus. Is a 2 cm left renal cys t. There is no evidence of acute renal injury Bowel: There are no transition zones indicate bowel obstruction. There is no pathologic interloop flu id. There are no extraluminal gas collections. The appendix appears normal. There is no evidence of a cute diverticulitis Peritoneum: There is no intraperitoneal free air or abdominal ascites. Vasculature: The abdominal aorta is normal in course and caliber. Adenopathy: None. Pelvic viscera: The patient appears be status post a prior prostatectomy. There is bladder wall thick ening. Skeletal structures: There is a healing left posterior 11th rib fracture. No acute fractures are visu alized. There is a nonspecific 4 mm lytic focus involving the left eighth rib. There is a nonspecific 3 mm lytic focus within the right seventh rib. IMPRESSION: 1. No evidence of acute abdominal or pelvic injury 2. Nonspecific subcentimeter lytic foci within the ribs ACT 112: Negative or not required by law. Electronically signed by: Rodger Robison M.D. 06/01/2020 3:13 PM
--- NOTE | 2020-06-01 15:22 | CT Scan Report ---
THORACIC SPINE CT, LUMBAR SPINE CT CT DOSE: 2814.50 mGy.cm HISTORY: Mid and low back pain. fall TECHNIQUE: Multiaxial CT images of the thoracic and lumbar spine were performed and reformatted in th e sagittal and coronal plane without the use of contrast. A dose lowering technique was utilized adh ering to the principles of ALARA. COMPARISON: None. FINDINGS: Thoracic spine CT: Minimal anterior wedging at T7 and is likely chronic. No paravertebral soft tissue edema to suggest an acute injury. No acute fractures of fixation within the thoracic spine. Trace ri ght pleural effusion. Nondisplaced right posterior third through sixth rib fractures. Lumbar spine CT: No fractures or subluxation within the lumbar spine. The visualized sacrum appears i ntact. Paravertebral soft tissues are within normal limits. No significant central canal narrowing by CT technique. Disc spaces are preserved. IMPRESSION: 1. No acute fractures within the thoracic or lumbar spine. 2. Nondisplaced right posterior third through sixth rib fractures. 3. Trace right pleural effusion. ACT 112: Negative or not required by law. Electronically signed by: Sandor Murdock M.D. 06/01/2020 3:21 PM
--- NOTE | 2020-06-01 15:22 | CT Scan Report ---
CT OF THE CHEST WITH IV CONTRAST CLINICAL HISTORY: fall, R sided chest pain, ?frx COMPARISON STUDY: Chest CT March 28, 2020. Chest radiograph May 03, 2020. TECHNIQUE: Following IV administration of 93 mL of Optiray-320, helical axial images of the chest we re obtained. Sagittal and coronal reconstructions were viewed as well as maximal intensity projectio ns on an independent 3-D workstation. Automated exposure control was utilized for the study. A dose lowering technique was utilized adhering to the principles of ALARA. FINDINGS: There is no evidence for traumatic injury to the thoracic aorta. The heart is moderately e nlarged. There is no pericardial effusion. A trace right pleural effusion is noted. This is hyperdens e. This favors a hemothorax. There is no pneumothorax. Note is made of acute nondisplaced fractures o f the posterior right fifth and sixth ribs. In addition, there are acute nondisplaced fractures of th e lateral right fourth, sixth and seventh ribs with an acute mildly displaced fracture of the lateral right fifth rib. No acute thoracic spine fracture is noted. Groundglass and linear opacities within the lungs reflect atelectasis. There is no thoracic lymphadenopathy. Abdomen and pelvis will be repor michelle separately. A 1 cm segment 7 hypervascular hepatic focus is likely benign. IMPRESSION: 1. No evidence for traumatic injury to the thoracic aorta. 2. Acute fractures of the lateral right fourth through seventh ribs and the posterior right fifth and sixth ribs. Lateral right fifth rib fracture mildly displaced. Tiny right hemothorax. No pneumothora x. ACT 112: Negative or not required by law. Electronically signed by: Cesar Faye M.D. 06/01/2020 3:21 PM
[2020-06-01] MEDS ORDERED: KETOROLAC TROMETHAMINE 15 MG/ML VIAL IV ONE (15:43)
[2020-06-01] MEDS ORDERED: ACETAMINOPHEN 500 MG TAB PO STA (15:43)
[2020-06-01 16:15] LABS: Appearance Urine Turbid (Clear); Bilirubin Urine Negative (Negative); Blood Urine 3+ (Negative); Color Urine Amber; Glucose Urine UA Negative (Negative); Ketones Urine Trace (Negative); Leukocyte Esterase Urine 3+ (Negative); Nitrite Urine Positive (Negative); Protein Urine 2+ (Negative); Specific Gravity Urine <= 1.005 (1.000-1.030); Urobilinogen Urine Negative (Negative); pH Urine >= 9.0 (4.5-7.5)
[2020-06-01 16:18] LABS: Sulfosalicylic Acid Urine Positive (Negative)
[2020-06-01 16:19] LABS: Bacteria Urine 3+ (Negative); Mucus Urine Present (None Prsent); RBC Urine >30 /hpf (0-4); WBC Urine >30 /hpf (0-5)
--- NOTE | 2020-06-01 16:26 | History & Physical Report ---
Date of Service June 01, 2020 Assessment & Plan (1) Multiple fractures of rib involving four or more ribs: May control with acetaminophen +/-tramadol as needed, will add additional medications if needed. Incentive spirometry. PT/OT eval and treat. (2) Lytic bone lesions on xray: Noted incidentally on CT. follow-up outpatient. (3) Fall: PT/OT. Longstanding ambulatory dysfunction. No further workup planned. (4) Leukocytosis: Chronically elevated at baseline in the setting of steroid use. (5) Atrial flutter, paroxysmal: Rhythm control with amiodarone 200 mg p.o. daily. Xarelto on hold temporarily due to rib fractures (6) Chronic diastolic CHF (congestive heart failure): No acute exacerbation. Continue home dosing of Lasix. (7) GERD (gastroesophageal reflux disease): Switch omeprazole for pantoprazole as per hospital formulary (8) History of prostate cancer: Status post surgery, no radiation or chemotherapy. (9) Chronic bronchitis: No recent PFTs. Chronic bronchitis noted on previous CTs - no emphysematous changes. 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 daily. Continue Trelegy Ellipta or hospital formulary equivalent. No acute exacerbation. (10) Coronary arteriosclerosis: Suspected based on prior myocardial perfusion scan. Continue simvastatin 40 mg p.o. at bedtime (11) Type 2 diabetes mellitus: HbA1C 8.8 in March, will repeat with a.m. labs. Discontinue glimepiride and Metformin. Continue Lantus 45 units SQ QAM, NovoLog sliding scale aim 110-140, correction 15 mg/dL/unit, carb ratio 1:5 (12) Hypothyroidism: TSH WNL in April. Continue usual home dose levothyroxine. (13) DVT prophylaxis: SCDs. Xarelto on hold as above Admission and Anticipated Discharge Date Admission Date: 06/01/2020 History of Present Illness Chief Complaint: Fall, right-sided chest pain Primary Care Provider: Artis Gunderson MD Maninder Gibson is a 89-year-old male who presents from home after falling last night while getting up to walk to the bathroom. He uses a cane to walk and thinks it slipped out from underneath him to close his fall. Unwitnessed by his but does not think he lost consciousness at any point. The patient remembers falling to the ground. No chest pain, shortness of breath or dizziness prior to falling. Significant right-sided chest pain and right shoulder pain after falling. He was last admitted here in April due to weakness, fatigue, pain, poor appetite, short-term memory loss and general failure to thrive. On that occasion physical therapy recommended discharging to home with home therapy which she has been getting. He has had multiple previous hospitalizations with similar presentations over the past 1 to 2 years. On prior occasions he has been diagnosed with a GI bleed requiring blood/iron transfusions, diastolic congestive heart failure, PNA, COPD exacerbation and atrial flutter with rapid ventricular rates. He had a prior myocardial perfusion scan in May 2019 suggestive of inferior ischemia however follow-up with cardiology given patient comorbidities and lack of symptoms at current activity levels recommended avoiding further invasive testing at that time. No significant acute change in his generalized weakness. No lateralizing extremity weakness on one side. No change in speech, vision, hearing. In the ER he had extensive imaging most concerning for multiple acute right- sided rib fractures 4-7th ribs with tiny right hemothorax. This correlates with his pain on the right side. He denies any additional injuries at this time, and otherwise feels at his baseline. Allergies Allergy/AdvReac Type Severity Reaction Status Date / Time moxifloxacin Allergy Severe throat Verified 06/01/20 14:05 swelling ofloxacin Allergy Severe SWELLING Verified 06/01/20 14:05 AROUND FACE Quinolones Allergy Severe ANAPHYLAXIS Verified 06/01/20 14:05 formoterol Allergy Intermediate RASH Verified 06/01/20 14:05 Sulfa (Sulfonamide Allergy Intermediate severe red Verified 06/01/20 14:05 Antibiotics) rash Home Medications Home Medications Medication Instructions Recorded Confirmed Type cyanocobalamin (vitamin B-12) 500 mcg PO HS 05/02/19 06/01/20 History [Vitamin B-12] magnesium oxide 500 mg tablet 500 mg PO BID tab 05/07/19 06/01/20 History albuterol sulfate 2.5 mg INH Q4H PRN #360 ml 11/25/19 06/01/20 Rx albuterol sulfate 90 mcg/actuation 2 puffs INH Q4H PRN #8.5 gm 02/11/20 06/01/20 Rx aerosol inhaler simvastatin 80 mg tablet 40 mg PO HS #90 tab 03/03/20 06/01/20 Rx multivitamin with minerals 1 tab PO QAM 03/27/20 06/01/20 History [Multiple Vitamin-Minerals] amiodarone 200 mg tablet 200 mg PO QAM 90 Days #90 tab 04/08/20 06/01/20 Rx Lift Chair #1 ea 05/03/20 05/18/20 Rx Lift Chair #1 ea 05/03/20 05/18/20 Rx ascorbic acid (vitamin C) [Vitamin 500 mg PO QAM 05/03/20 06/01/20 History C] furosemide 20 mg tablet See Rx Instructions PO DAILY 05/06/20 06/01/20 History levothyroxine 75 mcg capsule See Rx Instructions PO DAILY 05/06/20 06/01/20 History escitalopram oxalate 20 mg tablet 20 mg PO QAM #90 tab 05/13/20 06/01/20 Rx insulin glargine 100 unit/mL (3 45 unit SC QAM ml 05/18/20 06/01/20 History mL) subcutaneous pen prednisone 10 mg tablet 10 mg PO QAM tab 05/18/20 06/01/20 History metformin 1,000 mg tablet 1,000 mg PO BID #180 tab 05/21/20 06/01/20 Rx Xarelto 20 mg PO HS 06/01/20 06/01/20 History ferrous sulfate 325 mg PO HS 06/01/20 06/01/20 History glimepiride 2 mg PO QAM 06/01/20 06/01/20 History omeprazole 40 mg PO QAM 06/01/20 06/01/20 History Past Med/Surg History Medical History Anxiety Atrial fibrillation with rapid ventricular response Atrial flutter on xarelto Chronic diastolic CHF (congestive heart failure) Chronic steroid use Depression GERD (gastroesophageal reflux disease) Heart disease IRREGULAR RHYTHYM HLD (hyperlipidemia) HTN (hypertension) Hypothyroidism Iron deficiency anemia Kidney stones Left ventricular outflow tract obstruction MCC current use of systemic steroids Mild HOCM (hypertrophic obstructive cardiomyopathy) Nephrolithiasis Obstructive sleep apnea On anticoagulant therapy xarelto daily On home oxygen therapy 2L N/C at hs Organic impotence Pericardial effusion Pleural effusion HX OF Prostate cancer Steroid-induced osteopenia Surgical History H/O cystoscopy "History of Cystoscopy With Insertion Of Ureteral Stent" on CCD H/O tooth extraction History of bronchoscopy History of cardiac radiofrequency ablation History of prostatectomy History of repair of right rotator cuff Hx of colonoscopy Hx of esophagogastroduodenoscopy Family History Sister Ovarian cancer Mother Skin cancer Myocardial infarction Grandfather Myocardial infarction Other No family history of adverse response to anesthesia Stroke Denies family history of Prostate cancer Breast cancer Colorectal cancer Social History Smoking Status: Never smoker Second Hand Exposure: No; Do You Dip or Chew Tobacco: No; Tobacco Cessation Education Requested by Patient: No Hx Alcohol Use: No Hx Substance Use: No Preferred Language: Belarusian Communication Ability: Effective Visual Impairment: No Limitations Hearing Ability: Use of Hearing Aid Coil Taper Required: No Beliefs That Will Affect Care: None marital status: Current Living Situation: Spouse current occupational status: retired Other Information That Helps Us Care for You: No Feels Safe at Home: Yes Safety Concerns: Feels Safe At This Time Childhood Exposure to Second-Hand Smoke: No caffeine: Yes during the past year weight has: remained stable Dental Care, Regularly: No Physical Activity Frequency: Does not Exercise Seatbelt Use: always Sunscreen Use: No Assistive Devices: Walker Review of Systems Review of Systems: All systems reviewed & are unremarkable except as noted in HPI & below Physical Exam Constitutional: well developed and well nourished; no acute distress Eyes: PERRL, conjunctivae normal, anicteric sclerae ENMT: external ear and nose normal, oropharynx normal Neck: trachea midline, no thyromegaly Respiratory: normal respiratory effort, lungs clear to auscultation Cardiovascular: Rate/Rhythm: regular rate and regular rhythm Heart Sounds: no murmur Vessels: no JVD Extremities: normal capillary refill and + pedal edema (Trace bilateral equal); no calf tenderness Chest (Breasts): Additional Comments: Tender to palpation of the right lateral and anterior chest wall Gastrointestinal (Abdomen): normal bowel sounds, soft, nontender, no hepatosplenomegaly Musculoskeletal: no cyanosis or clubbing, extremities motor strength 5/5 (Difficulty in breathing right shoulder due to pain but no specific shoulder weakness) Skin: no rashes, warm and dry Neurologic: moves all extremities and awake; not confused Psychiatric: A+Ox3, euthymic affect Genitourinary: no CVA tenderness Lymphatic: no cervical or axillary lymphadenopathy Results & Data Results & Data ([facility]) Vital Signs (Past 12 Hours) Vital Signs Temp Pulse Pulse Resp BP BP Pulse Ox 06/01/20 16:00 70 20 125/67 96 06/01/20 14:03 70 20 119/70 96 06/01/20 13:08 95 06/01/20 12:26 36.6 C 73 20 141/[address] abd pelvis IV con only IMPRESSION: 1. No evidence of acute abdominal or pelvic injury 2. Nonspecific subcentimeter lytic foci within the ribs CT OF THE CHEST WITH IV CONTRAST IMPRESSION: 1. No evidence for traumatic injury to the thoracic aorta. 2. Acute fractures of the lateral right fourth through seventh ribs and the posterior right fifth and sixth ribs. Lateral right fifth rib fracture mildly displaced. Tiny right hemothorax. No pneumothorax. CT OF THE CERVICAL SPINE IMPRESSION: No evidence of acute fracture or traumatic subluxation. CT OF THE HEAD WITHOUT CONTRAST IMPRESSION: 1. No acute intracranial findings. 2. No calvarial fracture. THORACIC SPINE CT, LUMBAR SPINE CT IMPRESSION: 1. No acute fractures within the thoracic or lumbar spine. 2. Nondisplaced right posterior third through sixth rib fractures. 3. Trace right pleural effusion. XR shoulder RT min 2V routine IMPRESSION: 1. No acute fracture or dislocation within the right shoulder. 2. Acute fractures of the right fourth through sixth ribs. Right pleural effusion. No pneumothorax within visualized portions of the right chest. 3. Moderate osteoarthritis of the right shoulder. ECG Indication: chest pain Rate (beats per minute): 71 Rhythm: normal sinus Findings: + other (Bifascicular block), + LAFB and + RBBB Comparison ECG Date: from (May 03, 2020) Change: no significant change Code Status & VTE Plan Code Status DNR/DNI confirmed with patient and his VTE Prophylaxis Plan VTE Prophylaxis will be ordered: Yes PG Care Time/CCT Total # of Minutes Spent Total Time Spent with Patient: Total time spent is greater than 50% in coord ination of care (as documented) at patient's floor/unit and/or counseling patient: Coding Level of Care Code 88602 OBS Care - Level 3 Diagnoses Multiple fractures of rib involving four or more ribs S22.49XA Lytic bone lesions on xray M89.9 Fall W19.XXXA Encounter type: initial encounter Leukocytosis D72.829 Atrial flutter, paroxysmal I48.92 Chronic diastolic CHF (congestive heart failure) I50.32 GERD (gastroesophageal reflux disease) K21.9 Esophagitis presence: esophagitis presence not specified History of prostate cancer Z85.46 Chronic bronchitis J42 Coronary arteriosclerosis I25.10 Type 2 diabetes mellitus E11.9 Hypothyroidism E03.9 Hypothyroidism type: unspecified DVT prophylaxis Z29.9 (1) Fall Encounter type: initial encounter Qualified Code(s): W19.XXXA - Unspecified fall, initial encounter (2) GERD (gastroesophageal reflux disease) Esophagitis presence: esophagitis presence not specified Qualified Code(s): K21.9 - Gastro-esophageal reflux disease without esophagitis (3) Hypothyroidism Hypothyroidism type: unspecified Qualified Code(s): E03.9 - Hypothyroidism, unspecified
[2020-06-01] MEDS ORDERED: DEXTROSE 50% 50 ML SYRINGE IV PRN (18:44)
[2020-06-01] MEDS ORDERED: GLUCAGON FOR INJ 1 MG VIAL SQ PRN (18:44)
[2020-06-01] MEDS ORDERED: GLUCOSE 40% GEL 15 GM TUBE PO PRN (18:44)
[2020-06-01] MEDS ORDERED: GLUCOSE 10 TABS/TUBE PO PRN (18:44)
[2020-06-01] MEDS: traMADol HCL 50 MG TABLET PO PRN (19:47)
[2020-06-01] MEDS: MAGNESIUM OXIDE 400 MG TAB PO SCH (20:22)
[2020-06-01] MEDS: CYANOCOBALAMIN 500 MCG TABLET (VITAMIN B-12) PO SCH (20:22)
[2020-06-01] MEDS: SIMVASTATIN 40 MG TAB PO SCH (20:22)
[2020-06-01] MEDS: FERROUS SULFATE 325 MG TAB PO SCH (20:22)
[2020-06-01] MEDS: INSULIN ASPART 100 UNITS/ML 3 ML PEN SC SCH ×2 (20:47→21:04)
[2020-06-02] MEDS: traMADol HCL 50 MG TABLET PO PRN ×4 (02:32→20:36)
[2020-06-02] MEDS: ACETAMINOPHEN 325 MG TAB PO PRN ×3 (05:58→23:45)
[2020-06-02] MEDS: LEVOTHYROXINE SODIUM 75 MCG TABLET PO SCH (06:01)
[2020-06-02 06:21] LABS: Hematocrit (blood only) 36.7 % (42-52); Hemoglobin 11.9 g/dL (14.0-18.0); Mean Corpuscular Hemoglobin 30.4 pg (25-34); Mean Corpuscular Hgb Conc 32.4 g/dL (32-36); Mean Corpuscular Volume 93.6 fL (80-100); Mean Platelet Volume 10.1 fL (7.4-10.4); Platelet Count 264 K/uL (130-400); RDW Coefficient of Variation 15.1 % (11.5-14.5); RDW Standard Deviation 51.2 fL (36.4-46.3); Red Blood Count 3.92 M/uL (4.7-6.1); White Blood Count 12.48 K/uL (4.8-10.8)
[2020-06-02 06:51] LABS: Estimated Average Glucose 174 mg/dl; Hemoglobin A1C 7.7 % (4.5-5.6)
[2020-06-02 06:54] LABS: BUN Creatinine Ratio 17.1 (10-20); Calcium 9.4 mg/dl (8.5-10.1); Creatinine Clr Calc Pharmacy 40.3 ml/min; Est GFR (African American) 47.6; Est GFR (Non-African American) 41.1
[2020-06-02] MEDS: UMECLIDINIUM/VILANTEROL 62.5/25MCG 7 PUFFS/INHALER INH SCH (09:27)
[2020-06-02] MEDS: PANTOprazole 40 MG TAB PO SCH (09:28)
[2020-06-02] MEDS: AMIODARONE 200 MG TAB PO SCH (09:28)
[2020-06-02] MEDS: ASCORBIC ACID 500 MG TAB PO SCH (09:28)
[2020-06-02] MEDS: FUROSEMIDE 40 MG TAB PO SCH (09:28)
[2020-06-02] MEDS: MAGNESIUM OXIDE 400 MG TAB PO SCH ×2 (09:29→20:33)
[2020-06-02] MEDS: MULTIVITAMIN TAB PO SCH (09:29)
[2020-06-02] MEDS: predniSONE 10 MG TABLET PO SCH (09:29)
[2020-06-02] MEDS: ESCITALOPRAM OXALATE 20 MG TAB PO SCH (09:29)
[2020-06-02] MEDS: FLUTICASONE FUROATE 100MCG 14 PUFFS/INHALER INH SCH (09:30)
[2020-06-02] MEDS: INSULIN ASPART 100 UNITS/ML 3 ML PEN SC SCH ×4 (09:34→20:47)
[2020-06-02] MEDS: INSULIN GLARGINE SOLOSTAR 100 UNITS/ML 3 ML PEN SC SCH (09:37)
--- NOTE | 2020-06-02 13:45 | Hospitalist Progress Note ---
Date of Service June 02, 2020 Assessment & Plan (1) Multiple fractures of rib involving four or more ribs: May control with acetaminophen +/-tramadol as needed, will add additional medications if needed. - Incentive spirometry. - PT/OT eval and treat. - Add lidocaine patch today. (2) Lytic bone lesions on xray: Noted incidentally on CT a/p on 06/01; however, no further notes on other dedicated spine CTs. - Will discuss with patient and probable follow-up outpatient. (3) CKD (chronic kidney disease) stage 3, GFR 30-59 ml/min: Baseline Cr ~1.3-1.4; eGFR ~50. - Presently near baseline - Monitor (4) Fall: Longstanding ambulatory dysfunction. This fall seems mechanical in nature. - No further workup planned. (5) Leukocytosis: Chronically elevated at baseline in the setting of steroid use. Possibly mildly elevated from inflammation from fall. - Monitor (6) Atrial flutter, paroxysmal: - Rhythm control with amiodarone 200 mg p.o. daily. - Xarelto on hold temporarily due to rib fractures (7) Type 2 diabetes mellitus: HbA1C was 8.8% in March; down to 7.7% now. - Hold glimepiride and Metformin. - Continue Lantus 45 units SQ QAM - Sliding scale insulin (8) Chronic diastolic CHF (congestive heart failure): No acute exacerbation. - Continue home dosing of Lasix. (9) Chronic bronchitis: No recent PFTs. Chronic bronchitis noted on previous CTs - no emphysematous changes. 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 - Continue Trelegy Ellipta or hospital formulary equivalent. - DuoNebs PRN (10) GERD (gastroesophageal reflux disease): - Switch omeprazole for pantoprazole as per hospital formulary (11) History of prostate cancer: Status post surgery, no radiation or chemotherapy. (12) Coronary arteriosclerosis: Suspected based on prior myocardial perfusion scan. No chest pain today. - Continue simvastatin 40 mg p.o. at bedtime (13) Hypothyroidism: TSH WNL in April. - Continue usual home dose levothyroxine. (14) DVT prophylaxis: SCDs - Xarelto on hold as above Admission and Anticipated Discharge Date Admission Date: June 01, 2020 Subjective With continued pain in the right back. Especially bad when trying to use the right arm. Reports no fevers/chills, chest pain, shortness of breath, abdominal pain, nausea, or vomiting. Physical Exam Constitutional: WD/WN, vitals as above + acute distress and + frail appearing Eyes: EOM intact bilaterally; no conjunctival abnormality ENMT: external ear and nose normal, oropharynx normal Neck: trachea midline, no thyromegaly normal visual inspection Respiratory: normal respiratory effort, lungs clear to auscultation no respiratory distress Cardiovascular: RRR, no murmur, no edema Gastrointestinal (Abdomen): Inspection/Auscultation: abdomen normal to inspection; abdomen not distended Musculoskeletal: no cyanosis or clubbing, extremities motor strength 5/5 Spine: lumbar spine normal to inspection (No bruising) Skin: no rashes, warm and dry Neurologic: moves all extremities and awake Psychiatric: Orientation: alert, oriented to person and cooperative Results & Data Results & Data ([facility]) Vital Signs (Past 12 Hours) Vital Signs Temp Pulse Resp BP Pulse Ox 06/02/20 07:05 37 C 87 16 155/76 H 95 PG Care Time/CCT Total # of Minutes Spent Total Time Spent with Patient: Total time spent is greater than 50% in coordination of care (as documented) at patient's floor/unit and/or counseling patient: Coding Level of Care Code 26252 Subseq Hosp Care Lvl 3 Diagnoses Multiple fractures of rib involving four or more ribs S22.49XA Lytic bone lesions on xray M89.9 CKD (chronic kidney disease) stage 3, GFR 30-59 ml/min N18.30 Fall W19.XXXA Encounter type: initial encounter Leukocytosis D72.829 Atrial flutter, paroxysmal I48.92 Type 2 diabetes mellitus E11.9 Chronic diastolic CHF (congestive heart failure) I50.32 Chronic bronchitis J42 GERD (gastroesophageal reflux disease) K21.9 Esophagitis presence: esophagitis presence not specified History of prostate cancer Z85.46 Coronary arteriosclerosis I25.10 Hypothyroidism E03.9 Hypothyroidism type: unspecified DVT prophylaxis Z29.9 (1) Fall Encounter type: initial encounter Qualified Code(s): W19.XXXA - Unspecified fall, initial encounter (2) GERD (gastroesophageal reflux disease) Esophagitis presence: esophagitis presence not specified Qualified Code(s): K21.9 - Gastro-esophageal reflux disease without esophagitis (3) Hypothyroidism Hypothyroidism type: unspecified Qualified Code(s): E03.9 - Hypothyroidism, unspecified
[2020-06-02] MEDS: LIDOCAINE 5% 1 PATCH TD SCH (16:35)
[2020-06-02] MEDS: FERROUS SULFATE 325 MG TAB PO SCH (20:33)
[2020-06-02] MEDS: SIMVASTATIN 40 MG TAB PO SCH (20:33)
[2020-06-02] MEDS: CYANOCOBALAMIN 500 MCG TABLET (VITAMIN B-12) PO SCH (20:33)
[2020-06-03] MEDS: traMADol HCL 50 MG TABLET PO PRN ×3 (05:32→21:18)
[2020-06-03] MEDS: LEVOTHYROXINE SODIUM 75 MCG TABLET PO SCH (06:02)
[2020-06-03 06:24] LABS: Hematocrit (blood only) 37.1 % (42-52); Mean Corpuscular Hgb Conc 32.3 g/dL (32-36); Mean Corpuscular Volume 92.8 fL (80-100); Mean Platelet Volume 9.9 fL (7.4-10.4); Platelet Count 268 K/uL (130-400); RDW Coefficient of Variation 14.7 % (11.5-14.5); RDW Standard Deviation 50.5 fL (36.4-46.3); White Blood Count 12.67 K/uL (4.8-10.8)
[2020-06-03 07:26] LABS: BUN Creatinine Ratio 19.1 (10-20); Calcium 9.7 mg/dl (8.5-10.1); Creatinine Clr Calc Pharmacy 42.2 ml/min; Est GFR (African American) 50.3; Est GFR (Non-African American) 43.4; Magnesium 2.1 mg/dl (1.8-2.4)
[2020-06-03] MEDS: ACETAMINOPHEN 325 MG TAB PO PRN (08:24)
[2020-06-03] MEDS: UMECLIDINIUM/VILANTEROL 62.5/25MCG 7 PUFFS/INHALER INH SCH (08:25)
[2020-06-03] MEDS: FLUTICASONE FUROATE 100MCG 14 PUFFS/INHALER INH SCH (08:25)
[2020-06-03] MEDS: ASCORBIC ACID 500 MG TAB PO SCH (08:26)
[2020-06-03] MEDS: predniSONE 10 MG TABLET PO SCH (08:26)
[2020-06-03] MEDS: FUROSEMIDE 40 MG TAB PO SCH (08:26)
[2020-06-03] MEDS: ESCITALOPRAM OXALATE 20 MG TAB PO SCH (08:26)
[2020-06-03] MEDS: PANTOprazole 40 MG TAB PO SCH (08:27)
[2020-06-03] MEDS: MAGNESIUM OXIDE 400 MG TAB PO SCH ×2 (08:27→21:13)
[2020-06-03] MEDS: AMIODARONE 200 MG TAB PO SCH (08:27)
[2020-06-03] MEDS: MULTIVITAMIN TAB PO SCH (08:28)
[2020-06-03] MEDS: LIDOCAINE 5% 1 PATCH TD SCH (08:29)
[2020-06-03] MEDS: INSULIN GLARGINE SOLOSTAR 100 UNITS/ML 3 ML PEN SC SCH (09:15)
[2020-06-03] MEDS: INSULIN ASPART 100 UNITS/ML 3 ML PEN SC SCH ×4 (09:16→21:16)
[2020-06-03] MEDS ORDERED: LIDOCAINE 5% 1 PATCH TD ONE (09:45)
[2020-06-03] MEDS: POLYETHYLENE (MIRALAX) 17 GM PACK PO SCH (10:56)
--- NOTE | 2020-06-03 15:05 | Hospitalist Progress Note ---
Date of Service June 03, 2020 Assessment & Plan (1) Multiple fractures of rib involving four or more ribs: May control with acetaminophen +/-tramadol as needed, will add additional medications if needed. - Incentive spirometry. - PT/OT eval and treat -> Plan to work toward [facility] if possible. - Added additional lidocaine patch today and increased tramadol. (2) Lytic bone lesions on xray: Noted incidentally on CT a/p on 06/01; however, no further notes on other dedicated spine CTs. - Will discuss with patient and probable follow-up outpatient. (3) CKD (chronic kidney disease) stage 3, GFR 30-59 ml/min: Baseline Cr ~1.3-1.4; eGFR ~50. - Presently near baseline at 1.5. - Monitor (4) Fall: Longstanding ambulatory dysfunction. This fall seems mechanical in nature. - No further workup planned. (5) Leukocytosis: Chronically elevated at baseline in the setting of steroid use. Possibly mildly elevated from inflammation from fall. - Monitor (6) Atrial flutter, paroxysmal: - Rhythm control with amiodarone 200 mg p.o. daily. - Restart Xarelto tomorrow (7) Type 2 diabetes mellitus: HbA1C was 8.8% in March; down to 7.7% now. - Hold glimepiride and Metformin. - Continue Lantus 45 units SQ QAM - Sliding scale insulin -> Running a bit high at present. Will tighten meal- time. (8) Chronic diastolic CHF (congestive heart failure): No acute exacerbation. - Continue home dosing of Lasix. (9) Chronic bronchitis: No recent PFTs. Chronic bronchitis noted on previous CTs - no emphysematous changes. 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 - Continue Trelegy Ellipta or hospital formulary equivalent. - DuoNebs PRN (10) GERD (gastroesophageal reflux disease): - Switch omeprazole for pantoprazole as per hospital formulary (11) History of prostate cancer: Status post surgery, no radiation or chemotherapy. (12) Coronary arteriosclerosis: Suspected based on prior myocardial perfusion scan. No chest pain today. - Continue simvastatin 40 mg p.o. at bedtime (13) Hypothyroidism: TSH WNL in April. - Continue usual home dose levothyroxine. (14) DVT prophylaxis: SCDs - Xarelto Admission and Anticipated Discharge Date Admission Date: June 01, 2020 Subjective Some improvement in pain today, but not entirely. Reports no fevers/chills, chest pain, shortness of breath, abdominal pain, nausea, or vomiting. Physical Exam Constitutional: WD/WN, vitals as above + frail appearing; no acute distress Eyes: EOM intact bilaterally; no conjunctival abnormality ENMT: external ear and nose normal, oropharynx normal Neck: trachea midline, no thyromegaly normal visual inspection Respiratory: normal respiratory effort, lungs clear to auscultation no respiratory distress Cardiovascular: RRR, no murmur, no edema Gastrointestinal (Abdomen): Inspection/Auscultation: abdomen normal to inspection; abdomen not distended Musculoskeletal: no cyanosis or clubbing, extremities motor strength 5/5 Spine: thoracic spine normal to inspection, lumbar spine normal to inspection (No bruising) and + paraspinal tenderness (Right ribs) Skin: no rashes, warm and dry Neurologic: moves all extremities and awake Psychiatric: Orientation: alert, oriented to person and cooperative Results & Data Results & Data ([facility]) Vital Signs (Past 12 Hours) Vital Signs Temp Pulse Resp BP BP Pulse Ox 06/03/20 08:34 77 162/104 H 172/79 H 97 06/03/20 07:59 36.6 C 80 18 178/78 H 95 06/03/20 05:04 169/80 H PG Care Time/CCT Total # of Minutes Spent Total Time Spent with Patient: Total time spent is greater than 50% in coordination of care (as documented) at patient's floor/unit and/or counseling patient: Coding Level of Care Code 56581 Subseq Hosp Care Lvl 2 Diagnoses Multiple fractures of rib involving four or more ribs S22.49XA Lytic bone lesions on xray M89.9 CKD (chronic kidney disease) stage 3, GFR 30-59 ml/min N18.30 Fall W19.XXXA Encounter type: initial encounter Leukocytosis D72.829 Atrial flutter, paroxysmal I48.92 Type 2 diabetes mellitus E11.9 Chronic diastolic CHF (congestive heart failure) I50.32 Chronic bronchitis J42 GERD (gastroesophageal reflux disease) K21.9 Esophagitis presence: esophagitis presence not specified History of prostate cancer Z85.46 Coronary arteriosclerosis I25.10 Hypothyroidism E03.9 Hypothyroidism type: unspecified DVT prophylaxis Z29.9 (1) Fall Encounter type: initial encounter Qualified Code(s): W19.XXXA - Unspecified fall, initial encounter (2) GERD (gastroesophageal reflux disease) Esophagitis presence: esophagitis presence not specified Qualified Code(s): K21.9 - Gastro-esophageal reflux disease without esophagitis (3) Hypothyroidism Hypothyroidism type: unspecified Qualified Code(s): E03.9 - Hypothyroidism, unspecified
[2020-06-03 20:40] LABS: Appearance Urine Turbid (Clear); Bacteria Urine Automated 4+ (Negative); Bilirubin Urine Negative (Negative); Blood Urine Negative (Negative); Color Urine Yellow; Epithelial Cell Urine Auto 0-5 /lpf (0-5); Glucose Urine UA Trace (Negative); Ketones Urine Trace (Negative); Leukocyte Esterase Urine 3+ (Negative); Nitrite Urine Positive (Negative); RBC Urine Automated 0-4 /hpf (0-4); Specific Gravity Urine 1.023 (1.000-1.030); Urobilinogen Urine Negative (Negative); WBC Urine Automated >30 /hpf (0-5); pH Urine >= 9.0 (4.5-7.5)
[2020-06-03 20:52] LABS: Protein Urine 3+ (Negative)
[2020-06-03 20:59] LABS: Sulfosalicylic Acid Urine Positive (Negative)
[2020-06-03] MEDS: FERROUS SULFATE 325 MG TAB PO SCH (21:12)
[2020-06-03] MEDS: SIMVASTATIN 40 MG TAB PO SCH (21:14)
[2020-06-03] MEDS: CYANOCOBALAMIN 500 MCG TABLET (VITAMIN B-12) PO SCH (21:14)
[2020-06-04] MEDS: traMADol HCL 50 MG TABLET PO PRN ×3 (01:48→21:40)
[2020-06-04] MEDS: LEVOTHYROXINE SODIUM 75 MCG TABLET PO SCH (05:42)
[2020-06-04 06:22] LABS: Hematocrit (blood only) 40.1 % (42-52); Hemoglobin 12.8 g/dL (14.0-18.0); Mean Corpuscular Hemoglobin 29.8 pg (25-34); Mean Corpuscular Hgb Conc 31.9 g/dL (32-36); Mean Corpuscular Volume 93.5 fL (80-100); Mean Platelet Volume 10.4 fL (7.4-10.4); Platelet Count 326 K/uL (130-400); RDW Standard Deviation 50.9 fL (36.4-46.3); Red Blood Count 4.29 M/uL (4.7-6.1); White Blood Count 14.81 K/uL (4.8-10.8)
[2020-06-04 06:51] LABS: BUN Creatinine Ratio 22.3 (10-20); Calcium 9.8 mg/dl (8.5-10.1); Creatinine Clr Calc Pharmacy 41.7 ml/min; Est GFR (African American) 49.5; Est GFR (Non-African American) 42.7; Magnesium 2.1 mg/dl (1.8-2.4); Potassium 4.1 mmol/L (3.5-5.1)
[2020-06-04] MEDS: UMECLIDINIUM/VILANTEROL 62.5/25MCG 7 PUFFS/INHALER INH SCH (07:34)
[2020-06-04] MEDS: FLUTICASONE FUROATE 100MCG 14 PUFFS/INHALER INH SCH (07:35)
[2020-06-04] MEDS: FUROSEMIDE 40 MG TAB PO SCH (07:35)
[2020-06-04] MEDS: AMIODARONE 200 MG TAB PO SCH (07:35)
[2020-06-04] MEDS: MULTIVITAMIN TAB PO SCH (07:36)
[2020-06-04] MEDS: PANTOprazole 40 MG TAB PO SCH (07:36)
[2020-06-04] MEDS: MAGNESIUM OXIDE 400 MG TAB PO SCH (07:36)
[2020-06-04] MEDS: LIDOCAINE 5% 1 PATCH TD SCH (07:36)
[2020-06-04] MEDS: ESCITALOPRAM OXALATE 20 MG TAB PO SCH (07:36)
[2020-06-04] MEDS: predniSONE 10 MG TABLET PO SCH (07:37)
[2020-06-04] MEDS: ASCORBIC ACID 500 MG TAB PO SCH (07:42)
[2020-06-04] MEDS: POLYETHYLENE (MIRALAX) 17 GM PACK PO SCH (08:24)
[2020-06-04] MEDS ORDERED: RIVAROXABAN 15 MG TAB PO SCH (09:00)
[2020-06-04] MEDS: cefTRIAXone SODIUM 2,000 MG in DEXTROSE 5% 50 ML IV SCH (09:13)
[2020-06-04] MEDS: INSULIN GLARGINE SOLOSTAR 100 UNITS/ML 3 ML PEN SC SCH (09:14)
[2020-06-04] MEDS: INSULIN ASPART 100 UNITS/ML 3 ML PEN SC SCH ×4 (09:19→21:53)
--- NOTE | 2020-06-04 09:20 | XRay Report ---
XR chest 2V PA/lateral CLINICAL HISTORY: Hypoxemia, leukocytosis, pneumonia? COMPARISON STUDY: Chest CT June 01, 2020. FINDINGS: Acute right-sided rib fractures are noted. Displacement of several fractures has increased since chest CT June 01, 2020. There is no pneumothorax. There is a trace right pleural effusion. B ibasilar opacities are present. Lung volumes are mildly diminished. No consolidation is identified. T here is moderate cardiomegaly. There is no evidence for pulmonary edema. Patient is mildly rotated. IMPRESSION: 1. Redemonstration of multiple acute right-sided rib fractures. Displacement of multiple fractures torres s increased since prior CT. No pneumothorax. Trace right pleural effusion which may reflect a hemotho rax. 2. Bibasilar opacities which favor atelectasis. No consolidation identified. ACT 112: Negative or not required by law. Electronically signed by: Cesar Faye M.D. 06/04/2020 9:19 AM
[2020-06-04] MEDS ORDERED: NORMOSOL-R 500 ML IV ONE (09:28)
[2020-06-04] MEDS: ACETAMINOPHEN 325 MG TAB PO PRN (09:30)
[2020-06-04] MEDS ORDERED: OPTIRAY 320 125ml IV ONE (10:25)
--- NOTE | 2020-06-04 10:44 | Electrocardiogram Report ---
Test Reason : Blood Pressure : / mmHG Vent. Rate : 124 BPM Atrial Rate : 124 BPM P-R Int : 144 ms QRS Dur : 136 ms QT Int : 358 ms P-R-T Axes : 057 269 058 degrees QTc Int : 514 ms Sinus tachycardia Leftward axis Right bundle branch block Abnormal ECG When compared with ECG of 01-JUN-2020 13:11, VT interval has decreased Vent. rate has increased BY 53 BPM Confirmed by Mohit Perez ([id number]) on 06/04/2020 10:44:21 AM Referred By: REFERRED SELF Confirmed By:Mohit Perez
--- NOTE | 2020-06-04 11:30 | CT Scan Report ---
CT ANGIOGRAPHY OF THE CHEST, PULMONARY EMBOLUS PROTOCOL CLINICAL HISTORY: Hypoxia. Right-sided rib fractures. COMPARISON STUDY: Chest CT June 01, 2020. Chest radiograph performed earlier today. TECHNIQUE: Following IV administration of 120 mL of Optiray-320, helical axial images of the chest we re obtained utilizing the pulmonary embolus protocol. Maximal intensity projections and sagittal and coronal reformats were viewed on an independent 3D workstation. IV contrast was administered withou t complication. Automated exposure control was utilized for the study. A dose lowering technique wa s utilized adhering to the principles of ALARA. CT DOSE: 750.08 mGy.cm FINDINGS: No pulmonary emboli are identified. There is no evidence for traumatic injury to the thora cic aorta. Moderate cardiomegaly is noted. There is no thoracic lymphadenopathy. No pneumothorax is p resent. Note is made of acute fractures of the lateral right fourth through ninth ribs. Several of th roman fractures are mildly displaced. Several these fractures were not evident on chest CT of May 202019. A small amount of extrapleural hemorrhage in a small right hemothorax is similar to prior ex am. There are also acute nondisplaced fractures of the posterior right fourth through sixth ribs. Shauna ear and groundglass opacities within the lungs favor atelectasis. No consolidation is identified. Jacky tral airways are patent. No acute thoracic spine fracture is noted. Upper abdomen is unremarkable. Th ere is an old sternal fracture. IMPRESSION: 1. No pulmonary emboli identified. 2. Acute fractures of the lateral right fourth through ninth ribs, several of which are mildly displa dee. Nondisplaced fractures of the posterior right fourth through sixth ribs. No pneumothorax. No sig nificant change in a small right hemothorax and a small amount of extrapleural hemorrhage. 2. Linear and groundglass opacities within lungs favor atelectasis. No consolidation to suggest pneum onia. ACT 112: Negative or not required by law. Electronically signed by: Cesar Faye M.D. 06/04/2020 11:29 AM
--- NOTE | 2020-06-04 12:11 | Hospitalist Progress Note ---
Date of Service June 04, 2020 Assessment & Plan (1) Tachycardia: Overnight of 06/03-06/04, he became acutely tachycardic. Had been in the 70-80 range, then 120s. - EKG shows sinus tachycardia. - Differential included infection (now treating possible UTI with ceftriaxone), pain (attempting to treat with light narcotics & topical relief), VTE (CTA chest negative for PE), dehydration (given slight fluid bolus on 06/04), stress. (2) Multiple fractures of rib involving four or more ribs: May control with acetaminophen +/-tramadol as needed, will add additional medications if needed. - Incentive spirometry. - PT/OT eval and treat -> Plan for SNF/rehab when able. - Added additional lidocaine patch and increased tramadol on 06/03; seems to have helped. - On 06/04, got a CTA chest which showed mildly displaced lateral fractures on the 4th - 9th right ribs. Additional posterior fractures on 4th - 6th ribs. Small right hemothorax and extrapleural hemorrhage. (3) Lytic bone lesions on xray: Noted incidentally on CT a/p on 06/01; however, no further notes on other dedicated spine CTs. - Discussed with Dr. Leyva and radiologist. These are common findings in someone his age. Given no other clinical signs of multiple myeloma, will not pursue further work-up. (4) CKD (chronic kidney disease) stage 3, GFR 30-59 ml/min: Baseline Cr ~1.3-1.4; eGFR ~50. - Presently near baseline at 1.5. - Monitor (5) Fall: Long-standing ambulatory dysfunction. This fall seems mechanical in nature. - No further workup planned. (6) Leukocytosis: Chronically elevated at baseline in the setting of steroid use. Possibly mildly elevated from inflammation from fall. - Monitor (7) Atrial flutter, paroxysmal: - Rhythm control with amiodarone 200 mg p.o. daily. - Hold Xarelto for hemothorax (8) Type 2 diabetes mellitus: HbA1C was 8.8% in March; down to 7.7% now. - Hold glimepiride and Metformin. - Continue Lantus 45 units SQ QAM - Sliding scale insulin -> Running a bit high at present. Will tighten meal-time again today. (9) Chronic diastolic CHF (congestive heart failure): No acute exacerbation. - Continue home dosing of Lasix. (10) Chronic bronchitis: No recent PFTs. Chronic bronchitis noted on previous CTs - no emphysematous changes. 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 - Continue Trelegy Ellipta or hospital formulary equivalent. - DuoNebs PRN (11) GERD (gastroesophageal reflux disease): - Switch omeprazole for pantoprazole as per hospital formulary (12) History of prostate cancer: Status post surgery, no radiation or chemotherapy. (13) Coronary arteriosclerosis: Suspected based on prior myocardial perfusion scan. No chest pain today. - Continue simvastatin 40 mg p.o. at bedtime (14) Hypothyroidism: TSH WNL in April. - Continue usual home dose levothyroxine. (15) DVT prophylaxis: SCDs - Hold heparin for hemothorax on CT chest on 06/04 Admission and Anticipated Discharge Date Admission Date: June 03, 2020 Subjective No major change today. He reports that the ribs are about the same as yesterday, possibly mildly better. Reports no fevers/chills, chest pain, shortness of breath, abdominal pain, nausea, or vomiting. Physical Exam Constitutional: WD/WN, vitals as above + frail appearing; no acute distress Eyes: EOM intact bilaterally; no conjunctival abnormality ENMT: external ear and nose normal, oropharynx normal Neck: trachea midline, no thyromegaly normal visual inspection Respiratory: normal respiratory effort, lungs clear to auscultation no respiratory distress Cardiovascular: RRR, no murmur, no edema Gastrointestinal (Abdomen): Inspection/Auscultation: abdomen normal to inspection; abdomen not distended Musculoskeletal: no cyanosis or clubbing, extremities motor strength 5/5 Spine: thoracic spine normal to inspection, lumbar spine normal to inspection (No bruising) and + paraspinal tenderness (Right ribs) Skin: no rashes, warm and dry Neurologic: moves all extremities and awake Psychiatric: Orientation: alert, oriented to person and cooperative Results & Data Results & Data ([facility]) Vital Signs (Past 12 Hours) Vital Signs Temp Pulse Resp BP Pulse Ox 06/04/20 07:15 36.5 C 123 H 18 130/84 95 06/04/20 00:47 36.7 C 92 H 16 145/79 H 97 PG Care Time/CCT Total # of Minutes Spent Total Time Spent with Patient: Total time spent is greater than 50% in coordination of care (as documented) at patient's floor/unit and/or counseling patient: Coding Level of Care Code 17771 Subseq Hosp Care Lvl 3 Diagnoses Tachycardia R00.0 Multiple fractures of rib involving four or more ribs S22.49XA Lytic bone lesions on xray M89.9 CKD (chronic kidney disease) stage 3, GFR 30-59 ml/min N18.30 Fall W19.XXXA Encounter type: initial encounter Leukocytosis D72.829 Atrial flutter, paroxysmal I48.92 Type 2 diabetes mellitus E11.9 Chronic diastolic CHF (congestive heart failure) I50.32 Chronic bronchitis J42 GERD (gastroesophageal reflux disease) K21.9 Esophagitis presence: esophagitis presence not specified History of prostate cancer Z85.46 Coronary arteriosclerosis I25.10 Hypothyroidism E03.9 Hypothyroidism type: unspecified DVT prophylaxis Z29.9 (1) Fall Encounter type: initial encounter Qualified Code(s): W19.XXXA - Unspecified fall, initial encounter (2) GERD (gastroesophageal reflux disease) Esophagitis presence: esophagitis presence not specified Qualified Code(s): K21.9 - Gastro-esophageal reflux disease without esophagitis (3) Hypothyroidism Hypothyroidism type: unspecified Qualified Code(s): E03.9 - Hypothyroidism, unspecified
--- NOTE | 2020-06-04 18:43 | XRay Report ---
SINGLE VIEW CHEST CLINICAL HISTORY: Tachypnea. Hypoxia. FINDINGS: 2 AP, portable, upright chest radiographs are compared to chest x-ray and chest CT performe d earlier the same day 06/04/2020. The examination is degraded by portable technique and patient rota tion. The heart is enlarged and there is atherosclerotic calcification of the thoracic aorta. The pul monary vasculature is noncongested. Emphysema and chronic interstitial thickening are similar to prev ious. There is mild chronic elevation of the right hemidiaphragm with volume loss in the right lung. Scarring/atelectasis is seen at both lung bases. A small right pleural effusion is again noted. No ai rspace consolidation is seen typical for pneumonia. No pneumothorax is seen. The skeletal structures are osteopenic. There are numerous right-sided rib fractures. IMPRESSION: 1. Cardiomegaly and emphysema with no acute cardiopulmonary abnormality. 2. A small right pleural effusion is unchanged. 3. Numerous right-sided rib fractures are again noted. Electronically signed by: Fausto Donovan M.D. 06/04/2020 6:42 PM
[2020-06-04 19:00] LABS: Hematocrit (blood only) 40.4 % (42-52); Mean Corpuscular Hemoglobin 30.2 pg (25-34); Mean Corpuscular Volume 93.7 fL (80-100); Platelet Count 388 K/uL (130-400); RDW Coefficient of Variation 15.1 % (11.5-14.5); RDW Standard Deviation 51.4 fL (36.4-46.3); Red Blood Count 4.31 M/uL (4.7-6.1); White Blood Count 20.08 K/uL (4.8-10.8)
[2020-06-04 19:39] LABS: Mean Corpuscular Hgb Conc 32.2 g/dL (32-36)
--- NOTE | 2020-06-04 19:42 | XRay Report ---
KUB CLINICAL HISTORY: Abdominal distention. FINDINGS: 2 AP supine abdominal radiographs are compared to study dated 03/30/2020 and correlated with abdominal CT dated 06/01/2020. There is diffuse gaseous distention of the small bowel loops which me asure up to 3.6 cm. The appearance suggests ileus versus obstruction. Gas and stool are noted in the right colon. Excreted IV contrast fills the bladder. Surgical clips are partially visualized in the p debbie. The skeletal structures are osteopenic end appear intact. Right-sided rib fractures are noted. IMPRESSION: Diffuse gaseous distention of the small bowel loops represents a significant change from previous and could represent ileus versus developing obstruction. Clinical correlation will be requir ed. Electronically signed by: Fausto Donovan M.D. 06/04/2020 7:41 PM
[2020-06-04] MEDS ORDERED: MoRPHine SULFATE 2 MG/ML CARP IV PRN (20:00)
--- NOTE | 2020-06-04 20:52 | CT Scan Report ---
CT SCAN OF THE ABDOMEN AND PELVIS WITHOUT IV CONTRAST CLINICAL HISTORY: Abdominal distention. COMPARISON STUDY: KUB dated 06/04/2020. Abdominal CT dated 06/01/2020. Chest CT performed the same d ay 06/04/2020. TECHNIQUE: CT scan of the abdomen and pelvis is performed from the lung bases to the proximal femora. Images are reviewed in the axial, sagittal, and coronal planes. IV contrast was not administered for this examination. Note that the examination was performed in suboptimal fashion without oral and IV contrast. A dose lowering technique was utilized adhering to the principles of ALARA. The Examination is degraded by motion artifact, as well as by streak artifact from the arms which could not be eleva michelle above the abdomen. CT DOSE: 1195.67 mGy.cm FINDINGS: Lung bases: The heart is top normal in size and without pericardial effusion. There are coronary juanita ry calcifications. Trace hemothorax is seen at the right lung base with associated atelectasis. No ai rspace consolidation is identified typical for pneumonia. A small hiatal hernia is noted. Liver: The unenhanced liver is normal in size, contour, and attenuation. There is no intrahepatic nish iary ductal dilatation. Gallbladder: Unremarkable. Spleen: Normal in size and attenuation. Pancreas: The unenhanced pancreas is moderately atrophic and grossly unremarkable. Adrenal glands: Unremarkable. Kidneys: The unenhanced kidneys demonstrate cortical atrophy and are without hydronephrosis. Excreted IV contrast. The renal collecting system and ureters. This degrades assessment for renal calculi. A 2.3 cm cyst is noted in the left kidney. Abdominal vasculature: The abdominal aorta is normal in course and caliber noting moderate atheroscle rotic calcification. Bowel: Moderate fecal retention is noted in the right colon. There is mild gaseous distention of the small bowel loops with no evidence of bowel obstruction. The appendix is well-visualized and normal. Peritoneum: A midline surgical scar is noted. Trace free fluid is seen in the pelvis. No intracranial free air is identified. There is a fat-containing umbilical hernia. Lymphadenopathy: None. Pelvic viscera: The prostate gland is surgically absent. The bladder is filled with excreted IV contr ast. The bladder wall is thickened and trabeculated indicating chronic outlet obstruction. There are small bilateral fat-containing inguinal hernias. Skeletal structures: The skeletal structures are osteopenic. No lytic or blastic lesions are seen. Th ere are minimally displaced right posterior 8th and 9th rib fractures. IMPRESSION: 1. There is mild gaseous distention of the small bowel loops with no evidence of obstruction. Gas and stool are seen within the colon and this likely represents ileus. No transition point is identified. 2. Right-sided rib fractures and trace hemothorax is above. This is unchanged from previous. 3. There is no evidence of solid organ injury in the abdomen or pelvis on this unenhanced examination . 4. Status post prostatectomy. 5. The appearance of the bladder is consistent with chronic outlet obstruction. 6. Trace nonspecific free fluid is seen in the pelvis and may be related to hydration status. Clinica l correlation will be required. 7. Additional findings as above. ACT 112: Negative or not required by law. Electronically signed by: Fausto Donovan M.D. 06/04/2020 8:51 PM
[2020-06-04] MEDS: SIMVASTATIN 40 MG TAB PO SCH (21:40)
[2020-06-05] MEDS: LEVOTHYROXINE SODIUM 75 MCG TABLET PO SCH (06:35)
[2020-06-05] MEDS: ACETAMINOPHEN 325 MG TAB PO PRN (06:38)
[2020-06-05 07:28] LABS: Hematocrit (blood only) 38.5 % (42-52); Hemoglobin 12.3 g/dL (14.0-18.0); Mean Corpuscular Hemoglobin 29.8 pg (25-34); Mean Corpuscular Hgb Conc 31.9 g/dL (32-36); Mean Corpuscular Volume 93.2 fL (80-100); Mean Platelet Volume 10.2 fL (7.4-10.4); Platelet Count 328 K/uL (130-400); RDW Coefficient of Variation 15.1 % (11.5-14.5); Red Blood Count 4.13 M/uL (4.7-6.1); White Blood Count 16.12 K/uL (4.8-10.8)
[2020-06-05] MEDS: AMIODARONE 200 MG TAB PO SCH (07:48)
[2020-06-05] MEDS: predniSONE 10 MG TABLET PO SCH (07:48)
[2020-06-05] MEDS: FLUTICASONE FUROATE 100MCG 14 PUFFS/INHALER INH SCH (07:49)
[2020-06-05] MEDS: ESCITALOPRAM OXALATE 20 MG TAB PO SCH (07:49)
[2020-06-05] MEDS: PANTOprazole 40 MG TAB PO SCH (07:49)
[2020-06-05] MEDS: UMECLIDINIUM/VILANTEROL 62.5/25MCG 7 PUFFS/INHALER INH SCH (07:50)
[2020-06-05] MEDS: LIDOCAINE 5% 1 PATCH TD SCH ×2 (07:50→19:50)
[2020-06-05] MEDS: cefTRIAXone SODIUM 2,000 MG in DEXTROSE 5% 50 ML IV SCH (07:54)
[2020-06-05] MEDS: POLYETHYLENE (MIRALAX) 17 GM PACK PO SCH (07:54)
[2020-06-05 08:10] LABS: BUN Creatinine Ratio 24.4 (10-20); Blood Urea Nitrogen 46 mg/dl (7-18); Calcium 9.6 mg/dl (8.5-10.1); Carbon Dioxide 25 mmol/L (21-32); Chloride 107 mmol/L (98-107); Creatinine Clr Calc Pharmacy 32.9 ml/min; Est GFR (African American) 37.2; Est GFR (Non-African American) 32.1; Glucose 191 mg/dl (70-99); Sodium 138 mmol/L (136-145)
[2020-06-05] MEDS: traMADol HCL 50 MG TABLET PO PRN ×2 (08:14→19:49)
[2020-06-05] MEDS: INSULIN GLARGINE SOLOSTAR 100 UNITS/ML 3 ML PEN SC SCH (09:28)
[2020-06-05] MEDS: INSULIN ASPART 100 UNITS/ML 3 ML PEN SC SCH ×4 (09:29→20:49)
--- NOTE | 2020-06-05 10:04 | Electrocardiogram Report ---
Test Reason : Blood Pressure : / mmHG Vent. Rate : 124 BPM Atrial Rate : 120 BPM P-R Int : 000 ms QRS Dur : 132 ms QT Int : 382 ms P-R-T Axes : 000 261 058 degrees QTc Int : 548 ms 2:1 Atrial Tachycardia vs 2:1 Flutter Right bundle branch block Rightward axis Abnormal ECG When compared with ECG of 03-JUN-2020 23:26, 2:1 Atrial tachycardia has replaced Sinus rhythm Confirmed by Matias Lamas ([id number]) on 06/05/2020 10:04:17 AM Referred By: REFERRED SELF Confirmed By:Matias Lamas
--- NOTE | 2020-06-05 10:08 | Electrocardiogram Report ---
Test Reason : Blood Pressure : / mmHG Vent. Rate : 124 BPM Atrial Rate : 125 BPM P-R Int : 176 ms QRS Dur : 128 ms QT Int : 360 ms P-R-T Axes : 000 259 055 degrees QTc Int : 517 ms 2:1 Atrial tachycardia vs 2:1 Atrial flutter Right bundle branch block Rightward axis Abnormal ECG When compared with ECG of 04-JUN-2020 18:43, (unconfirmed) No significant change was found Confirmed by Matias Lamas ([id number]) on 06/05/2020 10:07:50 AM Referred By: REFERRED SELF Confirmed By:Matias Lamas
--- NOTE | 2020-06-05 16:42 | Hospitalist Progress Note ---
Date of Service June 05, 2020 Assessment & Plan (1) Ileus: On 06/04, he had abdominal distention and increasing abdominal pain. CT a/p showed no transition point, but did show ileus. - Downgraded diet to clear liquids - Monitor with KUBs (2) Atrial flutter, paroxysmal: Overnight of 06/03-06/04, he became acutely tachycardic. Had been in the 70-80 range, then 120s. Initially thought it was sinus, but now seems more like his atrial flutter. - Rhythm control with amiodarone 200 mg p.o. daily. - Hold Xarelto for hemothorax - Add beta-morales for better rate control - Consult cardiology if rate doesn't come down with beta-morales (3) Multiple fractures of rib involving four or more ribs: May control with acetaminophen +/-tramadol as needed, will add additional medications if needed. - Incentive spirometry. - PT/OT eval and treat -> Plan for SNF/rehab when able. - Added additional lidocaine patch and increased tramadol on 06/03; seems to have helped. - On 06/04, got a CTA chest which showed mildly displaced lateral fractures on the 4th - 9th right ribs. Additional posterior fractures on 4th - 6th ribs. Small right hemothorax and extrapleural hemorrhage. Holding Xarelto. (4) Leukocytosis: Chronically elevated at baseline in the setting of steroid use. Increased on 06/04 in setting of ileus/early SBO. - Monitor for signs of infection. (5) Lytic bone lesions on xray: Noted incidentally on CT a/p on 06/01; however, no further notes on other dedicated spine CTs. - Discussed with Dr. Leyva and radiologist. These are common findings in someone his age. Given no other clinical signs of multiple myeloma, will not pursue further work-up. (6) CKD (chronic kidney disease) stage 3, GFR 30-59 ml/min: Baseline Cr ~1.3-1.4; eGFR ~50. - Presently up to 1.9. - Start IV fluids given poor PO intake; possibly pre-renal. (7) Fall: Long-standing ambulatory dysfunction. This fall seems mechanical in nature. - No further workup planned. (8) Type 2 diabetes mellitus: HbA1C was 8.8% in March; down to 7.7% now. - Hold glimepiride and Metformin. - Continue Lantus 45 units SQ QAM - Sliding scale insulin -> Running better now. Hold steady. (9) Chronic diastolic CHF (congestive heart failure): No acute exacerbation. - Hold home dosing of Lasix. (10) Chronic bronchitis: No recent PFTs. Chronic bronchitis noted on previous CTs - no emphysematous changes. 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 - Continue Trelegy Ellipta or hospital formulary equivalent. - DuoNebs PRN (11) GERD (gastroesophageal reflux disease): - Switch omeprazole for pantoprazole as per hospital formulary (12) History of prostate cancer: Status post surgery, no radiation or chemotherapy. (13) Coronary arteriosclerosis: Suspected based on prior myocardial perfusion scan. No chest pain today. - Continue simvastatin 40 mg p.o. at bedtime (14) Hypothyroidism: TSH WNL in April. - Continue usual home dose levothyroxine. (15) DVT prophylaxis: SCDs - Hold heparin for hemothorax on CT chest on 06/04 Admission and Anticipated Discharge Date Admission Date: June 03, 2020 Subjective Feeling better this morning. Less abdominal pain. Less distention. Reports no fevers/chills, chest pain, shortness of breath, abdominal pain, nausea, or vomiting. Physical Exam Constitutional: WD/WN, vitals as above + frail appearing; no acute distress Eyes: EOM intact bilaterally; no conjunctival abnormality ENMT: external ear and nose normal, oropharynx normal Neck: trachea midline, no thyromegaly normal visual inspection Respiratory: normal respiratory effort, lungs clear to auscultation no respiratory distress Cardiovascular: RRR, no murmur, no edema Gastrointestinal (Abdomen): Inspection/Auscultation: + abdomen distended and normal bowel sounds; + abdomen abnormal to inspection Percussion/Palpation: + abdomen tender and abdomen soft; no guarding and abdomen not rigid Musculoskeletal: no cyanosis or clubbing, extremities motor strength 5/5 Spine: thoracic spine normal to inspection, lumbar spine normal to inspection (No bruising) and + paraspinal tenderness (Right ribs) Skin: no rashes, warm and dry Neurologic: moves all extremities and awake Psychiatric: Orientation: alert, oriented to person and cooperative Results & Data Results & Data ([facility]) Vital Signs (Past 12 Hours) Vital Signs Temp Pulse Resp BP BP Pulse Ox 06/05/20 16:32 36.2 C L 135 H 20 121/80 93 06/05/20 12:04 93 06/05/20 11:08 36.6 C 130 H 138/86 96 06/05/20 08:15 36.7 C 131 H 18 124/80 93 PG Care Time/CCT Total # of Minutes Spent Total Time Spent with Patient: Total time spent is greater than 50% in coordination of care (as documented) at patient's floor/unit and/or counseling patient: Coding Level of Care Code 94090 Subseq Hosp Care Lvl 3 Diagnoses Ileus K56.7 Atrial flutter, paroxysmal I48.92 Multiple fractures of rib involving four or more ribs S22.49XA Leukocytosis D72.829 Lytic bone lesions on xray M89.9 CKD (chronic kidney disease) stage 3, GFR 30-59 ml/min N18.30 Fall W19.XXXA Encounter type: initial encounter Type 2 diabetes mellitus E11.9 Chronic diastolic CHF (congestive heart failure) I50.32 Chronic bronchitis J42 GERD (gastroesophageal reflux disease) K21.9 Esophagitis presence: esophagitis presence not specified History of prostate cancer Z85.46 Coronary arteriosclerosis I25.10 Hypothyroidism E03.9 Hypothyroidism type: unspecified DVT prophylaxis Z29.9 (1) Fall Encounter type: initial encounter Qualified Code(s): W19.XXXA - Unspecified fall, initial encounter (2) GERD (gastroesophageal reflux disease) Esophagitis presence: esophagitis presence not specified Qualified Code(s): K21.9 - Gastro-esophageal reflux disease without esophagitis (3) Hypothyroidism Hypothyroidism type: unspecified Qualified Code(s): E03.9 - Hypothyroidism, unspecified
[2020-06-05] MEDS ORDERED: NORMOSOL-R 1,000 ML IV ONE (17:00)
[2020-06-05] MEDS ORDERED: METOPROLOL TARTRATE 1 MG/ML VIAL IV PRN (17:00)
[2020-06-05] MEDS: METOPROLOL TARTRATE 25 MG TAB PO SCH (17:31)
[2020-06-05] MEDS: SIMVASTATIN 40 MG TAB PO SCH (19:49)
[2020-06-05] MEDS ORDERED: METOPROLOL SUCC 50MG EXT REL TAB PO STA (22:13)
--- NOTE | 2020-06-05 22:21 | Communication Note ---
Date of Service: June 05, 2020 Notified overnight that pt had been having sustained HRs in the 130s. Has metoprolol tartrate 25mg BID PO ordered with Lopressor IV 5MG ordered q4h. Also on amiodarone 200mg. Ordered a one time dose of metoprolol succinate 50mg. Noted BP at the time was 106 systolic. Advised nursing that it will take some time to have an effect, if any. Consider cardiology consult in the AM. 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
[2020-06-06] MEDS: LEVOTHYROXINE SODIUM 75 MCG TABLET PO SCH (05:38)
[2020-06-06 07:29] LABS: Hematocrit (blood only) 36.7 % (42-52); Hemoglobin 11.7 g/dL (14.0-18.0); Mean Corpuscular Hemoglobin 30.2 pg (25-34); Mean Corpuscular Hgb Conc 31.9 g/dL (32-36); Mean Corpuscular Volume 94.6 fL (80-100); Mean Platelet Volume 9.9 fL (7.4-10.4); Platelet Count 344 K/uL (130-400); RDW Coefficient of Variation 15.3 % (11.5-14.5); RDW Standard Deviation 52.5 fL (36.4-46.3); Red Blood Count 3.88 M/uL (4.7-6.1); White Blood Count 15.07 K/uL (4.8-10.8)
[2020-06-06 08:12] LABS: BUN Creatinine Ratio 29.2 (10-20); Blood Urea Nitrogen 46 mg/dl (7-18); Calcium 9.4 mg/dl (8.5-10.1); Carbon Dioxide 28 mmol/L (21-32); Chloride 105 mmol/L (98-107); Creatinine Clr Calc Pharmacy 39.8 ml/min; Est GFR (African American) 46.9; Est GFR (Non-African American) 40.4; Glucose 144 mg/dl (70-99); Sodium 140 mmol/L (136-145)
[2020-06-06] MEDS: UMECLIDINIUM/VILANTEROL 62.5/25MCG 7 PUFFS/INHALER INH SCH (08:15)
[2020-06-06] MEDS: FLUTICASONE FUROATE 100MCG 14 PUFFS/INHALER INH SCH (08:15)
[2020-06-06] MEDS: INSULIN ASPART 100 UNITS/ML 3 ML PEN SC SCH ×4 (08:15→21:38)
[2020-06-06] MEDS: INSULIN GLARGINE SOLOSTAR 100 UNITS/ML 3 ML PEN SC SCH (08:16)
[2020-06-06] MEDS: predniSONE 10 MG TABLET PO SCH (08:17)
[2020-06-06] MEDS: METOPROLOL TARTRATE 25 MG TAB PO SCH ×2 (08:17→21:15)
[2020-06-06] MEDS: PANTOprazole 40 MG TAB PO SCH (08:17)
[2020-06-06] MEDS: AMIODARONE 200 MG TAB PO SCH (08:17)
[2020-06-06] MEDS: ESCITALOPRAM OXALATE 20 MG TAB PO SCH (08:17)
[2020-06-06] MEDS: LIDOCAINE 5% 1 PATCH TD SCH (08:19)
[2020-06-06] MEDS: POLYETHYLENE (MIRALAX) 17 GM PACK PO SCH (08:21)
--- NOTE | 2020-06-06 08:21 | XRay Report ---
XR KUB/Abdomen 1 view CLINICAL HISTORY: Ileus COMPARISON STUDY: 06/04/2020 FINDINGS: There are persistent dilated gas-filled small bowel loops measuring up to 42 mm in diameter . There is a small amount of colonic gas present. There are surgical clips present within the pelvis. IMPRESSION: Slight increase in the nonspecific diffuse gaseous distention of the small bowel. ACT 112: Negative or not required by law. Electronically signed by: Rodger Robison M.D. 06/06/2020 8:20 AM
[2020-06-06] MEDS: cefTRIAXone SODIUM 2,000 MG in DEXTROSE 5% 50 ML IV SCH (10:29)
--- NOTE | 2020-06-06 10:47 | Cardiology Consultation ---
Date of Consultation Patient usually sees Bert Hoyos in the office. We were asked to see him because he has had heart rates in the 120-130 range since early in his admission on 03 June. He is a poor historian. He had a fall and has multiple rib fractures he also has a UTI. In reviewing his EKGs it looks like he has 2-1 atrial flutter versus 2-1 atrial tachycardia. If you review his baseline EKG sinus rhythm with first-degree AV block right bundle branch block and left anterior fascicular block. He has chest pain when he takes a deep breath. He denies any lower extremity edema. He does appear short of breath talking in sentences. He is unaware of any palpitations or fluttering or feeling his heart racing. He denies any lightheadedness or dizziness. He notes his appetite is poor. He notes he is unsteady with his gait and normally walks with a walker. The rest of a complete review of systems is unobtainable June 06, 2020 History of Present Illness Attending Physician: Luis F Desouza MD Allergies Allergy/AdvReac Type Severity Reaction Status Date / Time moxifloxacin Allergy Severe throat Verified 06/01/20 14:05 swelling ofloxacin Allergy Severe SWELLING Verified 06/01/20 14:05 AROUND FACE Quinolones Allergy Severe ANAPHYLAXIS Verified 06/01/20 14:05 formoterol Allergy Intermediate RASH Verified 06/01/20 14:05 Sulfa (Sulfonamide Allergy Intermediate severe red Verified 06/01/20 14:05 Antibiotics) rash Home Medications Home Medications Medication Instructions Recorded Confirmed Type cyanocobalamin (vitamin B-12) 500 mcg PO HS 05/02/19 06/01/20 History [Vitamin B-12] magnesium oxide 500 mg tablet 500 mg PO BID tab 05/07/19 06/01/20 History albuterol sulfate 2.5 mg INH Q4H PRN #360 ml 11/25/19 06/01/20 Rx albuterol sulfate 90 mcg/actuation 2 puffs INH Q4H PRN #8.5 gm 02/11/20 06/01/20 Rx aerosol inhaler simvastatin 80 mg tablet 40 mg PO HS #90 tab 03/03/20 06/01/20 Rx multivitamin with minerals 1 tab PO QAM 03/27/20 06/01/20 History [Multiple Vitamin-Minerals] amiodarone 200 mg tablet 200 mg PO QAM 90 Days #90 tab 04/08/20 06/01/20 Rx Lift Chair #1 ea 05/03/20 05/18/20 Rx Lift Chair #1 ea 05/03/20 05/18/20 Rx ascorbic acid (vitamin C) [Vitamin 500 mg PO QAM 05/03/20 06/01/20 History C] furosemide 20 mg tablet See Rx Instructions PO DAILY 05/06/20 06/01/20 History levothyroxine 75 mcg capsule See Rx Instructions PO DAILY 05/06/20 06/01/20 History escitalopram oxalate 20 mg tablet 20 mg PO QAM #90 tab 05/13/20 06/01/20 Rx insulin glargine 100 unit/mL (3 45 unit SC QAM ml 05/18/20 06/01/20 History mL) subcutaneous pen prednisone 10 mg tablet 10 mg PO QAM tab 05/18/20 06/01/20 History metformin 1,000 mg tablet 1,000 mg PO BID #180 tab 05/21/20 06/01/20 Rx Xarelto 20 mg PO HS 06/01/20 06/01/20 History ferrous sulfate 325 mg PO HS 06/01/20 06/01/20 History glimepiride 2 mg PO QAM 06/01/20 06/01/20 History omeprazole 40 mg PO QAM 06/01/20 06/01/20 History Patient History Medical History Anxiety Atrial fibrillation with rapid ventricular response Atrial flutter on xarelto Chronic diastolic CHF (congestive heart failure) Chronic steroid use Depression GERD (gastroesophageal reflux disease) Heart disease IRREGULAR RHYTHYM HLD (hyperlipidemia) HTN (hypertension) Hypothyroidism Iron deficiency anemia Kidney stones 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 Mild HOCM (hypertrophic obstructive cardiomyopathy) Nephrolithiasis Obstructive sleep apnea On anticoagulant therapy xarelto daily On home oxygen therapy 2L N/C at hs Organic impotence Pericardial effusion Pleural effusion HX OF Prostate cancer Steroid-induced osteopenia Surgical History H/O cystoscopy "History of Cystoscopy With Insertion Of Ureteral Stent" on CCD H/O tooth extraction History of bronchoscopy History of cardiac radiofrequency ablation History of prostatectomy History of repair of right rotator cuff Hx of colonoscopy Hx of esophagogastroduodenoscopy Family History Sister Ovarian cancer Mother Skin cancer Myocardial infarction Grandfather Myocardial infarction Other No family history of adverse response to anesthesia Stroke Denies family history of Prostate cancer Breast cancer Colorectal cancer Social History Smoking Status: Never smoker Second Hand Exposure: No; Do You Dip or Chew Tobacco: No; Tobacco Cessation Education Requested by Patient: No Hx Alcohol Use: No Hx Substance Use: No Preferred Language: Ghanaian Communication Ability: Effective Visual Impairment: No Limitations Hearing Ability: Use of Hearing Aid Systems Security Consultant Required: No Beliefs That Will Affect Care: None marital status: Current Living Situation: Spouse current occupational status: retired Other Information That Helps Us Care for You: No Feels Safe at Home: Yes Safety Concerns: Feels Safe At This Time Childhood Exposure to Second-Hand Smoke: No caffeine: Yes during the past year weight has: remained stable Dental Care, Regularly: No Physical Activity Frequency: Does not Exercise Seatbelt Use: always Sunscreen Use: No Assistive Devices: Oxygen - Continuous Results & Data ([facility]) Vital Signs (Past 12 Hours) Vital Signs Temp Pulse Pulse Resp BP Pulse Ox 06/06/20 09:57 120/78 06/06/20 07:47 37.2 C 129 H 18 121/78 93 06/06/20 07:35 132 H 06/06/20 03:17 36.5 C 131 H 18 127/83 95 06/05/20 23:35 130 H 06/05/20 23:30 37 C 129 H 18 108/68 92 he answer simple questions. He responds to his name. 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 His EKG is most consistent with recurrent atrial flutter and atrial tachycardia. I would start on amiodarone drip with the hope of converting him back to sinus rhythm. The concern with his trifascicular block is that we can cause high degree AV block especially when he converts back to sinus rhythm. At this point he is unaware of his tachycardia. His blood pressure is acceptable. Given his dementia I would not to be more aggressive than medical therapy at this point if at all possible. He is off anticoagulation at this point due to his hemothorax. He is at high risk for pneumonia given his poor inspiratory effort secondary to his multiple rib fractures. The [facility] practice will return tomorrow for his ongoing care
[2020-06-06] MEDS ORDERED: AMIODARONE IV BOLUS & DRIP IV STA (10:51)
[2020-06-06] MEDS ORDERED: 0.2 MICRON FILTER SET 1 EA IV ONE (10:51)
[2020-06-06] MEDS ORDERED: STAT IV Infusion **Titration per Protocol STA (10:51)
[2020-06-06] MEDS ORDERED: AMIODARONE / D5W 150 MG/100 ML BAG IV STA (11:03)
[2020-06-06] MEDS ORDERED: AMIODARONE / D5W 360 MG/200 ML BAG IV ONE (11:15)
--- NOTE | 2020-06-06 15:30 | Hospitalist Progress Note ---
Date of Service June 06, 2020 Assessment & Plan (1) Ileus: On 06/04, he had abdominal distention and increasing abdominal pain. CT a/p showed no transition point, but did show ileus. - Downgraded diet to clear liquids - KUB today shows mild increase in distention of small bowel. Will discuss with patient and whether he would be willing to trial NG tube. (2) Atrial flutter, paroxysmal: Overnight of 06/03-06/04, he became acutely tachycardic. Had been in the 70-80 range, then 120s. Initially thought it was sinus, but now seems more like his atrial flutter. - Rhythm control with amiodarone 200 mg p.o. daily. - Hold Xarelto for hemothorax - Added beta-morales for better rate control on 06/05 without any real improvement. - Consulted cardiology - Added amiodarone gtt on 06/06 (in addition to oral) to try to convert him. May need electrical cardioversion, though he has had his anticoagulation held due to hemothorax, so unclear if this is a viable option. (3) Multiple fractures of rib involving four or more ribs: May control with acetaminophen +/-tramadol as needed, will add additional medications if needed. - Incentive spirometry. - PT/OT eval and treat -> Plan for SNF/rehab when able. - Added additional lidocaine patch and increased tramadol on 06/03; seems to have helped. - On 06/04, got a CTA chest which showed mildly displaced lateral fractures on the 4th - 9th right ribs. Additional posterior fractures on 4th - 6th ribs. Small right hemothorax and extrapleural hemorrhage. Holding Xarelto. (4) UTI (urinary tract infection): UA on admission was contaminated, but WBC was going up and patient was having some mild symptoms. - Urine culture on 06/03 grew burgess-sensitive Proteus - Continue ceftriaxone (End date: 06/10 for a 7-day course) (5) Leukocytosis: Chronically elevated at baseline in the setting of steroid use. Increased on 06/04 in setting of ileus/early SBO. - Monitor for signs of infection. (6) CKD (chronic kidney disease) stage 3, GFR 30-59 ml/min: Baseline Cr ~1.3-1.4; eGFR ~50. - Up to 1.9 on 06/05. - Gave bolus of IV fluids given poor PO intake; improved on 06/06 to 1.6. (7) Fall: Long-standing ambulatory dysfunction. This fall seems mechanical in nature. - No further workup planned. (8) Type 2 diabetes mellitus: HbA1C was 8.8% in March; down to 7.7% now. - Hold glimepiride and Metformin. - Continue Lantus 45 units SQ QAM - Sliding scale insulin -> Sugars 110-200 today. Will need to lower long-acting if we put in NG tube. (9) Chronic diastolic CHF (congestive heart failure): No acute exacerbation. - Holding home dosing of Lasix. - Monitor volume status. (10) Chronic bronchitis: No recent PFTs. Chronic bronchitis noted on previous CTs - no emphysematous changes. 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 - Continue Trelegy Ellipta or hospital formulary equivalent. - Will switch to IV steroid if NG tube inserted. - DuJatinbs PRN (11) GERD (gastroesophageal reflux disease): - Switch omeprazole for pantoprazole as per hospital formulary (12) History of prostate cancer: Status post surgery, no radiation or chemotherapy. (13) Coronary arteriosclerosis: Suspected based on prior myocardial perfusion scan. No chest pain today. - Continue simvastatin 40 mg p.o. at bedtime (14) Hypothyroidism: TSH WNL in April. - Continue usual home dose levothyroxine. (15) Lytic bone lesions on xray: Noted incidentally on CT a/p on 06/01; however, no further notes on other dedicated spine CTs. - Discussed with Dr. Leyva and radiologist. These are common findings in someone his age. Given no other clinical signs of multiple myeloma, will not pursue further work-up. (16) DVT prophylaxis: SCDs - Hold heparin for hemothorax on CT chest on 06/04 Admission and Anticipated Discharge Date Admission Date: June 03, 2020 Subjective Less pain today in the ribs. Still hasn't moved his bowels, but abdomen is less tender and distended than previously. Reports no fevers/chills, chest pain, shortness of breath, abdominal pain, nausea, or vomiting. Physical Exam Constitutional: WD/WN, vitals as above + frail appearing; no acute distress Eyes: EOM intact bilaterally; no conjunctival abnormality ENMT: external ear and nose normal, oropharynx normal Neck: trachea midline, no thyromegaly normal visual inspection Respiratory: normal respiratory effort, lungs clear to auscultation no respiratory distress Cardiovascular: Rate/Rhythm: regular rhythm and + tachycardic Heart Sounds: normal S1 and normal S2 Gastrointestinal (Abdomen): Inspection/Auscultation: + abdomen distended and normal bowel sounds; + abdomen abnormal to inspection Percussion/Palpation: abdomen soft; abdomen nontender, no guarding and abdomen not rigid Musculoskeletal: no cyanosis or clubbing, extremities motor strength 5/5 Spine: thoracic spine normal to inspection, lumbar spine normal to inspection (No bruising) and + paraspinal tenderness (Right ribs) Skin: no rashes, warm and dry Neurologic: moves all extremities and awake Psychiatric: Orientation: alert, oriented to person and cooperative Results & Data Results & Data ([facility]) Vital Signs (Past 12 Hours) Vital Signs Temp Pulse Pulse Resp BP BP Pulse Ox 06/06/20 14:36 36.7 C 125 H 18 104/73 95 06/06/20 11:08 36.5 C 129 H 18 110/75 94 06/06/20 09:57 120/78 06/06/20 07:47 37.2 C 129 H 18 121/78 93 06/06/20 07:35 132 H 06/06/20 03:17 36.5 C 131 H 18 127/83 95 PG Care Time/CCT Total # of Minutes Spent Total Time Spent with Patient: Total time spent is greater than 50% in coordination of care (as documented) at patient's floor/unit and/or counseling patient: Coding Level of Care Code 99847 Subseq Hosp Care Lvl 3 Diagnoses Ileus K56.7 Atrial flutter, paroxysmal I48.92 Multiple fractures of rib involving four or more ribs S22.49XA UTI (urinary tract infection) N39.0 Leukocytosis D72.829 CKD (chronic kidney disease) stage 3, GFR 30-59 ml/min N18.30 Fall W19.XXXA Encounter type: initial encounter Type 2 diabetes mellitus E11.9 Chronic diastolic CHF (congestive heart failure) I50.32 Chronic bronchitis J42 GERD (gastroesophageal reflux disease) K21.9 Esophagitis presence: esophagitis presence not specified History of prostate cancer Z85.46 Coronary arteriosclerosis I25.10 Hypothyroidism E03.9 Hypothyroidism type: unspecified Lytic bone lesions on xray M89.9 DVT prophylaxis Z29.9 (1) Fall Encounter type: initial encounter Qualified Code(s): W19.XXXA - Unspecified fall, initial encounter (2) GERD (gastroesophageal reflux disease) Esophagitis presence: esophagitis presence not specified Qualified Code(s): K21.9 - Gastro-esophageal reflux disease without esophagitis (3) Hypothyroidism Hypothyroidism type: unspecified Qualified Code(s): E03.9 - Hypothyroidism, unspecified
[2020-06-06] MEDS ORDERED: bisacodyL 10 MG SUPP PR STA (16:26)
[2020-06-06] MEDS: AMIODARONE / D5W 360 MG/200 ML BAG IV SCH (17:11)
[2020-06-07] MEDS: AMIODARONE / D5W 360 MG/200 ML BAG IV SCH ×2 (05:42→15:27)
[2020-06-07] MEDS: LEVOTHYROXINE SODIUM 75 MCG TABLET PO SCH (05:43)
--- NOTE | 2020-06-07 07:05 | XRay Report ---
KUB HISTORY: Follow up study in a patient with abdominal distention Ileus COMPARISON: KUB 06/06/2020, CT abdomen and pelvis 06/04/2020 FINDINGS: Moderately distended loops of small bowel within the central abdomen redemonstrated measuri ng up to 4.1 cm transversely. There is mild improvement from yesterday's exam. Gastric is noted withi n the large bowel and right hemicolon. Surgical clips of the midline lower pelvis. No renal calculi. No ureteral calculi. No pneumoperitoneum or pneumatosis. No fracture. IMPRESSION: Persistent gaseous distended loops of small bowel, mildly improved from yesterday's exam. Ileus versu s small bowel obstruction considered. Continued follow-up recommended. ACT 112: Negative or not required by law. The above report was generated using voice recognition software. It may contain grammatical, syntax o r spelling errors. Electronically signed by: Chris Quintanilla M.D. 06/07/2020 7:04 AM
[2020-06-07 07:50] LABS: Hematocrit (blood only) 34.9 % (42-52); Hemoglobin 11.1 g/dL (14.0-18.0); Mean Corpuscular Hemoglobin 29.8 pg (25-34); Mean Corpuscular Hgb Conc 31.8 g/dL (32-36); Mean Corpuscular Volume 93.8 fL (80-100); Mean Platelet Volume 9.9 fL (7.4-10.4); Platelet Count 316 K/uL (130-400); RDW Coefficient of Variation 15.1 % (11.5-14.5); RDW Standard Deviation 51.1 fL (36.4-46.3); Red Blood Count 3.72 M/uL (4.7-6.1); White Blood Count 12.04 K/uL (4.8-10.8)
[2020-06-07 07:52] LABS: BUN Creatinine Ratio 32.1 (10-20); Calcium 8.9 mg/dl (8.5-10.1); Creatinine Clr Calc Pharmacy 51.7 ml/min; Est GFR (African American) 64.2; Est GFR (Non-African American) 55.4; Magnesium 2.4 mg/dl (1.8-2.4); Potassium 3.7 mmol/L (3.5-5.1)
[2020-06-07] MEDS: UMECLIDINIUM/VILANTEROL 62.5/25MCG 7 PUFFS/INHALER INH SCH (08:22)
[2020-06-07] MEDS: FLUTICASONE FUROATE 100MCG 14 PUFFS/INHALER INH SCH (08:22)
[2020-06-07] MEDS: INSULIN GLARGINE SOLOSTAR 100 UNITS/ML 3 ML PEN SC SCH (08:22)
[2020-06-07] MEDS: INSULIN ASPART 100 UNITS/ML 3 ML PEN SC SCH ×4 (08:23→22:39)
[2020-06-07] MEDS: PANTOprazole 40 MG TAB PO SCH (08:24)
[2020-06-07] MEDS: ESCITALOPRAM OXALATE 20 MG TAB PO SCH (08:24)
[2020-06-07] MEDS: predniSONE 10 MG TABLET PO SCH (08:24)
[2020-06-07] MEDS: LIDOCAINE 5% 1 PATCH TD SCH (08:24)
[2020-06-07] MEDS: METOPROLOL TARTRATE 25 MG TAB PO SCH ×2 (08:24→20:43)
[2020-06-07] MEDS: AMIODARONE 200 MG TAB PO SCH (08:24)
[2020-06-07] MEDS: traMADol HCL 50 MG TABLET PO PRN (08:30)
[2020-06-07] MEDS: POLYETHYLENE (MIRALAX) 17 GM PACK PO SCH (08:30)
[2020-06-07] MEDS: cefTRIAXone SODIUM 2,000 MG in DEXTROSE 5% 50 ML IV SCH (08:36)
--- NOTE | 2020-06-07 11:51 | XRay Report ---
XR chest 1V portable CLINICAL HISTORY: hemothorax, rib fractures COMPARISON STUDY: 06/04/2020 FINDINGS: The heart is enlarged. There are multiple right-sided rib fractures with associated pleural reaction. There is no failure. There is no lobar consolidation. There are no pleural effusions. Left basilar atelectatic changes are also evident.[ IMPRESSION: 1. Cardiomegaly 2. Right-sided rib fractures with associated pleural reaction. 3. No evidence of focal pulmonary consolidation ACT 112: Negative or not required by law. Electronically signed by: Rodger Robison M.D. 06/07/2020 11:50 AM
--- NOTE | 2020-06-07 13:09 | Hospitalist Progress Note ---
Date of Service June 07, 2020 Assessment & Plan (1) Ileus: On 06/04, he had abdominal distention and increasing abdominal pain. CT a/p showed no transition point, but did show ileus. - Continue on clear liquids - Suspect secondary to opiates, stop morphine - consult surgery - I do not feel an NG tube is warranted currently (2) Atrial flutter, paroxysmal: Overnight of 06/03-06/04, he became acutely tachycardic. Had been in the 70-80 range, then 120s. Initially thought it was sinus, but now seems more like his atrial flutter. - Rhythm control with amiodarone 200 mg p.o. daily. - Hold Xarelto for hemothorax - Added beta-morales for better rate control on 06/05 without any real improvement. - Consulted cardiology - Added amiodarone gtt on 06/06 (in addition to oral) to try to convert him. May need electrical cardioversion, though he has had his anticoagulation held due to hemothorax, so unclear if this is a viable option. (3) Multiple fractures of rib involving four or more ribs: May control with acetaminophen +/-tramadol as needed, will add additional medications if needed. - Incentive spirometry. - PT/OT eval and treat -> Plan for SNF/rehab when able. - Added additional lidocaine patch and increased tramadol on 06/03; seems to have helped. - On 06/04, got a CTA chest which showed mildly displaced lateral fractures on the 4th - 9th right ribs. Additional posterior fractures on 4th - 6th ribs. Small right hemothorax and extrapleural hemorrhage. Holding Xarelto. - repeat CXR today. (4) UTI (urinary tract infection): UA on admission was contaminated, but WBC was going up and patient was having some mild symptoms. - Urine culture on 06/03 grew burgess-sensitive Proteus - Continue ceftriaxone (End date: 06/10 for a 7-day course) (5) Leukocytosis: Chronically elevated at baseline in the setting of steroid use. Increased on 06/04 in setting of ileus/early SBO. - Monitor for signs of infection, improving with treatment for UTI (6) CKD (chronic kidney disease) stage 3, GFR 30-59 ml/min: Baseline Cr ~1.3-1.4; eGFR ~50. - Up to 1.9 on 06/05. - Gave bolus of IV fluids given poor PO intake; improved on 06/06 to 1.6. - much improved to 1.2 today (7) Fall: Long-standing ambulatory dysfunction. This fall seems mechanical in nature. - No further workup planned. (8) Type 2 diabetes mellitus: HbA1C was 8.8% in March; down to 7.7% now. - Hold glimepiride and Metformin. - Continue Lantus 45 units SQ QAM - Sliding scale insulin -> BSG 100-200. (9) Chronic diastolic CHF (congestive heart failure): No acute exacerbation. - Holding home dosing of Lasix. - Monitor volume status. (10) Chronic bronchitis: No recent PFTs. Chronic bronchitis noted on previous CTs - no emphysemato us changes. 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 - Continue Trelegy Ellipta or hospital formulary equivalent. - DuoNebs PRN (11) GERD (gastroesophageal reflux disease): - Switch omeprazole for pantoprazole as per hospital formulary (12) History of prostate cancer: Status post surgery, no radiation or chemotherapy. (13) Coronary arteriosclerosis: Suspected based on prior myocardial perfusion scan. No chest pain today. - Continue simvastatin 40 mg p.o. at bedtime (14) Hypothyroidism: TSH WNL in April. - Continue usual home dose levothyroxine. (15) Lytic bone lesions on xray: Noted incidentally on CT a/p on 06/01; however, no further notes on other dedicated spine CTs. - Discussed with Dr. Leyva and radiologist. These are common findings in someone his age. Given no other clinical signs of multiple myeloma, will not pursue further work-up. (16) DVT prophylaxis: SCDs - Hold heparin for hemothorax on CT chest on 06/04 Admission and Anticipated Discharge Date Admission Date: June 03, 2020 Subjective No nausea, vomiting, had BM with enema yesterday. Continued right rib pain and taking shallow breaths because of this. No cough. Heart rate somewhat improved with IV amiodarone and remains asymptomatic from this point of view. Review of Systems Review of Systems: All systems reviewed & are unremarkable except as noted in HPI & below Physical Exam Constitutional: well developed and well nourished; no acute distress Respiratory: normal respiratory effort, lungs clear to auscultation (poor inspiratory effort) Cardiovascular: Rate/Rhythm: regular rate and regular rhythm Heart Sounds: no murmur Vessels: no JVD Extremities: normal capillary refill and + pedal edema (Trace bilateral equal); no calf tenderness Gastrointestinal (Abdomen): normal bowel sounds, soft, nontender, no hepatosplenomegaly Musculoskeletal: no cyanosis or clubbing, extremities motor strength 5/5 Skin: no rashes, warm and dry Neurologic: moves all extremities and awake; not confused Psychiatric: A+Ox3, euthymic affect Results & Data Results & Data ([facility]) Vital Signs (Past 12 Hours) Vital Signs Temp Pulse Pulse Resp BP BP Pulse Ox 06/07/20 12:11 36.3 C L 111 H 19 100/68 96 06/07/20 08:17 36.4 C L 91 H 18 105/72 98 06/07/20 08:10 97 H 06/07/20 03:56 36.3 C L 83 18 101/65 94 PG Care Time/CCT Total # of Minutes Spent Total Time Spent with Patient: Total time spent is greater than 50% in coordination of care (as documented) at patient's floor/unit and/or counseling patient: Coding Level of Care Code 81058 Subseq Hosp Care Lvl 3 Diagnoses Ileus K56.7 Atrial flutter, paroxysmal I48.92 Multiple fractures of rib involving four or more ribs S22.49XA UTI (urinary tract infection) N39.0 Leukocytosis D72.829 CKD (chronic kidney disease) stage 3, GFR 30-59 ml/min N18.30 Fall W19.XXXA Encounter type: initial encounter Type 2 diabetes mellitus E11.9 Chronic diastolic CHF (congestive heart failure) I50.32 Chronic bronchitis J42 GERD (gastroesophageal reflux disease) K21.9 Esophagitis presence: esophagitis presence not specified History of prostate cancer Z85.46 Coronary arteriosclerosis I25.10 Hypothyroidism E03.9 Hypothyroidism type: unspecified Lytic bone lesions on xray M89.9 DVT prophylaxis Z29.9 (1) Hypothyroidism Hypothyroidism type: unspecified Qualified Code(s): E03.9 - Hypothyroidism, unspecified (2) GERD (gastroesophageal reflux disease) Esophagitis presence: esophagitis presence not specified Qualified Code(s): K21.9 - Gastro-esophageal reflux disease without esophagitis (3) Fall Encounter type: initial encounter Qualified Code(s): W19.XXXA - Unspecified fall, initial encounter
--- NOTE | 2020-06-07 13:17 | Surgery Consultation ---
Date of Consultation June 07, 2020 Assessment & Plan (1) Ileus: improving KUB with dilated small bowel but more colonic gas today keep on clears encourage activity cont supp seen with Dr. Rose Supervising Physician Co-Signing Physician Notes I personally saw and evaluated the patient with Aniket Castillo PA-C and agree with the assesment and plan. -80 yo s/p fall with multiple right sided rib fractures and ileus -CT images and results reviewed from 06/04, KUB from today -Looks to have decreased small bowel distension and is passing flatus without N/V -Will increase suppository to BID -Encourage ambulation and IS -Continue clears for today and repeat KUB in AM -No plans for surgical intervention History of Present Illness Attending Physician: Tarik Lindquist MD History of Present Illness 80 y/o male fell at home during the night getting back into bed and suffered mul tiple rib fractures (right 4-9). Was admitted the next day. He began having some abdominal distention, had not moved his bowels for several days. NG was considered but he wanted to wait and had a BM yesterday after suppository was given. Today is passing flatus. Was put back to clears yesterday. Allergies Allergy/AdvReac Type Severity Reaction Status Date / Time moxifloxacin Allergy Severe throat Verified 06/01/20 14:05 swelling ofloxacin Allergy Severe SWELLING Verified 06/01/20 14:05 AROUND FACE Quinolones Allergy Severe ANAPHYLAXIS Verified 06/01/20 14:05 formoterol Allergy Intermediate RASH Verified 06/01/20 14:05 Sulfa (Sulfonamide Allergy Intermediate severe red Verified 06/01/20 14:05 Antibiotics) rash Home Medications Home Medications Medication Instructions Recorded Confirmed Type cyanocobalamin (vitamin B-12) 500 mcg PO HS 05/02/19 06/01/20 History [Vitamin B-12] magnesium oxide 500 mg tablet 500 mg PO BID tab 05/07/19 06/01/20 History albuterol sulfate 2.5 mg INH Q4H PRN #360 ml 11/25/19 06/01/20 Rx albuterol sulfate 90 mcg/actuation 2 puffs INH Q4H PRN #8.5 gm 02/11/20 06/01/20 Rx aerosol inhaler simvastatin 80 mg tablet 40 mg PO HS #90 tab 03/03/20 06/01/20 Rx multivitamin with minerals 1 tab PO QAM 03/27/20 06/01/20 History [Multiple Vitamin-Minerals] amiodarone 200 mg tablet 200 mg PO QAM 90 Days #90 tab 04/08/20 06/01/20 Rx Lift Chair #1 ea 05/03/20 05/18/20 Rx Lift Chair #1 ea 05/03/20 05/18/20 Rx ascorbic acid (vitamin C) [Vitamin 500 mg PO QAM 05/03/20 06/01/20 History C] furosemide 20 mg tablet See Rx Instructions PO DAILY 05/06/20 06/01/20 History levothyroxine 75 mcg capsule See Rx Instructions PO DAILY 05/06/20 06/01/20 History escitalopram oxalate 20 mg tablet 20 mg PO QAM #90 tab 05/13/20 06/01/20 Rx insulin glargine 100 unit/mL (3 45 unit SC QAM ml 05/18/20 06/01/20 History mL) subcutaneous pen prednisone 10 mg tablet 10 mg PO QAM tab 05/18/20 06/01/20 History metformin 1,000 mg tablet 1,000 mg PO BID #180 tab 05/21/20 06/01/20 Rx Xarelto 20 mg PO HS 06/01/20 06/01/20 History ferrous sulfate 325 mg PO HS 06/01/20 06/01/20 History glimepiride 2 mg PO QAM 06/01/20 06/01/20 History omeprazole 40 mg PO QAM 06/01/20 06/01/20 History Patient History Medical History Anxiety Atrial fibrillation with rapid ventricular response Atrial flutter on xarelto Chronic diastolic CHF (congestive heart failure) Chronic steroid use Depression GERD (gastroesophageal reflux disease) Heart disease IRREGULAR RHYTHYM HLD (hyperlipidemia) HTN (hypertension) Hypothyroidism Iron deficiency anemia Kidney stones Left ventricular outflow tract obstruction emt intermediate current use of systemic steroids Mild HOCM (hypertrophic obstructive cardiomyopathy) Nephrolithiasis Obstructive sleep apnea On anticoagulant therapy xarelto daily On home oxygen therapy 2L N/C at hs Organic impotence Pericardial effusion Pleural effusion HX OF Prostate cancer Steroid-induced osteopenia Surgical History H/O cystoscopy "History of Cystoscopy With Insertion Of Ureteral Stent" on CCD H/O tooth extraction History of bronchoscopy History of cardiac radiofrequency ablation History of prostatectomy History of repair of right rotator cuff Hx of colonoscopy Hx of esophagogastroduodenoscopy Family History Sister Ovarian cancer Mother Skin cancer Myocardial infarction Grandfather Myocardial infarction Other No family history of adverse response to anesthesia Stroke Denies family history of Prostate cancer Breast cancer Colorectal cancer Social History Smoking Status: Never smoker Second Hand Exposure: No; Do You Dip or Chew Tobacco: No; Tobacco Cessation Education Requested by Patient: No Hx Alcohol Use: No Hx Substance Use: No Preferred Language: British Communication Ability: Effective Visual Impairment: No Limitations Hearing Ability: Use of Hearing Aid Science And Operations Officer Required: No Beliefs That Will Affect Care: None marital status: Current Living Situation: Spouse current occupational status: retired Other Information That Helps Us Care for You: No Feels Safe at Home: Yes Safety Concerns: Feels Safe At This Time Childhood Exposure to Second-Hand Smoke: No caffeine: Yes during the past year weight has: remained stable Dental Care, Regularly: No Physical Activity Frequency: Does not Exercise Seatbelt Use: always Sunscreen Use: No Assistive Devices: Cane, Oxygen - Continuous and Walker Review of Systems Constitutional: no fever and no chills Respiratory: + pain on inspiration and + pain with cough; no dyspnea Gastrointestinal: + abdominal pain (improved) and + constipation (at home sometimes); no nausea Physical Exam Constitutional: WD/WN, vitals as above ENMT: external ear and nose normal, oropharynx normal (no NGT) Respiratory: normal respiratory effort Gastrointestinal (Abdomen): Inspection/Auscultation: + abdomen distended (mil d) Percussion/Palpation: abdomen soft; abdomen nontender and no guarding Results & Data ([facility]) Vital Signs (Past 12 Hours) Vital Signs Temp Pulse Pulse Resp BP BP Pulse Ox 06/07/20 12:11 36.3 C L 111 H 19 100/68 96 06/07/20 08:17 36.4 C L 91 H 18 105/72 98 06/07/20 08:10 97 H 06/07/20 03:56 36.3 C L 83 18 101/65 94 PG Care Time/CCT Total # of Minutes Spent Total Time Spent with Patient: Total time spent is greater than 50% in coordination of care (as documented) at patient's floor/unit and/or counseling patient: Coding Level of Care Code 07980 Initial Inpt Care Lvl 1 Diagnoses Ileus K56.7
--- NOTE | 2020-06-07 15:51 | Cardiology Progress Note ---
Date of Service June 07, 2020 Assessment & Plan (1) Atrial flutter: 2. Fall with rib fractures/small hemothorax 3. Chronic diastolic heart failure 4. Ileus 5. Possible UTI 6. COPD/obstructive sleep apnea 7. Type 2 diabetes 8. Dementia/Frailty Remains in what appears to be atypical atrial flutter. Asymptomatic with heart rates persistently 110s to 120s. On exam appears well-perfused with no signs of heart failure With atrial flutter is going to be difficult to rate control but would avoid attempts at electrical or chemical cardioversion while off anticoagulation. Can discontinue amiodarone infusion. Resume anticoagulation with Eliquis when safe from a hemothorax standpoint Continue current metoprolol. Titrate up as BP allows Will load with digoxin Will consider diltiazem infusion if rate control is adequate Continue home p.o. Lasix continue home p.o. amiodarone for rhythm maintenance if were to need cardioversion in the future We will follow Admission and Anticipated Discharge Date Admission Date: June 03, 2020 Subjective Denies chest pain, shortness of breath, palpitations today. Reasonably controlled right flank pain, worse with movement. Telemetry reviewedpersistent atrial flutter heart rates in the 110s to 120s Review of Systems Review of Systems: Unobtainable due to cognitive status Physical Exam Physical Exam: General: Comfortable, no acute distress HEENT: Sclerae anicteric, mucous membranes moist Lungs: Clear to auscultation at bases bilaterally Cardiac: Tachycardic, regular, no murmurs Abdomen: Soft, nontender, nondistended, positive bowel sounds. Extremities: Warm, well perfused, no edema. 2+ radial pulses Skin: No rashes or lesions. Neuro: Nonfocal Psych: Alert and oriented Results & Data ([facility]) Vital Signs (Past 12 Hours) Vital Signs Temp Pulse Pulse Pulse Resp BP BP 06/07/20 15:34 97.7 F 114 H 19 95/61 L 06/07/20 12:11 97.3 F L 111 H 19 100/68 06/07/20 08:17 97.5 F L 91 H 18 105/72 06/07/20 08:10 97 H 06/07/20 03:56 97.3 F L 83 18 101/65 Pulse Ox 06/07/20 15:34 96 06/07/20 12:11 96 06/07/20 08:17 98 10/19/20 08:10 06/07/20 03:56 94 PG Care Time/CCT Total # of Minutes Spent Total Time Spent with Patient: Total time spent is greater than 50% in coordination of care (as documented) at patient's floor/unit and/or counseling patient: Coding Level of Care Code 38732 Subseq Hosp Care Lvl 3 Diagnoses Atrial flutter I48.92
[2020-06-07] MEDS ORDERED: DIGOXIN 0.25 MG TAB PO ONE (15:53)
[2020-06-07] MEDS: bisacodyL 10 MG SUPP PR SCH (20:41)
[2020-06-07] MEDS: CARBOHYDRATES FOR HYPOGLYCEMIA PO PRN ×2 (20:57→21:18)
[2020-06-07] MEDS ORDERED: DIGOXIN 0.125 MG TAB PO SCH (22:00)
[2020-06-08] MEDS: traMADol HCL 50 MG TABLET PO PRN ×4 (02:07→21:17)
[2020-06-08] MEDS: DIGOXIN 0.125 MG TAB PO SCH (05:18)
[2020-06-08] MEDS: LEVOTHYROXINE SODIUM 75 MCG TABLET PO SCH (05:19)
[2020-06-08] MEDS: ACETAMINOPHEN 325 MG TAB PO PRN (05:35)
--- NOTE | 2020-06-08 07:43 | XRay Report ---
KUB HISTORY: Follow-up Ileus COMPARISON: KUB 06/07/2020. FINDINGS: Mildly dilated gas-filled loops of small bowel are again noted. These measure up to 4.3 cm in diameter. This is similar to the prior study. Gas and stool is again noted throughout the colon an d rectum. Therefore, these findings favor a continued ileus. There postoperative changes consistent w ith prior prostatectomy. No renal calculi. No ureteral calculi. No pneumoperitoneum or pneumatosis. IMPRESSION: No change in the suspected mild ileus. ACT 112: Negative or not required by law. Electronically signed by: Sandor Murdock M.D. 06/08/2020 7:42 AM
[2020-06-08] MEDS: INSULIN GLARGINE SOLOSTAR 100 UNITS/ML 3 ML PEN SC SCH (08:33)
[2020-06-08] MEDS: INSULIN ASPART 100 UNITS/ML 3 ML PEN SC SCH ×4 (08:33→21:10)
--- NOTE | 2020-06-08 08:33 | Surgery Progress Note ---
Date of Service June 08, 2020 Assessment & Plan (1) Ileus: KUB this AM improved gas pattern can try full liquids encourage activity cont supp Admission and Anticipated Discharge Date Admission Date: June 03, 2020 Supervising Physician Co-Signing Physician Notes I personally saw and evaluated the patient with Aniket Castillo PA-C and agree with the assessment and plan. 80 yo with multiple right sided rib fractures and ileus -Improving, passing flatus and having BM's -No nausea, will increase to regular diet tomorrow if continues to have bowel function -Will follow Subjective no nausea, BM last night, increasing flatus Physical Exam Gastrointestinal (Abdomen): Inspection/Auscultation: + abdomen distended (mild) Percussion/Palpation: abdomen soft; abdomen nontender Results & Data ([facility]) Vital Signs (Past 12 Hours) Vital Signs Temp Pulse Pulse Resp BP BP Pulse Ox 06/08/20 07:28 36.4 C L 120 H 18 104/62 93 06/08/20 05:18 118 H 06/08/20 03:25 36.5 C 94 H 18 122/72 99 06/08/20 00:21 90 06/07/20 23:54 36.4 C L 77 18 109/62 96 06/07/20 22:45 90 PG Care Time/CCT Total # of Minutes Spent Total Time Spent with Patient: Total time spent is greater than 50% in coordination of care (as documented) at patient's floor/unit and/or counseling patient: Coding Level of Care Code 21283 Subseq Hosp Care Lvl 1 Diagnoses Ileus K56.7
[2020-06-08] MEDS: cefTRIAXone SODIUM 2,000 MG in DEXTROSE 5% 50 ML IV SCH (08:34)
[2020-06-08] MEDS: ESCITALOPRAM OXALATE 20 MG TAB PO SCH (08:35)
[2020-06-08] MEDS: predniSONE 10 MG TABLET PO SCH (08:35)
[2020-06-08] MEDS: bisacodyL 10 MG SUPP PR SCH ×2 (08:35→21:12)
[2020-06-08] MEDS: LIDOCAINE 5% 1 PATCH TD SCH (08:35)
[2020-06-08] MEDS: PANTOprazole 40 MG TAB PO SCH (08:35)
[2020-06-08] MEDS: FLUTICASONE FUROATE 100MCG 14 PUFFS/INHALER INH SCH (08:36)
[2020-06-08] MEDS: UMECLIDINIUM/VILANTEROL 62.5/25MCG 7 PUFFS/INHALER INH SCH (08:36)
[2020-06-08] MEDS: AMIODARONE 200 MG TAB PO SCH (08:36)
[2020-06-08] MEDS: METOPROLOL TARTRATE 25 MG TAB PO SCH ×2 (08:36→21:12)
[2020-06-08] MEDS: POLYETHYLENE (MIRALAX) 17 GM PACK PO SCH (08:44)
[2020-06-08] MEDS ORDERED: predniSONE 10 MG TABLET PO ONE (09:30)
--- NOTE | 2020-06-08 17:28 | Hospitalist Progress Note ---
Date of Service June 08, 2020 Assessment & Plan (1) Atrial flutter, paroxysmal: appreciate cardiology consult & recs. cont metoprolol and digoxin for rate control. cont amiodarone 200mg daily. at least for now need to hold xarelto due to right-sided hemothorax. if latter proves stable over several days with no signs of worsening then can resume xarelto then. cont telemetry. repeat labs am. (2) Multiple fractures of rib involving four or more ribs: right 4th - 9th fractures. lidoderm patches. tramadol prn. pulmonary toilet to prevent collapse/atelectasis. repeat cxr today to ensure no worsening of hemothorax. holding xarelto. (3) Hemothorax on right: traumatic in face of xarelto use and multiple rib fractures. repeat cxr today. H/H acceptable/stable. (4) Acute kidney injury: peak Cr 1.9 yesterday 1.2 repeat BMP am (5) UTI (urinary tract infection): pansens proteus remains on rocephin day #5 of rocephin can likely change to PO abx tomorrow (6) Ileus: likely combination of inciting factors -- pain meds, immobility due to pain, UTI, etc. surgery following ileus slowly resolving diet advancing passing flatus (7) CKD (chronic kidney disease) stage 3, GFR 30-59 ml/min: baseline CrCl <60 regularly bmp am (8) Type 2 diabetes mellitus: cont lantus 45 units am novolog correction & carb coverage (9) Chronic diastolic CHF (congestive heart failure): crackles on exam today, but repeat cxr w/o CHF compensated (10) Hypothyroidism: TSH 04/2020 wnl cont levothyroxine as is (11) GERD (gastroesophageal reflux disease): PPI (12) HLD (hyperlipidemia): statin on hold for now (13) HTN (hypertension): BPs well controlled (14) Chronic steroid use: for COPD? give stress dose steroids today - give additional 30mg x 1 today; then additional 20mg tomorrow; then additional 10mg the next day; then back to normal 10mg daily (15) Chronic bronchitis: per records cont usual inhalers (16) DVT prophylaxis: scds holding xarelto due to hemothorax PT, OT evals Admission and Anticipated Discharge Date Admission Date: June 03, 2020 Subjective tele continues with rapid a flutter. patient very tired during the visit but able to answer all questions. main complaint is that of right-sided chest wall pain. severe with movement and deep breaths. denies. dyspnea, however. passing more flatus today than previous and tolerating full liquids. abdomen doesn't feel as bloated today. no emesis. Review of Systems Constitutional: + fatigue; no fever Respiratory: no cough Cardiovascular: as per Subjective / HPI and + chest pain Gastrointestinal: + bloating; no vomiting Physical Exam Constitutional: + frail appearing; no acute distress and no altered mental status ENMT: external ear and nose normal, oropharynx normal Respiratory: Auscultation: + diminished lung sounds (Right base) and + crackles (B/l ) Cardiovascular: Rate/Rhythm: + tachycardic Heart Sounds: normal S1 and normal S2; no murmur Vessels: posterior tibial pulses present and dorsalis pedis pulses present; no JVD Extremities: no edema Chest (Breasts): Additional Comments: tender to palpation right lower costal margin Gastrointestinal (Abdomen): Inspection/Auscultation: + abdomen distended; + abnormal bowel sounds Percussion/Palpation: abdomen nontender and no hepatosplenomegaly Skin: + pallor Psychiatric: Orientation: alert Results & Data Results & Data ([facility]) Vital Signs (Past 12 Hours) Vital Signs Temp Pulse Pulse Resp BP Pulse Ox 06/08/20 15:47 36.9 C 74 18 139/78 99 06/08/20 14:20 117 H 06/08/20 11:20 36.4 C L 118 H 18 116/82 94 06/08/20 09:38 118 H 06/08/20 07:28 36.4 C L 120 H 18 104/62 93 Laboratory Results Laboratory Results - last 24 hr 06/08/20 06/08/20 06/08/20 07:30 11:44 16:30 POC Glucose 98 142 H 296 H 06/08/20 21:04 POC Glucose 203 H PG Care Time/CCT Total # of Minutes Spent Total Time Spent with Patient: Total time spent is greater than 50% in coordination of care (as documented) at patient's floor/unit and/or counseling patient: Coding Level of Care Code 95663 Subseq Hosp Care Lvl 3 Diagnoses Atrial flutter, paroxysmal I48.92 Multiple fractures of rib involving four or more ribs S22.49XA Hemothorax on right J94.2 Acute kidney injury N17.9 UTI (urinary tract infection) N39.0 Ileus K56.7 CKD (chronic kidney disease) stage 3, GFR 30-59 ml/min N18.30 Type 2 diabetes mellitus E11.9 Chronic diastolic CHF (congestive heart failure) I50.32 Hypothyroidism E03.9 Hypothyroidism type: unspecified GERD (gastroesophageal reflux disease) K21.9 Esophagitis presence: esophagitis presence not specified HLD (hyperlipidemia) E78.5 Hyperlipidemia type: unspecified HTN (hypertension) I10 Hypertension type: unspecified Chronic steroid use Chronic bronchitis J42 DVT prophylaxis Z29.9 (1) Hypothyroidism Hypothyroidism type: unspecified Qualified Code(s): E03.9 - Hypothyroidism, unspecified (2) GERD (gastroesophageal reflux disease) Esophagitis presence: esophagitis presence not specified Qualified Code(s): K21.9 - Gastro-esophageal reflux disease without esophagitis (3) HLD (hyperlipidemia) Hyperlipidemia type: unspecified Qualified Code(s): E78.5 - Hyperlipidemia, unspecified (4) HTN (hypertension) Hypertension type: unspecified Qualified Code(s): I10 - Essential (primary) hypertension
--- NOTE | 2020-06-08 18:24 | Cardiology Progress Note ---
Date of Service June 08, 2020 Assessment & Plan (1) Atrial flutter: 2. Fall with rib fractures/small hemothorax 3. Chronic diastolic heart failure 4. Ileus 5. Possible UTI 6. COPD/obstructive sleep apnea 7. Type 2 diabetes 8. Dementia/Frailty Remains in what appears to be atypical atrial flutter this morning. Slower overnight with periods of variable conduction. Today again asymptomatic with heart rates 110s to 120s. On exam appears well-perfused with mild pulmonary congestion Recorded I/Os 3 L over last 3 days, weight up 1.6 kg Resume anticoagulation with Eliquis when safe from a hemothorax standpoint Increase metoprolol to 37.5 twice daily Continue digoxin Resume home lasix 40mg today can stop PO amiodarone With atrial flutter is going to be difficult to rate control but would avoid attempts at electrical or chemical cardioversion while off anticoagulation. OK with current asymptomatic heart rates in the 110s. Consider diltiazem if worsened rate control. Will follow Admission and Anticipated Discharge Date Admission Date: June 03, 2020 Subjective Denies chest pain or shortness of breath. Denies palpitations. States that difficulty sleeping in part due to rib pain. Tolerating clear diet this morning and endorses improved appetite. Telemetry reviewedremains in atrial flutter, variable conduction overnight whi le sleeping, again 2-1 this morning heart rate 110s to 120s Review of Systems Review of Systems: All systems reviewed & are unremarkable except as noted in HPI & below Physical Exam Physical Exam: General: Comfortable, no acute distress HEENT: Sclerae anicteric, mucous membranes moist Lungs: Crackles at bases bilaterally Cardiac: Tachycardic, regular, no murmurs Abdomen: Soft, nontender, nondistended, positive bowel sounds. Extremities: Warm, well perfused, trace edema Skin: No rashes or lesions. Neuro: Nonfocal Psych: Alert and oriented Results & Data ([facility]) Vital Signs (Past 12 Hours) Vital Signs Temp Pulse Pulse Resp BP Pulse Ox 06/08/20 15:47 98.4 F 74 18 139/78 99 06/08/20 14:20 117 H 06/08/20 11:20 97.5 F L 118 H 18 116/82 94 06/08/20 09:38 118 H 06/08/20 07:28 97.5 F L 120 H 18 104/62 93 PG Care Time/CCT Total # of Minutes Spent Total Time Spent with Patient: Total time spent is greater than 50% in coordination of care (as documented) at patient's floor/unit and/or counseling patient: Coding Level of Care Code 90735 Subseq Hosp Care Lvl 3 Diagnoses Atrial flutter I48.92
--- NOTE | 2020-06-08 19:29 | XRay Report ---
XR chest 2V PA/lateral HISTORY: 80 years-old Male b/l rales; eval developing edema acute shortness of breath. Acute right-s ided rib fractures COMPARISON: Chest radiograph 06/07/2020, CTA chest 06/04/2020 TECHNIQUE: PA and lateral views of the chest FINDINGS: Moderate enlargement of the cardiac silhouette. Calcified plaque of the thoracic aortic arch. Clear l eft lung. No pneumothorax or overt pulmonary edema. Probable small right pleural effusion with pleura l reaction noted adjacent to the numerous acute and mildly displaced right-sided rib fractures. Degen erative changes of the shoulders and spine. IMPRESSION: 1. Cardiomegaly without overt pulmonary edema. 2. Numerous acute and mildly displaced right-sided rib fractures redemonstrated with trace right pleu ral effusion. 3. No pneumothorax. ACT 112: Negative or not required by law. The above report was generated using voice recognition software. It may contain grammatical, syntax o r spelling errors. Electronically signed by: Chris Quintanilla M.D. 06/08/2020 7:27 PM
[2020-06-09] MEDS: LEVOTHYROXINE SODIUM 75 MCG TABLET PO SCH (05:40)
[2020-06-09] MEDS: INSULIN ASPART 100 UNITS/ML 3 ML PEN SC SCH ×4 (08:01→21:24)
[2020-06-09] MEDS: INSULIN GLARGINE SOLOSTAR 100 UNITS/ML 3 ML PEN SC SCH (08:02)
[2020-06-09 08:14] LABS: BUN Creatinine Ratio 16.8 (10-20); Calcium 8.7 mg/dl (8.5-10.1); Creatinine Clr Calc Pharmacy 53.9 ml/min; Est GFR (African American) 67.6; Est GFR (Non-African American) 58.3; Potassium 3.8 mmol/L (3.5-5.1)
[2020-06-09] MEDS: AMIODARONE 200 MG TAB PO SCH (08:22)
[2020-06-09] MEDS: METOPROLOL TARTRATE 25 MG TAB PO SCH ×2 (08:23→21:23)
[2020-06-09] MEDS: PANTOprazole 40 MG TAB PO SCH (08:23)
[2020-06-09] MEDS: bisacodyL 10 MG SUPP PR SCH (08:23)
[2020-06-09] MEDS: DIGOXIN 0.125 MG TAB PO SCH (08:23)
[2020-06-09] MEDS: ESCITALOPRAM OXALATE 20 MG TAB PO SCH (08:24)
[2020-06-09] MEDS: FLUTICASONE FUROATE 100MCG 14 PUFFS/INHALER INH SCH (08:24)
[2020-06-09] MEDS: UMECLIDINIUM/VILANTEROL 62.5/25MCG 7 PUFFS/INHALER INH SCH (08:25)
--- NOTE | 2020-06-09 08:39 | Surgery Progress Note ---
Date of Service June 09, 2020 Assessment & Plan (1) Ileus: improving can advance diet as bernardino will sign off Admission and Anticipated Discharge Date Admission Date: June 03, 2020 Supervising Physician Co-Signing Physician Notes I personally saw and evaluated the patient with Aniket Castillo PA-C and agree with the assessment and plan. 80 yo male with improving ileus -Advance diet as tolerated -He is tolerating diet without nausea and having BM's -Will sign off at this time, please call back with any questions or concerns Subjective feels better, increasing flatus, tolerating full liquids Physical Exam Gastrointestinal (Abdomen): Inspection/Auscultation: abdomen not distended Percussion/Palpation: abdomen soft; abdomen nontender Results & Data ([facility]) Vital Signs (Past 12 Hours) Vital Signs Temp Pulse Pulse Resp BP Pulse Ox 06/09/20 08:23 120 H 06/09/20 08:08 36.7 C 95 H 18 113/71 95 06/09/20 03:57 36.4 C L 82 16 114/72 94 06/09/20 03:00 36.4 C L 82 16 114/72 94 06/09/20 00:00 36.5 C 79 16 121/70 94 06/08/20 23:57 83 PG Care Time/CCT Total # of Minutes Spent Total Time Spent with Patient: Total time spent is greater than 50% in coordination of care (as documented) at patient's floor/unit and/or counseling patient: Coding Level of Care Code 67129 Subseq Hosp Care Lvl 1 Diagnoses Ileus K56.7
[2020-06-09] MEDS: POLYETHYLENE (MIRALAX) 17 GM PACK PO SCH (08:44)
[2020-06-09] MEDS ORDERED: predniSONE 10 MG TABLET PO SCH (09:00)
[2020-06-09] MEDS: traMADol HCL 50 MG TABLET PO PRN ×2 (12:12→21:30)
--- NOTE | 2020-06-09 13:16 | Cardiology Progress Note ---
Date of Service June 09, 2020 Assessment & Plan (1) Atrial flutter: 2. Fall with rib fractures/small hemothorax 3. Chronic diastolic heart failure 4. Ileus 5. Possible UTI 6. COPD/obstructive sleep apnea 7. Type 2 diabetes 8. Dementia/Frailty Reasonably rate controlled atrial flutter with variable conduction/atrial fibrillation. On exam appears well-perfused with minimal pulmonary congestion Weight stable. Resume anticoagulation with Eliquis when safe from a hemothorax standpoint Increase metoprolol to 37.5 twice daily Continue digoxin. Check digoxin level tomorrow Resume home lasix 40mg today We will stop PO amiodarone With atrial flutter is going to be difficult to rate control but would avoid attempts at electrical or chemical cardioversion while off anticoagulation. OK with current asymptomatic heart rates in the 110s. From a cardiac standpoint okay with discharge when other medical issues stable Admission and Anticipated Discharge Date Admission Date: June 03, 2020 Subjective Feeling better today. Was up walking in the halls with his . Flank pain better. Tolerating liquid diet, having bowel movements. No chest pain, palpitations or significant shortness of breath. Telemetryremains in atrial fibrillation/flutter with variable conduction. Review of Systems Review of Systems: All systems reviewed & are unremarkable except as noted in HPI & below Physical Exam Physical Exam: General: Comfortable, no acute distress HEENT: Sclerae anicteric, mucous membranes moist Lungs: Crackles at bases bilaterally Cardiac: Tachycardic, irregular, no murmurs Abdomen: Soft, nontender, nondistended, positive bowel sounds. Extremities: Warm, well perfused, trace edema Skin: No rashes or lesions. Neuro: Nonfocal Psych: Alert and oriented Results & Data ([facility]) Vital Signs (Past 12 Hours) Vital Signs Temp Pulse Pulse Resp BP BP Pulse Ox 06/09/20 12:01 97.9 F 105 H 19 118/83 95 06/09/20 08:23 120 H 06/09/20 08:08 98.1 F 95 H 18 113/71 95 06/09/20 07:00 97 H 06/09/20 03:57 97.5 F L 82 16 114/72 94 06/09/20 03:00 97.5 F L 82 16 114/72 94 PG Care Time/CCT Total # of Minutes Spent Total Time Spent with Patient: Total time spent is greater than 50% in coordination of care (as documented) at patient's floor/unit and/or counseling patient: Coding Level of Care Code 65354 Subseq Hosp Care Lvl 3 Diagnoses Atrial flutter I48.92
--- NOTE | 2020-06-09 22:41 | Hospitalist Progress Note ---
Date of Service June 09, 2020 Assessment & Plan (1) Atrial flutter, paroxysmal: improving albeit slowly. appreciate cardiology consult & recs. cont metoprolol and digoxin for rate control. increase metoprolol to 37.5mg BID. check dig level in am. amiodarone to be stopped. at least for now need to hold xarelto due to right-sided hemothorax. if latter proves stable over several days with no signs of worsening then can resume xarelto then. cont telemetry. repeat labs am. (2) Multiple fractures of rib involving four or more ribs: right 4th - 9th fractures. lidoderm patches. tramadol prn. pulmonary toilet to prevent collapse/atelectasis. pain overall improved. holding xarelto. (3) Hemothorax on right: traumatic in face of xarelto use and multiple rib fractures. x-ray yesterday with stable hemothorax. H/H acceptable/stable. (4) Acute kidney injury: peak Cr 1.9 Cr 1.1 today repeat BMP am (5) UTI (urinary tract infection): pansens proteus change to keflex 500mg BID needs ALTA - r/o prostatitis (6) Ileus: likely combination of inciting factors -- pain meds, immobility due to pain, UTI, etc. surgery recs appreciated ileus slowly resolving will advance diet to low fiber in am (7) CKD (chronic kidney disease) stage 3, GFR 30-59 ml/min: baseline CrCl <60 regularly bmp am PATRICK improved/resolved (8) Type 2 diabetes mellitus: cont lantus 45 units am novolog correction & carb coverage (9) Chronic diastolic CHF (congestive heart failure): compensated (10) Hypothyroidism: TSH 04/2020 wnl cont levothyroxine as is (11) GERD (gastroesophageal reflux disease): PPI (12) HLD (hyperlipidemia): statin on hold for now (13) HTN (hypertension): BPs well controlled (14) Chronic steroid use: for COPD? give stress dose steroids today - give additional 20mg x 1 today; then additional 10mg tomorrow; then back to normal 10mg daily (15) Chronic bronchitis: per records cont usual inhalers (16) DVT prophylaxis: scds holding xarelto due to hemothorax PT, OT evals -- does patient need rehab? updated pt's by phone; questions answered Admission and Anticipated Discharge Date Admission Date: June 03, 2020 Subjective patient states "I do believe I'm feeling better today." less pain over right chest. no dyspnea. no substernal chest pain. abd distension improved - passing flatus and did have stools today. tolerating full liquids diet. no nausea/emesis. tele overnight - episodes of rapid afib; aflutter. rates are overall improved relative to past days. patient asks about d/c date. Review of Systems Constitutional: no fever Respiratory: no cough and no wheezing Cardiovascular: no chest pain and no edema Gastrointestinal: no abdominal pain Physical Exam Constitutional: + frail appearing; no acute distress and no altered mental status ENMT: external ear and nose normal, oropharynx normal Respiratory: Auscultation: + diminished lung sounds (Right base) and + crackles (B/l ) Cardiovascular: Rate/Rhythm: + tachycardic and + irregularly irregular Heart Sounds: normal S1 and normal S2; no murmur Vessels: posterior tibial pulses present and dorsalis pedis pulses present; no JVD Extremities: no edema Gastrointestinal (Abdomen): Inspection/Auscultation: + abdomen distended (modestly improved today ); + abnormal bowel sounds Percussion/Palpation: abdomen nontender and no hepatosplenomegaly Skin: + pallor Psychiatric: Orientation: alert and oriented x 3 Results & Data Results & Data ([facility]) Vital Signs (Past 12 Hours) Vital Signs Temp Pulse Pulse Resp BP BP Pulse Ox 06/09/20 19:15 36.6 C 116 H 19 119/82 94 06/09/20 15:13 36.5 C 79 19 146/78 H 95 06/09/20 14:30 114 H 06/09/20 12:01 36.6 C 105 H 19 118/83 95 Laboratory Results Laboratory Results - last 24 hr 06/09/20 06/09/20 06/09/20 07:08 07:25 11:22 Sodium 139 Potassium 3.8 Chloride 106 Carbon Dioxide 28 Anion Gap 5.0 BUN 20 H Creatinine 1.16 Est Cr Clr Drug Dosing 53.9 Est GFR ( Amer) 67.6 Est GFR (Non-Af Amer) 58.3 BUN/Creatinine Ratio 16.8 Glucose 88 POC Glucose 97 182 H Calcium 8.7 06/09/20 06/09/20 16:12 21:01 Sodium Potassium Chloride Carbon Dioxide Anion Gap BUN Creatinine Est Cr Clr Drug Dosing Est GFR ( Amer) Est GFR (Non-Af Amer) BUN/Creatinine Ratio Glucose POC Glucose 238 H 181 H Calcium PG Care Time/CCT Total # of Minutes Spent Total Time Spent with Patient: Total time spent is greater than 50% in coordination of care (as documented) at patient's floor/unit and/or counseling patient: Coding Level of Care Code 70667 Subseq Hosp Care Lvl 3 Diagnoses Atrial flutter, paroxysmal I48.92 Multiple fractures of rib involving four or more ribs S22.49XA Hemothorax on right J94.2 Acute kidney injury N17.9 UTI (urinary tract infection) N39.0 Ileus K56.7 CKD (chronic kidney disease) stage 3, GFR 30-59 ml/min N18.30 Type 2 diabetes mellitus E11.9 Chronic diastolic CHF (congestive heart failure) I50.32 Hypothyroidism E03.9 Hypothyroidism type: unspecified GERD (gastroesophageal reflux disease) K21.9 Esophagitis presence: esophagitis presence not specified HLD (hyperlipidemia) E78.5 Hyperlipidemia type: unspecified HTN (hypertension) I10 Hypertension type: unspecified Chronic steroid use Chronic bronchitis J42 DVT prophylaxis Z29.9 (1) HLD (hyperlipidemia) Hyperlipidemia type: unspecified Qualified Code(s): E78.5 - Hyperlipidemia, unspecified (2) Hypothyroidism Hypothyroidism type: unspecified Qualified Code(s): E03.9 - Hypothyroidism, unspecified (3) GERD (gastroesophageal reflux disease) Esophagitis presence: esophagitis presence not specified Qualified Code(s): K21.9 - Gastro-esophageal reflux disease without esophagitis (4) HTN (hypertension) Hypertension type: unspecified Qualified Code(s): I10 - Essential (primary) hypertension
[2020-06-10] MEDS: LEVOTHYROXINE SODIUM 75 MCG TABLET PO SCH (06:28)
[2020-06-10 07:14] LABS: BUN Creatinine Ratio 15.1 (10-20); Calcium 8.7 mg/dl (8.5-10.1); Creatinine Clr Calc Pharmacy 56.3 ml/min; Est GFR (African American) 71.3; Est GFR (Non-African American) 61.5; Potassium 3.9 mmol/L (3.5-5.1)
[2020-06-10] MEDS: INSULIN ASPART 100 UNITS/ML 3 ML PEN SC SCH ×4 (08:23→20:58)
[2020-06-10] MEDS: INSULIN GLARGINE SOLOSTAR 100 UNITS/ML 3 ML PEN SC SCH (08:24)
[2020-06-10] MEDS: POLYETHYLENE (MIRALAX) 17 GM PACK PO SCH (08:29)
[2020-06-10] MEDS: LIDOCAINE 5% 1 PATCH TD SCH (08:30)
[2020-06-10] MEDS: METOPROLOL TARTRATE 25 MG TAB PO SCH ×2 (08:31→20:57)
[2020-06-10] MEDS: UMECLIDINIUM/VILANTEROL 62.5/25MCG 7 PUFFS/INHALER INH SCH (08:32)
[2020-06-10] MEDS: DIGOXIN 0.125 MG TAB PO SCH (08:32)
[2020-06-10] MEDS: FLUTICASONE FUROATE 100MCG 14 PUFFS/INHALER INH SCH (08:32)
[2020-06-10] MEDS: FUROSEMIDE 40 MG TAB PO SCH (08:33)
[2020-06-10] MEDS: PANTOprazole 40 MG TAB PO SCH (08:33)
[2020-06-10] MEDS: ESCITALOPRAM OXALATE 20 MG TAB PO SCH (08:34)
[2020-06-10] MEDS ORDERED: predniSONE 20 MG TAB PO SCH (09:00)
[2020-06-10] MEDS: cephALEXin 500 MG CAP PO SCH ×2 (09:44→20:58)
--- NOTE | 2020-06-10 23:19 | Hospitalist Progress Note ---
Date of Service June 10, 2020 Assessment & Plan (1) Atrial flutter, paroxysmal: controlled. appreciate cardiology consult & recs. cont metoprolol and digoxin for rate control. increase metoprolol to 37.5mg BID. dig level acceptable. amiodarone stopped due to lack of efficacy. spoke with pulmonary -- hold xarelto due to right-sided hemothorax until Sunday of next week. repeat cxr in 1 week post-d/c. . cont telemetry. repeat labs am. (2) Multiple fractures of rib involving four or more ribs: pain improved. right 4th - 9th fractures. lidoderm patches. tramadol prn. pulmonary toilet to prevent collapse/atelectasis. pain overall improved. holding xarelto. (3) Hemothorax on right: traumatic in face of xarelto use and multiple rib fractures. H/H acceptable/stable. repeat cbc am. cxr 1 week post-d/c. hold xarelto until sunday of next week. o2 sats in RA wnl. (4) Acute kidney injury: peak Cr 1.9 Cr 1.1 once again today repeat BMP am (5) UTI (urinary tract infection): pansens proteus change to keflex 500mg BID needs ALTA - r/o prostatitis (6) Ileus: likely combination of inciting factors -- pain meds, immobility due to pain, UTI, etc. surgery recs appreciated resolved diet advanced to low fiber today and tolerating thus far (7) CKD (chronic kidney disease) stage 3, GFR 30-59 ml/min: baseline CrCl <60 regularly bmp am PATRICK resolved (8) Type 2 diabetes mellitus: cont lantus 45 units am novolog correction & carb coverage controlled (9) Chronic diastolic CHF (congestive heart failure): compensated (10) Hypothyroidism: TSH 04/2020 wnl cont levothyroxine as is (11) GERD (gastroesophageal reflux disease): PPI (12) HLD (hyperlipidemia): statin on hold for now (13) HTN (hypertension): BPs well controlled (14) Chronic steroid use: give stress dose steroids today - give additional 10mg x 1 today; then back to normal 10mg daily tomorrow (15) Chronic bronchitis: per records cont usual inhalers stable/controlled (16) DVT prophylaxis: scds holding xarelto due to hemothorax PT, OT evals appreciated; cleared for home updated pt's by phone; questions answered anticipate d/c in am Admission and Anticipated Discharge Date Admission Date: June 03, 2020 Subjective patient was sleeping soundly upon my arrival. easily awoke. reports feeling good. right chest wall pain is for the most part controlled. no significant pleuritic pain. no dyspnea. no orthopnea. abd distension resolving. tolerating low fiber diet. no nausea or emesis. passing stool. tele overnight - afib/flutter but rates mostly <100 Review of Systems Constitutional: no fever and no chills Respiratory: no cough Cardiovascular: no chest pain Gastrointestinal: no abdominal pain, no bloating, no nausea and no vomiting Physical Exam Constitutional: no acute distress and no altered mental status ENMT: external ear and nose normal, oropharynx normal Respiratory: Auscultation: + diminished lung sounds (Right base) and + crackl es (B/l ) Cardiovascular: Rate/Rhythm: regular rate and + irregularly irregular Heart Sounds: normal S1 and normal S2; no murmur Vessels: posterior tibial pulses present and dorsalis pedis pulses present; no JVD Extremities: no edema Gastrointestinal (Abdomen): Inspection/Auscultation: + abdomen distended (Nearly resolved) and normal bowel sounds Percussion/Palpation: abdomen nontender and no hepatosplenomegaly Skin: + pallor Psychiatric: Orientation: alert and oriented x 3 Results & Data Results & Data ([facility]) Vital Signs (Past 12 Hours) Vital Signs Temp Pulse Resp BP BP Pulse Ox 06/10/20 23:13 36.5 C 64 20 126/68 98 06/10/20 19:04 36.5 C 79 20 121/70 95 06/10/20 15:08 36.8 C 63 17 117/72 95 06/10/20 11:33 36.3 C L 60 16 134/73 96 Laboratory Results Laboratory Results - last 24 hr 06/10/20 06/10/20 06/10/20 06:05 06:05 07:34 Sodium 142 Potassium 3.9 Chloride 108 H Carbon Dioxide 30 Anion Gap 4.0 BUN 17 Creatinine 1.11 Est Cr Clr Drug Dosing 56.3 Est GFR ( Amer) 71.3 Est GFR (Non-Af Amer) 61.5 BUN/Creatinine Ratio 15.1 Glucose 57 L POC Glucose 99 Calcium 8.7 Digoxin 0.9 06/10/20 06/10/20 06/10/20 11:17 16:17 20:34 Sodium Potassium Chloride Carbon Dioxide Anion Gap BUN Creatinine Est Cr Clr Drug Dosing Est GFR ( Amer) Est GFR (Non-Af Amer) BUN/Creatinine Ratio Glucose POC Glucose 228 H 199 H 195 H Calcium Digoxin PG Care Time/CCT Total # of Minutes Spent Total Time Spent with Patient: Total time spent is greater than 50% in coordination of care (as documented) at patient's floor/unit and/or counseling patient: Coding Level of Care Code 89323 Subseq Hosp Care Lvl 2 Diagnoses Atrial flutter, paroxysmal I48.92 Multiple fractures of rib involving four or more ribs S22.49XA Hemothorax on right J94.2 Acute kidney injury N17.9 UTI (urinary tract infection) N39.0 Ileus K56.7 CKD (chronic kidney disease) stage 3, GFR 30-59 ml/min N18.30 Type 2 diabetes mellitus E11.9 Chronic diastolic CHF (congestive heart failure) I50.32 Hypothyroidism E03.9 Hypothyroidism type: unspecified GERD (gastroesophageal reflux disease) K21.9 Esophagitis presence: esophagitis presence not specified HLD (hyperlipidemia) E78.5 Hyperlipidemia type: unspecified HTN (hypertension) I10 Hypertension type: unspecified Chronic steroid use Chronic bronchitis J42 DVT prophylaxis Z29.9 (1) HLD (hyperlipidemia) Hyperlipidemia type: unspecified Qualified Code(s): E78.5 - Hyperlipidemia, unspecified (2) Hypothyroidism Hypothyroidism type: unspecified Qualified Code(s): E03.9 - Hypothyroidism, unspecified (3) GERD (gastroesophageal reflux disease) Esophagitis presence: esophagitis presence not specified Qualified Code(s): K21.9 - Gastro-esophageal reflux disease without esophagitis (4) HTN (hypertension) Hypertension type: unspecified Qualified Code(s): I10 - Essential (primary) hypertension
[2020-06-11 06:13] LABS: Hematocrit (blood only) 36.1 % (42-52); Hemoglobin 11.2 g/dL (14.0-18.0); Mean Corpuscular Volume 96.8 fL (80-100); Mean Platelet Volume 9.8 fL (7.4-10.4); Nucleated RBC # (auto) 0.04 K/uL (0-0); Nucleated RBC % (auto) 0.3 %; Platelet Count 329 K/uL (130-400); RDW Coefficient of Variation 15.4 % (11.5-14.5); RDW Standard Deviation 52.8 fL (36.4-46.3); Red Blood Count 3.73 M/uL (4.7-6.1); White Blood Count 14.91 K/uL (4.8-10.8)
[2020-06-11] MEDS: LEVOTHYROXINE SODIUM 75 MCG TABLET PO SCH (06:30)
[2020-06-11 06:41] LABS: BUN Creatinine Ratio 14.5 (10-20); Calcium 8.4 mg/dl (8.5-10.1); Creatinine Clr Calc Pharmacy 39.8 ml/min; Est GFR (African American) 46.9; Est GFR (Non-African American) 40.4; Potassium 4.2 mmol/L (3.5-5.1)
[2020-06-11] MEDS ORDERED: predniSONE 10 MG TABLET PO SCH (09:00)
[2020-06-11] MEDS: ESCITALOPRAM OXALATE 20 MG TAB PO SCH (09:33)
[2020-06-11] MEDS: FUROSEMIDE 40 MG TAB PO SCH (09:33)
[2020-06-11] MEDS: PANTOprazole 40 MG TAB PO SCH (09:33)
[2020-06-11] MEDS: METOPROLOL TARTRATE 25 MG TAB PO SCH (09:34)
[2020-06-11] MEDS: cephALEXin 500 MG CAP PO SCH (09:34)
[2020-06-11] MEDS: INSULIN ASPART 100 UNITS/ML 3 ML PEN SC SCH ×2 (09:35→12:45)
[2020-06-11] MEDS: FLUTICASONE FUROATE 100MCG 14 PUFFS/INHALER INH SCH (09:35)
[2020-06-11] MEDS: INSULIN GLARGINE SOLOSTAR 100 UNITS/ML 3 ML PEN SC SCH (09:35)
[2020-06-11] MEDS: DIGOXIN 0.125 MG TAB PO SCH (09:36)
[2020-06-11] MEDS: LIDOCAINE 5% 1 PATCH TD SCH (09:37)
[2020-06-11] MEDS: POLYETHYLENE (MIRALAX) 17 GM PACK PO SCH (09:37)
--- NOTE | 2020-06-11 09:50 | Cardiology Progress Note ---
Date of Service June 11, 2020 Assessment & Plan (1) Atrial flutter, paroxysmal: 2. S/P fall with rib fractures and small hemothorax 3. UTI 4. Ileus 5. Chronic diastolic CHF 6. COPD 7. Type 2 diabetes 8. Dementia/Frailty He spontaneously converted to sinus rhythm at 5:10 am this morning. Prior to that, his rate in atrial flutter was well controlled in the 60s-70s. His sinus rate is currently controlled in the 60s. Recommend continuing rate control strategy with metoprolol tartrate 37.5 mg BID and digoxin 0.125 mg daily. Remain off amiodarone. Recommend replacing Xarelto with Eliquis when safe to resume anticoagulation therapy from a hemothorax standpoint. His BUN and creatinine did rise overnight; recommend using Lasix on an as needed basis moving forward. Will continue to follow. Admission and Anticipated Discharge Date Admission Date: June 03, 2020 Subjective He reports some right shoulder pain this morning, but otherwise he has been feeling well. He has been eating and drinking normally. He denies any chest pain or shortness of breath. He denies any significant lower extremity edema currently. He has not noted any lightheadedness. He denies abnormal bleeding such as melena, hematochezia, or hematuria. Review of Systems Review of Systems: All systems reviewed & are unremarkable except as noted in Subjective Physical Exam Physical Exam: Constitutional: Alert, oriented, in no acute distress HEENT: Head is atraumatic and normocephalic. EOMs intact. Sclera non-icteric. Face is symmetric. No perioral cyanosis. Mucous membranes moist Neck: Supple, no JVD Pulmonary: Normal respiratory effort, bibasilar crackles, otherwise clear to auscultation throughout Cardiac: Regular rate and rhythm, normal S1 and S2, no gallops, no rubs, 1/6 systolic murmur Extremities: Trace lower extremity edema bilaterally. No clubbing or cyanosis. Pulses intact Abdomen: Normal bowel sounds, soft, non-tender, no abdominal masses palpated Skin: Normal skin color, turgor, and pigmentation. No rash or skin lesions Neurological: Oriented to person, place, and time Results & Data ([facility]) Vital Signs (Past 12 Hours) Vital Signs Temp Pulse Resp BP BP Pulse Ox 06/11/20 07:56 97.7 F 64 18 111/64 97 06/11/20 03:00 97.7 F 52 L 18 150/71 H 99 06/10/20 23:13 97.7 F 64 20 126/68 98 Diagnostic Findings Telemetry monitoring: He converted to sinus rhythm this morning at 5:10 am. Prior to that, his rate was well controlled in the 60s-70s. His sinus rate is currently in the low 60s. PG Care Time/CCT Total # of Minutes Spent Total Time Spent with Patient: Total time spent is greater than 50% in coordination of care (as documented) at patient's floor/unit and/or counseling patient: Coding Level of Care Code 93593 Subseq Hosp Care Lvl 3 Diagnoses Atrial flutter, paroxysmal I48.92
[2020-06-11] MEDS: UMECLIDINIUM/VILANTEROL 62.5/25MCG 7 PUFFS/INHALER INH SCH (11:39)
--- NOTE | 2020-06-11 13:11 | Discharge Summary ---
Date of Service date of admission - June 01, 2020 date of discharge - June 11, 2020 Admission HPI Per Admitting Provider Maninder Gibson is a 89-year-old male who presents from home after falling last night while getting up to walk to the bathroom. He uses a cane to walk and thinks it slipped out from underneath him to close his fall. Unwitnessed by his but does not think he lost consciousness at any point. The patient remembers falling to the ground. No chest pain, shortness of breath or dizziness prior to falling. Significant right-sided chest pain and right shoulder pain after falling. He was last admitted here in April due to weakness, fatigue, pain, poor appetite, short-term memory loss and general failure to thrive. On that occasion physical therapy recommended discharging to home with home therapy which she has been getting. He has had multiple previous hospitalizations with similar presentations over the past 1 to 2 years. On prior occasions he has been diagnosed with a GI bleed requiring blood/iron transfusions, diastolic congestive heart failure, PNA, COPD exacerbation and atrial flutter with rapid ventricular rates. He had a prior myocardial perfusion scan in May 2019 suggestive of inferior ischemia however follow-up with cardiology given patient comorbidities and lack of symptoms at current activity levels recommended avoiding further invasive testing at that time. No significant acute change in his generalized weakness. No lateralizing extremity weakness on one side. No change in speech, vision, hearing. In the ER he had extensive imaging most concerning for multiple acute right- sided rib fractures 4-7th ribs with tiny right hemothorax. This correlates with his pain on the right side. He denies any additional injuries at this time, and otherwise feels at his baseline. Principal Diagnosis fall with resulting right-sided rib fractures and tiny right-sided hemothorax Discharge Exam Constitutional no acute distress and no altered mental status ENMT external ear and nose normal, oropharynx normal Respiratory Auscultation: + diminished lung sounds (Right base) and + crackles (B/l ) Cardiovascular Rate/Rhythm: regular rate and regular rhythm Heart Sounds: normal S1 and normal S2; no murmur Vessels: posterior tibial pulses present and dorsalis pedis pulses present; no JVD Extremities: no edema Gastrointestinal (Abdomen) Inspection/Auscultation: + abdomen distended (Nearly resolved) and normal bowel sounds Percussion/Palpation: abdomen nontender and no hepatosplenomegaly Skin + pallor Psychiatric Orientation: alert and oriented x 3 Discharge Data Allergies Allergy/AdvReac Type Severity Reaction Status Date / Time moxifloxacin Allergy Severe throat Verified 06/17/20 08:24 swelling ofloxacin Allergy Severe SWELLING Verified 06/17/20 08:24 AROUND FACE Quinolones Allergy Severe ANAPHYLAXIS Verified 06/17/20 08:24 formoterol Allergy Intermediate RASH Verified 06/17/20 08:24 Sulfa (Sulfonamide Allergy Intermediate severe red Verified 06/17/20 08:24 Antibiotics) rash Consultations [facility] Cardiology [facility] General Surgery PT, OT Ordered Studies 06/01/20 12:25 CT abd pelvis IV con only Stat IMPRESSION: 1. No evidence of acute abdominal or pelvic injury 2. Nonspecific subcentimeter lytic foci within the ribs CT cervical spine wo con Stat - no acute fractures. CT chest w con Stat IMPRESSION: 1. No evidence for traumatic injury to the thoracic aorta. 2. Acute fractures of the lateral right fourth through seventh ribs and the posterior right fifth and sixth ribs. Lateral right fifth rib fracture mildly displaced. Tiny right hemothorax. No pneumothorax. CT head/brain wo con Stat - no fracture, no ICH. CT lumbar spine wo con Stat - IMPRESSION: 1. No acute fractures within the thoracic or lumbar spine. 2. Nondisplaced right posterior third through sixth rib fractures. 3. Trace right pleural effusion. CT thoracic spine wo con Stat - no thoracic spine fractures. 06/04/20 09:28 CT angio chest PE protocol Urgent - IMPRESSION: 1. No pulmonary emboli identified. 2. Acute fractures of the lateral right fourth through ninth ribs, several of which are mildly displaced. Nondisplaced fractures of the posterior right fourth through sixth ribs. No pneumothorax. No significant change in a small right hemo thorax and a small amount of extrapleural hemorrhage. 3. Linear and groundglass opacities within lungs favor atelectasis. No consolidation to suggest pneumonia. 06/04/20 19:15 CT abd pelvis wo con Stat - IMPRESSION: 1. There is mild gaseous distention of the small bowel loops with no evidence of obstruction. Gas and stool are seen within the colon and this likely represents ileus. No transition point is identified. 2. Right-sided rib fractures and trace hemothorax is above. This is unchanged from previous. 3. There is no evidence of solid organ injury in the abdomen or pelvis on this unenhanced examination. 4. Status post prostatectomy. 5. The appearance of the bladder is consistent with chronic outlet obstruction. 6. Trace nonspecific free fluid is seen in the pelvis and may be related to hydration status. Clinical correlation will be required. Hospital Course (1) Multiple fractures of rib involving four or more ribs: 2nd to fall. right 4th - 9th rib fractures with some mildly displaced. lidoderm patches, tramadol used prn for pain. pain improved during the course of his stay. did not require oxygen in the days leading up to discharge. rib fractures complicated by tiny/small right-sided hemothorax. serial x-rays did not show significant worsening of the hemothorax. anticoagulation was held his entire visit. he will need repeat chest x-ray in about 1 week post-discharge to ensure stability of hemothorax. of note -- 25-OH vitamin D level in December 2019 was wnl. (2) Atrial flutter, paroxysmal: While on telemetry patient had multiple runs of rapid a.fib or rapid a.flutter. Seen by [facility] for this issue. They provided pleitez recommendations for his care. 1. amiodarone stopped due to lack of efficacy. 2. loaded with IV digoxin then transitioned to oral digoxin with digoxin level satisfactory. 3. initiation of metoprolol with titration to 37.5mg BID. Due to right-sided hemothorax Xarelto was held the entire hospitalization. Cardiology advised that when anticoagulation was resumed as outpatient he should start eliquis in mckenna of xarelto. He will need f/u with his PCP and cardiology for these issues. (3) Hemothorax on right: traumatic in face of xarelto use and multiple rib fractures. H/H acceptable/stable during the visit with discharge Hb 11.2. Recommendations: 1. Chest x-ray 1 week post-d/c. 2. Hold Anticoagulation until SundayJune 14. Resume with eliquis in mckenna of xarelto as recommended by cardiology. o2 sats in RA wnl. (4) Acute kidney injury: peak Cr 1.9 Cr 1.5 on day of discharge cardiology recommended to use lasix on PRN basis rather than scheuled he will need repeat BMP as outpatient to ensure stability of creatinine (5) UTI (urinary tract infection): pansensitive proteus, received IV antibiotics and ultimately changed to keflex 500mg BID at discharge. ALTA deferred as patient does not have a prostate. (6) Ileus: likely combination of inciting factors -- pain meds, immobility due to pain, UTI, etc. seen by general surgery - conservative measures recommended. diet was restricted for a period of time, and ultimately resumed/advanced as tolerated. prior to discharge abdominal distension was markedly improved, and he was passing flatus/stool. (7) CKD (chronic kidney disease) stage 3, GFR 30-59 ml/min: baseline CrCl <60 regularly superimposed PATRICK during the stay discharge Cr 1.5 (8) Type 2 diabetes mellitus: cont lantus 45 units am resume metformin at discharge STOP glimeperide in setting of CKD and risk of hypoglycemia (9) Chronic diastolic CHF (congestive heart failure): compensated during the visit (10) Hypothyroidism: TSH 04/2020 wnl cont levothyroxine (11) GERD (gastroesophageal reflux disease): PPI (12) HLD (hyperlipidemia): continue simvastatin (13) HTN (hypertension): BPs well controlled during the visit (14) Chronic steroid use: for chronic bronchitis received small amount of oral stress dose steroids will resume normal prednisone amount of 10mg/day at discharge (15) Chronic bronchitis: per records cont usual inhalers stable/controlled resume prednisone 10mg/day as previous (16) Fall: with resulting multiple right-sided rib fractures and tiny right-sided hemothorax. seen by PT/OT - cleared for home with . patient claims the fall prior to this admission was an isolated event. (17) Obstructive sleep apnea: continue HS NC O2. (18) Lytic lesion of bone on x-ray: seen incidentally on CT at admission. several lytic lesions in ribs. CONSIDER multiple myeloma work-up with SPEP/UPEP/immunofixation as outpatient. Total Time Total Time Spent Total Time Spent (In Minutes): 50 Total Time Includes: Examination of the Patient, Discharge Planning, Medication Reconciliation and Communication With Other Providers Discharge Plan Discharge Items Patient Disposition: Home - Home Health Services Reason For Visit: MULTIPLE RIB FRACTURES Discharge Diagnosis: 1. multiple right-sided rib fractures due to fall 2. atrial fibrillation / atrial flutter 3. tiny collection of blood in right lung due to fall with rib fractures - stable 4. ileus - resolved 5. urinary tract infection - resolving Activity: As commented below Activity Comment: gradually increase activities over the next 5 days Non-emergency contact: Primary Care Provider and Bridge Painter Call non-emergency contact if: you have any medication questions, your symptoms worsen, your pain is not controlled, your pain is worsening and you have a fever Follow-up/Referrals: Howard Gunderson MD [Primary Care Provider] - 06/16/20 10:00 am (see Dr Gunderson in 1 week) Howard Hwang MD [Physician] - 06/22/20 10:00 am (see Dr Hwang in 2 weeks ) Diet: Carb Consistent or DM2, Heart Healthy and Low Fiber Addtl Attending Provider Instructions: Mr Gibson, You were treated for the problems listed above in "discharge diagnoses." We treated your UTI (urinary infection) with antibiotics. We treated your rib fractures with pain medication and lidoderm patches. Your a.fib / a.flutter was treated with various heart medications. Dr Hwang from cardiology saw you and provided assistance with treatment of the a.fib/flutter. We had to STOP your xarelto blood thinner because you had a small amount of blood in the right chest cavity due to trauma from the fall and rib fractures. Recommendations: 1. STOP your xarelto completely. 2. STOP your amiodarone. 3. STOP your glimepiride for your diabetes. 4. For your a.fib/flutter please START: * digoxin 0.125mg EVERY morning; first dose on 06/12/20 * metoprolol 37.5mg twice daily every day; first dose TONIGHT 5. Blood thinner - Dr Hwang wants to change your blood thinner to ELIQUIS. Again please STOP the xarelto. A new prescription for the eliquis was sent to [facility]. START the eliquis on 06/14/20. The eliquis is twice a day. Again start the eliquis on 06/14/20. 6. urinary infection - cephalexin 500mg twice daily for 3 more days, first dose TONIGHT. 7. for right rib pain -- * tramadol 50mg every 6 hours as needed for pain; caution - this medication can make you drowsy * lidoderm patches -- up to 3 at a time to areas of pain on your chest; leave on for 12 hours, remove for 12 hours * if the lidoderm is too expensive via the pharmacy then purchase [id number] SALONPAS 8. you will need a repeat chest x-ray with your family doctor in [address] Hwang has asked that you take your lasix water pill on an NEEDED BASIS. Only take the lasix (furosemide) if you gain more than 2-3 pounds over a 1-2 day period (the weight gain is a sign of fluid retention). Again only take NEEDED. 10. LOW FIBER diet for 10 days. See hand-out. Follow-up - see separate section Return to [facility] if - * you have uncontrolled rib pain * you have fever over 100 degrees * you have worsening shortness of breath * you are dizzy or lightheaded * you have difficulty having a bowel movement or you are not passing gas from your rectum * any other concerns Pending Studies at Discharge: No Stand-Alone Forms: My [facility], Smoking Cessation Medications and DC Order Prescriptions: New lidocaine 5 % Adhesive Patch,Medicated 3 patch transdermal QAM Qty: 60 RF: 0 tramadol 50 mg tablet 50 mg PO Q6H PRN (Reason: pain) Qty: 20 RF: 0 digoxin [Digox] 125 mcg (0.125 mg) tablet 125 mcg PO DAILY Qty: 30 RF: 2 metoprolol tartrate 37.5 mg tablet 37.5 mg PO BID Qty: 60 RF: 2 Eliquis 5 mg tablet 5 mg PO BID Qty: 60 RF: 5 Continued albuterol sulfate 2.5 mg /3 mL (0.083 %) solution for nebulization 2.5 mg INH Q4H PRN (Reason: shortness of breath or wheezing) Qty: 360 RF: 5 [id number] [Trelegy Ellipta] 100-62.5-25 mcg blister with device 1 inh inhalation QAM RF: 0 simvastatin 80 mg tablet 40 mg PO HS Qty: 90 RF: 3 (DME) Lift Chair Misc See Rx Instructions .ROUTE .MEDSUPPLY Qty: 1 RF: 0 (DME) Lift Chair Misc See Rx Instructions .ROUTE .MEDSUPPLY Qty: 1 RF: 0 metformin 1,000 mg tablet 1,000 mg PO BID Qty: 180 RF: 3 magnesium oxide 500 mg tablet 500 mg PO BID RF: 0 albuterol sulfate 90 mcg/actuation HFA aerosol inhaler 2 puffs INH Q4H PRN (Reason: Shortness Of Breath) Qty: 8.5 RF: 11 escitalopram oxalate 20 mg tablet 20 mg PO QAM Qty: 90 RF: 3 levothyroxine 75 mcg capsule 75 mcg PO Q OTHER DAY RF: 0 multivitamin with minerals [Multiple Vitamin-Minerals] Tablet 1 tab PO QAM RF: 0 omeprazole 40 mg capsule,delayed release(DR/EC) 40 mg PO QAM RF: 0 ferrous sulfate 325 mg (65 mg iron) tablet,delayed release (DR/EC) 325 mg PO HS RF: 0 cyanocobalamin (vitamin B-12) [Vitamin B-12] 500 mcg Tablet 500 mcg PO HS RF: 0 ascorbic acid (vitamin C) [Vitamin C] 500 mg Tablet 500 mg PO QAM RF: 0 Lantus Solostar U-100 Insulin 100 unit/mL (3 mL) insulin pen 45 unit SC QAM RF: 0 Changed furosemide 20 mg tablet 40 mg PO DAILY PRN (Reason: weight gain of >2-3 pounds 1-2 days) Qty: 30 RF: 0 Discontinued amiodarone 200 mg tablet 200 mg PO QAM 90 Days Qty: 90 RF: 3 glimepiride 2 mg tablet 2 mg PO QAM RF: 0 Xarelto 20 mg tablet 20 mg PO HS RF: 0 No Action (DME) lancets [Microlet Lancet] Misc See Rx Instructions .ROUTE .MEDSUPPLY Qty: 100 RF: 5 tramadol [Ultram] 50 mg tablet 50 mg PO Q6H PRN (Reason: pain) Qty: 30 RF: 0 Discharge Orders: Discharge Order (Routine); Ordered 06/11/20 Ordered By: Tarik Hoff/Other Patient Handouts: Ileus, Low-Fiber Diet, Managing Type 2 Diabetes, ED Rib Fracture Admission Data Admit Date/Time: 06/03/20 17:17 Attending Provider: Tarik Garcia Admit Provider: Luis F Desouza Primary Care Provider: Howard Gunderson Other Providers: Luis F Desouza ; [facility] ; [facility] ; [place] ; Tarik Lindquist ; Matias Lamas ; Jose Rose. Other Interventions: Discharge Summary Assessment (RN) Last Done: 06/11/20 13:35 Coding Level of Care Code D/C Day Management >30 mins Diagnoses Multiple fractures of rib involving four or more ribs S22.49XA Atrial flutter, paroxysmal I48.92 Hemothorax on right J94.2 Acute kidney injury N17.9 UTI (urinary tract infection) N39.0 Ileus K56.7 CKD (chronic kidney disease) stage 3, GFR 30-59 ml/min N18.30 Type 2 diabetes mellitus E11.9 Chronic diastolic CHF (congestive heart failure) I50.32 Hypothyroidism E03.9 Hypothyroidism type: unspecified GERD (gastroesophageal reflux disease) K21.9 Esophagitis presence: esophagitis presence not specified HLD (hyperlipidemia) E78.5 Hyperlipidemia type: unspecified HTN (hypertension) I10 Hypertension type: unspecified Chronic steroid use Chronic bronchitis J42 Fall W19.XXXA Encounter type: initial encounter Obstructive sleep apnea G47.33 Lytic lesion of bone on x-ray M89.9
== END 2020-06-11 14:28 | disposition home health service (06) | DRG 183 ==
LOC: 3N 12:03 → ED 12:03 → SUATTDRO 16:22 → 3N 18:18 → SUATTDRO 06-03 17:17 → 2S 06-04 19:39

== ENCOUNTER 2020-06-18 12:22 | Inpatient (IN) ==
[2020-06-18] MEDS ORDERED: ONDANSETRON INJ 2 MG/ML 2 ML VIAL IV STA (12:42)
[2020-06-18] MEDS ORDERED: fentaNYL citrate 100 MCG/2 ML VIAL IV PRN (12:42)
[2020-06-18] MEDS ORDERED: SODIUM CHLORIDE 0.9% 500 ML IV SCH (12:45)
--- NOTE | 2020-06-18 12:50 | Emergency Department Note ---
Impression & Plan Fracture of multiple ribs of both sides, Pneumothorax, Hematoma of left thigh, Anemia, Acute kidney injury ED Provider Note NAME: ALAYNA LATHAM AGE: 80 SEX: M : 1940 ARRIVES VIA: Ambulance INFORMANT: Patient, prehospital personnel ED PROVIDER(S): Mohit Charles DO CHIEF COMPLAINT: Fall HPI: The patient is an 80-year-old male who presented to the emergency department from home for an evaluation after a fall. The patient apparently has a history of frequent falls. He was seen in our facility multiple times over the last few months. He was seen most recently yesterday and diagnosed with bilateral rib fractures. The patient had multiple rib fractures but was able to be discharged to home. He presents to the emergency department today after home health found the patient to be lethargic and having severe difficulty breathing and chest pain. The patient himself states he has significant pain especially in the right flank. He was also found of a very large left thigh hematoma. The patient denies having any rectal bleeding. He denies having any abdominal pain. He denies having any neck pain. The patient was evaluated by a specialty development consultant in the emergency department yesterday prior to discharge. Apparently the patient's work-up also showed a small pneumothorax. The patient states his pain is moderate to severe especially with any movement or deep breathing. ROS: See above HPI for pertinent positives & negatives. A total of 10 systems reviewed and were otherwise negative. PAST MEDICAL HISTORY: See Below PAST SURGICAL HISTORY: See Below FAMILY HISTORY: See Below SOCIAL HISTORY: See Below HOME MEDICATIONS: See Below ALLERGIES: See Below VITALS: See Below PHYSICAL EXAMINATION: GENERAL: The patient is listless and slow to respond to questioning. He appears to be in significant pain. EYES: The conjunctivae are clear. The pupils are round and reactive. EARS, NOSE, MOUTH AND THROAT: The nose is without any evidence of any deformity. Mucous members are dry. NECK: The neck is nontender and supple. RESPIRATORY: Shallow respirations were noted. Diminished breath sounds are noted throughout. There is palpable tenderness over both lateral rib cages. No crepitus was appreciated. CARDIOVASCULAR: Regular rate and rhythm noted there no murmurs rubs or gallops normal S1 normal S2. GASTROINTESTINAL: The abdomen is moderately distended. There is no specific guarding rigidity appreciated. BACK: No midline tenderness or or step-off noted range of motion in flexion extension as well as rotation no signs of muscle spasm noted MUSCULOSKELETAL/EXTREMITIES: There is significant ecchymosis and swelling over the left lateral thigh. There is pain with range of motion testing. SKIN: There is no obvious evidence of any rash. Trace pedal edema was noted bilaterally. Skin was mottled. NEUROLOGIC: Patient is oriented to person place and situation. Strength was sy mmetric but diminished. MEDICAL DECISION MAKING: The patient is an 80-year-old male who presented to the emergency department at the request of home health. The patient has been experiencing very significant episodes of falling recently. The patient has fallen as recently as yesterday and was seen in our facility for these falls. The patient was found have multiple rib fractures and a small pneumothorax. He was able to go home but presents back because of worsening in his mental status. The patient also developed a very large hematoma on his lateral thigh. I do feel this is the cause the patient's anemia. A repeat of some of his studies were done in the emergency department today to ensure there is no intra-abdominal or intrathoracic bleeding. I discussed the patient's laboratory and radiographic studies with him. He was treated with pain medication. I discussed his case with the on-call [facility] hospitalist. Given his findings I do not feel he would do well at home again. His was also consulted about the patient's condition. The emergency department corrections caseworker called the patient's and she does agree that he does not appear to be doing well at home. Triage Nursing notes reviewed. Prior medical records reviewed Vital Signs: reviewed and remarkable for hypertension and tachypnea. Differential diagnosis: Fracture, dislocation, contusion, intra-abdominal, pneumothorax, intrathoracic, intracranial, neurologic, compartment syndrome, rhabdomyolysis, as well as other pathologies. ER treatment provided: See below Diagnostics interpreted by me: ECG: EKG was obtained in the emergency department. My interpretation is sinus rhythm at 89 bpm. First-degree AV block was noted. Right bundle branch block pattern was noted. There was T wave inversions noted in the anterior leads. This was compared to a tracing from June 04, 2020. The anterior T wave inversion is new compared to the previous tracing. Cardiac Monitoring: An order was placed for continuous cardiac monitoring. The monitor shows a rate of 95 bpm with sinus rhythm. Laboratory studies: As stated above and show below. Imaging studies: See below Consultation(s): 1420: I discussed this case with Dr. Lindquist who is on-call for the [facility] hospitalist group. Past Med/Surg History Medical History Anxiety Atrial fibrillation with rapid ventricular response Atrial flutter on xarelto Atrial flutter, paroxysmal Chronic bronchitis Chronic diastolic CHF (congestive heart failure) Coronary arteriosclerosis Depression Fall GERD (gastroesophageal reflux disease) Heart disease IRREGULAR RHYTHYM HTN (hypertension) Iron deficiency anemia Kidney stones Left ventricular outflow tract obstruction group home current use of systemic steroids Mild HOCM (hypertrophic obstructive cardiomyopathy) Multiple fractures of rib involving four or more ribs Nephrolithiasis Obstructive sleep apnea On anticoagulant therapy xarelto daily On home oxygen therapy 2L N/C at hs Organic impotence Pericardial effusion Pleural effusion HX OF Prostate cancer Steroid-induced osteopenia Surgical History H/O cystoscopy "History of Cystoscopy With Insertion Of Ureteral Stent" on CCD H/O tooth extraction History of bronchoscopy History of cardiac radiofrequency ablation History of prostatectomy History of repair of right rotator cuff Hx of colonoscopy Hx of esophagogastroduodenoscopy Family History Sister Ovarian cancer Mother Skin cancer Myocardial infarction Grandfather Myocardial infarction Other No family history of adverse response to anesthesia Stroke Denies family history of Prostate cancer Breast cancer Colorectal cancer Social History Smoking Status: Never smoker Second Hand Exposure: No; Hx Alcohol Use: No Hx Substance Use: No Preferred Language: [place] Communication Ability: Effective Visual Impairment: No Limitations Hearing Ability: Use of Hearing Aid Commercial [employer] Required: No Beliefs That Will Affect Care: None marital status: Current Living Situation: Spouse current occupational status: retired Other Information That Helps Us Care for You: No Feels Safe at Home: Yes Childhood Exposure to Second-Hand Smoke: No caffeine: Yes during the past year weight has: remained stable Dental Care, Regularly: No Physical Activity Frequency: Does not Exercise Seatbelt Use: always Sunscreen Use: No Assistive Devices: Denture - Upper, Denture - Lower, Hearing Aid - Left, Hearing Aid - Right and Oxygen - at Night Allergies Allergies Allergy/AdvReac Type Severity Reaction Status Date / Time moxifloxacin Allergy Severe throat Verified 06/18/20 14:50 swelling ofloxacin Allergy Severe SWELLING Verified 06/18/20 14:50 AROUND FACE Quinolones Allergy Severe ANAPHYLAXIS Verified 06/18/20 14:50 formoterol Allergy Intermediate RASH Verified 06/18/20 14:50 Sulfa (Sulfonamide Allergy Intermediate severe red Verified 06/18/20 14:50 Antibiotics) rash Home Meds Home Medications Medication Instructions Recorded Confirmed cyanocobalamin (vitamin B-12) 500 mcg PO HS 05/02/19 06/18/20 [Vitamin B-12] magnesium oxide 500 mg tablet 500 mg PO BID tab 05/07/19 06/18/20 multivitamin with minerals 1 tab PO QAM 03/27/20 06/18/20 [Multiple Vitamin-Minerals] ascorbic acid (vitamin C) [Vitamin 500 mg PO QAM 05/03/20 06/18/20 C] levothyroxine 75 mcg capsule 75 mcg PO Q OTHER DAY 05/06/20 06/18/20 insulin glargine 100 unit/mL (3 45 unit SC QAM ml 05/18/20 06/18/20 mL) subcutaneous pen ferrous sulfate 325 mg PO HS 06/01/20 06/18/20 omeprazole 40 mg PO QAM 06/01/20 06/18/20 digoxin [Digox] 125 mcg PO QAM 06/18/20 06/18/20 Previous Rx's Medication Instructions Recorded albuterol sulfate 2.5 mg INH Q4H PRN #360 ml 11/25/19 albuterol sulfate 90 mcg/actuation 2 puffs INH Q4H PRN #8.5 gm 02/11/20 aerosol inhaler simvastatin 80 mg tablet 40 mg PO HS #90 tab 03/03/20 Lift Chair #1 ea 05/03/20 Lift Chair #1 ea 05/03/20 escitalopram oxalate 20 mg tablet 20 mg PO QAM #90 tab 05/13/20 metformin 1,000 mg tablet 1,000 mg PO BID #180 tab 05/21/20 apixaban [Eliquis] 5 mg PO BID #60 tab 06/11/20 furosemide 40 mg PO DAILY PRN #30 tab 06/11/20 lidocaine 3 patch TRANSDERMAL QAM #60 ea 06/11/20 metoprolol tartrate 37.5 mg PO BID #60 tab 06/11/20 tramadol 50 mg PO Q6H PRN #20 tab 06/11/20 lancets #100 ea 06/17/20 Results & Data (ED) Vital Signs Vital Signs - 24 hr 06/18/20 12:29 06/18/20 13:38 06/18/20 14:30 Temperature 37.3 C Temperature Source Oral Pulse Rate 89 89 91 H Pulse Rate [Right Finger] Pulse Rate from SpO2 Sensor 90 Respiratory Rate 27 H 20 24 Blood Pressure 147/72 H 113/78 138/78 Blood Pressure [Right Arm] Blood Pressure Mean 97 99 98 Blood Pressure Mean [Right Arm] Blood Pressure Position Lying Pulse Oximetry 93 93 94 Oxygen Delivery Method Room Air Sepsis Recent Fever Within 48 Hours No Sepsis New/Unexplained Change in Mental Status No Sepsis Action Taken by Nursing No Action Required 06/18/20 15:56 Temperature Temperature Source Pulse Rate Pulse Rate [Right Finger] 92 H Pulse Rate from SpO2 Sensor Respiratory Rate 25 H Blood Pressure Blood Pressure [Right Arm] 153/82 H Blood Pressure Mean Blood Pressure Mean [Right Arm] 105 Blood Pressure Position Pulse Oximetry 94 Oxygen Delivery Method Room Air Sepsis Recent Fever Within 48 Hours Sepsis New/Unexplained Change in Mental Status Sepsis Action Taken by Fdc Medications Current Medication List: was personally reviewed by me Laboratory Data Attestation: I reviewed the patient's lab results. Result diagrams: 06/18/20 13:49 06/18/20 13:49 Lab Results 06/18/20 06/18/20 06/18/20 Range/Units 12:31 12:31 12:31 WBC 27.10 H (4.8-10.8) K/uL RBC 3.29 L (4.7-6.1) M/uL Hgb 9.9 L (14.0-18.0) g/dL POC Hgb (14.0-18.0) g/dl Hct 31.1 L (42-52) % POC Hct (42-52) % MCV 94.5 (80-100) fL MCH 30.1 (25-34) pg MCHC 31.8 L (32-36) g/dL RDW Std Deviation 54.2 H (36.4-46.3) fL RDW Coeff of Ruddy 15.6 H (11.5-14.5) % Plt Count 354 (130-400) K/uL MPV 10.2 (7.4-10.4) fL Absolute Nucleated RBC (0-0) K/uL Nucleated RBC % (auto) % Neutrophils % (Manual) 63.7 % Lymphocytes % (Manual) 28.3 % Monocytes % (Manual) 8.0 % Myelocytes % (Man) % Neutrophils # (Manual) 17.26 H (1.4-6.5) K/uL Total Absolute Neuts 17.26 H (1.4-6.5) K/uL Lymphocytes # (Manual) 7.67 H (1.2-3.4) K/uL Total Abs Lymphocytes 7.67 H (1.2-3.4) K/uL Monocytes # (Manual) 2.17 H (0.11-0.59) K/uL Myelocytes # (Manual) (0-0) K/uL RBC Morphology Unremarkable PT 12.0 (9.0-12.0) Seconds INR 1.1 (0.9-1.1) APTT 32.4 H (21.0-31.0) Seconds PTT Ratio 1.2 POC Sodium (135-144) mmol/L Sodium 134 L (136-145) mmol/L POC Potassium (3.3-5.0) mmol/L Potassium 5.4 H (3.5-5.1) mmol/L POC Chloride (101-112) mmol/L Chloride 101 (98-107) mmol/L Carbon Dioxide 23 (21-32) mmol/L POC Total CO2 (24-31) mmol/L Anion Gap 10.0 (3-11) POC Anion Gap (16-25) mmol/L POC BUN (7-18) mg/dl BUN 25 H (7-18) mg/dl Creatinine 1.74 H (0.6-1.4) mg/dl POC Creatinine (0.6-1.3) mg/dl Est Cr Clr Drug Dosing 32.7 ml/min Est GFR ( Amer) 41.4 Est GFR (Non-Af Amer) 35.7 BUN/Creatinine Ratio 14.2 (10-20) Glucose 246 H (70-99) mg/dl POC Glucose (other) (70-99) mg/dl Calcium 8.3 L (8.5-10.1) mg/dl POC Ioniz Calcium Juan Carlos (1.12-1.32) mmol/l Magnesium (1.8-2.4) mg/dl Total Bilirubin 0.7 (0.2-1) mg/dl AST 14 L (15-37) U/L ALT 22 (12-78) U/L Alkaline Phosphatase 206 H (45-117) U/L Troponin I 0.206 H* (0-0.045) ng/ml Total Protein 6.6 (6.4-8.2) gm/dl Albumin 2.9 L (3.4-5.0) gm/dl Globulin 3.7 (2.5-4.0) gm/dl Albumin/Globulin Ratio 0.8 L (0.9-2) Lipase 71 L (73-393) U/L Digoxin (0.8-2.0) ng/ml Blood Type Antibody Screen 06/18/20 06/18/20 06/18/20 Range/Units 13:00 13:49 13:49 WBC (4.8-10.8) K/uL RBC (4.7-6.1) M/uL Hgb (14.0-18.0) g/dL POC Hgb 6.5 L* (14.0-18.0) g/dl Hct (42-52) % POC Hct 19 L* (42-52) % MCV (80-100) fL MCH (25-34) pg MCHC (32-36) g/dL RDW Std Deviation (36.4-46.3) fL RDW Coeff of Ruddy (11.5-14.5) % Plt Count (130-400) K/uL MPV (7.4-10.4) fL Absolute Nucleated RBC (0-0) K/uL Nucleated RBC % (auto) % Neutrophils % (Manual) % Lymphocytes % (Manual) % Monocytes % (Manual) % Myelocytes % (Man) % Neutrophils # (Manual) (1.4-6.5) K/uL Total Absolute Neuts (1.4-6.5) K/uL Lymphocytes # (Manual) (1.2-3.4) K/uL Total Abs Lymphocytes (1.2-3.4) K/uL Monocytes # (Manual) (0.11-0.59) K/uL Myelocytes # (Manual) (0-0) K/uL RBC Morphology PT (9.0-12.0) Seconds INR (0.9-1.1) APTT (21.0-31.0) Seconds PTT Ratio POC Sodium 143 (135-144) mmol/L Sodium 135 L (136-145) mmol/L POC Potassium 3.8 (3.3-5.0) mmol/L Potassium 5.2 H (3.5-5.1) mmol/L POC Chloride 112 (101-112) mmol/L Chloride 103 (98-107) mmol/L Carbon Dioxide 24 (21-32) mmol/L POC Total CO2 15 L (24-31) mmol/L Anion Gap 8.0 (3-11) POC Anion Gap 21.0 (16-25) mmol/L POC BUN 21 H (7-18) mg/dl BUN 26 H (7-18) mg/dl Creatinine 1.73 H (0.6-1.4) mg/dl POC Creatinine 0.9 (0.6-1.3) mg/dl Est Cr Clr Drug Dosing 32.9 ml/min Est GFR ( Amer) 41.7 Est GFR (Non-Af Amer) 36.0 BUN/Creatinine Ratio 14.7 (10-20) Glucose 232 H (70-99) mg/dl POC Glucose (other) 164 H (70-99) mg/dl Calcium 7.8 L (8.5-10.1) mg/dl POC Ioniz Calcium Juan Carlos 0.84 L (1.12-1.32) mmol/l Magnesium 1.9 (1.8-2.4) mg/dl Total Bilirubin 0.6 (0.2-1) mg/dl AST 15 (15-37) U/L ALT 20 (12-78) U/L Alkaline Phosphatase 182 H (45-117) U/L Troponin I 0.225 H* (0-0.045) ng/ml Total Protein 6.0 L (6.4-8.2) gm/dl Albumin 2.5 L (3.4-5.0) gm/dl Globulin 3.5 (2.5-4.0) gm/dl Albumin/Globulin Ratio 0.7 L (0.9-2) Lipase 60 L (73-393) U/L Digoxin (0.8-2.0) ng/ml Blood Type O Positive Antibody Screen NEGATIVE 06/18/20 06/18/20 06/18/20 Range/Units 13:49 13:49 13:49 WBC 19.19 H (4.8-10.8) K/uL RBC 3.02 L (4.7-6.1) M/uL Hgb 9.1 L (14.0-18.0) g/dL POC Hgb (14.0-18.0) g/dl Hct 28.6 L (42-52) % POC Hct (42-52) % MCV 94.7 (80-100) fL MCH 30.1 (25-34) pg MCHC 31.8 L (32-36) g/dL RDW Std Deviation 54.1 H (36.4-46.3) fL RDW Coeff of Ruddy 15.6 H (11.5-14.5) % Plt Count 306 (130-400) K/uL MPV 10.4 (7.4-10.4) fL Absolute Nucleated RBC 0.06 H (0-0) K/uL Nucleated RBC % (auto) 0.3 % Neutrophils % (Manual) 62.2 % Lymphocytes % (Manual) 22.8 % Monocytes % (Manual) 13.2 % Myelocytes % (Man) 1.8 % Neutrophils # (Manual) 11.94 H (1.4-6.5) K/uL Total Absolute Neuts 11.94 H (1.4-6.5) K/uL Lymphocytes # (Manual) 4.38 H (1.2-3.4) K/uL Total Abs Lymphocytes 4.38 H (1.2-3.4) K/uL Monocytes # (Manual) 2.53 H (0.11-0.59) K/uL Myelocytes # (Manual) 0.35 H (0-0) K/uL RBC Morphology PT 12.1 H (9.0-12.0) Seconds INR 1.2 H (0.9-1.1) APTT 32.2 H (21.0-31.0) Seconds PTT Ratio 1.2 POC Sodium (135-144) mmol/L Sodium (136-145) mmol/L POC Potassium (3.3-5.0) mmol/L Potassium (3.5-5.1) mmol/L POC Chloride (101-112) mmol/L Chloride (98-107) mmol/L Carbon Dioxide (21-32) mmol/L POC Total CO2 (24-31) mmol/L Anion Gap (3-11) POC Anion Gap (16-25) mmol/L POC BUN (7-18) mg/dl BUN (7-18) mg/dl Creatinine (0.6-1.4) mg/dl POC Creatinine (0.6-1.3) mg/dl Est Cr Clr Drug Dosing ml/min Est GFR ( Amer) Est GFR (Non-Af Amer) BUN/Creatinine Ratio (10-20) Glucose (70-99) mg/dl POC Glucose (other) (70-99) mg/dl Calcium (8.5-10.1) mg/dl POC Ioniz Calcium Juan Carlos (1.12-1.32) mmol/l Magnesium (1.8-2.4) mg/dl Total Bilirubin (0.2-1) mg/dl AST (15-37) U/L ALT (12-78) U/L Alkaline Phosphatase (45-117) U/L Troponin I (0-0.045) ng/ml Total Protein (6.4-8.2) gm/dl Albumin (3.4-5.0) gm/dl Globulin (2.5-4.0) gm/dl Albumin/Globulin Ratio (0.9-2) Lipase (73-393) U/L Digoxin 1.1 (0.8-2.0) ng/ml Blood Type Antibody Screen Administered Medications Fentanyl Citrate (Fentanyl Citrate 100 Mcg/2 Ml Vial) 25 mcg IV Q15M PRN PRN Reason: Pain Stop: 07/02/20 12:41 Last Admin: 06/18/20 12:54 Dose: 25 mcg Documented by: [id number] Discontinued Medications Sodium Chloride (Nss) 500 mls @ 999 mls/hr IV .Q31M MIQUEL Stop: 06/18/20 13:15 Last Infusion: 06/18/20 13:55 Dose: 0 mls/hr Documented by: [id number] Admin: 06/18/20 12:54 Dose: 999 mls/hr Documented by: [id number] Ioversol (Ioversol 100ml) 93 ml IV ONCE ONE Stop: 06/18/20 13:19 Last Admin: 06/18/20 13:19 Dose: 93 ml Documented by: [id number] Ondansetron HCl (Ondansetron Inj 2 Mg/Ml 2 Ml Vial) 4 mg IV NOW STA Stop: 06/18/20 12:43 Last Admin: 06/18/20 12:54 Dose: 4 mg Documented by: [id number] Imaging Data Radiologist's Impression: Patient: ALAYNA LATHAM Admit Date: 06/18/20 MR#: [id number] Address1: [address] [place] [address] Acct ID:[id number] Address2: Date: 1940 [facility] Zip: [place] [address] Age: 80 Location: ED Sex: M Room/Bed: Att Phy: Diagnosis: MHE Nakita Phy: Artis Gunderson MD Service Date: 06/18/20 [facility] Phy: Interpreting Phy: Fausto Donovan MD Admit Phy: Ordering Phy: Mohit Charles DO cc: ~ CT SCAN OF THE BRAIN WITHOUT IV CONTRAST CLINICAL HISTORY: Change in mental status. Recent fall. COMPARISON STUDY: CT of the brain dated 06/17/2020. TECHNIQUE: Unenhanced axial CT scan of the brain is performed from the vertex to the skull base. A dose lowering technique was utilized adhering to the principles of ALARA. FINDINGS: Brain parenchyma: There are age-related involutional changes noting mild subcortical and periventricular microangiopathic change. There is no hemorrhage, mass effect, or evidence of acute territorial ischemia by CT criteria. Schmitt- white matter differentiation is preserved. No extra-axial fluid collection is seen. Ventricles, sulci, cisterns: Prominent secondary to involutional change. Intracranial vasculature: There is atherosclerotic calcification of the cavernous carotid and vertebral arteries. Calvarium: The skeletal structures are osteopenic. No depressed calvarial fracture is identified. Soft tissues: Skin clips are noted in the left scalp. Sinuses and mastoids: The visualized paranasal sinuses are clear. The mastoid air cells are well pneumatized. Orbits: The bony orbits are grossly intact. There are bilateral ocular lens implants. IMPRESSION: No acute intracranial abnormality and no significant change from yesterday. ACT 112: Negative or not required by law. Electronically signed by: Fausto Donovan M.D. 06/18/2020 1:28 PM Dictated: 06/18/20 1326 Transcribed: 06/18/201325 Patient: ALAYNA LATHAM Admit Date: 06/18/20 MR#: [id number] Address1: [address] [place] [address] Acct ID:[id number] Address2: Date: 1940 [facility] Zip: [place] [address] Age: 80 Location: ED Sex: M Room/Bed: Att Phy: Diagnosis: MHE Nakita Phy: Artis Gunderson MD Service Date: 06/18/20 [facility] Phy: Interpreting Phy: Sandor Murdock MD Admit Phy: Ordering Phy: Mohit Charles DO cc: ~ XR femur LT 2V routine CLINICAL HISTORY: fall. Left femur pain. COMPARISON STUDY: None. FINDINGS: No fracture or dislocation within the left femur. Mild vascular calcifications are noted. No radiopaque foreign bodies. The visualized pelvic bones are intact. There are surgical clips within the deep pelvis. 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 IMPRESSION: No fracture or dislocation within the left femur. ACT 112: Negative or not required by law. Electronically signed by: Sandor Murdock M.D. 06/18/2020 1:20 PM Dictated: 06/18/208 Transcribed: 06/18/201317 Patient: ALAYNA LATHAM Admit Date: 06/18/20 MR#: [id number] Address1: [address] [place] [address] Acct ID:[id number] Address2: Date: 1940 [facility] Zip: [place] [address] Age: 80 Location: ED Sex: M Room/Bed: Att Phy: Diagnosis: MHE Nakita Phy: Artis Gunderson MD Service Date: 06/18/20 Fam Phy: Interpreting Phy: Rodger Robison MD Admit Phy: Ordering Phy: Mohit Charles DO cc: ~ XR chest 1V portable CLINICAL HISTORY: Atypical chest pain COMPARISON STUDY: 06/17/2020 FINDINGS: The heart is enlarged. There is aortic tortuosity/ectasia. There are old right-sided rib fractures with adjacent pleural reaction. There is hazy increased density within the axillary portion of the left chest, possibly secondary to the recently described left-sided rib fractures. The left-sided rib fractures were better demonstrated on the prior study[ IMPRESSION: 1. Cardiomegaly 2. Bilateral rib fractures 3. No evidence of pneumothorax ACT 112: Negative or not required by law. Electronically signed by: Rodger Robison M.D. 06/18/2020 1:16 PM Dictated: 06/18/20 131 Transcribed: 06/18/20 1313 Patient: ALAYNA LATHAM Admit Date: 06/18/20 MR#: [id number] Address1: [address] [place] [address] Acct ID:[id number] Address2: Date: 1940 [facility] Zip: [place] [address] Age: 80 Location: ED Sex: M Room/Bed: Att Phy: Diagnosis: MHE Nakita Phy: Artis Gunderson MD Service Date: 06/18/20 Fam Phy: Interpreting Phy: Rodger Robison MD Admit Phy: Ordering Phy: Mohit Charles DO cc: ~ CT OF THE CHEST WITH IV CONTRAST CLINICAL HISTORY: Chest pain status post trauma COMPARISON STUDY: 06/04/2020 TECHNIQUE: Following the IV administration of 93 mL of Optiray-320, CT of the thorax was performed from the thoracic inlet to the lung bases. Images are reviewed in the axial, sagittal, and coronal planes. IV contrast was administered without complication. A dose lowering technique was utilized adhering to the principles of ALARA. CT DOSE: FINDINGS: Thyroid: Imaged portions of the thyroid gland are normal in appearance. Thoracic aorta: The thoracic aorta is normal in course and caliber, noting standard 3-vessel arch anatomy. No aneurysm or dissection is seen. Pulmonary vasculature: The pulmonary trunk is normal in caliber. There are no central filling defects identified to suggest pulmonary embolus. Note that this examination was not protocoled for the evaluation of pulmonary emboli. HEART: The heart is enlarged. There is no pericardial effusion. Lungs and pleural spaces: There is a trace left apical pneumothorax. There is a small left pleural effusion. There are dependent airspace opacities, likely atelectatic. There are subtle left pleural calcifications unchanged from the prior study. There is right-sided pleural thickening associated with right-sided rib fractures. Mediastinum: There is known to pathologic mediastinal lymphadenopathy Magda: There is no evidence of pathologic hilar adenopathy Axilla: There is no evidence of pathologic axillary lymphadenopathy Upper abdomen: Partially visualized upper abdominal viscera is within normal limits. Skeletal structures: There is an equivocal lytic focus within the right third rib. There are fractures of the right fourth fifth sixth seventh and eighth and ninth ribs. There are fractures of the left sixth through 10th ribs. There is an old sternal fracture. IMPRESSION: 1. Fractures of the right fourth through ninth ribs 2. Fractures of the left sixth through 10th ribs 3. Old sternal fracture 4. Trace left apical pneumothorax 5. No evidence of mediastinal hemorrhage 6. Small left pleural effusion, and right-sided pleural thickening. 7. Bibasilar opacities likely atelectatic ACT 112: Negative or not required by law. Electronically signed by: Rodger Robison M.D. 06/18/2020 1:36 PM Dictated: 06/18/20 1326 Transcribed: 06/18/20 1326 Patient: ALAYNA LATHAM Admit Date: 06/18/20 MR#: [id number] Address1: [address] [place] [address] Acct ID:[id number] Address2: Date: 1940 [facility] Zip: [place] [address] Age: 80 Location: ED Sex: M Room/Bed: Att Phy: Diagnosis: MHE Nakita Phy: Artis Gunderson MD Service Date: 06/18/20 [facility] Phy: Interpreting Phy: Cody Quintanilla Admit Phy: Ordering Phy: Mohit Charles DO cc: ~ ABDOMEN AND PELVIS CT WITH IV CONTRAST CT DOSE: 9.18 mGy.cm HISTORY: Acute generalized abdominal pain status post fall fall TECHNIQUE: Multiaxial CT images of the abdomen and pelvis were performed foll owing the IV administration of 93 cc of Optiray 320, A dose lowering technique was utilized adhering to the principles of ALARA. COMPARISON STUDY: Chest CT of same day, CT abdomen and pelvis 06/04/2020 FINDINGS: Trace left pleural effusion. Trace residual right-sided pneumothorax. Partially imaged nodular subpleural opacity adjacent to the posterior right seventh rib. Dependent subsegmental bibasilar atelectasis. Interval development of partially imaged lower pneumomediastinum there is no pneumatosis or pneumoperitoneum. Cardiomegaly. Mitral and aortic annular calcifications. The spleen, mildly atrophic pancreas, adrenal glands, gallbladder and liver appear unremarkable. Patency of the hepatic and portal veins. Mild nonspecific bilateral perinephric stranding. Hypodensities of the bilateral kidneys, most of which are too small to characterize are suggestive of cysts. 2.0 cm left renal cyst. Punctate calcification of the interpolar right kidney suggests nonobstructing calculus. Prostatectomy. Bladder wall thickening suggests sequela of chronic bladder outlet obstruction. Small fat filled left inguinal hernia. Mixed plaque of the abdominal aorta without aneurysm. No bowel obstruction or bowel wall thickening. Normal appendix. Tiny fat filled periumbilical hernia. Interval development of a subacute cutaneous hematoma lateral to the left hip, 6.9 x 3.5 x 13.1 cm. Healing subacute right-sided rib fractures are redemonstrated, several of which are mildly displaced. There are acute mildly displaced fractures of the lateral left seventh, ninth and 10th ribs. Unchanged ill-defined lucent foci of the lateral left sixth and eighth ribs are indeterminate. Late subacute versus chronic nondisplaced fracture of the posterior left 11th rib. IMPRESSION: 1. Acute mildly displaced fractures of the lateral left seventh, ninth and 10th ribs. Trace left pleural effusion with lower thoracic pneumomediastinum. 2. Multiple healing subacute right-sided rib fractures are redemonstrated with resolving hemothorax. 3. Moderate sized subcutaneous hematoma lateral to the left hip measures up to 13 cm. No acute left hip fracture identified. 4. Additional findings as above. ACT 112: Negative or not required by law. The above report was generated using voice recognition software. It may contain grammatical, syntax or spelling errors. Electronically signed by: Chris Quintanilla M.D. 06/18/2020 1:45 PM Dictated: 06/18/20 1331 Transcribed: 06/18/20 1331 Blood Pressure Blood Pressure Findings: Elevated blood pressure Blood Pressure Disposition: further management by hospitalist Discharge Plan Visit Data Chief Complaint: Altered Mental Status ED Provider: Mohit Charles Discharge Problem: Fracture of multiple ribs of both sides, Pneumothorax, Hematoma of left thigh, Anemia, Acute kidney injury Patient Disposition: Being Evaluated by Hospitalist Condition: Good Discharge Instructions Interventions: ED Discharge Assessment Last Done: 06/18/20 15:57 Forms Stand Alone Forms: My [facility] Prescriptions Prescriptions: No Action albuterol sulfate 2.5 mg /3 mL (0.083 %) solution for nebulization 2.5 mg INH Q4H PRN (Reason: shortness of breath or wheezing) Qty: 360 RF: 5 [id number]-uabnytono-dxsfqbip [Trelegy Ellipta] 100-62.5-25 mcg blister with device 1 inh inhalation QAM RF: 0 simvastatin 80 mg tablet 40 mg PO HS Qty: 90 RF: 3 (DME) Lift Chair Misc See Rx Instructions .ROUTE .MEDSUPPLY Qty: 1 RF: 0 (DME) Lift Chair Misc See Rx Instructions .ROUTE .MEDSUPPLY Qty: 1 RF: 0 metformin 1,000 mg tablet 1,000 mg PO BID Qty: 180 RF: 3 (DME) lancets [Microlet Lancet] Misc See Rx Instructions .ROUTE .MEDSUPPLY Qty: 100 RF: 5 magnesium oxide 500 mg tablet 500 mg PO BID RF: 0 albuterol sulfate 90 mcg/actuation HFA aerosol inhaler 2 puffs INH Q4H PRN (Reason: Shortness Of Breath) Qty: 8.5 RF: 11 escitalopram oxalate 20 mg tablet 20 mg PO QAM Qty: 90 RF: 3 levothyroxine 75 mcg capsule 75 mcg PO Q OTHER DAY RF: 0 multivitamin with minerals [Multiple Vitamin-Minerals] Tablet 1 tab PO QAM RF: 0 omeprazole 40 mg capsule,delayed release(DR/EC) 40 mg PO QAM RF: 0 ferrous sulfate 325 mg (65 mg iron) tablet,delayed release (DR/EC) 325 mg PO HS RF: 0 lidocaine 5 % Adhesive Patch,Medicated 3 patch transdermal QAM Qty: 60 RF: 0 tramadol 50 mg tablet 50 mg PO Q6H PRN (Reason: pain) Qty: 20 RF: 0 metoprolol tartrate 37.5 mg tablet 37.5 mg PO BID Qty: 60 RF: 2 furosemide 20 mg tablet 40 mg PO DAILY PRN (Reason: weight gain of >2-3 pounds 1-2 days) Qty: 30 RF: 0 Eliquis 5 mg tablet 5 mg PO BID Qty: 60 RF: 5 cyanocobalamin (vitamin B-12) [Vitamin B-12] 500 mcg Tablet 500 mcg PO HS RF: 0 ascorbic acid (vitamin C) [Vitamin C] 500 mg Tablet 500 mg PO QAM RF: 0 Lantus Solostar U-100 Insulin 100 unit/mL (3 mL) insulin pen 45 unit SC QAM RF: 0 digoxin [Digox] 125 mcg (0.125 mg) tablet 125 mcg PO QAM RF: 0 Referrals Referrals: Howard Gunderson MD [Primary Care Provider] -
[2020-06-18 12:57] LABS: Hematocrit (blood only) 31.1 % (42-52); Hemoglobin 9.9 g/dL (14.0-18.0); Mean Corpuscular Hemoglobin 30.1 pg (25-34); Mean Corpuscular Hgb Conc 31.8 g/dL (32-36); Mean Corpuscular Volume 94.5 fL (80-100); Mean Platelet Volume 10.2 fL (7.4-10.4); Platelet Count 354 K/uL (130-400); RDW Coefficient of Variation 15.6 % (11.5-14.5); RDW Standard Deviation 54.2 fL (36.4-46.3); Red Blood Count 3.29 M/uL (4.7-6.1)
[2020-06-18 13:04] LABS: INR 1.1 (0.9-1.1); Partial Thromboplastin Ratio 1.2; Partial Thromboplastin Time 32.4 Seconds (21.0-31.0)
[2020-06-18 13:05] LABS: Albumin Level 2.9 gm/dl (3.4-5.0); BUN Creatinine Ratio 14.2 (10-20); Calcium 8.3 mg/dl (8.5-10.1); Creatinine Clr Calc Pharmacy 32.7 ml/min; Est GFR (African American) 41.4; Est GFR (Non-African American) 35.7; Potassium 5.4 mmol/L (3.5-5.1)
[2020-06-18 13:13] LABS: iSTAT Creatinine 0.9 mg/dl (0.6-1.3); iSTAT Hemoglobin 6.5 g/dl (14.0-18.0); iSTAT Ionized Calcium 0.84 mmol/l (1.12-1.32); iSTAT Potassium 3.8 mmol/L (3.3-5.0)
--- NOTE | 2020-06-18 13:17 | XRay Report ---
XR chest 1V portable CLINICAL HISTORY: Atypical chest pain COMPARISON STUDY: 06/17/2020 FINDINGS: The heart is enlarged. There is aortic tortuosity/ectasia. There are old right-sided rib fr actures with adjacent pleural reaction. There is hazy increased density within the axillary portion o f the left chest, possibly secondary to the recently described left-sided rib fractures. The left-juanita ed rib fractures were better demonstrated on the prior study[ IMPRESSION: 1. Cardiomegaly 2. Bilateral rib fractures 3. No evidence of pneumothorax ACT 112: Negative or not required by law. Electronically signed by: Rodger Robison M.D. 06/18/2020 1:16 PM
[2020-06-18] MEDS ORDERED: IOVERSOL 100ml IV ONE (13:18)
[2020-06-18 13:19] LABS: Albumin Globulin Ratio 0.8 (0.9-2); Bilirubin,Total 0.7 mg/dl (0.2-1); Globulin 3.7 gm/dl (2.5-4.0); Total Protein 6.6 gm/dl (6.4-8.2); Troponin I 0.206 ng/ml (0-0.045)
--- NOTE | 2020-06-18 13:22 | XRay Report ---
XR femur LT 2V routine CLINICAL HISTORY: fall. Left femur pain. COMPARISON STUDY: None. FINDINGS: No fracture or dislocation within the left femur. Mild vascular calcifications are noted. N o radiopaque foreign bodies. The visualized pelvic bones are intact. There are surgical clips within the deep pelvis. 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 IMPRESSION: No fracture or dislocation within the left femur. ACT 112: Negative or not required by law. Electronically signed by: Sandor Murdock M.D. 06/18/2020 1:20 PM
[2020-06-18 13:29] LABS: ALC (manual) 7.67 K/uL (1.2-3.4); ANC (manual) 17.26 K/uL (1.4-6.5); Lymphocytes # (manual) 7.67 K/uL (1.2-3.4); Lymphocytes % (manual) 28.3 %; Monocytes # (manual) 2.17 K/uL (0.11-0.59); Neutrophils # (manual) 17.26 K/uL (1.4-6.5); Neutrophils % (manual) 63.7 %; RBC Morphology Unremarkable
--- NOTE | 2020-06-18 13:30 | CT Scan Report ---
CT SCAN OF THE BRAIN WITHOUT IV CONTRAST CLINICAL HISTORY: Change in mental status. Recent fall. COMPARISON STUDY: CT of the brain dated 06/17/2020. TECHNIQUE: Unenhanced axial CT scan of the brain is performed from the vertex to the skull base. A do se lowering technique was utilized adhering to the principles of ALARA. FINDINGS: Brain parenchyma: There are age-related involutional changes noting mild subcortical and periventric ular microangiopathic change. There is no hemorrhage, mass effect, or evidence of acute territorial i schemia by CT criteria. Schmitt-white matter differentiation is preserved. No extra-axial fluid collecti on is seen. Ventricles, sulci, cisterns: Prominent secondary to involutional change. Intracranial vasculature: There is atherosclerotic calcification of the cavernous carotid and vertebr al arteries. Calvarium: The skeletal structures are osteopenic. No depressed calvarial fracture is identified. Soft tissues: Skin clips are noted in the left scalp. Sinuses and mastoids: The visualized paranasal sinuses are clear. The mastoid air cells are well pneu matized. Orbits: The bony orbits are grossly intact. There are bilateral ocular lens implants. IMPRESSION: No acute intracranial abnormality and no significant change from yesterday. ACT 112: Negative or not required by law. Electronically signed by: Fausto Donovan M.D. 06/18/2020 1:28 PM
--- NOTE | 2020-06-18 13:37 | CT Scan Report ---
CT OF THE CHEST WITH IV CONTRAST CLINICAL HISTORY: Chest pain status post trauma COMPARISON STUDY: 06/04/2020 TECHNIQUE: Following the IV administration of 93 mL of Optiray-320, CT of the thorax was performed f rom the thoracic inlet to the lung bases. Images are reviewed in the axial, sagittal, and coronal nai misti. IV contrast was administered without complication. A dose lowering technique was utilized adher ing to the principles of ALARA. CT DOSE: FINDINGS: Thyroid: Imaged portions of the thyroid gland are normal in appearance. Thoracic aorta: The thoracic aorta is normal in course and caliber, noting standard 3-vessel arch rosita jamshid. No aneurysm or dissection is seen. Pulmonary vasculature: The pulmonary trunk is normal in caliber. There are no central filling defects identified to suggest pulmonary embolus. Note that this examination was not protocoled for the evalu ation of pulmonary emboli. HEART: The heart is enlarged. There is no pericardial effusion. Lungs and pleural spaces: There is a trace left apical pneumothorax. There is a small left pleural ef fusion. There are dependent airspace opacities, likely atelectatic. There are subtle left pleural ifeanyi cifications unchanged from the prior study. There is right-sided pleural thickening associated with r ight-sided rib fractures. Mediastinum: There is known to pathologic mediastinal lymphadenopathy Magda: There is no evidence of pathologic hilar adenopathy Axilla: There is no evidence of pathologic axillary lymphadenopathy Upper abdomen: Partially visualized upper abdominal viscera is within normal limits. Skeletal structures: There is an equivocal lytic focus within the right third rib. There are fracture s of the right fourth fifth sixth seventh and eighth and ninth ribs. There are fractures of the left sixth through 10th ribs. There is an old sternal fracture. IMPRESSION: 1. Fractures of the right fourth through ninth ribs 2. Fractures of the left sixth through 10th ribs 3. Old sternal fracture 4. Trace left apical pneumothorax 5. No evidence of mediastinal hemorrhage 6. Small left pleural effusion, and right-sided pleural thickening. 7. Bibasilar opacities likely atelectatic ACT 112: Negative or not required by law. Electronically signed by: Rodger Robison M.D. 06/18/2020 1:36 PM
--- NOTE | 2020-06-18 13:47 | CT Scan Report ---
ABDOMEN AND PELVIS CT WITH IV CONTRAST CT DOSE: 2069.18 mGy.cm HISTORY: Acute generalized abdominal pain status post fall fall TECHNIQUE: Multiaxial CT images of the abdomen and pelvis were performed following the IV administrat ion of 93 cc of Optiray 320, A dose lowering technique was utilized adhering to the principles of AL SINDI. COMPARISON STUDY: Chest CT of same day, CT abdomen and pelvis 06/04/2020 FINDINGS: Trace left pleural effusion. Trace residual right-sided pneumothorax. Partially imaged nodu lar subpleural opacity adjacent to the posterior right seventh rib. Dependent subsegmental bibasilar atelectasis. Interval development of partially imaged lower pneumomediastinum there is no pneumatosis or pneumoperitoneum. Cardiomegaly. Mitral and aortic annular calcifications. The spleen, mildly atrophic pancreas, adrenal glands, gallbladder and liver appear unremarkable. Raphael ncy of the hepatic and portal veins. Mild nonspecific bilateral perinephric stranding. Hypodensities of the bilateral kidneys, most of which are too small to characterize are suggestive of cysts. 2.0 cm left renal cyst. Punctate calcification of the interpolar right kidney suggests nonobstructing calcu samaria. Prostatectomy. Bladder wall thickening suggests sequela of chronic bladder outlet obstruction. S mall fat filled left inguinal hernia. Mixed plaque of the abdominal aorta without aneurysm. No bowel obstruction or bowel wall thickening. Normal appendix. Tiny fat filled periumbilical hernia. Interval development of a subacute cutaneous hematoma lateral to the left hip, 6.9 x 3.5 x 13.1 cm. Healing s ubacute right-sided rib fractures are redemonstrated, several of which are mildly displaced. There ar e acute mildly displaced fractures of the lateral left seventh, ninth and 10th ribs. Unchanged ill-de fined lucent foci of the lateral left sixth and eighth ribs are indeterminate. Late subacute versus c hronic nondisplaced fracture of the posterior left 11th rib. IMPRESSION: 1. Acute mildly displaced fractures of the lateral left seventh, ninth and 10th ribs. Trace left pleu ral effusion with lower thoracic pneumomediastinum. 2. Multiple healing subacute right-sided rib fractures are redemonstrated with resolving hemothorax. 3. Moderate sized subcutaneous hematoma lateral to the left hip measures up to 13 cm. No acute left h ip fracture identified. 4. Additional findings as above. ACT 112: Negative or not required by law. The above report was generated using voice recognition software. It may contain grammatical, syntax o r spelling errors. Electronically signed by: Chris Quintanilla M.D. 06/18/2020 1:45 PM
[2020-06-18 14:19] LABS: INR 1.2 (0.9-1.1); Partial Thromboplastin Ratio 1.2; Partial Thromboplastin Time 32.2 Seconds (21.0-31.0); Prothrombin Time 12.1 Seconds (9.0-12.0)
[2020-06-18 14:22] LABS: Hematocrit (blood only) 28.6 % (42-52); Hemoglobin 9.1 g/dL (14.0-18.0); Mean Corpuscular Hemoglobin 30.1 pg (25-34); Mean Corpuscular Hgb Conc 31.8 g/dL (32-36); Mean Corpuscular Volume 94.7 fL (80-100); Mean Platelet Volume 10.4 fL (7.4-10.4); Nucleated RBC # (auto) 0.06 K/uL (0-0); Nucleated RBC % (auto) 0.3 %; Platelet Count 306 K/uL (130-400); RDW Coefficient of Variation 15.6 % (11.5-14.5); RDW Standard Deviation 54.1 fL (36.4-46.3); Red Blood Count 3.02 M/uL (4.7-6.1); White Blood Count 19.19 K/uL (4.8-10.8)
[2020-06-18 14:24] LABS: Albumin Level 2.5 gm/dl (3.4-5.0); BUN Creatinine Ratio 14.7 (10-20); Calcium 7.8 mg/dl (8.5-10.1); Creatinine Clr Calc Pharmacy 32.9 ml/min; Est GFR (African American) 41.7; Magnesium 1.9 mg/dl (1.8-2.4); Potassium 5.2 mmol/L (3.5-5.1)
[2020-06-18 14:31] LABS: Albumin Globulin Ratio 0.7 (0.9-2); Bilirubin,Total 0.6 mg/dl (0.2-1); Globulin 3.5 gm/dl (2.5-4.0); Troponin I 0.225 ng/ml (0-0.045)
[2020-06-18 14:34] LABS: ALC (manual) 4.38 K/uL (1.2-3.4); ANC (manual) 11.94 K/uL (1.4-6.5); Lymphocytes # (manual) 4.38 K/uL (1.2-3.4); Lymphocytes % (manual) 22.8 %; Monocytes # (manual) 2.53 K/uL (0.11-0.59); Monocytes % (manual) 13.2 %; Myelocytes # (manual) 0.35 K/uL (0-0); Myelocytes % (manual) 1.8 %; Neutrophils # (manual) 11.94 K/uL (1.4-6.5); Neutrophils % (manual) 62.2 %
--- NOTE | 2020-06-18 15:55 | History & Physical Report ---
Date of Service June 18, 2020 Assessment & Plan (1) Recurrent falls: is mostly concerned about his tramadol use. He has been more confused since taking this possibly contributing towards his falls. Discussed all opiates likely to have this side effect more than tramadol and unfortunately not any good options for his pain. (2) Altered mental state: I suspect he has a degree of concussion also has multiple falls. Fortunately CT head is negative for acute bleed. We will consider indefinitely discontinuing anticoagulation at this time given significant falls risk. (3) Hematoma of left thigh: Hold Eliquis. Monitor Hgb, serial H&H. POC 6.5 in the ER however repeat lab samples 9.9 and 9.1. (4) Fracture of multiple ribs of both sides: Incentive spirometry Pain relief with MIQUEL acetaminophen (5) Acute kidney injury: Suspect pre-renal from poor oral intake. No obstructive cause on CT. NSS 100ml/hr - slow due to his of CHF (6) Leukocytosis: ?secondary to hematoma. No infective source suspect at current time. (7) Obstructive sleep apnea: Intolerant to CPAP. On night time O2 at home. (8) Chronic diastolic CHF (congestive heart failure): No acute exacerbation. Hold diuretics in favor of IV fluids given poor oral intake he appears (9) Atrial fibrillation: Paroxysmal flutter/fibrillation. Not responsive to amiodarone on last a dmission but he appears to be doing better with digoxin since then. Currently appears to be in NSR. Continue digoxin 125 mcg p.o. daily, metoprolol tartrate 37.5 mg p.o. twice daily No anticoagulation hold due to hematoma. Given significant recurrence in falls consider discontinuation of this. (10) Elevated troponin: Suspected demand ischemia in setting of multiple falls. No significant increase between two values taken. No chest pain or shortness of breath to suggest ACS. Repeat with AM labs. (11) Diabetes mellitus type 2 in nonobese: HbA1c 7.7 on June 02. No need to repeat this No longer on glimepiride. Hold Metformin. Consult pharmacy for glycemic management -basal/bolus insulin. (12) Prostate cancer: S/p surgery, no radiation of chemotherapy. Not active. (13) GERD (gastroesophageal reflux disease): Switch omeprazole for pantoprazole as per hospital formulary (14) DVT prophylaxis: SCDs unlikely to tolerate and patient is high falls risk. No anticoagulation at present time due to hematoma as above. Admission and Anticipated Discharge Date Admission Date: 06/18/2020 History of Present Illness Chief Complaint: Altered mental state, recurrent falls Primary Care Provider: Artis Gunderson MD Maninder Gibson is an 80-year-old male who presents to the ER with acute rib fractures, unable to cope at home, altered mental state, decreased appetite and poor oral intake. History was taken from his at bedside due to patient's altered mental state. The patient has had multiple falls recently. He was recently hospitalized from June 01-2019 while getting up to walk to the bathroom he appeared to have a mechanical fall with his cane slipping at that time causing multiple right-sided rib fractures. On this occasion his has noted he has been more confused when taking tramadol. He came to the ER yesterday due to another fall causing a head laceration, left apical pneumothorax and acute fractures of his left ribs. He was discharged from the emergency room but became increasingly confused at home. This was exacerbated whenever he took tramadol. Today he was more lethargic and short of breath, and home health recommended he return to the ER for further evaluation. In addition he was noted to have a large left leg hematoma today with Hgb drop from 11.2 -> 9.9. He has had multiple previous hospitalizations with similar presentations over the past 1 to 2 years. On prior occasions he has been diagnosed with a GI bleed requiring blood/iron transfusions, diastolic congestive heart failure, PNA, COPD exacerbation and atrial flutter with rapid ventricular rates. He had a prior myocardial perfusion scan in May 2019 suggestive of inferior ischemia however follow-up with cardiology given patient comorbidities and lack of symptoms at current activity levels recommended avoiding further invasive testing at that time. No lateralizing extremity weakness on one side. No change in speech, vision, hearing. In the ER he had extensive imaging most concerning for multiple acute left-sided rib fractures and left thigh hematoma. This correlates with his pain on the left chest wall. Patient is aware is in hospital and able to recognize his . He does not remember me from last admission. Allergies Allergy/AdvReac Type Severity Reaction Status Date / Time moxifloxacin Allergy Severe throat Verified 06/18/20 14:50 swelling ofloxacin Allergy Severe SWELLING Verified 06/18/20 14:50 AROUND FACE Quinolones Allergy Severe ANAPHYLAXIS Verified 06/18/20 14:50 formoterol Allergy Intermediate RASH Verified 06/18/20 14:50 Sulfa (Sulfonamide Allergy Intermediate severe red Verified 06/18/20 14:50 Antibiotics) rash Home Medications Home Medications Medication Instructions Recorded Confirmed Type cyanocobalamin (vitamin B-12) 500 mcg PO HS 05/02/19 06/18/20 History [Vitamin B-12] magnesium oxide 500 mg tablet 500 mg PO BID tab 05/07/19 06/18/20 History albuterol sulfate 2.5 mg INH Q4H PRN #360 ml 11/25/19 06/18/20 Rx albuterol sulfate 90 mcg/actuation 2 puffs INH Q4H PRN #8.5 gm 02/11/20 06/18/20 Rx aerosol inhaler simvastatin 80 mg tablet 40 mg PO HS #90 tab 03/03/20 06/18/20 Rx multivitamin with minerals 1 tab PO QAM 03/27/20 06/18/20 History [Multiple Vitamin-Minerals] Lift Chair #1 ea 05/03/20 06/16/20 Rx Lift Chair #1 ea 05/03/20 06/16/20 Rx ascorbic acid (vitamin C) [Vitamin 500 mg PO QAM 05/03/20 06/18/20 History C] escitalopram oxalate 20 mg tablet 20 mg PO QAM #90 tab 05/13/20 06/18/20 Rx insulin glargine 100 unit/mL (3 45 unit SC QAM ml 05/18/20 06/18/20 History mL) subcutaneous pen metformin 1,000 mg tablet 1,000 mg PO BID #180 tab 05/21/20 06/18/20 Rx ferrous sulfate 325 mg PO HS 06/01/20 06/18/20 History omeprazole 40 mg PO QAM 06/01/20 06/18/20 History apixaban [Eliquis] 5 mg PO BID #60 tab 06/11/20 06/18/20 Rx furosemide 40 mg PO DAILY PRN #30 tab 06/11/20 06/18/20 Rx lidocaine 3 patch TRANSDERMAL QAM #60 ea 06/11/20 06/18/20 Rx metoprolol tartrate 37.5 mg PO BID #60 tab 06/11/20 06/18/20 Rx tramadol 50 mg PO Q6H PRN #20 tab 06/11/20 06/18/20 Rx lancets #100 ea 06/17/20 Rx digoxin [Digox] 125 mcg PO QAM 06/18/20 06/18/20 History levothyroxine 75 mcg tablet 37.5 - 75 mcg PO DAILY tab 06/18/20 History Past Med/Surg History Medical History Anxiety Atrial fibrillation with rapid ventricular response Atrial flutter on xarelto Atrial flutter, paroxysmal Chronic bronchitis Chronic diastolic CHF (congestive heart failure) Coronary arteriosclerosis Depression Diabetes mellitus type 2 in nonobese Fall GERD (gastroesophageal reflux disease) Heart disease IRREGULAR RHYTHYM HTN (hypertension) Iron deficiency anemia Kidney stones Left ventricular outflow tract obstruction jail current use of systemic steroids Mild HOCM (hypertrophic obstructive cardiomyopathy) Multiple fractures of rib involving four or more ribs Nephrolithiasis Obstructive sleep apnea On anticoagulant therapy xarelto daily On home oxygen therapy 2L N/C at hs Organic impotence Pericardial effusion Pleural effusion HX OF Prostate cancer Steroid-induced osteopenia Surgical History H/O cystoscopy "History of Cystoscopy With Insertion Of Ureteral Stent" on CCD H/O tooth extraction History of bronchoscopy History of cardiac radiofrequency ablation History of prostatectomy History of repair of right rotator cuff Hx of colonoscopy Hx of esophagogastroduodenoscopy Family History Sister Ovarian cancer Mother Skin cancer Myocardial infarction Grandfather Myocardial infarction Other No family history of adverse response to anesthesia Stroke Denies family history of Prostate cancer Breast cancer Colorectal cancer Social History Smoking Status: Never smoker Second Hand Exposure: No; Hx Alcohol Use: No Hx Substance Use: No Preferred Language: Khmer Communication Ability: Effective Visual Impairment: No Limitations Hearing Ability: Use of Hearing Aid Component Technician Required: No Beliefs That Will Affect Care: None marital status: Current Living Situation: Spouse current occupational status: retired Other Information That Helps Us Care for You: No Feels Safe at Home: Yes Childhood Exposure to Second-Hand Smoke: No caffeine: Yes during the past year weight has: remained stable Dental Care, Regularly: No Physical Activity Frequency: Does not Exercise Seatbelt Use: always Sunscreen Use: No Assistive Devices: Denture - Upper, Denture - Lower, Hearing Aid - Left, Hearing Aid - Right and Oxygen - at Night Review of Systems Review of Systems: Unobtainable due to cognitive status Physical Exam Constitutional: well developed; + not well nourished and no acute distress Eyes: PERRL, conjunctivae normal, anicteric sclerae ENMT: Ears: no external ear abnormality Nose: no external nose abnormality Mouth: + dry oral mucous membranes Neck: trachea midline, no thyromegaly trachea midline Respiratory: normal respiratory effort; no respiratory distress, no labored breathing, no retractions and does not use accessory muscles Auscultation: + rhonchi (Bilateral anteriorly L > R, patient unable to rotate to listen posteriorly); breath sounds present, no diminished lung sounds and no wheezes Cardiovascular: Rate/Rhythm: regular rate and regular rhythm Heart Sounds: + murmur (Systolic throughout) Vessels: no JVD Extremities: normal capillary refill; no calf tenderness and no pedal edema Gastrointestinal (Abdomen): normal bowel sounds, soft, nontender, no hepatospl enomegaly Musculoskeletal: Large left upper lateral thigh hematoma present without cellulitic changes Skin: no rashes, warm and dry Neurologic: moves all extremities, awake and + confused (Increased from recent admissions I have seen him); no focal motor deficits (No lateralizing) Psychiatric: Orientation: alert and oriented to person; + not oriented to place and + not oriented to time Eye Contact: + fair eye contact Genitourinary: no CVA tenderness Results & Data Results & Data ([facility]) Vital Signs (Past 12 Hours) Vital Signs Temp Pulse Resp BP Pulse Ox 06/18/20 14:30 91 H 24 138/78 94 06/18/20 13:38 89 20 113/78 93 06/18/20 12:29 37.3 C 89 27 H 147/[address] SCAN OF THE BRAIN WITHOUT IV CONTRAST IMPRESSION: No acute intracranial abnormality and no significant change from yesterday. XR femur LT 2V routine IMPRESSION: No fracture or dislocation within the left femur. XR chest 1V portable IMPRESSION: 1. Cardiomegaly 2. Bilateral rib fractures 3. No evidence of pneumothorax CT OF THE CHEST WITH IV CONTRAST IMPRESSION: 1. Fractures of the right fourth through ninth ribs 2. Fractures of the left sixth through 10th ribs 3. Old sternal fracture 4. Trace left apical pneumothorax 5. No evidence of mediastinal hemorrhage 6. Small left pleural effusion, and right-sided pleural thickening. 7. Bibasilar opacities likely atelectatic ABDOMEN AND PELVIS CT WITH IV CONTRAST IMPRESSION: 1. Acute mildly displaced fractures of the lateral left seventh, ninth and 10th ribs. Trace left pleural effusion with lower thoracic pneumomediastinum. 2. Multiple healing subacute right-sided rib fractures are redemonstrated with resolving hemothorax. 3. Moderate sized subcutaneous hematoma lateral to the left hip measures up to 13 cm. No acute left hip fracture identified. 4. Additional findings as above. ECG Indication: altered mental status Rate (beats per minute): 89 Rhythm: normal sinus Findings: + 1st degree AV block, + LAFB and + RBBB; no acute ischemic change Comparison ECG Date: from (June 04, 2020) Change: no significant change Code Status & VTE Plan Code Status DNR/DNI as per discussed with his at bedside, consistent with previous wishes. VTE Prophylaxis Plan VTE Prophylaxis will be ordered: No PG Care Time/CCT Total # of Minutes Spent Total Time Spent with Patient: Total time spent is greater than 50% in coordination of care (as documented) at patient's floor/unit and/or counseling patient: Coding Level of Care Code 84781 Initial Inpt Care Lvl 3 Diagnoses Recurrent falls R29.6 Altered mental state R41.82 Hematoma of left thigh S70.12XA Encounter type: initial encounter Fracture of multiple ribs of both sides S22.43XD Encounter type: subsequent encounter Fracture healing: with routine healing Fracture type: closed Acute kidney injury N17.9 Leukocytosis D72.829 Obstructive sleep apnea G47.33 Chronic diastolic CHF (congestive heart failure) I50.32 Atrial fibrillation I48.91 Atrial fibrillation type: unspecified Elevated troponin R77.8 Diabetes mellitus type 2 in nonobese E11.9 Prostate cancer C61 GERD (gastroesophageal reflux disease) K21.9 DVT prophylaxis Z29.9 (1) Atrial fibrillation Atrial fibrillation type: unspecified Qualified Code(s): I48.91 - Unspecified atrial fibrillation (2) Hematoma of left thigh Encounter type: initial encounter Qualified Code(s): S70.12XA - Contusion of left thigh, initial encounter (3) Fracture of multiple ribs of both sides Encounter type: subsequent encounter Fracture healing: with routine healing Fracture type: closed Qualified Code(s): S22.43XD - Multiple fractures of ribs, bilateral, subsequent encounter for fracture with routine healing
[2020-06-18] MEDS ORDERED: POLYETHYLENE (MIRALAX) 17 GM PACK PO PRN (16:51)
[2020-06-18] MEDS ORDERED: ONDANSETRON INJ 2 MG/ML 2 ML VIAL IV PRN (16:51)
[2020-06-18 20:09] LABS: Hematocrit (blood only) 29.6 % (42-52); Hemoglobin 9.4 g/dL (14.0-18.0)
[2020-06-18] MEDS: ACETAMINOPHEN 325 MG TAB PO SCH (20:09)
[2020-06-18] MEDS: SODIUM CHLORIDE 0.9% 1000ML 1,000 ML IV SCH (20:12)
[2020-06-18] MEDS: LIDOCAINE 5% 1 PATCH TD SCH (20:16)
[2020-06-18] MEDS: FERROUS SULFATE 325 MG TAB PO SCH (20:16)
[2020-06-18] MEDS: METOPROLOL TARTRATE 25 MG TAB PO SCH (20:17)
[2020-06-18] MEDS: SIMVASTATIN 40 MG TAB PO SCH (20:18)
[2020-06-18] MEDS: CYANOCOBALAMIN 500 MCG TABLET (VITAMIN B-12) PO SCH (20:18)
[2020-06-18] MEDS ORDERED: Nursing to Pharmacy Communication SCH (21:00)
--- NOTE | 2020-06-18 22:42 | Electrocardiogram Report ---
Test Reason : Blood Pressure : / mmHG Vent. Rate : 089 BPM Atrial Rate : 089 BPM P-R Int : 244 ms QRS Dur : 140 ms QT Int : 426 ms P-R-T Axes : 078 -89 074 degrees QTc Int : 518 ms Sinus rhythm with 1st degree A-V block Right bundle branch block Left anterior fascicular block Bifascicular block Abnormal ECG When compared with ECG of 04-JUN-2020 19:58, HR has decreased by 35 bpm Confirmed by Yunier Rivero ([id number]) on 06/18/2020 10:42:12 PM Referred By: REFERRED SELF Confirmed By:Yunier Rivero
[2020-06-19] MEDS: SODIUM CHLORIDE 0.9% 1000ML 1,000 ML IV SCH (05:46)
[2020-06-19] MEDS: LEVOTHYROXINE SODIUM 75 MCG TABLET PO SCH (05:47)
[2020-06-19 05:56] LABS: Basophils # (auto) 0.01 K/uL (0-0.2); Basophils % (auto) 0.1 %; Eosinophils # (auto) 0.01 K/uL (0-0.5); Eosinophils % (auto) 0.1 %; Hematocrit (blood only) 28.4 % (42-52); Hemoglobin 8.6 g/dL (14.0-18.0); Immature Granulocytes # (auto) 0.16 K/uL (0.00-0.02); Immature Granulocytes % (auto) 1.1 %; Lymphocytes # (auto) 3.77 K/uL (1.2-3.4); Lymphocytes % (auto) 25.7 %; Mean Corpuscular Hemoglobin 29.1 pg (25-34); Mean Corpuscular Hgb Conc 30.3 g/dL (32-36); Mean Corpuscular Volume 95.9 fL (80-100); Mean Platelet Volume 9.8 fL (7.4-10.4); Monocytes # (auto) 2.57 K/uL (0.11-0.59); Monocytes % (auto) 17.5 %; Neutrophils # (auto) 8.15 K/uL (1.4-6.5); Neutrophils % (auto) 55.5 %; Platelet Count 286 K/uL (130-400); RDW Coefficient of Variation 15.8 % (11.5-14.5); RDW Standard Deviation 55.6 fL (36.4-46.3); Red Blood Count 2.96 M/uL (4.7-6.1); White Blood Count 14.67 K/uL (4.8-10.8)
[2020-06-19 06:33] LABS: Calcium 7.8 mg/dl (8.5-10.1); Creatinine Clr Calc Pharmacy 30.1 ml/min; Est GFR (African American) 37.5; Est GFR (Non-African American) 32.3; Potassium 4.8 mmol/L (3.5-5.1)
[2020-06-19 07:08] LABS: Troponin I 2.58 ng/ml (0-0.045)
[2020-06-19] MEDS: ACETAMINOPHEN 325 MG TAB PO SCH ×4 (08:50→19:44)
[2020-06-19] MEDS: ASCORBIC ACID 500 MG TAB PO SCH (08:54)
[2020-06-19] MEDS: METOPROLOL TARTRATE 25 MG TAB PO SCH ×2 (08:55→20:10)
[2020-06-19] MEDS: ESCITALOPRAM OXALATE 20 MG TAB PO SCH (08:55)
[2020-06-19] MEDS: PANTOprazole 40 MG TAB PO SCH (08:55)
[2020-06-19] MEDS: MULTIVITAMIN TAB PO SCH (08:56)
[2020-06-19] MEDS: FLUTICASONE/VILANTEROL 100/25MCG 14 PUFFS/INHALER INH SCH (08:58)
[2020-06-19] MEDS: UMECLIDINIUM BROMIDE 62.5MCG/BLISTER 7 PUFFS/INHALER INH SCH (08:58)
[2020-06-19] MEDS ORDERED: NON-FORMULARY MEDICATION (Fluticasone-Umeclidin-Vilanter [Trelegy Ellipta] 100-62.5-25 mcg inhalation SCH (09:00)
[2020-06-19] MEDS ORDERED: LIDOCAINE 5% 1 PATCH TD SCH (09:00)
--- NOTE | 2020-06-19 09:18 | Hospitalist Progress Note ---
Date of Service June 19, 2020 Assessment & Plan (1) Recurrent falls: is mostly concerned about his tramadol use. He has been more confused since taking this possibly contributing towards his falls. Discussed all opiates likely to have this side effect more than tramadol and unfortunately not any good options for his pain. Will try to limit use of tramadol. (2) Hematoma of left thigh: Hold Eliquis. Monitor Hgb, serial H&H. POC 6.5 in the ER however repeat lab samples 9.9 and 9.1. (3) Fracture of multiple ribs of both sides: Incentive spirometry Pain relief with MIQUEL acetaminophen/ also ordered lidocaine patches (4) Acute kidney injury: Suspect pre-renal from poor oral intake. NSS 100ml/hr - slow due to his of CHF (5) Leukocytosis: ?secondary to hematoma. No infective source suspect at current time. (6) Obstructive sleep apnea: Intolerant to CPAP. On night time O2 at home. (7) Prostate cancer: (8) Chronic diastolic CHF (congestive heart failure): (9) Atrial fibrillation: Paroxysmal. Not responsive to amiodarone on last admission but he appears to be doing better with digoxin since then. Continue No anticoagulation hold due to hematoma. Given significant recurrence in falls consider discontinuation of this. (10) Elevated troponin: Suspected demand ischemia in setting of multiple falls. No significant increase between two values taken. Troponin elevated to above 2 on repeat, will consult cardiology. May need repeat cath. No chest pain or shortness of breath. (11) DVT prophylaxis: SCDs unlikely to tolerate and patient is high falls risk. No anticoagulation at present time due to hematoma as above. Admission and Anticipated Discharge Date Admission Date: June 18, 2020 Subjective 80 yo male reports having pain on his right lower chest and left lower chest. However it is mainly on the right. He reports pain is dull, 8/10 intensity, nonradiating. D/W nurse, who reports patient was taking fentanyl overnight, however patient wa lethargic when this wa occuring. He is also taking lidocaine patches overnight. Review of Systems Review of Systems: All systems reviewed & are unremarkable except as noted in HPI & below Physical Exam Physical Exam: Constitutional: well developed; + not well nourished and no acute distress Eyes: PERRL, conjunctivae normal, anicteric sclerae ENMT: Ears: no external ear abnormality Nose: no external nose abnormality Neck: trachea midline, no thyromegaly trachea midline Respiratory: normal respiratory effort; no respiratory distress, no labored breathing, no retractions and does not use accessory muscles Auscultation: breath sounds present, no diminished lung sounds and no wheezes Cardiovascular: Rate/Rhythm: regular rate and regular rhythm Heart Sounds: + murmur (Systolic throughout) Vessels: no JVD Extremities: normal capillary refill; no calf tenderness and no pedal edema Gastrointestinal (Abdomen): normal bowel sounds, soft, nontender, no hepatosplenomegaly Musculoskeletal: Large left upper lateral thigh hematoma present without cellulitic changes Skin: no rashes, warm and dry Neurologic: moves all extremities, awake and + confused (Increased from recent admissions I have seen him); no focal motor deficits (No lateralizing) Psychiatric: Orientation: alert and oriented to person; + not oriented to place and + not oriented to time Eye Contact: + fair eye contact Genitourinary: no CVA tenderness Results & Data Results & Data ([facility]) Vital Signs (Past 12 Hours) Vital Signs Temp Pulse Pulse Resp BP Pulse Ox 06/19/20 07:19 37.1 C 76 18 113/66 96 06/19/20 03:00 36.9 C 79 18 117/85 96 06/19/20 00:26 96 H 06/18/20 22:00 37.1 C 93 H 20 101/50 L 93 PG Care Time/CCT Total # of Minutes Spent Total Time Spent with Patient: Total time spent is greater than 50% in coordination of care (as documented) at patient's floor/unit and/or counseling patient: Coding Level of Care Code 35407 Subseq Hosp Care Lvl 3 Diagnoses Recurrent falls R29.6 Hematoma of left thigh S70.12XA Encounter type: initial encounter Fracture of multiple ribs of both sides S22.43XD Encounter type: subsequent encounter Fracture healing: with routine healing Fracture type: closed Acute kidney injury N17.9 Leukocytosis D72.829 Obstructive sleep apnea G47.33 Prostate cancer C61 Chronic diastolic CHF (congestive heart failure) I50.32 Atrial fibrillation I48.91 Atrial fibrillation type: unspecified Elevated troponin R77.8 DVT prophylaxis Z29.9 Time Spent (min) 35 (1) Atrial fibrillation Atrial fibrillation type: unspecified Qualified Code(s): I48.91 - Unspecified atrial fibrillation (2) Hematoma of left thigh Encounter type: initial encounter Qualified Code(s): S70.12XA - Contusion of left thigh, initial encounter (3) Fracture of multiple ribs of both sides Encounter type: subsequent encounter Fracture healing: with routine healing Fracture type: closed Qualified Code(s): S22.43XD - Multiple fractures of ribs, bilateral, subsequent encounter for fracture with routine healing
--- NOTE | 2020-06-19 11:06 | XCELERA ---
[id number]
--- NOTE | 2020-06-19 11:19 | Cardiology Consultation ---
Date of Consultation June 19, 2020 Assessment & Plan (1) Elevated troponin: Echocardiogram today shows new wall motion abnormalities (septum/anteroseptum) compared with last month, indicating that the patient likely had a myocardial infarction during that interim. Although his troponin harsha overnight, he has no anginal type chest discomfort to suggest ongoing infarction or myocardial ischemia and his admission ECG showed no ST deviation. Await repeat ECG today, any changes on this tracing will help better define the timing of his presumed recent infarct. Management is likely to be conservative, since the patient is currently without ischemic symptoms, was previously felt to be a poor candidate for aggressive therapy due to frail general status/multiple comorbidities, and has relatively strong contraindication to intensive antiplatelet therapy or anticoagulation currently with his multiple falls resulting in bilateral rib fractures, large left hip hematoma, and other injuries. The patient is followed by Dr. Christian Hwang, I will be in contact with him for further guidance regarding the aggressiveness of management of this patient's apparent recent myocardial infarction. Meanwhile, antiplatelet/anticoagulation contraindicated, therefore would focus on maintaining his currently optimized hemodynamics by adjusting vasoactive medications as necessary. (2) Chronic diastolic CHF (congestive heart failure): He appears euvolemic currently and does have evidence of a moderate dynamic left ventricular outflow tract obstruction on echocardiogram, therefore would hold diuretics in the absence of symptoms suggestive of congestive heart failure or examination consistent with hypervolemia. (3) Left ventricular outflow tract obstruction: This has been noted intermittently and is not severe. As noted, would be cautious regarding diuretics to avoid worsening his outflow tract obstruction. Continue his metoprolol tartrate 37.5 mg twice daily. (4) Paroxysmal atrial fibrillation: Anticoagulation contraindicated due to falls/hematoma/rib fractures. Likely would permanently hold anticoagulation given its impact on his quality of life with multiple falls sustaining injury. Continue metoprolol and digoxin, since he is prone to recurrent atrial dysrhythmias with a rapid ventricular response. (5) Recurrent falls: (6) Fracture of multiple ribs of both sides: (7) Hematoma of left thigh: History of Present Illness Reason for Consultation: Elevated troponin Requesting Physician: Horacio Rodas Attending Physician: Horacio Rodas History of Present Illness 80-year-old man with complex cardiac and medical history (see below) who has had multiple hospitalizations this year and was admitted yesterday due to recurrent falls with multiple injuries, noted to have rising troponin (2.5) today. He has had recurrent atrial dysrhythmias and was suspected of having underlying coronary artery disease. For details of prior management, see below under past medical history. The patient had been having anginal type chest pain periodically, but conservative management was felt warranted due to the patient's extensive comor bidities and overall frail physical state as well as the self-limited nature of his symptoms (resolved promptly with sublingual nitroglycerin). Yesterday, at the time of admission, he had positional chest pain which was felt related to his bilateral rib fractures. Upon further inquiry today, neither the patient nor his (present at bedside) could recall any specific instances of prolonged substernal chest pain. They did note that he wanted to have periodic substernal chest pain as recently as this past week. At the time of my evaluation this morning, he appeared surprisingly comfortable (given his multiple traumatic injuries) and he denied any substernal chest pain. He did have left sided rib pain, but this was only notable when he took a deep breath or moved, not bothersome at rest. No dyspnea at rest. Rhythm was reported as sinus between 70 and 90 bpm on monitor overnight. ECG yesterday reported sinus rhythm and showed no ST deviation. Past cardiac history (patient is followed by Dr. Christian Hwang): 1. Chronic diastolic heart failure, responsive to low-dose diuretic 2. Atrial dysrhythmias, ablation 2019 for atrial flutter, multiple medications including amiodarone until recently, chronically anticoagulated. 3. Presumed coronary artery disease. Moderate ischemic PDA region abnormality on Lexiscan nuclear study 2019. No prior catheterization. 4. Dynamic left ventricular outflow tract obstruction, never severe, noted periodically on echocardiograms. 5. Hypertension 6. Dyslipidemia Other Past medical history: Dementia, COPD, temporal arteritis, diabetes mellitus, obstructive sleep apnea Allergies Allergy/AdvReac Type Severity Reaction Status Date / Time moxifloxacin Allergy Severe throat Verified 06/18/20 14:50 swelling ofloxacin Allergy Severe SWELLING Verified 06/18/20 14:50 AROUND FACE Quinolones Allergy Severe ANAPHYLAXIS Verified 06/18/20 14:50 formoterol Allergy Intermediate RASH Verified 06/18/20 14:50 Sulfa (Sulfonamide Allergy Intermediate severe red Verified 06/18/20 14:50 Antibiotics) rash Home Medications Home Medications Medication Instructions Recorded Confirmed Type cyanocobalamin (vitamin B-12) 500 mcg PO HS 05/02/19 06/18/20 History [Vitamin B-12] magnesium oxide 500 mg tablet 500 mg PO BID tab 05/07/19 06/18/20 History albuterol sulfate 2.5 mg INH Q4H PRN #360 ml 11/25/19 06/18/20 Rx albuterol sulfate 90 mcg/actuation 2 puffs INH Q4H PRN #8.5 gm 02/11/20 06/18/20 Rx aerosol inhaler simvastatin 80 mg tablet 40 mg PO HS #90 tab 03/03/20 06/18/20 Rx multivitamin with minerals 1 tab PO QAM 03/27/20 06/18/20 History [Multiple Vitamin-Minerals] Lift Chair #1 ea 05/03/20 06/16/20 Rx Lift Chair #1 ea 05/03/20 06/16/20 Rx ascorbic acid (vitamin C) [Vitamin 500 mg PO QAM 05/03/20 06/18/20 History C] escitalopram oxalate 20 mg tablet 20 mg PO QAM #90 tab 05/13/20 06/18/20 Rx insulin glargine 100 unit/mL (3 45 unit SC QAM ml 05/18/20 06/18/20 History mL) subcutaneous pen metformin 1,000 mg tablet 1,000 mg PO BID #180 tab 05/21/20 06/18/20 Rx ferrous sulfate 325 mg PO HS 06/01/20 06/18/20 History omeprazole 40 mg PO QAM 06/01/20 06/18/20 History apixaban [Eliquis] 5 mg PO BID #60 tab 06/11/20 06/18/20 Rx furosemide 40 mg PO DAILY PRN #30 tab 06/11/20 06/18/20 Rx lidocaine 3 patch TRANSDERMAL QAM #60 ea 06/11/20 06/18/20 Rx metoprolol tartrate 37.5 mg PO BID #60 tab 06/11/20 06/18/20 Rx tramadol 50 mg PO Q6H PRN #20 tab 06/11/20 06/18/20 Rx lancets #100 ea 06/17/20 Rx digoxin [Digox] 125 mcg PO QAM 06/18/20 06/18/20 History levothyroxine 75 mcg tablet 37.5 - 75 mcg PO DAILY tab 06/18/20 History Patient History Medical History Anxiety Atrial fibrillation with rapid ventricular response Atrial flutter on xarelto Atrial flutter, paroxysmal Chronic bronchitis Chronic diastolic CHF (congestive heart failure) Coronary arteriosclerosis Depression Diabetes mellitus type 2 in nonobese Fall GERD (gastroesophageal reflux disease) Heart disease IRREGULAR RHYTHYM HTN (hypertension) Iron deficiency anemia Kidney stones Left ventricular outflow tract obstruction prison current use of systemic steroids Mild HOCM (hypertrophic obstructive cardiomyopathy) Multiple fractures of rib involving four or more ribs Nephrolithiasis Obstructive sleep apnea On anticoagulant therapy xarelto daily On home oxygen therapy 2L N/C at hs Organic impotence Pericardial effusion Pleural effusion HX OF Prostate cancer Steroid-induced osteopenia Surgical History H/O cystoscopy "History of Cystoscopy With Insertion Of Ureteral Stent" on CCD H/O tooth extraction History of bronchoscopy History of cardiac radiofrequency ablation History of prostatectomy History of repair of right rotator cuff Hx of colonoscopy Hx of esophagogastroduodenoscopy Family History Skin cancer Mother Ovarian cancer Sister No family history of adverse response to anesthesia Myocardial infarction Mother Grandfather Stroke Denies family history of Prostate cancer Breast cancer Colorectal cancer Social History Smoking Status: Never smoker Second Hand Exposure: No; Hx Alcohol Use: No Hx Substance Use: No Preferred Language: Czech Communication Ability: Effective Visual Impairment: No Limitations Hearing Ability: Use of Hearing Aid 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 Beliefs That Will Affect Care: None marital status: Current Living Situation: Spouse current occupational status: retired Other Information That Helps Us Care for You: No Feels Safe at Home: Yes Childhood Exposure to Second-Hand Smoke: No caffeine: Yes during the past year weight has: remained stable Dental Care, Regularly: No Physical Activity Frequency: Does not Exercise Seatbelt Use: always Sunscreen Use: No Assistive Devices: Denture - Upper, Denture - Lower, Hearing Aid - Left, Hearing Aid - Right and Oxygen - at Night Review of Systems Constitutional: + fatigue; no fever and no chills Eyes: no problem reported Ear, Nose, Mouth, Throat: no problem reported Respiratory: as per Subjective / HPI; no cough Cardiovascular: as per Subjective / HPI Gastrointestinal: no abdominal pain and no change in stools Musculoskeletal: + myalgia Large hematoma left hip/leg Integumentary: + new lesions (Ecchymoses); no rash Neurologic: + falls; no syncope Psychiatric: no problem reported Hematologic / Lymphatic: + easy bruising Physical Exam Physical Exam: Only white man drinking from a milk carton, appears comfortable. Afebrile. Normotensive. Pulse 72 and regular, respirations 18 and unlabored. Skin: Extensive ecchymoses left buttock extending posteriorly below the knee and anteriorly to mid thigh. HEENT: unremarkable. Neck: Jugular venous pulse just above the clavicle, bilateral transmitted murmur to the carotids. Lungs: Limited exam due to decreased excursion (from rib fractures), grossly clear. Cardiac: regular rhythm with 3/6 crescendo decrescendo systolic ejection murmur right upper sternal border rating to the carotids and left sternal border, 2/6 apical holosystolic murmur rating to the axilla. No diastolic murmur or gallop. Chest: Tenderness laterally from rib fractures. Abdomen: Soft, nondistended, mild diffuse tenderness. Extremities: Trace right greater than left pretibial edema, pulses intact. Neurologic: Alert, reticent affect, answers simple questions appropriately, grossly nonfocal. Results & Data ([facility]) Vital Signs (Past 12 Hours) Vital Signs Temp Pulse Pulse Resp BP Pulse Ox 06/19/20 09:39 73 06/19/20 07:19 98.8 F 76 18 113/66 96 06/19/20 03:00 98.4 F 79 18 117/85 96 06/19/20 00:26 96 H Laboratory Results Notable labs include hemoglobin of 8.6, white count of 14.7, normal platelet count. Normal electrolytes, BUN 32, creatinine 1.89. Troponins 0 0.20, 0.22, 2.58. Chest x-ray showed bilateral rib fractures without pneumothorax. Chest CT showed bilateral rib fractures, small left pleural effusion, bibasilar atelectasis. Abdominal CT showed lower thoracic pneumomediastinum, right-sided hemothorax, moderate sized left hip hematoma. Diagnostic Findings ECG yesterday read as sinus rhythm with first-degree AV block at 89 bpm, left anterior fascicular block, right bundle branch block, no ST deviation. Given his prior history of atrial flutter, there is some chance that this rhythm is actually flutter with roughly 3-1 AV block. ECG from today is pending. Echocardiogram today showed hyperdynamic left ventricular systolic function, new wall motion abnormality with septal and anteroseptal moderate to severe hypokinesis, new moderate dynamic left ventricular outflow tract obstruction with moderate mitral regurgitation. PG Care Time/CCT Total # of Minutes Spent Total Time Spent with Patient: Total time spent is greater than 50% in coordination of care (as documented) at patient's floor/unit and/or counseling patient: Coding Level of Care Code 01458 Initial Inpt Care Lvl 3 Diagnoses Elevated troponin R77.8 Chronic diastolic CHF (congestive heart failure) I50.32 Left ventricular outflow tract obstruction Q24.8 Paroxysmal atrial fibrillation I48.0 Recurrent falls R29.6 Fracture of multiple ribs of both sides S22.43XD Encounter type: subsequent encounter Fracture healing: with routine healing Fracture type: closed Hematoma of left thigh S70.12XA Encounter type: initial encounter (1) Fracture of multiple ribs of both sides Encounter type: subsequent encounter Fracture healing: with routine healing Fracture type: closed Qualified Code(s): S22.43XD - Multiple fractures of ribs, bilateral, subsequent encounter for fracture with routine healing (2) Hematoma of left thigh Encounter type: initial encounter Qualified Code(s): S70.12XA - Contusion of left thigh, initial encounter
[2020-06-19] MEDS ORDERED: PHARMACY GLYCEMIC MGMT CONSULT PRN (11:51)
[2020-06-19] MEDS ORDERED: GLUCAGON FOR INJ 1 MG VIAL IM PRN (12:15)
[2020-06-19] MEDS ORDERED: INSULIN GLARGINE SOLOSTAR 100 UNITS/ML 3 ML PEN SC ONE ×2 (12:15)
[2020-06-19] MEDS ORDERED: DEXTROSE 50% 50 ML SYRINGE IV PRN (12:15)
[2020-06-19] MEDS ORDERED: GLUCOSE 40% GEL 15 GM TUBE PO PRN (12:15)
[2020-06-19] MEDS ORDERED: GLUCOSE 10 TABS/TUBE PO PRN (12:15)
[2020-06-19] MEDS ORDERED: INSULIN HUMAN REGULAR PER UNIT 10 UNITS in SYRINGE 9.9 ML IV ONE (12:30)
[2020-06-19] MEDS: INSULIN ASPART 100 UNITS/ML 3 ML PEN SC SCH ×3 (12:34→20:12)
[2020-06-19] MEDS: DIGOXIN 0.125 MG TAB PO SCH (15:07)
[2020-06-19] MEDS: SIMVASTATIN 40 MG TAB PO SCH (20:09)
[2020-06-19] MEDS: CYANOCOBALAMIN 500 MCG TABLET (VITAMIN B-12) PO SCH (20:09)
[2020-06-19] MEDS: FERROUS SULFATE 325 MG TAB PO SCH (20:09)
[2020-06-19] MEDS: LIDOCAINE 5% 1 PATCH TD SCH (20:19)
[2020-06-20] MEDS: LEVOTHYROXINE SODIUM 75 MCG TABLET PO SCH (06:19)
[2020-06-20] MEDS: ACETAMINOPHEN 325 MG TAB PO SCH ×4 (07:49→20:53)
[2020-06-20] MEDS: PANTOprazole 40 MG TAB PO SCH (07:50)
[2020-06-20] MEDS: UMECLIDINIUM BROMIDE 62.5MCG/BLISTER 7 PUFFS/INHALER INH SCH (07:50)
[2020-06-20] MEDS: FLUTICASONE/VILANTEROL 100/25MCG 14 PUFFS/INHALER INH SCH (07:50)
[2020-06-20] MEDS: ESCITALOPRAM OXALATE 20 MG TAB PO SCH (07:51)
[2020-06-20] MEDS: MULTIVITAMIN TAB PO SCH (07:51)
[2020-06-20] MEDS: METOPROLOL TARTRATE 25 MG TAB PO SCH ×2 (07:53→20:55)
[2020-06-20] MEDS: ASCORBIC ACID 500 MG TAB PO SCH (07:53)
[2020-06-20] MEDS: INSULIN ASPART 100 UNITS/ML 3 ML PEN SC SCH ×4 (07:56→20:59)
--- NOTE | 2020-06-20 08:52 | Cardiology Progress Note ---
Date of Service June 20, 2020 Assessment & Plan (1) Recent myocardial infarction: New wall motion abnormality on echocardiogram and age-indeterminate septal infarct on ECG are both new over the past month. However, there was no acute ECG change this hospitalization and the patient did not complain of sustained chest pain to suggest that his current troponin elevation correlates with this infarct. Quite possibly, he infarcted prior to admission or even several weeks ago. Unclear whether he is having post infarct angina or there are additional areas of myocardium at risk (inferior wall was ischemic on a nuclear study last year), but most likely his current troponin elevation is due to supply/demand mismatch. Unfortunately, he is a difficult historian and it is challenging to determine whether the chest discomfort he noted this morning is anginal or skeletal (secondary to his recent trauma). Obtaining ECG to help clarify this. Communicated with Dr. Christian Hwang, he agreed that conservative management is most appropriate in the absence of clear-cut evidence for active infarction or refractory angina. Since antiplatelet/anticoagulation therapy remains contraindicated (recent trauma, marked anemia), the mainstay of therapy is optimizing hemodynamics, in particular controlling his atrial fibrillation to prevent rapid ventricular response. (2) Paroxysmal atrial fibrillation: As noted, he had several transient and one mildly sustained episodes of atrial fibrillation with rapid ventricular response overnight. Would recommend increasing metoprolol to 50 mg twice daily, with hold orders only for heart rate less than 50 or systolic blood pressure less than 90 mm Hg. If he has breakthrough atrial dysrhythmias on increase metoprolol may need to consider restarting amiodarone. He was on this until last week, it seems that it was stopped because he was remaining in atrial flutter, however since he now spends most of his time in sinus it may be worth another try at rhythm control rather than rate control (particularly since anticoagulation is contraindicated). (3) Chronic diastolic CHF (congestive heart failure): He still appears euvolemic and does have moderate dynamic left ventricular outflow tract obstruction, therefore hold diuretics in the absence of overt heart failure or more clear-cut evidence of hypervolemia. (4) Left ventricular outflow tract obstruction: Noted intermittently in the past, has not been severe. As noted, minimizing diuretic use will be helpful. Also, increased metoprolol should be beneficial. (5) Recurrent falls: (6) Fracture of multiple ribs of both sides: (7) Hematoma of left thigh: Admission and Anticipated Discharge Date Admission Date: June 18, 2020 Subjective Clinically stable overnight (per nursing notes). Cardiac monitoring did show several transient episodes of atrial fibrillation with rapid ventricular response (up to 130 bpm) with one longer episode (12 minutes) occurring at 7:19 this morning. Patient was somnolent but arousable. He indicated some central chest discomfort when asked about pain, but this seemed to get worse with a deep breath (he has multiple rib fractures). Difficult historian, nodded yes or no to a few questions but was nonverbal. Did not seem distressed, fell back asleep. Review of Systems Review of Systems: Unobtainable due to cognitive status Physical Exam Physical Exam: Somnolent but arousable, does not appear distressed. Afebrile. Normotensive. Pulse 90 and regular, respirations 18 and unlabored. Skin: Extensive ecchymoses left buttock extending posteriorly below the knee and anteriorly to mid thigh. HEENT: unremarkable. Neck: Jugular venous pulse just above the clavicle, bilateral transmitted murmur to the carotids. Lungs: Limited exam due to decreased excursion (from rib fractures), grossly clear. Cardiac: regular rhythm with 3/6 crescendo decrescendo systolic ejection murmur right upper sternal border rating to the carotids and left sternal border, 4/6 apical holosystolic murmur rating to the axilla. No diastolic murmur or gallop. Chest: Tenderness laterally from rib fractures. Abdomen: Soft, nondistended, mild diffuse tenderness. Extremities: No significant edema, pulses intact. Neurologic: Nods in response to simple questions, otherwise nonverbal, grossly nonfocal. Results & Data ([facility]) Vital Signs (Past 12 Hours) Vital Signs Temp Pulse Pulse Resp BP Pulse Ox 06/20/20 07:11 98.4 F 90 18 120/64 93 06/20/20 03:00 99.0 F 92 H 20 116/62 93 06/19/20 23:29 88 06/19/20 22:42 100.2 F H 84 20 121/65 94 Laboratory Results Fingerstick glucose 220 this morning, no other labs available. Diagnostic Findings ECG yesterday showed sinus rhythm at 68 bpm with first-degree AV block, right bundle branch block, left anterior fascicular block, and age-indeterminate septal infarct. No significant ST deviation seen. Compared with ECG from 06/18/2020, heart rate has decreased by 21 bpm, otherwise no significant change. ECG from today is pending. PG Care Time/CCT Total # of Minutes Spent Total Time Spent with Patient: Total time spent is greater than 50% in coordination of care (as documented) at patient's floor/unit and/or counseling patient: Coding Level of Care Code 67120 Subseq Hosp Care Lvl 3 Diagnoses Recent myocardial infarction Paroxysmal atrial fibrillation I48.0 Chronic diastolic CHF (congestive heart failure) I50.32 Left ventricular outflow tract obstruction Q24.8 Recurrent falls R29.6 Fracture of multiple ribs of both sides S22.43XD Encounter type: subsequent encounter Fracture healing: with routine healing Fracture type: closed Hematoma of left thigh S70.12XA Encounter type: initial encounter (1) Fracture of multiple ribs of both sides Encounter type: subsequent encounter Fracture healing: with routine healing Fracture type: closed Qualified Code(s): S22.43XD - Multiple fractures of ribs, bilateral, subsequent encounter for fracture with routine healing (2) Hematoma of left thigh Encounter type: initial encounter Qualified Code(s): S70.12XA - Contusion of left thigh, initial encounter
[2020-06-20] MEDS ORDERED: INSULIN GLARGINE SOLOSTAR 100 UNITS/ML 3 ML PEN SC SCH (09:00)
[2020-06-20] MEDS ORDERED: traMADol HCL 50 MG TABLET PO PRN (10:19)
--- NOTE | 2020-06-20 11:16 | Electrocardiogram Report ---
Test Reason : Blood Pressure : / mmHG Vent. Rate : 072 BPM Atrial Rate : 072 BPM P-R Int : 282 ms QRS Dur : 134 ms QT Int : 452 ms P-R-T Axes : -28 -80 067 degrees QTc Int : 494 ms Sinus rhythm with 1st degree A-V block Right bundle branch block Left anterior fascicular block Septal infarct (cited on or before 19-JUN-2020) Abnormal ECG When compared with ECG of 19-JUN-2020 12:29, No significant change Confirmed by Igor Jewell ([id number]) on 06/20/2020 11:16:09 AM Referred By: REFERRED SELF Confirmed By:Igor Jewell
--- NOTE | 2020-06-20 11:21 | Electrocardiogram Report ---
Test Reason : Blood Pressure : / mmHG Vent. Rate : 079 BPM Atrial Rate : 079 BPM P-R Int : 252 ms QRS Dur : 134 ms QT Int : 450 ms P-R-T Axes : 011 -82 065 degrees QTc Int : 516 ms Sinus rhythm with 1st degree A-V block with Premature atrial complexes Right bundle branch block Left anterior fascicular block Septal infarct (cited on or before 19-JUN-2020) Abnormal ECG When compared with ECG of 19-JUN-2020 15:34, Premature atrial complexes are now Present Otherwise no significant change Confirmed by Igor Jewell ([id number]) on 06/20/2020 11:20:39 AM Referred By: REFERRED SELF Confirmed By:Igor Jewell
--- NOTE | 2020-06-20 13:59 | Pharmacy Report ---
Glycemic Control Consultation - Date of Service June 20, 2020 - Scope Scope: Glycemic Pharmacist consulted for glycemic control and to write orders per [facility] inpatient glycemic control protocol. - Objective Weight: 75.2 kg Accuchecks BSG (last 24hrs): 06/19/20 06/19/20 06/19/20 15:32 16:55 19:53 POC Glucose 233 H 229 H 178 H 06/20/20 06/20/20 07:33 11:21 POC Glucose 220 H 296 H - Recent Pertinent Medications Outpatient Anti-diabetic Regimen: * Lantus 45 units QAM * Metformin 1000 mg PO BID * A1c = 7.7% on 06/02/20 Yesterday, the patient received, * Basal insulin: Lantus 40 units SQ x1 around noon * Correctional Insulin: Novolog Correction per scale ACHS Goal Range: Low 120 mg/dL - High 150 mg/dL Correction Factor: 15 mg/dL/unit * Prandial insulin: Per carb ratio of 1 unit per 6 grams CHO consumed * Oral Agents: none Risk Factors for Insulin Resistance: * Steroids: none * Infection: no antibiotics * Pressors: none * IVF: none today (NS @ 100ml/hr yesterday) * Diet: T2DM - Assessment & Plan Assessment & Plan: ASSESSMENT: * 80 y/o M admitted with AMS, anemia and PATRICK. Patient with history of Type 2 diabetes managed at home on insulin Lantus and oral Metformin. * Patient received 40 units of basal insulin x1 yesterday around noon and started on Novolog bolus with parameters based on weight and stress factor of 3. * BSGs trended down last night but fasting BSG this AM was elevated above 200. Lantus dose increased this AM. * Pre-lunch BSG continued to be high today, so Novolog parameters were further tightened with lunch. PLAN FOR INPATIENT GLYCEMIC CONTROL: * Holding outpatient oral diabetes medications * Basal insulin: increased * Lantus 45 units SQ QAM * Bolus insulin: tightened * NovoLog per scale ACHS or Q6hrs while NPO. Added 00 and 04 checks * Goal Range: Low 120 mg/dL - High 150 mg/dL * Correction Factor: 10 mg/dL/unit * Nutritional / Prandial insulin per carb ratio of 1 unit per 5 grams CHO consumed * Please note that the plan above was derived based on current level of insulin resistance and hospital stress. These recommendations are appropriate for inpatient admission only. Plan of care upon discharge will need to be reassessed to avoid potential outpatient hypo/hyperglycemia. Thank you.
[2020-06-20] MEDS: DIGOXIN 0.125 MG TAB PO SCH (15:33)
[2020-06-20] MEDS: traMADol HCL 50 MG TABLET PO PRN ×2 (15:34→21:09)
[2020-06-20] MEDS: FERROUS SULFATE 325 MG TAB PO SCH (20:54)
[2020-06-20] MEDS: SIMVASTATIN 40 MG TAB PO SCH (20:57)
[2020-06-20] MEDS: CYANOCOBALAMIN 500 MCG TABLET (VITAMIN B-12) PO SCH (20:58)
[2020-06-20] MEDS: LIDOCAINE 5% 1 PATCH TD SCH (21:15)
[2020-06-21] MEDS: INSULIN ASPART 100 UNITS/ML 3 ML PEN SC SCH ×7 (00:15→20:52)
[2020-06-21] MEDS ORDERED: SODIUM CHLORIDE 0.9% 1000ML 250 ML IV ONE ×2 (02:10→05:55)
[2020-06-21] MEDS: LEVOTHYROXINE SODIUM 75 MCG TABLET PO SCH (05:00)
--- NOTE | 2020-06-21 06:47 | Hospitalist Progress Note ---
Date of Service June 20, 2020 Assessment & Plan (1) Recurrent falls: is mostly concerned about his tramadol use. He has been more confused since taking this possibly contributing towards his falls. Discussed all opiates likely to have this side effect more than tramadol and unfortunately not any good options for his pain. Will try to limit use of tramadol. After discussing with her on 06/20, will continue tramadol but at 25 mg PO PRN. (2) Atrial fibrillation: Paroxysmal flutter/fibrillation. Not responsive to amiodarone on last admission but he appears to be doing better with digoxin since then. Currently has been mainly in sinus today, but having small moments where he goes into a.fib and flutter. Will increase beta morales: to 50 mg PO BID will restart amiodarone tomorrow, if rhythm and rate become worse overnight. Currently appears to be in NSR. Continue digoxin 125 mcg p.o. daily No anticoagulation hold due to hematoma. Given significant recurrence in falls consider discontinuation of this. (3) Hematoma of left thigh: Hold Eliquis. Monitor Hgb, 8.6 hemoglobin on 06/19. will monitor. (4) Fracture of multiple ribs of both sides: Incentive spirometry Pain relief with MIQUEL acetaminophen/ also ordered lidocaine patches (5) Acute kidney injury: Suspect pre-renal from poor oral intake. No obstructive cause on CT. improved (6) Leukocytosis: ?secondary to hematoma. No infective source suspect at current time. (7) Obstructive sleep apnea: Intolerant to CPAP. On night time O2 at home. (8) Prostate cancer: S/p surgery, no radiation of chemotherapy. Not active. (9) Chronic diastolic CHF (congestive heart failure): No acute exacerbation. Hold diuretics in favor of IV fluids given poor oral intake he appears (10) Elevated troponin: Suspected demand ischemia in setting of multiple falls. No significant increase between two values taken. Troponin elevated to above 2 on repeat, will consult cardiology. May need repeat cath. No chest pain or shortness of breath. (11) DVT prophylaxis: SCDs unlikely to tolerate and patient is high falls risk. No anticoagulation at present time due to hematoma as above. Admission and Anticipated Discharge Date Admission Date: June 18, 2020 Subjective 80 yo male reports still having pain. He is a poor historian, his is at bedside would like us to continue with the tramadol but at a lower dose as it appears he tolerated this as an outpatient. Review of Systems Review of Systems: All systems reviewed & are unremarkable except as noted in HPI & below Physical Exam Physical Exam: Constitutional: well developed; + not well nourished and no acute distress Eyes: PERRL, conjunctivae normal, anicteric sclerae ENMT: Ears: no external ear abnormality Nose: no external nose abnormality Neck: trachea midline, no thyromegaly trachea midline Respiratory: normal respiratory effort; no respiratory distress, no labored breathing, no retractions and does not use accessory muscles Auscultation: breath sounds present, no diminished lung sounds and no wheezes Cardiovascular: Rate/Rhythm: regular rate and regular rhythm Heart Sounds: + murmur (Systolic throughout) Vessels: no JVD Extremities: normal capillary refill; no calf tenderness and no pedal edema Gastrointestinal (Abdomen): normal bowel sounds, soft, nontender, no hepatosplenomegaly Musculoskeletal: Large left upper lateral thigh hematoma present without cellulitic changes Skin: no rashes, warm and dry Neurologic: moves all extremities, awake and + confused (Increased from recent admissions I have seen him); no focal motor deficits (No lateralizing) Psychiatric: Orientation: alert and oriented to person; + not oriented to place and + not oriented to time Eye Contact: + fair eye contact Genitourinary: no CVA tenderness Results & Data Results & Data ([facility]) Vital Signs (Past 12 Hours) Vital Signs Temp Pulse Pulse Pulse Resp BP BP 06/21/20 03:28 36.9 C 123 H 26 H 108/72 06/21/20 02:45 36.9 C 121 H 24 102/64 06/21/20 01:52 36.6 C 121 H 26 H 96/56 L 06/20/20 23:49 119 H 06/20/20 23:29 37.0 C 06/20/20 22:19 38.5 C H 118 H 25 H 109/67 06/20/20 19:14 37.5 C 88 20 122/64 Pulse Ox 06/21/20 03:28 96 06/21/20 02:45 97 06/21/20 01:52 95 06/20/20 23:49 06/20/20 23:29 06/20/20 22:19 95 06/20/20 19:14 95 PG Care Time/CCT Total # of Minutes Spent Total Time Spent with Patient: Total time spent is greater than 50% in coordination of care (as documented) at patient's floor/unit and/or counseling patient: Coding Level of Care Code 35257 Subseq Hosp Care Lvl 3 Diagnoses Recurrent falls R29.6 Atrial fibrillation I48.91 Atrial fibrillation type: unspecified Hematoma of left thigh S70.12XA Encounter type: initial encounter Fracture of multiple ribs of both sides S22.43XD Encounter type: subsequent encounter Fracture healing: with routine healing Fracture type: closed Acute kidney injury N17.9 Leukocytosis D72.829 Obstructive sleep apnea G47.33 Prostate cancer C61 Chronic diastolic CHF (congestive heart failure) I50.32 Elevated troponin R77.8 DVT prophylaxis Z29.9 Time Spent (min) 35 (1) Hematoma of left thigh Encounter type: initial encounter Qualified Code(s): S70.12XA - Contusion of left thigh, initial encounter (2) Fracture of multiple ribs of both sides Encounter type: subsequent encounter Fracture healing: with routine healing Fracture type: closed Qualified Code(s): S22.43XD - Multiple fractures of ribs, bilateral, subsequent encounter for fracture with routine healing (3) Atrial fibrillation Atrial fibrillation type: unspecified Qualified Code(s): I48.91 - Unspecified atrial fibrillation
[2020-06-21 07:44] LABS: Hematocrit (blood only) 24.6 % (42-52); Hemoglobin 7.7 g/dL (14.0-18.0); Mean Corpuscular Hemoglobin 29.8 pg (25-34); Mean Corpuscular Hgb Conc 31.3 g/dL (32-36); Mean Corpuscular Volume 95.3 fL (80-100); Mean Platelet Volume 9.8 fL (7.4-10.4); Platelet Count 263 K/uL (130-400); RDW Coefficient of Variation 15.8 % (11.5-14.5); RDW Standard Deviation 55.4 fL (36.4-46.3); Red Blood Count 2.58 M/uL (4.7-6.1); White Blood Count 14.05 K/uL (4.8-10.8)
--- NOTE | 2020-06-21 07:49 | Hospitalist Progress Note ---
Date of Service June 21, 2020 Assessment & Plan (1) Acute respiratory failure with hypoxia: Likely multifactorial including hypoventilation/splinting from numerous b/l rib fractures and now suspected pneumonia. Did have small hemothorax on right during last hospital stay but unlikely cont ributing to current symptoms. He had fever overnight with worsening respiratory status. Chest x-ray without obvious pneumonia but will cover for such given his current condition. At risk of gram negatives -- thus, will utilize cefepime IV. COVID-19 PCR negative. (2) SIRS (systemic inflammatory response syndrome): SIRS/probable early sepsis 2nd to pneumonia and/or UTI. Follow urine cx. Cefepime initiated today. (3) Metabolic encephalopathy: Likely metabolic from infectious issues. Can't rule out toxic effects from tramadol. reporting intolerance to such thus will stop tramadol. (4) NSTEMI (non-ST elevated myocardial infarction): Troponin harsha further today to 5.66. Recent echo with several wall motion abnormalities. Appreciate cardiology consult/recommendations. Cont statin and beta morales. Aspirin and anticoagulation on hold due to thigh hematoma, recent right-sided hemothorax, etc. Poor candidate for any invasive testing. (5) Atrial flutter, paroxysmal: Ongoing issues with such. Was problematic for him during prior hospital stay as well. Remains on digoxin and beta morales. Amiodarone added back this admission. Now on 200mg BID. Appreciate cardiology assistance. Anticoagulation on hold as noted below. (6) Fracture of multiple ribs of both sides: Recent hospital stay for right-sided fractures 2nd to fall. Now with multiple left-sided fractures also 2nd to fall. Cont pain control -- tylenol scheduled; lidoderm patches; dilaudid in mckenna of tramadol; toradol prn. (7) Pneumothorax: 2nd to rib fractures. Left-sided. Tiny. Continue NC O2. (8) Pneumomediastinum: 2nd to recent trauma. Small. Seen on recent imaging. (9) Chronic diastolic CHF (congestive heart failure): Euvolemic/compensated. Holding lasix. (10) Hematoma of left thigh: 2nd to trauma. aspirin/eliquis both on hold. with resulting acute blood loss anemia. see below. (11) Urinary retention: s/p aldana placement today. urine cx sent. (12) Acute blood loss anemia: significant drop from 11.2 on 10/23/20 to 8 today. 2nd to left thigh hematoma, blood draws, etc. cbc in am. Tx level is likely anything less than 8 in light of NSTEMI and other cardiopulmonary issues. (13) Diabetes: appreciate pharmacy assistance. cont basal-bolus regimen. (14) Hypothyroidism: TSH 04/2020 wnl. Cont synthroid. (15) Chronic bronchitis: Cont home inhalers. Not in exacerbation. (16) DVT prophylaxis: chemical means on hold due to left-sided thigh hematoma. SCDs only. updated twice at bedside today. discussed care w/ cardiology. prognosis guarded. Admission and Anticipated Discharge Date Admission Date: June 18, 2020 Subjective patient very somnolent yesterday, overnight and then again this am. at bedside. she reports confusion and very little appetite. he has been moaning in pain from left-sided rib fractures. tele with rapid a.flutter, rates in the 110s. no substernal pain. last bowel movement? staff report urinary retention and need for aldana insertion this afternoon (had 900cc). continues with NC O2 requirement and some cough. Review of Systems Review of Systems: Unobtainable due to cognitive status Physical Exam Constitutional: + acute distress (due to left-sided rib pain ), + ill appearing, + altered mental status and + frail appearing ENMT: external ear and nose normal, oropharynx normal Respiratory: no respiratory distress Auscultation: + diminished lung sounds (right base) and + crackles (b/l bases ); no wheezes Cardiovascular: Rate/Rhythm: regular rhythm and + tachycardic Heart Sounds: normal S1 and normal S2 Vessels: posterior tibial pulses present and dorsalis pedis pulses present; no JVD Extremities: no edema Chest (Breasts): Additional Comments: tender to palpation over left chest wall Gastrointestinal (Abdomen): Inspection/Auscultation: + abdomen distended and normal bowel sounds Percussion/Palpation: + abdomen tender (LUQ ); no guarding and no hepatosplenomegaly Skin: + pallor Psychiatric: Orientation: + not alert and + not oriented x 3 Results & Data Results & Data ([facility]) Vital Signs (Past 12 Hours) Vital Signs Temp Pulse Pulse Pulse Resp BP BP 06/21/20 07:37 36.7 C 125 H 20 97/64 L 06/21/20 03:28 36.9 C 123 H 26 H 108/72 06/21/20 02:45 36.9 C 121 H 24 102/64 06/21/20 01:52 36.6 C 121 H 26 H 96/56 L 06/20/20 23:49 119 H 06/20/20 23:29 37.0 C 06/20/20 22:19 38.5 C H 118 H 25 H 109/67 Pulse Ox 06/21/20 07:37 95 06/21/20 03:28 96 06/21/20 02:45 97 06/21/20 01:52 95 06/20/20 23:49 06/20/20 23:29 06/20/20 22:19 95 Laboratory Results Laboratory Results - last 24 hr 06/20/20 06/20/20 06/20/20 11:21 16:36 20:23 WBC RBC Hgb Hct MCV MCH MCHC RDW Std Deviation RDW Coeff of Ruddy Plt Count MPV Sodium Potassium Chloride Carbon Dioxide Anion Gap BUN Creatinine Est Cr Clr Drug Dosing Est GFR ( Amer) Est GFR (Non-Af Amer) BUN/Creatinine Ratio Glucose POC Glucose 296 H 222 H 111 H Calcium 06/21/20 06/21/20 06/21/20 00:00 03:59 07:00 WBC 14.05 H RBC 2.58 L Hgb 7.7 L Hct 24.6 L MCV 95.3 MCH 29.8 MCHC 31.3 L RDW Std Deviation 55.4 H RDW Coeff of Ruddy 15.8 H Plt Count 263 MPV 9.8 Sodium Potassium Chloride Carbon Dioxide Anion Gap BUN Creatinine Est Cr Clr Drug Dosing Est GFR ( Amer) Est GFR (Non-Af Amer) BUN/Creatinine Ratio Glucose POC Glucose 131 H 180 H Calcium 06/21/20 06/21/20 07:00 07:25 WBC RBC Hgb Hct MCV MCH MCHC RDW Std Deviation RDW Coeff of Ruddy Plt Count MPV Sodium Pending Potassium Pending Chloride Pending Carbon Dioxide Pending Anion Gap Pending BUN Pending Creatinine Pending Est Cr Clr Drug Dosing Pending Est GFR ( Amer) Pending Est GFR (Non-Af Amer) Pending BUN/Creatinine Ratio Pending Glucose Pending POC Glucose 197 H Calcium Pending PG Care Time/CCT Total # of Minutes Spent Total Time Spent with Patient: Total time spent is greater than 50% in coordination of care (as documented) at patient's floor/unit and/or counseling patient: Coding Level of Care Code 46263 Subseq Hosp Care Lvl 3 Diagnoses Acute respiratory failure with hypoxia J96.01 SIRS (systemic inflammatory response syndrome) R65.10 Metabolic encephalopathy G93.41 NSTEMI (non-ST elevated myocardial infarction) I21.4 Atrial flutter, paroxysmal I48.92 Fracture of multiple ribs of both sides S22.43XD Encounter type: subsequent encounter Fracture healing: with routine healing Fracture type: closed Pneumothorax J93.9 Pneumothorax type: unspecified pneumothorax Pneumomediastinum J98.2 Chronic diastolic CHF (congestive heart failure) I50.32 Hematoma of left thigh S70.12XA Encounter type: initial encounter Urinary retention R33.9 Acute blood loss anemia D62 Diabetes E11.69; Z79.4 Diabetes mellitus type: type 2 Diabetes mellitus assistant terminal manager insulin use: with assistant terminal manager use Diabetes mellitus complication status: with other specified complication Hypothyroidism E03.9 Hypothyroidism type: acquired Chronic bronchitis J42 Chronic bronchitis type: unspecified DVT prophylaxis Z29.9 (1) Fracture of multiple ribs of both sides Encounter type: subsequent encounter Fracture healing: with routine healing Fracture type: closed Qualified Code(s): S22.43XD - Multiple fractures of ribs, bilateral, subsequent encounter for fracture with routine healing (2) Pneumothorax Pneumothorax type: unspecified pneumothorax Qualified Code(s): J93.9 - Pneumothorax, unspecified (3) Hematoma of left thigh Encounter type: initial encounter Qualified Code(s): S70.12XA - Contusion of left thigh, initial encounter (4) Diabetes Diabetes mellitus type: type 2 Diabetes mellitus senior care insulin use: with senior care use Diabetes mellitus complication status: with other specified complication Qualified Code(s): E11.69 - Type 2 diabetes mellitus with other specified complication; Z79.4 - parts counterman (current) use of insulin (5) Hypothyroidism Hypothyroidism type: acquired Qualified Code(s): E03.9 - Hypothyroidism, unspecified (6) Chronic bronchitis Chronic bronchitis type: unspecified Qualified Code(s): J42 - Unspecified chronic bronchitis
[2020-06-21 08:04] LABS: Hematocrit (blood only) 25.2 % (42-52); Mean Corpuscular Hemoglobin 30.3 pg (25-34); Mean Corpuscular Hgb Conc 31.7 g/dL (32-36); Mean Corpuscular Volume 95.5 fL (80-100); Mean Platelet Volume 9.5 fL (7.4-10.4); Platelet Count 246 K/uL (130-400); RDW Coefficient of Variation 15.9 % (11.5-14.5); Red Blood Count 2.64 M/uL (4.7-6.1)
[2020-06-21 08:11] LABS: Calcium 8.3 mg/dl (8.5-10.1); Creatinine Clr Calc Pharmacy 44.8 ml/min; Est GFR (African American) 60.6; Est GFR (Non-African American) 52.3; Potassium 4.4 mmol/L (3.5-5.1)
[2020-06-21 08:13] LABS: Base Excess VBG 0.3 mEq/L; Oxygen Saturation VBG 68.7 %; pH VBG 7.41 (7.36-7.41)
[2020-06-21 08:36] LABS: Basophils # (auto) 0.02 K/uL (0-0.2); Basophils % (auto) 0.2 %; Eosinophils # (auto) 0.04 K/uL (0-0.5); Eosinophils % (auto) 0.3 %; Immature Granulocytes # (auto) 0.06 K/uL (0.00-0.02); Immature Granulocytes % (auto) 0.5 %; Lymphocytes # (auto) 5.31 K/uL (1.2-3.4); Lymphocytes % (auto) 39.9 %; Monocytes # (auto) 1.66 K/uL (0.11-0.59); Monocytes % (auto) 12.5 %; Neutrophils # (auto) 6.21 K/uL (1.4-6.5); Neutrophils % (auto) 46.6 %
[2020-06-21 08:38] LABS: BUN Creatinine Ratio 25.5 (10-20); Calcium 8.4 mg/dl (8.5-10.1); Creatinine Clr Calc Pharmacy 44.8 ml/min; Est GFR (African American) 60.6; Est GFR (Non-African American) 52.3; Potassium 4.5 mmol/L (3.5-5.1)
[2020-06-21 08:47] LABS: Albumin Globulin Ratio 0.5 (0.9-2); Bilirubin,Total 0.7 mg/dl (0.2-1); Globulin 4.4 gm/dl (2.5-4.0); Total Protein 6.4 gm/dl (6.4-8.2); Troponin I 5.66 ng/ml (0-0.045)
--- NOTE | 2020-06-21 09:06 | XRay Report ---
SINGLE VIEW CHEST CLINICAL HISTORY: Fever. Bilateral rib fractures. FINDINGS: An AP, portable, upright chest radiograph is compared to chest x-ray and chest CT dated . The heart is enlarged noting atherosclerotic calcification of the thoracic aorta. The pulmon ari vasculature is noncongested. There are small pleural effusions with bibasilar atelectasis. Foci o f parenchymal scarring are seen throughout both lungs. No airspace consolidation is seen typical for pneumonia. No skeletal structures are osteopenic. The bony thorax is grossly intact. Again seen are b ilateral rib fractures. These were better assessed on the recent chest CT. IMPRESSION: 1. Cardiomegaly without radiographic evidence of congestive failure. 2. Small pleural effusions. 3. Bilateral rib fractures are again noted. ACT 112: Negative or not required by law. Electronically signed by: Fausto Donovan M.D. 06/21/2020 9:05 AM
[2020-06-21] MEDS: AMIODARONE 200 MG TAB PO SCH ×2 (09:07→17:18)
[2020-06-21] MEDS: traMADol HCL 50 MG TABLET PO PRN (09:07)
[2020-06-21] MEDS: ASCORBIC ACID 500 MG TAB PO SCH (09:08)
[2020-06-21] MEDS: ESCITALOPRAM OXALATE 20 MG TAB PO SCH (09:08)
[2020-06-21] MEDS: PANTOprazole 40 MG TAB PO SCH (09:09)
[2020-06-21] MEDS: MULTIVITAMIN TAB PO SCH (09:09)
[2020-06-21] MEDS: ACETAMINOPHEN 325 MG TAB PO SCH ×4 (09:09→21:11)
[2020-06-21] MEDS: METOPROLOL TARTRATE 50 MG TAB PO SCH ×2 (09:10→20:51)
[2020-06-21] MEDS: UMECLIDINIUM BROMIDE 62.5MCG/BLISTER 7 PUFFS/INHALER INH SCH (09:10)
[2020-06-21] MEDS: FLUTICASONE/VILANTEROL 100/25MCG 14 PUFFS/INHALER INH SCH (09:10)
[2020-06-21] MEDS: INSULIN GLARGINE SOLOSTAR 100 UNITS/ML 3 ML PEN SC SCH (09:11)
--- NOTE | 2020-06-21 10:41 | Pharmacy Report ---
Pharmacy Glycemic Short Note 2 - Date of Service June 21, 2020 - Glycemic Short BSG Results (Last 24 hours): 06/20/20 06/20/20 06/20/20 11:21 16:36 20:23 Glucose POC Glucose 296 H 222 H 111 H 06/21/20 06/21/20 06/21/20 00:00 03:59 07:00 Glucose 157 H POC Glucose 131 H 180 H 06/21/20 06/21/20 07:25 07:57 Glucose 158 H POC Glucose 197 H Outpatient Anti-diabetic Regimen: * Lantus 45 units SC QAM * Metformin 1000 mg PO BID * A1c = 7.7% on 06/02/20 The patient is current receiving * Basal insulin: Lantus 45 units SQ qAM * Correctional Insulin: Novolog Correction per scale ACHS Goal Range: Low 120 mg/dL - High 150 mg/dL Correction Factor: 10 mg/dL/unit * Prandial insulin: Per carb ratio of 1 unit per 5 grams CHO consumed * Oral Agents: none Risk Factors for Insulin Resistance: * Diet: T2DM ASSESSMENT: 06/21/20 * Stressors stable * Post-prandial BSG's gradually trended down yesterday after tightened Novolog parameters - keep the same today, unless >180 mg/dL x2 * AM fasting BSG still elevated - will continue to increase Lantus 06/20/20 * 80 y/o M admitted with AMS, anemia and PATRICK. Patient with history of Type 2 diabetes managed at home on insulin Lantus and oral Metformin. * Patient received 40 units of basal insulin x1 yesterday around noon and started on Novolog bolus with parameters based on weight and stress factor of 3. * BSGs trended down last night but fasting BSG this AM was elevated above 200. Lantus dose increased this AM. * Pre-lunch BSG continued to be high today, so Novolog parameters were further tightened with lunch. PLAN FOR INPATIENT GLYCEMIC CONTROL: * Hold outpatient oral diabetes medications * Basal insulin * Lantus 50 units SQ qAM. Additional 0-10 units tonight, depending on BSG. See MAR for details. * Bolus insulin * NovoLog per scale ACHS or Q6hrs while NPO * Goal Range: Low 120 mg/dL - High 150 mg/dL * Correction Factor: 10 mg/dL/unit * Nutritional / Prandial insulin per carb ratio of 1 unit per 5 grams CHO consumed
--- NOTE | 2020-06-21 11:23 | Electrocardiogram Report ---
Test Reason : Blood Pressure : / mmHG Vent. Rate : 122 BPM Atrial Rate : 133 BPM P-R Int : 000 ms QRS Dur : 138 ms QT Int : 390 ms P-R-T Axes : 000 -84 054 degrees QTc Int : 555 ms Sinus tachycardia Right bundle branch block Left anterior fascicular block Bifascicular block Anteroseptal infarct , age undetermined Abnormal ECG When compared with ECG of 20-JUN-2020 09:01, Vent. rate has increased BY 43 BPM Confirmed by Artis Sorenson ([id number]) on 06/21/2020 11:23:00 AM Referred By: REFERRED SELF Confirmed By:Michael Sorenson
[2020-06-21] MEDS ORDERED: bisacodyL 10 MG SUPP PR ONE (11:24)
[2020-06-21] MEDS: CEFEPIME 2,000 MG in SYRINGE 0 ML IV SCH (13:07)
[2020-06-21] MEDS: HYDROmorphone INJ 0.5 MG/0.5 ML SYR IV PRN ×2 (13:07→17:19)
[2020-06-21 13:49] LABS: Appearance Urine Clear (Clear); Bacteria Urine Automated 2+ (Negative); Bilirubin Urine Negative (Negative); Blood Urine Negative (Negative); Color Urine Dark Yellow; Epithelial Cell Urine Auto >30 /lpf (0-5); Glucose Urine UA Negative (Negative); Ketones Urine 1+ (Negative); Leukocyte Esterase Urine Trace (Negative); Nitrite Urine Negative (Negative); Protein Urine 1+ (Negative); RBC Urine Automated 0-4 /hpf (0-4); Specific Gravity Urine 1.029 (1.000-1.030); Urobilinogen Urine Negative (Negative)
[2020-06-21 14:04] LABS: Mucus Urine Present (None Prsent)
--- NOTE | 2020-06-21 14:31 | Cardiology Progress Note ---
Date of Service June 21, 2020 Assessment & Plan (1) Elevated troponin: 2. Paroxysmal atrial fibrillation/flutter 3. Recurrent falls with rib fractures, left leg hematoma 4. Chronic diastolic heart failure 5. LVOT 6. Anemia 7. COPD/obstructive sleep apnea 8. Type 2 diabetes 9. Dementia/Frailty 10. Resolved PATRICK 11. Fever Patient hemodynamically stable and angina free. Appears well-perfused with minimal lower extremity edema but no significant systemic venous congestion Tachycardic today and looks to be in atypical atrial flutter again with heart rates in the 110-120s Repeat troponin elevated today and may represent true ACS event. Would continue to manage conservatively. With current clinical situation very unlikely that revascularization would change prognosis or improve symptoms. Has been in and out of atrial flutter over recent hospitalizations but has tolerated well in the past. Would continue to favor rate control. Not ideal but okay with current heart rates in the 110s to 120s. No indication for more urgent cardioversion and will attempt to avoid with inability to anticoagulate. Addition of amiodarone is fine although have had limited success with rhythm maintenance previously. May have more success with 200 twice daily. Trend troponin until peaks Continue metoprolol 50 mg twice daily, continue digoxin and twice daily amiodarone Continue to hold diuretics Hold aspirin. Consider trying low-dose ASA at some point when blood count stable No plans to restart long-term anticoagulation We will continue to follow. Admission and Anticipated Discharge Date Admission Date: June 18, 2020 Subjective Patient sleeping comfortably. Reports left greater than right flank pain primarily with movement. Denies substernal chest pain. Denies significant shortness of breath. Review of Systems Review of Systems: Unobtainable due to cognitive status Physical Exam Physical Exam: General: Comfortable, no acute distress HEENT: Sclerae anicteric, mucous membranes moist Lungs: Clear to auscultation bilaterally Cardiac: Tachycardic, regular, 3 out of 6 systolic ejection murmur at left sternal border Abdomen: Soft, nontender, nondistended, positive bowel sounds. Extremities: Warm, well perfused, trace lower extremity edema bilaterally Skin: No rashes or lesions. Neuro: Nonfocal Psych: Alert orient x3, normal affect and mood Results & Data ([facility]) Vital Signs (Past 12 Hours) Vital Signs Temp Pulse Pulse Resp BP BP Pulse Ox 06/21/20 11:19 97.9 F 116 H 20 94/58 L 95 06/21/20 07:37 98.1 F 125 H 20 97/64 L 95 06/21/20 03:28 98.4 F 123 H 26 H 108/72 96 06/21/20 02:45 98.4 F 121 H 24 102/64 97 PG Care Time/CCT Total # of Minutes Spent Total Time Spent with Patient: Total time spent is greater than 50% in coordination of care (as documented) at patient's floor/unit and/or counseling patient: Coding Level of Care Code 44983 Subseq Hosp Care Lvl 3 Diagnoses Elevated troponin R77.8
[2020-06-21] MEDS: DIGOXIN 0.125 MG TAB PO SCH (17:18)
[2020-06-21] MEDS: LIDOCAINE 5% 1 PATCH TD SCH (20:48)
[2020-06-21] MEDS: CYANOCOBALAMIN 500 MCG TABLET (VITAMIN B-12) PO SCH (20:51)
[2020-06-21] MEDS: SIMVASTATIN 40 MG TAB PO SCH (20:52)
[2020-06-21] MEDS ORDERED: INSULIN GLARGINE SOLOSTAR 100 UNITS/ML 3 ML PEN SC SCH (21:00)
[2020-06-21] MEDS: FERROUS SULFATE 325 MG TAB PO SCH (21:31)
[2020-06-22] MEDS: CEFEPIME 2,000 MG in SYRINGE 0 ML IV SCH ×3 (00:45→23:54)
[2020-06-22] MEDS ORDERED: INSULIN ASPART 100 UNITS/ML 3 ML PEN SC ONE (02:00)
[2020-06-22] MEDS: HYDROmorphone INJ 0.5 MG/0.5 ML SYR IV PRN ×5 (02:53→20:51)
[2020-06-22] MEDS: LEVOTHYROXINE SODIUM 75 MCG TABLET PO SCH (06:05)
[2020-06-22 07:22] LABS: Hematocrit (blood only) 26.5 % (42-52); Hemoglobin 7.8 g/dL (14.0-18.0); Mean Corpuscular Hemoglobin 28.4 pg (25-34); Mean Corpuscular Hgb Conc 29.4 g/dL (32-36); Mean Corpuscular Volume 96.4 fL (80-100); Mean Platelet Volume 10.1 fL (7.4-10.4); Platelet Count 305 K/uL (130-400); RDW Coefficient of Variation 15.7 % (11.5-14.5); RDW Standard Deviation 55.1 fL (36.4-46.3); Red Blood Count 2.75 M/uL (4.7-6.1); White Blood Count 12.61 K/uL (4.8-10.8)
[2020-06-22 07:32] LABS: Calcium 8.9 mg/dl (8.5-10.1); Creatinine Clr Calc Pharmacy 38.7 ml/min; Est GFR (African American) 50.8; Est GFR (Non-African American) 43.8
[2020-06-22] MEDS: MULTIVITAMIN TAB PO SCH (07:52)
[2020-06-22] MEDS: ESCITALOPRAM OXALATE 20 MG TAB PO SCH (07:52)
[2020-06-22] MEDS: ACETAMINOPHEN 325 MG TAB PO SCH ×4 (07:52→20:34)
[2020-06-22] MEDS: FERROUS SULFATE 325 MG TAB PO SCH (07:52)
[2020-06-22] MEDS: ASCORBIC ACID 500 MG TAB PO SCH (07:52)
[2020-06-22] MEDS: PANTOprazole 40 MG TAB PO SCH (07:52)
[2020-06-22] MEDS: FLUTICASONE/VILANTEROL 100/25MCG 14 PUFFS/INHALER INH SCH (07:53)
[2020-06-22] MEDS: INSULIN ASPART 100 UNITS/ML 3 ML PEN SC SCH ×4 (07:54→20:43)
[2020-06-22] MEDS: METOPROLOL TARTRATE 50 MG TAB PO SCH ×2 (07:54→20:38)
[2020-06-22] MEDS: UMECLIDINIUM BROMIDE 62.5MCG/BLISTER 7 PUFFS/INHALER INH SCH (07:54)
[2020-06-22] MEDS: INSULIN GLARGINE SOLOSTAR 100 UNITS/ML 3 ML PEN SC SCH (07:57)
[2020-06-22] MEDS: AMIODARONE 200 MG TAB PO SCH ×2 (09:10→16:35)
[2020-06-22] MEDS ORDERED: SODIUM CHLORIDE 0.9% 500 ML IV SCH (11:00)
--- NOTE | 2020-06-22 12:36 | Pharmacy Report ---
Pharmacy Glycemic Short Note 2 - Date of Service June 22, 2020 - Glycemic Short BSG Results (Last 24 hours): 06/21/20 06/21/20 06/22/20 16:41 20:35 03:00 Glucose POC Glucose 128 H 146 H 109 H 06/22/20 06/22/20 06/22/20 06:07 07:36 11:18 Glucose 92 POC Glucose 126 H 262 H Outpatient Anti-diabetic Regimen: * Lantus 45 units SC QAM * Metformin 1000 mg PO BID * A1c = 7.7% on 06/02/20 Risk Factors for Insulin Resistance: * Diet: T2DM ASSESSMENT: 06/22/20 * Stressors stable * BSG's with notable increase breakfast to lunch - per Valorie (RN), patient's is bringing in snacks to supplement breakfast as patient is not awake enough in AM. Valorie asked to let her know so these could be covered. * Per Valorie - patient also consumed more CHO w lunch than 60 g (charted) which is why Novolog dose was higher than anticipated (to accommodate additional CHO consumed) * No change to glycemic regimen as increase is due to snacking and not inadequacy of parameters 06/21/20 * Stressors stable * Post-prandial BSG's gradually trended down yesterday after tightened Novolog parameters - keep the same today, unless >180 mg/dL x2 * AM fasting BSG still elevated - will continue to increase Lantus 06/20/20 * 80 y/o M admitted with AMS, anemia and PATRICK. Patient with history of Type 2 diabetes managed at home on insulin Lantus and oral Metformin. * Patient received 40 units of basal insulin x1 yesterday around noon and started on Novolog bolus with parameters based on weight and stress factor of 3. * BSGs trended down last night but fasting BSG this AM was elevated above 200. Lantus dose increased this AM. * Pre-lunch BSG continued to be high today, so Novolog parameters were further tightened with lunch. PLAN FOR INPATIENT GLYCEMIC CONTROL: * Hold outpatient oral diabetes medications * Basal insulin * Lantus 50 units SQ qAM * Bolus insulin * NovoLog per scale ACHS or Q6hrs while NPO * Goal Range: Low 120 mg/dL - High 150 mg/dL * Correction Factor: 10 mg/dL/unit * Nutritional / Prandial insulin per carb ratio of 1 unit per 5 grams CHO consumed
--- NOTE | 2020-06-22 13:40 | Cardiology Progress Note ---
Date of Service June 22, 2020 Assessment & Plan (1) Elevated troponin: 2. Paroxysmal atrial fibrillation/flutter 3. Recurrent falls with rib fractures, left leg hematoma 4. Chronic diastolic heart failure 5. LVOT 6. Anemia 7. COPD/obstructive sleep apnea 8. Type 2 diabetes 9. Dementia/delirium 10. Resolved PATRICK 11. Fever More confused overnight Hemodynamically stable and angina free. Appears well-perfused without signs of heart failure Remains in atypical flutter with heart rates 110-120s Troponin has peaked. No plans for further ischemic evaluation or cardioversion Current heart rate acceptable and would continue current metoprolol, digoxin, amiodarone. Repeat digoxin level in the morning Continue to hold diuretics No plans for long-term anticoagulation Hold aspirin. Consider trying low-dose ASA at some point when blood count stable Admission and Anticipated Discharge Date Admission Date: June 18, 2020 Subjective Patient states he had a rough night. Per nursing was confused and thought he was an elevator and grabbed his neighbors IV pole. Today patient knows he is in the hospital and year. Continues to endorse left rib pain with any movement. States breathing somewhat more limited. Telemetry reviewedpersistent atypical flutter with heart rate around 120 Review of Systems Review of Systems: Unobtainable due to cognitive status Physical Exam Physical Exam: General: Comfortable, no acute distress HEENT: Sclerae anicteric, mucous membranes moist Lungs: Clear to auscultation bilaterally Cardiac: Tachycardic, regular, 3 out of 6 systolic ejection murmur at left sternal border Abdomen: Soft, nontender, nondistended, positive bowel sounds. Extremities: Warm, well perfused, trace lower extremity edema bilaterally Skin: No rashes or lesions. Neuro: Nonfocal Psych: Alert orient x3, normal affect and mood Results & Data ([facility]) Vital Signs (Past 12 Hours) Vital Signs Temp Pulse Pulse Resp BP BP Pulse Ox 06/22/20 11:02 98.1 F 118 H 20 95/63 L 93 06/22/20 08:00 98.2 F 119 H 20 100/64 96 06/22/20 04:00 98.6 F 120 H 18 111/68 95 PG Care Time/CCT Total # of Minutes Spent Total Time Spent with Patient: Total time spent is greater than 50% in coordination of care (as documented) at patient's floor/unit and/or counseling patient: Coding Level of Care Code 46971 Subseq Hosp Care Lvl 3 Diagnoses Elevated troponin R77.8
[2020-06-22] MEDS: DIGOXIN 0.125 MG TAB PO SCH (16:36)
--- NOTE | 2020-06-22 18:48 | Hospitalist Progress Note ---
Date of Service June 22, 2020 Assessment & Plan (1) Acute respiratory failure with hypoxia: Ongoing. Multifactorial including hypoventilation/splinting from numerous b/l rib fractures and now suspected pneumonia. Did have small hemothorax on right during last hospital stay but unlikely co ntributing to current symptoms. Has tiny pneumothorax - most recent cxr w/o any increase. Cont IV cefepime to cover for possible pneumonia and UTI. Remains euvolemic - likely a bit dry today - from CHF standpoint. IN fact will give additional IV fluids today. COVID-19 PCR negative. (2) SIRS (systemic inflammatory response syndrome): SIRS/probable early sepsis 2nd to pneumonia and/or UTI. Follow urine cx. Cefepime day #2. COVID negative. (3) Metabolic encephalopathy: Likely metabolic from infectious issues. Can't rule out toxic effects from pain meds. I cannot rule out recurrent strokes in setting of being off his usual anticoagulation. Head CT neg this admission. Ideally we obtain MRI, but gallo need to be removed prior. Earliest we can do MRI is , 06/24, once gallo are out. Cannot rule out concussion from recent head injury as well contributing to mental status. (4) NSTEMI (non-ST elevated myocardial infarction): Troponin harsha further yesterday to 5.66. Recent echo with several wall motion abnormalities. Appreciate cardiology consult/recommendations. Cont statin and beta morales. Aspirin and anticoagulation on hold due to thigh hematoma, recent right-sided hemothorax, etc. Poor candidate for any invasive testing. (5) Atrial flutter, paroxysmal: Ongoing issues with such. Was problematic for him during prior hospital stay as well. Remains on digoxin and beta morales. Amiodarone added back this admission. Now on 200mg BID. Appreciate cardiology assistance. Anticoagulation on hold as noted below. (6) Fracture of multiple ribs of both sides: Recent hospital stay for right-sided fractures 2nd to fall. Now with multiple left-sided fractures also 2nd to fall. Cont pain control -- tylenol scheduled; lidoderm patches; dilaudid in mckenna of tramadol; toradol prn. May need to add fentanyl patch. (7) Pneumothorax: 2nd to rib fractures. Left-sided. Tiny. Continue NC O2. last cxr without any worsening. (8) Pneumomediastinum: 2nd to recent trauma. Small. Seen on recent imaging. (9) Chronic diastolic CHF (congestive heart failure): Euvolemic/compensated - actually a little dry today. Holding lasix. IV fluids x 500cc today. (10) Hematoma of left thigh: 2nd to trauma. aspirin/eliquis both on hold. with resulting acute blood loss anemia. see below. (11) Urinary retention: s/p aldana placement. urine cx pending for UTI. (12) Acute blood loss anemia: significant drop from 11.2 on 06/11/20 to 7s. 2nd to left thigh hematoma, blood draws, etc. cbc in am. will t/c 2 units PRBCs in am. would Tx if Hb 7.5 or less. (13) Diabetes: appreciate pharmacy assistance. cont basal-bolus regimen. (14) Hypothyroidism: TSH 04/2020 wnl. Cont synthroid. (15) Chronic bronchitis: Cont home inhalers. Not in exacerbation. (16) Scalp laceration: gallo can be removed 06/24/20 healing well did patient have concussion from recent head injury??? (17) DVT prophylaxis: chemical means on hold due to left-sided thigh hematoma. SCDs only. updated at bedside today. prognosis guarded. Silvia, daughter, extensively updated today by phone. Admission and Anticipated Discharge Date Admission Date: June 18, 2020 Subjective patient much more awake, alert today. at bedside. ate breakfast. still w/ severe pain of left chest (new rib Fx's). during the visit he kept right eye closed and left eye open. when asked to do so he could open right eyelid, however. c/o mild dyspnea. no cough. no abd pain. spoke with daughter, Silvia, by phone - she is nurse near [place]. [phone] continues with a flutter on Patient Home Monitoring, 2:1, rates 110s. gallo due to be removed left scalp on 06/24/2020. Review of Systems Constitutional: + fatigue and + anorexia; no fever and no chills Respiratory: + dyspnea Cardiovascular: as per Subjective / HPI and + chest pain; no orthopnea Gastrointestinal: no abdominal pain, no nausea and no vomiting Physical Exam Constitutional: + acute distress (due to left-sided rib pain w/ movement ), + ill appearing, + altered mental status (but improved today ) and + frail appearing Eyes: right eyelid closed for much of visit ENMT: Mouth: + dry oral mucous membranes Respiratory: no respiratory distress Auscultation: + crackles (b/l bases ); no wheezes Cardiovascular: Rate/Rhythm: regular rhythm and + tachycardic Heart Sounds: normal S1 and normal S2 Vessels: posterior tibial pulses present and dorsalis pedis pulses present; no JVD Extremities: no edema Gastrointestinal (Abdomen): Inspection/Auscultation: normal bowel sounds Percussion/Palpation: + abdomen tender (LUQ ); no guarding and no hepatosplenomegaly Skin: + pallor gallo x 2 intact left posterior scalp lac Neurologic: moves all extremities; no focal motor deficits Cranial Nerves: normal facial strength quasi-ptosis right eye?? Psychiatric: Orientation: alert, oriented to person and oriented to place; + not oriented to time Results & Data Results & Data ([place]) Vital Signs (Past 12 Hours) Vital Signs Temp Pulse Pulse Resp BP BP Pulse Ox 06/22/20 16:27 69 06/22/20 15:30 36.7 C 66 18 115/66 92 06/22/20 11:02 36.7 C 118 H 20 95/63 L 93 06/22/20 08:00 36.8 C 119 H 20 100/64 96 Laboratory Results Laboratory Results - last 24 hr 06/21/20 06/22/20 06/22/20 20:35 03:00 06:07 WBC 12.61 H RBC 2.75 L Hgb 7.8 L Hct 26.5 L MCV 96.4 MCH 28.4 MCHC 29.4 L RDW Std Deviation 55.1 H RDW Coeff of Ruddy 15.7 H Plt Count 305 MPV 10.1 Sodium Potassium Chloride Carbon Dioxide Anion Gap BUN Creatinine Est Cr Clr Drug Dosing Est GFR ( Amer) Est GFR (Non-Af Amer) BUN/Creatinine Ratio Glucose POC Glucose 146 H 109 H Calcium 06/22/20 06/22/20 06/22/20 06:07 07:35 07:36 WBC RBC Hgb Hct MCV MCH MCHC RDW Std Deviation RDW Coeff of Ruddy Plt Count MPV Sodium 140 Potassium 4.5 Chloride 109 H Carbon Dioxide 26 Anion Gap 5.0 BUN 41 H Creatinine 1.47 H Est Cr Clr Drug Dosing 38.7 Est GFR ( Amer) 50.8 Est GFR (Non-Af Amer) 43.8 BUN/Creatinine Ratio 28.0 H Glucose 92 POC Glucose 126 H Calcium 8.9 06/22/20 06/22/20 11:18 16:31 WBC RBC Hgb Hct MCV MCH MCHC RDW Std Deviation RDW Coeff of Ruddy Plt Count MPV Sodium Potassium Chloride Carbon Dioxide Anion Gap BUN Creatinine Est Cr Clr Drug Dosing Est GFR ( Amer) Est GFR (Non-Af Amer) BUN/Creatinine Ratio Glucose POC Glucose 262 H 211 H Calcium PG Care Time/CCT Total # of Minutes Spent Total Time Spent with Patient: Total time spent is greater than 50% in coordination of care (as documented) at patient's floor/unit and/or counseling patient: Coding Level of Care Code 75491 Subseq Hosp Care Lvl 3 Diagnoses Acute respiratory failure with hypoxia J96.01 SIRS (systemic inflammatory response syndrome) R65.10 Metabolic encephalopathy G93.41 NSTEMI (non-ST elevated myocardial infarction) I21.4 Atrial flutter, paroxysmal I48.92 Fracture of multiple ribs of both sides S22.43XD Encounter type: subsequent encounter Fracture healing: with routine healing Fracture type: closed Pneumothorax J93.9 Pneumothorax type: unspecified pneumothorax Pneumomediastinum J98.2 Chronic diastolic CHF (congestive heart failure) I50.32 Hematoma of left thigh S70.12XA Encounter type: initial encounter Urinary retention R33.9 Acute blood loss anemia D62 Diabetes E11.69; Z79.4 Diabetes mellitus complication status: with other specified complication Diabetes mellitus mcfp insulin use: with assistant terminal manager use Diabetes mellitus type: type 2 Hypothyroidism E03.9 Hypothyroidism type: acquired Chronic bronchitis J42 Chronic bronchitis type: unspecified Scalp laceration S01.01XA DVT prophylaxis Z29.9 (1) Diabetes Diabetes mellitus complication status: with other specified complication Diabetes mellitus assistant terminal manager insulin use: with mcfp use Diabetes mellitus type: type 2 Qualified Code(s): E11.69 - Type 2 diabetes mellitus with other specified complication; Z79.4 - tank terminal gauger (current) use of insulin (2) Pneumothorax Pneumothorax type: unspecified pneumothorax Qualified Code(s): J93.9 - Pneumothorax, unspecified (3) Hematoma of left thigh Encounter type: initial encounter Qualified Code(s): S70.12XA - Contusion of left thigh, initial encounter (4) Hypothyroidism Hypothyroidism type: acquired Qualified Code(s): E03.9 - Hypothyroidism, unspecified (5) Fracture of multiple ribs of both sides Encounter type: subsequent encounter Fracture healing: with routine healing Fracture type: closed Qualified Code(s): S22.43XD - Multiple fractures of ribs, bilateral, subsequent encounter for fracture with routine healing (6) Chronic bronchitis Chronic bronchitis type: unspecified Qualified Code(s): J42 - Unspecified chronic bronchitis
[2020-06-22] MEDS: LIDOCAINE 5% 1 PATCH TD SCH (20:35)
[2020-06-22] MEDS: CYANOCOBALAMIN 500 MCG TABLET (VITAMIN B-12) PO SCH (20:39)
[2020-06-22] MEDS: SIMVASTATIN 40 MG TAB PO SCH (20:39)
[2020-06-23] MEDS: HYDROmorphone INJ 0.5 MG/0.5 ML SYR IV PRN ×5 (01:51→22:19)
[2020-06-23] MEDS: LEVOTHYROXINE SODIUM 75 MCG TABLET PO SCH (05:50)
[2020-06-23] MEDS: ESCITALOPRAM OXALATE 20 MG TAB PO SCH (08:03)
[2020-06-23] MEDS: MULTIVITAMIN TAB PO SCH (08:03)
[2020-06-23] MEDS: AMIODARONE 200 MG TAB PO SCH ×2 (08:03→16:52)
[2020-06-23] MEDS: PANTOprazole 40 MG TAB PO SCH (08:03)
[2020-06-23] MEDS: ASCORBIC ACID 500 MG TAB PO SCH (08:03)
[2020-06-23] MEDS: METOPROLOL TARTRATE 50 MG TAB PO SCH ×2 (08:04→19:45)
[2020-06-23] MEDS: ACETAMINOPHEN 325 MG TAB PO SCH ×4 (08:04→19:32)
[2020-06-23] MEDS: FLUTICASONE/VILANTEROL 100/25MCG 14 PUFFS/INHALER INH SCH (08:05)
[2020-06-23] MEDS: INSULIN GLARGINE SOLOSTAR 100 UNITS/ML 3 ML PEN SC SCH (08:05)
[2020-06-23] MEDS: UMECLIDINIUM BROMIDE 62.5MCG/BLISTER 7 PUFFS/INHALER INH SCH (08:06)
[2020-06-23] MEDS ORDERED: SODIUM CHLORIDE 0.9% 250 ML IV PRN ×2 (08:29→12:45)
[2020-06-23] MEDS ORDERED: VANCOMYCIN CONSULT ACTIVE PRN (08:31)
[2020-06-23] MEDS ORDERED: VANCOMYCIN HCL 1,000 MG in SODIUM CHLORIDE 0.9% 250 ML IV SCH (08:45)
[2020-06-23] MEDS ORDERED: VANCOMYCIN HCL 2,000 MG in SODIUM CHLORIDE 0.9% 500 ML IV ONE (08:45)
[2020-06-23 08:58] LABS: Hematocrit (blood only) 24.3 % (42-52); Hemoglobin 7.5 g/dL (14.0-18.0); Mean Corpuscular Hemoglobin 29.3 pg (25-34); Mean Corpuscular Hgb Conc 30.9 g/dL (32-36); Mean Corpuscular Volume 94.9 fL (80-100); Mean Platelet Volume 9.9 fL (7.4-10.4); Nucleated RBC # (auto) 0.14 K/uL (0-0); Nucleated RBC % (auto) 1.4 %; Platelet Count 266 K/uL (130-400); RDW Coefficient of Variation 15.8 % (11.5-14.5); RDW Standard Deviation 54.8 fL (36.4-46.3); Red Blood Count 2.56 M/uL (4.7-6.1); White Blood Count 10.66 K/uL (4.8-10.8)
[2020-06-23 09:26] LABS: BUN Creatinine Ratio 27.7 (10-20); Calcium 8.4 mg/dl (8.5-10.1); Creatinine Clr Calc Pharmacy 43.1 ml/min; Est GFR (African American) 57.8; Est GFR (Non-African American) 49.9; Magnesium 2.2 mg/dl (1.8-2.4); Potassium 4.5 mmol/L (3.5-5.1)
[2020-06-23] MEDS: INSULIN ASPART 100 UNITS/ML 3 ML PEN SC SCH ×4 (09:45→20:55)
[2020-06-23] MEDS: CEFEPIME 2,000 MG in SYRINGE 0 ML IV SCH ×2 (12:45→23:09)
[2020-06-23] MEDS: fentaNYL 12 MCG/HR TDSY TD SCH (12:58)
[2020-06-23] MEDS ORDERED: bisacodyL 10 MG SUPP PR ONE (13:25)
--- NOTE | 2020-06-23 13:27 | XRay Report ---
KUB HISTORY: distension; ?Ileus? COMPARISON: Abdomen and pelvis CT 06/18/2020. FINDINGS: The bowel gas pattern is unremarkable. There are no dilated loops of small bowel to suggest an obstruction. No renal calculi. No ureteral calculi. No pneumoperitoneum or pneumatosis. Surgical clips within the deep pelvis. Small to moderate amount of well-formed stool within the colon. IMPRESSION: No dilated loops of bowel to suggest an ileus or obstruction. ACT 112: Negative or not required by law. Electronically signed by: Sandor Murdock M.D. 06/23/2020 1:26 PM
--- NOTE | 2020-06-23 13:49 | XRay Report ---
XR chest 1V portable HISTORY: 80 years-old Male ?pneumonia, recent pneumothorax/pneumomediastinum acute shortness of chey th COMPARISON: Chest radiograph 06/21/2020 TECHNIQUE: Portable AP view of the chest FINDINGS: Cardiomegaly. Calcified plaque the thoracic aortic arch. Mild pulmonary vascular congestion. No overt pulmonary edema. Small pleural effusions with mild left greater than right bibasilar densities, mild ly progressed on the left. No pneumothorax. Bilateral rib fractures redemonstrated. IMPRESSION: 1. Cardiomegaly with pulmonary vascular congestion. 2. Small pleural effusions with mildly progressed left lung base opacities. 3. Bilateral rib fractures redemonstrated. No pneumothorax. ACT 112: Negative or not required by law. The above report was generated using voice recognition software. It may contain grammatical, syntax o r spelling errors. Electronically signed by: Chris Quintanilla M.D. 06/23/2020 1:48 PM
[2020-06-23] MEDS: DAPTOmycin 575 MG in SYRINGE 0 ML IV SCH (16:13)
[2020-06-23] MEDS: DIGOXIN 0.125 MG TAB PO SCH (16:14)
[2020-06-23] MEDS: CHECK fentaNYL PATCH PLACEMENT SCH ×2 (16:14→23:09)
[2020-06-23] MEDS: LIDOCAINE 5% 1 PATCH TD SCH (19:36)
[2020-06-23] MEDS: FERROUS SULFATE 325 MG TAB PO SCH (19:37)
[2020-06-23] MEDS: CYANOCOBALAMIN 500 MCG TABLET (VITAMIN B-12) PO SCH (19:37)
--- NOTE | 2020-06-23 20:25 | Hospitalist Progress Note ---
Date of Service June 23, 2020 Assessment & Plan (1) Acute respiratory failure with hypoxia: Ongoing. Multifactorial including hypoventilation/splinting from numerous b/l rib fractures and now suspected pneumonia of LLL. I repeated his cxr today and LLL infiltrates are worse thus will continue IV cefepime - day #3 of such. Did have small hemothorax on right during last hospital stay but unlikely contributing to current symptoms. Had tiny L pneumothorax - most recent cxr w/o any increase and today's cxr cannot see pneumo either. Cont IV cefepime. COVID-19 PCR negative. (2) Sepsis: POA was likely due to brewing pneumonia. sepsis resolved. (3) Metabolic encephalopathy: Likely metabolic from infectious issues. Can't rule out toxic effects from pain meds. I cannot rule out recurrent strokes in setting of being off his usual anticoagulation. Head CT neg this admission. Ideally we obtain MRI, but gallo need to be removed prior. Earliest we can do MRI is , 06/24, once gallo are out. Cannot rule out concussion from recent head injury as well contributing to mental status. confusion ongoing. (4) NSTEMI (non-ST elevated myocardial infarction): Troponin peak 5.66. Recent echo with several wall motion abnormalities. Appreciate cardiology consult/recommendations. Cont statin and beta morales. Aspirin and anticoagulation on hold due to thigh hematoma, recent right-sided hemothorax, etc. Poor candidate for any invasive testing. (5) Atrial flutter, paroxysmal: Converted back to NSR overnight. Was problematic for him during prior hospital stay as well. Remains on digoxin and beta morales. Cont amiodarone 200mg BID. Appreciate cardiology assistance. Anticoagulation on hold as noted below. (6) Fracture of multiple ribs of both sides: Recent hospital stay for right-sided fractures 2nd to fall. Now with multiple left-sided fractures also 2nd to fall. Cont pain control -- tylenol scheduled; lidoderm patches; dilaudid in mckenna of tramadol; toradol prn. Despite this cannot even roll in bed due to severe pain. Start fentanyl patch 12mcg q3d. Allow oxycodone 5mg q6h prn. (7) Pneumothorax: 2nd to rib fractures. Left-sided. Tiny. Resolved on cxr today. Continue NC O2. (8) Pneumomediastinum: 2nd to recent trauma. Small. No evidence of lingering pneumomediastinum. (9) Chronic diastolic CHF (congestive heart failure): Euvolemic/compensated clinically today. (10) Hematoma of left thigh: 2nd to trauma. aspirin/eliquis both on hold. with resulting acute blood loss anemia. see below. (11) Urinary retention: s/p aldana placement. urine cx with VRE. difficult to know if UTI caused retention or retention led to UTI. either way cont aldana and Rx of UTI. (12) Acute blood loss anemia: significant drop from 11.2 on 06/11/20 to 7s. 2nd to left thigh hematoma, blood draws, etc. Hb 7.5 today. Tx 1 unit PRBCs. repeat cbc am. (13) Diabetes: appreciate pharmacy assistance. cont basal-bolus regimen. labile BSGs. (14) Hypothyroidism: TSH 04/2020 wnl. Cont synthroid. (15) Chronic bronchitis: Cont home inhalers. Not in exacerbation. (16) Scalp laceration: gallo can be removed 06/24/20 healing well did patient have concussion from recent head injury??? (17) DVT prophylaxis: chemical means on hold due to left-sided thigh hematoma. SCDs only. updated at bedside today. prognosis guarded. Silvia, daughter, extensively updated by phone 06/22. left message for Silvia on 06/23. strongly consider palliative care consultation. Admission and Anticipated Discharge Date Admission Date: June 18, 2020 Subjective tele overnight - converted to NSR from leno yesterday afternoon. during rounds patient's at bedside. she reports he had restless night due to chest wall pain from rib fractures. he is also very confused this am. appetite not good. still requiring NC O2. ?last BM - several days. patient also states his right chest hurts this am. c/o back and neck pain. Review of Systems Review of Systems: Unobtainable due to cognitive status (Very confused today ) Physical Exam Constitutional: + ill appearing, + altered mental status and + frail appearing; no acute distress ENMT: external ear and nose normal, oropharynx normal Mouth: + dry oral mucous membranes Respiratory: no respiratory distress Auscultation: + crackles (Left base); no wheezes Cardiovascular: Rate/Rhythm: regular rhythm Heart Sounds: normal S1 and normal S2 Vessels: posterior tibial pulses present and dorsalis pedis pulses present; no JVD Extremities: no edema Chest (Breasts): Additional Comments: tender b/l chest to palpations Gastrointestinal (Abdomen): Inspection/Auscultation: + abdomen distended and normal bowel sounds Percussion/Palpation: + abdomen tender (LUQ ); no guarding and no hepatosplenomegaly Skin: + pallor Neurologic: moves all extremities; no focal motor deficits Cranial Nerves: normal facial strength Psychiatric: Orientation: alert, oriented to person and oriented to place; + not oriented to time Results & Data Results & Data ([facility]) Vital Signs (Past 12 Hours) Vital Signs Temp Pulse Pulse Pulse Resp BP BP 06/23/20 19:55 36.8 C 70 14 121/70 06/23/20 16:14 61 06/23/20 15:06 36.7 C 60 18 115/59 L 06/23/20 13:50 36.6 C 62 16 116/58 L 06/23/20 13:35 36.8 C 64 87 18 123/68 06/23/20 13:17 36.8 C 64 18 125/66 06/23/20 13:04 36.7 C 64 18 102/52 L 06/23/20 11:25 36.8 C 60 24 06/23/20 08:48 75 BP Pulse Ox 06/23/20 19:55 97 06/23/20 16:14 06/23/20 15:06 97 06/23/20 13:50 97 06/23/20 13:35 123/68 96 06/23/20 13:17 97 06/23/20 13:04 96 06/23/20 11:25 102/56 L 98 06/23/20 08:48 Laboratory Results Laboratory Results - last 24 hr 06/22/20 06/22/20 06/23/20 06:07 20:25 07:52 WBC RBC Hgb Hct MCV MCH MCHC RDW Std Deviation RDW Coeff of Ruddy Plt Count MPV Absolute Nucleated RBC Nucleated RBC % (auto) Sodium Potassium Chloride Carbon Dioxide Anion Gap BUN Creatinine Est Cr Clr Drug Dosing Est GFR ( Amer) Est GFR (Non-Af Amer) BUN/Creatinine Ratio Glucose POC Glucose 112 H 96 Calcium Magnesium Blood Type Blood Type Recheck O Positive Antibody Screen Crossmatch 06/23/20 06/23/20 06/23/20 08:44 08:44 08:44 WBC 10.66 RBC 2.56 L Hgb 7.5 L Hct 24.3 L MCV 94.9 MCH 29.3 MCHC 30.9 L RDW Std Deviation 54.8 H RDW Coeff of Ruddy 15.8 H Plt Count 266 MPV 9.9 Absolute Nucleated RBC 0.14 H Nucleated RBC % (auto) 1.4 Sodium 141 Potassium 4.5 Chloride 112 H Carbon Dioxide 24 Anion Gap 5.0 BUN 37 H Creatinine 1.32 Est Cr Clr Drug Dosing 43.1 Est GFR ( Amer) 57.8 Est GFR (Non-Af Amer) 49.9 BUN/Creatinine Ratio 27.7 H Glucose 97 POC Glucose Calcium 8.4 L Magnesium 2.2 Blood Type O Positive Blood Type Recheck Antibody Screen NEGATIVE Crossmatch See Detail 06/23/20 06/23/20 11:41 16:50 WBC RBC Hgb Hct MCV MCH MCHC RDW Std Deviation RDW Coeff of Ruddy Plt Count MPV Absolute Nucleated RBC Nucleated RBC % (auto) Sodium Potassium Chloride Carbon Dioxide Anion Gap BUN Creatinine Est Cr Clr Drug Dosing Est GFR ( Amer) Est GFR (Non-Af Amer) BUN/Creatinine Ratio Glucose POC Glucose 139 H 246 H Calcium Magnesium Blood Type Blood Type Recheck Antibody Screen Crossmatch urine cx - VRE, sens to daptomycin PG Care Time/CCT Total # of Minutes Spent Total Time Spent with Patient: Total time spent is greater than 50% in coordination of care (as documented) at patient's floor/unit and/or counseling patient: Coding Level of Care Code 85891 Subseq Hosp Care Lvl 3 Diagnoses Acute respiratory failure with hypoxia J96.01 Sepsis A41.9 Metabolic encephalopathy G93.41 NSTEMI (non-ST elevated myocardial infarction) I21.4 Atrial flutter, paroxysmal I48.92 Fracture of multiple ribs of both sides S22.43XD Encounter type: subsequent encounter Fracture healing: with routine healing Fracture type: closed Pneumothorax J93.9 Pneumothorax type: unspecified pneumothorax Pneumomediastinum J98.2 Chronic diastolic CHF (congestive heart failure) I50.32 Hematoma of left thigh S70.12XA Encounter type: initial encounter Urinary retention R33.9 Acute blood loss anemia D62 Diabetes E11.69; Z79.4 Diabetes mellitus complication status: with other specified complication Diabetes mellitus equipment operator intermodal yard insulin use: with equipment operator intermodal yard use Diabetes mellitus type: type 2 Hypothyroidism E03.9 Hypothyroidism type: acquired Chronic bronchitis J42 Chronic bronchitis type: unspecified Scalp laceration S01.01XA DVT prophylaxis Z29.9 (1) Diabetes Diabetes mellitus complication status: with other specified complication Diabetes mellitus usp insulin use: with equipment operator intermodal yard use Diabetes mellitus type: type 2 Qualified Code(s): E11.69 - Type 2 diabetes mellitus with other specified complication; Z79.4 - intermediate project manager (current) use of insulin (2) Pneumothorax Pneumothorax type: unspecified pneumothorax Qualified Code(s): J93.9 - Pneumothorax, unspecified (3) Hematoma of left thigh Encounter type: initial encounter Qualified Code(s): S70.12XA - Contusion of left thigh, initial encounter (4) Hypothyroidism Hypothyroidism type: acquired Qualified Code(s): E03.9 - Hypothyroidism, unspecified (5) Fracture of multiple ribs of both sides Encounter type: subsequent encounter Fracture healing: with routine healing Fracture type: closed Qualified Code(s): S22.43XD - Multiple fractures of ribs, bilateral, subsequent encounter for fracture with routine healing (6) Chronic bronchitis Chronic bronchitis type: unspecified Qualified Code(s): J42 - Unspecified chronic bronchitis
[2020-06-24] MEDS: HYDROmorphone INJ 0.5 MG/0.5 ML SYR IV PRN ×3 (02:24→20:39)
[2020-06-24] MEDS: LEVOTHYROXINE SODIUM 75 MCG TABLET PO SCH (04:31)
[2020-06-24] MEDS: oxyCODONE HCL IR 5 MG TAB (IMMEDIATE RELEASE) PO PRN ×2 (04:32→12:28)
[2020-06-24 07:41] LABS: Hematocrit (blood only) 29.3 % (42-52); Hemoglobin 8.9 g/dL (14.0-18.0); Mean Corpuscular Hemoglobin 29.3 pg (25-34); Mean Corpuscular Hgb Conc 30.4 g/dL (32-36); Mean Corpuscular Volume 96.4 fL (80-100); Mean Platelet Volume 10.4 fL (7.4-10.4); Nucleated RBC # (auto) 0.21 K/uL (0-0); Nucleated RBC % (auto) 2.1 %; Platelet Count 303 K/uL (130-400); RDW Standard Deviation 55.2 fL (36.4-46.3); Red Blood Count 3.04 M/uL (4.7-6.1); White Blood Count 10.01 K/uL (4.8-10.8)
[2020-06-24 08:09] LABS: BUN Creatinine Ratio 26.4 (10-20); Calcium 8.6 mg/dl (8.5-10.1); Creatinine Clr Calc Pharmacy 52.2 ml/min; Est GFR (African American) 64.2; Est GFR (Non-African American) 55.4; Potassium 4.4 mmol/L (3.5-5.1)
[2020-06-24] MEDS: ASCORBIC ACID 500 MG TAB PO SCH (08:15)
[2020-06-24] MEDS: METOPROLOL TARTRATE 50 MG TAB PO SCH ×2 (08:15→20:44)
[2020-06-24] MEDS: ESCITALOPRAM OXALATE 20 MG TAB PO SCH (08:15)
[2020-06-24] MEDS: MULTIVITAMIN TAB PO SCH (08:15)
[2020-06-24] MEDS: ACETAMINOPHEN 325 MG TAB PO SCH ×4 (08:15→20:42)
[2020-06-24] MEDS: PANTOprazole 40 MG TAB PO SCH (08:16)
[2020-06-24] MEDS: AMIODARONE 200 MG TAB PO SCH ×2 (08:16→17:18)
[2020-06-24] MEDS: CHECK fentaNYL PATCH PLACEMENT SCH ×3 (08:16→23:24)
[2020-06-24] MEDS: INSULIN GLARGINE SOLOSTAR 100 UNITS/ML 3 ML PEN SC SCH (08:17)
[2020-06-24] MEDS: INSULIN ASPART 100 UNITS/ML 3 ML PEN SC SCH ×4 (08:18→20:44)
[2020-06-24] MEDS: UMECLIDINIUM BROMIDE 62.5MCG/BLISTER 7 PUFFS/INHALER INH SCH (08:19)
[2020-06-24] MEDS: FLUTICASONE/VILANTEROL 100/25MCG 14 PUFFS/INHALER INH SCH (08:19)
[2020-06-24] MEDS: CEFEPIME 2,000 MG in SYRINGE 0 ML IV SCH ×2 (12:24→23:23)
--- NOTE | 2020-06-24 12:26 | Pharmacy Report ---
Pharmacy Glycemic Short Note 2 - Date of Service June 24, 2020 - Glycemic Short BSG Results (Last 24 hours): 06/23/20 06/23/20 06/24/20 16:50 20:24 07:11 Glucose 102 H POC Glucose 246 H 212 H 06/24/20 06/24/20 07:41 11:54 Glucose POC Glucose 109 H 225 H Outpatient Anti-diabetic Regimen: * Lantus 45 units SC QAM * Metformin 1000 mg PO BID * A1c = 7.7% on 06/02/20 Risk Factors for Insulin Resistance: * Diet: T2DM ASSESSMENT: 06/24/20: * Pt has been receiving 80-90 units of insulin per day with near-adequate control * ~ 45 units of basal insulin with Lantus * 30-40 units of bolus insulin with NovoLog based on CHO consumed * AM fasting BSG continues in goal range at 109 mg/dl this AM. No changes needed to basal insulin. Continue 45 units of Lantus QAM * Post-prandial BSGs elevated. Will tighten CR. Will loosen CF since basal dosing is adequate. 06/22/20 * Stressors stable * BSG's with notable increase breakfast to lunch - per Valorie (RN), patient's is bringing in snacks to supplement breakfast as patient is not awake enough in AM. Valorie asked to let her know so these could be covered. * Per Valorie - patient also consumed more CHO w lunch than 60 g (charted) which is why Novolog dose was higher than anticipated (to accommodate additional CHO consumed) * No change to glycemic regimen as increase is due to snacking and not inadequ acy of parameters 06/21/20 * Stressors stable * Post-prandial BSG's gradually trended down yesterday after tightened Novolog parameters - keep the same today, unless >180 mg/dL x2 * AM fasting BSG still elevated - will continue to increase Lantus 06/20/20 * 80 y/o M admitted with AMS, anemia and PATRICK. Patient with history of Type 2 diabetes managed at home on insulin Lantus and oral Metformin. * Patient received 40 units of basal insulin x1 yesterday around noon and started on Novolog bolus with parameters based on weight and stress factor of 3. * BSGs trended down last night but fasting BSG this AM was elevated above 200. Lantus dose increased this AM. * Pre-lunch BSG continued to be high today, so Novolog parameters were further tightened with lunch. PLAN FOR INPATIENT GLYCEMIC CONTROL: * Hold outpatient oral diabetes medications * Basal insulin * Lantus 45 units SQ qAM * Bolus insulin * NovoLog per scale ACHS or Q6hrs while NPO * Goal Range: Low 110 mg/dL - High 140 mg/dL * Correction Factor: 15 mg/dL/unit (loosen) * Nutritional / Prandial insulin per carb ratio of 1 unit per 4 grams CHO consumed (tighten)
[2020-06-24] MEDS ORDERED: bisacodyL 5 MG TABEC PO ONE ×2 (14:42→18:57)
[2020-06-24] MEDS: DAPTOmycin 575 MG in SYRINGE 0 ML IV SCH (17:12)
[2020-06-24] MEDS: DIGOXIN 0.125 MG TAB PO SCH (17:17)
--- NOTE | 2020-06-24 19:30 | Hospitalist Progress Note ---
Date of Service June 24, 2020 Assessment & Plan (1) Acute respiratory failure with hypoxia: Ongoing. Multifactorial including hypoventilation/splinting from numerous b/l rib fractures and pneumonia of LLL. Continue IV cefepime - day #4 of such. Did have small hemothorax on right during last hospital stay but unlikely contributing to current symptoms. No significant fluid collection on right side. Recent tiny L pneumothorax not seen on most recent cxr. Cont IV cefepime. COVID-19 PCR negative. (2) Sepsis: POA was likely due to brewing pneumonia. sepsis resolved. (3) Metabolic encephalopathy: Likely metabolic from infectious issues. Can't rule out toxic effects from pain meds. I cannot rule out recurrent strokes in setting of being off his usual anticoagulation. Head CT neg this admission. Ideally we obtain MRI - but uncertain he could tolerate it due to rib pain. Defer on this today. Cannot rule out concussion from recent head injury as well contributing to mental status. confusion ongoing. (4) NSTEMI (non-ST elevated myocardial infarction): Troponin peak 5.66. Recent echo with several wall motion abnormalities. Appreciate cardiology consult/recommendations. Cont statin and beta morales. Aspirin and anticoagulation on hold due to thigh hematoma, recent right-sided hemothorax, etc. But suspect we can resume asa soon. Poor candidate for any invasive testing. (5) Atrial flutter, paroxysmal: Converted back to NSR 2 days ago. Was problematic for him during prior hospital stay as well. Remains on digoxin and beta morales. Cont amiodarone 200mg BID. Appreciate cardiology assistance. Anticoagulation on hold as noted. (6) Fracture of multiple ribs of both sides: Recent hospital stay for right-sided fractures 2nd to fall. Now with multiple left-sided fractures also 2nd to fall. Cont pain control -- tylenol scheduled; lidoderm patches; dilaudid in mckenna of tramadol; toradol prn; fentanyl patch; oxycodone prn. IMPROVED with above. (7) Pneumothorax: 2nd to rib fractures. Left-sided. Tiny. Resolved on cxr. Continue NC O2. (8) Pneumomediastinum: 2nd to recent trauma. Small. No evidence of lingering pneumomediastinum. (9) Chronic diastolic CHF (congestive heart failure): Euvolemic/compensated clinically today. (10) Hematoma of left thigh: 2nd to trauma. aspirin/eliquis both on hold. with resulting acute blood loss anemia. see below. (11) Urinary retention: s/p aldana placement. urine cx with VRE. difficult to know if UTI caused retention or retention led to UTI. either way cont aldana and Rx of UTI. (12) Acute blood loss anemia: significant drop from 11.2 on 06/11/20 to 7s. 2nd to left thigh hematoma, blood draws, etc. s/p 1 unit PRBC. H/H stable today. repeat cbc am. (13) Diabetes: appreciate pharmacy assistance. cont basal-bolus regimen. labile BSGs. (14) Hypothyroidism: TSH 04/2020 wnl. Cont synthroid. (15) Chronic bronchitis: Cont home inhalers. Not in exacerbation. (16) Scalp laceration: gallo can be removed today. order placed. healing well did patient have concussion from recent head injury??? (17) DVT prophylaxis: chemical means on hold due to left-sided thigh hematoma. SCDs only. updated at bedside again today. prognosis guarded. Silvia, daughter, extensively updated by phone 06/22 and today. left message for Silvia on 06/23 as well. Silvia coming for bedside visit THIS SUNDAY. strongly consider palliative care consultation. Admission and Anticipated Discharge Date Admission Date: June 18, 2020 Subjective pt's at bedside. she reports "it is a better day." pain is better in ribs - only has needed 1 prn dose of pain meds since she got here today. sat at side of bed with PT - more comfortably than prior PT sessions. more awake although remains confused. ate good lunch. breathing comfortable. Review of Systems Review of Systems: Unobtainable due to cognitive status (very confused ) Physical Exam Constitutional: + ill appearing, + altered mental status and + frail appearing; no acute distress more awake today than yesterday but still quite confused ENMT: external ear and nose normal, oropharynx normal Respiratory: no respiratory distress Auscultation: + crackles (Left base); no wheezes Cardiovascular: Rate/Rhythm: regular rhythm Heart Sounds: normal S1 and normal S2 Vessels: posterior tibial pulses present and dorsalis pedis pulses present; no JVD Extremities: + edema (trace b/l ) Gastrointestinal (Abdomen): Inspection/Auscultation: + abdomen distended (mild ) and normal bowel sounds Percussion/Palpation: abdomen nontender, no guarding and no hepatosplenomegaly Skin: + pallor Neurologic: moves all extremities (no facial droop ); no focal motor deficits Cranial Nerves: normal facial strength Psychiatric: Orientation: alert and oriented to person; + not oriented to place and + not oriented to time Results & Data Results & [facility] ([facility]) Vital Signs (Past 12 Hours) Vital Signs Temp Pulse Pulse Resp BP Pulse Ox 06/24/20 19:16 36.6 C 63 21 100/57 L 93 06/24/20 17:17 62 06/24/20 15:57 36.8 C 62 16 96/54 L 92 06/24/20 11:45 36.6 C 58 L 19 110/63 96 Laboratory Results Laboratory Results - last 24 hr 06/23/20 06/24/20 06/24/20 20:24 07:11 07:11 WBC 10.01 RBC 3.04 L Hgb 8.9 L Hct 29.3 L MCV 96.4 MCH 29.3 MCHC 30.4 L RDW Std Deviation 55.2 H RDW Coeff of Ruddy 16.0 H Plt Count 303 MPV 10.4 Absolute Nucleated RBC 0.21 H Nucleated RBC % (auto) 2.1 Sodium 142 Potassium 4.4 Chloride 112 H Carbon Dioxide 23 Anion Gap 7.0 BUN 32 H Creatinine 1.21 Est Cr Clr Drug Dosing 52.2 Est GFR ( Amer) 64.2 Est GFR (Non-Af Amer) 55.4 BUN/Creatinine Ratio 26.4 H Glucose 102 H POC Glucose 212 H Calcium 8.6 06/24/20 06/24/20 06/24/20 07:41 11:54 16:51 WBC RBC Hgb Hct MCV MCH MCHC RDW Std Deviation RDW Coeff of Ruddy Plt Count MPV Absolute Nucleated RBC Nucleated RBC % (auto) Sodium Potassium Chloride Carbon Dioxide Anion Gap BUN Creatinine Est Cr Clr Drug Dosing Est GFR ( Amer) Est GFR (Non-Af Amer) BUN/Creatinine Ratio Glucose POC Glucose 109 H 225 H 165 H Calcium PG Care Time/CCT Total # of Minutes Spent Total Time Spent with Patient: Total time spent is greater than 50% in coordination of care (as documented) at patient's floor/unit and/or counseling patient: Coding Level of Care Code 98329 Subseq Hosp Care Lvl 3 Diagnoses Acute respiratory failure with hypoxia J96.01 Sepsis A41.9 Metabolic encephalopathy G93.41 NSTEMI (non-ST elevated myocardial infarction) I21.4 Atrial flutter, paroxysmal I48.92 Fracture of multiple ribs of both sides S22.43XD Encounter type: subsequent encounter Fracture healing: with routine healing Fracture type: closed Pneumothorax J93.9 Pneumothorax type: unspecified pneumothorax Pneumomediastinum J98.2 Chronic diastolic CHF (congestive heart failure) I50.32 Hematoma of left thigh S70.12XA Encounter type: initial encounter Urinary retention R33.9 Acute blood loss anemia D62 Diabetes E11.69; Z79.4 Diabetes mellitus complication status: with other specified complication Diabetes mellitus adjunct faculty for medical terminology insulin use: with adjunct faculty for medical terminology use Diabetes mellitus type: type 2 Hypothyroidism E03.9 Hypothyroidism type: acquired Chronic bronchitis J42 Chronic bronchitis type: unspecified Scalp laceration S01.01XA DVT prophylaxis Z29.9 (1) Diabetes Diabetes mellitus complication status: with other specified complication Diabetes mellitus custodial insulin use: with custodial use Diabetes mellitus type: type 2 Qualified Code(s): E11.69 - Type 2 diabetes mellitus with other specified complication; Z79.4 - terminal gauger (current) use of insulin (2) Pneumothorax Pneumothorax type: unspecified pneumothorax Qualified Code(s): J93.9 - Pneumothorax, unspecified (3) Hematoma of left thigh Encounter type: initial encounter Qualified Code(s): S70.12XA - Contusion of left thigh, initial encounter (4) Hypothyroidism Hypothyroidism type: acquired Qualified Code(s): E03.9 - Hypothyroidism, unsp ecified (5) Fracture of multiple ribs of both sides Encounter type: subsequent encounter Fracture healing: with routine healing Fracture type: closed Qualified Code(s): S22.43XD - Multiple fractures of ribs, bilateral, subsequent encounter for fracture with routine healing (6) Chronic bronchitis Chronic bronchitis type: unspecified Qualified Code(s): J42 - Unspecified chronic bronchitis
[2020-06-24] MEDS: FERROUS SULFATE 325 MG TAB PO SCH (20:42)
[2020-06-24] MEDS: CYANOCOBALAMIN 500 MCG TABLET (VITAMIN B-12) PO SCH (20:45)
[2020-06-24] MEDS ORDERED: Nursing to Pharmacy Communication SCH (21:15)
[2020-06-24] MEDS: LIDOCAINE 5% 1 PATCH TD SCH (23:01)
[2020-06-25] MEDS: oxyCODONE HCL IR 5 MG TAB (IMMEDIATE RELEASE) PO PRN ×2 (00:20→11:21)
[2020-06-25] MEDS: LEVOTHYROXINE SODIUM 75 MCG TABLET PO SCH (06:22)
[2020-06-25 07:33] LABS: Hematocrit (blood only) 28.2 % (42-52); Hemoglobin 8.5 g/dL (14.0-18.0); Mean Corpuscular Hemoglobin 29.4 pg (25-34); Mean Corpuscular Hgb Conc 30.1 g/dL (32-36); Mean Corpuscular Volume 97.6 fL (80-100); Mean Platelet Volume 10.5 fL (7.4-10.4); Nucleated RBC # (auto) 0.15 K/uL (0-0); Nucleated RBC % (auto) 1.5 %; Platelet Count 337 K/uL (130-400); RDW Coefficient of Variation 16.3 % (11.5-14.5); RDW Standard Deviation 56.9 fL (36.4-46.3); Red Blood Count 2.89 M/uL (4.7-6.1); White Blood Count 10.25 K/uL (4.8-10.8)
[2020-06-25 07:34] LABS: BUN Creatinine Ratio 24.8 (10-20); Calcium 8.2 mg/dl (8.5-10.1); Creatinine Clr Calc Pharmacy 54.1 ml/min; Est GFR (African American) 67.6; Est GFR (Non-African American) 58.3
[2020-06-25] MEDS: UMECLIDINIUM BROMIDE 62.5MCG/BLISTER 7 PUFFS/INHALER INH SCH (08:15)
[2020-06-25] MEDS: CHECK fentaNYL PATCH PLACEMENT SCH ×2 (08:15→17:12)
[2020-06-25] MEDS: FLUTICASONE/VILANTEROL 100/25MCG 14 PUFFS/INHALER INH SCH (08:15)
[2020-06-25] MEDS: ACETAMINOPHEN 325 MG TAB PO SCH ×4 (08:15→20:52)
[2020-06-25] MEDS: ESCITALOPRAM OXALATE 20 MG TAB PO SCH (08:18)
[2020-06-25] MEDS: METOPROLOL TARTRATE 50 MG TAB PO SCH ×2 (08:18→20:53)
[2020-06-25] MEDS: PANTOprazole 40 MG TAB PO SCH (08:19)
[2020-06-25] MEDS: MULTIVITAMIN TAB PO SCH (08:19)
[2020-06-25] MEDS: AMIODARONE 200 MG TAB PO SCH ×2 (09:56→17:15)
[2020-06-25] MEDS: LIDOCAINE 5% 1 PATCH TD SCH (09:57)
[2020-06-25] MEDS: INSULIN ASPART 100 UNITS/ML 3 ML PEN SC SCH ×4 (10:12→20:51)
[2020-06-25] MEDS: INSULIN GLARGINE SOLOSTAR 100 UNITS/ML 3 ML PEN SC SCH (10:14)
[2020-06-25] MEDS: ASCORBIC ACID 500 MG TAB PO SCH (10:15)
--- NOTE | 2020-06-25 10:18 | Pharmacy Report ---
Pharmacy Glycemic Short Note 2 - Date of Service June 25, 2020 - Glycemic Short BSG Results (Last 24 hours): 06/24/20 06/24/20 06/24/20 11:54 16:51 20:39 Glucose POC Glucose 225 H 165 H 108 H 06/25/20 06/25/20 06:52 07:34 Glucose 100 H POC Glucose 105 H Outpatient Anti-diabetic Regimen: * Lantus 45 units SC QAM * Metformin 1000 mg PO BID * A1c = 7.7% on 06/02/20 Risk Factors for Insulin Resistance: * Diet: T2DM ASSESSMENT: 06/25/20: * Pt has received 61 units of insulin over the past 24hrs * 45 units of basal insulin with Lantus * 16 units of bolus insulin with NovoLog * BSGs ranging 105-225 mg/dl * AM fasting BSG is slightly below goal range for inpatient targets at 105 mg/dl. Will adjust lantus order from BSG parameters to fixed dosing. Likely true basal needs are ~ 40 units/day * Post-prandial BSGs are much improved with adjustment in CF/CR yesterday. No changes needed today 06/24/20: * Pt has been receiving 80-90 units of insulin per day with near-adequate control * ~ 45 units of basal insulin with Lantus * 30-40 units of bolus insulin with NovoLog based on CHO consumed * AM fasting BSG continues in goal range at 109 mg/dl this AM. No changes needed to basal insulin. Continue 45 units of Lantus QAM * Post-prandial BSGs elevated. Will tighten CR. Will loosen CF since basal dosing is adequate. 06/22/20 * Stressors stable * BSG's with notable increase breakfast to lunch - per Valorie (RN), patient's is bringing in snacks to supplement breakfast as patient is not awake enough in AM. Valorie asked to let her know so these could be covered. * Per Valorie - patient also consumed more CHO w lunch than 60 g (charted) which is why Novolog dose was higher than anticipated (to accommodate additional CHO consumed) * No change to glycemic regimen as increase is due to snacking and not inadequacy of parameters 06/21/20 * Stressors stable * Post-prandial BSG's gradually trended down yesterday after tightened Novolog parameters - keep the same today, unless >180 mg/dL x2 * AM fasting BSG still elevated - will continue to increase Lantus 06/20/20 * 80 y/o M admitted with AMS, anemia and PATRICK. Patient with history of Type 2 diabetes managed at home on insulin Lantus and oral Metformin. * Patient received 40 units of basal insulin x1 yesterday around noon and started on Novolog bolus with parameters based on weight and stress factor of 3. * BSGs trended down last night but fasting BSG this AM was elevated above 200. Lantus dose increased this AM. * Pre-lunch BSG continued to be high today, so Novolog parameters were further tightened with lunch. PLAN FOR INPATIENT GLYCEMIC CONTROL: * Hold outpatient oral diabetes medications * Basal insulin: decrease * Lantus 40 units SQ qAM * Bolus insulin: no change * NovoLog per scale ACHS or Q6hrs while NPO * Goal Range: Low 110 mg/dL - High 140 mg/dL * Correction Factor: 15 mg/dL/unit * Nutritional / Prandial insulin per carb ratio of 1 unit per 4 grams CHO consumed
[2020-06-25] MEDS: CEFEPIME 2,000 MG in SYRINGE 0 ML IV SCH ×2 (12:17→23:42)
[2020-06-25] MEDS: HYDROmorphone INJ 0.5 MG/0.5 ML SYR IV PRN ×3 (13:41→23:42)
[2020-06-25] MEDS: DAPTOmycin 575 MG in SYRINGE 0 ML IV SCH (17:12)
[2020-06-25] MEDS: DIGOXIN 0.125 MG TAB PO SCH (17:13)
[2020-06-25] MEDS: NYSTATIN SUSP 500,000 U/5 ML UDC PO SCH ×2 (19:02→20:53)
[2020-06-25] MEDS: FERROUS SULFATE 325 MG TAB PO SCH (20:52)
[2020-06-25] MEDS: CYANOCOBALAMIN 500 MCG TABLET (VITAMIN B-12) PO SCH (20:54)
--- NOTE | 2020-06-25 22:38 | Hospitalist Progress Note ---
Date of Service June 25, 2020 Assessment & Plan (1) Acute respiratory failure with hypoxia: Resolved. Multifactorial including hypoventilation/splinting from numerous b/l rib fractures and pneumonia of LLL. Continue IV cefepime - day #5 of such. Plan 7 days then stop. Did have small hemothorax on right during last hospital stay but this has resolved. Recent tiny L pneumothorax resolved. COVID-19 PCR negative. (2) Sepsis: POA was likely due to brewing pneumonia. sepsis resolved. (3) Metabolic encephalopathy: Likely metabolic and toxic. resolving. Head CT neg this admission. Ideally we obtain MRI - but uncertain he could tolerate it due to rib pain. Defer on this again today. Cannot rule out concussion from recent head injury as well contributing to mental status. (4) NSTEMI (non-ST elevated myocardial infarction): Troponin peak 5.66. Recent echo with several wall motion abnormalities. Appreciate cardiology consult/recommendations. Cont statin and beta morales. Aspirin and anticoagulation on hold due to thigh hematoma, recent right-sided hemothorax, etc. But suspect we can resume asa soon. Poor candidate for any invasive testing. (5) Atrial flutter, paroxysmal: Converted back to NSR 3 days ago. Was problematic for him during prior hospital stay as well. Remains on digoxin and beta morales. Cont amiodarone 200mg BID. Appreciate cardiology assistance. Anticoagulation on hold as noted. (6) Fracture of multiple ribs of both sides: Recent hospital stay for right-sided fractures 2nd to fall. Now with multiple left-sided fractures also 2nd to fall. Cont pain control -- tylenol scheduled; lidoderm patches; dilaudid in mckenna of tramadol; toradol prn; fentanyl patch; oxycodone prn. MARKEDLY IMPROVED with above. (7) Pneumothorax: 2nd to rib fractures. Left-sided. Tiny. Resolved on cxr. (8) Pneumomediastinum: 2nd to recent trauma. Small. No evidence of lingering pneumomediastinum. (9) Chronic diastolic CHF (congestive heart failure): Euvolemic/compensated. (10) Hematoma of left thigh: 2nd to trauma. aspirin/eliquis both on hold. with resulting acute blood loss anemia. see below. heat to promote resolution. pain meds prn. (11) Urinary retention: s/p aldana placement. urine cx with VRE. difficult to know if UTI caused retention or retention led to UTI. either way cont aldana and Rx of UTI. (12) Acute blood loss anemia: significant drop from 11.2 on 06/11/20 to 7s. 2nd to left thigh hematoma, blood draws, etc. s/p 1 unit PRBC. H/H again stable. repeat H/H am. (13) Diabetes: appreciate pharmacy assistance. cont basal-bolus regimen. labile BSGs. (14) Hypothyroidism: TSH 04/2020 wnl. Cont synthroid. (15) Chronic bronchitis: Cont home inhalers. Not in exacerbation. (16) Scalp laceration: s/p staple removal x 2 yesterday lac healed (17) DVT prophylaxis: chemical means on hold due to left-sided thigh hematoma. SCDs only. updated at bedside again today. Silvia, daughter, extensively updated by phone 06/22 and today. left message for Silvia on 06/23 as well. Silvia coming for bedside visit tomorrow - will update her then. strongly consider palliative care consultation. Admission and Anticipated Discharge Date Admission Date: June 18, 2020 Subjective patient very awake during the visit. he moaned at times. I asked him why he was moaning - he could not give me a reason because he denied any pain today. states he stood during PT session today. eating well. still confused at times, but his "sense of humor is back" per . no bowel movement. tele with NSR. daughter coming tomorrow for a visit. Review of Systems Constitutional: + fatigue; no fever and no chills Respiratory: + cough (occasional ) Cardiovascular: no dyspnea at rest and no orthopnea Gastrointestinal: + constipation; no abdominal pain, no nausea and no vomiting Physical Exam Constitutional: + frail appearing; no acute distress (but moans intermittently ) and no altered mental status ENMT: external ear and nose normal, oropharynx normal Respiratory: no respiratory distress Auscultation: + crackles (Left base); no wheezes Cardiovascular: Rate/Rhythm: regular rhythm Heart Sounds: normal S1 and normal S2 Vessels: posterior tibial pulses present and dorsalis pedis pulses present; no JVD Extremities: + edema (trace b/l ) Gastrointestinal (Abdomen): Inspection/Auscultation: + abdomen distended (mild ) and normal bowel sounds Percussion/Palpation: abdomen nontender, no guarding and no hepatosplenomegaly Neurologic: moves all extremities (no facial droop ); no focal motor deficits Cranial Nerves: normal facial strength Psychiatric: Orientation: alert (very awake today; smiling; even laughing ), oriented to person, oriented to place and oriented to time Results & Data Results & Data ([facility]) Vital Signs (Past 12 Hours) Vital Signs Temp Pulse Pulse Pulse Resp BP Pulse Ox 06/25/20 19:42 36.7 C 77 20 125/65 95 06/25/20 17:13 74 06/25/20 15:00 72 06/25/20 14:52 36.4 C L 71 18 122/56 L 94 06/25/20 11:24 36.6 C 66 18 116/63 94 Laboratory Results Laboratory Results - last 24 hr 06/25/20 06/25/20 06/25/20 06:52 06:52 07:34 WBC 10.25 RBC 2.89 L Hgb 8.5 L Hct 28.2 L MCV 97.6 MCH 29.4 MCHC 30.1 L RDW Std Deviation 56.9 H RDW Coeff of Ruddy 16.3 H Plt Count 337 MPV 10.5 H Absolute Nucleated RBC 0.15 H Nucleated RBC % (auto) 1.5 Sodium 141 Potassium Chloride 113 H Carbon Dioxide 24 Anion Gap 4.0 BUN 29 H Creatinine 1.16 Est Cr Clr Drug Dosing 54.1 Est GFR ( Amer) 67.6 Est GFR (Non-Af Amer) 58.3 BUN/Creatinine Ratio 24.8 H Glucose 100 H POC Glucose 105 H Calcium 8.2 L 06/25/20 06/25/20 06/25/20 07:43 11:36 16:35 WBC RBC Hgb Hct MCV MCH MCHC RDW Std Deviation RDW Coeff of Ruddy Plt Count MPV Absolute Nucleated RBC Nucleated RBC % (auto) Sodium Potassium 4.4 Chloride Carbon Dioxide Anion Gap BUN Creatinine Est Cr Clr Drug Dosing Est GFR ( Amer) Est GFR (Non-Af Amer) BUN/Creatinine Ratio Glucose POC Glucose 186 H 190 H Calcium 06/25/20 19:51 WBC RBC Hgb Hct MCV MCH MCHC RDW Std Deviation RDW Coeff of Ruddy Plt Count MPV Absolute Nucleated RBC Nucleated RBC % (auto) Sodium Potassium Chloride Carbon Dioxide Anion Gap BUN Creatinine Est Cr Clr Drug Dosing Est GFR ( Amer) Est GFR (Non-Af Amer) BUN/Creatinine Ratio Glucose POC Glucose 142 H Calcium PG Care Time/CCT Total # of Minutes Spent Total Time Spent with Patient: Total time spent is greater than 50% in coordination of care (as documented) at patient's floor/unit and/or counseling patient: Coding Level of Care Code 82416 Subseq Hosp Care Lvl 3 Diagnoses Acute respiratory failure with hypoxia J96.01 Sepsis A41.9 Metabolic encephalopathy G93.41 NSTEMI (non-ST elevated myocardial infarction) I21.4 Atrial flutter, paroxysmal I48.92 Fracture of multiple ribs of both sides S22.43XD Encounter type: subsequent encounter Fracture healing: with routine healing Fracture type: closed Pneumothorax J93.9 Pneumothorax type: unspecified pneumothorax Pneumomediastinum J98.2 Chronic diastolic CHF (congestive heart failure) I50.32 Hematoma of left thigh S70.12XA Encounter type: initial encounter Urinary retention R33.9 Acute blood loss anemia D62 Diabetes E11.69; Z79.4 Diabetes mellitus complication status: with other specified complication Diabetes mellitus retirement insulin use: with retirement use Diabetes mellitus type: type 2 Hypothyroidism E03.9 Hypothyroidism type: acquired Chronic bronchitis J42 Chronic bronchitis type: unspecified Scalp laceration S01.01XA DVT prophylaxis Z29.9 (1) Diabetes Diabetes mellitus complication status: with other specified complication Diabetes mellitus director long term care insulin use: with director long term care use Diabetes mellitus type: type 2 Qualified Code(s): E11.69 - Type 2 diabetes mellitus with other specified complication; Z79.4 - director long term care (current) use of insulin (2) Pneumothorax Pneumothorax type: unspecified pneumothorax Qualified Code(s): J93.9 - Pneumothorax, unspecified (3) Hematoma of left thigh Encounter type: initial encounter Qualified Code(s): S70.12XA - Contusion of left thigh, initial encounter (4) Hypothyroidism Hypothyroidism type: acquired Qualified Code(s): E03.9 - Hypothyroidism, unspecified (5) Fracture of multiple ribs of both sides Encounter type: subsequent encounter Fracture healing: with routine healing Fracture type: closed Qualified Code(s): S22.43XD - Multiple fractures of ribs, bilateral, subsequent encounter for fracture with routine healing (6) Chronic bronchitis Chronic bronchitis type: unspecified Qualified Code(s): J42 - Unspecified chronic bronchitis
[2020-06-26] MEDS: CHECK fentaNYL PATCH PLACEMENT SCH ×4 (00:34→23:43)
[2020-06-26] MEDS: HYDROmorphone INJ 0.5 MG/0.5 ML SYR IV PRN ×2 (02:54→19:42)
[2020-06-26] MEDS: oxyCODONE HCL IR 5 MG TAB (IMMEDIATE RELEASE) PO PRN ×3 (02:54→23:43)
[2020-06-26] MEDS: LEVOTHYROXINE SODIUM 75 MCG TABLET PO SCH (05:30)
[2020-06-26 07:37] LABS: Hematocrit (blood only) 30.3 % (42-52); Hemoglobin 9.3 g/dL (14.0-18.0)
[2020-06-26 08:13] LABS: BUN Creatinine Ratio 22.3 (10-20); Calcium 8.5 mg/dl (8.5-10.1); Creatinine Clr Calc Pharmacy 53.6 ml/min; Est GFR (African American) 66.9; Est GFR (Non-African American) 57.7; Potassium 5.2 mmol/L (3.5-5.1)
[2020-06-26] MEDS: ACETAMINOPHEN 325 MG TAB PO SCH ×4 (08:19→21:26)
[2020-06-26] MEDS: AMIODARONE 200 MG TAB PO SCH ×2 (08:19→16:59)
[2020-06-26] MEDS: FLUTICASONE/VILANTEROL 100/25MCG 14 PUFFS/INHALER INH SCH (08:20)
[2020-06-26] MEDS: LIDOCAINE 5% 1 PATCH TD SCH (08:22)
[2020-06-26] MEDS: ESCITALOPRAM OXALATE 20 MG TAB PO SCH (08:22)
[2020-06-26] MEDS: METOPROLOL TARTRATE 50 MG TAB PO SCH ×2 (08:23→21:27)
[2020-06-26] MEDS: NYSTATIN SUSP 500,000 U/5 ML UDC PO SCH ×4 (08:23→21:27)
[2020-06-26] MEDS: MULTIVITAMIN TAB PO SCH (08:23)
[2020-06-26] MEDS: ASCORBIC ACID 500 MG TAB PO SCH (08:24)
[2020-06-26] MEDS: PANTOprazole 40 MG TAB PO SCH (08:24)
[2020-06-26] MEDS: UMECLIDINIUM BROMIDE 62.5MCG/BLISTER 7 PUFFS/INHALER INH SCH (09:20)
[2020-06-26] MEDS: INSULIN ASPART 100 UNITS/ML 3 ML PEN SC SCH ×4 (09:20→21:28)
[2020-06-26] MEDS: INSULIN GLARGINE SOLOSTAR 100 UNITS/ML 3 ML PEN SC SCH (09:22)
[2020-06-26] MEDS ORDERED: bisacodyL 5 MG TABEC PO ONE (09:27)
[2020-06-26] MEDS: POLYETHYLENE (MIRALAX) 17 GM PACK PO SCH (10:50)
[2020-06-26] MEDS: fentaNYL 12 MCG/HR TDSY TD SCH (12:43)
[2020-06-26] MEDS: CEFEPIME 2,000 MG in SYRINGE 0 ML IV SCH ×2 (13:01→23:43)
[2020-06-26] MEDS: DAPTOmycin 575 MG in SYRINGE 0 ML IV SCH (16:56)
[2020-06-26] MEDS: DIGOXIN 0.125 MG TAB PO SCH (16:59)
[2020-06-26] MEDS: FERROUS SULFATE 325 MG TAB PO SCH (21:27)
[2020-06-26] MEDS: CYANOCOBALAMIN 500 MCG TABLET (VITAMIN B-12) PO SCH (21:27)
--- NOTE | 2020-06-26 22:32 | Hospitalist Progress Note ---
Date of Service June 26, 2020 Assessment & Plan (1) Acute respiratory failure with hypoxia: Resolved. Multifactorial including hypoventilation/splinting from numerous b/l rib fractures and pneumonia of LLL. Continue IV cefepime - day #6 of such. Plan 7 days then stop. Did have small hemothorax on right during last hospital stay but this has resolved. Recent tiny L pneumothorax also resolved. COVID-19 PCR negative. (2) Sepsis: POA likely due to brewing LLL pneumonia. sepsis resolved. (3) Metabolic encephalopathy: Likely metabolic and toxic. resolved. Head CT neg this admission. Nonfocal neuro exam again today. Cannot rule out concussion from recent head injury as well contributing to mental status. (4) NSTEMI (non-ST elevated myocardial infarction): Troponin peak 5.66. Recent echo with several wall motion abnormalities. Appreciate cardiology consult/recommendations. Cont statin and beta morales. Aspirin and anticoagulation on hold due to thigh hematoma, recent right-sided hemothorax, etc. Resume aspirin in am. Poor candidate for any invasive testing. (5) Atrial flutter, paroxysmal: Converted back to NSR 3-4 days ago. Was problematic for him during prior hospital stay as well. Remains on digoxin and beta morales. Cont amiodarone 200mg BID. Anticoagulation on hold as noted. (6) Fracture of multiple ribs of both sides: Recent hospital stay for right-sided fractures 2nd to fall. Now with multiple left-sided fractures also 2nd to fall. Cont pain control -- tylenol scheduled; lidoderm patches; dilaudid in mckenna of tramadol; toradol prn; fentanyl patch; oxycodone prn. MARKEDLY IMPROVED / controlled. (7) Pneumothorax: 2nd to rib fractures. Left-sided. Tiny. Resolved on cxr. (8) Pneumomediastinum: 2nd to recent trauma. Small. No evidence of lingering pneumomediastinum. (9) Chronic diastolic CHF (congestive heart failure): Euvolemic/compensated. (10) Hematoma of left thigh: 2nd to trauma. aspirin/eliquis both on hold. but resume asa in am. with resulting acute blood loss anemia. see below. heat to promote resolution. pain meds prn. (11) Urinary retention: s/p aldana placement. urine cx with VRE. difficult to know if UTI caused retention or retention led to UTI. cont daptomycin. remove aldana tomorrow. (12) Acute blood loss anemia: significant drop from 11.2 on 06/11/20 to 7s. 2nd to left thigh hematoma, blood draws, etc. s/p 1 unit PRBC. H/H again stable. repeat H/H am. (13) Diabetes: appreciate pharmacy assistance. cont basal-bolus regimen. controlled. (14) Hypothyroidism: TSH 04/2020 wnl. Cont synthroid. (15) Chronic bronchitis: Cont home inhalers. Not in exacerbation. (16) Scalp laceration: s/p staple removal x 2 this admission. lac was from prior fall. lac healed (17) UTI (urinary tract infection): 2nd VRE cont daptomycin day #4 of 7 today (18) DVT prophylaxis: chemical means on hold due to left-sided thigh hematoma. SCDs only. and daughter updated at bedside today. strongly consider palliative care consultation. Admission and Anticipated Discharge Date Admission Date: June 18, 2020 Subjective no issues overnight. tele - NSR. rib pain relatively controlled. no bowel movement. breathing is comfortable. eating decently. has not been out of bed today. mental status slowly returning to baseline. daughter and at bedside today. still hoping for [employer] placement at discharge. Review of Systems Constitutional: no fever and no chills Respiratory: no cough Cardiovascular: no dyspnea at rest and no orthopnea Gastrointestinal: no abdominal pain Physical Exam Constitutional: + frail appearing; no acute distress and no altered mental status ENMT: Mouth: + oral mucosal abnormality (thrush improving ) and + dry oral mucous membranes Respiratory: no respiratory distress Auscultation: + crackles (Left base); no wheezes Cardiovascular: Rate/Rhythm: regular rhythm and + bradycardic Heart Sounds: normal S1 and normal S2 Vessels: posterior tibial pulses present and dorsalis pedis pulses present; no JVD Extremities: + edema (trace b/l ) Gastrointestinal (Abdomen): Inspection/Auscultation: + abdomen distended (mild ) and normal bowel sounds Percussion/Palpation: abdomen nontender, no guarding and no hepatosplenomegaly Skin: ecchymoses left hip and left flank region - resolving albeit slowly Neurologic: moves all extremities (no facial droop ); no focal motor deficits Psychiatric: Orientation: alert and oriented x 3 Results & Data Results & Data ([facility]) Vital Signs (Past 12 Hours) Vital Signs Temp Pulse Pulse Pulse Resp BP BP 06/26/20 19:00 36.5 C 57 L 20 128/70 06/26/20 16:59 56 L 06/26/20 16:46 54 L 06/26/20 15:54 36.7 C 54 L 20 112/61 06/26/20 11:15 36.4 C 54 L 18 101/55 L Pulse Ox 06/26/20 19:00 95 06/26/20 16:59 06/26/20 16:46 06/26/20 15:54 95 06/26/20 11:15 90 Laboratory Results Laboratory Results - last 24 hr 06/23/20 06/26/20 06/26/20 08:44 07:00 07:00 Hgb 9.3 L Hct 30.3 L Sodium 141 Potassium 5.2 H D Chloride 114 H Carbon Dioxide 23 Anion Gap 4.0 BUN 26 H Creatinine 1.17 Est Cr Clr Drug Dosing 53.6 Est GFR ( Amer) 66.9 Est GFR (Non-Af Amer) 57.7 BUN/Creatinine Ratio 22.3 H Glucose 81 POC Glucose Calcium 8.5 Crossmatch See Detail 06/26/20 06/26/20 06/26/20 07:59 11:33 16:40 Hgb Hct Sodium Potassium Chloride Carbon Dioxide Anion Gap BUN Creatinine Est Cr Clr Drug Dosing Est GFR ( Amer) Est GFR (Non-Af Amer) BUN/Creatinine Ratio Glucose POC Glucose 93 186 H 187 H Calcium Crossmatch 06/26/20 20:54 Hgb Hct Sodium Potassium Chloride Carbon Dioxide Anion Gap BUN Creatinine Est Cr Clr Drug Dosing Est GFR ( Amer) Est GFR (Non-Af Amer) BUN/Creatinine Ratio Glucose POC Glucose 165 H Calcium Crossmatch PG Care Time/CCT Total # of Minutes Spent Total Time Spent with Patient: Total time spent is greater than 50% in coordination of care (as documented) at patient's floor/unit and/or counseling patient: Coding Level of Care Code 11723 Subseq Hosp Care Lvl 3 Diagnoses Acute respiratory failure with hypoxia J96.01 Sepsis A41.9 Metabolic encephalopathy G93.41 NSTEMI (non-ST elevated myocardial infarction) I21.4 Atrial flutter, paroxysmal I48.92 Fracture of multiple ribs of both sides S22.43XD Encounter type: subsequent encounter Fracture healing: with routine healing Fracture type: closed Pneumothorax J93.9 Pneumothorax type: unspecified pneumothorax Pneumomediastinum J98.2 Chronic diastolic CHF (congestive heart failure) I50.32 Hematoma of left thigh S70.12XA Encounter type: initial encounter Urinary retention R33.9 Acute blood loss anemia D62 Diabetes E11.69; Z79.4 Diabetes mellitus complication status: with other specified complication Diabetes mellitus collections rep insulin use: with custodial use Diabetes mellitus type: type 2 Hypothyroidism E03.9 Hypothyroidism type: acquired Chronic bronchitis J42 Chronic bronchitis type: unspecified Scalp laceration S01.01XA UTI (urinary tract infection) N30.00 Urinary tract infection type: acute cystitis Hematuria presence: without hematuria DVT prophylaxis Z29.9 (1) Diabetes Diabetes mellitus complication status: with other specified complication Diabetes mellitus collections rep insulin use: with custodial use Diabetes mellitus type: type 2 Qualified Code(s): E11.69 - Type 2 diabetes mellitus with other specified complication; Z79.4 - skilled nursing (current) use of insulin (2) Pneumothorax Pneumothorax type: unspecified pneumothorax Qualified Code(s): J93.9 - Pneumothorax, unspecified (3) Hematoma of left thigh Encounter type: initial encounter Qualified Code(s): S70.12XA - Contusion of left thigh, initial encounter (4) Hypothyroidism Hypothyroidism type: acquired Qualified Code(s): E03.9 - Hypothyroidism, unspecified (5) Fracture of multiple ribs of both sides Encounter type: subsequent encounter Fracture healing: with routine healing Fracture type: closed Qualified Code(s): S22.43XD - Multiple fractures of ribs, bilateral, subsequent encounter for fracture with routine healing (6) Chronic bronchitis Chronic bronchitis type: unspecified Qualified Code(s): J42 - Unspecified chronic bronchitis (7) UTI (urinary tract infection) Urinary tract infection type: acute cystitis Hematuria presence: without hematuria Qualified Code(s): N30.00 - Acute cystitis without hematuria
[2020-06-27] MEDS: HYDROmorphone INJ 0.5 MG/0.5 ML SYR IV PRN ×3 (04:34→20:32)
[2020-06-27] MEDS ORDERED: COUGH DROP (SUGAR FREE) LOZ 24 LOZ/1 BOX BUCCAL ONE (04:40)
[2020-06-27 06:11] LABS: Hematocrit (blood only) 32.4 % (42-52); Hemoglobin 9.8 g/dL (14.0-18.0)
[2020-06-27] MEDS: LEVOTHYROXINE SODIUM 75 MCG TABLET PO SCH (06:25)
[2020-06-27 06:51] LABS: BUN Creatinine Ratio 20.9 (10-20); Calcium 8.8 mg/dl (8.5-10.1); Creatinine Clr Calc Pharmacy 52.8 ml/min; Est GFR (African American) 65.5; Est GFR (Non-African American) 56.5; Potassium 4.4 mmol/L (3.5-5.1)
[2020-06-27] MEDS: FLUTICASONE/VILANTEROL 100/25MCG 14 PUFFS/INHALER INH SCH (07:31)
[2020-06-27] MEDS: LIDOCAINE 5% 1 PATCH TD SCH (07:31)
[2020-06-27] MEDS: NYSTATIN SUSP 500,000 U/5 ML UDC PO SCH ×4 (07:32→20:34)
[2020-06-27] MEDS: PANTOprazole 40 MG TAB PO SCH (07:32)
[2020-06-27] MEDS: ACETAMINOPHEN 325 MG TAB PO SCH ×4 (07:32→20:32)
[2020-06-27] MEDS: UMECLIDINIUM BROMIDE 62.5MCG/BLISTER 7 PUFFS/INHALER INH SCH (07:32)
[2020-06-27] MEDS: ASCORBIC ACID 500 MG TAB PO SCH (07:32)
[2020-06-27] MEDS: POLYETHYLENE (MIRALAX) 17 GM PACK PO SCH (07:32)
[2020-06-27] MEDS: AMIODARONE 200 MG TAB PO SCH ×2 (07:33→16:29)
[2020-06-27] MEDS: METOPROLOL TARTRATE 50 MG TAB PO SCH ×2 (07:33→20:34)
[2020-06-27] MEDS: MULTIVITAMIN TAB PO SCH (07:33)
[2020-06-27] MEDS: ESCITALOPRAM OXALATE 20 MG TAB PO SCH (07:33)
[2020-06-27] MEDS: CHECK fentaNYL PATCH PLACEMENT SCH ×2 (07:34→16:31)
[2020-06-27] MEDS: INSULIN ASPART 100 UNITS/ML 3 ML PEN SC SCH ×4 (08:25→21:57)
[2020-06-27] MEDS: INSULIN GLARGINE SOLOSTAR 100 UNITS/ML 3 ML PEN SC SCH (08:26)
[2020-06-27] MEDS: SENNA 8.6 MG TAB PO SCH (10:04)
[2020-06-27] MEDS: ASPIRIN 81 MG ECTAB PO SCH (10:04)
[2020-06-27] MEDS: CEFEPIME 2,000 MG in SYRINGE 0 ML IV SCH (12:35)
[2020-06-27] MEDS: oxyCODONE HCL IR 5 MG TAB (IMMEDIATE RELEASE) PO PRN (14:26)
[2020-06-27] MEDS: DAPTOmycin 575 MG in SYRINGE 0 ML IV SCH (16:27)
[2020-06-27] MEDS: DIGOXIN 0.125 MG TAB PO SCH (16:29)
[2020-06-27] MEDS: FERROUS SULFATE 325 MG TAB PO SCH (20:33)
[2020-06-27] MEDS: CYANOCOBALAMIN 500 MCG TABLET (VITAMIN B-12) PO SCH (20:34)
[2020-06-27] MEDS ORDERED: SOD PHOSPHATE/SOD BIPHOSPHATE ENEMA 132 ML BTL PR STA (21:14)
[2020-06-27] MEDS ORDERED: SOD PHOSPHATE/SOD BIPHOSPHATE ENEMA 132 ML BTL PR PRN (21:14)
[2020-06-28] MEDS: HYDROmorphone INJ 0.5 MG/0.5 ML SYR IV PRN ×3 (01:18→22:22)
[2020-06-28] MEDS: CHECK fentaNYL PATCH PLACEMENT SCH ×3 (01:20→16:48)
[2020-06-28] MEDS: oxyCODONE HCL IR 5 MG TAB (IMMEDIATE RELEASE) PO PRN ×2 (04:18→22:22)
[2020-06-28] MEDS: LEVOTHYROXINE SODIUM 75 MCG TABLET PO SCH ×2 (06:17→06:20)
[2020-06-28] MEDS: METOPROLOL TARTRATE 50 MG TAB PO SCH ×2 (07:47→22:20)
[2020-06-28] MEDS: ESCITALOPRAM OXALATE 20 MG TAB PO SCH (07:48)
[2020-06-28] MEDS: ASCORBIC ACID 500 MG TAB PO SCH (07:48)
[2020-06-28] MEDS: MULTIVITAMIN TAB PO SCH (07:48)
[2020-06-28] MEDS: AMIODARONE 200 MG TAB PO SCH ×2 (07:48→16:51)
[2020-06-28] MEDS: SENNA 8.6 MG TAB PO SCH (07:48)
[2020-06-28] MEDS: ASPIRIN 81 MG ECTAB PO SCH (07:48)
[2020-06-28] MEDS: PANTOprazole 40 MG TAB PO SCH (07:48)
[2020-06-28] MEDS: ACETAMINOPHEN 325 MG TAB PO SCH ×4 (07:49→22:20)
[2020-06-28] MEDS: UMECLIDINIUM BROMIDE 62.5MCG/BLISTER 7 PUFFS/INHALER INH SCH (07:50)
[2020-06-28] MEDS: INSULIN GLARGINE SOLOSTAR 100 UNITS/ML 3 ML PEN SC SCH (07:50)
[2020-06-28] MEDS: LIDOCAINE 5% 1 PATCH TD SCH (07:50)
[2020-06-28] MEDS: POLYETHYLENE (MIRALAX) 17 GM PACK PO SCH ×2 (07:50→22:20)
[2020-06-28] MEDS: FLUTICASONE/VILANTEROL 100/25MCG 14 PUFFS/INHALER INH SCH (07:51)
[2020-06-28] MEDS: NYSTATIN SUSP 500,000 U/5 ML UDC PO SCH ×4 (07:51→22:20)
[2020-06-28] MEDS: INSULIN ASPART 100 UNITS/ML 3 ML PEN SC SCH ×4 (07:53→20:51)
--- NOTE | 2020-06-28 08:13 | Hospitalist Progress Note ---
Date of Service June 27, 2020 Assessment & Plan (1) Acute respiratory failure with hypoxia: Resolved. Multifactorial including hypoventilation/splinting from numerous b/l rib fractures and pneumonia of LLL. Completed 7 days of cefepime - stop after tonight's dose. Did have small hemothorax on right during last hospital stay but this has resolved. Recent tiny L pneumothorax also resolved. COVID-19 PCR negative. Patient does use [place] O2 at night-time chronically at home but remains w/o hypoxia during the day. (2) Sepsis: POA likely due to brewing LLL pneumonia. sepsis resolved. (3) Metabolic encephalopathy: Likely metabolic and toxic. Metabolic from UTI, pneumonia, etc. Toxic from pain meds, etc. Head CT neg this admission. Nonfocal neuro exam during the hospital stay. Cannot rule out concussion from recent head injury as well contributing to mental status. (4) NSTEMI (non-ST elevated myocardial infarction): Troponin peak 5.66. Recent echo with several wall motion abnormalities. Appreciate cardiology consult/recommendations. Cont statin and beta morales. Cont aspirin. Anticoagulation on hold due to thigh hematoma, recent right-sided hemothorax, etc. Poor candidate for any invasive testing. (5) Atrial flutter, paroxysmal: Converted back to NSR 4 days ago and has remained NSR since. Was problematic for him during prior hospital stay necessitating numerous med changes. Remains on digoxin and beta morales. Cont amiodarone 200mg BID. Anticoagulation on hold as noted above. (6) Fracture of multiple ribs of both sides: Recent hospital stay for right-sided fractures 2nd to fall. Now with multiple left-sided fractures also 2nd to fall. Cont pain control -- tylenol scheduled; lidoderm patches; dilaudid in mckenna of tramadol; toradol prn; fentanyl patch; oxycodone prn. Pain MARKEDLY IMPROVED / controlled especially w/ recent addition of fentanyl patch. (7) Pneumothorax: 2nd to rib fractures. Left-sided. Tiny. Resolved on cxr. (8) Pneumomediastinum: 2nd to recent trauma. Small. No evidence of lingering pneumomediastinum. (9) Chronic diastolic CHF (congestive heart failure): Euvolemic/compensated. (10) Hematoma of left thigh: 2nd to trauma. eliquis still on hold. resumed 81mg asa daily. with resulting acute blood loss anemia. see below. heat to promote resolution. pain meds prn. (11) Urinary retention: s/p aldana placement. urine cx with VRE. difficult to know if UTI caused retention or retention led to UTI. cont daptomycin. remove aldana; trial of void. can always place back if needed. (12) Acute blood loss anemia: significant drop from 11.2 on 06/11/20 to 7s. 2nd to left thigh hematoma, blood draws, etc. s/p 1 unit PRBCs this admission. H/H stable since then. (13) Diabetes: appreciate pharmacy assistance. cont basal-bolus regimen. controlled. (14) Hypothyroidism: TSH 04/2020 wnl. Cont synthroid. (15) Chronic bronchitis: Cont home inhalers. Not in exacerbation. (16) Scalp laceration: s/p staple removal x 2 this admission. lac was from prior fall. lac healed (17) UTI (urinary tract infection): 2nd VRE cont daptomycin day #5 of 7 today (18) DVT prophylaxis: chemical means on hold due to left-sided thigh hematoma. SCDs only. and daughter updated at bedside yesterday; left message for his daughter, Silvia, this evening. Silvia is a RN at [employer] near [place]. strongly consider palliative care consultation. Admission and Anticipated Discharge Date Admission Date: June 18, 2020 Subjective during my visit pt's was not at bedside. he was oriented to person and place along with year but throughout the encounter he kept moaning. when I would ask him what was wrong he would sometimes just stare at me, and at other times he would say "I just don't feel good." asked if he was in pain he would say yes -- "my back." denied feeling short of breath. according to flowsheets on door eating 50-100% of meals. still no bowel movement. Review of Systems Constitutional: + fatigue Respiratory: no cough and no dyspnea Cardiovascular: no chest pain Gastrointestinal: + bloating and + constipation; no nausea Physical Exam Constitutional: + acute distress (Moaning) and + frail appearing; no altered mental status ENMT: Mouth: + oral mucosal abnormality (thrush improving ) and + dry oral mucous membranes Respiratory: no respiratory distress Auscultation: + crackles (Left base); no wheezes Cardiovascular: Rate/Rhythm: regular rhythm and + bradycardic Heart Sounds: normal S1 and normal S2 Vessels: posterior tibial pulses present and dorsalis pedis pulses present; no JVD Extremities: + edema (trace b/l ) Gastrointestinal (Abdomen): Inspection/Auscultation: + abdomen distended (mild ) and normal bowel sounds Percussion/Palpation: abdomen nontender, no guarding and no hepatosplenomegaly Neurologic: no focal motor deficits Psychiatric: Orientation: alert, oriented to person and oriented to place; + not oriented to time Results & Data Results & [facility] ([facility]) Vital Signs (Past 12 Hours) Vital Signs Temp Pulse Pulse Pulse Resp BP BP 06/28/20 07:39 36.7 C 77 18 144/73 H 06/28/20 04:00 37.1 C 69 20 168/71 H 06/28/20 01:25 58 L 06/27/20 23:00 36.7 C 61 20 149/68 H Pulse Ox 06/28/20 07:39 90 06/28/20 04:00 93 06/28/20 01:25 06/27/20 23:00 93 BMP wnl PG Care Time/CCT Total # of Minutes Spent Total Time Spent with Patient: Total time spent is greater than 50% in coordination of care (as documented) at patient's floor/unit and/or counseling patient: Coding Level of Care Code 10471 Subseq Hosp Care Lvl 3 Diagnoses Acute respiratory failure with hypoxia J96.01 Sepsis A41.9 Metabolic encephalopathy G93.41 NSTEMI (non-ST elevated myocardial infarction) I21.4 Atrial flutter, paroxysmal I48.92 Fracture of multiple ribs of both sides S22.43XD Encounter type: subsequent encounter Fracture healing: with routine healing Fracture type: closed Pneumothorax J93.9 Pneumothorax type: unspecified pneumothorax Pneumomediastinum J98.2 Chronic diastolic CHF (congestive heart failure) I50.32 Hematoma of left thigh S70.12XA Encounter type: initial encounter Urinary retention R33.9 Acute blood loss anemia D62 Diabetes E11.69; Z79.4 Diabetes mellitus complication status: with other specified complication Diabetes mellitus rn long term care insulin use: with senior care use Diabetes mellitus type: type 2 Hypothyroidism E03.9 Hypothyroidism type: acquired Chronic bronchitis J42 Chronic bronchitis type: unspecified Scalp laceration S01.01XA UTI (urinary tract infection) N30.00 Hematuria presence: without hematuria Urinary tract infection type: acute cystitis DVT prophylaxis Z29.9 (1) UTI (urinary tract infection) Hematuria presence: without hematuria Urinary tract infection type: acute cystitis Qualified Code(s): N30.00 - Acute cystitis without hematuria (2) Diabetes Diabetes mellitus complication status: with other specified complication Diabetes mellitus senior care insulin use: with senior care use Diabetes mellitus type: type 2 Qualified Code(s): E11.69 - Type 2 diabetes mellitus with other specified complication; Z79.4 - manager terminal (current) use of insulin (3) Pneumothorax Pneumothorax type: unspecified pneumothorax Qualified Code(s): J93.9 - Pneumothorax, unspecified (4) Hematoma of left thigh Encounter type: initial encounter Qualified Code(s): S70.12XA - Contusion of left thigh, initial encounter (5) Hypothyroidism Hypothyroidism type: acquired Qualified Code(s): E03.9 - Hypothyroidism, unspecified (6) Fracture of multiple ribs of both sides Encounter type: subsequent encounter Fracture healing: with routine healing Fracture type: closed Qualified Code(s): S22.43XD - Multiple fractures of ribs, bilateral, subsequent encounter for fracture with routine healing (7) Chronic bronchitis Chronic bronchitis type: unspecified Qualified Code(s): J42 - Unspecified chronic bronchitis
[2020-06-28 08:38] LABS: Est GFR (African American) 61.8; Est GFR (Non-African American) 53.3; Potassium 4.3 mmol/L (3.5-5.1)
--- NOTE | 2020-06-28 10:19 | Pharmacy Report ---
Glycemic Control Progress Note - Date of Service June 28, 2020 - Scope Glycemic Pharmacist consulted for glycemic control to write orders per [facility] inpatient glycemic control protocol. - Objective Accuchecks BSG(last 24 hours):: 06/27/20 06/27/20 06/27/20 11:36 16:53 20:30 Glucose POC Glucose 119 H 80 95 06/28/20 06/28/20 07:16 07:25 Glucose 89 POC Glucose 117 H - Recent Pertinent Medications The patient is currently receiving: * Basal insulin: Lantus 40 units every 24 hours * Correctional Insulin: Novolog Correction per scale ACHS Goal Range: Low 110 mg/dL - High 140 mg/dL Correction Factor: 15 mg/dL/unit * Prandial insulin: Per carb ratio of 1 unit per 4 grams CHO consumed - Outpatient Anti-Diabetic Meds Lantus 45 units in the morning metformin - Assessment & Plan ASSESSMENT: * See progress note from 06/20/2020 for more background info, in short: * Pt receiving SQ basal bolus insulin regimen for hyperglycemia secondary to baseline DM (outpatient regimen on hold) and UTI (currently on daptomycin) * Patient is currently receiving an average of 81 units of insulin per day * 40 units of basal insulin * 41 units of prandial/correctional insulin * BSGs ranging 80 - 135 mg/dl over the past 24hrs * Changes needed to insulin regimen: * AM Fasting BSG = 117 mg/dl. This is in goal range for patient based on inpatient targets and co-morbidities. Therefore Basal insulin will be continued. * Post-prandial BSGs are in range therefore no changes needed to CF/CR. May require loosening of carbohydrate ratio as BSGs did trend downwards yesterday. Will monitor as this was a unique trend for him. * Total daily dose = ~60 units. Patient did receive slightly more insulin yesterday but this may be due to improve diet. Continue to follow. PLAN FOR INPATIENT GLYCEMIC CONTROL: * Continuing Lantus 40 units SQ daily * Continuing correction factor of 15 mg/dl/unit * Continuing carb ratio of 1 unit per 4 grams CHO consumed * Continuing goal range of Low 110 mg/dL - High 140 mg/dL * Please note that the plan above was derived based on current level of insulin resistance and hospital stress. These recommendations are appropriate for inpatient admission only. Plan of care upon discharge will need to be reassessed to avoid potential outpatient hypo/hyperglycemia. Thank you.
[2020-06-28] MEDS: CARBOHYDRATES FOR HYPOGLYCEMIA PO PRN ×2 (11:00→16:54)
--- NOTE | 2020-06-28 11:03 | Palliative Care Consultation ---
Date of Consultation June 28, 2020 Assessment & Plan (1) Palliative care encounter: This patient is an 80 year old male who has a PMH that includes: CHF, COPD, metabolic encephalopathy, NSTEMI, Afib, PNA, hypothyroidism and others. He presented to the [facility] with increased pain related to numerous rib fractures from falls recently. His pain is being managed with Lidocaine patches at this time. The patient has been established with Palliative Care telehealth through [facility] in the recent past this year. Palliative Care was consulted to discuss goals of care. I met with the patient in room 250. He was sitting in his bedside chair eating lunch in no apparent distress. His ,Jair was at his side. Patient able to answer questions, but not reliably and not to the point of being confident in his understanding of the complexity of his illness. I did witness the patient transition from chair to bed with one assist of his . We had a lengthy conversation about Willi and his stated that they have had Palliative Care telehealth involved multiple times this year, in 2019, but she felt overall the home health approach was not fulfilling his needs. She feels that they just weighed him and looked at this medications, and aside from the PT/OT assessments did not feel happy about returning home with home health. She was clear she wants him to gain strength , but also has fears about him declining mentally and physically if he does go to a SNF, even short term. The patients daughter, Silvia, is an RN and a eligibility supervisor at a SNF in [place]. I mentioned the word hospice to Jair and she was quick to reply "we are not ready for hospice". I went into details about what Hospice is and then she asked me to talk to her daughter. Her daughter, Silvia, was actually calling in and I was able to talk with her at length. Silvia is realistic in knowing that her father would qualify for Hospice and also does have reservations about him proceeding to a SNF with a likely mental decline as he does enjoy his and she helps provide him with a considerable amount of care. Silvia plans to talk to her mother this evening and may even be visiting on Sunday. In discussion with Silvia, she also agrees her mother may not be ready for Hospice, but believes trialing hospice may benefit the patient and knowing they can revoke if they find hospice does not meet their expectations. Discussed the above with case management who stated that at this time, likely [facility] is the only option to pursue if SNF is entertained. PT/OT is ordered. Dr. Clay updated. Palliative Care will follow to determine goals of care for this individual. (2) Recurrent falls: (3) Chronic diastolic CHF (congestive heart failure): (4) Acute respiratory failure with hypoxia: History of Present Illness Reason for Consultation: Goals of Care Requesting Physician: Dr. Clay Attending Physician: Raleigh Clay MD History of Present Illness This patient is an 80 year old male who has a PMH that includes: CHF, COPD, metabolic encephalopathy, NSTEMI, Afib, PNA, hypothyroidism and others. He presented to the [facility] with increased pain related to numerous rib fractures from falls recently. His pain is being managed with Lidocaine patches at this time. The patient has been established with Palliative Care telehealth through [facility] in the recent past this year. Palliative Care was consulted to discuss goals of care. Please see A/P for further details. Thank you kindly for involving the palliative care consultation service with this individual. Allergies Allergy/AdvReac Type Severity Reaction Status Date / Time moxifloxacin Allergy Severe throat Verified 06/18/20 14:50 swelling ofloxacin Allergy Severe SWELLING Verified 06/18/20 14:50 AROUND FACE Quinolones Allergy Severe ANAPHYLAXIS Verified 06/18/20 14:50 formoterol Allergy Intermediate RASH Verified 06/18/20 14:50 Sulfa (Sulfonamide Allergy Intermediate severe red Verified 06/18/20 14:50 Antibiotics) rash Home Medications Home Medications Medication Instructions Recorded Confirmed Type cyanocobalamin (vitamin B-12) 500 mcg PO HS 05/02/19 06/18/20 History [Vitamin B-12] magnesium oxide 500 mg tablet 500 mg PO BID tab 05/07/19 06/18/20 History albuterol sulfate 2.5 mg INH Q4H PRN #360 ml 11/25/19 06/18/20 Rx albuterol sulfate 90 mcg/actuation 2 puffs INH Q4H PRN #8.5 gm 02/11/20 06/18/20 Rx aerosol inhaler simvastatin 80 mg tablet 40 mg PO HS #90 tab 03/03/20 06/18/20 Rx multivitamin with minerals 1 tab PO QAM 03/27/20 06/18/20 History [Multiple Vitamin-Minerals] Lift Chair #1 ea 05/03/20 06/16/20 Rx Lift Chair #1 ea 05/03/20 06/16/20 Rx ascorbic acid (vitamin C) [Vitamin 500 mg PO QAM 05/03/20 06/18/20 History C] escitalopram oxalate 20 mg tablet 20 mg PO QAM #90 tab 05/13/20 06/18/20 Rx insulin glargine 100 unit/mL (3 45 unit SC QAM ml 05/18/20 06/18/20 History mL) subcutaneous pen metformin 1,000 mg tablet 1,000 mg PO BID #180 tab 05/21/20 06/18/20 Rx ferrous sulfate 325 mg PO HS 06/01/20 06/18/20 History omeprazole 40 mg PO QAM 06/01/20 06/18/20 History apixaban [Eliquis] 5 mg PO BID #60 tab 06/11/20 06/18/20 Rx furosemide 40 mg PO DAILY PRN #30 tab 06/11/20 06/18/20 Rx lidocaine 3 patch TRANSDERMAL QAM #60 ea 06/11/20 06/18/20 Rx metoprolol tartrate 37.5 mg PO BID #60 tab 06/11/20 06/18/20 Rx tramadol 50 mg PO Q6H PRN #20 tab 06/11/20 06/18/20 Rx lancets #100 ea 06/17/20 Rx digoxin [Digox] 125 mcg PO QAM 06/18/20 06/18/20 History levothyroxine 75 mcg tablet 37.5 - 75 mcg PO DAILY tab 06/18/20 History Patient History Medical History (Updated 06/28/20 @ 11:03 by ONEYDA Mart) Anxiety Atrial fibrillation with rapid ventricular response Atrial flutter on xarelto Atrial flutter, paroxysmal Chronic bronchitis Chronic diastolic CHF (congestive heart failure) Coronary arteriosclerosis Depression Diabetes mellitus type 2 in nonobese Fall GERD (gastroesophageal reflux disease) Heart disease IRREGULAR RHYTHYM HTN (hypertension) Iron deficiency anemia Kidney stones Left ventricular outflow tract obstruction skilled nursing current use of systemic steroids Mild HOCM (hypertrophic obstructive cardiomyopathy) Multiple fractures of rib involving four or more ribs Nephrolithiasis Obstructive sleep apnea On anticoagulant therapy xarelto daily On home oxygen therapy 2L N/C at hs Organic impotence Palliative care encounter Pericardial effusion Pleural effusion HX OF Prostate cancer Steroid-induced osteopenia Surgical History H/O cystoscopy "History of Cystoscopy With Insertion Of Ureteral Stent" on CCD H/O tooth extraction History of bronchoscopy History of cardiac radiofrequency ablation History of prostatectomy History of repair of right rotator cuff Hx of colonoscopy Hx of esophagogastroduodenoscopy Family History Sister Ovarian cancer Mother Skin cancer Myocardial infarction Grandfather Myocardial infarction Other No family history of adverse response to anesthesia Stroke Denies family history of Prostate cancer Breast cancer Colorectal cancer Social History Smoking Status: Never smoker Second Hand Exposure: No; Hx Alcohol Use: No Hx Substance Use: No Preferred Language: Thai Communication Ability: Effective Visual Impairment: No Limitations Hearing Ability: Use of Hearing Aid Desktop Administrator Required: No Beliefs That Will Affect Care: None marital status: Current Living Situation: Spouse current occupational status: retired Feels Safe at Home: Yes Childhood Exposure to Second-Hand Smoke: No caffeine: Yes during the past year weight has: remained stable Dental Care, Regularly: No Physical Activity Frequency: Does not Exercise Seatbelt Use: always Sunscreen Use: No Assistive Devices: None Review of Systems Review of Systems: Unobtainable due to cognitive status Physical Exam Constitutional: + obese and cooperative Respiratory: normal respiratory effort, lungs clear to auscultation Cardiovascular: Heart Sounds: normal S1 and normal S2 Extremities: normal capillary refill and + edema Gastrointestinal (Abdomen): normal bowel sounds, soft, nontender, no hepatosplenomegaly Skin: no rashes, warm and dry + ecchymosis and + pallor Psychiatric: Orientation: alert, oriented to person and cooperative Insight: + poor insight Judgement: + poor judgement Results & Data ([facility]) Vital Signs (Past 12 Hours) Vital Signs Temp Pulse Pulse Pulse Resp BP BP 06/28/20 09:04 79 06/28/20 07:39 36.7 C 77 18 144/73 H 06/28/20 04:00 37.1 C 69 20 168/71 H 06/28/20 01:25 58 L Pulse Ox 06/28/20 09:04 06/28/20 07:39 90 06/28/20 04:00 93 06/28/20 01:25 PG Care Time/CCT Total # of Minutes Spent Total Time Spent with Patient: Total time spent is greater than 50% in coordination of care (as documented) at patient's floor/unit and/or counseling patient: 100 Coding Level of Care Code 90465 Inpt Consult Level 4 Diagnoses Palliative care encounter Z51.5 Recurrent falls R29.6 Chronic diastolic CHF (congestive heart failure) I50.32 Acute respiratory failure with hypoxia J96.01 Time Spent (min) 100 Time Spent Midlevel Total time spent 100 minutes with > 50% of that time spent assessing the patient, discussing goals of care with and daughter, and collaborating with the IDT
--- NOTE | 2020-06-28 15:44 | Hospitalist Progress Note ---
Date of Service June 28, 2020 Assessment & Plan (1) Acute respiratory failure with hypoxia: Resolved. Multifactorial including hypoventilation/splinting from numerous b/l rib fractures and pneumonia of LLL. Completed 7 days of cefepime Did have small hemothorax on right during last hospital stay but this has resolved. Recent tiny L pneumothorax also resolved. COVID-19 PCR negative. Patient does use [place] O2 at night-time chronically at home but remains w/o hypoxia during the day. (2) Sepsis: POA sepsis resolved. (3) Metabolic encephalopathy: Metabolic from UTI, pneumonia, etc. Head CT neg this admission. Nonfocal neuro exam during the hospital stay. Supportive care (4) NSTEMI (non-ST elevated myocardial infarction): Troponin peak 5.66. Recent echo with several wall motion abnormalities. Appreciate cardiology consult/recommendations. Cont statin and beta morales. Cont aspirin. Anticoagulation on hold due to thigh hematoma, recent right-sided hemothorax, etc. Poor candidate for any invasive testing. (5) Atrial flutter, paroxysmal: Converted back to NSR and has remained NSR since. Remains on digoxin and beta morales. Cont amiodarone 200mg BID. Anticoagulation on hold as noted above. (6) Fracture of multiple ribs of both sides: Recent hospital stay for right-sided fractures 2nd to fall. Now with multiple left-sided fractures also 2nd to fall. Cont pain control -- tylenol scheduled; lidoderm patches; dilaudid in mckenna of tramadol; toradol prn; fentanyl patch; oxycodone prn. Pain improved w/ recent addition of fentanyl patch. (7) Pneumothorax: 2nd to rib fractures. Left-sided. Tiny. Resolved on cxr. (8) Pneumomediastinum: 2nd to recent trauma. Small. No evidence of lingering pneumomediastinum. (9) Chronic diastolic CHF (congestive heart failure): Euvolemic/compensated. (10) Hematoma of left thigh: 2nd to trauma. eliquis still on hold. resumed 81mg asa daily. with resulting acute blood loss anemia. heat to promote resolution. pain meds prn. (11) Urinary retention: s/p aldana placement. urine cx with VRE. difficult to know if UTI caused retention or retention led to UTI. cont daptomycin, day 6 of 7. (12) Acute blood loss anemia: significant drop from 11.2 on 06/11/20 to 7s. 2nd to left thigh hematoma, blood draws, etc. s/p 1 unit PRBCs this admission. H/H stable since then. (13) Diabetes: appreciate pharmacy assistance. cont basal regimen. controlled. (14) Hypothyroidism: TSH 04/2020 wnl. Cont synthroid. (15) Chronic bronchitis: Cont home inhalers. Not in exacerbation. (16) Scalp laceration: s/p staple removal x 2 this admission. lac was from prior fall. lac healed (17) UTI (urinary tract infection): 2nd VRE cont daptomycin day #6 of 7 (18) DVT prophylaxis: chemical means on hold due to left-sided thigh hematoma. SCDs only. at bedside today Silvia is a RN at [facility] [place]. Disposition: To be determined. Palliative care consultation. Admission and Anticipated Discharge Date Admission Date: June 18, 2020 Subjective Apparently constipated according to the . He is awake but nonverbal with me. Palliative care has seen the patient and family is deciding what to do. Hemoglobin 9.8 after 1 unit packed red blood cells this admission. Currently on daptomycin day 6 of 7 for the VRE UTI. He has completed cefepime for the pneumonia. Review of Systems Review of Systems: Unobtainable due to cognitive status Physical Exam Physical Exam: General-awake. Nonverbal with me HEENT-head atraumatic and normocephalic, TMs intact bilaterally, pupils equal and reactive to light, extraocular muscles intact Neck-no lymphadenopathy or thyromegaly, trachea midline Chest-clear to auscultation percussion. No rales wheezing or rhonchi Cardiac-regular rate and rhythm, normal S1 and S2, no murmurs Abdomen-normal bowel sounds, nontender, no hepatosplenomegaly Extremities-no cyanosis, clubbing, or edema Neuro-generalized weakness. No apparent focal motor deficits Psych-difficult to assess. Nonverbal with me Results & Data Results & Data ([facility]) Vital Signs (Past 12 Hours) Vital Signs Temp Pulse Pulse Pulse Resp BP BP 06/28/20 09:04 79 06/28/20 07:39 36.7 C 77 18 144/73 H 06/28/20 04:00 37.1 C 69 20 168/71 H Pulse Ox 06/28/20 09:04 11/09/20 07:39 90 06/28/20 04:00 93 Laboratory Results 06/27/20 05:57 06/28/20 07:16 PG Care Time/CCT Total # of Minutes Spent Total Time Spent with Patient: Total time spent is greater than 50% in coordination of care (as documented) at patient's floor/unit and/or counseling patient: Coding Level of Care Code 05918 Subseq Hosp Care Lvl 3 Diagnoses Acute respiratory failure with hypoxia J96.01 Sepsis A41.9 Metabolic encephalopathy G93.41 NSTEMI (non-ST elevated myocardial infarction) I21.4 Atrial flutter, paroxysmal I48.92 Fracture of multiple ribs of both sides S22.43XD Encounter type: subsequent encounter Fracture healing: with routine healing Fracture type: closed Pneumothorax J93.9 Pneumothorax type: unspecified pneumothorax Pneumomediastinum J98.2 Chronic diastolic CHF (congestive heart failure) I50.32 Hematoma of left thigh S70.12XA Encounter type: initial encounter Urinary retention R33.9 Acute blood loss anemia D62 Diabetes E11.69; Z79.4 Diabetes mellitus type: type 2 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: with terminal press operator use Diabetes mellitus complication status: with other specified complication Hypothyroidism E03.9 Hypothyroidism type: acquired Chronic bronchitis J42 Chronic bronchitis type: unspecified Scalp laceration S01.01XA UTI (urinary tract infection) N30.00 Urinary tract infection type: acute cystitis Hematuria presence: without hematuria DVT prophylaxis Z29.9 (1) Fracture of multiple ribs of both sides Encounter type: subsequent encounter Fracture healing: with routine healing Fracture type: closed Qualified Code(s): S22.43XD - Multiple fractures of ribs, bilateral, subsequent encounter for fracture with routine healing (2) Pneumothorax Pneumothorax type: unspecified pneumothorax Qualified Code(s): J93.9 - Pneumothorax, unspecified (3) Hematoma of left thigh Encounter type: initial encounter Qualified Code(s): S70.12XA - Contusion of left thigh, initial encounter (4) Diabetes Diabetes mellitus type: type 2 Diabetes mellitus intermediate insulin use: with intermediate use Diabetes mellitus complication status: with other specified complication Qualified Code(s): E11.69 - Type 2 diabetes mellitus with other specified complication; Z79.4 - custodial (current) use of insulin (5) Hypothyroidism Hypothyroidism type: acquired Qualified Code(s): E03.9 - Hypothyroidism, unspecified (6) Chronic bronchitis Chronic bronchitis type: unspecified Qualified Code(s): J42 - Unspecified chronic bronchitis (7) UTI (urinary tract infection) Urinary tract infection type: acute cystitis Hematuria presence: without hematuria Qualified Code(s): N30.00 - Acute cystitis without hematuria
[2020-06-28] MEDS: DAPTOmycin 575 MG in SYRINGE 0 ML IV SCH (16:48)
[2020-06-28] MEDS: DIGOXIN 0.125 MG TAB PO SCH (16:51)
[2020-06-28] MEDS: FERROUS SULFATE 325 MG TAB PO SCH (22:21)
[2020-06-28] MEDS: CYANOCOBALAMIN 500 MCG TABLET (VITAMIN B-12) PO SCH (22:21)
[2020-06-29] MEDS: CHECK fentaNYL PATCH PLACEMENT SCH ×4 (00:40→23:05)
[2020-06-29] MEDS: oxyCODONE HCL IR 5 MG TAB (IMMEDIATE RELEASE) PO PRN ×3 (06:20→19:55)
[2020-06-29] MEDS: LEVOTHYROXINE SODIUM 75 MCG TABLET PO SCH (06:20)
[2020-06-29] MEDS: INSULIN ASPART 100 UNITS/ML 3 ML PEN SC SCH ×4 (08:13→21:46)
[2020-06-29] MEDS: FLUTICASONE/VILANTEROL 100/25MCG 14 PUFFS/INHALER INH SCH (08:14)
[2020-06-29] MEDS: LIDOCAINE 5% 1 PATCH TD SCH (08:14)
[2020-06-29] MEDS: ASPIRIN 81 MG ECTAB PO SCH (08:15)
[2020-06-29] MEDS: NYSTATIN SUSP 500,000 U/5 ML UDC PO SCH ×4 (08:15→20:02)
[2020-06-29] MEDS: UMECLIDINIUM BROMIDE 62.5MCG/BLISTER 7 PUFFS/INHALER INH SCH (08:15)
[2020-06-29] MEDS: INSULIN GLARGINE SOLOSTAR 100 UNITS/ML 3 ML PEN SC SCH (08:15)
[2020-06-29] MEDS: ACETAMINOPHEN 325 MG TAB PO SCH ×4 (08:15→19:59)
[2020-06-29] MEDS: AMIODARONE 200 MG TAB PO SCH ×2 (08:16→16:13)
[2020-06-29] MEDS: PANTOprazole 40 MG TAB PO SCH (08:16)
[2020-06-29] MEDS: METOPROLOL TARTRATE 50 MG TAB PO SCH ×2 (08:16→20:03)
[2020-06-29] MEDS: SENNA 8.6 MG TAB PO SCH (08:17)
[2020-06-29] MEDS: ASCORBIC ACID 500 MG TAB PO SCH (08:17)
[2020-06-29] MEDS: POLYETHYLENE (MIRALAX) 17 GM PACK PO SCH ×2 (08:17→20:02)
[2020-06-29] MEDS: ESCITALOPRAM OXALATE 20 MG TAB PO SCH (08:17)
[2020-06-29] MEDS: MULTIVITAMIN TAB PO SCH (08:17)
[2020-06-29] MEDS: HYDROmorphone INJ 0.5 MG/0.5 ML SYR IV PRN (08:20)
[2020-06-29 09:49] LABS: Hematocrit (blood only) 33.3 % (42-52); Hemoglobin 9.9 g/dL (14.0-18.0); Mean Corpuscular Hemoglobin 29.7 pg (25-34); Mean Corpuscular Hgb Conc 29.7 g/dL (32-36); Nucleated RBC # (auto) 0.04 K/uL (0-0); Nucleated RBC % (auto) 0.3 %; Platelet Count 544 K/uL (130-400); RDW Coefficient of Variation 17.9 % (11.5-14.5); RDW Standard Deviation 61.4 fL (36.4-46.3); Red Blood Count 3.33 M/uL (4.7-6.1); White Blood Count 13.63 K/uL (4.8-10.8)
[2020-06-29 09:52] LABS: Basophils # (auto) 0.02 K/uL (0-0.2); Basophils % (auto) 0.1 %; Eosinophils # (auto) 0.14 K/uL (0-0.5); Immature Granulocytes # (auto) 0.27 K/uL (0.00-0.02); Lymphocytes # (auto) 6.41 K/uL (1.2-3.4); Monocytes # (auto) 1.31 K/uL (0.11-0.59); Monocytes % (auto) 9.6 %; Neutrophils # (auto) 5.48 K/uL (1.4-6.5); Neutrophils % (auto) 40.3 %
[2020-06-29 10:03] LABS: BUN Creatinine Ratio 19.1 (10-20); Creatinine Clr Calc Pharmacy 55.9 ml/min; Est GFR (African American) 71.3; Est GFR (Non-African American) 61.5; Potassium 4.2 mmol/L (3.5-5.1)
--- NOTE | 2020-06-29 11:18 | Pharmacy Report ---
Glycemic Control Progress Note - Date of Service June 29, 2020 - Scope Glycemic Pharmacist consulted for glycemic control to write orders per [facility] inpatient glycemic control protocol. - Objective Accuchecks BSG(last 24 hours):: 06/28/20 06/28/20 06/28/20 11:15 16:52 18:02 Glucose POC Glucose 99 58 L* 122 H 06/28/20 06/29/20 06/29/20 20:43 07:18 07:19 Glucose POC Glucose 86 67 L* 75 06/29/20 06/29/20 07:25 08:50 Glucose 63 L POC Glucose 91 - Recent Pertinent Medications The patient is currently receiving: * Basal insulin: Lantus 40 units every 24 hours * Correctional Insulin: Novolog Correction per scale ACHS Goal Range: Low 120 mg/dL - High 160 mg/dL Correction Factor: 15 mg/dL/unit * Prandial insulin: Per carb ratio of 1 unit per 5 grams CHO consumed - Outpatient Anti-Diabetic Meds Lantus 45 units in the morning metformin - Assessment & Plan ASSESSMENT: * See progress note from 06/20/2020 for more background info, in short: * Pt receiving SQ basal bolus insulin regimen for hyperglycemia secondary to baseline DM (outpatient regimen on hold). Currently on daptomycin for VRE in urine. * Patient is currently receiving an average of 49 units of insulin per day * 40 units of basal insulin * 9 units of prandial/correctional insulin * BSGs ranging 58 - 117 mg/dl over the past 24hrs * Changes needed to insulin regimen: * AM Fasting BSG = 67 mg/dl. This is below goal range for patient based on inpatient targets and co-morbidities. Therefore basal insulin will be reduced by half to 20 units for today. Scale established for tomorrow with 20 units if patient's BSG below 120 mg/dL and 30 units if BSG 120 mg/dL or greater. * Post-prandial BSGs trended downwards yesterday. Loosen CF/CR. * Total daily dose = ? units. Uncertain at this time. Patient had been steadily requiring around 60 units per day for several days in a row. Uncertain if patient having clinical change right now. PLAN FOR INPATIENT GLYCEMIC CONTROL: * Decreasing Lantus to 20 units SQ qAM * LOOSENING correction factor to 25 mg/dl/unit * LOOSENING carb ratio to 1 unit per 8 grams CHO consumed * Continuing goal range of Low 120 mg/dL - High 160 mg/dL RECOMMENDATIONS FOR DISCHARGE: * Awaiting discharge update to determine patient's path. Thank you.
[2020-06-29] MEDS: fentaNYL 12 MCG/HR TDSY TD SCH (12:55)
--- NOTE | 2020-06-29 13:44 | Hospitalist Progress Note ---
Date of Service June 29, 2020 Assessment & Plan (1) Acute respiratory failure with hypoxia: Resolved. Multifactorial including hypoventilation/splinting from numerous b/l rib fractures and pneumonia of LLL. Completed 7 days of cefepime Did have small hemothorax on right during last hospital stay but this has resolved. Recent tiny L pneumothorax also resolved. COVID-19 PCR negative. Patient does use [place] O2 at night-time chronically at home but remains w/o hypoxia during the day. (2) Sepsis: POA sepsis resolved. (3) Metabolic encephalopathy: Metabolic from UTI, pneumonia, etc. Head CT neg this admission. Nonfocal neuro exam during the hospital stay. Supportive care (4) NSTEMI (non-ST elevated myocardial infarction): Troponin peak 5.66. Recent echo with several wall motion abnormalities. Appreciate cardiology consult/recommendations. Cont statin and beta morales. Cont aspirin. Anticoagulation on hold due to thigh hematoma, recent right-sided hemothorax, etc. Poor candidate for any invasive testing. (5) Atrial flutter, paroxysmal: Converted back to NSR and has remained NSR since. Remains on digoxin and beta morales. Cont amiodarone 200mg BID. Anticoagulation on hold as noted above. (6) Fracture of multiple ribs of both sides: Recent hospital stay for right-sided fractures 2nd to fall. Now with multiple left-sided fractures also 2nd to fall. Cont pain control -- tylenol scheduled; lidoderm patches; dilaudid in mckenna of tramadol; toradol prn; fentanyl patch; oxycodone prn. Pain improved w/ recent addition of fentanyl patch. (7) Pneumothorax: 2nd to rib fractures. Left-sided. Tiny. Resolved on cxr. (8) Pneumomediastinum: 2nd to recent trauma. Small. No evidence of lingering pneumomediastinum. (9) Chronic diastolic CHF (congestive heart failure): Euvolemic/compensated. (10) Hematoma of left thigh: 2nd to trauma. eliquis still on hold. resumed 81mg asa daily. with resulting acute blood loss anemia. heat to promote resolution. pain meds prn. (11) Urinary retention: s/p aldana placement. urine cx with VRE. difficult to know if UTI caused retention or retention led to UTI. cont daptomycin, day 7 of 7. (12) Acute blood loss anemia: significant drop from 11.2 on 06/11/20 to 7s. 2nd to left thigh hematoma, blood draws, etc. s/p 1 unit PRBCs this admission. H/H stable since then. (13) Diabetes: appreciate pharmacy assistance. cont basal regimen. controlled. (14) Hypothyroidism: TSH 04/2020 wnl. Cont synthroid. (15) Chronic bronchitis: Cont home inhalers. Not in exacerbation. (16) Scalp laceration: s/p staple removal x 2 this admission. lac was from prior fall. lac healed (17) UTI (urinary tract infection): 2nd VRE cont daptomycin day #7 of 7 (18) DVT prophylaxis: chemical means on hold due to left-sided thigh hematoma. SCDs only. at bedside today Silvia is a RN [facility] [place]. Disposition: Home with home health services when final arrangements made. Palliative care consultation. Admission and Anticipated Discharge Date Admission Date: June 18, 2020 Subjective No new problems. MiraLAX twice daily induced a bowel movement. I spoke to his who now wants to take him home with hospice once final arrangements are made. 2 days the last day of daptomycin dosing. Review of Systems 2 Review of Systems: Constitutional-no fever or chills. Generalized weakness ENT-no blurred vision, no double vision, no epistaxis, no sore throat Respiratory-no cough, no wheezing, no shortness of breath Cardiac-no palpitations, no chest pain, no syncope GI-no nausea, vomiting, diarrhea, melena, hematochezia. MiraLAX twice daily dosing induced a bowel movement -no urinary retention, no urinary incontinence, no dysuria, no hematuria Musculoskeletal-no joint pain, no muscle tenderness Skin-no bruising, no rashes, no pruritus Neuro-no isolated weakness, no paresthesia, no weakness Psych-seems to be depressed Constitutional: + fatigue Gastrointestinal: + bloating and + constipation; no nausea Physical Exam Physical Exam: General-awake. Nonverbal with me HEENT-head atraumatic and normocephalic, TMs intact bilaterally, pupils equal and reactive to light, extraocular muscles intact Neck-no lymphadenopathy or thyromegaly, trachea midline Chest-clear to auscultation percussion. No rales wheezing or rhonchi Cardiac-regular rate and rhythm, normal S1 and S2, no murmurs Abdomen-normal bowel sounds, nontender, no hepatosplenomegaly Extremities-no cyanosis, clubbing, or edema Neuro-generalized weakness. No apparent focal motor deficits Psych-appears to be depressed Results & Data Results & Data ([facility]) Vital Signs (Past 12 Hours) Vital Signs Temp Pulse Pulse Pulse Resp BP Pulse Ox 06/29/20 11:30 36.8 C 54 L 18 109/63 92 06/29/20 09:51 67 06/29/20 07:42 18 06/29/20 07:29 36.8 C 69 18 114/57 L 95 06/29/20 04:22 36.8 C 65 19 119/62 94 06/29/20 01:45 60 Laboratory Results 06/29/20 08:50 06/29/20 08:50 PG Care Time/CCT Total # of Minutes Spent Total Time Spent with Patient: Total time spent is greater than 50% in coordination of care (as documented) at patient's floor/unit and/or counseling patient: Coding Level of Care Code 25306 Subseq Hosp Care Lvl 2 Diagnoses Acute respiratory failure with hypoxia J96.01 Sepsis A41.9 Metabolic encephalopathy G93.41 NSTEMI (non-ST elevated myocardial infarction) I21.4 Atrial flutter, paroxysmal I48.92 Fracture of multiple ribs of both sides S22.43XD Encounter type: subsequent encounter Fracture healing: with routine healing Fracture type: closed Pneumothorax J93.9 Pneumothorax type: unspecified pneumothorax Pneumomediastinum J98.2 Chronic diastolic CHF (congestive heart failure) I50.32 Hematoma of left thigh S70.12XA Encounter type: initial encounter Urinary retention R33.9 Acute blood loss anemia D62 Diabetes E11.69; Z79.4 Diabetes mellitus type: type 2 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 control 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 insulin use: with shelter use Diabetes mellitus complication status: with other specified complication Hypothyroidism E03.9 Hypothyroidism type: acquired Chronic bronchitis J42 Chronic bronchitis type: unspecified Scalp laceration S01.01XA UTI (urinary tract infection) N30.00 Urinary tract infection type: acute cystitis Hematuria presence: without hematuria DVT prophylaxis Z29.9 (1) Fracture of multiple ribs of both sides Encounter type: subsequent encounter Fracture healing: with routine healing Fracture type: closed Qualified Code(s): S22.43XD - Multiple fractures of ribs, bilateral, subsequent encounter for fracture with routine healing (2) Pneumothorax Pneumothorax type: unspecified pneumothorax Qualified Code(s): J93.9 - Pneumothorax, unspecified (3) Hematoma of left thigh Encounter type: initial encounter Qualified Code(s): S70.12XA - Contusion of left thigh, initial encounter (4) Diabetes Diabetes mellitus type: type 2 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 control 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 insulin use: with termite control 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 use Diabetes mellitus complication status: with other specified complication Qualified Code(s): E11.69 - Type 2 diabetes mellitus with other specified complication; Z79.4 - intermediate (current) use of insulin (5) Hypothyroidism Hypothyroidism type: acquired Qualified Code(s): E03.9 - Hypothyroidism, unspecified (6) Chronic bronchitis Chronic bronchitis type: unspecified Qualified Code(s): J42 - Unspecified chronic bronchitis (7) UTI (urinary tract infection) Urinary tract infection type: acute cystitis Hematuria presence: without hematuria Qualified Code(s): N30.00 - Acute cystitis without hematuria
[2020-06-29] MEDS: DAPTOmycin 575 MG in SYRINGE 0 ML IV SCH (16:06)
[2020-06-29] MEDS: DIGOXIN 0.125 MG TAB PO SCH (16:12)
[2020-06-29] MEDS: CYANOCOBALAMIN 500 MCG TABLET (VITAMIN B-12) PO SCH (20:02)
[2020-06-29] MEDS: FERROUS SULFATE 325 MG TAB PO SCH (20:03)
[2020-06-30] MEDS: LEVOTHYROXINE SODIUM 75 MCG TABLET PO SCH (06:01)
[2020-06-30] MEDS: oxyCODONE HCL IR 5 MG TAB (IMMEDIATE RELEASE) PO PRN ×2 (06:01→14:46)
[2020-06-30 07:12] LABS: Basophils # (auto) 0.03 K/uL (0-0.2); Basophils % (auto) 0.3 %; Eosinophils # (auto) 0.28 K/uL (0-0.5); Eosinophils % (auto) 2.7 %; Immature Granulocytes # (auto) 0.42 K/uL (0.00-0.02); Immature Granulocytes % (auto) 4.1 %; Lymphocytes # (auto) 4.27 K/uL (1.2-3.4); Lymphocytes % (auto) 41.4 %; Mean Corpuscular Hemoglobin 29.9 pg (25-34); Mean Corpuscular Hgb Conc 30.3 g/dL (32-36); Mean Corpuscular Volume 98.5 fL (80-100); Mean Platelet Volume 9.5 fL (7.4-10.4); Monocytes # (auto) 1.25 K/uL (0.11-0.59); Monocytes % (auto) 12.1 %; Neutrophils # (auto) 4.07 K/uL (1.4-6.5); Neutrophils % (auto) 39.4 %; Platelet Count 476 K/uL (130-400); RDW Coefficient of Variation 17.8 % (11.5-14.5); RDW Standard Deviation 61.8 fL (36.4-46.3); Red Blood Count 3.35 M/uL (4.7-6.1); White Blood Count 10.32 K/uL (4.8-10.8)
[2020-06-30 07:37] LABS: Calcium 8.6 mg/dl (8.5-10.1); Creatinine Clr Calc Pharmacy 52.4 ml/min; Est GFR (African American) 66.2; Est GFR (Non-African American) 57.1; Potassium 4.3 mmol/L (3.5-5.1)
[2020-06-30] MEDS: UMECLIDINIUM BROMIDE 62.5MCG/BLISTER 7 PUFFS/INHALER INH SCH (08:13)
[2020-06-30] MEDS: INSULIN ASPART 100 UNITS/ML 3 ML PEN SC SCH ×2 (08:13→12:12)
[2020-06-30] MEDS: NYSTATIN SUSP 500,000 U/5 ML UDC PO SCH ×2 (08:13→12:12)
[2020-06-30] MEDS: FLUTICASONE/VILANTEROL 100/25MCG 14 PUFFS/INHALER INH SCH (08:14)
[2020-06-30] MEDS: CHECK fentaNYL PATCH PLACEMENT SCH (08:14)
[2020-06-30] MEDS: AMIODARONE 200 MG TAB PO SCH (08:14)
[2020-06-30] MEDS: ACETAMINOPHEN 325 MG TAB PO SCH ×2 (08:15→12:11)
[2020-06-30] MEDS: ESCITALOPRAM OXALATE 20 MG TAB PO SCH (08:15)
[2020-06-30] MEDS: ASPIRIN 81 MG ECTAB PO SCH (08:15)
[2020-06-30] MEDS: POLYETHYLENE (MIRALAX) 17 GM PACK PO SCH (08:16)
[2020-06-30] MEDS: METOPROLOL TARTRATE 50 MG TAB PO SCH (08:16)
[2020-06-30] MEDS: INSULIN GLARGINE SOLOSTAR 100 UNITS/ML 3 ML PEN SC SCH (08:16)
[2020-06-30] MEDS: ASCORBIC ACID 500 MG TAB PO SCH (08:16)
[2020-06-30] MEDS: PANTOprazole 40 MG TAB PO SCH (08:16)
[2020-06-30] MEDS: SENNA 8.6 MG TAB PO SCH (08:16)
[2020-06-30] MEDS: MULTIVITAMIN TAB PO SCH (08:16)
[2020-06-30] MEDS: LIDOCAINE 5% 1 PATCH TD SCH (08:17)
[2020-06-30] MEDS: HYDROmorphone INJ 0.5 MG/0.5 ML SYR IV PRN (10:23)
--- NOTE | 2020-06-30 11:57 | Hospitalist Progress Note ---
Date of Service June 30, 2020 Assessment & Plan (1) Metabolic encephalopathy: Encephalopathy related to ongoing pain with rib fractures as well as pain meds Head CT neg this admission. Nonfocal neuro exam during the hospital stay. Supportive care (2) Recurrent falls: resulting in rib fractures, leg hematoma (3) Fracture of multiple ribs of both sides: Recent hospital stay for right-sided fractures 2nd to fall. Now with multiple left-sided fractures also 2nd to fall. Cont pain control -- tylenol scheduled; lidoderm patches; dilaudid in mckenna of tramadol; toradol prn Increase fentanyl patch to 25mcg. Cont oxycodone prn. Pain improved w/ recent addition of fentanyl patch. (4) UTI (urinary tract infection): 2nd VRE cont daptomycin day #7 of 7 on 06-29 Stop dapto (5) Chronic diastolic CHF (congestive heart failure): bilateral LE edema start SRIDHAR hose. (6) Sepsis: POA sepsis resolved. (7) Acute respiratory failure with hypoxia: Resolved. Multifactorial including hypoventilation/splinting from numerous b/l rib fractures and pneumonia of LLL. Completed 7 days of cefepime Did have small hemothorax on right during last hospital stay but this has resolved. Recent tiny L pneumothorax also resolved. COVID-19 PCR negative. Patient does use [place] O2 at night-time chronically at home but remains w/o hypoxia during the day. (8) NSTEMI (non-ST elevated myocardial infarction): Troponin peak 5.66. Recent echo with several wall motion abnormalities. Appreciate cardiology consult/recommendations. Cont statin and beta morales. Cont aspirin. Anticoagulation on hold due to thigh hematoma, recent right-sided hemothorax, etc. Poor candidate for any invasive testing. (9) Pneumothorax: 2nd to rib fractures. Left-sided. Tiny. Resolved on cxr. (10) Pneumomediastinum: 2nd to recent trauma. Small. No evidence of lingering pneumomediastinum. (11) Urinary retention: s/p aldana placement. urine cx with VRE. difficult to know if UTI caused retention or retention led to UTI. completed dapto on 06-29 (12) Hematoma of left thigh: 2nd to trauma. eliquis still on hold. resumed 81mg asa daily. with resulting acute blood loss anemia. heat to promote resolution. pain meds prn. (13) Acute blood loss anemia: significant drop from 11.2 on 06/11/20 to 7s. 2nd to left thigh hematoma, blood draws, etc. s/p 1 unit PRBCs this admission. H/H stable since then. (14) Atrial flutter, paroxysmal: Converted back to NSR and has remained NSR since. Remains on digoxin and beta morales. Cont amiodarone 200mg BID. Anticoagulation on hold as noted above. (15) Diabetes: appreciate pharmacy assistance. cont basal regimen. controlled. (16) Hypothyroidism: TSH 04/2020 wnl. Cont synthroid. (17) Chronic bronchitis: Cont home inhalers. Not in exacerbation. (18) Scalp laceration: s/p staple removal x 2 this admission. lac was from prior fall. lac healed (19) DVT prophylaxis: SCDs only. at bedside today Silvia is a RN at group home near [place]. Disposition: Home with hospice Admission and Anticipated Discharge Date Admission Date: June 18, 2020 Subjective Patient having lower abdominal pain today after a BM this morning. No energy. Patient has no other complaints, but just received pain medication, so not very communicative. at bedside anticipating taking him home with hospice. Review of Systems Review of Systems: Unobtainable due to mental health condition Physical Exam Constitutional: well developed and well nourished; no acute distress grimacing with any movement Eyes: PERRL, conjunctivae normal, anicteric sclerae ENMT: Mouth: oral mucous membranes not dry Respiratory: normal respiratory effort and + tachypneic; no respiratory distress and no labored breathing Auscultation: lungs clear to auscultation bilaterally; no crackles, no rales, no rhonchi and no wheezes Cardiovascular: Rate/Rhythm: regular rate and regular rhythm Heart Sounds: no murmur and no cardiac rub Vessels: normal peripheral pulses and radial pulses present; no JVD Extremities: + edema Gastrointestinal (Abdomen): Inspection/Auscultation: abdomen normal to inspection and normal bowel sounds; abdomen not distended Percussion/Palpation: + abdomen tender and abdomen soft; no guarding, abdomen not rigid and no hepatosplenomegaly Musculoskeletal: Head/Neck/Chest: normocephalic and head atraumatic Spine: no cervical spinal tenderness, no cervical muscular tenderness, no thoracic spinal tenderness and no lumbar spinal tenderness Skin: no rashes, warm and dry Neurologic: CN's II-XI intact bilaterally and moves all extremities Motor/Sensory: no tremor and no sensory deficit Psychiatric: Orientation: + not alert Apperance: appropriately groomed; not disheveled Affect: + anxious affect; no tearful affect Genitourinary: no Aldana catheter Results & Data Results & Data ([facility]) Vital Signs (Past 12 Hours) Vital Signs Temp Pulse Pulse Resp BP BP Pulse Ox 06/30/20 11:19 36.7 C 53 L 20 108/65 90 06/30/20 09:57 53 L 06/30/20 08:25 36.7 C 53 L 18 114/62 92 06/30/20 03:00 36.8 C 53 L 20 127/62 95 Laboratory Results Abnormal lab results 06/29/20 06/29/20 06/30/20 Range/Units 16:10 20:27 06:38 RBC 3.35 L (4.7-6.1) M/uL Hgb 10.0 L (14.0-18.0) g/dL Hct 33.0 L (42-52) % MCHC 30.3 L (32-36) g/dL RDW Std Deviation 61.8 H (36.4-46.3) fL RDW Coeff of Ruddy 17.8 H (11.5-14.5) % Plt Count 476 H (130-400) K/uL Lymph # (Auto) 4.27 H (1.2-3.4) K/uL [place] # (Auto) 1.25 H (0.11-0.59) K/uL Immature Gran # (Auto) 0.42 H (0.00-0.02) K/uL Chloride (98-107) mmol/L BUN (7-18) mg/dl POC Glucose 125 H 237 H (70-99) mg/dl 06/30/20 06/30/20 06/30/20 Range/Units 06:38 07:31 11:38 RBC (4.7-6.1) M/uL Hgb (14.0-18.0) g/dL Hct (42-52) % MCHC (32-36) g/dL RDW Std Deviation (36.4-46.3) fL RDW Coeff of Ruddy (11.5-14.5) % Plt Count (130-400) K/uL Lymph # (Auto) (1.2-3.4) K/uL [place] # (Auto) (0.11-0.59) K/uL Immature Gran # (Auto) (0.00-0.02) K/uL Chloride 114 H (98-107) mmol/L BUN 22 H (7-18) mg/dl POC Glucose 116 H 179 H (70-99) mg/dl Medications Administered Current Inpatient Medications Acetaminophen (Acetaminophen 325 Mg Tab) 650 mg PO Q4HWA [facility] Stop: 07/18/20 19:59 Last Admin: 06/30/20 08:15 Dose: 650 mg Documented by: Amiodarone HCl (Amiodarone 200 Mg Tab) 200 mg PO BIDM [facility] Stop: 07/21/20 07:59 Last Admin: 06/30/20 08:14 Dose: 200 mg Documented by: Ascorbic Acid (Ascorbic Acid 500 Mg Tab) [facility] Stop: 07/19/20 08:59 Last Admin: 06/30/20 08:16 Dose: 500 mg Documented by: Aspirin (Aspirin 81 Mg Ectab) 81 [facility] Stop: 07/27/20 09:29 Last Admin: 06/30/20 08:15 Dose: 81 mg Documented by: Cyanocobalamin (Cyanocobalamin 500 Mcg Tablet (Vitamin B-12)) 500 mcg PO [facility] Stop: 07/18/20 20:59 Last Admin: 06/29/20 20:02 Dose: 500 mcg Documented by: Digoxin (Digoxin 0.125 Mg Tab) 0.125 mg PO DAILY@1600 [facility] Stop: 07/19/20 15:59 Last Admin: 06/29/20 16:12 Dose: Not Given Documented by: Escitalopram Oxalate (Escitalopram Oxalate 20 Mg Tab) 20 mg PO QAM [facility] Stop: 07/19/20 08:59 Last Admin: 06/30/20 08:15 Dose: 20 mg Documented by: Fentanyl (Fentanyl 12 Mcg/Hr Tdsy) 12 mcg TD Q3D [facility] Stop: 07/07/20 12:59 Last Admin: 06/29/20 12:55 Dose: 12 mcg Documented by: Ferrous Sulfate (Ferrous Sulfate 325 Mg Tab) 325 mg PO [facility] Stop: 07/18/20 20:59 Last Admin: 06/29/20 20:03 Dose: 325 mg Documented by: Fluticasone/Vilanterol (Fluticasone/Vilanterol 100/25mcg 14 Puffs/Inhaler) 1 puffs INH DAILY [facility] Stop: 07/19/20 08:59 Last Admin: 06/30/20 08:14 Dose: 1 puffs Documented by: Hydromorphone HCl (Hydromorphone Inj 0.5 Mg/0.5 Ml Syr) 0.5 mg IV Q4H PRN PRN Reason: Pain Stop: 07/05/20 11:22 Last Admin: 06/30/20 10:23 Dose: 0.5 mg Documented by: Daptomycin 575 mg/ Syringe 11.5 mls @ 5.75 mls/min IV DAILY@1600 [facility]; Protocol Stop: 07/03/20 15:14 Last Admin: 06/29/20 16:06 Dose: 5.75 mls/min Documented by: Insulin Aspart (Insulin Aspart 100 Units/Ml 3 Ml Pen) 0 units SC ACHS [facility] Stop: 07/19/20 12:14 Last Admin: 06/30/20 08:13 Dose: Not Given Documented by: Insulin Glargine (Insulin Glargine Solostar 100 Units/Ml 3 Ml Pen) 25 units SC [facility]; Protocol Stop: 07/31/20 08:59 Levothyroxine Sodium (Levothyroxine Sodium 75 Mcg Tablet) 75 mcg PO Q2D@0630 [facility] Stop: 07/19/20 06:29 Last Admin: 06/29/20 06:20 Dose: 75 mcg Documented by: Levothyroxine Sodium (Levothyroxine Sodium 75 Mcg Tablet) 37.5 mcg PO Q2D@0630 [facility] Stop: 07/20/20 06:29 Last Admin: 06/30/20 06:01 Dose: 37.5 mcg Documented by: Lidocaine (Lidocaine 5% 1 Patch) 3 patch TD [facility] Stop: 07/25/20 08:59 Last Admin: 06/30/20 08:17 Dose: 3 patch Documented by: Metoprolol Tartrate (Metoprolol Tartrate 50 Mg Tab) 50 mg PO BID [facility] Stop: 07/21/20 08:59 Last Admin: 06/30/20 08:16 Dose: Not Given Documented by: Multivitamins (Multivitamin Tab) 1 tab PO [facility] Stop: 07/19/20 08:59 Last Admin: 06/30/20 08:16 Dose: 1 tab Documented by: Nystatin (Nystatin Susp 500,000 U/5 Ml Udc) 5 ml PO QID [facility] Stop: 07/05/20 16:59 Last Admin: 06/30/20 08:13 Dose: 5 ml Documented by: Ondansetron HCl (Ondansetron Inj 2 Mg/Ml 2 Ml Vial) 4 mg IV Q6H PRN PRN Reason: Nausea Stop: 07/18/20 16:50 Last Admin: 06/26/20 19:41 Dose: 4 mg Documented by: Oxycodone HCl (Oxycodone Hcl Ir 5 Mg Tab (Immediate Release)) 5 mg PO Q6H PRN PRN Reason: Pain Stop: 07/07/20 10:42 Last Admin: 06/30/20 06:01 Dose: 5 mg Documented by: Pantoprazole Sodium (Pantoprazole 40 Mg Tab) 40 mg PO QAM [facility] Stop: 07/19/20 08:59 Last Admin: 06/30/20 08:16 Dose: 40 mg Documented by: Polyethylene Glycol (Polyethylene (Miralax) 17 Gm Pack) 17 gm PO BID [facility] Stop: 07/28/20 20:59 Last Admin: 06/30/20 08:16 Dose: 17 gm Documented by: Sennosides (Senna 8.6 Mg Tab) 17.2 mg PO QAM [facility] Stop: 07/27/20 08:59 Last Admin: 06/30/20 08:16 Dose: 17.2 mg Documented by: Simvastatin (Simvastatin 40 Mg Tab) 40 mg PO HS [facility] Stop: 07/18/20 20:59 Last Admin: 06/22/20 20:39 Dose: 40 mg Documented by: Sodium Biphosphate/Sodium Phosphate (Sod Phosphate/Sod Biphosphate Enema 132 Ml Btl) 132 ml SC DAILY PRN PRN Reason: Constipation Stop: 07/27/20 21:13 Umeclidinium Cuney (Umeclidinium Cuney 62.5mcg/Blister 7 Puffs/Inhaler) 1 puffs INH DAILY [facility] Stop: 07/19/20 08:59 Last Admin: 06/30/20 08:13 Dose: 1 puffs Documented by: PG Care Time/CCT Total # of Minutes Spent Total Time Spent with Patient: Total time spent is greater than 50% in coordination of care (as documented) at patient's floor/unit and/or counseling patient: Coding Level of Care Code 20648 Subseq Hosp Care Lvl 3 Diagnoses Metabolic encephalopathy G93.41 Recurrent falls R29.6 Fracture of multiple ribs of both sides S22.43XD Encounter type: subsequent encounter Fracture healing: with routine healing Fracture type: closed UTI (urinary tract infection) N30.00 Urinary tract infection type: acute cystitis Hematuria presence: without hematuria Chronic diastolic CHF (congestive heart failure) I50.32 Sepsis A41.9 Sepsis type: sepsis due to unspecified organism Sepsis acute organ dysfunction status: unspecified Acute respiratory failure with hypoxia J96.01 NSTEMI (non-ST elevated myocardial infarction) I21.4 Pneumothorax J93.9 Pneumothorax type: unspecified pneumothorax Pneumomediastinum J98.2 Urinary retention R33.9 Hematoma of left thigh S70.12XA Encounter type: initial encounter Acute blood loss anemia D62 Atrial flutter, paroxysmal I48.92 Diabetes E11.69; Z79.4 Diabetes mellitus type: type 2 Diabetes mellitus group home insulin use: with computer terminal operator use Diabetes mellitus complication status: with other specified complication Hypothyroidism E03.9 Hypothyroidism type: acquired Chronic bronchitis J42 Chronic bronchitis type: unspecified Scalp laceration S01.01XD Encounter type: subsequent encounter DVT prophylaxis Z29.9 (1) Sepsis Sepsis type: sepsis due to unspecified organism Sepsis acute organ dysfunction status: unspecified Qualified Code(s): A41.9 - Sepsis, unspecified organism (2) Fracture of multiple ribs of both sides Encounter type: subsequent encounter Fracture healing: with routine healing Fracture type: closed Qualified Code(s): S22.43XD - Multiple fractures of ribs, bilateral, subsequent encounter for fracture with routine healing (3) Pneumothorax Pneumothorax type: unspecified pneumothorax Qualified Code(s): J93.9 - Pneumothorax, unspecified (4) Hematoma of left thigh Encounter type: initial encounter Qualified Code(s): S70.12XA - Contusion of left thigh, initial encounter (5) Diabetes Diabetes mellitus type: type 2 Diabetes mellitus computer terminal operator insulin use: with group home use Diabetes mellitus complication status: with other specified complication Qualified Code(s): E11.69 - Type 2 diabetes mellitus with other specified complication; Z79.4 - MCFP (current) use of insulin (6) Hypothyroidism Hypothyroidism type: acquired Qualified Code(s): E03.9 - Hypothyroidism, unspecified (7) Chronic bronchitis Chronic bronchitis type: unspecified Qualified Code(s): J42 - Unspecified chronic bronchitis (8) Scalp laceration Encounter type: subsequent encounter Qualified Code(s): S01.01XD - Laceration without foreign body of scalp, subsequent encounter (9) UTI (urinary tract infection) Urinary tract infection type: acute cystitis Hematuria presence: without hematuria Qualified Code(s): N30.00 - Acute cystitis without hematuria
[2020-06-30] MEDS: fentaNYL 25 MCG/HR TDSY TD SCH ×2 (12:28→12:29)
--- NOTE | 2020-06-30 15:22 | Discharge Summary ---
Date of Service June 30, 2020 Admission HPI Per Admitting Provider Maninder Gibson is an 80-year-old male who presents to the ER with acute rib fractures, unable to cope at home, altered mental state, decreased appetite and poor oral intake. History was taken from his at bedside due to patient's altered mental state. The patient has had multiple falls recently. He was recently hospitalized from June 01-2019 while getting up to walk to the bathroom he appeared to have a mechanical fall with his cane slipping at that time causing multiple right-sided rib fractures. On this occasion his has noted he has been more confused when taking tramadol. He came to the ER yesterday due to another fall causing a head laceration, left apical pneumothorax and acute fractures of his left ribs. He was discharged from the emergency room but became increasingly confused at home. This was exacerbated whenever he took tramadol. Today he was more lethargic and short of breath, and home health recommended he return to the ER for further evaluation. In addition he was noted to have a large left leg hematoma today with Hgb drop from 11.2 -> 9.9. He has had multiple previous hospitalizations with similar presentations over the past 1 to 2 years. On prior occasions he has been diagnosed with a GI bleed requiring blood/iron transfusions, diastolic congestive heart failure, PNA, COPD exacerbation and atrial flutter with rapid ventricular rates. He had a prior m yocardial perfusion scan in May 2019 suggestive of inferior ischemia however follow-up with cardiology given patient comorbidities and lack of symptoms at current activity levels recommended avoiding further invasive testing at that time. No lateralizing extremity weakness on one side. No change in speech, vision, hearing. In the ER he had extensive imaging most concerning for multiple acute left-sided rib fractures and left thigh hematoma. This correlates with his pain on the left chest wall. Patient is aware is in hospital and able to recognize his . He does not remember me from last admission. Principal Diagnosis rib fractures 2' to frequent falls Discharge Exam Constitutional well developed and well nourished; no acute distress Eyes PERRL, conjunctivae normal, anicteric sclerae ENMT Mouth: oral mucous membranes not dry Respiratory normal respiratory effort and + tachypneic; no respiratory distress and no labored breathing Auscultation: lungs clear to auscultation bilaterally; no crackles, no rales, no rhonchi and no wheezes Cardiovascular Rate/Rhythm: regular rate and regular rhythm Heart Sounds: no murmur and no cardiac rub Vessels: normal peripheral pulses and radial pulses present; no JVD Extremities: + edema Gastrointestinal (Abdomen) Inspection/Auscultation: abdomen normal to inspection and normal bowel sounds; abdomen not distended Percussion/Palpation: + abdomen tender and abdomen soft; no guarding, abdomen not rigid and no hepatosplenomegaly Musculoskeletal Head/Neck/Chest: normocephalic and head atraumatic Spine: no cervical spinal tenderness, no cervical muscular tenderness, no thoracic spinal tenderness and no lumbar spinal tenderness Skin no rashes, warm and dry Neurologic CN's II-XI intact bilaterally and moves all extremities Motor/Sensory: no tremor and no sensory deficit Psychiatric Orientation: + not alert Apperance: appropriately groomed; not disheveled Affect: + anxious affect; no tearful affect Discharge Data Allergies Allergy/AdvReac Type Severity Reaction Status Date / Time moxifloxacin Allergy Severe throat Verified 06/18/20 14:50 swelling ofloxacin Allergy Severe SWELLING Verified 06/18/20 14:50 AROUND FACE Quinolones Allergy Severe ANAPHYLAXIS Verified 06/18/20 14:50 formoterol Allergy Intermediate RASH Verified 06/18/20 14:50 Sulfa (Sulfonamide Allergy Intermediate severe red Verified 06/18/20 14:50 Antibiotics) rash Consultations 06/18/20 14:04 ED Decision to Admit Stat 06/18/20 14:25 ED Decision to Admit Stat 06/19/20 08:28 Consult Cardiology Routine 06/28/20 10:18 Consult Palliative Care Routine Ordered Studies 06/18/20 12:42 CT abd pelvis IV con only Stat CT chest w con Stat CT head/brain wo con Stat Hospital Course (1) Metabolic encephalopathy: Encephalopathy related to ongoing pain with rib fractures as well as pain meds Head CT neg this admission. Nonfocal neuro exam during the hospital stay. Supportive care (2) Recurrent falls: resulting in rib fractures, leg hematoma (3) Fracture of multiple ribs of both sides: Recent hospital stay for right-sided fractures 2nd to fall. Now with multiple left-sided fractures also 2nd to fall. Cont pain control -- tylenol scheduled; lidoderm patches; dilaudid in mckenna of tramadol; toradol prn Increase fentanyl patch to 25mcg. Cont oxycodone prn. Pain improved w/ recent addition of fentanyl patch. (4) UTI (urinary tract infection): 2nd VRE cont daptomycin day #7 of 7 on 06-29 Stop dapto (5) Chronic diastolic CHF (congestive heart failure): bilateral LE edema start SRIDHAR hose. (6) Sepsis: POA sepsis resolved. (7) Acute respiratory failure with hypoxia: Resolved. Multifactorial including hypoventilation/splinting from numerous b/l rib fractures and pneumonia of LLL. Completed 7 days of cefepime Did have small hemothorax on right during last hospital stay but this has resolved. Recent tiny L pneumothorax also resolved. COVID-19 PCR negative. Patient does use NC O2 at night-time chronically at home but remains w/o hypoxia during the day. (8) NSTEMI (non-ST elevated myocardial infarction): Troponin peak 5.66. Recent echo with several wall motion abnormalities. Appreciate cardiology consult/recommendations. Cont statin and beta morales. Cont aspirin. Anticoagulation on hold due to thigh hematoma, recent right-sided hemothorax, etc. Poor candidate for any invasive testing. (9) Pneumothorax: 2nd to rib fractures. Left-sided. Tiny. Resolved on cxr. (10) Pneumomediastinum: 2nd to recent trauma. Small. No evidence of lingering pneumomediastinum. (11) Urinary retention: s/p aldana placement. urine cx with VRE. difficult to know if UTI caused retention or retention led to UTI. completed dapto on 06-29 (12) Hematoma of left thigh: 2nd to trauma. eliquis still on hold. resumed 81mg asa daily. with resulting acute blood loss anemia. heat to promote resolution. pain meds prn. (13) Acute blood loss anemia: significant drop from 11.2 on 06/11/20 to 7s. 2nd to left thigh hematoma, blood draws, etc. s/p 1 unit PRBCs this admission. H/H stable since then. (14) Atrial flutter, paroxysmal: Converted back to NSR and has remained NSR since. Remains on digoxin and beta morales. Cont amiodarone 200mg BID. Anticoagulation on hold as noted above. (15) Diabetes: decreased lantus to 25units check blood sugar at least twice daily on discharge home (16) Hypothyroidism: TSH 04/2020 wnl. Cont synthroid. (17) Chronic bronchitis: Cont home inhalers. Not in exacerbation. (18) Scalp laceration: s/p staple removal x 2 this admission. lac was from prior fall. lac healed (19) DVT prophylaxis: SCDs only. at bedside today Silvia is a RN at [facility] [place]. Disposition: Home with hospice Total Time Total Time Spent Total Time Spent (In Minutes): 60 Total Time Includes: Examination of the Patient, Discharge Planning, Medication Reconciliation, Communication With Other Providers and Other (e-prescribing narcotics) Discharge Plan Discharge Items Patient Disposition: Hospice - Home Reason For Visit: AMS, RIB FRACTURES, THIGH HEMATOMA, ANEMIA, PATRICK Discharge Diagnosis: rib fractures thigh hematoma frequent falls Condition on Discharge: Fair Activity: Resume your previous activity Non-emergency contact: Primary Care Provider Call non-emergency contact if: you have any medication questions Follow-up/Referrals: Howard Gunderson MD [Primary Care Provider] - Diet: Carb Consistent or DM2 Diet Texture: Easy to Chew Addtl Attending Provider Instructions: 1. Decrease your lantus to 25 units daily. 2. Monitor your blood sugar at least twice daily. If you are having low blood sugars or high blood sugars, call our primary care physician. 3. You were not receiving your lasix while you were in the hospital. Because you are developing edema, I'd like you to restart it, but at a lower dose 20mg daily. 4. Stop taking eliquis due to your thigh hematoma. Discuss with your primary care doctor if and when to resume it. 5. Start taking amiodarone twice daily to help control your atrial fibrillation 6. Start taking aspirin 81mg daily 7. Continue to take metoprolol tartrate, but I have increased your dose to 50mg twice daily 8. We have started you on fentanyl patch 25mcg. Wear it for three days and then remove the old patch before applying a new patch. I have given you a small supply -- you will need to get more from your hospice providers. 9. Take oxycodone 5mg by mouth every 6 hours as needed for pain. Again, I have given you only a small supply -- you will need to get more from the hospice providers. 10. These narcotics will make you constipated, so take miralax 17g by mouth twice daily. 11. If you are still constipated despite taking miralax, add other over the counter stool softeners (daily docusate - senna). 12. Take tylenol 650mg by mouth every 4 hours while awake. 13. Contact your hospice provider first for any questions pertaining to pain or uncontrolled discomfort. 14. If caretakers have difficulty waking up Maninder or if he has decreased breathing, then he may have taken too many narcotics. Treat him with narcan or call 911. Pending Studies at Discharge: No Stand-Alone Forms: My [facility], Smoking Cessation Medications and DC Order Prescriptions: New polyethylene glycol 3350 [Miralax] 17 gram Powder In Packet 17 g PO BID 30 Days Qty: 14 RF: 0 metoprolol tartrate 50 mg Tablet 50 mg PO BID Qty: 60 RF: 0 acetaminophen 325 mg Tablet 650 mg PO Q4HWA 30 Days RF: 0 aspirin 81 mg Tablet,Delayed Release (Dr/Ec) 81 mg PO QAM 30 Days Qty: 30 RF: 0 amiodarone 200 mg Tablet 200 mg PO BIDM Qty: 60 RF: 0 Narcan 4 mg/actuation spray,non-aerosol 1 spray intranasal Q2M PRN (Reason: opioid overdose) Qty: 2 RF: 0 fentanyl 25 mcg/hr patch 72 hour 1 patch transdermal Q72H Qty: 5 RF: 0 oxycodone 5 mg tablet 5 mg PO Q6H PRN (Reason: pain) Qty: 30 RF: 0 Continued albuterol sulfate 2.5 mg /3 mL (0.083 %) solution for nebulization 2.5 mg INH Q4H PRN (Reason: shortness of breath or wheezing) Qty: 360 RF: 5 [id number] [Trelegy Ellipta] 100-62.5-25 mcg blister with device 1 inh inhalation QAM RF: 0 simvastatin 80 mg tablet 40 mg PO HS Qty: 90 RF: 3 (DME) Lift Chair Misc See Rx Instructions .ROUTE .MEDSUPPLY Qty: 1 RF: 0 metformin 1,000 mg tablet 1,000 mg PO BID Qty: 180 RF: 3 levothyroxine [Synthroid] 75 mcg tablet 37.5 - 75 mcg PO DAILY RF: 0 magnesium oxide 500 mg tablet 500 mg PO BID RF: 0 albuterol sulfate 90 mcg/actuation HFA aerosol inhaler 2 puffs INH Q4H PRN (Reason: Shortness Of Breath) Qty: 8.5 RF: 11 escitalopram oxalate 20 mg tablet 20 mg PO QAM Qty: 90 RF: 3 multivitamin with minerals [Multiple Vitamin-Minerals] Tablet 1 tab PO QAM RF: 0 omeprazole 40 mg capsule,delayed release(DR/EC) 40 mg PO QAM RF: 0 ferrous sulfate 325 mg (65 mg iron) tablet,delayed release (DR/EC) 325 mg PO HS RF: 0 lidocaine 5 % Adhesive Patch,Medicated 3 patch transdermal QAM Qty: 60 RF: 0 cyanocobalamin (vitamin B-12) [Vitamin B-12] 500 mcg Tablet 500 mcg PO HS RF: 0 ascorbic acid (vitamin C) [Vitamin C] 500 mg Tablet 500 mg PO QAM RF: 0 digoxin [Digox] 125 mcg (0.125 mg) tablet 125 mcg PO QAM RF: 0 Changed furosemide 20 mg tablet 20 mg PO DAILY PRN (Reason: weight gain of >2-3 pounds 1-2 days) Qty: 30 RF: 0 Lantus Solostar U-100 Insulin 100 unit/mL (3 mL) insulin pen 25 unit SC QAM Qty: 0 RF: 0 Discontinued (DME) Lift Chair Misc See Rx Instructions .ROUTE .MEDSUPPLY Qty: 1 RF: 0 (DME) lancets [Microlet Lancet] Misc See Rx Instructions .ROUTE .MEDSUPPLY Qty: 100 RF: 5 tramadol 50 mg tablet 50 mg PO Q6H PRN (Reason: pain) Qty: 20 RF: 0 metoprolol tartrate 37.5 mg tablet 37.5 mg PO BID Qty: 60 RF: 2 Eliquis 5 mg tablet 5 mg PO BID Qty: 60 RF: 5 Discharge Orders: Discharge Order (Routine); Ordered 06/30/20 Ordered By: Uyen Hoff/Other Patient Handouts: High Blood Sugar (Hyperglycemia), Hypoglycemia (Low Blood Sugar), Managing Type 2 Diabetes Admission Data Admit Date/Time: 06/18/20 15:16 Attending Provider: Uyen Cutler Admit Provider: Tarik Lindquist Primary Care Provider: Howard Gunderson Other Providers: Tarik Lindquist ; Igor Jewell ; [facility] ; [place] ; Lita,[facility] ; Catalina Edmondson Coding Level of Care Code D/C Day Management >30 mins Diagnoses Metabolic encephalopathy G93.41 Recurrent falls R29.6 Fracture of multiple ribs of both sides S22.43XD Encounter type: subsequent encounter Fracture healing: with routine healing Fracture type: closed UTI (urinary tract infection) N30.00 Urinary tract infection type: acute cystitis Hematuria presence: without hematuria Chronic diastolic CHF (congestive heart failure) I50.32 Sepsis A41.9 Sepsis type: sepsis due to unspecified organism Sepsis acute organ dysfunction status: unspecified Acute respiratory failure with hypoxia J96.01 NSTEMI (non-ST elevated myocardial infarction) I21.4 Pneumothorax J93.9 Pneumothorax type: unspecified pneumothorax Pneumomediastinum J98.2 Urinary retention R33.9 Hematoma of left thigh S70.12XA Encounter type: initial encounter Acute blood loss anemia D62 Atrial flutter, paroxysmal I48.92 Diabetes E11.69; Z79.4 Diabetes mellitus type: type 2 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
[2020-06-30] MEDS ORDERED: CHECK fentaNYL PATCH PLACEMENT SCH (16:00)
[2020-07-01] MEDS ORDERED: INSULIN GLARGINE SOLOSTAR 100 UNITS/ML 3 ML PEN SC SCH (09:00)
== END 2020-06-30 17:30 | disposition hospice, home (50) | DRG 871 ==
LOC: ED 12:22 → 2W 15:16 → SUATTDRO 15:16 → 2W 15:57